=== PATIENT | female | born 1970 | race Hispanic/Latino ===

== ENCOUNTER 2017-09-25 19:10 | Emergency (ER) | payer OTHER ==
[2017-09-25 19:57] LABS: Urine Bacteria 20-50 /HPF (<20); Urine Culture Reflex Order REFLEXED
[2017-09-25 19:58] LABS: Urine Blood TRACE (NEG); Urine Glucose NEGATIVE (NEG); Urine Protein 2+ (NEG); Urine Specific Gravity 1.025 (1.005-1.030); Urine pH 5.5 (5.0-7.0)
[2017-09-25 19:59] LABS: Absolute Lymphocytes (CBC) 1.5 K/uL (0.7-4.9); Absolute Monocytes 0.6 K/uL (0.1-1.3); Absolute Neutrophil 4.8 K/uL (1.8-8.0); Basophils % 2.9 % (0-1.3); Eosinophils % 0.2 % (0-4.4); Hematocrit 32.9 % (36.0-45.0); Lymphocytes % 20.8 % (15.3-44.8); MCH 28.7 pg (27.0-35.0); MCV 85.7 fL (80-100); MPV 10.1 fL (7.6-11.3); Monocytes % 8.4 % (3.3-12.3); RBC Red Blood Cell Count 3.84 M/uL (3.86-4.86); Urine Mucus 4+ /HPF (NONE SEEN)
[2017-09-25 20:09] LABS: Bicarbonate 28 mEq/L (21-31); Glucose Level 168 mg/dL (65-120); Lipase 25 U/L (22-51); Potassium 3.1 mEq/L (3.6-5.0); Sodium Level 136 mEq/L (135-145)
[2017-09-25 20:15] LABS: ALT/SGPT 19 IU/L (10-60); AST/SGOT 21 IU/L (10-42); Albumin 4.5 g/dL (3.2-5.5); Alkaline Phosphatase 83 IU/L (42-121); Amylase Level 46 U/L (28-100); BUN Blood Urea Nitrogen 15 mg/dL (6-20); Bilirubin Direct < 0.1 mg/dL (0-0.2); Bilirubin Total 0.3 mg/dL (0.3-1.2); Protein, Total 8.3 g/dL (6.0-8.3)
[2017-09-25] MEDS ORDERED: ONDANSETRON 4 MG/2 ML VIAL ONE (20:16)
[2017-09-25] MEDS ORDERED: NA CHLORIDE 0.9% 1,000 ML ONE (20:16)
[2017-09-25] MEDS ORDERED: POTASSIUM CL SA 10 MEQ TAB PO ONE (21:42)
--- NOTE | 2017-09-25 22:11 | ER ---
Nurse's Notes [facility] Name: Roya Anne Age: 47 yrs Sex: Female : 1970 Arrival Date: 09/25/2017 Time: 19:13 Bed 17 Private MD: Olga Diallo Diagnosis: Vomiting;Diarrhea, unspecified Presentation: 09/25 19:15 Presenting complaint: Patient states: Patient reports vomiting diarrhea and chills for ao the past 3 days. 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 Patient also reports left side flank pain. Transition of care: patient was not received from another setting of care. Onset of symptoms was September 23, 2017. Risk Assessment: Do you want to hurt yourself or someone else? Patient reports no desire to harm self or others. Initial Sepsis Screen: Does the patient meet any 2 criteria? No. Patient's initial sepsis screen is negative. Does the patient have a suspected source of infection? No. Patient's initial sepsis screen is negative. Care prior to arrival: None. 19:15 Method Of Arrival: Ambulatory ao 19:15 Acuity: AGATA 3 ao Triage Assessment: 19:21 General: Appears in no apparent distress. uncomfortable, Behavior is calm, cooperative, ao appropriate for age. Pain: Complains of pain in left side flank. GI: Reports lower abdominal pain, nausea. 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 - Social history:: Smoking status: Patient/guardian denies using tobacco, Patient/guardian denies using alcohol, street drugs. - Ebola Screening: : Patient negative for fever greater than or equal to 101.5 degrees Fahrenheit, and additional compatible Ebola Virus Disease symptoms Patient denies exposure to infectious person Patient denies travel to an Ebola-affected area in the 21 days before illness onset. Screenin:55 Abuse screen: Denies threats or abuse. Denies injuries from another. Nutritional rv screening: No deficits noted. Tuberculosis screening: No symptoms or risk factors identified. Fall Risk None identified. Assessment: 19:51 General: Appears in no apparent distress. comfortable, Behavior is calm, cooperative, rv patient came in because of nausea and vomiting. having flank pain left side. reports having fever but undocumented. she came in ambulatory.. Pain: Complains of pain in left low back and left mid back. Neuro: Level of Consciousness is awake, alert, obeys commands, Oriented to person, place, time, situation. Cardiovascular: Capillary refill < 3 seconds. Respiratory: Airway is patent. GI: Reports nausea, vomiting. : Reports flank pain. EENT: No signs and/or symptoms were reported regarding the EENT system. Derm: Skin is intact. Musculoskeletal: No signs and/or symptoms reported regarding the musculoskeletal system. 21:54 Reassessment: patient is comfortable and asleep. GI: Abdomen is flat. rv 22:20 Reassessment: patient verbalizes improvement.. discontinued IV and patient is rv discharged. instructions explained and given. Vital Signs: 19:17 BP 120 / 76; Pulse 90; Resp 18; Temp 97.1(TE); Pulse Ox 99% on R/A; Weight 68.04 kg ao (R); Height 5 ft. 2 in. (157.48 cm) (R); Pain 6/10; 19:54 BP 138 / 82; Pulse 80; Resp 16; Pulse Ox 99% on R/A; rv 20:49 BP 122 / 62; Pulse 94; Resp 16; Pulse Ox 97% on R/A; rv 21:51 BP 103 / 62; Pulse 77; Resp 16; Pulse Ox 97% on R/A; rv 19:17 Body Mass Index 27.44 (68.04 kg, 157.48 cm) ao ED Course: 19:13 Patient arrived in ED. es 19:13 Olga Diallo MD is Private Physician. es 19:17 Triage completed. ao 19:20 Ron Petersen MD is Attending Physician. tw4 19:21 Arm band placed on right wrist. Patient placed in an exam room, on a stretcher, on ao oxygen, on pulse oximetry, Patient notified of wait time. 19:25 Clifford Quintanilla, CHARLEY is Primary Nurse. bp 19:55 Patient has correct armband on for positive identification. Placed in gown. Bed in low rv position. Call light in reach. Side rails up X 1. Adult w/ patient. Pulse ox on. NIBP on. 19:55 Inserted saline lock: 20 gauge in right antecubital area, using aseptic technique. rv 22:10 Olga Diallo MD is Referral Physician. tw4 22:21 No provider procedures requiring assistance completed. IV discontinued, intact, rv bleeding controlled, No redness/swelling at site. Pressure dressing applied. Administered Medications: 20:18 Drug: Zofran 4 mg Route: IVP; Site: right antecubital; rv 21:06 Follow up: Response: No adverse reaction; Nausea is decreased rv 20:18 Drug: NS 0.9% 1000 ml Route: IV; Rate: 1 bolus; Site: right antecubital; rv 21:50 Drug: Potassium Chloride 40 mEq Route: PO; rv 22:22 Follow up: Response: No adverse reaction rv Outcome: 22:11 Discharge ordered by . tw4 22:21 Discharged to home ambulatory. rv 22:21 Condition: improved 22:21 Discharge instructions given to patient, Instructed on discharge instructions. 22:23 Patient left the ED. rv Addendum: 09/28/2017 17:16 Addendum: Culture Results: Positive urine culture. No further action required. Other: s s Pt has no complaints of urinary s/s. Signatures: Linda Barclay Shelby, RN RN ss Ortiz, Alex, RN RN ao Peltier, Brian, RN RN bp Wadley, Terrence, MD MD tw4 Mao Dial RN RN rv Corrections: (The following items were deleted from the chart) 09/25 19:19 19:15 Presenting complaint: Patient states: Patient reports vomiting diarrhea and ao chills for the past 3 days. 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
--- NOTE | 2017-09-25 22:11 | EDPHYS ---
Physician Documentation [facility] Name: Roya Anne Age: 47 yrs Sex: Female : 1970 Arrival Date: 09/25/2017 Time: 19:13 Bed 17 Private MD: Olga Diallo ED Physician Ron Petersen HPI: 09/25 21:03 This 47 yrs old Female presents to ER via Ambulatory with complaints of tw4 Vomiting/Diarrhea, Chills. 21:03 The patient presents to the emergency department with nausea, vomiting. Onset: The tw4 symptoms/episode began/occurred today. Possible causes: unknown. The symptoms are aggravated by nothing. The symptoms are alleviated by nothing. Associated signs and symptoms: The patient has no apparent associated signs or symptoms. Severity of symptoms: At their worst the symptoms were moderate in the emergency department the symptoms are unchanged. The patient has not experienced similar symptoms in the past. 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 - Social history:: Smoking status: Patient/guardian denies using tobacco, Patient/guardian denies using alcohol, street drugs. - Ebola Screening: : Patient negative for fever greater than or equal to 101.5 degrees Fahrenheit, and additional compatible Ebola Virus Disease symptoms Patient denies exposure to infectious person Patient denies travel to an Ebola-affected area in the 21 days before illness onset. ROS: 21:03 Constitutional: Negative for fever, chills, and weight loss, Cardiovascular: Negative tw4 for chest pain, palpitations, and edema, Respiratory: Negative for shortness of breath, cough, wheezing, and pleuritic chest pain, Abdomen/GI: Negative for abdominal pain, nausea, vomiting, diarrhea, and constipation, Back: Negative for injury and pain, Skin: Negative for injury, rash, and discoloration, Neuro: Negative for headache, weakness, numbness, tingling, and seizure. Exam: 21:03 Constitutional: This is a well developed, well nourished patient who is awake, alert, tw4 and in no acute distress. Chest/axilla: Normal chest wall appearance and motion. Nontender with no deformity. No lesions are appreciated. Cardiovascular: Regular rate and rhythm with a normal S1 and S2. No gallops, murmurs, or rubs. Normal PMI, no JVD. No pulse deficits. Respiratory: Lungs have equal breath sounds bilaterally, clear to auscultation and percussion. No rales, rhonchi or wheezes noted. No increased work of breathing, no retractions or nasal flaring. Abdomen/GI: Soft, non-tender, with normal bowel sounds. No distension or tympany. No guarding or rebound. No evidence of tenderness throughout. MS/ Extremity: Pulses equal, no cyanosis. Neurovascular intact. Full, normal range of motion. Neuro: Awake and alert, GCS 15, oriented to person, place, time, and situation. Cranial nerves II-XII grossly intact. Motor strength 5/5 in all extremities. Sensory grossly intact. Cerebellar exam normal. Normal gait. Vital Signs: 19:17 BP 120 / 76; Pulse 90; Resp 18; Temp 97.1(TE); Pulse Ox 99% on R/A; Weight 68.04 kg ao (R); Height 5 ft. 2 in. (157.48 cm) (R); Pain 6/10; 19:54 BP 138 / 82; Pulse 80; Resp 16; Pulse Ox 99% on R/A; rv 20:49 BP 122 / 62; Pulse 94; Resp 16; Pulse Ox 97% on R/A; rv 21:51 BP 103 / 62; Pulse 77; Resp 16; Pulse Ox 97% on R/A; rv 19:17 Body Mass Index 27.44 (68.04 kg, 157.48 cm) ao MDM: 19:49 Patient medically screened. tw4 09/26 00:57 Differential diagnosis: Nonspecific abd pain, gastritis. Data reviewed: vital signs, tw4 nurses notes. Counseling: I had a detailed discussion with the patient and/or guardian regarding: the historical points, exam findings, and any diagnostic results supporting the discharge/admit diagnosis, lab results. Special discussion: I discussed with the patient/guardian in detail that at this point there is no indication for admission to the hospital. It is understood, however, that if the symptoms persist or worsen the patient needs to return immediately for re-evaluation. 09/25 19:20 Order name: Amylase, Serum; Complete Time: 20:54 tw4 09/25 19:20 Order name: Basic Metabolic Panel; Complete Time: 20:54 tw4 09/25 21:36 Interpretation: Normal except: K 3.1; GLUC 168; GFR 72. tw4 09/25 19:20 Order name: CBC with Diff; Complete Time: 20:54 tw4 09/25 21:36 Interpretation: Normal except: RBC 3.84; HGB 11.0; HCT 32.9; MCV 85.7; MCH 28.7; RDW tw4 15.5; BASO% 2.9. 09/25 19:20 Order name: Creatinine for Radiology; Complete Time: 20:54 tw4 09/25 19:20 Order name: Hepatic Function; Complete Time: 20:54 tw4 09/25 21:36 Interpretation: Normal except: GLOB 3.8. tw4 09/25 19:20 Order name: Lipase; Complete Time: 20:54 tw4 09/25 19:20 Order name: Urine Microscopic Only; Complete Time: 20:54 tw4 09/25 19:20 Order name: IV Saline Lock; Complete Time: 20:05 tw4 09/25 19:53 Order name: Urine Dipstick--Ancillary (enter results); Complete Time: 20:54 ms 09/25 21:36 Interpretation: Normal except: UKET 1+; UBLD TRACE; UPROT 2+; UESTR TRACE. tw4 09/25 19:53 Order name: Urine --Ancillary (enter results); Complete Time: 20:54 ms 09/25 20:00 Order name: Urine Culture EDGA 09/25 19:20 Order name: Labs collected and sent; Complete Time: 20:11 tw4 09/25 19:20 Order name: Urine Dipstick-Ancillary (obtain specimen); Complete Time: 20:12 tw4 Administered Medications: 09/25 20:18 Drug: Zofran 4 mg Route: IVP; Site: right antecubital; rv 21:06 Follow up: Response: No adverse reaction; Nausea is decreased rv 20:18 Drug: NS 0.9% 1000 ml Route: IV; Rate: 1 bolus; Site: right antecubital; rv 21:50 Drug: Potassium Chloride 40 mEq Route: PO; rv 22:22 Follow up: Response: No adverse reaction rv Disposition: 09/25/17 22:11 Discharged to Home. Impression: Vomiting, Diarrhea, unspecified. - Condition is Stable. - Discharge Instructions: Diarrhea, Nausea and Vomiting, Nausea and Vomiting, [id number]. - Prescriptions for Zofran 4 mg Oral Tablet - take 1 tablet by ORAL route every 12 hours As needed; 20 tablet. Lomotil 2.5- 0.025 mg Oral Tablet - take 2 tablet by ORAL route once daily As needed; 20 tablet. - Medication Reconciliation Form, Thank You Letter, Antibiotic Education, Prescription Opioid Use form. - Follow up: Olga Diallo MD; When: As needed; Reason: If symptoms return, Recheck today's complaints, Continuance of care, Re-evaluation by your physician. - Problem is new. - Symptoms have improved. Signatures: Dispatcher [employer] Sher Escamilla, RN RN Clifford Galloway RN RN Ron Tirado MD MD tw4 Mao Dial RN RN rv Corrections: (The following items were deleted from the chart) 22:23 22:11 09/25/2017 22:11 Discharged to Home. Impression: Vomiting; Diarrhea, unspecified. rv Condition is Stable. Forms are Medication Reconciliation Form, Thank You Letter, Antibiotic Education, Prescription Opioid Use. Follow up: Olga Diallo; When: As needed; Reason: If symptoms return, Recheck today's complaints, Continuance of care, Re-evaluation by your physician. Problem is new. Symptoms have improved. tw4
[2017-09-25 22:26] VITALS: TEMP 97.1
[2017-09-25 22:29] VITALS: O2SAT 97
[2017-09-25 22:30] VITALS: BP 103/62
== END 2017-09-25 22:23 | disposition home or self-care (01) ==
LOC: ER 19:10
DX: R19.7 Diarrhea, unspecified (principal); I10 Essential (primary) hypertension; E11.9 Type 2 diabetes mellitus without complications; F31.9 Bipolar disorder, unspecified; Z79.4 Long term (current) use of insulin
CPT/HCPCS: 36415; 80048; 80076; 81025; 82150; 83690; 85025; 87077; 87086; 87088; 87186; 96374; 99284; J2405; J7030; 81003; 81015

== ENCOUNTER 2017-11-04 06:58 | Emergency (ER) | payer OTHER ==
[2017-11-04] MEDS ORDERED: NA CHLORIDE 0.9% 1,000 ML ONE ×2 (07:29→07:50)
[2017-11-04] MEDS ORDERED: ONDANSETRON 4 MG/2 ML VIAL ONE (07:29)
[2017-11-04 07:39] LABS: Absolute Lymphocytes (CBC) 0.6 K/uL (0.7-4.9); Absolute Monocytes 0.2 K/uL (0.1-1.3); Absolute Neutrophil 8.3 K/uL (1.8-8.0); Basophils % 0.4 % (0-1.3); Eosinophils % 0.1 % (0-4.4); Hematocrit 34.1 % (36.0-45.0); Lymphocytes % 6.9 % (15.3-44.8); MCH 27.6 pg (27.0-35.0); MCV 84.1 fL (80-100); MPV 11.2 fL (7.6-11.3); Monocytes % 2.6 % (3.3-12.3); RBC Red Blood Cell Count 4.05 M/uL (3.86-4.86)
[2017-11-04] MEDS ORDERED: PROMETHAZINE 25 MG/ML VIAL ONE (07:53)
[2017-11-04 07:55] LABS: ALT/SGPT 25 U/L (12-78); AST/SGOT 22 U/L (15-37); Albumin 4.3 g/dL (3.4-5.0); Alkaline Phosphatase 115 U/L (45-117); BUN Blood Urea Nitrogen 19 mg/dL (7-18); Bicarbonate 28 mmol/L (21-32); Bilirubin Direct 0.1 mg/dL (0-0.2); Bilirubin Total 0.4 mg/dL (0.2-1.0); Lipase 165 U/L (73-393); Potassium 3.5 mmol/L (3.5-5.1); Protein, Total 8.9 g/dL (6.4-8.2); Sodium Level 138 mmol/L (136-145)
[2017-11-04 07:58] LABS: Glucose Level 449 mg/dL (74-106)
[2017-11-04] MEDS ORDERED: METOCLOPRAMIDE 10 MG/2mL INJ ONE (08:42)
[2017-11-04 09:11] LABS: Urine Blood 1+ (NEG); Urine Glucose 2+ (NEG); Urine Protein NEGATIVE (NEG)
[2017-11-04] MEDS ORDERED: INSULIN -REGULAR HUMAN 50 UNIT/0.5 ML ML ONE (09:24)
[2017-11-04 10:24] LABS: Urine White Blood Cell Casts OK
[2017-11-04 10:25] LABS: Blood Morphology Comment NOT SEEN (NOT SEEN); Platelet Estimate ADEQ
--- NOTE | 2017-11-04 10:37 | ER ---
Nurse's Notes [facility] Name: Roya Anne Age: 47 yrs Sex: Female : 1970 Arrival Date: 11/04/2017 Time: 07:00 Bed 6 Private MD: Diagnosis: Gastroparesis;Hyperglycemia, unspecified Presentation: 11/04 07:02 Presenting complaint: EMS states: they were toned out for report of pt having elevated bb BGL and vomiting x 2 days. Transition of care: patient was not received from another setting of care. Onset of symptoms was November 02, 2017. Risk Assessment: Do you want to hurt yourself or someone else? Patient reports no desire to harm self or others. Initial Sepsis Screen: Does the patient meet any 2 criteria? No. Patient's initial sepsis screen is negative. Does the patient have a suspected source of infection? No. Patient's initial sepsis screen is negative. Care prior to arrival: Medication(s) given: zofran 4 mg. 07:02 Method Of Arrival: EMS: [facility] 07:02 Acuity: AGATA 3 bb Triage Assessment: 07:15 General: Appears uncomfortable, slender, Behavior is cooperative, anxious, restless. ae1 GI: Reports nausea, vomiting. Historical: - Allergies: 07:04 No Known Allergies; bb - Home Meds: 07:04 Seroquel Oral [Active]; Lyrica Oral [Active]; insulin [Active]; losartan Oral [Active]; bb - PMHx: 07:04 Anemia; Bipolar disorder; Diabetes - IDDM; Hypertension; neuropathy; Pancreatitis; bb Schizophrenia; - PSHx: 07:04 ; bb - Immunization history:: Adult Immunizations unknown. - Ebola Screening: : No symptoms or risks identified at this time. - Social history:: Smoking status: . Screenin:41 Abuse screen: Denies threats or abuse. Nutritional screening: No deficits noted. ae1 Tuberculosis screening: No symptoms or risk factors identified. Fall Risk None identified. Assessment: 07:15 General: Appears uncomfortable, slender, Behavior is cooperative, anxious, restless. ae1 Pain: Complains of pain in abdomen. Neuro: Level of Consciousness is awake, alert, obeys commands, Oriented to person, place, time, situation. Cardiovascular: Patient's skin is warm and dry. Respiratory: Airway is patent Respiratory effort is even, unlabored, Respiratory pattern is regular, symmetrical. Respiratory: Breath sounds are clear bilaterally. GI: GI: Abdomen is round Pt is actively vomiting Bowel sounds present X 4 quads. hyperactive in right lower quadrant and left lower quadrant. :. EENT: Oral mucosa is dry. Poor dentition noted. Derm: Skin is normal. Musculoskeletal: No signs and/or symptoms reported regarding the musculoskeletal system. 09:38 Reassessment: Patient and/or family updated on plan of care and expected duration. Pain ae1 level reassessed. Patient states she is feeling better and getting hungry. Per provider, no food, ice chips ok. Ice chips provided. Patient states feeling better. Patient states symptoms have improved. Vital Signs: 07:04 BP 122 / 101; Pulse 105; Resp 20 S; Temp 98.5(O); Pulse Ox 99% on R/A; Weight 68.04 kg bb (R); Height 5 ft. 2 in. (157.48 cm) (R); Pain 7/10; 08:13 BP 148 / 85; Pulse 102; Resp 20; Pulse Ox 98% on R/A; ae1 09:37 BP 142 / 62; Pulse 100; Resp 18; Pulse Ox 99% on R/A; ae1 07:04 Body Mass Index 27.44 (68.04 kg, 157.48 cm) bb ED Course: 07:00 Patient arrived in ED. am2 07:00 Cale Peter PA is PHCP. jr8 07:00 Javier Anne MD is Attending Physician. jr8 07:03 Triage completed. bb 07:04 Arm band placed on Patient placed in an exam room. bb 07:10 Hiram Turner, CHARLEY is Primary Nurse. ae1 07:32 Inserted saline lock: 22 gauge in right antecubital area, using aseptic technique. ae1 Blood collected. 07:41 Placed in gown. Bed in low position. Call light in reach. Side rails up X 1. Adult w/ ae1 patient. Pulse ox on. NIBP on. Warm blanket given. 10:48 No provider procedures requiring assistance completed. IV discontinued, intact, ae1 bleeding controlled, No redness/swelling at site. Pressure dressing applied. Administered Medications: 07:32 Drug: NS 0.9% 1000 ml Route: IV; Rate: 1000 ml; Site: right antecubital; ae1 10:50 Follow up: IV Status: Completed infusion ae1 07:32 Drug: Zofran 4 mg Route: IVP; Site: right antecubital; ae1 07:54 Follow up: Response: Nausea unchanged ae1 07:47 Drug: Phenergan 12.5 mg Route: IVP; Site: right antecubital; ae1 08:18 Follow up: Response: Nausea is decreased ae1 07:55 Drug: NS 0.9% 1000 ml Route: IV; Rate: 1000 ml; Site: right antecubital; ae1 10:50 Follow up: IV Status: Completed infusion ae1 08:37 Drug: Reglan 10 mg Route: IVP; Site: right antecubital; ae1 09:28 Follow up: Response: Pain is decreased ae1 08:42 CANCELLED (Duplicate Order): Reglan 10 mg IVP once; over 1 to 2 minutes ae1 09:21 Drug: Insulin Regular Human 10 units {Co-Signature: brook (Isaiah Porter RN).} Route: IVP; ae1 Site: right antecubital; 10:49 Follow up: Response: Blood sugar is lowered; 250 ae1 Point of Care Testing: Blood Glucose: 07:40 Blood Glucose: 422 mg/dL; ae1 09:15 Blood Glucose: 362 mg/dL; ae1 09:58 Blood Glucose: 339 mg/dL; ae1 10:45 Blood Glucose: 250 mg/dL; ae1 Ranges: Intake: Outcome: 10:37 Discharge ordered by MD. asher 10:48 Discharged to home ambulatory, with family. ae1 10:48 Condition: stable 10:48 Discharge instructions given to patient, Instructed on discharge instructions, follow up and referral plans. medication usage, Demonstrated understanding of instructions, Prescriptions given X 1. 10:50 Patient left the ED. ae1 Signatures: Erendira Kendrick RN RN bb Roszak, Josh, PA PA jrHiram Casey RN RN ae1 Delia Phillips am2 Isaiah doe
--- NOTE | 2017-11-04 10:37 | EDPHYS ---
Physician Documentation [facility] Name: Roya Anne Age: 47 yrs Sex: Female : 1970 Arrival Date: 11/04/2017 Time: 07:00 Bed 6 Private MD: ED Physician Javier Anne HPI: 11/04 07:27 This 47 yrs old Female presents to ER via EMS with complaints of jr8 Nausea/Vomiting, High Blood Sugar. 07:27 The patient presents to the emergency department with nausea, vomiting. Onset: The jr8 symptoms/episode began/occurred acutely, 2 day(s) ago, and became persistent. Possible causes: unknown. The symptoms are aggravated by nothing. The symptoms are alleviated by nothing. Associated signs and symptoms: The patient has no apparent associated signs or symptoms. Severity of symptoms: At their worst the symptoms were moderate in the emergency department the symptoms are unchanged. The patient has experienced a previous episode. The patient has not recently seen a physician. History of DKA. Stated that last time she had this she was doing the same thing . Historical: - Allergies: 07:04 No Known Allergies; bb - Home Meds: 07:04 Seroquel Oral [Active]; Lyrica Oral [Active]; insulin [Active]; losartan Oral [Active]; bb - PMHx: 07:04 Anemia; Bipolar disorder; Diabetes - IDDM; Hypertension; neuropathy; Pancreatitis; bb Schizophrenia; - PSHx: 07:04 ; bb - Immunization history:: Adult Immunizations unknown. - Ebola Screening: : No symptoms or risks identified at this time. - Social history:: Smoking status: . ROS: 07:27 Eyes: Negative for injury, pain, redness, and discharge, ENT: Negative for injury, jr8 pain, and discharge, Neck: Negative for injury, pain, and swelling, Cardiovascular: Negative for chest pain, palpitations, and edema, Respiratory: Negative for shortness of breath, cough, wheezing, and pleuritic chest pain, Back: Negative for injury and pain, MS/Extremity: Negative for injury and deformity, Skin: Negative for injury, rash, and discoloration, Neuro: Negative for headache, weakness, numbness, tingling, and seizure. 07:27 Abdomen/GI: Positive for nausea and vomiting, Negative for abdominal pain, diarrhea, constipation, abdominal distension, anorexia, dysphagia, hematemesis, black/tarry stool, rectal pain, rectal bleeding, bowel incontinence, flatulence. Exam: 07:27 Eyes: Pupils equal round and reactive to light, extra-ocular motions intact. Lids and jr8 lashes normal. Conjunctiva and sclera are non-icteric and not injected. Cornea within normal limits. Periorbital areas with no swelling, redness, or edema. ENT: Nares patent. No nasal discharge, no septal abnormalities noted. Tympanic membranes are normal and external auditory canals are clear. Oropharynx with no redness, swelling, or masses, exudates, or evidence of obstruction, uvula midline. Mucous membranes moist. Neck: Trachea midline, no thyromegaly or masses palpated, and no cervical lymphadenopathy. Supple, full range of motion without nuchal rigidity, or vertebral point tenderness. No Meningismus. Cardiovascular: Regular rate and rhythm with a normal S1 and S2. No gallops, murmurs, or rubs. Normal PMI, no JVD. No pulse deficits. Respiratory: Lungs have equal breath sounds bilaterally, clear to auscultation and percussion. No rales, rhonchi or wheezes noted. No increased work of breathing, no retractions or nasal flaring. Abdomen/GI: Soft, non-tender, with normal bowel sounds. No distension or tympany. No guarding or rebound. No evidence of tenderness throughout. Back: No spinal tenderness. No costovertebral tenderness. Full range of motion. Skin: Warm, dry with normal turgor. Normal color with no rashes, no lesions, and no evidence of cellulitis. MS/ Extremity: Pulses equal, no cyanosis. Neurovascular intact. Full, normal range of motion. Neuro: Awake and alert, GCS 15, oriented to person, place, time, and situation. Cranial nerves II-XII grossly intact. Motor strength 5/5 in all extremities. Sensory grossly intact. Cerebellar exam normal. Normal gait. Vital Signs: 07:04 BP 122 / 101; Pulse 105; Resp 20 S; Temp 98.5(O); Pulse Ox 99% on R/A; Weight 68.04 kg bb (R); Height 5 ft. 2 in. (157.48 cm) (R); Pain 7/10; 08:13 BP 148 / 85; Pulse 102; Resp 20; Pulse Ox 98% on R/A; ae1 09:37 BP 142 / 62; Pulse 100; Resp 18; Pulse Ox 99% on R/A; ae1 07:04 Body Mass Index 27.44 (68.04 kg, 157.48 cm) bb MDM: 07:00 Patient medically screened. [facility] 10:27 Data reviewed: vital signs, nurses notes, lab test result(s), and as a result, I will jr8 discharge patient. Data interpreted: Pulse oximetry: on room air is 99 %. Interpretation: normal. Counseling: I had a detailed discussion with the patient and/or guardian regarding: the historical points, exam findings, and any diagnostic results supporting the discharge/admit diagnosis, lab results, the need for outpatient follow up, a family practitioner, a aircraft inspector, to return to the emergency department if symptoms worsen or persist or if there are any questions or concerns that arise at home. Response to treatment: the patient's symptoms have markedly improved after treatment, patient is well hydrated. 11/04 07:11 Order name: Basic Metabolic Panel; Complete Time: 08:11 [facility] 11/04 07:11 Order name: CBC with Diff; Complete Time: 10:27 [facility] 11/04 07:11 Order name: Creatinine for Radiology; Complete Time: 08:05 [facility] 11/04 07:11 Order name: Hepatic Function; Complete Time: 08:11 11/04 07:11 Order name: Lipase; Complete Time: 08:11 11/04 07:11 Order name: Ketone, Serum; Complete Time: 08:11 [facility] 11/04 07:41 Order name: Urine Dipstick--Ancillary (enter results); Complete Time: 09: 11/04 07:41 Order name: Urine --Ancillary (enter results); Complete Time: 09: 11/04 07:47 Order name: CBC Smear Scan; Complete Time: 10:27 EDME 11/04 07:11 Order name: Urine Test (obtain specimen); Complete Time: 07:40 [facility] 11/04 07:11 Order name: IV Saline Lock; Complete Time: 07:32 11/04 07:11 Order name: Labs collected and sent; Complete Time: 07:27 [facility] 11/04 07:11 Order name: Urine Dipstick-Ancillary (obtain specimen); Complete Time: 07:40 [facility] 11/04 07:11 Order name: Glucose Level; Complete Time: 07:27 jr8 Administered Medications: 07:32 Drug: NS 0.9% 1000 ml Route: IV; Rate: 1000 ml; Site: right antecubital; ae1 10:50 Follow up: IV Status: Completed infusion ae1 07:32 Drug: Zofran 4 mg Route: IVP; Site: right antecubital; ae1 07:54 Follow up: Response: Nausea unchanged ae1 07:47 Drug: Phenergan 12.5 mg Route: IVP; Site: right antecubital; ae1 08:18 Follow up: Response: Nausea is decreased ae1 07:55 Drug: NS 0.9% 1000 ml Route: IV; Rate: 1000 ml; Site: right antecubital; ae1 10:50 Follow up: IV Status: Completed infusion ae1 08:37 Drug: Reglan 10 mg Route: IVP; Site: right antecubital; ae1 09:28 Follow up: Response: Pain is decreased ae1 08:42 CANCELLED (Duplicate Order): Reglan 10 mg IVP once; over 1 to 2 minutes ae1 09:21 Drug: Insulin Regular Human 10 units {Co-Signature: brook (Isaiah Porter RN).} Route: IVP; ae1 Site: right antecubital; 10:49 Follow up: Response: Blood sugar is lowered; 250 ae1 Point of Care Testing: Blood Glucose: 07:40 Blood Glucose: 422 mg/dL; ae1 09:15 Blood Glucose: 362 mg/dL; ae1 09:58 Blood Glucose: 339 mg/dL; ae1 10:45 Blood Glucose: 250 mg/dL; ae1 Ranges: Critical Glucose Levels:Adult <50 mg/dl or >400 mg/dl <40 mg/dl or >180 mg/dl Disposition: 11/04/17 10:37 Discharged to Home. Impression: Gastroparesis, Hyperglycemia, unspecified. - Condition is Stable. - Discharge Instructions: Hyperglycemia, Blood Glucose Monitoring, Adult. - Prescriptions for Zofran 4 mg Oral Tablet - take 1 tablet by ORAL route every 12 hours As needed; 20 tablet. - Medication Reconciliation Form, Thank You Letter, Antibiotic Education, Prescription Opioid Use form. - Follow up: Private Physician; When: 2 - 3 days; Reason: Recheck today's complaints, Continuance of care, Re-evaluation by your physician. - Problem is new. - Symptoms have improved. Addendum: 11/06/2017 06:37 Co-signature as Attending Physician, Javier Anne MD I agree with the assessment and c dc plan of care. Signatures: Dispatcher [employer] EDME Javier Anne MD MD cha Ballard, Brenda, RN RN bb Cale Peter PA PA jr8 Hiram Turner RN RN ae1 Isaiah Porter RN hj Corrections: (The following items were deleted from the chart) 11/04 08:42 08:41 Reglan 10 mg IVP once; over 1 to 2 minutes ordered. jr8 ae1 10:50 10:37 11/04/2017 10:37 Discharged to Home. Impression: Gastroparesis; Hyperglycemia, ae1 unspecified. Condition is Stable. Forms are Medication Reconciliation Form, Thank You Letter, Antibiotic Education, Prescription Opioid Use. Follow up: Private Physician; When: 2 - 3 days; Reason: Recheck today's complaints, Continuance of care, Re-evaluation by your physician. Problem is new. Symptoms have improved. jr8
[2017-11-04 10:54] VITALS: TEMP 98.5
[2017-11-04 10:56] VITALS: BP 142/62; O2SAT 99
== END 2017-11-04 10:50 | disposition home or self-care (01) ==
LOC: ER 06:58
DX: K31.84 Gastroparesis (principal); E11.43 Type 2 diabetes mellitus with diabetic autonomic (poly)neuropathy; E11.65 Type 2 diabetes mellitus with hyperglycemia; I10 Essential (primary) hypertension; F31.9 Bipolar disorder, unspecified; Z79.4 Long term (current) use of insulin
CPT/HCPCS: 36415; 80048; 80076; 81003; 81025; 82010; 82962 ×4; 83690; 85025; 96361; 96374; 96375; 99284; J2405; J2550; J2765; J7030 ×2

== ENCOUNTER 2018-01-20 13:21 | Inpatient (IN) | payer OTHER ==
[2018-01-20] MEDS ORDERED: NA CHLORIDE 0.9% 1,000 ML ONE (14:24)
[2018-01-20] MEDS ORDERED: INSULIN -REGULAR HUMAN 50 UNIT/0.5 ML ML ONE (14:24)
[2018-01-20 14:34] LABS: Absolute Lymphocytes (CBC) 0.8 K/uL (0.7-4.9); Absolute Monocytes 0.4 K/uL (0.1-1.3); Absolute Neutrophil 5.1 K/uL (1.8-8.0); Basophils % 0.5 % (0-1.3); Eosinophils % 0.8 % (0-4.4); Hematocrit 28.4 % (36.0-45.0); Lymphocytes % 12.9 % (15.3-44.8); MCH 26.7 pg (27.0-35.0); MCV 82.5 fL (80-100); MPV 9.4 fL (7.6-11.3); Monocytes % 6.7 % (3.3-12.3); RBC Red Blood Cell Count 3.44 M/uL (3.86-4.86)
[2018-01-20 15:00] LABS: Potassium 4.1 mmol/L (3.5-5.1)
--- NOTE | 2018-01-20 15:14 | RAD REPORT ---
EXAM DESCRIPTION: US - BREAST/AXILLA, LIMITED - 01/20/2018 3:05 pm CLINICAL HISTORY: Left breast pain COMPARISON: BREAST/AXILLA, LIMITED dated 03/16/2017 FINDINGS: Full left breast sonography was performed including all 4 quadrants and the retroareolar r egion. Irregular lesion measuring 4.7 x 3.8 x 3.5 cm is seen retroareolar left breast. Adjacent skin thicken ing to 3 mm is noted. Blood flow is seen surrounding the lesion. In the correct clinical scenario, th is could represent an abscess. Correlation with clinical signs and symptoms is recommended. After venita ropriate therapy/treatment, the left breast should be reimaged to ensure that a mass is not present.
--- NOTE | 2018-01-20 15:20 | EDPHYS ---
Physician Documentation [facility] Name: Roya Anne Age: 47 yrs Sex: Female : 1970 Arrival Date: 01/20/2018 Time: 13:24 Bed 20 Private MD: Olga Diallo ED Physician Melo Small HPI: 01/20 15:25 This 47 yrs old Female presents to ER via Ambulatory with complaints of snw Abscess. 15:25 The patient presents with an abscess of the right breast, The patient presents with snw cellulitis of the right breast. Description: The affected area is moderate sized, large, well demarcated, erythematous, swollen, tense, warm. Onset: The symptoms/episode began/occurred gradually, 3 day(s) ago, and became worse and became persistent. Associated signs and symptoms: The patient has no apparent associated signs or symptoms. Severity of symptoms: At their worst the symptoms were moderate. The patient has experienced similar episodes in the past. The patient has not recently seen a physician, the patient's primary care provider is Dr. Dr. Diallo. denies fever, blood sugar elevated to near 500 but pt states that is lowish for her. 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 - Social history:: Smoking status: Patient/guardian denies using tobacco. - Ebola Screening: : No symptoms or risks identified at this time. ROS: 15:23 Constitutional: Negative for fever, chills, and weight loss, Eyes: Negative for injury, snw pain, redness, and discharge, ENT: Negative for injury, pain, and discharge, Neck: Negative for injury, pain, and swelling, Cardiovascular: Negative for chest pain, palpitations, and edema, Respiratory: Negative for shortness of breath, cough, wheezing, and pleuritic chest pain, Abdomen/GI: Negative for abdominal pain, nausea, vomiting, diarrhea, and constipation, Back: Negative for injury and pain, MS/Extremity: Negative for injury and deformity, Neuro: Negative for headache, weakness, numbness, tingling, and seizure, Psych: Negative for depression, anxiety, suicide ideation, homicidal ideation, and hallucinations. 15:23 Skin: Positive for abscess, cellulitis, of the right breast. Exam: 15:22 Constitutional: This is a well developed, well nourished patient who is awake, alert, snw and in no acute distress. Head/Face: Normocephalic, atraumatic. Eyes: Pupils equal round and reactive to light, extra-ocular motions intact. Lids and lashes normal. Conjunctiva and sclera are non-icteric and not injected. Cornea within normal limits. Periorbital areas with no swelling, redness, or edema. ENT: Nares patent. No nasal discharge, no septal abnormalities noted. Tympanic membranes are normal and external auditory canals are clear. Oropharynx with no redness, swelling, or masses, exudates, or evidence of obstruction, uvula midline. Mucous membranes moist. Neck: Trachea midline, no thyromegaly or masses palpated, and no cervical lymphadenopathy. Supple, full range of motion without nuchal rigidity, or vertebral point tenderness. No Meningismus. Chest/axilla: Normal chest wall appearance and motion. Nontender with no deformity. No lesions are appreciated. right breast with tender, firm abscess distal and lateral to nipple with overlying cellulitis Cardiovascular: Regular rate and rhythm with a normal S1 and S2. No gallops, murmurs, or rubs. Normal PMI, no JVD. No pulse deficits. Respiratory: Lungs have equal breath sounds bilaterally, clear to auscultation and percussion. No rales, rhonchi or wheezes noted. No increased work of breathing, no retractions or nasal flaring. Abdomen/GI: Soft, non-tender, with normal bowel sounds. No distension or tympany. No guarding or rebound. No evidence of tenderness throughout. Back: No spinal tenderness. No costovertebral tenderness. Full range of motion. Skin: Warm, dry with normal turgor. Normal color with no rashes, no lesions, and no evidence of cellulitis. MS/ Extremity: Pulses equal, no cyanosis. Neurovascular intact. Full, normal range of motion. Neuro: Awake and alert, GCS 15, oriented to person, place, time, and situation. Cranial nerves II-XII grossly intact. Motor strength 5/5 in all extremities. Sensory grossly intact. Cerebellar exam normal. Normal gait. Vital Signs: 13:46 BP 106 / 68; Pulse 96; Resp 18 S; Temp 98.7(TE); Pulse Ox 98% on R/A; Weight 68.04 kg aa5 (R); Height 5 ft. 2 in. (157.48 cm) (R); Pain 10/10; 16:03 BP 129 / 73; Pulse 97; Resp 16; Pulse Ox 99% on R/A; aj 13:46 Body Mass Index 27.44 (68.04 kg, 157.48 cm) aa5 MDM: 14:07 Patient medically screened. snw 15:24 Data reviewed: vital signs, nurses notes. Data interpreted: Pulse oximetry: on room air snw is 98 %. Interpretation: normal. Counseling: I had a detailed discussion with the patient and/or guardian regarding: the historical points, exam findings, and any diagnostic results supporting the discharge/admit diagnosis, lab results, radiology results, the need for further work-up and treatment in the hospital. Physician consultation: Neelam Dhaliwal MD was called at 15:24, was contacted at 15:24, regarding admission, to the telemetry unit. to the medical/surgical unit. would like medications started, Zosyn. 01/20 14:16 Order name: Blood Culture Adult (2) sn 01/20 14:16 Order name: CBC with Diff; Complete Time: 14:38 snw 01/20 14:16 Order name: Chem 7; Complete Time: 15:11 snw 01/20 15:08 Order name: Urine Culture [facility] 01/20 15:09 Order name: Urine Dipstick--Ancillary (enter results) eb 01/20 15:22 Order name: Glucose, Ancillary Testing; Complete Time: 15:26 EDMS 01/20 14:36 Order name: BREAST/AXILLA, LIMITED; Complete Time: 15:16 EDMS 01/20 14:16 Order name: FSBS; Complete Time: 14:32 snw Administered Medications: 14:30 Drug: Insulin Regular Human 5 units {Co-Signature: em (Vimal Meléndez ELECTRIC TAPE SLITTER).} Route: IVP; aj Site: right forearm; 14:31 Drug: Insulin Regular Human 5 units {Co-Signature: dm5 (Blossom Carter RN).} Route: aj Sub-Q; Site: right upper arm; 15:18 CANCELLED (other intervention used): Rocephin 1 grams IV at calculated rate once; Given snw slow IV push per pharmacy instructions 15:52 Drug: Zosyn 3.375 grams Route: IVPB; Infused Over: 60 mins; Site: left hand; 15:52 Drug: fentaNYL (PF) 25 mcg Route: IVP; Site: left hand; 16:21 Follow up: Response: Pain is decreased Disposition: 17:28 Co-signature as Attending Physician, Melo Small MD. rn Disposition: 01/20/18 15:20 Hospitalization ordered by Neelam Dhaliwal for Inpatient Admission. Preliminary diagnosis are Diabetes mellitus due to underlying condition with hyperglycemia, Breast abscess with cellulitis. - Bed requested for Telemetry/MedSurg (Inpatient). - Status is Inpatient Admission. aj - Condition is Stable. - Problem is an acute exacerbation. - Symptoms have worsened. UTI on Admission? Yes Signatures: Dispatcher [employer] EDHI Trinidad Sneed RN RN dw Myers, Amanda, RN RN aj Therrien, Shelly, ELECTRIFICATION ADVISER-C ELECTRIFICATION ADVISER-Csnw Melo Small MD MD rn Calderon, Audri RN RN aa5 Linn Manzanares RN dm5 Vimal Meléndez LVN em Corrections: (The following items were deleted from the chart) 14:36 14:33 Extrmty Nonvasular Limited+US.RAD.BRZ ordered. EDHI EDHI 15:18 15:08 Rocephin 1 grams IV at calculated rate once; Given slow IV push per pharmacy snw instructions ordered. snw 15:30 15:20 Hospitalization Ordered by Neelam Dhaliwal MD for Inpatient Admission. Preliminary eb diagnosis is Diabetes mellitus due to underlying condition with hyperglycemia; Breast abscess with cellulitis. Bed requested for Telemetry/MedSurg (Inpatient). Status is Inpatient Admission. Condition is Stable. Problem is an acute exacerbation. Symptoms have worsened. UTI on Admission? Yes. snw 15:33 15:30 01/20/2018 15:20 Hospitalization Ordered by Neelam Dhaliwal MD for Inpatient dw Admission. Preliminary diagnosis is Diabetes mellitus due to underlying condition with hyperglycemia; Breast abscess with cellulitis. Bed requested for Telemetry/MedSurg (Inpatient). Status is Inpatient Admission. Condition is Stable. Problem is an acute exacerbation. Symptoms have worsened. UTI on Admission? Yes. eb 16:29 15:33 01/20/2018 15:20 Hospitalization Ordered by Neelam Dhaliwal MD for Inpatient aj Admission. Preliminary diagnosis is Diabetes mellitus due to underlying condition with hyperglycemia; Breast abscess with cellulitis. Bed requested for Telemetry/MedSurg (Inpatient). Status is Inpatient Admission. Condition is Stable. Problem is an acute exacerbation. Symptoms have worsened. UTI on Admission? Yes. dw
--- NOTE | 2018-01-20 15:20 | ER ---
Nurse's Notes [facility] Name: Roya Anne Age: 47 yrs Sex: Female : 1970 Arrival Date: 01/20/2018 Time: 13:24 Bed 20 Private MD: Olga Diallo Diagnosis: Diabetes mellitus due to underlying condition with hyperglycemia;Breast abscess with cellulitis Presentation: 01/20 13:45 Presenting complaint: Patient states: R breast abscess. Pt states "I've had it before aa5 and they do surgery on it and last time was about a year ago". Transition of care: patient was not received from another setting of care. Onset of symptoms was January 17, 2018. Risk Assessment: Do you want to hurt yourself or someone else? Patient reports no desire to harm self or others. Initial Sepsis Screen: Does the patient meet any 2 criteria? No. Patient's initial sepsis screen is negative. Does the patient have a suspected source of infection? No. Patient's initial sepsis screen is negative. Care prior to arrival: None. 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 - Social history:: Smoking status: Patient/guardian denies using tobacco. - Ebola Screening: : No symptoms or risks identified at this time. Screenin:32 Abuse screen: Denies threats or abuse. Denies injuries from another. Nutritional aj screening: No deficits noted. Tuberculosis screening: No symptoms or risk factors identified. Fall Risk None identified. Assessment: 14:32 General: Appears in no apparent distress. comfortable, Behavior is calm, cooperative, aj appropriate for age. Pain: Complains of pain in right breast. Neuro: Level of Consciousness is awake, alert, obeys commands, Oriented to person, place, time, situation, Appropriate for age. Respiratory: Airway is patent Respiratory effort is even, unlabored, Respiratory pattern is regular, symmetrical. GI: Abdomen is non-distended, obese. :. Derm: Skin is intact, is healthy with good turgor, Skin is pink, warm \\T\\ dry. normal, Redness and inflammation to right inner breast and nipple area. Vital Signs: 13:46 BP 106 / 68; Pulse 96; Resp 18 S; Temp 98.7(TE); Pulse Ox 98% on R/A; Weight 68.04 kg aa5 (R); Height 5 ft. 2 in. (157.48 cm) (R); Pain 10/10; 16:03 BP 129 / 73; Pulse 97; Resp 16; Pulse Ox 99% on R/A; aj 13:46 Body Mass Index 27.44 (68.04 kg, 157.48 cm) aa5 ED Course: 13:24 Patient arrived in ED. mr 13:24 Olga Diallo MD is Private Physician. mr 13:46 Triage completed. aa5 13:46 Arm band placed on. aa5 13:53 [facility] snw 13:53 Melo Small MD is Attending Physician. snw 13:56 Delia Anguiano, CHARLEY is Primary Nurse. aj 14:32 Patient has correct armband on for positive identification. Placed in gown. Bed in low aj position. Call light in reach. 14:32 Missed attempt(s): 20 gauge in right antecubital area. 22 gauge in left forearm. aj Bleeding controlled, band aid applied, catheter tip intact. 14:41 Radiology exam delayed due to IV insertion attempt and/or patient not having cy appropriate IV at this time. 14:44 Second set of blood cultures drawn by me. Missed attempt(s): 20 gauge in left dh3 antecubital area. Bleeding controlled, band aid applied, catheter tip intact. 14:54 Inserted saline lock: 24 gauge in left hand, using aseptic technique. dh3 14:57 Urine collected: clean catch specimen, cloudy. dh3 15:06 BREAST/AXILLA, LIMITED In Process Unspecified. EDMS 15:18 Neelam Dhaliwal MD is Hospitalizing Provider. snw 16:03 Inserted saline lock: 20 gauge in right EJ, using aseptic technique. aj 16:03 No provider procedures requiring assistance completed. Patient admitted, IV remains in aj place. intact. Administered Medications: 14:30 Drug: Insulin Regular Human 5 units {Co-Signature: em (Vimal Meléndez MEAT INSPECTOR).} Route: IVP; aj Site: right forearm; 14:31 Drug: Insulin Regular Human 5 units {Co-Signature: akil (Blossom Carter RN).} Route: aj Sub-Q; Site: right upper arm; 15:18 CANCELLED (other intervention used): Rocephin 1 grams IV at calculated rate once; Given snw slow IV push per pharmacy instructions 15:52 Drug: Zosyn 3.375 grams Route: IVPB; Infused Over: 60 mins; Site: left hand; aj 15:52 Drug: fentaNYL (PF) 25 mcg Route: IVP; Site: left hand; aj 16:21 Follow up: Response: Pain is decreased titus Outcome: 15:20 Decision to Hospitalize by Provider. snw 16:20 Admitted to Med/surg accompanied by tech, via wheelchair, room 212, Report called to titus [place] 16:20 Condition: good 16:20 Instructed on the need for admit. 16:29 Patient left the ED. titus Signatures: Dispatcher [employer] Delia Loaiza, RN RN Natasha Penaloza, RISK CONTROL REPRESENTATIVE-C RISK CONTROL REPRESENTATIVE-Csnw Siria Ferreira mr Noni Zamora, RN RN [facility] Ailyn Rocha Blossom [facility] em
[2018-01-20] MEDS ORDERED: FENTANYL CITR 100 MCG/2 ML ONE (15:49)
[2018-01-20] MEDS ORDERED: PIPER/TAZO/NS 3.375gm 3.375 GM/100 ML BAG ONE (15:50)
[2018-01-20] MEDS ORDERED: ACETAMINOPHEN 500 MG TAB PO PRN (16:40)
[2018-01-20] MEDS ORDERED: INSULIN -REGULAR HUMAN 50 UNIT/0.5 ML ML SQ SCH (16:40)
[2018-01-20] MEDS ORDERED: D50W 25 GM/50 ML SYRINGE IV PRN (16:47)
[2018-01-20] MEDS ORDERED: GLUCAGON 1 MG/VIAL IM PRN (16:47)
[2018-01-20] MEDS ORDERED: INFLUENZA VACCINE (for 3y+) 0.5 ML DOSE IMVAC ONE (17:00)
[2018-01-20 17:03] VITALS: BMI 27.4
[2018-01-20 17:23] LABS: Urine Blood 2+ (NEG); Urine Glucose 3+ (NEG); Urine Protein NEGATIVE (NEG); Urine Specific Gravity 1.005 (1.005-1.030); Urine pH 5.5 (5.0-7.0)
[2018-01-20] MEDS: NA CHLORIDE 0.9% 1,000 ML IV SCH (17:34)
[2018-01-20] MEDS: VANCOMYCIN 1.25 GM in NA CHLORIDE 0.9% 250 ML IVPB SCH (17:34)
[2018-01-20] MEDS: MORPHINE 4 MG/ML SYR IV PRN ×2 (17:46→22:40)
--- NOTE | 2018-01-20 17:54 | P.HP ---
Certification for Inpatient Patient admitted to: Inpatient With expected LOS: >2 Midnights Patient will require the following post-hospital care: None Practitioner: I am a practitioner with admitting privileges, knowledge of patient current condition, hospital course, and medical plan of care. Services: Services provided to patient in accordance with Admission requirements found in Title 42 Section 412.3 of the Code of Federal Regulations Patient History Date of Service: 01/22/18 Primary Care Provider: None Reason for admission: Breast abscess History of Present Illness: 47-year-old female with significant past medical history who presented to the ED complaining of having cellulitis on the right breast. Patient stated that she has similar episode about a year ago where she had noted that she was having some erythema and purulent discharge coming out of her breast at that time she did come to the hospital and had incision and drainage done with general surgery. Patient at that time and recovered well and had a mammogram done postprocedure as well to rule out any malignant lesions. At this time around patient stated that she was noticing similar symptoms and thus decided to come to the ER. Patient in the ER was found to have breast abscess that was in the rated without any opening. Thus was admitted to the hospital for further workup. Allergies No Known Allergies Allergy (Verified 03/29/17 16:06) Home Medications: Albuterol Sulfate [Proair Hfa] 1 puff IN BID 01/20/18 Atorvastatin Calcium [Lipitor] 40 mg PO BEDTIME 01/20/18 Chromium Picolinate 1,000 mcg PO DAILY 01/20/18 Dexlansoprazole [Dexilant] 60 mg PO DAILY 01/20/18 Insulin 70/30 NPH/Reg Human [Novolin 70/30*] 35 units SQ BIDWM 01/20/18 Linaclotide [Linzess] 290 mcg PO DAILY 01/20/18 Lysine 500 mg PO BEDTIME 01/20/18 Ondansetron HCl [Zofran] 4 mg PO DAILY PRN 01/20/18 Pantoprazole [Protonix Tab*] 40 mg PO DAILY 01/20/18 Pregabalin [Lyrica*] 100 mg PO TID 01/20/18 Quetiapine Fumarate [Seroquel] 300 mg PO BID 01/20/18 Zolpidem Tartrate 10 mg PO BEDTIME 01/20/18 Ciprofloxacin HCl [Cipro 500 MG Tablet] 500 mg PO DAILY #14 tab 01/22/18 Doxycycline Hyclate [Vibramycin] 100 mg PO BID #28 capsule 01/22/18 - Past Medical/Surgical History Has patient received pneumonia vaccine in the past: No Diabetic: Yes -: Bipolar Disorder -: Schizophrenia -: Diabetes mellitus type 2 -: Hyperlipidemia -: Chronic constipation -: Insomnia -: Tobacco abuse -: THC abuse -: pancreatitis -: TB -: Cataract removal -: Cholecystectomy -: x 3 Psychosocial/ Personal History: Patient lives at home. She does not work. She is disabled due to her mental illness. - Family History Mother -: Diabetes - Social History Smoking Status: Current some day smoker Alcohol use: No CD- Drugs: No Caffeine use: Yes Place of Residence: Home Review of Systems 10-point ROS is otherwise unremarkable Physical Examination - Vital Signs Temperature: 98.7 F Blood Pressure: 129/73 Pulse: 97 Respirations: 16 - Physical Exam General: Alert, In no apparent distress HEENT: Atraumatic, PERRLA, Mucous membr. moist/pink, EOMI, Sclerae nonicteric Neck: Supple, 2+ carotid pulse no bruit, No LAD, Without JVD or thyroid abnormality Respiratory: Clear to auscultation bilaterally, Normal air movement Cardiovascular: Regular rate/rhythm, Normal S1 S2 Gastrointestinal: Normal bowel sounds, No tenderness Musculoskeletal: No tenderness Integumentary: No rashes Neurological: Normal gait, Normal speech, Normal strength at 5/5 x4 extr, Normal tone, Normal affect Lymphatics: No axilla or inguinal lymphadenopathy - Studies Laboratory Data (last 24 hrs) 01/20/18 14:12: Sodium 135 L, Potassium 4.1, BUN 14, Creatinine 1.00, Glucose 453 H* 01/20/18 14:12: WBC 6.5, Hgb 9.2 L, Hct 28.4 L, Plt Count 190 Female Exam - Breasts Breasts: Other (right breast with Cellulitis and Induration retroareola noted. Tenderness and Erythema as well) Assessment and Plan - Problems (Diagnosis) (1) Cellulitis Status: Acute Plan: Cellulitis of the breast -IV vanc and zosyn Qualifiers: Site of cellulitis: other site Qualified Code(s): L03.818 - Cellulitis of other sites (2) Breast abscess Status: Acute Plan: Breast Abscess noted on the CT -IV vanc and zosyn -General Surgery consulted. -NPO after MD -OR procedure herlinda -Wound culture (3) Hyperlipidemia Status: Chronic Qualifiers: Hyperlipidemia type: unspecified Qualified Code(s): E78.5 - Hyperlipidemia , unspecified (4) Diabetes mellitus Status: Chronic Qualifiers: Diabetes mellitus type: type 2 Diabetes mellitus group home insulin use: with group home use Diabetes mellitus complication status: with skin complications Diabetes mellitus complication detail: with other skin complication Qualified Code(s): E11.628 - Type 2 diabetes mellitus with other skin complications; Z79.4 - snf (current) use of insulin (5) Hx of tuberculosis Status: Chronic (6) Schizophrenia Onset Date: 03/14/17 Status: Chronic Qualifiers: Discharge Plan: Home Plan to discharge in: 48 Hours - Advance Directives Does patient have a Living Will: No Does patient have a Durable POA for Healthcare: No - Code Status/Comfort Care Code Status Assessed: Yes Critical Care: No
[2018-01-20] MEDS: INSULIN -REGULAR HUMAN 50 UNIT/0.5 ML ML SQ SCH (21:00)
[2018-01-20] MEDS: PIPER/TAZO/NS 3.375gm 3.375 GM/100 ML BAG IVPB SCH (23:17)
[2018-01-21] MEDS: ZOLPIDEM TARTRATE 10 MG TABLET PO SCH ×2 (00:54→22:05)
[2018-01-21] MEDS: ATORVASTATIN 40 MG TAB PO SCH ×2 (00:54→22:06)
[2018-01-21] MEDS: QUETIAPINE 100MG TAB PO SCH ×3 (00:54→22:06)
[2018-01-21] MEDS ORDERED: ONDANSETRON 4 MG (ODT) TAB PO PRN (00:57)
[2018-01-21] MEDS: NA CHLORIDE 0.9% 1,000 ML IV SCH ×3 (02:00→22:13)
[2018-01-21] MEDS: MORPHINE 4 MG/ML SYR IV PRN (04:09)
[2018-01-21 06:38] LABS: Absolute Lymphocytes (CBC) 1.5 K/uL (0.7-4.9); Absolute Monocytes 0.5 K/uL (0.1-1.3); Absolute Neutrophil 4.3 K/uL (1.8-8.0); Basophils % 0.6 % (0-1.3); Eosinophils % 1.4 % (0-4.4); Hematocrit 27.4 % (36.0-45.0); Lymphocytes % 23.5 % (15.3-44.8); MCH 27.4 pg (27.0-35.0); MCV 80.9 fL (80-100); MPV 9.4 fL (7.6-11.3); Monocytes % 7.4 % (3.3-12.3); RBC Red Blood Cell Count 3.39 M/uL (3.86-4.86)
[2018-01-21] MEDS ORDERED: FENTANYL CITR 100 MCG/2 ML ONE (06:40)
[2018-01-21] MEDS ORDERED: MIDAZOLAM HCL 2 MG/2 ML INJ ONE (06:40)
[2018-01-21] MEDS ORDERED: PROPOFOL 200 MG/20 ML VIAL IV ONE (06:40)
[2018-01-21] MEDS ORDERED: ONDANSETRON HCL 40 MG/20 ML VIAL ONE (06:41)
[2018-01-21] MEDS ORDERED: LIDOCAINE 2% MPF 5 ML VIAL ONE (06:41)
[2018-01-21] MEDS ORDERED: INSULIN -REGULAR HUMAN 50 UNIT/0.5 ML ML ONE (06:51)
[2018-01-21 06:52] LABS: Albumin 3.1 g/dL (3.4-5.0); Bilirubin Total 0.3 mg/dL (0.2-1.0); Potassium 3.6 mmol/L (3.5-5.1); Protein, Total 7.2 g/dL (6.4-8.2)
[2018-01-21] MEDS ORDERED: KETOROLAC 30 MG/ML INJ ONE (07:13)
--- NOTE | 2018-01-21 07:16 | P.OP ---
Preoperative diagnosis: Abscess and Cellulitis Right Breast Abscess Postoperative diagnosis: same Primary procedure: I and D and Debridement Right Breast abscess Anesthesia: General Estimated blood loss: min Specimen: pus Findings: as above Complications: None Transferred to: Recovery Room Condition: Good
[2018-01-21] MEDS: INSULIN -REGULAR HUMAN 50 UNIT/0.5 ML ML SQ SCH ×4 (07:30→21:00)
[2018-01-21] MEDS: PIPER/TAZO/NS 3.375gm 3.375 GM/100 ML BAG IVPB SCH ×2 (07:43→16:25)
[2018-01-21 07:52] VITALS: O2SAT 95
[2018-01-21] MEDS ORDERED: NA CHLORIDE 0.9% 1,000 ML ONE (07:54)
[2018-01-21] MEDS ORDERED: CHLORHEXIDINE GLUCO 4% 120 ML TOP SCH (08:00)
[2018-01-21] MEDS: MUPIROCIN 2% OINT 22GM TUBE TOP SCH ×2 (08:52→22:06)
[2018-01-21] MEDS: HOME MED 1 EA UNK (Linaclotide [Linzess] 290 MCG) PO SCH (08:52)
[2018-01-21] MEDS: CHROMIUM PICOLINATE 1000 MCG PO SCH (08:52)
[2018-01-21] MEDS: ALBUTEROL INHALER 60 PUFF/8 GM IH SCH ×2 (08:53→22:07)
[2018-01-21] MEDS: PANTOPRAZOLE 40MG TABLET PO SCH (08:53)
[2018-01-21] MEDS: PREGABALIN 50 MG CAP PO SCH ×3 (08:53→22:06)
[2018-01-21] MEDS: HYDROMORPHONE HCL 1 MG/ML INJ IV PRN ×4 (08:56→22:07)
[2018-01-21] MEDS ORDERED: HOME MED 1 EA UNK (Dexlansoprazole [Dexilant] 60 MG) PO SCH (09:00)
--- NOTE | 2018-01-21 11:22 | PREOPCON ---
Date of Consultation: 01/20/2018 Reason: Right breast abscess. History Of Present Illness: The patient is a 47-year-old female, comes in with a 1-week history of i ncreasing redness, pain, swelling of the right breast. She had previous abscesses incised and draine d in the past by Dr. Bran. She was in her usual state of health and this occurred by itself and w hen she came in, her sugars were very high. She was admitted for IV antibiotics and control of her s ugars, and I was consulted for and I and D. She is awake, alert, complaining of pain in the right br east. No fever or chills, and no discharge. Review of Systems: Otherwise unremarkable. Past Medical History: Significant for bipolar disorder, schizophrenia, history of pancreatitis, type 1 diabetes, hypertension. Past Surgical History: Cholecystectomy and . Allergies: NONE. Social History: The patient does smoke, has been counseled. Family History: Noncontributory. Physical Examination: Vital Signs: Stable. She is afebrile. General: She is awake, alert, and oriented x3. Head and Neck: Cranial nerves 2 through 12 are grossly within normal limits. No neck masses. No JV D. Throat clear. Neck is supple. Chest: Clear. Heart: S1, S2. Abdomen: Soft. Extremities: Neurovascularly intact. Neuro: Nonfocal. Breast Examination: Examination of the both breast reveals the left breast to be normal and there is no axillary lymphadenopathy. On the right breast, there is in the retroareolar region more towards the medial aspect. There is erythema, warmth, swelling, induration and fluctuance. Laboratory Data: Significant for elevated sugar, which she came in greater than 450, currently is 25 2, and her white count was 6.5, with a left shift. Assessment: Right breast abscess and cellulitis. Recommendations: At this point, we will take the patient to the operating room for incision and drmel nage and debridement of the right breast abscess. Should there be abnormal tissue upon exploration o f the wound, we will do biopsy and then keep her on antibiotics. We will institute local wound care. Hopefully, discharge in a day or 2. GENNY/NABIL Voice ID: [id number] Report ID: [id number]
--- NOTE | 2018-01-21 11:24 | P.PN ---
Subjective Date of Service: 01/21/18 Subjective: No C/O voiced, Tolerating diet, Improving, Doing well Review of Systems 10-point ROS is otherwise unremarkable Physical Examination - Vital Signs Temperature: 98.1 F Blood Pressure: 98/60 Pulse: 94 Respirations: 16 Pulse Ox (%): 94 - Physical Exam General: Alert, In no apparent distress HEENT: Atraumatic, PERRLA, EOMI Neck: Supple, JVD not distended Respiratory: Clear to auscultation bilaterally, Normal air movement Cardiovascular: Regular rate/rhythm, Normal S1 S2 Gastrointestinal: Normal bowel sounds, No tenderness Musculoskeletal: No tenderness Integumentary: No rashes Neurological: Normal speech, Normal tone, Normal affect Lymphatics: No axilla or inguinal lymphadenopathy Other Physical/Emotional Findings: right breast with wound packing. Erythema and tender to touch. Serasanginous Discharge noted. - Studies Laboratory Data (last 24 hrs) 01/20/18 14:12: Sodium 135 L, Potassium 4.1, BUN 14, Creatinine 1.00, Glucose 453 H* 01/20/18 14:12: WBC 6.5, Hgb 9.2 L, Hct 28.4 L, Plt Count 190 Microbiology Data (last 24 hrs): 01/20/18 14:44 Blood - Blood Anaerobic Blood Culture - Final Medications List Reviewed: Yes Assessment And Plan - Current Problems (Diagnosis) (1) Breast abscess Current Visit: Yes Status: Acute Plan: Breast Abscess noted on the CT -IV vanc and zosyn -General Surgery consulted. -S/P I&D POD # 1 -Wound culture pending -Wound Care with nursing (2) Cellulitis Current Visit: Yes Status: Acute Plan: Cellulitis of the breast -IV vanc and zosyn -Pending Wound culture at this time Qualifiers: Site of cellulitis: other site Qualified Code(s): L03.818 - Cellulitis of other sites (3) Hyperlipidemia Current Visit: Yes Status: Chronic Qualifiers: Hyperlipidemia type: unspecified Qualified Code(s): E78.5 - Hyperlipidemia , unspecified (4) Diabetes mellitus Current Visit: No Status: Chronic Qualifiers: Diabetes mellitus type: type 2 Diabetes mellitus manager long term care insulin use: with fdc use Diabetes mellitus complication status: with skin complications Diabetes mellitus complication detail: with other skin complication Qualified Code(s): E11.628 - Type 2 diabetes mellitus with other skin complications; Z79.4 - penitentiary (current) use of insulin (5) Hx of tuberculosis Current Visit: No Status: Chronic (6) Schizophrenia Onset Date: 03/14/17 Current Visit: No Status: Chronic Qualifiers: Discharge Plan: Home Plan to discharge in: 48 Hours - Code Status/Comfort Care Code Status Assessed: Yes Critical Care: No
--- NOTE | 2018-01-21 11:38 | OP ---
Date of Procedure: 01/21/2018 Surgeon: Joey Taylor MD Preoperative Diagnosis: Right breast abscess cellulitis. Postoperative Diagnosis: Right breast abscess cellulitis. Procedure: Incision drainage and debridement, right breast, abscess. Estimated Blood Loss: Minimal. Specimen: Pus. Finding: As above. Anesthesia: General. Complications: None. Disposition: The patient tolerated the procedure in stable condition and taken to Recovery in good g eneral condition. Operative Note: The patient brought to the OR and placed in supine position. General anesthesia was begun. The patient was prepped and draped in usual sterile fashion. Marcaine 0.5% was infiltrated locally. A 15-blade was used to make approximately a 4 cm curvilinear incision on the medial aspect of the nipple areolar skin margin. Subcutaneous tissue divided. Pus under pressure evacuated. Ther e was a large abscess cavity present. Entire pus was evacuated. Cultures were done. Necrotic tissu e was debrided. Wound irrigated. There was no mass per se that was palpated, and I reviewed the pre vious pathology that was done in the last I and D, and it was negative for any carcinoma, therefore w e did not do another biopsy and patient had a mammogram since the last I and D and that was negative. So wound was irrigated again. Bleeding controlled with cautery. Wet-to-dry normal saline dressing change applied. The patient tolerated the procedure in stable condition and taken to Recovery in good general condition. GENNY/NABIL Voice ID: [id number] Report ID: [id number]
[2018-01-21] MEDS: VANCOMYCIN 1.25 GM in NA CHLORIDE 0.9% 250 ML IVPB SCH (17:48)
[2018-01-21] MEDS ORDERED: LYSINE 500 MG PO SCH (21:00)
[2018-01-21] MEDS: ONDANSETRON 4 MG/2 ML VIAL IV PRN (23:35)
[2018-01-22] MEDS: PIPER/TAZO/NS 3.375gm 3.375 GM/100 ML BAG IVPB SCH ×2 (00:59→08:40)
[2018-01-22] MEDS: HYDROMORPHONE HCL 1 MG/ML INJ IV PRN ×2 (02:41→07:03)
[2018-01-22 05:55] LABS: Absolute Lymphocytes (CBC) 1.2 K/uL (0.7-4.9); Absolute Monocytes 0.3 K/uL (0.1-1.3); Basophils % 0.8 % (0-1.3); Eosinophils % 2.5 % (0-4.4); Hematocrit 25.7 % (36.0-45.0); Lymphocytes % 25.9 % (15.3-44.8); MCH 27.3 pg (27.0-35.0); MCV 81.7 fL (80-100); MPV 9.8 fL (7.6-11.3); Monocytes % 6.8 % (3.3-12.3); RBC Red Blood Cell Count 3.14 M/uL (3.86-4.86)
[2018-01-22 06:07] LABS: ALT/SGPT 57 U/L (12-78); AST/SGOT 72 U/L (15-37); Albumin 2.9 g/dL (3.4-5.0); Alkaline Phosphatase 130 U/L (45-117); BUN Blood Urea Nitrogen 6 mg/dL (7-18); Bicarbonate 26 mmol/L (21-32); Bilirubin Total 0.3 mg/dL (0.2-1.0); Glucose Level 194 mg/dL (74-106); Potassium 3.6 mmol/L (3.5-5.1); Protein, Total 6.9 g/dL (6.4-8.2); Sodium Level 140 mmol/L (136-145)
[2018-01-22] MEDS ORDERED: KCL 20 MEQ/100 mL IVPB 20 MEQ/100 ML BAG IV SCH (07:00)
[2018-01-22] MEDS: ONDANSETRON 4 MG/2 ML VIAL IV PRN (07:07)
[2018-01-22] MEDS: INSULIN -REGULAR HUMAN 50 UNIT/0.5 ML ML SQ SCH ×2 (07:30→11:30)
[2018-01-22] MEDS: CHROMIUM PICOLINATE 1000 MCG PO SCH (08:40)
[2018-01-22] MEDS: QUETIAPINE 100MG TAB PO SCH (08:40)
[2018-01-22] MEDS: HOME MED 1 EA UNK (Linaclotide [Linzess] 290 MCG) PO SCH (08:40)
[2018-01-22] MEDS: MUPIROCIN 2% OINT 22GM TUBE TOP SCH (08:40)
[2018-01-22] MEDS: PANTOPRAZOLE 40MG TABLET PO SCH (08:40)
[2018-01-22] MEDS: NA CHLORIDE 0.9% 1,000 ML IV SCH (08:41)
[2018-01-22] MEDS: ALBUTEROL INHALER 60 PUFF/8 GM IH SCH (08:43)
[2018-01-22] MEDS: PREGABALIN 50 MG CAP PO SCH (08:44)
[2018-01-22] MEDS: LORazepam 2 MG/ML VIAL IV ONE ×2 (09:00→10:08)
--- NOTE | 2018-01-22 13:30 | PN ---
Date of Progress Note: 01/22/2018 Subjective: The patient is awake, alert. States that the breast pain is better. Vital signs stable , afebrile. Cultures pending. Dressing clean, dry, and intact. Assessment: Incision, drainage, and debridement of the right breast abscess. Recommendation: Continue IV antibiotics and wound care is ordered. Once we get the cultures, will a djust the antibiotics to oral, then she can be discharged home. Follow up with me in 1 to 2 weeks. GENNY/NABIL Voice ID: [id number] Report ID: [id number]
--- NOTE | 2018-01-22 15:07 | P.SSS ---
Patient History Date of Service: 01/22/18 Primary Care Provider: Non Reason for admission: Breast at History of Present Illness: This is a [age]-year-old female with significant past medical history who presented to the ED complaining of having some erythema and tenderness in her right breast. Patient has had previous breast mass and breast abscess removed from the similar breast. Patient stated that she was doing well overall however over past couple a days started noticing that she was having increased erythema and tenderness to the area. Patient thus decided to come to the ER. Positive for fever and chills at home as well. Denies having any nausea vomiting abdominal pain or any other associated symptoms at this time. Patient was seen by general surgery here in the past. Had abscess removed. Had mammogram which was negative for any malignant lesions. At this time in the ER patient was seen patient was found to have breast abscess on the ultrasound and thus was admitted for further workup. Allergies No Known Allergies Allergy (Verified 03/29/17 16:06) Home Medications: Albuterol Sulfate [Proair Hfa] 1 puff IN BID 01/20/18 Atorvastatin Calcium [Lipitor] 40 mg PO BEDTIME 01/20/18 Chromium Picolinate 1,000 mcg PO DAILY 01/20/18 Dexlansoprazole [Dexilant] 60 mg PO DAILY 01/20/18 Insulin 70/30 NPH/Reg Human [Novolin 70/30*] 35 units SQ BIDWM 01/20/18 Linaclotide [Linzess] 290 mcg PO DAILY 01/20/18 Lysine 500 mg PO BEDTIME 01/20/18 Ondansetron HCl [Zofran] 4 mg PO DAILY PRN 01/20/18 Pantoprazole [Protonix Tab*] 40 mg PO DAILY 01/20/18 Pregabalin [Lyrica*] 100 mg PO TID 01/20/18 Quetiapine Fumarate [Seroquel] 300 mg PO BID 01/20/18 Zolpidem Tartrate 10 mg PO BEDTIME 01/20/18 Ciprofloxacin HCl [Cipro 500 MG Tablet] 500 mg PO DAILY #14 tab 01/22/18 Doxycycline Hyclate [Vibramycin] 100 mg PO BID #28 capsule 01/22/18 - Past Medical/Surgical History Has patient received pneumonia vaccine in the past: No Diabetic: Yes -: Bipolar Disorder -: Schizophrenia -: Diabetes mellitus type 2 -: Hyperlipidemia -: Chronic constipation -: Insomnia -: Tobacco abuse -: THC abuse -: pancreatitis -: TB -: Cataract removal -: Cholecystectomy -: x 3 Psychosocial/ Personal History: Patient lives at home. She does not work. She is disabled due to her mental illness. - Family History Mother -: Diabetes - Social History Smoking Status: Current some day smoker Alcohol use: No CD- Drugs: No Caffeine use: Yes Place of Residence: Home Review of Systems 10-point ROS is otherwise unremarkable Physical Examination - Vital Signs Temperature: 97.5 F Blood Pressure: 120/70 Pulse: 93 Respirations: 17 Pulse Ox (%): 93 - Physical Exam General: Alert, In no apparent distress HEENT: Atraumatic, PERRLA, Mucous membr. moist/pink, EOMI, Sclerae nonicteric Neck: Supple, 2+ carotid pulse no bruit, No LAD, Without JVD or thyroid abnormality Respiratory: Clear to auscultation bilaterally, Normal air movement Cardiovascular: Regular rate/rhythm, Normal S1 S2 Gastrointestinal: Normal bowel sounds, No tenderness Musculoskeletal: No tenderness Integumentary: No rashes Neurological: Normal gait, Normal speech, Normal strength at 5/5 x4 extr, Normal tone, Normal affect Lymphatics: No axilla or inguinal lymphadenopathy Other Physical/Emotional Findings: right breast with wound packing. Erythema and tender to touch. Serasanginous Discharge noted. - Studies Microbiology Data (last 24 hrs): 01/20/18 15:00 Clean Catch Urine [place] Count - Final >100,000 CFU/ML. 01/20/18 15:00 Clean Catch Urine - Final Escherichia Coli 01/20/18 14:44 Blood - Blood Anaerobic Blood Culture - Final - Diagnosis (Problem(s)) (1) Breast abscess Status: Acute (2) Cellulitis Status: Acute Qualifiers: Site of cellulitis: other site Qualified Code(s): L03.818 - Cellulitis of other sites (3) Hyperlipidemia Status: Chronic Qualifiers: Hyperlipidemia type: unspecified Qualified Code(s): E78.5 - Hyperlipidemia , unspecified (4) Diabetes mellitus Status: Chronic Qualifiers: Diabetes mellitus type: type 2 Diabetes mellitus residential insulin use: with residential use Diabetes mellitus complication status: with skin complications Diabetes mellitus complication detail: with other skin complication Qualified Code(s): E11.628 - Type 2 diabetes mellitus with other skin complications; Z79.4 - long-term (current) use of insulin (5) Hx of tuberculosis Status: Chronic (6) Schizophrenia Onset Date: 03/14/17 Status: Chronic Qualifiers: Treatment Summary: Overall during the hospital stay patient remained stable The patient was initially admitted to the hospital for breast abscess along with cellulitis. Was started on IV antibiotics here in the hospital. General surgery was consulted. Patient was taken to the OR for initial incision and drainage. Patient had marked improvement in her symptoms and her wounds packed with wet-to-dry dressing. Patient's wound culture is currently pending however patient wanted to leave the hospital AMA day 2 of hospital with it. However patient was convinced not to do that and today patient was discharged home after explaining that she needs to follow up with wound culture with her primary care doctor. patient was discharged home under stable condition on p.o. ciprofloxacin and doxycycline. Patient will have wound culture follow up with her primary care provider. Patient was educated extensively on the disease process and the need to follow up with the primary care provider in about 1-2 days. Patient demonstrated understanding and thus was discharged home under stable condition. - Disposition Disposition: ROUTINE DISCHARGE Condition: GOOD Patient Discharge Instructions: Please f.u with Dr Bran in 1 to 2 week post discharge. . New medication. Ciprofloxacin 500mg daily. Doxycycyline 100mg BID. You were admitted to the hospital for breast abscess and UTI Diet: Regular Activity: Ad keagan
[2018-01-22 15:09] VITALS: BP 129/73; TEMP 98.7
== END 2018-01-22 13:00 | disposition home or self-care (01) | DRG 584 ==
LOC: ER 13:21 → ERHOLD 15:21 → 2ND 16:21
PROVIDERS: ADMIT Family Medicine; ATTEND Family Medicine
PROC: 0H9T0ZX Drainage of Right Breast, Open Approach, Diagnostic (ICD-10-PCS; principal; 2018-01-21 07:00)
DX: N61.1 Abscess of the breast and nipple (principal); N39.0 Urinary tract infection, site not specified; F31.9 Bipolar disorder, unspecified; F20.9 Schizophrenia, unspecified; E11.9 Type 2 diabetes mellitus without complications; E78.5 Hyperlipidemia, unspecified; F17.210 Nicotine dependence, cigarettes, uncomplicated; Z86.11 Personal history of tuberculosis
CPT/HCPCS: 36415; 76642; 80048; 80053; 81003; 82962; 83605; 85025; 87040; 87070; 87075; 87077; 87086; 87088; 87186; 87205; 96372; 99285; J1170; J2250; J2405; J2543; J3010; J7030

== ENCOUNTER 2018-11-23 18:33 | Emergency (ER) | payer OTHER ==
--- OUTSIDE RECORDS SUMMARY | 2018-11-23 18:35 | XMS REPORT ---
:1970 Author Organization [employer] Care Team Providers Name Role Phone Diallo, Na Provider Role Unavailable Allergies No Known Allergies Problems Problem Type Condition Code Onset Dates Condition Status Problem Neuropathy G62.9 Active Problem Hyperlipidemia E78.5 Active Problem Diabetes E11.9 Active Problem Type 2 diabetes mellitus with other E11.59 Active circulatory complications Problem Type 2 diabetes mellitus with E11.65 Active hyperglycemia Problem Mixed hyperlipidemia E78.2 Active Problem Gastroesophageal reflux disease K21.9 Active without esophagitis Problem Irritable bowel syndrome with K58.1 Active constipation Problem Other schizophrenia F20.89 Active Problem Heavy menses N92.0 Active Problem Gastroparesis K31.84 Active Problem Diabetic neuropathy E11.40 Active Problem care home current use of insulin Z79.4 Active Problem Insomnia G47.00 Active Problem Osteoarthritis M19.90 Active Problem Anemia D64.9 Active Medications No Known Medications Results No Known Results Summary Purpose [employer] Submission
[2018-11-23] MEDS ORDERED: FENTANYL CITR 100 MCG/2 ML ONE (20:06)
[2018-11-23] MEDS ORDERED: ONDANSETRON 4 MG/2 ML VIAL ONE (20:07)
[2018-11-23] MEDS ORDERED: NA CHLORIDE 0.9% 1,000 ML ONE (20:07)
[2018-11-23 20:39] LABS: Absolute Lymphocytes (CBC) 1.1 K/uL (0.7-4.9); Basophils % 0.6 % (0-1.3); Hematocrit 24.6 % (36.0-45.0); Lymphocytes % 14.9 % (15.3-44.8); MPV 8.6 fL (7.6-11.3); RBC Red Blood Cell Count 3.19 M/uL (3.86-4.86)
[2018-11-23 20:56] LABS: ALT/SGPT 20 U/L (12-78); AST/SGOT 9 U/L (15-37); Albumin 3.9 g/dL (3.4-5.0); Alkaline Phosphatase 91 U/L (45-117); BUN Blood Urea Nitrogen 10 mg/dL (7-18); Bicarbonate 25 mmol/L (21-32); Bilirubin Direct < 0.1 mg/dL (0-0.2); Bilirubin Total 0.2 mg/dL (0.2-1.0); Glucose Level 356 mg/dL (74-106); Lipase 149 U/L (73-393); Potassium 4.1 mmol/L (3.5-5.1); Protein, Total 8.2 g/dL (6.4-8.2); Sodium Level 139 mmol/L (136-145)
--- NOTE | 2018-11-23 21:03 | RAD REPORT ---
EXAM DESCRIPTION: US - Transvaginal Study Probe - 11/23/2018 8:46 pm CLINICAL HISTORY: Pelvic pain with vaginal bleeding COMPARISON: [id number] FINDINGS: The uterus measures 9 x 5 x 6cm. A 2.2 centimeter isoechoic fibroid is suspected within th e uterine body. It probably is intramural. The endometrial stripe measures 1 centimeter 2.2 centimeter left ovarian cyst. Right ovary was not seen. Right and left adnexal unremarkable No significant free fluid is seen. IMPRESSION: 2.2 centimeter fibroid suspected 2.2 centimeter left ovarian cyst without significant free fluid
[2018-11-23 21:18] LABS: Urine Blood 2+ (NEG); Urine Glucose 2+ (NEG); Urine Protein NEGATIVE (NEG); Urine Specific Gravity 1.015 (1.005-1.030); Urine pH 5.5 (5.0-7.0)
[2018-11-23 21:19] LABS: Anisocytosis 2+; Blood Morphology Comment NOTED (NOT SEEN); Hypochromasia 2+; Platelet Estimate ADEQ; Polychromasia SLIGHT; Urine White Blood Cell Casts OK
[2018-11-23 21:31] LABS: Barbiturates NEGATIVE (NEGATIVE); Benzodiazepines NEGATIVE (NEGATIVE); Cocaine NEGATIVE (NEGATIVE); METHAMPHETAM NEGATIVE (NEGATIVE); Methadone NEGATIVE (NEGATIVE); Opiates NEGATIVE (NEGATIVE); Phencyclidine NEGATIVE (NEGATIVE); THC Cannibis NEGATIVE (NEGATIVE)
[2018-11-23 21:42] LABS: Urine Bacteria >50 /HPF (<20)
[2018-11-23 21:43] LABS: Urine Culture Reflex Order REFLEXED
[2018-11-24] MEDS ORDERED: CEFTRIAXONE/SWI 1gm 1 GM/10 ML SYR ONE (01:09)
--- NOTE | 2018-11-24 01:48 | ER ---
Nurse's Notes [facility] Name: Roya Anne Age: 48 yrs Sex: Female : 1970 Arrival Date: 11/23/2018 Time: 18:34 Bed 19 Private MD: Diagnosis: pelvic pain;abdominal pain;anemia;UTI Presentation: 11/23 18:47 Presenting complaint: Patient states: vaginal bleeding x 3 months ago. Pt also reports aa5 pain to lower abd x 2 days ago. Pt states "I feel short of breath and very weak". Pt appears pale in triage. Transition of care: patient was not received from another setting of care. Onset of symptoms was 2018. Risk Assessment: Do you want to hurt yourself or someone else? Patient reports no desire to harm self or others. Care prior to arrival: None. 18:47 Acuity: AGATA 2 aa5 18:47 Method Of Arrival: Ambulatory aa5 19:00 Initial Sepsis Screen: Does the patient meet any 2 criteria? No. Patient's initial tr5 sepsis screen is negative. Does the patient have a suspected source of infection? No. Patient's initial sepsis screen is negative. Triage Assessment: 19:00 General: Appears uncomfortable. tr5 Historical: - Allergies: 18:48 No Known Allergies; aa5 - PMHx: 18:48 Anemia; Bipolar disorder; Diabetes - IDDM; Hypertension; neuropathy; Pancreatitis; aa5 Schizophrenia; - PSHx: 18:48 ; aa5 - Immunization history:: Adult Immunizations unknown. - Social history:: Smoking status: Patient/guardian denies using tobacco. - Ebola Screening: : No symptoms or risks identified at this time. - Family history:: not pertinent. - Hospitalizations: : No recent hospitalization is reported. Screenin:09 Abuse screen: Denies threats or abuse. Nutritional screening: No deficits noted. tr5 Tuberculosis screening: No symptoms or risk factors identified. Fall Risk None identified. Total Cruz Fall Scale indicates No Risk (0-24 pts). Assessment: 19:20 General: Appears uncomfortable, Behavior is restless. Pain: Complains of pain in tr5 abdomen Pain radiates to back Pain currently is 10 out of 10 on a pain scale. Quality of pain is described as crampy, Is continuous. Neuro: Level of Consciousness is awake, alert, obeys commands. Cardiovascular: Heart tones present Bruits absent Capillary refill < 3 seconds Pulses are all present. Edema is absent. Respiratory: Breath sounds are clear bilaterally. GI: Reports cramping, nausea, vomiting. : Reports cramping, vaginal bleeding that is bright red, heavy flow. EENT: No signs and/or symptoms were reported regarding the EENT system. Derm: Skin is intact, Skin is dry, Skin is pink, warm \\T\\ dry. Skin temperature is warm. Musculoskeletal: Capillary refill < 3 seconds, Range of motion: intact in all extremities. 20:55 Reassessment: No changes from previously documented assessment. Patient and/or family tr5 updated on plan of care and expected duration. Pain level reassessed. Patient states feeling better. 21:48 Reassessment: No changes from previously documented assessment. Patient and/or family tr5 updated on plan of care and expected duration. Pain level reassessed. Patient is alert, oriented x 3, equal unlabored respirations, skin warm/dry/pink. 22:43 Reassessment: No changes from previously documented assessment. Patient and/or family tr5 updated on plan of care and expected duration. Pain level reassessed. Patient is alert, oriented x 3, equal unlabored respirations, skin warm/dry/pink. 23:30 Reassessment: Patient is alert, oriented x 3, equal unlabored respirations, skin tr5 warm/dry/pink. Patient states feeling better. 11/24 00:47 Reassessment: Patient appears in no apparent distress at this time. No changes from tr5 previously documented assessment. Patient is alert, oriented x 3, equal unlabored respirations, skin warm/dry/pink. Vital Signs: 11/23 18:48 BP 128 / 63; Pulse 130; Resp 18 S; Temp 99.0(O); Pulse Ox 100% on R/A; Pain 10/10; aa5 20:56 BP 120 / 99; Pulse 108; Resp 16; Pulse Ox 100% on R/A; tr5 22:00 BP 128 / 78; Pulse 100; Resp 16; Pulse Ox 99% on R/A; tr5 23:12 BP 126 / 70; Pulse 98; Resp 18; Pulse Ox 99% on R/A; tr5 ED Course: 18:34 Patient arrived in ED. as 18:47 Triage completed. aa5 18:47 Arm band placed on. aa5 18:59 Yogi Wyman, CHARLEY is Primary Nurse. tr5 19:26 Jason Terry MD is Attending Physician. mo 20:09 Patient has correct armband on for positive identification. Placed in gown. Bed in low tr5 position. Call light in reach. Pulse ox on. NIBP on. Door closed. Noise minimized. 20:09 Inserted saline lock: 22 gauge in right antecubital area, using aseptic technique. tr5 20:09 Initial lab(s) drawn, by me, sent to lab. tr5 20:14 Radiology exam delayed due to lab results not completed at this time. (BUN/Creatinine). vm2 20:27 Patient taken to ultrasound. tr5 20:45 Transvaginal Study Probe In Process Unspecified. EDMS 20:53 Radiology exam delayed due to lab results not completed at this time. (BUN/Creatinine). nj 20:55 Awaiting lab results, Awaiting radiology results. tr5 21:02 Radiology exam delayed due to test not completed at this time. vm2 21:[address] via wheelchair. tr5 21:36 CT Abd/Pelvis - IV Contrast Only In Process Unspecified. EDMS 21:45 Assisted to bathroom. tr5 11/24 01:19 Assisted to bathroom. tr5 01:45 Lainey Torres MD is Referral Physician. mo Administered Medications: 11/23 20:15 Drug: fentaNYL (PF) 50 mcg Route: IVP; Site: right antecubital; tr5 20:56 Follow up: Response: Pain is decreased tr5 20:16 Drug: Zofran 4 mg Route: IVP; Site: right antecubital; tr5 20:56 Follow up: Response: Nausea is decreased tr5 20:16 Drug: NS 0.9% 1000 ml Route: IV; Rate: 1 bolus; Site: right antecubital; tr5 22:38 Drug: fentaNYL (PF) 50 mcg Route: IVP; Site: right antecubital; tr5 11/24 01:00 Drug: Rocephin - (cefTRIAXone) 1 grams Route: IVPB; Infused Over: 30 mins; Site: right tr5 antecubital; 01:43 Follow up: Response: No adverse reaction; IV Status: Completed infusion tr5 Outcome: 01:47 Discharge ordered by . memo 02:24 Patient left the ED. tr5 Addendum: 11/27/2018 09:05 Addendum: Culture Results: Positive urine culture. No further action required. Bacteria s s sensitive to prescribed antibiotic. Signatures: Dispatcher [employer] EDMS Rocio Bennett Audri, RN RN aa5 Louisa Bridges RN RN Francesco Lau Victoria [facility] Jason Terry MD MD wa Rodriguez, Tommie, RN RN tr5 Corrections: (The following items were deleted from the chart) 11/23 18:49 18:47 Presenting complaint: Patient states: vaginal bleeding x 3 months ago. Pt also aa5 reports pain to lower abd x 2 days ago. Pt states "I feel short of breath and very weak" aa5 22:20 22:20 General: Appears uncomfortable, tr5 tr5 11/24 01:22 01:20 Rocephin - (cefTRIAXone) 1 grams IVPB in right antecubital over 30 mins tr5 tr5
--- NOTE | 2018-11-24 01:49 | EDPHYS ---
Physician Documentation [facility] Name: Roya Anne Age: 48 yrs Sex: Female : 1970 Arrival Date: 11/23/2018 Time: 18:34 Bed 19 Private MD: ED Physician Jason Terry HPI: 11/24 01:53 This 48 yrs old Female presents to ER via Ambulatory with complaints of wa Vaginal Bleeding. 01:53 The patient presents with pelvic pain, that is located in/on the pelvis, the pain does wa not radiate, the pain is described as moderate, sharp, vaginal bleeding that is heavy. Onset: The symptoms/episode began/occurred 3 month(s) ago. Modifying factors: The symptoms are alleviated by nothing, the symptoms are aggravated by nothing. Associated signs and symptoms: Pertinent positives: nausea, vaginal bleeding, vomiting, Pertinent negatives: constipation. Severity of symptoms: At their worst the symptoms were moderate, in the emergency department the symptoms are unchanged. The patient has not experienced similar symptoms in the past. The patient has not recently seen a physician. c/o abd/pelvic pain x 3 months. also vag bleeding. Historical: - Allergies: 11/23 18:48 No Known Allergies; aa5 - PMHx: 18:48 Anemia; Bipolar disorder; Diabetes - IDDM; Hypertension; neuropathy; Pancreatitis; aa5 Schizophrenia; - PSHx: 18:48 ; aa5 - Immunization history:: Adult Immunizations unknown. - Social history:: Smoking status: Patient/guardian denies using tobacco. - Ebola Screening: : No symptoms or risks identified at this time. - Family history:: not pertinent. - Hospitalizations: : No recent hospitalization is reported. ROS: 11/24 01:55 Positive for pelvic pain, vaginal bleeding, Negative for urinary symptoms. wa Eyes: Negative for injury, pain, redness, and discharge, ENT: Negative for injury, pain, and discharge, Neck: Negative for injury, pain, and swelling, Cardiovascular: Negative for chest pain, palpitations, and edema, Respiratory: Negative for shortness of breath, cough, wheezing, and pleuritic chest pain, Back: Negative for injury and pain, MS/Extremity: Negative for injury and deformity, Skin: Negative for injury, rash, and discoloration, Neuro: Negative for headache, weakness, numbness, tingling, and seizure, Psych: Negative for depression, anxiety, suicide ideation, homicidal ideation, and hallucinations. Abdomen/GI: Positive for abdominal pain, nausea and vomiting, Negative for diarrhea. : Positive for pelvic pain, vaginal bleeding. Exam: 01:56 Constitutional: This is a well developed, well nourished patient who is awake, alert, wa and in no acute distress. Head/Face: Normocephalic, atraumatic. Eyes: Pupils equal round and reactive to light, extra-ocular motions intact. Lids and lashes normal. Conjunctiva and sclera are non-icteric and not injected. Cornea within normal limits. Periorbital areas with no swelling, redness, or edema. ENT: Nares patent. No nasal discharge, no septal abnormalities noted. Tympanic membranes are normal and external auditory canals are clear. Oropharynx with no redness, swelling, or masses, exudates, or evidence of obstruction, uvula midline. Mucous membranes moist. Neck: Trachea midline, no thyromegaly or masses palpated, and no cervical lymphadenopathy. Supple, full range of motion without nuchal rigidity, or vertebral point tenderness. No Meningismus. Chest/axilla: Normal chest wall appearance and motion. Nontender with no deformity. No lesions are appreciated. Cardiovascular: Regular rate and rhythm with a normal S1 and S2. No gallops, murmurs, or rubs. Normal PMI, no JVD. No pulse deficits. Respiratory: Lungs have equal breath sounds bilaterally, clear to auscultation and percussion. No rales, rhonchi or wheezes noted. No increased work of breathing, no retractions or nasal flaring. Back: No spinal tenderness. No costovertebral tenderness. Full range of motion. Skin: Warm, dry with normal turgor. Normal color with no rashes, no lesions, and no evidence of cellulitis. MS/ Extremity: Pulses equal, no cyanosis. Neurovascular intact. Full, normal range of motion. Neuro: Awake and alert, GCS 15, oriented to person, place, time, and situation. Cranial nerves II-XII grossly intact. Motor strength 5/5 in all extremities. Sensory grossly intact. Cerebellar exam normal. Normal gait. Psych: Awake, alert, with orientation to person, place and time. Behavior, mood, and affect are within normal limits. 01:56 Abdomen/GI: Inspection: abdomen appears normal, Bowel sounds: normal, in all quadrants, Palpation: moderate abdominal tenderness, in the suprapubic area, right lower quadrant and left lower quadrant. 01:56 : CVA tenderness, is absent, Pelvic Exam: External exam: is normal, Speculum exam: mild bleeding, no cervicitis, os that is closed. Vital Signs: 11/23 18:48 BP 128 / 63; Pulse 130; Resp 18 S; Temp 99.0(O); Pulse Ox 100% on R/A; Pain 10/10; aa5 20:56 BP 120 / 99; Pulse 108; Resp 16; Pulse Ox 100% on R/A; tr5 22:00 BP 128 / 78; Pulse 100; Resp 16; Pulse Ox 99% on R/A; tr5 23:12 BP 126 / 70; Pulse 98; Resp 18; Pulse Ox 99% on R/A; tr5 MDM: 19:26 Patient medically screened. ne 11/24 01:57 Differential diagnosis: dysmenorrhea, ectopic , nonspecific abdominal pain, wa uterine fibroids, urinary tract infection. 01:57 Data reviewed: vital signs, nurses notes. Test interpretation: by ED physician or ne midlevel provider: labs noted for anemia. hyperglycemia. US and CT abd/pelvis: noted for fibroid. . Test interpretation: by ED physician or midlevel provider: UA noted for UTI. Response to treatment: the patient's symptoms have markedly improved after treatment. 11/23 19:51 Order name: Abo/rh Typing; Complete Time: 00:50 ne 11/23 19:51 Order name: Basic Metabolic Panel; Complete Time: 00:50 11/23 19:51 Order name: CBC with Diff; Complete Time: 00:50 11/23 19:51 Order name: Creatinine for Radiology; Complete Time: 00:50 11/23 19:51 Order name: Hepatic Function; Complete Time: 00:50 11/23 19:51 Order name: Lipase; Complete Time: 00:50 11/23 19:52 Order name: UDS; Complete Time: 00:50 11/23 19:52 Order name: Urine Microscopic Only; Complete Time: 00:50 11/23 19:54 Order name: CT Abd/Pelvis - IV Contrast Only ne 11/23 20:51 Order name: CBC Smear Scan; Complete Time: 00:50 EDMS 11/23 21:15 Order name: Urine Dipstick--Ancillary (enter results) 2 11/23 21:15 Order name: Urine --Ancillary (enter results) [facility] 11/23 21:44 Order name: Urine Culture EDCA 11/23 19:51 Order name: Urine Test (obtain specimen); Complete Time: 21:14 ne 11/23 19:51 Order name: IV Saline Lock; Complete Time: 20:09 ne 11/23 19:51 Order name: Labs collected and sent; Complete Time: 20: ne 11/23 19:51 Order name: NPO; Complete Time: 20:04 ne 11/23 19:51 Order name: Urine Dipstick-Ancillary (obtain specimen); Complete Time: 21:14 ne 11/23 20:44 Order name: Transvaginal Study Probe; Complete Time: 00:50 EDMS Administered Medications: 11/23 20:15 Drug: fentaNYL (PF) 50 mcg Route: IVP; Site: right antecubital; tr5 20:56 Follow up: Response: Pain is decreased tr5 20:16 Drug: Zofran 4 mg Route: IVP; Site: right antecubital; tr5 20:56 Follow up: Response: Nausea is decreased tr5 20:16 Drug: NS 0.9% 1000 ml Route: IV; Rate: 1 bolus; Site: right antecubital; tr5 22:38 Drug: fentaNYL (PF) 50 mcg Route: IVP; Site: right antecubital; tr5 11/24 01:00 Drug: Rocephin - (cefTRIAXone) 1 grams Route: IVPB; Infused Over: 30 mins; Site: right tr5 antecubital; 01:43 Follow up: Response: No adverse reaction; IV Status: Completed infusion tr5 Disposition: 11/24/18 01:47 Discharged to Home. Impression: pelvic pain, abdominal pain, anemia, UTI. - Condition is Stable. - Discharge Instructions: Iron Deficiency Anemia, Adult, Pelvic Pain, Female, [id number], Uterine Fibroids, [id number]. - Prescriptions for Augmentin 875- 125 mg Oral Tablet - take 1 tablet by ORAL route every 12 hours for 5 days; 10 tablet. Zofran 4 mg Oral Tablet - take 1 tablet by ORAL route every 12 hours As needed; 20 tablet. Tramadol 50 mg Oral Tablet - take 1 tablet by ORAL route every 8 hours as needed; 12 tablet. - Medication Reconciliation Form, Thank You Letter, Antibiotic Education, Prescription Opioid Use form. - Follow up: Lainey Torres MD; When: 1 - 2 days; Reason: Recheck today's complaints. - Problem is new. - Symptoms have improved. - Notes: follow up with the [employer] doctor for further evaluation Signatures: Dispatcher [employer] [facility] Noni Zamora, RN RN aa5 Jason Terry MD MD wa Rodriguez, Tommie RN RN tr5 Corrections: (The following items were deleted from the chart) 11/23 20:44 19:52 Pelvis Complete+[id number].BRZ ordered. [facility] 11/24 02:24 01:47 11/24/2018 01:47 Discharged to Home. Impression: pelvic pain; abdominal pain; tr5 anemia; UTI. Condition is Stable. Forms are Medication Reconciliation Form, Thank You Letter, Antibiotic Education, Prescription Opioid Use. Follow up: Lainey Torres; When: 1 - 2 days; Reason: Recheck today's complaints. Problem is new. Symptoms have improved. wa
[2018-11-24 02:50] VITALS: TEMP 99
[2018-11-24 02:52] VITALS: O2SAT 99
[2018-11-24 02:53] VITALS: BP 126/70
--- NOTE | 2018-11-27 14:52 | RAD REPORT ---
EXAM DESCRIPTION: CT - Abdomen Pelvis W Contrast - 11/24/2018 3:10 am CLINICAL HISTORY: 48 years Female ABD PAIN COMPARISON: None TECHNIQUE: Images were obtained in axial, sagittal, and coronal planes. Intravenous contrast was adm inistered. Arterial and venous phase axial imaging was performed. This exam was performed according to our departmental dose-optimization program which includes use of Automated Exposure Control, adjustment of the mA and/or kV according to patient size and/or use of i terative reconstruction technique. FINDINGS: Probable fatty change involving the liver. Unremarkable spleen, pancreas, and adrenal glan ds bilaterally. Distal common bile duct measures 8 mm which is within normal limits following cholecy stectomy. No obstructing renal calcifications bilaterally. No hydronephrosis bilaterally. Unremarkable bladder. Appendix within normal limits. No bowel obstruction, perforation, or inflammation. Bowel loops seen a nterior to right lobe of liver. Elevation right hemidiaphragm. Abnormal appearance endocervical region of the uterus. Submucosal fibroid or mass not excluded. Suspe cted fluid within proximal endometrial cavity. Deviation uterus to the left. Calcification abdominal aorta with no dilatation seen. Unremarkable portal vein. No adenopathy or abn ormal fluid collections seen. Small periumbilical hernia which contains only mesenteric fat. No abnormality lower lungs bilaterally. No acute osseous abnormality. IMPRESSION: Abnormal appearance endocervical region uterus. Correlation with pelvic ultrasound would be suggested to further exclude submucosal fibroid or mass. Abnormal endometrial fluid not excluded. Appendix within normal limits. No obstructing renal calcifications bilaterally. Electronically signed by: Kenisha Goel MD 11/23/2018 9:52 PM CDT Due to temporary technical issues with the PACS/Fluency reporting system, reports are being signed by the in house radiologist as a courtesy to ensure prompt reporting. The interpreting radiologist is f ully responsible for the content of the report.
== END 2018-11-24 02:24 | disposition home or self-care (01) ==
LOC: ER 18:33
DX: N39.0 Urinary tract infection, site not specified (principal); D64.9 Anemia, unspecified; N83.202 Unspecified ovarian cyst, left side; F31.9 Bipolar disorder, unspecified; E11.9 Type 2 diabetes mellitus without complications; I10 Essential (primary) hypertension; F20.9 Schizophrenia, unspecified; Z79.4 Long term (current) use of insulin
CPT/HCPCS: 96365; 87088; 85025; 87086; 80048; 36415; 86900; 81025; 86901; 80076; 80307 ×8; 87077; 87186; 83690; 74177; 76830; 96375; 99284; Q9967; J3010; J0696; J7030; J2405; 81003; 81015

== ENCOUNTER 2019-04-10 00:20 | Inpatient (IN) | payer OTHER ==
--- OUTSIDE RECORDS SUMMARY | 2019-04-10 00:23 | XMS REPORT ---
[...] Active Problem Diabetic neuropathy E11.40 Active Problem FPC current use of insulin Z79.4 Active Problem Insomnia G47.00 Active Problem Osteoarthritis M19.90 Active Problem Anemia D64.9 Active Medications No Known Medications Results No Known Results Summary Purpose eClinicalWorks Submission
[2019-04-10] MEDS ORDERED: NA CHLORIDE 0.9% 1,000 ML ONE (00:32)
[2019-04-10] MEDS ORDERED: ONDANSETRON 4 MG/2 ML VIAL ONE ×2 (00:42→01:04)
[2019-04-10 01:00] LABS: Absolute Lymphocytes (CBC) 1.8 K/uL (0.7-4.9); Basophils % 0.5 % (0-1.3); Hematocrit 23.1 % (36.0-45.0); MPV 9.9 fL (7.6-11.3); RBC Red Blood Cell Count 2.79 M/uL (3.86-4.86)
--- NOTE | 2019-04-10 01:10 | EDPHYS ---
Physician Documentation [facility] [place], [place] [facility] Name: Roya Anne Age: 48 yrs Sex: Female : 1970 Arrival Date: 04/10/2019 Time: 00:23 Bed 6 Private MD: ED Physician Ron Petersen HPI: 04/10 01:18 This 48 yrs old Female presents to ER via EMS with complaints of syncope. tw4 01:18 The patient has experienced syncope, became unresponsive, collapsed. Onset: The tw4 symptoms/episode began/occurred just prior to arrival, today. Duration: This was a single episode, that lasted an unknown period of time. Context: occurred at home. Associated injury: The patient did not suffer any apparent associated injury. Associated signs and symptoms: The patient has no apparent associated signs or symptoms. Current symptoms: Currently, the patient is not experiencing any symptoms. The patient has not experienced similar symptoms in the past. DISTRICT TRAFFIC CHIEF: 00:30 LMP 04/10/2019 Historical: - Allergies: 00:27 No Known Allergies; wh - PMHx: 00:27 Anemia; Bipolar disorder; Diabetes - IDDM; Hypertension; neuropathy; Pancreatitis; wh Schizophrenia; - PSHx: 00:27 ; Cholecystectomy; - Immunization history:: Adult Immunizations not up to date. - Social history:: Smoking status: Patient/guardian denies using tobacco. - Ebola Screening: : Patient negative for fever greater than or equal to 101.5 degrees Fahrenheit, and additional compatible Ebola Virus Disease symptoms Patient denies exposure to infectious person. ROS: 01:18 Constitutional: Negative for fever, chills, and weight loss, Eyes: Negative for injury, tw4 pain, redness, and discharge, Cardiovascular: Negative for chest pain, palpitations, and edema, Respiratory: Negative for shortness of breath, cough, wheezing, and pleuritic chest pain, Abdomen/GI: Negative for abdominal pain, nausea, vomiting, diarrhea, and constipation, Back: Negative for injury and pain, MS/Extremity: Negative for injury and deformity, Skin: Negative for injury, rash, and discoloration, Neuro: Negative for headache, weakness, numbness, tingling, and seizure. 01:18 : Positive for vaginal bleeding, Negative for injury or acute deformity, urinary symptoms, urinary frequency, small amounts, hematuria, pelvic pain, flank pain, burning with urination, difficulty urinating, bladder incontinence, foul smelling urine, vaginal discharge, vaginal itching, menstrual abnormality, missed period, testicular pain Exam: 01:18 Abdomen/GI: Inspection: abdomen appears normal, Bowel sounds: normal, Palpation: soft. tw4 01:18 Constitutional: This is a well developed, well nourished patient who is awake, alert, and in no acute distress. Head/Face: Normocephalic, atraumatic. Chest/axilla: Normal chest wall appearance and motion. Nontender with no deformity. No lesions are appreciated. Cardiovascular: Regular rate and rhythm with a normal S1 and S2. No gallops, murmurs, or rubs. Normal PMI, no JVD. No pulse deficits. Respiratory: Lungs have equal breath sounds bilaterally, clear to auscultation and percussion. No rales, rhonchi or wheezes noted. No increased work of breathing, no retractions or nasal flaring. Abdomen/GI: Soft, non-tender, with normal bowel sounds. No distension or tympany. No guarding or rebound. No evidence of tenderness throughout. 01:18 Skin: Warm, dry with normal turgor. Normal color with no rashes, no lesions, and no evidence of cellulitis. MS/ Extremity: Pulses equal, no cyanosis. Neurovascular intact. Full, normal range of motion. Neuro: Awake and alert, GCS 15, oriented to person, place, time, and situation. Cranial nerves II-XII grossly intact. Motor strength 5/5 in all extremities. Sensory grossly intact. Cerebellar exam normal. Normal gait. 01:18 Eyes: Conjunctiva: pale, bilaterally. Vital Signs: 00:30 BP 110 / 75; Pulse 119; Resp 18; Temp 97.5; Pulse Ox 100% ; Weight 68.04 kg; Height 5 wh ft. 2 in. (157.48 cm); 01:10 BP 128 / 90; Pulse 105; Resp 18; Pulse Ox 100% on R/A; ea 02:00 BP 106 / 72; Pulse 91; Resp 18; Pulse Ox 100% ; ea 03:12 BP 96 / 72; Pulse 116; Resp 18; Temp 97.5; Pulse Ox 100% ; ea 00:30 Body Mass Index 27.44 (68.04 kg, 157.48 cm) wh MDM: 00:23 Patient medically screened. tw4 01:31 Data reviewed: vital signs, nurses notes. tw4 04/10 00:28 Order name: Basic Metabolic Panel tw4 04/10 00:28 Order name: CBC with Diff tw4 04/10 00:28 Order name: Type And Screen tw4 04/10 01:08 Order name: CBC with Automated Diff EDMS 04/10 01:40 Order name: Basic Metabolic Panel; Complete Time: 02:04 EDMS 04/10 01:42 Order name: Type and Screen EDMS 04/10 00:28 Order name: IV Saline Lock; Complete Time: 00:46 tw4 04/10 02:04 Order name: CBC Smear Scan EDMS 04/10 03:24 Order name: Glucose, Ancillary Testing EDMS 04/10 00:28 Order name: Labs collected and sent; Complete Time: 00:46 tw4 04/10 00:28 Order name: NPO; Complete Time: 00:46 tw4 Administered Medications: 00:45 Drug: NS 0.9% 1000 ml Route: IV; Rate: 1 bolus; Site: right forearm; ea 02:30 Follow up: IV Status: Completed infusion; IV Intake: 1000ml tl1 00:45 Drug: Zofran 4 mg Route: IVP; Site: right forearm; ea 01:08 Follow up: Response: No adverse reaction ea 01:09 Drug: Zofran 4 mg Route: IVP; Infused Over: 2 mins; Site: right forearm; tl1 02:36 Follow up: Response: No adverse reaction; Nausea is decreased ea 02:29 Drug: Insulin Regular Human 10 units {Co-Signature: cristy (Bernie Rojas RN).} Route: IVP; tl1 Infused Over: 3 mins; Site: right forearm; 03:40 Follow up: Response: No adverse reaction ea 02:30 Drug: Phenergan 12.5 mg Route: IVP; Infused Over: 2 mins; Site: right forearm; tl1 03:30 Follow up: Response: No adverse reaction; Nausea is decreased cristy Point of Care Testing: Blood Glucose: 03:12 Blood Glucose: 491 mg/dL; ea Ranges: Critical Glucose Levels:Adult <50 mg/dl or >400 mg/dl <40 mg/dl or >180 mg/dl Disposition: 04/10/19 01:09 Hospitalization ordered by Ni Chi for Inpatient Admission. Preliminary diagnosis is Acute posthemorrhagic anemia. - Bed requested for Telemetry/MedSurg (Inpatient). - Status is Inpatient Admission. ea - Condition is Stable. - Problem is an ongoing problem. - Symptoms have worsened. UTI on Admission? No Signatures: Dispatcher [employer] EDMS Marcia Nunez RN RN tl1 Lucinda Graves RN CHARLEY Bernie Rojas RN RN ea Habalo, Winsy wh Wadley, Terrence, MD MD tw4 Bernie Rojas RN, ea Corrections: (The following items were deleted from the chart) 03:20 01:09 Hospitalization Ordered by Ni Chi MD for Inpatient Admission. Preliminary cg diagnosis is Acute posthemorrhagic anemia. Bed requested for Telemetry/MedSurg (Inpatient). Status is Inpatient Admission. Condition is Stable. Problem is an ongoing problem. Symptoms have worsened. UTI on Admission? No. tw4 03:56 03:20 04/10/2019 01:09 Hospitalization Ordered by Ni Chi MD for Inpatient ea Admission. Preliminary diagnosis is Acute posthemorrhagic anemia. Bed requested for Telemetry/MedSurg (Inpatient). Status is Inpatient Admission. Condition is Stable. Problem is an ongoing problem. Symptoms have worsened. UTI on Admission? No. cg
--- NOTE | 2019-04-10 01:10 | ER ---
Nurse's Notes [facility] Name: Roya Anne Age: 48 yrs Sex: Female : 1970 Arrival Date: 04/10/2019 Time: 00:23 Bed 6 Private MD: Diagnosis: Acute posthemorrhagic anemia Presentation: 04/10 00:24 Presenting complaint: EMS states: Pt C/O vainal discharge with clots for 3 days now. wh Also C/O Nausea, heart burn and vomiting. Pt with Hx of vaginal bleeding with BT before. Transition of care: patient was not received from another setting of care. Onset of symptoms was April 08, 2019. Risk Assessment: Do you want to hurt yourself or someone else? Patient reports no desire to harm self or others. Initial Sepsis Screen: Does the patient meet any 2 criteria? HR > 90 bpm. Does the patient have a suspected source of infection? No. Patient's initial sepsis screen is negative. Care prior to arrival: BGL check was high per EMS. 00:24 Method Of Arrival: EMS: [facility] 00:24 Acuity: AGATA 3 BLANKET BINDER: 00:30 LMP 04/10/2019 Historical: - Allergies: 00:27 No Known Allergies; - PMHx: 00:27 Anemia; Bipolar disorder; Diabetes - IDDM; Hypertension; neuropathy; Pancreatitis; Schizophrenia; - PSHx: 00:27 ; Cholecystectomy; wh - Immunization history:: Adult Immunizations not up to date. - Social history:: Smoking status: Patient/guardian denies using tobacco. - Ebola Screening: : Patient negative for fever greater than or equal to 101.5 degrees Fahrenheit, and additional compatible Ebola Virus Disease symptoms Patient denies exposure to infectious person. Screenin:27 Abuse screen: Denies threats or abuse. Denies injuries from another. Nutritional screening: No deficits noted. Tuberculosis screening: No symptoms or risk factors identified. Fall Risk None identified. Assessment: 00:47 General: Appears uncomfortable, Behavior is appropriate for age. Pain: Denies pain. ea Neuro: Level of Consciousness is awake, alert, obeys commands, Oriented to person, place, time, situation. Cardiovascular: Patient's skin is warm and dry. Respiratory: Airway is patent Respiratory effort is even, unlabored, Respiratory pattern is regular, symmetrical. : Reports vaginal bleeding that is with clots, heavy flow. Derm: Skin is dry, Skin is pale, Skin temperature is warm. 01:00 Reassessment: Patient and/or family updated on plan of care and expected duration. Pain ea level reassessed. Patient is alert, oriented x 3, equal unlabored respirations, skin warm/dry/pink. 01:14 Reassessment: Critical result of Hgb 7.4, provider notified. ea 01:42 Reassessment: Critical result Glucose 622, provider notified. ea 01:52 Reassessment: Patient and/or family updated on plan of care and expected duration. Pain ea level reassessed. Pt alert and oriented x 3. Respirations even and unlabored. Chest expansions even and symmetrical. No s/s of pain or discomfort noted at this time. Awaiting on lab results. 02:30 Reassessment: Pt alert and oriented x 3, respirations even and unlabored. Chest ea expansions even and symmetrical. No s/s of pain or discomfort noted at this time. Significant other remains at bedside. 03:38 Reassessment: Patient and/or family updated on plan of care and expected duration. Pain ea level reassessed. Report called to Benji WHITEHEAD. 03:54 Reassessment: Patient and/or family updated on plan of care and expected duration. Pain ea level reassessed. Pt admitted to fourth floor. Pt alert and oriented x 3, respirations even and unlabored, chest expansions even and symmetrical. Pt left ED via stretcher per tech, accompanied by family. Pt tolerating well. Vital Signs: 00:30 BP 110 / 75; Pulse 119; Resp 18; Temp 97.5; Pulse Ox 100% ; Weight 68.04 kg; Height 5 wh ft. 2 in. (157.48 cm); 01:10 BP 128 / 90; Pulse 105; Resp 18; Pulse Ox 100% on R/A; ea 02:00 BP 106 / 72; Pulse 91; Resp 18; Pulse Ox 100% ; ea 03:12 BP 96 / 72; Pulse 116; Resp 18; Temp 97.5; Pulse Ox 100% ; ea 00:30 Body Mass Index 27.44 (68.04 kg, 157.48 cm) ED Course: 00:23 Patient arrived in ED. 00:23 Ron Petersen MD is Attending Physician. tw4 00:26 Triage completed. wh 00:27 Patient has correct armband on for positive identification. Placed in gown. Bed in low wh position. Call light in reach. Side rails up X 1. Pulse ox on. NIBP on. 00:46 Inserted saline lock: 20 gauge in left antecubital area, using aseptic technique. Blood ea collected. Per Marcia WHITEHEAD. 00:46 Inserted saline lock: 22 gauge in left forearm, using aseptic technique. oe 00:47 Arm band placed on right wrist. Patient placed in an exam room, on a stretcher, on ea pulse oximetry. 01:07 Ron Petersen MD is Hospitalizing Provider. tw4 01:07 Ni Chi MD is Hospitalizing Provider. tw4 03:48 No provider procedures requiring assistance completed. Patient admitted, IV remains in ea place. Administered Medications: 00:45 Drug: NS 0.9% 1000 ml Route: IV; Rate: 1 bolus; Site: right forearm; ea 02:30 Follow up: IV Status: Completed infusion; IV Intake: 1000ml tl1 00:45 Drug: Zofran 4 mg Route: IVP; Site: right forearm; ea 01:08 Follow up: Response: No adverse reaction ea 01:09 Drug: Zofran 4 mg Route: IVP; Infused Over: 2 mins; Site: right forearm; tl1 02:36 Follow up: Response: No adverse reaction; Nausea is decreased ea 02:29 Drug: Insulin Regular Human 10 units {Co-Signature: cristy (Bernie Rojas RN).} Route: IVP; tl1 Infused Over: 3 mins; Site: right forearm; 03:40 Follow up: Response: No adverse reaction ea 02:30 Drug: Phenergan 12.5 mg Route: IVP; Infused Over: 2 mins; Site: right forearm; tl1 03:30 Follow up: Response: No adverse reaction; Nausea is decreased cristy Point of Care Testing: Blood Glucose: 03:12 Blood Glucose: 491 mg/dL; ea Ranges: Intake: 02:30 IV: 1000ml; Total: 1000ml. tl1 Outcome: 01:09 Decision to Hospitalize by Provider. tw4 02:00 Instructed on the need for admit, Demonstrated understanding of instructions. ea 03:53 Admitted to Med/surg accompanied by tech, via stretcher, room 426, with chart, Report ea called to Benji WHITEHEAD 03:53 Condition: stable 03:56 Patient left the ED. ea Signatures: Marcia Nunez, RN RN tl1 Tavo Colvin Elena RN RN ea Martin Paz Terrence, MD MD tw4 Bernie Rojas RN, ea Corrections: (The following items were deleted from the chart) 02:35 01:15 Response: No adverse reaction; Nausea is decreased ea ea 02:36 01:50 Response: No adverse reaction; Nausea is decreased ea ea
[2019-04-10 01:39] LABS: Potassium 4.2 mmol/L (3.5-5.1)
[2019-04-10 02:02] LABS: Blood Morphology Comment NOTED (NOT SEEN); Platelet Estimate ADEQ; Urine White Blood Cell Casts OK
[2019-04-10 02:03] LABS: Anisocytosis 2+; Ovalocytes 1+
[2019-04-10] MEDS ORDERED: PROMETHAZINE INJ 25 MG/ML AMP ONE (02:24)
[2019-04-10] MEDS ORDERED: INSULIN -REGULAR HUMAN 50 UNIT/0.5 ML ML ONE (02:24)
[2019-04-10] MEDS ORDERED: ONDANSETRON 4 MG/2 ML VIAL IV PRN (03:05)
[2019-04-10] MEDS ORDERED: ACETAMINOPHEN 500 MG TAB PO PRN (03:05)
[2019-04-10] MEDS ORDERED: GLUCAGON 1 MG/VIAL IM PRN ×2 (03:05→08:58)
[2019-04-10] MEDS ORDERED: D50W 25 GM/50 ML SYRINGE/VIAL IV PRN ×2 (03:05→08:58)
[2019-04-10] MEDS ORDERED: INSULIN GLARGINE 100 UNITS/ML SQ ONE (04:00)
[2019-04-10] MEDS ORDERED: HYDROCORTISONE SUC 100 MG INJ IV ONE (04:15)
[2019-04-10] MEDS ORDERED: ACETAMINOPHEN 325 MG TABLET PO ONE (04:15)
[2019-04-10] MEDS ORDERED: DIPHENHYDRAMINE 50 MG/ML VIAL IV ONE (04:15)
[2019-04-10] MEDS: NA CHLORIDE 0.9% 1,000 ML IV SCH ×3 (04:20→22:38)
[2019-04-10 04:38] VITALS: BMI 27.9
[2019-04-10] MEDS ORDERED: NA CHLORIDE 0.9% 250 ML ONE ×2 (05:00→09:25)
[2019-04-10] MEDS ORDERED: INSULIN 70/30 100 UNITS/ML SQ ONE ×2 (05:41→06:55)
--- NOTE | 2019-04-10 07:42 | P.HP ---
Certification for Inpatient Patient admitted to: Observation With expected LOS: <2 Midnights Patient will require the following post-hospital care: None Practitioner: I am a practitioner with admitting privileges, knowledge of patient current condition, hospital course, and medical plan of care. Services: Services provided to patient in accordance with Admission requirements found in Title 42 Section 412.3 of the Code of Federal Regulations Patient History Date of Service: 04/10/19 Reason for admission: Syncope/Menorrhagia/ hyperglycemia History of Present Illness: Patient is a 48-year-old female who has a history of uterine fibroids with menorrhagia and has had long standing history of anemia because of this. She also has a history of bipolar disorder and schizophrenia. She really has not taking care of her abnormal uterine bleeding. She was at home in passed out yesterday. She became unresponsive. She was brought into the ER and she was found have a hemoglobin of 7.4. She was orthostatics in the emergency room. She had been having some heavy bleeding recently. She has been told she has fibroids in this may be the etiology of her heavy periods. Will go ahead and Consult gynecology. Will transfuse her 2 units of packed red blood cells. Check iron indices as well as reticulocyte. She will probably need outpatient workup to resolve her heavy periods. Patient was also found have poorly-controlled blood sugars. She said her insulin pump is not working. She needs to try to make it out to see a it infrastructure engineer. Will have her referred to [facility] endocrinology as an outpatient. Allergies No Known Allergies Allergy (Verified 03/29/17 16:06) Home Medications: Albuterol Sulfate [Proair Hfa] 1 puff IN QID 01/20/18 Dexlansoprazole [Dexilant] 60 mg PO DAILY 01/20/18 Linaclotide [Linzess] 290 mcg PO DAILY 01/20/18 Ondansetron HCl [Zofran] 4 mg PO BID 01/20/18 Pregabalin [Lyrica*] 150 mg PO BID 01/20/18 Quetiapine Fumarate [Seroquel] 300 mg PO BID 01/20/18 Acetaminophen with Codeine [Acetaminophen-Cod #3 Tablet] 1 tab PO BID 04/10/19 Budesonide/Formoterol Fumarate [Symbicort 160-4.5 Mcg Inhaler] 2 puff IH BID Dicyclomine [Bentyl*] 20 mg PO BID 04/10/19 Insulin Glargine,Hum.rec.anlog [Tourosalee Tobin Solostar] 30 units SQ BEDTIME Insulin Lispro [Humalog*] 10 units SQ TID 04/10/19 Methocarbamol 1 tab PO BID 04/10/19 Norgestimate-Ethinyl Estradiol [Femynor 28 Tablet] 1 tab PO DAILY 04/10/19 - Past Medical/Surgical History Has patient received pneumonia vaccine in the past: Yes Diabetic: Yes -: Bipolar Disorder -: Schizophrenia -: IDDM -: Hyperlipidemia -: neuropathy -: TB-treated 4 years ago -: anemia -: chronic neck pain -: pancreatitis -: TB -: Cataract removal -: Cholecystectomy -: x 3 Psychosocial/ Personal History: Patient lives at home. She does not work. She is disabled due to her mental illness. - Family History Mother Medical History: Diabetes - Social History Smoking Status: Former smoker Alcohol use: No CD- Drugs: No Caffeine use: Yes Place of Residence: Home Review of Systems 10-point ROS is otherwise unremarkable Physical Examination - Vital Signs Temperature: 97.4 F Blood Pressure: 99/54 Pulse: 109 Respirations: 16 Pulse Ox (%): 100 - Physical Exam General: Alert, In no apparent distress, Oriented x3 HEENT: Atraumatic, PERRLA, Mucous membr. moist/pink, EOMI, Sclerae nonicteric Neck: Supple, 2+ carotid pulse no bruit, No LAD, Without JVD or thyroid abnormality Respiratory: Clear to auscultation bilaterally, Normal air movement Cardiovascular: Regular rate/rhythm, Normal S1 S2, No murmurs Gastrointestinal: Normal bowel sounds, Soft and benign, Non-distended, No tenderness Musculoskeletal: No clubbing, No swelling, No tenderness Integumentary: No rashes Neurological: Normal gait, Normal speech, Normal strength at 5/5 x4 extr, Normal tone, Sensation intact, Cranial nerves 3-12 intact, Normal affect Lymphatics: No axilla or inguinal lymphadenopathy - Studies Laboratory Data (last 24 hrs) 04/10/19 00:25: WBC 6.1, Hgb 7.4 L*, Hct 23.1 L, Plt Count 137 L 04/10/19 00:25: Sodium 131 L, Potassium 4.2, BUN 20 H, Creatinine 1.23, Glucose 622 H* Assessment & Plan - Problems (Diagnosis) (1) Menorrhagia Current Visit: Yes Status: Acute (2) Uterine fibroid Current Visit: Yes Status: Acute (3) Poorly controlled diabetes mellitus Current Visit: Yes Status: Acute (4) Anemia Onset Date: 11/04/16 Current Visit: No Status: Chronic Qualifiers: (5) Bipolar disorder Onset Date: 03/14/17 Current Visit: No Status: Chronic (6) Diabetes mellitus Onset Date: 01/23/18 Current Visit: No Status: Chronic Qualifiers: (7) Schizophrenia Onset Date: 03/14/17 Current Visit: No Status: Chronic Qualifiers: (8) Tetrahydrocannabinol (THC) use disorder, mild, abuse Current Visit: No Status: Chronic (9) Tobacco abuse Current Visit: No Status: Chronic - Plan Plan: 1. Gynecology consultation 2. Patient may benefit from Depakote shot 3. Finishing Range Feeder regarding refrain from tobacco use 4. She needs to start taking her psychiatric medications more regularly. She is not making really good decisions regarding her health because of this. Referred to [facility] 5. Transfuse 2 units of packed red blood cells. Patient is orthostatics and she had a syncopal episode. Will check iron indices along with B12 level and folic acid level. Will also check a reticulocyte count. She may need to continue with iron supplementation at discharge 6. Strict blood sugar control; outpatient referral to Endocrinology 7. She may need a hysterectomy in the near future to resolve these issues. Will await gynecological consultation 8. GI and DVT prophylaxis Discharge Plan: Home Plan to discharge in: 48 Hours - Advance Directives Does patient have a Living Will: No Does patient have a Durable POA for Healthcare: No - Code Status/Comfort Care Code Status Assessed: Yes Code Status: Full Code Critical Care: No Time Spent Managing PTS Care (In Minutes): 45
[2019-04-10 07:56] LABS: Urine Appearance CLEAR; Urine Bilirubin NEGATIVE (NEG); Urine Blood 3+ (NEG); Urine Color YELLOW; Urine Glucose 3+ (NEG); Urine Protein NEGATIVE (NEG); Urine Specific Gravity >=1.030 (1.005-1.030); Urine Urobilinogen 0.2 mg/dL (0.2-1.0); Urine pH 5.5 (5.0-7.0)
[2019-04-10 08:31] LABS: Urine Microscopic Reflex ORDER UMIC
[2019-04-10 08:37] LABS: Absolute Lymphocytes (CBC) 0.7 K/uL (0.7-4.9); Basophils % 0.1 % (0-1.3); Hematocrit 22.7 % (36.0-45.0); Lymphocytes % 7.2 % (15.3-44.8); MPV 10.4 fL (7.6-11.3); RBC Red Blood Cell Count 2.74 M/uL (3.86-4.86)
[2019-04-10 08:38] LABS: Protime INR 0.95
[2019-04-10 08:41] LABS: Urine Bacteria >50 /HPF (<20); Urine Culture Reflex Order REFLEXED; Urine RBC >50 /HPF (NONE SEEN)
[2019-04-10 08:43] LABS: Albumin 2.9 g/dL (3.4-5.0); Bilirubin Total 0.2 mg/dL (0.2-1.0); Potassium 4.2 mmol/L (3.5-5.1)
[2019-04-10] MEDS ORDERED: INSULIN -REGULAR HUMAN 50 UNIT/0.5 ML ML SQ ONE (09:01)
[2019-04-10] MEDS: INSULIN -REGULAR HUMAN 50 UNIT/0.5 ML ML SQ SCH ×4 (09:25→20:21)
[2019-04-10 11:30] LABS: Basophils % 0.4 % (0-1.3); Hematocrit 22.9 % (36.0-45.0); Lymphocytes % 11.6 % (15.3-44.8); MPV 9.9 fL (7.6-11.3)
[2019-04-10 12:13] LABS: Folic Acid, (Folate) 17.1 ng/mL (3.1-17.5)
[2019-04-10] MEDS ORDERED: FUROSEMIDE 40 MG/4 ML VIAL IV ONE (13:23)
[2019-04-10] MEDS ORDERED: POLYETHYL GLY 3350 17 GM/DOSE PO PRN (14:57)
[2019-04-10 17:43] LABS: Hematocrit 27.8 % (36.0-45.0)
--- NOTE | 2019-04-10 17:48 | RAD REPORT ---
EXAM DESCRIPTION: US - Transvaginal Study Probe - 04/10/2019 4:28 pm CLINICAL HISTORY: Abnormal uterine bleeding, fibroid COMPARISON: CT study November 23, 2018, pelvic ultrasound November 23, 2018 TECHNIQUE: Endovaginal sonography was performed. FINDINGS: Uterus is approximately 11.4 x 5.5 x 4.9 cm. In the cervix endocervical canal region a het erogeneous 3 centimeter mass is present. This dilates the endocervical canal. The small fibroid seen in the anterior body the uterus on the November 23 ultrasound is not clearly identifiable on this study. The endometrial mass effect could be hemorrhagic material secondary to a stricture or mass near the c ervical external os. Cervical canal mass cannot be excluded due to questionable vascularity of the ma ss. Right ovary was obscured by bowel. Left ovary is identified and shows no suspicious finding. No blood or fluid in the cul de sac. IMPRESSION: Approximately 3 centimeter mass at the endocervical canal matching the CT finding. There is questionable vascularity. Given the vascular finding, solid mass of the cervix cannot be excluded. Hemorrhagic material due to a external cervical os stricture or mass (hydrometrocolpos) also a differential consideration. Right ovary is obscured by bowel. No right adnexal abnormality suspected. No left ovary or left adnex al abnormality.
--- NOTE | 2019-04-10 18:16 | PN ---
Date of Progress Note: 04/10/2019 Subjective: Patient is seen and examined. Chart reviewed and case discussed with RN. Patient is still having bleeding. She has pending Bakery Products Checker evaluation. Patient received 2 units of PRBCs today. Medications: List reviewed. Physical Examination: Vital Signs: Temperature 97.9, heart rate 99, blood pressure 109/64, respirations 16, O2 96% on room air. General: Awake, alert, oriented x3, ill-appearing female. CV: S1, S2. Regular rate and rhythm. Peripheral pulses present. Respiratory: Moving air well bilaterally. No wheezing or stridor. Gastrointestinal: Abdomen is soft, nontender, nondistended. Positive bowel sounds. Extremities: No clubbing, cyanosis, or edema. Neuro: Cranial nerves 2 through 12 intact grossly. No focal neurological deficit. Speech is normal. Laboratory Data: Blood glucose levels between 427 and 270 and 155. Iron level is 12, vitamin B12 450, folate 17. WBC 8.6, H and H 7.7/22.9, platelets 120, 2 hour post transfusion hemoglobin at 4 p.m. Assessment And Plan: 1. Menorrhagia secondary to uterine fibroids. Patient is on hormone therapy at this time. Patient will likely benefit from hysterectomy. 2. Uterine fibroids. Bakery Products Checker consultation pending. 3. Syncope. Likely related to acute blood loss. Check carotid U/S, CT head. EKG. 4. Acute blood loss anemia secondary to above. Patient is scheduled for 2 units of PRBCs today. We will give 40 mg of Lasix after repeat H and H 2 hours post transfusion. 5. Diabetes mellitus type 2, very poorly controlled. We will check hemoglobin A1c. We will adjust insulin dose. 6. Bipolar disorder, stable. 7. Schizophrenia. 8. Cannabinoid use disorder. 9. Nicotine dependence with cigarette smoking, continuous. Plan: Patient will likely benefit from MR as an outpatient. Awaiting Bakery Products Checker evaluation. We will continue with iron supplements on discharge and patient also benefit from endocrinology. Patient due to her uncontrolled diabetes, likely discharge once cleared by Bakery Products Checker. ADDENDUM: Spoke with Dr. Torres. Plan is for D&C in am once medically cleared. Will need to adjust pts insulin due to labile BBGs. Follow up on workup for syncope. SA/MODL Voice ID: [id number] Report ID: [id number] MTDD
--- NOTE | 2019-04-10 19:05 | RAD REPORT ---
EXAM DESCRIPTION: CT - Head Brain Wo Cont - 04/10/2019 6:53 pm CLINICAL HISTORY: Fall, syncope COMPARISON: June 2014 TECHNIQUE: Axial 5 mm thick images of the head were obtained without IV contrast. All CT scans are performed using dose optimization technique as appropriate and may include automated exposure control or mA/KV adjustment according to patient size. FINDINGS: No intracranial hemorrhage, mass, edema or shift of mid-line structures. No acute infarcti on changes seen. No abnormal extra-axial fluid collections. Ventricles are normal. Mastoid air cells and visualized portions of the paranasal sinuses are clear. No acute bony findings. No significant change from comparison. IMPRESSION: Negative non-contrast CT head examination.
--- NOTE | 2019-04-10 19:20 | RAD REPORT ---
EXAM DESCRIPTION: - CP - 04/10/2019 7:13 pm CLINICAL HISTORY: Syncope COMPARISON: None. TECHNIQUE: Real-time sonographic evaluation of both carotid systems was performed. Pollard scale and Do ppler interrogation were performed with waveform tracing bilaterally. FINDINGS: Normal high resistance waveforms are noted in both external carotid arteries. The common c arotid arteries and internal carotid arteries show normal low resistance waveforms. No significant plaque formation is seen. Peak systolic and end diastolic velocity values and the ICA/ CCA ratios are in the non-hemodynamically significant range. Antegrade flow seen in both vertebral arteries. Velocity values and ratios were recorded and are retained in the patient's imaging records. IMPRESSION: No significant atherosclerotic changes noted. No evidence of a hemodynamically significant stenosis.
[2019-04-10] MEDS: PREGABALIN 150 MG CAP PO SCH (20:19)
[2019-04-10] MEDS: DICYCLOMINE HCL 10 MG CAP PO SCH (20:19)
[2019-04-10] MEDS: QUETIAPINE 100MG TAB PO SCH (20:20)
[2019-04-10] MEDS: methocarbamoL 500 MG TAB PO SCH (20:20)
[2019-04-10] MEDS: FERROUS SULFATE 325 MG TAB PO SCH (20:21)
[2019-04-10] MEDS: DOCUSATE NA 100 MG CAP PO SCH (20:21)
[2019-04-10] MEDS: INSULIN GLARGINE 100 UNITS/ML SQ SCH (20:21)
--- NOTE | 2019-04-10 20:58 | CON ---
Date of Consultation: 04/10/2019 Reason For Consultation: Chronic blood loss anemia, symptomatic status post transfusion; history of menorrhagia, the patient is on oral contraceptive combination pills, continues to have heavy clots. History Of Present Illness: The patient is a 48-year-old 6, para 5-0-1-5, presented with syn copal episode to the ER last evening. She has had heavy bleeding and her periods are fairly irregula r. When the bleeding is started, it can last for about 3 to 4 months. There are days where there we re large clots with heavy bleeding and the other days where she has quality rep flow, but most days, she has heavy bleeding and clots. She has had abnormal periods since menarche with heavy bleeding and dysmenorrhea. In the past 5 to 6 years, her bleeding has gotten worse. Her dysmenorrhea has significantly improved to the point that does not bother her as much, then bleeding has gotten much worse. This is her third or fourth trans fusion in the past 5 to 6 years. She has been noncompliant with clinic followup. She had seen Dr. Arnaldo mcnamara in the past as of now as she had not followed up with Dr. Yang and she is being followed by Ekta Singh and she was started on a combination of oral contraceptive pill to help mitigate the ble eding. No urinary symptoms, bowel symptoms, constipation. Review of Systems: On 10-point review of systems; no shortness of breath, currently; however, patient feels fatigued. N o chest pain and dizziness. No other neurological symptoms. Past Gynecologic History: Significant for 6 pregnancies, 5 deliveries, 3 vaginal, 2 , tubal ligation, most recent partner 6 years long. No history of any abnormal Pap smears; however, patient does not recollect when her last Pap smear was that she had her last Pap smear was not done since she continued to bleed and did not follow with her armor officer, Dr. Yang. Then mammogram, a few years ago. Patient is unsure about the date and timing, but negative. No breast symptoms at this time. Past Medical History: Schizophrenia, bipolar disorder, uncontrolled diabetes. As reviewed in the H and P, she has hyperlipidemia, neuropathy, 4 years ago treated for TB and chronic neck pain and pancr eatitis. Past Surgical History: Lap-cristina, cataract surgery, 2 sections and a tubal. Family History: Lung cancer in grandmother, but no ovarian, breast, colon, or uterine cancers. Allergies: NO KNOWN DRUG ALLERGIES. Medication List: Please refer to her H and P. Physical Examination: Vital Signs: Temperature 97.9, pulse 99, 109/64 blood pressure, 16 respirations on room air. General: Patient appears to be pale, but anicteric. No acute distress. Head and Neck: Normal. No jugular venous distention or palpable nodes. Lungs: Clear. Heart: Regular rate and rhythm. Abdomen: Soft, nondistended. On palpation of all quadrants, appeared to be doughy. No tenderness o r rebound. Bimanual pelvic exam was performed. Inguinal nodes negative. Pelvic: Vulva, vagina normal. Cervix palpable anteriorly and 3 cm fibroid likely hanging within the cervical external through the cervical external cervical os in the vaginal canal. Uterus appeared t o be enlarged, multiple fibroids, most likely difficult to assess probably because of its retroflexio n towards the right. I am presuming that this is significantly enlarged at least 12 to 14 week size. Extremities: No edema or calf tenderness and rest of the exam is negative. Neurologic: Patient appears to be alert, aware, and oriented x3. Her thought is a bit scattered and emotionally, she appears to be hyper-stimulated. No other abnormalities were noted. Laboratory Data: Her hemoglobin level was 7.7 from 7.4. Plan is that she just use 2 units of blood transfusion. No other abnormalities. Platelet count slightly low at 137, 117, 120. Currently, she is on acetaminophen, Dextrose, Colace, Feosol, glucagon. Home medications; inhalation daily, insulin, methocarbamol, morphine, ondansetron, pantoprazole, polyethylene glycol, pregabalin, quetiapine, sodium chloride. No diagnostic imaging present at this time. Assessment And Plan: 1.Menorrhagia, chronic menorrhagia for this patient. Needs transvaginal ultrasound, endometrial liz pling, most likely leiomyomata, benign pathology, but sampling these were performed before any other procedures performed. Possible consideration of ablation of the entire cavity appears to be undistor philip. Discussed with the patient and consented her. 2.Chronic blood loss anemia. Transfusion of 3 units has been conducted and her post hematocrit test to arrive once this is over the level of 8, then she does not need a transfusion. 3.Syncopal episode. Patient needs medical clearance prior to her going to the OR and diabetes. Marley ds to restart on her medications and starting 6 hours prior to the procedure tomorrow n.p.o. and she is going to get a medical clearance from Dr. Yang, which I communicated this plan with him. JOSE/NABIL Voice ID: [id number] Report ID: [id number]
[2019-04-10] MEDS ORDERED: HOME MED 1 EA UNK (Budesonide/Formoterol Fumarate [Symbicort 160-4.5 Mcg Inhaler] 2 PUFF) IH SCH (21:00)
[2019-04-11 04:19] LABS: Absolute Lymphocytes (CBC) 2.5 K/uL (0.7-4.9); Basophils % 0.5 % (0-1.3); Hematocrit 22.9 % (36.0-45.0); Lymphocytes % 40.4 % (15.3-44.8); MPV 9.7 fL (7.6-11.3); RBC Red Blood Cell Count 2.79 M/uL (3.86-4.86)
[2019-04-11 04:31] LABS: BUN Blood Urea Nitrogen 10 mg/dL (7-18); Bicarbonate 27 mmol/L (21-32); Glucose Level 149 mg/dL (74-106); Potassium 3.4 mmol/L (3.5-5.1); Sodium Level 141 mmol/L (136-145)
[2019-04-11] MEDS: NA CHLORIDE 0.9% 1,000 ML IV SCH ×2 (06:39→17:00)
[2019-04-11] MEDS: INSULIN -REGULAR HUMAN 50 UNIT/0.5 ML ML SQ SCH ×4 (07:30→20:16)
[2019-04-11] MEDS: DICYCLOMINE HCL 10 MG CAP PO SCH ×2 (08:01→21:07)
[2019-04-11] MEDS: methocarbamoL 500 MG TAB PO SCH ×2 (08:01→21:06)
[2019-04-11] MEDS: PANTOPRAZOLE 40MG TABLET PO SCH (08:02)
[2019-04-11] MEDS: PREGABALIN 150 MG CAP PO SCH ×2 (08:02→21:07)
[2019-04-11] MEDS: DOCUSATE NA 100 MG CAP PO SCH ×2 (08:03→21:07)
[2019-04-11] MEDS: FERROUS SULFATE 325 MG TAB PO SCH ×2 (08:03→21:07)
[2019-04-11] MEDS: INSULIN GLARGINE 100 UNITS/ML SQ SCH ×2 (08:03→21:07)
[2019-04-11] MEDS: QUETIAPINE 100MG TAB PO SCH ×2 (08:03→21:06)
[2019-04-11] MEDS ORDERED: NORGESTIMATE ETHINYL ESTRADIOL PO SCH (09:00)
[2019-04-11] MEDS: HOME MED 1 EA UNK (Linaclotide [Linzess] 290 MCG) PO SCH (09:00)
[2019-04-11] MEDS ORDERED: ALBUTEROL 2.5 MG/3 ML NEB SOL NEB PRN ×2 (09:48→14:00)
[2019-04-11] MEDS ORDERED: IPRATROPIUM BROM 0.5MG/2.5ML NEB PRN ×2 (09:48→14:00)
[2019-04-11 11:25] LABS: Hematocrit 23.9 % (36.0-45.0)
[2019-04-11] MEDS ORDERED: FUROSEMIDE 20 MG/ 2ML VIAL IV SCH ×2 (11:53→16:50)
--- NOTE | 2019-04-11 11:56 | P.PN ---
Subjective Date of Service: 04/11/19 Primary Care Provider: Vaginal bleeding Chief Complaint: Syncope/Menorrhagia/ hyperglycemia Subjective: Other (Patient was able to take a shower but noted increased vaginal bleeding. Patient status post 2 units of blood last night.) Physical Examination - Vital Signs Temperature: 97.9 F Blood Pressure: 132/62 Pulse: 100 Respirations: 16 Pulse Ox (%): 100 - Physical Exam General: Alert, In no apparent distress, Oriented x3, Cooperative HEENT: Atraumatic Neck: Supple Respiratory: Clear to auscultation bilaterally, Normal air movement Cardiovascular: Normal pulses, Regular rate/rhythm Gastrointestinal: Normal bowel sounds, No tenderness, No masses, No rebound, No guarding External genitalia: Other (Patient reports vaginal bleeding) - Studies Medications List Reviewed: Yes Assessment & Plan Discharge Plan: Home Plan to discharge in: 48 Hours Physician Review Additional Text: Impression: Menorrhalgia secondary to uterine fibroids complicated with acute blood loss anemia Syncope related to above UTI Diabetes mellitus type 2 insulin-dependent with hyperglycemia Bipolar disorder Schizophrenia COPD Marijuana use Tobacco abuse Plan: Menorrhalgia secondary to uterine fibroids complicated with acute blood loss anemia: Patient has received 2 units of packed red blood cells. Patient still reports vaginal bleeding this morning. Recheck hemoglobin noted. Will transfuse another unit of blood. Will continue monitor hemoglobin closely. Maintain hemoglobin above 8.0. Will discuss with gynecology about the possibility of surgical intervention today or tomorrow. Gynecology plans for hysteroscopic with possible fibroid removal and/or uterine ablation. Will continue monitor closely. Anticipate discharge in the next 48 hr after surgical procedure and stability with clinical improvement Syncope related to above: Continue as above. UTI: Urine culture shows Gram negative rods. Will start Rocephin. 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 Continue to monitor and adjust basal insulin. Monitor Accu-Cheks and provide sliding scale. Bipolar disorder: Continue with medication. Will check tsh and free T4. Patient would benefit with [facility] evaluation as an outpatient. Schizophrenia: Continue medication. COPD: Continue with medication. Will provide incentive spirometer. Marijuana use: Cessation education provided Tobacco abuse: Cessation education provided. Will consider Nicoderm patch. Time Spent Managing Pts Care (In Minutes): 55
[2019-04-11 12:56] LABS: Thyroid Stimulating Hormone < 0.005 uIU/mL (0.360-3.740)
[2019-04-11] MEDS ORDERED: NA CHLORIDE 0.9% 250 ML ONE ×2 (12:56→17:53)
[2019-04-11] MEDS ORDERED: NA CHLORIDE 0.9% 250 ML IV ONE (15:48)
[2019-04-11 16:12] LABS: Hematocrit 22.4 % (36.0-45.0)
[2019-04-11] MEDS ORDERED: CEFTRIAXONE 1 GM/NS 50 ML 1 GM/50 ML BAG IV SCH (21:00)
[2019-04-11] MEDS: GLUCERNA SHAKE 237 ML CAN PO SCH (21:08)
[2019-04-11] MEDS ORDERED: FUROSEMIDE 20 MG/ 2ML VIAL ONE (22:54)
[2019-04-11] MEDS: CEFTRIAXONE/SWI 1gm 1 GM/10 ML SYR IV SCH (22:57)
[2019-04-12 00:34] LABS: Hematocrit 23.9 % (36.0-45.0)
[2019-04-12 06:19] LABS: BUN Blood Urea Nitrogen 9 mg/dL (7-18); Bicarbonate 25 mmol/L (21-32); Glucose Level 148 mg/dL (74-106); Magnesium 2.3 mg/dL (1.8-2.4); Potassium 3.4 mmol/L (3.5-5.1); Sodium Level 142 mmol/L (136-145)
[2019-04-12 07:12] LABS: Absolute Lymphocytes (CBC) 2.1 K/uL (0.7-4.9); Basophils % 0.5 % (0-1.3); Hematocrit 23.1 % (36.0-45.0); Lymphocytes % 35.4 % (15.3-44.8); MPV 9.4 fL (7.6-11.3); RBC Red Blood Cell Count 2.81 M/uL (3.86-4.86)
[2019-04-12] MEDS: INSULIN -REGULAR HUMAN 50 UNIT/0.5 ML ML SQ SCH ×4 (07:30→21:33)
--- NOTE | 2019-04-12 07:47 | ECHO ---
HEIGHT: 5 ft 2 in WEIGHT: 152 lb 0 oz DATE OF STUDY: 04/11/[address]: Aj Garrett DO 2-DIMENSIONAL: YES M.MODE: YES DOPPLER: YES COLOR FLOW: YES TDS: YES PORTABLE: NO DEFINITY: NO BUBBLE STUDY: NO DIAGNOSIS: CARDIAC CLEARANCE CARDIAC HISTORY: CATHERIZATION: NO SURGERY: NO PROSTHETIC VALVE: NO PACEMAKER: NO MEASUREMENTS (cm) DIASTOLIC (NORMALS) SYSTOLIC (NORMALS) IVSd 1.0 (0.6-1.2) LA Diam 2.7 (1.9-4.0) LVEF 76% LVIDd 3.7 (3.5-5.7) LVIDs 2.1 (2.0-3.5) %FS 44% LVPWd 1.1 (0.6-1.2) Ao Diam 2.7 (2.0-3.7) 2 DIMENSIONAL ASSESSMENT: RIGHT ATRIUM: NORMAL LEFT ATRIUM: NORMAL RIGHT VENTRICLE: NORMAL LEFT VENTRICLE: NORMAL TRICUSPID VALVE: NORMAL MITRAL VALVE: NORMAL PULMONIC VALVE: NORMAL AORTIC VALVE: NORMAL PERICARDIAL EFFUSION: NONE AORTIC ROOT: NORMAL LEFT VENTRICULAR WALL MOTION: NORMAL DOPPLER/COLOR FLOW: NORMAL COMMENTS: NORMAL 2D ECHOCARDIOGRAM WITH DOPPLER. TECHNOLOGIST: Wesly VARGAS
[2019-04-12] MEDS: DICYCLOMINE HCL 10 MG CAP PO SCH ×2 (09:00→21:00)
[2019-04-12] MEDS: methocarbamoL 500 MG TAB PO SCH ×2 (09:00→21:35)
[2019-04-12] MEDS: INSULIN GLARGINE 100 UNITS/ML SQ SCH ×2 (09:00→21:33)
[2019-04-12] MEDS: FERROUS SULFATE 325 MG TAB PO SCH ×2 (09:00→21:32)
[2019-04-12] MEDS: PANTOPRAZOLE 40MG TABLET PO SCH (09:00)
[2019-04-12] MEDS: QUETIAPINE 100MG TAB PO SCH ×2 (09:00→21:34)
[2019-04-12] MEDS: PREGABALIN 150 MG CAP PO SCH ×2 (09:00→21:34)
[2019-04-12] MEDS: DOCUSATE NA 100 MG CAP PO SCH ×2 (09:00→21:00)
[2019-04-12] MEDS: HOME MED 1 EA UNK (Linaclotide [Linzess] 290 MCG) PO SCH (09:00)
[2019-04-12] MEDS: GLUCERNA SHAKE 237 ML CAN PO SCH ×2 (09:00→21:36)
[2019-04-12] MEDS: CEFTRIAXONE/SWI 1gm 1 GM/10 ML SYR IV SCH (09:01)
[2019-04-12] MEDS: MORPHINE 2 MG/ML SYR IV PRN ×2 (09:07→13:11)
[2019-04-12] MEDS: NA CHLORIDE 0.9% 1,000 ML IV SCH (13:12)
--- NOTE | 2019-04-12 13:17 | P.PN ---
Subjective Date of Service: 04/12/19 Primary Care Provider: Vaginal bleeding Chief Complaint: Syncope/Menorrhagia/ hyperglycemia Subjective: Doing well Physical Examination - Vital Signs Temperature: 97.5 F Blood Pressure: 115/76 Pulse: 102 Respirations: 18 Pulse Ox (%): 100 - Physical Exam General: Alert, In no apparent distress, Oriented x3 HEENT: Atraumatic Neck: Supple Respiratory: Clear to auscultation bilaterally, Normal air movement Cardiovascular: Normal pulses, Regular rate/rhythm Gastrointestinal: Normal bowel sounds, Soft and benign, Non-distended, No tenderness, No masses, No rebound, No guarding Neurological: Normal speech, Normal strength at 5/5 x4 extr, Normal tone, Normal affect - Studies Medications List Reviewed: Yes Assessment & Plan Discharge Plan: Home Plan to discharge in: 24 Hours Physician Review Additional Text: Impression: Menorrhalgia secondary to uterine fibroids complicated with acute blood loss anemia Syncope related to above UTI, urine culture positive for E. coli Diabetes mellitus type 2 insulin-dependent with hyperglycemia Bipolar disorder Schizophrenia COPD Marijuana use Tobacco abuse Plan: Menorrhalgia secondary to uterine fibroids complicated with acute blood loss anemia: Patient has received multiple transfusions. Hemoglobin stable at this time. Patient to have surgical intervention by gynecology today. Possible fibroid removal with uterine ablation likely. Await further findings and recommendations by gynecology. Possible discharge later today if cleared by gynecology. Tsh is low. Will recommend to recheck tsh, free T4 levels in the future. Patient may require endocrine evaluation for further analysis. Syncope related to above: Continue as above. UTI, urine culture positive for E. coli: Urine culture positive for E coli. Will transition to Bactrim. Patient will need treatment for 7 days. 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 Continue to monitor and adjust basal insulin. Monitor Accu-Cheks and provide sliding scale. Bipolar disorder: Continue with medication. Patient would benefit with [facility] evaluation as an outpatient. Schizophrenia: Continue medication. COPD: Continue with medication. Will provide incentive spirometer. Marijuana use: Cessation education provided Tobacco abuse: Cessation education provided. Will consider Nicoderm patch. Time Spent Managing Pts Care (In Minutes): 55
[2019-04-12] MEDS: MORPHINE 4 MG/ML SYR ONE ×2 (16:07→16:08)
[2019-04-12] MEDS ORDERED: LIDOCAINE 2% MPF 5 ML VIAL ONE (16:29)
[2019-04-12] MEDS ORDERED: FENTANYL CITR 100 MCG/2 ML ONE (16:29)
[2019-04-12] MEDS ORDERED: propofoL 200 MG/20 ML VIAL IV ONE (16:29)
[2019-04-12] MEDS ORDERED: MIDAZOLAM HCL 2 MG/2 ML INJ ONE (16:29)
[2019-04-12] MEDS ORDERED: dexAMETHasone 10 MG/ML VIAL ONE (16:50)
[2019-04-12] MEDS ORDERED: KETOROLAC 30 MG/ML INJ ONE (16:50)
[2019-04-12] MEDS ORDERED: ONDANSETRON 4 MG/2 ML VIAL ONE (16:50)
[2019-04-12 18:56] LABS: Hematocrit 23.1 % (36.0-45.0)
[2019-04-12] MEDS ORDERED: MEDROXYPROGEST ACET 150 MG/ML IM SCH (19:00)
[2019-04-12] MEDS ORDERED: SMZ./TMP. 800/160 MG TABLET PO SCH (21:00)
[2019-04-12] MEDS ORDERED: NA CHLORIDE 0.9% 250 ML ONE (21:34)
[2019-04-12 23:05] VITALS: O2SAT 100
[2019-04-13] MEDS: NA CHLORIDE 0.9% 1,000 ML IV SCH (01:28)
--- NOTE | 2019-04-13 02:48 | OP ---
Date of Procedure: 04/12/2019 Surgeon: Lainey Torres MD Preoperative Diagnoses: Menorrhagia, fibroids, chronic blood-loss anemia, status post transfusion (A UB-L). Postoperative Diagnoses: Menorrhagia, fibroids, chronic blood-loss anemia, status post transfusion ( AUB-L). Type 1 leiomyoma about 6 cm x 3 prolapsed through the cervix into the vaginal canal. Procedure Performed: Hysteroscopy, myomectomy, endometrial sampling with D and C using the MyoSure d evice. Anesthesia: General with LMA. Specimens: Fibroid and endometrial curettings. Complications: No complications. Drains: No drains. Condition: The patient's condition is stable. Findings: Uterus enlarged, difficult assessment due to the presence of rock-hard stool in the rectum as well as possibly the sigmoid. Unsure if this is a cul-de-sac mass, calcified fibroid, or stool. So, we will review her imaging studies if CT is present to differentiate this. On external examinat ion, cervical mass was found, which appeared to be a leiomyoma prolapsing from her uterine cavity and on hysteroscopic exam this finding was confirmed. The myoma was arising from the left posterolatera l wall. There were 2 other polyps at the fundal aspect towards the left coronal end. The entire spe cimen was removed and fluid deficit 80 mL of normal saline. Indictions For Procedure: After informed consent was verified, patient was taken back to OR. She dc d a preop cardiac clearance. She was extremely upset and we had to discuss with her about the proced ure and ask her permission if she wants us to proceed with the procedure and once I came out as the [facility] staff had reported to me that she was speaking in some bad language. When I talked to her, jocelynn hollis appeared to be calmer and desired to have this procedure. She was in pain from her left hip and mo st likely from her hip joint. She wanted some pain medications. Once morphine was given, she was be tter, but she was consented for hysteroscopy, myomectomy, D and C. This is her third transfusion. S o she consented for it. Bleeding, infection, perforation of the uterus were all reviewed with the pa tieervin and if cancer was found, then we would treat her later that was the plan. Description Of Procedure: She was taken back to the OR, placed in a supine fashion on the operating table. After general anesthesia was given, she was placed in a dorsal lithotomy position. Pelvic ex am performed and prep x3 with Betadine was done, vulva, vagina, and perineum. Speculum placed to exp ose the cervix. Anterior lip grasped with 2 Allis clamps. Given the size of the prolapsed fibroid, I determined that if I wanted to evaluate the endometrium with the hysteroscope, that it would be bet ter to leave the mass in place and then go ahead and look with the scope sample endometrium and while visualization is present and then hopefully resect the base of the fibroid so it can easily come out . So, MyoSure device was primed, normal saline for distention was used and a 0-degree lens. Once in the cavity, the polyps were removed, the endometrial was sampled, then myoma was resected at its bas e. Then scope pulled out, myoma was twisted around with the single-tooth tenaculum on the external a spect in the vaginal canal and then it came out extremely easily since it was cut at the base. These were all handed out for permanent pathology. Fluid deficit was 80 mL after the entire fluid co llection system was emptied out. Instruments were removed. Instruments, needle, and sponge counts were done and were correct at the e nd of the case. She had some bleeding, however this was not very heavy compared to what she had when she came in. The cervix appeared to be patulous, but this should go back to its normal size since t he mass is removed. Instrument, needle, and sponge counts were done and were correct at the end of t he case. The patient recovered from anesthesia in the OR and taken to the PACU in stable condition. She will follow up with me in the office postop in a week and then we can go from there. Depot medr oxyprogesterone is recommended for this patient. I recommend that her oral contraceptives must be stopped. EBL 50 mL. JOSE/NABIL Voice ID: [id number] Report ID: [id number]
[2019-04-13 04:32] LABS: Magnesium 2.3 mg/dL (1.8-2.4); Potassium 4.4 mmol/L (3.5-5.1)
[2019-04-13 05:20] LABS: Absolute Lymphocytes (CBC) 0.4 K/uL (0.7-4.9); Basophils % 2.5 % (0-1.3); Lymphocytes % 5.2 % (15.3-44.8); MPV 10.7 fL (7.6-11.3); RBC Red Blood Cell Count 2.89 M/uL (3.86-4.86)
[2019-04-13] MEDS: INSULIN -REGULAR HUMAN 50 UNIT/0.5 ML ML SQ SCH (07:30)
--- NOTE | 2019-04-13 08:19 | P.DS ---
Admission Date: 04/11/19 Discharge Date: 04/13/19 Primary Care Provider: Vaginal bleeding Disposition: ROUTINE DISCHARGE Discharge Condition: GOOD Reason for Admission: Syncope/Menorrhagia/ hyperglycemia Consultations: BUR[facility] PICKER-Dr. Torres Procedures: CT Head: FINDINGS: No intracranial hemorrhage, mass, edema or shift of mid-line structures. No acute infarction changes seen. No abnormal extra-axial fluid collections. Ventricles are normal. Mastoid air cells and visualized portions of the paranasal sinuses are clear. No acute bony findings. No significant change from comparison. IMPRESSION: Negative non-contrast CT head examination. Transvaginal US: FINDINGS: Uterus is approximately 11.4 x 5.5 x 4.9 cm. In the cervix endocervical canal region a heterogeneous 3 centimeter mass is present. This dilates the endocervical canal. The small fibroid seen in the anterior body the uterus on the November 23 ultrasound is not clearly identifiable on this study. The endometrial mass effect could be hemorrhagic material secondary to a stricture or mass near the cervical external os. Cervical canal mass cannot be excluded due to questionable vascularity of the mass. Right ovary was obscured by bowel. Left ovary is identified and shows no suspicious finding. No blood or fluid in the cul de sac. IMPRESSION: Approximately 3 centimeter mass at the endocervical canal matching the CT finding. There is questionable vascularity. Given the vascular finding, solid mass of the cervix cannot be excluded. Hemorrhagic material due to a external cervical os stricture or mass ( hydrometrocolpos) also a differential consideration. Right ovary is obscured by bowel. No right adnexal abnormality suspected. No left ovary or left adnexal abnormality. ECHO: Ejection fraction 76% LEFT VENTRICULAR WALL MOTION: NORMAL DOPPLER/COLOR FLOW: NORMAL COMMENTS: NORMAL 2D ECHOCARDIOGRAM WITH DOPPLER. Carotid doppler: FINDINGS: Normal high resistance waveforms are noted in both external carotid arteries. The common carotid arteries and internal carotid arteries show normal low resistance waveforms. No significant plaque formation is seen. Peak systolic and end diastolic velocity values and the ICA/CCA ratios are in the non-hemodynamically significant range. Antegrade flow seen in both vertebral arteries. Velocity values and ratios were recorded and are retained in the patient's imaging records. IMPRESSION: No significant atherosclerotic changes noted. No evidence of a hemodynamically significant stenosis. Surgery: Date of Procedure: 04/12/2019 Surgeon: Lainey Torres MD Preoperative Diagnoses: Menorrhagia, fibroids, chronic blood-loss anemia, status post transfusion (AUB-L). Postoperative Diagnoses: Menorrhagia, fibroids, chronic blood-loss anemia, status post transfusion (AUB-L). Type 1 leiomyoma about 6 cm x 3 prolapsed through the cervix into the vaginal canal. Procedure Performed: Hysteroscopy, myomectomy, endometrial sampling with D and C using the MyoSure device. Anesthesia: General with LMA. Specimens: Fibroid and endometrial curettings. Complications: No complications. Drains: No drains. Medical Problem list: Menorrhalgia secondary to uterine fibroids complicated with acute on chronic blood loss anemia requiring transfusion status post hysteroscopy, myomectomy, endometrial sampling Syncope related to above UTI, urine culture positive for E. 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 Patient had noted increasing vaginal bleeding. She had become very weak. She apparently passed out at home. Patient was brought in for further evaluation. Orthostatics abnormal. Patient required admission for further evaluation and treatment. Hospital Course: Patient presented with syncope and menorrhalgia secondary to uterine fibroids. This was complicated with acute on chronic blood-loss anemia requiring transfusion. Patient had not followed up with gynecology for this in the past. Gynecology was consulted. Patient required multiple transfusions. CT head unremarkable. Carotid Doppler unremarkable. Echocardiogram unremarkable. Transvaginal ultrasound showed 3 cm mass at the endocervical canal. Hemorrhagic material also noted. Gynecology recommended further evaluation and treatment. Hysteroscopy and myomectomy performed. Endometrial sample obtained. Patient has remained stable with a hemoglobin 8.2. No further vaginal bleeding noted. Patient will be discharged home. At discharge she patient will continue with iron 325 mg 1 pill 3 times a day. Patient will be provided a limited supply of tramadol 50 mg 3 times a day as needed for pain. Patient will follow up with gynecology in 1-2 weeks to follow up this hospitalization. Patient may require future hysterectomy. This to be determined by gynecology. Will recommend patient follow up with her PCP to monitor her CBC. Recommend to recheck CBC, iron level in 2-4 weeks to monitor stability. Patient also found to have UTI. Urine culture positive for E coli and group B strep. At discharge patient will continue with Augmentin 875 mg 1 pill twice daily for 7 days. UTI prevention provided. Patient with diabetes mellitus type 2 insulin dependent with hyperglycemia. A1c 8.1. At discharge patient will continue with her insulin regimen-Toejeo 30 units subcu every bedtime and Humalog sliding scale. Recommend to maintain blood sugars less 140 fasting and less than 200 after meals. Further adjustment can be done by her PCP. Patient with bipolar disorder, schizophrenia. Patient will continue with her medication-Seroquel 300 mg twice daily. Patient would benefit with psychiatric evaluation as an outpatient to continue her care. Information on psychiatry will be provided. Patient with COPD. Patient will continue with her COPD medication-Symbicort 2 puffs twice daily and Pro air 2 puffs 3 times a day as needed for shortness of breath. Recommend follow up with pulmonology to further monitor and manage. Patient with GERD. Patient will continue with Dexilant 60 mg daily and Bentyl 20 mg 1 pill twice daily. Patient with chronic constipation. Patient may continue with Linzess 290 mcg daily and docusate 100 mg 1 pill twice daily. Patient with chronic pain. Patient will continue with Robaxin 500 mg twice daily as needed for muscle spasm and Lyrica 150 mg 1 pill twice daily. Follow up Pain management. Patient with history of tobacco abuse and marijuana use. Cessation education provided. Vital Signs/Physical Exam: Temp Pulse Resp BP Pulse Ox 97.4 F 82 16 100/57 L 100 04/13/19 04:00 04/13/19 04:00 04/13/19 04:00 04/13/19 04:00 04/13/19 04:00 General: Alert, In no apparent distress, Oriented x3, Cooperative HEENT: Atraumatic Neck: Supple Respiratory: Clear to auscultation bilaterally, Normal air movement Cardiovascular: Normal pulses, Regular rate/rhythm Gastrointestinal: Normal bowel sounds, Soft and benign, Non-distended, No tenderness, No masses, No rebound, No guarding Musculoskeletal: No erythema, No tenderness, No warmth External genitalia: Other (No further vaginal bleeding noted) Laboratory Data at Discharge: WBC 7.5 K/uL (4.3-10.9) D 04/13/19 03:19 Hgb 8.2 g/dL (12.0-15.0) L 04/13/19 03:19 Hct 24.0 % (36.0-45.0) L 04/13/19 03:19 Plt Count 100 K/uL (152-406) L 04/13/19 03:19 PT 11.2 SECONDS (9.5-12.5) 04/10/19 08:09 INR 0.95 04/10/19 08:09 APTT 17.8 SECONDS (24.3-36.9) L 04/10/19 08:09 Sodium 138 mmol/L (136-145) 04/13/19 03:19 Potassium 4.4 mmol/L (3.5-5.1) 04/13/19 03:19 BUN 13 mg/dL (7-18) 04/13/19 03:19 Creatinine 0.77 mg/dL (0.55-1.3) 04/13/19 03:19 Glucose 294 mg/dL (74-106) H 04/13/19 03:19 Magnesium 2.3 mg/dL (1.8-2.4) 04/13/19 03:19 Total Bilirubin 0.2 mg/dL (0.2-1.0) 04/10/19 08:09 AST 12 U/L (15-37) L 04/10/19 08:09 ALT 21 U/L (12-78) 04/10/19 08:09 Alkaline Phosphatase 52 U/L (45-117) 04/10/19 08:09 Home Medications: Albuterol Sulfate [Proair Hfa] 1 puff IN QID 01/20/18 Dexlansoprazole [Dexilant] 60 mg PO DAILY 01/20/18 Linaclotide [Linzess] 290 mcg PO DAILY 01/20/18 Ondansetron HCl [Zofran] 4 mg PO BID 01/20/18 Pregabalin [Lyrica*] 150 mg PO BID 01/20/18 Quetiapine Fumarate [Seroquel] 300 mg PO BID 01/20/18 Acetaminophen with Codeine [Acetaminophen-Cod #3 Tablet] 1 tab PO BID 04/10/19 Budesonide/Formoterol Fumarate [Symbicort 160-4.5 Mcg Inhaler] 2 puff IH BID Dicyclomine [Bentyl*] 20 mg PO BID 04/10/19 Insulin Glargine,Hum.rec.anlog [Ray Medina] 30 units SQ BEDTIME Insulin Lispro [Humalog*] 10 units SQ TID 04/10/19 Methocarbamol 1 tab PO BID 04/10/19 Norgestimate-Ethinyl Estradiol [Femynor 28 Tablet] 1 tab PO DAILY 04/10/19 Amox/Clavulanate [Augmentin 875-125 Tab*] 875 mg PO BID #14 tab 04/13/19 Docusate [Colace Cap*] 100 mg PO BID #60 cap 04/13/19 Ferrous Sulfate [Ferrous Sulfate*] 325 mg PO TID #90 tab 04/13/19 Tramadol HCl [Ultram] 50 mg PO TID PRN #15 tablet 04/13/19 New Medications: Amox/Clavulanate [Augmentin 875-125 Tab*] 875 mg PO BID #14 tab Docusate [Colace Cap*] 100 mg PO BID #60 cap Ferrous Sulfate [Ferrous Sulfate*] 325 mg PO TID #90 tab Tramadol HCl [Ultram] 50 mg PO TID PRN #15 tablet PRN Reason: Pain Scale 2-4 (Mild) Patient Discharge Instructions: 1. Recommend follow up with PCP within 1 week to follow up this hospitalization. 2. Patient presented with syncope and menorrhalgia secondary to uterine fibroids. This was complicated with acute on chronic blood-loss anemia requiring transfusion. Patient had not followed up with gynecology for this in the past. Gynecology was consulted. Patient required multiple transfusions. CT head unremarkable. Carotid Doppler unremarkable. Echocardiogram unremarkable. Transvaginal ultrasound showed 3 cm mass at the endocervical canal. Hemorrhagic material also noted. Gynecology recommended further evaluation and treatment. Hysteroscopy and myomectomy performed. Endometrial sample obtained. Patient has remained stable with a hemoglobin 8.2. No further vaginal bleeding noted. Patient will be discharged home. At discharge she patient will continue with iron 325 mg 1 pill 3 times a day. Patient will be provided a limited supply of tramadol 50 mg 3 times a day as needed for pain. Patient will follow up with gynecology in 1-2 weeks to follow up this hospitalization. Patient may require future hysterectomy. This to be determined by gynecology. Will recommend patient follow up with her PCP to monitor her CBC. Recommend to recheck CBC, iron level in 2-4 weeks to monitor stability. 3. Patient also found to have UTI. Urine culture positive for E coli and group B strep. At discharge patient will continue with Augmentin 875 mg 1 pill twice daily for 7 days. UTI prevention provided. 4. Patient with diabetes mellitus type 2 insulin dependent with hyperglycemia. A1c 8.1. At discharge patient will continue with her insulin regimen-Toejeo 30 units subcu every bedtime and Humalog sliding scale. Recommend to maintain blood sugars less 140 fasting and less than 200 after meals. Further adjustment can be done by her PCP. 5. Patient with bipolar disorder, schizophrenia. Patient will continue with her medication-Seroquel 300 mg twice daily. Patient would benefit with psychiatric evaluation as an outpatient to continue her care. Information on psychiatry will be provided. 6. Patient with COPD. Patient will continue with her COPD medication-Symbicort 2 puffs twice daily and Pro air 2 puffs 3 times a day as needed for shortness of breath. Recommend follow up with pulmonology to further monitor and manage. 7. Patient with GERD. Patient will continue with Dexilant 60 mg daily and Bentyl 20 mg 1 pill twice daily. 8. Patient with chronic constipation. Patient may continue with Linzess 290 mcg daily and docusate 100 mg 1 pill twice daily. 9. Patient with chronic pain. Patient will continue with Robaxin 500 mg twice daily as needed for muscle spasm and Lyrica 150 mg 1 pill twice daily. Follow up Pain management. 10. Patient with history of tobacco abuse and marijuana use. Cessation education provided. Diet: ADA Activity: Ad keagan Time spent managing pt's care (in minutes): 55
[2019-04-13] MEDS: HOME MED 1 EA UNK (Linaclotide [Linzess] 290 MCG) PO SCH (09:00)
[2019-04-13] MEDS: GLUCERNA SHAKE 237 ML CAN PO SCH (09:00)
[2019-04-13] MEDS ORDERED: AMOX/K CLAV 875 MG TAB PO SCH (09:00)
[2019-04-13 09:13] VITALS: BP 127/58; TEMP 97.3
[2019-04-13] MEDS: DOCUSATE NA 100 MG CAP PO SCH (09:16)
[2019-04-13] MEDS: QUETIAPINE 100MG TAB PO SCH (09:16)
[2019-04-13] MEDS: FERROUS SULFATE 325 MG TAB PO SCH (09:16)
[2019-04-13] MEDS: DICYCLOMINE HCL 10 MG CAP PO SCH (09:16)
[2019-04-13] MEDS: PREGABALIN 150 MG CAP PO SCH (09:16)
[2019-04-13] MEDS: INSULIN GLARGINE 100 UNITS/ML SQ SCH (09:17)
[2019-04-13] MEDS: PANTOPRAZOLE 40MG TABLET PO SCH (09:17)
[2019-04-13] MEDS: methocarbamoL 500 MG TAB PO SCH (09:17)
== END 2019-04-13 10:00 | disposition home or self-care (01) | DRG 742 ==
LOC: ER 00:20 → ERHOLD 03:05 → 4TH 03:48 → OBSVTOIN 04-11 13:09
PROVIDERS: ADMIT Hospitalist; ATTEND Family Medicine
PROC: 30233N1 Transfusion of Nonautologous Red Blood Cells into Peripheral Vein, Percutaneous Approach (ICD-10-PCS; 2019-04-11)
PROC: 0UB98ZZ Excision of Uterus, Via Natural or Artificial Opening Endoscopic (ICD-10-PCS; principal; 2019-04-12 14:30)
DX: D25.0 Submucous leiomyoma of uterus (principal); D62 Acute posthemorrhagic anemia; N39.0 Urinary tract infection, site not specified; N92.0 Excessive and frequent menstruation with regular cycle; B96.20 Unspecified Escherichia coli [E. coli] as the cause of diseases classified elsewhere; F12.10 Cannabis abuse, uncomplicated; F17.210 Nicotine dependence, cigarettes, uncomplicated; J44.9 Chronic obstructive pulmonary disease, unspecified; E11.65 Type 2 diabetes mellitus with hyperglycemia; E78.5 Hyperlipidemia, unspecified; G62.9 Polyneuropathy, unspecified; F31.9 Bipolar disorder, unspecified; F20.9 Schizophrenia, unspecified
CPT/HCPCS: 36415; 36430; 70450; 76830; 80048; 80053; 81003; 81015; 82607; 82746; 82947; 83036; 83540; 83735; 84439; 84443; 85014; 85018; 85025; 85044; 85610; 85730; 86850; 86900; 86901; 87077; 87086; 87088; 87186; 88305; 93306; 93880; 96361; 96374; 96375; 99285; G0378; J0696; J1050; J1100; J1200; J1720; J1815; J1940; J2250; J2270; J2405; J2550; J2704; J3010; J7030; P9016

== ENCOUNTER 2020-01-31 09:51 | Observation (INO) | payer OTHER ==
[2020-01-31] MEDS ORDERED: NA CHLORIDE 0.9% 1,000 ML ONE (10:15)
[2020-01-31] MEDS ORDERED: PROMETHAZINE INJ 25 MG/ML AMP ONE ×2 (10:15→10:39)
[2020-01-31 10:26] LABS: Absolute Lymphocytes (CBC) 1.9 K/uL (0.7-4.9); Basophils % 0.4 % (0-1.3); Hematocrit 43.4 % (36.0-45.0); Lymphocytes % 16.9 % (15.3-44.8); MPV 10.8 fL (7.6-11.3); RBC Red Blood Cell Count 4.77 M/uL (3.86-4.86)
--- NOTE | 2020-01-31 10:46 | RAD REPORT ---
EXAM DESCRIPTION: CT - Abdomen Pelvis W Contrast - 01/31/2020 10:34 am CLINICAL HISTORY: ABD PAIN COMPARISON: Abdomen Pelvis W Contrast dated 11/23/2018; Transvaginal Study Probe dated 04/10/2019 TECHNIQUE: Biphasic, helical CT imaging of the abdomen and pelvis was performed following 100 ml non -ionic IV contrast. No oral contrast given. All CT scans are performed using dose optimization technique as appropriate and may include automated exposure control or mA/KV adjustment according to patient size. FINDINGS: No suspicious findings in the lung bases. Liver shows fatty infiltration with no focal liver lesion. Colonic interposition is present between t he liver and the diaphragm is normal variant. No portal vein abnormality. No splenic abnormality seen . No solid or cystic mass of the pancreatic parenchyma. Pancreatic duct is prominent but shows no abn ormal dilatation or worrisome change from the comparison. No peripancreatic inflammatory stranding. C holecystectomy clips are present. No biliary tree dilatation. Symmetric renal function is seen with no hydronephrosis or suspicious renal mass. No pyelonephritis o r acute parenchymal process. No bladder abnormalities. No adrenal abnormalities. Normal-sized uterus identified. The hydrometrocolpos and cervical mass finding seen in 2019 are not i dentifiable. Ovaries are not optimally visualized. No suspicion for an ovarian or adnexal mass. No gastric dilatation or wall thickening. Patient has nondilated fluid-filled small bowel loops. No a ppendicitis. Moderate stool volume seen the tortuous sigmoid colon, transverse colon and descending c olon. No appendicitis findings. No free air, free fluid or inflammatory stranding. No mass or bulky lymphadenopathy. A small fat only umbilical hernia is present. No suspicious bony findings. Degenerative changes are present. IMPRESSION: No pancreatitis or other acute finding in the upper abdomen. Patient has a few fluid-filled small bowel loops. A nonspecific enteritis would be possible. No activ e colon or appendix process seen. Mild fatty infiltration of the liver.
[2020-01-31 10:47] LABS: Bilirubin Direct 0.1 mg/dL (0-0.2); Bilirubin Total 0.6 mg/dL (0.2-1.0); Potassium 3.7 mmol/L (3.5-5.1); Protein, Total 9.4 g/dL (6.4-8.2)
[2020-01-31] MEDS ORDERED: HALOPERIDOL LACT 5 MG/ML INJ ONE (11:14)
[2020-01-31] MEDS ORDERED: FAMOTIDINE 20 MG/2 ML VIAL IV ONE (11:14)
--- NOTE | 2020-01-31 11:50 | ER ---
Nurse's Notes [facility] Name: Roya Anne Age: 49 yrs Sex: Female : 1970 Arrival Date: 01/31/2020 Time: 09:52 Bed 17 Private MD: Diagnosis: Enteritis;Intractable vomiting;Dehydration Presentation: 01/30 09:52 Chief complaint: EMS states: NAUSEA/VOMITING AND CHILLS x3 DAYS. Coronavirus screen: bp Client presents with at least one sign or symptom that may indicate coronavirus-19. Provider contacted for isolation considerations. Ebola Screen: No symptoms or risks identified at this time. Initial Sepsis Screen: Does the patient meet any 2 criteria? RR > 20 per min. HR > 90 bpm. Yes Does the patient have a suspected source of infection? Yes: Acute abdominal pain. Risk Assessment: Do you want to hurt yourself or someone else? Patient reports no desire to harm self or others. Onset of symptoms is unknown. 09:52 Acuity: AGATA 3 bp 09:52 Method Of Arrival: EMS: [facility] bp 09:56 Care prior to arrival: Glucose check: 312. bp Triage Assessment: 09:55 General: Appears distressed, uncomfortable, ill, Behavior is cooperative, appropriate bp for age, anxious. Pain: Complains of pain in abdomen. EENT: No deficits noted. Neuro: No deficits noted. Cardiovascular: Rhythm is sinus tachycardia. Respiratory: No deficits noted. GI: Reports lower abdominal pain, upper abdominal pain, nausea, vomiting. : No signs and/or symptoms were reported regarding the genitourinary system. Derm: No deficits noted. Musculoskeletal: No deficits noted. Historical: - Allergies: 09:56 No Known Allergies; bp - Home Meds: 09:56 Seroquel Oral [Active]; Bentyl Oral [Active]; Zofran Oral [Active]; bp - PMHx: 09:56 Anemia; Bipolar disorder; Diabetes - IDDM; Hypertension; neuropathy; Pancreatitis; bp Schizophrenia; - Immunization history:: Adult Immunizations unknown. - Social history:: Smoking status: unknown. - Family history:: not pertinent. - Hospitalizations: : No recent hospitalization is reported. Screenin:55 Abuse screen: Denies threats or abuse. Denies injuries from another. Nutritional bp screening: No deficits noted. Tuberculosis screening: No symptoms or risk factors identified. Fall Risk None identified. Assessment: 09:55 General: SEE TRIAGE NOTE. bp 10:14 Reassessment: PT TO CT. bp 10:40 Reassessment: PT RETURNED FROM CT. PT CONTINUING WITH NAUSEA/VOMITING. bp 11:39 Reassessment: NO FURTHER VOMITING. PT RESTING QUIETLY Patient states feeling better. bp Patient states symptoms have improved. 13:19 Reassessment: ADMIT COMPLETE, BED ASSIGNED 219. bp Vital Signs: 09:52 BP 159 / 86; Pulse 127; Resp 24; Temp 98.5; Pulse Ox 99% ; bp 10:13 BP 138 / 94; Pulse 153; Resp 24; Pulse Ox 100% ; bp 10:40 BP 168 / 92; Pulse 133; Resp 24; Pulse Ox 99% ; bp 11:38 BP 167 / 99; Pulse 118; Resp 20; Pulse Ox 100% ; bp 13:20 BP 182 / 40; Pulse 88; Resp 16; Pulse Ox 100% ; bp ED Course: 09:52 Patient arrived in ED. bp 09:54 Triage completed. bp 09:56 Clifford Quintanilla, CHARLEY is Primary Nurse. bp 09:56 Melo Small MD is Attending Physician. rn 09:57 Arm band placed on. bp 09:58 Patient has correct armband on for positive identification. Placed in gown. Bed in low mh5 position. Call light in reach. Side rails up X 1. Warm blanket given. Pulse ox on. NIBP on. 10:05 Inserted saline lock: 20 gauge in right antecubital area, using aseptic technique. bp Blood collected. 10:13 CT Abd/Pelvis - IV Contrast Only Sent. bp 10:35 CT Abd/Pelvis - IV Contrast Only In Process Unspecified. EDMS 11:48 Prince Ulloa MD is Hospitalizing Provider. rn 13:23 No provider procedures requiring assistance completed. Patient admitted, IV remains in bp place. Administered Medications: 10:13 Drug: Phenergan 12.5 mg Route: IVP; Site: right antecubital; bp 10:52 Follow up: Response: Nausea is decreased bp 10:13 Drug: NS 0.9% 1000 ml Route: IV; Rate: 1000 ml; Site: right antecubital; bp 13:23 Follow up: IV Status: Completed infusion; IV Intake: 1000ml bp 10:31 Drug: Phenergan 12.5 mg Route: IVP; Site: right antecubital; iw 10:52 Follow up: Response: Nausea is decreased bp 11:00 Drug: Pepcid 20 mg Route: IVP; Site: right antecubital; bp 13:23 Follow up: Response: Marked relief of symptoms bp 11:00 Drug: HALdol (as decanoate) 5 mg Route: IM; Site: right deltoid; bp 13:23 Follow up: Response: Marked relief of symptoms bp Intake: 13:23 IV: 1000ml; Total: 1000ml. bp Outcome: 11:48 Decision to Hospitalize by Provider. rn 14:09 Patient left the ED. bp Signatures: Dispatcher [employer] EDShelby Fisher RN RN Melo Small MD MD rn Martinez, Maria Clifford Alonso RN RN bp
--- NOTE | 2020-01-31 11:50 | EDPHYS ---
Physician Documentation [facility] Name: Roya Anne Age: 49 yrs Sex: Female : 1970 Arrival Date: 01/31/2020 Time: 09:52 Bed 17 Private MD: ED Physician Melo Small HPI: 01/30 10:05 This 49 yrs old Female presents to ER via EMS with complaints of rn Nausea/Vomiting. 10:05 The patient presents to the emergency department with nausea, vomiting, abdominal pain. rn Onset: The symptoms/episode began/occurred 3 day(s) ago. Possible causes: unknown. The symptoms are aggravated by nothing. The symptoms are alleviated by nothing. Severity of symptoms: At their worst the symptoms were moderate in the emergency department the symptoms are unchanged. The patient has experienced similar episodes in the past. reports this happens 2-3 times a year, reports told has "acid problems", gets medication and feels better, no known abd surgeries per . Patient retching too much to help with hpi. . Historical: - Allergies: 09:56 No Known Allergies; bp - Home Meds: 09:56 Seroquel Oral [Active]; Bentyl Oral [Active]; Zofran Oral [Active]; bp - PMHx: 09:56 Anemia; Bipolar disorder; Diabetes - IDDM; Hypertension; neuropathy; Pancreatitis; bp Schizophrenia; - Immunization history:: Adult Immunizations unknown. - Social history:: Smoking status: unknown. - Family history:: not pertinent. - Hospitalizations: : No recent hospitalization is reported. ROS: 10:05 Constitutional: Negative for fever, chills, and weight loss, Eyes: Negative for injury, rn pain, redness, and discharge, Cardiovascular: Negative for chest pain, palpitations, and edema, Respiratory: Negative for shortness of breath, cough, wheezing, and pleuritic chest pain, Abdomen/GI: Negative for diarrhea, and constipation MS/Extremity: Negative for injury and deformity, Skin: Negative for injury, rash, and discoloration, Neuro: Negative for headache, weakness, numbness, tingling, and seizure. Exam: 10:05 Constitutional: Pt sitting up, appears disheveled, retching and throwing up Head/Face: rn Normocephalic, atraumatic. Cardiovascular: Tachycardic, regular Respiratory: Mild tachypnea Abdomen/GI: soft, + tender all 4 quadrants Skin: Warm, dry MS/ Extremity: Pulses equal, no cyanosis. Neuro: Awake and alert, GCS 15 11:51 ECG was reviewed by the Attending Physician. rn Vital Signs: 09:52 BP 159 / 86; Pulse 127; Resp 24; Temp 98.5; Pulse Ox 99% ; bp 10:13 BP 138 / 94; Pulse 153; Resp 24; Pulse Ox 100% ; bp 10:40 BP 168 / 92; Pulse 133; Resp 24; Pulse Ox 99% ; bp 11:38 BP 167 / 99; Pulse 118; Resp 20; Pulse Ox 100% ; bp 13:20 BP 182 / 40; Pulse 88; Resp 16; Pulse Ox 100% ; bp MDM: 09:56 Patient medically screened. rn 11:44 Differential diagnosis: gastritis, viral gastroenteritis, gastroenteritis, enteritis. rn Data reviewed: vital signs, nurses notes, lab test result(s), radiologic studies, CT scan, and as a result, I will admit patient. Counseling: I had a detailed discussion with the patient and/or guardian regarding: the historical points, exam findings, and any diagnostic results supporting the discharge/admit diagnosis, lab results, radiology results, the need for further work-up and treatment in the hospital. Admission orders: after a detailed discussion of the patient's condition and case, the admit orders are written by me. ED course: Pt with intractable vomiting, given zofran, phenergan x 2, then haldol. CT no acute findings other than maybe enteritis. . 01/30 10:02 Order name: Basic Metabolic Panel; Complete Time: 10: rn 01/30 10:02 Order name: CBC with Diff; Complete Time: 10: rn 01/30 10:02 Order name: Hepatic Function; Complete Time: 10: rn 01/30 10:02 Order name: Lipase; Complete Time: 10: rn 01/30 10:02 Order name: CT Abd/Pelvis - IV Contrast Only; Complete Time: 10:55 rn 01/30 10:02 Order name: IV Saline Lock; Complete Time: 10: rn 01/30 10:02 Order name: Labs collected and sent; Complete Time: 10: rn 01/30 10:43 Order name: EKG; Complete Time: 10:44 rn 01/30 10:43 Order name: EKG - Nurse/Tech; Complete Time: 10:52 rn EC:51 Rate is 128 beats/min. Rhythm is regular. QRS [place] is Normal. VA interval is normal. rn QRS interval is normal. QT interval is normal. No Q waves. T waves are Normal. No ST changes noted. Clinical impression: Sinus tachycardia. Interpreted by me. Reviewed by me. Administered Medications: 10:13 Drug: Phenergan 12.5 mg Route: IVP; Site: right antecubital; bp 10:52 Follow up: Response: Nausea is decreased bp 10:13 Drug: NS 0.9% 1000 ml Route: IV; Rate: 1000 ml; Site: right antecubital; bp 13:23 Follow up: IV Status: Completed infusion; IV Intake: 1000ml bp 10:31 Drug: Phenergan 12.5 mg Route: IVP; Site: right antecubital; iw 10:52 Follow up: Response: Nausea is decreased bp 11:00 Drug: Pepcid 20 mg Route: IVP; Site: right antecubital; bp 13:23 Follow up: Response: Marked relief of symptoms bp 11:00 Drug: HALdol (as decanoate) 5 mg Route: IM; Site: right deltoid; bp 13:23 Follow up: Response: Marked relief of symptoms bp Disposition: 01/31/20 11:48 Hospitalization ordered by Prince Artemio for Observation. Preliminary diagnosis are Enteritis, Intractable vomiting, Dehydration. - Bed requested for Telemetry/MedSurg (observation). - Status is Observation. bp - Condition is Stable. - Problem is new. - Symptoms are unchanged. Signatures: Dispatcher [employer] EDShelby Fisher, RN RN iw Melo Small MD MD rn Peltier, Brian, RN RN bp Lois Costello to Corrections: (The following items were deleted from the chart) 12:52 11:48 Hospitalization Ordered by Prince Arteimo ROGERS for Observation. Preliminary to diagnosis is Enteritis; Intractable vomiting; Dehydration. Bed requested for Telemetry/MedSurg (observation). Status is Observation. Condition is Stable. Problem is new. Symptoms are unchanged. rn 14:09 12:52 01/31/2020 11:48 Hospitalization Ordered by Prince Artemio ROGERS for Observation. bp Preliminary diagnosis is Enteritis; Intractable vomiting; Dehydration. Bed requested for Telemetry/MedSurg (observation). Status is Observation. Condition is Stable. Problem is new. Symptoms are unchanged. to
[2020-01-31] MEDS ORDERED: TRAMADOL HCL 50 MG TAB PO PRN (12:19)
--- NOTE | 2020-01-31 12:24 | P.HP ---
Certification for Inpatient Patient admitted to: Observation With expected LOS: <2 Midnights Practitioner: I am a practitioner with admitting privileges, knowledge of patient current condition, hospital course, and medical plan of care. Services: Services provided to patient in accordance with Admission requirements found in Title 42 Section 412.3 of the Code of Federal Regulations Patient History Date of Service: 01/31/20 Reason for admission: Abdominal pain History of Present Illness: Patient is a 49-year-old female the past medical history of bipolar disorder, schizophrenia and insulin-dependent diabetes mellitus. She is admitted with an acute onset of abdominal pain and nausea and vomiting. She is reporting an epigastric, nonradiating pain. Denies any diarrhea. Patient states that she gets these episodes at least twice a years. Denies being chronically on pain medications. Denies any history of chronic cannabis use. CT abdomen and pelvis in the ER showed enteritis. She is very restless and required injection of Haldol while in the ER. Allergies No Known Allergies Allergy (Verified 03/29/17 16:06) Home Medications: Albuterol Sulfate [Proair Hfa] 1 puff IN QID 01/20/18 Dexlansoprazole [Dexilant] 60 mg PO DAILY 01/20/18 Linaclotide [Linzess] 290 mcg PO DAILY 01/20/18 Ondansetron HCl [Zofran] 4 mg PO BID 01/20/18 Pregabalin [Lyrica*] 150 mg PO BID 01/20/18 Quetiapine Fumarate [Seroquel] 300 mg PO BID 01/20/18 Acetaminophen with Codeine [Acetaminophen-Cod #3 Tablet] 1 tab PO BID 04/10/19 Budesonide/Formoterol Fumarate [Symbicort 160-4.5 Mcg Inhaler] 2 puff IH BID 04/10/19 Dicyclomine [Bentyl*] 20 mg PO BID 04/10/19 Insulin Glargine,Hum.rec.anlog [Ray Medina] 30 units SQ BEDTIME 04/10/19 Insulin Lispro [Humalog*] 10 units SQ TID 04/10/19 Norgestimate-Ethinyl Estradiol [Femynor 28 Tablet] 1 tab PO DAILY 04/10/19 methocarbamoL [Methocarbamol] 1 tab PO BID 04/10/19 Amox/Clavulanate [Augmentin 875-125 Tab*] 875 mg PO BID #14 tab 04/13/19 Docusate [Colace Cap*] 100 mg PO BID #60 cap 04/13/19 Ferrous Sulfate [Ferrous Sulfate*] 325 mg PO TID #90 tab 04/13/19 Tramadol HCl [Ultram] 50 mg PO TID PRN #15 tablet 04/13/19 - Past Medical/Surgical History Diabetic: Yes -: Bipolar Disorder -: Schizophrenia -: IDDM -: Hyperlipidemia -: neuropathy -: TB-treated 4 years ago -: anemia -: chronic neck pain -: pancreatitis -: TB -: Cataract removal -: Cholecystectomy -: x 3 Psychosocial/ Personal History: Patient lives at home. She does not work. She is disabled due to her mental illness. - Family History Mother -: Diabetes - Social History Alcohol use: No CD- Drugs: No Caffeine use: Yes Physical Examination - Physical Exam General: Other (Restless and slightly agitated) HEENT: Atraumatic, Normocephalic, EOMI Neck: Supple Respiratory: Clear to auscultation bilaterally, Normal air movement Cardiovascular: No edema, Normal pulses, Regular rate/rhythm, Normal S1 S2 Gastrointestinal: Normal bowel sounds, Non-distended, Tenderness (Epigastric tenderness) Musculoskeletal: No clubbing, No swelling, No contractures, No erythema, No tenderness, No warmth Integumentary: No rashes, No breakdown, No significant lesion, No tenderness/swelling, No erythema, No warmth, No cyanosis Neurological: Normal speech, Sensation intact, Normal affect - Studies Laboratory Data (last 24 hrs) 01/31/20 10:05: WBC 11.0 H, Hgb 14.6, Hct 43.4, Plt Count 274 01/31/20 10:05: Sodium 137, Potassium 3.7, BUN 19 H, Creatinine 1.10, Glucose 429 H*, Total Bilirubin 0.6, AST 25, ALT 33, Alkaline Phosphatase 137 H, Lipase 335 Assessment and Plan - Problems (Diagnosis) (1) Gastroenteritis Onset Date: 03/14/17 Current Visit: No Status: Acute (2) Enteritis Current Visit: Yes Status: Acute - Advance Directives Does patient have a Living Will: No Does patient have a Durable POA for Healthcare: No Physician Review Additional Text: Assessment Patient is a 49-year-old female with a past medical history of bipolar disorder, schizophrenia, polysubstance abuse and insulin-dependent diabetes mellitus currently admitted with acute onset of abdominal pain, nausea and vomiting. Very restless in the ER. CT abdomen and pelvis showed enteritis. Enteritis Insulin-dependent diabetes mellitus with hyperglycemia Bipolar disorder Schizophrenia Plan: Admit under observation for volume repletion Start anti emetics and IV PPI Check UA and urine toxicology Resumed home dose of bedtime lantus Start insulin sliding scale
[2020-01-31] MEDS ORDERED: ALBUTEROL INHALER 60 PUFF/8 GM IH SCH (13:00)
[2020-01-31] MEDS ORDERED: GLUCAGON 1 MG/VIAL IM PRN ×2 (14:15→15:18)
[2020-01-31] MEDS ORDERED: SODIUM CHLORIDE 0.9% 10ML INJ IV PRN (14:15)
[2020-01-31] MEDS ORDERED: ONDANSETRON 4 MG/2 ML VIAL IV PRN (14:15)
[2020-01-31] MEDS ORDERED: Ringers Lactate 1,000 ML IV SCH (14:15)
[2020-01-31] MEDS ORDERED: D50W 25 GM/50 ML SYRINGE/VIAL IV PRN ×2 (14:15→15:18)
[2020-01-31] MEDS: PANTOPRAZOLE 40 MG INJ IVP SCH ×2 (14:32→20:22)
[2020-01-31 14:55] VITALS: BMI 26.6
[2020-01-31] MEDS ORDERED: INFLUENZA VACCINE (for 3y+) 0.5 ML DOSE IMVAC ONE (15:00)
[2020-01-31] MEDS ORDERED: INSULIN -REGULAR HUMAN 50 UNIT/0.5 ML ML SQ SCH (16:30)
[2020-01-31] MEDS: INSULIN -REGULAR HUMAN 50 UNIT/0.5 ML ML SQ SCH ×2 (16:59→22:03)
[2020-01-31] MEDS ORDERED: HOME MED [ALBUTEROL INHALER 60 PUFF/8 GM] IH SCH (17:00)
[2020-01-31] MEDS ORDERED: METOPROLOL TARTRATE 5 MG/5 ML INJ IV STA (18:14)
[2020-01-31] MEDS: PROMETHAZINE INJ 25 MG/ML AMP IV PRN (18:21)
[2020-01-31] MEDS ORDERED: ZOLPIDEM TARTRATE 5 MG TABLET PO PRN (19:28)
[2020-01-31] MEDS: DICYCLOMINE HCL 10 MG CAP PO SCH (20:22)
[2020-01-31] MEDS: QUETIAPINE 100MG TAB PO SCH (20:23)
[2020-01-31] MEDS: methocarbamoL 500 MG TAB PO SCH (20:24)
[2020-01-31] MEDS: PREGABALIN 150 MG CAP PO SCH (20:24)
[2020-01-31] MEDS: CODEINE 30MG/APAP 300MG TAB PO SCH (20:24)
[2020-01-31] MEDS: Ringers Lactate 1,000 ML IV SCH (20:26)
[2020-01-31] MEDS: DOCUSATE NA 100 MG CAP PO SCH (20:26)
[2020-01-31] MEDS ORDERED: INSULIN GLARGINE HUM REC ANLOG 30 UNIT SQ SCH (21:00)
[2020-01-31] MEDS ORDERED: HOME MED 1 EA UNK (Budesonide/Formoterol Fumarate [Symbicort 160-4.5 Mcg Inhaler] 2 PUFF) IH SCH (21:00)
[2020-01-31] MEDS ORDERED: QUETIAPINE FUMARATE 300 MG PO SCH (21:00)
[2020-01-31] MEDS ORDERED: INSULIN GLARGINE 100 UNITS/ML SQ SCH (21:00)
[2020-01-31 22:24] LABS: Urine Appearance CLEAR; Urine Bilirubin NEGATIVE (NEG); Urine Blood NEGATIVE (NEG); Urine Color YELLOW; Urine Glucose 3+ (NEG); Urine Protein TRACE (NEG); Urine Specific Gravity >=1.030 (1.005-1.030); Urine Urobilinogen 0.2 mg/dL (0.2-1.0)
[2020-01-31 22:40] LABS: Urine Microscopic Reflex ORDER UMIC
[2020-01-31 23:09] LABS: Urine Bacteria <20 /HPF (<20); Urine Culture Reflex Order REFLEXED; Urine RBC <5 /HPF (NONE SEEN)
[2020-02-01] MEDS: PROMETHAZINE INJ 25 MG/ML AMP IV PRN ×2 (00:22→08:43)
--- OUTSIDE RECORDS SUMMARY | 2020-02-01 02:24 | XMS REPORT | Continuity of Care Document ---
:1970 Author Organization [facility] t Address [address] [place] [address] Care Team Providers Name Role Phone Carol Yepez MD Attending Clinician Problems Condition Condition Condition Status Onset Resolution Last Treating Co mments Source Name Details Category Date Date Treatment Clinician Date Neuropathy Neuropathy Problem [facility] Hyperlipid Hyperlipid Problem Active [facility] Diabetes Diabetes [facility] Type 2 Type [address] [facility] diabetes diabetes [facility] - mellitus mellitus Memori a with other with other 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 Ou tpati y y ent complicati complicati Cl inics ons ons Type 2 Type [address] [facility] diabetes diabetes [facility] - mellitus mellitus Memori a with with l hyperglyce hyperglyce Ou tpati [facility] Mixed Mixed Problem Active [facility] hyperlipid hyperlipid [facility] Gastroesop Gastroesop Problem Active [facility] hageal hageal [facility] reflux reflux Memoria disease disease l without without Outpati esophagiti esophagiti en t s s Clinics Irritable Irritable Problem Active [facility] bowel bowel [facility] - syndrome syndrome Memori a with with l constipati constipati Ou tpati on on ent Clinics Other Other Problem Active [facility] schizophre schizophre [facility] Heavy Heavy Problem Active [facility] menses menses [facility] Gastropare Gastropare Problem Active [facility] sis sis [facility] Diabetic Diabetic Problem Active [facility] neuropathy neuropathy [facility] 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 Medications This patient has no known medications. Procedures This patient has no known procedures. Encounters Start End Encounter Admission Attending Care Care Encounter Source Date/Time Date/Time Type Type Clinicians Facility Department ID 2020-01-02 2020-01-02 Office Yepez, [facility] [id number] 08:09:05 09:00:20 Visit Carol Holderton [id number] Declo [id number] Pankaj [id number] [address] 2018-05-03 2018-05-03 Outpatient Brazedda Diazt [id number] [facility] [address] 10:54:00 10:54:00 [address] [facility] Results This patient has no known results.
--- OUTSIDE RECORDS SUMMARY | 2020-02-01 02:25 | XMS REPORT | Summary of Care ---
:1970 Author Organization [facility] - Health Address [address] [place] [address] Care Team Providers Name Role Phone Scottie Rodriguez MD Primary Care Provider [phone] Encounter Details Date Type Department Care Team Description 11/21/2019 Orders Only [facility] Doctor Unassigned, No [address] [facility] [place] [address] [address] [place] [address] Allergies No Known Allergiesdocumented as of this encounter (statuses as of 11/27/2019) Medications Medication Sig Dispensed Refills Start End Date Status Date HUMALOG KWIKPEN INSULIN INJECT 10 UNITS 0 Active 100 unit/mL injection SUBCUTANEOUSLY 3 9 TIMES A DAY (BEFORE EACH MEAL) PER SLIDING SCALE TOUJEO MAX U-300 0 Act ean SOLOSTAR 300 unit/mL (3 9 mL) InPn Blood-Glucose Sensor Use as directed 3 Each 11 Active (DEXCOM G6 SENSOR) 0 DeviIndications: Type 1 diabetes mellitus with hyperglycemia Blood-Glucose Use as directed 1 Each 3 Active Transmitter (DEXCOM G6 0 TRANSMITTER) DeviIndications: Type 1 diabetes mellitus with hyperglycemia Blood-Glucose Use as directed 1 Each 0 Active Meter,Continuous (DEXCOM 0 G6 FILLING HAULER) MiscIndications: Type 1 diabetes mellitus with hyperglycemia linaCLOtide (LINZESS) Take 290 mg by 0 Active 290 mcg Cap mouth daily. Dexlansoprazole Take by mouth. 0 Active (DEXILANT) 60 mg capsule QUEtiapine (SEROQUEL) Take 300 mg by 0 Active 300 mg tablet mouth 2 (two) times daily. medroxyPROGESTERone 150 mg by 0 Active (DEPO-PROVERA) 150 mg/mL Intramuscular injection route every 3 (three) months. pregabalin (LYRICA) 150 Take 1 capsule by 30 capsule 5 08/27/ 02 Active mg capsuleIndications: mouth daily. 0 Neuropathy pregabalin (LYRICA) 75 Take 1 capsule by 30 capsule 5 08/28/19 2 Active mg capsuleIndications: mouth daily. 0 Neuropathy ondansetron (ZOFRAN) 4 Take 1 tablet by 60 tablet 5 Active mg tabletIndications: mouth every 12 0 Gastroparesis (twelve) hours. dicyclomine 20 mg Take 1 tablet by 60 tablet 5 Active tabletIndications: mouth 2 (two) 0 Gastroparesis times daily. zolpidem 10 mg Take 1 tablet by 14 tablet 0 Active tabletIndications: mouth at bedtime 0 Insomnia due to other as needed for mental disorder Insomnia. lisinopril 5 mg Take 1 tablet by 90 tablet 3 Active tabletIndications: Type mouth daily. 0 1 diabetes mellitus with hyperglycemia, Essential hypertension documented as of this encounter (statuses as of 11/27/2019) Active Problems Problem Noted Date Schizophrenia Neuropathy Hepatitis C DMII (diabetes mellitus, type 2) Bipolar 1 disorder documented as of this encounter (statuses as of 11/27/2019) Resolved Problems Problem Noted Date Resolved Date Hemoptysis 08/31/2014 08/27/2019 Hematemesis 12/13/2005 08/27/2019 documented as of this encounter (statuses as of 11/27/2019) Social History Tobacco Use Types Packs/Day Years Used Date Current Every Day Smoker Cigarettes 1 30 Smokeless Tobacco: Former User Alcohol Use Drinks/Week oz/Week Comments No Sex Assigned at Date Recorded Not on file documented as of this encounter Last Filed Vital Signs Not on filedocumented in this encounter Plan of Treatment Date Type Specialty Care Team Description 01/01/2020 Office Visit Family Medicine Scottie Rodriguez MD [address] [place] [phone] 02/11/2020 Office Visit Endocrinology Diabetes & Kesired Susan rivas MD Metabolism [address] [place] [address] [phone] Health Maintenance Due Date Last Done Comments PNEUMOCOCCAL 0-64 YEARS COMBINED 07/14/1975 SERIES (1 of 1 - PPSV23) EYE EXAM 07/14/1979 Depression Screening 1981 DTaP,Tdap,and Td Vaccines (1 - 1988 Tdap) PAP SMEAR 1990 Breast Cancer Screening 11/30/2017 11/30/2016 (MAMMOGRAM) COLON CANCER SCREENING ANNUAL 07/14/2019 FIT/FOBT COLON CANCER SCREENING FIT DNA 07/14/2019 EVERY 3 YEARS COLON CANCER SCREENING 07/14/2019 SIGMOIDOSCOPY EVERY 5 YEARS COLONOSCOPY 07/14/2019 Colorectal Cancer Screening 07/14/2019 Zoster Recombinant Vaccine 07/14/2019 (SHINGRIX) (1 of 2) INFLUENZA VACCINE (#1) 2019 HgA1C 04/08/2020 10/08/2019, 06/11/2019, 08/31/2014 CREATININE (SERUM) 06/11/2020 06/11/2019, 08/31/2014, 12/16/2005, Additional history exists LDL-C 06/11/2020 06/11/2019 URINE MICROALBUMIN 06/11/2020 06/11/2019 FOOT EXAM 10/07/2020 10/08/2019, 10/08/2019, 06/11/2019, Additional history exists documented as of this encounter Procedures Procedure Name Priority Date/Time Associated Diagnosis Comme nts DME/SUPPLY JUSTIFICATION Routine 11/21/2019 12:01 AM CDT documented in this encounter Results Not on filedocumented in this encounter Additional Health Concerns Infection Onset Date Last Indicated Resolved Time Airborne- TB 11/04/2014 11/04/2014 documented as of this encounter Insurance Payer Benefit Plan / Subscriber ID Effective Phone Address T ype Group Dates [facility] [id number] 2019-Pres [facility] HEALTHCARE - HEALTHCARE ent HMO MANAGED DUAL COMPLETE MEDICARE HMO KYLE WRIGHT [id number] 2014-Pres [address] Medica id HEALTHCARE - HEALTHCARE [place] [id number] MANAGED MEDICAID [place], [place] AG[place] GENER[place] AGENCY GENERIC [id number] 2015-Pres Agency ent documented as of this encounter
--- OUTSIDE RECORDS SUMMARY | 2020-02-01 02:25 | XMS REPORT | Summary of Care ---
:1970 Author Organization [facility] - Health Address [address] [place] [address] Care Team Providers Name Role Phone Scottie Rodriguez MD Primary Care Provider [phone] Reason for Visit Reason Comments Forms Dexcom Encounter Details Date Type Department Care Team Description 11/22/2019 Telephone [facility] Endocrinology- Susan Burciaga MD Forms (Dexcom) [address] [address] [address] [place] [address] [phone] Allergies No Known Allergiesdocumented as of this encounter (statuses as of 11/22/2019) Medications Medication Sig Dispensed Refills Start End [...] Each 0 Active Meter,Continuous (DEXCOM 0 G6 INSIDE METER TESTER) MiscIndications: Type 1 diabetes mellitus with hyperglycemia [...] as of this encounter (statuses as of 11/22/2019) Active Problems Problem Noted Date Schizophrenia Neuropathy Hepatitis C DMII (diabetes mellitus, type 2) Bipolar 1 disorder documented as of this encounter (statuses as of 11/22/2019) Resolved Problems Problem Noted Date Resolved Date Hemoptysis 08/31/2014 08/27/2019 Hematemesis 12/13/2005 08/27/2019 documented as of this encounter (statuses as of 11/22/2019) Social History Tobacco Use Types Packs/Day Years Used Date Current Every Day Smoker Cigarettes 1 30 Smokeless Tobacco: Former User Alcohol Use Drinks/Week oz/Week Comments No Sex Assigned at Date Recorded Not on file Job Start Date Occupation Industry Not on file Not on file Not on file Travel History Travel Start Travel End No recent travel history available. documented as of this encounter Last Filed Vital Signs Not on filedocumented in this encounter Plan of Treatment Date Type Specialty Care Team Description 01/01/2020 Office Visit Family Medicine Scottie Rodriguez MD [address] [place] [phone] 02/11/2020 Office Visit Endocrinology Diabetes & Kesired Susan rivas MD Metabolism [address] [place] [address] [phone] Health Maintenance Due Date Last Done Comments PNEUMOCOCCAL 0-64 YEARS COMBINED 07/14/1975 SERIES (1 of 1 - PPSV23) EYE EXAM 07/14/1979 DTaP,Tdap,and Td Vaccines (1 - 1980 Tdap) Depression Screening 1981 PAP SMEAR 1990 Breast Cancer Screening 11/30/2017 11/30/2016 (MAMMOGRAM) COLONOSCOPY 07/14/2019 Zoster Recombinant Vaccine 07/14/2019 (SHINGRIX) (1 of 2) INFLUENZA VACCINE (#1) 2019 HgA1C 04/08/2020 10/08/2019, 06/11/2019, 08/31/2014 CREATININE (SERUM) 06/11/2020 06/11/2019, 08/31/2014, 12/16/2005, Additional history exists LDL-C 06/11/2020 06/11/2019 URINE MICROALBUMIN 06/11/2020 06/11/2019 FOOT EXAM 10/07/2020 10/08/2019, 10/08/2019, 06/11/2019, Additional history exists documented as of this encounter Results Not on filedocumented in this encounter Additional Health Concerns Infection Onset Date Last Indicated Resolved Time Airborne- TB 11/04/2014 11/04/2014 documented as of this encounter Insurance Payer Benefit Plan / Subscriber ID Effective Phone Address T ype Group Dates [facility] [id number] 2019-Pres Medica re Adv HEALTHCARE - HEALTHCARE ent HMO MANAGED DUAL COMPLETE MEDICARE HMO KYLE WRIGHT xxxxxxxxx 2014-Pres [address] Medica id HEALTHCARE - HEALTHCARE [place] [id number] MANAGED MEDICAID [place] GENER[place] AGENC[place] GENERIC [id number] 2015-Pres Agency ent documented as of this encounter
--- OUTSIDE RECORDS SUMMARY | 2020-02-01 02:25 | XMS REPORT | Summary of Care ---
:1970 Author Organization [facility] - Health Address [address] [place] [id number] Care Team Providers Name Role Phone Scottie Rodriguez MD Primary Care Provider [phone] Reason for Visit Reason Comments Assessment Encounter Details Date Type Department Care Team Description 11/20/2019 Telephone [facility] Health Endocrinology- [place] [address] [address] [place] [address] [phone] Allergies No Known Allergiesdocumented as of this encounter (statuses as of 11/23/2019) Medications Medication Sig Dispensed Refills Start End [...] Each 0 Active Meter,Continuous (DEXCOM 0 G6 PIN BALL MACHINE MECHANIC) MiscIndications: Type 1 diabetes mellitus with hyperglycemia [...] Take 1 capsule by 30 capsule 5 08/27/2 02 Active mg capsuleIndications: mouth daily. 0 [...] as of this encounter (statuses as of 11/23/2019) Active Problems Problem Noted Date Schizophrenia Neuropathy Hepatitis C DMII (diabetes mellitus, type 2) Bipolar 1 disorder documented as of this encounter (statuses as of 11/23/2019) Resolved Problems Problem Noted Date Resolved Date Hemoptysis 08/31/2014 08/27/2019 Hematemesis 12/13/2005 08/27/2019 documented as of this encounter (statuses as of 11/23/2019) Social History Tobacco Use Types Packs/Day Years [...] Office Visit Family Medicine Scottie Rodriguez MD [address] [place] [phone] 02/11/2020 Office Visit Endocrinology Diabetes & Kesired Susan rivas MD [id number] [place] [address] [phone] Health Maintenance Due Date Last Done Comments [...] Effective Phone Address T ype Group Dates [facility] [id number] 2019-Pres Medica re Adv HEALTHCARE - HEALTHCARE ent HMO MANAGED DUAL COMPLETE MEDICARE HMO KYLE WRIGHT xxxxxxxxx 2014-Pres [address] Medica id HEALTHCARE - HEALTHCARE ent [id number] MANAGED MEDICAID [place] AGENCY GENERIC AGENCY GENERIC [id number] 2015-Pres Agency ent documented as of this encounter
--- OUTSIDE RECORDS SUMMARY | 2020-02-01 02:25 | XMS REPORT | Summary of Care ---
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) MiscIndications: Type 1 diabetes mellitus with hyperglycemia [...] as of this encounter (statuses as of 11/26/2019) Active Problems Problem Noted Date Schizophrenia Neuropathy Hepatitis C DMII (diabetes mellitus, type 2) Bipolar 1 disorder documented as of this encounter (statuses as of 11/26/2019) Resolved Problems Problem Noted Date Resolved Date Hemoptysis 08/31/2014 08/27/2019 Hematemesis 12/13/2005 08/27/2019 documented as of this encounter (statuses as of 11/26/2019) Social History Tobacco Use Types Packs/Day Years Used Date Current Every Day Smoker Cigarettes 1 30 Smokeless Tobacco: Former User Alcohol Use Drinks/Week oz/Week Comments No Sex Assigned at Date Recorded Not on file COVID-19 Exposure Response Date Recorded In the last month, have you been in contact with No / Unsure 10/08/2019 10:28 AM CDT someone who was confirmed or suspected to have Coronavirus / COVID-19? documented as of this encounter Last Filed Vital Signs Not on filedocumented in this encounter Plan of Treatment Date Type Specialty Care Team Description 01/01/2020 Office Visit Family Medicine Scottie Rodriguez MD [address] [place] [phone] 02/11/2020 Office Visit Endocrinology Diabetes & Kesired Susan rivas MD Metabolism [address] [place], [place] [phone] Health Maintenance Due Date Last Done Comments [...] Name Priority Date/Time Associated Diagnosis Comme nts INSURANCE CORRESPONDENCE Routine 10/08/2019 12:01 AM CDT documented in this encounter Results Not on filedocumented in this encounter Additional Health Concerns Infection Onset Date Last Indicated Resolved Time 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
--- OUTSIDE RECORDS SUMMARY | 2020-02-01 02:26 | XMS REPORT | Summary of Care ---
:1970 Author Organization [facility] - [facility] Address [address] [place] [address] Care Team Providers Name Role Phone Scottie Rodriguez MD Primary Care Provider [phone] Reason for Visit Reason Comments LAB Encounter Details Date Type Department Care Team Description 01/02/2020 Meal Cooker Visit [facility] Scottie Rodriguez MD [address] [place] [address] [place] [address] Type 1 diabetes mellitus with hyperglyce jenniffer; Professional Office 2, [facility] Lab Epigastric pain; Building Phlebotomy Hyperthy roidis Lab Professional Office Building [address] [place] [address] , [address] [place] [address] Allergies No Known Allergiesdocumented as of this encounter (statuses as of 01/02/2020) Medications Medication Sig Dispensed Refills Start End [...] Each 0 Active Meter,Continuous (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 Dexlansoprazole Take by mouth. 0 Active (DEXILANT) 60 mg capsule medroxyPROGESTERone 150 mg by 0 Active (DEPO-PROVERA) [...] 1 diabetes mellitus with hyperglycemia, Essential hypertension QUEtiapine (SEROQUEL) Take 1 tablet by 60 tablet 5 Active 300 mg mouth 2 (two) 0 tabletIndications: times daily. Disorganized schizophrenia documented as of this encounter (statuses as of 01/02/2020) Active Problems Problem Noted Date Schizophrenia Neuropathy Hepatitis C DMII (diabetes mellitus, type 2) Bipolar 1 disorder documented as of this encounter (statuses as of 01/02/2020) Resolved Problems Problem Noted Date Resolved Date Hemoptysis 08/31/2014 08/27/2019 Hematemesis 12/13/2005 08/27/2019 documented as of this encounter (statuses as of 01/02/2020) Immunizations Name Administration Dates Next Due TDAP 12/11/2019 documented as of this encounter Social History Tobacco Use Types Packs/Day Years Used Date Former Smoker Cigarettes 1 30 Smokeless Tobacco: Former User Alcohol Use Drinks/Week oz/Week Comments No Sex Assigned at Date Recorded Not on file COVID-19 Exposure Response Date Recorded In the last month, have you been in contact with No / Unsure 01/02/2020 8:07 AM CDT someone who was confirmed or suspected to have Coronavirus / COVID-19? documented as of this encounter Last Filed Vital Signs Not on filedocumented in this encounter Nursing Notes Rosaura Cormier - 01/02/2020 10:15 AM CDT Venipuncture collection performed by clean technique on the right anticubitus. Total of 1 attempts were made. Slight pressure and a bandage/dressing were applied to the site(s). The patient experiencedno complications. The following specimens were processed according to instructions and sent to [facility] laboratories per lab order on 01/02/20: LT BLUE SST 5 RED LAV PPT DK GREEN (LiHep) DK GREEN (SodH) PARNELL DK BLUE (K2) DK BLUE (S) ACD Blood Culture NIPT/NTD documented in this encounter Plan of Treatment Date Type Specialty Care Team Description 01/02/2020 Office Visit Family Medicine Scottie Rodriguez MD [address] [place] [phone] [phone] 02/11/2020 Office Visit Endocrinology Diabetes & Susan Dickson MD Metabolism [address] [place] [address] [phone] 05/07/2020 Office Visit Endocrinology Diabetes & Joe Yepez MD Metabolism [address] [place] [phone] Health Maintenance Due Date Last Done Comments EYE EXAM 07/14/1979 PAP SMEAR 1990 Breast Cancer Screening 11/30/2017 11/30/2016 (MAMMOGRAM) COLON CANCER SCREENING 07/14/2019 ANNUAL FIT/FOBT COLON CANCER SCREENING FIT 07/14/2019 DNA EVERY 3 YEARS COLON CANCER SCREENING 07/14/2019 SIGMOIDOSCOPY EVERY 5 YEARS COLONOSCOPY 07/14/2019 Colorectal Cancer Screening 07/14/2019 Zoster Recombinant Vaccine 07/14/2019 (SHINGRIX) (1 of 2) INFLUENZA VACCINE (#1) 2019 HgA1C 04/08/2020 10/08/2019, 06/11/2019, 08/31/2014 CREATININE (SERUM) 06/11/2020 06/11/2019, 08/31/2014, 12/16/2005, Additional history exists LDL-C 06/11/2020 06/11/2019 URINE MICROALBUMIN 06/11/2020 06/11/2019 FOOT EXAM 10/07/2020 10/08/2019, 10/08/2019, 06/11/2019, Additional history exists Depression Screening 01/01/2021 01/02/2020 DTaP,Tdap,and Td Vaccines (2 12/10/2029 12/11/2019 - Td) PNEUMOCOCCAL 0-64 YEARS Aged Out No longe r eligible COMBINED SERIES based on patient 's age to complete this topic documented as of this encounter Results Not on filedocumented in this encounter Visit Diagnoses Diagnosis Type 1 diabetes mellitus with hyperglyce jenniffer Type I (juvenile type) diabetes mellitus without mention of complication, not stated as uncontrolled Epigastric pain Abdominal pain, epigastric Hyperthyroidism Thyrotoxicosis without mention of goiter or other cause, without mention of thyrotoxic crisis or storm documented in this encounter Additional Health Concerns Infection Onset Date Last Indicated Resolved Time 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
--- OUTSIDE RECORDS SUMMARY | 2020-02-01 02:26 | XMS REPORT | Summary of Care ---
:1970 Author Organization [facility] - Health Address [address] [place] [address] Care Team Providers Name Role Phone Scottie Rodriguez MD Primary Care Provider [phone] Reason for Visit Reason Comments Assessment Encounter Details Date Type Department Care Team Description 12/21/2019 Telephone [facility] Family Medicine Scottie Cabrera MD Assessment - [address] [place] [facility] [place] [address] [place] [address] [phone] Allergies No Known Allergiesdocumented as of this encounter (statuses as of 12/24/2019) Medications Medication Sig Dispensed Refills Start End [...] Each 0 Active Meter,Continuous (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 0 G6 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) MiscIndications: Type 1 diabetes mellitus with hyperglycemia [...] as of this encounter (statuses as of 12/24/2019) Active Problems Problem Noted Date Schizophrenia Neuropathy Hepatitis C DMII (diabetes mellitus, type 2) Bipolar 1 disorder documented as of this encounter (statuses as of 12/24/2019) Resolved Problems Problem Noted Date Resolved Date Hemoptysis 08/31/2014 08/27/2019 Hematemesis 12/13/2005 08/27/2019 documented as of this encounter (statuses as of 12/24/2019) Immunizations Name Administration Dates Next Due TDAP 12/11/2019 documented as of this encounter Social History Tobacco Use Types Packs/Day Years Used Date Former Smoker Cigarettes 1 30 Smokeless Tobacco: Former User Alcohol Use Drinks/Week oz/Week Comments No Sex Assigned at Date Recorded Not on file COVID-19 Exposure Response Date Recorded In the last month, have you been in contact with No / Unsure 12/11/2019 9:59 AM CDT someone who was confirmed or suspected to have Coronavirus / COVID-19? documented as of this encounter Last Filed Vital Signs Not on filedocumented in this encounter Miscellaneous Notes Telephone Encounter - Yesika Howe - 12/24/2019 10:03 AM CDTAttempted to reach patient this morning could not leave a V/M because mail box was full elephone Encounter - Brandy Mart LVN - 12/21/2019 3:43 PM CDTReturned patient call there was no answer and the VM is full. Will try again later. elephone Encounter - Jen Sesay - 12/21/2019 2:09 PM CDTPatient is calling and is requesting a refill on her medication and is wanting to know if ould like to see her sooner due to a wound on her leg, please call patient back in regards to this encounter. documented in this encounter Plan of Treatment Date Type Specialty Care Team Description 01/01/2020 Office Visit Family Medicine Scottie Rodriguez MD [address] [place] [phone] 02/11/2020 Office Visit Endocrinology Diabetes & Kesired Susan rivas MD Metabolism [address] [place], [place] [address] Health Maintenance Due Date Last Done Comments EYE EXAM 07/14/1979 Depression Screening 1981 PAP SMEAR 1990 Breast [...] 10/07/2020 10/08/2019, 10/08/2019, 06/11/2019, Additional history exists DTaP,Tdap,and Td Vaccines (2 12/10/2029 12/11/2019 - [...] Effective Phone Address T ype Group Dates [facility] [id number] 2019-Pres Medica re Adv HEALTHCARE - HEALTHCARE ent HMO MANAGED DUAL COMPLETE MEDICARE HMO KYLE WRIGHT [id number] 2014-Pres [address] Medica id HEALTHCARE - HEALTHCARE ent [id number] MANAGED MEDICAID [place] AGENCY GENERIC AGENCY GENERIC [id number] 2015-Pres Agency ent documented as of this encounter
--- OUTSIDE RECORDS SUMMARY | 2020-02-01 02:26 | XMS REPORT | Summary of Care ---
:1970 Author Organization [facility] - Health Address [address] [place] [address] Care Team Providers Name Role Phone Scottie Rodriguez MD Primary Care Provider [phone] Reason for Visit Reason Comments Leg Pain Injury left lower leg 1 wk prior, p er pt source of imjury was shopping cart, apx 14 cm lac to leg, last tdap unk nown Encounter Details Date Type Department Care Team Description 12/11/2019 Urgent Care [facility] Khloe Marcus, MECHANICAL COMMISSIONING ENGINEER [address] [place] [address] [phone] Cellulitis of left lower extremity (Prim brock Dx); Medicine - [place] Provider, [facility] Laceration of left lower leg, initial en counter [address] [place] [address] Allergies No Known Allergiesdocumented as of this encounter (statuses as of 12/11/2019) Medications Medication Sig Dispensed Refills Start End [...] Each 0 Active Meter,Continuous (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 0 [...] 1 diabetes mellitus with hyperglycemia, Essential hypertension cephALEXin (KEFLEX) 500 Take 1 capsule by 20 capsule 0 02 12/21/19 Active mg capsuleIndications: mouth 2 (two) 0 20 Cellulitis of left lower times daily for 10 extremity days. Hospital, Clinic, or Other Ordered Dose Route Frequency Start Date End Date Status Facility Administered Medication cefTRIAXone (ROCEPHIN) 1000 mg IM ONCE 12/11/20192019 Ended 1,000 mg in lidocaine 1% (PF) (XYLOCAINE) 2.857 mL syringe documented as of this encounter (statuses as of 12/11/2019) Active Problems Problem Noted Date Schizophrenia Neuropathy Hepatitis C DMII (diabetes mellitus, type 2) Bipolar 1 disorder documented as of this encounter (statuses as of 12/11/2019) Resolved Problems Problem Noted Date Resolved Date Hemoptysis 08/31/2014 08/27/2019 Hematemesis 12/13/2005 08/27/2019 documented as of this encounter (statuses as of 12/11/2019) Immunizations Name Administration Dates Next Due TDAP [...] of this encounter Last Filed Vital Signs Vital Sign Reading Time Taken Comments Blood Pressure 110/58 12/11/2019 10:03 AM CDT Pulse 88 12/11/2019 10:03 AM CDT Temperature 36.4 C (97.5 F) 12/11/2019 10:03 AM CDT Respiratory Rate 18 12/11/2019 10:03 AM CDT Oxygen Saturation 98% 12/11/2019 10:03 AM CDT Inhaled Oxygen Concentration - - Weight 64.9 kg (143 lb) 12/11/2019 10:03 AM CDT Height 157.5 cm (5' 2") 12/11/2019 10:03 AM CDT Body Mass Index 26.16 12/11/2019 10:03 AM CDT documented in this encounter Progress Notes Calrita Marcus FNP - 12/11/2019 10:20 AM CDT Urgent Care: [facility] Patient Name: Roya Anne Date of : 1970 49 year old Primary Care Physician: Scottie Rodriguez Chief Complaint Chief Complaint Patient presents with Leg Pain Injury left lower leg 1 wk prior, per pt source of imjury was shopping cart, apx 14 cm lac to leg, last tdap unknown HPI Presenting with left lower leg laceration that happened about 1 week ago, patient states the shopping cart cut her left while she was trying to stop it from "getting away", patient states she has been applying bactroban ointment with no improvement. She denies any fevers at home, denies any falls. Sheis otherwise doing well and has no other complaints. Unknown last TDAP Past Medical History / Immunizations Past Medical History: Diagnosis Date Bipolar 1 disorder DMII (diabetes mellitus, type 2) Hepatitis C Neuropathy Schizophrenia Past Surgical History Past Surgical History: Procedure Laterality Date SECTION CHOLECYSTECTOMY TUBAL LIGATION Allergies No Known Allergies Review of Systems Review of Systems Constitutional: Negative for activity change, appetite change, chills, fatigue and fever. Respiratory: Negative for cough and shortness of breath. Cardiovascular: Negative for chest pain and palpitations. Gastrointestinal: Negative for abdominal pain, diarrhea, nausea and vomiting. Musculoskeletal: Negative for back pain and gait problem. Skin: Positive for color change and wound. Negative for rash. Neurological: Negative for weakness and headaches. Psychiatric/Behavioral: Negative for agitation and confusion. The patient is not nervous/anxious. All other systems reviewed and are negative. Physical Exam BP 110/58 | Pulse 88 | Temp 36.4 C (97.5 F) (Oral) | Resp 18 | Ht 5' 2" (1.575 m) | Wt 143 lb (64.9 kg) | SpO2 98% | BMI 26.16 kg/m Physical Exam Vitals signs and nursing note reviewed. Constitutional: General: She is not in acute distress. Appearance: She is well-developed. She is not ill-appearing, toxic-appearing or diaphoretic. HENT: Head: Normocephalic. Right Ear: External ear normal. Left Ear: External ear normal. Nose: Nose normal. Eyes: Pupils: Pupils are equal, round, and reactive to light. Neck: Musculoskeletal: Normal range of motion and neck supple. Cardiovascular: Rate and Rhythm: Normal rate and regular rhythm. Heart sounds: Normal heart sounds. Pulmonary: Effort: Pulmonary effort is normal. No tachypnea, bradypnea, accessory muscle usage or respiratory distress. Breath sounds: Normal breath sounds. No stridor. No wheezing or rales. Chest: Chest wall: No tenderness. Musculoskeletal: Normal range of motion. Skin: General: Skin is warm and dry. Coloration: Skin is not pale. Findings: Laceration present. No erythema or rash. Comments: About 12 inch straight laceration noted to carvalho of left lower leg, with surrounding cellulitis and yellow discharge noted to open wound. Neurological: Mental Status: She is alert and oriented to person, place, and time. Psychiatric: Speech: Speech normal. Behavior: Behavior normal. Thought Content: Thought content normal. Judgment: Judgment normal. Labs No results found for this or any previous visit (from the past 24 hour(s)). Orders and Treatments Orders Placed This Encounter Procedures TDAP VACCINE, >10 YRS, IM Outpatient Encounter Medications as of 12/11/2019 Medication Sig cephALEXin (KEFLEX) 500 mg capsule Take 1 capsule by mouth 2 (two) times daily for 10 days. pregabalin (LYRICA) 150 mg capsule Take 1 capsule by mouth daily. lisinopril 5 mg tablet Take 1 tablet by mouth daily. zolpidem 10 mg tablet Take 1 tablet by mouth at bedtime as needed for Insomnia. Dexlansoprazole (DEXILANT) 60 mg capsule Take by mouth. dicyclomine 20 mg tablet Take 1 tablet by mouth 2 (two) times daily. linaCLOtide (LINZESS) 290 mcg Cap Take 290 mg by mouth daily. medroxyPROGESTERone (DEPO-PROVERA) 150 mg/mL injection 150 mg by Intramuscular route every 3 (three) months. ondansetron (ZOFRAN) 4 mg tablet Take 1 tablet by mouth every 12 (twelve) hours. pregabalin (LYRICA) 75 mg capsule Take 1 capsule by mouth daily. QUEtiapine (SEROQUEL) 300 mg tablet Take 300 mg by mouth 2 (two) times daily. Blood-Glucose Meter,Continuous (DEXCOM G6 PELLET MACHINE OPERATOR) Misc Use as directed Blood-Glucose Sensor (DEXCOM G6 SENSOR) Barb Use as directed Blood-Glucose Transmitter (DEXCOM G6 TRANSMITTER) Barb Use as directed HUMALOG KWIKPEN INSULIN 100 unit/mL injection INJECT 10 UNITS SUBCUTANEOUSLY 3 TIMES A DAY (BEFORE EACH MEAL) PER SLIDING SCALE TOUJEO MAX U-300 SOLOSTAR 300 unit/mL (3 mL) InPn No results found for this visit on 12/11/19. Diagnosis Roya was seen today for leg pain and injury. Diagnoses and all orders for this visit: Cellulitis of left lower extremity - cephALEXin (KEFLEX) 500 mg capsule; Take 1 capsule by mouth 2 (two) times daily for 10 days. Laceration of left lower leg, initial encounter - TDAP VACCINE, >10 YRS, IM Other orders - cefTRIAXone (ROCEPHIN) 1,000 mg in lidocaine 1% (PF) (XYLOCAINE) 2.857 mL syringe Disposition & Follow Up - Discussed diagnosis and treatment plan with pt. All question & concerns were addressed. - Pt advised on frequent effective handwashing - Pt advised to keep wound clean & dry, cleanse with mild, soap, & pat dry daily. Pt advisedto monitor wound for worsening S&S of infection such as redness, drainage, warmth, increased pain/swelling, or fever - Pt advised to apply clean bandage to wound daily - Pt advised may apply warm compresses for comfort - Pt advised to administer Tylenol or Motrin as needed for pain as per label recommendations - AVS and Written/handout materials appropriate to problem and teaching provided. - Pt advised to follow-up with PCP within 48-72 hours. Stressed importance of follow-up - Pt advised to return to Urgent Care or go to the nearest Emergency Department for any new, worsening, persistent, or concerning symptoms. - Pt verbalized understanding of all instructions MELANIE Mazariegos 12/11/2019 10:17 AM Summer Quintero RN - 12/11/2019 10:20 AM CDT49 year old female has been identified by and name. Verbal consent has been obtained by patientto have an injection, as ordered by the provider. The site was cleaned with an alcohol swab and given intramuscularly (IM). A band aid dressing was then applied to the injection site. The patient tolerated the procedure well and was observed for 20 minutes after the injection for possible reaction. Patient provided with preferred teaching of verbal information on Anaphylaxis. Shows readiness to learn. Verbal/Written instruction teaching provided. Individual is able to read and verbalizes understanding of teaching provided. Signs and Symptoms of Anaphylaxis (severe allergic reaction) are: Tingling, itching or metallic taste in mouth; hives; difficulty breathing; swelling and/or itching of mouth and/or throat; diarrhea, vomiting, cramps and stomach pain; paleness; loss of consciousness. IF YOU HAVE ANY OF THE SYMPTOMS ABOVE, ACT FAST!!! CALL 911 IMMEDIATELY IF YOU HAVE A PRESCRIBED EPI-PEN PLEASE USE IT NOW. Marylu Romano RN - 12/11/2019 10:20 AM CDT Roya Anne is a 49 year old female Chief Complaint Patient presents with Leg Pain Injury left lower leg 1 wk prior, per pt source of imjury was shopping cart, apx 14 cm lac to leg, last tdap unknown Vitals: 12/11/19 1003 BP: 110/58 Pulse: 88 Resp: 18 Temp: 36.4 C (97.5 F) TempSrc: Oral SpO2: 98% Weight: 143 lb (64.9 kg) Height: 5' 2" (1.575 m) [facility]/pharmacy #[id number] [place], [place] - [address] [place] [address] AT [facility] Patient AAOx4 and in no acute distress. All Vitals taken, allergies and all medications reviewed, fall risk assessed. documented in this encounter Plan of Treatment Date Type Specialty Care Team Description 01/01/2020 Office Visit Family Medicine Scottie Rodriguez MD [address] [place] [address] 02/11/2020 Office Visit Endocrinology Diabetes & Kesired Susan rivas MD Metabolism [address] [place] [address] Health Maintenance Due Date Last Done Comments [...] Name Priority Date/Time Associated Diagnosis Comme nts TDAP VACCINE, >11 YRS, Routine 12/11/2019 10:15 AM Laceration of left IM CDT lower leg, initial encounter documented in this encounter Results Not on filedocumented in this encounter Visit Diagnoses Diagnosis Cellulitis of left lower extremity - Ellen jonathan Cellulitis and abscess of leg, except fo ot Laceration of left lower leg, initial en counter documented in this encounter Administered Medications Medication Order MAR Action Action Date Dose Rate Site cefTRIAXone (ROCEPHIN) Given 12/11/2019 10:27 AM 1,000 mg Left 1,000 mg in lidocaine 1% CDT Dorsogluteal-IM (PF) (XYLOCAINE) 2.857 mL syringe Intramuscular, ONCE, 1 dose, 12/11/19 at 1115, 2.857 mL, Reason for Anti-Infective: Documented Infection, Documented Infection Site: Skin / Soft Tissue, Duration of Therapy: 7 days documented in this encounter Additional Health Concerns Infection Onset Date Last Indicated Resolved Time 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
--- OUTSIDE RECORDS SUMMARY | 2020-02-01 02:26 | XMS REPORT | Summary of Care ---
:1970 Author Organization [facility] - Health Address [address] [place] [address] Care Team Providers Name Role Phone Scottie Rodriguez MD Primary Care Provider [phone] Reason for Visit Reason Comments Refill Request Encounter Details Date Type Department Care Team Description 12/24/2019 Refill [facility] Family Medicine Scottie Cabrera MD Refill Request - [address] [place] [address] [place] [address] [place] [address] [phone] Allergies No Known Allergiesdocumented as of this encounter (statuses as of 12/24/2019) Medications Medication Sig Dispensed Refills Start End Status Date Date HUMALOG KWIKPEN INJECT 10 UNITS 0 Active INSULIN 100 unit/mL SUBCUTANEOUSLY 3 019 injection TIMES A DAY (BEFORE EACH MEAL) PER SLIDING SCALE TOUJEO MAX U-300 0 Act ean SOLOSTAR 300 unit/mL 019 (3 mL) InPn Blood-Glucose Sensor Use as directed 3 Each 11 Active (DEXCOM G6 SENSOR) 020 DeviIndications: Type 1 diabetes mellitus with hyperglycemia Blood-Glucose Use as directed 1 Each 3 Active Transmitter (DEXCOM G6 020 TRANSMITTER) DeviIndications: Type 1 diabetes mellitus with hyperglycemia Blood-Glucose Use as directed 1 Each 0 Active Meter,Continuous 020 (DEXCOM G6 ECHO VASCULAR TECHNOLOGIST) MiscIndications: Type 1 diabetes mellitus with hyperglycemia linaCLOtide (LINZESS) Take 290 mg by 0 Active 290 mcg Cap mouth daily. Dexlansoprazole Take by mouth. 0 Active (DEXILANT) 60 mg capsule medroxyPROGESTERone 150 mg by 0 Active (DEPO-PROVERA) 150 Intramuscular mg/mL injection route every 3 (three) months. pregabalin (LYRICA) Take 1 capsule by 30 capsule 5 Active 150 mg mouth daily. 020 capsuleIndications: Neuropathy pregabalin (LYRICA) 75 Take 1 capsule by 30 capsule 5 08/27/ Active mg capsuleIndications: mouth daily. 020 Neuropathy ondansetron (ZOFRAN) 4 Take 1 tablet by 60 tablet 5 Active mg tabletIndications: mouth every 12 020 Gastroparesis (twelve) hours. dicyclomine 20 mg Take 1 tablet by 60 tablet 5 Active tabletIndications: mouth 2 (two) 020 Gastroparesis times daily. zolpidem 10 mg Take 1 tablet by 14 tablet 0 Active tabletIndications: mouth at bedtime 020 Insomnia due to other as needed for mental disorder Insomnia. lisinopril 5 mg Take 1 tablet by 90 tablet 3 Active tabletIndications: mouth daily. 020 Type 1 diabetes mellitus with hyperglycemia, Essential hypertension QUEtiapine (SEROQUEL) Take 1 tablet by 60 tablet 5 Active 300 mg mouth 2 (two) 020 tabletIndications: times daily. Disorganized schizophrenia QUEtiapine (SEROQUEL) Take 300 mg by 0 300 mg tablet mouth 2 (two) 2020 (R eorder) times daily. documented as of this encounter (statuses as [...] Telephone Encounter - Yesika Howe - 12/24/2019 2:35 PM CDT Last office visit 08/28/19 Last refill was QUEtiapine (SEROQUEL) 300 mg tablet COLUMBA: No Sig: Take 300 mg by mouth 2 (two) times daily. Class: Historical Med Route: Oral Order: [id number] documented in this encounter Plan of Treatment Date Type Specialty Care Team Description 01/01/2020 Office Visit Family Medicine Scottie Rodriguez MD [address] [place] [phone] 02/11/2020 Office Visit Endocrinology Diabetes & Kesired Susan rivas MD Metabolism [address] [place], [place] [address] Health Maintenance Due Date Last Done Comments [...] filedocumented in this encounter Visit Diagnoses Diagnosis Disorganized schizophrenia - Primary Disorganized schizophrenia, unspecified condition documented in this encounter Additional Health Concerns Infection Onset Date Last Indicated Resolved Time 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
--- OUTSIDE RECORDS SUMMARY | 2020-02-01 02:27 | XMS REPORT | Summary of Care ---
:1970 Author Organization [facility] - Health Address [address] [place] [address] Care Team Providers Name Role Phone Scottie Rodriguez MD Primary Care Provider [phone] Reason for Visit Reason Comments Assessment Encounter Details Date Type Department Care Team Description 01/14/2020 Telephone [facility] Family Medicine Scottie Cabrera MD Assessment - [address] mckoy [facility] [place] [address] [place] [address] [phone] Allergies No Known Allergiesdocumented as of this encounter (statuses as of 01/15/2020) Medications Medication Sig Dispensed Refills Start End [...] Each 0 Active Meter,Continuous (DEXCOM 0 G6 GASSER MACHINE OPERATOR) MiscIndications: Type 1 diabetes mellitus [...] as of this encounter (statuses as of 01/15/2020) Active Problems Problem Noted Date Schizophrenia Neuropathy Hepatitis C DMII (diabetes mellitus, type 2) Bipolar 1 disorder documented as of this encounter (statuses as of 01/15/2020) Resolved Problems Problem Noted Date Resolved Date Hemoptysis 08/31/2014 08/27/2019 Hematemesis 12/13/2005 08/27/2019 documented as of this encounter (statuses as of 01/15/2020) Immunizations Name Administration Dates Next Due TDAP [...] this encounter Miscellaneous Notes Telephone Encounter - Vanessa Felix - 01/14/2020 10:39 AM [facility] request placed in nurse box documented in this encounter Plan of Treatment Date Type Specialty Care Team Description 02/11/2020 Office Visit Endocrinology Diabetes & Susan Dickson MD Metabolism [address] [place] [address] [phone] 05/07/2020 Office Visit Endocrinology Diabetes & Joe Yepez MD Metabolism [address] [place] [address] [phone] Health Maintenance Due Date Last Done Comments [...] (#1) 2019 HgA1C 04/08/2020 10/08/2019, 06/11/2019, 08/31/2014 LDL-C 06/11/2020 06/11/2019 URINE MICROALBUMIN 06/11/2020 06/11/2019 CREATININE (SERUM) 01/01/2021 01/02/2020, 06/11/2019, 08/31/2014, Additional history exists Depression Screening 01/01/2021 01/02/2020 FOOT EXAM 01/01/2021 01/02/2020, 01/02/2020, 10/08/2019, Additional history exists DTaP,Tdap,and Td Vaccines (2 [...] / Subscriber ID Effective Phone Address T e Group Dates [facility] [id number] 2019-Pres Medica re Adv HEALTHCARE - HEALTHCARE ent HMO MANAGED DUAL COMPLETE MEDICARE HMO KYLE WRIGHT [id number] 2014-Pres [address] Medica id HEALTHCARE - HEALTHCARE ent [id number] MANAGED MEDICAID [place] AGENCY GENERIC AGENCY GENERIC [id number] 2015-Pres Agency ent documented as of this encounter
--- OUTSIDE RECORDS SUMMARY | 2020-02-01 02:27 | XMS REPORT | Summary of Care ---
:[address] [facility] - Health Address [address] [place] [address] Care Team Providers Name Role Phone Scottie Rodriguez MD Primary Care Provider [phone] Reason for Visit Reason Comments Assessment Encounter Details Date Type Department Care Team Description 01/10/2020 Telephone [facility] Family Medicine Scottie Cabrera MD Assessment - [address] mckoy [facility] [place] [address] [place] [address] [phone] Allergies No Known Allergiesdocumented as of this encounter (statuses as of 01/10/2020) Medications Medication Sig Dispensed Refills Start End [...] Each 0 Active Meter,Continuous (DEXCOM 0 G6 HULL GRINDER) MiscIndications: Type 1 diabetes mellitus with hyperglycemia [...] as of this encounter (statuses as of 01/10/2020) Active Problems Problem Noted Date Schizophrenia Neuropathy Hepatitis C DMII (diabetes mellitus, type 2) Bipolar 1 disorder documented as of this encounter (statuses as of 01/10/2020) Resolved Problems Problem Noted Date Resolved Date Hemoptysis 08/31/2014 08/27/2019 Hematemesis 12/13/2005 08/27/2019 documented as of this encounter (statuses as of 01/10/2020) Immunizations Name Administration Dates Next Due TDAP [...] Notes Telephone Encounter - Vanessa Felix - 01/10/2020 8:04 AM [facility] refill on Metformin placed in nurse box documented in this encounter Plan of Treatment Date Type Specialty Care Team Description 02/11/2020 Office Visit Endocrinology Diabetes & Susan Dickson MD Metabolism [address] [place] [address] [phone] 05/07/2020 Office Visit Endocrinology Diabetes & Joe Yepez MD Metabolism [address] [place] [address] [phone] Health Maintenance Due Date Last Done Comments [...] Effective Phone Address T e Group Dates [facility] [id number] 2019-Pres Medica re Adv HEALTHCARE - HEALTHCARE ent HMO MANAGED DUAL COMPLETE MEDICARE HMO KYLE WRIGHT [id number] 2014-Pres [address]OX Medica id HEALTHCARE - HEALTHCARE ent [id number] MANAGED MEDICAID [place] AGENCY GENERIC AGENCY GENERIC [id number] 2015-Pres Agency ent documented as of this encounter
--- OUTSIDE RECORDS SUMMARY | 2020-02-01 02:27 | XMS REPORT | Summary of Care ---
:1970 Author Organization [facility] - [facility] Address [address] [place] [address] Care Team Providers Name Role Phone Scottie Rodriguez MD Primary Care Provider [phone] Reason for Visit Reason Comments Abdominal Pain Severe pain upper abdomen X several days Encounter Details Date Type Department Care Team Description 01/02/2020 Office Visit [facility] - Caitlyn Weldon MD pancreatitis, [address] [place] [address] [place], [place] [address] (Primary Dx) [phone] Allergies No Known Allergiesdocumented as of this [...] Each 0 Active Meter,Continuous (DEXCOM 0 G6 SURVEYING CREW STAKE RUNNER) MiscIndications: Type 1 diabetes mellitus with hyperglycemia [...] Sign Reading Time Taken Comments Blood Pressure 124/62 01/02/2020 2:28 PM CDT Pulse 125 01/02/2020 2:28 PM CDT Temperature - - Respiratory Rate - - Oxygen Saturation - - Inhaled Oxygen Concentration - - Weight 63.5 kg (140 lb) 01/02/2020 2:28 PM CDT Height 157.5 cm (5' 2") 01/02/2020 2:28 PM CDT Body Mass Index 25.61 01/02/2020 2:28 PM CDT documented in this encounter Progress Notes Scottie Rodriguez MD - 01/02/2020 1:45 PM CDT CC: epigastric pain Roya is a 49 year old female Abdominal Pain Pain location: Epigastric Pain quality: aching and cramping Pain radiates to: Does not radiate Pain severity: Severe Duration: 4 days Timing: Constant Progression: Worsening Chronicity: Recurrent Context: not alcohol use, not diet changes, not suspicious food intake and not trauma Relieved by: Nothing Associated symptoms: anorexia Associated symptoms: no chills and no fever No Known Allergies Current Outpatient Medications Medication Sig Dispense Refill QUEtiapine (SEROQUEL) 300 mg tablet Take 1 tablet by mouth 2 (two) times daily. 60 tablet 5 lisinopril 5 mg tablet Take 1 tablet by mouth daily. 90 tablet 3 zolpidem 10 mg tablet Take 1 tablet by mouth at bedtime as needed for Insomnia. 14 tablet 0 Dexlansoprazole (DEXILANT) 60 mg capsule Take by mouth. dicyclomine 20 mg tablet Take 1 tablet by mouth 2 (two) times daily. 60 tablet 5 linaCLOtide (LINZESS) 290 mcg Cap Take 290 mg by mouth daily. medroxyPROGESTERone (DEPO-PROVERA) 150 mg/mL injection 150 mg by Intramuscular route every 3 (three) months. ondansetron (ZOFRAN) 4 mg tablet Take 1 tablet by mouth every 12 (twelve) hours. 60 tablet 5 pregabalin (LYRICA) 150 mg capsule Take 1 capsule by mouth daily. 30 capsule 5 pregabalin (LYRICA) 75 mg capsule Take 1 capsule by mouth daily. 30 capsule 5 Blood-Glucose Meter,Continuous (DEXCOM G6 SURVEYING CREW STAKE RUNNER) Misc Use as directed 1 Each 0 Blood-Glucose Sensor (DEXCOM G6 SENSOR) Barb Use as directed 3 Each 11 Blood-Glucose Transmitter (DEXCOM G6 TRANSMITTER) Barb Use as directed 1 Each 3 HUMALOG KWIKPEN INSULIN 100 unit/mL injection INJECT 10 UNITS SUBCUTANEOUSLY 3 TIMES A DAY (BEFORE EACH MEAL) PER SLIDING SCALE TOUN3TWORKO MAX U-300 SOLOSTAR 300 unit/mL (3 mL) InPn No current facility-administered medications for this visit. 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 Social Needs Financial resource strain: Not on file Food insecurity Worry: Not on file Inability: Not on file Transportation needs Medical: Not on file Non-medical: Not on file Tobacco Use Smoking status: Former Smoker Packs/day: 1.00 Years: 30.00 Pack years: 30.00 Types: Cigarettes Smokeless tobacco: Former User Substance and Sexual Activity Alcohol use: No Drug use: Yes Comment: crack, meth, synthetic marijuana Sexual activity: Not on file Lifestyle Physical activity Days per week: Not on file Minutes per session: Not on file Stress: Not on file Relationships Social connections Talks on phone: Not on file Gets together: Not on file Attends jew service: Not on file Active member of club or organization: Not on file Attends meetings of clubs or organizations: Not on file Relationship status: Not on file Intimate partner violence Fear of current or ex partner: Not on file Emotionally abused: Not on file Physically abused: Not on file Forced sexual activity: Not on file Other Topics Concern Not on file Social History Narrative Not on file Family History Problem Relation Age of Onset Cancer Maternal Grandmother Lung Review of Systems Constitutional: Negative for chills and fever. Gastrointestinal: Positive for abdominal pain and anorexia. BP 124/62 (BP Location: Left arm, Patient Position: Sitting, BP CUFF SIZE: Adult Large) | Pulse 125 | Ht 5' 2" (1.575 m) | Wt 140 lb (63.5 kg) | BMI 25.61 kg/m Physical Exam Constitutional: She is oriented to person, place, and time. She appears well- developed and well-nourished. HENT: Head: Normocephalic and atraumatic. Eyes: Pupils are equal, round, and reactive to light. Conjunctivae are normal. Neck: Normal range of motion. Neck supple. No JVD present. No tracheal deviation present. No thyromegaly present. Cardiovascular: Normal rate, regular rhythm, normal heart sounds and intact distal pulses. Exam reveals no gallop and no friction rub. No murmur heard. Pulmonary/Chest: Effort normal and breath sounds normal. No respiratory distress. She has no wheezes. She has no rales. She exhibits no tenderness. Abdominal: Soft. Bowel sounds are normal. She exhibits no distension and no mass. There is abdominaltenderness. There is no rebound and no guarding. Musculoskeletal: Normal range of motion. General: No tenderness or edema. Lymphadenopathy: She has no cervical adenopathy. Neurological: She is alert and oriented to person, place, and time. Skin: Skin is warm and dry. Results for ROYA FITZPATRICK ( ) as of 01/02/2020 14:44 Ref. Range 01/02/2020 09:10 NA Latest Ref Range: 135 - 145 mmol/L 137 K Latest Ref Range: 3.5 - 5.0 mmol/L 4.4 CL Latest Ref Range: 98 - 108 mmol/L 100 CO2 TOTAL Latest Ref Range: 23 - 31 mmol/L 17 (L) AGAP Latest Ref Range: 2 - 16 20 (H) BUN Latest Ref Range: 7 - 23 mg/dL 14 GLUCOSE Latest Ref Range: 70 - 110 mg/dL 316 (H) CREATININE Latest Ref Range: 0.50 - 1.04 mg/dL 0.69 eGFR CALCULATION (non ) Latest Units: mL/min/1.73m2 90.1 eGFR CALCULATION () Latest Units: mL/min/1.73m2 109.1 TOTAL BILI Latest Ref Range: 0.1 - 1.1 mg/dL 0.6 CALCIUM Latest Ref Range: 8.6 - 10.6 mg/dL 10.8 (H) T PROTEIN Latest Ref Range: 6.3 - 8.2 g/dL 7.7 ALBUMIN Latest Ref Range: 3.5 - 5.0 g/dL 4.4 LIPASE Latest Ref Range: 0 - 220 U/L 1,734 (H) ALK PHOS Latest Ref Range: 34 - 122 U/L 142 (H) ALTv Latest Ref Range: 5 - 35 U/L 25 AST(SGOT) Latest Ref Range: 13 - 40 U/L 26 Diagnosis: 1. Idiopathic acute pancreatitis, unspecified complication status doesn't want hospitalization Rest gut and watch sugars closely If symptoms persist or worsen proceed to ER. Follow up: prn Patient Care Team: Scottie Rodriguez MD as PCP - General ([facility]-FAMILY MEDICINE) Plan of care, desired health behaviors, goals,& medication discussed with patient. Education resources & self management tools provided and reviewed with AVS. Patient/guardian/family verbalized understanding & agrees to plan of care. Barriers to care: None Ability to manage care: Good documented in this encounter Plan of Treatment Date Type Specialty Care Team Description 02/11/2020 Office Visit Endocrinology Diabetes & Susan Dickson MD Metabolism [address] [place] [address] [phone] 05/07/2020 Office Visit Endocrinology Diabetes & Joe Yepez MD Metabolism [facility] [place] [address] [phone] Health Maintenance Due Date Last Done Comments [...] filedocumented in this encounter Visit Diagnoses Diagnosis Idiopathic acute pancreatitis, unspecifi ed complication status - Primary documented in this encounter Additional Health Concerns Infection Onset Date Last Indicated Resolved Time 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
--- OUTSIDE RECORDS SUMMARY | 2020-02-01 02:27 | XMS REPORT | Summary of Care ---
:1970 Author Organization [facility] - [facility] Address [address] [place] [address] Care Team Providers Name Role Phone Scottie Rodriguez MD Primary Care Provider [phone] Reason for Visit Reason Comments Abdominal Pain Severe pain upper abdomen X several days Encounter Details Date Type Department Care Team Description 01/02/2020 Office Visit [facility] - Caitlyn Weldon MD pancreatitis, [address] [place] [address] [place], [place] [address] (Primary Dx) [phone] Allergies No Known Allergiesdocumented as of this [...] Each 0 Active Meter,Continuous (DEXCOM 0 G6 GEOPHYSICAL ENGINEER) MiscIndications: Type 1 diabetes mellitus with hyperglycemia [...] 30 capsule 5 Blood-Glucose Meter,Continuous (DEXCOM G6 GEOPHYSICAL ENGINEER) Misc Use as directed 1 Each 0 Blood-Glucose Sensor (DEXCOM G6 SENSOR) Barb Use as directed 3 Each 11 Blood-Glucose Transmitter (DEXCOM G6 TRANSMITTER) Barb Use as directed 1 Each 3 HUMALOG KWIKPEN INSULIN 100 unit/mL injection INJECT 10 UNITS SUBCUTANEOUSLY 3 TIMES A DAY (BEFORE EACH MEAL) PER SLIDING SCALE TOUQuantum DielectrricsO MAX U-300 SOLOSTAR 300 unit/mL (3 mL) [...] file Gets together: Not on file Attends yarsani service: Not on file Active member of [...] Endocrinology Diabetes & Susan Dickson MD Metabolism [address] [place] [address] [phone] 05/07/2020 Office Visit Endocrinology Diabetes & Joe Yepez MD Metabolism [facility] [place] [address] [phone] Health Maintenance Due Date Last Done Comments [...] Effective Phone Address T ype Group Dates [facility] [id number] 2019-Pres Medica re Adv HEALTHCARE - HEALTHCARE ent HMO MANAGED DUAL COMPLETE MEDICARE HMO KYLE WRIGHT [id number] 2014-Pres [address] Medica id HEALTHCARE - HEALTHCARE ent [id number] MANAGED MEDICAID [place], [place] documented as of this encounter
--- OUTSIDE RECORDS SUMMARY | 2020-02-01 02:27 | XMS REPORT | Summary of Care ---
:1970 Author Organization [facility] - [facility] Address [address] [place] [address] Care Team Providers Name Role Phone Scottie Rodriguez MD Primary Care Provider [phone] Reason for Visit Reason Comments Refill Request Encounter Details Date Type Department Care Team Description 01/14/2020 Telephone [facility] Family Scottie Rodriguez, Refill Request Medicine - Caitlyn ROGERS [address] [place] [address] Dr mck[address] [place] [address] [place] [address] [place] [address] [phone] Allergies No Known Allergiesdocumented as of this [...] Each 0 Active Meter,Continuous (DEXCOM 0 G6 SALICYLIC ACID BLENDER) MiscIndications: Type 1 diabetes mellitus with hyperglycemia [...] this encounter Miscellaneous Notes Telephone Encounter - Sofia Rebollar RN - 01/15/2020 8:16 AM CDTPatient called. No answer. Left voicemail. Patient called X3, closing encounter. elephone Encounter - Sofia Rebollar RN - 01/14/2020 3:14 PM CDTPatient called. No answer Left voicemail. Telephone Encounter - Sofia Rebollar RN - 01/14/2020 1:56 PM CDTPatient called. No answer. Left voicemail. Telephone Encounter - Carol Yepez MD - 01/14/2020 1:02 PM CDTPatient reports she has stomach pain and not on metformin for a while during visit Please verify with patient if she has been off metformin for a while elephone Encounter - Yesika Howe - 01/14/2020 11:52 AM CDTSending this request to you since your her endo physcian elephone Encounter - Linn Holman - 01/14/2020 10:31 AM CDTREFILL REQUEST METFORMIN HCL 500MG/ML SOLUTION 90 DAY SUPPLY REFILLS: 3 documented in this encounter Plan of Treatment Date Type Specialty Care Team Description 02/11/2020 Office Visit Endocrinology Diabetes & Kesired dy, Susan, MD Metabolism [address] [place] [address] [phone] 05/07/2020 Office Visit Endocrinology Diabetes & Joe Yepez MD Metabolism [address] [place] [address] [phone] Health Maintenance Due Date Last Done Comments [...] Effective Phone Address T ype Group Dates [facility] [id number] 2019-Pres Medica re Adv HEALTHCARE - HEALTHCARE ent HMO MANAGED DUAL COMPLETE MEDICARE HMO KYLE WRIGHT [id number] 2014-Pres [address]OX Medica id HEALTHCARE - HEALTHCARE ent [id number] MANAGED MEDICAID [place] AGENCY GENERIC AGENCY GENERIC [id number] 2015-Pres Agency ent documented as of this encounter
--- OUTSIDE RECORDS SUMMARY | 2020-02-01 02:28 | XMS REPORT | Summary of Care ---
:1970 Author Organization [facility] - Health Address [address] [place] [address] Care Team Providers Name Role Phone Scottie Rodriguez MD Primary Care Provider [phone] Reason for Visit Reason Comments Refill Request Encounter Details Date Type Department Care Team Description 01/15/2020 Refill [facility] Family Medicine Scottie Cabrera MD Refill Request - [address] [place] [address] [place] [address] [place] [address] [phone] Allergies No Known Allergiesdocumented as of this [...] Each 0 Active Meter,Continuous (DEXCOM 0 G6 PACKAGE LINE OPERATOR) MiscIndications: Type 1 diabetes mellitus with [...] Endocrinology Diabetes & Susan Dickson MD Metabolism [address] [place] [address] [phone] 05/07/2020 Office Visit Endocrinology Diabetes & Joe Yepez MD Metabolism [address] [place] [address] Health Maintenance Due Date Last Done Comments [...] this encounter Visit Diagnoses Diagnosis Disorganized schizophrenia Disorganized schizophrenia, unspecified condition documented in this encounter Additional Health Concerns Infection Onset Date Last Indicated Resolved Time 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
--- OUTSIDE RECORDS SUMMARY | 2020-02-01 02:28 | XMS REPORT | Summary of Care ---
:1970 Author Organization [facility] - Health Address [address] [place] [address] Care Team Providers Name Role Phone Scottie Rodriguez MD Primary Care Provider [phone] Reason for Visit Reason Comments Assessment Encounter Details Date Type Department Care Team Description 01/30/[address] 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) MiscIndications: Type 1 diabetes mellitus with hyperglycemia [...] as of this encounter (statuses as of 01/30/2020) Active Problems Problem Noted Date Schizophrenia Neuropathy Hepatitis C DMII (diabetes mellitus, type 2) Bipolar 1 disorder documented as of this encounter (statuses as of 01/30/2020) Resolved Problems Problem Noted Date Resolved Date Hemoptysis 08/31/2014 08/27/2019 Hematemesis 12/13/2005 08/27/2019 documented as of this encounter (statuses as of 01/30/2020) Immunizations Name Administration Dates Next Due TDAP [...] Notes Telephone Encounter - Vanessa Felix - 01/30/2020 1:41 PM [facility] placed in nurse box documented in this encounter Plan of Treatment Date Type Specialty Care Team Description 01/31/2020 Telemedicine Visit Family Medicine Scottie Rodriguez MD [address] [place] [id number] 02/11/2020 Office Visit Endocrinology Diabetes & Susan Randall , Metabolism MD [address] [place] [address] [phone] 05/07/2020 Office Visit Endocrinology Diabetes & Joe Yepez MD Metabolism [address] [place] [address] [phone] Health Maintenance Due Date Last Done Comments [...] Effective Phone Address T e Group Dates [facility] [id number] 2019-Pres Medica re Adv HEALTHCARE - HEALTHCARE ent HMO MANAGED DUAL COMPLETE MEDICARE HMO KYLE WRIGHT [id number] 2014-Pres [address] BOX Medica id HEALTHCARE - HEALTHCARE ent [id number] MANAGED MEDICAID [place] AGENCY GENERIC AGENCY GENERIC [id number] 2015-Pres Agency ent documented as of this encounter
[2020-02-01] MEDS: Ringers Lactate 1,000 ML IV SCH ×2 (03:49→08:20)
[2020-02-01] MEDS: INSULIN -REGULAR HUMAN 50 UNIT/0.5 ML ML SQ SCH (07:30)
--- NOTE | 2020-02-01 08:15 | P.DS ---
Admission Date: 01/31/20 Discharge Date: 02/01/20 Disposition: ROUTINE DISCHARGE Discharge Condition: GOOD Reason for Admission: Abdominal pain - Problems (1) Gastroenteritis Onset Date: 03/14/17 Current Visit: No Status: Acute (2) Enteritis Current Visit: Yes Status: Acute Brief History of Present Illness: Patient is a 49-year-old female the past medical history of bipolar disorder, schizophrenia and insulin-dependent diabetes mellitus. She is admitted with an acute onset of abdominal pain and nausea and vomiting. She is reporting an epigastric, nonradiating pain. Denies any diarrhea. Patient states that she gets these episodes at least twice a years. Denies being chronically on pain medications. Denies any history of chronic cannabis use. CT abdomen and pelvis in the ER showed enteritis. She is very restless and required injec tion of Haldol while in the ER. Hospital Course: Patient did well overall. She was placed on IVF repletion, anti-emetics and reglan. Her HR was elevated but lateral improved with aggressive volume repletion. She is feeling well this morning. She can go home and follow up with her PCP for her diabetes mellitus Vital Signs/Physical Exam: Temp Pulse Resp BP Pulse Ox 99.4 F 114 H 18 138/66 98 02/01/20 04:00 02/01/20 04:00 02/01/20 04:00 02/01/20 04:00 02/01/20 04:00 General: Alert, In no apparent distress, Cooperative HEENT: Atraumatic, Normocephalic, EOMI Neck: Supple Respiratory: Clear to auscultation bilaterally, Normal air movement Cardiovascular: No edema, Normal pulses, Regular rate/rhythm, Normal S1 S2 Gastrointestinal: Normal bowel sounds, Soft and benign, Non-distended, No tenderness Musculoskeletal: No clubbing, No swelling, No contractures, No erythema, No tenderness, No warmth Integumentary: No rashes, No breakdown, No significant lesion, No tenderness/swelling, No erythema, No warmth, No cyanosis Neurological: Normal speech, Sensation intact, Normal affect Laboratory Data at Discharge: WBC 11.0 K/uL (4.3-10.9) H 01/31/20 10:05 Hgb 14.6 g/dL (12.0-15.0) 01/31/20 10:05 Hct 43.4 % (36.0-45.0) 01/31/20 10:05 Plt Count 274 K/uL (152-406) 01/31/20 10:05 Sodium 137 mmol/L (136-145) 01/31/20 10:05 Potassium 3.7 mmol/L (3.5-5.1) 01/31/20 10:05 BUN 19 mg/dL (7-18) H 01/31/20 10:05 Creatinine 1.10 mg/dL (0.55-1.3) 01/31/20 10:05 Glucose 429 mg/dL (74-106) H* 01/31/20 10:05 Total Bilirubin 0.6 mg/dL (0.2-1.0) 01/31/20 10:05 AST 25 U/L (15-37) 01/31/20 10:05 ALT 33 U/L (12-78) 01/31/20 10:05 Alkaline Phosphatase 137 U/L (45-117) H 01/31/20 10:05 Lipase 335 U/L (73-393) 01/31/20 10:05 Home Medications: Albuterol Sulfate [Proair Hfa] 1 puff IN QID 01/20/18 Dexlansoprazole [Dexilant] 60 mg PO DAILY 01/20/18 Linaclotide [Linzess] 290 mcg PO DAILY 01/20/18 Ondansetron HCl [Zofran] 4 mg PO BID 01/20/18 Pregabalin [Lyrica*] 150 mg PO BID 01/20/18 Budesonide/Formoterol Fumarate [Symbicort 160-4.5 Mcg Inhaler] 2 puff IH BID 04/10/19 Dicyclomine [Bentyl*] 20 mg PO BID 04/10/19 Insulin Glargine,Hum.rec.anlog [Toujeo Max Solostar] 30 units SQ BEDTIME 04/10/19 Ferrous Sulfate [Ferrous Sulfate*] 325 mg PO TID #90 tab 04/13/19 Tramadol HCl [Ultram] 50 mg PO TID PRN #15 tablet 04/13/19 Medroxyprogester [Depo Provera*] 1 unit SQ Q90D 01/31/20 Codeine/APAP [Tylenol #3*] 1 tab PO BID tab 02/01/20 Docusate [Colace Cap*] 100 mg PO BID cap 02/01/20 Insulin -Regular Human [Novolin -R*] See Protocol SQ ACHS ml 02/01/20 Nitrofurantoin Monohyd/M-Cryst [Nitrofurantoin Plumas-Mcr 100 mg] 100 mg PO BID #6 capsule 02/01/20 Quetiapine [Seroquel*] 300 mg PO BID tab 02/01/20 Zolpidem Tartrate [Ambien*] 5 mg PO BEDTIME PRN PRN tablet 02/01/20 methocarbamoL [Robaxin*] 500 mg PO BID tab 02/01/20 New Medications: Nitrofurantoin Monohyd/M-Cryst [Nitrofurantoin Plumas-Mcr 100 mg] 100 mg PO BID #6 capsule Diet: ADA
[2020-02-01] MEDS: methocarbamoL 500 MG TAB PO SCH (08:44)
[2020-02-01] MEDS: QUETIAPINE 100MG TAB PO SCH (08:44)
[2020-02-01] MEDS: DOCUSATE NA 100 MG CAP PO SCH (08:45)
[2020-02-01] MEDS: PREGABALIN 150 MG CAP PO SCH (08:45)
[2020-02-01] MEDS: DICYCLOMINE HCL 10 MG CAP PO SCH (08:45)
[2020-02-01] MEDS: PANTOPRAZOLE 40 MG INJ IVP SCH (08:46)
[2020-02-01] MEDS: CODEINE 30MG/APAP 300MG TAB PO SCH (08:48)
[2020-02-01 08:52] VITALS: O2SAT 99
[2020-02-01 08:54] VITALS: BP 140/67; TEMP 99
[2020-02-01] MEDS ORDERED: HOME MED 1 EA UNK (Linaclotide [Linzess] 290 MCG) PO SCH (09:00)
--- NOTE | 2020-02-03 11:18 | EKG ---
Test Date: 2020-01-31 Test Time: 17:33:50 Rn Diabetes: LLOYD MEASUREMENT RESULTS: Intervals: Rate: 124 OK: 152 QRSD: 92 QT: 314 QTc: 451 [place]: P: 65 OK: 152 QRS: 68 T: 19 INTERPRETIVE STATEMENTS: Sinus tachycardia Otherwise normal ECG Compared to ECG 01/31/2020 10:51:48 Atrial abnormality no longer present Myocardial infarct finding no longer present Electronically Signed On 02-03-20 11:14:43 CDT by Edmund Melendez
== END 2020-02-01 09:53 | disposition home or self-care (01) ==
LOC: ER 09:51 → ERHOLD 11:52 → 2ND 13:35
PROVIDERS: ADMIT Internal Medicine; ATTEND Internal Medicine
DX: K52.9 Noninfective gastroenteritis and colitis, unspecified (principal); E11.65 Type 2 diabetes mellitus with hyperglycemia; F31.9 Bipolar disorder, unspecified; F20.9 Schizophrenia, unspecified; Z20.828 Contact with and (suspected) exposure to other viral communicable diseases; E11.40 Type 2 diabetes mellitus with diabetic neuropathy, unspecified; Z79.4 Long term (current) use of insulin; E78.5 Hyperlipidemia, unspecified; M54.2 Cervicalgia; G89.29 Other chronic pain
CPT/HCPCS: 96361; 93005 ×2; 87088; 85025; 87086; 80048; 36415; 82565; 82947 ×3; 80076; 83605; 83036; 83690; 74177; 96375; 96372; 96374; 99284; U0002; Q9967; J1630; J2550 ×5; C9113 ×3; J7120 ×3; J7030; J2405; G0378 ×3; 81003; 81015; J1815

== ENCOUNTER 2020-10-26 16:46 | Inpatient (IN) | payer OTHER ==
--- OUTSIDE RECORDS SUMMARY | 2020-10-26 16:56 | XMS REPORT | Continuity of Care Document ---
:1970 Author Organization [facility] t Address [address] [place] [address] Care Team Providers Name Role Phone Shiraz Rodriguez MD Attending Clinician Doctor Unassigned, Name Attending Clinician Unavailable Team, Health Maintenance Attending Clinician Unavailable Prakash ROGERS Attending Clinician Problems Condition Condition Condition Status Onset Resolution Last Treating Co mments Source Name Details Category Date Date Treatment Clinician Date Gastropare Gastropare Problem Active [facility] Diabetic Diabetic Problem [facility] 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 [facility] current current [facility] use [facility] use [facility] insulin [facility] Insomnia Insomnia Problem [facility] Osteoarthr Osteoarthr Problem Active [facility]is [facility] Anemia Anemia Problem Active [facility] Neuropathy Neuropathy Problem Active [facility] [...] Memori a with 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 Medications This patient has no known medications. Procedures This patient has no known procedures. Encounters Start End Encounter Admission Attending Care Care Encounter Source Date/Time Date/Time Type Type Clinicians Facility Department ID 2020-10-03 2020-10-03 Refill Veselka, [facility] 1.2.840.114 [id number] 00:00:00 00:00:00 [facility] [id number] [facility] [id number] [facility] [phone] [place] 0[address] One 2020-09-24 2020-09-24 Orders Doctor GAGANDEEP 1.2.840.114 [id number] 00:00:00 00:00:00 Only Unassigned, CLIFF [id number] [place] [facility] [phone] 009 2020-09-17 2020-09-17 Refill Veselka, [facility] 1.2.840.114 [id number] 00:00:00 00:00:00 [facility] [id number] [facility] [id number] Professio [phone] nal 044 Office Building One 2020-09-14 2020-09-14 Refill Vesel[place], [facility] 1.2.840.114 [id number] 00:00:00 00:00:00 Scottie Brady [id number] Edward Luis [id number] Professio [phone] [facility] 044 [facility] 2020-09-04 2020-09-04 Telemedici [facility] 1.2.840.114 [id number] 07:01:14 07:16:14 ne Visit Scottie Heard [id number] Edmalissa [place] [id number] Professio [phone] [place] [address] [address] One 2020-08-14 2020-08-14 Telephone Team, [facility] GAGANDEEP 1.2.840.114 [id number] 00:00:00 00:00:00 Health CLIFF [id number] [facility] [id number] [phone] 082 2020-07-15 2020-07-15 [facility] 1.2.840.114 [id number] 00:00:00 00:00:00 [facility] [id number] Edmalissa [place] [id number] Professio [phone] [place] [address] Office [facility] One 2020-07-15 2020-07-15 [facility] 1.2.840.114 [id number] 00:00:00 00:00:00 Susan Brady [id number] [place] [id number] Professio [phone] [facility] 220 [facility] 2020-06-17 2020-06-17 [facility] 1.2.840.114 [id number] 00:00:00 00:00:00 Scottie Brady [id number] Edward [place] [id number] Professio [phone] [address] 2020-06-03 2020-06-03 Orders Doctor GAGANDEEP 1.2.840.114 [id number] 00:00:00 00:00:00 Only Unassigned, CLIFF [id number] [place] [facility] [id number] 009 2020-05-23 2020-05-23 Refill [facility] 1.2.840.114 [id number] 00:00:00 00:00:00 Scottie Brady [id number] [place]malissa [place] [id number] Professio [phone] [address] 2020-05-23 2020-05-23 Telephone [facility] 1.2.840.114 [id number] 00:00:00 00:00:00 Susan [facility] [id number] [facility] [id number] [place] [phone] [facility] [place] [facility] 2020-05-22 2020-05-22 Telemedici [facility] 1.2.840.114 [id number] 07:35:33 07:50:33 ne Visit [facility] [id number] malissa [place] [id number] Professio [phone] [place] [address] [address] One 2020-05-21 2020-05-21 Telephone [facility] 1.2.840.114 [id number] 00:00:00 00:00:00 [facility] [id number] malissa [place] [id number] Professio [phone] [place] [address] Office [address] One 2020-05-20 2020-05-20 Telephone [facility] 1.2.840.114 [id number] 00:00:00 00:00:00 Susan [place] [id number] [place] [id number] Professio [phone] [facility] 220 [facility] 2020-05-19 2020-05-19 Orders Doctor GAGANDEEP 1.2.840.114 [id number] 00:00:00 00:00:00 Only Unassigned, CLIFF [id number] [place] [facility] [id number] 009 2020-05-15 2020-05-15 Telephone [facility] 1.2.840.114 [id number] 00:00:00 00:00:00 [facility] [id number] Edward [place] [id number] Professio [phone] [place] [address] [address] One 2020-05-13 2020-05-13 [facility]phone [facility] 1.2.840.114 [id number] 00:00:00 00:00:00 [facility] [id number] Edward [place] [id number] Professio [phone] [place] [address] Office Building One 2020-05-09 2020-05-09 [place] [facility] 1.2.840.114 [id number] 00:00:00 00:00:00 [facility] [id number] Edward [place] [id number] Professio [phone] [place] [address] Office [address] One 2020-05-05 2020-05-05 Telephone [facility] 1.2.840.114 [id number] 00:00:00 00:00:00 Susan [place] [id number] [place] [id number] Professio [phone] [address] 2020-04-14 2020-04-14 [place] [facility] 1.2.840.114 [id number] 00:00:00 00:00:00 Susan [place] [id number] [place] [id number] Professio [phone] [address] 2020-04-14 2020-04-14 [facility] 1.2.840.114 [id number] 00:00:00 00:00:00 Susan [place] [id number] [place] [id number] Professio [phone] [address] 2020-04-11 2020-04-11 Orders Doctor GAGANDEEP 1.2.840.114 [id number] 00:00:00 00:00:00 Only Unassigned, CLIFF [id number] [place] [facility] 4.2.7.2.686 [id number] [id number] 2020-04-09 2020-04-09 Telephone Prakash [facility] 1.2.840.114 [id number] 00:00:00 00:00:00 Susan Brady 350.1.13.10 [place] 4.2.7.2.686 Professio [phone] [facility] 220 Building 2020-04-08 2020-04-08 Telephone Jennifer [facility] 1.2.840.114 [id number] 00:00:00 00:00:00 [facility] [id number] malissa Brady [id number] Professio [phone] [facility] 044 Office Building One 2020-04-01 2020-04-01 Refill Prakash [facility] 1.2.840.114 [id number] 00:00:00 00:00:00 Susan Brady 350.1.13.10 [place] [id number] Professio [phone] [facility] 220 Building 2020-03-31 2020-03-31 Office Prakash [facility] 1.2.840.114 [id number] 13:18:18 14:18:48 Visit Susan Brady 350.1.13.10 [place] [id number] Professio [phone] [facility] 220 Building 2020-03-31 2020-03-31 Orders Doctor GAGANDEEP 1.2.840.114 [id number] 00:00:00 00:00:00 Only Unassigned, CLIFF [id number] [place] [facility] 4.2.7.2.686 [id number] [id number] 2018-05-03 2018-05-03 [id number] [facility] 10:54:00 10:54:00 [facility] Medicine Medicine Outpati ent Clinics Results This patient has no known results.
[2020-10-26] MEDS ORDERED: NA CHLORIDE 0.9% 1,000 ML ONE ×2 (17:28→18:36)
[2020-10-26] MEDS ORDERED: ONDANSETRON 4 MG/2 ML VIAL ONE ×2 (17:28→22:48)
[2020-10-26 17:30] LABS: Absolute Lymphocytes (CBC) 0.7 K/uL (0.7-4.9); Basophils % 0.2 % (0-1.3); Hematocrit 38.5 % (36.0-45.0); Lymphocytes % 5.5 % (15.3-44.8); MPV 10.2 fL (7.6-11.3); RBC Red Blood Cell Count 4.06 M/uL (3.86-4.86)
[2020-10-26 17:41] LABS: BUN Blood Urea Nitrogen 27 mg/dL (7-18); Bicarbonate 17 mmol/L (21-32); Potassium 4.8 mmol/L (3.5-5.1); Sodium Level 129 mmol/L (136-145)
[2020-10-26 17:55] LABS: Glucose Level 654 mg/dL (74-106)
[2020-10-26] MEDS ORDERED: PROMETHAZINE INJ 25 MG/ML AMP ONE (18:09)
[2020-10-26] MEDS ORDERED: MORPHINE 4 MG/ML SYR ONE (18:09)
[2020-10-26 18:10] LABS: Urine Blood Trace-intact (Negative); Urine Glucose 2+ (Negative); Urine Protein Negative (Negative); Urine pH 5.5 (5.0-7.0)
--- NOTE | 2020-10-26 18:10 | EDPHYS ---
Physician Documentation [facility] Name: Roya Anne Age: 50 yrs Sex: Female : 1970 Arrival Date: 10/26/2020 Time: 16:47 Bed 14 Private MD: ED Physician Javier Anne HPI: 10/26 17:55 This 50 yrs old Female presents to ER via EMS with complaints of abdominal kb pain, n/v, high sugar. 17:55 The patient has experienced similar episodes in the past, several times. The patient kb has not recently seen a physician. 17:56 The patient presents with abdominal pain in the upper abdomen. Onset: The kb symptoms/episode began/occurred 2 week(s) ago, and became worse. The symptoms radiate to back. Associated signs and symptoms: Pertinent positives: nausea and vomiting. The symptoms are described as constant. Modifying factors: The symptoms are alleviated by nothing, the symptoms are aggravated by nothing. Severity of pain: At its worst the pain was moderate severe in the emergency department the pain is unchanged. Pt reports upper abdominal pain for 2 weeks with nausea and vomiting. Came in today because she hasn't been able to keep anything down for 3 days. . Historical: - Allergies: 16:49 No Known Allergies; ll1 - PMHx: 16:49 Bipolar disorder; Diabetes - IDDM; Hypertension; neuropathy; Pancreatitis; ll1 Schizophrenia; Anemia; Hypothyroidism; "stomach CA cells"; - Immunization history:: Flu vaccine is not up to date. - Social history:: Smoking status: Patient denies any tobacco usage or history of. ROS: 17:55 Constitutional: Negative for fever, chills, and weight loss. kb 17:55 Abdomen/GI: Positive for abdominal pain, nausea and vomiting, Negative for diarrhea, constipation, abdominal cramps, abdominal distension, anorexia. 17:55 Endocrine: Positive for high sugar. 17:55 All other systems are negative. Exam: 17:41 Constitutional: This is a well developed, well nourished patient who is awake, alert, kb and in no acute distress. Head/Face: Normocephalic, atraumatic. ENT: Moist Mucous membranes Cardiovascular: Regular rate and rhythm with a normal S1 and S2. No gallops, murmurs, or rubs. No pulse deficits. Respiratory: Respirations even and unlabored. No increased work of breathing, no retractions or nasal flaring. Back: No spinal tenderness. No costovertebral tenderness. Full range of motion. Skin: Warm, dry with normal turgor. Normal color. MS/ Extremity: Pulses equal, no cyanosis. Neurovascular intact. Full, normal range of motion. Neuro: Awake and alert, GCS 15, oriented to person, place, time, and situation. Moves all extremities. Normal gait. Psych: Awake, alert, with orientation to person, place and time. Behavior, mood, and affect are within normal limits. 17:41 ECG was reviewed by the Attending Physician. 17:41 Abdomen/GI: Inspection: abdomen appears normal, Bowel sounds: normal, in all quadrants, Palpation: soft, in all quadrants, moderate abdominal tenderness, in the epigastric area, right upper quadrant and left upper quadrant. Vital Signs: 16:48 Weight 66.22 kg; Height 5 ft. 2 in. (157.48 cm); ll1 16:49 BP 147 / 90; Pulse 130; Resp 20; Temp 98.2(O); Pulse Ox 96% ; Weight 64.41 kg; Height 5 zb ft. 2 in. (157.48 cm); Pain 8/10; 18:39 BP 143 / 72; Pulse 120; Resp 20; Pulse Ox 98% on R/A; zb 16:49 Body Mass Index 25.97 (64.41 kg, 157.48 cm) zb MDM: 17:06 Patient medically screened. 17:55 Data reviewed: vital signs, nurses notes. Data interpreted: Pulse oximetry: on room air kb is 96 %. Interpretation: normal. 17:59 Counseling: I had a detailed discussion with the patient and/or guardian regarding: the historical points, exam findings, and any diagnostic results supporting the discharge/admit diagnosis, lab results, the need for further work-up and treatment in the hospital. 18:07 Physician consultation: Law LOPEZ was contacted at 18:08, regarding admission, to the ICU, patient's condition, and will see patient in ED, shortly. 10/26 17:07 Order name: CBC with Diff; Complete Time: 18:22 kb 10/26 17:07 Order name: Basic Metabolic Panel; Complete Time: 17:57 kb 10/26 17:07 Order name: Acetone, Serum; Complete Time: 17:57 kb 10/26 17:13 Order name: Glucose, Ancillary Testing; Complete Time: 17:22 EDMS 10/26 17:36 Order name: CBC Smear Scan; Complete Time: 18:22 EDMS 10/26 17:44 Order name: Hepatic Function; Complete Time: 15:33 kb 10/26 17:44 Order name: Lipase; Complete Time: 15:33 kb 10/26 17:59 Order name: COVID-19 : Document "Date of Symptom Onset" if Symptomatic. kb 10/26 18:10 Order name: Urine Dipstick-Ancillary EDMS 10/26 19:52 Order name: Glucose, Ancillary Testing; Complete Time: 19:54 EDMS 10/26 20:18 Order name: SARS-COV-2 RT PCR; Complete Time: 15:33 EDMS 10/26 20:46 Order name: Amylase; Complete Time: 15:33 EDMS 10/26 21:05 Order name: Hemoglobin A1c; Complete Time: 15:33 EDMS 10/26 21:09 Order name: T4 Free; Complete Time: 15:33 EDMS 10/26 21:09 Order name: Thyroid Stimulating Hormone; Complete Time: 15:33 EDMS 10/26 21:28 Order name: Glucose, Ancillary Testing; Complete Time: 15:33 EDMS 10/26 21:57 Order name: Glucose, Ancillary Testing; Complete Time: 15:33 EDMS 10/26 22:12 Order name: Basic Metabolic Panel; Complete Time: 15:33 EDMS 10/26 22:15 Order name: Acetone Level; Complete Time: 15:33 EDMS 05 00:27 Order name: Glucose, Ancillary Testing; Complete Time: 15:33 EDMS 10/27 01:32 Order name: Glucose, Ancillary Testing; Complete Time: 15:33 EDMS 10/27 01:33 Order name: Glucose, Ancillary Testing; Complete Time: 15:33 EDMS 10/27 02:21 Order name: Glucose, Ancillary Testing; Complete Time: 15:33 EDMS 10/27 03:33 Order name: Glucose, Ancillary Testing; Complete Time: 15:33 EDMS 10/27 04:15 Order name: Glucose, Ancillary Testing; Complete Time: 15:33 EDMS 10/27 04:53 Order name: Glucose, Ancillary Testing; Complete Time: 15:33 EDMS 07/05 05:22 Order name: Glucose, Ancillary Testing; Complete Time: 15:33 EDMS 10/27 06:17 Order name: Glucose, Ancillary Testing; Complete Time: 15:33 EDMS 10/27 06:46 Order name: Blood Culture EDMS 10/27 06:50 Order name: CBC with Automated Diff; Complete Time: 15:33 EDMS 10/26 17:07 Order name: EKG; Complete Time: 17:08 kb 10/26 17:07 Order name: EKG - Nurse/Tech; Complete Time: 17:42 kb 10/26 17:07 Order name: Urine Dipstick-Ancillary (obtain specimen); Complete Time: 18:05 kb 10/26 17:07 Order name: IV Start; Complete Time: 17:12 kb 10/26 21:44 Order name: RAD; Complete Time: 15:33 EDMS 10/27 07:12 Order name: Glucose, Ancillary Testing; Complete Time: 15:33 EDMS 10/27 07:30 Order name: Basic Metabolic Panel; Complete Time: 15:33 EDMS 10/27 07:30 Order name: Phosphorus; Complete Time: 15:33 EDMS 10/27 07:30 Order name: Magnesium; Complete Time: 15:33 EDMS 10/27 07:30 Order name: Comprehensive Metabolic Panel; Complete Time: 15:33 EDMS 10/27 07:30 Order name: Lipid Profile; Complete Time: 15:33 EDMS 10/27 07:30 Order name: Amylase; Complete Time: 15:33 EDMS 10/27 07:30 Order name: Lipase; Complete Time: 15:33 EDMS 10/27 08:16 Order name: Glucose, Ancillary Testing; Complete Time: 15:33 EDMS 10/27 09:30 Order name: Glucose, Ancillary Testing; Complete Time: 15:33 EDMS 10/27 10:19 Order name: Glucose, Ancillary Testing; Complete Time: 15:33 EDMS 10/27 11:13 Order name: Glucose, Ancillary Testing; Complete Time: 15:33 EDMS 10/27 11:32 Order name: CT EDMS EC:41 Rate is 130 beats/min. Rhythm is regular. QRS [place] is Normal. [place] interval is normal at kb 144 msec. QRS interval is normal at 102 msec. QT interval is normal at 294 msec. Administered Medications: 17:11 Drug: NS 0.9% 1000 ml Route: IV; Rate: 1000 ml; Site: left wrist; zb 17:12 Drug: Zofran (Ondansetron) 4 mg Route: IVP; Site: left wrist; zb 18:05 Follow up: Response: No adverse reaction; Marked relief of symptoms; Nausea is decreasedzb 18:04 Drug: morphine 4 mg {Note: RASS +2.} Route: IVP; Site: left wrist; zb 20:04 Follow up: Response: No adverse reaction; Marked relief of symptoms; RASS: Alert and zb Calm (0) 18:04 Drug: Phenergan (promethazine) 6.25 mg Route: IVP; Site: left wrist; zb 20:05 Follow up: Response: Nausea is decreased zb 18:18 Drug: NS 0.9% 1000 ml Route: IV; Rate: 1000 ml; Site: left wrist; zb 20:05 Follow up: Response: No adverse reaction; IV Status: Completed infusion; IV Intake: zb 1000ml 18:33 Drug: Insulin Drip - (Insulin Regular Human 100 units, NS 0.9% 100 ml) {Co-Signature: maría quijano (Buffy Greene RN).} Route: IV; Rate: calculated rate; Site: left wrist; 20:05 Follow up: IV Status: Infusion continued upon admission zb Disposition Summary: 10/26/20 18:10 Hospitalization Ordered Hospitalization Status: Inpatient Admission kb Provider: Nahun Esteves Condition: Fair kb Problem: new kb Symptoms: are unchanged kb Bed/Room Type: Standard kb Location: Telemetry/MedSurg (Inpatient)(10/27/20 16:16) Room Assignment: 209(10/27/20 16:16) bd Diagnosis - Diabetes mellitus due to underlying condition with ketoacidosis without coma kb Forms: - Medication Reconciliation Form kb - SBAR form kb Addendum: 10/28/2020 18:46 Co-signature as Attending Physician, Javier Anne MD I agree with the assessment and c dc plan of care. Signatures: Dispatcher [employer] EDMS Sasha Harkins FNP-C FNP-Yesika Ortega Martha, RN RN mw Anderson, Corey, MD MD cha Lewis, Lynsay, RN RN ll1 Alexandra Doyle RN RN zb Buffy Greene RN kg Corrections: (The following items were deleted from the chart) 10/26 19:14 18:10 Intensive Care Unit kb mw 19:14 18:10 kb mw 10/27 16:16 10/26 19:14 [facility] ER [facility] mw bd 10/27 16:16 10/26 19:14 [facility]
--- NOTE | 2020-10-26 18:10 | ER ---
Nurse's Notes [facility] Name: Roya Anne Age: 50 yrs Sex: Female : 1970 Arrival Date: 10/26/2020 Time: 16:47 Bed 14 Private MD: Diagnosis: Diabetes mellitus due to underlying condition with ketoacidosis without coma Presentation: 10/26 16:48 Chief complaint: Patient states: Epigastric pain for 2 weeks, N/V for 2 days. No fever. ll1 Coronavirus screen: Client denies travel out of the [place] in the last 14 days. At this time, the client does not indicate any symptoms associated with coronavirus-19. Ebola Screen: Patient denies travel to an Ebola-affected area in the 21 days before illness onset. Initial Sepsis Screen: Does the patient have a suspected source of infection? Yes: Acute abdominal pain. Risk Assessment: Do you want to hurt yourself or someone else? Patient reports no desire to harm self or others. Onset of symptoms was October 12, 2020. 16:48 Method Of Arrival: EMS: [facility] 1 16:48 Acuity: AGATA 3 ll1 19:59 Initial Sepsis Screen: Does the patient meet any 2 criteria? No. Patient's initial zb sepsis screen is negative. Triage Assessment: 16:50 General: Appears uncomfortable, Behavior is agitated, anxious, Reports fatigue for >3 zb days. Pain: Complains of pain in left upper quadrant and right upper quadrant and epigastric area and abdomen and back Pain currently is 8 out of 10 on a pain scale. Quality of pain is described as burning, aching, shooting, tender, Pain began two weeks Noted to be agitated, grimacing, guarding, moaning. Neuro: Level of Consciousness is awake, alert, obeys commands, Oriented to person, place, time, situation, Moves all extremities. Full function. Cardiovascular: Heart tones S1 S2 present Patient's skin is warm and dry. Pulses are all present. Rhythm is sinus tachycardia Chest pain is denied. Respiratory: Airway is patent Trachea midline Respiratory effort is even, unlabored, Respiratory pattern is regular, symmetrical, Breath sounds are clear bilaterally. GI: Abdomen is flat, Stools are reported to be normal. Bowel sounds present X 4 quads. Reports lower abdominal pain, upper abdominal pain, intolerance of fluids, intolerance of food, nausea, vomiting. : Urine is clear. Derm: Skin Skin is dry, Skin is normal. Musculoskeletal: Circulation, motion, and sensation intact. Range of motion: intact in all extremities. Historical: - Allergies: 16:49 No Known Allergies; ll1 - PMHx: 16:49 Bipolar disorder; Diabetes - IDDM; Hypertension; neuropathy; Pancreatitis; ll1 Schizophrenia; Anemia; Hypothyroidism; "stomach CA cells"; - Immunization history:: Flu vaccine is not up to date. - Social history:: Smoking status: Patient denies any tobacco usage or history of. Screenin:50 Abuse screen: Denies threats or abuse. Denies injuries from another. Nutritional zb screening: No deficits noted. Tuberculosis screening: No symptoms or risk factors identified. Fall Risk None identified. Assessment: 17:02 General: Appears uncomfortable, Behavior is anxious, Reports chills for. Pain: zb Complains of pain in back and abdomen Pain radiates to back Pain currently is 8 out of 10 on a pain scale. Quality of pain is described as burning, squeezing, Pain began "a couple of days ". Neuro: Level of Consciousness is awake, alert, obeys commands, Oriented to person, place, time, situation. Cardiovascular: Heart tones S1 S2 present Patient's skin is warm and dry. Respiratory: Airway is patent Respiratory effort is even, unlabored, Respiratory pattern is regular, symmetrical, Breath sounds are clear bilaterally. GI: Abdomen is round Bowel sounds present X 4 quads. Abdomen is tender to palpation X 4 quads. Reports nausea, vomiting. Derm: Skin is intact, is healthy with good turgor, Skin is dry, Skin is normal, Skin temperature is warm. Musculoskeletal: Range of motion: intact in all extremities. 18:38 Reassessment: Patient appears in no apparent distress at this time. Patient and/or zb family updated on plan of care and expected duration. Pain level reassessed. Patient is alert, oriented x 3, equal unlabored respirations, skin warm/dry/pink. pain decreased. IV fluids and insulin hooked up to patient. no c/o at this time. notified pt that she is NPO. PVU. 19:54 Reassessment:. maría 10/27 17:27 Reassessment: ADMIT COMPLETE, REPORT TO CHRISTIAN WHITEHEAD FOR 209. bp Vital Signs: 10/26 16:48 Weight 66.22 kg; Height 5 ft. 2 in. (157.48 cm); ll1 16:49 BP 147 / 90; Pulse 130; Resp 20; Temp 98.2(O); Pulse Ox 96% ; Weight 64.41 kg; Height 5 zb ft. 2 in. (157.48 cm); Pain 8/10; 18:39 BP 143 / 72; Pulse 120; Resp 20; Pulse Ox 98% on R/A; zb 16:49 Body Mass Index 25.97 (64.41 kg, 157.48 cm) zb ED Course: 16:47 Patient arrived in ED. ds1 16:49 Triage completed. ll1 16:49 Alexandra Doyle RN is Primary Nurse. zb 16:49 Arm band placed on Patient placed in an exam room, on a stretcher. ll1 16:51 Maintain EMS IV. Dressing intact. Good blood return noted. Site clean \\T\\ dry. Gauge \\T\\ zb site: L wrist 22G . 17:04 Patient has correct armband on for positive identification. Pulse ox on. NIBP on. Door zb closed. Noise minimized. 17:06 [facility]C [facility] kb 17:06 Javier Anne MD is Attending Physician. kb 18:09 Nahun Esteves is Hospitalizing Provider. kb 20:06 No provider procedures requiring assistance completed. Patient admitted, IV remains in zb place. 07 07:37 Primary Nurse role handed off by Alexandra Doyle RN bp 07:37 Clifford Quintanilla RN is Primary Nurse. bp Administered Medications: 10/26 17:11 Drug: NS 0.9% 1000 ml Route: IV; Rate: 1000 ml; Site: left wrist; zb 17:12 Drug: Zofran (Ondansetron) 4 mg Route: IVP; Site: left wrist; zb 18:05 Follow up: Response: No adverse reaction; Marked relief of symptoms; Nausea is decreasedzb 18:04 Drug: morphine 4 mg {Note: RASS +2.} Route: IVP; Site: left wrist; zb 20:04 Follow up: Response: No adverse reaction; Marked relief of symptoms; RASS: Alert and zb Calm (0) 18:04 Drug: Phenergan (promethazine) 6.25 mg Route: IVP; Site: left wrist; zb 20:05 Follow up: Response: Nausea is decreased zb 18:18 Drug: NS 0.9% 1000 ml Route: IV; Rate: 1000 ml; Site: left wrist; zb 20:05 Follow up: Response: No adverse reaction; IV Status: Completed infusion; IV Intake: zb 1000ml 18:33 Drug: Insulin Drip - (Insulin Regular Human 100 units, NS 0.9% 100 ml) {Co-Signature: maría kg (Buffy Greene RN).} Route: IV; Rate: calculated rate; Site: left wrist; 20:05 Follow up: IV Status: Infusion continued upon admission zb Intake: 20:05 IV: 1000ml; Total: 1000ml. zb Outcome: 18:10 Decision to Hospitalize by Provider. kb 20:05 Admitted to ER Hold. Please see [facility] for further documentation. zb 20:05 Condition: stable 20:05 Instructed on the need for admit. 07 17:28 Patient left the ED. bp Signatures: Sasha Harkins, DIRECTOR MUSEUM OR ZOO-C DIRECTOR MUSEUM OR ZOO-Ckb Reyna Real ds1 Clifford Quintanilla RN RN bp Stef Vega, CHARLEY RN ll1 Alexandra Doyle RN RN zb Buffy Greene RN kg Corrections: (The following items were deleted from the chart) 10/26 18:38 16:50 Pain: Complains of pain in left upper quadrant and right upper quadrant and zb epigastric area and abdomen and back Pain currently is 9 out of 10 on a pain scale. Quality of pain is described as burning, aching, shooting, tender, Pain began two weeks Noted to be agitated, grimacing, guarding, moaning, zb
[2020-10-26 18:19] LABS: Blood Morphology Comment NOT SEEN (NOT SEEN); Platelet Estimate ADEQ; White Blood Cell Scan OK (OK)
[2020-10-26] MEDS ORDERED: INSULIN -REGULAR HUMAN 50 UNIT/0.5 ML ML ONE (18:35)
[2020-10-26] MEDS ORDERED: NA CHLORIDE 0.9% 100 ML ONE (18:36)
[2020-10-26] MEDS ORDERED: INSULIN -REGULAR HUMAN 100 UNIT in NA CHLORIDE 0.9% 100 ML IV SCH (19:26)
[2020-10-26] MEDS ORDERED: ACETAMINOPHEN 500 MG TAB PO PRN (19:26)
[2020-10-26] MEDS: D5.45NS W/KCL 20MEQ 1,000 ML IV SCH ×2 (19:26→23:30)
[2020-10-26] MEDS: NACHLORIDE 0.45% 1,000 ML with POTASSIUM CL 20 MEQ IV SCH ×4 (19:26→23:29)
--- NOTE | 2020-10-26 19:44 | P.HP ---
Certification for Inpatient Patient admitted to: Inpatient With expected LOS: <2 Midnights Patient will require the following post-hospital care: None Practitioner: I am a practitioner with admitting privileges, knowledge of patient current condition, hospital course, and medical plan of care. Services: Services provided to patient in accordance with Admission requirements found in Title 42 Section 412.3 of the Code of Federal Regulations Patient History Date of Service: 10/26/20 Reason for admission: DKA History of Present Illness: Ms. Anne is a 50 yo F with DM, bipolar disorder, schizophrenia, hypothyroidism, HTN here today for 2 weeks of epigasetric abdominal pain radiating to the back as well as nausea, vomiting, and diarrhea. She says she stopped eating and drinking a few days ago, but her blood sugar has still been high. She report dizziness and diarrhea. Denies melena, constipation. BG found to be 654, and AGMA with a gap of 17. Believes her symptoms are being manifested by her psychiatric diagnosis. WBC 12.5, Neut 92.5%. Na 129, K 4.8, Cl 95, CO3 17. BUN 27, GFR 52. Urinalysis wnl. CXR pending. Allergies No Known Allergies Allergy (Verified 03/29/17 16:06) Home Medications: Albuterol Sulfate [Proair Hfa] 1 puff IN QID 01/20/18 Dexlansoprazole [Dexilant] 60 mg PO DAILY 01/20/18 Linaclotide [Linzess] 290 mcg PO DAILY 01/20/18 Ondansetron HCl [Zofran] 4 mg PO BID 01/20/18 Pregabalin [Lyrica*] 150 mg PO BID 01/20/18 Budesonide/Formoterol Fumarate [Symbicort 160-4.5 Mcg Inhaler] 2 puff IH BID 04/10/19 Dicyclomine [Bentyl*] 20 mg PO BID 04/10/19 Insulin Glargine,Hum.rec.anlog [Ray Taylorostmarko] 30 units SQ BEDTIME 04/10/19 Ferrous Sulfate [Ferrous Sulfate*] 325 mg PO TID #90 tab 04/13/19 Tramadol HCl [Ultram] 50 mg PO TID PRN #15 tablet 04/13/19 Medroxyprogester [Depo Provera*] 1 unit SQ Q90D 01/31/20 Codeine/APAP [Tylenol #3*] 1 tab PO BID tab 02/01/20 Docusate [Colace Cap*] 100 mg PO BID cap 02/01/20 Insulin -Regular Human [Novolin -R*] See Protocol SQ ACHS ml 02/01/20 Nitrofurantoin Monohyd/M-Cryst [Nitrofurantoin [place]-Mcr 100 mg] 100 mg PO BID #6 capsule 02/01/20 Quetiapine [Seroquel*] 300 mg PO BID tab 02/01/20 Zolpidem Tartrate [Ambien*] 5 mg PO BEDTIME PRN PRN tablet 02/01/20 methocarbamoL [Robaxin*] 500 mg PO BID tab 02/01/20 - Past Medical/Surgical History Diabetic: Yes -: Bipolar Disorder -: Schizophrenia -: IDDM - gestational DM after at 11yo -: Hyperlipidemia -: neuropathy -: 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 She does not work. She is disabled due to her mental illness. - Family History Mother -: Diabetes - Social History Smoking Status: Former smoker Alcohol use: No CD- Drugs: No Caffeine use: Yes Place of Residence: Home Review of Systems Gastrointestinal: Nausea, Vomiting, Abdominal Pain, Diarrhea Musculoskeletal: Back Pain Physical Examination - Physical Exam General: Alert, In no apparent distress, Oriented x3, Cooperative HEENT: Atraumatic, PERRLA, Mucous membr. moist/pink, EOMI, Sclerae nonicteric Neck: Supple, 2+ carotid pulse no bruit, No LAD, Without JVD or thyroid abnormality Respiratory: Clear to auscultation bilaterally, Normal air movement Cardiovascular: Regular rate/rhythm, Normal S1 S2 Gastrointestinal: Normal bowel sounds, Soft and benign, Non-distended, No ascites, No masses, No rebound, No guarding, Tenderness Musculoskeletal: No tenderness Integumentary: No rashes Neurological: Normal gait, Normal speech, Normal strength at 5/5 x4 extr, Normal tone, Abnormal affect Lymphatics: No axilla or inguinal lymphadenopathy - Studies Laboratory Data (last 24 hrs) 10/26/20 17:01: Sodium 129 L, Potassium 4.8, BUN 27 H, Creatinine 1.11, Glucose 654 H* 10/26/20 17:01: WBC 12.50 H, Hgb 12.8, Hct 38.5, Plt Count 243 Assessment and Plan - Problems (Diagnosis) (1) Hyperosmolar non-ketotic state in patient with type 2 diabetes mellitus Onset Date: 03/14/17 Current Visit: No Status: Acute (2) Metabolic acidosis Onset Date: 03/14/17 Current Visit: No Status: Acute (3) Bipolar disorder Onset Date: 03/14/17 Current Visit: No Status: Chronic Qualifiers: Active/Remission status: remission status unspecified Qualified Code(s): F31.9 - Bipolar disorder, unspecified (4) Insulin dependent diabetes mellitus Onset Date: 11/04/16 Current Visit: No Status: Chronic (5) Schizophrenia Onset Date: 03/14/17 Current Visit: No Status: Chronic Qualifiers: Schizophrenia type: unspecified - Plan admit to ICU continue aggressive IVF hydration and insulin drip BG checks q1hr, BMP and acetone levels q4hr, monitor AG and K+levels NPO until gap is closed CXR pending, UDS pending blood cultures pending, A1c pending, TSH/T4 pending O2 PRN, pain management as needed dietitian and elementary educator consulted DVT ppx Discharge Plan: Home Plan to discharge in: 48 Hours - Advance Directives Does patient have a Living Will: No Does patient have a Durable POA for Healthcare: No - Code Status/Comfort Care Code Status Assessed: Yes (full code ) Critical Care: Yes Time Spent Managing Pts Care (In Minutes): 70
[2020-10-26] MEDS ORDERED: MORPHINE 2 MG/ML SYR ONE ×2 (19:56→23:24)
[2020-10-26] MEDS: MORPHINE 2 MG/ML SYR IV PRN ×2 (19:58→23:09)
[2020-10-26 21:09] LABS: Thyroid Stimulating Hormone 0.006 uIU/mL (0.360-3.740)
[2020-10-26 21:11] LABS: ALT/SGPT 43 U/L (12-78); AST/SGOT 27 U/L (15-37); Albumin 4.2 g/dL (3.4-5.0); Alkaline Phosphatase 140 U/L (45-117); Bilirubin Direct < 0.1 mg/dL (0-0.2); Bilirubin Total 0.5 mg/dL (0.2-1.0); Lipase 1019 U/L (73-393); Protein, Total 8.5 g/dL (6.4-8.2)
[2020-10-26] MEDS ORDERED: D5.45NS W/KCL 20MEQ 1,000 ML IV ONE (21:44)
--- NOTE | 2020-10-26 21:44 | RAD REPORT ---
EXAM DESCRIPTION: RAD - Chest Single View - 10/26/2020 9:07 pm CLINICAL HISTORY: SOB COMPARISON: Portable May 2019 TECHNIQUE: AP portable chest image was obtained 10/26/2020 9:07 pm . FINDINGS: Lung volumes are low. No peripheral mass or consolidation. Heart and vasculature are katherine l. No measurable pleural effusion and no pneumothorax. No acute bony abnormality seen. No acute aorti c findings suspected. IMPRESSION: No acute cardiopulmonary process.
[2020-10-26] MEDS ORDERED: INSULIN GLARGINE 100 UNITS/ML SQ SCH (22:00)
[2020-10-26 22:09] LABS: BUN Blood Urea Nitrogen 22 mg/dL (7-18); Bicarbonate 24 mmol/L (21-32); Glucose Level 255 mg/dL (74-106); Potassium 4.2 mmol/L (3.5-5.1); Sodium Level 138 mmol/L (136-145)
[2020-10-26] MEDS: ONDANSETRON 4 MG/2 ML VIAL IV PRN (22:31)
[2020-10-26] MEDS ORDERED: METOCLOPRAMIDE 10 MG/2mL INJ IV PRN (22:59)
[2020-10-26] MEDS: NS KCL 20MEQ 1,000 ML IV SCH (23:00)
[2020-10-27] MEDS ORDERED: SODIUM CHLORIDE 0.9% 10ML INJ IV PRN (01:27)
[2020-10-27] MEDS: PANTOPRAZOLE 40 MG INJ IVP SCH ×3 (01:27→20:28)
[2020-10-27] MEDS ORDERED: ONDANSETRON 4 MG/2 ML VIAL ONE ×2 (01:39→08:16)
[2020-10-27] MEDS: D5.45NS W/KCL 20MEQ 1,000 ML IV SCH ×2 (02:06→08:46)
[2020-10-27] MEDS: QUETIAPINE 100MG TAB PO SCH ×3 (02:24→20:28)
[2020-10-27] MEDS ORDERED: PANTOPRAZOLE 40 MG INJ ONE ×2 (02:40→09:33)
[2020-10-27] MEDS: NS KCL 20MEQ 1,000 ML IV SCH ×3 (03:00→11:00)
[2020-10-27] MEDS: ZOLPIDEM TARTRATE 5 MG TABLET PO PRN ×2 (03:26→22:56)
[2020-10-27] MEDS: NACHLORIDE 0.45% 1,000 ML with POTASSIUM CL 20 MEQ IV SCH ×6 (03:32→11:38)
[2020-10-27] MEDS ORDERED: ZOLPIDEM TARTRATE 5 MG TABLET ONE (03:46)
[2020-10-27] MEDS ORDERED: QUETIAPINE 100MG TAB ONE (03:56)
[2020-10-27] MEDS ORDERED: GLUCAGON 1 MG/VIAL IM PRN (04:43)
[2020-10-27] MEDS ORDERED: D50W 25 GM/50 ML SYRINGE IV PRN (04:43)
[2020-10-27] MEDS ORDERED: D5.45NS W/KCL 20MEQ 1,000 ML IV ONE ×2 (05:07→09:33)
[2020-10-27 06:49] LABS: Absolute Lymphocytes (CBC) 1.5 K/uL (0.7-4.9); Basophils % 0.5 % (0-1.3); Hematocrit 33.4 % (36.0-45.0); Lymphocytes % 18.7 % (15.3-44.8); MPV 9.7 fL (7.6-11.3); RBC Red Blood Cell Count 3.58 M/uL (3.86-4.86)
[2020-10-27 07:06] LABS: BUN Blood Urea Nitrogen 14 mg/dL (7-18); Bicarbonate 21 mmol/L (21-32); Glucose Level 284 mg/dL (74-106); Magnesium 1.9 mg/dL (1.8-2.4); Phosphorus 2.2 mg/dL (2.5-4.9); Potassium 4.3 mmol/L (3.5-5.1); Sodium Level 135 mmol/L (136-145)
[2020-10-27 07:12] LABS: ALT/SGPT 31 U/L (12-78); AST/SGOT 20 U/L (15-37); Albumin 3.5 g/dL (3.4-5.0); Alkaline Phosphatase 116 U/L (45-117); Amylase 106 U/L (25-115); BUN Blood Urea Nitrogen 13 mg/dL (7-18); Bicarbonate 20 mmol/L (21-32); Bilirubin Total 0.4 mg/dL (0.2-1.0); Glucose Level 290 mg/dL (74-106); HDL Cholesterol 37 mg/dL (40-60); LDL Cholesterol, Calculated 90 (<130); Lipase 961 U/L (73-393); Potassium 4.3 mmol/L (3.5-5.1); Sodium Level 135 mmol/L (136-145)
[2020-10-27] MEDS: INSULIN -REGULAR HUMAN 50 UNIT/0.5 ML ML SQ SCH ×7 (07:30→20:26)
[2020-10-27] MEDS: ONDANSETRON 4 MG/2 ML VIAL IV PRN (07:45)
[2020-10-27] MEDS: MORPHINE 2 MG/ML SYR IV PRN ×3 (08:00→20:20)
[2020-10-27] MEDS ORDERED: MORPHINE 2 MG/ML SYR ONE ×2 (08:16→16:30)
[2020-10-27] MEDS: ENOXAPARIN 40 MG/0.4 ML SQ SCH (09:00)
[2020-10-27] MEDS ORDERED: PROMETHAZINE INJ 25 MG/ML AMP IV ONE (09:32)
[2020-10-27] MEDS ORDERED: ENOXAPARIN 40 MG/0.4 ML SQ ONE (09:33)
[2020-10-27] MEDS ORDERED: PROMETHAZINE INJ 25 MG/ML AMP ONE ×2 (09:33→16:30)
--- NOTE | 2020-10-27 10:30 | EKG ---
Test Date: 2020-10-26 Test Time: 17:36:11 Valving Machine Operator: AMINA MEASUREMENT RESULTS: Intervals: Rate: 130 OK: 144 QRSD: 102 QT: 294 QTc: 432 [place]: P: 76 OK: 144 QRS: 87 T: 19 INTERPRETIVE STATEMENTS: Sinus tachycardia Nonspecific T wave abnormality Abnormal ECG Compared to ECG 01/31/2020 17:33:50 T-wave abnormality now present Electronically Signed On 10-27-20 10:28:41 CDT by Edmund Melendez
[2020-10-27] MEDS ORDERED: NACHLORIDE 0.45% 1,000 ML IV ONE (11:18)
--- NOTE | 2020-10-27 11:31 | RAD REPORT ---
EXAM DESCRIPTION: CT - Abdomen Pelvis W/Wo Contrast - 10/26/2020 11:23 pm CLINICAL HISTORY: Abdominal pain. COMPARISON: CT of the abdomen/pelvis from January 31, 2020. TECHNIQUE: Serial axial CT images were obtained from above the diaphragm through the pubic symphysis without administration of intravenous or oral contrast. All CT scans are performed using dose optimization techniques as appropriate, including automated exp osure control and/or standardized protocols, where dose is adjusted for indication for exam and body habitus. FINDINGS: Thoracic: No significant abnormality. Hepatobiliary: Diffuse hepatic steatosis. Hepatomegaly, measuring 20.5 cm in length. No obvious jose rning hepatic lesion identified in the absence of intravenous contrast. The gallbladder is unremarkab le. No biliary ductal dilatation. Pancreas: Trace fat stranding about the pancreas. No dilation of the main pancreatic duct. No peripan creatic fluid collections. Spleen: Unremarkable. Gastrointestinal: No evidence of bowel obstruction or perienteric inflammation. The appendix is katherine l. Small to moderate amount of fecal material throughout the colon. Adrenals: No abnormality identified in either adrenal gland. Renal: No obvious parenchymal abnormality in either kidney in the absence of intravenous contrast. No hydronephrosis or urolithiasis. Bladder/Reproductive: Grossly unremarkable appearance of the underdistended urinary bladder by CT dixie hnique. Nonspecific small amount of gas within the endocervical canal in the lower endometrial cavity . Vascular/Lymphatics: No lymphadenopathy identified by CT size criteria. Abdominal aorta is normal in caliber. Mild calcific atherosclerosis. Musculoskeletal: No concerning osseous lesion identified. Fluid / peritoneum: Trace free fluid in the pelvis. No free intraperitoneal air identified. IMPRESSION: 1. Findings suggestive of mild acute interstitial pancreatitis. No peripancreatic flui d collections. 2. Hepatomegaly and hepatic steatosis. 3. Nonspecific small amount of gas within the endocervical canal in the lower endometrial cavity. C orrelate for recent instrumentation or infection. 4. Trace free fluid in the pelvis. Electronically signed by: Randee Lynch MD 10/26/2020 11:00 PM CDT Due to temporary technical issues with the PACS/Fluency reporting system, reports are being signed by the in house radiologist without review as a courtesy to ensure prompt reporting. The interpreting r adiologist is fully responsible for the content of the report.
[2020-10-27] MEDS: INSULIN GLARGINE 100 UNITS/ML SQ SCH ×2 (12:33→20:26)
[2020-10-27] MEDS: NA CHLORIDE 0.9% 1,000 ML IV SCH ×2 (13:00→18:21)
[2020-10-27] MEDS ORDERED: INSULIN GLARGINE 100 UNITS/ML SQ ONE (13:53)
[2020-10-27] MEDS ORDERED: INSULIN -REGULAR HUMAN 50 UNIT/0.5 ML ML ONE (13:54)
[2020-10-27] MEDS: PROMETHAZINE INJ 25 MG/ML AMP IV PRN ×2 (16:00→20:21)
--- NOTE | 2020-10-27 18:09 | P.PN ---
Subjective Date of Service: 10/27/20 Chief Complaint: DKA Anion gap closed. Patient transitions from insulin drip to sliding scale and Lantus. She is complaining of abdominal pain and nausea. No vomiting. She has tolerated liquid diet. Physical Examination - Vital Signs Temperature: 97.8 F Blood Pressure: 113/71 Pulse: 105 Respirations: 15 Pulse Ox (%): 99 - Physical Exam General: Alert, In no apparent distress, Oriented x3 HEENT: Mucous membr. moist/pink Neck: JVD not distended Respiratory: Clear to auscultation bilaterally, Normal air movement Cardiovascular: No edema, Regular rate/rhythm, Normal S1 S2 Gastrointestinal: Normal bowel sounds, Soft and benign, Non-distended, No tenderness Musculoskeletal: No swelling Integumentary: No rashes Neurological: Normal strength at 5/5 x4 extr - Studies Laboratory Data (last 24 hrs) 10/26/20 06:55: Amylase 133 H 10/26/20 06:55: Total Bilirubin 0.5, AST 27, ALT 43, Alkaline Phosphatase 140 H, Lipase 1019 H Assessment And Plan - Current Problems (Diagnosis) (1) DKA (diabetic ketoacidosis) Current Visit: Yes Status: Acute (2) Bipolar disorder Onset Date: 03/14/17 Current Visit: No Status: Chronic Qualifiers: Active/Remission status: remission status unspecified Qualified Code(s): F31.9 - Bipolar disorder, unspecified (3) Gastroparesis Current Visit: No Status: Chronic (4) Schizophrenia Onset Date: 03/14/17 Current Visit: No Status: Chronic Qualifiers: Schizophrenia type: unspecified - Plan Off insulin drip. Manage blood sugar with insulin sliding scale and Lantus insulin. Continue IV hydration Antiemetics p.r.n. Advanced diet as tolerated. Continue psych medications.
[2020-10-27 21:39] VITALS: BMI 26.3
[2020-10-28] MEDS: MORPHINE 2 MG/ML SYR IV PRN ×5 (00:50→22:36)
[2020-10-28] MEDS: ONDANSETRON 4 MG/2 ML VIAL IV PRN ×3 (00:50→18:28)
[2020-10-28] MEDS: NA CHLORIDE 0.9% 1,000 ML IV SCH ×4 (01:57→13:00)
[2020-10-28] MEDS: PROMETHAZINE INJ 25 MG/ML AMP IV PRN ×3 (04:02→21:22)
[2020-10-28 05:47] LABS: Absolute Lymphocytes (CBC) 2.1 K/uL (0.7-4.9); Basophils % 0.7 % (0-1.3); Hematocrit 36.7 % (36.0-45.0); Lymphocytes % 33.1 % (15.3-44.8); MPV 9.4 fL (7.6-11.3); RBC Red Blood Cell Count 3.93 M/uL (3.86-4.86)
[2020-10-28 06:01] LABS: ALT/SGPT 38 U/L (12-78); AST/SGOT 34 U/L (15-37); Albumin 3.6 g/dL (3.4-5.0); Alkaline Phosphatase 114 U/L (45-117); BUN Blood Urea Nitrogen 9 mg/dL (7-18); Bicarbonate 24 mmol/L (21-32); Bilirubin Direct < 0.1 mg/dL (0-0.2); Bilirubin Total 0.4 mg/dL (0.2-1.0); Glucose Level 156 mg/dL (74-106); Lipase 359 U/L (73-393); Phosphorus 2.7 mg/dL (2.5-4.9); Potassium 3.8 mmol/L (3.5-5.1); Protein, Total 7.5 g/dL (6.4-8.2); Sodium Level 139 mmol/L (136-145)
[2020-10-28] MEDS: INSULIN -REGULAR HUMAN 50 UNIT/0.5 ML ML SQ SCH ×7 (07:30→21:00)
[2020-10-28] MEDS: ENOXAPARIN 40 MG/0.4 ML SQ SCH (08:35)
[2020-10-28] MEDS: PANTOPRAZOLE 40 MG INJ IVP SCH ×2 (08:35→21:22)
[2020-10-28] MEDS: QUETIAPINE 100MG TAB PO SCH ×2 (08:37→21:23)
--- NOTE | 2020-10-28 09:38 | P.PN ---
Subjective Date of Service: 10/28/20 Chief Complaint: DKA Subjective: No new changes (continues with mod-severe epigastric pain, associated with nausea, having sips with meds - does not worsen pain, hasn't had much to drink yet. no BM in a few days, +flatus) Review of Systems 10-point ROS is otherwise unremarkable Physical Examination - Vital Signs Temperature: 97.4 F Blood Pressure: 133/91 Pulse: 123 Respirations: 16 Pulse Ox (%): 99 Assessment & Plan Physician Review Additional Text: Physical Exam General: Alert, mild distress / in pain, Oriented x3 HEENT: Mucous membr. moist/pink, normal conjunctiva Respiratory: Clear to auscultation bilaterally, Normal air movement Cardiovascular: No edema, Regular rate/rhythm, Normal S1 S2 Gastrointestinal: soft, non-distended, moderate TTP in epigastrium Integumentary: No rashes Problem List DKA, resolved acute Pancreatitis IDDM2 Bipolar disorder Gastroparesis Schizophrenia h/o pancreatitis -DKA appears to be resolved, likely exacerbated by pancreatitis -glc managed with SSI, lantus -continue IVF, CLD, slowly advance as tolerated -pain control, anti-emetics PRN -continue home psych medications -lipase much improved -continues with significant pain Diet: CLD Code: full VTE: lovenox Dispo: anticipate dc home in 24-48hrs, needs pain improved and tolerating diet Time Spent Managing Pts Care (In Minutes): 45
[2020-10-28] MEDS ORDERED: MORPHINE 4 MG/ML SYR IV PRN (10:07)
[2020-10-28 13:24] LABS: Barbiturates NEGATIVE (NEGATIVE); Benzodiazepines NEGATIVE (NEGATIVE); Cocaine NEGATIVE (NEGATIVE); METHAMPHETAM NEGATIVE (NEGATIVE); Methadone NEGATIVE (NEGATIVE); Opiates NEGATIVE (NEGATIVE); Phencyclidine NEGATIVE (NEGATIVE); THC Cannibis NEGATIVE (NEGATIVE)
[2020-10-28] MEDS: INSULIN GLARGINE 100 UNITS/ML SQ SCH (21:00)
[2020-10-28] MEDS: ZOLPIDEM TARTRATE 5 MG TABLET PO PRN (22:36)
[2020-10-29] MEDS: MORPHINE 2 MG/ML SYR IV PRN ×5 (02:58→22:43)
[2020-10-29] MEDS: ONDANSETRON 4 MG/2 ML VIAL IV PRN ×3 (02:58→20:48)
[2020-10-29 05:37] LABS: Absolute Lymphocytes (CBC) 1.6 K/uL (0.7-4.9); Hematocrit 36.2 % (36.0-45.0); Lymphocytes % 28.4 % (15.3-44.8); MPV 9.5 fL (7.6-11.3); RBC Red Blood Cell Count 3.84 M/uL (3.86-4.86)
[2020-10-29 06:13] LABS: Albumin 3.7 g/dL (3.4-5.0); Bilirubin Total 0.3 mg/dL (0.2-1.0); Phosphorus 3.5 mg/dL (2.5-4.9); Potassium 3.8 mmol/L (3.5-5.1); Protein, Total 7.7 g/dL (6.4-8.2)
[2020-10-29] MEDS: ENOXAPARIN 40 MG/0.4 ML SQ SCH (08:43)
[2020-10-29] MEDS: QUETIAPINE 100MG TAB PO SCH ×2 (08:43→20:47)
[2020-10-29] MEDS: INSULIN -REGULAR HUMAN 50 UNIT/0.5 ML ML SQ SCH ×6 (08:44→20:51)
[2020-10-29] MEDS: PANTOPRAZOLE 40 MG INJ IVP SCH ×2 (08:53→20:48)
[2020-10-29] MEDS ORDERED: POTASSIUM CL SA 10 MEQ TAB PO ONE (09:00)
[2020-10-29] MEDS: PROMETHAZINE INJ 25 MG/ML AMP IV PRN ×2 (09:04→15:41)
[2020-10-29] MEDS ORDERED: INSULIN -REGULAR HUMAN 50 UNIT/0.5 ML ML SQ SCH (10:03)
[2020-10-29] MEDS ORDERED: D50W 25 GM/50 ML VIAL IV PRN (15:00)
--- NOTE | 2020-10-29 19:28 | P.PN ---
Subjective Date of Service: 10/29/20 Chief Complaint: DKA Subjective: Other (improved last night, this morning with worsening nausea and pain again) Review of Systems 10-point ROS is otherwise unremarkable Physical Examination - Vital Signs Temperature: 97.8 F Blood Pressure: 111/56 Pulse: 106 Respirations: 16 Pulse Ox (%): 96 Assessment & Plan Physician Review Additional Text: Physical Exam General: Alert, mild distress / in pain, anxious appearing HEENT: Mucous membr. moist/pink, normal conjunctiva Respiratory: Clear to auscultation bilaterally, Normal air movement Cardiovascular: No edema, Regular rate/rhythm, Normal S1 S2 Gastrointestinal: soft, non-distended, moderate TTP in epigastrium Integumentary: No rashes Problem List DKA, resolved acute Pancreatitis IDDM2 Bipolar disorder Gastroparesis Schizophrenia h/o pancreatitis -DKA appears to be resolved, likely exacerbated by pancreatitis -glc managed with SSI, lantus, patient with very labile glc -not tolerating diet, back down to full liquids -pain control, anti-emetics PRN -continue home psych medications -lipase much improved -continues with moderate pain and nausea Diet: FLD Code: full VTE: lovenox Dispo: anticipate dc home in 24-48hrs, needs pain improved and tolerating diet labile glucose, pt with hypoglycemia this morning Time Spent Managing Pts Care (In Minutes): 40
[2020-10-29] MEDS: INSULIN GLARGINE 100 UNITS/ML SQ SCH (20:50)
[2020-10-29] MEDS: ZOLPIDEM TARTRATE 5 MG TABLET PO PRN (22:42)
[2020-10-30] MEDS: PROMETHAZINE INJ 25 MG/ML AMP IV PRN (02:17)
[2020-10-30] MEDS: MORPHINE 2 MG/ML SYR IV PRN ×5 (02:18→21:12)
[2020-10-30 06:37] LABS: Albumin 3.8 g/dL (3.4-5.0); Bilirubin Total 0.3 mg/dL (0.2-1.0); Potassium 4.1 mmol/L (3.5-5.1); Protein, Total 7.8 g/dL (6.4-8.2)
[2020-10-30] MEDS: ONDANSETRON 4 MG/2 ML VIAL IV PRN (06:42)
[2020-10-30] MEDS: INSULIN -REGULAR HUMAN 50 UNIT/0.5 ML ML SQ SCH ×7 (07:30→21:00)
[2020-10-30] MEDS: PANTOPRAZOLE 40 MG INJ IVP SCH ×2 (09:00→21:08)
[2020-10-30] MEDS: ENOXAPARIN 40 MG/0.4 ML SQ SCH (09:00)
[2020-10-30] MEDS: QUETIAPINE 100MG TAB PO SCH ×2 (09:00→21:08)
[2020-10-30] MEDS ORDERED: BISACODYL 10 MG RECTAL SUPP PR ONE (09:49)
[2020-10-30] MEDS: METOCLOPRAMIDE 10 MG/2mL INJ IV PRN ×2 (11:12→21:08)
[2020-10-30] MEDS ORDERED: MINERAL OIL ENEMA 135 ML BTL PR SCH (14:00)
--- NOTE | 2020-10-30 17:14 | P.PN ---
Subjective Date of Service: 10/30/20 Chief Complaint: DKA Subjective: Other (improvement this morning, feelng much better, but with significant nausea and vomiting after breakfast - full liquids. pain is about the same.) Review of Systems 10-point ROS is otherwise unremarkable Physical Examination - Vital Signs Temperature: 97.8 F Blood Pressure: 113/62 Pulse: 107 Respirations: 18 Pulse Ox (%): 95 Assessment & Plan Physician Review Additional Text: Physical Exam General: Alert, mild distress / in pain HEENT: Mucous membr. moist/pink, normal conjunctiva Respiratory: Clear to auscultation bilaterally, Normal air movement Cardiovascular: No edema, Regular rate/rhythm, Normal S1 S2 Gastrointestinal: soft, non-distended, mild-mod TTP in epigastrium Integumentary: No rashes Problem List DKA, resolved acute Pancreatitis,resolved IDDM2 with hyperglycemia Bipolar disorder Gastroparesis Schizophrenia h/o pancreatitis -DKA appears to be resolved, likely exacerbated by pancreatitis -glc managed with SSI, Lantus, patient with very labile glc, might be eating/drinking some of SO food -not tolerating diet, back down to clears -switch to reglan -no BM in several days, suppository and enema ordered if doesn't work -continue home psych medications -lipase much improved -continues with moderate pain and nausea Diet: CLD Code: full VTE: lovenox Dispo: anticipate dc home in 24-48hrs, needs pain improved and tolerating diet. difficult to control glucose Time Spent Managing Pts Care (In Minutes): 35
[2020-10-30] MEDS: INSULIN GLARGINE 100 UNITS/ML SQ SCH (21:00)
[2020-10-30] MEDS: ZOLPIDEM TARTRATE 5 MG TABLET PO PRN (22:28)
[2020-10-31] MEDS: ONDANSETRON 4 MG/2 ML VIAL IV PRN ×2 (01:16→09:29)
[2020-10-31] MEDS: MORPHINE 2 MG/ML SYR IV PRN ×2 (01:16→05:38)
[2020-10-31 05:23] LABS: Absolute Lymphocytes (CBC) 1.8 K/uL (0.7-4.9); Basophils % 1.4 % (0-1.3); Hematocrit 35.7 % (36.0-45.0); Lymphocytes % 31.7 % (15.3-44.8); MPV 10.1 fL (7.6-11.3); RBC Red Blood Cell Count 3.77 M/uL (3.86-4.86)
[2020-10-31] MEDS: METOCLOPRAMIDE 10 MG/2mL INJ IV PRN (05:38)
[2020-10-31 05:45] LABS: Albumin 3.4 g/dL (3.4-5.0); Bilirubin Total 0.2 mg/dL (0.2-1.0); Magnesium 2.1 mg/dL (1.8-2.4); Potassium 4.2 mmol/L (3.5-5.1); Protein, Total 7.3 g/dL (6.4-8.2)
[2020-10-31 08:21] VITALS: BP 140/64; TEMP 97.1
[2020-10-31] MEDS: ENOXAPARIN 40 MG/0.4 ML SQ SCH (09:00)
[2020-10-31] MEDS: QUETIAPINE 100MG TAB PO SCH (09:00)
[2020-10-31] MEDS: INSULIN -REGULAR HUMAN 50 UNIT/0.5 ML ML SQ SCH ×2 (09:21→09:22)
[2020-10-31] MEDS: PANTOPRAZOLE 40 MG INJ IVP SCH (09:23)
[2020-10-31 13:47] VITALS: O2SAT 100
--- NOTE | 2020-10-31 21:41 | P.DS ---
Admission Date: 10/26/20 Discharge Date: 10/31/20 Disposition: ROUTINE DISCHARGE Discharge Condition: GOOD Reason for Admission: DKA Procedures: CXR (10/26): FINDINGS: Lung volumes are low. No peripheral mass or consolidation. Heart and vasculature are normal. No measurable pleural effusion and no pneumothorax. No acute bony abnormality seen. No acute aortic findings suspected. IMPRESSION: No acute cardiopulmonary process. CT Abd/pelvis (10/26): FINDINGS: Thoracic: No significant abnormality. Hepatobiliary: Diffuse hepatic steatosis. Hepatomegaly, measuring 20.5 cm in length. No obvious concerning hepatic lesion identified in the absence of intravenous contrast. The gallbladder is unremarkable. No biliary ductal dilatation. Pancreas: Trace fat stranding about the pancreas. No dilation of the main pancreatic duct. No peripancreatic fluid collections. Spleen: Unremarkable. Gastrointestinal: No evidence of bowel obstruction or perienteric inflammation. The appendix is normal. Small to moderate amount of fecal material throughout the colon. Adrenals: No abnormality identified in either adrenal gland. Renal: No obvious parenchymal abnormality in either kidney in the absence of intravenous contrast. No hydronephrosis or urolithiasis. Bladder/Reproductive: Grossly unremarkable appearance of the underdistended urinary bladder by CT technique. Nonspecific small amount of gas within the endocervical canal in the lower endometrial cavity. Vascular/Lymphatics: No lymphadenopathy identified by CT size criteria. Abdominal aorta is normal in caliber. Mild calcific atherosclerosis. Musculoskeletal: No concerning osseous lesion identified. Fluid / peritoneum: Trace free fluid in the pelvis. No free intraperitoneal air identified. IMPRESSION: 1. Findings suggestive of mild acute interstitial pancreatitis. No peripancreatic fluid collections. 2. Hepatomegaly and hepatic steatosis. 3. Nonspecific small amount of gas within the endocervical canal in the lower endometrial cavity. Correlate for recent instrumentation or infection. 4. Trace free fluid in the pelvis. Problem List DKA, resolved acute Pancreatitis,resolved IDDM with hyperglycemia Bipolar disorder Gastroparesis Schizophrenia h/o pancreatitis Brief History of Present Illness: Ms. Anne is a 50 yo F with DM, bipolar disorder, schizophrenia, hypothyroidism, HTN here today for 2 weeks of epigasetric abdominal pain radiating to the back as well as nausea, vomiting, and diarrhea. She says she stopped eating and drinking a few days ago, but her blood sugar has still been high. She report dizziness and diarrhea. Denies melena, constipation. BG found to be 654, and AGMA with a gap of 17. Believes her symptoms are being manifested by her psychiatric diagnosis. WBC 12.5, Neut 92.5%. Na 129, K 4.8, Cl 95, CO3 17. BUN 27, GFR 52. Urinalysis wnl. CXR pending. Hospital Course: Treated for DKA and pancreatitis with gradual improvement. Patient had very labile glucose readings and very sensitive to insulin at times. Despite normalization of her lipase and correction of her DKA, she continued with intermittent pain and nausea/vomiting. Her anti-emetic was changed to reglan to assist with nausea and gastroparesis. Patient had continued improvement and discharged home with a small prescription for reglan. Follow up with PCP in 3-5 days. Advised to resume home regimen of insulin and sliding scale. She reported high readings in AM/Lunch time but significantly low readings overnight. Advised to lower night time dose. Reviewed importance of sticking to diabetic diet and learning to count her carbs. Patient expressed understanding and agreement with the plan On day of discharge, she had minimal pain, which she reports is part of her chronic pain, and the no nausea/vomiting. Vital Signs/Physical Exam: Physical Exam General: Alert, mild distress / in pain HEENT: Mucous membr. moist/pink, normal conjunctiva Respiratory: Clear to auscultation bilaterally, Normal air movement Cardiovascular: No edema, Regular rate/rhythm, Normal S1 S2 Gastrointestinal: soft, non-distended, mild TTP in epigastrium Integumentary: No rashes Temp Pulse Resp BP Pulse Ox 97.1 F 98 H 18 140/64 100 10/31/20 08:00 10/31/20 08:00 10/31/20 08:00 10/31/20 08:00 10/31/20 08:00 Laboratory Data at Discharge: WBC 5.70 K/uL (4.3-10.9) 10/31/20 05:09 Hgb 11.9 g/dL (12.0-15.0) L 10/31/20 05:09 Hct 35.7 % (36.0-45.0) L 10/31/20 05:09 Plt Count 194 K/uL (152-406) 10/31/20 05:09 Sodium 136 mmol/L (136-145) 10/31/20 05:09 Potassium 4.2 mmol/L (3.5-5.1) 10/31/20 05:09 BUN 7 mg/dL (7-18) 10/31/20 05:09 Creatinine 0.73 mg/dL (0.55-1.3) 10/31/20 05:09 Glucose 291 mg/dL (74-106) H 10/31/20 05:09 Phosphorus 3.5 mg/dL (2.5-4.9) 10/29/20 05:24 Magnesium 2.1 mg/dL (1.8-2.4) 10/31/20 05:09 Total Bilirubin 0.2 mg/dL (0.2-1.0) 10/31/20 05:09 AST 34 U/L (15-37) 10/31/20 05:09 ALT 46 U/L (12-78) 10/31/20 05:09 Alkaline Phosphatase 110 U/L (45-117) 10/31/20 05:09 Triglycerides 245 mg/dL (<150) H 10/27/20 05:59 Triglycerides Cancelled 10/27/20 05:59 Cholesterol 176 mg/dL (<200) 10/27/20 05:59 Cholesterol Cancelled 10/27/20 05:59 HDL Cholesterol 37 mg/dL (40-60) L 10/27/20 05:59 HDL Cholesterol Cancelled 10/27/20 05:59 Cholesterol/HDL Ratio 4.76 10/27/20 05:59 Cholesterol/HDL Ratio Cancelled 10/27/20 05:59 Amylase 106 U/L (25-115) 10/27/20 05:59 Lipase 195 U/L (73-393) 10/29/20 05:24 Home Medications: Albuterol Sulfate [Proair Hfa] 1 puff IN QIDP PRN 01/20/18 Dexlansoprazole [Dexilant] 60 mg PO DAILY 01/20/18 Ondansetron HCl [Zofran] 4 mg PO BID 01/20/18 Dicyclomine [Bentyl*] 20 mg PO BID 04/10/19 Insulin -Regular Human [Novolin -R*] See Protocol SQ ACHS ml 02/01/20 Quetiapine [Seroquel*] 300 mg PO BID tab 02/01/20 Zolpidem Tartrate [Ambien*] 5 mg PO BEDTIME PRN PRN tablet 02/01/20 methIMAzole [Tapazole*] 10 mg PO DAILY 10/28/20 Metoclopramide HCl [Reglan] 5 mg PO Q8H PRN 10 Days #30 tablet 10/31/20 New Medications: Metoclopramide HCl [Reglan] 5 mg PO Q8H PRN 10 Days #30 tablet PRN Reason: Nausea / Vomiting Physician Discharge Instructions: PROBLEM: DKA GOAL: Clear understanding of disease process INSTRUCTIONS: Diet: liquid Activity: As tolerated If you have any questions regarding your stay call [phone] If your symptoms worsen call [phone] or go to the ED. You were found to have DKA and pancreatitis. Resume home insulin regimen with sliding scale as previously prescribed. Lower your dose at nighttime as discussed. Adjust as needed. Continue with strict diabetic diet. Diet: liquid Activity: Ad keagan Followup: Unknown,U [Primary Care Provider] - Time spent managing pt's care (in minutes): 45
== END 2020-10-31 09:41 | disposition home or self-care (01) | DRG 438 ==
LOC: ER 16:46 → ERHOLD 18:20 → 2ND 10-27 16:59
PROVIDERS: ADMIT Internal Medicine; ATTEND Hospitalist
DX: K85.90 Acute pancreatitis without necrosis or infection, unspecified (principal); E11.10 Type 2 diabetes mellitus with ketoacidosis without coma; E11.65 Type 2 diabetes mellitus with hyperglycemia; F31.9 Bipolar disorder, unspecified; E11.43 Type 2 diabetes mellitus with diabetic autonomic (poly)neuropathy; K31.84 Gastroparesis; F20.9 Schizophrenia, unspecified; E03.9 Hypothyroidism, unspecified; Z20.822 Contact with and (suspected) exposure to COVID-19
CPT/HCPCS: 36415; 71045; 74178; 80048; 80053; 80061; 80076; 80307; 81003; 82010; 82150; 82947; 83036; 83690; 83735; 83930; 84100; 84439; 84443; 85025; 87040; 93005; 96365; 96366; 96375; 99285; C9113; J1650; J1815; J2270; J2405; J2550; J2765; J3480; J7030; Q9967; U0003

== ENCOUNTER 2021-12-04 22:40 | Emergency (ER) | payer OTHER ==
--- OUTSIDE RECORDS SUMMARY | 2021-12-04 22:43 | XMS REPORT | Continuity of Care Document ---
:1970 Author Organization [facility] t Address [address] [place] [address] Care Team Providers Name Role Phone Scottie Rodriguez MD Primary Care Physician [phone] Prakash ROGERS, Susan Attending Clinician Unavailable Doctor Unassigned, [place] Attending Clinician Unavailable Scottie Rodriguez MD Attending Clinician Team, 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 Medical complicati complicati Ce nter ons ons Schizophre Schizophre Disease Active [facility] Neuropathy Neuropathy Disease [facility] Hepatitis Hepatitis Disease Active Uni vers C [facility] DMII DMII Disease Active Univers (diabetes (diabetes [place]y of mellitus, mellitus[place] type 2[place] type 2) Medical Branch Bipolar 1 Bipolar 1 Disease Active [facility] Type 2 Type 2 Problem Active Common diabetes diabetes Spirit mellitus mellitus - CHI with with St hyperglyce hyperglyce Farideh huff [facility] Mixed Mixed Problem Active Common hyperlipid hyperlipid Sp sophia emia emia [facility] Gastroesop Gastroesop Problem Active C ommon hageal hageal Spirit reflux reflux - CHI disease disease [facility]ophag[facility] dical [facility] Irritable Irritable Problem Active 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 - CHI with with St constipati constipati Farideh kes on on [facility] Other Other Problem Active Common schizophre schizophre Sp sophia danilo danilo - [facility] Heavy Heavy Problem Active Common menses menses Spirit [facility] Gastropare Gastropare Problem Active C ommon sis sis [facility] Diabetic Diabetic Problem Active Commo n neuropathy neuropathy Sp sophia [facility] halfway halfway Problem Active Com mon current current Spirit use of use of - CHI insulin insulin [facility] Insomnia Insomnia Problem Active Commo n Spirit [facility] Osteoarthr Osteoarthr Problem Active C ommon itis itis [facility] Anemia Anemia Problem Active Common Spirit [facility] Neuropathy Neuropathy Problem Active C ommon Spirit [facility] Hyperlipid Hyperlipid Problem Active C ommon emia emia [facility] Diabetes Diabetes Problem Active Commo n [facility] Allergies, Adverse Reactions, Alerts This patient has no known allergies or adverse reactions. Social History Social Habit Start Date Stop Date Quantity Comments Source History of tobacco Cigarette Smoker University of use [facility] Alcohol intake 2021-05-23 2021-05-23 Current University 00:00:00 00:00:00 non-drinker of [facility] alcohol Branch (finding) Cigarettes smoked 2019-12-11 2019-12-11 Univers ity of current (pack per 00:00:00 00:00:00 [place] ) - Reported Branch Cigarette 2019-12-11 2019-12-11 University of pack-years 00:00:00 00:00:00 [facility] Tobacco use and 2019-12-11 2019-12-11 Former smokeless Uni versity of exposure 00:00:00 00:00:00 tobacco user [facility] Sex Assigned At [birth year] Universit y of 00:00:00 00:00:00 [facility] Smoking Status Start Date Stop Date Source Ex-smoker 2019-12-11 00:00:00 2019-12-11 00:00:00 [facility] Medications Ordered Filled Start Stop Current Ordering Indication Dosage Frequency Signature Comments Components Source Medication Medication Date Date Medication? Clinician (SIG) Name Name FUROSEMIDE Yes [id number] 20mg TAKE 1 Univers 20 mg 7-25 TABLET BY ity of tablet 00:00: MOUTH [place] EVERY Medical OTHER DAY Branch LISINOPRIL 0 Yes [id number] TAKE 1 U nivers 5 mg tablet 7-25 TABLET BY ity of 00:00: MOUTH [place] EVERY DAY Medical Branch FUROSEMIDE 0 Yes [id number] 20mg TAKE 1 Univers 20 mg 7-25 TABLET BY ity of tablet 00:00: MOUTH [place] EVERY Medical OTHER DAY Branch LISINOPRIL 0 Yes [id number] TAKE 1 U nivers 5 mg tablet 7-25 TABLET BY ity of 00:00: MOUTH [place] EVERY DAY Medical Branch ZOLPIDEM 10 2021-0 Yes [id number] TAKE 1 Univers mg tablet 7-12 TABLET BY ity o f 00:00: MOUTH [place] EVERY DAY Medical AT BEDTIME Branch NEEDED FOR INSOMNIA ZOLPIDEM 10 2021-0 Yes [id number] TAKE 1 Univers mg tablet 7-12 TABLET BY ity o f 00:00: MOUTH [place] EVERY DAY Medical AT BEDTIME Branch NEEDED FOR INSOMNIA ZOLPIDEM 10 2021-0 Yes [id number] TAKE 1 Univers mg tablet 7-12 TABLET BY ity o f 00:00: MOUTH [place] EVERY DAY Medical AT BEDTIME Branch NEEDED FOR INSOMNIA QUETIAPINE 2021-0 Yes [id number] TAKE 1 U nivers 300 mg 7-07 TABLET BY ity of tablet 00:00: MOUTH [place] 00 TWICE A Medical DAY Branch QUETIAPINE 2021-0 Yes [id number] TAKE 1 U nivers 300 mg 7-07 TABLET BY ity of tablet 00:00: MOUTH [place] 00 TWICE A Medical DAY Branch QUETIAPINE 2021-0 Yes [id number] TAKE 1 U nivers 300 mg 7-07 TABLET BY ity of tablet 00:00: MOUTH [place] 00 TWICE A Medical DAY Branch ALBUTEROL 2021-0 Yes INHALE 1 Univ ers 90 7-05 TO 2 PUFFS ity of mcg/actuati 00:00: BY MOUTH [place] on inhaler 00 EVERY 4 TO Med ical 6 HOURS Branch NEEDED ALBUTEROL 0 Yes INHALE 1 Univ ers 90 7-05 TO 2 PUFFS ity of mcg/actuati 00:00: BY MOUTH [place] inhaler 00 EVERY 4 TO Med ical 6 HOURS Branch NEEDED ALBUTEROL 2021-0 Yes INHALE 1 Univ ers 90 7-05 TO 2 PUFFS ity of mcg/actuati 00:00: BY MOUTH [place] on inhaler 00 EVERY 4 TO Med ical 6 HOURS Branch NEEDED linaCLOtide 2021-0 Yes [id number] TAKE 1 Univers (LINZESS) 6-27 CAPSULE BY ity of 290 mcg Cap 00:00: MOUTH ONCE [place] 00 DAILY 30 Medical MINUTES Branch BEFORE THE FIRST MEAL OF THE DAY linaCLOtide 2021-0 Yes [id number] TAKE 1 Univers (LINZESS) 6-27 CAPSULE BY ity of 290 mcg Cap 00:00: MOUTH ONCE [place] 00 DAILY 30 Medical MINUTES Branch BEFORE THE FIRST MEAL OF THE DAY linaCLOtide 2021-0 Yes [id number] TAKE 1 Univers (LINZESS) 6-27 CAPSULE BY ity of 290 mcg Cap 00:00: MOUTH ONCE 00 DAILY 30 Medical MINUTES Branch BEFORE THE FIRST MEAL OF THE DAY Insulin 2021-0 Yes [id number] INJECT 28 Univers NPH-Regular 6-05 9101 UNITS IN ity of Human Rec 00:00: THE IN THE [place] (HUMULIN 00 MORNING Medical 70/30 U-100 AND 25 Branch KWIKPEN) UNITS IN 100 unit/mL IN THE (70-30) EVENING injection Insulin 2021-0 Yes [id number] INJECT 28 Univers NPH-Regular 6-05 9101 UNITS IN ity of Human Rec 00:00: THE IN THE [place] (HUMULIN 00 MORNING Medical 70/30 U-100 AND 25 Branch KWIKPEN) UNITS IN 100 unit/mL IN THE (70-30) EVENING injection Insulin 2021-0 Yes [id number] INJECT 28 Univers NPH-Regular 6-05 9101 UNITS IN ity of Human Rec 00:00: THE IN THE [place] (HUMULIN 00 MORNING Medical 70/30 U-100 AND 25 Branch KWIKPEN) UNITS IN 100 unit/mL IN THE (70-30) EVENING injection LISINOPRIL Yes TAKE 1 Unive rs 10 mg 5-17 TABLET BY ity of tablet 00:00: MOUTH ONCE DAILY Medical Branch Insulin Yes USE TO Univers [place], 5-17 INJECT ity of Disposable, 00:00: INSULIN 2 [place] (BD 00 TIMES Medical ULTRAFINE DAILY. Branch III MINI DX:E11.65 PEN) 31 gauge x 3/16" Ndle LISINOPRIL Yes TAKE 1 Unive rs 10 mg 5-17 TABLET BY ity of tablet 00:00: MOUTH ONCE [place] DAILY Medical Branch Insulin Yes USE TO Univers [place], 5-17 INJECT ity of Disposable, 00:00: INSULIN 2 [place] (BD 00 TIMES Medical ULTRAFINE DAILY. Branch III MINI DX:E11.65 PEN) 31 gauge x 3/16" Ndle LISINOPRIL Yes TAKE 1 Unive rs 10 mg 5-17 TABLET BY ity of tablet 00:00: MOUTH ONCE DAILY Medical Branch Insulin Yes USE TO Univers [place], 5-17 INJECT ity of Disposable, 00:00: INSULIN 2 [place] (BD 00 TIMES Medical ULTRAFINE DAILY. Branch III MINI DX:E11.65 PEN) 31 gauge x 3/16" Ndle Insulin Yes Use as Univers Syringe-Nee 4-26 directed ity of dle U-100 1 00:00: to inject [place] mL 27 gauge 00 insulin 4 Med ical x 5/8" Syrg times Branch daily for E10.65 Insulin Yes Use as Univers Syringe-Nee 4-26 directed ity of dle U-100 1 00:00: to inject [place] mL 27 gauge 00 insulin 4 Med ical x 5/8" Syrg times Branch daily for E10.65 Insulin 0 Yes Use as Univers Syringe-Nee 4-26 directed ity of dle U-100 1 00:00: to inject [place] mL 27 gauge 00 insulin 4 Med ical x 5/8" Syrg times Branch daily for E10.65 Blood-Gluco Yes Use as Univ ers se Sensor 4-06 directed ity of (DEXCOM G6 00:00: to check [place] SENSOR) 00 blood Medical Barb sugars for Branch dx E10.65 Blood-Gluco 2-0 Yes Use as Univ ers se 4-06 directed ity of Transmitter 00:00: to check [place] (DEXCOM G6 00 blood Medical TRANSMITTER sugars for Br anch ) Barb dx E10.65 Blood-Gluco 2021-0 Yes Use as Univ ers se 4-06 directed ity of Meter,Keshawn 00:00: to check [place] nuous 00 blood Medical (DEXCOM G6 sugars 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) E10.65 Misc Blood-Gluco 2021-0 Yes Use as Univ ers se Sensor 4-06 directed ity of (DEXCOM G6 00:00: to check [place] SENSOR) 00 blood Medical Barb sugars for Branch dx E10.65 Blood-Gluco 2021-0 Yes Use as Univ ers se 4-06 directed ity of Transmitter 00:00: to check [place] (DEXCOM G6 00 blood Medical TRANSMITTER sugars for Br anch ) Barb dx E10.65 Blood-Gluco 2021-0 Yes Use as Univ ers se 4-06 directed ity of Meter,Keshawn 00:00: to check [place] nuous 00 blood Medical (DEXCOM G6 sugars 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) E10.65 Misc Blood-Gluco 2021-0 Yes Use as Univ ers se Sensor 4-06 directed ity of (DEXCOM G6 00:00: to check [place] SENSOR) 00 blood Medical Barb sugars for Branch dx E10.65 Blood-Gluco 2021-0 Yes Use as Univ ers se 4-06 directed ity of Transmitter 00:00: to check [place] (DEXCOM G6 00 blood Medical TRANSMITTER sugars for Br anch ) Barb dx E10.65 Blood-Gluco 2021-0 Yes Use as Univ ers se 4-06 directed ity of Meter,Keshawn 00:00: to check [place] nuous 00 blood Medical (DEXCOM G6 sugars 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 Medical DOM 2 E10.65 Branch SENSOR) Kit flash 2022-0 Yes [id number] 1{kit} 1 Kit Un rl glucose 4-04 9101 every 14 ity of sensor 00:00: (fourteen) [place] (FREESTYLE 00 days. Medical DOM 2 E10.65 Branch SENSOR) Kit flash 2-0 Yes [id number] 1{kit} 1 Kit Un rl glucose 4-04 9101 every 14 ity of sensor 00:00: (fourteen) [place] (FREESTYLE 00 days. Medical DOM 2 E10.65 Branch SENSOR) Kit pregabalin 2021-0 Yes [id number] 100mg Take 1 Univers 100 mg 4-02 9101 capsule by ity of capsule 00:00: mouth 2 (two) Medical times Branch daily. pregabalin 2022-0 Yes [id number] 100mg Take 1 Univers 100 mg 4-02 9101 capsule by ity of capsule 00:00: mouth 2 (two) Medical times Branch daily. pregabalin 2021-0 Yes [id number] 100mg Take 1 Univers 100 mg 4-02 9101 capsule by ity of capsule 00:00: mouth 2 (two) Medical times Branch daily. flash 2-0 Yes [id number] 1{each} 1 Each Univers glucose 3-21 9101 daily. ity of scanning 00:00: [place] reader 00 Medical [facility] DOM 2 READER) Misc flash 2022-0 Yes [id number] 1{each} 1 Each Univers glucose 3-21 9101 daily. ity of scanning 00:00: [place] reader 00 Medical ([facility] Branch DOM 2 READER) Misc flash 2022-0 Yes [id number] 1{each} 1 Each Univers glucose 3-21 9101 daily. ity of scanning 00:00: [place] reader 00 Medical ([facility] DOM 2 READER) Misc methIMAzole 2020-04 Yes [id number] 5mg Take 1 Univers 5 mg tablet 1-22 tablet by ity of 00:00: mouth 00 daily. Medical Branch insulin NPH 2020-04 Yes [id number] 25 units Univers and regular 1-22 9101 wtice ity of human 70-30 00:00: daily [place] (HUMULIN 00 before Medical 70/30 U-100 meals. Max Br anch INSULIN) daily dose 100 unit/mL of 70 (70-30) units injection methIMAzole 2020-04 Yes [id number] 5mg Take 1 Univers 5 mg tablet 1-22 tablet by ity of 00:00: mouth [place] 00 daily. Medical Branch insulin NPH 2020-04 Yes [id number] 25 units Univers and regular - 9101 wtice ity of human 70-30 00:00: daily [place] (HUMULIN 00 before Medical 70/30 U-100 meals. Max Br anch INSULIN) daily dose 100 unit/mL of 70 (70-30) units injection methIMAzole 2020-04 Yes [id number] 5mg Take 1 Univers 5 mg tablet -22 tablet by ity of 00:00: mouth [place] 00 daily. Medical Branch insulin NPH 2020-04 Yes [id number] 25 units Univers and regular - 9101 wtice ity of human 70-30 00:00: daily [place] (HUMULIN 00 before Medical 70/30 U-100 meals. Max Br anch INSULIN) daily dose 100 unit/mL of 70 (70-30) units injection atorvastati 2020-04 Yes [id number] 10mg Take 1 Univers n (LIPITOR) 0-07 tablet by ity of 10 mg 00:00: mouth at [place] tablet 00 bedtime. Medical Branch atorvastati 2020-04 Yes [id number] 10mg Take 1 Univers n (LIPITOR) 0-07 tablet by ity of 10 mg 00:00: mouth at [place] tablet 00 bedtime. Medical Branch atorvastati 2020-04 Yes [id number] 10mg Take 1 Univers n (LIPITOR) 0-07 tablet by ity of 10 mg 00:00: mouth at [place] tablet 00 bedtime. Medical Branch silver Yes [id number] Apply to Un rl sulfADIAZIN 9-01 area(s) 2 ity of E 00:00: (two) [place] (SILVADENE) 00 times Medical 1 % cream daily. Branch silver Yes [id number] Apply to Un rl sulfADIAZIN 9-01 area(s) 2 ity of E 00:00: (two) [place] (SILVADENE) 00 times Medical 1 % cream daily. Branch silver Yes [id number] Apply to Un rl sulfADIAZIN 9-01 area(s) 2 ity of E 00:00: (two) [place] (SILVADENE) 00 times Medical 1 % cream daily. Branch metoclopram 2021-0 Yes [id number] 5mg Take 1 Univers daniel HCl 5 8-24 tablet by ity o f mg tablet 00:00: mouth [place] 00 before Medical meals. Branch Dexlansopra 0 Yes [id number] 60mg Take 1 Univers zole 8-24 capsule by ity of (DEXILANT) 00:00: mouth [place] 60 mg 00 daily. Medical capsule Branch dicyclomine 0 Yes [id number] 20mg Take 1 Univers 20 mg 8-24 tablet by ity of tablet 00:00: mouth 2 [place] 00 (two) Medical times Branch daily. metoclopram 2020-0 Yes [id number] 5mg Take 1 Univers daniel HCl 5 8-24 tablet by ity o f mg tablet 00:00: mouth [place] 00 before Medical meals. Branch Dexlansopra 0 Yes [id number] 60mg Take 1 Univers zole 8-24 capsule by ity of (DEXILANT) 00:00: mouth [place] 60 mg 00 daily. Medical capsule Branch dicyclomine 0 Yes [id number] 20mg Take 1 Univers 20 mg 8-24 tablet by ity of tablet 00:00: mouth 2 [place] 00 (two) Medical times Branch daily. metoclopram 2020-0 Yes [id number] 5mg Take 1 Univers daniel HCl 5 8-24 tablet by ity o f mg tablet 00:00: mouth [place] 00 before Medical meals. Branch Dexlansopra Yes [id number] 60mg Take 1 Univers zole 8-24 capsule by ity of (DEXILANT) 00:00: mouth [place] 60 mg 00 daily. Medical capsule Branch dicyclomine 0 Yes [id number] 20mg Take 1 Univers 20 mg 8-24 tablet by ity of tablet 00:00: mouth 2 [place] 00 (two) Medical times Branch daily. naproxen 2019- Yes 220mg Take 220 Univ ers sodium 0-28 mg by ity of (ALEVE) 220 14:52: mouth 2 [place] mg tablet 17 (two) Medical times Branch daily with meals. naproxen 2019- Yes 220mg Take 220 Univ ers sodium 0-28 mg by ity of (ALEVE) 220 14:52: mouth 2 [place] mg tablet 17 (two) Medical times Branch daily with meals. naproxen 2020-1 Yes 220mg Take 220 Univ ers sodium 0-28 mg by ity of (ALEVE) 220 14:52: mouth 2 [place] mg tablet 17 (two) Medical times Branch daily with meals. medroxyPROG 2020-0 Yes 150mg 150 mg by [facility] 609 Intr[address]cu ity o f (DEPO-PROVE 11:49: lar route [place] RA) 150 34 every 3 Medical mg/mL (three) Branch injection months. medroxyPROG 2020-0 Yes 150mg 150 mg by [facility] [place] [facility] 6 Intramuscu ity o f (DEPO-PROVE 11:49: lar route [place] RA) 150 34 every 3 Medical mg/mL (three) Branch injection months. medroxyPROG 2020-0 Yes 150mg 150 mg by [facility] [place] [facility] 6 Intramuscu ity o f (DEPO-PROVE 11:49: lar route [place] RA) 150 34 every 3 Medical mg/mL (three) Branch injection months. Immunizations Ordered Filled Immunization Date Status Comments [facility] e Immunization Name Name SARS-COV-2 COVID-19 2020-08-23 Completed Unive rsity of PFIZER VACCINE 00:00:00 [facility] SARS-COV-2 COVID-19 2020-08-23 Completed Unive rsity of PFIZER VACCINE 00:00:00 [facility] SARS-COV-2 COVID-19 2020-08-23 Completed Unive rsity of PFIZER VACCINE 00:00:00 [facility] SARS-COV-2 COVID-19 2020-07-20 Completed Unive rsity of PFIZER VACCINE 00:00:00 [facility] SARS-COV-2 COVID-19 2020-07-20 Completed Unive rsity of PFIZER VACCINE 00:00:00 [facility] SARS-COV-2 COVID-19 2020-07-20 Completed Unive rsity of PFIZER VACCINE 00:00:00 [facility] TDAP 2019-12-11 Completed University 00:00:00 [facility] TDAP 2019-12-11 Completed [facility] 00:00:00 [facility] TDAP 2019-12-11 Completed [facility] 00:00:00 [facility] Procedures Procedure Date / Time Performing Clinician Source Performed INSURANCE CORRESPONDENCE 2021-11-12 05:01:00 Doctor Unassigned, [facility] [place] Medical Branch Encounters Start End Encounter Admission Attending Care Care Encounter Source Date/Time Date/Time Type Type Clinicians Facility Department ID 2021-11-23 2021-11-23 Telephone [facility] [id number] Univers 00:00:00 00:00:00 Susan HEALTH [id number] it y of [facility] [id number] [place]?BLEA [phone] [address] OFFICE BUILDING 2021-11-16 2021-11-16 [facility] 1.2.840.114 [id number] Univers 00:00:00 00:00:00 Susan HEALTH [id number] it y of [place] [id number] [place]?BLEA [phone] [address] OFFICE [facility] 2021-11-12 2021-11-12 Orders Doctor GAGANDEEP 1.2.840.114 [id number] Univers 00:00:00 00:00:00 Only Unassigned, CLIFF [id number] ity of [place] [facility] [id number] [place] as [phone] [address] 2020-10-03 2020-10-03 [facility] 1.2.840.114 [id number] 00:00:00 00:00:00 [facility] Health [id number] Edward Broadus [id number] Professio [phone] [place] [address] Office [facility] 2020-09-24 2020-09-24 Orders Doctor GAGANDEEP 1.2.840.114 [id number] 00:00:00 00:00:00 Only Unassigned, CLIFF [id number] [place] [facility] [id number] [facility] 2020-09-17 2020-09-17 [facility] 1.2.840.114 [id number] 00:00:00 00:00:00 Scottie Health [id number] Edward Broadus [id number] Professio [phone] [place] [address] Office [facility] 2020-09-14 2020-09-14 Refill [facility] 1.2.840.114 [id number] 00:00:00 00:00:00 Scottie Brady [id number] [facility] [id number] Professio [phone] [address] 2020-09-04 2020-09-04 Telemedici [facility] 1.2.840.114 [id number] 07:01:14 07:16:14 ne Visit [facility] [id number] [facility] [id number] Professio [phone] [place] [address] Office [facility] 2020-08-14 2020-08-[address] [facility] GAGANDEEP 1.2.840.114 [id number] 00:00:00 00:00:00 [facility] [id number] [facility] [phone] [id number] 2020-07-15 2020-07-15 [facility] 1.2.840.114 [id number] 00:00:00 00:00:00 [facility] [id number] [facility] [id number] Professio [phone] [place] [address] Office [facility] 2020-07-15 2020-07-15 Telephone [facility] 1.2.840.114 [id number] 00:00:00 00:00:00 Susan Brady [id number] [place] [id number] Professio [phone] critical access hospital 220 [facility] 2020-06-17 2020-06-17 Refill [facility] 1.2.840.114 [id number] 00:00:00 00:00:00 Scottie Brady [id number] [facility] [id number] Professio [phone] [address] 2020-06-03 2020-06-03 Orders Doctor DONIS 1.2.840.114 [id number] 00:00:00 00:00:00 Only Unassigned, CLIFF [id number] [place] [facility] [id number] [id number] [id number] 2020-05-23 2020-05-23 Refill [facility] 1.2.840.114 [id number] 00:00:00 00:00:00 Scottie Brady [id number] [place] [id number] Professio [phone] [address] 2020-05-23 2020-05-23 Telephone [facility] 1.2.840.114 [id number] 00:00:00 00:00:00 Susan MULTISPEC [id number] [place] 4.2.7.2.686 [place] [phone] [place] [address] [facility] 2020-05-22 2020-05-22 Telemedici [facility] 1.2.840.114 [id number] 07:35:33 07:50:33 ne Visit [facility] [id number] Edmalissa Broadus [id number] Professio [phone] [place] [address] Office Building One 2020-05-21 2020-05-21 Telephone [facility] 1.2.840.114 [id number] 00:00:00 00:00:00 [facility] [id number] [facility] [id number] Professio [phone] [place] [address] Office Building One 2020-05-20 2020-05-20 Telephone [facility] 1.2.840.114 [id number] 00:00:00 00:00:00 Susan Broadus [id number] [place] [id number] Professio [phone] critical access hospital 220 [facility] 2020-05-19 2020-05-19 Orders Doctor DONIS 1.2.840.114 [id number] 00:00:00 00:00:00 Only Unassigned, CLIFF [id number] [place] [facility] 4.2.7.2.686 [id number] [id number] 2020-05-15 2020-05-15 [facility] 1.2.840.114 [id number] 00:00:00 00:00:00 [facility] [id number] Edward Broadus [id number] Professio [phone] [place] [address] Office Building One 2020-05-13 2020-05-13 [place] [facility] 1.2.840.114 [id number] 00:00:00 00:00:00 [facility] [id number] Edward Broadus [id number] Professio [phone] [place] [address] Office Building One 2020-05-09 2020-05-09 [place] [facility] 1.2.840.114 [id number] 00:00:00 00:00:00 [facility] [id number] Edward Broadus [id number] Professio [phone] [place] [address] Office Building One 2020-05-05 2020-05-05 [facility] 1.2.840.114 [id number] 00:00:00 00:00:00 Susan Broadus [id number] [place] [id number] Professio [phone] [address] 2020-04-14 2020-04-[address] [facility] 1.2.840.114 [id number] 00:00:00 00:00:00 Susan Broadus [id number] [place] [id number] Professio [phone] [address] 2020-04-14 2020-04-14 Refill [facility] 1.2.840.114 [id number] 00:00:00 00:00:00 Susan Broadus [id number] [place] [id number] Professio [phone] [address] 2020-04-11 2020-04-11 Orders Doctor GAGANDEEP 1.2.840.114 [id number] 00:00:00 00:00:00 Only Unassigned, CLIFF [id number] [place] [facility] [id number] [id number] [id number] 2020-04-09 2020-04-09 Telephone Prakash [facility] 1.2.840.114 [id number] 00:00:00 00:00:00 Susan Brady [id number] [place] [id number] Professio [phone] critical access hospital 220 Building 2020-04-08 2020-04-08 Telephone Jennifer [facility] 1.2.840.114 [id number] 00:00:00 00:00:00 [facility] [id number] [place] [id number] Professio [phone] n[place] 044 Office Building One 2020-04-01 2020-04-01 [place] [facility] [id number] 00:00:00 00:00:00 Susan Brady [id number] [place] [id number] Professio [phone] critical access hospital 220 Building 2020-03-31 2020-03-31 [facility] [id number] 13:18:18 14:18:48 Visit Susan Brady [id number] [place] [id number] Professio [phone] critical access hospital 220 Building 2020-03-31 2020-03-31 Orders Doctor GAGANDEEP [id number] 00:00:00 00:00:00 Only Unassigned, CLIFF [id number] [place] [facility] [phone] [id number] 2018-05-03 2018-05-03 [facility] 23 [id number] Common 10:54:00 10:54:00 [employer] [facility] 19pay [facility] Results Test Description Test Time Test Comments Results Result Comments Source TSH, THIRD GENERATION 2021-10-05 04:16:21 Test Item Value Reference Range Interpretation Comme nts TSH, THIRD GENERATION (test code = 2821) <0.010 UIU/ML 0.400-4.100 L COMPREHENSIVE METABOLIC [id number] 03:38:28 Test Item Value Reference Range Interpretation Comments GLUCOSE (test code = 164 MG/DL 70-99 H 2216) BUN (test code = 10 MG/DL 6-20 2207) CREATININE (test 0.77 MG/DL 0.60-1.30 code = 2214) eGFR (2020 CKD-EPI) 93 >60 (test code = 59201) ML/MIN/1.73 CALC BUN/CREAT (test 13 RATIO 6-28 code = 2235) SODIUM (test code = 142 MEQ/L 135-246 8871) POTASSIUM (test code 4.3 MEQ/L 3.5-5.4 = 2227) CHLORIDE (test code 101 MEQ/L 95-107 = 2214) CARBON DIOXIDE (test 25 MEQ/L 19-31 code = 2206) CALCIUM (test code = 9.7 MG/DL 8.5-10.5 2208) PROTEIN, TOTAL (test 6.9 G/DL 6.1-8.3 code = 222) ALBUMIN (test code = 4.0 G/DL 3.5-5.2 2200) CALC GLOBULIN (test 2.9 G/DL 1.9-3.7 code = 2240) CALC A/G RATIO (test 1.4 RATIO 1.0-2.6 code = 2234) BILIRUBIN, TOTAL <0.2 MG/DL See_Comment [Automated message] (test code = 2207) The syste m which generated this result transmitted ref erence range: <=1.2. T he reference range was not used to int erpret this result as normal/abnormal . ALKALINE PHOSPHATASE 133 U/L 40-132 H (test code = 2204) AST (test code = 19 U/L 9-40 2217) ALT (test code = 24 U/L 5-40 UNLESS OTH ERWISE 2218) INDICATED, ALL TESTING PERFORM [facility], [address] [place] [address] FORMERLY [facility] DIRECTOR: SHIRA RESENDIZ M.D. CLIA NUMBER [id number] CAP ACCREDITATION N O. [id number] LIPID [id number] 03:38:28 Test Item Value Reference Range Interpretation Comments CHOLESTEROL (test 183 MG/DL <200 code = 2210) TRIGLYCERIDES (test 328 MG/DL <150 H code = 2232) HDL CHOLESTEROL (test 47 MG/DL >39 code = 2220) CALC LDL CHOL (test 92 MG/DL <100 NOTE: C ALCULATED LDL code = 2237) IS BASED ON RICARDO-COLLINS METHOD WHICHINCLUDES ADJUSTABLE TRIGLYCERIDE:VL DL CHOLESTEROL RAT IO.THIS FACTOR VARIES B Y MEASURED TRIGLY CERIDE AND NON-HDLCHOL ESTEROL CONCENTRATIONS WITH INCREASED CALCU LATED LDL SEENIN HIGH ER TRIGLYCERIDE OR LOWER NON-HDL SPECIME NS. FOR MOREINFORMATION , SEE CLIENT ANNOUNCE MENT AT [email or web address] [email or web address] RATIO LDL/HDL 1.96 RATIO <3.22 (test code = 2238) HEMOGLOBIN [id number] 03:17:10 Test Item Value Reference Range Interpretation Comments HEMOGLOBIN A1c (test 10.6 % 4.2-5.6 H AMERIC AN DIABETES code = 67157) ASSOCIATION IDELINES FOR HGB A1C: PREDIABETES/INC REASED RISK . . . . . . . 5 .7-6.4% DIAGNOSIS OF DI ABETES . . . . . . . . . >=6 .5% WITH CONFIRMATION OR APPROPRIATE SYMPTOMS NOTE: ASSAY MAY BE AFFECTED BY HEMOGLOBINOPATH IES (SICKLE CELL ANEMIA, S- C DISEASE, OTHERS) OR DASH FICIALLY LOWERED BY DECR EASED RED CELL SURVIVAL ( HEMOLYTIC ANEMIAS, BLOOD LOSS, ETC.). CONSIDER ALTERN ATE TESTING OR LABORATORY C ONSULTATION.
[2021-12-04 23:40] LABS: Absolute Lymphocytes (CBC) 1.3 K/uL (0.7-4.9); Hematocrit 38.7 % (36.0-45.0); Lymphocytes % 23.7 % (15.3-44.8); MPV 9.1 fL (7.6-11.3); RBC Red Blood Cell Count 4.26 M/uL (3.86-4.86)
[2021-12-04] MEDS ORDERED: NA CHLORIDE 0.9% 1,000 ML ONE (23:52)
[2021-12-04 23:56] LABS: Potassium 4.7 mmol/L (3.5-5.1)
[2021-12-05] MEDS ORDERED: NA CHLORIDE 0.9% 0 ML ONE
[2021-12-05] MEDS ORDERED: ONDANSETRON 4 MG/2 ML VIAL ONE (02:22)
[2021-12-05] MEDS ORDERED: NA CHLORIDE 0.9% 1,000 ML ONE (02:48)
--- NOTE | 2021-12-05 04:30 | EDPHYS ---
Physician Documentation [facility] Name: Roya Anne Age: 51 yrs Sex: Female : 1970 Arrival Date: 12/04/2021 Time: 22:46 Bed 8 Private MD: ED Physician Tejinder Anguiano HPI: 12/05 04:02 This 51 yrs old Female presents to ER via EMS with complaints of took 38 units ms3 of insulin instead of 10 units. 04:02 51-year-old female with past medical history of diabetes and schizophrenia presents via ms3 [facility] for taking too much insulin. Patient denies pain. Patient denies alleviating or inciting factors. Patient denies nausea, vomiting. Onset: The symptoms/episode began/occurred just prior to arrival. Severity of symptoms: Pain is currently a 0 / 10. Historical: - Allergies: 12/04 22:49 No Known Allergies; bm7 - Home Meds: 22:50 insulin [Active]; losartan Oral [Active]; Lyrica Oral [Active]; bm7 - PMHx: 22:50 Diabetes mellitus; Schizophrenia; bm7 - Immunization history:: Adult Immunizations unknown. - Social history:: Smoking status: Patient/guardian denies using tobacco products. ROS: 12/05 04:02 Constitutional: Negative for fever, and chills. Neck: Negative for injury, pain, and ms3 swelling, Cardiovascular: Negative for chest pain, and palpitations. Respiratory: Negative for shortness of breath, cough, wheezing, and pleuritic chest pain, Abdomen/GI: Negative for abdominal pain, nausea, vomiting, diarrhea, and constipation, MS/Extremity: Negative for injury and deformity, Skin: Negative for injury, rash, and discoloration, Neuro: Negative for headache, weakness, numbness, tingling. All other systems are negative. Exam: 12/04 23:22 ECG was reviewed by the Attending Physician. ms3 12/05 04:02 Constitutional: This is a well developed, well nourished patient who is awake, alert, ms3 and in no acute distress. Neck: Trachea midline, no cervical lymphadenopathy. Supple, full range of motion without nuchal rigidity, or vertebral point tenderness. No Meningismus. Chest/axilla: Normal chest wall appearance and motion. Nontender with no deformity. Cardiovascular: Regular rate and rhythm with a normal S1 and S2. No gallops, murmurs, or rubs. Normal PMI, no JVD. No pulse deficits. Respiratory: Lungs have equal breath sounds bilaterally, clear to auscultation and percussion. No rales, rhonchi or wheezes noted. No increased work of breathing, no retractions or nasal flaring. Abdomen/GI: Soft, non-tender, with normal bowel sounds. No distension or tympany. No guarding or rebound. No evidence of tenderness throughout. Skin: Warm, dry with normal turgor. Normal color with no rashes, no lesions, and no evidence of cellulitis. MS/ Extremity: Pulses equal, no cyanosis. Neurovascular intact. Full, normal range of motion. Psych: Awake, alert, with orientation to person, place and time. Behavior, mood, and affect are within normal limits. Vital Signs: 12/04 22:46 BP 145 / 82; Pulse 100; Resp 24; Temp 97.4(TE); Pulse Ox 94% on R/A; Weight 86.64 kg bm7 (R); Height 5 ft. 2 in. (157.48 cm); Pain 0/10; 23:31 BP 109 / 46; Pulse 104; Resp 17; Pulse Ox 96% ; mh5 12/05 00:17 BP 131 / 66; Pulse 103; Resp 18; Pulse Ox 99% on NC; mh5 01:34 BP 145 / 80; tw5 04:34 BP 142 / 78; Pulse 100; Resp 17; Pulse Ox 95% on R/A; mh5 12/04 22:46 Body Mass Index 34.93 (86.64 kg, 157.48 cm) bm7 MDM: 12/04 23:01 Patient medically screened. ms3 12/05 04:02 Differential Diagnosis Insulin overdose vs Hypoglycemia vs Hyperglycemia. Data ms3 reviewed: vital signs, nurses notes, lab test result(s), and as a result, I will discharge patient. Counseling: I had a detailed discussion with the patient and/or guardian regarding: the historical points, exam findings, and any diagnostic results supporting the discharge/admit diagnosis, lab results, the need for outpatient follow up, to return to the emergency department if symptoms worsen or persist or if there are any questions or concerns that arise at home. 04:31 ED course: Patient blood sugar improved after 2 L NS. Discussed glucose control with ms3 patient. Patient and agrees with plan. All questions were answered. Return precautions discussed include worsening symptoms, or any other concerns. On reevaluation patient is alert and oriented x4, no apparent distress, nontoxic appearing. 12/04 23:07 Order name: Glucose, Ancillary Testing; Complete Time: 23:18 EDMS 12/04 23:19 Order name: CBC with Diff; Complete Time: 00:02 ms3 12/04 23:19 Order name: BMP; Complete Time: 00:02 ms3 12/05 01:19 Order name: Glucose, Ancillary Testing; Complete Time: 01:23 EDMS 12/05 04:37 Order name: Glucose, Ancillary Testing; Complete Time: 04:40 EDMS 12/05 00:53 Order name: Glucose Level; Complete Time: 02:27 ms3 12/05 03:57 Order name: Glucose Level; Complete Time: 04:26 ms3 EC/12 23:22 Rate is 106 beats/min. Rhythm is regular. QRS [place] is Normal. QRS interval is normal. ms3 Clinical impression: Sinus tachycardia. Interpreted by me. Reviewed by me. Administered Medications: 23:53 Drug: NS 0.9% 1000 ml Route: IV; Rate: 1000 ml; Site: left antecubital; vc1 12/05 00:53 Follow up: IV Status: Completed infusion; IV Intake: 1000ml vc1 01:33 Drug: Zofran (Ondansetron) 4 mg Route: IVP; Site: right antecubital; tw5 04:59 Follow up: Response: No adverse reaction; Marked relief of symptoms; Nausea is decreasedvc1 02:46 Drug: NS 0.9% 1000 ml Route: IV; Rate: 125 ml/hr; Site: right antecubital; vc1 04:59 Follow up: IV Status: Completed infusion; IV Intake: 275ml vc1 04:59 Drug: Tylenol 1000 mg Route: PO; vc1 04:59 Follow up: Response: No adverse reaction; Medication administered at discharge. vc1 Point of Care Testing: Blood Glucose: 12/04 22:55 Blood Glucose: High (>450 mg/dL); bm7 Ranges: Critical Glucose Levels:Adult <50 mg/dl or >400 mg/dl <40 mg/dl or >180 mg/dl Disposition Summary: 12/05/21 04:29 Discharge Ordered Location: Home ms3 Condition: Stable ms3 Diagnosis - Hyperglycemia, unspecified ms3 - Dehydration ms3 Followup: ms3 - With: Yg Dhaliwal DO - When: 2 - 3 days - Reason: Re-evaluation by your physician Discharge Instructions: - Discharge Summary Sheet ms3 - Dehydration, Adult ms3 - Hyperglycemia ms3 Forms: - Medication Reconciliation Form ms3 - Thank You Letter ms3 - Antibiotic Education ms3 - Prescription Opioid Use ms3 Signatures: Dispatcher [employer] EDMS Celio Ojeda, TOOL DISPATCHER-C TOOL DISPATCHER-Cla1 Tejinder Anguiano, DO ms3 Kathy Ramsay, RN RN bm7 Miri Abreu tw5 Amalia Ansari RN RN vc1 Corrections: (The following items were deleted from the chart) 22:50 22:49 Home Meds: Bentyl Oral; [place] [address] 22:50 22:49 Home Meds: Seroquel Oral; [place] [address] 22:50 22:49 Home Meds: Zofran Oral; [place] [address] 22:50 22:49 PMHx: Anemia; [facility] 22:50 22:49 PMHx: Hypertension; [place] [address] 22:50 22:49 PMHx: Diabetes - IDDM; [place] [address] 22:50 22:49 PMHx: Pancreatitis; [facility] 22:50 22:49 PMHx: neuropathy; [facility] 22:50 22:49 PMHx: Schizophrenia; [place] [address] 22:50 22:49 PMHx: Bipolar disorder; [place] [address] 22:50 22:49 PMHx: Hypothyroidism; [facility] 22:50 22:49 PMHx: "stomach CA cells"; [facility] 22:50 22:49 PMHx: Diabetes mellitus; [place] [address] 22:50 22:49 PMHx: Hypothyroidism; [facility]
--- NOTE | 2021-12-05 04:30 | ER ---
Nurse's Notes [facility] Name: Roya Anne Age: 51 yrs Sex: Female : 1970 Arrival Date: 12/04/2021 Time: 22:46 Bed 8 Private MD: Diagnosis: Hyperglycemia, unspecified;Dehydration Presentation: 12/04 22:46 Chief complaint: EMS states: Patient states she forgot to take her insulin all day bm7 today so about an hour ago she decided to take 38 units of regular insulin. Patient states she feels dizzy and her blood sugar arriving to the hospital was 590. Coronavirus screen: At this time, the client does not indicate any symptoms associated with coronavirus-19. Ebola Screen: No symptoms or risks identified at this time. Initial Sepsis Screen: Does the patient meet any 2 criteria? No. Patient's initial sepsis screen is negative. Does the patient have a suspected source of infection? No. Patient's initial sepsis screen is negative. Risk Assessment: Do you want to hurt yourself or someone else? Patient reports no desire to harm self or others. Onset of symptoms was December 04, 2021 at 21:40. Care prior to arrival: None. 22:46 Method Of Arrival: EMS: [facility] bm7 22:46 Acuity: AGATA 2 bm7 Triage Assessment: 22:50 General: Appears in no apparent distress. comfortable, Behavior is calm, cooperative, bm7 drowsy. Pain: Denies pain. EENT: No deficits noted. No signs and/or symptoms were reported regarding the EENT system. Neuro: Level of Consciousness is awake, lethargic, Oriented to person, place, time, situation. Cardiovascular: Rhythm is sinus tachycardia Chest pain is denied. Respiratory: Denies shortness of breath. GI: No deficits noted. No signs and/or symptoms were reported involving the gastrointestinal system. : No deficits noted. No signs and/or symptoms were reported regarding the genitourinary system. Derm: No deficits noted. No signs and/or symptoms reported regarding the dermatologic system. Musculoskeletal: No deficits noted. No signs and/or symptoms reported regarding the musculoskeletal system. Historical: - Allergies: 22:49 No Known Allergies; bm7 - Home Meds: 22:50 insulin [Active]; losartan Oral [Active]; Lyrica Oral [Active]; bm7 - PMHx: 22:50 Diabetes mellitus; Schizophrenia; bm7 - Immunization history:: Adult Immunizations unknown. - Social history:: Smoking status: Patient/guardian denies using tobacco products. Screenin:00 Abuse screen: Denies threats or abuse. Nutritional screening: No deficits noted. vc1 Tuberculosis screening: No symptoms or risk factors identified. Fall Risk None identified. Assessment: 23:00 General: Appears in no apparent distress. comfortable, Behavior is cooperative, vc1 appropriate for age. General: Reports. Neuro: No deficits noted. GI: Reports nausea. : No deficits noted. EENT: No deficits noted. Derm: No deficits noted. 12/05 00:00 Reassessment: No changes from previously documented assessment. Patient and/or family vc1 updated on plan of care and expected duration. Pain level reassessed. 01:34 General: Reports "I am feeling really nauseous.". Neuro: No deficits noted. tw5 02:48 Reassessment: Patient and/or family updated on plan of care and expected duration. Pain vc1 level reassessed. Pt laying in bed with eyes closed, can be heard snoring. 03:00 Reassessment: No changes from previously documented assessment. Patient and/or family vc1 updated on plan of care and expected duration. Pain level reassessed. 04:00 Reassessment: No changes from previously documented assessment. Patient and/or family vc1 updated on plan of care and expected duration. Pain level reassessed. Patient states symptoms have not improved. 05:00 Reassessment: Patient and/or family updated on plan of care and expected duration. Pain vc1 level reassessed. Patient is alert, oriented x 3, equal unlabored respirations, skin warm/dry/pink. Patient states feeling better. Patient states symptoms have improved. Vital Signs: 12/04 22:46 BP 145 / 82; Pulse 100; Resp 24; Temp 97.4(TE); Pulse Ox 94% on R/A; Weight 86.64 kg bm7 (R); Height 5 ft. 2 in. (157.48 cm); Pain 0/10; 23:31 BP 109 / 46; Pulse 104; Resp 17; Pulse Ox 96% ; mh5 12/05 00:17 BP 131 / 66; Pulse 103; Resp 18; Pulse Ox 99% on NC; mh5 01:34 BP 145 / 80; tw5 04:34 BP 142 / 78; Pulse 100; Resp 17; Pulse Ox 95% on R/A; 5 12/04 22:46 Body Mass Index 34.93 (86.64 kg, 157.48 cm) 7 ED Course: 08 22:46 Patient arrived in ED. bm7 22:46 Tejinder Anguiano DO is Attending Physician. ms3 22:49 Triage completed. bm7 22:50 Arm band placed on right wrist. bm7 22:55 Kathy Ramsay, RN is Primary Nurse. bm7 22:56 Patient has correct armband on for positive identification. Bed in low position. Call [facility] light in reach. Side rails up X2. Warm blanket given. monitoring engineer on. Pulse ox on. NIBP on. 22:56 Initial lab(s) drawn, by me, held in ED. Inserted saline lock: 22 gauge in right [facility] antecubital area, using aseptic technique. Blood collected. 23:22 EKG done, by ED staff, reviewed by Tejinder Anguiano DO. [facility] 23:29 sent to lab. [facility] 12/05 04:28 Yg Dhaliwal DO is Referral Physician. ms3 04:50 No provider procedures requiring assistance completed. IV discontinued, intact, vc1 bleeding controlled, No redness/swelling at site. Pressure dressing applied. 05:04 Primary Nurse role handed off by Kathy Ramsay, CHARLEY vc1 05:04 Amalia Ansari, CHARLEY is Primary Nurse. vc1 Administered Medications: 12/04 23:53 Drug: NS 0.9% 1000 ml Route: IV; Rate: 1000 ml; Site: left antecubital; vc1 12/05 00:53 Follow up: IV Status: Completed infusion; IV Intake: 1000ml vc1 01:33 Drug: Zofran (Ondansetron) 4 mg Route: IVP; Site: right antecubital; tw5 04:59 Follow up: Response: No adverse reaction; Marked relief of symptoms; Nausea is decreasedvc1 02:46 Drug: NS 0.9% 1000 ml Route: IV; Rate: 125 ml/hr; Site: right antecubital; vc1 04:59 Follow up: IV Status: Completed infusion; IV Intake: 275ml vc1 04:59 Drug: Tylenol 1000 mg Route: PO; vc1 04:59 Follow up: Response: No adverse reaction; Medication administered at discharge. vc1 Medication: 05:04 VIS not applicable for this client. vc1 Point of Care Testing: Blood Glucose: 12/04 22:55 Blood Glucose: High (>450 mg/dL); bm7 Ranges: Intake: 12/05 00:53 IV: 1000ml; Total: 1000ml. vc1 04:59 IV: 275ml; Total: 1275ml. vc1 Outcome: 04:29 Discharge ordered by . ms3 05:04 Discharged to home ambulatory. vc1 05:04 Condition: good 05:04 Discharge instructions given to patient, Instructed on discharge instructions, follow up and referral plans. Demonstrated understanding of instructions, follow-up care. 05:05 Patient left the ED. vc1 Signatures: Siria Bennett 5 Tejinder Anguiano DO DO ms3 Kathy Ramsay, CHARLEY RN 7 Miri Abreu 5 Amalia Ansari RN RN vc1 Corrections: (The following items were deleted from the chart) 12/04 22:50 22:49 Home Meds: Bentyl Oral; [facility] 22:50 22:49 Home Meds: Seroquel Oral; [facility] 22:50 22:49 Home Meds: Zofran Oral; [facility] 22:50 22:49 PMHx: Anemia; 7 7 22:50 22:49 PMHx: Hypertension; [facility] 22:50 22:49 PMHx: Diabetes - IDDM; [facility] 22:50 22:49 PMHx: Pancreatitis; [facility] 22:50 22:49 PMHx: neuropathy; [facility] 22:50 22:49 PMHx: Schizophrenia; [facility] 22:50 22:49 PMHx: Bipolar disorder; [facility] 22:50 22:49 PMHx: Hypothyroidism; [facility] 22:50 22:49 PMHx: "stomach CA cells"; [facility] 22:50 22:49 PMHx: Diabetes mellitus; [facility] 22:50 22:49 PMHx: Hypothyroidism; [facility]
[2021-12-05] MEDS ORDERED: ACETAMINOPHEN 500 MG TAB ONE (04:59)
[2021-12-05 05:32] VITALS: TEMP 97.4
[2021-12-05 05:41] VITALS: BP 142/78; O2SAT 95
--- NOTE | 2021-12-08 08:25 | EKG ---
Test Date: 2021-12-04 Test Time: 23:22:18 Boat Outfitting Supervisor: CARINA MEASUREMENT RESULTS: Intervals: Rate: 106 OH: 182 QRSD: 112 QT: 352 QTc: 467 [place]: P: 66 OH: 182 QRS: 69 T: 61 INTERPRETIVE STATEMENTS: Sinus tachycardia Possible Left atrial enlargement Borderline ECG Compared to ECG 10/26/2020 17:36:11 T-wave abnormality no longer present Electronically Signed On 12-08-21 08:12:49 CDT by Edmund Melendez
== END 2021-12-05 05:05 | disposition home or self-care (01) ==
LOC: ER 22:40
DX: E11.65 Type 2 diabetes mellitus with hyperglycemia (principal); Z79.4 Long term (current) use of insulin; E86.0 Dehydration
CPT/HCPCS: 96361; 93005; 85025; 80048; 36415; 82947 ×3; 96374; 99285; J7030; J2405

== ENCOUNTER 2022-01-14 20:56 | Emergency (ER) | payer OTHER ==
--- OUTSIDE RECORDS SUMMARY | 2022-01-14 21:03 | XMS REPORT | Continuity of Care Document ---
:1970 Author Organization [facility] t Address [address] [place] [address] Care Team Providers Name Role Phone FLORECITA ATKINS Primary Care Physician Unavailable FLORECITA ATIKNS Attending Clinician Unavailable YOLIE LIZARRAGA Attending Clinician Unavailable Florecita Atkins MD Attending Clinician Doctor Unassigned, [place] Attending Clinician Unavailable [place] Yee MD Attending Clinician Unavailable MODESTO YEE Attending Clinician Unavailable MITA RICH Attending Clinician Unavailable Team, [facility] Health Maintenance Attending Clinician Unavaildannielle e Payers Payer Name Policy Type Policy Number Effective Date Expiration Date [facility] [id number] 2019 DUAL COMPLETE HMO 00:00:00 [facility] [id number] 2014 MEDICAID 00:00:00 Problems Condition Condition Condition Status Onset Resolution Last Treating Co mments Source Name Details Category Date Date Treatment Clinician Date Diabetes Diabetes Problem Active Commo n Spirit - [facility] Type 2 Type 2 Problem Active Common diabetes diabetes Spirit mellitus mellitus - CHI with other with other 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 Irritable Irritable Problem Active 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 - [facility]I with with St constipati constipati Farideh kes on on [facility] Other Other Problem Active Common schizophre schizophre Sp sophia danilo danilo [facility] Heavy Heavy Problem Active Common menses menses Spirit [facility] Gastropare Gastropare Problem Active C ommon sis sis [facility] Diabetic Diabetic Problem Active Commo n neuropathy neuropathy Sp sophia [facility] long term long term Problem Active Com mon current current Spirit use of use of [facility] insulin insulin [facility] Insomnia Insomnia Problem Active Commo n [facility] Osteoarthr Osteoarthr Problem Active C ommon itis itis [facility] Anemia Anemia Problem Active Common Spirit [facility] Schizophre Schizophre Disease Active U nivers danilo danilo [facility] Neuropathy Neuropathy Disease Active U nivers [facility] Hepatitis Hepatitis Disease Active Uni vers C C [facility] DMII DMII Disease Active Univers (diabetes (diabetes [place], [place] type 2[place] type 2[place] [facility] Bipolar 1 Bipolar 1 Disease Active Uni vers disorder disorder [facility] Neuropathy Neuropathy Problem Active C ommon Spirit [facility] Hyperlipid Hyperlipid Problem Active C ommon emia emia [facility] Allergies, Adverse Reactions, Alerts Allergy Allergy Status Severity Reaction(s) Onset Inactive Treating Comm ents Source Name Type Date Date Clinician NO KNOWN Drug Active Univers ALLERGIE Class [facility] Social History Social Habit Start Date Stop Date Quantity Comments Source History of tobacco Cigarette Smoker University of use [facility] Exposure to 2022-01-02 2022-01-12 Not sure [facility]-CoV-2 (event) 00:00:00 14:45:00 [facility] Alcohol intake 2022-01-12 2022-01-12 Current University of 00:00:00 00:00:00 non-drinker of [facility] alcohol Branch (finding) Cigarettes smoked 2019-12-11 2019-12-11 Univers ity of current (pack per 00:00:00 00:00:00 ) - Reported Branch Cigarette 2019-12-11 2019-12-11 University of pack-years 00:00:00 00:00:00 [facility] Tobacco use and 2019-12-11 2019-12-11 Former smokeless Uni versity of exposure 00:00:00 00:00:00 [facility] Sex Ass[birth year] At [birth year] Universit y of 00:00:00 00:00:00 [facility] Smoking Status Start Date Stop Date Source Ex-smoker 2019-12-11 00:00:00 2019-12-11 00:00:00 Universi ty of [facility] Medications Ordered Filled Start Stop Current Ordering Indication Dosage Frequency Signature Comments Components Source Medication Medication Date Date Medication? Clinician (SIG) Name Name zolpidem 10 Yes [id number] 10mg Take 1 Univers mg tablet 9-20 tablet by ity o f 00:00: mouth at [place] [address] bedtime as Medical needed for Branch Insomnia. gabapentin Yes [id number] 300mg Take 1 Univers 300 mg 9-20 capsule by ity of capsule 00:00: mouth in [place] [address] the Medical morning Branch and 1 capsule in the evening. pantoprazol 2021- Yes [id number] 40mg Take 1 Univers e 40 mg EC 9-20 tablet by ity of tablet 00:00: mouth in [place] [address] the Medical morning. Branch dicyclomine Yes [id number] 20mg Take 1 Univers 20 mg 9-20 tablet by ity of tablet 00:00: mouth in [place] [address] the Medical morning Branch and 1 tablet in the evening. zolpidem 10 Yes [id number] 10mg Take 1 Univers mg tablet 9-20 tablet by ity o f 00:00: mouth at [place] [address] bedtime as Medical needed for Branch Insomnia. gabapentin 2021- Yes [id number] 300mg Take 1 Univers 300 mg 9-20 capsule by ity of capsule 00:00: mouth in [place] [address] the Medical morning Branch and 1 capsule in the evening. pantoprazol 2021-0 Yes [id number] 40mg Take 1 Univers e 40 mg EC 9-20 tablet by ity of tablet 00:00: mouth in [place] 00 the Medical morning. Branch dicyclomine 2021-0 Yes [id number] 20mg Take 1 Univers 20 mg 9-20 tablet by ity of tablet 00:00: mouth in [place] 00 the Medical morning Branch and 1 tablet in the evening. zolpidem 10 2021-0 Yes [id number] 10mg Take 1 Univers mg tablet 9-20 tablet by ity o f 00:00: mouth at [place] 00 bedtime as Medical needed for Branch Insomnia. gabapentin 0 Yes [id number] 300mg Take 1 Univers 300 mg 9-20 capsule by ity of capsule 00:00: mouth in [place] 00 the Medical morning Branch and 1 capsule in the evening. pantoprazol 0 Yes [id number] 40mg Take 1 Univers e 40 mg EC 9-20 tablet by ity of tablet 00:00: mouth in [place] 00 the Medical morning. Branch dicyclomine 0 Yes [id number] 20mg Take 1 Univers 20 mg 9-20 tablet by ity of tablet 00:00: mouth in [place] 00 the Medical morning Branch and 1 tablet in the evening. FUROSEMIDE 0 Yes [id number] 20mg TAKE 1 Univers 20 mg 9-19 TABLET BY ity of tablet 00:00: MOUTH [place] 00 EVERY Medical OTHER DAY Branch ATORVASTATI 2021-0 Yes [id number] TAKE 1 Univers N 10 mg 9-19 TABLET BY ity of tablet 00:00: MOUTH [place] 00 EVERYDAY Medical AT BEDTIME Branch FUROSEMIDE 2021-0 Yes [id number] 20mg TAKE 1 Univers 20 mg 9-19 TABLET BY ity of tablet 00:00: MOUTH [place] 00 EVERY Medical OTHER DAY Branch ATORVASTATI 2021-0 Yes [id number] TAKE 1 Univers N 10 mg 9-19 TABLET BY ity of tablet 00:00: MOUTH [place] 00 EVERYDAY Medical AT BEDTIME Branch FUROSEMIDE 2021-0 Yes [id number] 20mg TAKE 1 Univers 20 mg 9-19 TABLET BY ity of tablet 00:00: MOUTH [place] 00 EVERY Medical OTHER DAY Branch ATORVASTATI 2021-0 Yes [id number] TAKE 1 Univers N 10 mg 9-19 TABLET BY ity of tablet 00:00: MOUTH [place] 00 EVERYDAY Medical AT BEDTIME Branch FUROSEMIDE 2021-0 Yes [id number] 20mg TAKE 1 Univers 20 mg 9-19 TABLET BY ity of tablet 00:00: MOUTH [place] 00 EVERY Medical OTHER DAY Branch ATORVASTATI 2021-0 Yes [id number] TAKE 1 Univers N 10 mg 9-19 TABLET BY ity of tablet 00:00: MOUTH [place] 00 EVERYDAY Medical AT BEDTIME Branch FUROSEMIDE 2021-0 Yes [id number] 20mg TAKE 1 Univers 20 mg 9-19 TABLET BY ity of tablet 00:00: MOUTH [place] 00 EVERY Medical OTHER DAY Branch ATORVASTATI 2021-0 Yes [id number] TAKE 1 Univers N 10 mg 9-19 TABLET BY ity of tablet 00:00: MOUTH [place] 00 EVERYDAY Medical AT BEDTIME Branch DEXLANSOPRA 2021-0 Yes [id number] TAKE 1 Univers ZOLE 60 mg 9-07 CAPSULE BY ity of capsule 00:00: MOUTH [place] 00 EVERY DAY Medical Branch DEXLANSOPRA 2021-0 Yes [id number] TAKE 1 Univers ZOLE 60 mg 9-07 CAPSULE BY ity of capsule 00:00: MOUTH [place] 00 EVERY DAY Medical Branch DEXLANSOPRA 2021-0 Yes [id number] TAKE 1 Univers ZOLE 60 mg 9-07 CAPSULE BY ity of capsule 00:00: MOUTH [place] 00 EVERY DAY Medical Branch DEXLANSOPRA 2021-0 Yes [id number] TAKE 1 Univers ZOLE 60 mg 9-07 CAPSULE BY ity of capsule 00:00: MOUTH [place] 00 EVERY DAY Medical Branch DEXLANSOPRA 2021-0 2021- No [id number] TAKE 1 Univers ZOLE 60 mg 9-07 09-20 CAPSULE BY it y of capsule 00:00: 00:00 MOUTH [place] 00 :00 EVERY DAY Medical Branch DEXLANSOPRA 2021-0 2021- No [id number] TAKE 1 Univers ZOLE 60 mg 9-07 09-20 CAPSULE BY it y of capsule 00:00: 00:00 MOUTH [place] 00 :00 EVERY DAY Medical Branch gabapentin 2021-0 2021- No 300mg Take 300 U nivers 300 mg 8-25 09-20 mg by ity of capsule 00:00: 00:00 mouth in [place] 00 :00 the Medical morning Branch and 300 mg in the evening. gabapentin 2021-0 2021- No 300mg Take 300 U nivers 300 mg 8-25 09-20 mg by ity of capsule 00:00: 00:00 mouth in [place] 00 :00 the Medical morning Branch and 300 mg in the evening. FUROSEMIDE 2022-0 Yes [id number] 20mg TAKE 1 Univers 20 mg 8-22 TABLET BY ity of tablet 00:00: MOUTH [place] 00 EVERY Medical OTHER DAY Branch FUROSEMIDE 2022-0 Yes [id number] 20mg TAKE 1 Univers 20 mg 8-22 TABLET BY ity of tablet 00:00: MOUTH [place] 00 EVERY Medical OTHER DAY Branch FUROSEMIDE 2022-0 Yes [id number] 20mg TAKE 1 Univers 20 mg 8-22 TABLET BY ity of tablet 00:00: MOUTH [place] 00 EVERY Medical OTHER DAY Branch FUROSEMIDE 2022-0 Yes [id number] 20mg TAKE 1 Univers 20 mg 8-22 TABLET BY ity of tablet 00:00: MOUTH [place] 00 EVERY Medical OTHER DAY Branch FUROSEMIDE 2022-0 2022- No [id number] 20mg TAKE 1 Univers 20 mg 8-22 09-19 TABLET BY ity of tablet 00:00: 00:00 MOUTH [place] 00 :00 EVERY Medical OTHER DAY Branch FUROSEMIDE 2022-0 Yes [id number] 20mg TAKE 1 Univers 20 mg 7-25 TABLET BY ity of tablet 00:00: MOUTH [place] 00 EVERY Medical OTHER DAY Branch LISINOPRIL 2022-0 Yes [id number] TAKE 1 U nivers 5 mg tablet 7-25 TABLET BY ity of 00:00: MOUTH [place] 00 EVERY DAY Medical Branch FUROSEMIDE 2022-0 Yes [id number] 20mg TAKE 1 Univers 20 mg 7-25 TABLET BY ity of tablet 00:00: [facility] 00 EVERY Medical OTHER DAY Branch LISINOPRIL 2022-0 Yes [id number] TAKE 1 U nivers 5 mg tablet 7-25 TABLET BY ity of 00:00: MOUTH [place] 00 EVERY DAY Medical Branch LISINOPRIL 2022-0 Yes [id number] TAKE 1 U nivers 5 mg tablet 7-25 TABLET BY ity of 00:00: MOUTH [place] 00 EVERY DAY Medical Branch LISINOPRIL 2022-0 Yes [id number] TAKE 1 U nivers 5 mg tablet 7-25 TABLET BY ity of 00:00: MOUTH [place] 00 EVERY DAY Medical Branch LISINOPRIL 2022-0 Yes [id number] TAKE 1 U nivers 5 mg tablet 7-25 TABLET BY ity of 00:00: MOUTH [place] 00 EVERY DAY Medical Branch LISINOPRIL 2021-0 Yes [id number] TAKE 1 U nivers 5 mg tablet 7-25 TABLET BY ity of 00:00: MOUTH [place] EVERY DAY Medical Branch LISINOPRIL 2021-0 Yes [id number] TAKE 1 U nivers 5 mg tablet 7-25 TABLET BY ity of 00:00: MOUTH [place] EVERY DAY Medical Branch LISINOPRIL 2021-0 Yes [id number] TAKE 1 U nivers 5 mg tablet 7-25 TABLET BY ity of 00:00: MOUTH [place] EVERY DAY Medical Branch LISINOPRIL 2021-0 Yes [id number] TAKE 1 U nivers 5 mg tablet 7-25 TABLET BY ity of 00:00: MOUTH [place] EVERY DAY Medical Branch LISINOPRIL 2021-0 Yes [id number] TAKE 1 U nivers 5 mg tablet 7-25 TABLET BY ity of 00:00: MOUTH [place] EVERY DAY Medical Branch LISINOPRIL 2021-0 Yes [id number] TAKE 1 U nivers 5 mg tablet 7-25 TABLET BY ity of 00:00: MOUTH [place] EVERY DAY Medical Branch FUROSEMIDE 2021-0 2022- No [id number] 20mg TAKE 1 Univers 20 mg 7-25 08-22 TABLET BY ity of tablet 00:00: 00:00 MOUTH [place] 00 :00 EVERY Medical OTHER DAY Branch ZOLPIDEM 10 2021-0 Yes [id number] TAKE 1 Univers mg tablet 7-12 TABLET BY ity o f 00:00: MOUTH [place] EVERY DAY Medical AT BEDTIME Branch NEEDED FOR INSOMNIA ZOLPIDEM 10 2021-0 Yes [id number] TAKE 1 Univers mg tablet 7-12 TABLET BY ity o f 00:00: MOUTH [place] EVERY DAY Medical AT BEDTIME Branch NEEDED FOR INSOMNIA ZOLPIDEM 10 2021-0 Yes [id number] TAKE 1 Univers mg tablet 7-12 TABLET BY ity o f 00:00: MOUTH [place] EVERY DAY Medical AT BEDTIME Branch NEEDED FOR INSOMNIA ZOLPIDEM 10 2021-0 Yes [id number] TAKE 1 Univers mg tablet 7-12 TABLET BY ity o f 00:00: MOUTH [place] 00 EVERY DAY Medical AT BEDTIME Branch NEEDED FOR INSOMNIA ZOLPIDEM 10 2021-0 Yes [id number] TAKE 1 Univers mg tablet 7-12 TABLET BY ity o f 00:00: MOUTH [place] 00 EVERY DAY Medical AT BEDTIME Branch NEEDED FOR INSOMNIA ZOLPIDEM 10 2021-0 Yes [id number] TAKE 1 Univers mg tablet 7-12 TABLET BY ity o f 00:00: MOUTH [place] 00 EVERY DAY Medical AT BEDTIME Branch NEEDED FOR INSOMNIA ZOLPIDEM 10 2021-0 Yes [id number] TAKE 1 Univers mg tablet 7-12 TABLET BY ity o f 00:00: MOUTH [place] 00 EVERY DAY Medical AT BEDTIME Branch NEEDED FOR INSOMNIA ZOLPIDEM 10 2021-0 Yes [id number] TAKE 1 Univers mg tablet 7-12 TABLET BY ity o f 00:00: MOUTH [place] 00 EVERY DAY Medical AT BEDTIME Branch NEEDED FOR INSOMNIA ZOLPIDEM 10 2021-0 Yes [id number] TAKE 1 Univers mg tablet 7-12 TABLET BY ity o f 00:00: MOUTH [place] 00 EVERY DAY Medical AT BEDTIME Branch NEEDED FOR INSOMNIA ZOLPIDEM 10 2021-0 2022- No [id number] TAKE 1 Univers mg tablet 7-12 -20 TABLET BY ity of 00:00: 00:00 MOUTH [place] 00 :00 EVERY DAY Medical AT BEDTIME Branch NEEDED FOR INSOMNIA ZOLPIDEM 10 2021-0 2022- No [id number] TAKE 1 Univers mg tablet 7-12 09-20 TABLET BY ity of 00:00: 00:00 MOUTH [place] 00 :00 EVERY DAY Medical AT BEDTIME Branch NEEDED FOR INSOMNIA QUETIAPINE 2021-0 Yes [id number] TAKE 1 U nivers 300 mg 7-07 TABLET BY ity of tablet 00:00: MOUTH 00 TWICE A Medical DAY Branch QUETIAPINE 2-0 Yes [id number] TAKE 1 U nivers 300 mg 7-07 TABLET BY ity of tablet 00:00: MOUTH 00 TWICE A Medical DAY Branch QUETIAPINE 2-0 Yes [id number] TAKE 1 U nivers 300 mg 7-07 TABLET BY ity of tablet 00:00: MOUTH 00 TWICE A Medical DAY Branch QUETIAPINE 2-0 Yes [id number] TAKE 1 U nivers 300 mg 7-07 TABLET BY ity of tablet 00:00: MOUTH 00 TWICE A Medical DAY Branch QUETIAPINE 2-0 Yes [id number] TAKE 1 U nivers 300 mg 7-07 TABLET BY ity of tablet 00:00: MOUTH 00 TWICE A Medical DAY Branch QUETIAPINE 2021-0 Yes [id number] TAKE 1 U nivers 300 mg 7-07 TABLET BY ity of tablet 00:00: MOUTH TWICE A Medical DAY Branch QUETIAPINE 2021-0 Yes [id number] TAKE 1 U nivers 300 mg 7-07 TABLET BY ity of tablet 00:00: MOUTH TWICE A Medical DAY Branch QUETIAPINE 2021-0 Yes [id number] TAKE 1 U nivers 300 mg 7-07 TABLET BY ity of tablet 00:00: MOUTH TWICE A Medical DAY Branch QUETIAPINE 2021-0 Yes [id number] TAKE 1 U nivers 300 mg 7-07 TABLET BY ity of tablet 00:00: MOUTH TWICE A Medical DAY Branch QUETIAPINE 2021-0 Yes [id number] TAKE 1 U nivers 300 mg 7-07 TABLET BY ity of tablet 00:00: MOUTH TWICE A Medical DAY Branch QUETIAPINE 2021-0 Yes [id number] TAKE 1 U nivers 300 mg 7-07 TABLET BY ity of tablet 00:00: MOUTH TWICE A Medical DAY Branch QUETIAPINE 2021-0 Yes [id number] TAKE 1 U nivers 300 mg 7-07 TABLET BY ity of tablet 00:00: MOUTH TWICE A Medical DAY Branch ALBUTEROL 0 Yes INHALE 1 Univ ers [...] Med ical 6 HOURS Branch NEEDED ALBUTEROL 2022-0 Yes INHALE 1 Univ ers 90 7-05 TO 2 PUFFS ity of mcg/actuati 00:00: BY MOUTH [place] on inhaler 00 EVERY 4 TO Med ical 6 HOURS Branch NEEDED ALBUTEROL 202-0 Yes INHALE 1 Univ ers 90 7-05 [...] Med ical 6 HOURS Branch NEEDED linaCLOtide 2022-0 Yes [id number] TAKE 1 Univers (LINZESS) 6-27 CAPSULE BY ity of 290 mcg Cap 00:00: MOUTH ONCE DAILY 30 Medical MINUTES Branch BEFORE THE FIRST MEAL OF THE DAY linaCLOtide 2021-0 Yes [id number] TAKE 1 Univers (LINZESS) 6-27 CAPSULE BY ity of 290 mcg Cap 00:00: MOUTH ONCE DAILY 30 Medical MINUTES Branch BEFORE THE FIRST MEAL OF THE DAY linaCLOtide 2022-0 Yes [id number] TAKE 1 Univers (LINZESS) 6-27 CAPSULE BY ity of 290 mcg Cap 00:00: MOUTH ONCE [place] 00 DAILY 30 Medical MINUTES Branch BEFORE THE FIRST MEAL OF THE DAY linaCLOtide Yes [id number] TAKE 1 Univers (LINZESS) 6-27 CAPSULE BY ity of 290 mcg Cap 00:00: MOUTH ONCE [place] 00 DAILY 30 Medical MINUTES Branch BEFORE THE FIRST MEAL OF THE DAY linaCLOtide Yes [id number] TAKE 1 Univers (LINZESS) 6-27 CAPSULE BY ity of 290 mcg Cap 00:00: MOUTH ONCE [place] 00 DAILY 30 Medical MINUTES Branch BEFORE THE FIRST MEAL OF THE DAY linaCLOtide Yes [id number] TAKE 1 Univers (LINZESS) 6-27 CAPSULE BY ity of 290 mcg Cap 00:00: MOUTH ONCE [place] 00 DAILY 30 Medical MINUTES Branch BEFORE THE FIRST MEAL OF THE DAY linaCLOtide Yes [id number] TAKE 1 Univers (LINZESS) 6-27 CAPSULE BY ity of 290 mcg Cap 00:00: MOUTH ONCE [place] 00 DAILY 30 Medical MINUTES Branch BEFORE THE FIRST MEAL OF THE DAY linaCLOtide Yes [id number] TAKE 1 Univers (LINZESS) 6-27 CAPSULE BY ity of 290 mcg Cap 00:00: MOUTH ONCE [place] 00 DAILY 30 Medical MINUTES Branch BEFORE THE FIRST MEAL OF THE DAY linaCLOtide Yes [id number] TAKE 1 Univers (LINZESS) 6-27 CAPSULE BY ity of 290 mcg Cap 00:00: MOUTH ONCE [place] 00 DAILY 30 Medical MINUTES Branch BEFORE THE FIRST MEAL OF THE DAY linaCLOtide Yes [id number] TAKE 1 Univers (LINZESS) 6-27 CAPSULE BY ity of 290 mcg Cap 00:00: MOUTH ONCE [place] 00 DAILY 30 Medical MINUTES Branch BEFORE THE FIRST MEAL OF THE DAY linaCLOtide 0 Yes [id number] TAKE 1 Univers (LINZESS) 6-27 CAPSULE BY ity of 290 mcg Cap 00:00: MOUTH ONCE [place] 00 DAILY 30 Medical MINUTES Branch BEFORE THE FIRST MEAL OF THE DAY linaCLOtide 0 Yes [id number] TAKE 1 Univers (LINZESS) 6-27 CAPSULE BY ity of 290 mcg Cap 00:00: MOUTH ONCE [place] 00 DAILY 30 Medical MINUTES Branch BEFORE THE FIRST MEAL OF THE DAY Insulin 2021-0 Yes [id number] INJECT 28 Univers NPH-Regular 6-05 9101 UNITS IN ity of Human Rec 00:00: THE IN THE [place] (HUMULIN 00 MORNING Medical 70/30 U-100 AND 25 Branch KWIKPEN) UNITS IN 100 unit/mL IN THE (70-30) EVENING injection Insulin 2021-0 Yes [id number] INJECT 28 Univers NPH-Regular 6-05 9101 UNITS IN ity of Human Rec 00:00: THE IN THE [place] (HUMULIN 00 MORNING Medical 70/30 U-100 AND 25 Branch KWIKPEN) UNITS IN 100 unit/mL IN THE (70-30) EVENING injection Insulin 2021-0 Yes [id number] INJECT 28 Univers NPH-Regular 6-05 9101 UNITS IN ity of Human Rec 00:00: THE IN THE [place] (HUMULIN 00 MORNING Medical 70/30 U-100 AND 25 Branch KWIKPEN) UNITS IN 100 unit/mL IN THE (70-30) EVENING injection Insulin 2021-0 Yes [id number] INJECT 28 Univers NPH-Regular 6-05 9101 UNITS IN ity of Human Rec 00:00: THE IN THE [place] (HUMULIN 00 MORNING Medical 70/30 U-100 AND 25 Branch KWIKPEN) UNITS IN 100 unit/mL IN THE (70-30) EVENING injection Insulin 2021-0 Yes [id number] INJECT 28 Univers NPH-Regular 6-05 9101 UNITS IN ity of Human Rec 00:00: THE IN THE [place] (HUMULIN 00 MORNING Medical 70/30 U-100 AND 25 Branch KWIKPEN) UNITS IN 100 unit/mL IN THE (70-30) EVENING injection Insulin 2021-0 Yes [id number] INJECT 28 Univers NPH-Regular 6-05 9101 UNITS IN ity of Human Rec 00:00: THE IN THE [place] (HUMULIN 00 MORNING Medical 70/30 U-100 AND 25 Branch KWIKPEN) UNITS IN 100 unit/mL IN THE (70-30) EVENING injection Insulin 2021-0 Yes [id number] INJECT 28 Univers NPH-Regular 6-05 9101 UNITS IN ity of Human Rec 00:00: THE IN THE [place] (HUMULIN 00 MORNING Medical 70/30 U-100 AND 25 Branch KWIKPEN) UNITS IN 100 unit/mL IN THE (70-30) EVENING injection Insulin 2021-0 Yes [id number] INJECT 28 Univers NPH-Regular 6-05 9101 UNITS IN ity of Human Rec 00:00: THE IN THE [place] (HUMULIN 00 MORNING Medical 70/30 U-100 AND 25 Branch KWIKPEN) UNITS IN 100 unit/mL IN THE (70-30) EVENING injection Insulin 2021-0 Yes [id number] INJECT 28 Univers NPH-Regular 6-05 9101 UNITS IN ity of Human Rec 00:00: THE IN THE [place] (HUMULIN 00 MORNING Medical 70/30 U-100 AND 25 Branch KWIKPEN) UNITS IN 100 unit/mL IN THE (70-30) EVENING injection Insulin 2021-0 Yes [id number] INJECT 28 Univers NPH-Regular 6-05 9101 UNITS IN ity of Human Rec 00:00: THE IN THE [place] (HUMULIN 00 MORNING Medical 70/30 U-100 AND 25 Branch KWIKPEN) UNITS IN 100 unit/mL IN THE (70-30) EVENING injection Insulin 2021-0 Yes [id number] INJECT 28 Univers NPH-Regular 6-05 9101 UNITS IN ity of Human Rec 00:00: THE IN THE [place] (HUMULIN 00 MORNING Medical 70/30 U-100 AND 25 Branch KWIKPEN) UNITS IN 100 unit/mL IN THE (70-30) EVENING injection Insulin 2021-0 Yes [id number] INJECT 28 Univers NPH-Regular 6-05 9101 UNITS IN ity of Human Rec 00:00: THE IN THE [place] (HUMULIN 00 MORNING Medical 70/30 U-100 AND 25 Branch KWIKPEN) UNITS IN 100 unit/mL IN THE (70-30) EVENING injection LISINOPRIL Yes TAKE 1 Unive rs 10 mg 5-17 TABLET BY ity of tablet 00:00: MOUTH ONCE [place] 00 DAILY Medical Branch Insulin Yes USE TO Univers [place], 5-17 INJECT ity of Disposable, 00:00: INSULIN 2 [place] (BD 00 TIMES Medical ULTRAFINE DAILY. Branch III MINI DX:E11.65 PEN) 31 gauge x 3/16" Ndle LISINOPRIL Yes TAKE 1 Unive rs 10 mg 5-17 TABLET BY ity of tablet 00:00: MOUTH ONCE [place] 00 DAILY Medical Branch Insulin Yes USE TO Univers [place], 5-17 INJECT ity of Disposable, 00:00: INSULIN 2 [place] ([place] 00 TIMES Medical ULTRAFINE DAILY. Branch III MINI DX:E11.65 PEN) 31 gauge x 3/16" Ndle LISINOPRIL 0 Yes TAKE 1 Unive rs 10 mg 5-17 TABLET BY ity of tablet 00:00: MOUTH ONCE DAILY Medical Branch Insulin Yes USE TO Univers [place], 5-17 INJECT ity of Disposable, 00:00: INSULIN 2 [place] (BD 00 TIMES Medical ULTRAFINE DAILY. Branch III MINI DX:E11.65 PEN) 31 gauge x 3/16" Ndle LISINOPRIL 0 Yes TAKE 1 Unive rs 10 mg 5-17 TABLET BY ity of tablet 00:00: MOUTH ONCE DAILY Medical Branch Insulin Yes USE TO Univers [place], 5-17 INJECT ity of Disposable, 00:00: INSULIN 2 [place] (BD 00 TIMES Medical ULTRAFINE DAILY. Branch III MINI DX:E11.65 PEN) 31 gauge x 3/16" Ndle LISINOPRIL 0 Yes TAKE 1 Unive rs 10 mg 5-17 TABLET BY ity of tablet 00:00: MOUTH ONCE DAILY Medical Branch Insulin Yes USE TO Univers [place], 5-17 INJECT ity of Disposable, 00:00: INSULIN 2 [place] (BD 00 TIMES Medical ULTRAFINE DAILY. Branch III MINI DX:E11.65 PEN) 31 gauge x 3/16" Ndle LISINOPRIL 0 Yes TAKE 1 Unive rs 10 mg 5-17 TABLET BY ity of tablet 00:00: MOUTH ONCE DAILY Medical Branch Insulin 0 Yes USE TO Univers [place], 5-17 INJECT ity of Disposable, 00:00: INSULIN 2 [place] (BD 00 TIMES Medical ULTRAFINE DAILY. Branch III MINI DX:E11.65 PEN) 31 gauge x 3/16" Ndle LISINOPRIL 0 Yes TAKE 1 Unive rs 10 mg 5-17 TABLET BY ity of tablet 00:00: MOUTH ONCE DAILY Medical Branch Insulin 0 Yes USE TO Univers [place], 5-17 INJECT ity of Disposable, 00:00: INSULIN 2 [place] (BD 00 TIMES Medical ULTRAFINE DAILY. Branch III MINI DX:E11.65 PEN) 31 gauge x 3/16" Ndle LISINOPRIL 0 Yes TAKE 1 Unive rs 10 mg 5-17 TABLET BY ity of tablet 00:00: MOUTH ONCE [place] DAILY Medical Branch Insulin 0 Yes USE TO [facility] [place], 5-17 INJECT ity of Disposable, 00:00: INSULIN 2 [place] ([place] 00 TIMES Medical ULTRAFINE DAILY. Branch III MINI DX:E11.65 PEN) 31 gauge x 3/16" Ndle LISINOPRIL 0 Yes TAKE 1 Unive rs 10 mg 5-17 TABLET BY ity of tablet 00:00: MOUTH ONCE [place] 00 DAILY Medical Branch Insulin Yes USE TO [facility] [place], 5-17 INJECT ity of Disposable, 00:00: INSULIN 2 [place] (BD 00 TIMES Medical ULTRAFINE DAILY. Branch III MINI DX:E11.65 PEN) 31 gauge x 3/16" Ndle LISINOPRIL Yes TAKE 1 Unive rs 10 mg 5-17 TABLET BY ity of tablet 00:00: MOUTH ONCE [place] DAILY Medical Branch Insulin Yes USE TO [facility] [place], 5-17 INJECT ity of Disposable, 00:00: INSULIN 2 [place] (BD 00 TIMES Medical ULTRAFINE DAILY. Branch III MINI DX:E11.65 PEN) 31 gauge x 3/16" Ndle LISINOPRIL 0 Yes TAKE 1 Unive rs 10 mg 5-17 TABLET BY ity of tablet 00:00: MOUTH ONCE DAILY Medical Branch Insulin Yes USE TO Univers [place], 5-17 INJECT ity of Disposable, 00:00: INSULIN 2 [place] (BD 00 TIMES Medical ULTRAFINE DAILY. Branch III MINI DX:E11.65 PEN) 31 gauge x 3/16" Ndle LISINOPRIL Yes TAKE 1 Un[facility] rs 10 mg 5-17 TABLET BY ity of tablet 00:00: MOUTH ONCE [place] DAILY Medical Branch Insulin 0 Yes USE TO [facility] [place], 5-17 INJECT ity of Disposable, 00:00: INSULIN 2 [place] (BD 00 TIMES Medical ULTRAFINE DAILY. Branch III MINI DX:E11.65 PEN) 31 gauge x 3/16" Ndle Insulin 0 Yes Use as [facility] Syringe-Nee 4-26 directed ity of dle U-100 1 00:00: to inject [place] mL 27 gauge 00 insulin 4 Med ical x 5/8" Syrg times Branch daily for E10.65 Insulin 2021-0 Yes Use as [facility] Syringe-Nee 4-26 directed ity of dle U-100 1 00:00: to inject [place] mL 27 gauge 00 insulin 4 Med ical x 5/8" Syrg times Branch daily for E10.65 Insulin 2021-0 Yes Use as [facility] Syringe-Nee 4-26 directed ity of dle U-100 1 00:00: to inject [place] mL 27 gauge 00 insulin 4 Med ical x 5/8" Syrg times Branch daily for E10.65 Insulin 2021-0 Yes Use as [facility] Syringe-Nee 4-26 directed [...] Syrg times Branch daily for E10.65 Insulin 2021-0 Yes Use as [facility] Syringe-Nee 4-26 directed ity of dle U-100 1 00:00: to inject [place] mL 27 gauge 00 insulin 4 Med ical x 5/8" Syrg times Branch daily for E10.65 Insulin 2021-0 Yes Use as [facility] Syringe-Nee 4-26 directed ity of dle U-100 1 00:00: to inject [place] mL 27 gauge 00 insulin 4 Med ical x 5/8" Syrg times Branch daily for E10.65 Insulin 2021-0 Yes Use as [facility] Syringe-Nee 4-26 directed ity of dle U-100 1 00:00: to inject [place] mL 27 gauge 00 insulin 4 Med ical x 5/8" Syrg times Branch daily for E10.65 Insulin 2021-0 Yes Use as [facility] Syringe-Nee 4-26 directed ity of dle U-100 1 00:00: to inject [place] mL 27 gauge 00 insulin 4 Med ical x 5/8" Syrg times Branch daily for E10.65 Insulin 2021-0 Yes Use as [facility] Syringe-Nee 4-26 directed ity of dle U-100 1 00:00: to inject [place] mL 27 gauge 00 insulin 4 Med ical x 5/8" Syrg times Branch daily for E10.65 Blood-Gluco 0 Yes Use as Univ ers se Sensor [...] 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) E10.65 Misc Blood-Gluco 2021-0 Yes Use as [...] 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) E10.65 Misc Blood-Gluco 2021-0 Yes Use as Univ ers se Sensor 4-06 directed ity of (DEXCOM G6 00:00: to check [place] as SENSOR) 00 blood Medical Barb sugars for Branch dx E10.65 Blood-Gluco 2022-0 Yes Use as [facility] ers se 4-06 directed ity of Transmitter 00:00: [place] check [place] (DEXCOM G6 00 blood Medical TRANSMITTER sugars for Br anch ) Barb dx E10.65 Blood-Gluco 2022-0 Yes Use as Univ ers se 4-06 directed ity of Meter,[place]esha[place] 00:00: [place] check [place] nuous 00 blood 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) E10.65 Misc Blood-Gluco 2022-0 Yes Use as Univ ers se Sensor 4-06 directed ity of (DEXCOM G6 00:00: to check [place] as SENSOR) 00 blood Medical Barb sugars for Branch dx E10.65 Blood-Gluco 2022-0 Yes Use as [facility] ers se 4-06 directed ity of Transmitter 00:00: to check [place] (DEXCOM G6 00 blood Medical TRANSMITTER sugars for Br anch ) Barb dx E10.65 Blood-Gluco 2022-0 Yes Use as Univ ers se 4-06 directed ity of Meter,Keshawn 00:00: to check [place] nuous 00 blood 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) E10.65 Misc Blood-Gluco 2022-0 Yes Use as Univ ers se Sensor 4-06 directed ity of (DEXCOM G6 00:00: to check [place] as SENSOR) 00 blood Medical Barb sugars for Branch dx E10.65 Blood-Gluco 2022-0 Yes Use as [facility] ers se 4-06 directed ity of Transmitter 00:00: to check [place] (DEXCOM G6 00 blood Medical TRANSMITTER sugars for Br anch ) Barb dx E10.65 Blood-Gluco 2022-0 Yes Use as Univ ers se 4-06 directed ity of Meter,Keshawn 00:00: to check [place] nuous 00 blood 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) E10.65 Misc Blood-Gluco 2022-0 Yes Use as Univ ers se Sensor 4-06 directed ity of (DEXCOM G6 00:00: to check [place] as SENSOR) 00 blood Medical Barb sugars for Branch dx E10.65 Blood-Gluco 2022-0 Yes Use as Univ ers se 4-06 directed ity of Transmitter 00:00: to check [place] (DEXCOM G6 00 blood Medical TRANSMITTER sugars for Br anch ) Barb dx E10.65 Blood-Gluco 2022-0 Yes Use as Univ ers se 4-06 directed ity of Meter,Keshawn 00:00: to check [place] nuous 00 blood 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) E10.65 Misc Blood-Gluco 2022-0 Yes Use as Univ ers se Sensor 4-06 directed ity of (DEXCOM G6 00:00: to check [place] as SENSOR) 00 blood Medical Barb sugars for Branch dx E10.65 Blood-Gluco 2022-0 Yes Use as [facility] ers se 4-06 directed ity of Transmitter 00:00: to check [place] (DEXCOM G6 00 blood Medical TRANSMITTER sugars for Br anch ) Barb dx E10.65 Blood-Gluco 2022-0 Yes Use as Univ ers se 4-06 directed ity of Meter,Keshawn 00:00: to check [place] nuous 00 blood 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) E10.65 Misc Blood-Gluco 2022-0 Yes Use as Univ ers se Sensor 4-06 directed ity of (DEXCOM G6 00:00: to check [place] as SENSOR) 00 blood Medical Barb sugars for Branch dx E10.65 Blood-Gluco 2022-0 Yes Use as [facility] ers se 4-06 directed ity of Transmitter 00:00: to check [place] (DEXCOM G6 00 blood Medical TRANSMITTER sugars for Br anch ) Barb dx E10.65 Blood-Gluco 2022-0 Yes Use as [facility] ers se 4-06 directed ity of Meter,Keshawn 00:00: to check [place] nuous 00 blood 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) E10.65 Misc Blood-Gluco 2022-0 Yes Use as Univ ers se Sensor 4-06 directed ity of (DEXCOM G6 00:00: to check [place] as SENSOR) 00 blood Medical Barb sugars for Branch dx E10.65 Blood-Gluco 2022-0 Yes Use as [facility] ers se 4-06 directed ity of Transmitter 00:00: to check [place] (DEXCOM G6 00 blood Medical TRANSMITTER sugars for Br anch ) Barb dx E10.65 Blood-Gluco 2022-0 Yes Use as [facility] ers se 4-06 directed ity of Meter,Keshawn 00:00: to check [place] nuous 00 blood 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 Medical DOM 2 E10.65 Branch SENSOR) Kit flash 2022-0 Yes [id number] 1{kit} 1 Kit Un rl glucose 4-04 9101 every 14 ity of sensor 00:00: (fourteen) [place] (FREESTYLE 00 days. Medical DOM 2 E10.65 Branch SENSOR) Kit flash 2022-0 Yes [id number] 1{kit} 1 Kit Un rl glucose 4-04 9101 every 14 ity of sensor 00:00: (fourteen) [place] (FREESTYLE 00 days. Medical DOM 2 E10.65 Branch SENSOR) Kit flash 2022-0 Yes [id number] 1{kit} 1 Kit Un rl glucose 4-04 9101 every 14 ity of sensor 00:00: (fourteen) [place] (FREESTYLE 00 days. Medical DOM 2 E10.65 Branch SENSOR) Kit flash 2022-0 Yes [id number] 1{kit} 1 Kit Un rl glucose 4-04 9101 every 14 ity of sensor 00:00: (fourteen) [place] (FREESTYLE 00 days. Medical DOM 2 E10.65 Branch SENSOR) Kit flash 2022-0 Yes [id number] 1{kit} 1 Kit Un rl glucose 4-04 9101 every 14 ity of sensor 00:00: (fourteen) [place] (FREESTYLE 00 days. Medical DOM 2 E10.65 Branch SENSOR) Kit flash 2022-0 Yes [id number] 1{kit} 1 Kit Un rl glucose 4-04 9101 every 14 ity of sensor 00:00: (fourteen) [place] (FREESTYLE 00 days. Medical DOM 2 E10.65 Branch SENSOR) Kit flash 2022-0 Yes [id number] 1{kit} 1 Kit Un rl glucose 4-04 9101 every 14 ity of sensor 00:00: (fourteen) [place] (FREESTYLE 00 days. Medical DOM 2 E10.65 Branch SENSOR) Kit flash 2022-0 Yes [id number] 1{kit} 1 Kit Un rl glucose 4-04 9101 every 14 ity of sensor 00:00: (fourteen) [place] (FREESTYLE 00 days. Medical DOM 2 E10.65 Branch SENSOR) Kit flash 2022-0 Yes [id number] 1{kit} 1 Kit Un rl glucose 4-04 9101 every 14 ity of sensor 00:00: (fourteen) [place] (FREESTYLE 00 days. Medical DOM 2 E10.65 Branch SENSOR) Kit flash 2022-0 Yes [id number] 1{kit} 1 Kit Un rl glucose 4-04 9101 every 14 ity of sensor 00:00: (fourteen) [place] (FREESTYLE 00 days. Medical DOM 2 E10.65 Branch SENSOR) Kit flash 2022-0 Yes [id number] 1{kit} 1 Kit Un rl glucose 4-04 9101 every 14 ity of sensor 00:00: (fourteen) [place] (FREESTYLE 00 days. Medical DOM 2 E10.65 Branch SENSOR) Kit pregabalin 2022-0 Yes [id number] 100mg Take 1 [facility] 100 mg 4-02 9101 capsule by ity of capsule 00:00: mouth 2 (two) Medical times Branch daily. pregabalin 2022-0 Yes [id number] 100mg Take 1 [facility] 100 mg 4-02 9101 capsule by ity of capsule 00:00: mouth 2 (two) Medical times Branch daily. pregabalin 2022-0 Yes [id number] 100mg Take 1 [facility] 100 mg 4-02 9101 capsule by ity of capsule 00:00: mouth 2 [place] (two) Medical times Branch daily. pregabalin 2022-0 Yes [id number] 100mg Take 1 [facility] 100 mg 4-02 9101 capsule by ity of capsule 00:00: mouth 2 [place] (two) Medical times Branch daily. pregabalin 2022-0 Yes [id number] 100mg Take 1 [facility] 100 mg 4-02 9101 capsule by ity of capsule 00:00: mouth 2 (two) Medical times Branch daily. pregabalin 2022-0 Yes [id number] 100mg Take 1 [facility] 100 mg 4-02 9101 capsule by ity of capsule 00:00: mouth 2 [place] (two) Medical times Branch daily. pregabalin 2022-0 Yes [id number] 100mg Take 1 [facility] 100 mg 4-02 9101 capsule by ity of capsule 00:00: mouth 2 [place] (two) Medical times Branch daily. pregabalin 2022-0 Yes [id number] 100mg Take 1 [facility] 100 mg 4- 9101 capsule by ity of capsule 00:00: mouth 2 00 (two) Medical times Branch daily. pregabalin 2022-0 Yes [id number] 100mg Take 1 [facility] 100 mg 4- 9101 capsule by ity of capsule 00:00: mouth 2 00 (two) Medical times Branch daily. pregabalin 2022-0 2022- No [id number] 100mg Take 1 [facility] 100 mg 4-06 03- 9101 capsule by ity of capsule 00:00: 00:00 mouth 2 [place] 00 :00 (two) Medical times Branch daily. pregabalin 2022-0 2022- No [id number] 100mg Take 1 [facility] 100 mg 4-06 03- 9101 capsule by ity of capsule 00:00: 00:00 mouth 2 [place] 00 :00 (two) Medical times Branch daily. flash 2022-0 Yes [id number] 1{each} 1 Each Univers glucose 3-21 9101 daily. ity of scanning 00:00: [place] reader 00 Medical (FREESTYLE Branch DOM 2 READER) Misc flash 2022-0 Yes [id number] 1{each} 1 Each [facility] glucose 3-21 9101 daily. ity of scanning 00:00: [place] reader 00 Medical (FREESTYLE Branch ODM 2 READER) Misc flash 2022-0 Yes [id number] 1{each} 1 Each [facility] glucose 3-21 9101 daily. ity of scanning 00:00: [place] reader 00 Medical (FREESTYLE Branch DOM 2 READER) Misc flash 2022-0 Yes [id number] 1{each} 1 Each [facility] glucose 3-21 9101 daily. ity of scanning 00:00: [place] reader 00 Medical (FREESTYLE Branch DOM 2 READER) Misc flash 2022-0 Yes [id number] 1{each} 1 Each [facility] glucose 3-21 9101 daily. ity of scanning 00:00: [place] reader 00 Medical (FREESTYLE Branch DOM 2 READER) Misc flash 2022-0 Yes [id number] 1{each} 1 Each [facility] glucose 3-21 9101 daily. ity of scanning 00:00: [place] reader 00 Medical (FREESTYLE Branch DOM 2 READER) Misc flash 2022-0 Yes [id number] 1{each} 1 Each [facility] glucose 3-21 9101 daily. ity of scanning 00:00: [place] reader 00 Medical (FREESTYLE Branch DOM 2 READER) Misc flash 2-0 Yes [id number] 1{each} 1 Each [facility] glucose 3-21 9101 daily. ity of scanning 00:00: [place] reader 00 Medical (FREESTYLE Branch DOM 2 READER) Misc flash 2-0 Yes [id number] 1{each} 1 Each [facility] glucose 3-21 9101 daily. ity of scanning 00:00: [place] reader 00 Medical (FREESTYLE Branch DOM 2 READER) Misc flash 2-0 Yes [id number] 1{each} 1 Each [facility] glucose 3-21 9101 daily. ity of scanning 00:00: [place] reader 00 Medical (FREESTYLE Branch DOM 2 READER) Misc flash 2-0 Yes [id number] 1{each} 1 Each [facility] glucose 3-21 9101 daily. ity of scanning 00:00: [place] reader 00 Medical (FREESTYLE Branch DOM 2 READER) Misc flash 2-0 Yes [id number] 1{each} 1 Each [facility] glucose 3-21 9101 daily. ity of scanning 00:00: [place] reader 00 Medical (FREESTYLE Branch DOM 2 READER) Misc methIMAzole 2020-04 Yes [id number] 5mg Take 1 [facility] 5 mg tablet 1-22 tablet by ity of 00:00: mouth [place] 00 daily. Medical Branch insulin NPH 2020-04 Yes [id number] 25 units Univers and regular 1-22 9101 wtice ity of human 70-30 00:00: daily [place] (HUMULIN 00 before Medical 70/30 U-100 meals. Max Br anch INSULIN) daily dose 100 unit/mL of 70 (70-30) units injection methIMAzole 2020-04 Yes [id number] 5mg Take 1 [facility] 5 mg tablet 1-22 tablet by ity of 00:00: mouth [place] 00 daily. Medical Branch insulin NPH 2020-04 Yes [id number] 25 units Univers and regular 1-22 9101 wtice ity of human 70-30 00:00: daily [place] (HUMULIN 00 before Medical 70/30 U-100 meals. Max Br anch INSULIN) daily dose 100 unit/mL of 70 (70-30) units injection methIMAzole 2020-04 Yes [id number] 5mg Take 1 [facility] 5 mg tablet 1-22 tablet by ity of 00:00: mouth [place] 00 daily. Medical Branch insulin NPH 2020-04 Yes [id number] 25 units Univers and regular 1-22 9101 wtice ity of human 70-30 00:00: daily [place] (HUMULIN 00 before Medical 70/30 U-100 meals. Max Br anch INSULIN) daily dose 100 unit/mL of 70 (70-30) units injection methIMAzole 2020-04 Yes [id number] 5mg Take 1 [facility] 5 mg tablet 1-22 tablet by ity of 00:00: mouth [place] 00 daily. Medical Branch insulin NPH 2020-04 Yes [id number] 25 units Univers and regular 1-22 9101 wtice ity of human 70-30 00:00: daily [place] (HUMULIN 00 before Medical 70/30 U-100 meals. Max Br anch INSULIN) daily dose 100 unit/mL of 70 (70-30) units injection methIMAzole 2020-04 Yes [id number] 5mg Take 1 [facility] 5 mg tablet 1-22 tablet by ity of 00:00: mouth [place] 00 daily. Medical Branch insulin NPH 2020-04 Yes [id number] 25 units Univers and regular -22 9101 wtice ity of human 70-30 00:00: daily [place] (HUMULIN 00 before Medical 70/30 U-100 meals. Max Br anch INSULIN) daily dose 100 unit/mL of 70 (70-30) units injection methIMAzole 2020-04 Yes [id number] 5mg Take 1 [facility] 5 mg tablet 1-22 tablet by ity of 00:00: mouth [place] 00 daily. Medical Branch insulin NPH 2020-04 Yes [id number] 25 units Univers and regular 1-22 9101 wtice ity of human 70-30 00:00: daily [place] (HUMULIN 00 before Medical 70/30 U-100 meals. Max Br anch INSULIN) daily dose 100 unit/mL of 70 (70-30) units injection methIMAzole 2020-04 Yes [id number] 5mg Take 1 [facility] 5 mg tablet 1-22 tablet by ity of 00:00: mouth [place] 00 daily. Medical Branch insulin NPH 2020-04 Yes [id number] 25 units Univers and regular 1-22 9101 wtice ity of human 70-30 00:00: daily [place] (HUMULIN 00 before Medical 70/30 U-100 meals. Max Br anch INSULIN) daily dose 100 unit/mL of 70 (70-30) units injection methIMAzole 2020-04 Yes [id number] 5mg Take 1 [facility] 5 mg tablet 1-22 tablet by ity of 00:00: mouth [place] 00 daily. Medical Branch insulin NPH 2020-04 Yes [id number] 25 units Univers and regular 05-16 9101 wtice ity of human 70-30 00:00: daily [place] (HUMULIN 00 before Medical 70/30 U-100 meals. Max Br anch INSULIN) daily dose 100 unit/mL of 70 (70-30) units injection methIMAzole 2020-04 Yes [id number] 5mg Take 1 [facility] 5 mg tablet -22 tablet by ity of 00:00: mouth [place] 00 daily. Medical Branch insulin NPH 2020-04 Yes [id number] 25 units Univers and regular 05-16 9101 wtice ity of human 70-30 00:00: daily [place] (HUMULIN 00 before Medical 70/30 U-100 meals. Max Br anch INSULIN) daily dose 100 unit/mL of 70 (70-30) units injection methIMAzole 2020-04 Yes [id number] 5mg Take 1 [facility] 5 mg tablet -22 tablet by ity of 00:00: mouth [place] 00 daily. Medical Branch insulin NPH 2020-04 Yes [id number] 25 units Univers and regular 05-16 9101 wtice ity of human 70-30 00:00: daily [place] (HUMULIN 00 before Medical 70/30 U-100 meals. Max Br anch INSULIN) daily dose 100 unit/mL of 70 (70-30) units injection methIMAzole 2020-04 Yes [id number] 5mg Take 1 [facility] 5 mg tablet 1-22 tablet by ity of 00:00: mouth [place] 00 daily. Medical Branch insulin NPH 2020-04 Yes [id number] 25 units Univers and regular - 9101 wtice ity of human 70-30 00:00: daily [place] (HUMULIN 00 before Medical 70/30 U-100 meals. Max Br anch INSULIN) daily dose 100 unit/mL of 70 (70-30) units injection methIMAzole 2020-04 Yes [id number] 5mg Take 1 [facility] 5 mg tablet 05-16 tablet by ity of 00:00: mouth [place] 00 daily. Medical Branch insulin NPH 2020-04 Yes [id number] 25 units Univers and regular 05-16 9101 wtice ity of human 70-30 00:00: daily [place] (HUMULIN 00 before Medical 70/30 U-100 meals. Max Br anch INSULIN) daily dose 100 unit/mL of 70 (70-30) units injection atorvastati 2020-04 Yes [id number] 10mg Take 1 Univers n (LIPITOR) 0-07 tablet by ity of 10 mg 00:00: mouth at [place] tablet 00 bedtime. Medical Branch atorvastati 2020-04 Yes [id number] 10mg Take 1 [facility] n (LIPITOR) 0-07 tablet by ity of 10 mg 00:00: mouth at [place] tablet 00 bedtime. Medical Branch atorvastati 2020-04 Yes [id number] 10mg Take 1 [facility] n (LIPITOR) 0-07 tablet by ity of 10 mg 00:00: mouth at [place] tablet 00 bedtime. Medical Branch atorvastati 2020-04 Yes [id number] 10mg Take 1 [facility] n (LIPITOR) 0-07 tablet by ity of 10 mg 00:00: mouth at [place] tablet 00 bedtime. Medical Branch atorvastati 2020-04 Yes [id number] 10mg Take 1 [facility] n (LIPITOR) 0-07 tablet by ity of 10 mg 00:00: mouth at [place] tablet 00 bedtime. Medical Branch atorvastati 2020-04 Yes [id number] 10mg Take 1 [facility] n (LIPITOR) 0-07 tablet by ity of 10 mg 00:00: mouth at [place] tablet 00 bedtime. Medical Branch atorvastati 2020-04 Yes [id number] 10mg Take 1 [facility] n (LIPITOR) 0-07 tablet by ity of 10 mg 00:00: mouth at [place] tablet 00 bedtime. Medical Branch atorvastati 2020-04 [id number] 10mg Take 1 [facility] n (LIPITOR) 0-07 -19 tablet by it y of 10 mg 00:00: 00:00 mouth at [place] tablet 00 :00 bedtime. Medical Branch silver Yes [id number] Apply to rl sulfADIAZIN 9-01 area(s) 2 ity of E 00:00: (two) [place] (SILVADENE) 00 times Medical 1 % cream daily. Branch silver 2021-0 Yes [id number] Apply to Un rl sulfADIAZIN 9-01 area(s) 2 ity of E 00:00: (two) [place] (SILVADENE) 00 times Medical 1 % cream daily. Branch silver 2021-0 Yes [id number] Apply to Un rl sulfADIAZIN 9-01 area(s) 2 ity of E 00:00: (two) [place] (SILVADENE) 00 times Medical 1 % cream daily. Branch silver 2021-0 Yes [id number] Apply to Un rl sulfADIAZIN 9-01 area(s) 2 ity of E 00:00: (two) [place] (SILVADENE) 00 times Medical 1 % cream daily. Branch silver 2021-0 Yes [id number] Apply to Un rl sulfADIAZIN 9-01 area(s) 2 ity of E 00:00: (two) [place] (SILVADENE) 00 times Medical 1 % cream daily. Branch silver 2021-0 Yes [id number] Apply to Un rl sulfADIAZIN 9-01 area(s) 2 ity of E 00:00: (two) [place] (SILVADENE) 00 times Medical 1 % cream daily. Branch silver 2021-0 Yes [id number] Apply to Un rl sulfADIAZIN 9-01 area(s) 2 ity of E 00:00: (two) [place] (SILVADENE) 00 times Medical 1 % cream daily. Branch silver 2021-0 Yes [id number] Apply to Un rl sulfADIAZIN 9-01 area(s) 2 ity of E 00:00: (two) [place] (SILVADENE) 00 times Medical 1 % cream daily. Branch silver 2021-0 Yes [id number] Apply to Un rl sulfADIAZIN 9-01 area(s) 2 ity of E 00:00: (two) [place] (SILVADENE) 00 times Medical 1 % cream daily. Branch silver 2021-0 Yes [id number] Apply to Un rl sulfADIAZIN 9-01 area(s) 2 ity of E 00:00: (two) [place] (SILVADENE) 00 times Medical 1 % cream daily. Branch silver 2021-0 Yes [id number] Apply to Un rl sulfADIAZIN 9- area(s) 2 ity of E 00:00: (two) [place] (SILVADENE) 00 times Medical 1 % cream daily. Branch silver 2020-0 Yes [id number] Apply to Un rl sulfADIAZIN 9- area(s) 2 ity of E 00:00: (two) [place] (SILVADENE) 00 times Medical 1 % cream daily. Branch metoclopram 2020-0 Yes [id number] 5mg Take 1 [facility] daniel HCl 5 8-24 tablet by ity o f mg tablet 00:00: mouth [place] 00 before Medical meals. Branch Dexlansopra 2020-0 Yes [id number] 60mg Take 1 [facility] zole 8-24 capsule by ity of (DEXILANT) 00:00: mouth [place] 60 mg 00 daily. Medical capsule Branch dicyclomine 2020-0 Yes [id number] 20mg Take 1 [facility] 20 mg 8-24 tablet by ity of tablet 00:00: mouth 2 [place] 00 (two) Medical times Branch daily. metoclopram 2020-0 Yes [id number] 5mg Take 1 [facility] daniel HCl 5 8-24 tablet by ity o f mg tablet 00:00: mouth [place] 00 before Medical meals. Branch Dexlansopra 2020-0 Yes [id number] 60mg Take 1 [facility] zole 8-24 capsule by ity of (DEXILANT) 00:00: mouth [place] 60 mg 00 daily. Medical capsule Branch dicyclomine 2020-0 Yes [id number] 20mg Take 1 [facility] 20 mg 8-24 tablet by ity of tablet 00:00: mouth 2 [place] 00 (two) Medical times Branch daily. metoclopram 2020-0 Yes [id number] 5mg Take 1 [facility] daniel HCl 5 8-24 tablet by ity o f mg tablet 00:00: mouth [place] 00 before Medical meals. Branch Dexlansopra 2020-0 Yes [id number] 60mg Take 1 [facility] zole 8-24 capsule by ity of (DEXILANT) 00:00: mouth [place] 60 mg 00 daily. Medical capsule Branch dicyclomine 2020-0 Yes [id number] 20mg Take 1 [facility] 20 mg 8-24 tablet by ity of tablet 00:00: mouth 2 [place] 00 (two) Medical times Branch daily. metoclopram 1-0 Yes [id number] 5mg Take 1 [facility] daniel HCl 5 8-24 tablet by ity o f mg tablet 00:00: mouth [place] 00 before Medical meals. Branch Dexlansopra 2020-0 Yes [id number] 60mg Take 1 [facility] zole 8-24 capsule by ity of (DEXILANT) 00:00: mouth [place] 60 mg 00 daily. Medical capsule Branch dicyclomine 2020-0 Yes [id number] 20mg Take 1 [facility] 20 mg 8-24 tablet by ity of tablet 00:00: mouth (two) Medical times Branch daily. metoclopram 2020-0 Yes [id number] 5mg Take 1 [facility] daniel HCl 5 8-24 tablet by ity o f mg tablet 00:00: mouth [place] 00 before Medical meals. Branch Dexlansopra 2020-0 Yes [id number] 60mg Take 1 [facility] zole 8-24 capsule by ity of (DEXILANT) 00:00: mouth [place] 60 mg 00 daily. Medical capsule Branch dicyclomine 2020-0 Yes [id number] 20mg Take 1 [facility] 20 mg 8-24 tablet by ity of tablet 00:00: mouth (two) Medical times Branch daily. metoclopram 2020-0 Yes [id number] 5mg Take 1 [facility] daniel HCl 5 8-24 tablet by ity o f mg tablet 00:00: mouth 00 before Medical meals. Branch dicyclomine 2020-0 Yes [id number] 20mg Take 1 [facility] 20 mg 8-24 tablet by ity of tablet 00:00: mouth (two) Medical times Branch daily. metoclopram 1-0 Yes [id number] 5mg Take 1 [facility] daniel HCl 5 8-24 tablet by ity o f mg tablet 00:00: mouth 00 before Medical meals. Branch dicyclomine 1-0 Yes [id number] 20mg Take 1 [facility] 20 mg 8-24 tablet by ity of tablet 00:00: mouth 2 (two) Medical times Branch daily. metoclopram 1-0 Yes [id number] 5mg Take 1 [facility] daniel HCl 5 8-24 tablet by ity o f mg tablet 00:00: mouth [place] 00 before Medical meals. Branch dicyclomine 2021-0 Yes [id number] 20mg Take 1 [facility] 20 mg 8-24 tablet by ity of tablet 00:00: mouth 2 [place] 00 (two) Medical times Branch daily. metoclopram 2020-0 Yes [id number] 5mg Take 1 [facility] daniel HCl 5 8-24 tablet by ity o f mg tablet 00:00: mouth [place] 00 before Medical meals. Branch dicyclomine 2020-0 Yes [id number] 20mg Take 1 [facility] 20 mg 8-24 tablet by ity of tablet 00:00: mouth 2 [place] 00 (two) Medical times Branch daily. metoclopram 2020-0 Yes [id number] 5mg Take 1 [facility] daniel HCl 5 8-24 tablet by ity o f mg tablet 00:00: mouth [place] 00 before Medical meals. Branch metoclopram 2020-0 Yes [id number] 5mg Take 1 [facility] daniel HCl 5 8-24 tablet by ity o f mg tablet 00:00: mouth [place] 00 before Medical meals. Branch metoclopram 2020-0 Yes [id number] 5mg Take 1 [facility] daniel HCl 5 8-24 tablet by ity o f mg tablet 00:00: mouth [place] 00 before Medical meals. Branch dicyclomine 2020-0 2021- No [id number] 20mg Take 1 [facility] 20 mg 8-24 09-20 tablet by ity of tablet 00:00: 00:00 mouth 2 [place] 00 :00 (two) Medical times Branch daily. dicyclomine 2020-0 2- No [id number] 20mg Take 1 [facility] 20 mg 8-24 09-20 tablet by ity of tablet 00:00: 00:00 mouth 2 [place] 00 :00 (two) Medical times Branch daily. Dexlansopra 2020-2021- No [id number] 60mg Take 1 [facility] zole 8-24 09-07 capsule by ity of (DEXILANT) 00:00: 00:00 mouth [place] 60 mg 00 :00 daily. Medical capsule Branch naproxen 2019-04 Yes 220mg Take 220 Univ ers sodium 0-28 mg by ity of (ALEVE) 220 14:52: mouth 2 [place] as mg tablet 17 (two) Medical times Branch daily with meals. naproxen 2019-04 Yes 220mg Take 220 Univ ers sodium 0-28 mg by ity of (ALEVE) 220 14:52: mouth 2 [place] as mg tablet 17 (two) Medical times Branch daily with meals. naproxen 2019- Yes 220mg Take 220 Univ ers sodium 0-28 mg by ity of (ALEVE) 220 14:52: mouth 2 Yordy as mg tablet 17 (two) Medical times Branch daily with meals. naproxen 2019-04 Yes 220mg Take 220 Univ ers sodium 0-28 mg by ity of (ALEVE) 220 14:52: mouth 2 Yordy as mg tablet 17 (two) Medical times Branch daily with meals. naproxen 2019-04 Yes 220mg Take 220 Univ ers sodium 0-28 mg by ity of (ALEVE) 220 14:52: mouth 2 [place]ordy as mg tablet 17 (two) Medical times Branch daily with meals. naproxen 2019-04 Yes 220mg Take 220 Univ ers sodium 0-28 mg by ity of (ALEVE) 220 14:52: mouth 2 [place]ordy as mg tablet 17 (two) Medical times Branch daily with meals. naproxen 2019-04 Yes 220mg Take 220 Univ ers sodium 0-28 mg by ity of (ALEVE) 220 14:52: mouth 2 Yordy as mg tablet 17 (two) Medical times Branch daily with meals. naproxen 2019-04 Yes 220mg Take 220 Univ ers sodium 0-28 mg by ity of (ALEVE) 220 14:52: mouth 2 Yordy as mg tablet 17 (two) Medical times Branch daily with meals. naproxen 2019-04 Yes 220mg Take 220 Univ ers sodium [...] medroxyPROG 2020-0 Yes 150mg 150 mg by Univers ESTERone 6-09 Intramuscu ity o f (DEPO-PROVE 11:49: lar route [place] RA) 150 34 every 3 Medical mg/mL (three) Branch injection months. medroxyPROG 2020-0 Yes 150mg 150 mg by Univers ESTERone 6-09 Intramuscu ity o f (DEPO-PROVE 11:49: lar route [place] RA) 150 34 every 3 Medical mg/mL (three) Branch injection months. medroxyPROG 2020-0 Yes 150mg 150 mg by Univers ESTERone 6-09 Intramuscu ity o f (DEPO-PROVE 11:49: lar route [place] RA) 150 34 every 3 Medical mg/mL (three) Branch injection months. medroxyPROG 2020-0 Yes 150mg 150 mg by Univers ESTERone 6-09 Intramuscu ity o f (DEPO-PROVE 11:49: lar route [place] RA) 150 34 every 3 Medical mg/mL (three) Branch injection months. medroxyPROG 2020-0 Yes 150mg 150 mg by Univers ESTERone 6-09 Intramuscu ity o f (DEPO-PROVE 11:49: lar route [place] RA) 150 34 every 3 Medical mg/mL (three) Branch injection months. medroxyPROG 2020-0 Yes 150mg 150 mg by Univers ESTERone 6-09 Intramuscu ity o f (DEPO-PROVE 11:49: lar route [place] RA) 150 34 every 3 Medical mg/mL (three) Branch injection months. medroxyPROG 2020-0 Yes 150mg 150 mg by Univers ESTERone 6-09 Intramuscu ity o f (DEPO-PROVE 11:49: lar route [place] RA) 150 34 every 3 Medical mg/mL (three) Branch injection months. medroxyPROG 2020-0 Yes 150mg 150 mg by Univers ESTERone 6-09 Intramuscu ity o f (DEPO-PROVE 11:49: lar route [place] RA) 150 34 every 3 Medical mg/mL (three) Branch injection months. medroxyPROG 2020-0 Yes 150mg 150 mg by Univers ESTERone 6-09 Intramuscu ity o f (DEPO-PROVE 11:49: lar route [place] RA) 150 34 every 3 Medical mg/mL (three) Branch injection months. medroxyPROG 2020-0 Yes 150mg 150 mg by Univers ESTERone 6 Intramuscu ity o f (DEPO-PROVE 11:49: lar route [place] RA) 150 34 every 3 Medical mg/mL (three) Branch injection months. medroxyPROG 2020-0 Yes 150mg 150 mg by Univers ESTERone 6- Intramuscu ity o f (DEPO-PROVE 11:49: lar route [place] RA) 150 34 every 3 Medical mg/mL (three) Branch injection months. medroxyPROG 2020-0 Yes 150mg 150 mg by Univers ESTERone 6 Intramuscu ity o f (DEPO-PROVE 11:49: lar route [place] RA) 150 34 every 3 Medical mg/mL (three) Branch injection months. Immunizations Ordered Filled Immunization Date Status Comments [facility] e Immunization Name Name Influenza Virus 2022-01-12 Completed Universit y of Vaccine Quad IM, 00:00:00 [facility] dical Preserv and ABX Branch Free 6 MO-64 YRS SARS-COV-2 COVID-19 2020-08-23 Completed Unive rsity of PFIZER VACCINE 00:00:00 [facility] SARS-COV-2 COVID-19 2020-08-23 Completed Unive rsity of PFIZER VACCINE 00:00:00 [facility] SARS-COV-2 COVID-19 2020-08-23 Completed Unive rsity of PFIZER VACCINE 00:00:00 [facility] SARS-COV-2 COVID-19 2020-08-23 Completed Unive rsity of PFIZER VACCINE 00:00:00 [facility] SARS-COV-2 COVID-19 2020-08-23 Completed Unive rsity of PFIZER VACCINE 00:00:00 [facility] SARS-COV-2 COVID-19 2020-08-23 Completed Unive rsity of PFIZER VACCINE 00:00:00 [facility] SARS-COV-2 COVID-19 2020-08-23 Completed Unive rsity of PFIZER VACCINE 00:00:00 [facility] SARS-COV-2 COVID-19 2020-08-23 Completed Unive rsity of PFIZER VACCINE 00:00:00 [place] [facility] SARS-COV-2 COVID-19 2020-08-23 Completed Unive rsity of PFIZER VACCINE 00:00:00 [facility] Branch SARS-COV-2 COVID-19 2020-08-23 Completed Unive rsity of PFIZER VACCINE 00:00:00 [facility] Branch SARS-COV-2 COVID-19 2020-08-23 Completed Unive rsity of PFIZER VACCINE 00:00:00 [facility] Branch SARS-COV-2 COVID-19 2020-08-23 Completed Unive rsity of PFIZER VACCINE 00:00:00 [facility] Branch SARS-COV-2 COVID-19 2020-07-20 Completed Unive rsity of PFIZER VACCINE 00:00:00 [facility] Branch SARS-COV-2 COVID-19 2020-07-20 Completed Unive rsity of PFIZER VACCINE 00:00:00 [facility] Branch SARS-COV-2 COVID-19 2020-07-20 Completed Unive rsity of PFIZER VACCINE 00:00:00 [facility] Branch SARS-COV-2 COVID-19 2020-07-20 Completed Unive rsity of PFIZER VACCINE 00:00:00 [facility] Branch SARS-COV-2 COVID-19 2020-07-20 Completed Unive rsity of PFIZER VACCINE 00:00:00 [facility] Branch SARS-COV-2 COVID-19 2020-07-20 Completed Unive rsity of PFIZER VACCINE 00:00:00 [facility] Branch SARS-COV-2 COVID-19 2020-07-20 Completed Unive rsity of PFIZER VACCINE 00:00:00 [facility] Branch SARS-COV-2 COVID-19 2020-07-20 Completed Unive rsity of PFIZER VACCINE 00:00:00 [facility] Branch SARS-COV-2 COVID-19 2020-07-20 Completed Unive rsity of PFIZER VACCINE 00:00:00 [facility] Branch SARS-COV-2 COVID-19 2020-07-20 Completed Unive rsity of PFIZER VACCINE 00:00:00 [facility] Branch SARS-COV-2 COVID-19 2020-07-20 Completed Unive rsity of PFIZER VACCINE 00:00:00 [facility] SARS-COV-2 COVID-19 2020-07-20 Completed Unive rsity of PFIZER VACCINE 00:00:00 [facility] TDAP 2019-12-11 Completed University of 00:00:00 [facility] TDAP 2019-12-11 Completed University of 00:00:00 [facility] TDAP 2019-12-11 Completed University of 00:00:00 [facility] TDAP 2019-12-11 Completed University of 00:00:00 [facility] TDAP 2019-12-11 Completed University of 00:00:00 [facility] TDAP 2019-12-11 Completed University of 00:00:00 [facility] TDAP 2019-12-11 Completed University of 00:00:00 [facility] TDAP 2019-12-11 Completed University of 00:00:00 [facility] TDAP 2019-12-11 Completed University of 00:00:00 [facility] TDAP 2019-12-11 Completed University of 00:00:00 [facility] TDAP 2019-12-11 Completed University of 00:00:00 [facility] TDAP 2019-12-11 Completed University of 00:00:00 [facility] Vital Signs Vital Name Observation Time Observation Value Comments Source Systolic blood 2022-01-12 20:02:00 143 mm[Hg] Univer sity of pressure [facility] Diastolic blood 2022-01-12 20:02:00 82 mm[Hg] Unive rsity of pressure [facility] Heart rate 2022-01-12 20:01:00 120 /min [facility] Body temperature 2022-01-12 20:01:00 [facility].22 [facility] 2022-01-12 20:01:00 157.5 cm [facility] Body weight 2022-01-12 20:01:00 86.637 kg [facility] BMI 2022-01-12 20:01:00 34.93 kg/m2 [facility] Procedures Procedure Date / Time Performing Clinician Source Performed ASSIGNMENT OF BENEFITS 2022-01-12 19:46:51 Doctor Unassigned, [facility] [place] [facility] POCT HEMOGLOBIN A1C TEST 2022-01-12 00:00:00 Fl[facility]cita [facility] INSURANCE CORRESPONDENCE 2021-11-12 05:01:00 Doctor Unassigned, [facility] [place] [facility] Encounters Start End Encounter Admission Attending Care Care Encounter Source Date/Time Date/Time Type Type Clinicians Facility Department ID 2022-07-12 2022-07-12 Outpatient Vee ATKINS [facility] [id number] [id number] Univers 13:45:00 13:45:00 FLORECITA [id number] [facility] 2022-07-12 2022-07-12 [facility] [id number] Univers 13:45:00 13:45:00 FLORECITA terese [facility] 2022-01-15 2022-01-15 [facility] [id number] Univers 14:30:00 14:30:00 YOLIE [id number] [facility] 2022-01-15 2022-01-15 [facility] [id number] Univers 14:30:00 14:30:00 YOLIE [facility] 2022-01-13 2022-01-13 [facility] 1.2.840.114 [id number] Univers 00:00:00 00:00:00 [facility] [id number] it y of Edmalissa [facility] 4.2.7.2.686 Yordy as [place]?BLEA [phone] [address] MEDICAL OFFICE [facility] 2022-01-12 2022-01-12 Outpatient [facility] [id number] Univers 15:15:00 15:17:01 [facility] 2022-01-12 2022-01-12 [facility] 1.2.840.114 [id number] Univers 15:15:00 15:17:01 Visit [facility] [id number] it y of Edward [facility] 4.2.7.2.686 [place] as [place]?BLE[place] [phone] [address] MEDICAL OFFICE [facility] 2022-01-12 2022-01-12 Outpatient [facility] [id number] P-20 Univers 15:15:00 15:15:00 FLORECITA [id number] [facility] 2022-01-12 2022-01-12 Orders Doctor DONIS 1..840.114 [id number] Univers 00:00:00 00:00:00 Only Unassigned, CLIFF [id number] ity of [place] [facility] 4.2.7.2.686 Yordy as [phone] [address] 2022-01-09 2022-01-[address] [facility] 1.2.840.114 [id number] Univers 00:00:00 00:00:00 Florecita HEALTH [id number] it y of Edward [place] 4.2.7.2.686 [place]y as [place] [id number] [address] OFFICE [facility] 2022-01-06 2022-01-06 Telephone [facility] 1.2.840.114 [id number] Univers 00:00:00 00:00:00 [place] HEALTH [id number] it y of [place] 4.2.7.2.686 Yordy as [place]?BLEA [phone] [facility] 220 [facility] OFFICE [facility] 2021-12-30 2021-12-[address] [facility] 1.2.840.114 [id number] Univers 00:00:00 00:00:00 [facility] [id number] it y of Edward [place] 4.2.7.2.686 [place] [phone] [address] 2021-12-29 2021-12-29 Outpatient [facility] [id number] P-20 Univers 13:30:00 13:30:00 FLORECITA [id number] [facility] 2021-12-29 2021-12-29 Outpatient Vee [facility] [id number] Univers 13:30:00 13:30:00 FLORECITA [facility] 2021-12-25 2021-12-25 Telephone [facility] 1.2.840.114 [id number] Univers 00:00:00 00:00:00 [facility] [id number] it y of Edward [place] 4.2.7.2.686 Yordy as [place]?BLEA [phone] [facility] [address] MEDICAL OFFICE [facility] 2021-12-12 2021-12-12 Refill [facility] 1.2.840.114 [id number] Univers 00:00:00 00:00:00 Florecita HEALTH [id number] it y of Shiraz [facility] 4.2.7.2.686 Yordy as [place]?BLEA [id number] [facility] 044 [facility] OFFICE [facility] 2021-11-23 2021-11-23 Telephone [facility] 1.2.840.114 [id number] Univers 00:00:00 00:00:00 [place] HEALTH [id number] it y of [facility] 4.2.7.2.686 Yordy as [place]?BLEA [phone] [facility] 220 [facility] OFFICE [facility] 2021-11-16 2021-11-16 Telephone [facility] 1.2.840.114 [id number] Univers 00:00:00 00:00:00 [place] HEALTH [id number] it y of [facility] 4.2.7.2.686 Yordy as [place]?BLEA [phone] [facility] 220 [facility] OFFICE [facility] 2021-11-12 2021-11-12 Orders Doctor GAGANDEEP 1.2.840.114 [id number] Univers 00:00:00 00:00:00 Only Unassigned, CLIFF [id number] ity of [place] [facility] 4.2.7.2.686 Yordy as [phone] [address] 2021-10-05 2021-10-05 Outpatient R JOSELITO [facility] [id number] Univers 14:30:00 14:30:00 [facility] 2021-01-26 2021-01-26 Outpatient R JOSELITO [facility] [id number] Univers 09:30:00 09:30:00 [facility] 2021-01-09 2021-01-09 Outpatient R MITA RICH [facility] [id number] Univers 13:15:00 13:15:00 [id number] [facility] 2020-10-03 2020-10-03 [facility] 1.2.840.114 [id number] 00:00:00 00:00:00 Florecita Health [id number] Edward Caitlyn 4.2.7.2.686 Professio [phone] [place] [address] [address] 2020-09-24 2020-09-24 Orders Doctor GAGANDEEP 1.2.840.114 [id number] 00:00:00 00:00:00 Only Unassigned, CLIFF [id number] [place] [facility] 4.2.7.2.686 [phone] 009 2020-09-17 2020-09-17 [facility] 1.2.840.114 [id number] 00:00:00 00:00:00 [facility] 350.1.13.10 [facility] 4.2.7.2.686 Professio [phone] [place] [address] Office [facility] One 2020-09-14 2020-09-14 [facility] 1.2.840.114 [id number] 00:00:00 00:00:00 Florecita Emerson 350.1.13.10 Edmalissa [place] 4.2.7.2.686 Professio [phone] [address] 2020-09-04 2020-09-04 Telemedici [facility] 1.2.840.114 [id number] 07:01:14 07:16:14 ne Visit [facility] 350.1.13.10 malissa Emerson 4.2.7.2.686 Professio [phone] [place] [address] Office [facility] One 2020-08-14 2020-08-14 Telephone Team, [facility] GAGANDEEP 1.2.840.114 [id number] 00:00:00 00:00:00 Health CLIFF 350.1.13.10 [facility] 4.2.7.2.686 [id number] [id number] 2020-07-15 2020-07-15 Refill [facility] 1.2.840.114 [id number] 00:00:00 00:00:00 [facility] 350.1.13.10 malissa Emerson 4.2.7.2.686 Professio [phone] [facility] 044 Office Building One 2020-07-15 2020-07-15 Telephone [facility] 1.2.840.114 [id number] 00:00:00 00:00:00 [place] 350.1.13.10 [place] 4.2.7.2.686 Professio [phone] [facility] 220 [facility] 2020-06-17 2020-06-[address] [facility] 1.2.840.114 [id number] 00:00:00 00:00:00 Florecita Emerson 350.1.13.10 [facility] 4.2.7.2.686 Professio [phone] [address] 2020-06-03 2020-06-03 Orders Doctor GAGANDEEP 1.2.840.114 [id number] 00:00:00 00:00:00 Only Unassigned, CLIFF 350.1.13.10 [place] [facility] 4.2.7.2.686 [id number] [id number] 2020-05-23 2020-05-[address] [facility] 1.2.840.114 [id number] 00:00:00 00:00:00 Floreicta Emerson 350.1.13.10 [facility] 4.2.7.2.686 Professio [phone] [address] 2020-05-23 2020-05-23 Telephone [facility] 1.2.840.114 [id number] 00:00:00 00:00:00 [place] MULTISPEC 350.1.13.10 IALTY 4.2.7.2.686 [place] [phone] [facility] 2020-05-22 2020-05-22 Telemedici [facility] 1.2.840.114 [id number] 07:35:33 07:50:33 ne Visit [facility] 350.1.13.10 malissa Emerson 4.2.7.2.686 Professio [phone] [place] [address] Office [address] [facility] 2020-05-21 2020-05-21 Telephone [facility] 1.2.840.114 [id number] 00:00:00 00:00:00 [facility] 350.1.13.10 Edward Emerson 4.2.7.2.686 Professio [phone] [place] [address] Office [address] One 2020-05-20 2020-05-20 Telephone [facility] 1.2.840.114 [id number] 00:00:00 00:00:00 [place] Emerson 350.1.13.10 [place] 4.2.7.2.686 Professio [phone] [address] 2020-05-19 2020-05-19 Orders Doctor GAGANDEEP 1.2.840.114 [id number] 00:00:00 00:00:00 Only Unassigned, CLIFF 350.1.13.10 [place] [facility] 4.2.7.2.686 [phone] [id number] 2020-05-15 2020-05-15 [facility] 1.2.840.114 [id number] 00:00:00 00:00:00 [facility] 350.1.13.10 Edward Emerson 4.2.7.2.686 Professio [phone] [place] [address] Office [facility] One 2020-05-13 2020-05-13 [facility] 1.2.840.114 [id number] 00:00:00 00:00:00 [facility] 350.1.13.10 Edward Emerson 4.2.7.2.686 Professio [phone] [place] [address] Office [address] One 2020-05-09 2020-05-09 [facility] 1.2.840.114 [id number] 00:00:00 00:00:00 [facility] 350.1.13.10 Edward Emerson 4.2.7.2.686 Professio [phone] [place] [address] Office [address] One 2020-05-05 2020-05-05 Telephone [facility] 1.2.840.114 [id number] 00:00:00 00:00:00 [place] Emerson 350.1.13.10 [place] 4.2.7.2.686 Professio [phone] [facility] 220 Building 2020-04-14 2020-04-14 Telephone [facility] 1.2.840.114 [id number] 00:00:00 00:00:00 [place] Brady 350.1.13.10 [place] 4.2.7.2.686 Professio [phone] [facility] 220 Building 2020-04-14 2020-04-14 Refill [facility] 1.2.840.114 [id number] 00:00:00 00:00:00 [place] Brady 350.1.13.10 [place] 4.2.7.2.686 Professio [phone] [facility] 220 Building 2020-04-11 2020-04-11 Orders Doctor GAGANDEEP 1.2.840.114 [id number] 00:00:00 00:00:00 Only Unassigned, CLIFF 350.1.13.10 [place] [facility] 4.2.7.2.686 [phone] [facility] 2020-04-09 2020-04-09 Telephone [facility] 1.2.840.114 [id number] 00:00:00 00:00:00 [place] Brady 350.1.13.10 [place] 4.2.7.2.686 Professio [phone] [facility] 220 Building 2020-04-08 2020-04-08 Telephone [facility] 1.2.840.114 [id number] 00:00:00 00:00:00 [facility] 350.1.13.10 Shiraz Emerson 4.2.7.2.686 Professio [phone] [facility] 044 Office Building One 2020-04-01 2020-04-01 Refill Joselito [facility] 1.2.840.114 [id number] 00:00:00 00:00:00 [place] 350.1.13.10 [place] 4.2.7.2.686 Professio [phone] [facility] 220 Building 2020-03-31 2020-03-31 Office [facility] 1.2.840.114 [id number] 13:18:18 14:18:48 Visit [place] Brady 350.1.13.10 [place] 4.2.7.2.686 Pankaj [phone] [facility] 220 [facility] 2020-03-31 2020-03-31 Orders Doctor GAGANDEEP 1.2.840.114 [id number] 00:00:00 00:00:00 Only Unassigned, CLIFF 350.1.13.10 [place] [facility] 4.2.7.2.686 [phone] [id number] 2018-05-03 2018-05-03 [id number] Common 10:54:00 10:54:00 [employer] [facility] Results Test Description Test Time Test Comments Results Result Comments Source POCT HEMOGLOBIN A1C TEST 2022-01-12 20:18:00 Test Item Value Reference Range Interpretation Comme nts POCT HBA1C (test code = 4548-4) 9.1 % 4-6 A Lab Interpretation (test code = 37272-5) Abnormal [facility] HEMOGLOBIN A1C [id number] 20:18:00 Test Item Value Reference Range Interpretation Comments POCT HBA1C (test code = 4548-4) 9.1 % 4-6 A Lab Interpretation (test code = Abnormal 02301-7) [facility], THIRD [id number] 04:16:21 Test Item Value Reference Range Interpretation Comments TSH, THIRD GENERATION (test <0.010 UIU/ML 0.400-4.100 L code = 2821) LIPID [id number] 03:38:28 Test Item Value Reference Range Interpretation [...] MOREINFORMATION , SEE CLIENT ANNOUNCE MENT AT [email or web address] [email or web address] RATIO LDL/HDL 1.96 RATIO <3.22 (test code = 2238) COMPREHENSIVE METABOLIC [id number] 03:38:28 Test Item Value Reference Range Interpretation Comments GLUCOSE (test code = 164 MG/DL 70-99 H 2216) BUN (test code = 10 MG/DL 6-20 2207) CREATININE (test 0.77 MG/DL 0.60-1.30 code = 2214) eGFR (2020 CKD-EPI) 93 >60 (test code = 22142) ML/MIN/1.73 CALC BUN/CREAT (test 13 RATIO 6-28 code = 2235) SODIUM (test code = 142 MEQ/L 374-281 8590) POTASSIUM (test code 4.3 MEQ/L 3.5-5.4 = 2227) CHLORIDE (test code 101 MEQ/L 95-107 = 2214) CARBON DIOXIDE (test 25 MEQ/L 19-31 code = 220) CALCIUM (test code = 9.7 MG/DL 8.5-10.5 2208) PROTEIN, TOTAL (test 6.9 G/DL 6.1-8.3 code = 222) ALBUMIN (test code = 4.0 G/DL 3.5-5.2 2200) CALC GLOBULIN (test 2.9 G/DL 1.9-3.7 code = 2240) CALC A/G RATIO (test 1.4 RATIO 1.0-2.6 code = 2234) BILIRUBIN, TOTAL <0.2 MG/DL See_Comment [Automated message] (test code = 2207) The [employer] which generated this result transmitted ref erence range: <=1.2. T he reference range was not used to int erpret this result as normal/abnormal . ALKALINE PHOSPHATASE 133 U/L 40-132 H (test code = 220) AST (test code = 19 U/L 9-40 2217) ALT (test code = 24 U/L 5-40 UNLESS OTH ERWISE 2218) INDICATED, ALL TESTING PERFORM ED ATCLINICAL PATH [facility]LOGY LABORATORIES, [place] [address] [facility] [place], [place] [id number] [place] [address] DIRECTOR: SHIRA RESENDIZ M.D. CLIA NUMBER [id number] CAP ACCREDITATION N O. [id number] HEMOGLOBIN [id number] 03:17:10 Test Item Value Reference Range Interpretation Comments HEMOGLOBIN A1c (test 10.6 % 4.2-5.6 H AMERIC AN DIABETES code = 65426) ASSOCIATION IDELINES FOR HGB A1C: PREDIABETES/INC REASED [...]
[2022-01-14 22:54] LABS: Absolute Lymphocytes (CBC) 2.1 K/uL (0.7-4.9); Hematocrit 40.2 % (36.0-45.0); Lymphocytes % 13.2 % (15.3-44.8); MCV 88.7 fL (80-100); MPV 9.3 fL (7.6-11.3); RBC Red Blood Cell Count 4.53 M/uL (3.86-4.86)
[2022-01-14 22:58] LABS: Protime INR 0.94
[2022-01-14] MEDS ORDERED: NA CHLORIDE 0.9% 1,000 ML ONE (23:59)
[2022-01-15 00:06] LABS: Urine Bacteria <20 /HPF (<20); Urine Mucus Slight /HPF (None Seen); Urine RBC <5 /HPF (None Seen)
[2022-01-15 00:15] LABS: Barbiturates NEGATIVE (NEGATIVE); Benzodiazepines NEGATIVE (NEGATIVE); Cocaine NEGATIVE (NEGATIVE); METHAMPHETAM POSITIVE (NEGATIVE); Methadone NEGATIVE (NEGATIVE); Opiates NEGATIVE (NEGATIVE); Phencyclidine NEGATIVE (NEGATIVE); THC Cannibis NEGATIVE (NEGATIVE)
[2022-01-15 00:54] LABS: Bilirubin Total 0.4 mg/dL (0.2-1.0); Magnesium 2.6 mg/dL (1.8-2.4); Potassium 3.9 mmol/L (3.5-5.1); Protein, Total 8.9 g/dL (6.4-8.2)
[2022-01-15 01:16] LABS: Specific Gravity 1.018 (1.005-1.030)
[2022-01-15] MEDS ORDERED: KETOROLAC 30 MG/ML INJ ONE (01:21)
[2022-01-15] MEDS ORDERED: LORazepam 2 MG/ML VIAL ONE (01:48)
--- NOTE | 2022-01-15 02:37 | ER ---
Nurse's Notes [facility] Name: Roya Anne Age: 51 yrs Sex: Female : 1970 Arrival Date: 01/14/2022 Time: 21:00 Bed 12 Private MD: Diagnosis: Adverse effect of amphetamines;Diabetes mellitus due to underlying condition with diabetic neuropathy, unspecified;Abdominal pain, unspecified;Diarrhea, unspecified Presentation: 01/14 21:00 Chief complaint: EMS states: "For the past three or four days, she has had abnormal tw5 foot and hand pain. She has also been having diarrhea, so she took a 'Swazi diarrhea pill' afterwards she reports 4-5 hours of rectal bleeding. ". 21:00 Method Of Arrival: EMS: [facility] tw5 22:00 Coronavirus screen: At this time, the client does not indicate any symptoms associated bm7 with coronavirus-19. Ebola Screen: No symptoms or risks identified at this time. Initial Sepsis Screen: Does the patient meet any 2 criteria? No. Patient's initial sepsis screen is negative. Does the patient have a suspected source of infection? No. Patient's initial sepsis screen is negative. Risk Assessment: Do you want to hurt yourself or someone else? Patient reports no desire to harm self or others. Onset of symptoms is unknown. 22:00 Acuity: AGATA 3 bm7 Triage Assessment: 22:00 General: Appears distressed, uncomfortable, Behavior is anxious, inappropriate for age, bm7 restless. Pain: Complains of pain in epigastric area. EENT: No deficits noted. No signs and/or symptoms were reported regarding the EENT system. Neuro: No deficits noted. Cardiovascular: No deficits noted. Respiratory: No deficits noted. GI: Abdomen is round non-distended, Bowel sounds present X 4 quads. Abd is soft and non tender X 4 quads. : No deficits noted. No signs and/or symptoms were reported regarding the genitourinary system. Derm: No deficits noted. No signs and/or symptoms reported regarding the dermatologic system. Musculoskeletal: No deficits noted. No signs and/or symptoms reported regarding the musculoskeletal system. 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 - Social history:: Smoking status: Patient reports the use of cigarette tobacco products, denies chronic smoking, but will smoke occasionally. Screenin/23 01:16 Abuse screen: Denies threats or abuse. Denies injuries from another. Nutritional lg3 screening: No deficits noted. Tuberculosis screening: No symptoms or risk factors identified. Fall Risk None identified. Assessment: 00:09 General: Appears uncomfortable, Behavior is anxious, grinding teeth. Neuro: Level of bm7 Consciousness is awake, alert, obeys commands. 01:16 General: Appears uncomfortable, Behavior is anxious, crying, fussy, restless. Pain: lg3 Complains of pain in back, right hand and left hand Noted to be crying, moaning, restless. Neuro: Level of Consciousness is awake, alert, obeys commands, Oriented to person, place, time, situation. Cardiovascular: No deficits noted. Denies chest pain, shortness of breath, Capillary refill < 3 seconds Clubbing of nail beds is absent JVD is absent Patient's skin is warm and dry. Respiratory: No deficits noted. Airway is patent Trachea midline Respiratory effort is even, unlabored, Respiratory pattern is regular, symmetrical, Breath sounds are clear bilaterally. GI: No deficits noted. Abdomen is round non-distended, Bowel sounds present X 4 quads. GI: Reports diarrhea, rectal bleeding. : No deficits noted. No signs and/or symptoms were reported regarding the genitourinary system. EENT: No deficits noted. No signs and/or symptoms were reported regarding the EENT system. Derm: No deficits noted. No signs and/or symptoms reported regarding the dermatologic system. Skin is intact, is healthy with good turgor, Skin is dry, Skin is normal, Skin temperature is warm. Musculoskeletal: No deficits noted. No signs and/or symptoms reported regarding the musculoskeletal system. Circulation, motion, and sensation intact. Range of motion: intact in all extremities. 02:57 Reassessment: Patient appears in no apparent distress at this time. No changes from lg3 previously documented assessment. Patient and/or family updated on plan of care and expected duration. Pain level reassessed. Patient is alert, oriented x 3, equal unlabored respirations, skin warm/dry/pink. Vital Signs: 09/22 22:00 BP 119 / 68; Pulse 78; Resp 16; Temp 97.9(TE); Pulse Ox 98% on R/A; Weight 86.64 kg bm7 (R); Height 5 ft. 2 in. (157.48 cm); Pain 10/10; 01/15 01:18 BP 121 / 72; Pulse 77; Resp 17 S; Pulse Ox 98% on R/A; lg3 01/14 22:00 Body Mass Index 34.93 (86.64 kg, 157.48 cm) bm7 ED Course: 01/14 21:00 Patient arrived in ED. tw5 21:22 Javier Abdul PA is PHCP. cp 21:22 Tejinder Anguiano DO is Attending Physician. cp 21:43 Javier Abdul PA is PHCP. cp 21:44 Tejinder Anguiano DO is Attending Physician. cp 22:00 Arm band placed on right wrist. bm7 22:02 Triage completed. bm7 23:45 Miri Abreu is Primary Nurse. tw5 23:49 CMP Sent. tw5 23:49 Lipase Sent. tw5 23:49 Urine Microscopic Only Sent. tw5 01/15 00:26 Initial lab(s) drawn, by ky, sent to lab. Inserted saline lock: 22 gauge in right vc1 wrist, using aseptic technique. Blood collected. 01:16 Patient has correct armband on for positive identification. Placed in gown. Bed in low lg3 position. Call light in reach. Side rails up X 1. Client placed on continuous cardiac and pulse oximetry monitoring. NIBP monitoring applied. Door closed. Noise minimized. Warm blanket given. Family accompanied patient. 01:32 Abdomen In Process Unspecified. EDMS 01:50 Urine Culture Sent. lg3 02:57 No provider procedures requiring assistance completed. IV discontinued, intact, lg3 bleeding controlled, No redness/swelling at site. Pressure dressing applied. Administered Medications: 00:09 Drug: NS 0.9% 1000 ml Route: IV; Rate: 1 bolus; Site: left wrist; bm7 01:50 Follow up: Response: No adverse reaction; IV Status: Completed infusion; IV Intake: lg3 1000ml 01:14 Drug: Ketorolac 15 mg Route: IVP; Site: right wrist; lg3 01:50 Follow up: Response: No adverse reaction; No change in condition lg3 01:50 Drug: Ativan (LORazepam) 1 mg Route: IVP; Site: right wrist; lg3 02:37 Follow up: Response: No adverse reaction; Marked relief of symptoms lg3 02:57 Drug: Neurontin (gabapentin) 300 mg Route: PO; lg3 02:57 Follow up: Response: No adverse reaction lg3 Medication: 00:09 VIS not applicable for this client. bm7 Intake: 01:50 IV: 1000ml; Total: 1000ml. lg3 Outcome: 02:36 Discharge ordered by MD. cp 02:58 Discharged to home ambulatory, with significant other. lg3 02:58 Condition: stable 02:58 Discharge instructions given to patient, Instructed on discharge instructions, follow up and referral plans. medication usage, Demonstrated understanding of instructions, follow-up care, medications, Prescriptions given X 1. 02:58 Patient left the ED. lg3 Signatures: Dispatcher [employer] EDMS Javier Abdul PA PA cp Gibson, Lacie RN RN lg3 Kathy Ramsay, CHARLEY WHITEHEAD bm7 Miri Abreu tw5 Amalia Ansari RN RN vc1
--- NOTE | 2022-01-15 02:37 | EDPHYS ---
Physician Documentation [facility] Name: Roya Anne Age: 51 yrs Sex: Female : 1970 Arrival Date: 01/14/2022 Time: 21:00 Bed 12 Private MD: ED Physician Tejinder Anguiano HPI: 01/14 22:20 This 51 yrs old Female presents to ER via EMS with complaints of Diarrhea. cp 22:20 The patient presents to the emergency department with diarrhea, that is continuous, cp abdominal pain. 22:20 Onset: The symptoms/episode began/occurred 3 day(s) ago. cp 22:20 Possible causes: unknown. Associated signs and symptoms: Pertinent positives: blood in cp stool, Pertinent negatives: constipation, dysuria, fever, vaginal discharge, vomiting. Severity of symptoms: in the emergency department the symptoms are unchanged despite home interventions. Patient also c/o increased pain to hands and feet. Patient with PMHX of DM and neuropathy. Patient denies injury. 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 - Social history:: Smoking status: Patient reports the use of cigarette tobacco products, denies chronic smoking, but will smoke occasionally. ROS: 22:25 Constitutional: Negative for chills, fever, poor PO intake. cp 22:25 Abdomen/GI: Positive for abdominal pain, diarrhea, rectal bleeding, Negative for cp constipation, black/tarry stool. 22:25 Eyes: Negative for injury, pain, redness, and discharge. cp 22:25 ENT: Negative for drainage from ear(s), ear pain, sore throat, difficulty swallowing, difficulty handling secretions. 22:25 Cardiovascular: Negative for chest pain, edema, palpitations. 22:25 Respiratory: Negative for cough, shortness of breath, wheezing. 22:25 : Negative for urinary symptoms, vaginal bleeding, vaginal discharge. 22:25 Neuro: Negative for altered mental status, dizziness, headache, syncope, weakness. 22:25 All other systems are negative. Exam: 22:30 Constitutional: The patient appears in no acute distress, alert, awake, cp non-diaphoretic, non-toxic, well developed, well nourished, obese. 22:30 Head/Face: Normocephalic, atraumatic. cp 22:30 Eyes: Periorbital structures: appear normal, Conjunctiva: normal, no exudate, no cp injection, Sclera: no appreciated abnormality, Lids and lashes: appear normal, bilaterally. 22:30 ENT: External ear(s): are unremarkable, Nose: is normal, Mouth: Lips: moist, Oral cp mucosa: moist, Posterior pharynx: Airway: no evidence of obstruction, patent. 22:30 Neck: ROM/movement: is normal, is supple, without pain, no range of motions limitations, no meningismus, no nuchal rigidity. 22:30 Chest/axilla: Inspection: normal. 22:30 Cardiovascular: Rate: normal, Rhythm: regular, Edema: is not appreciated. 22:30 Respiratory: the patient does not display signs of respiratory distress, Respirations: normal, no use of accessory muscles, no retractions, labored breathing, is not present, Breath sounds: are clear throughout, no decreased breath sounds, no stridor, no wheezing. 22:30 Abdomen/GI: Inspection: obese Bowel sounds: active, all quadrants, Palpation: soft, in all quadrants, mild abdominal tenderness, in all quadrants, rebound tenderness, is not appreciated, voluntary guarding, is not appreciated, involuntary guarding, is not appreciated. 22:30 Back: pain, is absent, ROM is normal. 22:30 Skin: cellulitis, is not appreciated, no rash present. 22:30 Neuro: Orientation: to person, place \T\ time. Mentation: is normal, Motor: moves all fours, strength is normal, Sensation: no obvious gross deficits. 22:30 Psych: Behavior/mood is cooperative, Affect is animated, Delusions/hallucinations are not present. 01/15 01:40 Abdomen/GI: Rectal exam: Stool: brown, guaiac negative. cp Vital Signs: 01/14 22:00 BP 119 / 68; Pulse 78; Resp 16; Temp 97.9(TE); Pulse Ox 98% on R/A; Weight 86.64 kg bm7 (R); Height 5 ft. 2 in. (157.48 cm); Pain 10/10; 01/15 01:18 BP 121 / 72; Pulse 77; Resp 17 S; Pulse Ox 98% on R/A; lg3 01/14 22:00 Body Mass Index 34.93 (86.64 kg, 157.48 cm) bm7 MDM: 01/14 22:10 Patient medically screened. 01/15 02:36 Data reviewed: vital signs, nurses notes, lab test result(s), radiologic studies, CT cp scan. 02:36 Differential diagnosis: gastritis, diverticulitis, viral gastroenteritis, cp gastroenteritis, colitis, hemorrhoids. Counseling: I had a detailed discussion with the patient and/or guardian regarding: the historical points, exam findings, and any diagnostic results supporting the discharge/admit diagnosis, lab results, radiology results, to return to the emergency department if symptoms worsen or persist or if there are any questions or concerns that arise at home. Response to treatment: the patient's symptoms have markedly improved after treatment, and as a result, I will discharge patient. Special discussion: Based on the patient's Hx, exam, and Dx evaluation, there is no indication for emergent surgery or inpatient Tx. It is understood by the patient/guardian that if the Sx's persist or worsen they need to return immediately for re-evaluation. 01/14 22:12 Order name: CBC with Diff; Complete Time: 23:09 cp 01/14 23:09 Interpretation: Normal except: WBC 15.70; ROMAN% 80.9; LYM% 13.2; NEUT A 12.7. cp 01/14 22:12 Order name: CMP; Complete Time: 01:03 cp 01/15 01:03 Interpretation: Normal except: BUN 21; CRE 1.63; GFR 38; AST 57; ALK 143; TP 8.9; GLOB cp 4.9; A/G 0.8. 01/14 22:12 Order name: Lipase; Complete Time: 01:03 cp 01/14 22:12 Order name: Urine Microscopic Only; Complete Time: 00:19 cp 01/15 00:19 Interpretation: Normal except: HYAL >20. cp 01/14 22:12 Order name: Magnesium; Complete Time: 01:03 cp 01/15 01:10 Interpretation: Abnormal: MG 2.6. cp 01/14 22:12 Order name: PT-INR; Complete Time: 23:09 cp 01/15 01:42 Interpretation: Reviewed. 01/14 22:12 Order name: Ptt, Activated; Complete Time: 23:09 01/14 23:45 Order name: Urine Culture tw5 01/14 22:12 Order name: IV Saline Lock; Complete Time: 00:40 01/14 22:12 Order name: Labs collected and sent; Complete Time: 22:43 01/14 22:12 Order name: Urine Test (obtain specimen); Complete Time: 01:21 01/14 23:13 Order name: Labs - recollect needed: green top needed; Complete Time: 00:09 mw2 01/15 00:15 Order name: Urine Drug Screen; Complete Time: 00:19 EDMS 01/15 00:19 Interpretation: METHAMPHETAMINE POSITIVE. 01/15 01:13 Order name: Test, Urine; Complete Time: 01:42 EDMN 01/15 01:42 Interpretation: Reviewed. 01/15 01:16 Order name: Urine Culture EDMS 01/15 01:22 Order name: Abdomen EDMS Administered Medications: 00:09 Drug: NS 0.9% 1000 ml Route: IV; Rate: 1 bolus; Site: left wrist; bm7 01:50 Follow up: Response: No adverse reaction; IV Status: Completed infusion; IV Intake: lg3 1000ml 01:14 Drug: Ketorolac 15 mg Route: IVP; Site: right wrist; lg3 01:50 Follow up: Response: No adverse reaction; No change in condition lg3 01:50 Drug: Ativan (LORazepam) 1 mg Route: IVP; Site: right wrist; lg3 02:37 Follow up: Response: No adverse reaction; Marked relief of symptoms lg3 02:57 Drug: Neurontin (gabapentin) 300 mg Route: PO; lg3 02:57 Follow up: Response: No adverse reaction lg3 Disposition: 01:43 Co-signature as Attending Physician, Tejinder AMEZCUA was immediately available onsite ms3 in the emergency department for consultation in the care of the patient. Disposition Summary: 01/15/22 02:36 Discharge Ordered Location: Home cp Problem: new cp Symptoms: have improved cp Condition: Stable cp Diagnosis - Adverse effect of amphetamines cp - Diabetes mellitus due to underlying condition with diabetic neuropathy, unspecified cp - Abdominal pain, unspecified cp - Diarrhea, unspecified cp Followup: cp - With: Private Physician - When: 1 - 2 days - Reason: Recheck today's complaints Discharge Instructions: - Discharge Summary Sheet cp - Abdominal Pain, Adult cp - Food Choices to Help Relieve Diarrhea, Adult cp - Diarrhea, Adult cp - Neuropathic Pain cp - Diabetic Neuropathy cp - Methamphetamines Use Disorder cp Forms: - Medication Reconciliation Form cp - Thank You Letter cp - Antibiotic Education cp - Prescription Opioid Use cp Prescriptions: - dicyclomine 20 mg Oral Tablet - take 1 tablet by ORAL route 4 times per day; 30 tablet; Refills: 0, Product cp Selection Permitted Signatures: Dispatcher [employer] EDMS Javier Abdul PA PA cp Rupesh Daniels mw2 Marj Juárez, RN RN lg3 Tejinder Anguiano DO DO ms3 Kathy Ramsay RN RN bm7 Miri Abreu tw5 Amalia Ansari RN RN vc1 Corrections: (The following items were deleted from the chart) 01/14 23:45 22:12 Urine Dipstick-Ancillary ordered. cp tw5
[2022-01-15] MEDS ORDERED: GABAPENTIN 300 MG CAP ONE (02:51)
--- NOTE | 2022-01-15 12:04 | RAD REPORT ---
EXAM DESCRIPTION: CT - Abdomen Pelvis Wo Contrast - 01/15/2022 1:30 am CLINICAL HISTORY: The patient is 51 years old and is Female; diarrhea, blood in stool TECHNIQUE: Axial computed tomography images of the abdomen and pelvis without intravenous contrast. Sagittal and coronal reformatted images were created and reviewed. This CT exam was performed usi ng one or more of the following dose reduction techniques: automated exposure control, adjustment o f the mA and/or kV according to patient size, and/or use of iterative reconstruction technique. COMPARISON: 11/23/2018 CT abdomen pelvis with contrast FINDINGS: LUNG BASES: 3 mm subpleural solid nodule noted in the medial right lung base. Per Fleisc hner guidelines, no dedicated imaging follow-up is recommended. ABDOMEN: LIVER: Borderline hepatomegaly. GALLBLADDER AND BILE DUCTS: Cholecystectomy. No ductal dilation. PANCREAS: Unremarkable. No ductal dilation. SPLEEN: Unremarkable. No splenomegaly. ADRENALS: No suspicious mass. KIDNEYS AND URETERS: Unremarkable. No obstructing stones. No hydronephrosis. STOMACH AND BOWEL: Chilaiditi's sign, with interdigitation of the hepatic flexure between the liver and the abdominal wall. No obstruction. No mucosal thickening. PELVIS: APPENDIX: Gas-filled appendix is within normal caliber with no periappendiceal inflammation to sugg est appendicitis. BLADDER: Unremarkable. No stones. REPRODUCTIVE: Unremarkable as visualized. ABDOMEN and PELVIS: INTRAPERITONEAL SPACE: Unremarkable. No free air. No significant fluid collection. BONES/JOINTS: No acute fracture. No dislocation. SOFT TISSUES: Small fat-containing umbilical hernia. VASCULATURE: Unremarkable. No abdominal aortic aneurysm. LYMPH NODES: Unremarkable. No enlarged lymph nodes. IMPRESSION: No acute abnormality within the abdomen or pelvis. Electronically signed by: Edilberto Levi MD 01/15/2022 2:17 AM CDT Due to temporary technical issues with the PACS/Fluency reporting system, reports are being signed by the in house radiologists without review as a courtesy to insure prompt reporting. The interpreting radiologist is fully responsible for the content of the report.
[2022-01-16 14:36] VITALS: TEMP 97.9; O2SAT 98
[2022-01-16 14:38] VITALS: BP 121/72
== END 2022-01-15 02:58 | disposition home or self-care (01) ==
LOC: ER 20:56
DX: R19.7 Diarrhea, unspecified (principal); T43.625A Adverse effect of amphetamines, initial encounter; R10.9 Unspecified abdominal pain; E08.9 Diabetes mellitus due to underlying condition without complications; F17.210 Nicotine dependence, cigarettes, uncomplicated
CPT/HCPCS: 96361; 87088; 85025; 87086; 36415; 83735; 81025; 85610; 85730; 81015; 83690; 80053; 80307; 74176; 96375; 96374; 99284; J7030

== ENCOUNTER 2022-12-17 16:17 | Emergency (ER) | payer OTHER ==
[2022-12-17] MEDS ORDERED: DIPHENHYDRAMINE 50 MG/ML VIAL ONE (16:39)
[2022-12-17] MEDS ORDERED: METOCLOPRAMIDE 10 MG/2mL INJ ONE (16:39)
[2022-12-17] MEDS ORDERED: dexAMETHasone 10 MG/ML VIAL ONE (16:39)
[2022-12-17] MEDS ORDERED: NA CHLORIDE 0.9% 1,000 ML ONE (16:40)
[2022-12-17] MEDS ORDERED: NA CHLORIDE 0.9% 50 ML ONE (16:40)
--- OUTSIDE RECORDS SUMMARY | 2022-12-17 16:50 | XMS REPORT | Continuity of Care Document ---
:1970 Author Organization [facility] t Address [address] [place] [address] Care Team Providers Name Role Phone Mary Ann Garduno Primary Care Physician [phone] KAEL MCCALL Attending Clinician Unavailable TONY FELDMAN Attending Clinician Unavailable TONY FELDMAN Attending Clinician Unavailable Florecita Atkins MD Attending Clinician Princess Fuller Attending Clinician Unavailable Eduardo Newton MD Attending Clinician Doctor Unassigned, [place] Attending Clinician Unavailable Vincenzo Sanches MD Attending Clinician FLORECITA ATKINS Attending Clinician Unavailable Bernadine Callahan MA Attending Clinician Unavailable PRINCESS DOYLE Attending Clinician Unavailable Modesto Yee MD Attending Clinician Unavailable MODESTO YEE Attending Clinician Unavailable Javier Dillon RN Attending Clinician Unavailable AMIRA BALBUENA Attending Clinician Unavailable Amira Lr Attending Clinician Lab, Ang - Db Attending Clinician Unavailable Tika Martinez RN Attending Clinician Unavailable Team, [facility] Attending Clinician UnavailSOFÍA Sanchez Attending Clinician Unavailable TEA DOCKERY Attending Clinician Unavailable ROSALINDA GHOSH Attending Clinician Unavailable Payers Payer Name Policy Type Policy Number Effective Date Expiration Date Lula WILSON O [id number] 2022 00:00:00 MEDICAID OF [place] [id number] 2021 00:00:00 RUSTY [id number] 2014 PLUS/SELECTCARE 00:00:00 Problems Condition Condition Condition Status Onset Resolution Last Treating Co mments Source Name Details Category Date Date Treatment Clinician Date Mixed Mixed Problem Active Common hyperlipid hyperlipid Sp sophia emia emia [facility] Gastroesop Gastroesop Problem Active C ommon hageal hageal Spirit reflux reflux - [facility] disease disease [facility] Irritable Irritable Problem Active 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 - [facility]I with with St constipati constipati Farideh kes on on [facility] Other Other Problem Active Common schizophre schizophre Sp sophia danilo danilo [facility] Heavy Heavy Problem Active Common menses menses [facility] Gastropare Gastropare Problem Active C ommon sis sis [facility] Diabetic Diabetic Problem Active Commo n neuropathy neuropathy Sp sophia [facility] 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 use of use of - CHI insulin insulin [facility] Insomnia Insomnia Problem Active Commo n [facility] Osteoarthr Osteoarthr Problem Active C ommon itis itis [facility] Anemia Anemia Problem Active Common [facility] Schizophre Schizophre Disease Active U nivers danilo danilo [facility] Neuropathy Neuropathy Disease Active U nivers [facility] Hepatitis Hepatitis Disease Active Uni vers C C [facility] DMII DMII Disease Active Univers (diabetes (diabetes [place] mellitus[place] type 2[place] type 2) Medical Branch Bipolar 1 Bipolar 1 Disease Active Uni vers disorder disorder [facility] Neuropathy Neuropathy Problem Active C ommon [facility] Hyperlipid Hyperlipid Problem Active C ommon emia emia [facility] Diabetes Diabetes Problem Active Commo n Spirit - [facility] Type 2 Type 2 Problem Active Common diabetes diabetes Spirit mellitus mellitus - CHI with 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 Medical complicati complicati Ce nter ons ons Type 2 Type 2 Problem Active Common diabetes diabetes Spirit mellitus mellitus - CHI with with St hyperglyce hyperglyce Farideh kes [facility] Allergies, Adverse Reactions, Alerts Allergy Allergy Status Severity Reaction(s) Onset Inactive Treating Comm ents Source Name Type Date Date Clinician NO KNOWN Drug Active Univers ALLERGIE Class ity [facility] Social History Social Habit Start Date Stop Date Quantity Comments Source Gender identity [facility] Sexual orientation Univer sity [facility] History of tobacco Cigarette Smoker University of use [facility] Exposure to 2022-07-23 2022-08-02 Not sure [facility] SARS-CoV-2 (event) 00:00:00 10:00:00 [facility] History of Social 2022-08-02 2022-08-02 Univers ity of function 00:00:00 00:00:00 [facility] Cigarettes smoked 2022-08-02 2022-08-02 Univers ity of current (pack per 00:00:00 00:00:00 ) - Reported Branch Cigarette 2022-08-02 2022-08-02 University of pack-years 00:00:00 00:00:00 [facility] Tobacco use and 2022-08-02 2022-08-02 Former smokeless Uni versity of exposure 00:00:00 00:00:00 tobacco user [facility] Branch Alcohol intake 2022-08-02 2022-08-02 Current University of 00:00:00 00:00:00 non-drinker of [facility] alcohol Branch (finding) Sex Ass[birth year] At [birth year] Universit y of 00:00:00 00:00:00 [facility] Smoking Status Start Date Stop Date Source Ex-smoker 2022-08-02 00:00:00 2022-08-02 00:00:00 Universi ty [facility] Medications Ordered Filled Start Stop Current Ordering Indication Dosage Frequency Signature Comments Components Source Medication Medication Date Date Medication? Clinician (SIG) Name Name [facility] Yes 1{each} 1 Each Univers glucose 7-28 CONTINUOUS ity of scanning 00:00: . 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) E10.65 Misc Blood-Gluco 2022-0 Yes Use as Univ ers se Sensor 7-27 directed ity of (DEXCOM G6 00:00: to check [place] SENSOR) 00 blood Medical Barb sugars for Branch dx E10.65 Blood-Gluco 2022-0 Yes Use as Univ ers se 7-27 directed ity of Transmitter 00:00: [place] (DEXCOM G6 00 blood Medical TRANSMITTER sugars for Br anch ) Barb dx E10.65 Blood-Gluco 2022-0 Yes Use as Univ ers se 7-27 directed ity of [place] 00:[place]: [place] blood Medical (DEXCOM G6 sugars dx 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) E10.65 Misc Blood-Gluco 2022-0 Yes Use as Univ ers se Sensor 7-27 directed ity of (DEXCOM G6 00:00: to check [place] SENSOR) 00 blood Medical Barb sugars for Branch dx E10.65 Blood-Gluco 2022-0 Yes Use as Univ ers se 7-27 directed ity of Transmitter 00:00: [place] (DEXCOM G6 00 blood Medical TRANSMITTER sugars for Br anch ) Barb dx E10.65 methIMAzole 2022-0 Yes [id number] TAKE 1 Univers 5 mg tablet 6-22 TABLET BY ity of 00:00: MOUTH [place] 00 EVERY DAY Medical Branch methIMAzole 2022-0 Yes [id number] TAKE 1 Univers 5 mg tablet 6-22 TABLET BY ity of 00:00: MOUTH [place] 00 EVERY DAY Medical Branch methIMAzole 2022-0 Yes [id number] TAKE 1 Univers 5 mg tablet 6-22 TABLET BY ity of 00:00: MOUTH [place] 00 EVERY DAY Medical Branch methIMAzole 2022-0 Yes [id number] TAKE 1 Univers 5 mg tablet 6-22 TABLET BY ity of 00:00: MOUTH [place] 00 EVERY DAY Medical Branch methIMAzole 3-0 Yes [id number] TAKE 1 Univers 5 mg tablet 6-22 TABLET BY ity of 00:00: MOUTH EVERY DAY Medical Branch METOCLOPRAM 3-0 Yes [id number] TAKE 1 Univers DANIEL HCL 10 6-21 TABLET BY ity of mg tablet 00:00: MOUTH 00 THREE Medical TIMES A Branch DAY METOCLOPRAM 3-0 Yes [id number] TAKE 1 Univers DANIEL HCL 10 6-21 TABLET BY ity of mg tablet 00:00: MOUTH THREE Medical TIMES A Branch DAY METOCLOPRAM 3-0 Yes [id number] TAKE 1 Univers DANIEL HCL 10 6-21 TABLET BY ity of mg tablet 00:00: MOUTH THREE Medical TIMES A Branch DAY METOCLOPRAM 2022-0 Yes [id number] TAKE 1 Univers DANIEL HCL 10 6-21 TABLET BY ity of mg tablet 00:00: MOUTH THREE Medical TIMES A Branch DAY METOCLOPRAM 2022-0 Yes [id number] TAKE 1 Univers DANIEL HCL 10 6-21 TABLET BY ity of mg tablet 00:00: MOUTH THREE Medical TIMES A Branch DAY atorvastati 2022-0 Yes [id number] TAKE 1 Univers n 10 mg 6-09 TABLET BY ity of tablet 00:00: MOUTH 00 EVERYDAY Medical AT BEDTIME Branch atorvastati 3-0 Yes [id number] TAKE 1 Univers n 10 mg 6-09 TABLET BY ity of tablet 00:00: MOUTH 00 EVERYDAY Medical AT BEDTIME Branch atorvastati 3-0 Yes [id number] TAKE 1 Univers n 10 mg 6-09 TABLET BY ity of tablet 00:00: MOUTH 00 EVERYDAY Medical AT BEDTIME Branch atorvastati 3-0 Yes [id number] TAKE 1 Univers n 10 mg 6-09 TABLET BY ity of tablet 00:00: MOUTH 00 EVERYDAY Medical AT BEDTIME Branch atorvastati 3-0 Yes [id number] TAKE 1 Univers n 10 mg 6-09 TABLET BY ity of tablet 00:00: MOUTH 00 EVERYDAY Medical AT BEDTIME Branch atorvastati 3-0 Yes [id number] TAKE 1 Univers n 10 mg 6-09 TABLET BY ity of tablet 00:00: MOUTH 00 EVERYDAY Medical AT BEDTIME Branch atorvastati 3-0 Yes [id number] TAKE 1 Univers n 10 mg 6-09 TABLET BY ity of tablet 00:00: MOUTH [place] 00 EVERYDAY Medical AT BEDTIME Branch FUROSEMIDE 3-0 Yes [id number] 20mg TAKE 1 Univers 20 mg 6-01 TABLET BY ity of tablet 00:00: MOUTH [place] 00 EVERY Medical OTHER DAY Branch FUROSEMIDE 3-0 Yes [id number] 20mg TAKE 1 Univers 20 mg 6-01 TABLET BY ity of tablet 00:00: MOUTH [place] 00 EVERY Medical OTHER DAY Branch FUROSEMIDE 2023-0 Yes [id number] 20mg TAKE 1 Univers 20 mg 6-01 TABLET BY ity of tablet 00:00: MOUTH [place] 00 EVERY Medical OTHER DAY Branch FUROSEMIDE 3-0 Yes [id number] 20mg TAKE 1 Univers 20 mg 6-01 TABLET BY ity of tablet 00:00: MOUTH [place] 00 EVERY Medical OTHER DAY Branch FUROSEMIDE 3-0 Yes [id number] 20mg TAKE 1 Univers 20 mg 6-01 TABLET BY ity of tablet 00:00: MOUTH [place] 00 EVERY Medical OTHER DAY Branch FUROSEMIDE 3-0 Yes [id number] 20mg TAKE 1 Univers 20 mg 6-01 TABLET BY ity of tablet 00:00: MOUTH [place] 00 EVERY Medical OTHER DAY Branch FUROSEMIDE 3-0 Yes [id number] 20mg TAKE 1 Univers 20 mg 6-01 TABLET BY ity of tablet 00:00: MOUTH [place] 00 EVERY Medical OTHER DAY Branch FUROSEMIDE 3-0 Yes [id number] 20mg TAKE 1 Univers 20 mg 6-01 TABLET BY ity of tablet 00:00: MOUTH [place] 00 EVERY Medical OTHER DAY Branch famotidine 2022-0 Yes [id number] 40mg TAKE 1 Univers 40 mg 5-14 TABLET BY ity of tablet 00:00: MOUTH IN [place] 00 THE Medical MORNING Branch AND 1 TABLET IN THE EVENING. famotidine 2022-0 Yes [id number] 40mg TAKE 1 Univers 40 mg 5-14 TABLET BY ity of tablet 00:00: MOUTH IN [place] 00 THE Medical MORNING Branch AND 1 TABLET IN THE EVENING. famotidine 3-0 Yes [id number] 40mg TAKE 1 Univers 40 mg 5-14 TABLET BY ity of tablet 00:00: MOUTH IN [place] 00 THE Medical MORNING Branch AND 1 TABLET IN THE EVENING. famotidine 2022-0 Yes [id number] 40mg TAKE 1 Univers 40 mg 5-14 TABLET BY ity of tablet 00:00: MOUTH IN [place] [address] THE Medical MORNING Branch AND 1 TABLET IN THE EVENING. famotidine 2023-0 Yes [id number] 40mg TAKE 1 Univers 40 mg 5-14 TABLET BY ity of tablet 00:00: MOUTH IN [place] [address] THE Medical MORNING Branch AND 1 TABLET IN THE EVENING. famotidine 2023-0 Yes [id number] 40mg TAKE 1 Univers 40 mg 5-14 TABLET BY ity of tablet 00:00: MOUTH IN [place] [address] THE Medical MORNING Branch AND 1 TABLET IN THE EVENING. famotidine 2023-0 Yes [id number] 40mg TAKE 1 Univers 40 mg 5-14 TABLET BY ity of tablet 00:00: MOUTH IN [place] [address] THE Medical MORNING Branch AND 1 TABLET IN THE EVENING. famotidine 2023-0 Yes [id number] 40mg TAKE 1 Univers 40 mg 5-14 TABLET BY ity of tablet 00:00: MOUTH IN [place] [address] THE Medical MORNING Branch AND 1 TABLET IN THE EVENING. famotidine 2023-0 Yes [id number] 40mg TAKE 1 Univers 40 mg 5-14 TABLET BY ity of tablet 00:00: MOUTH IN [place] [address] THE Medical MORNING Branch AND 1 TABLET IN THE EVENING. famotidine 2023-0 Yes [id number] 40mg TAKE 1 Univers 40 mg 5-14 TABLET BY ity of tablet 00:00: MOUTH IN [place] [address] THE Medical MORNING Branch AND 1 TABLET IN THE EVENING. Blood-Gluco 2023-0 Yes Use as Univ ers se Sensor 5-12 directed ity of (DEXCOM G6 00:00: to check [place] SENSOR) 00 blood Medical Barb sugars for Branch dx E10.65 Blood-Gluco 2023-0 Yes Use as Univ ers se Sensor 5-12 directed ity of (DEXCOM G6 00:00: to check [place] SENSOR) 00 blood Medical Barb sugars for Branch dx E10.65 Blood-Gluco 2023-0 Yes Use as Univ ers se Sensor 5-12 directed ity of (DEXCOM G6 00:00: to check [place] as SENSOR) 00 blood Medical Barb sugars for Branch dx E10.65 Blood-Gluco 2023-0 Yes Use as Univ ers se Sensor 5-12 directed ity of (DEXCOM G6 00:00: to check [place] as SENSOR) 00 blood Medical Barb sugars for Branch dx E10.65 Blood-Gluco 2023-0 Yes Use as Univ ers se Sensor 5-12 directed ity of (DEXCOM G6 00:00: to check [place] as SENSOR) 00 blood Medical Barb sugars for Branch dx E10.65 Blood-Gluco 2023-0 Yes Use as Univ ers se Sensor 5-12 directed ity of (DEXCOM G6 00:00: to check [place] SENSOR) 00 blood Medical Barb sugars for Branch dx E10.65 Blood-Gluco 2023-0 Yes Use as Univ ers se Sensor 5-12 directed ity of (DEXCOM G6 00:00: to check [place] as SENSOR) 00 blood Medical Barb sugars for Branch dx E10.65 Blood-Gluco 2023-0 Yes Use as Univ ers se Sensor 5-12 directed ity of (DEXCOM G6 00:00: to check [place] SENSOR) 00 blood Medical Barb sugars for Branch dx E10.65 Blood-Gluco 2023-0 Yes Use as Univ ers se Sensor 5-12 directed ity of (DEXCOM G6 00:00: to check [place] as SENSOR) 00 blood Medical Barb sugars for Branch dx E10.65 Blood-Gluco 2023-0 2023- No Use as Uni vers se Sensor 5-12 27 directed ity o f (DEXCOM G6 00:00: [place] SENS[place] 00 :00 blood Medical Barb sugars for Branch dx E10.65 gabapentin 3-0 Yes [id number] 300mg Take 1 Univers 300 mg 5-10 capsule by ity of capsule 00:00: mouth in [address] morning [place] and 1 capsule in the evening. dicyclomine 2023-0 Yes [id number] 20mg Take 1 Univers 20 mg 5-10 tablet by ity of tablet 00:00: mouth in [address] morning [place] and 1 tablet in the evening. gabapentin 2023-0 Yes [id number] 300mg Take 1 Univers 300 mg 5-10 capsule by ity of capsule 00:00: mouth in [address] morning [place] and 1 capsule in the evening. dicyclomine 2023-0 Yes [id number] 20mg Take 1 Univers 20 mg 5-10 tablet by ity of tablet 00:00: mouth in [address] [place] and 1 tablet in the evening. gabapentin 2023-0 Yes [id number] 300mg Take 1 Univers 300 mg 5-10 capsule by ity of capsule 00:00: mouth in [place] [address] the Medical morning Branch and 1 capsule in the evening. dicyclomine 2023-0 Yes [id number] 20mg Take 1 Univers 20 mg 5-10 tablet by ity of tablet 00:00: mouth in [place] [address] the Medical morning Branch and 1 tablet in the evening. gabapentin 3-0 Yes [id number] 300mg Take 1 Univers 300 mg 5-10 capsule by ity of capsule 00:00: mouth in [place] [address] the Medical morning Branch and 1 capsule in the evening. dicyclomine 2023-0 Yes [id number] 20mg Take 1 Univers 20 mg 5-10 tablet by ity of tablet 00:00: mouth in [place] [address] the Medical morning Branch and 1 tablet in the evening. zolpidem 10 3-0 Yes [id number] 10mg Take 1 Univers mg tablet 5-10 tablet by ity o f 00:00: mouth at [place] [address] bedtime as Medical needed for Branch Insomnia. gabapentin 3-0 Yes [id number] 300mg Take 1 Univers 300 mg 5-10 capsule by ity of capsule 00:00: mouth in [place] [address] the Medical morning Branch and 1 capsule in the evening. dicyclomine 2023-0 Yes [id number] 20mg Take 1 Univers 20 mg 5-10 tablet by ity of tablet 00:00: mouth in [place] [address] the Medical morning Branch and 1 tablet in the evening. zolpidem 10 3-0 Yes [id number] 10mg Take 1 Univers mg tablet 5-10 tablet by ity o f 00:00: mouth at [place] [address] bedtime as Medical needed for Branch Insomnia. gabapentin 2023-0 Yes [id number] 300mg Take 1 Univers 300 mg 5-10 capsule by ity of capsule 00:00: mouth in [place] [address] the Medical morning Branch and 1 capsule in the evening. dicyclomine 2023-0 Yes [id number] 20mg Take 1 Univers 20 mg 5-10 tablet by ity of tablet 00:00: mouth in [place] [address] the Medical morning Branch and 1 tablet in the evening. gabapentin 2023-0 Yes [id number] 300mg Take 1 Univers 300 mg 5-10 capsule by ity of capsule 00:00: mouth in [place] [address] the Medical morning Branch and 1 capsule in the evening. dicyclomine 2023-0 Yes [id number] 20mg Take 1 Univers 20 mg 5-10 tablet by ity of tablet 00:00: mouth in [place] 00 the Medical morning Branch and 1 tablet in the evening. zolpidem 10 2022-0 Yes [id number] 10mg Take 1 Univers mg tablet 5-10 tablet by ity o f 00:00: mouth at [place] [address] bedtime as Medical needed for Branch Insomnia. gabapentin 2022-0 Yes [id number] 300mg Take 1 Univers 300 mg 5-10 capsule by ity of capsule 00:00: mouth in [place] 00 the Medical morning Branch and 1 capsule in the evening. dicyclomine 2022-0 Yes [id number] 20mg Take 1 Univers 20 mg 5-10 tablet by ity of tablet 00:00: mouth in [place] 00 the Medical morning Branch and 1 tablet in the evening. zolpidem 10 2022-0 Yes [id number] 10mg Take 1 Univers mg tablet 5-10 tablet by ity o f 00:00: mouth at [place] [address] bedtime as Medical needed for Branch Insomnia. gabapentin 2022-0 Yes [id number] 300mg Take 1 Univers 300 mg 5-10 capsule by ity of capsule 00:00: mouth in [place] 00 the Medical morning Branch and 1 capsule in the evening. dicyclomine 2022-0 Yes [id number] 20mg Take 1 Univers 20 mg 5-10 tablet by ity of tablet 00:00: mouth in [place] 00 the Medical morning Branch and 1 tablet in the evening. zolpidem 10 2022-0 Yes [id number] 10mg Take 1 Univers mg tablet 5-10 tablet by ity o f 00:00: mouth at [place] [address] bedtime as Medical needed for Branch Insomnia. gabapentin 2022-0 Yes [id number] 300mg Take 1 Univers 300 mg 5-10 capsule by ity of capsule 00:00: mouth in [place] 00 the Medical morning Branch and 1 capsule in the evening. dicyclomine 2023-0 Yes [id number] 20mg Take 1 Univers 20 mg 5-10 tablet by ity of tablet 00:00: mouth in [place] 00 the Medical morning Branch and 1 tablet in the evening. zolpidem 10 2022-0 Yes [id number] 10mg Take 1 Univers mg tablet 5-10 tablet by ity o f 00:00: mouth at [place] [address] bedtime as Medical needed for Branch Insomnia. gabapentin 2023-0 Yes [id number] 300mg Take 1 Univers 300 mg 5-10 capsule by ity of capsule 00:00: mouth in [place] 00 the Medical morning Branch and 1 capsule in the evening. dicyclomine 2023-0 Yes [id number] 20mg Take 1 Univers 20 mg 5-10 tablet by ity of tablet 00:00: mouth in [place] 00 the Medical morning Branch and 1 tablet in the evening. zolpidem 10 2022-0 Yes [id number] 10mg Take 1 Univers mg tablet 5-10 tablet by ity o f 00:00: mouth at [place] [address] bedtime as Medical needed for Branch Insomnia. gabapentin 2022-0 Yes [id number] 300mg Take 1 Univers 300 mg 5-10 capsule by ity of capsule 00:00: mouth in [place] 00 the Medical morning Branch and 1 capsule in the evening. dicyclomine 2022-0 Yes [id number] 20mg Take 1 Univers 20 mg 5-10 tablet by ity of tablet 00:00: mouth in [place] 00 the Medical morning Branch and 1 tablet in the evening. zolpidem 10 2022-0 Yes [id number] 10mg Take 1 Univers mg tablet 5-10 tablet by ity o f 00:00: mouth at [place] [address] bedtime as Medical needed for Branch Insomnia. gabapentin 2022-0 Yes [id number] 300mg Take 1 Univers 300 mg 5-10 capsule by ity of capsule 00:00: mouth in [place] [address] the Medical morning Branch and 1 capsule in the evening. dicyclomine 2023-0 Yes [id number] 20mg Take 1 Univers 20 mg 5-10 tablet by ity of tablet 00:00: mouth in [place] 00 the Medical morning Branch and 1 tablet in the evening. zolpidem 10 3-0 Yes [id number] 10mg Take 1 Univers mg tablet 5-10 tablet by ity o f 00:00: mouth at [place] [address] bedtime as Medical needed for Branch Insomnia. gabapentin 3-0 Yes [id number] 300mg Take 1 Univers 300 mg 5-10 capsule by ity of capsule 00:00: mouth in [place] [address] the Medical morning Branch and 1 capsule in the evening. dicyclomine 2023-0 Yes [id number] 20mg Take 1 Univers 20 mg 5-10 tablet by ity of tablet 00:00: mouth in [place] 00 the Medical morning Branch and 1 tablet in the evening. zolpidem 10 2022-0 Yes [id number] 10mg Take 1 Univers mg tablet 5-10 tablet by ity o f 00:00: mouth at [place] [address] bedtime as Medical needed for Branch Insomnia. gabapentin 3-0 Yes [id number] 300mg Take 1 Univers 300 mg 5-10 capsule by ity of capsule 00:00: mouth in [place] 00 the Medical morning Branch and 1 capsule in the evening. dicyclomine 3-0 Yes [id number] 20mg Take 1 Univers 20 mg 5-10 tablet by ity of tablet 00:00: mouth in [place] 00 the Medical morning Branch and 1 tablet in the evening. zolpidem 10 2022-0 Yes [id number] 10mg Take 1 Univers mg tablet 5-10 tablet by ity o f 00:00: mouth at [place] [address] bedtime as Medical needed for Branch Insomnia. gabapentin 2022-0 Yes [id number] 300mg Take 1 Univers 300 mg 5-10 capsule by ity of capsule 00:00: mouth in [place] 00 the Medical morning Branch and 1 capsule in the evening. dicyclomine 3-0 Yes [id number] 20mg Take 1 Univers 20 mg 5-10 tablet by ity of tablet 00:00: mouth in [place] 00 the Medical morning Branch and 1 tablet in the evening. zolpidem 10 2022-0 Yes [id number] 10mg Take 1 Univers mg tablet 5-10 tablet by ity o f 00:00: mouth at [place] [address] bedtime as Medical needed for Branch Insomnia. LISINOPRIL 2023-0 Yes [id number] TAKE 1 U nivers 5 mg tablet 5-07 TABLET BY ity of 00:00: MOUTH [place] [address] EVERY DAY Medical Branch LISINOPRIL 2023-0 Yes [id number] TAKE 1 U nivers 5 mg tablet 5-07 TABLET BY ity of 00:00: MOUTH [place] EVERY DAY Medical Branch LISINOPRIL 2023-0 Yes [id number] TAKE 1 U nivers 5 mg tablet 5-07 TABLET BY ity of 00:00: MOUTH [place] EVERY DAY Medical Branch LISINOPRIL 2023-0 Yes [id number] TAKE 1 U nivers 5 mg tablet 5-07 TABLET BY ity of 00:00: MOUTH [place] [address] EVERY DAY Medical Branch LISINOPRIL 2023-0 Yes [id number] TAKE 1 U nivers 5 mg tablet 5-07 TABLET BY ity of 00:00: MOUTH [place] 00 EVERY DAY Medical Branch LISINOPRIL 2023-0 Yes [id number] TAKE 1 U nivers 5 mg tablet 5-07 TABLET BY ity of 00:00: MOUTH [place] 00 EVERY DAY Medical Branch LISINOPRIL 2023-0 Yes [id number] TAKE 1 U nivers 5 mg tablet 5-07 TABLET BY ity of 00:00: MOUTH [place] EVERY DAY Medical Branch LISINOPRIL 2023-0 Yes [id number] TAKE 1 U nivers 5 mg tablet 5-07 TABLET BY ity of 00:00: MOUTH [place] 00 EVERY DAY Medical Branch LISINOPRIL 2023-0 Yes [id number] TAKE 1 U nivers 5 mg tablet 5-07 TABLET BY ity of 00:00: MOUTH [place] EVERY DAY Medical Branch LISINOPRIL 2023-0 Yes [id number] TAKE 1 U nivers 5 mg tablet 5-07 TABLET BY ity of 00:00: MOUTH [place] EVERY DAY Medical Branch LISINOPRIL 2023-0 Yes [id number] TAKE 1 U nivers 5 mg tablet 5-07 TABLET BY ity of 00:00: MOUTH [place] 00 EVERY DAY Medical Branch LISINOPRIL 2023-0 Yes [id number] TAKE 1 U nivers 5 mg tablet 5-07 TABLET BY ity of 00:00: MOUTH [place] 00 EVERY DAY Medical Branch LISINOPRIL 2023-0 Yes [id number] TAKE 1 U nivers 5 mg tablet 5-07 TABLET BY ity of 00:00: MOUTH [place] 00 EVERY DAY Medical Branch LISINOPRIL 2023-0 Yes [id number] TAKE 1 U nivers 5 mg tablet 5-07 TABLET BY ity of 00:00: MOUTH [place] 00 EVERY DAY Medical Branch LISINOPRIL 2023-0 Yes [id number] TAKE 1 U nivers 5 mg tablet 5-07 TABLET BY ity of 00:00: MOUTH [place] 00 EVERY DAY Medical Branch LISINOPRIL 2023-0 Yes [id number] TAKE 1 U nivers 5 mg tablet 5-07 TABLET BY ity of 00:00: MOUTH [place] 00 EVERY DAY Medical Branch LISINOPRIL 2023-0 Yes [id number] TAKE 1 U nivers 5 mg tablet 5-07 TABLET BY ity of 00:00: MOUTH [place] 00 EVERY DAY Medical Branch LISINOPRIL 2023-0 Yes [id number] TAKE 1 U nivers 5 mg tablet 07 TABLET BY ity of 00:00: MOUTH [place] 00 EVERY DAY Medical Branch Blood-Gluco 2022-0 Yes Use as Univ ers se 5- directed ity of [place] 00:[place] 00 blood Medical (DEXCOM G6 sugars dx 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) E10.65 [facility] Blood-Gluco 2022-0 Yes Use as Univ ers se 5- directed ity of Transmitter 00:00: [place] check [place] (DEXCOM G6 00 blood Medical TRANSMITTER sugars for Br anch ) Barb dx E10.65 Blood-Gluco 2022-0 Yes Use as Univ ers se 5- directed ity of [place],Keshawn 00:00: [place] nuous 00 blood Medical (DEXCOM G6 sugars dx 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) E10.65 [facility] [place] Blood-Gluco 2022-0 Yes Use as Univ ers se 5- directed ity of Transmitter 00:00: [place] (DEXCOM G6 00 blood Medical TRANSMITTER sugars for Br anch ) Barb dx E10.65 Blood-Gluco 2022-0 Yes Use as Univ ers se 5- directed ity of [place],Keshawn 00:00: [place] nuous 00 blood Medical (DEXCOM G6 sugars dx 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) E10.65 [facility] [place] Blood-Gluco 3-0 Yes Use as Univ ers se 5- directed ity of Transmitter 00:00: [place] (DEXCOM G6 00 blood Medical TRANSMITTER sugars for Br anch ) Barb dx E10.65 Blood-Gluco 3-0 Yes Use as Univ ers se 5- directed ity of [place],Keshawn 00:00: [place] nuous 00 blood Medical (DEXCOM G6 sugars dx 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) E10.65 [facility] [place] Blood-Gluco 3-0 Yes Use as Univ ers se 5- directed ity of Transmitter 00:00: [place] (DEXCOM G6 00 blood Medical TRANSMITTER sugars for Br anch ) Barb dx E10.65 Blood-Gluco 3-0 Yes Use as Univ ers se 5- directed ity of [place],Keshawn 00:00: [place] nuous 00 blood Medical (DEXCOM G6 sugars dx 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) E10.65 [facility] [place] Blood-Gluco 2023-0 Yes Use as Univ ers se 5- directed ity of Transmitter 00:00: to [place] (DEXCOM G6 00 blood Medical TRANSMITTER sugars for Br anch ) Barb dx E10.65 Blood-Gluco 3-0 Yes Use as Univ ers se 5- directed ity of [place],Keshawn 00:00: [place] nuous 00 blood Medical (DEXCOM G6 sugars dx 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) E10.65 [facility] [place] Blood-Gluco 2023-0 Yes Use as Univ ers se 5- directed ity of Transmitter 00:00: to [place] (DEXCOM G6 00 blood Medical TRANSMITTER sugars for Br anch ) Abrb dx E10.65 Blood-Gluco 3-0 Yes Use as Univ ers se 5- directed ity of [place],Keshawn 00:00: [place] nuous 00 blood Medical (DEXCOM G6 sugars dx 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) E10.65 [facility] [place] Blood-Gluco 2023-0 Yes Use as Univ ers se 5- directed ity of Transmitter 00:00: [place] (DEXCOM G6 00 blood Medical TRANSMITTER sugars for Br anch ) Barb dx E10.65 Blood-Gluco 3-0 Yes Use as Univ ers se 5- directed ity of [place],Keshawn 00:00: [place] nuous 00 blood Medical (DEXCOM G6 sugars dx 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) E10.65 [facility] [place] Blood-Gluco 2023-0 Yes Use as Univ ers se 5- directed ity of Transmitter 00:00: [place] (DEXCOM G6 00 blood Medical TRANSMITTER sugars for Br anch ) Barb dx E10.65 Blood-Gluco 2023-0 Yes Use as Univ ers se 5- directed ity of [place]eshawn 00:00: [place] nuous 00 blood Medical (DEXCOM G6 sugars dx 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) E10.65 [facility] [place] Blood-Gluco 2023-0 Yes Use as Univ ers se 5- directed ity of Transmitter 00:00: [place] (DEXCOM G6 00 blood Medical TRANSMITTER sugars for Br anch ) Barb dx E10.65 Blood-Gluco 2023-0 Yes Use as Univ ers se 5- directed ity of [place]eshawn 00:00: [place] nuous 00 blood Medical (DEXCOM G6 sugars dx 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) E10.65 Misc Blood-Gluco 2023-0 Yes Use as Univ ers se 5- directed ity of Transmitter 00:00: to [place] (DEXCOM G6 00 blood Medical TRANSMITTER sugars for Br anch ) Brab dx E10.65 Blood-Gluco 2023-0 Yes Use as Univ ers se 5- directed ity of [place],Keshawn 00:00: to [place] nuous 00 blood Medical (DEXCOM G6 sugars dx 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) E10.65 Misc Blood-Gluco 2023-0 Yes Use as Univ ers se 5- directed ity of Transmitter 00:00: to [place] (DEXCOM G6 00 blood Medical TRANSMITTER sugars for Br anch ) Barb dx E10.65 Blood-Gluco 2023-0 Yes Use as Univ ers se 5- directed ity of [place],Keshawn 00:00: to [place] nuous 00 blood Medical (DEXCOM G6 sugars dx 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) E10.65 Misc Blood-Gluco 2023-0 Yes Use as Univ ers se 5- directed ity of Transmitter 00:00: to check [place] (DEXCOM G6 00 blood Medical TRANSMITTER sugars for Br anch ) Barb dx E10.65 Blood-Gluco 3-0 Yes Use as Univ ers se 5- directed ity of [place]eshawn 00:00: to [place] nuous 00 blood Medical (DEXCOM G6 sugars dx 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) E10.65 Misc Blood-Gluco 2023-0 Yes Use as Univ ers se 5- directed ity of Transmitter 00:00: to check [place] (DEXCOM G6 00 blood Medical TRANSMITTER sugars for Br anch ) Barb dx E10.65 Blood-Gluco 2023-0 Yes Use as Univ ers se 5- directed ity of [place]eshawn 00:00: to [place] nuous 00 blood Medical (DEXCOM G6 sugars dx 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) E10.65 Misc Blood-Gluco 2023-0 Yes Use as Univ ers se 5- directed ity of Transmitter 00:00: to check [place] (DEXCOM G6 00 blood Medical TRANSMITTER sugars for Br anch ) Barb dx E10.65 Blood-Gluco 2023-0 Yes Use as Univ ers se 5- directed ity of [place]hawn 00:00: to [place] nuous 00 blood Medical (DEXCOM G6 sugars dx 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) E10.65 [facility] [place] Blood-Gluco 2022-0 Yes Use as Univ ers se 5 directed ity of Transmitter 00:00: to check [place] (DEXCOM G6 00 blood Medical TRANSMITTER sugars for Br anch ) Barb dx E10.65 Blood-Gluco 2022-0 Yes Use as Univ ers se 08-23 directed ity of [place]eshawn 00:00: to check [place] nuous 00 blood Medical (DEXCOM G6 sugars dx 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) E10.65 [facility] [place] Blood-Gluco 2022-0 Yes Use as Univ ers se 08-23 directed ity of Transmitter 00:00: to check [place] (DEXCOM G6 00 blood Medical TRANSMITTER sugars for Br anch ) Barb dx E10.65 Blood-Gluco 0 Yes Use as Univ ers se 08-23 directed ity of [place]eshawn 00:00: to check [place] nuous 00 blood Medical (DEXCOM G6 sugars dx 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) E10.65 [facility] [place] Blood-Gluco 2022-0 Yes Use as Univ ers se 08-23 directed ity of Transmitter 00:00: to check [place] (DEXCOM G6 00 blood Medical TRANSMITTER sugars for Br anch ) Barb dx E10.65 Blood-Gluco 2022-0 2022- No Use as Uni vers se 08-23 directed ity of [place],Keshawn 00:00: 00:00 [place] check [place] nuous 00 :00 blood Medical (DEXCOM G6 sugars dx 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) E10.65 [facility] [place] Blood-Gluco 2022-0 2022- No Use as Uni vers se 08-23 directed ity of Transmitter 00:00: 00:00 to check [place] (DEXCOM G6 00 :00 blood Medical TRANSMITTER sugars for Br anch ) Barb dx E10.65 FUROSEMIDE 2022-0 Yes [id number] 20mg TAKE 1 Univers 20 mg 4-27 TABLET BY ity of tablet 00:00: MOUTH [place] 00 EVERY Medical OTHER DAY Branch FUROSEMIDE 2022-0 Yes [id number] 20mg TAKE 1 Univers 20 mg 4-27 TABLET BY ity of tablet 00:00: MOUTH [place] EVERY Medical OTHER DAY Branch FUROSEMIDE 2022-0 Yes [id number] 20mg TAKE 1 Univers 20 mg 4-27 TABLET BY ity of tablet 00:00: MOUTH [place] 00 EVERY Medical OTHER DAY Branch FUROSEMIDE 2023-0 Yes [id number] 20mg TAKE 1 Univers 20 mg 4-27 TABLET BY ity of tablet 00:00: MOUTH [place] 00 EVERY Medical OTHER DAY Branch FUROSEMIDE 2023-0 Yes [id number] 20mg TAKE 1 Univers 20 mg 4-27 TABLET BY ity of tablet 00:00: MOUTH [place] 00 EVERY Medical OTHER DAY Branch FUROSEMIDE 2023-0 Yes [id number] 20mg TAKE 1 Univers 20 mg 4-27 TABLET BY ity of tablet 00:00: MOUTH [place] 00 EVERY Medical OTHER DAY Branch FUROSEMIDE 2023-0 Yes [id number] 20mg TAKE 1 Univers 20 mg 4-27 TABLET BY ity of tablet 00:00: MOUTH [place] 00 EVERY Medical OTHER DAY Branch FUROSEMIDE 2023-0 Yes [id number] 20mg TAKE 1 Univers 20 mg 4-27 TABLET BY ity of tablet 00:00: MOUTH [place] 00 EVERY Medical OTHER DAY Branch FUROSEMIDE 2023-0 Yes [id number] 20mg TAKE 1 Univers 20 mg 4-27 TABLET BY ity of tablet 00:00: MOUTH [place] 00 EVERY Medical OTHER DAY Branch FUROSEMIDE 2023-0 Yes [id number] 20mg TAKE 1 Univers 20 mg 4-27 TABLET BY ity of tablet 00:00: MOUTH [place] 00 EVERY Medical OTHER DAY Branch FUROSEMIDE 2023-0 Yes [id number] 20mg TAKE 1 Univers 20 mg 4-27 TABLET BY ity of tablet 00:00: MOUTH [place] 00 EVERY Medical OTHER DAY Branch FUROSEMIDE 2023-0 Yes [id number] 20mg TAKE 1 Univers 20 mg 4-27 TABLET BY ity of tablet 00:00: MOUTH [place] 00 EVERY Medical OTHER DAY Branch FUROSEMIDE 2023-0 Yes [id number] 20mg TAKE 1 Univers 20 mg 4-27 TABLET BY ity of tablet 00:00: MOUTH [place] 00 EVERY Medical OTHER DAY Branch FUROSEMIDE 2023-0 3- No [id number] 20mg TAKE 1 Univers 20 mg 4-27 09-23 TABLET BY ity of tablet 00:00: 00:00 MOUTH [place] 00 :00 EVERY Medical OTHER DAY Branch Blood-Gluco 2022-0 Yes Use as Univ ers se 4-25 directed ity of [place]eshawn 00:00: to check [place] nuous 00 blood Medical (DEXCOM G6 sugars dx 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) E10.65 Mis Blood-Gluco 2022-0 Yes Use as Univ ers se 4-25 directed ity of Transmitter 00:00: to check [place] (DEXCOM G6 00 blood Medical TRANSMITTER sugars for Br anch ) Barb dx E10.65 Blood-Gluco 2022-0 Yes Use as Univ ers se 4-25 directed ity of [place]eshawn 00:00: to check [place] nuous 00 blood Medical (DEXCOM G6 sugars dx 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) E10.65 [facility] [place] Blood-Gluco 2022-0 Yes Use as Univ ers se 4-25 directed ity of Transmitter 00:00: to check [place] (DEXCOM G6 00 blood Medical TRANSMITTER sugars for Br anch ) Barb dx E10.65 Blood-Gluco 2022-0 Yes Use as Univ ers se 425 directed ity of [place],Keshawn 00:00: to check [place] nuous 00 blood Medical (DEXCOM G6 sugars dx 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) E10.65 [facility] [place] Blood-Gluco 2022-0 Yes Use as Univ ers se 4-25 directed ity of Transmitter 00:00: to check [place] (DEXCOM G6 00 blood Medical TRANSMITTER sugars for Br anch ) Barb dx E10.65 Blood-Gluco 2022-0 Yes Use as Univ ers se 4-25 directed ity of [place]eshawn 00:00: to check [place] nuous 00 blood Medical (DEXCOM G6 sugars dx 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) E10.65 [facility] [place] Blood-Gluco 2022-0 Yes Use as Univ ers se 4-25 directed ity of Transmitter 00:00: to check [place] (DEXCOM G6 00 blood Medical TRANSMITTER sugars for Br anch ) Barb dx E10.65 Blood-Gluco 2022-0 2022- No Use as Uni vers se 425 08-23 directed ity of [place],Keshawn 00:00: 00:00 [place] check [place] nuous 00 :00 blood Medical (DEXCOM G6 sugars dx 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) E10.65 [facility] [place] Blood-Gluco 202-0 2022- No Use as Uni vers se 425 08-23 directed ity of Transmitter 00:00: 00:00 to check [place] (DEXCOM G6 00 :00 blood Medical TRANSMITTER sugars for Br anch ) Barb dx E10.65 Alcohol 2022-0 Yes Use Univers Swabs PadM 4-22 alcohol ity of 00:00: pad to [place] clean area Medical of skin Branch before testing UP TO SIX TIMES DAILY AND USE TWICE DAILY before insulin injection (total EIGHT TIMES A ONE TIME A DAY) Alcohol 2022- Yes Use Univers Swabs PadM 4-22 alcohol ity of 00:00: pad to [place] clean area Medical of skin Branch before testing UP TO SIX TIMES DAILY AND USE TWICE DAILY before insulin injection (total EIGHT TIMES A ONE TIME A DAY) Alcohol 2022- Yes Use Univers Swabs PadM 4-22 alcohol ity of 00:00: pad to clean area Medical of skin Branch before testing UP TO SIX TIMES DAILY AND USE TWICE DAILY before insulin injection (total EIGHT TIMES A ONE TIME A DAY) Alcohol 2022- Yes Use Univers Swabs PadM 4-22 alcohol ity of 00:00: pad to clean area Medical of skin Branch before testing UP TO SIX TIMES DAILY AND USE TWICE DAILY before insulin injection (total EIGHT TIMES A ONE TIME A DAY) Alcohol 2022-0 Yes Use Univers Swabs PadM 4-22 alcohol ity of 00:00: pad to clean area Medical of skin Branch before testing UP TO SIX TIMES DAILY AND USE TWICE DAILY before insulin injection (total EIGHT TIMES A ONE TIME A DAY) Alcohol 2022- Yes Use Univers Swabs PadM 4-22 alcohol ity of 00:00: pad to clean area Medical of skin Branch before testing UP TO SIX TIMES DAILY AND USE TWICE DAILY before insulin injection (total EIGHT TIMES A ONE TIME A DAY) Alcohol 2022- Yes Use Univers Swabs PadM 4-22 alcohol ity of 00:00: pad to clean area Medical of skin Branch before testing UP TO SIX TIMES DAILY AND USE TWICE DAILY before insulin injection (total EIGHT TIMES A ONE TIME A DAY) Alcohol 2022-0 Yes Use Univers Swabs PadM 4-22 alcohol ity of 00:00: pad to clean area Medical of skin Branch before testing UP TO SIX TIMES DAILY AND USE TWICE DAILY before insulin injection (total EIGHT TIMES A ONE TIME A DAY) Alcohol 2022-0 Yes Use Univers Swabs PadM 4-22 alcohol ity of 00:00: pad to [place] clean area Medical of skin Branch before testing UP TO SIX TIMES DAILY AND USE TWICE DAILY before insulin injection (total EIGHT TIMES A ONE TIME A DAY) Alcohol 2022-0 Yes Use Univers Swabs PadM 4-22 alcohol ity of 00:00: pad to clean area Medical of skin Branch before testing UP TO SIX TIMES DAILY AND USE TWICE DAILY before insulin injection (total EIGHT TIMES A ONE TIME A DAY) Alcohol 2022- Yes Use Univers Swabs PadM 4-22 alcohol ity of 00:00: pad to clean area Medical of skin Branch before testing UP TO SIX TIMES DAILY AND USE TWICE DAILY before insulin injection (total EIGHT TIMES A ONE TIME A DAY) Alcohol Yes Use Univers Swabs PadM 4-22 alcohol ity of 00:00: pad to clean area Medical of skin Branch before testing UP TO SIX TIMES DAILY AND USE TWICE DAILY before insulin injection (total EIGHT TIMES A ONE TIME A DAY) Alcohol Yes Use Univers Swabs PadM 4-22 alcohol ity of 00:00: pad to clean area Medical of skin Branch before testing UP TO SIX TIMES DAILY AND USE TWICE DAILY before insulin injection (total EIGHT TIMES A ONE TIME A DAY) Alcohol Yes Use Univers Swabs PadM 4-22 alcohol ity of 00:00: pad to clean area Medical of skin Branch before testing UP TO SIX TIMES DAILY AND USE TWICE DAILY before insulin injection (total EIGHT TIMES A ONE TIME A DAY) Alcohol 2022- Yes Use Univers Swabs PadM 4-22 alcohol ity of 00:00: pad to clean area Medical of skin Branch before testing UP TO SIX TIMES DAILY AND USE TWICE DAILY before insulin injection (total EIGHT TIMES A ONE TIME A DAY) Alcohol 2022- Yes Use Univers Swabs PadM 4-22 alcohol ity of 00:00: pad to clean area Medical of skin Branch before testing UP TO SIX TIMES DAILY AND USE TWICE DAILY before insulin injection (total EIGHT TIMES A ONE TIME A DAY) Alcohol 2022- Yes Use Univers Swabs PadM 4-22 alcohol ity of 00:00: pad to clean area Medical of skin Branch before testing UP TO SIX TIMES DAILY AND USE TWICE DAILY before insulin injection (total EIGHT TIMES A ONE TIME A DAY) Alcohol 2022- Yes Use Univers Swabs PadM 4-22 alcohol ity of 00:00: pad to clean area Medical of skin Branch before testing UP TO SIX TIMES DAILY AND USE TWICE DAILY before insulin injection (total EIGHT TIMES A ONE TIME A DAY) Alcohol Yes Use Univers Swabs PadM 4-22 alcohol ity of 00:00: pad to clean area Medical of skin Branch before testing UP TO SIX TIMES DAILY AND USE TWICE DAILY before insulin injection (total EIGHT TIMES A ONE TIME A DAY) Alcohol Yes Use Univers Swabs PadM 4-22 alcohol ity of 00:00: pad to clean area Medical of skin Branch before testing UP TO SIX TIMES DAILY AND USE TWICE DAILY before insulin injection (total EIGHT TIMES A ONE TIME A DAY) Alcohol Yes Use Univers Swabs PadM 4-22 alcohol ity of 00:00: pad to clean area Medical of skin Branch before testing UP TO SIX TIMES DAILY AND USE TWICE DAILY before insulin injection (total EIGHT TIMES A ONE TIME A DAY) Alcohol Yes Use Univers Swabs PadM 4-22 alcohol ity of 00:00: pad to clean area Medical of skin Branch before testing UP TO SIX TIMES DAILY AND USE TWICE DAILY before insulin injection (total EIGHT TIMES A ONE TIME A DAY) Alcohol Yes Use Univers Swabs PadM 4-22 alcohol ity of 00:00: pad to clean area Medical of skin Branch before testing UP TO SIX TIMES DAILY AND USE TWICE DAILY before insulin injection (total EIGHT TIMES A ONE TIME A DAY) Alcohol Yes Use Univers Swabs PadM 4-22 alcohol ity of 00:00: pad to clean area Medical of skin Branch before testing UP TO SIX TIMES DAILY AND USE TWICE DAILY before insulin injection (total EIGHT TIMES A ONE TIME A DAY) Alcohol Yes Use Univers Swabs PadM 4-22 alcohol ity of 00:00: pad to clean area Medical of skin Branch before testing UP TO SIX TIMES DAILY AND USE TWICE DAILY before insulin injection (total EIGHT TIMES A ONE TIME A DAY) LINZESS 290 Yes [id number] TAKE 1 Univers mcg Cap 4-12 CAPSULE BY ity of 00:00: MOUTH ONCE DAILY 30 Medical MINUTES Branch BEFORE THE FIRST MEAL OF THE DAY Blood-Gluco Yes Use as Univ ers se Sensor 4-12 directed ity of (DEXCOM G6 00:00: to check [place] as SENSOR) 00 blood Medical Barb sugars for Branch dx E10.65 Blood-Gluco Yes Use as Univ ers se 4-12 directed ity of [place] 00:00: [place] nuous 00 blood Medical (DEXCOM G6 sugars dx 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) E10.65 Misc Blood-Gluco 2023-0 Yes Use as Univ ers se 4-12 directed ity of Transmitter 00:00: to check [place] (DEXCOM G6 00 blood Medical TRANSMITTER sugars for Br anch ) Barb dx E10.65 Blood-Gluco 2023-0 Yes Use as Univ ers se Sensor 4-12 directed ity of (DEXCOM G6 00:00: to check [place] as SENSOR) 00 blood Medical Barb sugars for Branch dx E10.65 Blood-Gluco 2023-0 Yes Use as Univ ers se 4-12 directed ity of [place] 00:00: to check [place] nuous 00 blood Medical (DEXCOM G6 sugars dx 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) E10.65 Misc Blood-Gluco 2023-0 Yes Use as Univ ers se 4-12 directed ity of Transmitter 00:00: to check [place] (DEXCOM G6 00 blood Medical TRANSMITTER sugars for Br anch ) Barb dx E10.65 LINZESS 290 2022-0 Yes [id number] TAKE 1 Univers mcg Cap 4-12 CAPSULE BY ity of 00:00: MOUTH ONCE [place] 00 DAILY 30 Medical MINUTES Branch BEFORE THE FIRST MEAL OF THE DAY Blood-Gluco 2023-0 Yes Use as Univ ers se Sensor 4-12 directed ity of (DEXCOM G6 00:00: to check [place] as SENSOR) 00 blood Medical Barb sugars for Branch dx E10.65 Blood-Gluco 2023-0 Yes Use as Univ ers se 4-12 directed ity of [place] 00:00: to check [place] nuous 00 blood Medical (DEXCOM G6 sugars dx 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) E10.65 Misc Blood-Gluco 2023-0 Yes Use as Univ ers se 4-12 directed ity of Transmitter 00:00: to check [place] (DEXCOM G6 00 blood Medical TRANSMITTER sugars for Br anch ) Barb dx E10.65 LINZESS 290 3-0 Yes [id number] TAKE 1 Univers mcg Cap 4-12 CAPSULE BY ity of 00:00: MOUTH ONCE [place] 00 DAILY 30 Medical MINUTES Branch BEFORE THE FIRST MEAL OF THE DAY Blood-Gluco 2023-0 Yes Use as Univ ers se Sensor 4-12 directed ity of (DEXCOM G6 00:00: to check [place] as SENSOR) 00 blood Medical Brab sugars for Branch dx E10.65 Blood-Gluco 2023-0 Yes Use as Univ ers se 4-12 directed ity of [place] 00:00: to check [place] nuous 00 blood Medical (DEXCOM G6 sugars dx 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) E10.65 Misc Blood-Gluco 2023-0 Yes Use as Univ ers se 4-12 directed ity of Transmitter 00:00: to check [place] (DEXCOM G6 00 blood Medical TRANSMITTER sugars for Br anch ) Barb dx E10.65 LINZESS 290 2022-0 Yes [id number] TAKE 1 Univers mcg Cap 4-12 CAPSULE BY ity of 00:00: MOUTH ONCE [place] 00 DAILY 30 Medical MINUTES Branch BEFORE THE FIRST MEAL OF THE DAY Blood-Gluco 2023-0 Yes Use as Univ ers se Sensor 4-12 directed ity of (DEXCOM G6 00:00: to check [place] as SENSOR) 00 blood Medical Barb sugars for Branch dx E10.65 LINZESS 290 3-0 Yes [id number] TAKE 1 Univers mcg Cap 4-12 CAPSULE BY ity of 00:00: MOUTH ONCE [place] 00 DAILY 30 Medical MINUTES Branch BEFORE THE FIRST MEAL OF THE DAY Blood-Gluco 2023-0 Yes Use as Univ ers se Sensor 4-12 directed ity of (DEXCOM G6 00:00: to check [place] as SENSOR) 00 blood Medical Barb sugars for Branch dx E10.65 LINZESS 290 3-0 Yes [id number] TAKE 1 Univers mcg Cap 4-12 CAPSULE BY ity of 00:00: MOUTH ONCE [place] 00 DAILY 30 Medical MINUTES Branch BEFORE THE FIRST MEAL OF THE DAY Blood-Gluco 2023-0 Yes Use as Univ ers se Sensor 4-12 directed ity of (DEXCOM G6 00:00: to check [place] as SENSOR) 00 blood Medical Barb sugars for Branch dx E10.65 LINZESS 290 2023-0 Yes [id number] TAKE 1 Univers mcg Cap 4-12 CAPSULE BY ity of 00:00: MOUTH ONCE [place] 00 DAILY 30 Medical MINUTES Branch BEFORE THE FIRST MEAL OF THE DAY Blood-Gluco 2023-0 Yes Use as Univ ers se Sensor 4-12 directed ity of (DEXCOM G6 00:00: to check [place] as SENSOR) 00 blood Medical Barb sugars for Branch dx E10.65 LINZESS 290 2023-0 Yes [id number] TAKE 1 Univers mcg Cap 4-12 CAPSULE BY ity of 00:00: MOUTH ONCE [place] 00 DAILY 30 Medical MINUTES Branch BEFORE THE FIRST MEAL OF THE DAY Blood-Gluco 2023-0 Yes Use as Univ ers se Sensor 4-12 directed ity of (DEXCOM G6 00:00: to check [place] as SENSOR) 00 blood Medical Barb sugars for Branch dx E10.65 LINZESS 290 2022-0 Yes [id number] TAKE 1 Univers mcg Cap 4-12 CAPSULE BY ity of 00:00: MOUTH ONCE [place] 00 DAILY 30 Medical MINUTES Branch BEFORE THE FIRST MEAL OF THE DAY Blood-Gluco 2023-0 Yes Use as Univ ers se Sensor 4-12 directed ity of (DEXCOM G6 00:00: to check [place] as SENSOR) 00 blood Medical Barb sugars for Branch dx E10.65 LINZESS 290 2022-0 Yes [id number] TAKE 1 Univers mcg Cap 4-12 CAPSULE BY ity of 00:00: MOUTH ONCE [place] 00 DAILY 30 Medical MINUTES Branch BEFORE THE FIRST MEAL OF THE DAY Blood-Gluco 2023-0 Yes Use as Univ ers se Sensor 4-12 directed ity of (DEXCOM G6 00:00: to check [place] as SENSOR) 00 blood Medical Barb sugars for Branch dx E10.65 LINZESS 290 3-0 Yes [id number] TAKE 1 Univers mcg Cap 4-12 CAPSULE BY ity of 00:00: MOUTH ONCE [place] 00 DAILY 30 Medical MINUTES Branch BEFORE THE FIRST MEAL OF THE DAY Blood-Gluco 2023-0 Yes Use as Univ ers se Sensor 4-12 directed ity of (DEXCOM G6 00:00: to check [place] as SENSOR) 00 blood Medical Barb sugars for Branch dx E10.65 LINZESS 290 3-0 Yes [id number] TAKE 1 Univers mcg Cap 4-12 CAPSULE BY ity of 00:00: MOUTH ONCE [place] 00 DAILY 30 Medical MINUTES Branch BEFORE THE FIRST MEAL OF THE DAY Blood-Gluco 2023-0 Yes Use as Univ ers se Sensor 4-12 directed ity of (DEXCOM G6 00:00: to check [place] as SENSOR) 00 blood Medical Barb sugars for Branch dx E10.65 LINZESS 290 3-0 Yes [id number] TAKE 1 Univers mcg Cap 4-12 CAPSULE BY ity of 00:00: MOUTH ONCE [place] 00 DAILY 30 Medical MINUTES Branch BEFORE THE FIRST MEAL OF THE DAY Blood-Gluco 2023-0 Yes Use as Univ ers se Sensor 4-12 directed ity of (DEXCOM G6 00:00: to check [place] as SENSOR) 00 blood Medical Barb sugars for Branch dx E10.65 LINZESS 290 2023-0 Yes [id number] TAKE 1 Univers mcg Cap 4-12 CAPSULE BY ity of 00:00: MOUTH ONCE [place] 00 DAILY 30 Medical MINUTES Branch BEFORE THE FIRST MEAL OF THE DAY Blood-Gluco 2023-0 Yes Use as Univ ers se Sensor 4-12 directed ity of (DEXCOM G6 00:00: to check [place] as SENSOR) 00 blood Medical Barb sugars for Branch dx E10.65 LINZESS 290 2023-0 Yes [id number] TAKE 1 Univers mcg Cap 4-12 CAPSULE BY ity of 00:00: MOUTH ONCE [place] 00 DAILY 30 Medical MINUTES Branch BEFORE THE FIRST MEAL OF THE DAY Blood-Gluco 2023-0 Yes Use as Univ ers se Sensor 4-12 directed ity of (DEXCOM G6 00:00: to check [place] as SENSOR) 00 blood Medical Barb sugars for Branch dx E10.65 LINZESS 290 2023-0 Yes [id number] TAKE 1 Univers mcg Cap 4-12 CAPSULE BY ity of 00:00: MOUTH ONCE [place] 00 DAILY 30 Medical MINUTES Branch BEFORE THE FIRST MEAL OF THE DAY LINZESS 290 2023-0 Yes [id number] TAKE 1 Univers mcg Cap 4-12 CAPSULE BY ity of 00:00: MOUTH ONCE [place] 00 DAILY 30 Medical MINUTES Branch BEFORE THE FIRST MEAL OF THE DAY LINZESS 290 2023-0 Yes [id number] TAKE 1 Univers mcg Cap 4-12 CAPSULE BY ity of 00:00: MOUTH ONCE [place] 00 DAILY 30 Medical MINUTES Branch BEFORE THE FIRST MEAL OF THE DAY LINZESS 290 2023-0 Yes [id number] TAKE 1 Univers mcg Cap 4-12 CAPSULE BY ity of 00:00: MOUTH ONCE [place] 00 DAILY 30 Medical MINUTES Branch BEFORE THE FIRST MEAL OF THE DAY LINZESS 290 2023-0 Yes [id number] TAKE 1 Univers mcg Cap 4-12 CAPSULE BY ity of 00:00: MOUTH ONCE [place] 00 DAILY 30 Medical MINUTES Branch BEFORE THE FIRST MEAL OF THE DAY LINZESS 290 2023-0 Yes [id number] TAKE 1 Univers mcg Cap 4-12 CAPSULE BY ity of 00:00: MOUTH ONCE [place] 00 DAILY 30 Medical MINUTES Branch BEFORE THE FIRST MEAL OF THE DAY LINZESS 290 3-0 Yes [id number] TAKE 1 Univers mcg Cap 4-12 CAPSULE BY ity of 00:00: MOUTH ONCE [place] 00 DAILY 30 Medical MINUTES Branch BEFORE THE FIRST MEAL OF THE DAY LINZESS 290 3-0 Yes [id number] TAKE 1 Univers mcg Cap 4-12 CAPSULE BY ity of 00:00: MOUTH ONCE [place] 00 DAILY 30 Medical MINUTES Branch BEFORE THE FIRST MEAL OF THE DAY LINZESS 290 2022-0 Yes [id number] TAKE 1 Univers mcg Cap 4-12 CAPSULE BY ity of 00:00: MOUTH ONCE 00 DAILY 30 Medical MINUTES Branch BEFORE THE FIRST MEAL OF THE DAY LINZESS 290 2022-0 Yes [id number] TAKE 1 [facility] mcg Cap 4-12 CAPSULE BY ity of 00:00: MOUTH ONCE DAILY 30 Medical MINUTES Branch BEFORE THE FIRST MEAL OF THE DAY LINZESS 290 3-0 Yes [id number] TAKE 1 [facility] mcg Cap 4-12 CAPSULE BY ity of 00:00: MOUTH ONCE 00 DAILY 30 Medical MINUTES Branch BEFORE THE FIRST MEAL OF THE DAY LINZESS 290 3-0 Yes [id number] TAKE 1 [facility] mcg Cap 4-12 CAPSULE BY ity of 00:00: MOUTH ONCE [place] DAILY 30 Medical MINUTES Branch BEFORE THE FIRST MEAL OF THE DAY Blood-Gluco 2022-2022- No Use as Uni vers se Sensor 08-04 directed ity o f (DEXCOM G6 00:00: 00:[place] SENSOR[place] 00 :00 blood Medical Barb sugars for Branch dx E10.65 Blood-Gluco 2022- No Use as Uni vers se 08-04 directed ity of Meter,Keshawn 00:00: 00:00 [place] nuous 00 :00 blood Medical (DEXCOM G6 sugars dx 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) E10.65 Misc Blood-Gluco 2022- No Use as Uni vers se 08-04 directed ity of Transmitter 00:00: 00:00 [place] (DEXCOM G6 00 :00 blood Medical TRANSMITTER sugars for Br anch ) Barb dx E10.65 zolpidem 10 2022-0 Yes [id number] 10mg Take 1 [facility] mg tablet 4-11 tablet by ity o f 00:00: mouth at [place] 00 bedtime as Medical needed for Branch Insomnia. zolpidem Yes [id number] 10mg Take 1 [facility] mg tablet 4-11 tablet by ity o f 00:00: mouth at [place] 00 bedtime as Medical needed for Branch Insomnia. zolpidem Yes [id number] 10mg Take 1 [facility] mg tablet 4-11 tablet by ity o f 00:00: mouth at [place] 00 bedtime as Medical needed for Branch Insomnia. zolpidem Yes [id number] 10mg Take 1 [facility] mg tablet 4-11 tablet by ity o f 00:00: mouth at [place] 00 bedtime as Medical needed for Branch Insomnia. zolpidem Yes [id number] 10mg Take 1 [facility] mg tablet 4-11 tablet by ity o f 00:00: mouth at [place] 00 bedtime as Medical needed for Branch Insomnia. zolpidem Yes [id number] 10mg Take 1 [facility] mg tablet 4-11 tablet by ity o f 00:00: mouth at [place] 00 bedtime as Medical needed for Branch Insomnia. zolpidem Yes [id number] 10mg Take 1 [facility] mg tablet 4-11 tablet by ity o f 00:00: mouth at [place] 00 bedtime as Medical needed for Branch Insomnia. zolpidem Yes [id number] 10mg Take 1 [facility] mg tablet 4-11 tablet by ity o f 00:00: mouth at [place] 00 bedtime as Medical needed for Branch Insomnia. zolpidem Yes [id number] 10mg Take 1 [facility] mg tablet 4-11 tablet by ity o f 00:00: mouth at [place] 00 bedtime as Medical needed for Branch Insomnia. zolpidem Yes [id number] 10mg Take 1 [facility] mg tablet 4-11 tablet by ity o f 00:00: mouth at [place] 00 bedtime as Medical needed for Branch Insomnia. zolpidem 10 Yes [id number] 10mg Take 1 [facility] mg tablet 4-11 tablet by ity o f 00:00: mouth at [place] 00 bedtime as Medical needed for Branch Insomnia. zolpidem Yes [id number] 10mg Take 1 [facility] mg tablet 4-11 tablet by ity o f 00:00: mouth at [place] 00 bedtime as Medical needed for Branch Insomnia. zolpidem 10 2022-0 Yes [id number] 10mg Take 1 [facility] mg tablet 4-11 tablet by ity o f 00:00: mouth at [place] 00 bedtime as Medical needed for Branch Insomnia. zolpidem 10 2022-0 Yes [id number] 10mg Take 1 [facility] mg tablet 4-11 tablet by ity o f 00:00: mouth at [place] 00 bedtime as Medical needed for Branch Insomnia. zolpidem 10 2022-0 Yes [id number] 10mg Take 1 [facility] mg tablet 4-11 tablet by ity o f 00:00: mouth at [place] 00 bedtime as Medical needed for Branch Insomnia. zolpidem 10 2022-0 Yes [id number] 10mg Take 1 [facility] mg tablet 4-11 tablet by ity o f 00:00: mouth at [place] 00 bedtime as Medical needed for Branch Insomnia. zolpidem 10 2022-0 3- No [id number] 10mg Take 1 [facility] mg tablet 4-11 05-10 tablet by ity of 00:00: 00:00 mouth at [place] 00 :00 bedtime as Medical needed for Branch Insomnia. FUROSEMIDE 2022-0 Yes [id number] 20mg TAKE 1 [facility] 20 mg 4-03 TABLET BY ity of tablet 00:00: MOUTH [place] 00 EVERY Medical OTHER DAY Branch FUROSEMIDE 3-0 Yes [id number] 20mg TAKE 1 [facility] 20 mg 4-03 TABLET BY ity of tablet 00:00: MOUTH [place] 00 EVERY Medical OTHER DAY Branch FUROSEMIDE 2023-0 Yes [id number] 20mg TAKE 1 [facility] 20 mg 4-03 TABLET BY ity of tablet 00:00: MOUTH [place] 00 EVERY Medical OTHER DAY Branch FUROSEMIDE 2023-0 Yes [id number] 20mg TAKE 1 [facility] 20 mg 4-03 TABLET BY ity of tablet 00:00: MOUTH [place] 00 EVERY Medical OTHER DAY Branch FUROSEMIDE 2023-0 Yes [id number] 20mg TAKE 1 [facility] 20 mg 4-03 TABLET BY ity of tablet 00:00: MOUTH [place] 00 EVERY Medical OTHER DAY Branch FUROSEMIDE 3-0 Yes [id number] 20mg TAKE 1 [facility] 20 mg 4-03 TABLET BY ity of tablet 00:00: MOUTH [place] 00 EVERY Medical OTHER DAY Branch FUROSEMIDE 2023-0 Yes [id number] 20mg TAKE 1 [facility] 20 mg 4-03 TABLET BY ity of tablet 00:00: MOUTH [place] 00 EVERY Medical OTHER DAY Branch FUROSEMIDE 2023-0 Yes [id number] 20mg TAKE 1 [facility] 20 mg 4-03 TABLET BY ity of tablet 00:00: MOUTH [place] 00 EVERY Medical OTHER DAY Branch FUROSEMIDE 2023-0 Yes [id number] 20mg TAKE 1 [facility] 20 mg 4-03 TABLET BY ity of tablet 00:00: MOUTH [place] 00 EVERY Medical OTHER DAY Branch FUROSEMIDE 2023-0 Yes [id number] 20mg TAKE 1 [facility] 20 mg 4-03 TABLET BY ity of tablet 00:00: MOUTH [place] 00 EVERY Medical OTHER DAY Branch FUROSEMIDE 2023-0 Yes [id number] 20mg TAKE 1 [facility] 20 mg 4-03 TABLET BY ity of tablet 00:00: MOUTH [place] 00 EVERY Medical OTHER DAY Branch FUROSEMIDE 2023-0 Yes [id number] 20mg TAKE 1 [facility] 20 mg 4-03 TABLET BY ity of tablet 00:00: MOUTH [place] 00 EVERY Medical OTHER DAY Branch FUROSEMIDE 2023-0 2023- No [id number] 20mg TAKE 1 [facility] 20 mg 4-03 04-27 TABLET BY ity of tablet 00:00: 00:00 MOUTH [place] 00 :00 EVERY Medical OTHER DAY Branch FUROSEMIDE 2023-0 Yes [id number] 20mg TAKE 1 [facility] 20 mg 3-06 TABLET BY ity of tablet 00:00: MOUTH [place] 00 EVERY Medical OTHER DAY Branch FUROSEMIDE 2023-0 2023- No [id number] 20mg TAKE 1 [facility] 20 mg 3-06 04-03 TABLET BY ity of tablet 00:00: 00:00 MOUTH [place] 00 :00 EVERY Medical OTHER DAY Branch FUROSEMIDE 2023-0 Yes [id number] 20mg TAKE 1 [facility] 20 mg 2-10 TABLET BY ity of tablet 00:00: MOUTH [place] 00 EVERY Medical OTHER DAY Branch DICYCLOMINE 2023-0 Yes [id number] 20mg TAKE 1 [facility] 20 mg 2-10 TABLET BY ity of tablet 00:00: MOUTH IN [place] 00 THE Medical MORNING Branch AND 1 TABLET IN THE EVENING. FUROSEMIDE 2023-0 Yes [id number] 20mg TAKE 1 [facility] 20 mg 2-10 TABLET BY ity of tablet 00:00: MOUTH [place] 00 EVERY Medical OTHER DAY Branch DICYCLOMINE 2023-0 Yes [id number] 20mg TAKE 1 [facility] 20 mg 2-10 TABLET BY ity of tablet 00:00: MOUTH IN [place] [address] THE Medical MORNING Branch AND 1 TABLET IN THE EVENING. DICYCLOMINE 2023-0 Yes [id number] 20mg TAKE 1 [facility] 20 mg 2-10 TABLET BY ity of tablet 00:00: MOUTH IN [place] [address] THE Medical MORNING Branch AND 1 TABLET IN THE EVENING. DICYCLOMINE 2023-0 Yes [id number] 20mg TAKE 1 [facility] 20 mg 2-10 TABLET BY ity of tablet 00:00: MOUTH IN [place] [address] THE Medical MORNING Branch AND 1 TABLET IN THE EVENING. DICYCLOMINE 2023-0 Yes [id number] 20mg TAKE 1 [facility] 20 mg 2-10 TABLET BY ity of tablet 00:00: MOUTH IN [place] [address] THE Medical MORNING Branch AND 1 TABLET IN THE EVENING. DICYCLOMINE 2023-0 Yes [id number] 20mg TAKE 1 [facility] 20 mg 2-10 TABLET BY ity of tablet 00:00: MOUTH IN [place] [address] THE Medical MORNING Branch AND 1 TABLET IN THE EVENING. DICYCLOMINE 2023-0 Yes [id number] 20mg TAKE 1 [facility] 20 mg 2-10 TABLET BY ity of tablet 00:00: MOUTH IN [place] [address] THE Medical MORNING Branch AND 1 TABLET IN THE EVENING. DICYCLOMINE 2023-0 Yes [id number] 20mg TAKE 1 [facility] 20 mg 2-10 TABLET BY ity of tablet 00:00: MOUTH IN [place] [address] THE Medical MORNING Branch AND 1 TABLET IN THE EVENING. DICYCLOMINE 2023-0 Yes [id number] 20mg TAKE 1 [facility] 20 mg 2-10 TABLET BY ity of tablet 00:00: MOUTH IN [place] [address] THE Medical MORNING Branch AND 1 TABLET IN THE EVENING. DICYCLOMINE 2023-0 Yes [id number] 20mg TAKE 1 [facility] 20 mg 2-10 TABLET BY ity of tablet 00:00: MOUTH IN [place] [address] THE Medical MORNING Branch AND 1 TABLET IN THE EVENING. DICYCLOMINE 2023-0 Yes [id number] 20mg TAKE 1 [facility] 20 mg 2-10 TABLET BY ity of tablet 00:00: MOUTH IN [place] [address] THE Medical MORNING Branch AND 1 TABLET IN THE EVENING. DICYCLOMINE 2023-0 Yes [id number] 20mg TAKE 1 [facility] 20 mg 2-10 TABLET BY ity of tablet 00:00: MOUTH IN [place] 00 THE Medical MORNING Branch AND 1 TABLET IN THE EVENING. DICYCLOMINE 2023-0 Yes [id number] 20mg TAKE 1 [facility] 20 mg 2-10 TABLET BY ity of tablet 00:00: MOUTH IN [place] 00 THE Medical MORNING Branch AND 1 TABLET IN THE EVENING. DICYCLOMINE 2023-0 Yes [id number] 20mg TAKE 1 [facility] 20 mg 2-10 TABLET BY ity of tablet 00:00: MOUTH IN [place] 00 THE Medical MORNING Branch AND 1 TABLET IN THE EVENING. DICYCLOMINE 2023-0 Yes [id number] 20mg TAKE 1 [facility] 20 mg 2-10 TABLET BY ity of tablet 00:00: MOUTH IN [place] 00 THE Medical MORNING Branch AND 1 TABLET IN THE EVENING. DICYCLOMINE 2023-0 Yes [id number] 20mg TAKE 1 [facility] 20 mg 2-10 TABLET BY ity of tablet 00:00: MOUTH IN [place] [address] THE Medical MORNING Branch AND 1 TABLET IN THE EVENING. DICYCLOMINE 2023-0 Yes [id number] 20mg TAKE 1 [facility] 20 mg 2-10 TABLET BY ity of tablet 00:00: MOUTH IN [place] [address] THE Medical MORNING Branch AND 1 TABLET IN THE EVENING. DICYCLOMINE 2023-0 Yes [id number] 20mg TAKE 1 [facility] 20 mg 2-10 TABLET BY ity of tablet 00:00: MOUTH IN [place] [address] THE Medical MORNING Branch AND 1 TABLET IN THE EVENING. DICYCLOMINE 2023-0 Yes [id number] 20mg TAKE 1 [facility] 20 mg 2-10 TABLET BY ity of tablet 00:00: MOUTH IN [place] 00 THE Medical MORNING Branch AND 1 TABLET IN THE EVENING. DICYCLOMINE 2023-0 Yes [id number] 20mg TAKE 1 [facility] 20 mg 2-10 TABLET BY ity of tablet 00:00: MOUTH IN [place] 00 THE Medical MORNING Branch AND 1 TABLET IN THE EVENING. DICYCLOMINE 2023-0 2023- No [id number] 20mg TAKE 1 [facility] 20 mg 2-10 05-10 TABLET BY ity of tablet 00:00: 00:00 MOUTH IN [place] 00 :00 THE Medical MORNING Branch AND 1 TABLET IN THE EVENING. FUROSEMIDE 2023-0 2023- No [id number] 20mg TAKE 1 [facility] 20 mg 2-10 03-06 TABLET BY ity of tablet 00:00: 00:00 MOUTH [place] 00 :00 EVERY Medical OTHER DAY Branch Insulin 2023-0 Yes [id number] USE TO [facility] [place], 1-23 9101 INJECT ity of Disposable, 00:00: INSULIN 5 [place] (BD 00 TIMES Medical ULTRAFINE DAILY. Branch III MINI DX:E11.65 PEN) 31 gauge x 3/16" Ndle METOCLOPRAM 3-0 Yes TAKE 1 [facility] ers DANIEL HCL 10 1-23 TABLET BY ity of mg tablet 00:00: MOUTH [place] 00 THREE Medical TIMES A Branch DAY Insulin 2023-0 Yes [id number] USE TO [facility] [place], 1-23 9101 INJECT ity of Disposable, 00:00: INSULIN 5 [place] (BD 00 TIMES Medical ULTRAFINE DAILY. Branch III MINI DX:E11.65 PEN) 31 gauge x 3/16" Ndle METOCLOPRAM 3-0 Yes TAKE 1 [facility] ers DANIEL HCL 10 1-23 TABLET BY ity of mg tablet 00:00: MOUTH [place] 00 THREE Medical TIMES A Branch DAY Insulin 2023-0 Yes [id number] USE TO [facility] [place], 1- 9101 INJECT ity of Disposable, 00:00: INSULIN 5 [place] (BD 00 TIMES Medical ULTRAFINE DAILY. Branch III MINI DX:E11.65 PEN) 31 gauge x 3/16" Ndle METOCLOPRAM 3-0 Yes TAKE 1 [facility] ers DANIEL HCL 10 1-23 TABLET BY ity of mg tablet 00:00: MOUTH [place] 00 THREE Medical TIMES A Branch DAY Insulin 2023-0 Yes [id number] USE TO [facility] [place], 1- 9101 INJECT ity of Disposable, 00:00: INSULIN 5 [place] (BD 00 TIMES Medical ULTRAFINE DAILY. Branch III MINI DX:E11.65 PEN) 31 gauge x 3/16" Ndle METOCLOPRAM 3-0 Yes TAKE 1 [facility] ers DANIEL HCL 10 1-23 TABLET BY ity of mg tablet 00:00: MOUTH [place] 00 THREE Medical TIMES A Branch DAY Insulin 2023-0 Yes [id number] USE TO [facility] [place], 1-23 9101 INJECT ity of Disposable, 00:00: INSULIN 5 [place] (BD 00 TIMES Medical ULTRAFINE DAILY. Branch III MINI DX:E11.65 PEN) 31 gauge x 3/16" Ndle METOCLOPRAM 3-0 Yes TAKE 1 [facility] ers DANIEL HCL 10 1-23 TABLET BY ity of mg tablet 00:00: MOUTH [place] 00 THREE Medical TIMES A Branch DAY Insulin 2023-0 Yes [id number] USE TO [facility] [place], 1-23 9101 INJECT ity of Disposable, 00:00: INSULIN 5 [place] (BD 00 TIMES Medical ULTRAFINE DAILY. Branch III MINI DX:E11.65 PEN) 31 gauge x 3/16" Ndle METOCLOPRAM 3-0 Yes TAKE 1 [facility] ers DANIEL HCL 10 1-23 TABLET BY ity of mg tablet 00:00: MOUTH [place] 00 THREE Medical TIMES A Branch DAY Insulin 2022-0 Yes [id number] USE TO [facility] [place], 1- 9101 INJECT ity of Disposable, 00:00: INSULIN 5 [place] (BD 00 TIMES Medical ULTRAFINE DAILY. Branch III MINI DX:E11.65 PEN) 31 gauge x 3/16" Ndle METOCLOPRAM 2022-0 Yes TAKE 1 [facility] ers DANIEL HCL 10 1-23 TABLET BY ity of mg tablet 00:00: MOUTH [place] 00 THREE Medical TIMES A Branch DAY Insulin 2022-0 Yes [id number] USE TO [facility] [place], 1- 9101 INJECT ity of Disposable, 00:00: INSULIN 5 [place] (BD 00 TIMES Medical ULTRAFINE DAILY. Branch III MINI DX:E11.65 PEN) 31 gauge x 3/16" Ndle METOCLOPRAM 2022-0 Yes TAKE 1 [facility] ers DANIEL HCL 10 1-23 TABLET BY ity of mg tablet 00:00: MOUTH [place] 00 THREE Medical TIMES A Branch DAY Insulin 3-0 Yes [id number] USE TO [facility] [place], 1- 9101 INJECT ity of Disposable, 00:00: INSULIN 5 [place] (BD 00 TIMES Medical ULTRAFINE DAILY. Branch III MINI DX:E11.65 PEN) 31 gauge x 3/16" Ndle METOCLOPRAM 3-0 Yes TAKE 1 [facility] ers DANIEL HCL 10 1-23 TABLET BY ity of mg tablet 00:00: MOUTH [place] 00 THREE Medical TIMES A Branch DAY Insulin 3-0 Yes [id number] USE TO [facility] [place], 1-23 9101 INJECT ity of Disposable, 00:00: INSULIN 5 [place] (BD 00 TIMES Medical ULTRAFINE DAILY. Branch III MINI DX:E11.65 PEN) 31 gauge x 3/16" Ndle METOCLOPRAM 2022-0 Yes TAKE 1 [facility] ers DANIEL HCL 10 1-23 TABLET BY ity of mg tablet 00:00: MOUTH [place] 00 THREE Medical TIMES A Branch DAY Insulin 2023-0 Yes [id number] USE TO [facility] [place], 1-23 9101 INJECT ity of Disposable, 00:00: INSULIN 5 [place] (BD 00 TIMES Medical ULTRAFINE DAILY. Branch III MINI DX:E11.65 PEN) 31 gauge x 3/16" Ndle METOCLOPRAM 2022-0 Yes TAKE 1 [facility] ers DANIEL HCL 10 1-23 TABLET BY ity of mg tablet 00:00: MOUTH [place] 00 THREE Medical TIMES A Branch DAY Insulin 3-0 Yes [id number] USE TO [facility] [place], 1- 9101 INJECT ity of Disposable, 00:00: INSULIN 5 [place] (BD 00 TIMES Medical ULTRAFINE DAILY. Branch III MINI DX:E11.65 PEN) 31 gauge x 3/16" Ndle METOCLOPRAM 2022-0 Yes TAKE 1 [facility] ers DANIEL HCL 10 1-23 TABLET BY ity of mg tablet 00:00: MOUTH [place] 00 THREE Medical TIMES A Branch DAY Insulin 3-0 Yes [id number] USE TO [facility] [place], 1- 9101 INJECT ity of Disposable, 00:00: INSULIN 5 [place] (BD 00 TIMES Medical ULTRAFINE DAILY. Branch III MINI DX:E11.65 PEN) 31 gauge x 3/16" Ndle METOCLOPRAM 2022-0 Yes TAKE 1 [facility] ers DANIEL HCL 10 1-23 TABLET BY ity of mg tablet 00:00: MOUTH [place] 00 THREE Medical TIMES A Branch DAY Insulin 2023-0 Yes [id number] USE TO [facility] [place], 1-23 9101 INJECT ity of Disposable, 00:00: INSULIN 5 [place] (BD 00 TIMES Medical ULTRAFINE DAILY. Branch III MINI DX:E11.65 PEN) 31 gauge x 3/16" Ndle METOCLOPRAM 2022-0 Yes TAKE 1 [facility] ers DANIEL HCL 10 1-23 TABLET BY ity of mg tablet 00:00: MOUTH [place] 00 THREE Medical TIMES A Branch DAY Insulin 2023-0 Yes [id number] USE TO [facility] [place], 1-23 9101 INJECT ity of Disposable, 00:00: INSULIN 5 [place] (BD 00 TIMES Medical ULTRAFINE DAILY. Branch III MINI DX:E11.65 PEN) 31 gauge x 3/16" Ndle METOCLOPRAM 3-0 Yes TAKE 1 [facility] ers DANIEL HCL 10 1-23 TABLET BY ity of mg tablet 00:00: MOUTH [place] 00 THREE Medical TIMES A Branch DAY Insulin 2023-0 Yes [id number] USE TO [facility] [place], 1- 9101 INJECT ity of Disposable, 00:00: INSULIN 5 [place] (BD 00 TIMES Medical ULTRAFINE DAILY. Branch III MINI DX:E11.65 PEN) 31 gauge x 3/16" Ndle METOCLOPRAM 3-0 Yes TAKE 1 [facility] ers DANIEL HCL 10 1-23 TABLET BY ity of mg tablet 00:00: MOUTH [place] 00 THREE Medical TIMES A Branch DAY Insulin 2023-0 Yes [id number] USE TO [facility] [place], 05-17 9101 INJECT ity of Disposable, 00:00: INSULIN 5 [place] (BD 00 TIMES Medical ULTRAFINE DAILY. Branch III MINI DX:E11.65 PEN) 31 gauge x 3/16" Ndle METOCLOPRAM 3-0 Yes TAKE 1 [facility] ers DANIEL HCL 10 1-23 TABLET BY ity of mg tablet 00:00: MOUTH [place] 00 THREE Medical TIMES A Branch DAY Insulin 2023-0 Yes [id number] USE TO [facility] [place], 1 9101 INJECT ity of Disposable, 00:00: INSULIN 5 [place] (BD 00 TIMES Medical ULTRAFINE DAILY. Branch III MINI DX:E11.65 PEN) 31 gauge x 3/16" Ndle METOCLOPRAM 3-0 Yes TAKE 1 [facility] ers DANIEL HCL 10 1-23 TABLET BY ity of mg tablet 00:00: MOUTH [place] 00 THREE Medical TIMES A Branch DAY Insulin 2023-0 Yes [id number] USE TO [facility] [place], 1- 9101 INJECT ity of Disposable, 00:00: INSULIN 5 [place] (BD 00 TIMES Medical ULTRAFINE DAILY. Branch III MINI DX:E11.65 PEN) 31 gauge x 3/16" Ndle METOCLOPRAM 3-0 Yes TAKE 1 [facility] ers DANIEL HCL 10 1-23 TABLET BY ity of mg tablet 00:00: MOUTH [place] 00 THREE Medical TIMES A Branch DAY Insulin 2023-0 Yes [id number] USE TO [facility] [place], 1- 9101 INJECT ity of Disposable, 00:00: INSULIN 5 [place] (BD 00 TIMES Medical ULTRAFINE DAILY. Branch III MINI DX:E11.65 PEN) 31 gauge x 3/16" Ndle METOCLOPRAM 3-0 Yes TAKE 1 [facility] ers DANIEL HCL 10 1-23 TABLET BY ity of mg tablet 00:00: MOUTH [place] 00 THREE Medical TIMES A Branch DAY Insulin 2023-0 Yes [id number] USE TO [facility] [place], 1-23 9101 INJECT ity of Disposable, 00:00: INSULIN 5 [place] (BD 00 TIMES Medical ULTRAFINE DAILY. Branch III MINI DX:E11.65 PEN) 31 gauge x 3/16" Ndle METOCLOPRAM 3-0 Yes TAKE 1 [facility] ers DANIEL HCL 10 1-23 TABLET BY ity of mg tablet 00:00: MOUTH [place] 00 THREE Medical TIMES A Branch DAY Insulin 2023-0 Yes [id number] USE TO [facility] [place], 1- 9101 INJECT ity of Disposable, 00:00: INSULIN 5 [place] (BD 00 TIMES Medical ULTRAFINE DAILY. Branch III MINI DX:E11.65 PEN) 31 gauge x 3/16" Ndle METOCLOPRAM 3-0 Yes TAKE 1 [facility] ers DANIEL HCL 10 1-23 TABLET BY ity of mg tablet 00:00: MOUTH [place] 00 THREE Medical TIMES A Branch DAY Insulin 2023-0 Yes [id number] USE TO [facility] [place], 1- 9101 INJECT ity of Disposable, 00:00: INSULIN 5 [place] (BD 00 TIMES Medical ULTRAFINE DAILY. Branch III MINI DX:E11.65 PEN) 31 gauge x 3/16" Ndle METOCLOPRAM 3-0 Yes TAKE 1 [facility] ers DANIEL HCL 10 1-23 TABLET BY ity of mg tablet 00:00: MOUTH [place] 00 THREE Medical TIMES A Branch DAY Insulin 2023-0 Yes [id number] USE TO [facility] [place], 1-23 9101 INJECT ity of Disposable, 00:00: INSULIN 5 [place] (BD 00 TIMES Medical ULTRAFINE DAILY. Branch III MINI DX:E11.65 PEN) 31 gauge x 3/16" Ndle METOCLOPRAM 3-0 Yes TAKE 1 [facility] ers DANIEL HCL 10 1-23 TABLET BY ity of mg tablet 00:00: MOUTH [place] 00 THREE Medical TIMES A Branch DAY Insulin 2023-0 Yes [id number] USE TO [facility] [place], 1-23 9101 INJECT ity of Disposable, 00:00: INSULIN 5 [place] (BD 00 TIMES Medical ULTRAFINE DAILY. Branch III MINI DX:E11.65 PEN) 31 gauge x 3/16" Ndle METOCLOPRAM 2023-0 Yes TAKE 1 [facility] ers DANIEL HCL 10 1-23 TABLET BY ity of mg tablet 00:00: MOUTH [place] 00 THREE Medical TIMES A Branch DAY Insulin 2023-0 Yes [id number] USE TO [facility] [place], 1- 9101 INJECT ity of Disposable, 00:00: INSULIN 5 [place] (BD 00 TIMES Medical ULTRAFINE DAILY. Branch III MINI DX:E11.65 PEN) 31 gauge x 3/16" Ndle METOCLOPRAM 2023-0 Yes TAKE 1 [facility] ers DANIEL HCL 10 1-23 TABLET BY ity of mg tablet 00:00: MOUTH [place] 00 THREE Medical TIMES A Branch DAY Insulin 2023-0 Yes [id number] USE TO [facility] [place], 1- 9101 INJECT ity of Disposable, 00:00: INSULIN 5 [place] (BD 00 TIMES Medical ULTRAFINE DAILY. Branch III MINI DX:E11.65 PEN) 31 gauge x 3/16" Ndle METOCLOPRAM 3-0 Yes TAKE 1 [facility] ers DANIEL HCL 10 1-23 TABLET BY ity of mg tablet 00:00: MOUTH [place] 00 THREE Medical TIMES A Branch DAY Insulin 2023-0 Yes [id number] USE TO [facility] [place], 1- 9101 INJECT ity of Disposable, 00:00: INSULIN 5 [place] (BD 00 TIMES Medical ULTRAFINE DAILY. Branch III MINI DX:E11.65 PEN) 31 gauge x 3/16" Ndle METOCLOPRAM 2023-0 Yes TAKE 1 [facility] ers DANIEL HCL 10 1-23 TABLET BY ity of mg tablet 00:00: MOUTH [place] 00 THREE Medical TIMES A Branch DAY Insulin 2023-0 Yes [id number] USE TO [facility] [place], 1-23 9101 INJECT ity of Disposable, 00:00: INSULIN 5 [place] (BD 00 TIMES Medical ULTRAFINE DAILY. Branch III MINI DX:E11.65 PEN) 31 gauge x 3/16" Ndle METOCLOPRAM 2023-0 Yes TAKE 1 [facility] ers DANIEL HCL 10 1-23 TABLET BY ity of mg tablet 00:00: MOUTH [place] 00 THREE Medical TIMES A Branch DAY Insulin 2023-0 Yes [id number] USE TO [facility] [place], 1- 9101 INJECT ity of Disposable, 00:00: INSULIN 5 [place] (BD 00 TIMES Medical ULTRAFINE DAILY. Branch III MINI DX:E11.65 PEN) 31 gauge x 3/16" Ndle METOCLOPRAM Yes TAKE 1 [facility] ers DANIEL HCL 10 05-17 TABLET BY ity of mg tablet 00:00: MOUTH [place] 00 THREE Medical TIMES A Branch Insulin Yes [id number] USE TO [facility] [place], 1- 9101 INJECT ity of Disposable, 00:00: INSULIN 5 [place] (BD 00 TIMES Medical ULTRAFINE DAILY. Branch III MINI DX:E11.65 PEN) 31 gauge x 3/16" Ndle Insulin Yes [id number] USE TO [facility] [place], 1- 9101 INJECT ity of Disposable, 00:00: INSULIN 5 [place] (BD 00 TIMES Medical ULTRAFINE DAILY. Branch III MINI DX:E11.65 PEN) 31 gauge x 3/16" Ndle Insulin Yes [id number] USE TO [facility] [place], 1- 9101 INJECT ity of Disposable, 00:00: INSULIN 5 [place] (BD 00 TIMES Medical ULTRAFINE DAILY. Branch III MINI DX:E11.65 PEN) 31 gauge x 3/16" Ndle Insulin Yes [id number] USE TO [facility] [place], 1- 9101 INJECT ity of Disposable, 00:00: INSULIN 5 [place] (BD 00 TIMES Medical ULTRAFINE DAILY. Branch III MINI DX:E11.65 PEN) 31 gauge x 3/16" Ndle Insulin 0 Yes [id number] USE TO [facility] [place], 1-23 9101 INJECT ity of Disposable, 00:00: INSULIN 5 [place] (BD 00 TIMES Medical ULTRAFINE DAILY. Branch III MINI DX:E11.65 PEN) 31 gauge x 3/16" Ndle Insulin 2022-0 Yes [id number] USE TO [facility] [place], 1-23 9101 INJECT ity of Disposable, 00:00: INSULIN 5 [place] (BD 00 TIMES Medical ULTRAFINE DAILY. Branch III MINI DX:E11.65 PEN) 31 gauge x 3/16" Ndle Insulin 2022-0 Yes [id number] USE TO [facility] [place], 1- 9101 INJECT ity of Disposable, 00:00: INSULIN 5 [place] (BD 00 TIMES Medical ULTRAFINE DAILY. Branch III MINI DX:E11.65 PEN) 31 gauge x 3/16" Ndle METOCLOPRAM 2022-0 Yes TAKE 1 [facility] ers DANIEL HCL 10 1-23 TABLET BY ity of mg tablet 00:00: MOUTH [place] 00 THREE Medical TIMES A Branch DAY Insulin 2022-0 Yes [id number] USE TO [facility] [place], 1- 9101 INJECT ity of Disposable, 00:00: INSULIN 5 [place] (BD 00 TIMES Medical ULTRAFINE DAILY. Branch III MINI DX:E11.65 PEN) 31 gauge x 3/16" Ndle METOCLOPRAM 2022-0 Yes TAKE 1 [facility] ers DANIEL HCL 10 1-23 TABLET BY ity of mg tablet 00:00: MOUTH [place] 00 THREE Medical TIMES A Branch DAY Insulin 2022-0 Yes [id number] USE TO [facility] [place], 1- 9101 INJECT ity of Disposable, 00:00: INSULIN 5 [place] (BD 00 TIMES Medical ULTRAFINE DAILY. Branch III MINI DX:E11.65 PEN) 31 gauge x 3/16" Ndle METOCLOPRAM 2022-0 Yes TAKE 1 [facility] ers DANIEL HCL 10 -23 TABLET BY ity of mg tablet 00:00: MOUTH [place] 00 THREE Medical TIMES A Branch DAY Insulin 2022-0 Yes [id number] USE TO [facility] [place], 1- 9101 INJECT ity of Disposable, 00:00: INSULIN 5 [place] (BD 00 TIMES Medical ULTRAFINE DAILY. Branch III MINI DX:E11.65 PEN) 31 gauge x 3/16" Ndle METOCLOPRAM 2022-0 Yes TAKE 1 [facility] ers DANIEL HCL 10 1-23 TABLET BY ity of mg tablet 00:00: MOUTH [place] 00 THREE Medical TIMES A Branch DAY METOCLOPRAM 3-0 2022- No TAKE 1 Uni vers DANIEL HCL 10 1-23 06-21 TABLET BY [facility] of mg tablet 00:00: 00:00 MOUTH [place] 00 :00 THREE Medical TIMES A Branch DAY LISINOPRIL 2022-0 Yes TAKE 1 [facility] rs 10 mg 1-17 TABLET BY ity of tablet 00:00: MOUTH ONCE [place] 00 DAILY Medical Branch LISINOPRIL 2022-0 Yes TAKE 1 [facility] 10 mg 1-17 TABLET BY ity of tablet 00:00: MOUTH ONCE DAILY Medical Branch LISINOPRIL 2023-0 Yes TAKE 1 [facility] 10 mg 1-17 TABLET BY [facility] of tablet 00:00: MOUTH ONCE DAILY [facility] LISINOPRIL 2022-0 Yes TAKE 1 [facility] 10 mg 1-17 TABLET BY [facility] of tablet 00:00: MOUTH ONCE DAILY [facility] LISINOPRIL 2022-0 Yes TAKE 1 [facility] 10 mg 1-17 TABLET BY [facility] of tablet 00:00: MOUTH ONCE DAILY [facility] LISINOPRIL 2022-0 Yes TAKE 1 [facility] 10 mg 1-17 TABLET BY [facility] tablet 00:00: MOUTH ONCE DAILY [facility] LISINOPRIL 2022-0 Yes TAKE 1 [facility] 10 mg 1-17 TABLET BY [facility] tablet 00:00: MOUTH ONCE DAILY [facility] LISINOPRIL 2022-0 Yes TAKE 1 [facility] 10 mg 1-17 TABLET BY [facility] of tablet 00:00: MOUTH ONCE DAILY [facility] LISINOPRIL 2022-0 Yes TAKE 1 [facility] 10 mg 1-17 TABLET BY ity of tablet 00:00: MOUTH ONCE DAILY Medical Branch LISINOPRIL 2022-0 Yes TAKE 1 Un[facility] rs 10 mg 1-17 TABLET BY ity of tablet 00:00: MOUTH ONCE DAILY Medical Branch LISINOPRIL 2022-0 Yes TAKE 1 [facility] 10 mg 1-17 TABLET BY ity of tablet 00:00: MOUTH ONCE DAILY Medical Branch LISINOPRIL 3-0 Yes TAKE 1 [facility] 10 mg 1-17 TABLET BY ity of tablet 00:00: MOUTH ONCE DAILY Medical Branch LISINOPRIL 3-0 Yes TAKE 1 [facility] 10 mg 1-17 TABLET BY ity of tablet 00:00: MOUTH ONCE DAILY Medical Branch LISINOPRIL 3-0 Yes TAKE 1 [facility] 10 mg 1-17 TABLET BY ity of tablet 00:00: MOUTH ONCE DAILY Medical Branch LISINOPRIL 3-0 Yes TAKE 1 [facility] 10 mg 1-17 TABLET BY ity of tablet 00:00: MOUTH ONCE DAILY Medical Branch LISINOPRIL 3-0 Yes TAKE 1 [facility] 10 mg 1-17 TABLET BY ity of tablet 00:00: MOUTH ONCE DAILY Medical Branch LISINOPRIL 2022-0 Yes TAKE 1 [facility] 10 mg 1-17 TABLET BY ity of tablet 00:00: MOUTH ONCE DAILY Medical Branch LISINOPRIL 2022-0 Yes TAKE 1 [facility] 10 mg 1-17 TABLET BY ity of tablet 00:00: MOUTH ONCE DAILY Medical [facility] LISINOPRIL 2022-0 Yes TAKE 1 [facility] 10 mg 1-17 TABLET BY ity of tablet 00:00: MOUTH ONCE DAILY Medical Branch LISINOPRIL 2022-0 Yes TAKE 1 [facility] 10 mg 1-17 TABLET BY ity of tablet 00:00: MOUTH ONCE DAILY Medical Branch LISINOPRIL 2022-0 Yes TAKE 1 [facility] 10 mg 1-17 TABLET BY ity of tablet 00:00: MOUTH ONCE DAILY [facility] LISINOPRIL 2022-0 Yes TAKE 1 [facility] 10 mg 1-17 TABLET BY ity of tablet 00:00: MOUTH ONCE DAILY Medical [facility] LISINOPRIL 2022-0 Yes TAKE 1 [facility] 10 mg 1-17 TABLET BY ity of tablet 00:00: MOUTH ONCE DAILY [facility] LISINOPRIL 2022-0 Yes TAKE 1 [facility] 10 mg 1-17 TABLET BY ity of tablet 00:00: MOUTH ONCE DAILY [facility] LISINOPRIL 3-0 Yes TAKE 1 [facility] 10 mg 1-17 TABLET BY ity of tablet 00:00: MOUTH ONCE DAILY [facility] LISINOPRIL 3-0 Yes TAKE 1 [facility] 10 mg 1-17 TABLET BY [facility] of tablet 00:00: MOUTH ONCE DAILY [facility] LISINOPRIL 3-0 Yes TAKE 1 [facility] 10 mg 1-17 TABLET BY ity of tablet 00:00: MOUTH ONCE DAILY [facility] LISINOPRIL 3-0 Yes TAKE 1 [facility] 10 mg 1-17 TABLET BY ity of tablet 00:00: MOUTH ONCE DAILY [facility] LISINOPRIL 3-0 Yes TAKE 1 [facility] 10 mg 1-17 TABLET BY ity of tablet 00:00: MOUTH ONCE DAILY [facility] LISINOPRIL 2023-0 Yes TAKE 1 [facility] 10 mg 1-17 TABLET BY it[facility] of tablet 00:00: MOUTH ONCE DAILY [facility] LISINOPRIL 2022-0 Yes TAKE 1 [facility] 10 mg 1-17 TABLET BY ity of tablet 00:00: MOUTH ONCE DAILY [facility] LISINOPRIL 2022-0 Yes TAKE 1 [facility] 10 mg 1-17 TABLET BY [facility] of tablet 00:00: MOUTH ONCE DAILY [facility] LISINOPRIL 2022-0 Yes TAKE 1 [facility] 10 mg 1-17 TABLET BY [facility] of tablet 00:00: MOUTH ONCE DAILY [facility] LISINOPRIL 2022-0 Yes TAKE 1 [facility] 10 mg 1-17 TABLET BY [facility]y of tablet 00:00: MOUTH ONCE DAILY [facility] LISINOPRIL 2022-0 Yes TAKE 1 [facility] 10 mg 1-17 TABLET BY [facility]y of tablet 00:00: MOUTH ONCE DAILY [facility] LISINOPRIL 2022-0 Yes TAKE 1 [facility] 10 mg 1-17 TABLET BY [facility] of tablet 00:00: MOUTH ONCE DAILY [facility] LISINOPRIL 2022-0 Yes TAKE 1 [facility] 10 mg 1-17 TABLET BY [facility] of tablet 00:00: MOUTH ONCE DAILY [facility] LISINOPRIL 2022-0 Yes TAKE 1 [facility] 10 mg 1-17 TABLET BY [facility] of tablet 00:00: MOUTH ONCE DAILY [facility] LISINOPRIL 2022-0 Yes TAKE 1 [facility] 10 mg 1-17 TABLET BY ity of tablet 00:00: MOUTH ONCE DAILY [facility] LISINOPRIL 2022-0 Yes TAKE 1 [facility] 10 mg 1-17 TABLET BY [facility] of tablet 00:00: MOUTH ONCE DAILY [facility] LISINOPRIL 2022-0 Yes TAKE 1 [facility] 10 mg 1-17 TABLET BY [facility] of tablet 00:00: MOUTH ONCE DAILY [facility] LISINOPRIL 2022-0 Yes TAKE 1 [facility] 10 mg 1-17 TABLET BY ity of tablet 00:00: MOUTH ONCE DAILY Medical Branch famotidine 2021-1 Yes [id number] 40mg Take 1 [facility] 40 mg 1-17 tablet by [facility] of tablet 00:00: mouth in [place] 00 the Medical morning Branch and 1 tablet in the evening. famotidine 2021-04 Yes [id number] 40mg Take 1 [facility] 40 mg 1-17 tablet by ity of tablet 00:00: mouth in [place] [address] the Medical morning Branch and 1 tablet in the evening. famotidine 2021-04 Yes [id number] 40mg Take 1 [facility] 40 mg 1-17 tablet by it[facility] of tablet 00:00: mouth in [place] [address] the Medical morning Branch and 1 tablet in the evening. famotidine 2021-04 Yes [id number] 40mg Take 1 [facility] 40 mg 1-17 tablet by ity of tablet 00:00: mouth in [place] [address] the Medical morning Branch and 1 tablet in the evening. famotidine 2021-04 Yes [id number] 40mg Take 1 [facility] 40 mg 1-17 tablet by [facility] of tablet 00:00: mouth in [place] [address] the Medical morning Branch and 1 tablet in the evening. famotidine 2021-04 Yes [id number] 40mg Take 1 [facility] 40 mg 1-17 tablet by [facility] of tablet 00:00: mouth in [place] [address] the Medical morning Branch and 1 tablet in the evening. famotidine 2021-04 Yes [id number] 40mg Take 1 [facility] 40 mg 1-17 tablet by [facility] of tablet 00:00: mouth in [place] [address] the Medical morning Branch and 1 tablet in the evening. famotidine 2021-04 Yes [id number] 40mg Take 1 [facility] 40 mg 1-17 tablet by [facility] of tablet 00:00: mouth in [place] [address] the Medical morning Branch and 1 tablet in the evening. famotidine 2021-04 Yes [id number] 40mg Take 1 [facility] 40 mg 1-17 tablet by [facility] of tablet 00:00: mouth in [place] [address] the Medical morning Branch and 1 tablet in the evening. famotidine 2021-04 Yes [id number] 40mg Take 1 [facility] 40 mg 1-17 tablet by [facility] of tablet 00:00: mouth in [place] [address] the Medical morning Branch and 1 tablet in the evening. famotidine 2021-04 Yes [id number] 40mg Take 1 [facility] 40 mg 1-17 tablet by ity of tablet 00:00: mouth in [place] [address] the Medical morning [place] and 1 tablet in the evening. famotidine 2021-04 Yes [id number] 40mg Take 1 [facility] 40 mg 1-17 tablet by it[facility] of tablet 00:00: mouth in [place] 00 the Medical morning Branch and 1 tablet in the evening. famotidine 2021-04 Yes [id number] 40mg Take 1 [facility] 40 mg 1-17 tablet by [facility] of tablet 00:00: mouth in [place] 00 the Medical morning Branch and 1 tablet in the evening. famotidine 2021-04 Yes [id number] 40mg Take 1 [facility] 40 mg 1-17 tablet by it[facility] of tablet 00:00: mouth in [place] 00 the Medical morning Branch and 1 tablet in the evening. famotidine 2021-04 Yes [id number] 40mg Take 1 [facility] 40 mg 1-17 tablet by ity of tablet 00:00: mouth in [place] [address] the Medical morning Branch and 1 tablet in the evening. famotidine 2021-04 Yes [id number] 40mg Take 1 [facility] 40 mg 1-17 tablet by [facility] of tablet 00:00: mouth in [place] [address] the Medical morning Branch and 1 tablet in the evening. famotidine 2021-04 Yes [id number] 40mg Take 1 [facility] 40 mg 1-17 tablet by [facility] of tablet 00:00: mouth in [place] [address] the Medical morning Branch and 1 tablet in the evening. famotidine 2021-04 Yes [id number] 40mg Take 1 [facility] 40 mg 1-17 tablet by [facility] of tablet 00:00: mouth in [place] [address] the Medical morning Branch and 1 tablet in the evening. famotidine 2021-04 Yes [id number] 40mg Take 1 [facility] 40 mg 1-17 tablet by [facility] of tablet 00:00: mouth in [place] [address] the Medical morning Branch and 1 tablet in the evening. famotidine 2021-04 Yes [id number] 40mg Take 1 [facility] 40 mg 1-17 tablet by [facility] of tablet 00:00: mouth in [place] [address] the Medical morning Branch and 1 tablet in the evening. famotidine 2021-04 Yes [id number] 40mg Take 1 [facility] 40 mg 1-17 tablet by [facility] of tablet 00:00: mouth in [place] [address] the Medical morning Branch and 1 tablet in the evening. famotidine 2021-04 Yes [id number] 40mg Take 1 [facility] 40 mg 1-17 tablet by [facility] of tablet 00:00: mouth in [place] [address] the Medical morning Branch and 1 tablet in the evening. famotidine 2021-04 Yes [id number] 40mg Take 1 [facility] 40 mg 1-17 tablet by [facility] of tablet 00:00: mouth in [place] 00 the Medical morning Branch and 1 tablet in the evening. famotidine 2021-04 Yes [id number] 40mg Take 1 [facility] 40 mg 1-17 tablet by [facility] of tablet 00:00: mouth in [place] 00 the Medical morning Branch and 1 tablet in the evening. famotidine 2021-04 Yes [id number] 40mg Take 1 [facility] 40 mg 1-17 tablet by [facility] of tablet 00:00: mouth in [place] 00 the Medical morning Branch and 1 tablet in the evening. famotidine 2021-04 Yes [id number] 40mg Take 1 [facility] 40 mg 1-17 tablet by [facility] of tablet 00:00: mouth in [place] 00 the Medical morning Branch and 1 tablet in the evening. famotidine 2021-04 Yes [id number] 40mg Take 1 [facility] 40 mg 1-17 tablet by [facility] of tablet 00:00: mouth in [place] 00 the Medical morning Branch and 1 tablet in the evening. famotidine 2021-04 Yes [id number] 40mg Take 1 [facility] 40 mg 1-17 tablet by [facility] of tablet 00:00: mouth in [place] 00 the Medical morning Branch and 1 tablet in the evening. famotidine 2021-04 Yes [id number] 40mg Take 1 [facility] 40 mg 1-17 tablet by it[facility] of tablet 00:00: mouth in [place] 00 the Medical morning Branch and 1 tablet in the evening. famotidine 2021-04 Yes [id number] 40mg Take 1 [facility] 40 mg 1-17 tablet by [facility] of tablet 00:00: mouth in [place] 00 the Medical morning Branch and 1 tablet in the evening. famotidine 2021-04 Yes [id number] 40mg Take 1 [facility] 40 mg 1-17 tablet by [facility] of tablet 00:00: mouth in [place] 00 the Medical morning Branch and 1 tablet in the evening. famotidine 2021-04 Yes [id number] 40mg Take 1 [facility] 40 mg 1-17 tablet by [facility] of tablet 00:00: mouth in [place] 00 the Medical morning Branch and 1 tablet in the evening. famotidine 2021-04 Yes [id number] 40mg Take 1 [facility] 40 mg 1-17 tablet by ity of tablet 00:00: mouth in [place] 00 the Medical morning Branch and 1 tablet in the evening. famotidine 2021-04 Yes [id number] 40mg Take 1 [facility] 40 mg 1-17 tablet by it[facility] of tablet 00:00: mouth in [place] 00 the Medical morning Branch and 1 tablet in the evening. famotidine 2021-04 Yes [id number] 40mg Take 1 [facility] 40 mg 1-17 tablet by [facility] of tablet 00:00: mouth in [place] 00 the Medical morning Branch and 1 tablet in the evening. famotidine 2021-04 Yes [id number] 40mg Take 1 [facility] 40 mg 1-17 tablet by it[facility] of tablet 00:00: mouth in [place] 00 the Medical morning Branch and 1 tablet in the evening. famotidine 2021-04 Yes [id number] 40mg Take 1 [facility] 40 mg 1-17 tablet by it[facility] of tablet 00:00: mouth in [place] [address] the Medical morning Branch and 1 tablet in the evening. famotidine 2021-04 Yes [id number] 40mg Take 1 [facility] 40 mg 1-17 tablet by ity of tablet 00:00: mouth in [place] [address] the Medical morning Branch and 1 tablet in the evening. famotidine 2021-04 Yes [id number] 40mg Take 1 [facility] 40 mg 1-17 tablet by ity of tablet 00:00: mouth in [place] [address] the Medical morning Branch and 1 tablet in the evening. famotidine 2021-04 Yes [id number] 40mg Take 1 [facility] 40 mg 1-17 tablet by ity of tablet 00:00: mouth in [place] [address] the Medical morning Branch and 1 tablet in the evening. famotidine 2021-04 Yes [id number] 40mg Take 1 [facility] 40 mg 1-17 tablet by ity of tablet 00:00: mouth in [place] [address] the Medical morning Branch and 1 tablet in the evening. famotidine 2021-04 Yes [id number] 40mg Take 1 [facility] 40 mg 1-17 tablet by ity of tablet 00:00: mouth in [place] [address] the Medical morning Branch and 1 tablet in the evening. famotidine 2021-04 Yes [id number] 40mg Take 1 [facility] 40 mg 1-17 tablet by ity of tablet 00:00: mouth in [place] [address] the Medical morning Branch and 1 tablet in the evening. famotidine 2021-04 Yes [id number] 40mg Take 1 [facility] 40 mg 1-17 tablet by ity of tablet 00:00: mouth in [place] [address] the Medical morning [place] and 1 tablet in the evening. famotidine 2021-04 Yes [id number] 40mg Take 1 [facility] 40 mg 1-17 tablet by ity of tablet 00:00: mouth in [place] [address] the [facility] morning [place] and 1 tablet in the evening. famotidine 2021-04 Yes [id number] 40mg Take 1 [facility] 40 mg 1-17 tablet by ity of tablet 00:00: mouth in [place] [address] the [facility] morning [place] and 1 tablet in the evening. famotidine 2021-04 Yes [id number] 40mg Take 1 [facility] 40 mg 1-17 tablet by ity of tablet 00:00: mouth in [place] 00 the [facility] morning [place] and 1 tablet in the evening. famotidine 2021-04 Yes [id number] 40mg Take 1 [facility] 40 mg 1-17 tablet by ity of tablet 00:00: mouth in [place] [address] the [facility] and 1 tablet in the evening. famotidine 2021-04 Yes [id number] 40mg Take 1 [facility] 40 mg 1-17 tablet by ity of tablet 00:00: mouth in [place] [address] the [facility] and 1 tablet in the evening. famotidine 2021-04 Yes [id number] 40mg Take 1 [facility] 40 mg 1-17 tablet by ity of tablet 00:00: mouth in [place] [address] the [facility] and 1 tablet in the evening. famotidine 2021-04- No [id number] 40mg Take 1 [facility] 40 mg 1-17 05-14 tablet by ity of tablet 00:00: 00:00 mouth in [place] 00 :00 the [facility] and 1 tablet in the evening. Insulin 2021-04 Yes [id number] INJECT 40 [facility] NPH-Regular 04-28 UNITS IN ity of Human Rec 00:00: THE IN THE [place] (HUMULIN 00 MORNING Medical 70/30 U-100 AND 40 Branch KWIKPEN) UNITS IN 100 unit/mL IN THE (70-30) EVENING injection Insulin 2021-04 Yes [id number] USE TO [facility] [place], 04-28 INJECT ity of Disposable, 00:00: INSULIN 5 [place] (BD 00 TIMES Medical ULTRAFINE DAILY. Branch III MINI DX:E11.65 PEN) 31 gauge x 3/16" Ndle insulin 2021-04 Yes [id number] 10U inject 10 [facility] lispro 1-04 9101 Units ity of (HUMALOG 00:00: [place] skin in Medical INSULIN) the Branch 100 unit/mL morning pen and 10 injector Units at noon and 10 Units in the evening. inject before meals. ondansetron 2021-04 Yes [id number] 4mg Take 1 [facility] 4 mg tablet 1-04 tablet by ity of 00:00: mouth [place] 00 every 12 Medical (twelve) Branch hours. atorvastati 2021-04 Yes [id number] 10mg Take 1 [facility] n 10 mg 1-04 tablet by ity of tablet 00:00: mouth at [place] 00 bedtime. Medical Branch Insulin 2021-04 Yes [id number] INJECT 40 [facility] NPH-Regular 1-04 9101 UNITS IN ity of Human Rec 00:00: THE IN THE [place] (HUMULIN 00 MORNING Medical 70/30 U-100 AND 40 Branch KWIKPEN) UNITS IN 100 unit/mL IN THE (70-30) EVENING injection Insulin 2021-04 Yes [id number] USE TO [facility] [place], - 9101 INJECT ity of Disposable, 00:00: INSULIN 5 [place] (BD 00 TIMES Medical ULTRAFINE DAILY. Branch III MINI DX:E11.65 PEN) 31 gauge x 3/16" Ndle insulin 2021-04 Yes [id number] 10U inject 10 [facility] lispro 1-04 9101 Units ity of (HUMALOG 00:00: [place] skin in Medical INSULIN) the Branch 100 unit/mL morning pen and 10 injector Units at noon and 10 Units in the evening. inject before meals. ondansetron 2021-04 Yes [id number] 4mg Take 1 [facility] 4 mg tablet 1-04 tablet by ity of 00:00: mouth [place] 00 every 12 Medical (twelve) Branch hours. atorvastati 2021-04 Yes [id number] 10mg Take 1 [facility] n 10 mg 1-04 tablet by ity of tablet 00:00: mouth at [place] 00 bedtime. Medical Branch Insulin 2021-04 Yes [id number] INJECT 40 [facility] NPH-Regular 1-04 9101 UNITS IN ity of Human Rec 00:00: THE IN THE [place] (HUMULIN 00 MORNING Medical 70/30 U-100 AND 40 Branch KWIKPEN) UNITS IN 100 unit/mL IN THE (70-30) EVENING injection Insulin 2021-04 Yes [id number] USE TO [facility] [place], - 9101 INJECT ity of Disposable, 00:00: INSULIN 5 [place] (BD 00 TIMES Medical ULTRAFINE DAILY. Branch III MINI DX:E11.65 PEN) 31 gauge x 3/16" Ndle insulin 2021-04 Yes [id number] 10U inject 10 [facility] lispro 1-04 9101 Units ity of (HUMALOG 00:00: [place] skin in Medical INSULIN) the Branch 100 unit/mL morning pen and 10 injector Units at noon and 10 Units in the evening. inject before meals. ondansetron 2021-04 Yes [id number] 4mg Take 1 [facility] 4 mg tablet 1-04 tablet by ity of 00:00: mouth [place] 00 every 12 Medical (twelve) Branch hours. atorvastati 2021-04 Yes [id number] 10mg Take 1 [facility] n 10 mg 1-04 tablet by ity of tablet 00:00: mouth at [place] 00 bedtime. Medical Branch Insulin 2021-04 Yes [id number] INJECT 40 [facility] NPH-Regular - 9101 UNITS IN ity of Human Rec 00:00: THE IN THE [place] (HUMULIN 00 MORNING Medical 70/30 U-100 AND 40 Branch KWIKPEN) UNITS IN 100 unit/mL IN THE (70-30) EVENING injection Insulin 2021-04 Yes [id number] USE TO [facility] [place], 04-28 9101 INJECT ity of Disposable, 00:00: INSULIN 5 [place] (BD 00 TIMES Medical ULTRAFINE DAILY. Branch III MINI DX:E11.65 PEN) 31 gauge x 3/16" Ndle insulin 2021-04 Yes [id number] 10U inject 10 [facility] lispro 1-04 9101 Units ity of (HUMALOG 00:00: [place] skin in Medical INSULIN) the Branch 100 unit/mL morning pen and 10 injector Units at noon and 10 Units in the evening. inject before meals. ondansetron 2021-04 Yes [id number] 4mg Take 1 [facility] 4 mg tablet 1-04 tablet by ity of 00:00: mouth [place] 00 every 12 Medical (twelve) Branch hours. atorvastati 2021-04 Yes [id number] 10mg Take 1 [facility] n 10 mg 1-04 tablet by ity of tablet 00:00: mouth at [place] 00 bedtime. Medical Branch Insulin 2021-04 Yes [id number] INJECT 40 [facility] NPH-Regular 1-04 9101 UNITS IN ity of Human Rec 00:00: THE IN THE [place] (HUMULIN 00 MORNING Medical 70/30 U-100 AND 40 Branch KWIKPEN) UNITS IN 100 unit/mL IN THE (70-30) EVENING injection Insulin 2021-04 Yes [id number] USE TO [facility] [place], 04-28 9101 INJECT ity of Disposable, 00:00: INSULIN 5 [place] (BD 00 TIMES Medical ULTRAFINE DAILY. Branch III MINI DX:E11.65 PEN) 31 gauge x 3/16" Ndle insulin 2021-04 Yes [id number] 10U inject 10 [facility] lispro 1-04 9101 Units ity of (HUMALOG 00:00: [place] skin in Medical INSULIN) the Branch 100 unit/mL morning pen and 10 injector Units at noon and 10 Units in the evening. inject before meals. ondansetron 2021-04 Yes [id number] 4mg Take 1 [facility] 4 mg tablet 1-04 tablet by ity of 00:00: mouth [place] 00 every 12 Medical (twelve) Branch hours. atorvastati 2021-04 Yes [id number] 10mg Take 1 [facility] n 10 mg 1-04 tablet by ity of tablet 00:00: mouth at [place] 00 bedtime. Medical Branch Insulin 2021-04 Yes [id number] INJECT 40 [facility] NPH-Regular 1-04 9101 UNITS IN ity of Human Rec 00:00: THE IN THE [place] (HUMULIN 00 MORNING Medical 70/30 U-100 AND 40 Branch KWIKPEN) UNITS IN 100 unit/mL IN THE (70-30) EVENING injection Insulin 2021-04 Yes [id number] USE TO [facility] [place], - 9101 INJECT ity of Disposable, 00:00: INSULIN 5 [place] (BD 00 TIMES Medical ULTRAFINE DAILY. Branch III MINI DX:E11.65 PEN) 31 gauge x 3/16" Ndle insulin 2021-04 Yes [id number] 10U inject 10 [facility] lispro 1-04 9101 Units ity of (HUMALOG 00:00: [place] skin in Medical INSULIN) the Branch 100 unit/mL morning pen and 10 injector Units at noon and 10 Units in the evening. inject before meals. ondansetron 2021-04 Yes [id number] 4mg Take 1 [facility] 4 mg tablet 1-04 tablet by ity of 00:00: mouth [place] 00 every 12 Medical (twelve) Branch hours. atorvastati 2021-04 Yes [id number] 10mg Take 1 [facility] n 10 mg 1-04 tablet by ity of tablet 00:00: mouth at [place] 00 bedtime. Medical Branch Insulin 2021-04 Yes [id number] INJECT 40 [facility] NPH-Regular 1-04 9101 UNITS IN ity of Human Rec 00:00: THE IN THE [place] (HUMULIN 00 MORNING Medical 70/30 U-100 AND 40 Branch KWIKPEN) UNITS IN 100 unit/mL IN THE (70-30) EVENING injection Insulin 2021-04 Yes [id number] USE TO [facility] [place], - 9101 INJECT ity of Disposable, 00:00: INSULIN 5 [place] (BD 00 TIMES Medical ULTRAFINE DAILY. Branch III MINI DX:E11.65 PEN) 31 gauge x 3/16" Ndle insulin 2021-04 Yes [id number] 10U inject 10 [facility] lispro 1-04 9101 Units ity of (HUMALOG 00:00: [place] 00 skin in Medical INSULIN) the Branch 100 unit/mL morning pen and 10 injector Units at noon and 10 Units in the evening. inject before meals. ondansetron 2021-04 Yes [id number] 4mg Take 1 [facility] 4 mg tablet 1-04 tablet by ity of 00:00: mouth [place] 00 every 12 Medical (twelve) Branch hours. atorvastati 2021-04 Yes [id number] 10mg Take 1 [facility] n 10 mg 1-04 tablet by ity of tablet 00:00: mouth at [place] 00 bedtime. Medical Branch Insulin 2021-04 Yes [id number] INJECT 40 [facility] NPH-Regular 1-04 9101 UNITS IN ity of Human Rec 00:00: THE IN THE [place] (HUMULIN 00 MORNING Medical 70/30 U-100 AND 40 Branch KWIKPEN) UNITS IN 100 unit/mL IN THE (70-30) EVENING injection Insulin 2021-04 Yes [id number] USE TO [facility] [place], - 9101 INJECT ity of Disposable, 00:00: INSULIN 5 [place] (BD 00 TIMES Medical ULTRAFINE DAILY. Branch III MINI DX:E11.65 PEN) 31 gauge x 3/16" Ndle insulin 2021-04 Yes [id number] 10U inject 10 [facility] lispro 1-04 9101 Units ity of (HUMALOG 00:00: [place] skin in Medical INSULIN) the Branch 100 unit/mL morning pen and 10 injector Units at noon and 10 Units in the evening. inject before meals. ondansetron 2021-04 Yes [id number] 4mg Take 1 [facility] 4 mg tablet 1-04 tablet by ity of 00:00: mouth [place] 00 every 12 Medical (twelve) Branch hours. atorvastati 2021-04 Yes [id number] 10mg Take 1 [facility] n 10 mg 1-04 tablet by ity of tablet 00:00: mouth at [place] 00 bedtime. Medical Branch Insulin 2021-04 Yes [id number] INJECT 40 [facility] NPH-Regular - 9101 UNITS IN ity of Human Rec 00:00: THE IN THE [place] (HUMULIN 00 MORNING Medical 70/30 U-100 AND 40 Branch KWIKPEN) UNITS IN 100 unit/mL IN THE (70-30) EVENING injection Insulin 2021-04 Yes [id number] USE TO [facility] [place], 04-28 9101 INJECT ity of Disposable, 00:00: INSULIN 5 [place] (BD 00 TIMES Medical ULTRAFINE DAILY. Branch III MINI DX:E11.65 PEN) 31 gauge x 3/16" Ndle insulin 2021-04 Yes [id number] 10U inject 10 [facility] lispro 1-04 9101 Units ity of (HUMALOG 00:00: [place] 00 skin in Medical INSULIN) the Branch 100 unit/mL morning pen and 10 injector Units at noon and 10 Units in the evening. inject before meals. ondansetron 2021-04 Yes [id number] 4mg Take 1 [facility] 4 mg tablet 1-04 tablet by ity of 00:00: mouth [place] 00 every 12 Medical (twelve) Branch hours. atorvastati 2021-04 Yes [id number] 10mg Take 1 [facility] n 10 mg 1-04 tablet by ity of tablet 00:00: mouth at [place] 00 bedtime. Medical Branch Insulin 2021-04 Yes [id number] INJECT 40 [facility] NPH-Regular 1-04 9101 UNITS IN ity of Human Rec 00:00: THE IN THE [place] (HUMULIN 00 MORNING Medical 70/30 U-100 AND 40 Branch KWIKPEN) UNITS IN 100 unit/mL IN THE (70-30) EVENING injection Insulin 2021-04 Yes [id number] USE TO [facility] [place], 1- 9101 INJECT ity of Disposable, 00:00: INSULIN 5 [place] (BD 00 TIMES Medical ULTRAFINE DAILY. Branch III MINI DX:E11.65 PEN) 31 gauge x 3/16" Ndle insulin 2021-04 Yes [id number] 10U inject 10 [facility] lispro 1-04 9101 Units ity of (HUMALOG 00:00: [place] skin in Medical INSULIN) the Branch 100 unit/mL morning pen and 10 injector Units at noon and 10 Units in the evening. inject before meals. ondansetron 2021-04 Yes [id number] 4mg Take 1 [facility] 4 mg tablet 1-04 tablet by ity of 00:00: mouth [place] 00 every 12 Medical (twelve) Branch hours. atorvastati 2021-04 Yes [id number] 10mg Take 1 [facility] n 10 mg 1-04 tablet by ity of tablet 00:00: mouth at [place] 00 bedtime. Medical Branch Insulin 2021-04 Yes [id number] INJECT 40 [facility] NPH-Regular 1-04 9101 UNITS IN ity of Human Rec 00:00: THE IN THE [place] (HUMULIN 00 MORNING Medical 70/30 U-100 AND 40 Branch KWIKPEN) UNITS IN 100 unit/mL IN THE (70-30) EVENING injection Insulin 2021-04 Yes [id number] USE TO [facility] [place], 1- 9101 INJECT ity of Disposable, 00:00: INSULIN 5 [place] (BD 00 TIMES Medical ULTRAFINE DAILY. Branch III MINI DX:E11.65 PEN) 31 gauge x 3/16" Ndle insulin 2021-04 Yes [id number] 10U inject 10 [facility] lispro 1-04 9101 Units ity of (HUMALOG 00:00: [place] 00 skin in Medical INSULIN) the Branch 100 unit/mL morning pen and 10 injector Units at noon and 10 Units in the evening. inject before meals. ondansetron 2021-04 Yes [id number] 4mg Take 1 [facility] 4 mg tablet 1-04 tablet by ity of 00:00: mouth [place] 00 every 12 Medical (twelve) Branch hours. atorvastati 2021-04 Yes [id number] 10mg Take 1 [facility] n 10 mg 1-04 tablet by ity of tablet 00:00: mouth at [place] 00 bedtime. Medical Branch Insulin 2021-04 Yes [id number] INJECT 40 [facility] NPH-Regular 1-04 9101 UNITS IN ity of Human Rec 00:00: THE IN THE [place] (HUMULIN 00 MORNING Medical 70/30 U-100 AND 40 Branch KWIKPEN) UNITS IN 100 unit/mL IN THE (70-30) EVENING injection Insulin 2021-04 Yes [id number] USE TO [facility] [place], - 9101 INJECT ity of Disposable, 00:00: INSULIN 5 [place] (BD 00 TIMES Medical ULTRAFINE DAILY. Branch III MINI DX:E11.65 PEN) 31 gauge x 3/16" Ndle insulin 2021-04 Yes [id number] 10U inject 10 [facility] lispro 1-04 9101 Units ity of (HUMALOG 00:00: [place] skin in Medical INSULIN) the Branch 100 unit/mL morning pen and 10 injector Units at noon and 10 Units in the evening. inject before meals. ondansetron 2021-04 Yes [id number] 4mg Take 1 [facility] 4 mg tablet 1-04 tablet by ity of 00:00: mouth [place] 00 every 12 Medical (twelve) Branch hours. atorvastati 2021-04 Yes [id number] 10mg Take 1 [facility] n 10 mg 1-04 tablet by ity of tablet 00:00: mouth at [place] 00 bedtime. Medical Branch Insulin 2021-04 Yes [id number] INJECT 40 [facility] NPH-Regular 1-04 9101 UNITS IN ity of Human Rec 00:00: THE IN THE [place] (HUMULIN 00 MORNING Medical 70/30 U-100 AND 40 Branch KWIKPEN) UNITS IN 100 unit/mL IN THE (70-30) EVENING injection Insulin 2021-04 Yes [id number] USE TO [facility] [place], - 9101 INJECT ity of Disposable, 00:00: INSULIN 5 [place] (BD 00 TIMES Medical ULTRAFINE DAILY. Branch III MINI DX:E11.65 PEN) 31 gauge x 3/16" Ndle insulin 2021-04 Yes [id number] 10U inject 10 [facility] lispro 1-04 9101 Units ity of (HUMALOG 00:00: [place] 00 skin in Medical INSULIN) the Branch 100 unit/mL morning pen and 10 injector Units at noon and 10 Units in the evening. inject before meals. ondansetron 2021-04 Yes [id number] 4mg Take 1 [facility] 4 mg tablet 1-04 tablet by ity of 00:00: mouth [place] 00 every 12 Medical (twelve) Branch hours. atorvastati 2021-04 Yes [id number] 10mg Take 1 [facility] n 10 mg 1-04 tablet by ity of tablet 00:00: mouth at [place] 00 bedtime. Medical Branch Insulin 2021-04 Yes [id number] INJECT 40 [facility] NPH-Regular - 9101 UNITS IN [facility] of Human Rec 00:00: THE IN THE [place] (HUMULIN 00 MORNING Medical 70/30 U-100 AND 40 Branch KWIKPEN) UNITS IN 100 unit/mL IN THE (70-30) EVENING injection Insulin 2021-04 Yes [id number] USE TO [facility] [place], 04-28 91 INJECT ity of Disposable, 00:00: INSULIN 5 [place] (BD 00 TIMES Medical ULTRAFINE DAILY. Branch III MINI DX:E11.65 PEN) 31 gauge x 3/16" Ndle insulin 2021-04 Yes [id number] 10U inject 10 [facility] lispro 1-04 9101 Units [facility] of (HUMALOG 00:00: [place] skin in Medical INSULIN) the Branch 100 unit/mL morning pen and 10 injector Units at noon and 10 Units in the evening. inject before meals. ondansetron 2021-04 Yes [id number] 4mg Take 1 [facility] 4 mg tablet 1-04 tablet by ity of 00:00: mouth [place] 00 every 12 Medical (twelve) Branch hours. atorvastati 2021-04 Yes [id number] 10mg Take 1 [facility] n 10 mg 1-04 tablet by ity of tablet 00:00: mouth at [place] 00 bedtime. Medical Branch Insulin 2021-04 Yes [id number] INJECT 40 [facility] NPH-Regular 1-04 9101 UNITS IN [facility] of Human Rec 00:00: THE IN THE [place] (HUMULIN 00 MORNING Medical 70/30 U-100 AND 40 Branch KWIKPEN) UNITS IN 100 unit/mL IN THE (70-30) EVENING injection Insulin 2021-04 Yes [id number] USE TO [facility] [place], - 9101 INJECT it[facility] of Disposable, 00:00: INSULIN 5 [place] (BD 00 TIMES Medical ULTRAFINE DAILY. Branch III MINI DX:E11.65 PEN) 31 gauge x 3/16" Ndle insulin 2021-04 Yes [id number] 10U inject 10 [facility] lispro 1-04 9101 Units [facility] of (HUMALOG 00:00: [place] 00 skin in Medical INSULIN) the Branch 100 unit/mL morning pen and 10 injector Units at noon and 10 Units in the evening. inject before meals. ondansetron 2021-04 Yes [id number] 4mg Take 1 [facility] 4 mg tablet 1-04 tablet by ity of 00:00: mouth [place] 00 every 12 Medical (twelve) Branch hours. atorvastati 2021-04 Yes [id number] 10mg Take 1 [facility] n 10 mg 1-04 tablet by ity of tablet 00:00: mouth at [place] 00 bedtime. Medical Branch Insulin 2021-04 Yes [id number] INJECT 40 [facility] NPH-Regular 1-04 9101 UNITS IN [facility] Human Rec 00:00: THE IN THE [place] (HUMULIN 00 MORNING Medical 70/30 U-100 AND 40 Branch KWIKPEN) UNITS IN 100 unit/mL IN THE (70-30) EVENING injection Insulin 2021-04 Yes [id number] USE TO [facility] [place], - 9101 INJECT ity of Disposable, 00:00: INSULIN 5 [place] (BD 00 TIMES Medical ULTRAFINE DAILY. Branch III MINI DX:E11.65 PEN) 31 gauge x 3/16" Ndle insulin 2021-04 Yes [id number] 10U inject 10 [facility] lispro 1-04 9101 Units it[facility] of (HUMALOG 00:00: [place] 00 skin in Medical INSULIN) the Branch 100 unit/mL morning pen and 10 injector Units at noon and 10 Units in the evening. inject before meals. ondansetron 2021-04 Yes [id number] 4mg Take 1 [facility] 4 mg tablet 1-04 tablet by ity of 00:00: mouth [place] 00 every 12 Medical (twelve) Branch hours. atorvastati 2021-04 Yes [id number] 10mg Take 1 [facility] n 10 mg 1-04 tablet by ity of tablet 00:00: mouth at [place] 00 bedtime. Medical Branch Insulin 2021-04 Yes [id number] INJECT 40 [facility] NPH-Regular 1-04 9101 UNITS IN [facility] of Human Rec 00:00: THE IN THE [place] (HUMULIN 00 MORNING Medical 70/30 U-100 AND 40 Branch KWIKPEN) UNITS IN 100 unit/mL IN THE (70-30) EVENING injection Insulin 2021-04 Yes [id number] USE TO [facility] [place], - 9101 INJECT ity of Disposable, 00:00: INSULIN 5 [place] (BD 00 TIMES Medical ULTRAFINE DAILY. Branch III MINI DX:E11.65 PEN) 31 gauge x 3/16" Ndle insulin 2021-04 Yes [id number] 10U inject 10 [facility] lispro 1-04 9101 Units ity of (HUMALOG 00:00: [place] 00 skin in Medical INSULIN) the Branch 100 unit/mL morning pen and 10 injector Units at noon and 10 Units in the evening. inject before meals. ondansetron 2021-04 Yes [id number] 4mg Take 1 [facility] 4 mg tablet 1-04 tablet by ity of 00:00: mouth [place] 00 every 12 Medical (twelve) Branch hours. atorvastati 2021-04 Yes [id number] 10mg Take 1 [facility] n 10 mg 1-04 tablet by ity of tablet 00:00: mouth at [place] 00 bedtime. Medical Branch Insulin 2021-04 Yes [id number] INJECT 40 [facility] NPH-Regular 1-04 9101 UNITS IN [facility] of Human Rec 00:00: THE IN THE [place] (HUMULIN 00 MORNING Medical 70/30 U-100 AND 40 Branch KWIKPEN) UNITS IN 100 unit/mL IN THE (70-30) EVENING injection Insulin 2021-04 Yes [id number] USE TO [facility] [place], 1- 9101 INJECT ity of Disposable, 00:00: INSULIN 5 [place] (BD 00 TIMES Medical ULTRAFINE DAILY. Branch III MINI DX:E11.65 PEN) 31 gauge x 3/16" Ndle insulin 2021-04 Yes [id number] 10U inject 10 [facility] lispro 1-04 9101 Units it[facility] of (HUMALOG 00:00: [place] 00 skin in Medical INSULIN) the Branch 100 unit/mL morning pen and 10 injector Units at noon and 10 Units in the evening. inject before meals. ondansetron 2021-04 Yes [id number] 4mg Take 1 [facility] 4 mg tablet 1-04 tablet by ity of 00:00: mouth [place] 00 every 12 Medical (twelve) Branch hours. atorvastati 2021-04 Yes [id number] 10mg Take 1 [facility] n 10 mg 1-04 tablet by ity of tablet 00:00: mouth at [place] 00 bedtime. Medical Branch Insulin 2021-04 Yes [id number] INJECT 40 [facility] NPH-Regular - 9101 UNITS IN [facility] of Human Rec 00:00: THE IN THE [place] (HUMULIN 00 MORNING Medical 70/30 U-100 AND 40 Branch KWIKPEN) UNITS IN 100 unit/mL IN THE (70-30) EVENING injection Insulin 2021-04 Yes [id number] USE TO [facility] [place], 04-28 9101 INJECT ity of Disposable, 00:00: INSULIN 5 [place] (BD 00 TIMES Medical ULTRAFINE DAILY. Branch III MINI DX:E11.65 PEN) 31 gauge x 3/16" Ndle insulin 2021-04 Yes [id number] 10U inject 10 [facility] lispro 1-04 9101 Units ity of (HUMALOG 00:00: [place] 00 skin in Medical INSULIN) the Branch 100 unit/mL morning pen and 10 injector Units at noon and 10 Units in the evening. inject before meals. ondansetron 2021-04 Yes [id number] 4mg Take 1 [facility] 4 mg tablet 1-04 tablet by ity of 00:00: mouth [place] 00 every 12 Medical (twelve) Branch hours. atorvastati 2021-04 Yes [id number] 10mg Take 1 [facility] n 10 mg 1-04 tablet by ity of tablet 00:00: mouth at [place] 00 bedtime. Medical Branch Insulin 2021-04 Yes [id number] INJECT 40 [facility] NPH-Regular 1-04 9101 UNITS IN [facility] of Human Rec 00:00: THE IN THE [place] (HUMULIN 00 MORNING Medical 70/30 U-100 AND 40 Branch KWIKPEN) UNITS IN 100 unit/mL IN THE (70-30) EVENING injection Insulin 2021-04 Yes [id number] USE TO [facility] [place], 04-28 91 INJECT ity of Disposable, 00:00: INSULIN 5 [place] (BD 00 TIMES Medical ULTRAFINE DAILY. Branch III MINI DX:E11.65 PEN) 31 gauge x 3/16" Ndle insulin 2021-04 Yes [id number] 10U inject 10 [facility] lispro 1-04 9101 Units it[facility] of (HUMALOG 00:00: [place] 00 skin in Medical INSULIN) the Branch 100 unit/mL morning pen and 10 injector Units at noon and 10 Units in the evening. inject before meals. ondansetron 2021-04 Yes [id number] 4mg Take 1 [facility] 4 mg tablet 1-04 tablet by ity of 00:00: mouth [place] 00 every 12 Medical (twelve) Branch hours. atorvastati 2021-04 Yes [id number] 10mg Take 1 [facility] n 10 mg 1-04 tablet by ity of tablet 00:00: mouth at [place] 00 bedtime. Medical Branch Insulin 2021-04 Yes [id number] INJECT 40 [facility] NPH-Regular 1-04 9101 UNITS IN [facility] of Human Rec 00:00: THE IN THE [place] (HUMULIN 00 MORNING Medical 70/30 U-100 AND 40 Branch KWIKPEN) UNITS IN 100 unit/mL IN THE (70-30) EVENING injection Insulin 2021-04 Yes [id number] USE TO [facility] [place], - 9101 INJECT ity of Disposable, 00:00: INSULIN 5 [place] (BD 00 TIMES Medical ULTRAFINE DAILY. Branch III MINI DX:E11.65 PEN) 31 gauge x 3/16" Ndle insulin 2021-04 Yes [id number] 10U inject 10 [facility] lispro 1-04 9101 Units ity of (HUMALOG 00:00: [place] 00 skin in Medical INSULIN) the Branch 100 unit/mL morning pen and 10 injector Units at noon and 10 Units in the evening. inject before meals. ondansetron 2021-04 Yes [id number] 4mg Take 1 [facility] 4 mg tablet 1-04 tablet by ity of 00:00: mouth [place] 00 every 12 Medical (twelve) Branch hours. atorvastati 2021-04 Yes [id number] 10mg Take 1 [facility] n 10 mg 1-04 tablet by ity of tablet 00:00: mouth at [place] 00 bedtime. Medical Branch Insulin 2021-04 Yes [id number] INJECT 40 [facility] NPH-Regular 1-04 9101 UNITS IN [facility] of Human Rec 00:00: THE IN THE [place] (HUMULIN 00 MORNING Medical 70/30 U-100 AND 40 Branch KWIKPEN) UNITS IN 100 unit/mL IN THE (70-30) EVENING injection Insulin 2021-04 Yes [id number] USE TO [facility] [place], - 9101 INJECT ity of Disposable, 00:00: INSULIN 5 [place] (BD 00 TIMES Medical ULTRAFINE DAILY. Branch III MINI DX:E11.65 PEN) 31 gauge x 3/16" Ndle insulin 2021-04 Yes [id number] 10U inject 10 [facility] lispro 1-04 9101 Units ity of (HUMALOG 00:00: [place] 00 skin in Medical INSULIN) the Branch 100 unit/mL morning pen and 10 injector Units at noon and 10 Units in the evening. inject before meals. ondansetron 2021-04 Yes [id number] 4mg Take 1 [facility] 4 mg tablet 1-04 tablet by ity of 00:00: mouth [place] 00 every 12 Medical (twelve) Branch hours. atorvastati 2021-04 Yes [id number] 10mg Take 1 [facility] n 10 mg 1-04 tablet by ity of tablet 00:00: mouth at [place] 00 bedtime. Medical Branch Insulin 2021-04 Yes [id number] INJECT 40 [facility] NPH-Regular 1-04 9101 UNITS IN [facility] of Human Rec 00:00: THE IN THE [place] (HUMULIN 00 MORNING Medical 70/30 U-100 AND 40 Branch KWIKPEN) UNITS IN 100 unit/mL IN THE (70-30) EVENING injection Insulin 2021-04 Yes [id number] USE TO [facility] [place], - 9101 INJECT ity of Disposable, 00:00: INSULIN 5 [place] (BD 00 TIMES Medical ULTRAFINE DAILY. Branch III MINI DX:E11.65 PEN) 31 gauge x 3/16" Ndle insulin 2021-04 Yes [id number] 10U inject 10 [facility] lispro 1-04 9101 Units ity of (HUMALOG 00:00: [place] 00 skin in Medical INSULIN) the Branch 100 unit/mL morning pen and 10 injector Units at noon and 10 Units in the evening. inject before meals. ondansetron 2021-04 Yes [id number] 4mg Take 1 [facility] 4 mg tablet 1-04 tablet by ity of 00:00: mouth [place] 00 every 12 Medical (twelve) Branch hours. atorvastati 2021-04 Yes [id number] 10mg Take 1 [facility] n 10 mg 1-04 tablet by ity of tablet 00:00: mouth at [place] 00 bedtime. Medical Branch Insulin 2021-04 Yes [id number] INJECT 40 [facility] NPH-Regular 1-04 9101 UNITS IN [facility] of Human Rec 00:00: THE IN THE [place] (HUMULIN 00 MORNING Medical 70/30 U-100 AND 40 Branch KWIKPEN) UNITS IN 100 unit/mL IN THE (70-30) EVENING injection insulin 2021-04 Yes [id number] 10U inject 10 [facility] lispro 1-04 9101 Units ity of (HUMALOG 00:00: [place] 00 skin in Medical INSULIN) the Branch 100 unit/mL morning pen and 10 injector Units at noon and 10 Units in the evening. inject before meals. ondansetron 2021-04 Yes [id number] 4mg Take 1 [facility] 4 mg tablet 1-04 tablet by ity of 00:00: mouth [place] 00 every 12 Medical (twelve) Branch hours. atorvastati 2021-04 Yes [id number] 10mg Take 1 [facility] n 10 mg 1-04 tablet by ity of tablet 00:00: mouth at [place] 00 bedtime. Medical Branch Insulin 2021-04 Yes [id number] INJECT 40 [facility] NPH-Regular 1-04 9101 UNITS IN [facility] of Human Rec 00:00: THE IN THE [place] (HUMULIN 00 MORNING Medical 70/30 U-100 AND 40 Branch KWIKPEN) UNITS IN 100 unit/mL IN THE (70-30) EVENING injection insulin 2021-04 Yes [id number] 10U inject 10 [facility] lispro 1-04 9101 Units ity of (HUMALOG 00:00: [place] 00 skin in Medical INSULIN) the Branch 100 unit/mL morning pen and 10 injector Units at noon and 10 Units in the evening. inject before meals. ondansetron 2021-04 Yes [id number] 4mg Take 1 [facility] 4 mg tablet 1-04 tablet by ity of 00:00: mouth [place] 00 every 12 Medical (twelve) Branch hours. atorvastati 2021-04 Yes [id number] 10mg Take 1 [facility] n 10 mg 1-04 tablet by ity of tablet 00:00: mouth at [place] 00 bedtime. Medical Branch Insulin 2021-04 Yes [id number] INJECT 40 [facility] NPH-Regular 1-04 9101 UNITS IN [facility] of Human Rec 00:00: THE IN THE [place] (HUMULIN 00 MORNING Medical 70/30 U-100 AND 40 Branch KWIKPEN) UNITS IN 100 unit/mL IN THE (70-30) EVENING injection insulin 2021-04 Yes [id number] 10U inject 10 [facility] lispro 1-04 9101 Units ity of (HUMALOG 00:00: [place] 00 skin in Medical INSULIN) the Branch 100 unit/mL morning pen and 10 injector Units at noon and 10 Units in the evening. inject before meals. ondansetron 2021-04 Yes [id number] 4mg Take 1 [facility] 4 mg tablet 1-04 tablet by ity of 00:00: mouth [place] 00 every 12 Medical (twelve) Branch hours. atorvastati 2021-04 Yes [id number] 10mg Take 1 [facility] n 10 mg 1-04 tablet by ity of tablet 00:00: mouth at [place] 00 bedtime. Medical Branch Insulin 2021-04 Yes [id number] INJECT 40 [facility] NPH-Regular 1-04 9101 UNITS IN [facility] of Human Rec 00:00: THE IN THE [place] (HUMULIN 00 MORNING Medical 70/30 U-100 AND 40 Branch KWIKPEN) UNITS IN 100 unit/mL IN THE (70-30) EVENING injection insulin 2021-04 Yes [id number] 10U inject 10 [facility] lispro 1-04 9101 Units ity of (HUMALOG 00:00: [place] 00 skin in Medical INSULIN) the Branch 100 unit/mL morning pen and 10 injector Units at noon and 10 Units in the evening. inject before meals. ondansetron 2021-04 Yes [id number] 4mg Take 1 [facility] 4 mg tablet 1-04 tablet by ity of 00:00: mouth [place] 00 every 12 Medical (twelve) Branch hours. atorvastati 2021-04 Yes [id number] 10mg Take 1 [facility] n 10 mg 1-04 tablet by ity of tablet 00:00: mouth at [place] 00 bedtime. Medical Branch Insulin 2021-04 Yes [id number] INJECT 40 [facility] NPH-Regular 1-04 9101 UNITS IN [facility] of Human Rec 00:00: THE IN THE [place] (HUMULIN 00 MORNING Medical 70/30 U-100 AND 40 Branch KWIKPEN) UNITS IN 100 unit/mL IN THE (70-30) EVENING injection insulin 2021-04 Yes [id number] 10U inject 10 [facility] lispro 1-04 9101 Units ity of (HUMALOG 00:00: [place] 00 skin in Medical INSULIN) the Branch 100 unit/mL morning pen and 10 injector Units at noon and 10 Units in the evening. inject before meals. ondansetron 2021-04 Yes [id number] 4mg Take 1 [facility] 4 mg tablet 1-04 tablet by ity of 00:00: mouth [place] 00 every 12 Medical (twelve) Branch hours. atorvastati 2021-04 Yes [id number] 10mg Take 1 [facility] n 10 mg 1-04 tablet by ity of tablet 00:00: mouth at [place] 00 bedtime. Medical Branch Insulin 2021-04 Yes [id number] INJECT 40 [facility] NPH-Regular 1-04 9101 UNITS IN [facility] of Human Rec 00:00: THE IN THE [place] (HUMULIN 00 MORNING Medical 70/30 U-100 AND 40 Branch KWIKPEN) UNITS IN 100 unit/mL IN THE (70-30) EVENING injection insulin 2021-04 Yes [id number] 10U inject 10 [facility] lispro 1-04 9101 Units ity of (HUMALOG 00:00: [place] 00 skin in Medical INSULIN) the Branch 100 unit/mL morning pen and 10 injector Units at noon and 10 Units in the evening. inject before meals. ondansetron 2021-04 Yes [id number] 4mg Take 1 [facility] 4 mg tablet 1-04 tablet by ity of 00:00: mouth [place] 00 every 12 Medical (twelve) Branch hours. atorvastati 2021-04 Yes [id number] 10mg Take 1 [facility] n 10 mg 1-04 tablet by ity of tablet 00:00: mouth at [place] 00 bedtime. Medical Branch Insulin 2021-04 Yes [id number] INJECT 40 [facility] NPH-Regular 1-04 9101 UNITS IN [facility] of Human Rec 00:00: THE IN THE [place] (HUMULIN 00 MORNING Medical 70/30 U-100 AND 40 Branch KWIKPEN) UNITS IN 100 unit/mL IN THE (70-30) EVENING injection insulin 2021-04 Yes [id number] 10U inject 10 [facility] lispro 1-04 9101 Units ity of (HUMALOG 00:00: [place] 00 skin in Medical INSULIN) the Branch 100 unit/mL morning pen and 10 injector Units at noon and 10 Units in the evening. inject before meals. ondansetron 2021-04 Yes [id number] 4mg Take 1 [facility] 4 mg tablet 1-04 tablet by ity of 00:00: mouth [place] 00 every 12 Medical (twelve) Branch hours. atorvastati 2021-04 Yes [id number] 10mg Take 1 [facility] n 10 mg 1-04 tablet by ity of tablet 00:00: mouth at [place] 00 bedtime. Medical Branch Insulin 2021-04 Yes [id number] INJECT 40 [facility] NPH-Regular 1-04 9101 UNITS IN [facility] of Human Rec 00:00: THE IN THE [place] (HUMULIN 00 MORNING Medical 70/30 U-100 AND 40 Branch KWIKPEN) UNITS IN 100 unit/mL IN THE (70-30) EVENING injection insulin 2021-04 Yes [id number] 10U inject 10 [facility] lispro 1-04 9101 Units ity of (HUMALOG 00:00: [place] 00 skin in Medical INSULIN) the Branch 100 unit/mL morning pen and 10 injector Units at noon and 10 Units in the evening. inject before meals. ondansetron 2021-04 Yes [id number] 4mg Take 1 [facility] 4 mg tablet 1-04 tablet by ity of 00:00: mouth [place] 00 every 12 Medical (twelve) Branch hours. atorvastati 2021-04 Yes [id number] 10mg Take 1 [facility] n 10 mg 1-04 tablet by ity of tablet 00:00: mouth at [place] 00 bedtime. Medical Branch Insulin 2021-04 Yes [id number] INJECT 40 [facility] NPH-Regular 1-04 9101 UNITS IN [facility] of Human Rec 00:00: THE IN THE [place] (HUMULIN 00 MORNING Medical 70/30 U-100 AND 40 Branch KWIKPEN) UNITS IN 100 unit/mL IN THE (70-30) EVENING injection insulin 2021-04 Yes [id number] 10U inject 10 [facility] lispro 1-04 9101 Units ity of (HUMALOG 00:00: [place] 00 skin in Medical INSULIN) the Branch 100 unit/mL morning pen and 10 injector Units at noon and 10 Units in the evening. inject before meals. ondansetron 2021-04 Yes [id number] 4mg Take 1 [facility] 4 mg tablet 1-04 tablet by ity of 00:00: mouth [place] 00 every 12 Medical (twelve) Branch hours. atorvastati 2021-04 Yes [id number] 10mg Take 1 [facility] n 10 mg 1-04 tablet by ity of tablet 00:00: mouth at [place] 00 bedtime. Medical Branch Insulin 2021-04 Yes [id number] INJECT 40 [facility] NPH-Regular 1-04 9101 UNITS IN [facility] of Human Rec 00:00: THE IN THE [place] (HUMULIN 00 MORNING Medical 70/30 U-100 AND 40 Branch KWIKPEN) UNITS IN 100 unit/mL IN THE (70-30) EVENING injection insulin 2021-04 Yes [id number] 10U inject 10 [facility] lispro 1-04 9101 Units ity of (HUMALOG 00:00: [place] 00 skin in Medical INSULIN) the Branch 100 unit/mL morning pen and 10 injector Units at noon and 10 Units in the evening. inject before meals. ondansetron 2021-04 Yes [id number] 4mg Take 1 [facility] 4 mg tablet 1-04 tablet by ity of 00:00: mouth [place] 00 every 12 Medical (twelve) Branch hours. atorvastati 2021-04 Yes [id number] 10mg Take 1 [facility] n 10 mg 1-04 tablet by ity of tablet 00:00: mouth at [place] 00 bedtime. Medical Branch Insulin 2021-04 Yes [id number] INJECT 40 [facility] NPH-Regular 1-04 9101 UNITS IN [facility] of Human Rec 00:00: THE IN THE [place] (HUMULIN 00 MORNING Medical 70/30 U-100 AND 40 Branch KWIKPEN) UNITS IN 100 unit/mL IN THE (70-30) EVENING injection insulin 2021-04 Yes [id number] 10U inject 10 [facility] lispro 1-04 9101 Units ity of (HUMALOG 00:00: [place] 00 skin in Medical INSULIN) the Branch 100 unit/mL morning pen and 10 injector Units at noon and 10 Units in the evening. inject before meals. ondansetron 2021-04 Yes [id number] 4mg Take 1 [facility] 4 mg tablet 1-04 tablet by ity of 00:00: mouth [place] 00 every 12 Medical (twelve) Branch hours. atorvastati 2021-04 Yes [id number] 10mg Take 1 [facility] n 10 mg 1-04 tablet by ity of tablet 00:00: mouth at [place] 00 bedtime. Medical Branch Insulin 2021-04 Yes [id number] INJECT 40 [facility] NPH-Regular 1-04 9101 UNITS IN [facility]y of Human Rec 00:00: THE IN THE [place] (HUMULIN 00 MORNING Medical 70/30 U-100 AND 40 Branch KWIKPEN) UNITS IN 100 unit/mL IN THE (70-30) EVENING injection insulin 2021-04 Yes [id number] 10U inject 10 [facility] lispro 1-04 9101 Units ity of (HUMALOG 00:00: [place] 00 skin in Medical INSULIN) the Branch 100 unit/mL morning pen and 10 injector Units at noon and 10 Units in the evening. inject before meals. ondansetron 2021-04 Yes [id number] 4mg Take 1 [facility] 4 mg tablet 1-04 tablet by ity of 00:00: mouth [place] 00 every 12 Medical (twelve) Branch hours. atorvastati 2021-04 Yes [id number] 10mg Take 1 [facility] n 10 mg 1-04 tablet by ity of tablet 00:00: mouth at [place] 00 bedtime. Medical Branch Insulin 2021-04 Yes [id number] INJECT 40 [facility] NPH-Regular 1-04 9101 UNITS IN [facility] of Human Rec 00:00: THE IN THE [place] (HUMULIN 00 MORNING Medical 70/30 U-100 AND 40 Branch KWIKPEN) UNITS IN 100 unit/mL IN THE (70-30) EVENING injection insulin 2021-04 Yes [id number] 10U inject 10 [facility] lispro 1-04 9101 Units ity of (HUMALOG 00:00: [place] 00 skin in Medical INSULIN) the Branch 100 unit/mL morning pen and 10 injector Units at noon and 10 Units in the evening. inject before meals. ondansetron 2021-04 Yes [id number] 4mg Take 1 [facility] 4 mg tablet 1-04 tablet by ity of 00:00: mouth [place] 00 every 12 Medical (twelve) Branch hours. atorvastati 2021-04 Yes [id number] 10mg Take 1 [facility] n 10 mg 1-04 tablet by [facility]y of tablet 00:00: mouth at [place] 00 bedtime. Medical Branch Insulin 2021-04 Yes [id number] INJECT 40 [facility] NPH-Regular 1-04 9101 UNITS IN [facility]y of Human Rec 00:00: THE IN THE [place] (HUMULIN 00 MORNING Medical 70/30 U-100 AND 40 Branch KWIKPEN) UNITS IN 100 unit/mL IN THE (70-30) EVENING injection insulin 2021-04 Yes [id number] 10U inject 10 [facility] lispro 1-04 9101 Units ity of (HUMALOG 00:00: [place] 00 skin in Medical INSULIN) the Branch 100 unit/mL morning pen and 10 injector Units at noon and 10 Units in the evening. inject before meals. ondansetron 2021-04 Yes [id number] 4mg Take 1 [facility] 4 mg tablet 1-04 tablet by ity of 00:00: mouth [place] 00 every 12 Medical (twelve) Branch hours. atorvastati 2021-04 Yes [id number] 10mg Take 1 [facility] n 10 mg 1-04 tablet by ity of tablet 00:00: mouth at [place] 00 bedtime. Medical Branch Insulin 2021-04 Yes [id number] INJECT 40 [facility] NPH-Regular 1-04 9101 UNITS IN [facility]y of Human Rec 00:00: THE IN THE [place] (HUMULIN 00 MORNING Medical 70/30 U-100 AND 40 Branch KWIKPEN) UNITS IN 100 unit/mL IN THE (70-30) EVENING injection insulin 2021-04 Yes [id number] 10U inject 10 [facility] lispro 1-04 9101 Units ity of (HUMALOG 00:00: [place] 00 skin in Medical INSULIN) the Branch 100 unit/mL morning pen and 10 injector Units at noon and 10 Units in the evening. inject before meals. ondansetron 2021-04 Yes [id number] 4mg Take 1 [facility] 4 mg tablet 1-04 tablet by ity of 00:00: mouth [place] 00 every 12 Medical (twelve) Branch hours. atorvastati 2021-04 Yes [id number] 10mg Take 1 [facility] n 10 mg 1-04 tablet by ity of tablet 00:00: mouth at [place] 00 bedtime. Medical Branch Insulin 2021-04 Yes [id number] INJECT 40 [facility] NPH-Regular 1-04 9101 UNITS IN ity of Human Rec 00:00: THE IN THE [place] (HUMULIN 00 MORNING Medical 70/30 U-100 AND 40 Branch KWIKPEN) UNITS IN 100 unit/mL IN THE (70-30) EVENING injection insulin 2021-04 Yes [id number] 10U inject 10 [facility] lispro 1-04 9101 Units [facility] (HUMALOG 00:[place] skin in Medical INSULIN) the Branch 100 unit/mL morning pen and 10 injector Units at noon and 10 Units in the evening. inject before meals. ondansetron 2021-04 Yes [id number] 4mg Take 1 [facility] 4 mg tablet 1-04 tablet by ity of 00:00: mouth [place] 00 every 12 Medical (twelve) Branch hours. atorvastati 2021-04 Yes [id number] 10mg Take 1 [facility] n 10 mg 1-04 tablet by [facility]y of tablet 00:00: mouth at [place] 00 bedtime. Medical Branch Insulin 2021-04 Yes [id number] INJECT 40 [facility] NPH-Regular 1-04 9101 UNITS IN [facility] of Human Rec 00:00: THE IN THE [place] (HUMULIN 00 MORNING Medical 70/30 U-100 AND 40 Branch KWIKPEN) UNITS IN 100 unit/mL IN THE (70-30) EVENING injection insulin 2021-04 Yes [id number] 10U inject 10 [facility] lispro 1-04 9101 Units [facility] (HUMALOG 00:00: [place] skin in Medical INSULIN) the Branch 100 unit/mL morning pen and 10 injector Units at noon and 10 Units in the evening. inject before meals. ondansetron 2021-04 Yes [id number] 4mg Take 1 [facility] 4 mg tablet 1-04 tablet by [facility]y of 00:00: mouth [place] 00 every 12 Medical (twelve) Branch hours. atorvastati 2021-04 Yes [id number] 10mg Take 1 [facility] n 10 mg 1-04 tablet by [facility] of tablet 00:00: mouth at [place] 00 bedtime. Medical Branch Insulin 2021-04 Yes [id number] INJECT 40 [facility] NPH-Regular 1-04 9101 UNITS IN [facility] Human Rec 00:00: THE IN THE [place] (HUMULIN 00 MORNING Medical 70/30 U-100 AND 40 Branch KWIKPEN) UNITS IN 100 unit/mL IN THE (70-30) EVENING injection insulin 2021-04 Yes [id number] 10U inject 10 [facility] lispro 1-04 9101 Units [facility] (HUMALOG 00:00: [place] skin in Medical INSULIN) the Branch 100 unit/mL morning pen and 10 injector Units at noon and 10 Units in the evening. inject before meals. ondansetron 2021-04 Yes [id number] 4mg Take 1 [facility] 4 mg tablet 1-04 tablet by [facility]y of 00:00: mouth [place] 00 every 12 Medical (twelve) Branch hours. atorvastati 2021-04 Yes [id number] 10mg Take 1 [facility] n 10 mg 1-04 tablet by [facility] of tablet 00:00: mouth at [place] 00 bedtime. Medical Branch Insulin 2021-04 Yes [id number] INJECT 40 [facility] NPH-Regular 1-04 9101 UNITS IN [facility] Human Rec 00:00: THE IN THE [place] (HUMULIN 00 MORNING Medical 70/30 U-100 AND 40 Branch KWIKPEN) UNITS IN 100 unit/mL IN THE (70-30) EVENING injection insulin 2021-04 Yes [id number] 10U inject 10 [facility] lispro 1-04 9101 Units [facility] (HUMALOG 00:00: [place] 00 skin in Medical INSULIN) the Branch 100 unit/mL morning pen and 10 injector Units at noon and 10 Units in the evening. inject before meals. ondansetron 2021-04 Yes [id number] 4mg Take 1 [facility] 4 mg tablet 1-04 tablet by [facility] of 00:00: mouth [place] 00 every 12 Medical (twelve) Branch hours. atorvastati 2021-04 Yes [id number] 10mg Take 1 [facility] n 10 mg 1-04 tablet by [facility] of tablet 00:00: mouth at [place] 00 bedtime. Medical Branch Insulin 2021-04 Yes [id number] INJECT 40 [facility] NPH-Regular 1-04 9101 UNITS IN [facility] Human Rec 00:00: THE IN THE [place] (HUMULIN 00 MORNING Medical 70/30 U-100 AND 40 Branch KWIKPEN) UNITS IN 100 unit/mL IN THE (70-30) EVENING injection insulin 2021-04 Yes [id number] 10U inject 10 [facility] lispro 1-04 9101 Units [facility] (HUMALOG 00:00: [place] 00 skin in Medical INSULIN) the Branch 100 unit/mL morning pen and 10 injector Units at noon and 10 Units in the evening. inject before meals. ondansetron 2021-04 Yes [id number] 4mg Take 1 [facility] 4 mg tablet 1-04 tablet by [facility]y of 00:00: mouth [place] 00 every 12 Medical (twelve) Branch hours. atorvastati 2021-04 Yes [id number] 10mg Take 1 [facility] n 10 mg 1-04 tablet by [facility] of tablet 00:00: mouth at [place] 00 bedtime. Medical Branch Insulin 2021-04 Yes [id number] INJECT 40 [facility] NPH-Regular 1-04 9101 UNITS IN [facility] Human Rec 00:00: THE IN THE [place] (HUMULIN 00 MORNING Medical 70/30 U-100 AND 40 Branch KWIKPEN) UNITS IN 100 unit/mL IN THE (70-30) EVENING injection insulin 2021-04 Yes [id number] 10U inject 10 [facility] lispro 1-04 9101 Units [facility] (HUMALOG 00:00: [place] 00 skin in Medical INSULIN) the Branch 100 unit/mL morning pen and 10 injector Units at noon and 10 Units in the evening. inject before meals. ondansetron 2021-04 Yes [id number] 4mg Take 1 [facility] 4 mg tablet 1-04 tablet by [facility] of 00:00: mouth [place] 00 every 12 Medical (twelve) Branch hours. atorvastati 2021-04 Yes [id number] 10mg Take 1 [facility] n 10 mg 1-04 tablet by [facility] of tablet 00:00: mouth at [place] 00 bedtime. Medical Branch Insulin 2021-04 Yes [id number] INJECT 40 [facility] NPH-Regular 1-04 9101 UNITS IN [facility] Human Rec 00:00: THE IN THE [place] (HUMULIN 00 MORNING Medical 70/30 U-100 AND 40 Branch KWIKPEN) UNITS IN 100 unit/mL IN THE (70-30) EVENING injection insulin 2021-04 Yes [id number] 10U inject 10 [facility] lispro 1-04 9101 Units [facility] (HUMALOG 00:00: [place] 00 skin in Medical INSULIN) the Branch 100 unit/mL morning pen and 10 injector Units at noon and 10 Units in the evening. inject before meals. ondansetron 2021-04 Yes [id number] 4mg Take 1 [facility] 4 mg tablet 1-04 tablet by [facility] of 00:00: mouth [place] 00 every 12 Medical (twelve) Branch hours. atorvastati 2021-04 Yes [id number] 10mg Take 1 [facility] n 10 mg 1-04 tablet by [facility] of tablet 00:00: mouth at [place] 00 bedtime. Medical Branch Insulin 2021-04 Yes [id number] INJECT 40 [facility] NPH-Regular 1-04 9101 UNITS IN [facility] Human Rec 00:00: THE IN THE [place] (HUMULIN 00 MORNING Medical 70/30 U-100 AND 40 Branch KWIKPEN) UNITS IN 100 unit/mL IN THE (70-30) EVENING injection insulin 2021-04 Yes [id number] 10U inject 10 [facility] lispro 1-04 9101 Units [facility] (HUMALOG 00:00: [place] 00 skin in Medical INSULIN) the Branch 100 unit/mL morning pen and 10 injector Units at noon and 10 Units in the evening. inject before meals. ondansetron 2021-04 Yes [id number] 4mg Take 1 [facility] 4 mg tablet 1-04 tablet by [facility] of 00:00: mouth [place] 00 every 12 Medical (twelve) Branch hours. atorvastati 2021-04 Yes [id number] 10mg Take 1 [facility] n 10 mg 1-04 tablet by [facility] of tablet 00:00: mouth at [place] 00 bedtime. Medical Branch Insulin 2021-04 Yes [id number] INJECT 40 [facility] NPH-Regular 1-04 9101 UNITS IN [facility] Human Rec 00:00: THE IN THE [place] (HUMULIN 00 MORNING Medical 70/30 U-100 AND 40 Branch KWIKPEN) UNITS IN 100 unit/mL IN THE (70-30) EVENING injection insulin 2021-04 Yes [id number] 10U inject 10 [facility] lispro 1-04 9101 Units [facility] (HUMALOG 00:00: [place] 00 skin in Medical INSULIN) the Branch 100 unit/mL morning pen and 10 injector Units at noon and 10 Units in the evening. inject before meals. ondansetron 2021-04 Yes [id number] 4mg Take 1 [facility] 4 mg tablet 1-04 tablet by [facility]y of 00:00: mouth [place] 00 every 12 Medical (twelve) Branch hours. atorvastati 2021-04 Yes [id number] 10mg Take 1 [facility] n 10 mg 1-04 tablet by [facility] of tablet 00:00: mouth at [place] 00 bedtime. Medical Branch Insulin 2021-04 Yes [id number] INJECT 40 [facility] NPH-Regular 1-04 9101 UNITS IN [facility] Human Rec 00:00: THE IN THE [place] (HUMULIN 00 MORNING Medical 70/30 U-100 AND 40 Branch KWIKPEN) UNITS IN 100 unit/mL IN THE (70-30) EVENING injection insulin 2021-04 Yes [id number] 10U inject 10 [facility] lispro 1-04 9101 Units [facility] (HUMALOG 00:00: [place] 00 skin in Medical INSULIN) the Branch 100 unit/mL morning pen and 10 injector Units at noon and 10 Units in the evening. inject before meals. ondansetron 2021-04 Yes [id number] 4mg Take 1 [facility] 4 mg tablet 1-04 tablet by [facility] of 00:00: mouth [place] 00 every 12 Medical (twelve) Branch hours. atorvastati 2021-04 Yes [id number] 10mg Take 1 [facility] n 10 mg 1-04 tablet by [facility] of tablet 00:00: mouth at [place] 00 bedtime. Medical Branch Insulin 2021-04 Yes [id number] INJECT 40 [facility] NPH-Regular 1-04 9101 UNITS IN [facility] Human Rec 00:00: THE IN THE [place] (HUMULIN 00 MORNING Medical 70/30 U-100 AND 40 Branch KWIKPEN) UNITS IN 100 unit/mL IN THE (70-30) EVENING injection insulin 2021-04 Yes [id number] 10U inject 10 [facility] lispro 1-04 9101 Units [facility] (HUMALOG 00:00: [place] 00 skin in Medical INSULIN) the Branch 100 unit/mL morning pen and 10 injector Units at noon and 10 Units in the evening. inject before meals. ondansetron 2021-04 Yes [id number] 4mg Take 1 [facility] 4 mg tablet 1-04 tablet by [facility] of 00:00: mouth [place] 00 every 12 Medical (twelve) Branch hours. atorvastati 2021-04 Yes [id number] 10mg Take 1 [facility] n 10 mg 1-04 tablet by [facility] of tablet 00:00: mouth at [place] 00 bedtime. Medical Branch Insulin 2021-04 Yes [id number] INJECT 40 [facility] NPH-Regular 1-04 9101 UNITS IN [facility] Human Rec 00:00: THE IN THE [place] (HUMULIN 00 MORNING Medical 70/30 U-100 AND 40 Branch KWIKPEN) UNITS IN 100 unit/mL IN THE (70-30) EVENING injection insulin 2021-04 Yes [id number] 10U inject 10 [facility] lispro 1-04 9101 Units [facility] of (HUMALOG 00:00: [place] 00 skin in Medical INSULIN) the Branch 100 unit/mL morning pen and 10 injector Units at noon and 10 Units in the evening. inject before meals. ondansetron 2021-04 Yes [id number] 4mg Take 1 [facility] 4 mg tablet 1-04 tablet by [facility] of 00:00: mouth [place] 00 every 12 Medical (twelve) Branch hours. atorvastati 2021-04 Yes [id number] 10mg Take 1 [facility] n 10 mg 1-04 tablet by [facility] of tablet 00:00: mouth at [place] 00 bedtime. Medical Branch Insulin 2021-04 Yes [id number] INJECT 40 [facility] NPH-Regular 1-04 9101 UNITS IN [facility] Human Rec 00:00: THE IN THE [place] (HUMULIN 00 MORNING Medical 70/30 U-100 AND 40 Branch KWIKPEN) UNITS IN 100 unit/mL IN THE (70-30) EVENING injection insulin 2021-04 Yes [id number] 10U inject 10 [facility] lispro 1-04 9101 Units [facility] of (HUMALOG 00:00: [place] 00 skin in Medical INSULIN) the Branch 100 unit/mL morning pen and 10 injector Units at noon and 10 Units in the evening. inject before meals. ondansetron 2021-04 Yes [id number] 4mg Take 1 [facility] 4 mg tablet 1-04 tablet by [facility] of 00:00: mouth [place] 00 every 12 Medical (twelve) Branch hours. atorvastati 2021-04 Yes [id number] 10mg Take 1 [facility] n 10 mg 1-04 tablet by [facility] of tablet 00:00: mouth at [place] 00 bedtime. Medical Branch Insulin 2021-04 Yes [id number] INJECT 40 [facility] NPH-Regular 1-04 9101 UNITS IN [facility] Human Rec 00:00: THE IN THE [place] (HUMULIN 00 MORNING Medical 70/30 U-100 AND 40 Branch KWIKPEN) UNITS IN 100 unit/mL IN THE (70-30) EVENING injection insulin 2021-04 Yes [id number] 10U inject 10 [facility] lispro 1-04 9101 Units [facility] of (HUMALOG 00:00: [place] 00 skin in Medical INSULIN) the Branch 100 unit/mL morning pen and 10 injector Units at noon and 10 Units in the evening. inject before meals. ondansetron 2021-04 Yes [id number] 4mg Take 1 [facility] 4 mg tablet 1-04 tablet by [facility] of 00:00: mouth [place] 00 every 12 Medical (twelve) Branch hours. atorvastati 2021-04 Yes [id number] 10mg Take 1 [facility] n 10 mg 1-04 tablet by [facility] of tablet 00:00: mouth at [place] 00 bedtime. Medical Branch Insulin 2021-04 Yes [id number] INJECT 40 [facility] NPH-Regular 1-04 9101 UNITS IN [facility] Human Rec 00:00: THE IN THE [place] (HUMULIN 00 MORNING Medical 70/30 U-100 AND 40 Branch KWIKPEN) UNITS IN 100 unit/mL IN THE (70-30) EVENING injection insulin 2021-04 Yes [id number] 10U inject 10 [facility] lispro 1-04 9101 Units [facility] of (HUMALOG 00:00: [place] 00 skin in Medical INSULIN) the Branch 100 unit/mL morning pen and 10 injector Units at noon and 10 Units in the evening. inject before meals. ondansetron 2021-04 Yes [id number] 4mg Take 1 [facility] 4 mg tablet 1-04 tablet by [facility]y of 00:00: mouth [place] 00 every 12 Medical (twelve) Branch hours. atorvastati 2021-04 Yes [id number] 10mg Take 1 [facility] n 10 mg 1-04 tablet by [facility] of tablet 00:00: mouth at [place] 00 bedtime. Medical Branch Insulin 2021-04 Yes [id number] INJECT 40 [facility] NPH-Regular 1-04 9101 UNITS IN [facility] of Human Rec 00:00: THE IN THE [place] (HUMULIN 00 MORNING Medical 70/30 U-100 AND 40 Branch KWIKPEN) UNITS IN 100 unit/mL IN THE (70-30) EVENING injection insulin 2021-04 Yes [id number] 10U inject 10 [facility] lispro 1-04 9101 Units [facility] of (HUMALOG 00:00: [place] 00 skin in Medical INSULIN) the Branch 100 unit/mL morning pen and 10 injector Units at noon and 10 Units in the evening. inject before meals. ondansetron 2021-04 Yes [id number] 4mg Take 1 [facility] 4 mg tablet 1-04 tablet by [facility]y of 00:00: mouth [place] 00 every 12 Medical (twelve) Branch hours. atorvastati 2021-04 Yes [id number] 10mg Take 1 [facility] n 10 mg 1-04 tablet by [facility] of tablet 00:00: mouth at [place] 00 bedtime. Medical Branch Insulin 2021-04 Yes [id number] INJECT 40 [facility] NPH-Regular 1-04 9101 UNITS IN [facility] of Human Rec 00:00: THE IN THE [place] (HUMULIN 00 MORNING Medical 70/30 U-100 AND 40 Branch KWIKPEN) UNITS IN 100 unit/mL IN THE (70-30) EVENING injection insulin 2021-04 Yes [id number] 10U inject 10 [facility] lispro 1-04 9101 Units [facility] of (HUMALOG 00:00: [place] 00 skin in Medical INSULIN) the Branch 100 unit/mL morning pen and 10 injector Units at noon and 10 Units in the evening. inject before meals. ondansetron 2021-04 Yes [id number] 4mg Take 1 [facility] 4 mg tablet 1-04 tablet by [facility]y of 00:00: mouth [place] 00 every 12 Medical (twelve) Branch hours. atorvastati 2021-04 Yes [id number] 10mg Take 1 [facility] n 10 mg 1-04 tablet by [facility] of tablet 00:00: mouth at [place] 00 bedtime. Medical Branch Insulin 2021-04 Yes [id number] INJECT 40 [facility] NPH-Regular 1-04 9101 UNITS IN [facility] Human Rec 00:00: THE IN THE [place] (HUMULIN 00 MORNING Medical 70/30 U-100 AND 40 Branch KWIKPEN) UNITS IN 100 unit/mL IN THE (70-30) EVENING injection insulin 2021-04 Yes [id number] 10U inject 10 [facility] lispro 1-04 9101 Units [facility] of (HUMALOG 00:00: [place] 00 skin in Medical INSULIN) the Branch 100 unit/mL morning pen and 10 injector Units at noon and 10 Units in the evening. inject before meals. ondansetron 2021-04 Yes [id number] 4mg Take 1 [facility] 4 mg tablet 1-04 tablet by [facility]y of 00:00: mouth [place] 00 every 12 Medical (twelve) Branch hours. atorvastati 2021-04 Yes [id number] 10mg Take 1 [facility] n 10 mg 1-04 tablet by [facility]y of tablet 00:00: mouth at [place] 00 bedtime. Medical Branch Insulin 2021-04 Yes [id number] INJECT 40 [facility] NPH-Regular 1-04 9101 UNITS IN [facility] Human Rec 00:00: THE IN THE [place] (HUMULIN 00 MORNING Medical 70/30 U-100 AND 40 Branch KWIKPEN) UNITS IN 100 unit/mL IN THE (70-30) EVENING injection insulin 2021-04 Yes [id number] 10U inject 10 [facility] lispro 1-04 9101 Units [facility] of (HUMALOG 00:00: under [place] 00 skin in Medical INSULIN) the Branch 100 unit/mL morning pen and 10 injector Units at noon and 10 Units in the evening. inject before meals. ondansetron 2021-04 Yes [id number] 4mg Take 1 [facility] 4 mg tablet 1-04 tablet by [facility]y of 00:00: mouth [place] 00 every 12 Medical (twelve) Branch hours. atorvastati 2021-04 Yes [id number] 10mg Take 1 [facility] n 10 mg 1-04 tablet by [facility] of tablet 00:00: mouth at [place] 00 bedtime. Medical Branch Insulin 2021-04 Yes [id number] INJECT 40 [facility] NPH-Regular 1-04 9101 UNITS IN [facility] of Human Rec 00:00: THE IN THE [place] (HUMULIN 00 MORNING Medical 70/30 U-100 AND 40 Branch KWIKPEN) UNITS IN 100 unit/mL IN THE (70-30) EVENING injection insulin 2021-04 Yes [id number] 10U inject 10 [facility] lispro 1-04 9101 Units [facility] of (HUMALOG 00:00: [place] 00 skin in Medical INSULIN) the Branch 100 unit/mL morning pen and 10 injector Units at noon and 10 Units in the evening. inject before meals. ondansetron 2021-04 Yes [id number] 4mg Take 1 [facility] 4 mg tablet 1-04 tablet by [facility]y of 00:00: mouth [place] 00 every 12 Medical (twelve) Branch hours. atorvastati 2021-04 Yes [id number] 10mg Take 1 [facility] n 10 mg 1-04 tablet by [facility] of tablet 00:00: mouth at [place] 00 bedtime. Medical Branch Insulin 2021-04 Yes [id number] INJECT 40 [facility] NPH-Regular 1-04 9101 UNITS IN [facility] of Human Rec 00:00: THE IN THE [place] (HUMULIN 00 MORNING Medical 70/30 U-100 AND 40 Branch KWIKPEN) UNITS IN 100 unit/mL IN THE (70-30) EVENING injection insulin 2021-04 Yes [id number] 10U inject 10 [facility] lispro 1-04 9101 Units [facility] of (HUMALOG 00:00: under [place] 00 skin in Medical INSULIN) the Branch 100 unit/mL morning pen and 10 injector Units at noon and 10 Units in the evening. inject before meals. ondansetron 2021-04 Yes [id number] 4mg Take 1 [facility] 4 mg tablet 1-04 tablet by [facility] of 00:00: mouth [place] 00 every 12 Medical (twelve) Branch hours. Insulin 2021-04 Yes [id number] INJECT 40 [facility] NPH-Regular 1-04 9101 UNITS IN [facility] of Human Rec 00:00: THE IN THE [place] (HUMULIN 00 MORNING Medical 70/30 U-100 AND 40 Branch KWIKPEN) UNITS IN 100 unit/mL IN THE (70-30) EVENING injection insulin 2021-04 Yes [id number] 10U inject 10 [facility] lispro 1-04 9101 Units [facility] of (HUMALOG 00:00: under the [place] 00 skin in Medical INSULIN) the Branch 100 unit/mL morning pen and 10 injector Units at noon and 10 Units in the evening. inject before meals. ondansetron 2021-04 Yes [id number] 4mg Take 1 [facility] 4 mg tablet 1-04 tablet by [facility] of 00:00: mouth [place] 00 every 12 Medical (twelve) Branch hours. Insulin 2021-04 Yes [id number] INJECT 40 [facility] NPH-Regular 1-04 9101 UNITS IN [facility] of Human Rec 00:00: THE IN THE [place] (HUMULIN 00 MORNING Medical 70/30 U-100 AND 40 Branch KWIKPEN) UNITS IN 100 unit/mL IN THE (70-30) EVENING injection insulin 2021-04 Yes [id number] 10U inject 10 [facility] lispro 1-04 9101 Units [facility] of (HUMALOG 00:00: under the [place] 00 skin in Medical INSULIN) the Branch 100 unit/mL morning pen and 10 injector Units at noon and 10 Units in the evening. inject before meals. ondansetron 2021-04 Yes [id number] 4mg Take 1 [facility] 4 mg tablet 1-04 tablet by [facility]y of 00:00: mouth [place] 00 every 12 Medical (twelve) Branch hours. Insulin 2021-04 Yes [id number] INJECT 40 [facility] NPH-Regular 1-04 9101 UNITS IN [facility] of Human Rec 00:00: THE IN THE [place] (HUMULIN 00 MORNING Medical 70/30 U-100 AND 40 Branch KWIKPEN) UNITS IN 100 unit/mL IN THE (70-30) EVENING injection insulin 2021-04 Yes [id number] 10U inject 10 [facility] lispro 1-04 9101 Units [facility] of (HUMALOG 00:00: under the [place] 00 skin in Medical INSULIN) the Branch 100 unit/mL morning pen and 10 injector Units at noon and 10 Units in the evening. inject before meals. ondansetron 2021-04 Yes [id number] 4mg Take 1 [facility] 4 mg tablet 1-04 tablet by [facility] of 00:00: mouth [place] 00 every 12 Medical (twelve) Branch hours. Insulin 2021-04 Yes [id number] INJECT 40 [facility] NPH-Regular 1-04 9101 UNITS IN [facility] Human Rec 00:00: THE IN THE [place] (HUMULIN 00 MORNING Medical 70/30 U-100 AND 40 Branch KWIKPEN) UNITS IN 100 unit/mL IN THE (70-30) EVENING injection insulin 2021-04 Yes [id number] 10U inject 10 [facility] lispro 1-04 9101 Units [facility] of (HUMALOG 00:00: under the [place] 00 skin in Medical INSULIN) the Branch 100 unit/mL morning pen and 10 injector Units at noon and 10 Units in the evening. inject before meals. ondansetron 2021-04 Yes [id number] 4mg Take 1 [facility] 4 mg tablet 1-04 tablet by [facility]y of 00:00: mouth [place] 00 every 12 Medical (twelve) Branch hours. Insulin 2021-04 Yes [id number] INJECT 40 [facility] NPH-Regular 1-04 9101 UNITS IN [facility] Human Rec 00:00: THE IN THE [place] (HUMULIN 00 MORNING Medical 70/30 U-100 AND 40 Branch KWIKPEN) UNITS IN 100 unit/mL IN THE (70-30) EVENING injection insulin 2021-04 Yes [id number] 10U inject 10 [facility] lispro 1-04 9101 Units [facility] of (HUMALOG 00:00: under the [place] 00 skin in Medical INSULIN) the Branch 100 unit/mL morning pen and 10 injector Units at noon and 10 Units in the evening. inject before meals. ondansetron 2021-04 Yes [id number] 4mg Take 1 [facility] 4 mg tablet 1-04 tablet by [facility]y of 00:00: mouth [place] 00 every 12 Medical (twelve) Branch hours. Insulin 2021-04 Yes [id number] INJECT 40 [facility] NPH-Regular 04-28 9101 UNITS IN [facility] of Human Rec 00:00: THE IN THE [place] (HUMULIN 00 MORNING Medical 70/30 U-100 AND 40 Branch KWIKPEN) UNITS IN 100 unit/mL IN THE (70-30) EVENING injection insulin 2021-04 Yes [id number] 10U inject 10 [facility] lispro 04-28 9101 Units ity of (HUMALOG 00:00: under the [place] 00 skin in Medical INSULIN) the Branch 100 unit/mL morning pen and 10 injector Units at noon and 10 Units in the evening. inject before meals. ondansetron 2021-04 Yes [id number] 4mg Take 1 [facility] 4 mg tablet 1-04 tablet by [facility]y of 00:00: mouth [place] 00 every 12 Medical (twelve) Branch hours. atorvastati 2021-04- No [id number] 10mg Take 1 [facility] n 10 mg 04-28 06-09 tablet by ity of tablet 00:00: 00:00 mouth at [place] 00 :00 bedtime. Medical Branch Insulin 2021-04- No [id number] USE TO [facility] [place], 04-28 9101 INJECT ity of Disposable, 00:00: 00:00 INSULIN 5 [place] (BD 00 :00 TIMES Medical ULTRAFINE DAILY. Branch III MINI DX:E11.65 PEN) 31 gauge x 3/16" Ndle FUROSEMIDE 2021-04 Yes [id number] 20mg TAKE 1 [facility] 20 mg 0-12 TABLET BY ity of tablet 00:00: MOUTH [place] 00 EVERY Medical OTHER DAY Branch FUROSEMIDE 2021-04 Yes [id number] 20mg TAKE 1 [facility] 20 mg 0-12 TABLET BY ity of tablet 00:00: MOUTH [place] 00 EVERY Medical OTHER DAY Branch FUROSEMIDE 2021-04 Yes [id number] 20mg TAKE 1 [facility] 20 mg 0-12 TABLET BY ity of tablet 00:00: MOUTH [place] 00 EVERY Medical OTHER DAY Branch FUROSEMIDE 2022-1 Yes [id number] 20mg TAKE 1 [facility] 20 mg 0-12 TABLET BY ity of tablet 00:00: MOUTH [place] 00 EVERY Medical OTHER DAY Branch FUROSEMIDE 2022-1 Yes [id number] 20mg TAKE 1 [facility] 20 mg 0-12 TABLET BY ity of tablet 00:00: MOUTH [place] 00 EVERY Medical OTHER DAY Branch FUROSEMIDE 2022-1 Yes [id number] 20mg TAKE 1 [facility] 20 mg 0-12 TABLET BY ity of tablet 00:00: MOUTH [place] 00 EVERY Medical OTHER DAY Branch FUROSEMIDE 2-1 Yes [id number] 20mg TAKE 1 [facility] 20 mg 0-12 TABLET BY ity of tablet 00:00: MOUTH [place] 00 EVERY Medical OTHER DAY Branch FUROSEMIDE 2-1 Yes [id number] 20mg TAKE 1 [facility] 20 mg 0-12 TABLET BY ity of tablet 00:00: MOUTH [place] 00 EVERY Medical OTHER DAY Branch FUROSEMIDE 2022-1 Yes [id number] 20mg TAKE 1 [facility] 20 mg 0-12 TABLET BY ity of tablet 00:00: MOUTH [place] 00 EVERY Medical OTHER DAY Branch FUROSEMIDE 2-1 Yes [id number] 20mg TAKE 1 [facility] 20 mg 0-12 TABLET BY [facility]y of tablet 00:00: MOUTH [place] 00 EVERY Medical OTHER DAY Branch FUROSEMIDE 2022-1 Yes [id number] 20mg TAKE 1 [facility] 20 mg 0-12 TABLET BY ity of tablet 00:00: MOUTH [place] 00 EVERY Medical OTHER DAY Branch FUROSEMIDE 2022-1 Yes [id number] 20mg TAKE 1 [facility] 20 mg 0-12 TABLET BY ity of tablet 00:00: MOUTH [place] 00 EVERY Medical OTHER DAY Branch FUROSEMIDE 2022-1 Yes [id number] 20mg TAKE 1 [facility] 20 mg 0-12 TABLET BY ity of tablet 00:00: MOUTH [place] 00 EVERY Medical OTHER DAY Branch FUROSEMIDE 2022-1 Yes [id number] 20mg TAKE 1 [facility] 20 mg 0-12 TABLET BY ity of tablet 00:00: MOUTH [place] 00 EVERY Medical OTHER DAY Branch FUROSEMIDE 2022-1 Yes [id number] 20mg TAKE 1 [facility] 20 mg 0-12 TABLET BY ity of tablet 00:00: MOUTH [place] 00 EVERY Medical OTHER DAY Branch FUROSEMIDE 2022-1 Yes [id number] 20mg TAKE 1 [facility] 20 mg 0-12 TABLET BY ity of tablet 00:00: MOUTH [place] 00 EVERY Medical OTHER DAY Branch FUROSEMIDE 2022-1 Yes [id number] 20mg TAKE 1 [facility] 20 mg 0-12 TABLET BY ity of tablet 00:00: MOUTH [place] 00 EVERY Medical OTHER DAY Branch FUROSEMIDE 2022-1 Yes [id number] 20mg TAKE 1 [facility] 20 mg 0-12 TABLET BY [facility]y of tablet 00:00: MOUTH [place] 00 EVERY Medical OTHER DAY Branch FUROSEMIDE 2022-1 Yes [id number] 20mg TAKE 1 [facility] 20 mg 0-12 TABLET BY ity of tablet 00:00: MOUTH [place] 00 EVERY Medical OTHER DAY Branch FUROSEMIDE 2022-1 Yes [id number] 20mg TAKE 1 [facility] 20 mg 0-12 TABLET BY ity of tablet 00:00: MOUTH [place] 00 EVERY Medical OTHER DAY Branch FUROSEMIDE 2-1 Yes [id number] 20mg TAKE 1 [facility] 20 mg 0-12 TABLET BY ity of tablet 00:00: MOUTH [place] 00 EVERY Medical OTHER DAY Branch FUROSEMIDE 2022-1 Yes [id number] 20mg TAKE 1 [facility] 20 mg 0-12 TABLET BY ity of tablet 00:00: MOUTH [place] 00 EVERY Medical OTHER DAY Branch FUROSEMIDE 2-1 Yes [id number] 20mg TAKE 1 [facility] 20 mg 0-12 TABLET BY ity of tablet 00:00: MOUTH [place] 00 EVERY Medical OTHER DAY Branch FUROSEMIDE 2-1 Yes [id number] 20mg TAKE 1 [facility] 20 [facility] 0-12 TABLET BY [facility] tablet 00:00: MOUTH [place] 00 EVERY Medical OTHER DAY Branch FUROSEMIDE 2022-1 Yes [id number] 20mg TAKE 1 [facility] 20 mg 0-12 TABLET BY [facility] tablet 00:00: MOUTH [place] 00 EVERY Medical OTHER DAY Branch FUROSEMIDE 2022-1 Yes [id number] 20mg TAKE 1 [facility] 20 mg 0-12 TABLET BY [facility] tablet 00:00: MOUTH [place] 00 EVERY Medical OTHER DAY Branch FUROSEMIDE 2022-1 Yes [id number] 20mg TAKE 1 [facility] 20 mg 0-12 TABLET BY [facility] tablet 00:00: MOUTH [place] 00 EVERY Medical OTHER DAY Branch FUROSEMIDE 2022-1 Yes [id number] 20mg TAKE 1 [facility] 20 mg 0-12 TABLET BY [facility] tablet 00:00: MOUTH [place] 00 EVERY Medical OTHER DAY Branch FUROSEMIDE 2022-1 2023- No [id number] 20mg TAKE 1 [facility] 20 mg 0-12 02-10 TABLET BY [facility] tablet 00:00: 00:00 MOUTH [place] 00 :00 EVERY Medical OTHER DAY Branch TAKE 1 2021-04 No TABLET BY 0-10 MOUTH TWICE 00:00: A QUETIAPINE 2021-04 Yes [id number] TAKE 1 [facility] 300 mg 0-03 TABLET BY [facility] tablet 00:00: MOUTH TWICE A Medical DAY Branch QUETIAPINE 2021- Yes [id number] TAKE 1 [facility] 300 mg 0-03 TABLET BY [facility] tablet 00:00: MOUTH TWICE A Medical DAY Branch QUETIAPINE 2021- Yes [id number] TAKE 1 [facility] 300 mg 0-03 TABLET BY [facility] tablet 00:00: MOUTH TWICE A Medical DAY Branch QUETIAPINE 2021-04 Yes [id number] TAKE 1 [facility] 300 mg 0-03 TABLET BY [facility] tablet 00:00: MOUTH TWICE A Medical DAY Branch QUETIAPINE 2021- Yes [id number] TAKE 1 [facility] 300 mg 0-03 TABLET BY [facility] tablet 00:00: MOUTH TWICE A Medical DAY Branch QUETIAPINE 2021- Yes [id number] TAKE 1 [facility] 300 mg 0-03 TABLET BY [facility] tablet 00:00: MOUTH TWICE A Medical DAY Branch QUETIAPINE 2021- Yes [id number] TAKE 1 [facility] 300 mg 0-03 TABLET BY [facility] tablet 00:00: MOUTH TWICE A Medical DAY Branch QUETIAPINE 2021- Yes [id number] TAKE 1 [facility] 300 mg 0-03 TABLET BY [facility] tablet 00:00: MOUTH TWICE A Medical DAY Branch QUETIAPINE 2021-1 Yes [id number] TAKE 1 [facility] 300 mg 0-03 TABLET BY [facility] tablet 00:00: MOUTH TWICE A Medical DAY Branch QUETIAPINE 2-1 Yes [id number] TAKE 1 [facility] 300 mg 0-03 TABLET BY [facility] tablet 00:00: MOUTH TWICE A Medical DAY Branch QUETIAPINE 2021-1 Yes [id number] TAKE 1 [facility] 300 mg 0-03 TABLET BY [facility] tablet 00:00: MOUTH TWICE A Medical DAY Branch QUETIAPINE 2021-1 Yes [id number] TAKE 1 [facility] 300 mg 0-03 TABLET BY [facility] tablet 00:00: MOUTH TWICE A Medical DAY Branch QUETIAPINE 2022- Yes [id number] TAKE 1 [facility] 300 mg 0-03 TABLET BY [facility] tablet 00:00: MOUTH TWICE A Medical DAY Branch QUETIAPINE 2-1 Yes [id number] TAKE 1 [facility] 300 mg 0-03 TABLET BY [facility] tablet 00:00: MOUTH TWICE A Medical DAY Branch QUETIAPINE 2-1 Yes [id number] TAKE 1 [facility] 300 mg 0-03 TABLET BY [facility] tablet 00:00: MOUTH TWICE A Medical DAY Branch QUETIAPINE 2-1 Yes [id number] TAKE 1 [facility] 300 mg 0-03 TABLET BY [facility] tablet 00:00: MOUTH TWICE A Medical DAY Branch QUETIAPINE 2021- Yes [id number] TAKE 1 [facility] 300 mg 0-03 TABLET BY [facility] tablet 00:00: MOUTH TWICE A Medical DAY Branch QUETIAPINE 2-1 Yes [id number] TAKE 1 [facility] 300 mg 0-03 TABLET BY [facility] tablet 00:00: MOUTH TWICE A Medical DAY Branch QUETIAPINE 2-1 Yes [id number] TAKE 1 [facility] 300 mg 0-03 TABLET BY [facility] tablet 00:00: MOUTH TWICE A Medical DAY Branch QUETIAPINE 2-1 Yes [id number] TAKE 1 [facility] 300 mg 0-03 TABLET BY [facility] tablet 00:00: MOUTH TWICE A Medical DAY Branch QUETIAPINE 2-1 Yes [id number] TAKE 1 [facility] 300 mg 0-03 TABLET BY [facility] tablet 00:00: MOUTH TWICE A Medical DAY Branch QUETIAPINE 2022-1 Yes [id number] TAKE 1 [facility] 300 mg 0-03 TABLET BY [facility] tablet 00:00: MOUTH TWICE A Medical DAY Branch QUETIAPINE 2022-1 Yes [id number] TAKE 1 [facility] 300 mg 0-03 TABLET BY [facility] tablet 00:00: MOUTH TWICE A Medical DAY Branch QUETIAPINE 2-1 Yes [id number] TAKE 1 [facility] 300 mg 0-03 TABLET BY [facility] tablet 00:00: MOUTH TWICE A Medical DAY Branch QUETIAPINE 2-1 Yes [id number] TAKE 1 [facility] 300 mg 0-03 TABLET BY [facility] tablet 00:00: MOUTH TWICE A Medical DAY Branch QUETIAPINE 2- Yes [id number] TAKE 1 [facility] 300 mg 0-03 TABLET BY [facility] tablet 00:00: MOUTH TWICE A Medical DAY Branch QUETIAPINE 2-1 Yes [id number] TAKE 1 [facility] 300 mg 0-03 TABLET BY [facility] tablet 00:00: MOUTH TWICE A Medical DAY Branch QUETIAPINE 2021- Yes [id number] TAKE 1 [facility] 300 mg 0-03 TABLET BY [facility] tablet 00:00: MOUTH TWICE A Medical DAY Branch QUETIAPINE 2021-1 Yes [id number] TAKE 1 [facility] 300 mg 0-03 TABLET BY [facility] tablet 00:00: MOUTH TWICE A Medical DAY Branch QUETIAPINE 2021- Yes [id number] TAKE 1 [facility] 300 mg 0-03 TABLET BY [facility] tablet 00:00: MOUTH TWICE A Medical DAY Branch QUETIAPINE 2021- Yes [id number] TAKE 1 [facility] 300 mg 0-03 TABLET BY [facility] tablet 00:00: MOUTH TWICE A Medical DAY Branch QUETIAPINE 2-1 Yes [id number] TAKE 1 [facility] 300 mg 0-03 TABLET BY [facility] tablet 00:00: MOUTH TWICE A Medical DAY Branch QUETIAPINE 2-1 Yes [id number] TAKE 1 [facility] 300 mg 0-03 TABLET BY [facility] tablet 00:00: MOUTH TWICE A Medical DAY Branch QUETIAPINE 2-1 Yes [id number] TAKE 1 [facility] 300 mg 0-03 TABLET BY [facility] tablet 00:00: MOUTH TWICE A Medical DAY Branch QUETIAPINE 2-1 Yes [id number] TAKE 1 [facility] 300 mg 0-03 TABLET BY [facility] tablet 00:00: MOUTH TWICE A Medical DAY Branch QUETIAPINE 2-1 Yes [id number] TAKE 1 [facility] 300 mg 0-03 TABLET BY [facility] tablet 00:00: MOUTH TWICE A Medical DAY Branch QUETIAPINE 2-1 Yes [id number] TAKE 1 [facility] 300 mg 0-03 TABLET BY [facility] tablet 00:00: MOUTH TWICE A Medical DAY Branch QUETIAPINE 2-1 Yes [id number] TAKE 1 [facility] 300 mg 0-03 TABLET BY [facility] tablet 00:00: MOUTH TWICE A Medical DAY Branch QUETIAPINE 2- Yes [id number] TAKE 1 [facility] 300 mg 0-03 TABLET BY [facility] tablet 00:00: MOUTH TWICE A Medical DAY Branch QUETIAPINE 2-1 Yes [id number] TAKE 1 [facility] 300 mg 0-03 TABLET BY [facility] tablet 00:00: MOUTH TWICE A Medical DAY Branch QUETIAPINE 2021- Yes [id number] TAKE 1 [facility] 300 mg 0-03 TABLET BY [facility] tablet 00:00: MOUTH TWICE A Medical DAY Branch QUETIAPINE 2021-1 Yes [id number] TAKE 1 [facility] 300 mg 0-03 TABLET BY [facility] tablet 00:00: MOUTH TWICE A Medical DAY Branch QUETIAPINE 2021- Yes [id number] TAKE 1 [facility] 300 mg 0-03 TABLET BY [facility] tablet 00:00: MOUTH TWICE A Medical DAY Branch QUETIAPINE 2021- Yes [id number] TAKE 1 [facility] 300 mg 0-03 TABLET BY [facility] tablet 00:00: MOUTH TWICE A Medical DAY Branch QUETIAPINE 2-1 Yes [id number] TAKE 1 [facility] 300 mg 0-03 TABLET BY [facility] tablet 00:00: MOUTH TWICE A Medical DAY Branch QUETIAPINE 2-1 Yes [id number] TAKE 1 [facility] 300 mg 0-03 TABLET BY [facility] tablet 00:00: MOUTH TWICE A Medical DAY Branch QUETIAPINE 2-1 Yes [id number] TAKE 1 [facility] 300 mg 0-03 TABLET BY [facility] tablet 00:00: MOUTH TWICE A Medical DAY Branch QUETIAPINE 2022-1 Yes [id number] TAKE 1 [facility] 300 mg 0-03 TABLET BY [facility] tablet 00:00: MOUTH TWICE A Medical DAY Branch QUETIAPINE 2-1 Yes [id number] TAKE 1 [facility] 300 mg 0-03 TABLET BY [facility] tablet 00:00: MOUTH TWICE A Medical DAY Branch QUETIAPINE 2-1 Yes [id number] TAKE 1 [facility] 300 mg 0-03 TABLET BY [facility] tablet 00:00: MOUTH TWICE A Medical DAY Branch QUETIAPINE 2-1 Yes [id number] TAKE 1 [facility] 300 mg 0-03 TABLET BY [facility] tablet 00:00: MOUTH TWICE A Medical DAY Branch QUETIAPINE 2022- Yes [id number] TAKE 1 [facility] 300 mg 0-03 TABLET BY [facility] tablet 00:00: MOUTH TWICE A Medical DAY Branch QUETIAPINE 2-1 Yes [id number] TAKE 1 [facility] 300 mg 0-03 TABLET BY [facility] tablet 00:00: MOUTH TWICE A Medical DAY Branch QUETIAPINE 2-1 Yes [id number] TAKE 1 [facility] 300 mg 0-03 TABLET BY [facility] tablet 00:00: MOUTH TWICE A Medical DAY Branch QUETIAPINE 2-1 Yes [id number] TAKE 1 [facility] 300 mg 0-03 TABLET BY [facility] tablet 00:00: MOUTH TWICE A Medical DAY Branch QUETIAPINE 2-1 Yes [id number] TAKE 1 [facility] 300 mg 0-03 TABLET BY [facility] tablet 00:00: MOUTH TWICE A Medical DAY Branch QUETIAPINE 2021-1 Yes [id number] TAKE 1 [facility] 300 mg 0-03 TABLET BY [facility] tablet 00:00: MOUTH TWICE A Medical DAY Branch QUETIAPINE 2-1 Yes [id number] TAKE 1 [facility] 300 mg 0-03 TABLET BY [facility] tablet 00:00: MOUTH TWICE A Medical DAY Branch QUETIAPINE 2-1 Yes [id number] TAKE 1 [facility] 300 mg 0-03 TABLET BY [facility] tablet 00:00: MOUTH TWICE A Medical DAY Branch QUETIAPINE 2-1 Yes [id number] TAKE 1 [facility] 300 mg 0-03 TABLET BY [facility] tablet 00:00: MOUTH TWICE A Medical DAY Branch QUETIAPINE 2-1 Yes [id number] TAKE 1 [facility] 300 mg 0-03 TABLET BY [facility] tablet 00:00: MOUTH TWICE A Medical DAY Branch QUETIAPINE 2-1 Yes [id number] TAKE 1 [facility] 300 mg 0-03 TABLET BY [facility] tablet 00:00: MOUTH TWICE A Medical DAY Branch QUETIAPINE 2-1 Yes [id number] TAKE 1 [facility] 300 mg 0-03 TABLET BY [facility] tablet 00:00: MOUTH TWICE A Medical DAY Branch QUETIAPINE 2022-1 Yes [id number] TAKE 1 [facility] 300 mg 0-03 TABLET BY [facility] tablet 00:00: MOUTH TWICE A Medical DAY Branch QUETIAPINE 2021-04 Yes [id number] TAKE 1 [facility] 300 mg 0-03 TABLET BY [facility] tablet 00:00: MOUTH TWICE A Medical DAY Branch QUETIAPINE 2021-04 Yes [id number] TAKE 1 [facility] 300 mg 0-03 TABLET BY [facility] tablet 00:00: MOUTH TWICE A Medical DAY Branch QUETIAPINE 2021-04 Yes [id number] TAKE 1 [facility] 300 mg 0-03 TABLET BY [facility] tablet 00:00: MOUTH TWICE A Medical DAY Branch QUETIAPINE 2021-04 Yes [id number] TAKE 1 [facility] 300 mg 0-03 TABLET BY [facility] tablet 00:00: MOUTH TWICE A Medical DAY Branch TAKE 1 No TABLET BY 9 MOUTH EVERY 00:00: DAY AT 00 BEDTIME NEEDED FOR INSOMNIA ALBUTEROL Yes INHALE 1 [facility] 90 9-26 TO 2 PUFFS [facility] mcg/actuati 00:00: BY MOUTH [place] on [facility] 00 EVERY 4 TO Med ical 6 HOURS Branch NEEDED ALBUTEROL Yes INHALE 1 [facility] 90 9-26 TO 2 PUFFS [facility] of mcg/actuati 00:00: BY MOUTH [place] [facility] 00 EVERY 4 TO Med ical 6 HOURS Branch NEEDED ALBUTEROL Yes INHALE 1 [facility] 90 9-26 TO 2 PUFFS [facility] of mcg/actuati 00:00: BY MOUTH [place] [facility] 00 EVERY 4 TO Med ical 6 HOURS Branch NEEDED ALBUTEROL Yes INHALE 1 [facility] 90 9-26 TO 2 PUFFS [facility] of mcg/actuati 00:00: BY MOUTH [place] [facility] 00 EVERY 4 TO Med ical 6 HOURS Branch NEEDED ALBUTEROL Yes INHALE 1 [facility] 90 9-26 TO 2 PUFFS [facility] of mcg/actuati 00:00: BY MOUTH [place] [facility] 00 EVERY 4 TO Med ical 6 HOURS Branch NEEDED ALBUTEROL 2021-0 Yes INHALE 1 [facility] 90 9-26 TO 2 PUFFS [facility] of mcg/actuati 00:00: BY MOUTH [place] [facility] inhal[facility] 00 EVERY 4 TO Med ical 6 HOURS Branch NEEDED ALBUTEROL 2021-0 Yes INHALE 1 [facility] 90 9-26 TO 2 PUFFS [facility] of mcg/actuati 00:00: BY MOUTH [place] [facility] inhal[facility] 00 EVERY 4 TO Med ical 6 HOURS Branch NEEDED ALBUTEROL 2021-0 Yes INHALE 1 [facility] 90 9-26 TO 2 PUFFS [facility] of mcg/actuati 00:00: BY MOUTH [place] [facility] inhaler 00 EVERY 4 TO Med ical 6 HOURS Branch NEEDED ALBUTEROL 2021-0 Yes INHALE 1 [facility] 90 9-26 TO 2 PUFFS [facility] of mcg/actuati 00:00: BY MOUTH [place] [facility] inhaler 00 EVERY 4 TO Med ical 6 HOURS Branch NEEDED ALBUTEROL 2021-0 Yes INHALE 1 [facility] 90 9-26 TO 2 PUFFS [facility] of mcg/actuati 00:00: BY MOUTH [place] [facility] inhal[facility] 00 EVERY 4 TO Med ical 6 HOURS Branch NEEDED ALBUTEROL 2021-0 Yes INHALE 1 [facility] 90 9-26 TO 2 PUFFS [facility] of mcg/actuati 00:00: BY MOUTH [place] [facility] inhaler 00 EVERY 4 TO Med ical 6 HOURS Branch NEEDED ALBUTEROL 2021-0 Yes INHALE 1 [facility] 90 9-26 TO 2 PUFFS [facility] of mcg/actuati 00:00: BY MOUTH [place] [facility] inhaler 00 EVERY 4 TO Med ical 6 HOURS Branch NEEDED ALBUTEROL 2021-0 Yes INHALE 1 [facility] 90 9-26 TO 2 PUFFS [facility] of mcg/actuati 00:00: BY MOUTH [place] [facility] inhaler 00 EVERY 4 TO Med ical 6 HOURS Branch NEEDED ALBUTEROL 2021-0 Yes INHALE 1 [facility] 90 9-26 TO 2 PUFFS [facility] of mcg/actuati 00:00: BY MOUTH [place] [facility] inhaler 00 EVERY 4 TO Med ical 6 HOURS Branch NEEDED ALBUTEROL 2021-0 Yes INHALE 1 [facility] 90 9-26 TO 2 PUFFS [facility] of mcg/actuati 00:00: BY MOUTH [place] [facility] inhaler 00 EVERY 4 TO Med ical 6 HOURS Branch NEEDED ALBUTEROL 2021-0 Yes INHALE 1 [facility] 90 9-26 TO 2 PUFFS [facility] of mcg/actuati 00:00: BY MOUTH [place] [facility] inhaler 00 EVERY 4 TO Med ical 6 HOURS Branch NEEDED ALBUTEROL 2021-0 Yes INHALE 1 [facility] 90 9-26 TO 2 PUFFS [facility] of mcg/actuati 00:00: BY MOUTH [place] [facility] inhaler 00 EVERY 4 TO Med ical 6 HOURS Branch NEEDED ALBUTEROL 2021-0 Yes INHALE 1 [facility] 90 9-26 TO 2 PUFFS [facility] of mcg/actuati 00:00: BY MOUTH [place] [facility] inhaler 00 EVERY 4 TO Med ical 6 HOURS Branch NEEDED ALBUTEROL 2021-0 Yes INHALE 1 [facility] 90 9-26 TO 2 PUFFS [facility] of mcg/actuati 00:00: BY MOUTH [place] [facility] inhaler 00 EVERY 4 TO Med ical 6 HOURS Branch NEEDED ALBUTEROL 2021-0 Yes INHALE 1 [facility] 90 9-26 TO 2 PUFFS [facility] of mcg/actuati 00:00: BY MOUTH [place] [facility] inhaler 00 EVERY 4 TO Med ical 6 HOURS Branch NEEDED ALBUTEROL 2021-0 Yes INHALE 1 [facility] 90 9-26 TO 2 PUFFS [facility]y of mcg/actuati 00:00: BY MOUTH [place] [facility] inhaler 00 EVERY 4 TO Med ical 6 HOURS Branch NEEDED ALBUTEROL 2021-0 Yes INHALE 1 [facility] 90 9-26 TO 2 PUFFS [facility]y of mcg/actuati 00:00: BY MOUTH [place] [facility] inhaler 00 EVERY 4 TO Med ical 6 HOURS Branch NEEDED ALBUTEROL 2021-0 Yes INHALE 1 [facility] 90 9-26 TO 2 PUFFS [facility]y of mcg/actuati 00:00: BY MOUTH [place] [facility] inhaler 00 EVERY 4 TO Med ical 6 HOURS Branch NEEDED ALBUTEROL 2021-0 Yes INHALE 1 [facility] 90 9-26 TO 2 PUFFS [facility]y of mcg/actuati 00:00: BY MOUTH [place] [facility] inhaler 00 EVERY 4 TO Med ical 6 HOURS Branch NEEDED ALBUTEROL 2021-0 Yes INHALE 1 [facility] 90 9-26 TO 2 PUFFS [facility] of mcg/actuati 00:00: BY MOUTH [place] [facility] inhaler 00 EVERY 4 TO Med ical 6 HOURS Branch NEEDED ALBUTEROL 2021-0 Yes INHALE 1 [facility] 90 9-26 TO 2 PUFFS [facility] of mcg/actuati 00:00: BY MOUTH [place] [facility] inhaler 00 EVERY 4 TO Med ical 6 HOURS Branch NEEDED ALBUTEROL 2021-0 Yes INHALE 1 [facility] 90 9-26 TO 2 PUFFS [facility]y of mcg/actuati 00:00: BY MOUTH [place] [facility] inhaler 00 EVERY 4 TO Med ical 6 HOURS Branch NEEDED ALBUTEROL 2021-0 Yes INHALE 1 [facility] 90 9-26 TO 2 PUFFS [facility]y of mcg/actuati 00:00: BY MOUTH [place] [facility] inhaler 00 EVERY 4 TO Med ical 6 HOURS Branch NEEDED ALBUTEROL 2021-0 Yes INHALE 1 [facility] 90 9-26 TO 2 PUFFS [facility]y of mcg/actuati 00:00: BY MOUTH [place] [facility] inhaler 00 EVERY 4 TO Med ical 6 HOURS Branch NEEDED ALBUTEROL 2021-0 Yes INHALE 1 [facility] 90 9-26 TO 2 PUFFS [facility] of mcg/actuati 00:00: BY MOUTH [place] [facility] inhaler 00 EVERY 4 TO Med ical 6 HOURS Branch NEEDED ALBUTEROL 2021-0 Yes INHALE 1 [facility] 90 9-26 TO 2 PUFFS [facility] of mcg/actuati 00:00: BY MOUTH [place] [facility] inhal[facility] 00 EVERY 4 TO Med ical 6 HOURS Branch NEEDED ALBUTEROL 2021-0 Yes INHALE 1 [facility] 90 9-26 TO 2 PUFFS [facility] of mcg/actuati 00:00: BY MOUTH [place] [facility] inhaler 00 EVERY 4 TO Med ical 6 HOURS Branch NEEDED ALBUTEROL 2021-0 Yes INHALE 1 [facility] 90 9-26 TO 2 PUFFS [facility]y of mcg/actuati 00:00: BY MOUTH [place] [facility] inhaler 00 EVERY 4 TO Med ical 6 HOURS Branch NEEDED ALBUTEROL 2021-0 Yes INHALE 1 [facility] 90 9-26 TO 2 PUFFS [facility]y of mcg/actuati 00:00: BY MOUTH [place] [facility] inhaler 00 EVERY 4 TO Med ical 6 HOURS Branch NEEDED ALBUTEROL 2021-0 Yes INHALE 1 [facility] 90 9-26 TO 2 PUFFS [facility]y of mcg/actuati 00:00: BY MOUTH [place] [facility] inhaler 00 EVERY 4 TO Med ical 6 HOURS Branch NEEDED ALBUTEROL 2021-0 Yes INHALE 1 [facility] 90 9-26 TO 2 PUFFS [facility] of mcg/actuati 00:00: BY MOUTH [place] [facility] inhal[facility] 00 EVERY 4 TO Med ical 6 HOURS Branch NEEDED ALBUTEROL 2021-0 Yes INHALE 1 [facility] 90 9-26 TO 2 PUFFS [facility]y of mcg/actuati 00:00: BY MOUTH [place] [facility] inhaler 00 EVERY 4 TO Med ical 6 HOURS Branch NEEDED ALBUTEROL 2021-0 Yes INHALE 1 [facility] 90 9-26 TO 2 PUFFS [facility] of mcg/actuati 00:00: BY MOUTH [place] [facility] inhaler 00 EVERY 4 TO Med ical 6 HOURS Branch NEEDED ALBUTEROL 2021-0 Yes INHALE 1 [facility] 90 9-26 TO 2 PUFFS [facility]y of mcg/actuati 00:00: BY MOUTH [place] [facility] inhaler 00 EVERY 4 TO Med ical 6 HOURS Branch NEEDED ALBUTEROL 2021-0 Yes INHALE 1 [facility] 90 9-26 TO 2 PUFFS [facility]y of mcg/actuati 00:00: BY MOUTH [place] [facility] inhaler 00 EVERY 4 TO Med ical 6 HOURS Branch NEEDED ALBUTEROL 2021-0 Yes INHALE 1 [facility] 90 9-26 TO 2 PUFFS [facility]y of mcg/actuati 00:00: BY MOUTH [place] [facility] inhaler 00 EVERY 4 TO Med ical 6 HOURS Branch NEEDED ALBUTEROL 2021-0 Yes INHALE 1 [facility] 90 9-26 TO 2 PUFFS [facility]y of mcg/actuati 00:00: BY MOUTH [place] [facility] inhaler 00 EVERY 4 TO Med ical 6 HOURS Branch NEEDED ALBUTEROL 2021-0 Yes INHALE 1 [facility] 90 9-26 TO 2 PUFFS [facility]y of mcg/actuati 00:00: BY MOUTH [place] [facility] inhaler 00 EVERY 4 TO Med ical 6 HOURS Branch NEEDED ALBUTEROL 2-0 Yes INHALE 1 [facility] 90 9-26 TO 2 PUFFS [facility]y of mcg/actuati 00:00: BY MOUTH [place] [facility] inhaler 00 EVERY 4 TO Med ical 6 HOURS Branch NEEDED ALBUTEROL 2021-0 Yes INHALE 1 [facility] 90 9-26 TO 2 PUFFS [facility]y of mcg/actuati 00:00: BY MOUTH [place] [facility] inhaler 00 EVERY 4 TO Med ical 6 HOURS Branch NEEDED ALBUTEROL 2021-0 Yes INHALE 1 [facility] 90 9-26 TO 2 PUFFS [facility]y of mcg/actuati 00:00: BY MOUTH [place] [facility] inhaler 00 EVERY 4 TO Med ical 6 HOURS Branch NEEDED ALBUTEROL 2021-0 Yes INHALE 1 [facility] 90 9-26 TO 2 PUFFS [facility]y of mcg/actuati 00:00: BY MOUTH [place] [facility] inhaler 00 EVERY 4 TO Med ical 6 HOURS Branch NEEDED ALBUTEROL 2021-0 Yes INHALE 1 [facility] 90 9-26 TO 2 PUFFS [facility]y of mcg/actuati 00:00: BY MOUTH [place] [facility] inhaler 00 EVERY 4 TO Med ical 6 HOURS Branch NEEDED ALBUTEROL 2021-0 Yes INHALE 1 [facility] 90 9-26 TO 2 PUFFS [facility]y of mcg/actuati 00:00: BY MOUTH [place] [facility] inhaler 00 EVERY 4 TO Med ical 6 HOURS Branch NEEDED ALBUTEROL 2021-0 Yes INHALE 1 [facility] 90 9-26 TO 2 PUFFS [facility]y of mcg/actuati 00:00: BY MOUTH [place] [facility] inhaler 00 EVERY 4 TO Med ical 6 HOURS Branch NEEDED ALBUTEROL 2021-0 Yes INHALE 1 [facility] 90 9-26 TO 2 PUFFS [facility]y of mcg/actuati 00:00: BY MOUTH [place] [facility] inhaler 00 EVERY 4 TO Med ical 6 HOURS Branch NEEDED ALBUTEROL 2021-0 Yes INHALE 1 [facility] 90 9-26 TO 2 PUFFS [facility]y of mcg/actuati 00:00: BY MOUTH [place] [facility] inhaler 00 EVERY 4 TO Med ical 6 HOURS Branch NEEDED ALBUTEROL 2021-0 Yes INHALE 1 [facility] 90 9-26 TO 2 PUFFS [facility]y of mcg/actuati 00:00: BY MOUTH [place] [facility] inhaler 00 EVERY 4 TO Med ical 6 HOURS Branch NEEDED ALBUTEROL 2021-0 Yes INHALE 1 [facility] 90 9-26 TO 2 PUFFS [facility]y of mcg/actuati 00:00: BY MOUTH [place] [facility] inhaler 00 EVERY 4 TO Med ical 6 HOURS Branch NEEDED ALBUTEROL 2021-0 Yes INHALE 1 [facility] 90 9-26 TO 2 PUFFS [facility]y of mcg/actuati 00:00: BY MOUTH [place] [facility] inhaler 00 EVERY 4 TO Med ical 6 HOURS Branch NEEDED ALBUTEROL 2021-0 Yes INHALE 1 [facility] 90 9-26 TO 2 PUFFS [facility]y of mcg/actuati 00:00: BY MOUTH [place] [facility] inhaler 00 EVERY 4 TO Med ical 6 HOURS Branch NEEDED ALBUTEROL 2021-0 Yes INHALE 1 [facility] 90 9-26 TO 2 PUFFS [facility]y of mcg/actuati 00:00: BY MOUTH [place] [facility] inhaler 00 EVERY 4 TO Med ical 6 HOURS Branch NEEDED ALBUTEROL 2021-0 Yes INHALE 1 [facility] 90 9-26 TO 2 PUFFS [facility]y of mcg/actuati 00:00: BY MOUTH [place] [facility] inhaler 00 EVERY 4 TO Med ical 6 HOURS Branch NEEDED ALBUTEROL 2021-0 Yes INHALE 1 [facility] 90 9-26 TO 2 PUFFS [facility]y of mcg/actuati 00:00: BY MOUTH [place] [facility] inhaler 00 EVERY 4 TO Med ical 6 HOURS Branch NEEDED ALBUTEROL 2021-0 Yes INHALE 1 [facility] 90 9-26 TO 2 PUFFS [facility]y of mcg/actuati 00:00: BY MOUTH [place] [facility] inhaler 00 EVERY 4 TO Med ical 6 HOURS Branch NEEDED ALBUTEROL 2021-0 Yes INHALE 1 [facility] 90 9-26 TO 2 PUFFS [facility]y of mcg/actuati 00:00: BY MOUTH [place] [facility] inhaler 00 EVERY 4 TO Med ical 6 HOURS Branch NEEDED ALBUTEROL 2021-0 Yes INHALE 1 [facility] 90 9-26 TO 2 PUFFS [facility]y of mcg/actuati 00:00: BY MOUTH [place] [facility] inhaler 00 EVERY 4 TO Med ical 6 HOURS Branch NEEDED ALBUTEROL 2021-0 Yes INHALE 1 [facility] 90 9-26 TO 2 PUFFS [facility]y of mcg/actuati 00:00: BY MOUTH [place] [facility] inhaler 00 EVERY 4 TO Med ical 6 HOURS Branch NEEDED ALBUTEROL 2021-0 Yes INHALE 1 [facility] 90 9-26 TO 2 PUFFS [facility]y of mcg/actuati 00:00: BY MOUTH [place] [facility] inhaler 00 EVERY 4 TO Med ical 6 HOURS Branch NEEDED ALBUTEROL 0 Yes INHALE 1 [facility] 90 9-26 TO 2 PUFFS [facility]y of mcg/actuati 00:00: BY MOUTH [place] [facility] inhaler 00 EVERY 4 TO Med ical 6 HOURS Branch NEEDED ALBUTEROL 2021-0 Yes INHALE 1 [facility] 90 9-26 TO 2 PUFFS [facility]y of mcg/actuati 00:00: BY MOUTH [place] [facility] inhaler 00 EVERY 4 TO Med ical 6 HOURS Branch NEEDED ALBUTEROL 2021-0 Yes INHALE 1 [facility] 90 9-26 TO 2 PUFFS [facility]y of mcg/actuati 00:00: BY MOUTH [place] [facility] inhaler 00 EVERY 4 TO Med ical 6 HOURS Branch NEEDED ALBUTEROL 2021-0 Yes INHALE 1 [facility] 90 9-26 TO 2 PUFFS ity of mcg/actuati 00:00: BY MOUTH [place] [facility] inhaler 00 EVERY 4 TO Med ical 6 HOURS Branch NEEDED ALBUTEROL 2021-0 Yes INHALE 1 [facility] 90 9-26 TO 2 PUFFS [facility]y of mcg/actuati 00:00: BY MOUTH [place] [facility] inhaler 00 EVERY 4 TO Med ical 6 HOURS Branch NEEDED ALBUTEROL 2021-0 Yes INHALE 1 [facility] 90 9-26 TO 2 PUFFS ity of mcg/actuati 00:00: BY MOUTH [place] [facility] inhaler 00 EVERY 4 TO Med ical 6 HOURS Branch NEEDED zolpidem 10 2021-0 Yes [id number] 10mg Take 1 [facility] mg tablet 9-20 tablet by ity o f 00:00: mouth at [place] 00 bedtime as Medical needed for Branch Insomnia. gabapentin 0 Yes [id number] 300mg Take 1 [facility] 300 mg 9-20 capsule by [facility]y of capsule 00:00: mouth in [place] 00 the Medical morning Branch and 1 capsule in the evening. pantoprazol Yes [id number] 40mg Take 1 [facility] e 40 mg EC 9-20 tablet by ity of tablet 00:00: mouth in [place] 00 the Medical morning. Branch dicyclomine 0 Yes [id number] 20mg Take 1 [facility] 20 mg 9-20 tablet by ity of tablet 00:00: mouth in [place] 00 the Medical morning Branch and 1 tablet in the evening. zolpidem 10 2021-0 Yes [id number] 10mg Take 1 [facility] mg tablet 9-20 tablet by ity o f 00:00: mouth at [place] [address] bedtime as Medical needed for Branch Insomnia. gabapentin 2021-0 Yes [id number] 300mg Take 1 [facility] 300 mg 9-20 capsule by ity of capsule 00:00: mouth in [place] 00 the Medical morning Branch and 1 capsule in the evening. pantoprazol 2021-0 Yes [id number] 40mg Take 1 [facility] e 40 mg EC 9-20 tablet by ity of tablet 00:00: mouth in [place] 00 the Medical morning. Branch dicyclomine 2021-0 Yes [id number] 20mg Take 1 [facility] 20 mg 9-20 tablet by [facility]y of tablet 00:00: mouth in [place] the Medical morning Branch and 1 tablet in the evening. zolpidem 10 2021-0 Yes [id number] 10mg Take 1 [facility] mg tablet 9-20 tablet by ity o f 00:00: mouth at [place] [address] bedtime as Medical needed for Branch Insomnia. gabapentin 2021-0 Yes [id number] 300mg Take 1 [facility] 300 mg 9-20 capsule by ity of capsule 00:00: mouth in [place] the Medical morning Branch and 1 capsule in the evening. pantoprazol 2021-0 Yes [id number] 40mg Take 1 [facility] e 40 mg EC 9-20 tablet by ity of tablet 00:00: mouth in [place] 00 the Medical morning. Branch dicyclomine 2021-0 Yes [id number] 20mg Take 1 [facility] 20 mg 9-20 tablet by ity of tablet 00:00: mouth in [place] 00 the Medical morning Branch and 1 tablet in the evening. zolpidem 10 2021-0 Yes [id number] 10mg Take 1 [facility] mg tablet 9-20 tablet by ity o f 00:00: mouth at [place] [address] bedtime as Medical needed for Branch Insomnia. gabapentin 2021-0 Yes [id number] 300mg Take 1 [facility] 300 mg 9-20 capsule by [facility] capsule 00:00: mouth in [place] 00 the Medical morning Branch and 1 capsule in the evening. pantoprazol 2022-0 Yes [id number] 40mg Take 1 [facility] e 40 mg EC 9-20 tablet by [facility] tablet 00:00: mouth in [place] the Medical morning. Branch dicyclomine 2021-0 Yes [id number] 20mg Take 1 [facility] 20 mg 9-20 tablet by [facility] tablet 00:00: mouth in [place] 00 the Medical morning Branch and 1 tablet in the evening. zolpidem 10 2021-0 Yes [id number] 10mg Take 1 [facility] mg tablet 9-20 tablet by [facility] o f 00:00: mouth at [place] 00 bedtime as Medical needed for Branch Insomnia. gabapentin 2021-0 Yes [id number] 300mg Take 1 [facility] 300 mg 9-20 capsule by [facility] capsule 00:00: mouth in [place] 00 the Medical morning Branch and 1 capsule in the evening. pantoprazol 2021-0 Yes [id number] 40mg Take 1 [facility] e 40 mg EC 9-20 tablet by [facility] tablet 00:00: mouth in [place] the Medical morning. Branch dicyclomine 2021-0 Yes [id number] 20mg Take 1 [facility] 20 mg 9-20 tablet by [facility] tablet 00:00: mouth in [place] the Medical morning Branch and 1 tablet in the evening. zolpidem 10 2021-0 Yes [id number] 10mg Take 1 [facility] mg tablet 9-20 tablet by [facility] o f 00:00: mouth at [place] [address] bedtime as Medical needed for Branch Insomnia. gabapentin 2021-0 Yes [id number] 300mg Take 1 [facility] 300 mg 9-20 capsule by [facility] capsule 00:00: mouth in [place] the Medical morning Branch and 1 capsule in the evening. pantoprazol 2021-0 Yes [id number] 40mg Take 1 [facility] e 40 mg EC 9-20 tablet by [facility] tablet 00:00: mouth in [place] 00 the Medical morning. Branch dicyclomine 2021-0 Yes [id number] 20mg Take 1 [facility] 20 mg 9-20 tablet by [facility] tablet 00:00: mouth in [place] 00 the Medical morning Branch and 1 tablet in the evening. zolpidem 10 2021-0 Yes [id number] 10mg Take 1 [facility] tablet 9-20 tablet by [facility] f 00:00: mouth at [place] [address] bedtime as Medical needed for Branch Insomnia. gabapentin 2021-0 Yes [id number] 300mg Take 1 [facility] 300 mg 9-20 capsule by [facility] capsule 00:00: mouth in [place] 00 the Medical morning Branch and 1 capsule in the evening. pantoprazol 2021-0 Yes [id number] 40mg Take 1 [facility] e 40 mg EC 9-20 tablet by [facility] tablet 00:00: mouth in [place] 00 the Medical morning. Branch dicyclomine 2021-0 Yes [id number] 20mg Take 1 [facility] 20 mg 9-20 tablet by [facility] tablet 00:00: mouth in [place] 00 the Medical morning Branch and 1 tablet in the evening. zolpidem 10 2021-0 Yes [id number] 10mg Take 1 [facility] mg tablet 9-20 tablet by [facility] f 00:00: mouth at [place] [address] bedtime as Medical needed for Branch Insomnia. gabapentin 2021-0 Yes [id number] 300mg Take 1 [facility] 300 mg 9-20 capsule by [facility] capsule 00:00: mouth in [place] 00 the Medical morning Branch and 1 capsule in the evening. pantoprazol 2021-0 Yes [id number] 40mg Take 1 [facility] 40 mg EC 9-20 tablet by [facility] tablet 00:00: mouth in [place] 00 the Medical morning. Branch dicyclomine 2021-0 Yes [id number] 20mg Take 1 [facility] 20 mg 9-20 tablet by [facility] tablet 00:00: mouth in [place] 00 the Medical morning Branch and 1 tablet in the evening. zolpidem 10 2021-0 Yes [id number] 10mg Take 1 [facility] mg tablet 9-20 tablet by [facility] f 00:00: mouth at [place] [address] bedtime as Medical needed for Branch Insomnia. gabapentin 2021-0 Yes [id number] 300mg Take 1 [facility] 300 mg 9-20 capsule by [facility] capsule 00:00: mouth in [place] 00 the Medical morning Branch and 1 capsule in the evening. pantoprazol 2021-0 Yes [id number] 40mg Take 1 [facility] 40 mg EC 9-20 tablet by [facility] tablet 00:00: mouth in [place] 00 the Medical morning. Branch dicyclomine 2021-0 Yes [id number] 20mg Take 1 [facility] 20 mg 9-20 tablet by [facility] tablet 00:00: mouth in [place] 00 the Medical morning Branch and 1 tablet in the evening. zolpidem 10 2021-0 Yes [id number] 10mg Take 1 [facility] mg tablet 9-20 tablet by [facility] f 00:00: mouth at [place] 00 bedtime as Medical needed for Branch Insomnia. gabapentin 2021-0 Yes [id number] 300mg Take 1 [facility] 300 mg 9-20 capsule by [facility] capsule 00:00: mouth in [place] 00 the Medical morning Branch and 1 capsule in the evening. pantoprazol 2021-0 Yes [id number] 40mg Take 1 [facility] 40 mg EC 9-20 tablet by [facility] tablet 00:00: mouth in [place] 00 the Medical morning. Branch dicyclomine 2021-0 Yes [id number] 20mg Take 1 [facility] 20 mg 9-20 tablet by [facility] tablet 00:00: mouth in [place] 00 the Medical morning Branch and 1 tablet in the evening. zolpidem 10 2021-0 Yes [id number] 10mg Take 1 [facility] mg tablet 9-20 tablet by [facility] f 00:00: mouth at [place] [address] bedtime as Medical needed for Branch Insomnia. gabapentin 2021-0 Yes [id number] 300mg Take 1 [facility] 300 mg 9-20 capsule by [facility] capsule 00:00: mouth in [place] the Medical morning Branch and 1 capsule in the evening. pantoprazol 2021-0 Yes [id number] 40mg Take 1 [facility] 40 mg EC 9-20 tablet by [facility] tablet 00:00: mouth in [place] 00 the Medical morning. Branch dicyclomine 2021-0 Yes [id number] 20mg Take 1 [facility] 20 mg 9-20 tablet by [facility] tablet 00:00: mouth in [place] the Medical morning Branch and 1 tablet in the evening. zolpidem 10 2021-0 Yes [id number] 10mg Take 1 [facility] mg tablet 9-20 tablet by [facility] f 00:00: mouth at [place] [address] bedtime as Medical needed for Branch Insomnia. gabapentin 2021-0 Yes [id number] 300mg Take 1 [facility] 300 mg 9-20 capsule by [facility] capsule 00:00: mouth in [place] 00 the Medical morning Branch and 1 capsule in the evening. pantoprazol 2021-0 Yes [id number] 40mg Take 1 [facility] 40 mg EC 9-20 tablet by [facility] tablet 00:00: mouth in [place] 00 the Medical morning. Branch dicyclomine 2022-0 Yes [id number] 20mg Take 1 [facility] 20 mg 9-20 tablet by [facility] tablet 00:00: mouth in [place] 00 the Medical morning Branch and 1 tablet in the evening. zolpidem 10 2021-0 Yes [id number] 10mg Take 1 [facility] mg tablet 9-20 tablet by [facility] f 00:00: mouth at [place] [address] bedtime as Medical needed for Branch Insomnia. gabapentin 2021-0 Yes [id number] 300mg Take 1 [facility] 300 mg 9-20 capsule by [facility] capsule 00:00: mouth in [place] 00 the Medical morning Branch and 1 capsule in the evening. pantoprazol 2021-0 Yes [id number] 40mg Take 1 [facility] 40 mg EC 9-20 tablet by [facility] tablet 00:00: mouth in [place] 00 the Medical morning. Branch dicyclomine 2021-0 Yes [id number] 20mg Take 1 [facility] 20 mg 9-20 tablet by [facility] tablet 00:00: mouth in [place] 00 the Medical morning Branch and 1 tablet in the evening. zolpidem 10 0 Yes [id number] 10mg Take 1 [facility] mg tablet 9-20 tablet by [facility] f 00:00: mouth at [place] [address] bedtime as Medical needed for Branch Insomnia. gabapentin 2021-0 Yes [id number] 300mg Take 1 [facility] 300 mg 9-20 capsule by [facility] capsule 00:00: mouth in [place] 00 the Medical morning Branch and 1 capsule in the evening. pantoprazol 2021-0 Yes [id number] 40mg Take 1 [facility] e 40 mg EC 9-20 tablet by [facility] tablet 00:00: mouth in [place] 00 the Medical morning. Branch dicyclomine 2021-0 Yes [id number] 20mg Take 1 [facility] 20 mg 9-20 tablet by [facility] tablet 00:00: mouth in [place] 00 the Medical morning Branch and 1 tablet in the evening. zolpidem 10 2021-0 Yes [id number] 10mg Take 1 [facility] mg tablet 9-20 tablet by [facility] f 00:00: mouth at [place] [address] bedtime as Medical needed for Branch Insomnia. gabapentin 2021-0 Yes [id number] 300mg Take 1 [facility] 300 mg 9-20 capsule by [facility] capsule 00:00: mouth in [place] 00 the Medical morning Branch and 1 capsule in the evening. dicyclomine 2022-0 Yes [id number] 20mg Take 1 [facility] 20 mg 9-20 tablet by [facility] tablet 00:00: mouth in [place] 00 the Medical morning Branch and 1 tablet in the evening. zolpidem 10 2021-0 Yes [id number] 10mg Take 1 [facility] mg tablet 9-20 tablet by [facility] f 00:00: mouth at [place] [address] bedtime as Medical needed for Branch Insomnia. gabapentin 2021-0 Yes [id number] 300mg Take 1 [facility] 300 mg 9-20 capsule by [facility] capsule 00:00: mouth in [place] 00 the Medical morning Branch and 1 capsule in the evening. dicyclomine 2021-0 Yes [id number] 20mg Take 1 [facility] 20 mg 9-20 tablet by [facility] tablet 00:00: mouth in [place] 00 the Medical morning Branch and 1 tablet in the evening. zolpidem 10 2021-0 Yes [id number] 10mg Take 1 [facility] mg tablet 9-20 tablet by [facility] f 00:00: mouth at [place] [address] bedtime as Medical needed for Branch Insomnia. gabapentin 2021-0 Yes [id number] 300mg Take 1 [facility] 300 mg 9-20 capsule by [facility] capsule 00:00: mouth in [place] 00 the Medical morning Branch and 1 capsule in the evening. dicyclomine 2021-0 Yes [id number] 20mg Take 1 [facility] 20 mg 9-20 tablet by [facility] tablet 00:00: mouth in [place] 00 the Medical morning Branch and 1 tablet in the evening. zolpidem 10 2021-0 Yes [id number] 10mg Take 1 [facility] mg tablet 9-20 tablet by [facility] o f 00:00: mouth at [place] [address] bedtime as Medical needed for Branch Insomnia. gabapentin 2021-0 Yes [id number] 300mg Take 1 [facility] 300 mg 9-20 capsule by [facility] capsule 00:00: mouth in [place] 00 the Medical morning Branch and 1 capsule in the evening. dicyclomine 2-0 Yes [id number] 20mg Take 1 [facility] 20 mg 9-20 tablet by [facility] tablet 00:00: mouth in [place] 00 the Medical morning Branch and 1 tablet in the evening. zolpidem 10 2021-0 Yes [id number] 10mg Take 1 [facility] mg tablet 9-20 tablet by [facility] o f 00:00: mouth at [place] [address] bedtime as Medical needed for Branch Insomnia. gabapentin 2-0 Yes [id number] 300mg Take 1 [facility] 300 mg 9-20 capsule by [facility] capsule 00:00: mouth in [place] 00 the Medical morning Branch and 1 capsule in the evening. dicyclomine 2022-0 Yes [id number] 20mg Take 1 [facility] 20 mg 9-20 tablet by [facility] tablet 00:00: mouth in [place] 00 the Medical morning Branch and 1 tablet in the evening. zolpidem 10 2021-0 Yes [id number] 10mg Take 1 [facility] mg tablet 9-20 tablet by [facility] o f 00:00: mouth at [place] [address] bedtime as Medical needed for Branch Insomnia. gabapentin 2021-0 Yes [id number] 300mg Take 1 [facility] 300 mg 9-20 capsule by [facility] capsule 00:00: mouth in [place] 00 the Medical morning Branch and 1 capsule in the evening. dicyclomine 2021-0 Yes [id number] 20mg Take 1 [facility] 20 mg 9-20 tablet by [facility] tablet 00:00: mouth in [place] 00 the Medical morning Branch and 1 tablet in the evening. zolpidem 10 2021-0 Yes [id number] 10mg Take 1 [facility] mg tablet 9-20 tablet by [facility] f 00:00: mouth at [place] [address] bedtime as Medical needed for Branch Insomnia. gabapentin 2021-0 Yes [id number] 300mg Take 1 [facility] 300 mg 9-20 capsule by [facility] capsule 00:00: mouth in [place] 00 the Medical morning Branch and 1 capsule in the evening. dicyclomine 2-0 Yes [id number] 20mg Take 1 [facility] 20 mg 9-20 tablet by [facility] tablet 00:00: mouth in [place] 00 the Medical morning Branch and 1 tablet in the evening. zolpidem 10 2021-0 Yes [id number] 10mg Take 1 [facility] mg tablet 9-20 tablet by [facility] o f 00:00: mouth at [place] [address] bedtime as Medical needed for Branch Insomnia. gabapentin 2021-0 Yes [id number] 300mg Take 1 [facility] 300 mg 9-20 capsule by [facility] capsule 00:00: mouth in [place] [address] the Medical morning Branch and 1 capsule in the evening. dicyclomine 2022-0 Yes [id number] 20mg Take 1 [facility] 20 mg 9-20 tablet by [facility] tablet 00:00: mouth in [place] 00 the Medical morning Branch and 1 tablet in the evening. zolpidem 10 2021-0 Yes [id number] 10mg Take 1 [facility] mg tablet 9-20 tablet by [facility] o f 00:00: mouth at [place] [address] bedtime as Medical needed for Branch Insomnia. gabapentin 2021-0 Yes [id number] 300mg Take 1 [facility] 300 mg 9-20 capsule by [facility] capsule 00:00: mouth in [place] 00 the Medical morning Branch and 1 capsule in the evening. dicyclomine 2021-0 Yes [id number] 20mg Take 1 [facility] 20 mg 9-20 tablet by [facility] tablet 00:00: mouth in [place] 00 the Medical morning Branch and 1 tablet in the evening. zolpidem 10 2021-0 Yes [id number] 10mg Take 1 [facility] mg tablet 9-20 tablet by [facility] o f 00:00: mouth at [place] [address] bedtime as Medical needed for Branch Insomnia. gabapentin 2021-0 Yes [id number] 300mg Take 1 [facility] 300 mg 9-20 capsule by [facility] capsule 00:00: mouth in [place] [address] the Medical morning Branch and 1 capsule in the evening. dicyclomine 2021-0 Yes [id number] 20mg Take 1 [facility] 20 mg 9-20 tablet by [facility] tablet 00:00: mouth in [place] 00 the Medical morning Branch and 1 tablet in the evening. zolpidem 10 2021-0 Yes [id number] 10mg Take 1 [facility] mg tablet 9-20 tablet by [facility] o f 00:00: mouth at [place] [address] bedtime as Medical needed for Branch Insomnia. gabapentin 2021-0 Yes [id number] 300mg Take 1 [facility] 300 mg 9-20 capsule by [facility] capsule 00:00: mouth in [place] 00 the Medical morning Branch and 1 capsule in the evening. dicyclomine 2-0 Yes [id number] 20mg Take 1 [facility] 20 mg 9-20 tablet by [facility] tablet 00:00: mouth in [place] [address] the Medical morning Branch and 1 tablet in the evening. zolpidem 10 2021-0 Yes [id number] 10mg Take 1 [facility] mg tablet 9-20 tablet by [facility] o f 00:00: mouth at [place] [address] bedtime as Medical needed for Branch Insomnia. gabapentin 2021-0 Yes [id number] 300mg Take 1 [facility] 300 mg 9-20 capsule by [facility] capsule 00:00: mouth in [place] 00 the Medical morning Branch and 1 capsule in the evening. dicyclomine 2-0 Yes [id number] 20mg Take 1 [facility] 20 mg 9-20 tablet by [facility] tablet 00:00: mouth in [place] 00 the Medical morning Branch and 1 tablet in the evening. zolpidem 10 2021-0 Yes [id number] 10mg Take 1 [facility] mg tablet 9-20 tablet by [facility] o f 00:00: mouth at [place] [address] bedtime as Medical needed for Branch Insomnia. gabapentin 2021-0 Yes [id number] 300mg Take 1 [facility] 300 mg 9-20 capsule by [facility] capsule 00:00: mouth in [place] 00 the Medical morning Branch and 1 capsule in the evening. dicyclomine 2021-0 Yes [id number] 20mg Take 1 [facility] 20 mg 9-20 tablet by [facility] tablet 00:00: mouth in [place] 00 the Medical morning Branch and 1 tablet in the evening. zolpidem 10 2021-0 Yes [id number] 10mg Take 1 [facility] mg tablet 9-20 tablet by [facility] o f 00:00: mouth at [place] [address] bedtime as Medical needed for Branch Insomnia. gabapentin 2021-0 Yes [id number] 300mg Take 1 [facility] 300 mg 9-20 capsule by [facility] capsule 00:00: mouth in [place] 00 the Medical morning Branch and 1 capsule in the evening. dicyclomine 2021-0 Yes [id number] 20mg Take 1 [facility] 20 mg 9-20 tablet by [facility] tablet 00:00: mouth in [place] 00 the Medical morning Branch and 1 tablet in the evening. zolpidem 10 2021-0 Yes [id number] 10mg Take 1 [facility] mg tablet 9-20 tablet by [facility] o f 00:00: mouth at [place] [address] bedtime as Medical needed for Branch Insomnia. gabapentin 2021-0 Yes [id number] 300mg Take 1 [facility] 300 mg 9-20 capsule by [facility] capsule 00:00: mouth in [place] 00 the Medical morning Branch and 1 capsule in the evening. dicyclomine 2-0 Yes [id number] 20mg Take 1 [facility] 20 mg 9-20 tablet by [facility] tablet 00:00: mouth in [place] 00 the Medical morning Branch and 1 tablet in the evening. zolpidem 10 2021-0 Yes [id number] 10mg Take 1 [facility] mg tablet 9-20 tablet by [facility] o f 00:00: mouth at [place] [address] bedtime as Medical needed for Branch Insomnia. gabapentin 2021-0 Yes [id number] 300mg Take 1 [facility] 300 mg 9-20 capsule by [facility] capsule 00:00: mouth in [place] 00 the Medical morning Branch and 1 capsule in the evening. dicyclomine 2021-0 Yes [id number] 20mg Take 1 [facility] 20 mg 9-20 tablet by [facility] tablet 00:00: mouth in [place] 00 the Medical morning Branch and 1 tablet in the evening. zolpidem 10 2021-0 Yes [id number] 10mg Take 1 [facility] mg tablet 9-20 tablet by [facility] o f 00:00: mouth at [place] [address] bedtime as Medical needed for Branch Insomnia. gabapentin 2021-0 Yes [id number] 300mg Take 1 [facility] 300 mg 9-20 capsule by [facility] capsule 00:00: mouth in [place] 00 the Medical morning Branch and 1 capsule in the evening. dicyclomine 2021-0 Yes [id number] 20mg Take 1 [facility] 20 mg 9-20 tablet by [facility] tablet 00:00: mouth in [place] [address] the Medical morning Branch and 1 tablet in the evening. zolpidem 10 2021-0 Yes [id number] 10mg Take 1 [facility] mg tablet 9-20 tablet by [facility] o f 00:00: mouth at [place] [address] bedtime as Medical needed for Branch Insomnia. gabapentin 2021-0 Yes [id number] 300mg Take 1 [facility] 300 mg 9-20 capsule by [facility] capsule 00:00: mouth in [place] 00 the Medical morning Branch and 1 capsule in the evening. dicyclomine 2-0 Yes [id number] 20mg Take 1 [facility] 20 mg 9-20 tablet by [facility] tablet 00:00: mouth in [place] 00 the Medical morning Branch and 1 tablet in the evening. zolpidem 10 2021-0 Yes [id number] 10mg Take 1 [facility] mg tablet 9-20 tablet by [facility] o f 00:00: mouth at [place] [address] bedtime as Medical needed for Branch Insomnia. gabapentin 2021-0 Yes [id number] 300mg Take 1 [facility] 300 mg 9-20 capsule by [facility] capsule 00:00: mouth in [place] [address] the Medical morning Branch and 1 capsule in the evening. dicyclomine 2022-0 Yes [id number] 20mg Take 1 [facility] 20 mg 9-20 tablet by [facility] tablet 00:00: mouth in [place] 00 the Medical morning Branch and 1 tablet in the evening. zolpidem 10 2021-0 Yes [id number] 10mg Take 1 [facility] mg tablet 9-20 tablet by [facility] o f 00:00: mouth at [place] [address] bedtime as Medical needed for Branch Insomnia. gabapentin 2021-0 Yes [id number] 300mg Take 1 [facility] 300 mg 9-20 capsule by [facility] capsule 00:00: mouth in [place] 00 the Medical morning Branch and 1 capsule in the evening. dicyclomine 2021-0 Yes [id number] 20mg Take 1 [facility] 20 mg 9-20 tablet by [facility] tablet 00:00: mouth in [place] 00 the Medical morning Branch and 1 tablet in the evening. zolpidem 10 2021-0 Yes [id number] 10mg Take 1 [facility] mg tablet 9-20 tablet by [facility] o f 00:00: mouth at [place] [address] bedtime as Medical needed for Branch Insomnia. gabapentin 2021-0 Yes [id number] 300mg Take 1 [facility] 300 mg 9-20 capsule by [facility] capsule 00:00: mouth in [place] 00 the Medical morning Branch and 1 capsule in the evening. dicyclomine 2021-0 Yes [id number] 20mg Take 1 [facility] 20 mg 9-20 tablet by [facility] tablet 00:00: mouth in [place] 00 the Medical morning Branch and 1 tablet in the evening. zolpidem 10 2021-0 Yes [id number] 10mg Take 1 [facility] mg tablet 9-20 tablet by [facility] o f 00:00: mouth at [place] [address] bedtime as Medical needed for Branch Insomnia. gabapentin 2021-0 Yes [id number] 300mg Take 1 [facility] 300 mg 9-20 capsule by [facility] capsule 00:00: mouth in [place] 00 the Medical morning Branch and 1 capsule in the evening. dicyclomine 2-0 Yes [id number] 20mg Take 1 [facility] 20 mg 9-20 tablet by [facility] tablet 00:00: mouth in [place] 00 the Medical morning Branch and 1 tablet in the evening. zolpidem 10 2021-0 Yes [id number] 10mg Take 1 [facility] mg tablet 9-20 tablet by [facility] o f 00:00: mouth at [place] 00 bedtime as Medical needed for Branch Insomnia. gabapentin 2021-0 Yes [id number] 300mg Take 1 [facility] 300 mg 9-20 capsule by [facility] capsule 00:00: mouth in [place] 00 the Medical morning Branch and 1 capsule in the evening. zolpidem 10 2021-0 Yes [id number] 10mg Take 1 [facility] mg tablet 9-20 tablet by [facility] o f 00:00: mouth at [place] [address] bedtime as Medical needed for Branch Insomnia. gabapentin 2021-0 Yes [id number] 300mg Take 1 [facility] 300 mg 9-20 capsule by [facility] capsule 00:00: mouth in [place] 00 the Medical morning Branch and 1 capsule in the evening. zolpidem 10 2021-0 Yes [id number] 10mg Take 1 [facility] mg tablet 9-20 tablet by [facility] o f 00:00: mouth at [place] [address] bedtime as Medical needed for Branch Insomnia. gabapentin 2021-0 Yes [id number] 300mg Take 1 [facility] 300 mg 9-20 capsule by [facility] capsule 00:00: mouth in [place] 00 the Medical morning Branch and 1 capsule in the evening. zolpidem 10 2021-0 Yes [id number] 10mg Take 1 [facility] mg tablet 9-20 tablet by [facility] o f 00:00: mouth at [place] [address] bedtime as Medical needed for Branch Insomnia. gabapentin 2021-0 Yes [id number] 300mg Take 1 [facility] 300 mg 9-20 capsule by [facility] capsule 00:00: mouth in [place] the Medical morning Branch and 1 capsule in the evening. zolpidem 10 2021-0 Yes [id number] 10mg Take 1 [facility] mg tablet 9-20 tablet by [facility] o f 00:00: mouth at [place] [address] bedtime as Medical needed for Branch Insomnia. gabapentin 2021-0 Yes [id number] 300mg Take 1 [facility] 300 mg 9-20 capsule by [facility] capsule 00:00: mouth in [place] 00 the Medical morning Branch and 1 capsule in the evening. zolpidem 10 2021-0 Yes [id number] 10mg Take 1 [facility] mg tablet 9-20 tablet by [facility] o f 00:00: mouth at [place] [address] bedtime as Medical needed for Branch Insomnia. gabapentin 2021-0 Yes [id number] 300mg Take 1 [facility] 300 mg 9-20 capsule by [facility] capsule 00:00: mouth in [place] 00 the Medical morning Branch and 1 capsule in the evening. zolpidem 10 2-0 Yes [id number] 10mg Take 1 [facility] mg tablet 9-20 tablet by [facility] o f 00:00: mouth at [place] [address] bedtime as Medical needed for Branch Insomnia. gabapentin 2022-0 Yes [id number] 300mg Take 1 [facility] 300 mg 9-20 capsule by [facility] capsule 00:00: mouth in [place] 00 the Medical morning Branch and 1 capsule in the evening. zolpidem 10 2-0 Yes [id number] 10mg Take 1 [facility] mg tablet 9-20 tablet by [facility] o f 00:00: mouth at [place] [address] bedtime as Medical needed for Branch Insomnia. gabapentin 2-0 Yes [id number] 300mg Take 1 [facility] 300 mg 9-20 capsule by [facility] capsule 00:00: mouth in [place] [address] the Medical morning Branch and 1 capsule in the evening. zolpidem 10 2-0 Yes [id number] 10mg Take 1 [facility] mg tablet 9-20 tablet by [facility] o f 00:00: mouth at [place] [address] bedtime as Medical needed for Branch Insomnia. gabapentin 2022-0 Yes [id number] 300mg Take 1 [facility] 300 mg 9-20 capsule by [facility] capsule 00:00: mouth in [place] the Medical morning Branch and 1 capsule in the evening. gabapentin 2022-0 Yes [id number] 300mg Take 1 [facility] 300 mg 9-20 capsule by [facility] of capsule 00:00: mouth in [place] [address] the Medical morning Branch and 1 capsule in the evening. gabapentin 2022-0 Yes [id number] 300mg Take 1 [facility] 300 mg 9-20 capsule by [facility] capsule 00:00: mouth in [place] 00 the Medical morning Branch and 1 capsule in the evening. gabapentin 2022-0 Yes [id number] 300mg Take 1 [facility] 300 mg 9-20 capsule by [facility] capsule 00:00: mouth in [place] 00 the Medical morning Branch and 1 capsule in the evening. gabapentin 2022-0 Yes [id number] 300mg Take 1 [facility] 300 mg 9-20 capsule by [facility] capsule 00:00: mouth in [place] [address] the Medical morning Branch and 1 capsule in the evening. gabapentin 2022-0 Yes [id number] 300mg Take 1 [facility] 300 mg 9-20 capsule by [facility] of capsule 00:00: mouth in [place] [address] the Medical morning Branch and 1 capsule in the evening. gabapentin 2022-0 Yes [id number] 300mg Take 1 [facility] 300 mg 9-20 capsule by [facility] of capsule 00:00: mouth in [place] [address] the [facility] morning [place] and 1 capsule in the evening. gabapentin 2022-0 Yes [id number] 300mg Take 1 [facility] 300 mg 9-20 capsule by [facility] of capsule 00:00: mouth in [place] [address] the [facility] morning [place] and 1 capsule in the evening. gabapentin 2022-0 Yes [id number] 300mg Take 1 [facility] 300 mg 9-20 capsule by [facility] of capsule 00:00: mouth in [place] [address] the [facility] morning [place] and 1 capsule in the evening. gabapentin 2022-0 Yes [id number] 300mg Take 1 [facility] 300 mg 9-20 capsule by [facility] of capsule 00:00: mouth in [place] [address] the [facility] morning [place] and 1 capsule in the evening. gabapentin 2022-0 Yes [id number] 300mg Take 1 [facility] 300 mg 9-20 capsule by [facility] of capsule 00:00: mouth in [place] [address] the [facility] morning [place] and 1 capsule in the evening. gabapentin 2022-0 Yes [id number] 300mg Take 1 [facility] 300 mg 9-20 capsule by [facility] of capsule 00:00: mouth in [place] [address] the [facility] morning [place] and 1 capsule in the evening. gabapentin 2022-0 Yes [id number] 300mg Take 1 [facility] 300 mg 9-20 capsule by [facility] of capsule 00:00: mouth in [place] [address] the [facility] and 1 capsule in the evening. gabapentin 2-0 Yes [id number] 300mg Take 1 [facility] 300 mg 9-20 capsule by [facility] of capsule 00:00: mouth in [place] [address] the [facility] and 1 capsule in the evening. gabapentin 2021-0 2022- No [id number] 300mg Take 1 [facility] 300 mg 9-20 05-10 capsule by [facility] capsule 00:00: 00:00 mouth in [place] 00 :00 the [facility] and 1 capsule in the evening. zolpidem 10 2021-2022- No [id number] 10mg Take 1 [facility] mg tablet 9-20 04-11 tablet by [facility] of 00:00: 00:00 mouth at [place] 00 :00 bedtime as Medical needed for Branch Insomnia. dicyclomine 2021-2022- No [id number] 20mg Take 1 [facility] 20 mg 9-20 02-10 tablet by [facility] tablet 00:00: 00:00 mouth in [place] 00 :00 the Medical morning Branch and 1 tablet in the evening. pantoprazol 2021-0 2021- No [id number] 40mg Take 1 [facility] e 40 mg EC 9-20 11-17 tablet by [facility] tablet 00:00: 00:00 mouth in [place] 00 :00 the Medical morning. Branch FUROSEMIDE 2021-0 Yes [id number] 20mg TAKE 1 [facility] 20 mg 9-19 TABLET BY [facility] tablet 00:00: MOUTH [place] 00 EVERY Medical OTHER DAY Branch ATORVASTATI 2021-0 Yes [id number] TAKE 1 [facility] N 10 mg 9-19 TABLET BY [facility] of tablet 00:00: MOUTH [place] 00 EVERYDAY Medical AT BEDTIME Branch FUROSEMIDE 2021-0 Yes [id number] 20mg TAKE 1 [facility] 20 mg 9-19 TABLET BY [facility] of tablet 00:00: MOUTH [place] 00 EVERY Medical OTHER DAY Branch ATORVASTATI 2021-0 Yes [id number] TAKE 1 [facility] N 10 mg 9-19 TABLET BY [facility] of tablet 00:00: MOUTH [place] 00 EVERYDAY Medical AT BEDTIME Branch FUROSEMIDE 2021-0 Yes [id number] 20mg TAKE 1 [facility] 20 mg 9-19 TABLET BY [facility] of tablet 00:00: MOUTH [place] 00 EVERY Medical OTHER DAY Branch ATORVASTATI 2021-0 Yes [id number] TAKE 1 [facility] N 10 mg 9-19 TABLET BY [facility] of tablet 00:00: MOUTH [place] 00 EVERYDAY Medical AT BEDTIME Branch FUROSEMIDE 2021-0 Yes [id number] 20mg TAKE 1 [facility] 20 mg 9-19 TABLET BY [facility] of tablet 00:00: MOUTH [place] 00 EVERY Medical OTHER DAY Branch ATORVASTATI 2021-0 Yes [id number] TAKE 1 [facility] N 10 mg 9-19 TABLET BY [facility] of tablet 00:00: MOUTH [place] 00 EVERYDAY Medical AT BEDTIME Branch FUROSEMIDE 2021-0 Yes [id number] 20mg TAKE 1 [facility] 20 mg 9-19 TABLET BY [facility] tablet 00:00: MOUTH [place] 00 EVERY Medical OTHER DAY Branch ATORVASTATI 2021-0 Yes [id number] TAKE 1 [facility] N 10 mg 9-19 TABLET BY [facility] tablet 00:00: MOUTH [place] 00 EVERYDAY Medical AT BEDTIME Branch FUROSEMIDE 2021-0 Yes [id number] 20mg TAKE 1 [facility] 20 mg 9-19 TABLET BY [facility] tablet 00:00: MOUTH [place] 00 EVERY Medical OTHER DAY Branch ATORVASTATI 2021-0 Yes [id number] TAKE 1 [facility] N 10 mg 9-19 TABLET BY [facility] tablet 00:00: MOUTH [place] 00 EVERYDAY Medical AT BEDTIME Branch FUROSEMIDE 2-0 Yes [id number] 20mg TAKE 1 [facility] 20 mg 9-19 TABLET BY [facility] tablet 00:00: MOUTH [place] 00 EVERY Medical OTHER DAY Branch ATORVASTATI 2021-0 Yes [id number] TAKE 1 [facility] N 10 mg 9-19 TABLET BY [facility] tablet 00:00: MOUTH [place] 00 EVERYDAY Medical AT BEDTIME Branch FUROSEMIDE 2021-0 Yes [id number] 20mg TAKE 1 [facility] 20 mg 9-19 TABLET BY [facility] tablet 00:00: MOUTH [place] 00 EVERY Medical OTHER DAY Branch ATORVASTATI 2021-0 Yes [id number] TAKE 1 [facility] N 10 mg 9-19 TABLET BY [facility] tablet 00:00: MOUTH [place] 00 EVERYDAY Medical AT BEDTIME Branch FUROSEMIDE 2021-0 Yes [id number] 20mg TAKE 1 [facility] 20 mg 9-19 TABLET BY [facility] tablet 00:00: MOUTH [place] 00 EVERY Medical OTHER DAY Branch ATORVASTATI 2021-0 Yes [id number] TAKE 1 [facility] N 10 mg 9-19 TABLET BY [facility] tablet 00:00: MOUTH [place] 00 EVERYDAY Medical AT BEDTIME Branch FUROSEMIDE 2021-0 Yes [id number] 20mg TAKE 1 [facility] 20 mg 9-19 TABLET BY [facility] tablet 00:00: MOUTH [place] 00 EVERY Medical OTHER DAY Branch ATORVASTATI 2021-0 Yes [id number] TAKE 1 [facility] N 10 mg 9-19 TABLET BY [facility] tablet 00:00: MOUTH [place] 00 EVERYDAY Medical AT BEDTIME Branch ATORVASTATI 2021-0 Yes [id number] TAKE 1 [facility] N 10 mg 9-19 TABLET BY [facility] tablet 00:00: MOUTH [place] 00 EVERYDAY Medical AT BEDTIME Branch ATORVASTATI 2021-0 2021- No [id number] TAKE 1 [facility] N 10 mg 9-19 11-04 TABLET BY [facility] tablet 00:00: 00:00 MOUTH [place] 00 :00 EVERYDAY Medical AT BEDTIME Branch ATORVASTATI 2021-0 2021- No [id number] TAKE 1 [facility] N 10 mg 9-19 11-04 TABLET BY [facility] tablet 00:00: 00:00 MOUTH [place] 00 :00 EVERYDAY Medical AT BEDTIME Branch FUROSEMIDE 2021-0 2021- No [id number] 20mg TAKE 1 [facility] 20 mg 9-19 10-12 TABLET BY [facility] tablet 00:00: 00:00 MOUTH [place] 00 :00 EVERY Medical OTHER DAY Branch DEXLANSOPRA 2021-0 Yes [id number] TAKE 1 [facility] ZOLE 60 mg 9-07 CAPSULE BY [facility] capsule 00:00: MOUTH [place] 00 EVERY DAY Medical Branch DEXLANSOPRA 2021-0 Yes [id number] TAKE 1 [facility] ZOLE 60 mg 9-07 CAPSULE BY [facility] capsule 00:00: MOUTH [place] 00 EVERY DAY Medical Branch DEXLANSOPRA 2021-0 Yes [id number] TAKE 1 [facility] ZOLE 60 mg 9-07 CAPSULE BY [facility] of capsule 00:00: MOUTH [place] 00 EVERY DAY Medical Branch DEXLANSOPRA 2021-0 Yes [id number] TAKE 1 [facility] ZOLE 60 mg 9-07 CAPSULE BY [facility] of capsule 00:00: MOUTH [place] 00 EVERY DAY Medical Branch DEXLANSOPRA 2021-0 2021- No [id number] TAKE 1 [facility] ZOLE 60 mg 9-07 09-20 CAPSULE BY it y of capsule 00:00: 00:00 MOUTH [place] 00 :00 EVERY DAY Medical Branch DEXLANSOPRA 2021-0 2021- No [id number] TAKE 1 [facility] ZOLE 60 mg 9-07 09-20 CAPSULE BY it y of capsule 00:00: 00:00 MOUTH [place] 00 :00 EVERY DAY Medical Branch TAKE 1 2021-0 No 10 TABLET BY 8-25 MOUTH EVERY 00:00: DAY AT 00 BEDTIME NEEDED FOR INSOMNIA gabapentin 2021-0 2021- No 300mg Take 300 [facility] 300 mg 8-25 09-20 mg by [facility] capsule 00:00: 00:00 mouth in [place] 00 :00 the Medical morning Branch and 300 mg in the evening. gabapentin 2021-0 2021- No 300mg Take 300 [facility] 300 mg 8-25 09-20 mg by it[facility] of capsule 00:00: 00:00 mouth in [place] 00 :00 the Medical morning Branch and 300 mg in the evening. FUROSEMIDE 2021-0 Yes [id number] 20mg TAKE 1 [facility] 20 mg 8-22 TABLET BY [facility] tablet 00:00: MOUTH [place] 00 EVERY Medical OTHER DAY Branch FUROSEMIDE 2021-0 Yes [id number] 20mg TAKE 1 [facility] 20 mg 8-22 TABLET BY [facility] tablet 00:00: MOUTH [place] 00 EVERY Medical OTHER DAY Branch FUROSEMIDE 2021-0 Yes [id number] 20mg TAKE 1 [facility] 20 mg 8-22 TABLET BY [facility] tablet 00:00: MOUTH [place] EVERY Medical OTHER DAY Branch FUROSEMIDE 2021-0 Yes [id number] 20mg TAKE 1 [facility] 20 mg 8-22 TABLET BY [facility] tablet 00:00: MOUTH [place] EVERY Medical OTHER DAY Branch FUROSEMIDE 2021-0 2022- No [id number] 20mg TAKE 1 [facility] 20 mg 8-22 09-19 TABLET BY [facility] tablet 00:00: 00:00 MOUTH [place] 00 :00 EVERY Medical OTHER DAY Branch TAKE 1 2021-0 No 250 TABLET BY 8 MOUTH TWICE 00:00: A DAY 00 &lt 2021-0 No 10 8-10 00:00: 00 &lt 2021-0 No 8-10 00:00: 00 &lt 2021-0 No 60 8-04 00:00: 00 TAKE 1 2021-0 No 300 CAPSULE BY 11-24 MOUTH TWICE 00:00: A DAY 00 &lt 2021-0 No 300 7 00:00: 00 TAKE 1 2021-0 No 150 CAPSULE BY 7 MOUTH EVERY 00:00: DAY 00 TAKE 1 2021-0 No 4 TABLET BY 11-17 MOUTH 00:00: DIRECTED 00 Dose 2021-0 No 4 Unknown 11-17 00:00: 00 Novolog 2021-0 No 10(3 Flexpen - mL) U-100 00:00: Insulin 00 aspart 100 unit/mL (3 mL) subcutaneou s lisinopril 2021-0 No 1mg 5 mg tablet 11-17 00:00: 00 gabapentin 2021-0 No 1mg 300 mg 11-17 capsule 00:00: 00 TAKE 1 2021-0 No 10 TABLET BY 11-17 MOUTH EVERY 00:00: DAY AT 00 BEDTIME NEEDED FOR INSOMNIA INJECT 28 2021-0 No UNITS IN 11-17 THE IN THE 00:00: MORNING AND 00 25 UNITS IN IN THE EVENING TAKE 1 2021-0 No 300 TABLET BY 7 MOUTH TWICE 00:00: A DAY 00 TAKE 1 2022-0 No 150 CAPSULE BY 11-17 MOUTH EVERY 00:00: DAY 00 Dose 2-0 No 4 Unknown 11-17 00:00: 00 TAKE 1 2021-0 No 20 TABLET BY 11-17 MOUTH EVERY 00:00: OTHER DAY 00 INHALE 1 TO 2021-0 No 2 PUFFS BY 26 MOUTH EVERY 00:00: 4 TO 6 00 HOURS NEEDED FUROSEMIDE 2-0 Yes [id number] 20mg TAKE 1 [facility] 20 mg 7-25 TABLET BY [facility] tablet 00:00: MOUTH [place] EVERY Medical OTHER DAY Branch LISINOPRIL 2021-0 Yes [id number] TAKE 1 [facility] n[facility] 5 mg tablet 7-25 TABLET BY it[facility] of 00:00: MOUTH [place] EVERY DAY Medical Branch FUROSEMIDE 2-0 Yes [id number] 20mg TAKE 1 [facility] 20 mg 7-25 TABLET BY [facility] of tablet 00:00: MOUTH [place] EVERY Medical OTHER DAY Branch LISINOPRIL 2021-0 Yes [id number] TAKE 1 [facility] 5 mg tablet 7-25 TABLET BY ity of 00:00: MOUTH [place] EVERY DAY Medical Branch LISINOPRIL 2-0 Yes [id number] TAKE 1 [facility] n[facility] 5 mg tablet 7-25 TABLET BY ity of 00:00: MOUTH [place] 00 EVERY DAY Medical Branch LISINOPRIL 2-0 Yes [id number] TAKE 1 [facility] 5 mg tablet 7-25 TABLET BY ity of 00:00: MOUTH [place] 00 EVERY DAY Medical Branch LISINOPRIL 2-0 Yes [id number] TAKE 1 [facility] 5 mg tablet 7-25 TABLET BY ity of 00:00: MOUTH [place] EVERY DAY Medical Branch LISINOPRIL 2-0 Yes [id number] TAKE 1 [facility] 5 mg tablet 7-25 TABLET BY it[facility] of 00:00: MOUTH [place] 00 EVERY DAY Medical Branch LISINOPRIL 2-0 Yes [id number] TAKE 1 [facility] 5 mg tablet 7-25 TABLET BY ity of 00:00: MOUTH [place] EVERY DAY Medical Branch LISINOPRIL 2-0 Yes [id number] TAKE 1 [facility] 5 mg tablet 7-25 TABLET BY it[facility] of 00:00: MOUTH [place] EVERY DAY Medical Branch LISINOPRIL 2-0 Yes [id number] TAKE 1 [facility] 5 mg tablet 7-25 TABLET BY ity of 00:00: MOUTH EVERY DAY Medical Branch LISINOPRIL 2022-0 Yes [id number] TAKE 1 [facility] 5 mg tablet 7-25 TABLET BY ity of 00:00: MOUTH EVERY DAY Medical Branch LISINOPRIL 2022-0 Yes [id number] TAKE 1 [facility] 5 mg tablet 7-25 TABLET BY ity of 00:00: MOUTH EVERY DAY Medical Branch LISINOPRIL 2022-0 Yes [id number] TAKE 1 [facility] 5 mg tablet 7-25 TABLET BY ity of 00:00: MOUTH EVERY DAY Medical Branch LISINOPRIL 2022-0 Yes [id number] TAKE 1 [facility] 5 mg tablet 7-25 TABLET BY ity of 00:00: MOUTH [place] EVERY DAY Medical Branch LISINOPRIL 2022-0 Yes [id number] TAKE 1 [facility] n[facility] 5 mg tablet 7-25 TABLET BY ity of 00:00: MOUTH EVERY DAY Medical Branch LISINOPRIL 2022-0 Yes [id number] TAKE 1 [facility] 5 mg tablet 7-25 TABLET BY ity of 00:00: MOUTH [place] EVERY DAY Medical Branch LISINOPRIL 2022-0 Yes [id number] TAKE 1 [facility] n[facility] 5 mg tablet 7-25 TABLET BY ity of 00:00: MOUTH [place] EVERY DAY Medical Branch LISINOPRIL 2022-0 Yes [id number] TAKE 1 [facility] nivers 5 mg tablet 7-25 TABLET BY ity of 00:00: [facility] EVERY DAY Medical Branch LISINOPRIL 2022-0 Yes [id number] TAKE 1 U nivers 5 mg tablet 7-25 TABLET BY ity of 00:00: MOUTH [place] EVERY DAY Medical Branch LISINOPRIL 2022-0 Yes [id number] TAKE 1 [facility] nivers 5 mg tablet 7-25 TABLET BY ity of 00:00: MOUTH [place] EVERY DAY Medical Branch LISINOPRIL 2022-0 Yes [id number] TAKE 1 [facility] nivers 5 mg tablet 7-25 TABLET BY ity of 00:00: MOUTH [place] EVERY DAY Medical Branch LISINOPRIL 2022-0 Yes [id number] TAKE 1 [facility] n[facility] 5 mg tablet 7-25 TABLET BY ity of 00:00: MOUTH [place] EVERY DAY Medical Branch LISINOPRIL 2022-0 Yes [id number] TAKE 1 [facility] n[facility] 5 mg tablet 7-25 TABLET BY ity of 00:00: MOUTH [place] EVERY DAY Medical Branch LISINOPRIL 2022-0 Yes [id number] TAKE 1 [facility] n[facility] 5 mg tablet 7-25 TABLET BY ity of 00:00: MOUTH [place] EVERY DAY Medical Branch LISINOPRIL 2022-0 Yes [id number] TAKE 1 [facility] n[facility] 5 mg tablet 7-25 TABLET BY ity of 00:00: [facility] EVERY DAY Medical Branch LISINOPRIL 2022-0 Yes [id number] TAKE 1 U nivers 5 mg tablet 7-25 TABLET BY ity of 00:00: MOUTH [place] EVERY DAY Medical Branch LISINOPRIL 2022-0 Yes [id number] TAKE 1 [facility] nivers 5 mg tablet 7-25 TABLET BY ity of 00:00: [facility] EVERY DAY Medical Branch LISINOPRIL 2022-0 Yes [id number] TAKE 1 [facility] nivers 5 mg tablet 7-25 TABLET BY ity of 00:00: [facility] EVERY DAY Medical Branch LISINOPRIL 2022-0 Yes [id number] TAKE 1 [facility] nivers 5 mg tablet 7-25 TABLET BY ity of 00:00: [facility] EVERY DAY Medical Branch LISINOPRIL 2022-0 Yes [id number] TAKE 1 [facility] nivers 5 mg tablet 7-25 TABLET BY ity of 00:00: [facility] EVERY DAY Medical Branch LISINOPRIL 2022-0 Yes [id number] TAKE 1 [facility] nivers 5 mg tablet 7-25 TABLET BY ity of 00:00: [facility] EVERY DAY Medical Branch LISINOPRIL 2022-0 Yes [id number] TAKE 1 [facility] nivers 5 mg tablet 7-25 TABLET BY ity of 00:00: [facility] EVERY DAY Medical Branch LISINOPRIL 2022-0 Yes [id number] TAKE 1 [facility] nivers 5 mg tablet 7-25 TABLET BY ity of 00:00: [facility] EVERY DAY Medical Branch LISINOPRIL 2022-0 Yes [id number] TAKE 1 [facility] nivers 5 mg tablet 7-25 TABLET BY ity of 00:00: [facility] EVERY DAY Medical Branch LISINOPRIL 2022-0 Yes [id number] TAKE 1 [facility] nivers 5 mg tablet 7-25 TABLET BY ity of 00:00: [facility] EVERY DAY Medical Branch LISINOPRIL 2022-0 Yes [id number] TAKE 1 [facility] nivers 5 mg tablet 7-25 TABLET BY ity of 00:00: MOUTH [place] EVERY DAY Medical Branch LISINOPRIL 2022-0 Yes [id number] TAKE 1 [facility] nivers 5 mg tablet 7-25 TABLET BY ity of 00:00: MOUTH [place] EVERY DAY Medical Branch LISINOPRIL 2022-0 Yes [id number] TAKE 1 [facility] nivers 5 mg tablet 7-25 TABLET BY ity of 00:00: MOUTH [place] EVERY DAY Medical Branch LISINOPRIL 2022-0 Yes [id number] TAKE 1 [facility] nivers 5 mg tablet 7-25 TABLET BY ity of 00:00: MOUTH [place] EVERY DAY Medical Branch LISINOPRIL 2022-0 Yes [id number] TAKE 1 [facility] nivers 5 mg tablet 7-25 TABLET BY ity of 00:00: [facility] EVERY DAY Medical Branch LISINOPRIL 2022-0 Yes [id number] TAKE 1 [facility] nivers 5 mg tablet 7-25 TABLET BY ity of 00:00: [facility] EVERY DAY Medical Branch LISINOPRIL 2022-0 Yes [id number] TAKE 1 [facility] nivers 5 mg tablet 7-25 TABLET BY ity of 00:00: MOUTH [place] EVERY DAY Medical Branch LISINOPRIL 2022-0 Yes [id number] TAKE 1 [facility] nivers 5 mg tablet 7-25 TABLET BY ity of 00:00: [facility] EVERY DAY Medical Branch LISINOPRIL 2022-0 Yes [id number] TAKE 1 [facility] nivers 5 mg tablet 7-25 TABLET BY ity of 00:00: [facility] EVERY DAY Medical Branch LISINOPRIL 2022-0 Yes [id number] TAKE 1 [facility] nivers 5 mg tablet 7-25 TABLET BY ity of 00:00: MOUTH [place] EVERY DAY Medical Branch LISINOPRIL 2022-0 Yes [id number] TAKE 1 [facility] nivers 5 mg tablet 7-25 TABLET BY ity of 00:00: MOUTH [place] EVERY DAY Medical Branch LISINOPRIL 2022-0 Yes [id number] TAKE 1 [facility] nivers 5 mg tablet 7-25 TABLET BY ity of 00:00: [facility] EVERY DAY Medical Branch LISINOPRIL 2022-0 Yes [id number] TAKE 1 [facility] nivers 5 mg tablet 7-25 TABLET BY ity of 00:00: MOUTH [place] EVERY DAY Medical Branch LISINOPRIL 2022-0 Yes [id number] TAKE 1 [facility] nivers 5 mg tablet 7-25 TABLET BY ity of 00:00: MOUTH [place] EVERY DAY Medical Branch LISINOPRIL 2022-0 Yes [id number] TAKE 1 [facility] nivers 5 mg tablet 7-25 TABLET BY ity of 00:00: MOUTH [place] EVERY DAY Medical Branch LISINOPRIL 2022-0 Yes [id number] TAKE 1 [facility] nivers 5 mg tablet 7-25 TABLET BY ity of 00:00: MOUTH [place] EVERY DAY Medical Branch LISINOPRIL 2022-0 Yes [id number] TAKE 1 [facility] nivers 5 mg tablet 7-25 TABLET BY ity of 00:00: MOUTH [place] EVERY DAY Medical Branch LISINOPRIL 2022-0 Yes [id number] TAKE 1 [facility]ivers 5 mg tablet 7-25 TABLET BY ity of 00:00: [facility] EVERY DAY Medical Branch LISINOPRIL 2022-0 Yes [id number] TAKE 1 [facility] nivers 5 mg tablet 7-25 TABLET BY ity of 00:00: [facility] EVERY DAY Medical Branch LISINOPRIL 2022-0 Yes [id number] TAKE 1 [facility] nivers 5 mg tablet 7-25 TABLET BY ity of 00:00: [facility] EVERY DAY Medical Branch LISINOPRIL 2022-0 Yes [id number] TAKE 1 [facility] nivers 5 mg tablet 7-25 TABLET BY ity of 00:00: [facility] EVERY DAY Medical Branch LISINOPRIL 2022-0 Yes [id number] TAKE 1 [facility] nivers 5 mg tablet 7-25 TABLET BY ity of 00:00: [facility] EVERY DAY Medical Branch LISINOPRIL 2022-0 Yes [id number] TAKE 1 [facility] nivers 5 mg tablet 7-25 TABLET BY ity of 00:00: [facility] EVERY DAY Medical Branch LISINOPRIL 2022-0 Yes [id number] TAKE 1 [facility] nivers 5 mg tablet 7-25 TABLET BY ity of 00:00: [facility] EVERY DAY Medical Branch LISINOPRIL 2022-0 Yes [id number] TAKE 1 [facility] nivers 5 mg tablet 7-25 TABLET BY ity of 00:00: [facility] EVERY DAY Medical Branch LISINOPRIL 2022-0 Yes [id number] TAKE 1 [facility] nivers 5 mg tablet 7-25 TABLET BY ity of 00:00: [facility] 00 EVERY DAY Medical Branch LISINOPRIL 2022-0 Yes [id number] TAKE 1 [facility] nivers 5 mg tablet 7-25 TABLET BY ity of 00:00: MOUTH [place] 00 EVERY DAY Medical Branch LISINOPRIL 2021-0 Yes [id number] TAKE 1 [facility] nivers 5 mg tablet 7-25 TABLET BY ity of 00:00: MOUTH [place] 00 EVERY DAY Medical Branch LISINOPRIL 2021-0 Yes [id number] TAKE 1 [facility] n[facility] 5 mg tablet 7-25 TABLET BY ity of 00:00: MOUTH [place] 00 EVERY DAY Medical Branch LISINOPRIL 2021-0 Yes [id number] TAKE 1 [facility] 5 mg tablet 7-25 TABLET BY ity of 00:00: MOUTH [place] 00 EVERY DAY Medical Branch LISINOPRIL 2021-0 2023- No [id number] TAKE 1 [facility] 5 mg tablet 7-25 05-07 TABLET BY it y of 00:00: 22:39 MOUTH [place] 00 :17 EVERY DAY Medical Branch FUROSEMIDE 2021-0 2- No [id number] 20mg TAKE 1 [facility] 20 mg 7-25 -22 TABLET BY ity of tablet 00:00: 00:00 MOUTH [place] 00 :00 EVERY Medical OTHER DAY Branch TAKE 1 2021-0 No 20 TABLET BY 7-12 MOUTH TWICE 00:00: A DAY 00 TAKE 1 2021-0 No 20 TABLET BY 7-12 MOUTH TWICE 00:00: A DAY 00 Dose 2021-0 No Unknown 7-12 00:00: 00 ZOLPIDEM 10 2021-0 Yes [id number] TAKE 1 [facility] mg tablet 7-12 TABLET BY ity o f 00:00: MOUTH [place] 00 EVERY DAY Medical AT BEDTIME Branch NEEDED FOR INSOMNIA ZOLPIDEM 10 2021-0 Yes [id number] TAKE 1 [facility] mg tablet 7-12 TABLET BY ity o f 00:00: MOUTH [place] 00 EVERY DAY Medical AT BEDTIME Branch NEEDED FOR INSOMNIA ZOLPIDEM 10 2021-0 Yes [id number] TAKE 1 [facility] mg tablet 7-12 TABLET BY ity o f 00:00: MOUTH [place] 00 EVERY DAY Medical AT BEDTIME Branch NEEDED FOR INSOMNIA ZOLPIDEM 10 2021-0 Yes [id number] TAKE 1 [facility] mg tablet 7-12 TABLET BY ity o f 00:00: MOUTH [place] 00 EVERY DAY Medical AT BEDTIME Branch NEEDED FOR INSOMNIA ZOLPIDEM 10 2021-0 Yes [id number] TAKE 1 [facility] mg tablet 7-12 TABLET BY ity o f 00:00: MOUTH [place] 00 EVERY DAY Medical AT BEDTIME Branch NEEDED FOR INSOMNIA ZOLPIDEM 10 2021-0 Yes [id number] TAKE 1 [facility] mg tablet 7-12 TABLET BY ity o f 00:00: MOUTH [place] 00 EVERY DAY Medical AT BEDTIME Branch NEEDED FOR INSOMNIA ZOLPIDEM 10 2021-0 Yes [id number] TAKE 1 [facility] mg tablet 7-12 TABLET BY ity o f 00:00: MOUTH [place] 00 EVERY DAY Medical AT BEDTIME Branch NEEDED FOR INSOMNIA ZOLPIDEM 10 2021-0 Yes [id number] TAKE 1 [facility] mg tablet 7-12 TABLET BY ity o f 00:00: MOUTH [place] 00 EVERY DAY Medical AT BEDTIME Branch NEEDED FOR INSOMNIA ZOLPIDEM 10 2021-0 Yes [id number] TAKE 1 [facility] mg tablet 7-12 TABLET BY ity o f 00:00: MOUTH [place] 00 EVERY DAY Medical AT BEDTIME Branch NEEDED FOR INSOMNIA ZOLPIDEM 10 2021-0 2022- No [id number] TAKE 1 [facility] mg tablet 7-12 -20 TABLET BY ity of 00:00: 00:00 MOUTH [place] 00 :00 EVERY DAY Medical AT BEDTIME Branch NEEDED FOR INSOMNIA ZOLPIDEM 10 2021-0 2021- No [id number] TAKE 1 [facility] mg tablet 7-12 09-20 TABLET BY ity of 00:00: 00:00 MOUTH [place] 00 :00 EVERY DAY Medical AT BEDTIME Branch NEEDED FOR INSOMNIA metoclopram 2021-0 No 1mg daniel 10 mg 7-11 tablet 00:00: 00 trazodone 2021-0 No 1mg 100 mg 7-11 tablet 00:00: 00 TAKE 1 2021-0 No 20 TABLET BY 7-11 MOUTH TWICE 00:00: A DAY 00 TAKE 1 2021-0 No 5 TABLET BY 7-11 MOUTH 00:00: BEFORE 00 MEALS INJECT 28 2021-0 No UNITS IN 7-11 THE IN THE 00:00: MORNING AND 00 25 UNITS IN IN THE EVENING Dose 2021-0 No 4 Unknown - 00:00: 00 TAKE 1 2021-0 No 5 TABLET BY 7-11 MOUTH EVERY 00:00: DAY 00 INJECT 28 2021-0 No UNITS IN 7-11 THE IN THE 00:00: MORNING AND 00 25 UNITS IN IN THE EVENING &lt 2-0 No 10 7- 00:00: 00 Dose 2-0 No 4 Unknown 11-02 00:00: 00 Dose 2022-0 No Unknown 11-02 00:00: 00 Dose 2-0 No 20 Unknown 11-02 00:00: 00 Dose 2-0 No 5 Unknown 11-02 00:00: 00 ATKE 1 2-0 No TABLET 11-02 EVERY 8 00:00: HOURS 00 NEEDED FOR PAIN INHALE 1 TO 2021-0 No 2 PUFFS BY - MOUTH EVERY 00:00: 4 TO 6 00 HOURS NEEDED TAKE 1 2021-0 No 5 TABLET BY 11-02 MOUTH EVERY 00:00: DAY 00 QUETIAPINE 2-0 Yes [id number] TAKE 1 [facility] 300 mg 7-07 TABLET BY [facility]y of tablet 00:00: MOUTH TWICE A Medical DAY Branch QUETIAPINE 2022-0 Yes [id number] TAKE 1 [facility] 300 mg 7-07 TABLET BY ity of tablet 00:00: MOUTH TWICE A Medical DAY Branch QUETIAPINE 2022-0 Yes [id number] TAKE 1 [facility] 300 mg 7-07 TABLET BY [facility]y of tablet 00:00: MOUTH 00 TWICE A Medical DAY Branch QUETIAPINE 2022-0 Yes [id number] TAKE 1 [facility] 300 mg 7-07 TABLET BY ity of tablet 00:00: MOUTH 00 TWICE A Medical DAY Branch QUETIAPINE 2022-0 Yes [id number] TAKE 1 [facility] 300 mg 7-07 TABLET BY ity of tablet 00:00: MOUTH TWICE A Medical DAY Branch QUETIAPINE 2022-0 Yes [id number] TAKE 1 [facility] 300 mg 7-07 TABLET BY [facility]y of tablet 00:00: MOUTH 00 TWICE A Medical DAY Branch QUETIAPINE 2022-0 Yes [id number] TAKE 1 [facility] 300 mg 7-07 TABLET BY ity of tablet 00:00: MOUTH 00 TWICE A Medical DAY Branch QUETIAPINE 2022-0 Yes [id number] TAKE 1 [facility] 300 mg 7-07 TABLET BY ity of tablet 00:00: MOUTH TWICE A Medical DAY Branch QUETIAPINE 2022-0 Yes [id number] TAKE 1 [facility] 300 mg 7-07 TABLET BY [facility]y of tablet 00:00: MOUTH [place] 00 TWICE A Medical DAY Branch QUETIAPINE 2-0 Yes [id number] TAKE 1 [facility] nivers 300 mg 7-07 TABLET BY ity of tablet 00:00: MOUTH 00 TWICE A Medical DAY Branch QUETIAPINE 2-0 Yes [id number] TAKE 1 [facility] 300 mg 7-07 TABLET BY ity of tablet 00:00: MOUTH 00 TWICE A Medical DAY Branch QUETIAPINE 2-0 Yes [id number] TAKE 1 [facility] 300 mg 7-07 TABLET BY ity of tablet 00:00: MOUTH [place] 00 TWICE A Medical DAY Branch QUETIAPINE 2-0 Yes [id number] TAKE 1 [facility] nivers 300 mg 7-07 TABLET BY ity of tablet 00:00: MOUTH 00 TWICE A Medical DAY Branch QUETIAPINE 2021-0 Yes [id number] TAKE 1 [facility] 300 mg 7-07 TABLET BY ity of tablet 00:00: MOUTH 00 TWICE A Medical DAY Branch QUETIAPINE 2021-0 Yes [id number] TAKE 1 [facility] 300 mg 7-07 TABLET BY ity of tablet 00:00: MOUTH 00 TWICE A Medical DAY Branch QUETIAPINE 2021-0 2022- No [id number] TAKE 1 [facility] 300 mg 7-07 10-03 TABLET BY ity of tablet 00:00: 00:00 MOUTH [place] 00 :00 TWICE A Medical DAY Branch Humulin 2021-0 No unit/mL 70/30 U-100 7-05 (70-30) Insulin 00:00: KwikPen 100 00 unit/mL subcutaneou s ciprofloxac 2021-0 No 1mg in 250 mg 7-05 tablet 00:00: 00 INJECT 28 2021-0 No UNITS IN 7-05 THE IN THE 00:00: MORNING AND 00 25 UNITS IN IN THE EVENING TAKE 1 2021-0 No 4 TABLET BY 7-05 MOUTH 00:00: DIRECTED 00 TAKE 1 2021-0 No 150 CAPSULE BY 7-05 MOUTH EVERY 00:00: DAY 00 ATKE 1 2021-0 No TABLET 7-05 EVERY 8 00:00: HOURS 00 NEEDED FOR PAIN TAKE 1 2021-0 No 10 TABLET BY 7-05 MOUTH EVERY 00:00: DAY AT 00 BEDTIME NEEDED FOR INSOMNIA TAKE 1 2021-0 No 800 TABLET BY 7-05 MOUTH THREE 00:00: TIMES A DAY 00 TAKE 1 2021-0 No 5 TABLET BY 7-05 MOUTH EVERY 00:00: DAY 00 &lt 2-0 No 7-05 00:00: 00 &lt 2022-0 No 10 7-05 00:00: 00 &lt 2022-0 No 7-05 00:00: 00 TAKE 1 2021-0 No 10 TABLET BY 7-05 MOUTH AT 00:00: BEDTIME 00 NEEDED FOR INSOMNIA Dose 2-0 No 5 Unknown 7-05 00:00: 00 TAKE 1 2021-0 No 4 TABLET BY 7-05 MOUTH 00:00: DIRECTED 00 TAKE 1 2021-0 No 5 TABLET BY 7-05 MOUTH EVERY 00:00: DAY 00 TAKE 1 2021-0 No 20 TABLET BY 7-05 MOUTH TWICE 00:00: A DAY 00 ALBUTEROL 2021-0 Yes INHALE 1 [facility] ers [...] Med ical 6 HOURS Branch NEEDED ALBUTEROL 2-0 Yes INHALE 1 [facility] ers 90 7-05 TO 2 PUFFS ity of mcg/actuati 00:00: BY MOUTH [place] inhaler 00 EVERY 4 TO Med ical 6 HOURS Branch NEEDED ALBUTEROL 2-0 Yes INHALE 1 Univ ers 90 7-05 [...] ical 6 HOURS Branch NEEDED ALBUTEROL 2021-0 2- No INHALE 1 [facility] vers 90 7-05 09-26 TO 2 PUFFS ity of mcg/actuati 00:00: 00:00 BY MOUTH [place] inhaler 00 :00 EVERY 4 TO Med ical 6 HOURS Branch NEEDED linaCLOtide 2022-0 Yes [id number] TAKE 1 [facility] (LINZESS) 6-27 CAPSULE BY ity of 290 mcg Cap 00:00: MOUTH ONCE [place] 00 DAILY 30 Medical MINUTES Branch BEFORE THE FIRST MEAL OF THE DAY linaCLOtide 2022-0 Yes [id number] TAKE 1 [facility] (LINZESS) 6-27 CAPSULE BY ity of 290 mcg Cap 00:00: MOUTH ONCE [place] 00 DAILY 30 Medical MINUTES Branch BEFORE THE FIRST MEAL OF THE DAY linaCLOtide 0 Yes [id number] TAKE 1 [facility] (LINZESS) 6-27 CAPSULE BY ity of 290 mcg Cap 00:00: MOUTH ONCE [place] 00 DAILY 30 Medical MINUTES Branch BEFORE THE FIRST MEAL OF THE DAY linaCLOtide 0 Yes [id number] TAKE 1 [facility] (LINZESS) 6-27 CAPSULE BY ity of 290 mcg Cap 00:00: MOUTH ONCE [place] 00 DAILY 30 Medical MINUTES Branch BEFORE THE FIRST MEAL OF THE DAY linaCLOtide 0 Yes [id number] TAKE 1 [facility] (LINZESS) 6-27 CAPSULE BY ity of 290 mcg Cap 00:00: MOUTH ONCE [place] 00 DAILY 30 Medical MINUTES Branch BEFORE THE FIRST MEAL OF THE DAY linaCLOtide Yes [id number] TAKE 1 [facility] (LINZESS) 6-27 CAPSULE BY ity of 290 mcg Cap 00:00: MOUTH ONCE [place] 00 DAILY 30 Medical MINUTES Branch BEFORE THE FIRST MEAL OF THE DAY linaCLOtide Yes [id number] TAKE 1 [facility] (LINZESS) 6-27 CAPSULE BY ity of 290 mcg Cap 00:00: MOUTH ONCE [place] 00 DAILY 30 Medical MINUTES Branch BEFORE THE FIRST MEAL OF THE DAY linaCLOtide Yes [id number] TAKE 1 [facility] (LINZESS) 6-27 CAPSULE BY ity of 290 mcg Cap 00:00: MOUTH ONCE [place] 00 DAILY 30 Medical MINUTES Branch BEFORE THE FIRST MEAL OF THE DAY linaCLOtide Yes [id number] TAKE 1 [facility] (LINZESS) 6-27 CAPSULE BY ity of 290 mcg Cap 00:00: MOUTH ONCE [place] 00 DAILY 30 Medical MINUTES Branch BEFORE THE FIRST MEAL OF THE DAY linaCLOtide 0 Yes [id number] TAKE 1 [facility] (LINZESS) 6-27 CAPSULE BY ity of 290 mcg Cap 00:00: MOUTH ONCE [place] 00 DAILY 30 Medical MINUTES Branch BEFORE THE FIRST MEAL OF THE DAY linaCLOtide 0 Yes [id number] TAKE 1 [facility] (LINZESS) 6-27 CAPSULE BY ity of 290 mcg Cap 00:00: MOUTH ONCE [place] 00 DAILY 30 Medical MINUTES Branch BEFORE THE FIRST MEAL OF THE DAY linaCLOtide 0 Yes [id number] TAKE 1 [facility] (LINZESS) 6-27 CAPSULE BY ity of 290 mcg Cap 00:00: MOUTH ONCE [place] 00 DAILY 30 Medical MINUTES Branch BEFORE THE FIRST MEAL OF THE DAY linaCLOtide 2021-0 Yes [id number] TAKE 1 [facility] (LINZESS) 6-27 CAPSULE BY ity of 290 mcg Cap 00:00: MOUTH ONCE [place] 00 DAILY 30 Medical MINUTES Branch BEFORE THE FIRST MEAL OF THE DAY linaCLOtide 0 Yes [id number] TAKE 1 [facility] (LINZESS) 6-27 CAPSULE BY ity of 290 mcg Cap 00:00: MOUTH ONCE [place] 00 DAILY 30 Medical MINUTES Branch BEFORE THE FIRST MEAL OF THE DAY linaCLOtide 0 Yes [id number] TAKE 1 [facility] (LINZESS) 6-27 CAPSULE BY [facility]y of 290 mcg Cap 00:00: MOUTH ONCE [place] 00 DAILY 30 Medical MINUTES Branch BEFORE THE FIRST MEAL OF THE DAY linaCLOtide 0 Yes [id number] TAKE 1 [facility] (LINZESS) 6-27 CAPSULE BY [facility]y of 290 mcg Cap 00:00: MOUTH ONCE [place] 00 DAILY 30 Medical MINUTES Branch BEFORE THE FIRST MEAL OF THE DAY linaCLOtide Yes [id number] TAKE 1 [facility] (LINZESS) 6-27 CAPSULE BY ity of 290 mcg Cap 00:00: MOUTH ONCE [place] 00 DAILY 30 Medical MINUTES Branch BEFORE THE FIRST MEAL OF THE DAY linaCLOtide 0 Yes [id number] TAKE 1 [facility] (LINZESS) 6-27 CAPSULE BY ity of 290 mcg Cap 00:00: MOUTH ONCE [place] 00 DAILY 30 Medical MINUTES Branch BEFORE THE FIRST MEAL OF THE DAY linaCLOtide 0 Yes [id number] TAKE 1 [facility] (LINZESS) 6-27 CAPSULE BY [facility]y of 290 mcg Cap 00:00: MOUTH ONCE [place] 00 DAILY 30 Medical MINUTES Branch BEFORE THE FIRST MEAL OF THE DAY linaCLOtide 0 Yes [id number] TAKE 1 [facility] (LINZESS) 6-27 CAPSULE BY ity of 290 mcg Cap 00:00: MOUTH ONCE [place] 00 DAILY 30 Medical MINUTES Branch BEFORE THE FIRST MEAL OF THE DAY linaCLOtide 0 Yes [id number] TAKE 1 [facility] (LINZESS) 6-27 CAPSULE BY ity of 290 mcg Cap 00:00: MOUTH ONCE [place] 00 DAILY 30 Medical MINUTES Branch BEFORE THE FIRST MEAL OF THE DAY linaCLOtide 0 Yes [id number] TAKE 1 [facility] (LINZESS) 6-27 CAPSULE BY ity of 290 mcg Cap 00:00: MOUTH ONCE [place] 00 DAILY 30 Medical MINUTES Branch BEFORE THE FIRST MEAL OF THE DAY linaCLOtide 0 Yes [id number] TAKE 1 [facility] (LINZESS) 6-27 CAPSULE BY ity of 290 mcg Cap 00:00: MOUTH ONCE [place] 00 DAILY 30 Medical MINUTES Branch BEFORE THE FIRST MEAL OF THE DAY linaCLOtide 0 Yes [id number] TAKE 1 [facility] (LINZESS) 6-27 CAPSULE BY ity of 290 mcg Cap 00:00: MOUTH ONCE [place] 00 DAILY 30 Medical MINUTES Branch BEFORE THE FIRST MEAL OF THE DAY linaCLOtide Yes [id number] TAKE 1 [facility] (LINZESS) 6-27 CAPSULE BY ity of 290 mcg Cap 00:00: MOUTH ONCE [place] 00 DAILY 30 Medical MINUTES Branch BEFORE THE FIRST MEAL OF THE DAY linaCLOtide Yes [id number] TAKE 1 [facility] (LINZESS) 6-27 CAPSULE BY ity of 290 mcg Cap 00:00: MOUTH ONCE [place] 00 DAILY 30 Medical MINUTES Branch BEFORE THE FIRST MEAL OF THE DAY linaCLOtide Yes [id number] TAKE 1 [facility] (LINZESS) 6-27 CAPSULE BY ity of 290 mcg Cap 00:00: MOUTH ONCE [place] 00 DAILY 30 Medical MINUTES Branch BEFORE THE FIRST MEAL OF THE DAY linaCLOtide Yes [id number] TAKE 1 [facility] (LINZESS) 6-27 CAPSULE BY ity of 290 mcg Cap 00:00: MOUTH ONCE [place] 00 DAILY 30 Medical MINUTES Branch BEFORE THE FIRST MEAL OF THE DAY linaCLOtide 0 Yes [id number] TAKE 1 [facility] (LINZESS) 6-27 CAPSULE BY ity of 290 mcg Cap 00:00: MOUTH ONCE [place] 00 DAILY 30 Medical MINUTES Branch BEFORE THE FIRST MEAL OF THE DAY linaCLOtide 0 Yes [id number] TAKE 1 [facility] (LINZESS) 6-27 CAPSULE BY ity of 290 mcg Cap 00:00: MOUTH ONCE [place] 00 DAILY 30 Medical MINUTES Branch BEFORE THE FIRST MEAL OF THE DAY linaCLOtide 0 Yes [id number] TAKE 1 [facility] (LINZESS) 6-27 CAPSULE BY ity of 290 mcg Cap 00:00: MOUTH ONCE [place] 00 DAILY 30 Medical MINUTES Branch BEFORE THE FIRST MEAL OF THE DAY linaCLOtide Yes [id number] TAKE 1 [facility] (LINZESS) 6-27 CAPSULE BY ity of 290 mcg Cap 00:00: MOUTH ONCE [place] 00 DAILY 30 Medical MINUTES Branch BEFORE THE FIRST MEAL OF THE DAY linaCLOtide Yes [id number] TAKE 1 [facility] (LINZESS) 6-27 CAPSULE BY ity of 290 mcg Cap 00:00: MOUTH ONCE [place] 00 DAILY 30 Medical MINUTES Branch BEFORE THE FIRST MEAL OF THE DAY linaCLOtide Yes [id number] TAKE 1 [facility] (LINZESS) 6-27 CAPSULE BY ity of 290 mcg Cap 00:00: MOUTH ONCE [place] 00 DAILY 30 Medical MINUTES Branch BEFORE THE FIRST MEAL OF THE DAY linaCLOtide Yes [id number] TAKE 1 [facility] (LINZESS) 6-27 CAPSULE BY ity of 290 mcg Cap 00:00: MOUTH ONCE [place] 00 DAILY 30 Medical MINUTES Branch BEFORE THE FIRST MEAL OF THE DAY linaCLOtide Yes [id number] TAKE 1 [facility] (LINZESS) 6-27 CAPSULE BY ity of 290 mcg Cap 00:00: MOUTH ONCE [place] 00 DAILY 30 Medical MINUTES Branch BEFORE THE FIRST MEAL OF THE DAY linaCLOtide Yes [id number] TAKE 1 [facility] (LINZESS) 6-27 CAPSULE BY ity of 290 mcg Cap 00:00: MOUTH ONCE [place] 00 DAILY 30 Medical MINUTES Branch BEFORE THE FIRST MEAL OF THE DAY linaCLOtide Yes [id number] TAKE 1 [facility] (LINZESS) 6-27 CAPSULE BY ity of 290 mcg Cap 00:00: MOUTH ONCE [place] 00 DAILY 30 Medical MINUTES Branch BEFORE THE FIRST MEAL OF THE DAY linaCLOtide Yes [id number] TAKE 1 [facility] (LINZESS) 6-27 CAPSULE BY ity of 290 mcg Cap 00:00: MOUTH ONCE [place] 00 DAILY 30 Medical MINUTES Branch BEFORE THE FIRST MEAL OF THE DAY linaCLOtide 0 Yes [id number] TAKE 1 [facility] (LINZESS) 6-27 CAPSULE BY ity of 290 mcg Cap 00:00: MOUTH ONCE [place] 00 DAILY 30 Medical MINUTES Branch BEFORE THE FIRST MEAL OF THE DAY linaCLOtide 0 Yes [id number] TAKE 1 [facility] (LINZESS) 6-27 CAPSULE BY ity of 290 mcg Cap 00:00: MOUTH ONCE [place] 00 DAILY 30 Medical MINUTES Branch BEFORE THE FIRST MEAL OF THE DAY linaCLOtide 0 Yes [id number] TAKE 1 [facility] (LINZESS) 6-27 CAPSULE BY ity of 290 mcg Cap 00:00: MOUTH ONCE [place] 00 DAILY 30 Medical MINUTES Branch BEFORE THE FIRST MEAL OF THE DAY linaCLOtide 0 Yes [id number] TAKE 1 [facility] (LINZESS) 6-27 CAPSULE BY ity of 290 mcg Cap 00:00: MOUTH ONCE [place] 00 DAILY 30 Medical MINUTES Branch BEFORE THE FIRST MEAL OF THE DAY linaCLOtide 0 Yes [id number] TAKE 1 [facility] (LINZESS) 6-27 CAPSULE BY ity of 290 mcg Cap 00:00: MOUTH ONCE [place] 00 DAILY 30 Medical MINUTES Branch BEFORE THE FIRST MEAL OF THE DAY linaCLOtide 0 Yes [id number] TAKE 1 [facility] (LINZESS) 6-27 CAPSULE BY ity of 290 mcg Cap 00:00: MOUTH ONCE [place] 00 DAILY 30 Medical MINUTES Branch BEFORE THE FIRST MEAL OF THE DAY linaCLOtide 0 Yes [id number] TAKE 1 [facility] (LINZESS) 6-27 CAPSULE BY ity of 290 mcg Cap 00:00: MOUTH ONCE [place] 00 DAILY 30 Medical MINUTES Branch BEFORE THE FIRST MEAL OF THE DAY linaCLOtide 0 Yes [id number] TAKE 1 [facility] (LINZESS) 6-27 CAPSULE BY ity of 290 mcg Cap 00:00: MOUTH ONCE [place] 00 DAILY 30 Medical MINUTES Branch BEFORE THE FIRST MEAL OF THE DAY linaCLOtide 0 Yes [id number] TAKE 1 [facility] (LINZESS) 6-27 CAPSULE BY ity of 290 mcg Cap 00:00: MOUTH ONCE [place] 00 DAILY 30 Medical MINUTES Branch BEFORE THE FIRST MEAL OF THE DAY linaCLOtide 0 Yes [id number] TAKE 1 [facility] (LINZESS) 6-27 CAPSULE BY ity of 290 mcg Cap 00:00: MOUTH ONCE [place] 00 DAILY 30 Medical MINUTES Branch BEFORE THE FIRST MEAL OF THE DAY linaCLOtide 0 Yes [id number] TAKE 1 [facility] (LINZESS) 6-27 CAPSULE BY ity of 290 mcg Cap 00:00: MOUTH ONCE [place] 00 DAILY 30 Medical MINUTES Branch BEFORE THE FIRST MEAL OF THE DAY linaCLOtide 0 Yes [id number] TAKE 1 [facility] (LINZESS) 6-27 CAPSULE BY ity of 290 mcg Cap 00:00: MOUTH ONCE [place] 00 DAILY 30 Medical MINUTES Branch BEFORE THE FIRST MEAL OF THE DAY linaCLOtide 2021-0 Yes [id number] TAKE 1 [facility] (LINZESS) 6-27 CAPSULE BY ity of 290 mcg Cap 00:00: MOUTH ONCE [place] 00 DAILY 30 Medical MINUTES Branch BEFORE THE FIRST MEAL OF THE DAY linaCLOtide 2021-0 Yes [id number] TAKE 1 [facility] (LINZESS) 6-27 CAPSULE BY ity of 290 mcg Cap 00:00: MOUTH ONCE [place] 00 DAILY 30 Medical MINUTES Branch BEFORE THE FIRST MEAL OF THE DAY linaCLOtide 2021-0 Yes [id number] TAKE 1 [facility] (LINZESS) 6-27 CAPSULE BY ity of 290 mcg Cap 00:00: MOUTH ONCE [place] 00 DAILY 30 Medical MINUTES Branch BEFORE THE FIRST MEAL OF THE DAY linaCLOtide 0 Yes [id number] TAKE 1 [facility] (LINZESS) 6-27 CAPSULE BY ity of 290 mcg Cap 00:00: MOUTH ONCE [place] 00 DAILY 30 Medical MINUTES Branch BEFORE THE FIRST MEAL OF THE DAY linaCLOtide 0 2023- No [id number] TAKE 1 [facility] (LINZESS) 6-27 04-12 CAPSULE BY ity of 290 mcg Cap 00:00: 00:00 MOUTH ONCE [place] 00 :00 DAILY 30 Medical MINUTES Branch BEFORE THE FIRST MEAL OF THE DAY simethicone 2-0 No 1mg 125 mg 6-10 chewable 00:00: tablet 00 gabapentin 2021-0 No 1mg 300 mg 6-10 capsule 00:00: 00 Dose 2022-0 No Unknown 6-10 00:00: 00 Dose 2-0 No Unknown 6-10 00:00: 00 TAKE 1 2021-0 No TABLET BY 6-10 MOUTH TWICE 00:00: A DAY 00 INHALE 1 TO 2021-0 No 2 PUFFS BY 6-10 MOUTH EVERY 00:00: 4 TO 6 00 HOURS NEEDED &lt 2-0 No 6-10 00:00: 00 INHALE 1 TO 2021-0 No 2 PUFFS BY 6-10 MOUTH EVERY 00:00: 4 TO 6 00 HOURS NEEDED TAKE 1 2021-0 No TABLET BY 6-10 MOUTH EVERY 00:00: DAY AT 00 BEDTIME NEEDED FOR INSOMNIA TAKE 1 2021-0 No CAPSULE BY 6-10 MOUTH EVERY 00:00: DAY 00 &lt 2021-0 No 6-10 00:00: 00 TAKE 1 0 No CAPSULE BY 6-10 MOUTH THREE 00:00: TIMES A DAY 00 Insulin 2021-0 Yes [id number] INJECT 28 [facility] NPH-Regular 6-05 9101 UNITS IN ity of Human Rec 00:00: THE IN THE [place] (HUMULIN 00 MORNING Medical 70/30 U-100 AND 25 Branch KWIKPEN) UNITS IN 100 unit/mL IN THE (70-30) EVENING injection Insulin 2021-0 Yes [id number] INJECT 28 [facility] NPH-Regular 6-05 9101 UNITS IN [facility]y of Human Rec 00:00: THE IN THE [place] (HUMULIN 00 MORNING Medical 70/30 U-100 AND 25 Branch KWIKPEN) UNITS IN 100 unit/mL IN THE (70-30) EVENING injection Insulin 2021-0 Yes [id number] INJECT 28 [facility] NPH-Regular 6-05 9101 UNITS IN ity of Human Rec 00:00: THE IN THE [place] (HUMULIN 00 MORNING Medical 70/30 U-100 AND 25 Branch KWIKPEN) UNITS IN 100 unit/mL IN THE (70-30) EVENING injection Insulin 2021-0 Yes [id number] INJECT 28 [facility] NPH-Regular 6-05 9101 UNITS IN [facility]y of Human Rec 00:00: THE IN THE [place] (HUMULIN 00 MORNING Medical 70/30 U-100 AND 25 Branch KWIKPEN) UNITS IN 100 unit/mL IN THE (70-30) EVENING injection Insulin 2021-0 Yes [id number] INJECT 28 [facility] NPH-Regular 6-05 9101 UNITS IN [facility] of Human Rec 00:00: THE IN THE [place] (HUMULIN 00 MORNING Medical 70/30 U-100 AND 25 Branch KWIKPEN) UNITS IN 100 unit/mL IN THE (70-30) EVENING injection Insulin 2021-0 Yes [id number] INJECT 28 [facility] NPH-Regular 6-05 9101 UNITS IN [facility] of Human Rec 00:00: THE IN THE [place] (HUMULIN 00 MORNING Medical 70/30 U-100 AND 25 Branch KWIKPEN) UNITS IN 100 unit/mL IN THE (70-30) EVENING injection Insulin 2021-0 Yes [id number] INJECT 28 [facility] NPH-Regular 6-05 9101 UNITS IN [facility] of Human Rec 00:00: THE IN THE [place] (HUMULIN 00 MORNING Medical 70/30 U-100 AND 25 Branch KWIKPEN) UNITS IN 100 unit/mL IN THE (70-30) EVENING injection Insulin 2021-0 Yes [id number] INJECT 28 [facility] NPH-Regular 6-05 9101 UNITS IN [facility] of Human Rec 00:00: THE IN THE [place] (HUMULIN 00 MORNING Medical 70/30 U-100 AND 25 Branch KWIKPEN) UNITS IN 100 unit/mL IN THE (70-30) EVENING injection Insulin 2021-0 Yes [id number] INJECT 28 [facility] NPH-Regular 6-05 9101 UNITS IN [facility] of Human Rec 00:00: THE IN THE [place] (HUMULIN 00 MORNING Medical 70/30 U-100 AND 25 Branch KWIKPEN) UNITS IN 100 unit/mL IN THE (70-30) EVENING injection Insulin 2021-0 Yes [id number] INJECT 28 [facility] NPH-Regular 6-05 9101 UNITS IN [facility] of Human Rec 00:00: THE IN THE [place] (HUMULIN 00 MORNING Medical 70/30 U-100 AND 25 Branch KWIKPEN) UNITS IN 100 unit/mL IN THE (70-30) EVENING injection Insulin 2021-0 Yes [id number] INJECT 28 [facility] NPH-Regular 6-05 9101 UNITS IN [facility] of Human Rec 00:00: THE IN THE [place] (HUMULIN 00 MORNING Medical 70/30 U-100 AND 25 Branch KWIKPEN) UNITS IN 100 unit/mL IN THE (70-30) EVENING injection Insulin 2021-0 Yes [id number] INJECT 28 [facility] NPH-Regular 6-05 9101 UNITS IN [facility] of Human Rec 00:00: THE IN THE [place] (HUMULIN 00 MORNING Medical 70/30 U-100 AND 25 Branch KWIKPEN) UNITS IN 100 unit/mL IN THE (70-30) EVENING injection Insulin 2021-0 Yes [id number] INJECT 28 [facility] NPH-Regular 6-05 9101 UNITS IN [facility] of Human Rec 00:00: THE IN THE [place] (HUMULIN 00 MORNING Medical 70/30 U-100 AND 25 Branch KWIKPEN) UNITS IN 100 unit/mL IN THE (70-30) EVENING injection Insulin 2021-0 Yes [id number] INJECT 28 [facility] NPH-Regular 6-05 9101 UNITS IN [facility] of Human Rec 00:00: THE IN THE [place] (HUMULIN 00 MORNING Medical 70/30 U-100 AND 25 Branch KWIKPEN) UNITS IN 100 unit/mL IN THE (70-30) EVENING injection Insulin 0 Yes [id number] INJECT 28 [facility] NPH-Regular 6-05 9101 UNITS IN [facility] of Human Rec 00:00: THE IN THE [place] (HUMULIN 00 MORNING Medical 70/30 U-100 AND 25 Branch KWIKPEN) UNITS IN 100 unit/mL IN THE (70-30) EVENING injection Insulin 0 Yes [id number] INJECT 28 [facility] NPH-Regular 6-05 9101 UNITS IN [facility] of Human Rec 00:00: THE IN THE [place] (HUMULIN 00 MORNING Medical 70/30 U-100 AND 25 Branch KWIKPEN) UNITS IN 100 unit/mL IN THE (70-30) EVENING injection Insulin Yes [id number] INJECT 28 [facility] NPH-Regular 6-05 9101 UNITS IN [facility] of Human Rec 00:00: THE IN THE [place] (HUMULIN 00 MORNING Medical 70/30 U-100 AND 25 Branch KWIKPEN) UNITS IN 100 unit/mL IN THE (70-30) EVENING injection Insulin 0 Yes [id number] INJECT 28 [facility] NPH-Regular 6-05 9101 UNITS IN [facility] of Human Rec 00:00: THE IN THE [place] (HUMULIN 00 MORNING Medical 70/30 U-100 AND 25 Branch KWIKPEN) UNITS IN 100 unit/mL IN THE (70-30) EVENING injection Insulin 2021- No [id number] INJECT 28 [facility] NPH-Regular 6-05 - 9101 UNITS IN ity of Human Rec 00:00: 00:00 THE IN THE [place] (HUMULIN 00 :00 MORNING Medical 70/30 U-100 AND 25 Branch KWIKPEN) UNITS IN 100 unit/mL IN THE (70-30) EVENING injection Insulin 2021-0 2021- No [id number] INJECT 28 [facility] NPH-Regular 6-05 11-04 9101 UNITS IN ity of Human Rec 00:00: 00:00 THE IN THE [place] (HUMULIN 00 :00 MORNING Medical 70/30 U-100 AND 25 Branch KWIKPEN) UNITS IN 100 unit/mL IN THE (70-30) EVENING injection LISINOPRIL Yes TAKE 1 [facility] rs 10 mg 5-17 TABLET BY ity of tablet 00:00: MOUTH ONCE DAILY Medical Branch Insulin Yes USE TO [facility] [place], 5-17 INJECT ity of Disposable, 00:00: INSULIN 2 [place] (BD 00 TIMES Medical ULTRAFINE DAILY. Branch III MINI DX:E11.65 PEN) 31 gauge x 3/16" Ndle LISINOPRIL Yes TAKE 1 [facility] rs 10 mg 5-17 TABLET BY ity of tablet 00:00: MOUTH ONCE DAILY Medical Branch Insulin 0 Yes USE TO [facility] [place], 5-17 INJECT ity of Disposable, 00:00: INSULIN 2 [place] (BD 00 TIMES Medical ULTRAFINE DAILY. Branch III MINI DX:E11.65 PEN) 31 gauge x 3/16" Ndle LISINOPRIL 0 Yes TAKE 1 [facility] rs 10 mg 5-17 TABLET BY ity of tablet 00:00: MOUTH ONCE DAILY Medical Branch Insulin Yes USE TO [facility] [place], 5-17 INJECT ity of Disposable, 00:00: INSULIN 2 [place] (BD 00 TIMES Medical ULTRAFINE DAILY. Branch III MINI DX:E11.65 PEN) 31 gauge x 3/16" Ndle LISINOPRIL 0 Yes TAKE 1 [facility] rs 10 mg 5-17 TABLET BY ity of tablet 00:00: MOUTH ONCE DAILY Medical Branch Insulin Yes USE TO [facility] [place], 5-17 INJECT ity of Disposable, 00:00: INSULIN 2 [place] (BD 00 TIMES Medical ULTRAFINE DAILY. Branch III MINI DX:E11.65 PEN) 31 gauge x 3/16" Ndle LISINOPRIL 0 Yes TAKE 1 [facility] rs 10 mg 5-17 TABLET BY ity of tablet 00:00: MOUTH ONCE DAILY Medical Branch Insulin 0 Yes USE TO [facility] [place], 5-17 INJECT ity of Disposable, 00:00: INSULIN 2 [place] (BD 00 TIMES Medical ULTRAFINE DAILY. Branch III MINI DX:E11.65 PEN) 31 gauge x 3/16" Ndle LISINOPRIL 0 Yes TAKE 1 [facility] rs 10 mg 5-17 TABLET BY ity of tablet 00:00: MOUTH ONCE DAILY Medical Branch Insulin 2022-0 Yes USE TO [facility], 5-17 INJECT ity of Disposable, 00:00: INSULIN 2 [place] (BD 00 TIMES Medical ULTRAFINE DAILY. Branch III MINI DX:E11.65 PEN) 31 gauge x 3/16" Ndle LISINOPRIL Yes TAKE 1 [facility] rs 10 mg 5-17 TABLET BY ity of tablet 00:00: MOUTH ONCE DAILY Medical Branch Insulin Yes USE TO [facility] [place], 5-17 INJECT ity of Disposable, 00:00: INSULIN 2 [place] (BD 00 TIMES Medical ULTRAFINE DAILY. Branch III MINI DX:E11.65 PEN) 31 gauge x 3/16" Ndle LISINOPRIL 0 Yes TAKE 1 [facility] rs 10 mg 5-17 TABLET BY ity of tablet 00:00: MOUTH ONCE DAILY Medical Branch Insulin Yes USE TO [facility] [place], 5-17 INJECT ity of Disposable, 00:00: INSULIN 2 [place] (BD 00 TIMES Medical ULTRAFINE DAILY. Branch III MINI DX:E11.65 PEN) 31 gauge x 3/16" Ndle LISINOPRIL 0 Yes TAKE 1 [facility] rs 10 mg 5-17 TABLET BY ity of tablet 00:00: MOUTH ONCE DAILY Medical Branch Insulin Yes USE TO [facility] [place], 5-17 INJECT ity of Disposable, 00:00: INSULIN 2 [place] (BD 00 TIMES Medical ULTRAFINE DAILY. Branch III MINI DX:E11.65 PEN) 31 gauge x 3/16" Ndle LISINOPRIL 0 Yes TAKE 1 [facility] rs 10 mg 5-17 TABLET BY ity of tablet 00:00: MOUTH ONCE DAILY Medical Branch Insulin 0 Yes USE TO [facility] [place], 5-17 INJECT ity of Disposable, 00:00: INSULIN 2 [place] (BD 00 TIMES Medical ULTRAFINE DAILY. Branch III MINI DX:E11.65 PEN) 31 gauge x 3/16" Ndle LISINOPRIL 0 Yes TAKE 1 [facility] rs 10 mg 5-17 TABLET BY ity of tablet 00:00: MOUTH ONCE 00 DAILY Medical Branch Insulin 0 Yes USE TO [facility] [place], 5-17 INJECT ity of Disposable, 00:00: INSULIN 2 [place] (BD 00 TIMES Medical ULTRAFINE DAILY. Branch III MINI DX:E11.65 PEN) 31 gauge x 3/16" Ndle LISINOPRIL 0 Yes TAKE 1 [facility] rs 10 mg 5-17 TABLET BY ity of tablet 00:00: MOUTH ONCE [place] 00 DAILY Medical Branch Insulin 0 Yes USE TO [facility] [place], 5-17 INJECT ity of Disposable, 00:00: INSULIN 2 [place] (BD 00 TIMES Medical ULTRAFINE DAILY. Branch III MINI DX:E11.65 PEN) 31 gauge x 3/16" Ndle LISINOPRIL 0 Yes TAKE 1 [facility] rs 10 mg 5-17 TABLET BY ity of tablet 00:00: MOUTH ONCE [place] 00 DAILY Medical Branch Insulin Yes USE TO [facility] [place], 5-17 INJECT ity of Disposable, 00:00: INSULIN 2 [place] (BD 00 TIMES Medical ULTRAFINE DAILY. Branch III MINI DX:E11.65 PEN) 31 gauge x 3/16" Ndle LISINOPRIL 0 Yes TAKE 1 [facility] rs 10 mg 5-17 TABLET BY ity of tablet 00:00: MOUTH ONCE [place] DAILY Medical Branch Insulin 0 Yes USE TO [facility] [place], 5-17 INJECT ity of Disposable, 00:00: INSULIN 2 [place] (BD 00 TIMES Medical ULTRAFINE DAILY. Branch III MINI DX:E11.65 PEN) 31 gauge x 3/16" Ndle LISINOPRIL 2021-0 Yes TAKE 1 [facility] rs 10 mg 5-17 TABLET BY ity of tablet 00:00: MOUTH ONCE DAILY Medical Branch Insulin 0 Yes USE TO [facility] [place], 5-17 INJECT ity of Disposable, 00:00: INSULIN 2 [place] (BD 00 TIMES Medical ULTRAFINE DAILY. Branch III MINI DX:E11.65 PEN) 31 gauge x 3/16" Ndle LISINOPRIL 2021-0 Yes TAKE 1 [facility] rs 10 mg 5-17 TABLET BY ity of tablet 00:00: MOUTH ONCE [place] 00 DAILY Medical Branch Insulin 0 Yes USE TO [facility] [place], 5-17 INJECT ity of Disposable, 00:00: INSULIN 2 [place] (BD 00 TIMES Medical ULTRAFINE DAILY. Branch III MINI DX:E11.65 PEN) 31 gauge x 3/16" Ndle LISINOPRIL 2021-0 Yes TAKE 1 [facility] rs 10 mg 5-17 TABLET BY ity of tablet 00:00: MOUTH ONCE DAILY Medical Branch Insulin 2021-0 Yes USE TO [facility] [place], 5-17 INJECT ity of Disposable, 00:00: INSULIN 2 [place] (BD 00 TIMES Medical ULTRAFINE DAILY. Branch III MINI DX:E11.65 PEN) 31 gauge x 3/16" Ndle LISINOPRIL 2021-0 Yes TAKE 1 [facility] rs 10 mg 5-17 TABLET BY ity of tablet 00:00: MOUTH ONCE DAILY Medical Branch Insulin 2021-0 Yes USE TO [facility] [place], 5-17 INJECT ity of Disposable, 00:00: INSULIN 2 [place] (BD 00 TIMES Medical ULTRAFINE DAILY. Branch III MINI DX:E11.65 PEN) 31 gauge x 3/16" Ndle LISINOPRIL 2021-0 Yes TAKE 1 [facility] 10 mg 5-17 TABLET BY ity of tablet 00:00: MOUTH ONCE DAILY Medical Branch LISINOPRIL 2021-0 Yes TAKE 1 [facility] 10 mg 5-17 TABLET BY ity of tablet 00:00: MOUTH ONCE DAILY Medical Branch LISINOPRIL 2021-0 Yes TAKE 1 [facility] 10 mg 5-17 TABLET BY ity of tablet 00:00: MOUTH ONCE DAILY Medical Branch LISINOPRIL 2021-0 Yes TAKE 1 [facility] 10 mg 5-17 TABLET BY ity of tablet 00:00: MOUTH ONCE DAILY Medical Branch LISINOPRIL 2021-0 Yes TAKE 1 [facility] 10 mg 5-17 TABLET BY ity of tablet 00:00: MOUTH ONCE DAILY Medical Branch LISINOPRIL 2021-0 Yes TAKE 1 [facility] 10 mg 5-17 TABLET BY ity of tablet 00:00: MOUTH ONCE DAILY Medical Branch LISINOPRIL 2021-0 Yes TAKE 1 [facility] 10 mg 5-17 TABLET BY ity of tablet 00:00: MOUTH ONCE DAILY Medical Branch LISINOPRIL 202-0 Yes TAKE 1 [facility] 10 mg 5-17 TABLET BY ity of tablet 00:00: MOUTH ONCE DAILY Medical Branch LISINOPRIL 2021-0 Yes TAKE 1 [facility] 10 mg 5-17 TABLET BY ity of tablet 00:00: MOUTH ONCE DAILY Medical Branch LISINOPRIL 2022-0 Yes TAKE 1 [facility] 10 mg 5-17 TABLET BY ity of tablet 00:00: MOUTH ONCE DAILY Medical Branch LISINOPRIL 0 Yes TAKE 1 [facility] 10 mg 5-17 TABLET BY ity of tablet 00:00: MOUTH ONCE DAILY Medical Branch LISINOPRIL 0 Yes TAKE 1 [facility] 10 mg 5-17 TABLET BY ity of tablet 00:00: MOUTH ONCE DAILY Medical Branch LISINOPRIL 0 Yes TAKE 1 [facility] 10 mg 5-17 TABLET BY ity of tablet 00:00: MOUTH ONCE DAILY Medical Branch LISINOPRIL 0 Yes TAKE 1 [facility] 10 mg 5-17 TABLET BY ity of tablet 00:00: MOUTH ONCE DAILY Medical Branch LISINOPRIL 0 Yes TAKE 1 [facility] 10 mg 5-17 TABLET BY ity of tablet 00:00: MOUTH ONCE DAILY Medical Branch LISINOPRIL 0 Yes TAKE 1 [facility] 10 mg 5-17 TABLET BY ity of tablet 00:00: MOUTH ONCE DAILY Medical Branch LISINOPRIL 0 Yes TAKE 1 [facility] 10 mg 5-17 TABLET BY ity of tablet 00:00: MOUTH ONCE DAILY Medical Branch LISINOPRIL 0 Yes TAKE 1 [facility] 10 mg 5-17 TABLET BY ity of tablet 00:00: MOUTH ONCE DAILY Medical Branch LISINOPRIL 0 Yes TAKE 1 [facility] 10 mg 5-17 TABLET BY ity of tablet 00:00: MOUTH ONCE DAILY Medical Branch LISINOPRIL 0 Yes TAKE 1 [facility] 10 mg 5-17 TABLET BY ity of tablet 00:00: MOUTH ONCE DAILY Medical Branch LISINOPRIL 0 Yes TAKE 1 [facility] 10 mg 5-17 TABLET BY ity of tablet 00:00: MOUTH ONCE DAILY Medical Branch LISINOPRIL 0 2022- No TAKE 1 [facility] ers 10 mg 5-17 -17 TABLET BY ity of tablet 00:00: 00:00 M[place]TH ONCE [place] 00 :00 DAILY [facility] Branch Insulin 0 2021- No USE TO [facility], -02-26 INJECT ity of Disposable, 00:00: 00:00 INSULIN 2 [place] (BD 00 :00 TIMES Medical ULTRAFINE DAILY. Branch III MINI DX:E11.65 PEN) 31 gauge x 3/16" Ndle Insulin 2021- No USE TO [facility] [place], 5-17 02-26 INJECT ity of Disposable, 00:00: 00:00 INSULIN 2 [place] (BD 00 :00 TIMES Medical ULTRAFINE DAILY. 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) E10.65 Misc Blood-Gluco 2022-0 Yes Use as [...] Br anch ) Barb dx E10.65 Blood-Gluco 202-0 Yes Use as Univ ers se 4-06 directed ity of Meter,Keshawn 00:00: to check [place] nuous 00 blood Medical (DEXCOM G6 sugars dx 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) E10.65 Mis Blood-Gluco 2022-0 Yes Use as Univ ers [...] Medical (DEXCOM G6 sugars dx 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) E10.65 Mis Blood-Gluco 2022-0 Yes Use as Univ ers [...] Medical (DEXCOM G6 sugars dx 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) E10.65 Misc Blood-Gluco 2022-0 Yes Use as [...] Medical (DEXCOM G6 sugars dx 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) E10.65 Misc Blood-Gluco 202-0 Yes Use as Univ ers se Sensor [...] Medical (DEXCOM G6 sugars dx 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) E10.65 Misc Blood-Gluco 2022-0 Yes Use as [...] Medical (DEXCOM G6 sugars dx 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) E10.65 Misc Blood-Gluco 2022-0 Yes Use as [...] Medical (DEXCOM G6 sugars dx 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) E10.65 Misc Blood-Gluco 2022-0 Yes Use as [...] Medical (DEXCOM G6 sugars dx 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) E10.65 Misc Blood-Gluco 2022-0 Yes Use as [...] Medical (DEXCOM G6 sugars dx 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) E10.65 Misc Blood-Gluco 2022-0 Yes Use as [...] Medical (DEXCOM G6 sugars dx 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) E10.65 Misc Blood-Gluco 2022-0 Yes Use as [...] Br anch ) Barb dx E10.65 Blood-Gluco 202-0 Yes Use as Univ ers se 4-06 directed ity of Meter,Keshawn 00:00: to check [place] nuous 00 blood Medical (DEXCOM G6 sugars dx 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) E10.65 Mis Blood-Gluco 2022-0 Yes Use as Univ ers [...] Medical (DEXCOM G6 sugars dx 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) E10.65 Mis Blood-Gluco 2022-0 Yes Use as Univ ers [...] Medical (DEXCOM G6 sugars dx 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) E10.65 Misc Blood-Gluco 2022-0 Yes Use as [...] Medical (DEXCOM G6 sugars dx 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) E10.65 Misc Blood-Gluco 202-0 Yes Use as Univ ers se Sensor [...] Medical (DEXCOM G6 sugars dx 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) E10.65 Misc Blood-Gluco 2022-0 Yes Use as [...] Medical (DEXCOM G6 sugars dx 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) E10.65 Misc Blood-Gluco 2022-0 Yes Use as [...] Medical (DEXCOM G6 sugars dx 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) E10.65 Misc Blood-Gluco 2022-0 Yes Use as [...] Medical (DEXCOM G6 sugars dx 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) E10.65 Misc Blood-Gluco 2022-0 Yes Use as [...] Medical (DEXCOM G6 sugars dx 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) E10.65 Misc Blood-Gluco 2022-0 Yes Use as [...] Medical (DEXCOM G6 sugars dx 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) E10.65 Misc Blood-Gluco 2022-0 Yes Use as [...] Br anch ) Barb dx E10.65 Blood-Gluco 202-0 Yes Use as Univ ers se 4-06 directed ity of Meter,[place] 00:00: [place] blood Medical (DEXCOM G6 sugars dx 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) E10.65 Mis Blood-Gluco 2022-0 Yes Use as Univ ers [...] Medical (DEXCOM G6 sugars dx 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) E10.65 Mis Blood-Gluco 2022-0 Yes Use as Univ ers [...] Medical (DEXCOM G6 sugars dx 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) E10.65 Misc Blood-Gluco 2022-0 Yes Use as [...] Medical (DEXCOM G6 sugars dx 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) E10.65 Misc Blood-Gluco 202-0 Yes Use as Univ ers se Sensor [...] Medical (DEXCOM G6 sugars dx 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) E10.65 Misc Blood-Gluco 2022-0 Yes Use as [...] Medical (DEXCOM G6 sugars dx 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) E10.65 Misc Blood-Gluco 2022-0 Yes Use as [...] Medical (DEXCOM G6 sugars dx 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) E10.65 Misc Blood-Gluco 2022-0 Yes Use as [...] Medical (DEXCOM G6 sugars dx 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) E10.65 Misc Blood-Gluco 2022-0 Yes Use as [...] Medical (DEXCOM G6 sugars dx 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) E10.65 Misc Blood-Gluco 2022-0 Yes Use as [...] Medical (DEXCOM G6 sugars dx 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) E10.65 Misc Blood-Gluco 2022-0 Yes Use as [...] Br anch ) Barb dx E10.65 Blood-Gluco 202-0 Yes Use as Univ ers se 4-06 directed ity of [place] 00:[place]: [place] n[place] 00 blood Medical (DEXCOM G6 sugars dx 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) E10.65 Mis Blood-Gluco 2022-0 Yes Use as Univ ers [...] Medical (DEXCOM G6 sugars dx 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) E10.65 Mis Blood-Gluco 2022-0 Yes Use as Univ ers se Sensor 4-06 directed ity of (DEXCOM G6 00:00: to check [place] SENSOR) 00 blood Medical Barb sugars [...] Medical (DEXCOM G6 sugars dx 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) E10.65 Misc Blood-Gluco 2022-0 Yes Use as [...] Medical (DEXCOM G6 sugars dx 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) E10.65 Misc Blood-Gluco 202-0 Yes Use as Univ ers se Sensor [...] Medical (DEXCOM G6 sugars dx 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) E10.65 Misc Blood-Gluco 2022-0 Yes Use as [...] Univ ers se 4-06 directed ity of [place] 00:[place] 00 blood Medical (DEXCOM G6 sugars dx 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) E10.65 Misc Blood-Gluco 2022-0 Yes Use as Univ ers se Sensor 4-06 directed ity of (DEXCOM G6 00:00: to check [place] SENSOR) 00 blood Medical Barb sugars [...] Medical (DEXCOM G6 sugars dx 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) E10.65 Misc Blood-Gluco 2022-0 Yes Use as [...] Medical (DEXCOM G6 sugars dx 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) E10.65 Misc Blood-Gluco 2022-0 Yes Use as [...] Medical (DEXCOM G6 sugars dx 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) E10.65 Misc Blood-Gluco 2022-0 Yes Use as [...] Medical (DEXCOM G6 sugars dx 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) E10.65 Misc Blood-Gluco 2022-0 Yes Use as [...] Br anch ) Barb dx E10.65 Blood-Gluco 202-0 Yes Use as Univ ers se 4-06 directed ity of [place] 00:[place]: [place] 00 blood Medical (DEXCOM G6 sugars dx 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) E10.65 Mis Blood-Gluco 2022-0 Yes Use as Univ ers [...] Medical (DEXCOM G6 sugars dx 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) E10.65 Mis Blood-Gluco 2022-0 Yes Use as Univ ers [...] Medical (DEXCOM G6 sugars dx 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) E10.65 Misc Blood-Gluco 2022-0 Yes Use as [...] Medical (DEXCOM G6 sugars dx 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) E10.65 Misc Blood-Gluco 202-0 Yes Use as Univ ers se Sensor [...] Medical (DEXCOM G6 sugars dx 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) E10.65 Misc Blood-Gluco 2022-0 Yes Use as [...] Medical (DEXCOM G6 sugars dx 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) E10.65 Misc Blood-Gluco 2022-0 Yes Use as [...] Medical (DEXCOM G6 sugars dx 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) E10.65 Misc Blood-Gluco 2022-0 Yes Use as [...] Medical (DEXCOM G6 sugars dx 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) E10.65 Misc Blood-Gluco 2022-0 Yes Use as [...] Medical (DEXCOM G6 sugars dx 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) E10.65 Misc Blood-Gluco 2022-0 Yes Use as [...] Medical (DEXCOM G6 sugars dx 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) E10.65 Misc Blood-Gluco 2022-0 Yes Use as [...] Br anch ) Barb dx E10.65 Blood-Gluco 202-0 Yes Use as Univ ers se 4-06 directed ity of [place] 00:[place]: [place] 00 blood Medical (DEXCOM G6 sugars dx 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) E10.65 Mis Blood-Gluco 2022-0 Yes Use as Univ ers [...] Medical (DEXCOM G6 sugars dx 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) E10.65 Mis Blood-Gluco 2022-0 Yes Use as Univ ers [...] Medical (DEXCOM G6 sugars dx 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) E10.65 Mis Blood-Gluco 2022-0 Yes Use as Univ ers [...] Medical (DEXCOM G6 sugars dx 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) E10.65 [facility] [place] Blood-Gluco 202-0 Yes Use as Univ ers se Sensor 4-06 directed ity of (DEXCOM G6 00:00: to check [place] as SENSOR) 00 blood Medical Barb sugars for Branch dx E10.65 Blood-Gluco 202-0 Yes Use as Univ ers se 4-06 directed ity of [place] 00:[place]: [place] (DEXCOM G6 00 blood Medical TRANSMITTER sugars for Br anch ) Barb dx E10.65 Blood-Gluco 2021-0 Yes Use as Univ ers se 4-06 directed ity of [place] 00:[place]: [place] 00 blood Medical (DEXCOM G6 sugars dx 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) E10.65 [facility] [place] Blood-Gluco 2022-0 2022- No Use as Uni vers se Sensor 07-29-12 directed ity o f (DEXCOM G6 00:00: [place] S[place] 00 :00 blood Medical Barb sugars for Branch dx E10.65 Blood-Gluco 2022-0 3- No Use as Uni vers se 4-09 26-12 directed ity of Transmitter 00:00: 00:00 [place] (DEXCOM G6 00 :00 blood Medical TRANSMITTER sugars for Br anch ) Barb dx E10.65 Blood-Gluco 2022-0 3- No Use as Uni vers se 4-12 directed ity of [place],Keshawn 00:00: 00:00 [place] n[place] 00 :00 blood Medical (DEXCOM G6 sugars dx 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) E10.65 Misc flash 2022-0 Yes [id number] 1{kit} 1 Kit Un rl glucose 4-04 9101 every 14 ity of sensor 00:00: (fourteen) [place] (FREESTYLE 00 days. Medical DOM 2 E10.65 Branch SENSOR) Kit flash 2022-0 Yes [id number] 1{kit} 1 Kit Un rl glucose 4-04 9101 every 14 ity of sensor 00:00: (fourteen) [place] (FREESTYLE 00 days. Medical DOM 2 E10.65 Branch SENSOR) Kit flash 2022-0 Yes [id number] 1{kit} 1 Kit Un rl glucose 4-04 9101 every 14 ity of sensor 00:00: (fourteen) [place] (FREESTYLE 00 days. Medical DOM 2 E10.65 Branch SENSOR) Kit flash 2022-0 Yes [id number] 1{kit} 1 Kit Un rl glucose 4-04 9101 every 14 ity of sensor 00:00: (fourteen) [place] (FREESTYLE 00 days. Medical DOM 2 E10.65 Branch SENSOR) Kit flash 2022-0 Yes [id number] 1{kit} 1 Kit Un rl glucose 4-04 9101 every 14 ity of sensor 00:00: (fourteen) [place] (FREESTYLE 00 days. Medical DOM 2 E10.65 Branch SENSOR) Kit flash 2022-0 Yes [id number] 1{kit} 1 Kit Un rl glucose 4-04 9101 every 14 ity of sensor 00:00: (fourteen) [place] (FREESTYLE 00 days. Medical DOM 2 E10.65 Branch SENSOR) Kit flash 2022-0 Yes [id number] 1{kit} 1 Kit Un rl glucose 4-04 9101 every 14 ity of sensor 00:00: (fourteen) [place] (FREESTYLE 00 days. Medical DOM 2 E10.65 Branch SENSOR) Kit flash 2022-0 Yes [id number] 1{kit} 1 Kit Un rl glucose 4-04 9101 every 14 ity of sensor 00:00: (fourteen) [place] (FREESTYLE 00 days. Medical DOM 2 E10.65 Branch SENSOR) Kit flash 2022-0 Yes [id number] 1{kit} 1 Kit Un rl glucose 4-04 9101 every 14 ity of sensor 00:00: (fourteen) [place] (FREESTYLE 00 days. Medical DOM 2 E10.65 Branch SENSOR) Kit flash 2022-0 Yes [id number] 1{kit} 1 Kit Un rl glucose 4-04 9101 every 14 ity of sensor 00:00: (fourteen) [place] (FREESTYLE 00 days. Medical DOM 2 E10.65 Branch SENSOR) Kit flash 2022-0 Yes [id number] 1{kit} 1 Kit Un rl glucose 4-04 9101 every 14 ity of sensor 00:00: (fourteen) [place] (FREESTYLE 00 days. Medical DOM 2 E10.65 Branch SENSOR) Kit flash 2022-0 Yes [id number] 1{kit} 1 Kit Un rl glucose 4-04 9101 every 14 ity of sensor 00:00: (fourteen) [place] (FREESTYLE 00 days. Medical DOM 2 E10.65 Branch SENSOR) Kit flash 2022-0 Yes [id number] 1{kit} 1 Kit Un rl glucose 4-04 9101 every 14 ity of sensor 00:00: (fourteen) [place] (FREESTYLE 00 days. Medical DOM 2 E10.65 Branch SENSOR) Kit flash 2022-0 Yes [id number] 1{kit} 1 Kit Un rl glucose 4-04 9101 every 14 ity of sensor 00:00: (fourteen) [place] (FREESTYLE 00 days. Medical DOM 2 E10.65 Branch SENSOR) Kit flash 2022-0 Yes [id number] 1{kit} 1 Kit Un rl glucose 4-04 9101 every 14 ity of sensor 00:00: (fourteen) [place] (FREESTYLE 00 days. Medical DOM 2 E10.65 Branch SENSOR) Kit flash 2022-0 Yes [id number] 1{kit} 1 Kit Un rl glucose 4-04 9101 every 14 ity of sensor 00:00: (fourteen) [place] (FREESTYLE 00 days. Medical DOM 2 E10.65 Branch SENSOR) Kit flash 2022-0 Yes [id number] 1{kit} 1 Kit Un rl glucose 4-04 9101 every 14 ity of sensor 00:00: (fourteen) [place] (FREESTYLE 00 days. Medical DOM 2 E10.65 Branch SENSOR) Kit flash 2022-0 Yes [id number] 1{kit} 1 Kit Un rl glucose 4-04 9101 every 14 ity of sensor 00:00: (fourteen) [place] (FREESTYLE 00 days. Medical DOM 2 E10.65 Branch SENSOR) Kit flash 2022-0 Yes [id number] 1{kit} 1 Kit Un rl glucose 4-04 9101 every 14 ity of sensor 00:00: (fourteen) [place] (FREESTYLE 00 days. Medical DOM 2 E10.65 Branch SENSOR) Kit flash 2022-0 Yes [id number] 1{kit} 1 Kit Un rl glucose 4-04 9101 every 14 ity of sensor 00:00: (fourteen) [place] (FREESTYLE 00 days. Medical DOM 2 E10.65 Branch SENSOR) Kit flash 2022-0 Yes [id number] 1{kit} 1 Kit Un rl glucose 4-04 9101 every 14 ity of sensor 00:00: (fourteen) [place] (FREESTYLE 00 days. Medical DOM 2 E10.65 Branch SENSOR) Kit flash 2022-0 Yes [id number] 1{kit} 1 Kit Un rl glucose 4-04 9101 every 14 ity of sensor 00:00: (fourteen) [place] (FREESTYLE 00 days. Medical DOM 2 E10.65 Branch SENSOR) Kit flash 2022-0 Yes [id number] 1{kit} 1 Kit Un rl glucose 4-04 9101 every 14 ity of sensor 00:00: (fourteen) [place] (FREESTYLE 00 days. Medical DOM 2 E10.65 Branch SENSOR) Kit flash 2022-0 Yes [id number] 1{kit} 1 Kit Un rl glucose 4-04 9101 every 14 ity of sensor 00:00: (fourteen) [place] (FREESTYLE 00 days. Medical DOM 2 E10.65 Branch SENSOR) Kit flash 2022-0 Yes [id number] 1{kit} 1 Kit Un rl glucose 4-04 9101 every 14 ity of sensor 00:00: (fourteen) [place] (FREESTYLE 00 days. Medical DOM 2 E10.65 Branch SENSOR) Kit flash 2022-0 Yes [id number] 1{kit} 1 Kit Un rl glucose 4-04 9101 every 14 ity of sensor 00:00: (fourteen) [place] (FREESTYLE 00 days. Medical DOM 2 E10.65 Branch SENSOR) Kit flash 2022-0 Yes [id number] 1{kit} 1 Kit Un rl glucose 4-04 9101 every 14 ity of sensor 00:00: (fourteen) [place] (FREESTYLE 00 days. Medical DOM 2 E10.65 Branch SENSOR) Kit flash 2022-0 Yes [id number] 1{kit} 1 Kit Un rl glucose 4-04 9101 every 14 ity of sensor 00:00: (fourteen) [place] (FREESTYLE 00 days. Medical DOM 2 E10.65 Branch SENSOR) Kit flash 2022-0 Yes [id number] 1{kit} 1 Kit Un rl glucose 4-04 9101 every 14 ity of sensor 00:00: (fourteen) [place] (FREESTYLE 00 days. Medical DOM 2 E10.65 Branch SENSOR) Kit flash 2022-0 Yes [id number] 1{kit} 1 Kit Un rl glucose 4-04 9101 every 14 ity of sensor 00:00: (fourteen) [place] (FREESTYLE 00 days. Medical DOM 2 E10.65 Branch SENSOR) Kit flash 2022-0 Yes [id number] 1{kit} 1 Kit Un rl glucose 4-04 9101 every 14 ity of sensor 00:00: (fourteen) [place] (FREESTYLE 00 days. Medical DOM 2 E10.65 Branch SENSOR) Kit flash 2022-0 Yes [id number] 1{kit} 1 Kit Un rl glucose 4-04 9101 every 14 ity of sensor 00:00: (fourteen) [place] (FREESTYLE 00 days. Medical DOM 2 E10.65 Branch SENSOR) Kit flash 2022-0 Yes [id number] 1{kit} 1 Kit Un rl glucose 4-04 9101 every 14 ity of sensor 00:00: (fourteen) [place] (FREESTYLE 00 days. Medical DOM 2 E10.65 Branch SENSOR) Kit flash 2022-0 Yes [id number] 1{kit} 1 Kit Un rl glucose 4-04 9101 every 14 ity of sensor 00:00: (fourteen) [place] (FREESTYLE 00 days. Medical DOM 2 E10.65 Branch SENSOR) Kit flash 2022-0 Yes [id number] 1{kit} 1 Kit Un rl glucose 4-04 9101 every 14 ity of sensor 00:00: (fourteen) [place] (FREESTYLE 00 days. Medical DOM 2 E10.65 Branch SENSOR) Kit flash 2022-0 Yes [id number] 1{kit} 1 Kit Un rl glucose 4-04 9101 every 14 ity of sensor 00:00: (fourteen) [place] (FREESTYLE 00 days. Medical DOM 2 E10.65 Branch SENSOR) Kit flash 2022-0 Yes [id number] 1{kit} 1 Kit Un rl glucose 4-04 9101 every 14 ity of sensor 00:00: (fourteen) [place] (FREESTYLE 00 days. Medical DOM 2 E10.65 Branch SENSOR) Kit flash 2022-0 Yes [id number] 1{kit} 1 Kit Un rl glucose 4-04 9101 every 14 ity of sensor 00:00: (fourteen) [place] (FREESTYLE 00 days. Medical DOM 2 E10.65 Branch SENSOR) Kit flash 2022-0 Yes [id number] 1{kit} 1 Kit Un rl glucose 4-04 9101 every 14 ity of sensor 00:00: (fourteen) [place] (FREESTYLE 00 days. Medical DOM 2 E10.65 Branch SENSOR) Kit flash 2022-0 Yes [id number] 1{kit} 1 Kit Un rl glucose 4-04 9101 every 14 ity of sensor 00:00: (fourteen) [place] (FREESTYLE 00 days. Medical DOM 2 E10.65 Branch SENSOR) Kit flash 2022-0 Yes [id number] 1{kit} 1 Kit Un rl glucose 4-04 9101 every 14 ity of sensor 00:00: (fourteen) [place] (FREESTYLE 00 days. Medical DOM 2 E10.65 Branch SENSOR) Kit flash 2022-0 Yes [id number] 1{kit} 1 Kit Un rl glucose 4-04 9101 every 14 ity of sensor 00:00: (fourteen) [place] (FREESTYLE 00 days. Medical DOM 2 E10.65 Branch SENSOR) Kit flash 2022-0 Yes [id number] 1{kit} 1 Kit Un rl glucose 4-04 9101 every 14 ity of sensor 00:00: (fourteen) [place] (FREESTYLE 00 days. Medical DOM 2 E10.65 Branch SENSOR) Kit flash 2022-0 Yes [id number] 1{kit} 1 Kit Un rl glucose 4-04 9101 every 14 ity of sensor 00:00: (fourteen) [place] (FREESTYLE 00 days. Medical DOM 2 E10.65 Branch SENSOR) Kit flash 2022-0 Yes [id number] 1{kit} 1 Kit Un rl glucose 4-04 9101 every 14 ity of sensor 00:00: (fourteen) [place] (FREESTYLE 00 days. Medical DOM 2 E10.65 Branch SENSOR) Kit flash 2022-0 Yes [id number] 1{kit} 1 Kit Un rl glucose 4-04 9101 every 14 ity of sensor 00:00: (fourteen) [place] (FREESTYLE 00 days. Medical DOM 2 E10.65 Branch SENSOR) Kit flash 2022-0 Yes [id number] 1{kit} 1 Kit Un rl glucose 4-04 9101 every 14 ity of sensor 00:00: (fourteen) [place] (FREESTYLE 00 days. Medical DOM 2 E10.65 Branch SENSOR) Kit flash 2022-0 Yes [id number] 1{kit} 1 Kit Un rl glucose 4-04 9101 every 14 ity of sensor 00:00: (fourteen) [place] (FREESTYLE 00 days. Medical DOM 2 E10.65 Branch SENSOR) Kit flash 2022-0 Yes [id number] 1{kit} 1 Kit Un rl glucose 4-04 9101 every 14 ity of sensor 00:00: (fourteen) [place] (FREESTYLE 00 days. Medical DOM 2 E10.65 Branch SENSOR) Kit flash 2022-0 Yes [id number] 1{kit} 1 Kit Un rl glucose 4-04 9101 every 14 ity of sensor 00:00: (fourteen) [place] (FREESTYLE 00 days. Medical DOM 2 E10.65 Branch SENSOR) Kit flash 2022-0 Yes [id number] 1{kit} 1 Kit Un rl glucose 4-04 9101 every 14 ity of sensor 00:00: (fourteen) [place] (FREESTYLE 00 days. Medical DOM 2 E10.65 Branch SENSOR) Kit flash 2022-0 Yes [id number] 1{kit} 1 Kit Un lr glucose 4-04 9101 every 14 ity of sensor 00:00: (fourteen) [place] (FREESTYLE 00 days. Medical DOM 2 E10.65 Branch SENSOR) Kit flash 2022-0 2023- No [id number] 1{kit} 1 Kit U nivers glucose 4-04 04-10 9101 every 14 ity of sensor 00:00: 00:[place] (fourteen[place] (FREESTYLE 00 :00 days. Medical DOM 2 E10.65 Branch SENSOR) Kit flash 2022-0 2023- No [id number] 1{kit} 1 Kit U nivers glucose 4-04 -10 9101 every 14 ity of sensor 00:00: 00:[place] (fourteen[place] (FREESTYLE 00 :00 days. Medical DOM 2 E10.65 Branch SENSOR) Kit pregabalin 2022-0 Yes [id number] 100mg Take 1 Univers 100 mg 4-02 9101 capsule by ity of capsule 00:00: mouth 2 (two) Medical times Branch daily. pregabalin 2022-0 Yes [id number] 100mg Take 1 Univers 100 mg 4-02 9101 capsule by ity of capsule 00:00: mouth 2 (two) Medical times Branch daily. pregabalin 2022-0 Yes [id number] 100mg Take 1 Univers 100 mg 4-02 9101 capsule by ity of capsule 00:00: mouth (two) Medical times Branch daily. pregabalin 2022-0 Yes [id number] 100mg Take 1 Univers 100 mg 4-02 9101 capsule by ity of capsule 00:00: mouth (two) Medical times Branch daily. pregabalin 2022-0 Yes [id number] 100mg Take 1 Univers 100 mg 4-02 9101 capsule by ity of capsule 00:00: mouth (two) Medical times Branch daily. pregabalin 2022-0 Yes [id number] 100mg Take 1 Univers 100 mg 4-02 9101 capsule by ity of capsule 00:00: mouth (two) Medical times Branch daily. pregabalin 2022-0 Yes [id number] 100mg Take 1 Univers 100 mg 4-02 9101 capsule by ity of capsule 00:00: mouth 2 (two) Medical times Branch daily. pregabalin 2022-0 Yes [id number] 100mg Take 1 Univers 100 mg 4-02 9101 capsule by ity of capsule 00:00: mouth 2 (two) Medical times Branch daily. pregabalin 2022-0 Yes [id number] 100mg Take 1 Univers 100 mg 4-02 9101 capsule by ity of capsule 00:00: mouth 2 00 (two) Medical times Branch daily. pregabalin 2022-0 2022- No [id number] 100mg Take 1 Univers 100 mg 07-25 9101 capsule by ity of capsule 00:00: 00:00 mouth 2 00 :00 (two) Medical times Branch daily. pregabalin 2022-0 2022- No [id number] 100mg Take 1 Univers 100 mg 07-25 9101 capsule by ity of capsule 00:00: 00:00 mouth 2 00 :00 (two) Medical times Branch daily. flash 2022-0 Yes [id number] 1{each} 1 Each Univers glucose 3-21 9101 daily. ity of scanning 00:00: [place] reader 00 Medical (FREESTYLE Branch DOM 2 READER) Misc flash 2022-0 Yes [id number] 1{each} 1 Each Univers glucose 3-21 9101 daily. ity of scanning 00:00: [place] reader 00 Medical (FREESTYLE Branch DOM 2 READER) Misc flash 2022-0 Yes [id number] 1{each} 1 Each Univers glucose 3-21 9101 daily. ity of scanning 00:00: [place] reader 00 Medical (FREESTYLE Branch DOM 2 READER) Misc flash 2022-0 Yes [id number] 1{each} 1 Each Univers glucose 3-21 9101 daily. ity of scanning 00:00: [place] reader 00 Medical (FREESTYLE Branch DOM 2 READER) Misc flash 2022-0 Yes [id number] 1{each} 1 Each Univers glucose 3-21 9101 daily. ity of scanning 00:00: [place] reader 00 Medical (FREESTYLE Branch DOM 2 READER) Misc flash 2022-0 Yes [id number] 1{each} 1 Each Univers glucose 3-21 9101 daily. ity of scanning 00:00: [place] reader 00 Medical (FREESTYLE Branch DOM 2 READER) Misc flash 2022-0 Yes [id number] 1{each} 1 Each Univers glucose 3-21 9101 daily. ity of scanning 00:00: [place] reader 00 Medical (FREESTYLE Branch DOM 2 READER) Misc flash 2022-0 Yes [id number] 1{each} 1 Each Univers glucose 3-21 9101 daily. ity of scanning 00:00: [place] reader 00 Medical (FREESTYLE Branch DOM 2 READER) Misc flash 2022-0 Yes [id number] 1{each} 1 Each Univers glucose 3-21 9101 daily. ity of scanning 00:00: [place] reader 00 Medical (FREESTYLE Branch DOM 2 READER) Misc flash 2022-0 Yes [id number] 1{each} 1 Each Univers glucose 3-21 9101 daily. ity of scanning 00:00: [place] reader 00 Medical (FREESTYLE Branch DOM 2 READER) Misc flash 2022-0 Yes [id number] 1{each} 1 Each Univers glucose 3-21 9101 daily. ity of scanning 00:00: [place] reader 00 Medical (FREESTYLE Branch DOM 2 READER) Misc flash 2022-0 Yes [id number] 1{each} 1 Each Univers glucose 3-21 9101 daily. ity of scanning 00:00: [place] reader 00 Medical (FREESTYLE Branch DOM 2 READER) Misc flash 2022-0 Yes [id number] 1{each} 1 Each Univers glucose 3-21 9101 daily. ity of scanning 00:00: [place] reader 00 Medical (FREESTYLE Branch DOM 2 READER) Misc flash 2022-0 Yes [id number] 1{each} 1 Each Univers glucose 3-21 9101 daily. ity of scanning 00:00: [place] reader 00 Medical (FREESTYLE Branch DOM 2 READER) Misc flash 2022-0 Yes [id number] 1{each} 1 Each Univers glucose 3-21 9101 daily. ity of scanning 00:00: [place] reader 00 Medical (FREESTYLE Branch DOM 2 READER) Misc flash 2022-0 Yes [id number] 1{each} 1 Each Univers glucose 3-21 9101 daily. 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 ity of scanning 00:00: [place] reader 00 Medical (FREESTYLE Branch DOM 2 READER) Misc flash 2022-0 Yes [id number] 1{each} 1 Each Univers glucose 3-21 9101 daily. ity of scanning 00:00: [place] reader 00 Medical (FREESTYLE Branch DOM 2 READER) Misc flash 2022-0 Yes [id number] 1{each} 1 Each Univers glucose 3-21 9101 daily. ity of scanning 00:00: [place] reader 00 Medical (FREESTYLE Branch DOM 2 READER) Misc flash 2022-0 Yes [id number] 1{each} 1 Each Univers glucose 3-21 9101 daily. ity of scanning 00:00: [place] reader 00 Medical (FREESTYLE Branch DOM 2 READER) Misc flash 2022-0 Yes [id number] 1{each} 1 Each Univers glucose 3-21 9101 daily. ity of scanning 00:00: [place] reader 00 Medical (FREESTYLE Branch DOM 2 READER) Misc flash 2022-0 Yes [id number] 1{each} 1 Each Univers glucose 3-21 9101 daily. ity of scanning 00:00: [place] reader 00 Medical (FREESTYLE Branch DOM 2 READER) Misc flash 2022-0 Yes [id number] 1{each} 1 Each Univers glucose 3-21 9101 daily. ity of scanning 00:00: [place] reader 00 Medical (FREESTYLE Branch DOM 2 READER) Misc flash 2022-0 Yes [id number] 1{each} 1 Each Univers glucose 3-21 9101 daily. ity of scanning 00:00: [place] reader 00 Medical (FREESTYLE Branch DOM 2 READER) Misc flash 2022-0 Yes [id number] 1{each} 1 Each Univers glucose 3-21 9101 daily. ity of scanning 00:00: [place] reader 00 Medical (FREESTYLE Branch DOM 2 READER) Misc flash 2022-0 Yes [id number] 1{each} 1 Each Univers glucose 3-21 9101 daily. ity of scanning 00:00: [place] reader 00 Medical (FREESTYLE Branch DOM 2 READER) Misc flash 2022-0 Yes [id number] 1{each} 1 Each Univers glucose 3-21 9101 daily. ity of scanning 00:00: [place] reader 00 Medical (FREESTYLE Branch DOM 2 READER) Misc flash 2022-0 Yes [id number] 1{each} 1 Each Univers glucose 3-21 9101 daily. ity of scanning 00:00: [place] reader 00 Medical (FREESTYLE Branch DOM 2 READER) Misc flash 2022-0 Yes [id number] 1{each} 1 Each [facility] glucose 3-21 9101 daily. ity of scanning 00:00: [place] reader 00 Medical (FREESTYLE Branch DOM 2 READER) Misc flash 2022-0 Yes [id number] 1{each} 1 Each Univers glucose 3-21 9101 daily. ity of scanning 00:00: [place] reader 00 Medical (FREESTYLE Branch DOM 2 READER) Misc flash 2022-0 Yes [id number] 1{each} 1 Each Univers glucose 3-21 9101 daily. ity of scanning 00:00: [place] reader 00 Medical (FREESTYLE Branch DOM 2 READER) Misc flash 2022-0 Yes [id number] 1{each} 1 Each Univers glucose 3-21 9101 daily. ity of scanning 00:00: [place] reader 00 Medical (FREESTYLE Branch DOM 2 READER) Misc flash 2022-0 Yes [id number] 1{each} 1 Each [facility] glucose 3-21 9101 daily. ity of scanning 00:00: [place] reader 00 Medical (FREESTYLE Branch DOM 2 READER) Misc flash 2022-0 Yes [id number] 1{each} 1 Each [facility] glucose 3-21 9101 daily. ity of scanning 00:00: [place] reader 00 Medical (FREESTYLE Branch DOM 2 READER) Misc flash 2022-0 Yes [id number] 1{each} 1 Each [facility] glucose 3-21 9101 daily. ity of scanning 00:00: [place] reader 00 Medical (FREESTYLE Branch DOM 2 READER) Misc flash 2022-0 Yes [id number] 1{each} 1 Each [facility] glucose 3-21 9101 daily. ity of scanning 00:00: [place] reader 00 Medical (FREESTYLE Branch DOM 2 READER) Misc flash 2022-0 Yes [id number] 1{each} 1 Each [facility] glucose 3-21 9101 daily. ity of scanning 00:00: [place] reader 00 Medical (FREESTYLE Branch DOM 2 READER) Misc flash 2022-0 Yes [id number] 1{each} 1 Each [facility] glucose 3-21 9101 daily. ity of scanning 00:00: [place] reader 00 Medical (FREESTYLE Branch DOM 2 READER) Misc flash 2022-0 Yes [id number] 1{each} 1 Each [facility] glucose 3-21 9101 daily. ity of scanning 00:00: [place] reader 00 Medical (FREESTYLE Branch DOM 2 READER) Misc flash 2022-0 Yes [id number] 1{each} 1 Each [facility] glucose 3-21 9101 daily. ity of scanning 00:00: [place] reader 00 Medical (FREESTYLE Branch DOM 2 READER) Misc flash 2022-0 Yes [id number] 1{each} 1 Each [facility] glucose 3-21 9101 daily. ity of scanning 00:00: [place] reader 00 Medical (FREESTYLE Branch DOM 2 READER) Misc flash 2022-0 Yes [id number] 1{each} 1 Each [facility] glucose 3-21 9101 daily. ity of scanning 00:00: [place] reader 00 Medical (FREESTYLE Branch DOM 2 READER) Misc flash 2022-0 Yes [id number] 1{each} 1 Each [facility] glucose 3-21 9101 daily. ity of scanning 00:00: [place] reader 00 Medical (FREESTYLE Branch DOM 2 READER) Misc flash 2022-0 Yes [id number] 1{each} 1 Each [facility] glucose 3-21 9101 daily. ity of scanning 00:00: [place] reader 00 Medical (FREESTYLE Branch ODM 2 READER) Misc flash 2022-0 Yes [id number] 1{each} 1 Each [facility] glucose 3-21 9101 daily. ity of scanning 00:00: [place] reader 00 Medical (FREESTYLE Branch DOM 2 READER) Misc flash 2022-0 Yes [id number] 1{each} 1 Each [facility] glucose 3-21 9101 daily. ity of scanning 00:00: [place] reader 00 Medical (FREESTYLE Branch DOM 2 READER) Misc flash 2022-0 Yes [id number] 1{each} 1 Each [facility] glucose 3-21 9101 daily. ity of scanning 00:00: [place] reader 00 Medical (FREESTYLE Branch DOM 2 READER) Misc flash 2-0 Yes [id number] 1{each} 1 Each [facility] glucose 3-21 9101 daily. ity of scanning 00:00: [place] reader 00 Medical (FREESTYLE Branch DOM 2 READER) Misc flash 2-0 Yes [id number] 1{each} 1 Each [facility] glucose 3-21 9101 daily. ity of scanning 00:00: [place] reader 00 Medical (FREESTYLE Branch DOM 2 READER) Misc flash 2-0 Yes [id number] 1{each} 1 Each [facility] glucose 3-21 9101 daily. ity of scanning 00:00: [place] reader 00 Medical (FREESTYLE Branch DOM 2 READER) Misc flash 2-0 2023- No [id number] 1{each} 1 Each [facility] glucose 3-21 04-10 9101 daily. ity of scanning 00:00: 00:00 [place] reader 00 :00 Medical (FREESTYLE Branch DOM 2 READER) Misc flash 2-0 2023- No [id number] 1{each} 1 Each [facility] glucose 3-21 04-10 9101 daily. ity of scanning 00:00: 00:00 [place] reader 00 :00 Medical (FREESTYLE Branch DOM 2 READER) Mis methIMAzole 2020-04 Yes [id number] 5mg Take 1 [facility] 5 mg tablet 1-22 tablet by ity of 00:00: mouth [place] 00 daily. Medical Branch insulin NPH 2020-04 Yes [id number] 25 units [facility] and regular 1-22 9101 wtice ity of human 70-30 00:00: daily [place] (HUMULIN 00 before Medical 70/30 U-100 meals. [facility] INSULIN) daily dose 100 unit/mL of 70 (70-30) units injection methIMAzole 2020-04 Yes [id number] 5mg Take 1 [facility] 5 mg tablet 1-22 tablet by ity of 00:00: mouth [place] 00 daily. Medical Branch insulin NPH 2020-04 Yes [id number] 25 units [facility] and regular 1-22 9101 wtice ity of human 70-30 00:00: daily [place] (HUMULIN 00 before Medical 70/30 U-100 meals. [facility] INSULIN) daily dose 100 unit/mL of 70 (70-30) units injection methIMAzole 2020-04 Yes [id number] 5mg Take 1 [facility] 5 mg tablet 1-22 tablet by ity of 00:00: mouth [place] 00 daily. Medical Branch insulin NPH 2020-04 Yes [id number] 25 units [facility] and regular 1-22 9101 wtice ity of human 70-30 00:00: daily [place] (HUMULIN 00 before Medical 70/30 U-100 meals. [facility] INSULIN) daily dose 100 unit/mL of 70 (70-30) units injection methIMAzole 2020-04 Yes [id number] 5mg Take 1 [facility] 5 mg tablet 1-22 tablet by ity of 00:00: mouth [place] 00 daily. [facility] Branch insulin NPH 2020-04 Yes [id number] 25 units [facility] and regular 1-22 9101 wtice ity of human 70-30 00:00: daily [place] (HUMULIN 00 before Medical 70/30 U-100 meals. [facility] INSULIN) daily dose 100 unit/mL of 70 (70-30) units injection methIMAzole 2020-04 Yes [id number] 5mg Take 1 [facility] 5 mg tablet 1-22 tablet by ity of 00:00: mouth [place] 00 daily. Medical Branch insulin NPH 2020-04 Yes [id number] 25 units [facility] and regular 1- 9101 wtice ity of human 70-30 00:00: daily [place] (HUMULIN 00 before Medical 70/30 U-100 meals. [facility] INSULIN) daily dose 100 unit/mL of 70 (70-30) units injection methIMAzole 2020-04 Yes [id number] 5mg Take 1 [facility] 5 mg tablet 1-22 tablet by ity of 00:00: mouth [place] 00 daily. [facility] insulin NPH 2020-04 Yes [id number] 25 units [facility] and regular 1-22 9101 wtice ity of human 70-30 00:00: daily [place] (HUMULIN 00 before Medical 70/30 U-100 meals. [facility] INSULIN) daily dose 100 unit/mL of 70 (70-30) units injection methIMAzole 2020-04 Yes [id number] 5mg Take 1 [facility] 5 mg tablet 1-22 tablet by ity of 00:00: mouth [place] 00 daily. Medical Branch insulin NPH 2020-04 Yes [id number] 25 units [facility] and regular -22 9101 wtice ity of human 70-30 00:00: daily [place] (HUMULIN 00 before Medical 70/30 U-100 meals. [facility] INSULIN) daily dose 100 unit/mL of 70 (70-30) units injection methIMAzole 2020-04 Yes [id number] 5mg Take 1 [facility] 5 mg tablet 1-22 tablet by ity of 00:00: mouth [place] 00 daily. Medical Branch insulin NPH 2020-04 Yes [id number] 25 units [facility] and regular - 9101 wtice ity of human 70-30 00:00: daily [place] (HUMULIN 00 before Medical 70/30 U-100 meals. [facility] INSULIN) daily dose 100 unit/mL of 70 (70-30) units injection methIMAzole 2020-04 Yes [id number] 5mg Take 1 [facility] 5 mg tablet 1-22 tablet by ity of 00:00: mouth [place] 00 daily. Medical Branch insulin NPH 2020-04 Yes [id number] 25 units [facility] and regular - 9101 wtice ity of human 70-30 00:00: daily [place] (HUMULIN 00 before Medical 70/30 U-100 meals. [facility] INSULIN) daily dose 100 unit/mL of 70 (70-30) units injection methIMAzole 2020-04 Yes [id number] 5mg Take 1 [facility] 5 mg tablet 1-22 tablet by ity of 00:00: mouth [place] 00 daily. Medical Branch insulin NPH 2020-04 Yes [id number] 25 units [facility] and regular - 9101 wtice ity of human 70-30 00:00: daily [place] (HUMULIN 00 before Medical 70/30 U-100 meals. [facility] INSULIN) daily dose 100 unit/mL of 70 (70-30) units injection methIMAzole 2020-04 Yes [id number] 5mg Take 1 [facility] 5 mg tablet 1-22 tablet by ity of 00:00: mouth [place] 00 daily. Medical Branch insulin NPH 2020-04 Yes [id number] 25 units [facility] and regular 1-22 9101 wtice ity of human 70-30 00:00: daily [place] (HUMULIN 00 before Medical 70/30 U-100 meals. [facility] INSULIN) daily dose 100 unit/mL of 70 (70-30) units injection methIMAzole 2020-04 Yes [id number] 5mg Take 1 [facility] 5 mg tablet 1-22 tablet by ity of 00:00: mouth [place] 00 daily. Medical Branch insulin NPH 2020-04 Yes [id number] 25 units [facility] and regular 1-22 9101 wtice ity of human 70-30 00:00: daily [place] (HUMULIN 00 before Medical 70/30 U-100 meals. [facility] INSULIN) daily dose 100 unit/mL of 70 (70-30) units injection methIMAzole 2020-04 Yes [id number] 5mg Take 1 [facility] 5 mg tablet 1-22 tablet by ity of 00:00: mouth [place] 00 daily. Medical Branch insulin NPH 2020-04 Yes [id number] 25 units [facility] and regular 1-22 9101 wtice ity of human 70-30 00:00: daily [place] (HUMULIN 00 before Medical 70/30 U-100 meals. [facility] INSULIN) daily dose 100 unit/mL of 70 (70-30) units injection methIMAzole 2020-04 Yes [id number] 5mg Take 1 [facility] 5 mg tablet 1-22 tablet by ity of 00:00: mouth [place] 00 daily. Medical Branch insulin NPH 2020-04 Yes [id number] 25 units [facility] and regular -22 9101 wtice ity of human 70-30 00:00: daily [place] (HUMULIN 00 before Medical 70/30 U-100 meals. [facility] INSULIN) daily dose 100 unit/mL of 70 (70-30) units injection methIMAzole 2020-04 Yes [id number] 5mg Take 1 [facility] 5 mg tablet 1-22 tablet by ity of 00:00: mouth [place] 00 daily. Medical Branch insulin NPH 2020-04 Yes [id number] 25 units [facility] and regular 1-22 9101 wtice ity of human 70-30 00:00: daily [place] (HUMULIN 00 before Medical 70/30 U-100 meals. [facility] INSULIN) daily dose 100 unit/mL of 70 (70-30) units injection methIMAzole 2020-04 Yes [id number] 5mg Take 1 [facility] 5 mg tablet 1-22 tablet by ity of 00:00: mouth [place] 00 daily. Medical Branch insulin NPH 2020-04 Yes [id number] 25 units [facility] and regular 1-22 9101 wtice ity of human 70-30 00:00: daily [place] (HUMULIN 00 before Medical 70/30 U-100 meals. [facility] INSULIN) daily dose 100 unit/mL of 70 (70-30) units injection methIMAzole 2020-04 Yes [id number] 5mg Take 1 [facility] 5 mg tablet 1-22 tablet by ity of 00:00: mouth [place] 00 daily. Medical Branch insulin NPH 2020-04 Yes [id number] 25 units [facility] and regular 05-16 9101 wtice ity of human 70-30 00:00: daily [place] (HUMULIN 00 before Medical 70/30 U-100 meals. [facility] INSULIN) daily dose 100 unit/mL of 70 (70-30) units injection methIMAzole 2020-04 Yes [id number] 5mg Take 1 [facility] 5 mg tablet 1-22 tablet by ity of 00:00: mouth [place] 00 daily. Medical Branch insulin NPH 2020-04 Yes [id number] 25 units [facility] and regular 05-16 9101 wtice ity of human 70-30 00:00: daily [place] (HUMULIN 00 before Medical 70/30 U-100 meals. [facility] INSULIN) daily dose 100 unit/mL of 70 (70-30) units injection methIMAzole 2020-04 Yes [id number] 5mg Take 1 [facility] 5 mg tablet 1-22 tablet by ity of 00:00: mouth [place] 00 daily. [facility] methIMAzole 2020-04 Yes [id number] 5mg Take 1 [facility] 5 mg tablet 1-22 tablet by ity of 00:00: mouth [place] 00 daily. [facility] methIMAzole 2020-04 Yes [id number] 5mg Take 1 [facility] 5 mg tablet 1-22 tablet by ity of 00:00: mouth [place] 00 daily. [facility] methIMAzole 2020-04 Yes [id number] 5mg Take 1 [facility] 5 mg tablet 1-22 tablet by ity of 00:00: mouth [place] 00 daily. [facility] methIMAzole 2020-04 Yes [id number] 5mg Take 1 [facility] 5 mg tablet 1-22 tablet by ity of 00:00: mouth [place] 00 daily. [facility] methIMAzole 2020-04 Yes [id number] 5mg Take 1 [facility] 5 mg tablet 1-22 tablet by ity of 00:00: mouth [place] 00 daily. Medical Branch methIMAzole 2020-04 Yes [id number] 5mg Take 1 [facility] 5 mg tablet 1-22 tablet by ity of 00:00: mouth [place] 00 daily. [facility] methIMAzole 2020-04 Yes [id number] 5mg Take 1 [facility] 5 mg tablet 1-22 tablet by ity of 00:00: mouth [place] 00 daily. [facility] methIMAzole 2020-04 Yes [id number] 5mg Take 1 [facility] 5 mg tablet 1-22 tablet by ity of 00:00: mouth [place] 00 daily. [facility] methIMAzole 2020-04 Yes [id number] 5mg Take 1 [facility] 5 mg tablet 1-22 tablet by ity of 00:00: mouth [place] 00 daily. [facility] methIMAzole 2020-04 Yes [id number] 5mg Take 1 [facility] 5 mg tablet 1-22 tablet by ity of 00:00: mouth [place] 00 daily. [facility] methIMAzole 2020-04 Yes [id number] 5mg Take 1 [facility] 5 mg tablet 1-22 tablet by ity of 00:00: mouth [place] 00 daily. [facility] methIMAzole 2020-04 Yes [id number] 5mg Take 1 [facility] 5 mg tablet 1-22 tablet by ity of 00:00: mouth [place] 00 daily. [facility] methIMAzole 2020-04 Yes [id number] 5mg Take 1 [facility] 5 mg tablet 1-22 tablet by ity of 00:00: mouth [place] 00 daily. [facility] methIMAzole 2020-04 Yes [id number] 5mg Take 1 [facility] 5 mg tablet 1-22 tablet by ity of 00:00: mouth [place] 00 daily. [facility] methIMAzole 2020-04 Yes [id number] 5mg Take 1 [facility] 5 mg tablet 1-22 tablet by ity of 00:00: mouth [place] 00 daily. [facility] methIMAzole 2020-04 Yes [id number] 5mg Take 1 [facility] 5 mg tablet 1-22 tablet by ity of 00:00: mouth [place] 00 daily. [facility] methIMAzole 2020-04 Yes [id number] 5mg Take 1 [facility] 5 mg tablet 1-22 tablet by ity of 00:00: mouth [place] 00 daily. [facility] methIMAzole 2020-04 Yes [id number] 5mg Take 1 [facility] 5 mg tablet 1-22 tablet by ity of 00:00: mouth [place] 00 daily. [facility] methIMAzole 2020-04 Yes [id number] 5mg Take 1 [facility] 5 mg tablet 1-22 tablet by ity of 00:00: mouth [place] 00 daily. [facility] methIMAzole 2020-04 Yes [id number] 5mg Take 1 [facility] 5 mg tablet 1-22 tablet by ity of 00:00: mouth [place] 00 daily. [facility] methIMAzole 2020-04 Yes [id number] 5mg Take 1 [facility] 5 mg tablet 1-22 tablet by ity of 00:00: mouth [place] 00 daily. [facility] methIMAzole 2020-04 Yes [id number] 5mg Take 1 [facility] 5 mg tablet 1-22 tablet by ity of 00:00: mouth [place] 00 daily. [facility] methIMAzole 2020-04 Yes [id number] 5mg Take 1 [facility] 5 mg tablet 1-22 tablet by ity of 00:00: mouth [place] 00 daily. [facility] methIMAzole 2020-04 Yes [id number] 5mg Take 1 [facility] 5 mg tablet 1-22 tablet by ity of 00:00: mouth [place] 00 daily. [facility] methIMAzole 2020-04 Yes [id number] 5mg Take 1 [facility] 5 mg tablet 1-22 tablet by ity of 00:00: mouth [place] 00 daily. [facility] methIMAzole 2020-04 Yes [id number] 5mg Take 1 [facility] 5 mg tablet 1-22 tablet by ity of 00:00: mouth [place] 00 daily. [facility] methIMAzole 2020-04 Yes [id number] 5mg Take 1 [facility] 5 mg tablet 1-22 tablet by ity of 00:00: mouth [place] 00 daily. [facility] methIMAzole 2020-04 Yes [id number] 5mg Take 1 [facility] 5 mg tablet 1-22 tablet by ity of 00:00: mouth [place] 00 daily. [facility] methIMAzole 2020-04 Yes [id number] 5mg Take 1 [facility] 5 mg tablet 1-22 tablet by ity of 00:00: mouth [place] 00 daily. [facility] methIMAzole 2020-04 Yes [id number] 5mg Take 1 [facility] 5 mg tablet 1-22 tablet by ity of 00:00: mouth [place] 00 daily. [facility] methIMAzole 2020-04 Yes [id number] 5mg Take 1 [facility] 5 mg tablet 1-22 tablet by ity of 00:00: mouth [place] 00 daily. [facility] methIMAzole 2020-04 Yes [id number] 5mg Take 1 [facility] 5 mg tablet 1-22 tablet by ity of 00:00: mouth [place] 00 daily. [facility] methIMAzole 2020-04 Yes [id number] 5mg Take 1 [facility] 5 mg tablet 1-22 tablet by ity of 00:00: mouth [place] 00 daily. [facility] methIMAzole 2020-04 Yes [id number] 5mg Take 1 [facility] 5 mg tablet 1-22 tablet by ity of 00:00: mouth [place] 00 daily. [facility] methIMAzole 2020-04 Yes [id number] 5mg Take 1 [facility] 5 mg tablet 1-22 tablet by ity of 00:00: mouth [place] 00 daily. [facility] methIMAzole 2020-04 Yes [id number] 5mg Take 1 [facility] 5 mg tablet 1-22 tablet by ity of 00:00: mouth [place] 00 daily. [facility] methIMAzole 2020-04 Yes [id number] 5mg Take 1 [facility] 5 mg tablet 1-22 tablet by ity of 00:00: mouth [place] 00 daily. [facility] methIMAzole 2020-04 Yes [id number] 5mg Take 1 [facility] 5 mg tablet 1-22 tablet by ity of 00:00: mouth [place] 00 daily. [facility] methIMAzole 2020-04 Yes [id number] 5mg Take 1 [facility] 5 mg tablet 1-22 tablet by ity of 00:00: mouth [place] 00 daily. [facility] methIMAzole 2020-04 Yes [id number] 5mg Take 1 [facility] 5 mg tablet 1-22 tablet by ity of 00:00: mouth [place] 00 daily. [facility] methIMAzole 2020-04 Yes [id number] 5mg Take 1 [facility] 5 mg tablet 1-22 tablet by ity of 00:00: mouth [place] 00 daily. [facility] methIMAzole 2020-04 Yes [id number] 5mg Take 1 [facility] 5 mg tablet 1-22 tablet by ity of 00:00: mouth [place] 00 daily. [facility] methIMAzole 2020-04 Yes [id number] 5mg Take 1 [facility] 5 mg tablet 1-22 tablet by ity of 00:00: mouth [place] 00 daily. [facility] methIMAzole 2020-04 Yes [id number] 5mg Take 1 [facility] 5 mg tablet 1-22 tablet by ity of 00:00: mouth [place] 00 daily. [facility] methIMAzole 2020-04 Yes [id number] 5mg Take 1 [facility] 5 mg tablet 1-22 tablet by ity of 00:00: mouth [place] 00 daily. [facility] methIMAzole 2020-04 Yes [id number] 5mg Take 1 [facility] 5 mg tablet 1-22 tablet by ity of 00:00: mouth [place] 00 daily. [facility] methIMAzole 2020-04 Yes [id number] 5mg Take 1 [facility] 5 mg tablet 1-22 tablet by ity of 00:00: mouth [place] 00 daily. [facility] methIMAzole 2020-04 Yes [id number] 5mg Take 1 [facility] 5 mg tablet 1-22 tablet by ity of 00:00: mouth [place] 00 daily. [facility] methIMAzole 2020-04 Yes [id number] 5mg Take 1 [facility] 5 mg tablet 1-22 tablet by ity of 00:00: mouth [place] 00 daily. [facility] methIMAzole 2020-04 Yes [id number] 5mg Take 1 [facility] 5 mg tablet 1-22 tablet by ity of 00:00: mouth [place] 00 daily. [facility] methIMAzole 2020-04 Yes [id number] 5mg Take 1 [facility] 5 mg tablet 1-22 tablet by ity of 00:00: mouth [place] 00 daily. [facility] methIMAzole 2020-04 Yes [id number] 5mg Take 1 [facility] 5 mg tablet 1-22 tablet by ity of 00:00: mouth [place] 00 daily. [facility] methIMAzole 2020-04 Yes [id number] 5mg Take 1 [facility] 5 mg tablet 1-22 tablet by ity of 00:00: mouth [place] 00 daily. [facility] methIMAzole 2020-04 Yes [id number] 5mg Take 1 [facility] 5 mg tablet 1-22 tablet by ity of 00:00: mouth [place] 00 daily. [facility] methIMAzole 2020-04 Yes [id number] 5mg Take 1 [facility] 5 mg tablet 1-22 tablet by ity of 00:00: mouth [place] 00 daily. [facility] methIMAzole 2020-04 Yes [id number] 5mg Take 1 [facility] 5 mg tablet 1-22 tablet by ity of 00:00: mouth [place] 00 daily. [facility] methIMAzole 2020-04 Yes [id number] 5mg Take 1 [facility] 5 mg tablet 1-22 tablet by ity of 00:00: mouth [place] 00 daily. [facility] Branch methIMAzole 2020-04 Yes [id number] 5mg Take 1 [facility] 5 mg tablet 1-22 tablet by ity of 00:00: mouth [place] 00 daily. [facility] methIMAzole 2020-04 Yes [id number] 5mg Take 1 [facility] 5 mg tablet 1-22 tablet by ity of 00:00: mouth [place] 00 daily. [facility] methIMAzole 2020-04- No [id number] 5mg Take 1 [facility] 5 mg tablet 1-22 06-22 tablet by it y of 00:00: 00:00 mouth [place] 00 :00 daily. [facility] insulin NPH 2020-04- No [id number] 25 units [facility] and regular 05-16 9101 wtice ity of human 70-30 00:00: 00:00 [place] (HUMULIN 00 :00 before Medical 70/30 U-100 meals. [facility] INSULIN) daily dose 100 unit/mL of 70 (70-30) units injection insulin NPH 2020-04- No [id number] 25 units [facility] and regular 05-16 9101 wtice ity of human 70-30 00:00: 00:00 daily [place] (HUMULIN 00 :00 before Medical 70/30 U-100 meals. [facility] anch INSULIN) daily dose 100 unit/mL of 70 (70-30) units injection atorvastati 2020-04 Yes [id number] 10mg Take 1 [facility] n (LIPITOR) 0-07 tablet by ity of 10 mg 00:00: mouth at [place] tablet 00 bedtime. Medical Branch atorvastati 2020-04 Yes [id number] 10mg Take 1 [facility] n (LIPITOR) 0-07 tablet by ity of 10 mg 00:00: mouth at [place] tablet 00 bedtime. [facility] atorvastati 2020-04 Yes [id number] 10mg Take 1 [facility] n (LIPITOR) 0-07 tablet by ity of 10 mg 00:00: mouth at [place] tablet 00 bedtime. [facility] atorvastati 2020-04 Yes [id number] 10mg Take 1 [facility] n (LIPITOR) 0-07 tablet by ity of 10 mg 00:00: mouth at [place] tablet 00 bedtime. Medical Branch atorvastati 2020- Yes [id number] 10mg Take 1 [facility] n (LIPITOR) 0-07 tablet by ity of 10 mg 00:00: mouth at [place] tablet 00 bedtime. Medical Branch atorvastati 2020-04 Yes [id number] 10mg Take 1 [facility] n (LIPITOR) 0-07 tablet by ity of 10 mg 00:00: mouth at [place] tablet 00 bedtime. Medical Branch atorvastati 2020-04 Yes [id number] 10mg Take 1 [facility] n (LIPITOR) 0-07 tablet by ity of 10 mg 00:00: mouth at [place] tablet 00 bedtime. Medical Branch atorvastati 2020-04 2022- No [id number] 10mg Take 1 [facility] n (LIPITOR) 0-07 09-19 tablet by it y of 10 mg 00:00: 00:00 mouth at [place] tablet 00 :00 bedtime. Medical Branch silver 2020-0 Yes [id number] Apply to Un rl sulfADIAZIN 9-01 area(s) 2 ity of E 00:00: (two) [place] (SILVADENE) 00 times Medical 1 % cream daily. Branch silver 2020-0 Yes [id number] Apply to Un rl sulfADIAZIN 9-01 area(s) 2 ity of E 00:00: (two) [place] (SILVADENE) 00 times Medical 1 % cream daily. Branch silver 2020-0 Yes [id number] Apply to Un rl sulfADIAZIN 9-01 area(s) 2 ity of E 00:00: (two) [place] (SILVADENE) 00 times Medical 1 % cream daily. Branch silver 2020-0 Yes [id number] Apply to Un rl sulfADIAZIN 9-01 area(s) 2 ity of E 00:00: (two) [place] (SILVADENE) 00 times Medical 1 % cream daily. Branch silver 2020-0 Yes [id number] Apply to Un rl sulfADIAZIN 9-01 area(s) 2 ity of E 00:00: (two) [place] (SILVADENE) 00 times Medical 1 % cream daily. Branch silver 2020-0 Yes [id number] Apply to Un rl sulfADIAZIN 9-01 area(s) 2 ity of E 00:00: (two) [place] (SILVADENE) 00 times Medical 1 % cream daily. Branch silver 2021-0 Yes [id number] Apply to Un rl sulfADIAZIN 9-01 area(s) 2 ity of E 00:00: (two) [place] (SILVADENE) 00 times Medical 1 % cream daily. Branch silver 2021-0 Yes [id number] Apply to Un rl sulfADIAZIN 9-01 area(s) 2 ity of E 00:00: (two) [place] (SILVADENE) 00 times Medical 1 % cream daily. Branch silver 2021-0 Yes [id number] Apply to Un rl sulfADIAZIN 9-01 area(s) 2 ity of E 00:00: (two) [place] (SILVADENE) 00 times Medical 1 % cream daily. Branch silver 2021-0 Yes [id number] Apply to Un rl sulfADIAZIN 9-01 area(s) 2 ity of E 00:00: (two) [place] (SILVADENE) 00 times Medical 1 % cream daily. Branch silver 2021-0 Yes [id number] Apply to Un rl sulfADIAZIN 9-01 area(s) 2 ity of E 00:00: (two) [place] (SILVADENE) 00 times Medical 1 % cream daily. Branch silver 2021-0 Yes [id number] Apply to Un rl sulfADIAZIN 9-01 area(s) 2 ity of E 00:00: (two) [place] (SILVADENE) 00 times Medical 1 % cream daily. Branch silver 2021-0 Yes [id number] Apply to Un rl sulfADIAZIN 9-01 area(s) 2 ity of E 00:00: (two) [place] (SILVADENE) 00 times Medical 1 % cream daily. Branch silver 2021-0 Yes [id number] Apply to Un rl sulfADIAZIN 9-01 area(s) 2 ity of E 00:00: (two) [place] (SILVADENE) 00 times Medical 1 % cream daily. Branch silver 2021-0 Yes [id number] Apply to Un rl sulfADIAZIN 9-01 area(s) 2 ity of E 00:00: (two) [place] (SILVADENE) 00 times Medical 1 % cream daily. Branch silver 2021-0 Yes [id number] Apply to Un rl sulfADIAZIN 9-01 area(s) 2 ity of E 00:00: (two) [place] (SILVADENE) 00 times Medical 1 % cream daily. Branch silver 2021-0 Yes [id number] Apply to Un rl sulfADIAZIN 9-01 area(s) 2 ity of E 00:00: (two) [place] (SILVADENE) 00 times Medical 1 % cream daily. Branch silver 2021-0 Yes [id number] Apply to Un rl sulfADIAZIN 9-01 area(s) 2 ity of E 00:00: (two) [place] (SILVADENE) 00 times Medical 1 % cream daily. Branch silver 2021-0 Yes [id number] Apply to Un rl sulfADIAZIN 9-01 area(s) 2 ity of E 00:00: (two) [place] (SILVADENE) 00 times Medical 1 % cream daily. Branch silver 2021-0 Yes [id number] Apply to Un rl sulfADIAZIN 9-01 area(s) 2 ity of E 00:00: (two) [place] (SILVADENE) 00 times Medical 1 % cream daily. Branch silver 2021-0 Yes [id number] Apply to Un rl sulfADIAZIN 9-01 area(s) 2 ity of E 00:00: (two) [place] (SILVADENE) 00 times Medical 1 % cream daily. Branch silver 2021-0 Yes [id number] Apply to Un rl sulfADIAZIN 9-01 area(s) 2 ity of E 00:00: (two) [place] (SILVADENE) 00 times Medical 1 % cream daily. Branch silver 2021-0 Yes [id number] Apply to Un rl sulfADIAZIN 9-01 area(s) 2 ity of E 00:00: (two) [place] (SILVADENE) 00 times Medical 1 % cream daily. Branch silver 2021-0 Yes [id number] Apply to Un rl sulfADIAZIN 9-01 area(s) 2 ity of E 00:00: (two) [place] (SILVADENE) 00 times Medical 1 % cream daily. Branch silver 2021-0 Yes [id number] Apply to Un rl sulfADIAZIN 9-01 area(s) 2 ity of E 00:00: (two) [place] (SILVADENE) 00 times Medical 1 % cream daily. Branch silver 2021-0 Yes [id number] Apply to Un rl sulfADIAZIN 9-01 area(s) 2 ity of E 00:00: (two) [place] (SILVADENE) 00 times Medical 1 % cream daily. Branch silver 2021-0 Yes [id number] Apply to Un rl sulfADIAZIN 9-01 area(s) 2 ity of E 00:00: (two) [place] (SILVADENE) 00 times Medical 1 % cream daily. Branch silver 2021-0 Yes [id number] Apply to Un rl sulfADIAZIN 9-01 area(s) 2 ity of E 00:00: (two) [place] (SILVADENE) 00 times Medical 1 % cream daily. Branch silver 2021-0 Yes [id number] Apply to Un rl sulfADIAZIN 9-01 area(s) 2 ity of E 00:00: (two) [place] (SILVADENE) 00 times Medical 1 % cream daily. Branch silver 2021-0 Yes [id number] Apply to Un rl sulfADIAZIN 9-01 area(s) 2 ity of E 00:00: (two) [place] (SILVADENE) 00 times Medical 1 % cream daily. Branch silver 2021-0 Yes [id number] Apply to Un rl sulfADIAZIN 9-01 area(s) 2 ity of E 00:00: (two) [place] (SILVADENE) 00 times Medical 1 % cream daily. Branch silver 2021-0 Yes [id number] Apply to Un rl sulfADIAZIN 9-01 area(s) 2 ity of E 00:00: (two) [place] (SILVADENE) 00 times Medical 1 % cream daily. Branch silver 2021-0 Yes [id number] Apply to Un rl sulfADIAZIN 9-01 area(s) 2 ity of E 00:00: (two) [place] (SILVADENE) 00 times Medical 1 % cream daily. Branch silver 2021-0 Yes [id number] Apply to Un rl sulfADIAZIN 9-01 area(s) 2 ity of E 00:00: (two) [place] (SILVADENE) 00 times Medical 1 % cream daily. Branch silver 2021-0 Yes [id number] Apply to Un rl sulfADIAZIN 9-01 area(s) 2 ity of E 00:00: (two) [place] (SILVADENE) 00 times Medical 1 % cream daily. Branch silver 2021-0 Yes [id number] Apply to Un rl sulfADIAZIN 9-01 area(s) 2 ity of E 00:00: (two) [place] (SILVADENE) 00 times Medical 1 % cream daily. Branch silver 2021-0 Yes [id number] Apply to Un rl sulfADIAZIN 9-01 area(s) 2 ity of E 00:00: (two) [place] (SILVADENE) 00 times Medical 1 % cream daily. Branch silver 2021-0 Yes [id number] Apply to Un rl sulfADIAZIN 9-01 area(s) 2 ity of E 00:00: (two) [place] (SILVADENE) 00 times Medical 1 % cream daily. Branch silver 2021-0 Yes [id number] Apply to Un rl sulfADIAZIN 9-01 area(s) 2 ity of E 00:00: (two) [place] (SILVADENE) 00 times Medical 1 % cream daily. Branch silver 2021-0 Yes [id number] Apply to Un rl sulfADIAZIN 9-01 area(s) 2 ity of E 00:00: (two) [place] (SILVADENE) 00 times Medical 1 % cream daily. Branch silver 2021-0 Yes [id number] Apply to Un rl sulfADIAZIN 9-01 area(s) 2 ity of E 00:00: (two) [place] (SILVADENE) 00 times Medical 1 % cream daily. Branch silver 2021-0 Yes [id number] Apply to Un rl sulfADIAZIN 9-01 area(s) 2 ity of E 00:00: (two) [place] (SILVADENE) 00 times Medical 1 % cream daily. Branch silver 2021-0 Yes [id number] Apply to Un rl sulfADIAZIN 9-01 area(s) 2 ity of E 00:00: (two) [place] (SILVADENE) 00 times Medical 1 % cream daily. Branch silver 2021-0 Yes [id number] Apply to Un rl sulfADIAZIN 9-01 area(s) 2 ity of E 00:00: (two) [place] (SILVADENE) 00 times Medical 1 % cream daily. Branch silver 2021-0 Yes [id number] Apply to Un rl sulfADIAZIN 9-01 area(s) 2 ity of E 00:00: (two) [place] (SILVADENE) 00 times Medical 1 % cream daily. Branch silver 2021-0 Yes [id number] Apply to Un rl sulfADIAZIN 9-01 area(s) 2 ity of E 00:00: (two) [place] (SILVADENE) 00 times Medical 1 % cream daily. Branch silver 2021-0 Yes [id number] Apply to Un rl sulfADIAZIN 9-01 area(s) 2 ity of E 00:00: (two) [place] (SILVADENE) 00 times Medical 1 % cream daily. Branch silver 2021-0 Yes [id number] Apply to Un rl sulfADIAZIN 9-01 area(s) 2 ity of E 00:00: (two) [place] (SILVADENE) 00 times Medical 1 % cream daily. Branch silver 2021-0 Yes [id number] Apply to Un rl sulfADIAZIN 9-01 area(s) 2 ity of E 00:00: (two) [place] (SILVADENE) 00 times Medical 1 % cream daily. Branch silver 2021-0 Yes [id number] Apply to Un rl sulfADIAZIN 9-01 area(s) 2 ity of E 00:00: (two) [place] (SILVADENE) 00 times Medical 1 % cream daily. Branch silver 2021-0 Yes [id number] Apply to Un rl sulfADIAZIN 9-01 area(s) 2 ity of E 00:00: (two) [place] (SILVADENE) 00 times Medical 1 % cream daily. Branch silver 2021-0 Yes [id number] Apply to Un rl sulfADIAZIN 9-01 area(s) 2 ity of E 00:00: (two) [place] (SILVADENE) 00 times Medical 1 % cream daily. Branch silver 2021-0 Yes [id number] Apply to Un rl sulfADIAZIN 9-01 area(s) 2 ity of E 00:00: (two) [place] (SILVADENE) 00 times Medical 1 % cream daily. Branch silver 2021-0 Yes [id number] Apply to Un rl sulfADIAZIN 9-01 area(s) 2 ity of E 00:00: (two) [place] (SILVADENE) 00 times Medical 1 % cream daily. Branch silver 2021-0 Yes [id number] Apply to Un rl sulfADIAZIN 9-01 area(s) 2 ity of E 00:00: (two) [place] (SILVADENE) 00 times Medical 1 % cream daily. Branch silver 2021-0 Yes [id number] Apply to Un rl sulfADIAZIN 9-01 area(s) 2 ity of E 00:00: (two) [place] (SILVADENE) 00 times Medical 1 % cream daily. Branch silver 2021-0 Yes [id number] Apply to Un rl sulfADIAZIN 9-01 area(s) 2 ity of E 00:00: (two) [place] (SILVADENE) 00 times Medical 1 % cream daily. Branch silver 2021-0 Yes [id number] Apply to Un rl sulfADIAZIN 9-01 area(s) 2 ity of E 00:00: (two) [place] (SILVADENE) 00 times Medical 1 % cream daily. Branch silver 2021-0 Yes [id number] Apply to Un rl sulfADIAZIN 9-01 area(s) 2 ity of E 00:00: (two) [place] (SILVADENE) 00 times Medical 1 % cream daily. Branch silver 2021-0 Yes [id number] Apply to Un rl sulfADIAZIN 9-01 area(s) 2 ity of E 00:00: (two) [place] (SILVADENE) 00 times Medical 1 % cream daily. Branch silver 2021-0 Yes [id number] Apply to Un rl sulfADIAZIN 9-01 area(s) 2 ity of E 00:00: (two) [place] (SILVADENE) 00 times Medical 1 % cream daily. Branch silver 2021-0 Yes [id number] Apply to Un rl sulfADIAZIN 9-01 area(s) 2 ity of E 00:00: (two) [place] (SILVADENE) 00 times Medical 1 % cream daily. Branch silver 2021-0 Yes [id number] Apply to Un rl sulfADIAZIN 9-01 area(s) 2 ity of E 00:00: (two) [place] (SILVADENE) 00 times Medical 1 % cream daily. Branch silver 2021-0 Yes [id number] Apply to Un rl sulfADIAZIN 9-01 area(s) 2 ity of E 00:00: (two) [place] (SILVADENE) 00 times Medical 1 % cream daily. Branch silver 2021-0 Yes [id number] Apply to Un rl sulfADIAZIN 9-01 area(s) 2 ity of E 00:00: (two) [place] (SILVADENE) 00 times Medical 1 % cream daily. Branch silver 2021-0 Yes [id number] Apply to Un rl sulfADIAZIN 9-01 area(s) 2 ity of E 00:00: (two) [place] (SILVADENE) 00 times Medical 1 % cream daily. Branch silver 2021-0 Yes [id number] Apply to Un rl sulfADIAZIN 9-01 area(s) 2 ity of E 00:00: (two) [place] (SILVADENE) 00 times Medical 1 % cream daily. Branch silver 2021-0 Yes [id number] Apply to Un rl sulfADIAZIN 9-01 area(s) 2 ity of E 00:00: (two) [place] (SILVADENE) 00 times Medical 1 % cream daily. Branch silver 2021-0 Yes [id number] Apply to Un rl sulfADIAZIN 9-01 area(s) 2 ity of E 00:00: (two) [place] (SILVADENE) 00 times Medical 1 % cream daily. Branch silver 2021-0 Yes [id number] Apply to Un rl sulfADIAZIN 9-01 area(s) 2 ity of E 00:00: (two) [place] (SILVADENE) 00 times Medical 1 % cream daily. Branch silver 2021-0 Yes [id number] Apply to Un rl sulfADIAZIN 9-01 area(s) 2 ity of E 00:00: (two) [place] (SILVADENE) 00 times Medical 1 % cream daily. Branch silver 2021-0 Yes [id number] Apply to Un rl sulfADIAZIN 9-01 area(s) 2 ity of E 00:00: (two) [place] (SILVADENE) 00 times Medical 1 % cream daily. Branch silver 2021-0 Yes [id number] Apply to Un rl sulfADIAZIN 9-01 area(s) 2 ity of E 00:00: (two) [place] (SILVADENE) 00 times Medical 1 % cream daily. Branch silver 2021-0 Yes [id number] Apply to Un rl sulfADIAZIN 9-01 area(s) 2 ity of E 00:00: (two) [place] (SILVADENE) 00 times Medical 1 % cream daily. Branch silver 2021-0 Yes [id number] Apply to Un rl sulfADIAZIN 9-01 area(s) 2 ity of E 00:00: (two) [place] (SILVADENE) 00 times Medical 1 % cream daily. Branch silver 2021-0 Yes [id number] Apply to Un rl sulfADIAZIN 9-01 area(s) 2 ity of E 00:00: (two) [place] (SILVADENE) 00 times Medical 1 % cream daily. Branch silver 2021-0 Yes [id number] Apply to Un rl sulfADIAZIN 9-01 area(s) 2 ity of E 00:00: (two) [place] (SILVADENE) 00 times Medical 1 % cream daily. Branch silver 2021-0 Yes [id number] Apply to Un rl sulfADIAZIN 9-01 area(s) 2 ity of E 00:00: (two) [place] (SILVADENE) 00 times Medical 1 % cream daily. Branch silver 2021-0 Yes [id number] Apply to Un rl sulfADIAZIN 9-01 area(s) 2 ity of E 00:00: (two) [place] (SILVADENE) 00 times Medical 1 % cream daily. Branch silver 2021-0 Yes [id number] Apply to Un rl sulfADIAZIN 9-01 area(s) 2 ity of E 00:00: (two) [place] (SILVADENE) 00 times Medical 1 % cream daily. Branch silver 2021-0 Yes [id number] Apply to Un rl sulfADIAZIN 9-01 area(s) 2 ity of E 00:00: (two) [place] (SILVADENE) 00 times Medical 1 % cream daily. Branch silver 2021-0 Yes [id number] Apply to Un rl sulfADIAZIN 9-01 area(s) 2 ity of E 00:00: (two) [place] (SILVADENE) 00 times Medical 1 % cream daily. Branch silver 2021-0 Yes [id number] Apply to Un rl sulfADIAZIN 9-01 area(s) 2 ity of E 00:00: (two) [place] (SILVADENE) 00 times Medical 1 % cream daily. Branch metoclopram 2020-0 Yes [id number] 5mg Take 1 [facility] dan[facility] HCl 5 8-24 tablet by ity o f mg tablet 00:00: mouth [place] 00 before Medical meals. Branch Dexlansopra 2020-0 Yes [id number] 60mg Take 1 [facility] zole 8-24 capsule by ity of (DEXILANT) 00:00: mouth [place] 60 mg 00 daily. Medical capsule Branch dicyclomine 2020-0 Yes [id number] 20mg Take 1 [facility] 20 mg 8-24 tablet by ity of tablet 00:00: mouth 2 00 (two) Medical times Branch daily. metoclopram 2020-0 Yes [id number] 5mg Take 1 [facility] daniel HCl 5 8-24 tablet by ity o f mg tablet 00:00: mouth [place] 00 before Medical meals. Branch Dexlansopra 2020-0 Yes [id number] 60mg Take 1 [facility] zole 8-24 capsule by ity of (DEXILANT) 00:00: mouth [place] 60 mg 00 daily. Medical capsule Branch dicyclomine 2020-0 Yes [id number] 20mg Take 1 [facility] 20 mg 8-24 tablet by ity of tablet 00:00: mouth 2 00 (two) Medical times Branch daily. metoclopram 2020-0 Yes [id number] 5mg Take 1 [facility] daniel HCl 5 8-24 tablet by ity o f mg tablet 00:00: mouth [place] 00 before Medical meals. Branch Dexlansopra 2020-0 Yes [id number] 60mg Take 1 [facility] zole 8-24 capsule by ity of (DEXILANT) 00:00: mouth [place] 60 mg 00 daily. Medical capsule Branch dicyclomine 2020-0 Yes [id number] 20mg Take 1 [facility] 20 mg 8-24 tablet by ity of tablet 00:00: mouth 2 [place] 00 (two) Medical times Branch daily. metoclopram 2020-0 Yes [id number] 5mg Take 1 [facility] daniel HCl 5 8-24 tablet by ity o f mg tablet 00:00: mouth [place] 00 before Medical meals. Branch Dexlansopra 2020-0 Yes [id number] 60mg Take 1 [facility] zole 8-24 capsule by ity of (DEXILANT) 00:00: mouth [place] 60 mg 00 daily. Medical capsule Branch dicyclomine 1-0 Yes [id number] 20mg Take 1 [facility] 20 mg 8-24 tablet by ity of tablet 00:00: mouth (two) Medical times Branch daily. metoclopram 1-0 Yes [id number] 5mg Take 1 [facility] daniel HCl 5 8-24 tablet by ity o f mg tablet 00:00: mouth [place] 00 before Medical meals. Branch Dexlansopra 2020-0 Yes [id number] 60mg Take 1 [facility] zole 8-24 capsule by ity of (DEXILANT) 00:00: mouth [place] 60 mg 00 daily. Medical capsule Branch dicyclomine 2020-0 Yes [id number] 20mg Take 1 [facility] 20 mg 8-24 tablet by ity of tablet 00:00: mouth (two) Medical times Branch daily. metoclopram 2020-0 Yes [id number] 5mg Take 1 [facility] daniel HCl 5 8-24 tablet by ity o f mg tablet 00:00: mouth 00 before Medical meals. Branch dicyclomine 2020-0 Yes [id number] 20mg Take 1 [facility] 20 mg 8-24 tablet by ity of tablet 00:00: mouth (two) Medical times Branch daily. metoclopram 1-0 Yes [id number] 5mg Take 1 [facility] daniel HCl 5 8-24 tablet by ity o f mg tablet 00:00: mouth 00 before Medical meals. Branch dicyclomine 2020-0 Yes [id number] 20mg Take 1 [facility] 20 mg 8-24 tablet by ity of tablet 00:00: mouth (two) Medical times Branch daily. metoclopram 1-0 Yes [id number] 5mg Take 1 [facility] HCl 5 8-24 tablet by ity o f mg tablet 00:00: mouth 00 before Medical meals. Branch dicyclomine 2021-0 Yes [id number] 20mg Take 1 [facility] 20 mg 8-24 tablet by ity of tablet 00:00: mouth 2 (two) Medical times Branch daily. metoclopram 2021-0 Yes [id number] 5mg Take 1 [facility] daniel HCl 5 8-24 tablet by ity o f mg tablet 00:00: mouth [place] 00 before Medical meals. Branch dicyclomine 2020-0 Yes [id number] 20mg Take 1 [facility] 20 mg 8-24 tablet by ity of tablet 00:00: mouth 00 (two) Medical times Branch daily. metoclopram 1-0 Yes [id number] 5mg Take 1 [facility] daniel HCl 5 8-24 tablet by ity o f mg tablet 00:00: mouth 00 before Medical meals. Branch metoclopram 2020-0 Yes [id number] 5mg Take 1 [facility] HCl 5 8-24 tablet by ity o f mg tablet 00:00: mouth 00 before Medical meals. Branch metoclopram 2020-0 Yes [id number] 5mg Take 1 [facility] HCl 5 8-24 tablet by ity o f mg tablet 00:00: mouth 00 before Medical meals. Branch metoclopram 2020-0 Yes [id number] 5mg Take 1 [facility] HCl 5 8-24 tablet by ity o f mg tablet 00:00: mouth 00 before Medical meals. Branch metoclopram 2020-0 Yes [id number] 5mg Take 1 [facility] HCl 5 8-24 tablet by ity o f mg tablet 00:00: mouth 00 before Medical meals. Branch metoclopram 2020-0 Yes [id number] 5mg Take 1 [facility] HCl 5 8-24 tablet by ity o f mg tablet 00:00: mouth 00 before Medical meals. Branch metoclopram 2020-0 Yes [id number] 5mg Take 1 [facility] HCl 5 8-24 tablet by ity o f mg tablet 00:00: mouth 00 before Medical meals. Branch metoclopram 1-0 Yes [id number] 5mg Take 1 [facility] daniel HCl 5 8-24 tablet by ity o f mg tablet 00:00: mouth 00 before Medical meals. Branch metoclopram 1-0 Yes [id number] 5mg Take 1 [facility] daniel HCl 5 8-24 tablet by ity o f mg tablet 00:00: mouth 00 before Medical meals. Branch metoclopram 1-0 Yes [id number] 5mg Take 1 [facility] dan[facility] HCl 5 8-24 tablet by ity o f mg tablet 00:00: mouth 00 before Medical meals. Branch metoclopram 1-0 Yes [id number] 5mg Take 1 [facility] daniel HCl 5 8-24 tablet by ity o f mg tablet 00:00: mouth [place] 00 before Medical meals. Branch metoclopram 1-0 Yes [id number] 5mg Take 1 [facility] daniel HCl 5 8-24 tablet by ity o f mg tablet 00:00: mouth [place] 00 before Medical meals. Branch metoclopram 1-0 Yes [id number] 5mg Take 1 [facility] daniel HCl 5 8-24 tablet by ity o f mg tablet 00:00: mouth [place] 00 before Medical meals. Branch metoclopram 1-0 Yes [id number] 5mg Take 1 [facility] dan[facility] HCl 5 8-24 tablet by ity o f mg tablet 00:00: mouth [place] 00 before Medical meals. Branch metoclopram 2020-0 Yes [id number] 5mg Take 1 [facility] HCl 5 8-24 tablet by ity o f mg tablet 00:00: mouth [place] 00 before Medical meals. Branch metoclopram 1-0 Yes [id number] 5mg Take 1 [facility] daniel HCl 5 8-24 tablet by ity o f mg tablet 00:00: mouth [place] 00 before Medical meals. Branch metoclopram 1-0 Yes [id number] 5mg Take 1 [facility] HCl 5 8-24 tablet by ity o f mg tablet 00:00: mouth [place] 00 before Medical meals. Branch metoclopram 2020-0 Yes [id number] 5mg Take 1 [facility] HCl 5 8-24 tablet by ity o f mg tablet 00:00: mouth [place] 00 before Medical meals. Branch metoclopram 1-0 Yes [id number] 5mg Take 1 [facility] HCl 5 8-24 tablet by ity o f mg tablet 00:00: mouth [place] 00 before Medical meals. Branch metoclopram 1-0 Yes [id number] 5mg Take 1 [facility] HCl 5 8-24 tablet by ity o f mg tablet 00:00: mouth [place] 00 before Medical meals. Branch metoclopram 1-0 Yes [id number] 5mg Take 1 [facility] HCl 5 8-24 tablet by ity o f mg tablet 00:00: mouth [place] 00 before Medical meals. Branch metoclopram 1-0 Yes [id number] 5mg Take 1 [facility] daniel HCl 5 8-24 tablet by ity o f mg tablet 00:00: mouth [place] 00 before Medical meals. Branch metoclopram 1-0 Yes [id number] 5mg Take 1 [facility] daniel HCl 5 8-24 tablet by ity o f mg tablet 00:00: mouth [place] 00 before Medical meals. Branch metoclopram 1-0 Yes [id number] 5mg Take 1 [facility] daniel HCl 5 8-24 tablet by ity o f mg tablet 00:00: mouth [place] 00 before Medical meals. Branch metoclopram 1-0 Yes [id number] 5mg Take 1 [facility] HCl 5 8-24 tablet by ity o f mg tablet 00:00: mouth [place] 00 before Medical meals. Branch metoclopram 1-0 Yes [id number] 5mg Take 1 [facility] daniel HCl 5 8-24 tablet by ity o f mg tablet 00:00: mouth [place] 00 before Medical meals. Branch metoclopram 1-0 Yes [id number] 5mg Take 1 [facility] daniel HCl 5 8-24 tablet by ity o f mg tablet 00:00: mouth [place] 00 before Medical meals. Branch metoclopram 1-0 Yes [id number] 5mg Take 1 [facility] daniel HCl 5 8-24 tablet by ity o f mg tablet 00:00: mouth [place] 00 before Medical meals. Branch metoclopram 2020-0 Yes [id number] 5mg Take 1 [facility] daniel HCl 5 8-24 tablet by ity o f mg tablet 00:00: mouth [place] 00 before Medical meals. Branch metoclopram 1-0 Yes [id number] 5mg Take 1 [facility] daniel HCl 5 8-24 tablet by ity o f mg tablet 00:00: mouth [place] 00 before Medical meals. Branch metoclopram 1-0 Yes [id number] 5mg Take 1 [facility] HCl 5 8-24 tablet by ity o f mg tablet 00:00: mouth [place] 00 before Medical meals. Branch metoclopram 1-0 Yes [id number] 5mg Take 1 [facility] dan[facility] HCl 5 8-24 tablet by ity o f mg tablet 00:00: mouth [place] 00 before Medical meals. Branch metoclopram 1-0 Yes [id number] 5mg Take 1 [facility] dan[facility] HCl 5 8-24 tablet by ity o f mg tablet 00:00: mouth [place] 00 before Medical meals. Branch metoclopram 1-0 Yes [id number] 5mg Take 1 [facility] daniel HCl 5 8-24 tablet by ity o f mg tablet 00:00: mouth [place] 00 before Medical meals. Branch metoclopram 1-0 Yes [id number] 5mg Take 1 [facility] daniel HCl 5 8-24 tablet by ity o f mg tablet 00:00: mouth [place] 00 before Medical meals. Branch metoclopram 1-0 Yes [id number] 5mg Take 1 [facility] daniel HCl 5 8-24 tablet by ity o f mg tablet 00:00: mouth [place] 00 before Medical meals. Branch metoclopram 1-0 Yes [id number] 5mg Take 1 [facility] daniel HCl 5 8-24 tablet by ity o f mg tablet 00:00: mouth [place] 00 before Medical meals. Branch metoclopram 1-0 Yes [id number] 5mg Take 1 [facility] daniel HCl 5 8-24 tablet by ity o f mg tablet 00:00: mouth [place] 00 before Medical meals. Branch metoclopram 1-0 Yes [id number] 5mg Take 1 [facility] daniel HCl 5 8-24 tablet by ity o f mg tablet 00:00: mouth [place] 00 before Medical meals. Branch metoclopram 1-0 Yes [id number] 5mg Take 1 [facility] daniel HCl 5 8-24 tablet by ity o f mg tablet 00:00: mouth [place] 00 before Medical meals. Branch metoclopram 1-0 Yes [id number] 5mg Take 1 [facility] daniel HCl 5 8-24 tablet by ity o f mg tablet 00:00: mouth [place] 00 before Medical meals. Branch metoclopram 1-0 Yes [id number] 5mg Take 1 [facility] daniel HCl 5 8-24 tablet by ity o f mg tablet 00:00: mouth [place] 00 before Medical meals. Branch metoclopram 1-0 Yes [id number] 5mg Take 1 [facility] daniel HCl 5 8-24 tablet by ity o f mg tablet 00:00: mouth [place] 00 before Medical meals. Branch metoclopram 2021-0 3- No [id number] 5mg Take 1 [facility] daniel HCl 5 8-24 04-10 tablet by ity of mg tablet 00:00: 00:00 mouth [place] 00 :00 before Medical meals. Branch metoclopram 2021-0 3- No [id number] 5mg Take 1 [facility] daniel HCl 5 8-24 04-10 tablet by ity of mg tablet 00:00: 00:00 mouth [place] 00 :00 before Medical meals. Branch dicyclomine 2021- No [id number] 20mg Take 1 [facility] 20 mg 8-24 09-20 tablet by ity of tablet 00:00: 00:00 mouth 2 [place] 00 :00 (two) Medical times Branch daily. dicyclomine 2021- No [id number] 20mg Take 1 [facility] 20 mg 8-24 09-20 tablet by ity of tablet 00:00: 00:00 mouth 2 [place] 00 :00 (two) Medical times Branch daily. Dexlansopra 2021- No [id number] 60mg Take 1 [facility] zole 8-24 09-07 [...] Medical times Branch daily with meals. naproxen 2019-1 Yes 220mg Take 220 Univ ers sodium 0-28 mg by ity of (ALEVE) 220 14:52: mouth 2 [place] as mg tablet 17 (two) Medical times Branch daily with meals. naproxen 2019-1 Yes 220mg Take 220 Univ ers sodium [...] Medical times Branch daily with meals. naproxen 2019-1 Yes 220mg Take 220 Univ ers sodium [...] Medical times Branch daily with meals. naproxen 2019-1 Yes 220mg Take 220 [facility] ers sodium 0-28 mg by ity of (ALEVE) 220 14:52: mouth 2 [place] as mg tablet 17 (two) Medical times Branch daily with meals. naproxen 2019-1 Yes 220mg Take 220 Univ ers sodium [...] Medical times Branch daily with meals. naproxen 2019-1 Yes 220mg Take 220 Univ ers sodium [...] Medical times Branch daily with meals. naproxen 2019-1 Yes 220mg Take 220 [facility] ers sodium [...] Yes 150mg 150 mg by [facility] ESTERone 10-01 [facility] ity o f (DEPO-PROVE 11:49: lar route [place] RA) 150 34 every 3 Medical mg/mL (three) Branch injection months. medroxyPROG 2020-0 Yes 150mg 150 mg by [facility] ESTERone - [facility] ity o f (DEPO-PROVE 11:49: lar route [place] RA) 150 34 every 3 Medical mg/mL (three) Branch injection months. medroxyPROG 2020-0 Yes 150mg 150 mg by [facility] ESTERone 10-01 [facility] ity o f (DEPO-PROVE 11:49: lar [...] [facility] [place] [facility] f (DEPO-PROVE 11:49: lar route [place] RA) 150 34 every 3 Medical mg/mL (three) Branch injection months. medroxyPROG 2020-0 Yes 150mg 150 mg by [facility] 10-01 Intr[facility]cu ity o f (DEPO-PROVE 11:49: lar route [place] RA) 150 34 every 3 Medical mg/mL (three) Branch injection months. medroxyPROG 2020-0 Yes 150mg 150 mg by [facility] [place] [facility] o f (DEPO-PROVE 11:49: lar route [place] RA) 150 34 every 3 Medical mg/mL (three) Branch injection months. medroxyPROG 2020-0 Yes 150mg 150 mg by [facility] [place] [facility] o f (DEPO-PROVE 11:49: lar route [place] RA) 150 34 every 3 Medical mg/mL (three) Branch injection months. medroxyPROG 2020-0 Yes 150mg 150 mg by [facility] 10-01 Intr[facility] ity o f (DEPO-PROVE 11:49: lar route [place] RA) 150 34 every 3 Medical mg/mL (three) Branch injection months. medroxyPROG 2020-0 Yes 150mg 150 mg by [facility] [place] [facility] o f (DEPO-PROVE 11:49: lar route [place] RA) 150 34 every 3 Medical mg/mL (three) Branch injection months. medroxyPROG 2020-0 Yes 150mg 150 mg by [facility] 10-01 [facility] ity o f (DEPO-PROVE 11:49: lar route [place] RA) 150 34 every 3 Medical mg/mL (three) Branch injection months. Dexilant 60 2019-0 No 1mg mg capsule, 2- delayed 00:00: release 00 Dexilant 60 2019-0 No 1mg mg capsule, 2 delayed 00:00: release 00 Lyrica 150 2019-0 No 1mg mg capsule 06-01 00:00: 00 Linzess 290 2019-0 No 1mcg mcg capsule 06-01 00:00: 00 ProAir HFA 2019-0 No 1mcg/ac 90 2-07 tuation mcg/actuati 00:00: on aerosol 00 inhaler ondansetron 2019-0 No 1mg 4 mg 2-07 disintegrat 00:00: ing tablet 00 Ambien 10 2018-0 No 1mg mg tablet 2 00:00: 00 atorvastati 2019-0 No 1mg n 40 mg 2-07 tablet 00:00: 00 dicyclomine 2019-0 No 1mg 20 mg 2-07 tablet 00:00: 00 Seroquel 2019-0 No 1mg 300 mg 2-07 tablet 00:00: 00 dicyclomine 2019-0 No 1mg 20 mg 2-07 tablet 00:00: 00 Immunizations Ordered Filled Immunization Date Status Comments [facility] e Immunization Name Name Influenza Virus 2022-01-12 Completed [facility] Vaccine [facility] IM, 00:00:00 [place] [facility] Preserv and ABX Branch Free 6 MO-64 YRS Influenza Virus 2022-01-12 Completed [facility] of Vaccine [facility] IM, 00:00:00 [place] Me dical Preserv and ABX Branch Free 6 MO-64 YRS Influenza Virus 2022-01-12 Completed [facility] y of Vaccine [facility] IM, 00:00:00 [place] Me dical Preserv and ABX Branch Free 6 MO-64 YRS Influenza Virus 2022-01-12 Completed [facility] y of Vaccine [facility] IM, 00:00:00 [place] Me dical Preserv and ABX Branch Free 6 MO-64 YRS Influenza Virus 2022-01-12 Completed [facility] of Vaccine Quad IM, 00:00:00 [place] Me dical Preserv and ABX Branch Free 6 MO-64 YRS Influenza Virus 2022-01-12 Completed [facility]it y of Vaccine Quad IM, 00:00:00 [place] Me dical Preserv and ABX Branch Free 6 MO-64 YRS Influenza Virus 2022-01-12 Completed [facility]it [facility] of Vaccine Quad IM, 00:00:00 [place] Me dical Preserv and ABX Branch Free 6 MO-64 YRS Influenza Virus 2022-01-12 Completed [facility]it y of Vaccine Quad IM, 00:00:00 [place] Me dical Preserv and ABX Branch Free 6 MO-64 YRS Influenza Virus 2022-01-12 Completed [facility]it y of Vaccine Quad IM, 00:00:00 [place] Me dical Preserv and ABX Branch Free 6 MO-64 YRS Influenza Virus 2022-01-12 Completed [facility]it y of Vaccine Quad IM, 00:00:00 [place] Me dical Preserv and ABX Branch Free 6 MO-64 YRS Influenza Virus 2022-01-12 Completed [facility]it y of Vaccine Quad IM, 00:00:00 [place] Me dical Preserv and ABX Branch Free 6 MO-64 YRS Influenza Virus 2022-01-12 Completed Universit y of Vaccine Quad IM, 00:00:00 [place] Me dical Preserv and ABX Branch Free 6 MO-64 YRS Influenza Virus 2022-01-12 Completed Universit y of Vaccine Quad IM, 00:00:00 [place] Me dical Preserv and ABX Branch Free 6 MO-64 YRS Influenza Virus 2022-01-12 Completed Universit y of Vaccine Quad IM, 00:00:00 [place] Me dical Preserv and ABX Branch Free 6 MO-64 YRS Influenza Virus 2022-01-12 Completed Universit y of Vaccine Quad IM, 00:00:00 [place] Me dical Preserv and ABX Branch Free 6 MO-64 YRS Influenza Virus 2022-01-12 Completed Universit y of Vaccine Quad IM, 00:00:00 [place] Me dical Preserv and ABX Branch Free 6 MO-64 YRS Influenza Virus 2022-01-12 Completed [facility]it y of Vaccine Quad IM, 00:00:00 [place] Me dical Preserv and ABX Branch Free 6 MO-64 YRS Influenza Virus 2022-01-12 Completed Universit y of Vaccine Quad IM, 00:00:00 [place] Me dical Preserv and ABX Branch Free 6 MO-64 YRS Influenza Virus 2022-01-12 Completed Universit y of Vaccine Quad IM, 00:00:00 [place] Me dical Preserv and ABX Branch Free 6 MO-64 YRS Influenza Virus 2022-01-12 Completed Universit y of Vaccine Quad IM, 00:00:00 [place] Me dical Preserv and ABX Branch Free 6 MO-64 YRS Influenza Virus 2022-01-12 Completed Universit y of Vaccine Quad IM, 00:00:00 [place] Me dical Preserv and ABX Branch Free 6 MO-64 YRS Influenza Virus 2022-01-12 Completed Universit y of Vaccine Quad IM, 00:00:00 [place] Me dical Preserv and ABX Branch Free 6 MO-64 YRS Influenza Virus 2022-01-12 Completed [facility]it y of Vaccine Quad IM, 00:00:00 [place] Me dical Preserv and ABX Branch Free 6 MO-64 YRS Influenza Virus 2022-01-12 Completed Universit y of Vaccine Quad IM, 00:00:00 [place] Me dical Preserv and ABX Branch Free 6 MO-64 YRS Influenza Virus 2022-01-12 Completed Universit y of Vaccine Quad IM, 00:00:00 [place] Me dical Preserv and ABX Branch Free 6 MO-64 YRS Influenza Virus 2022-01-12 Completed Universit y of Vaccine Quad IM, 00:00:00 [place] Me dical Preserv and ABX Branch Free 6 MO-64 YRS Influenza Virus 2022-01-12 Completed Universit y of Vaccine Quad IM, 00:00:00 [place] Me dical Preserv and ABX Branch Free 6 MO-64 YRS Influenza Virus 2022-01-12 Completed Universit y of Vaccine Quad IM, 00:00:00 [place] Me dical Preserv and ABX Branch Free 6 MO-64 YRS Influenza Virus 2022-01-12 Completed Universit y of Vaccine Quad IM, 00:00:00 [place] Me dical Preserv and ABX Branch Free 6 MO-64 YRS Influenza Virus 2022-01-12 Completed Universit y of Vaccine Quad IM, 00:00:00 [place] Me dical Preserv and ABX Branch Free 6 MO-64 YRS Influenza Virus 2022-01-12 Completed Universit y of Vaccine Quad IM, 00:00:00 [place] Me dical Preserv and ABX Branch Free 6 MO-64 YRS Influenza Virus 2022-01-12 Completed Universit y of Vaccine Quad IM, 00:00:00 [place] Me dical Preserv and ABX Branch Free 6 MO-64 YRS Influenza Virus 2022-01-12 Completed Universit y of Vaccine Quad IM, 00:00:00 [place] Me dical Preserv and ABX Branch Free 6 MO-64 YRS Influenza Virus 2022-01-12 Completed Universit y of Vaccine [facility], 00:00:00 [place] [facility] Free 6 MO-64 YRS Influenza Virus 2022-01-12 Completed [facility], 00:00:00 [place] [facility] 6 MO-64 YRS Influenza Virus 2022-01-12 Completed [facility], 00:00:00 [place] [facility] 6 MO-64 YRS Influenza Virus 2022-01-12 Completed [facility], 00:00:00 [place] [facility] Free 6 MO-64 YRS Influenza Virus 2022-01-12 Completed [facility], 00:00:00 [place] [facility] Free 6 MO-64 YRS Influenza Virus 2022-01-12 Completed [facility], 00:00:00 [place] [facility] Free 6 MO-64 YRS Influenza Virus 2022-01-12 Completed [facility], 00:00:00 [place] [facility] Free 6 MO-64 YRS Influenza Virus 2022-01-12 Completed [facility], 00:00:00 [place] [facility] Free 6 MO-64 YRS Influenza Virus 2022-01-12 Completed [facility], 00:00:00 [place] [facility] Free 6 MO-64 YRS Influenza Virus 2022-01-12 Completed [facility], 00:00:00 [place] [facility] Free 6 MO-64 YRS Influenza Virus 2022-01-12 Completed [facility], 00:00:00 [place] [facility] Free 6 MO-64 YRS Influenza Virus 2022-01-12 Completed [facility], 00:00:00 [place] [facility] Free 6 MO-64 YRS Influenza Virus 2022-01-12 Completed [facility], 00:00:00 [place] [facility] Free 6 MO-64 YRS Influenza Virus 2022-01-12 Completed [facility], 00:00:00 [place] [facility] Free 6 MO-64 YRS Influenza Virus 2022-01-12 Completed [facility], 00:00:00 [place] [facility] Free 6 MO-64 YRS Influenza Virus 2022-01-12 Completed [facility], 00:00:00 [place] [facility] Free 6 MO-64 YRS Influenza Virus 2022-01-12 Completed [facility], 00:00:00 [place] [facility] Free 6 MO-64 YRS Influenza Virus 2022-01-12 Completed [facility], 00:00:00 [place] [facility] Free 6 MO-64 YRS Influenza Virus 2022-01-12 Completed [facility], 00:00:00 [place] [facility] Free 6 MO-64 YRS Influenza Virus 2022-01-12 Completed [facility], 00:00:00 [place] [facility] Free 6 MO-64 YRS Influenza Virus 2022-01-12 Completed [facility], 00:00:00 [place] [facility] Free 6 MO-64 YRS Influenza Virus 2022-01-12 Completed [facility], 00:00:00 [place] [facility] Free 6 MO-64 YRS Influenza Virus 2022-01-12 Completed [facility], 00:00:00 [place] [facility] Free 6 MO-64 YRS Influenza Virus 2022-01-12 Completed [facility], 00:00:00 [place] [facility] Free 6 MO-64 YRS Influenza Virus 2022-01-12 Completed [facility], 00:00:00 [place] [facility] Free 6 MO-64 YRS Influenza Virus 2022-01-12 Completed [facility], 00:00:00 [place] [facility] Free 6 MO-64 YRS Influenza Virus 2022-01-12 Completed [facility], 00:00:00 [place] [facility] Free 6 MO-64 YRS Influenza Virus 2022-01-12 Completed [facility], 00:00:00 [place] [facility] Free 6 MO-64 YRS Influenza Virus 2022-01-12 Completed [facility], 00:00:00 [place] [facility] Free 6 MO-64 YRS Influenza Virus 2022-01-12 Completed [facility], 00:00:00 [place] [facility] Free 6 MO-64 YRS Influenza Virus 2022-01-12 Completed [facility], 00:00:00 [place] [facility] ABX [facility] Free 6 MO-64 YRS Influenza Virus 2022-01-12 Completed [facility], 00:00:00 [place] [facility] Free 6 MO-64 YRS Influenza Virus 2022-01-12 Completed [facility], 00:00:00 [place] [facility] Free 6 MO-64 YRS Influenza Virus 2022-01-12 Completed [facility], 00:00:00 [place] [facility] Free 6 MO-64 YRS Influenza Virus 2022-01-12 Completed [facility], 00:00:00 [place] [facility] Free 6 MO-64 YRS Influenza Virus 2022-01-12 Completed [facility], 00:00:00 [place] [facility] Free 6 MO-64 YRS Influenza Virus 2022-01-12 Completed [facility], 00:00:00 [place] [facility] Free 6 MO-64 YRS Influenza Virus 2022-01-12 Completed [facility], 00:00:00 [place] [facility] Free 6 MO-64 YRS Influenza Virus 2022-01-12 Completed [facility], 00:00:00 [place] [facility] ABX [facility] Free 6 MO-64 YRS Moderna COVID-19 2021-03-23 Completed Vaccine 00:00:00 SARS-COV-2 COVID-19 2020-08-23 Completed [facility]ACCINE 00:00:00 [facility] SARS-COV-2 COVID-19 2020-08-23 Completed [facility] PFIZER VACCINE 00:00:00 [facility] SARS-COV-2 COVID-19 2020-08-23 Completed [facility] PFIZER VACCINE 00:00:00 [place] [facility] SARS-COV-2 COVID-19 2020-08-23 Completed [facility] PFIZER VACCINE 00:00:00 [facility] SARS-COV-2 COVID-19 2020-08-23 Completed [facility] PFIZER VACCINE 00:00:00 [facility] SARS-COV-2 COVID-19 2020-08-23 Completed [facility] PFIZER VACCINE 00:00:00 [facility] SARS-COV-2 COVID-19 2020-08-23 Completed [facility] PFIZER VACCINE 00:00:00 [facility] SARS-COV-2 COVID-19 2020-08-23 Completed [facility] PFIZER VACCINE 00:00:00 [facility] SARS-COV-2 COVID-19 2020-08-23 Completed [facility] PFIZER VACCINE 00:00:00 [facility] SARS-COV-2 COVID-19 2020-08-23 Completed [facility] PFIZER VACCINE 00:00:00 [facility] SARS-COV-2 COVID-19 2020-08-23 Completed [facility] PFIZER VACCINE 00:00:00 [facility] SARS-COV-2 COVID-19 2020-08-23 Completed [facility] PFIZER VACCINE 00:00:00 [facility] SARS-COV-2 COVID-19 2020-08-23 Completed [facility] PFIZER VACCINE 00:00:00 [facility] SARS-COV-2 COVID-19 2020-08-23 Completed [facility] PFIZER VACCINE 00:00:00 [facility] SARS-COV-2 COVID-19 2020-08-23 Completed [facility] PFIZER VACCINE 00:00:00 [facility] SARS-COV-2 COVID-19 2020-08-23 Completed [facility] PFIZER VACCINE 00:00:00 [facility] SARS-COV-2 COVID-19 2020-08-23 Completed [facility] PFIZER VACCINE 00:00:00 [facility] SARS-COV-2 COVID-19 2020-08-23 Completed [facility] PFIZER VACCINE 00:00:00 [facility] SARS-COV-2 COVID-19 2020-08-23 Completed [facility] PFIZER VACCINE 00:00:00 [facility] SARS-COV-2 COVID-19 2020-08-23 Completed [facility] PFIZER VACCINE 00:00:00 [facility] SARS-COV-2 COVID-19 2020-08-23 Completed [facility] PFIZER VACCINE 00:00:00 [facility] SARS-COV-2 COVID-19 2020-08-23 Completed [facility] PFIZER VACCINE 00:00:00 [facility] SARS-COV-2 COVID-19 2020-08-23 Completed [facility] PFIZER VACCINE 00:00:00 [facility] SARS-COV-2 COVID-19 2020-08-23 Completed [facility] PFIZER VACCINE 00:00:00 [facility] SARS-COV-2 COVID-19 2020-08-23 Completed [facility] PFIZER VACCINE 00:00:00 [facility] SARS-COV-2 COVID-19 2020-08-23 Completed [facility] PFIZER VACCINE 00:00:00 [facility] SARS-COV-2 COVID-19 2020-08-23 Completed [facility] PFIZER VACCINE 00:00:00 [facility] SARS-COV-2 COVID-19 2020-08-23 Completed [facility] PFIZER VACCINE 00:00:00 [facility] SARS-COV-2 COVID-19 2020-08-23 Completed [facility] PFIZER VACCINE 00:00:00 [facility] SARS-COV-2 COVID-19 2020-08-23 Completed [facility] PFIZER VACCINE 00:00:00 [facility] SARS-COV-2 COVID-19 2020-08-23 Completed [facility] PFIZER VACCINE 00:00:00 [facility] SARS-COV-2 COVID-19 2020-08-23 Completed [facility] PFIZER VACCINE 00:00:00 [facility] SARS-COV-2 COVID-19 2020-08-23 Completed [facility] PFIZER VACCINE 00:00:00 [facility] SARS-COV-2 COVID-19 2020-08-23 Completed [facility] PFIZER VACCINE 00:00:00 [facility] SARS-COV-2 COVID-19 2020-08-23 Completed [facility] PFIZER VACCINE 00:00:00 [facility] SARS-COV-2 COVID-19 2020-08-23 Completed [facility] PFIZER VACCINE 00:00:00 [facility] SARS-COV-2 COVID-19 2020-08-23 Completed [facility] PFIZER VACCINE 00:00:00 [facility] SARS-COV-2 COVID-19 2020-08-23 Completed [facility] PFIZER VACCINE 00:00:00 [facility] SARS-COV-2 COVID-19 2020-08-23 Completed [facility] PFIZER VACCINE 00:00:00 [facility] SARS-COV-2 COVID-19 2020-08-23 Completed [facility] PFIZER VACCINE 00:00:00 [facility] SARS-COV-2 COVID-19 2020-08-23 Completed [facility] PFIZER VACCINE 00:00:00 [facility] SARS-COV-2 COVID-19 2020-08-23 Completed [facility] PFIZER VACCINE 00:00:00 [facility] SARS-COV-2 COVID-19 2020-08-23 Completed [facility] PFIZER VACCINE 00:00:00 [facility] SARS-COV-2 COVID-19 2020-08-23 Completed [facility] PFIZER VACCINE 00:00:00 [facility] SARS-COV-2 COVID-19 2020-08-23 Completed [facility] PFIZER VACCINE 00:00:00 [facility] SARS-COV-2 COVID-19 2020-08-23 Completed [facility] PFIZER VACCINE 00:00:00 [facility] SARS-COV-2 COVID-19 2020-08-23 Completed [facility] PFIZER VACCINE 00:00:00 [facility] SARS-COV-2 COVID-19 2020-08-23 Completed [facility] PFIZER VACCINE 00:00:00 [facility] SARS-COV-2 COVID-19 2020-08-23 Completed [facility] PFIZER VACCINE 00:00:00 [facility] SARS-COV-2 COVID-19 2020-08-23 Completed [facility] PFIZER VACCINE 00:00:00 [facility] SARS-COV-2 COVID-19 2020-08-23 Completed [facility] PFIZER VACCINE 00:00:00 [facility] SARS-COV-2 COVID-19 2020-08-23 Completed [facility] PFIZER VACCINE 00:00:00 [facility] SARS-COV-2 COVID-19 2020-08-23 Completed [facility] PFIZER VACCINE 00:00:00 [facility] SARS-COV-2 COVID-19 2020-08-23 Completed [facility] PFIZER VACCINE 00:00:00 [facility] SARS-COV-2 COVID-19 2020-08-23 Completed [facility] PFIZER VACCINE 00:00:00 [facility] SARS-COV-2 COVID-19 2020-08-23 Completed [facility] PFIZER VACCINE 00:00:00 [facility] SARS-COV-2 COVID-19 2020-08-23 Completed [facility] PFIZER VACCINE 00:00:00 [facility] SARS-COV-2 COVID-19 2020-08-23 Completed [facility] PFIZER VACCINE 00:00:00 [facility] SARS-COV-2 COVID-19 2020-08-23 Completed [facility] PFIZER VACCINE 00:00:00 [facility] SARS-COV-2 COVID-19 2020-08-23 Completed [facility] PFIZER VACCINE 00:00:00 [facility] SARS-COV-2 COVID-19 2020-08-23 Completed [facility] PFIZER VACCINE 00:00:00 [facility] SARS-COV-2 COVID-19 2020-08-23 Completed [facility] PFIZER VACCINE 00:00:00 [facility] SARS-COV-2 COVID-19 2020-08-23 Completed [facility] PFIZER VACCINE 00:00:00 [facility] SARS-COV-2 COVID-19 2020-08-23 Completed [facility] PFIZER VACCINE 00:00:00 [facility] SARS-COV-2 COVID-19 2020-08-23 Completed [facility] PFIZER VACCINE 00:00:00 [facility] SARS-COV-2 COVID-19 2020-08-23 Completed [facility] PFIZER VACCINE 00:00:00 [facility] SARS-COV-2 COVID-19 2020-08-23 Completed [facility] PFIZER VACCINE 00:00:00 [facility] SARS-COV-2 COVID-19 2020-08-23 Completed [facility] PFIZER VACCINE 00:00:00 [facility] SARS-COV-2 COVID-19 2020-08-23 Completed [facility] PFIZER VACCINE 00:00:00 [facility] SARS-COV-2 COVID-19 2020-08-23 Completed [facility] PFIZER VACCINE 00:00:00 [facility] SARS-COV-2 COVID-19 2020-08-23 Completed [facility] PFIZER VACCINE 00:00:00 [facility] SARS-COV-2 COVID-19 2020-08-23 Completed [facility] PFIZER VACCINE 00:00:00 [facility] SARS-COV-2 COVID-19 2020-08-23 Completed [facility] PFIZER VACCINE 00:00:00 [facility] SARS-COV-2 COVID-19 2020-08-23 Completed [facility] PFIZER VACCINE 00:00:00 [facility] SARS-COV-2 COVID-19 2020-08-23 Completed [facility] PFIZER VACCINE 00:00:00 [facility] SARS-COV-2 COVID-19 2020-08-23 Completed [facility] PFIZER VACCINE 00:00:00 [facility] SARS-COV-2 COVID-19 2020-08-23 Completed [facility] PFIZER VACCINE 00:00:00 [facility] SARS-COV-2 COVID-19 2020-08-23 Completed [facility] PFIZER VACCINE 00:00:00 [facility] SARS-COV-2 COVID-19 2020-08-23 Completed [facility] PFIZER VACCINE 00:00:00 [facility] SARS-COV-2 COVID-19 2020-08-23 Completed [facility] PFIZER VACCINE 00:00:00 [facility] SARS-COV-2 COVID-19 2020-08-23 Completed [facility] PFIZER VACCINE 00:00:00 [facility] SARS-COV-2 COVID-19 2020-08-23 Completed [facility] PFIZER VACCINE 00:00:00 [facility] SARS-COV-2 COVID-19 2020-08-23 Completed [facility] PFIZER VACCINE 00:00:00 [facility] SARS-COV-2 COVID-19 2020-07-20 Completed [facility] PFIZER VACCINE 00:00:00 [facility] SARS-COV-2 COVID-19 2020-07-20 Completed [facility] PFIZER VACCINE 00:00:00 [facility] SARS-COV-2 COVID-19 2020-07-20 Completed [facility] PFIZER VACCINE 00:00:00 [facility] SARS-COV-2 COVID-19 2020-07-20 Completed [facility] PFIZER VACCINE 00:00:00 [facility] SARS-COV-2 COVID-19 2020-07-20 Completed [facility] PFIZER VACCINE 00:00:00 [facility] SARS-COV-2 COVID-19 2020-07-20 Completed [facility] PFIZER VACCINE 00:00:00 [facility] SARS-COV-2 COVID-19 2020-07-20 Completed [facility] PFIZER VACCINE 00:00:00 [facility] SARS-COV-2 COVID-19 2020-07-20 Completed [facility] PFIZER VACCINE 00:00:00 [facility] SARS-COV-2 COVID-19 2020-07-20 Completed [facility] PFIZER VACCINE 00:00:00 [facility] SARS-COV-2 COVID-19 2020-07-20 Completed [facility] PFIZER VACCINE 00:00:00 [facility] SARS-COV-2 COVID-19 2020-07-20 Completed [facility] PFIZER VACCINE 00:00:00 [facility] SARS-COV-2 COVID-19 2020-07-20 Completed [facility] PFIZER VACCINE 00:00:00 [facility] SARS-COV-2 COVID-19 2020-07-20 Completed [facility] PFIZER VACCINE 00:00:00 [facility] SARS-COV-2 COVID-19 2020-07-20 Completed [facility] PFIZER VACCINE 00:00:00 [facility] SARS-COV-2 COVID-19 2020-07-20 Completed [facility] PFIZER VACCINE 00:00:00 [facility] SARS-COV-2 COVID-19 2020-07-20 Completed [facility] PFIZER VACCINE 00:00:00 [facility] SARS-COV-2 COVID-19 2020-07-20 Completed [facility] PFIZER VACCINE 00:00:00 [facility] SARS-COV-2 COVID-19 2020-07-20 Completed [facility] PFIZER VACCINE 00:00:00 [facility] SARS-COV-2 COVID-19 2020-07-20 Completed [facility] PFIZER VACCINE 00:00:00 [facility] SARS-COV-2 COVID-19 2020-07-20 Completed [facility] PFIZER VACCINE 00:00:00 [facility] SARS-COV-2 COVID-19 2020-07-20 Completed [facility] PFIZER VACCINE 00:00:00 [facility] SARS-COV-2 COVID-19 2020-07-20 Completed [facility] PFIZER VACCINE 00:00:00 [facility] SARS-COV-2 COVID-19 2020-07-20 Completed [facility] PFIZER VACCINE 00:00:00 [facility] SARS-COV-2 COVID-19 2020-07-20 Completed [facility] PFIZER VACCINE 00:00:00 [facility] SARS-COV-2 COVID-19 2020-07-20 Completed [facility] PFIZER VACCINE 00:00:00 [facility] SARS-COV-2 COVID-19 2020-07-20 Completed [facility] PFIZER VACCINE 00:00:00 [facility] SARS-COV-2 COVID-19 2020-07-20 Completed [facility] PFIZER VACCINE 00:00:00 [facility] SARS-COV-2 COVID-19 2020-07-20 Completed [facility] PFIZER VACCINE 00:00:00 [facility] SARS-COV-2 COVID-19 2020-07-20 Completed [facility] PFIZER VACCINE 00:00:00 [facility] SARS-COV-2 COVID-19 2020-07-20 Completed [facility] PFIZER VACCINE 00:00:00 [facility] SARS-COV-2 COVID-19 2020-07-20 Completed [facility] PFIZER VACCINE 00:00:00 [facility] SARS-COV-2 COVID-19 2020-07-20 Completed [facility] PFIZER VACCINE 00:00:00 [facility] SARS-COV-2 COVID-19 2020-07-20 Completed [facility] PFIZER VACCINE 00:00:00 [facility] SARS-COV-2 COVID-19 2020-07-20 Completed [facility] PFIZER VACCINE 00:00:00 [facility] SARS-COV-2 COVID-19 2020-07-20 Completed [facility] PFIZER VACCINE 00:00:00 [facility] SARS-COV-2 COVID-19 2020-07-20 Completed [facility] PFIZER VACCINE 00:00:00 [facility] SARS-COV-2 COVID-19 2020-07-20 Completed [facility] PFIZER VACCINE 00:00:00 [facility] SARS-COV-2 COVID-19 2020-07-20 Completed [facility] PFIZER VACCINE 00:00:00 [facility] SARS-COV-2 COVID-19 2020-07-20 Completed [facility] PFIZER VACCINE 00:00:00 [facility] SARS-COV-2 COVID-19 2020-07-20 Completed [facility] PFIZER VACCINE 00:00:00 [facility] SARS-COV-2 COVID-19 2020-07-20 Completed [facility] PFIZER VACCINE 00:00:00 [facility] SARS-COV-2 COVID-19 2020-07-20 Completed [facility] PFIZER VACCINE 00:00:00 [facility] SARS-COV-2 COVID-19 2020-07-20 Completed [facility] PFIZER VACCINE 00:00:00 [facility] SARS-COV-2 COVID-19 2020-07-20 Completed [facility] PFIZER VACCINE 00:00:00 [facility] SARS-COV-2 COVID-19 2020-07-20 Completed [facility] PFIZER VACCINE 00:00:00 [facility] SARS-COV-2 COVID-19 2020-07-20 Completed [facility] PFIZER VACCINE 00:00:00 [facility] SARS-COV-2 COVID-19 2020-07-20 Completed [facility] PFIZER VACCINE 00:00:00 [facility] SARS-COV-2 COVID-19 2020-07-20 Completed [facility] PFIZER VACCINE 00:00:00 [facility] SARS-COV-2 COVID-19 2020-07-20 Completed [facility] PFIZER VACCINE 00:00:00 [facility] SARS-COV-2 COVID-19 2020-07-20 Completed [facility] PFIZER VACCINE 00:00:00 [facility] SARS-COV-2 COVID-19 2020-07-20 Completed [facility] PFIZER VACCINE 00:00:00 [facility] SARS-COV-2 COVID-19 2020-07-20 Completed [facility] PFIZER VACCINE 00:00:00 [facility] SARS-COV-2 COVID-19 2020-07-20 Completed [facility] PFIZER VACCINE 00:00:00 [facility] SARS-COV-2 COVID-19 2020-07-20 Completed [facility] PFIZER VACCINE 00:00:00 [facility] SARS-COV-2 COVID-19 2020-07-20 Completed [facility] PFIZER VACCINE 00:00:00 [facility] SARS-COV-2 COVID-19 2020-07-20 Completed [facility] PFIZER VACCINE 00:00:00 [facility] SARS-COV-2 COVID-19 2020-07-20 Completed [facility] PFIZER VACCINE 00:00:00 [facility] SARS-COV-2 COVID-19 2020-07-20 Completed [facility] PFIZER VACCINE 00:00:00 [facility] SARS-COV-2 COVID-19 2020-07-20 Completed [facility] PFIZER VACCINE 00:00:00 [facility] SARS-COV-2 COVID-19 2020-07-20 Completed [facility] PFIZER VACCINE 00:00:00 [facility] SARS-COV-2 COVID-19 2020-07-20 Completed [facility] PFIZER VACCINE 00:00:00 [facility] SARS-COV-2 COVID-19 2020-07-20 Completed Unive rsity of PFIZER VACCINE 00:00:00 [facility] SARS-COV-2 COVID-19 2020-07-20 Completed Unive rsity of PFIZER VACCINE 00:00:00 [facility] SARS-COV-2 COVID-19 2020-07-20 Completed Unive rsity of PFIZER VACCINE 00:00:00 [facility] SARS-COV-2 COVID-19 2020-07-20 Completed Unive rsity of PFIZER VACCINE 00:00:00 [facility] SARS-COV-2 COVID-19 2020-07-20 Completed Unive rsity of PFIZER VACCINE 00:00:00 [facility] SARS-COV-2 COVID-19 2020-07-20 Completed Unive rsity of PFIZER VACCINE 00:00:00 [facility] SARS-COV-2 COVID-19 2020-07-20 Completed Unive rsity of PFIZER VACCINE 00:00:00 [facility] SARS-COV-2 COVID-19 2020-07-20 Completed Unive rsity of PFIZER VACCINE 00:00:00 [facility] SARS-COV-2 COVID-19 2020-07-20 Completed Unive rsity of PFIZER VACCINE 00:00:00 [facility] SARS-COV-2 COVID-19 2020-07-20 Completed Unive rsity of PFIZER VACCINE 00:00:00 [facility] SARS-COV-2 COVID-19 2020-07-20 Completed Unive rsity of PFIZER VACCINE 00:00:00 [facility] SARS-COV-2 COVID-19 2020-07-20 Completed Unive rsity of PFIZER VACCINE 00:00:00 [facility] SARS-COV-2 COVID-19 2020-07-20 Completed Unive rsity of PFIZER VACCINE 00:00:00 [facility] SARS-COV-2 COVID-19 2020-07-20 Completed Unive rsity of PFIZER VACCINE 00:00:00 [facility] SARS-COV-2 COVID-19 2020-07-20 Completed Unive rsity of PFIZER VACCINE 00:00:00 [facility] SARS-COV-2 COVID-19 2020-07-20 Completed Unive rsity of PFIZER VACCINE 00:00:00 [facility] SARS-COV-2 COVID-19 2020-07-20 Completed Unive rsity of PFIZER VACCINE 00:00:00 [facility] SARS-COV-2 COVID-19 2020-07-20 Completed Unive rsity of PFIZER VACCINE 00:00:00 [facility] SARS-COV-2 COVID-19 2020-07-20 Completed Unive rsity of PFIZER VACCINE 00:00:00 [facility] SARS-COV-2 COVID-19 2020-07-20 Completed Unive rsity of PFIZER VACCINE 00:00:00 [facility] SARS-COV-2 COVID-19 2020-07-20 Completed Unive rsity of PFIZER VACCINE 00:00:00 [facility] SARS-COV-2 COVID-19 2020-07-20 Completed Unive rsity of PFIZER VACCINE 00:00:00 [facility] TDAP 2019-12-11 Completed [facility] 2019-12-11 Completed [facility] 00:[facility]:00 [facility] TDAP 2019-12-11 Completed University [facility] 00:00:00 [facility] TDAP 2019-12-11 Completed University [facility] 00[facility]00:00 [facility] TDAP 2019-12-11 Completed University [facility] 00:00:00 [facility] TDAP 2019-12-11 Completed University [facility] 00:00:00 [facility] TDAP 2019-12-11 Completed University [facility] 00:00:00 [facility] TDAP 2019-12-11 Completed University [facility] 00:00:00 [facility] TDAP 2019-12-11 Completed University [facility] 00:00:00 [facility] TDAP 2019-12-11 Completed University [facility] 00:00:00 [facility] TDAP 2019-12-11 Completed University [facility] 00:00:00 [facility] TDAP 2019-12-11 Completed University [facility] 00:00:00 [facility] TDAP 2019-12-11 Completed University [facility] 00:00:00 [facility] TDAP 2019-12-11 Completed University [facility] 00:00:00 [facility] TDAP 2019-12-11 Completed University [facility] 00:00:00 [facility] TDAP 2019-12-11 Completed University of 00:00:00 [facility] TDAP 2019-12-11 Completed University of 00:00:00 [facility] TDAP 2019-12-11 Completed University of 00:00:00 [facility] TDAP 2019-12-11 Completed University of 00:00:00 [facility] TDAP 2019-12-11 Completed University of 00:00:00 [facility] TDAP 2019-12-11 Completed University of 00:00:00 [facility] TDAP 2019-12-11 Completed University of 00:00:00 [facility] TDAP 2019-12-11 Completed University of 00:00:00 [facility] TDAP 2019-12-11 Completed University of 00:00:00 [facility] TDAP 2019-12-11 Completed University of 00:00:00 [facility] TDAP 2019-12-11 Completed University of 00:00:00 [facility] TDAP 2019-12-11 Completed University of 00:00:00 [facility] TDAP 2019-12-11 Completed University of 00:00:00 [facility] TDAP 2019-12-11 Completed University of 00:00:00 [facility] TDAP 2019-12-11 Completed University of 00:00:00 [facility] TDAP 2019-12-11 Completed University of 00:00:00 [facility] TDAP 2019-12-11 Completed University of 00:00:00 [facility] TDAP 2019-12-11 Completed University of 00:00:00 [facility] TDAP 2019-12-11 Completed University of 00:00:00 [facility] TDAP 2019-12-11 Completed University of 00:00:00 [facility] TDAP 2019-12-11 Completed University of 00:00:00 [facility] TDAP 2019-12-11 Completed University of 00:00:00 [facility] TDAP 2019-12-11 Completed University of 00:00:00 [facility] TDAP 2019-12-11 Completed University of 00:00:00 [facility] TDAP 2019-12-11 Completed University of 00:00:00 [facility] TDAP 2019-12-11 Completed University of 00:00:00 [facility] TDAP 2019-12-11 Completed University of 00:00:00 [facility] TDAP 2019-12-11 Completed University of 00:00:00 [facility] TDAP 2019-12-11 Completed University of 00:00:00 [facility] TDAP 2019-12-11 Completed University of 00:00:00 [facility] TDAP 2019-12-11 Completed University of 00:00:00 [facility] TDAP 2019-12-11 Completed University of 00:00:00 [facility] TDAP 2019-12-11 Completed University of 00:00:00 [facility] TDAP 2019-12-11 Completed University of 00:00:00 [facility] TDAP 2019-12-11 Completed University of 00:00:00 [facility] TDAP 2019-12-11 Completed University of 00:00:00 [facility] TDAP 2019-12-11 Completed University of 00:00:00 [facility] TDAP 2019-12-11 Completed University of 00:00:00 [facility] TDAP 2019-12-11 Completed University of 00:00:00 [facility] TDAP 2019-12-11 Completed University of 00:00:00 [facility] TDAP 2019-12-11 Completed University of 00:00:00 [facility] TDAP 2019-12-11 Completed University of 00:00:00 [facility] TDAP 2019-12-11 Completed University of 00:00:00 [facility] TDAP 2019-12-11 Completed University of 00:00:00 [facility] TDAP 2019-12-11 Completed University of 00:00:00 [facility] TDAP 2019-12-11 Completed University of 00:00:00 [facility] TDAP 2019-12-11 Completed University of 00:00:00 [facility] TDAP 2019-12-11 Completed University of 00:00:00 [facility] TDAP 2019-12-11 Completed University of 00:00:00 [facility] TDAP 2019-12-11 Completed University of 00:00:00 [facility] TDAP 2019-12-11 Completed University of 00:00:00 [facility] TDAP 2019-12-11 Completed University of 00:00:00 [facility] TDAP 2019-12-11 Completed University of 00:00:00 [facility] TDAP 2019-12-11 Completed University of 00:00:00 [facility] TDAP 2019-12-11 Completed University of 00:00:00 [facility] TDAP 2019-12-11 Completed University of 00:00:00 [facility] TDAP 2019-12-11 Completed University of 00:00:00 [facility] TDAP 2019-12-11 Completed University of 00:00:00 [facility] TDAP 2019-12-11 Completed University of 00:00:00 [facility] TDAP 2019-12-11 Completed University of 00:00:00 [facility] TDAP 2019-12-11 Completed University of 00:00:00 [facility] TDAP 2019-12-11 Completed University of 00:00:00 [facility] TDAP 2019-12-11 Completed University of 00:00:00 [facility] TDAP 2019-12-11 Completed University of 00:00:00 [facility] TDAP 2019-12-11 Completed University of 00:00:00 [facility] TDAP 2019-12-11 Completed University of 00:00:00 [facility] TDAP 2019-12-11 Completed University of 00:00:00 [facility] TDAP 2019-12-11 Completed [facility] 00:[facility]:00 [facility] Vital Signs Vital Name Observation Time Observation Value Comments Source Systolic blood 2022-08-02 15:09:00 126 mm[Hg] Univer [facility]ity [facility] Diastolic blood 2022-08-02 15:09:00 82 mm[Hg] Unive [facility]ity of pressure [facility] Heart rate 2022-08-02 15:09:00 114 /min [facility] ty [facility] Body height 2022-08-02 15:09:00 157.5 cm [facility] Body weight 2022-08-02 15:09:00 74.844 kg [facility] BMI 2022-08-02 15:09:00 30.18 kg/m2 [facility] Systolic blood 2022-03-31 19:09:00 96 mm[Hg] [facility]iver [facility]ity [facility] pressure [facility] Diastolic blood 2022-03-31 19:09:00 63 mm[Hg] Unive [facility]ity of pressure [facility] Heart rate 2022-03-31 19:09:00 128 /min [facility] Body temperature 2022-03-31 19:09:00 37.39 [facility] 2022-03-31 19:09:00 157.5 cm [facility] Body weight 2022-03-31 19:09:00 79.833 kg Universi ty [facility] BMI 2022-03-31 19:09:00 32.19 kg/m2 Universi ty of [facility] Systolic blood 2022-02-26 18:01:00 118 mm[Hg] Univer [facility] of pressure [facility] [place] Diastolic blood 2022-02-26 18:01:00 78 mm[Hg] [facility] Heart rate 2022-02-26 18:01:00 114 /min [facility] [place] Body height 2022-02-26 18:01:00 157.5 cm [facility] [place] Body weight 2022-02-26 18:01:00 85.367 kg [facility] [place] BMI 2022-02-26 18:01:00 34.42 kg/m2 [facility] Oxygen saturation in 2022-02-26 18:01:00 95 /min University Arterial blood by [facility] Pulse oximetry Branch Systolic blood 2022-01-12 20:02:00 143 mm[Hg] Univer sity of pressure [facility] Diastolic blood 2022-01-12 20:02:00 82 mm[Hg] Unive rsity of pressure [facility] [place] Heart rate 2022-01-12 20:01:00 120 /min [facility] [place] Body temperature 2022-01-12 20:01:00 37.22 Kimberly Univ ersity of [facility] Body height 2022-01-12 20:01:00 157.5 cm [facility] Body weight 2022-01-12 20:01:00 86.637 kg [facility] BMI 2022-01-12 20:01:00 34.93 kg/m2 [facility] BP Systolic 2022-02-11 11:33:00 BP Diastolic 2022-02-11 11:33:00 Weight Measured 2022-02-11 11:33:00 Height Measured 2022-02-11 11:33:00 Body Temperature 2022-02-11 11:33:00 Heart Rate 2022-02-11 11:33:00 Respiratory Rate 2022-02-11 11:33:00 BP Systolic 2021-11-17 14:44:00 136 mm[Hg] BP Diastolic 2021-11-17 14:44:00 82 mm[Hg] Weight Measured 2021-11-17 14:44:00 188.80 pounds Height Measured 2021-11-17 14:44:00 62.00 inches Body Temperature 2021-11-17 14:44:00 98.00 degrees Heart Rate 2021-11-17 14:44:00 115.00 /min Respiratory Rate 2021-11-17 14:44:00 18.00 /min BP Systolic 2021-11-02 17:45:00 BP Diastolic 2021-11-02 17:45:00 Weight Measured 2021-11-02 17:45:00 183.00 pounds Height Measured 2021-11-02 17:45:00 62.00 inches Body Temperature 2021-11-02 17:45:00 Heart Rate 2021-11-02 17:45:00 Respiratory Rate 2021-11-02 17:45:00 BP Systolic 2021-10-27 13:42:00 95 mm[Hg] BP Diastolic 2021-10-27 13:42:00 61 mm[Hg] Weight Measured 2021-10-27 13:42:00 183.20 pounds Height Measured 2021-10-27 13:42:00 62.00 inches Body Temperature 2021-10-27 13:42:00 98.40 degrees Heart Rate 2021-10-27 13:42:00 110.00 /min Respiratory Rate 2021-10-27 13:42:00 98.00 /min BP Systolic 2021-10-02 14:45:00 116 mm[Hg] BP Diastolic 2021-10-02 14:45:00 69 mm[Hg] Weight Measured 2021-10-02 14:45:00 187.00 pounds Height Measured 2021-10-02 14:45:00 62.00 inches Body Temperature 2021-10-02 14:45:00 98.30 degrees Heart Rate 2021-10-02 14:45:00 107.00 /min Respiratory Rate 2021-10-02 14:45:00 18.00 /min BP Systolic 2018-06-01 11:50:00 107 mm[Hg] BP Diastolic 2018-06-01 11:50:00 70 mm[Hg] Weight Measured 2018-06-01 11:50:00 158.20 pounds Height Measured 2018-06-01 11:50:00 62.00 inches Body Temperature 2018-06-01 11:50:00 97.70 degrees Heart Rate 2018-06-01 11:50:00 102.00 /min Respiratory Rate 2018-06-01 11:50:00 16.00 /min Procedures Procedure Date / Time Performing Clinician Source Performed MEDICAL RELEASE/CLEARANCE 2022-09-06 05:01:00 Doctor Uzair, [facility] FORMS [facility] PATIENT FINANCIAL 2022-08-02 15:01:15 Doctor Uzair, [facility] POLICY [facility] DME/SUPPLY JUSTIFICATION 2022-05-17 06:01:00 Doctor Uzair, [facility] DME/SUPPLY JUSTIFICATION 2022-05-03 06:01:[address] [facility] Name Medical [place] MEDICATION CORRESPONDENCE 2022-04-06 06:01:00 Doctor Uzair, [facility] INSURANCE CORRESPONDENCE 2022-03-17 06:01:00 Doctor Uzair, [facility] DME/SUPPLY JUSTIFICATION 2022-03-11 06:01:00 Doctor Uzair, [facility] EXTERNAL PROVIDER RECORDS 2022-01-28 05:01:00 Doctor Uzair [facility] ASSIGNMENT OF BENEFITS 2022-01-12 19:46:51 Doctor Uzair, [facility] POCT HEMOGLOBIN A1C TEST 2022-01-12 00:00:00 Florecita Atkins [facility] INSURANCE CORRESPONDENCE 2021-11-12 05:01:00 Doctor Uzair, [facility] Plan of Care Planned Activity Planned Date Details Comments Source Goal Plan of Care Note [code = 52596-3] Goal Plan of Care Note [code = 64287-3] Goal Plan of Care Note [code = 32410-6] Goal Plan of Care Note [code = 99823-1] Goal Plan of Care Note [code = 02177-0] Goal Plan of Care Note [code = 04297-8] Goal Plan of Care Note [code = 19425-4] Goal Plan of Care Note [code = 81156-8] Goal Plan of Care Note [code = 75570-6] Goal Plan of Care Note [code = 25756-5] Goal Plan of Care Note [code = 07258-6] Goal Plan of Care Note [code = 74352-9] Goal Plan of Care Note [code = 82256-9] Goal Plan of Care Note [code = 04821-5] Goal Plan of Care Note [code = 91529-9] Goal Plan of Care Note [code = 53813-3] Goal Plan of Care Note [code = 69673-4] Goal Plan of Care Note [code = 52094-9] Goal Plan of Care Note [code = 87340-8] Goal Plan of Care Note [code = 33646-6] Encounters Start End Encounter Admission Attending Care Care Encounter Source Date/Time Date/Time Type Type Clinicians Facility Department ID 2022-09-30 [facility] [id number] Common 08:53:00 [facility] [id number] [facility] 2022-11-22 2022-11-22 Outpatient R TONY FELDMAN [facility] [id number] Univers 13:30:00 13:30:00 TONY FELDMAN [facility] 2022-11-18 2022-11-18 Telephone [facility] 1.2.840.114 [id number] Univers 00:00:00 00:00:00 Florecita HEALTH 350.1.13.10 it y of [place] 4.2.7.2.686 Yordy as JAYY?BLEA [id number] Il alcon MORALES [address] [place] [place] MEDICAL OFFICE [facility] 2022-11-17 2022-11-17 Refill Tony Feldman [facility] 1.2.840.114 [id number] Univers 00:00:00 00:00:00 HEALTH 350.1.13.10 it y of [place] 4.2.7.2.686 [place]ordy as JAYY?BLEA [id number] Il alcon MORALES [address] [place] MEDICAL OFFICE BUILDING 2022-11-05 2022-11-05 Telephone [facility] 1.2.840.114 [id number] Univers 00:00:00 00:00:00 Florecita HEALTH 350.1.13.10 it y of [place] 4.2.7.2.686 [place]ordy as JAYY?BLEA [id number] [address] OFFICE [facility] 2022-10-30 2022-10-30 [facility] 1.2.840.114 [id number] Univers 00:00:00 00:00:00 Florecita HEALTH 350.1.13.10 it y of [place] 4.2.7.2.686 Yordy as JAYY?BLEA [id number] [address] MEDICAL OFFICE [facility] 2022-10-13 2022-10-13 [facility] 1.2.840.114 [id number] [facility] 00:00:00 00:00:00 [facility] 350.1.13.10 it y of [place] 4.2.7.2.686 [place]ordy as JAYY?BLEA [phone] [address] OFFICE [facility] 2022-10-13 2022-10-13 [facility] 1.2.840.114 [id number] [facility] 00:00:00 00:00:00 [facility] 350.1.13.10 it y of [place] 4.2.7.2.686 Yordy as JAYY?BLEA [phone] [address] OFFICE [facility] 2022-09-29 2022-09-29 [facility] 1.2.840.114 [id number] Univers 00:00:00 00:00:00 Princess HEALTH 350.1.13.10 it y of [place] 4.2.7.2.686 Yordy as JAYY?BLEA [id number] [address] MEDICAL OFFICE [facility] 2022-09-23 2022-09-23 [facility] 1.2.840.114 [id number] Univers 00:00:00 00:00:00 Eduardo HEALTH 350.1.13.10 it y of [place] 4.2.7.2.686 Yordy as JAYY?BLEA [id number] [address] OFFICE [facility] 2022-09-06 2022-09-06 Orders Doctor GAGANDEEP 1.2.840.114 [id number] [facility] 00:00:00 00:00:00 Only Unassigned, CLIFF 350.1.13.10 ity of [place] [facility] 4.2.7.2.686 Yordy as [phone] [address] 2022-09-04 2022-09-04 [facility] 1.2.840.114 [id number] Univers 00:00:00 00:00:00 [facility] 350.1.13.10 it y of [place] 4.2.7.2.686 Yordy as JAYY?BLEA [id number] [address] OFFICE [facility] 2022-09-03 2022-09-03 [facility] 1.2.840.114 [id number] [facility] 00:00:00 00:00:00 [facility] 350.1.13.10 it y of [place] 4.2.7.2.686 Yordy as JAYY?BLEA [id number] [address] OFFICE [facility] 2022-09-01 2022-09-01 [facility] 1.2.840.114 [id number] Univers 00:00:00 00:00:00 [facility] 350.1.13.10 it y of [place] 4.2.7.2.686 Yordy as JAYY?BLEA [phone] [address] OFFICE [facility] 2022-09-01 2022-09-01 [facility] 1.2.840.114 [id number] Univers 00:00:00 00:00:00 [facility] 350.1.13.10 it y of [place] 4.2.7.2.686 Yordy as JAYY?BLEA [id number] [address] OFFICE [facility] 2022-09-01 2022-09-01 [facility] 1.2.840.114 [id number] Univers 00:00:00 00:00:00 [facility] 350.1.13.10 it y of [place] 4.2.7.2.686 Yordy as JAYY?BLEA [id number] Il dicbrooklynn PEREZ [address] [place] MEDICAL OFFICE [facility] 2022-09-01 2022-09-01 Telephone [facility] 1.2.840.114 [id number] Univers 00:00:00 00:00:00 [facility] 350.1.13.10 it y of [place] 4.2.7.2.686 Yordy as JAYY?BLEA [id number] Il alcon PEREZ 044 [facility] OFFICE [facility] 2022-08-31 2022-08-31 [facility] 1.2.840.114 [id number] Univers 00:00:00 00:00:00 [facility] 350.1.13.10 it y of [place] 4.2.7.2.686 Yordy as JAYY?BLEA [id number] Il alcon PEREZ [address] [place] [address] OFFICE [facility] 2022-08-30 2022-08-30 [facility] 1.2.840.114 [id number] Univers 00:00:00 00:00:00 [facility] 350.1.13.10 it y of [place] 4.2.7.2.686 Yordy as JAYY?BLEA [phone] Il dicbrooklynn PEREZ [address] [place] [address] 2022-08-29 2022-08-29 [facility] 1.2.840.114 [id number] Univers 00:00:00 00:00:00 [facility] HEALTH 350.1.13.10 it y of [place] 4.2.7.2.686 Yordy as JAYY?BLEA [phone] Il dicbrooklynn PEREZ 044 [facility] OFFICE [facility] 2022-08-23 2022-08-23 Refill Ashely, [facility] 1.2.840.114 [id number] Univers 00:00:00 00:00:00 HEALTH 350.1.13.10 it y of [place] 4.2.7.2.686 Yordy as JAYY?BLEA [phone] Il alcon PEREZ 220 [facility] OFFICE [facility] 2022-08-20 2022-08-20 Telephone [facility] [id number] Univers 00:00:00 00:00:00 HEALTH 350.1.13.10 it y of [place] 4.2.7.2.686 Yordy as JAYY?BLEA [id number] [facility] 220 [facility] OFFICE [facility] 2022-08-19 2022-08-19 [facility] 1.2.840.114 [id number] Univers 00:00:00 00:00:00 Florecita HEALTH 350.1.13.10 it y of [place] 4.2.7.2.686 Yordy as JAYY?BLEA [id number] [address] OFFICE [facility] 2022-08-18 2022-08-18 [facility] 1.2.840.114 [id number] Univers 00:00:00 00:00:00 Florecita HEALTH 350.1.13.10 it y of [place] 4.2.7.2.686 Yordy as JAYY?BLEA [phone] [address] OFFICE [facility] 2022-08-16 2022-08-16 Telephone Tony Feldman [facility] [id number] Univers 00:00:00 00:00:00 HEALTH 350.1.13.10 it y of [place] 4.2.7.2.686 Yordy as JAYY?BLEA [id number] [address] OFFICE [facility] 2022-08-13 2022-08-13 [facility] [id number] Univers 00:00:00 00:00:00 Vincenzo H HEALTH 350.1.13.10 it y of [place] 4.2.7.2.686 Yordy as JAYY?BLEA [phone] [address] OFFICE [facility] 2022-08-12 2022-08-12 [facility] [id number] Univers 00:00:00 00:00:00 Vincenzo H PRIMARY 350.1.13.10 it y of [place]2.[place] [facility] [id number] [address] 2022-08-122022-08-12 Telephone Tony Feldman [facility] [id number] Univers 00:00:00 00:00:00 HEALTH 350.1.13.10 it y of [place] 4.2.7.2.686 Yordy as JAYY?BLEA [phone] Il alcon [facility] [address] MEDICAL OFFICE [facility] 2022-08-03 2022-08-03 Refill [facility] 1.2.840.114 [id number] Univers 00:00:00 00:00:00 Florecita [facility] 350.1.13.10 it y of [place] 4.2.7.2.686 Yordy as JAYY?BLEA [phone] [place] talisha[address] OFFICE [facility] 2022-08-03 2022-08-03 Refill [facility] 1.2.840.114 [id number] Univers 00:00:00 00:00:00 HEALTH 350.1.13.10 it y of [place] 4.2.7.2.686 Yordy as JAYY?BLEA [phone] [address] OFFICE [facility] 2022-08-02 2022-08-02 Outpatient R [facility] [id number] Univers 10:21:39 23:59:00 FLORECITA [facility]y of [facility] 2022-08-02 2022-08-02 Office [facility] 1.2.840.114 [id number] Univers 10:15:00 10:30:00 Visit [facility] 350.1.13.10 it y of [place] 4.2.7.2.686 Yordy as JAYY?BLEA [phone] [address] OFFICE [facility] 2022-08-02 2022-08-02 Orders Doctor GAGANDEEP 1.2.840.114 [id number] Univers 00:00:00 00:00:00 Only Unassigned, CLIFF 350.1.13.10 ity of [place] [facility] 4.2.7.2.686 Yordy as [phone] [address] 2022-08-02 2022-08-02 Telephone [facility] 1.2.840.114 [id number] Univers 00:00:00 00:00:00 [facility] HEALTH 350.1.13.10 it y of [place] 4.2.7.2.686 Yordy as JAYY?BLEA [phone] Il alcon PEREZ [address] [place] [address] OFFICE [facility] 2022-07-25 2022-07-25 [facility] 1.2.840.114 [id number] Univers 00:00:00 00:00:00 [facility] 350.1.13.10 it y of [place] 4.2.7.2.686 Yordy as JAYY?BLEA [id number] [facility] ANA [address] [place] [address] 2022 2022 [facility]patient [facility] [id number] Univers 15:00:00 15:00:00 [facility] 2022-07-12 2022-07-12 [facility]patient [facility] [id number] Univers 13:45:00 13:45:00 [facility] 2022-06-27 2022-06-27 [facility] 1.2.840.114 [id number] [facility] 00:00:00 00:00:00 [facility] 350.1.13.10 it y of [place] 4.2.7.2.686 Yordy as JAYY?BLEA [phone] [facility] ANA [address] [place] [address] 2022-06-03 2022-06-03 [facility] 1.2.840.114 [id number] Univers 00:00:00 00:00:00 [facility] HEALTH 350.1.13.10 it y of [place] 4.2.7.2.686 [place]y as JAYY?BLEA [phone] Il alcon PEREZ [address] [place] [address] 2022-06-03 2022-06-03 Telephone Tony Feldman [facility] 1.2.432.379 [id number] Univers 00:00:00 00:00:00 HEALTH 350.1.13.10 it y of [place] 4.2.7.2.686 [place]y as JAYY?BLEA [phone] [facility] MEDICAL OFFICE [facility] 2022-06-03 2022-06-03 [facility] 1.2.840.114 [id number] Univers 00:00:00 00:00:00 Princess HEALTH 350.1.13.10 it y of [place] 4.2.7.2.686 Yordy as JAYY?BLEA [phone] [address] OFFICE [facility] 2022-05-19 2022-05-19 [facility] 1.2.840.114 [id number] Univers 00:00:00 00:00:00 [facility] 350.1.13.10 it y of [place] 4.2.7.2.686 [place] as JAYY?BLEA [id number] [address] 2022-05-17 2022-05-17 [facility] 1.2.840.114 [id number] Univers 00:00:00 00:00:00 [facility] 350.1.13.10 it y of [place] 4.2.7.2.686 [place] as JAYY?BLEA [id number] [address] OFFICE [facility] 2022-05-17 2022-05-17 Orders Doctor GAGANDEEP 1.2.840.114 [id number] Univers 00:00:00 00:00:00 Only Unassigned, CLIFF 350.1.13.10 ity of [place] [facility] 4.2.7.2.686 Yordy as [phone] [address] 2022-05-15 2022-05-15 [facility] 1.2.840.114 [id number] Univers 00:00:00 00:00:00 [facility] 350.1.13.10 it y of [place] 4.2.7.2.686 Y[place]y as JAYY?BLEA [phone] [address] OFFICE [facility] 2022-05-07 2022-05-07 [facility] 1.2.840.114 [id number] Univers 00:00:00 00:00:00 [facility] 350.1.13.10 it y of [place] 4.2.7.2.686 [place]ordy as JAYY?BLEA [phone] [facility] [address] MEDICAL OFFICE [facility] 2022-05-03 2022-05-03 [facility]kin [facility] 1.2.840.114 [id number] Univers 00:00:00 00:00:00 Princess HEALTH 350.1.13.10 it y of [place] 4.2.7.2.686 Yordy as JAYY?BLEA [phone] [facility] [address] MEDICAL OFFICE [facility] 2022-05-03 2022-05-03 Orders Doctor GAGANDEEP 1.2.840.114 [id number] Univers 00:00:00 00:00:00 Only Unassigned, CLIFF 350.1.13.10 ity of [place] [facility] 4.2.7.2.686 Yordy as [phone] [facility] [address] 2022-04-22 2022-04-22 Telephone [facility] 1.2.840.114 [id number] Univers 00:00:00 00:00:00 [place] HEALTH 350.1.13.10 it y of [place] [facility] 4.2.7.2.686 [place] as JAYY?BLEA [id number] [address] OFFICE [facility] 2022-04-16 2022-04-16 Telephone Tony Feldman [facility] 1.2.233.377 [id number] Univers 00:00:00 00:00:00 HEALTH 350.1.13.10 it y of [place] 4.2.7.2.686 Yordy as JAYY?BLEA [phone] [facility] [address] MEDICAL OFFICE [facility] 2022-04-12 2022-04-12 Telephone ESTELA Callahan 1.2.252.036 [id number] Univers 00:00:00 00:00:00 Bernadine Erika MAHER 350.1.13.10 i ty of [place] [phone] [facility] [address] 2022-04-06 2022-04-06 Orders Doctor GAGANDEEP 1.2.840.114 [id number] Univers 00:00:00 00:00:00 Only Unassigned, CLIFF 350.1.13.10 [facility] 4.2.7.2.686 Y[place]y as [phone] [address] 2022-04-05 2022-04-05 Telephone [facility] 1.2.143.429 [id number] Univers 00:00:00 00:00:00 [facility] HEALTH 350.1.13.10 it y of [place] 4.2.7.2.686 Yordy as JAYY?BLEA [phone] [facility] LISBETH [address] MEDICAL OFFICE [facility] 2022-03-31 2022-03-31 Office [facility] 1.2.840.114 [id number] [facility] 13:15:00 13:30:00 Visit [facility] 350.1.13.10 it y of [place] 4.2.7.2.686 Yordy as JAYY?BLEA [phone] [address] OFFICE [facility] 2022-03-31 2022-03-31 Outpatient R [facility] [id number] [facility] 13:15:00 13:15:00 FLORECITA ity [facility] 2022-03-25 2022-03-25 Telephone [facility] 1.2.840.114 [id number] [facility] 00:00:00 00:00:00 [facility] 350.1.13.10 it y of [place] 4.2.7.2.686 Yordy as JAYY?BLEA [phone] [address] OFFICE [facility] 2022-03-24 2022-03-24 Telephone [facility] 1.2.840.114 [id number] Univers 00:00:00 00:00:00 [place] HEALTH 350.1.13.10 it y of [place] 4.2.7.2.686 Yordy as JAYY?BLEA [phone] [address] MEDICAL OFFICE [facility] 2022-03-23 2022-03-23 Telephone [facility] 1.2.149.459 [id number] Univers 00:00:00 00:00:00 [facility] HEALTH 350.1.13.10 it y of [place] 4.2.7.2.686 Yordy as JAYY?BLEA [phone] Il alcon PEREZ [address] MEDICAL OFFICE [facility] 2022-03-19 2022-03-19 Telephone [facility] 1.2.840.114 [id number] Univers 00:00:00 00:00:00 [place] HEALTH 350.1.13.10 it y of [place] 4.2.7.2.686 Yordy as JAYY?BLEA [phone] Il alcon PEREZ 044 [facility] OFFICE [facility] 2022-03-17 2022-03-17 Telephone [facility] 1.2.840.114 [id number] Univers 00:00:00 00:00:00 [place] HEALTH 350.1.13.10 it y of [place] 4.2.7.2.686 Yordy as JAYY?BLEA [phone] Il alcon PEREZ [address] [place] [address] OFFICE [facility] 2022-03-17 2022-03-17 Orders Doctor GAGANDEEP 1.2.840.114 [id number] Univers 00:00:00 00:00:00 Only Unassigned, CLIFF 350.1.13.10 ity of [place] [facility] 4.2.7.2.686 Yordy as [phone] [address] 2022-03-15 2022-03-15 [facility] 1.2.840.114 [id number] Univers 00:00:00 00:00:00 [place] HEALTH 350.1.13.10 it y of [place] 4.2.7.2.686 Yordy as JAYY?BLEA [phone] [facility] LISBETH[address] OFFICE [facility] 2022-03-11 2022-03-11 Orders Doctor GAGANDEEP 1.2.840.114 [id number] Univers 00:00:00 00:00:00 Only Unassigned, CLIFF 350.1.13.10 ity of [place] [facility] 4.2.7.2.686 Yordy as [phone] [address] 2022-03-10 2022-03-10 Telephone [facility] 1.2.840.114 [id number] Univers 00:00:00 00:00:00 [place] HEALTH 350.1.13.10 it y of [place] 4.2.7.2.686 Y[place]y as JAYY?BLEA [phone] Il alcon MORALES[address] OFFICE [facility] 2022-03-08 2022-03-08 Telephone [facility] 1.2.840.114 [id number] Univers 00:00:00 00:00:00 [place] HEALTH 350.1.13.10 it y of [place] 4.2.7.2.686 [place]y as JAYY?BLEA [phone] Il alcon [address] OFFICE [facility] 2022-03-05 2022-03-05 Refill [facility] 1.2.840.114 [id number] Univers 00:00:00 00:00:00 [place] HEALTH 350.1.13.10 it y of [place] 4.2.7.2.686 [place] as JAYY?BLEA [phone] [address] OFFICE [facility] 2022-03-03 2022-03-03 Refill [facility] 1.2.840.114 [id number] Univers 00:00:00 00:00:00 [facility] HEALTH 350.1.13.10 it y of [place] 4.2.7.2.686 [place] as JAYY?BLEA [phone] [address] OFFICE [facility] 2022-02-26 2022-02-26 Outpatient R [facility] [id number] Univers 13:30:00 14:03:53 PRINCESS ity [facility] 2022-02-26 2022-02-26 Office [facility] 1.2.840.114 [id number] Univers 13:30:00 14:03:53 Visit [facility] HEALTH 350.1.13.10 it y of [place] 4.2.7.2.686 [place]y as JAYY?BLEA [phone] [address] OFFICE [facility] 2022-02-11 2022-02-11 Outpatient [id number] 00:00:00 00:00:00 Visit [id number] 2022-02-03 2022-02-03 [facility] 1.2.840.114 [id number] Univers 00:00:00 00:00:00 [facility] 350.1.13.10 it y of [place] 4.2.7.2.686 [place] as JAYY?BLEA [phone] [address] MEDICAL OFFICE BUILDING 2022-01-28 2022-01-28 Orders Doctor GAGANDEEP 1.2.840.114 [id number] Univers 00:00:00 00:00:00 Only Unassigned, CLIFF 350.1.13.10 ity of [place] [facility] 4.2.7.2.686 [place]ordy as [phone] [place] [address] [address] 2022-01-24 2022-01-24 [facility] 1.2.840.114 [id number] Univers 00:00:00 00:00:00 [facility] 350.1.13.10 it y of [place] 4.2.7.2.686 [place] as JAYY?BLEA [phone] [address] OFFICE [facility] 2022-01-18 2022-01-18 Telephone [facility] 1.2.840.114 [id number] Univers 00:00:00 00:00:00 [place] MULTISPEC 350.1.13.10 ity of [place] 4.2.7.2.[place] [phone] [facility] AND MIMBRES [address] [facility] 2022-01-17 2022-01-17 [facility] 1.2.840.114 [id number] Univers 00:00:00 00:00:00 [facility] 350.1.13.10 it y of [place] 4.2.7.2.686 [place] as JAYY?BLEA [phone] [address] MEDICAL OFFICE BUILDING 2022-01-15 2022-01-15 Outpatient R [facility] [id number] Univers 14:30:00 14:30:00 PRINCESS [facility] 2022-01-14 2022-01-14 [facility] 1.2.840.114 [id number] Univers 00:00:00 00:00:00 [facility] 350.1.13.10 it y of [place] 4.2.7.2.686 [place] as JAYY?BLEA [phone] [address] OFFICE [facility] 2022-01-13 2022-01-13 Refill [facility] 1.2.840.114 [id number] Univers 00:00:00 00:00:00 [facility] 350.1.13.10 it y of [place] 4.2.7.2.686 [place] as JAYY?BLEA [id number] [address] OFFICE [facility] 2022-01-12 2022-01-12 Outpatient R [facility] [id number] Univers 15:15:00 15:17:01 [facility] 2022-01-12 2022-01-12 Office [facility] 1.2.840.114 [id number] Univers 15:15:00 15:17:01 Visit [facility] 350.1.13.10 it y of [place] 4.2.7.2.686 [place]y as JAYY?BLEA [phone] [address] OFFICE [facility] 2022-01-12 2022-01-12 Orders Doctor GAGANDEEP 1.2.840.114 [id number] Univers 00:00:00 00:00:00 Only Unassigned, CLIFF 350.1.13.10 ity of [place] [facility] 4.2.7.2.686 Yordy as [phone] [address] 2022-01-09 2022-01-09 [facility] 1.2.840.114 [id number] Univers 00:00:00 00:00:00 [facility] 350.1.13.10 it y of [place] 4.2.7.2.686 Yordy as JAYY?BLEA [phone] [address] MEDICAL OFFICE [facility] 2022-01-06 2022-01-06 Telephone [facility] 1.2.840.114 [id number] Univers 00:00:00 00:00:00 [place] HEALTH 350.1.13.10 it y of [place] 4.2.7.2.686 Yordy as JAYY?BLEA [phone] [facility] [address] MEDICAL OFFICE [facility] 2021-12-30 2021-12-30 [facility] 1.2.840.114 [id number] Univers 00:00:00 00:00:00 [place] HEALTH 350.1.13.10 it y of [place] 4.2.7.2.686 Yordy as JAYY?BLEA [id number] [address] OFFICE [facility] 2021-12-29 2021-12-29 [facility] [id number] Univers 13:30:00 13:30:00 FLORECITA le [facility] 2021-12-25 2021-12-25 Telephone [facility] 1.2.840.114 [id number] Univers 00:00:00 00:00:00 [facility] 350.1.13.10 it y of [place] 4.2.7.2.686 Y[place]y as JAYY?BLEA [id number] [address] OFFICE [facility] 2021-12-12 2021-12-12 [facility] 1.2.840.114 [id number] Univers 00:00:00 00:00:00 [facility] 350.1.13.10 it y of [place] 4.2.7.2.686 Yordy as JAYY?BLEA [id number] [address] OFFICE [facility] 2021-11-23 2021-11-23 Telephone [facility] 1.2.840.114 [id number] Univers 00:00:00 00:00:00 [facility] HEALTH 350.1.13.10 it y of [place] 4.2.7.2.686 [place]y as JAYY?BLEA [phone] [address] OFFICE [facility] 2021-11-17 2021-11-17 Telephone [facility] 1.2.840.114 [id number] Univers 00:00:00 00:00:00 [place] HEALTH 350.1.13.10 it y of [place] 4.2.7.2.686 Y[place]y as JAYY?BLEA [phone] [facility] [address] MEDICAL OFFICE [facility] 2021-11-16 2021-11-16 Stefani Leonard[facility]ilian[facility] 1.2.840.114 [id number] Univers 00:00:00 00:00:00 [place] HEALTH 350.1.13.10 it y of [place] 4.2.7.2.686 Y[place]y as JAYY?BLEA [phone] [facility] 220 [facility] OFFICE [facility] 2021-11-14 2021-11-14 Bob Atkins AZNADIR 1.2.840.114 [id number] Univers 00:00:00 00:00:00 [facility] 350.1.13.10 it y of [facility] 4.2.7.2.686 [place]y as JAYY?BLEA [phone] [address] OFFICE [facility] 2021-11-12 2021-11-12 Orders Doctor GAGANDEEP 1.2.840.114 [id number] Univers 00:00:00 00:00:00 Only Unassigned, CLIFF 350.1.13.10 ity of [facility] 4.2.7.2.686 Yordy as [phone] [facility] [address] 2021-11-01 2021-11-01 GAGANDEEP Montoya 1.2.840.114 [id number] Univers 00:00:00 00:00:00 [place]orecita [place] 350.1.13.10 it y of [facility] 4.2.7.2.686 Yordy as [phone] [facility] [address] 2021-10-31 2021-10-31 KIMBERLY Montoya 1.2.840.114 [id number] 006 Univers 00:00:00 00:00:00 Florecita HOLM 350.1.13.10 i ty of [facility] [place] [phone] [facility] 044 [facility] 2021-10-29 2021-10-29 [facility] 1.2.840.114 [id number] Univers 00:00:00 00:00:00 [place] HEALTH 350.1.13.10 it y of [place] 4.2.7.2.686 [place] as JAYY?BLEA [phone] [facility] PEREZ [address] [place] [address] OFFICE [facility] 2021-10-27 2021-10-27 [facility] 1.2.840.114 [id number] Univers 00:00:00 00:00:00 [place] HEALTH 350.1.13.10 it y of [place] 4.2.7.2.686 Yordy as JAYY?BLEA [phone] [facility] PEREZ [address] [place] [address] 2021-10-22 2021-10-22 [facility] 1.2.840.114 [id number] Univers 00:00:00 00:00:00 [place] HEALTH 350.1.13.10 it y of [place] 4.2.7.2.686 [place]y as JAYY?BLEA [phone] [facility] PEREZ [address] [place] [address] OFFICE [facility] 2021-10-21 2021-10-21 Bob [facility] 1.2.840.114 [id number] Univers 00:00:00 00:00:00 [place] HEALTH 350.1.13.10 it y of [place] 4.2.7.2.686 Yordy as JAYY?BLEA [phone] [facility] PEREZ 220 [facility] 2021-10-19 2021-10-19 [facility] 1.2.840.114 [id number] Univers 00:00:00 00:00:00 [place] HEALTH 350.1.13.10 it y of [place] 4.2.7.2.686 [place]y as JAYY?BLEA [phone] [facility] PEREZ [address] [place] [address] OFFICE [facility] 2021-10-05 2021-10-05 Outpatient Vee YEE [facility] [id number] Univers 14:30:00 14:30:00 [place] ity [facility] 2021-10-05 2021-10-05 Outpatient Vee YEE [facility] [id number] Univers 14:30:00 14:30:00 [place] it[facility] 2021-09-28 2021-09-28 Orders Doctor GAGANDEEP 1.2.840.114 [id number] Univers 00:00:00 00:00:00 Only Unassigned, CLIFF 350.1.13.10 ity of [place] [facility] 4.2.7.2.686 Yordy as [id number] [address] 2021-09-27 2021-09-27 [facility] 1.2.840.114 [id number] Univers 00:00:00 00:00:00 [place] HEALTH 350.1.13.10 it y of [place] 4.2.7.2.686 [place] as JAYY?BLEA [phone] [facility] [address] MEDICAL OFFICE [facility] 2021-09-21 2021-09-21 [facility] 1.2.840.114 [id number] Univers 00:00:00 00:00:00 [place] HEALTH 350.1.13.10 it y of [place] 4.2.7.2.686 Yordy as JAYY?BLEA [phone] [address] OFFICE [facility] 2021-09-10 2021-09-10 Orders Doctor GAGANDEEP 1.2.840.114 [id number] Univers 00:00:00 00:00:00 Only Unassigned, CLIFF 350.1.13.10 ity of [place] [facility] 4.2.7.2.686 Y[place]y as [phone] [address] 2021-09-08 2021-09-08 [facility] 1.2.840.114 [id number] Univers 00:00:00 00:00:00 [place] HEALTH 350.1.13.10 it y of [place] 4.2.7.2.686 [place]y as JAYY?BLEA [id number] [address] MEDICAL OFFICE [facility] 2021-09-08 2021-09-08 Refelkin [facility]ee[facility]UP [facility] 1.2.840.114 [id number] Univers 00:00:00 00:00:00 [place] HEALTH 350.1.13.10 it y of [place] 4.2.7.2.686 [place] as JAYY?BLEA [phone] [address] MEDICAL OFFICE [facility] 2021-09-08 2021-09-08 Telephone [facility] 1.2.840.114 [id number] Univers 00:00:00 00:00:00 [place] HEALTH 350.1.13.10 it y of [place] 4.2.7.2.686 [place] as JAYY?BLEA [phone] [address] MEDICAL OFFICE [facility] 2021-08-31 2021-08-31 Telephone [facility] 1.2.840.114 [id number] Univers 00:00:00 00:00:00 [place] HEALTH 350.1.13.10 it y of [place] 4.2.7.2.686 [place] as JAYY?BLEA [phone] [address] OFFICE [facility] 2021-08-25 2021-08-25 [facility] 1.2.840.114 [id number] Univers 00:00:00 00:00:00 [place] HEALTH 350.1.13.10 it y of [place] 4.2.7.2.686 Yordy as JAYY?BLEA [phone] [address] OFFICE [facility] 2021-08-24 2021-08-24 [facility] 1.2.840.114 [id number] Univers 00:00:00 00:00:00 [place] HEALTH 350.1.13.10 it y of [place] 4.2.7.2.686 [place]y as JAYY?BLEA [id number] [address] OFFICE [facility] 2021-08-23 2021-08-23 [facility] 1.2.840.114 [id number] Univers 00:00:00 00:00:00 [place] HEALTH 350.1.13.10 it y of [place] 4.2.7.2.686 Y[place]y as JAYY?BLEA [phone] [address] OFFICE BUILDING 2021-08-18 2021-08-18 Telephone [facility] 1.2.840.114 [id number] Univers 00:00:00 00:00:00 [place] HEALTH 350.1.13.10 it y of [place] 4.2.7.2.686 [place]y as JAYY?BLEA [phone] [facility] 220 [facility] OFFICE BUILDING 2021-08-18 2021-08-18 Telephone [facility] 1.2.840.114 [id number] Univers 00:00:00 00:00:00 [place]ENE[place] 350.1.13.10 i ty [facility] 4.2.7.2.[place] [phone] [facility] 220 [facility] 2021-08-18 2021-08-18 Orders Doctor GAGANDEEP 1.2.840.114 [id number] Univers 00:00:00 00:00:00 Only Unassigned, CLIFF 350.1.13.10 ity of [place] [facility] 4.2.7.2.686 Yordy as [id number] [address] 2021-08-02 2021-08-02 [facility] 1.2.840.114 [id number] Univers 00:00:00 00:00:00 [place] 350.1.13.10 i ty of [place].2.7.2.[place] [phone] [facility] 044 [facility] 2021-07-30 2021-07-30 [facility] 1.2.840.114 [id number] Univers 00:00:00 00:00:00 [place] HEALTH 350.1.13.10 it y of [place] 4.2.7.2.686 Yordy as PROFESSIO [phone] [facility] [address] OFFICE BUILDING ONE 2021-07-29 2021-07-29 [facility] 1.2.840.114 [id number] Univers 00:00:00 00:00:00 [place] HEALTH 350.1.13.10 it y of [place] 4.2.7.2.686 Yordy as JAYY?BLEA [phone] Il alcon PEREZ [address] MEDICAL OFFICE BUILDING 2021-07-29 2021-07-29 Telephone [facility] 1.2.840.114 [id number] Univers 00:00:00 00:00:00 [place] [facility] 350.1.13.10 it y of [place] 4.2.7.2.686 Yordy as JAYY?BLEA [phone] Il alcon PEREZ 220 [facility] OFFICE [facility] 2021-07-27 2021-07-27 Telephone [facility] 1.2.840.114 [id number] Univers 00:00:00 00:00:00 [place] [facility] 350.1.13.10 it y of [place] 4.2.7.2.686 Yordy as JAYY?BLEA [phone] Il alcon PEREZ 220 [facility] OFFICE [facility] 2021-07-23 2021-07-23 Refill [facility] 1.2.840.114 [id number] Univers 00:00:00 00:00:00 [place] [facility] 350.1.13.10 it y of [place] 4.2.7.2.686 Yordy as JAYY?BLEA [phone] Il alcon PEREZ 220 [facility] OFFICE [facility] 2021-07-22 2021-07-22 Refill [facility] 1.2.840.114 [id number] Univers 00:00:00 00:00:00 [place] [facility] 350.1.13.10 it y of [place] 4.2.7.2.686 Yordy as JAYY?BLEA [phone] Il alcon PEREZ 220 [facility] OFFICE [facility] 2021-07-22 2021-07-22 [facility] 1.2.840.114 [id number] Univers 00:00:00 00:00:00 [place] [facility] 350.1.13.10 it y of [place] 4.2.7.2.686 Yordy as JAYY?BLEA [phone] Il alcon PEREZ 220 [facility] OFFICE [facility] 2021 2021 Telephone [facility] 1.2.840.114 [id number] Univers 00:00:00 00:00:00 [place] 350.1.13.10 it y of [place] 4.2.7.2.686 Yordy as JAYY?BLEA [phone] [facility] LISBETH [address] MEDICAL OFFICE BUILDING 2021-07-06 2021-07-06 Outpatient Vee [facility] [id number] Univers 14:00:00 14:00:00 FLORECITA le [facility] 2021-07-06 2021-07-06 Letter Doctor GAGANDEEP 1.2.840.114 [id number] Univers 00:00:00 00:00:00 (Out) Unassigned, CLIFF 350.1.13.10 ity of [place] [facility] 4.2.7.2.686 Yordy as [phone] [facility] [address] 2021-07-02 2021-07-02 [facility] 1.2.840.114 [id number] Univers 00:00:00 00:00:00 Florecita HOLM 350.1.13.10 i ty of [place] [facility] [place] [phone] [facility] 044 [facility] 2021-06-19 2021-06-19 Outpatient Vee ATKINS [facility] [id number] Univers 11:30:00 11:30:00 FLORECITA terese [facility] 2021-05-24 2021-05-24 Telephone GAGANDEEP Dillon 1.2.840.114 [id number] Univers 00:00:00 00:00:00 Javierterese CORONADO 350.1.13.10 it y of [facility] 4.2.7.2.686 [place]ordy as [phone] [facility] [address] 2021-05-23 2021-05-23 [facility] [id number] Univers 13:00:00 13:32:55 AMIRA le o f [facility] 2021-05-23 2021-05-23 Urgent [facility] 1.2.840.114 [id number] Univers 13:00:00 13:20:00 Care Amira Zhang HEALTH 350.1.13.10 ity of [place] 4.2.7.2.686 [place] as JAYY?BLEA [phone] [place] alcon PEREZ [address] MEDICAL OFFICE BUILDING 2021-05-22 2021-05-22 Outpatient R [facility] [id number] Univers 17:00:00 17:00:00 ity [facility] 2021-05-06 2021-05-06 Bob Barongonzalodilma [facility] 1.2.840.114 [id number] Univers 00:00:00 00:00:00 Florecita HEALTH 350.1.13.10 it y of Edward [facility] 4.2.7.2.686 [place] as PROFESSIO [phone] Il alcon [place] [address] OFFICE BUILDING ONE 2021-05-05 2021-05-05 Outpatient [facility] [id number] Univers 11:30:00 11:30:00 [facility] 2021-05-04 2021-05-04 Telephone [facility] 1.2.551.822 [id number] Univers 00:00:00 00:00:00 [facility] 350.1.13.10 i ty [facility] [place] [phone] Il alcon [place] 220 [facility] 2021-04-03 2021-04-03 Telephone [facility] 1.2.840.114 [id number] Univers 00:00:00 00:00:00 [facility] MedyMatch 350.1.13.10 it y of [place] 4.2.7.2.686 [place] JAYY?BLEA [phone] Il alcon PEREZ [address] MEDICAL OFFICE BUILDING 2021-03-16 2021-03-16 Outpatient R JOSELITO [facility] [id number] Univers 13:00:00 14:14:20 [facility] 2021-03-16 2021-03-16 Office [facility] 1.2.840.114 [id number] Univers 12:59:42 13:29:42 Visit [facility] MedyMatch 350.1.13.10 it y of [place] 4.2.7.2.686 [place] as JAYY?BLEA [phone] [facility] 220 [facility] OFFICE [facility] 2021-03-16 2021-03-16 Outpatient R JOSELITO [facility] [id number] Univers 13:00:00 13:00:00 MO[place]O ity of [facility] 2021-03-16 2021-03-16 Orders Doctor GAGANDEEP 1.2.840.114 [id number] Univers 00:00:00 00:00:00 Only Unassigned, CLIFF 350.1.13.10 ity of [place] [facility] 4.2.7.2.686 Yordy as [phone] [address] 2021-03-10 2021-03-10 Telephone [facility] 1.2.840.114 [id number] Univers 00:00:00 00:00:00 [place] HOLM 350.1.13.10 i ty of [place] [phone] [address] 2021-03-05 2021-03-05 Telephone [facility] 1.2.840.114 [id number] Univers 00:00:00 00:00:00 [place] HEALTH 350.1.13.10 it y of [place] 4.2.7.2.686 [place] as JAYY?BLEA [phone] [address] OFFICE [facility] 2021-03-04 2021-03-04 Telephone [facility] 1.2.840.114 [id number] Univers 00:00:00 00:00:00 [place] HOLM 350.1.13.10 i ty of [place] [phone] [address] 2021-02-16 2021-02-16 Thermal Intelligence Analyst Lab, Ang - Db [facility] 1.2.840.1 14 [id number] Univers 15:21:19 15:36:19 Visit Joselito [place] [facility] 350.1.13.10 ity of [place] 4.2.7.2.686 [place]y as Jayy?Blea [phone] Me dical kn[address] Medical Office Building 2021-02-16 2021-02-16 Office [facility] 1.2.840.114 [id number] Univers 14:17:09 15:18:07 Visit [facility] 350.1.13.10 it y of [place] 4.2.7.2.686 [place] as Jayy?Blea [phone] [place] alcon [address] Medical Office Building 2021-02-16 2021-02-16 Outpatient R JOSELITO [facility] 1035 [id number] Univers 14:00:00 15:18:07 [facility] ity of [facility] Center [facility] 2021-02-16 2021-02-16 Orders Doctor GAGANDEEP 1.2.840.114 [id number] Univers 00:00:00 00:00:00 Only Unassigned, CLIFF 350.1.13.10 ity of [place] [facility] 4.2.7.2.686 [place] as [phone] [address] 2021-02-12 2021-02-12 Telephone [facility] 1.2.840.114 [id number] Univers 00:00:00 00:00:00 [facility] 350.1.13.10 ity of [place] CENTER [phone] [address] [facility] 2021-02-09 2021-02-09 Refill [facility] 1.2.840.114 [id number] Univers 00:00:00 00:00:00 [facility] 350.1.13.10 ity of [place] C[place] [phone] [address] [facility] 2021-02-06 2021-02-06 Telephone Joselito [facility] 1.2.840.114 [id number] Univers 00:00:00 00:00:00 [facility] 350.1.13.10 ity of [place]2.[place] C[place] [phone] [address] [facility]ETES CLINIC 2021-01-30 2021-01-30 Telephone Milly [facility] 1.2.840.114 [id number] Univers 00:00:00 00:00:00 Florecita [facility] 350.1.13.10 it y of [place] Holm 4.2.7.2.686 [place]y as Jayy?Blea [phone] [address] Medical Office [facility] 2021-01-30 2021-01-30 Orders Doctor DONIS 1.2.840.114 [id number] Univers 00:00:00 00:00:00 Only Unassigned, CLIFF 350.1.13.10 ity of [place] [facility] 4.2.7.2.686 Yordy as [id number] [facility] [address] 2021-01-28 2021-01-28 Telephone GAGANDEEP Martinez 1.2.971.339 [id number] Univers 00:00:00 00:00:00 [place]whitney A CLIFF 350.1.13.10 i ty of [facility] 4.2.7.2.686 [place] as [phone] [facility] [address] 2021-01-26 2021-01-26 Outpatient R JOSELITO [facility] [id number] Univers 09:30:00 09:30:00 [place] ity [facility] 2021-01-26 2021-01-26 Outpatient R JOSELITO [facility] [id number] Univers 09:30:00 09:30:00 [facility] ity [facility] 2021-01-26 2021-01-26 Outpatient R JOSELITO [facility] [id number] Univers 09:30:00 09:30:00 [facility] 2021-01-23 2021-01-23 Telephone [facility] 1.2.840.114 [id number] Univers 00:00:00 00:00:00 [facility] 350.1.13.10 it y of Shiraz Holm 4.2.7.2.686 [place]y as Jayy?Blea [phone] [address] Medical Office [facility] 2021-01-19 2021-01-19 Telephone [facility] 1.2.840.114 [id number] Univers 00:00:00 00:00:00 [place] MULTISPEC 350.1.13.10 ity of [place].2.[place].2.[place] CENTER [phone] [address] [facility]ETES CLINIC 2021-01-15 2021-01-15 Telephone [facility] 1.2.840.114 [id number] Univers 00:00:00 00:00:00 [place] MULTISPEC 350.1.13.10 ity of [place]2.[place].2.[place] C[place] [phone] [address] [facility]ETES CLINIC 2020-12-24 2020-12-24 Office [facility] 1.2.840.114 [id number] Univers 08:04:37 10:25:17 Visit [facility] 350.1.13.10 it y of [place] 4.2.7.2.686 [place] as Jayy?Blea [phone] [address] Medical Office [facility] 2020-12-24 2020-12-24 Outpatient Vee ATKINS [facility] [id number] Univers 08:00:00 08:00:00 [facility] 2020-12-17 2020-12-17 [facility] 1.2.840.114 [id number] Univers 00:00:00 00:00:00 [facility] 350.1.13.10 it y of [place] 4.2.7.2.686 [place] Jayy?Blea [phone] [address] Office [facility] 2020-12-17 2020-12-17 Telephone [facility] 1.2.840.114 [id number] Univers 00:00:00 00:00:00 [facility] Health 350.1.13.10 it y of [place] 4.2.7.2.686 [place] as Jayy?Blea [phone] [facility] 220 [facility] Office [facility] 2020-12-16 2020-12-16 Outpatient Vee ATKINS [facility] [id number] Univers 13:00:00 14:14:34 FLORECITA [facility] 2020-12-16 2020-12-16 Telemedici [facility] 1.2.840.114 [id number] Univers 11:36:26 11:51:26 ne Visit Florecita Heard 350.1.13.10 i ty of Shiraz Holm 4.2.7.2.686 [place]y as Jayy?Blea [phone] [facility] lisbeth [address] Medical Office [facility] 2020-12-16 2020-12-16 Refelkin [facility] 1.2.840.114 [id number] Univers 00:00:00 00:00:00 Florecita Holm 350.1.13.10 i ty of [place].2.7.2.[place] essio [phone] [facility] 044 [facility] 2020-12-12 2020-12-12 Refelkin [facility] 1.2.840.114 [id number] Univers 00:00:00 00:00:00 [facility] 350.1.13.10 it y of [place] 4.2.7.2.686 [place] as Jayy?Blea [phone] [facility] lisbeth [address] Medical Office [facility] 2020-12-12 2020-12-12 Orders Doctor GAGANDEEP 1.2.840.114 [id number] Univers 00:00:00 00:00:00 Only Unassigned, CLIFF 350.1.13.10 ity of [place] [facility] 4.2.7.2.686 Yordy as [id number] [address] 2020-12-08 2020-12-08 Outpatient Vee ATKINS [facility] [id number] Univers 13:15:00 13:15:00 FLORECITA le [facility] 2020-12-08 2020-12-08 Outpatient Vee ATKINS [facility] [id number] Univers 13:15:00 13:15:00 FLORECITA le [facility] 2020-11-24 2020-11-24 Outpatient Vee YEE [facility] [id number] Univers 13:00:00 13:00:00 MODESTO le [facility] 2020-11-24 2020-11-24 Outpatient Vee YEE [facility] [id number] [id number] Univers 13:00:00 13:00:00 MODESTO [facility] 2020-10-03 2020-10-03 [facility] 1.2.840.114 [id number] 00:00:00 00:00:00 [facility] 350.1.13.10 [place] 4.2.7.2.686 Professio [phone] [place] [address] Office Building One 2020-09-24 2020-09-24 Orders Doctor GAGANDEEP 1.2.840.114 [id number] 00:00:00 00:00:00 Only Unassigned, CLIFF 350.1.13.10 [place] [facility] 4.2.7.2.686 [id number] 009 2020-09-17 2020-09-17 [facility] 1.2.840.114 [id number] 00:00:00 00:00:00 [facility] 350.1.13.10 [place] 4.2.7.2.686 Professio [phone] [address] One 2020-09-14 2020-09-14 [facility] 1.2.840.114 [id number] 00:00:00 00:00:00 Florecita [place] 350.1.13.10 Edmal[place] 4.2.7.2.686 Professio [phone] [address] 2020-09-04 2020-09-04 Outpatient Vee ATKINS [facility] [id number] [facility] [place] [facility] 09:00:00 09:00:00 [facility] 2020-09-04 2020-09-04 Telemedici [facility] 1.2.840.114 [id number] 07:01:14 07:16:14 ne Visit [facility] 350.1.13.10 [place] 4.2.7.2.686 Professio [phone] [address] One 2020-08-26 2020-08-26 Outpatient Vee ATKINS [facility] [id number] Univers 11:15:00 11:15:00 FLORECITA [facility] 2020-08-26 2020-08-26 Outpatient Vee ATKINS [facility] [id number] Univers 11:15:00 11:15:00 FLORECITA [facility] 2020-08-14 2020-08-14 Telephone Team, [facility] GAGANDEEP 1.2.840.114 [id number] 00:00:00 00:00:00 Health [place] 350.1.13.[address] [facility] [place] [place] 4.2.7.2.686 [id number] 082 2020-07-28 2020-07-28 [facility] [id number] Univers 12:00:00 12:00:00 [facility] 2020-07-15 2020-07-15 Bob [facility] 1.2.840.114 [id number] 00:00:00 00:00:00 [facility] 350.1.13.10 [place] 4.2.7.2.686 Professio [phone] [facility] 044 Office Building One 2020-07-15 2020-07-15 Telephone [facility] 1.2.840.114 [id number] 00:00:00 00:00:00 [place] 350.1.13.10 Luis 4.2.7.2.686 Professio [phone] [facility] 220 Building 2020-07-08 2020-07-08 Outpatient Vee SEYMOURJORGE [facility] [id number] Univers 14:00:00 14:00:00 SOFÍA [facility] 2020-06-30 2020-06-30 Outpatient Vee YEE [facility] [id number] Univers 15:00:00 15:00:00 [facility] 2020-06-17 2020-06-17 Bob [facility] 1.2.840.114 [id number] 00:00:00 00:00:00 Florecita Holm 350.1.13.10 [place] 4.2.7.2.686 Professio [phone] nal 044 Building 2020-06-03 2020-06-03 Orders Doctor GAGANDEEP 1.2.840.114 [id number] 00:00:00 00:00:00 Only Unassigned, CLIFF 350.1.13.10 [place] [facility] 4.2.7.2.686 [id number] 009 2020-05-23 2020-05-23 [facility] 1.2.840.114 [id number] 00:00:00 00:00:00 Florecita [place] 350.1.13.10 Edmalissa [place] 4.2.7.2.686 Professio [phone] [place] [address] Building 2020-05-23 2020-05-23 Telephone [facility] 1.2.840.114 [id number] 00:00:00 00:00:00 [place] MULTISPEC 350.1.13.10 [facility] 4.2.7.2.686 [place] [phone] [place] 220 [facility]ES [facility]INIC 2020-05-22 2020-05-22 Outpatient Vee ATKINS [facility] [id number] Univers 09:00:00 09:00:00 [facility] 2020-05-22 2020-05-22 Telemedici [facility] 1.2.840.114 [id number] 07:35:33 07:50:33 ne Visit [facility] 350.1.13.10 malissa [place] 4.2.7.2.686 Professio [phone] [place] [address] Office Building One 2020-05-21 2020-05-21 Telephone [facility] 1.2.840.114 [id number] 00:00:00 00:00:00 [facility] 350.1.13.10 Edmalissa [place] 4.2.7.2.686 Professio [phone] [place] [address] Office Building One 2020-05-20 2020-05-20 [facility]patient [facility] [id number] Univers 09:15:00 09:15:00 [facility] 2020-05-20 2020-05-20 Telephone [facility] 1.2.840.114 [id number] 00:00:00 00:00:00 [place] 350.1.13.10 [place] 4.2.7.2.686 Professio [phone] [facility] 220 [facility] 2020-05-19 2020-05-19 Orders Doctor GAGANDEEP 1.2.840.114 [id number] 00:00:00 00:00:00 Only Unassigned, CLIFF 350.1.13.10 [place] [facility] 4.2.7.2.686 [id number] 009 2020-05-15 2020-05-15 Telephone [facility] 1.2.840.114 [id number] 00:00:00 00:00:00 [facility] 350.1.13.10 [place] 4.2.7.2.686 Professio [phone] [place] [address] Office Building One 2020-05-13 2020-05-13 [facility] 1.2.840.114 [id number] 00:00:00 00:00:00 [facility] 350.1.13.10 [facility] 4.2.7.2.686 Professio [phone] [place] [address] Office Building One 2020-05-09 2020-05-09 [facility] 1.2.840.114 [id number] 00:00:00 00:00:00 [facility] 350.1.13.10 [facility] 4.2.7.2.686 Professio [phone] [place] [address] Office Building One 2020-05-07 2020-05-07 Outpatient R SARKIS [facility] [id number] Univers 08:30:00 08:30:00 TEA terese [facility] 2020-05-05 2020-05-05 Telephone [facility] 1.2.840.114 [id number] 00:00:00 00:00:00 [place] 350.1.13.10 [place] 4.2.7.2.686 Professio [phone] [facility] 220 [facility] 2020-04-14 2020-04-14 Telephone [facility] 1.2.840.114 [id number] 00:00:00 00:00:00 [place]m 350.1.13.10 [place] 4.2.7.2.686 Professio [phone] [facility] 220 Building 2020-04-14 2020-04-14 Refill [facility] 1.2.840.114 [id number] 00:00:00 00:00:00 [place] Caitlyn 350.1.13.10 [place] 4.2.7.2.686 Professio [phone] [facility] 220 Building 2020-04-11 2020-04-11 Orders Doctor GAGANDEEP 1.2.840.114 [id number] 00:00:00 00:00:00 Only Unassigned, CLIFF 350.1.13.10 [place] [facility] 4.2.7.2.686 [id number] [facility] 2020-04-09 2020-04-09 Telephone [facility] 1.2.840.114 [id number] 00:00:00 00:00:00 [place] 350.1.13.10 [place] 4.2.7.2.686 Professio [phone] [facility] 220 [facility] 2020-04-08 2020-04-08 Telephone Milly [facility] 1.2.840.114 [id number] 00:00:00 00:00:00 [facility] 350.1.13.10 Shiraz [place] 4.2.7.2.686 Professio [phone] [facility] 044 Office Building One 2020-04-01 2020-04-01 Refill [facility] 1.2.840.114 [id number] 00:00:00 00:00:00 [place] 350.1.13.10 [place] 4.2.7.2.686 Professio [phone] [facility] 220 Building 2020-03-31 2020-03-31 Outpatient R JOSELITO [facility] [id number] Univers 14:30:00 14:30:00 MO[place] le [facility] 2020-03-31 2020-03-31 Office Joselito [facility] 1.2.840.114 [id number] 13:18:18 14:18:48 Visit [place] 350.1.13.10 [place] 4.2.7.2.686 Professio [phone] [facility] 220 [facility] 2020-03-31 2020-03-31 Orders Doctor GAGANDEEP 1.2.840.114 [id number] 00:00:00 00:00:00 Only Unassigned, CLIFF 350.1.13.10 [place] [facility] 4.2.7.2.686 [id number] 009 2020-02-20 2020-02-20 Outpatient Vee ATKINS [facility] [id number] Univers 14:15:00 14:15:00 FLORECITA [facility] 2020-02-14 2020-02-14 Outpatient Vee ATKINS [facility] [id number] Univers 08:00:00 08:00:00 FLORECITA [facility] 2020-02-11 2020-02-11 Outpatient R JOSELITO [facility] [id number] Univers 13:00:00 13:00:00 [facility] 2020-01-31 2020-01-31 Outpatient Vee ATKINS [facility] [id number] Univers 09:45:00 09:45:00 FLORECITA [facility] 2020-01-02 2020-01-02 Outpatient Vee ATKINS [facility] [id number] Univers 13:45:00 13:45:00 FLORECITA [facility] 2020-01-01 2020-01-01 Outpatient Vee LORAINEGONZALODILMA [facility] [id number] Univers 11:00:00 11:00:00 FLORECITA [facility] 2019-12-11 2019-12-11 Outpatient R [facility] [id number] Univers 10:20:00 10:20:00 [facility] 2019-10-08 2019-10-08 Outpatient R JOSELITO [facility] [id number] Univers 11:00:00 11:00:00 [facility] 2019-10-02 2019-10-02 Outpatient R MILLY [facility] [id number] Univers 11:15:00 11:15:00 FLORECITA [facility] 2019-09-10 2019-09-10 Outpatient Vee YEE [facility] [id number] Univers 15:30:00 15:30:00 MODESTO [facility] 2019-09-10 2019-09-10 Outpatient R LEONARDOOZZYROB, [facility] [id number] Univers 12:30:00 12:30:00 [place]STO [facility] 2019-08-28 2019-08-28 Outpatient Vee BARONGONZALODILMA, [facility] [id number] Univers 16:00:00 16:00:00 FLORECITA [facility] 2019-08-27 2019-08-27 Outpatient R AUGIE, [facility] [id number] Univers 09:05:00 09:05:00 WONDIFUL itterese [facility] 2019-06-11 2019-06-11 Outpatient R LEONARDONABEELJUAN, [facility] [id number] Univers 14:45:00 14:45:00 [facility] 2018-05-03 2018-05-03 Outpatient Joe Diazt 23 [id number] Common 10:54:00 10:54:00 [place] [facility] [employer] [facility] Results Test Description Test Time Test Comments Results Result Comments Source POCT HEMOGLOBIN A1C TEST 2022-01-12 20:18:00 Test Item Value Reference Range Interpretation Comme nts POCT HBA1C (test code = 4548-4) 9.1 % 4-6 A Lab Interpretation (test code = 19929-1) [facility]normal [facility] [id number] 20:18:00 Test Item Value Reference Range Interpretation Comments POCT HBA1C (test code = 4548-4) 9.1 % 4-6 A Lab Interpretation (test code = Abnormal 68177-5) [facility] [id number] 04:16:21 Test Item Value Reference Range Interpretation Comments TSH, THIRD GENERATION (test <0.010 UIU/ML 0.400-4.100 L code = 2821) LIPID [id number] 03:38:28 Test Item Value Reference Range Interpretation Comments CHOLESTEROL (test 183 MG/DL <200 code = 2210) TRIGLYCERIDES (test 328 MG/DL <150 H code = 2232) HDL CHOLESTEROL (test 47 MG/DL >39 code = 2220) CALC LDL CHOL (test 92 MG/DL <100 NOTE: C ALCULATED LDL code = 2237) IS BASED ON RICADRO-COLLINS METHOD WHICHINCLUDES ADJUSTABLE TRIGLYCERIDE:VL DL CHOLESTEROL RAT IO.THIS FACTOR VARIES B Y MEASURED TRIGLY CERIDE AND NON-HDLCHOL ESTEROL CONCENTRATIONS WITH INCREASED CALCU LATED LDL SEENIN HIGH ER TRIGLYCERIDE OR LOWER NON-HDL SPECIME NS. FOR MOREINFORMATION , SEE CLIENT ANNOUNCE MENT AT [email or web address] RATIO LDL/HDL 1.96 RATIO <3.22 (test code = 223) COMPREHENSIVE METABOLIC [id number] 03:38:28 Test Item Value Reference Range Interpretation Comments GLUCOSE (test code = 164 MG/DL 70-99 H 2216) BUN (test code = 10 MG/DL 6-20 2207) CREATININE (test 0.77 MG/DL 0.60-1.30 code = 221) eGFR (2020 CKD-EPI) 93 >60 (test code = 70198) ML/MIN/1.73 CALC BUN/CREAT (test 13 RATIO 6-28 code = 2235) SODIUM (test code = 142 MEQ/L 523-269 4228) POTASSIUM (test code 4.3 MEQ/L 3.5-5.4 = 2227) CHLORIDE (test code 101 MEQ/L 95-107 = 2214) CARBON DIOXIDE (test 25 MEQ/L 19-31 code = 220) CALCIUM (test code = 9.7 MG/DL 8.5-10.5 2208) PROTEIN, TOTAL (test 6.9 G/DL 6.1-8.3 code = 2229) ALBUMIN (test code = 4.0 G/DL 3.5-5.2 [...] 133 U/L 40-132 H (test code = 2203) AST (test code = 19 U/L 9-40 2218) ALT (test code = 24 U/L 5-40 UNLESS OTH ERWISE 2219) INDICATED, ALL TESTING PERFORM [facility], [address] [place] [address] [facility] DIRECTOR: Derrick HUNTIA NUMBER [id number] CAP ACCREDITATION N O. [id number] COMPREHENSIVE METABOLIC [id number] 00:00:00 Test Item Value Reference Range Interpretation Comments GLUCOSE (test code = 2217) 164 MG/DL BUN (test code = 2208) 10 MG/DL CREATININE (test code = 2214) 0.77 MG/DL eGFR (2020 CKD-EPI) (test code 93 ML/MIN/1.73 = 83342) CALC BUN/CREAT (test code = 13 RATIO 2235) SODIUM (test code = 2231) 142 MEQ/L POTASSIUM (test code = 2228) 4.3 MEQ/L CHLORIDE (test code = 2215) 101 MEQ/L CARBON DIOXIDE (test code = 25 MEQ/L 2205) CALCIUM (test code = 2209) 9.7 MG/DL PROTEIN, TOTAL (test code = 6.9 G/DL 2228) ALBUMIN (test code = 2201) 4.0 G/DL CALC GLOBULIN (test code = 2.9 G/DL 2240) CALC A/G RATIO (test code = 1.4 RATIO 2234) BILIRUBIN, TOTAL (test code = <0.2 MG/DL 2206) ALKALINE PHOSPHATASE (test 133 U/L code = 2204) AST (test code = 2218) 19 U/L ALT (test code = 2219) 24 U/L COMPREHENSIVE METABOLIC [id number] 00:00:00 Test Item Value Reference Range Interpretation Comments GLUCOSE (test code = 2217) 164 MG/DL BUN (test code = 2208) 10 MG/DL CREATININE (test code = 2214) 0.77 MG/DL eGFR (2020 CKD-EPI) (test code 93 ML/MIN/1.73 = 63428) CALC BUN/CREAT (test code = 13 RATIO 2235) SODIUM (test code = 2231) 142 MEQ/L POTASSIUM (test code = 2228) 4.3 MEQ/L CHLORIDE (test code = 2215) 101 MEQ/L CARBON DIOXIDE (test code = 25 MEQ/L 220) CALCIUM (test code = 2209) 9.7 MG/DL PROTEIN, TOTAL (test code = 6.9 G/DL 2228) ALBUMIN (test code = 2201) 4.0 G/DL CALC GLOBULIN (test code = 2.9 G/DL 0) CALC A/G RATIO (test code = 1.4 RATIO 2234) BILIRUBIN, TOTAL (test code = <0.2 MG/DL 2206) ALKALINE PHOSPHATASE (test 133 U/L code = 2204) AST (test code = 2218) 19 U/L ALT (test code = 2219) 24 U/L [id number] 00:00:00 Test Item Value Reference Range Interpretation Comments TSH, THIRD GENERATION (test <0.010 UIU/ML code = 2821) [id number] 00:00:00 Test Item Value Reference Range Interpretation Comments TSH, THIRD GENERATION (test <0.010 UIU/ML code = 2821) [id number] 00:00:00 Test Item Value Reference Range Interpretation Comments TSH, THIRD GENERATION (test <0.010 UIU/ML code = 2821) LIPID [id number] 00:00:00 Test Item Value Reference Range Interpretation Comments CHOLESTEROL (test code = 2210) 183 MG/DL TRIGLYCERIDES (test code = 2232) 328 MG/DL HDL CHOLESTEROL (test code = 2220) 47 MG/DL CALC LDL CHOL (test code = 2237) 92 MG/DL RISK RATIO LDL/HDL (test code = 1.96 RATIO 2238) LIPID [id number] 00:00:00 Test Item Value Reference Range Interpretation Comments CHOLESTEROL (test code = 2210) 183 MG/DL TRIGLYCERIDES (test code = 2232) 328 MG/DL HDL CHOLESTEROL (test code = 2220) 47 MG/DL CALC LDL CHOL (test code = 2237) 92 MG/DL RISK RATIO LDL/HDL (test code = 1.96 RATIO 2238) HEMOGLOBIN [id number] 03:17:10 Test Item Value Reference Range Interpretation Comments HEMOGLOBIN A1c (test 10.6 % 4.2-5.6 H AMERIC AN DIABETES code = 51409) ASSOCIATION [employer] FOR HGB A1C: PREDIABETES/INC REASED [...] ALTERN ATE TESTING OR LABORATORY C ONSULTATION. HEMOGLOBIN [id number] 00:00:00 Test Item Value Reference Range Interpretation Comments HEMOGLOBIN A1c (test code = 96713) 10.6 % HEMOGLOBIN [id number] 00:00:00 Test Item Value Reference Range Interpretation Comments HEMOGLOBIN A1c (test code = 32573) 10.6 % HEMOGLOBIN [id number] 00:00:00 Test Item Value Reference Range Interpretation Comments HEMOGLOBIN A1c (test code = 34420) 10.6 % HCV RNA, PCR QUANT [REFLEX]2018-06-05 00:00:00 Test Item Value Reference Range Interpretation Comments HCV RNA, PCR QUANT (test NOT DETEC IU/ML code = 4571) HCV VIRAL LOG (test code = NOT DETEC LOGIU/ML 34543) HCV RNA, PCR QUANT [REFLEX]2018-06-05 00:00:00 Test Item Value Reference Range Interpretation Comments HCV RNA, PCR QUANT (test NOT DETEC IU/ML code = 4571) HCV VIRAL LOG (test code = NOT DETEC LOGIU/ML 36086) HCV RNA, PCR QUANT [REFLEX]2018-06-05 00:00:00 Test Item Value Reference Range Interpretation Comments HCV RNA, PCR QUANT (test NOT DETEC IU/ML code = 4571) HCV VIRAL LOG (test code = NOT DETEC LOGIU/ML 97655) [id number] 00:00:00 Test Item Value Reference Range Interpretation Comments TSH, THIRD GENERATION (test <0.010 UIU/ML code = 2821) [id number] 00:00:00 Test Item Value Reference Range Interpretation Comments TSH, THIRD GENERATION (test <0.010 UIU/ML code = 2821) [id number] 00:00:00 Test Item Value Reference Range Interpretation Comments TSH, THIRD GENERATION (test <0.010 UIU/ML code = 2821) URINALYSIS W/REFLEX [id number] 00:00:00 Test Item Value Reference Range Interpretation Comments COLOR (test code = 1501) YELLOW APPEARANCE (test code = 1502) CLOUDY SPECIFIC GRAVITY (test code = 1.028 1503) LEUKOCYTE ESTERASE (test code = NEGATIVE 1504) NITRITE (test code = 1505) NEGATIVE pH (test code = 1506) 6.0 PROTEIN (test code = 1507) NEGATIVE GLUCOSE (test code = 1508) 3+ KETONES (test code = 1509) NEGATIVE UROBILINOGEN (test code = 1510) <2.0 MG/DL BILIRUBIN (test code = 1511) NEGATIVE OCCULT BLOOD (test code = 1512) NEGATIVE URINALYSIS W/REFLEX [id number] 00:00:00 Test Item Value Reference Range Interpretation Comments COLOR (test code = 1501) YELLOW APPEARANCE (test code = 1502) CLOUDY SPECIFIC GRAVITY (test code = 1.028 1503) LEUKOCYTE ESTERASE (test code = NEGATIVE 1504) NITRITE (test code = 1505) NEGATIVE pH (test code = 1506) 6.0 PROTEIN (test code = 1507) NEGATIVE GLUCOSE (test code = 1508) 3+ KETONES (test code = 1509) NEGATIVE UROBILINOGEN (test code = 1510) <2.0 MG/DL BILIRUBIN (test code = 1511) NEGATIVE OCCULT BLOOD (test code = 1512) NEGATIVE MICROALBUMIN/CREATININE, RANDOM AND [id number] 00:00:00 Test Item Value Reference Range Interpretation Comments CREATININE, URINE, CONC. (test 24.6 MG/DL code = 2072) ALBUMIN, URINE, RANDOM (test code 0.4 MG/DL = 36430) CALC ALBUMIN/CREAT, RND (test code 16 MG/G = 91853) MICROALBUMIN/CREATININE, RANDOM AND [id number] 00:00:00 Test Item Value Reference Range Interpretation Comments CREATININE, URINE, CONC. (test 24.6 MG/DL code = 2072) ALBUMIN, URINE, RANDOM (test code 0.4 MG/DL = 70914) CALC ALBUMIN/CREAT, RND (test code 16 MG/G = 25299) HEPATITIS PROFILE (A,B,C)2018-06-02 00:00:00 Test Item Value Reference Range Interpretation Comments HEPATITIS A TOTAL AB (test code REACTIVE = 9653) HEPATITIS B SURF AG (test code = NON-REACTIVE 2739) HEP B CORE TOTAL AB (test code = NON-REACTIVE 2729) HEPATITIS B SURFACE AB (test NON-REACTIVE code = 2737) HEPATITIS C ANTIBODY (test code REACTIVE = 4675) HCV INDEX (test code = 56476) 10.17 INTERPRETATION HEPATITIS A: (NOTE) (test code = 2552) INTERPRETATION HEPATITIS B: (NOTE) (test code = 16667) INTERPRETATION HEPATITIS C: (NOTE) (test code = 18007) HEPATITIS PROFILE (A,B,C)2018-06-02 00:00:00 Test Item Value Reference Range Interpretation Comments HEPATITIS A TOTAL AB (test code REACTIVE = 2725) HEPATITIS B SURF AG (test code = NON-REACTIVE 2739) HEP B CORE TOTAL AB (test code = NON-REACTIVE 2729) HEPATITIS B SURFACE AB (test NON-REACTIVE code = 2737) HEPATITIS C ANTIBODY (test code REACTIVE = 4675) HCV INDEX (test code = 00368) 10.17 INTERPRETATION HEPATITIS A: (NOTE) (test code = 2552) INTERPRETATION HEPATITIS B: (NOTE) (test code = 70019) INTERPRETATION HEPATITIS C: (NOTE) (test code = 54093) HIV AB/AG COMBO RFLX [id number] 00:00:00 Test Item Value Reference Range Interpretation Comments HIV 1/2 4TH GEN, RFLX CONF (test NON-REACTIVE code = 3514) HIV AB/AG COMBO RFLX [id number] 00:00:00 Test Item Value Reference Range Interpretation Comments HIV 1/2 4TH GEN, RFLX CONF (test NON-REACTIVE code = 3514) HEPATITIS C REFLEX [id number] 00:00:00 Test Item Value Reference Range Interpretation Comments HEPATITIS C ANTIBODY (test code = REACTIVE 4675) HCV INDEX (test code = 94966) 10.17 HEPATITIS C REFLEX [id number] 00:00:00 Test Item Value Reference Range Interpretation Comments HEPATITIS C ANTIBODY (test code = REACTIVE 4675) HCV INDEX (test code = 90430) 10.17 HEPATITIS A IgM [REFLEX]2018-06-02 00:00:00 Test Item Value Reference Range Interpretation Comments HEPATITIS A IgM (test code = NON-REACTIVE 8) CBC W/AUTO [id number] 00:00:00 Test Item Value Reference Range Interpretation Comments WBC (test code = 1001) 5.1 K/UL RBC (test code = 1002) 3.67 M/UL HEMOGLOBIN (test code = 1003) 8.0 G/DL HEMATOCRIT (test code = 1004) 27.3 % MCV (test code = 1005) 74.4 fL MCH (test code = 1006) 21.8 PG MCHC (test code = 1007) 29.3 G/DL RDW (test code = 1038) 21.1 % NEUTROPHILS (test code = 1008) 69.4 % LYMPHOCYTES (test code = 1010) 21.1 % MONOCYTES (test code = 1011) 6.9 % EOSINOPHILS (test code = 1012) 1.8 % BASOPHILS (test code = 1013) 0.8 % PLATELET COUNT (test code = 1015) 208 K/UL COMMENTS (test code = 1016) (NOTE) CBC W/AUTO [id number] 00:00:00 Test Item Value Reference Range Interpretation Comments WBC (test code = 1001) 5.1 K/UL RBC (test code = 1002) 3.67 M/UL HEMOGLOBIN (test code = 1003) 8.0 G/DL HEMATOCRIT (test code = 1004) 27.3 % MCV (test code = 1005) 74.4 fL MCH (test code = 1006) 21.8 PG MCHC (test code = 1007) 29.3 G/DL RDW (test code = 1038) 21.1 % NEUTROPHILS (test code = 1008) 69.4 % LYMPHOCYTES (test code = 1010) 21.1 % MONOCYTES (test code = 1011) 6.9 % EOSINOPHILS (test code = 1012) 1.8 % BASOPHILS (test code = 1013) 0.8 % PLATELET COUNT (test code = 1015) 208 K/UL COMMENTS (test code = 1016) (NOTE) CBC W/AUTO [id number] 00:00:00 Test Item Value Reference Range Interpretation Comments WBC (test code = 1001) 5.1 K/UL RBC (test code = 1002) 3.67 M/UL HEMOGLOBIN (test code = 1003) 8.0 G/DL HEMATOCRIT (test code = 1004) 27.3 % MCV (test code = 1005) 74.4 fL MCH (test code = 1006) 21.8 PG MCHC (test code = 1007) 29.3 G/DL RDW (test code = 1038) 21.1 % NEUTROPHILS (test code = 1008) 69.4 % LYMPHOCYTES (test code = 1010) 21.1 % MONOCYTES (test code = 1011) 6.9 % EOSINOPHILS (test code = 1012) 1.8 % BASOPHILS (test code = 1013) 0.8 % PLATELET COUNT (test code = 1015) 208 K/UL COMMENTS (test code = 1016) (NOTE) HEMOGLOBIN [id number] 00:00:00 Test Item Value Reference Range Interpretation Comments HEMOGLOBIN A1c (test code = 72304) 10.0 % HEMOGLOBIN [id number] 00:00:00 Test Item Value Reference Range Interpretation Comments HEMOGLOBIN A1c (test code = 47664) 10.0 % HEMOGLOBIN [id number] 00:00:00 Test Item Value Reference Range Interpretation Comments HEMOGLOBIN A1c (test code = 01192) 10.0 % COMPREHENSIVE METABOLIC [id number] 00:00:00 Test Item Value Reference Range Interpretation Comments GLUCOSE (test code = 2217) 580 MG/DL BUN (test code = 2208) 16 MG/DL CREATININE (test code = 2214) 0.91 MG/DL eGFR AMER. (test code 86 ML/MIN/1.73 = 30905) eGFR NON- AMER. (test 75 ML/MIN/1.73 code = 70260) CALC BUN/CREAT (test code = 18 RATIO 2235) SODIUM (test code = 2231) 130 MEQ/L POTASSIUM (test code = 2228) 4.9 MEQ/L CHLORIDE (test code = 2215) 95 MEQ/L CARBON DIOXIDE (test code = 21 MEQ/L 2205) CALCIUM (test code = 2209) 9.6 MG/DL PROTEIN, TOTAL (test code = 7.5 G/DL 2228) ALBUMIN (test code = 2201) 4.4 G/DL CALC GLOBULIN (test code = 3.1 G/DL 2240) CALC A/G RATIO (test code = 1.4 RATIO 2234) BILIRUBIN, TOTAL (test code = <0.2 MG/DL 2206) ALKALINE PHOSPHATASE (test 110 U/L code = 2204) AST (test code = 2218) 16 U/L ALT (test code = 2219) 15 U/L COMPREHENSIVE METABOLIC [id number] 00:00:00 Test Item Value Reference Range Interpretation Comments GLUCOSE (test code = 2217) 580 MG/DL BUN (test code = 2208) 16 MG/DL CREATININE (test code = 2214) 0.91 MG/DL eGFR AMER. (test code 86 ML/MIN/1.73 = 29054) eGFR NON- AMER. (test 75 ML/MIN/1.73 code = 34297) CALC BUN/CREAT (test code = 18 RATIO 2235) SODIUM (test code = 2231) 130 MEQ/L POTASSIUM (test code = 2228) 4.9 MEQ/L CHLORIDE (test code = 2215) 95 MEQ/L CARBON DIOXIDE (test code = 21 MEQ/L 220) CALCIUM (test code = 2209) 9.6 MG/DL PROTEIN, TOTAL (test code = 7.5 G/DL 2228) ALBUMIN (test code = 2201) 4.4 G/DL CALC GLOBULIN (test code = 3.1 G/DL 2240) CALC A/G RATIO (test code = 1.4 RATIO 2233) BILIRUBIN, TOTAL (test code = <0.2 MG/DL 2206) ALKALINE PHOSPHATASE (test 110 U/L code = 2204) AST (test code = 2218) 16 U/L ALT (test code = 2219) 15 U/L Notes Date/Time Note Provider Source 2022-11-19 Formatting of this note might be differe nt from the original. Juanis Huitron LVN [facility] 14:31:16-00:[address] of Dexcom due to form ulary reasons 2022-11-19 Formatting of this note might be differe nt from the original. Amalia Kim [facility] 10:44:27-00:00 Alex from [facility] called and [facility] that DEXCOM is needing a prior authorization, or provider can call in preferred rx, Freestyle Dom. Please advise. Call back number: [phone], option 5 2022-11-18 Formatting of this note might be differe nt from the original. Kaitlynn Carter [facility] 17:35:41-00:00 Roya Anne is a 52 year old female Patient is concerned because she did not receive her glucose meter that was ordered for her. Please call patient to advise. Electronically signed by Kaitlynn Carter at 10/24 5:36 PM CDT 2022-11-17 Formatting of this note might be differe nt from the original. Andreea Quiros [facility] 13:47:55-00:00 Patient appt has been r/s 3x and she is out of m edication. Electronically signed by Andreea Quiros at 1:49 PM CDT
[2022-12-17 16:55] LABS: Hematocrit 39.3 % (36.0-45.0); MCV 89.6 fL (80-100); RBC Red Blood Cell Count 4.38 M/uL (3.86-4.86)
[2022-12-17 16:56] LABS: Absolute Lymphocytes (CBC) 1.3 K/uL (0.7-4.9); MPV 8.6 fL (7.6-11.3); Platelets 224 thou/uL (152-406)
--- NOTE | 2022-12-17 17:13 | RAD REPORT ---
EXAM DESCRIPTION: CT - Head Brain Wo Cont - 12/17/2022 5:01 pm CLINICAL HISTORY: Headache COMPARISON: 2019 TECHNIQUE: Computed axial tomography of the head was obtained. IV contrast was not requested. All CT scans are performed using dose optimization technique as appropriate and may include automated exposure control or mA/KV adjustment according to patient size. FINDINGS: An intracranial bleed is not seen The ventricles are normal in caliber No significant hypodense areas within the brain visualized No extra-axial fluid collection is noted. Fluid within the sinuses/ mastoids is not seen IMPRESSION: No acute intracranial abnormality is seen If patient's symptoms persist MRI of the brain would be recommended
[2022-12-17 17:23] LABS: Potassium 4.1 mEq/L (3.5-5.1); Troponin High Sensitivity 3.5 pg/mL (<58.9)
[2022-12-17] MEDS ORDERED: KETOROLAC 30 MG/ML INJ ONE (18:24)
[2022-12-17] MEDS ORDERED: ONDANSETRON 4 MG/2 ML VIAL ONE (19:14)
[2022-12-17] MEDS ORDERED: MORPHINE 4 MG/ML SYR ONE (19:14)
--- NOTE | 2022-12-17 19:40 | EDPHYS ---
Physician Documentation [facility] Name: Roya Anne Age: 52 yrs Sex: Female : 1970 Arrival Date: 12/17/2022 Time: 16:17 Bed 19 Private MD: ED Physician Melo Small HPI: 12/17 17:19 This 52 yrs old Female presents to ER via EMS with complaints of Headache, kb Nausea/Vomiting. 17:19 The patient complains of pain to the top of head. The patient describes the headache as kb constant. Onset: The symptoms/episode began/occurred yesterday. Associated signs and symptoms: Pertinent positives: nausea, vomiting, weakness. Severity of symptoms: At its worst the pain was moderate, in the emergency department the pain is unchanged. Headache History: Denies prior headaches. The symptoms are alleviated by nothing. the symptoms are aggravated by nothing. The patient has not experienced similar symptoms in the past. The patient has not recently seen a physician. Pt reports headache, weakness, chills, runny nose, nausea, vomiting and left arm pain that started yesterday. 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 - Social history:: Smoking status: unknown. ROS: 17:18 Cardiovascular: Negative for chest pain, palpitations, and edema. kb 17:18 Constitutional: Positive for chills. 17:18 Abdomen/GI: Positive for nausea and vomiting, Negative for abdominal pain. 17:18 Neuro: Positive for headache, weakness. 17:18 All other systems are negative. 17:20 ENT: Positive for rhinorrhea. kb Exam: 17:15 Constitutional: This is a well developed, well nourished patient who is awake, alert, kb and in no acute distress. Head/Face: Normocephalic, atraumatic. Eyes: Pupils equal round and reactive to light, extra-ocular motions intact. Lids and lashes normal. Conjunctiva and sclera are non-icteric and not injected. Cornea within normal limits. Periorbital areas with no swelling, redness, or edema. ENT: Moist Mucous membranes Cardiovascular: Regular rate and rhythm with a normal S1 and S2. No gallops, murmurs, or rubs. No pulse deficits. Respiratory: Respirations even and unlabored. No increased work of breathing. Talking in full sentences Abdomen/GI: Soft, non-tender. No distention Skin: Warm, dry with normal turgor. Normal color. MS/ Extremity: Pulses equal, no cyanosis. Neurovascular intact. Full, normal range of motion. Neuro: Awake and alert, GCS 15, oriented to person, place, time, and situation. Moves all extremities. Normal gait. 17:15 ECG was reviewed by the Attending Physician. Vital Signs: 16:20 BP 139 / 82; Pulse 107; Resp 18; Pulse Ox 99% on R/A; Weight 68.04 kg; Height 5 ft. 2 eh3 in. ; 16:20 Body Mass Index 27.44 (68.04 kg, 157.48 cm) eh3 Outlook Coma Score: 17:20 Eye Response: spontaneous(4). Motor Response: obeys commands(6). Verbal Response: kb oriented(5). Total: 15. MDM: 16:20 Patient medically screened. kb 17:20 Differential diagnosis: tension headache, flu, covid, migraine. Data reviewed: vital kb signs, nurses notes. 19:38 Counseling: I had a detailed discussion with the patient and/or guardian regarding the kb historical points, exam findings, and any diagnostic results supporting the discharge/admit diagnosis, lab results, radiology results, the need for outpatient follow up, a family practitioner, to return to the emergency department if symptoms worsen or persist or if there are any questions or concerns that arise at home. 12/17 16:22 Order name: Basic Metabolic Panel; Complete Time: 17:25 kb 12/17 16:22 Order name: CBC with Diff; Complete Time: 17:01 kb 12/17 16:22 Order name: Troponin HS; Complete Time: 17:25 kb 12/17 16:22 Order name: Flu; Complete Time: 17:41 kb 12/17 16:22 Order name: COVID-19 SARS RT PCR; Complete Time: 17:43 kb 12/17 16:22 Order name: CT Head Brain wo Cont; Complete Time: 17:15 kb 12/17 16:22 Order name: EKG; Complete Time: 16:22 kb 12/17 16:22 Order name: EKG - Nurse/Tech; Complete Time: 17:14 kb 12/17 16:22 Order name: IV Saline Lock; Complete Time: 16:24 kb 12/17 16:22 Order name: Labs collected and sent; Complete Time: 16:43 kb 12/17 16:22 Order name: O2 Per Protocol; Complete Time: 16:24 kb 12/17 16:22 Order name: O2 Sat Monitoring; Complete Time: 16:24 kb EC:15 Rate is 106 beats/min. Rhythm is regular. QRS Morley is Normal. LA interval is normal at kb 164 msec. QRS interval is normal at 104 msec. QT interval is normal at 470 msec. Administered Medications: 16:55 Drug: NS 0.9% IV 1000 ml Route: IV; Rate: 1000 ml; Site: right antecubital; eh3 20:02 Follow up: IV Status: Completed infusion; IV Intake: 1000ml eh3 16:55 Drug: metoCLOPramide IVP 10 mg Route: IVP; Site: right antecubital; eh3 20:02 Follow up: Response: No adverse reaction eh3 16:55 Drug: Decadron - Dexamethasone IVP 10 mg Route: IVP; Site: right antecubital; eh3 20:02 Follow up: Response: No adverse reaction eh3 16:55 Drug: diphenhydrAMINE IVP 12.5 mg Route: IVP; Site: right antecubital; eh3 20:02 Follow up: Response: No adverse reaction eh3 18:00 Drug: Ketorolac IVP 15 mg Route: IVP; Site: right antecubital; eh3 20:02 Follow up: Response: No adverse reaction eh3 19:17 Drug: Ondansetron IVP 4 mg Route: IVP; Site: right antecubital; eh3 20:02 Follow up: Response: No adverse reaction eh3 19:17 Drug: morphine IVP or IV 4 mg Route: IVP; Infused Over: 4 mins; Site: right antecubital;eh3 20:01 Follow up: Response: No adverse reaction eh3 Disposition: 20:23 Co-signature as Attending Physician, Melo Small MD I reviewed the patient's care rn provided by the Advanced Practice Provider and agree with the diagnosis and treatment plan. Disposition Summary: 12/17/22 19:39 Discharge Ordered Location: Home kb Condition: Stable kb Diagnosis - Headache kb Followup: kb - With: Emergency Department - When: As needed - Reason: Worsening of condition Followup: kb - With: Private Physician - When: 2 - 3 days - Reason: Recheck today's complaints, Continuance of care, Re-evaluation by your physician Discharge Instructions: - Discharge Summary Sheet kb - General Headache Without Cause, [id number] kb Forms: - Medication Reconciliation Form kb - Thank You Letter kb - Antibiotic Education kb - Prescription Opioid Use kb - Patient Portal Instructions kb - Leadership Thank You Letter kb Signatures: Dispatcher [employer] Sasha Montero, ELISE NAVARRO-Melo Spears MD MD rn [employer] RN RN 3
--- NOTE | 2022-12-17 19:40 | ER ---
Nurse's Notes [facility] Name: Roya Anne Age: 52 yrs Sex: Female : 1970 Arrival Date: 12/17/2022 Time: 16:17 Bed 19 Private MD: Diagnosis: Headache Presentation: 12/17 16:19 Chief complaint: EMS states: toned out to home for h/a, left arm and neck pain, and n/v eh3 started 2 days ago. Ebola Screen: No symptoms or risks identified at this time. Risk Assessment: Do you want to hurt yourself or someone else? Patient reports no desire to harm self or others. Onset of symptoms was December 15, 2022. 16:19 Method Of Arrival: EMS: [facility] eh3 16:19 Acuity: AGATA 3 eh3 16:19 Coronavirus screen: Vaccine status: Patient reports receiving the 2nd dose of the covid eh3 vaccine. Initial Sepsis Screen: Does the patient meet any 2 criteria? No. Patient's initial sepsis screen is negative. Does the patient have a suspected source of infection? No. Patient's initial sepsis screen is negative. Triage Assessment: 16:20 General: Appears in no apparent distress. uncomfortable, Behavior is cooperative, eh3 appropriate for age. Pain: Complains of pain in head, neck and left arm. Neuro: Level of Consciousness is awake, alert, obeys commands, Oriented to person, place, time, situation. Cardiovascular: Capillary refill < 3 seconds Patient's skin is warm and dry. Respiratory: Airway is patent Respiratory effort is even, unlabored, Respiratory pattern is regular, symmetrical. GI: Abdomen is round non-distended. Derm: Skin is pink, warm \T\ dry. Musculoskeletal: Circulation, motion, and sensation intact. 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 - Social history:: Smoking status: unknown. Screenin:23 [facility] ED Fall Risk Assessment (Adult) Score/Fall Risk Level 0 - 2 = Low Risk. Abuse eh3 screen: Denies threats or abuse. Denies injuries from another. Nutritional screening: No deficits noted. Tuberculosis screening: No symptoms or risk factors identified. Assessment: 16:23 Reassessment: No changes from previously documented assessment. See triage assessment. eh3 Vital Signs: 16:20 BP 139 / 82; Pulse 107; Resp 18; Pulse Ox 99% on R/A; Weight 68.04 kg; Height 5 ft. 2 eh3 in. ; 16:20 Body Mass Index 27.44 (68.04 kg, 157.48 cm) eh3 [place] Coma Score: 17:20 Eye Response: spontaneous(4). Motor Response: obeys commands(6). Verbal Response: kb oriented(5). Total: 15. ED Course: 16:19 Patient arrived in ED. db 16:19 Sandy Ortez, RN is Primary Nurse. eh3 16:20 Triage completed. eh3 16:20 Sahsa Harkins FNP-C [facility]. kb 16:20 Melo Small MD is Attending Physician. kb 16:20 Arm band placed on. eh3 16:23 Patient has correct armband on for positive identification. Placed in gown. Bed in low eh3 position. Call light in reach. Side rails up X2. Provided Education on: Use of call ortega. Client placed on continuous cardiac and pulse oximetry monitoring. NIBP monitoring applied. 16:23 Maintain EMS IV. Dressing intact. Good blood return noted. Site clean \T\ dry. eh3 17:03 CT Head Brain wo Cont In Process Unspecified. EDMS 17:07 COVID-19 SARS RT PCR Sent. eh3 17:07 Flu Sent. eh3 20:01 No provider procedures requiring assistance completed. IV discontinued, intact, eh3 bleeding controlled, No redness/swelling at site. Pressure dressing applied. Administered Medications: 16:55 Drug: NS 0.9% IV 1000 ml Route: IV; Rate: 1000 ml; Site: right antecubital; eh3 20:02 Follow up: IV Status: Completed infusion; IV Intake: 1000ml 3 16:55 Drug: metoCLOPramide IVP 10 mg Route: IVP; Site: right antecubital; eh3 20:02 Follow up: Response: No adverse reaction eh3 16:55 Drug: Decadron - Dexamethasone IVP 10 mg Route: IVP; Site: right antecubital; eh3 20:02 Follow up: Response: No adverse reaction eh3 16:55 Drug: diphenhydrAMINE IVP 12.5 mg Route: IVP; Site: right antecubital; eh3 20:02 Follow up: Response: No adverse reaction eh3 18:00 Drug: Ketorolac IVP 15 mg Route: IVP; Site: right antecubital; eh3 20:02 Follow up: Response: No adverse reaction eh3 19:17 Drug: Ondansetron IVP 4 mg Route: IVP; Site: right antecubital; eh3 20:02 Follow up: Response: No adverse reaction eh3 19:17 Drug: morphine IVP or IV 4 mg Route: IVP; Infused Over: 4 mins; Site: right antecubital;eh3 20:01 Follow up: Response: No adverse reaction eh3 Medication: 20:01 VIS not applicable for this client. eh3 Intake: 20:02 IV: 1000ml; Total: 1000ml. eh3 Outcome: 19:39 Discharge ordered by . kb 20:01 Discharged to home ambulatory, with family. eh3 20:01 Condition: stable 20:01 Discharge instructions given to patient, Instructed on discharge instructions, follow up and referral plans. Demonstrated understanding of instructions, follow-up care. 20:06 Patient left the ED. 3 Signatures: Dispatcher [employer] EDSasha Evans, ELISE NAVARRO-Sandy Marinelli RN RN 3 Aster Sandhu RN RN db
[2022-12-17 20:33] VITALS: BP 139/82; O2SAT 99
--- NOTE | 2022-12-19 15:08 | EKG ---
Test Date: 2022-12-17 Test Time: 17:12:09 Pipe Finisher: ARLET MEASUREMENT RESULTS: Intervals: Rate: 106 SD: 164 QRSD: 104 QT: 354 QTc: 470 Gilbert: P: 71 SD: 164 QRS: 86 T: 65 INTERPRETIVE STATEMENTS: Sinus tachycardia Otherwise normal ECG Compared to ECG 12/04/2021 23:22:18 No significant changes Electronically Signed On 12-19-22 15:06:11 CDT by Nioxn Souza
== END 2022-12-17 20:06 | disposition home or self-care (01) ==
LOC: ER 16:17
DX: R51.9 Headache, unspecified (principal); R11.2 Nausea with vomiting, unspecified; Z20.822 Contact with and (suspected) exposure to COVID-19; E11.9 Type 2 diabetes mellitus without complications
CPT/HCPCS: 96361; 93005; 85025; 80048; 36415; 84484; 87635; 87804 ×2; 70450; 96375; 96374; 99284; J2765; J1200; J1100; J2405; J7030

== ENCOUNTER 2023-08-12 07:48 | Inpatient (IN) | payer OTHER ==
[2023-08-12] MEDS ORDERED: ONDANSETRON 4 MG/2 ML VIAL ONE ×2 (07:55→13:01)
[2023-08-12] MEDS ORDERED: NA CHLORIDE 0.9% 1,000 ML ONE ×3 (07:56→11:19)
--- OUTSIDE RECORDS SUMMARY | 2023-08-12 07:56 | XMS REPORT | Continuity of Care Document ---
Author Name Unknown Address [address] [facility] [address] [place] [address] [facility] Address [address] [facility] [address] [place] [address] Care Team Providers Care Director Of Development Name Role Phone Mary Ann Garduno Primary Care Physician [phone] [facility] M Attending Clinician Unavailable VINCENZO SANCHES Attending Clinician UnavailRAUL Oro Attending Clinician Unavailable Florecita Atkins MD Attending Clinician + [phone] FLORECITA ATKINS Attending Clinician Nissa schultz Doctor Unassigned, [facility] Attending Clinician U Vincenzo Jack MD Attending Clinician [phone] Eduardo Newton MD Attending Clinician [phone] Tony Feldman MD Attending Clinician [phone] TONY FELDMAN Attending Clinician Unavailable [email or web address]_S Attending Clinician Princess Lund Attending Clinician UnavailBernadine Okeefe MA Attending Clinician UnavailPRINCESS Tatum Attending Clinician Unavailable Modesto Yee MD Attending Clinician UnavailMODESTO Morris Attending Clinician Unavailable Santana WHITEHEAD, Javier Attending Clinician UnavailAMIRA Lo Attending Clinician UnavailAmira Armenta Attending Clinician Lab, Ang - Db Attending Clinician Unavailable Tika Martinez RN Attending Clinician Unavailab Arce, [facility] Attending Renay siddiqui Unavailable SOFÍA PURCELL Attending Clinician UnavailTEA Herrera Attending Clinician Unavailable ROSALINDA GHOSH Attending Clinician Unavaila ble [email or web address]_S Admitting Clinician Unavaila ble Payers Payer Name Policy Type Policy Number Effective Date Expirati on Date Source [facility] DUAL COMP HMO D SNP [id number] 2023 00:00:00 2023 00:00:00 [place] [id number] 2021 00:00:00 2023 00:00:[place] [employer] H[place] SNP [id number] 2023 00:00:00 [facility] STAR PLUS [id number] 2023 00:00:00 [employer] Preferred Medicare (HMO) 111 [id number] [facility] [place]/SELECT[employer]ARE [id number] 2014 00:00:00 Problems Condition Name Condition Details Condition Category Status Onset Date Resolution Date Last Treatment Date Treating Clinician Comments Source Hepatitis C Hepatitis C Disease Active [facility] Bipolar 1 disorder Bipolar 1 disorder Disease Active [facility] Osteoarthr itis Osteoarthr itis Problem [facility] Insomnia Insomnia Problem [facility] Diabetic neuropathy Diabetic neuropathy Problem [facility] Diabetes mellitus without complicati on Diabetes DMII without complicati ons Problem [facility] Hyperlipid emia Hyperlipid emia Problem [facility] [id number] Irritable bowel syndrome with constipati on Problem [facility] [id number] Type 2 diabetes mellitus with other wire setter y complicati ons Problem [facility] [id number] Neuropathy Problem Com [facility] Mixed hyperlipid emia Mixed hyperlipid emia Problem [facility] Anemia Anemia Problem [facility] [id number] Gastroesop hageal reflux disease without esophagiti s Problem [facility] Excessive and frequent menstruati on Heavy menses Problem [facility] Schizophre danilo Other schizophre danilo Problem [facility] [id number] Type 2 diabetes mellitus with hyperglyce jenniffer Problem [facility] 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 Social History Social Habit Start Date Stop Date Quantity Comments Source [facility] History of Tobacco Use [facility] Sex Assigned At [facility] History of Social function 2023-07-20 00:00:00 2023-07-20 00:00:00 [facility] Alcohol intake 2023-07-20 00:00:00 2023-07-20 00:00:00 Current non-drinker of alcohol (finding) [facility] Exposure to SARS-CoV-2 (event) 2022-07-23 00:00:00 2022-08-02 10:00:00 Not sure [facility] Cigarettes smoked current (pack per day) - Reported 2022-08-02 00:00:00 2022-08-02 00:00:00 [facility] Cigarette pack-years 2022-08-02 00:00:00 2022-08-02 00:00:00 [facility] Tobacco use and exposure 2022-08-02 00:00:00 2022-08-02 00:00:00 Former smokeless tobacco user [facility] Smoking Status Start Date Stop Date Source Ex-smoker 2022-08-02 00:00:00 2022-08-02 00:00:00 [facility] Medications Ordered Medication Name Filled Medication Name Start Date Stop Date Current Medication? Ordering Clinician Indication Dosage Frequency Signature (SIG) Comments Components Source METOCLOPRAM DANIEL HCL 10 mg tablet 07-28 00:00: 00 Yes [id number] TAKE 1 TABLET BY MOUTH THREE TIMES A DAY [facility] ALCOHOL PADS PadM 06-07 00:00: 00 Yes Use alcohol pad to clean area of skin before testing UP TO SIX TIMES DAILY AND USE TWICE DAILY before insulin injection (total 8 TIMES A DAY) [facility] COMFORT EZ PEN NEEDLES 31 gauge x 1/4" Ndle 06-06 00:00: 00 Yes Use with insulin pen to inject insulin subcutaneo usly TWICE DAILY [facility] ALBUTEROL 90 mcg/actuati on inhaler 06-03 00:00: 00 Yes INHALE 1 TO 2 PUFFS EVERY 4 TO 6 HOURS NEEDED [facility] FUROSEMIDE 20 mg tablet 05-27 00:00: 00 Yes [id number] 20mg TAKE 1 TABLET BY MOUTH EVERY OTHER DAY [facility] zolpidem 10 mg tablet 05-04 00:00: 00 Yes [id number] 10mg Take 1 tablet by mouth at bedtime as needed for Insomnia. [facility] methIMAzole 5 mg tablet 05-04 00:00: 00 Yes [id number] 5mg Take 1 tablet by mouth in the morning. [facility] DICYCLOMINE 20 mg tablet 2022-04 00:00: 00 Yes [id number] 20mg TAKE 1 TABLET BY MOUTH IN THE MORNING AND IN THE EVENING [facility] QUETIAPINE 300 mg tablet 2022-04 00:00: 00 Yes [id number] TAKE 1 TABLET BY MOUTH TWICE A DAY [facility] ALCOHOL PADS PadM 2022-04 00:00: 00 06-07 00:00 :00 No Use alcohol pad to clean area of skin before testing UP TO SIX TIMES DAILY AND USE TWICE DAILY before insulin injection (total 8 TIMES A DAY) [facility] COMFORT EZ PEN NEEDLES 31 gauge x 1/4" Ndle 2022-04-13 00:00: 00 06-06 00:00 :00 No Use with insulin pen to inject insulin subcutaneo usly TWICE DAILY [facility] METOCLOPRAM DANIEL HCL 10 mg tablet 2022-04 0-31 00:00: 00 07-28 00:00 :00 No [id number] TAKE 1 TABLET BY MOUTH THREE TIMES A DAY [facility] FAMOTIDINE 40 mg tablet 2022-0417 00:00: 00 Yes [id number] 40mg TAKE 1 TABLET BY MOUTH IN THE MORNING AND IN THE EVENING [facility] FUROSEMIDE 20 mg tablet 2022-04 00:00: 00 05-27 00:00 :00 No [id number] 20mg TAKE 1 TABLET BY MOUTH EVERY OTHER DAY [facility] atorvastati n 10 mg tablet 01-13 00:00: 00 Yes [id number] Take 1 tablet by mouth everyday at bedtime. Must be seen on 02/21/23 for additional refills [facility] METHIMAZOLE 5 mg tablet 01-13 00:00: 00 05-04 00:00 :00 No [id number] TAKE 1 TABLET BY MOUTH EVERY DAY [facility] FAMOTIDINE 40 mg tablet 12-30 00:00: 00 02-08 00:00 :00 No [id number] 40mg TAKE 1 TABLET BY MOUTH IN THE MORNING AND IN THE EVENING [facility] flash glucose scanning reader (FREESTYLE DOM 2 READER) [facility] 11-19 00:00: 00 Yes 1{each} 1 Each CONTINUOUS . Use as directed for DX E10.65 [facility] flash glucose sensor (FREESTYLE DOM 2 SENSOR) Kit 11-19 00:00: 00 Yes Use as directed for DX E10.65 [facility] Blood-Gluco se Meter,Keshawn hurst (DEXCOM G6 PREPRESS OPERATOR) [facility] 11-18 00:00: 00 Yes Use as directed to check blood sugars dx E10.65 [facility] Blood-Gluco se Sensor (DEXCOM G6 SENSOR) Barb 11-18 00:00: 00 Yes Use as directed to check blood sugars for dx E10.65 [facility] Blood-Gluco se Transmitter (DEXCOM G6 TRANSMITTER ) Barb 11-18 00:00: 00 Yes Use as directed to check blood sugars for dx E10.65 [facility] methIMAzole 5 mg tablet 10-14 00:00: 00 01-13 00:00 :00 No [id number] TAKE 1 TABLET BY MOUTH EVERY DAY [facility] METOCLOPRAM DANIEL HCL 10 mg tablet 10-13 00:00: 00 02-22 00:00 :00 No [id number] TAKE 1 TABLET BY MOUTH THREE TIMES A DAY [facility] atorvastati n 10 mg tablet 10-01 00:00: 00 01-13 00:00 :00 No [id number] TAKE 1 TABLET BY MOUTH EVERYDAY AT BEDTIME [facility] FUROSEMIDE 20 mg tablet 09-23 00:00: 00 01-24 00:00 :00 No [id number] 20mg TAKE 1 TABLET BY MOUTH EVERY OTHER DAY [facility] famotidine 40 mg tablet 5-14 00:00: 00 12-30 00:00 :00 No [id number] 40mg TAKE 1 TABLET BY MOUTH IN THE MORNING AND 1 TABLET IN THE EVENING. [facility] Blood-Gluco se Sensor (DEXCOM G6 SENSOR) Barb 12 00:00: 00 11-18 00:00 :00 No Use as directed to check blood sugars for dx E10.65 [facility] gabapentin 300 mg capsule 09-01 00:00: 00 Yes [id number] 300mg Take 1 capsule by mouth in the morning and 1 capsule in the evening. [facility] zolpidem 10 mg tablet 09-01 00:00: 00 05-04 00:00 :00 No [id number] 10mg Take 1 tablet by mouth at bedtime as needed for Insomnia. [facility] dicyclomine 20 mg tablet 510 00:00: 00 03-26 00:34 :21 No [id number] 20mg Take 1 tablet by mouth in the morning and 1 tablet in the evening. [facility] LISINOPRIL 5 mg tablet 08-29 00:00: 00 Yes [id number] TAKE 1 TABLET BY MOUTH EVERY DAY [facility] Blood-Gluco se Meter,Keshawn nuous (DEXCOM G6 PREPRESS OPERATOR) [facility] 08-23 00:00: 00 11-18 00:00 :00 No Use as directed to check blood sugars dx E10.65 [facility] Blood-Gluco se Transmitter (DEXCOM G6 TRANSMITTER ) Barb 08-23 00:00: 00 11-18 00:00 :00 No Use as directed to check blood sugars for dx E10.65 [facility] FUROSEMIDE 20 mg tablet 08-19 00:00: 00 09-23 00:00 :00 No [id number] 20mg TAKE 1 TABLET BY MOUTH EVERY OTHER DAY [facility] Blood-Gluco se Meter,Keshawn nuous (DEXCOM G6 PREPRESS OPERATOR) [facility] 08-17 00:00: 00 08-23 00:00 :00 No Use as directed to check blood sugars dx E10.65 [facility] Blood-Gluco se Transmitter (DEXCOM G6 TRANSMITTER ) Barb 08-17 00:00: 00 08-23 00:00 :00 No Use as directed to check blood sugars for dx E10.65 [facility] Alcohol Swabs PadM 08-14 00:00: 00 03-07 00:00 :00 No Use alcohol pad to clean area of skin before testing UP TO SIX TIMES DAILY AND USE TWICE DAILY before insulin injection (total EIGHT TIMES A ONE TIME A DAY) [facility] LINZESS 290 mcg Cap 08-04 00:00: 00 Yes [id number] TAKE 1 CAPSULE BY MOUTH ONCE DAILY 30 MINUTES BEFORE THE FIRST MEAL OF THE DAY [facility] Blood-Gluco se Sensor (DEXCOM G6 SENSOR) Barb -12 00:00: 00 09-03 00:00 :00 No Use as directed to check blood sugars for dx E10.65 [facility] Blood-Gluco se Meter,Keshawn hurst (DEXCOM G6 PREPRESS OPERATOR) Misc 12 00:00: 00 08-17 00:00 :00 No Use as directed to check blood sugars dx E10.65 [facility] Blood-Gluco se Transmitter (DEXCOM G6 TRANSMITTER ) Barb 12 00:00: 00 08-17 00:00 :00 No Use as directed to check blood sugars for dx E10.65 [facility] zolpidem 10 mg tablet 4-11 00:00: 00 09-01 00:00 :00 No [id number] 10mg Take 1 tablet by mouth at bedtime as needed for Insomnia. [facility] FUROSEMIDE 20 mg tablet 4-03 00:00: 00 08-19 00:00 :00 No [id number] 20mg TAKE 1 TABLET BY MOUTH EVERY OTHER DAY [facility] FUROSEMIDE 20 mg tablet 3-06 00:00: 00 07-26 00:00 :00 No [id number] 20mg TAKE 1 TABLET BY MOUTH EVERY OTHER DAY [facility] DICYCLOMINE 20 mg tablet 2-10 00:00: 00 09-01 00:00 :00 No [id number] 20mg TAKE 1 TABLET BY MOUTH IN THE MORNING AND 1 TABLET IN THE EVENING. [facility] FUROSEMIDE 20 mg tablet 2-10 00:00: 00 06-28 00:00 :00 No [id number] 20mg TAKE 1 TABLET BY MOUTH EVERY OTHER DAY [facility] Insulin Clare, Disposable, (BD ULTRAFINE III MINI PEN) 31 gauge x 3/16" Ndle 1-23 00:00: 00 Yes [id number] 9101 USE TO INJECT INSULIN 5 TIMES DAILY. DX:E11.65 [facility] Insulin Clare, Disposable, (BD ULTRAFINE III MINI PEN) 31 gauge x 3/16" Ndle 05-17 00:00: 00 Yes [id number] 9101 USE TO INJECT INSULIN 5 TIMES DAILY. DX:E11.65 [facility] METOCLOPRAM DANIEL HCL 10 mg tablet 05-17 00:00: 00 10-13 00:00 :00 No TAKE 1 TABLET BY MOUTH THREE TIMES A DAY [facility] LISINOPRIL 10 mg tablet 05-11 00:00: 00 Yes TAKE 1 TABLET BY MOUTH ONCE DAILY [facility] famotidine 40 mg tablet 2021-04 00:00: 00 09-05 00:00 :00 No [id number] 40mg Take 1 tablet by mouth in the morning and 1 tablet in the evening. [facility] insulin lispro (HUMALOG KWIKPEN INSULIN) 100 unit/mL pen injector 2021-04 00:00: 00 Yes [id number] 9101 10U inject 10 Units under the skin in the morning and 10 Units at noon and 10 Units in the evening. inject before meals. [facility] ondansetron 4 mg tablet 2021-04 00:00: 00 Yes [id number] 4mg Take 1 tablet by mouth every 12 (twelve) hours. [facility] insulin lispro (HUMALOG KWIKPEN INSULIN) 100 unit/mL pen injector 2021-04 00:00: 00 Yes [id number] 9101 10U inject 10 Units under the skin in the morning and 10 Units at noon and 10 Units in the evening. inject before meals. [facility] atorvastati n 10 mg tablet 2021-04 00:00: 00 10-01 00:00 :00 No [id number] 10mg Take 1 tablet by mouth at bedtime. [facility] Insulin Clare, Disposable, (BD ULTRAFINE III MINI PEN) 31 gauge x 3/16" Ndle 2021-04 00:00: 00 05-17 00:00 :00 No [id number] 9101 USE TO INJECT INSULIN 5 TIMES DAILY. DX:E11.65 [facility] FUROSEMIDE 20 mg tablet 2021-04 00:00: 00 06-04 00:00 :00 No [id number] 20mg TAKE 1 TABLET BY MOUTH EVERY OTHER DAY [facility] TAKE 1 TABLET BY MOUTH TWICE A DAY 2021-04 00:00: 00 No QUETIAPINE 300 mg tablet 2021-04 0- 00:00: 00 03-26 00:34 :21 No [id number] TAKE 1 TABLET BY MOUTH TWICE A DAY [facility] TAKE 1 TABLET BY MOUTH EVERY DAY AT BEDTIME NEEDED FOR INSOMNIA 01-21 00:00: 00 No ALBUTEROL 90 mcg/actuati on inhaler 01-18 00:00: 00 06-03 00:00 :00 No INHALE 1 TO 2 PUFFS BY MOUTH EVERY 4 TO 6 HOURS NEEDED [facility] gabapentin 300 mg capsule 01-12 00:00: 00 09-01 00:00 :00 No [id number] 300mg Take 1 capsule by mouth in the morning and 1 capsule in the evening. [facility] zolpidem 10 mg tablet 01-12 00:00: 00 08-03 00:00 :00 No [id number] 10mg Take 1 tablet by mouth at bedtime as needed for Insomnia. [facility] dicyclomine 20 mg tablet 01-12 00:00: 00 06-04 00:00 :00 No [id number] 20mg Take 1 tablet by mouth in the morning and 1 tablet in the evening. [facility] pantoprazol e 40 mg EC tablet 01-12 00:00: 00 03-11 00:00 :00 No [id number] 40mg Take 1 tablet by mouth in the morning. [facility] ATORVASTATI N 10 mg tablet 01-11 00:00: 00 02-26 00:00 :00 No [id number] TAKE 1 TABLET BY MOUTH EVERYDAY AT BEDTIME [facility] FUROSEMIDE 20 mg tablet 0 9-19 00:00: 00 10-12 00:00 :00 No [id number] 20mg TAKE 1 TABLET BY MOUTH EVERY OTHER DAY [facility] DEXLANSOPRA ZOLE 60 mg capsule 9-07 00:00: 00 01-12 00:00 :00 No [id number] TAKE 1 CAPSULE BY MOUTH EVERY DAY [facility] TAKE 1 TABLET BY MOUTH EVERY DAY AT BEDTIME NEEDED FOR INSOMNIA 0 - 00:00: 00 No 10 gabapentin 300 mg capsule 12-17 00:00: 00 01-12 00:00 :00 No 300mg Take 300 mg by mouth in the morning and 300 mg in the evening. [facility] FUROSEMIDE 20 mg tablet 12-14 00:00: 00 01-11 00:00 :00 No [id number] 20mg TAKE 1 TABLET BY MOUTH EVERY OTHER DAY [facility] TAKE 1 TABLET BY MOUTH TWICE A DAY 0 -17 00:00: 00 No 250 &lt 2-0 8-10 00:00: 00 No 10 &lt 2-0 8-10 00:00: 00 No &lt 2-0 8-04 00:00: 00 No 60 TAKE 1 CAPSULE BY MOUTH TWICE A DAY 0 - 00:00: 00 No 300 Novolog Flexpen U-100 Insulin aspart 100 unit/mL (3 mL) subcutaneou s 0 11-17 00:00: 00 No 10(3 mL) lisinopril 5 mg tablet 0 11-17 00:00: 00 No 1mg gabapentin 300 mg capsule 0 11-17 00:00: 00 No 1mg TAKE 1 TABLET BY MOUTH EVERY DAY AT BEDTIME NEEDED FOR INSOMNIA 11-17 00:00: 00 No 10 INJECT 28 UNITS IN THE IN THE MORNING AND 25 UNITS IN IN THE EVENING 0 11-17 00:00: 00 No TAKE 1 TABLET BY MOUTH TWICE A DAY 0 11-17 00:00: 00 No 300 TAKE 1 CAPSULE BY MOUTH EVERY DAY 0 11-17 00:00: 00 No 150 Dose Unknown 11-17 00:00: 00 No 4 TAKE 1 TABLET BY MOUTH EVERY OTHER DAY 11-17 00:00: 00 No 20 INHALE 1 TO 2 PUFFS BY MOUTH EVERY 4 TO 6 HOURS NEEDED 11-17 00:00: 00 No &lt 11-17 00:00: 00 No 300 LISINOPRIL 5 mg tablet 11-16 00:00: 00 08-29 22:39 :17 No [id number] TAKE 1 TABLET BY MOUTH EVERY DAY [facility] FUROSEMIDE 20 mg tablet 11-16 00:00: 00 12-14 00:00 :00 No [id number] 20mg TAKE 1 TABLET BY MOUTH EVERY OTHER DAY [facility] TAKE 1 TABLET BY MOUTH TWICE A DAY 11-03 00:00: 00 No 20 Dose Unknown 11-03 00:00: 00 No ZOLPIDEM 10 mg tablet 11-03 00:00: 00 01-12 00:00 :00 No [id number] TAKE 1 TABLET BY MOUTH EVERY DAY AT BEDTIME NEEDED FOR INSOMNIA [facility] metoclopram daniel 10 mg tablet 11-02 00:00: 00 No 1mg trazodone 100 mg tablet 11-02 00:00: 00 No 1mg TAKE 1 TABLET BY MOUTH TWICE A DAY 11-02 00:00: 00 No 20 TAKE 1 TABLET BY MOUTH BEFORE MEALS 11-02 00:00: 00 No 5 INJECT 28 UNITS IN THE IN THE MORNING AND 25 UNITS IN IN THE EVENING 11-02 00:00: 00 No Dose Unknown 11-02 00:00: 00 No 4 TAKE 1 TABLET BY MOUTH EVERY DAY 11-02 00:00: 00 No 5 &lt 11-02 00:00: 00 No 10 Dose Unknown 11-02 00:00: 00 No Dose Unknown 11-02 00:00: 00 No 5 ATKE 1 TABLET EVERY 8 HOURS NEEDED FOR PAIN 11-02 00:00: 00 No QUETIAPINE 300 mg tablet 10-29 00:00: 00 01-25 00:00 :00 No [id number] TAKE 1 TABLET BY MOUTH TWICE A DAY [facility] Humulin 70/30 U-100 Insulin KwikPen 100 unit/mL subcutaneou s 10-27 00:00: 00 No unit/mL (70-30) ciprofloxac in 250 mg tablet 10-27 00:00: 00 No 1mg TAKE 1 TABLET BY MOUTH DIRECTED 10-27 00:00: 00 No 4 TAKE 1 CAPSULE BY MOUTH EVERY DAY 10-27 00:00: 00 No 150 ATKE 1 TABLET EVERY 8 HOURS NEEDED FOR PAIN 10-27 00:00: 00 No TAKE 1 TABLET BY MOUTH EVERY DAY AT BEDTIME NEEDED FOR INSOMNIA 10-27 00:00: 00 No 10 TAKE 1 TABLET BY MOUTH THREE TIMES A DAY 10-27 00:00: 00 No 800 TAKE 1 TABLET BY MOUTH EVERY DAY 10-27 00:00: 00 No 5 &lt 10-27 00:00: 00 No &lt 10-27 00:00: 00 No 10 TAKE 1 TABLET BY MOUTH TWICE A DAY 10-27 00:00: 00 No 20 ALBUTEROL 90 mcg/actuati on inhaler 10-27 00:00: 00 01-18 00:00 :00 No INHALE 1 TO 2 PUFFS BY MOUTH EVERY 4 TO 6 HOURS NEEDED [facility] linaCLOtide (LINZESS) 290 mcg Cap 10-19 00:00: 00 08-04 00:00 :00 No [id number] TAKE 1 CAPSULE BY MOUTH ONCE DAILY 30 MINUTES BEFORE THE FIRST MEAL OF THE DAY [facility] simethicone 125 mg chewable tablet 10-02 00:00: 00 No 1mg gabapentin 300 mg capsule 10-02 00:00: 00 No 1mg Dose Unknown 10-02 00:00: 00 No Dose Unknown 10-02 00:00: 00 No TAKE 1 TABLET BY MOUTH TWICE A DAY 2021-0 6-10 00:00: 00 No INHALE 1 TO 2 PUFFS BY MOUTH EVERY 4 TO 6 HOURS NEEDED 2021-0 6- 00:00: 00 No &lt 2021-0 6-10 00:00: 00 No TAKE 1 TABLET BY MOUTH EVERY DAY AT BEDTIME NEEDED FOR INSOMNIA 2021-0 6- 00:00: 00 No &lt 2021-0 6-10 00:00: 00 No TAKE 1 CAPSULE BY MOUTH THREE TIMES A DAY 2021-0 6- 00:00: 00 No LISINOPRIL 10 mg tablet 0 09-08 00:00: 00 05-11 00:00 :00 No TAKE 1 TABLET BY MOUTH ONCE DAILY [facility] Insulin Clare, Disposable, (BD ULTRAFINE III MINI PEN) 31 gauge x 3/16" Ndle 09-08 00:00: 00 02-26 00:00 :00 No USE TO INJECT INSULIN 2 TIMES DAILY. DX:E11.65 [facility] Insulin Syringe-Nee dle U-100 1 mL 27 gauge x 5/8" Syrg 08-18 00:00: 00 Yes Use as directed to inject insulin 4 times daily for E10.65 [facility] Insulin Syringe-Nee dle U-100 1 mL 27 gauge x 5/8" Syrg 08-18 00:00: 00 Yes Use as directed to inject insulin 4 times daily for E10.65 [facility] Blood-Gluco se Sensor (DEXCOM G6 SENSOR) Barb 07-29 00:00: 00 08-04 00:00 :00 No Use as directed to check blood sugars for dx E10.65 [facility] Blood-Gluco se Transmitter (DEXCOM G6 TRANSMITTER ) Barb 07-29 00:00: 00 08-04 00:00 :00 No Use as directed to check blood sugars for dx E10.65 [facility] Blood-Gluco se Meter,Keshawn hurst (DEXCOM G6 PREPRESS OPERATOR) Misc 07-29 00:00: 00 08-04 00:00 :00 No Use as directed to check blood sugars dx E10.65 [facility] flash glucose sensor (FREESTYLE DOM 2 SENSOR) Kit 07-27 00:00: 00 08-02 00:00 :00 No [id number] 9101 1{kit} 1 Kit every 14 (fourteen) days. E10.65 [facility] pregabalin 100 mg capsule 07-25 00:00: 00 01-12 00:00 :00 No [id number] 9101 100mg Take 1 capsule by mouth 2 (two) times daily. [facility] flash glucose scanning reader (FREESTYLE DOM 2 READER) Misc 3- 00:00: 00 08-02 00:00 :00 No [id number] 9101 1{each} 1 Each daily. [facility] methIMAzole 5 mg tablet 2020-04 00:00: 00 10-14 00:00 :00 No [id number] 5mg Take 1 tablet by mouth daily. [facility] insulin NPH and regular human 70-30 (HUMULIN 70/30 U-100 INSULIN) 100 unit/mL (70-30) injection 2020-04 00:00: 00 02-26 00:00 :00 No [id number] 9101 25 units wtice daily before meals. Max daily dose of 70 units [facility] atorvastati n (LIPITOR) 10 mg tablet 2020-04 007 00:00: 00 01-11 00:00 :00 No [id number] 10mg Take 1 tablet by mouth at bedtime. [facility] silver sulfADIAZIN E (SILVADENE) 1 % cream 12-24 00:00: 00 Yes [id number] Apply to area(s) 2 (two) times daily. [facility] metoclopram daniel HCl 5 mg tablet 824 00:00: 00 08-02 00:00 :00 No [id number] 5mg Take 1 tablet by mouth before meals. [facility] dicyclomine 20 mg tablet 12-16 00:00: 00 01-12 00:00 :00 No [id number] 20mg Take 1 tablet by mouth 2 (two) times daily. [facility] Dexlansopra zole (DEXILANT) 60 mg capsule 12-16 00:00: 00 12-30 00:00 :00 No [id number] 60mg Take 1 capsule by mouth daily. [facility] naproxen sodium (ALEVE) 220 mg tablet 2019-04 0 14:52: 17 Yes 220mg Take 220 mg by mouth 2 (two) times daily with meals. [facility] medroxyPROG ESTERone (DEPO-PROVE RA) 150 mg/mL injection 10-01 11:49: 34 Yes 150mg 150 mg by Intramuscu lar route every 3 (three) months. [facility] Dexilant 60 mg capsule, delayed release 06-01 00:00: 00 No 1mg Lyrica 150 mg capsule 06-01 00:00: 00 No 1mg Linzess 290 mcg capsule 06-01 00:00: 00 No 1mcg ProAir HFA 90 mcg/actuati on aerosol inhaler 06-01 00:00: 00 No 1mcg/ac tuation ondansetron 4 mg disintegrat ing tablet 06-01 00:00: 00 No 1mg Ambien 10 mg tablet 06-01 00:00: 00 No 1mg atorvastati n 40 mg tablet 06-01 00:00: 00 No 1mg dicyclomine 20 mg tablet 06-01 00:00: 00 No 1mg Seroquel 300 mg tablet 06-01 00:00: 00 No 1mg Amoxicillin 500 MG Amoxicillin 500 MG 9 00:00: 00 No 1{table t} TID Amoxicilli n 500 MG Dexilant 60 MG Dexilant 60 MG 11-16 00:00: 00 No 1{capsu le} QD Dexilant 60 MG atorvastati n 20mg atorvastati n 20mg 216 00:00: 00 No atorvastat in 20mg Lyrica 100 MG Lyrica 100 MG No 1{capsu le} TID Lyrica 100 MG Atorvastati n Calcium 40 MG Atorvastati n Calcium 40 MG No 1{table t} QD Atorvastat in Calcium 40 MG Pantoprazol e Sodium 40 MG Pantoprazol e Sodium 40 MG No 1{table t} QD Pantoprazo le Sodium 40 MG Ambien 10 MG Ambien 10 MG No 1{table t_at_be dtime_a s_neede d} QD Ambien 10 MG Cetirizine HCl 10 MG Cetirizine HCl 10 MG No 1{table t} QD Cetirizine HCl 10 MG HumuLIN 70/30 KwikPen (70-30) 100 UNIT/ML HumuLIN 70/30 KwikPen (70-30) 100 UNIT/ML No BID HumuLIN 70/30 KwikPen (70-30) 100 UNIT/ML Lipitor 40 MG Lipitor 40 MG No 1{table t} QD Lipitor 40 MG QUEtiapine Fumarate 400 MG QUEtiapine Fumarate 400 MG No 1{table t} BID QUEtiapine Fumarate 400 MG Terbinafine HCl 250 MG Terbinafine HCl 250 MG No 1{table t} QD Terbinafin e HCl 250 MG Contour Next Test - Contour Next Test - No Contour Next Test - Dicyclomine HCl 20 MG Dicyclomine HCl 20 MG No 1{table t} BID Dicyclomin e HCl 20 MG SEROquel 300 MG SEROquel 300 MG No 1.5{tab let} BID SEROquel 300 MG Flonase 50 MCG/ACT Flonase 50 MCG/ACT No 2{spray _in_eac h_nostr il} QD Flonase 50 MCG/ACT Claritin 10 MG Claritin 10 MG No 1{table t} QD Claritin 10 MG Immunizations Ordered Immunization Name Filled Immunization Name Date Status Comments Source Influenza Virus Vaccine Quad IM, Preserv and ABX Free 6 MO-64 YRS 2022-01-12 00:00:00 Completed [facility] Influenza Virus Vaccine Quad IM, Preserv and ABX Free 6 MO-64 YRS 2022-01-12 00:00:00 Completed [facility] Influenza Virus Vaccine Quad IM, Preserv and ABX Free 6 MO-64 YRS 2022-01-12 00:00:00 Completed [facility] Influenza Virus Vaccine Quad IM, Preserv and ABX Free 6 MO-64 YRS 2022-01-12 00:00:00 Completed [facility] Influenza Virus Vaccine Quad IM, Preserv and ABX Free 6 MO-64 YRS 2022-01-12 00:00:00 Completed [facility] Influenza Virus Vaccine Quad IM, Preserv and ABX Free 6 MO-64 YRS 2022-01-12 00:00:00 Completed [facility] Influenza Virus Vaccine Quad IM, Preserv and ABX Free 6 MO-64 YRS 2022-01-12 00:00:00 Completed [facility] Influenza Virus Vaccine Quad IM, Preserv and ABX Free 6 MO-64 YRS 2022-01-12 00:00:00 Completed [facility] Influenza Virus Vaccine Quad IM, Preserv and ABX Free 6 MO-64 YRS 2022-01-12 00:00:00 Completed [facility] Influenza Virus Vaccine Quad IM, Preserv and ABX Free 6 MO-64 YRS 2022-01-12 00:00:00 Completed [facility] Influenza Virus Vaccine Quad IM, Preserv and ABX Free 6 MO-64 YRS 2022-01-12 00:00:00 Completed [facility] Influenza Virus Vaccine Quad IM, Preserv and ABX Free 6 MO-64 YRS 2022-01-12 00:00:00 Completed [facility] Influenza Virus Vaccine Quad IM, Preserv and ABX Free 6 MO-64 YRS 2022-01-12 00:00:00 Completed [facility] Influenza Virus Vaccine Quad IM, Preserv and ABX Free 6 MO-64 YRS 2022-01-12 00:00:00 Completed [facility] Influenza Virus Vaccine Quad IM, Preserv and ABX Free 6 MO-64 YRS 2022-01-12 00:00:00 Completed [facility] Influenza Virus Vaccine Quad IM, Preserv and ABX Free 6 MO-64 YRS 2022-01-12 00:00:00 Completed [facility] Influenza Virus Vaccine Quad IM, Preserv and ABX Free 6 MO-64 YRS 2022-01-12 00:00:00 Completed [facility] Influenza Virus Vaccine Quad IM, Preserv and ABX Free 6 MO-64 YRS 2022-01-12 00:00:00 Completed [facility] Influenza Virus Vaccine Quad IM, Preserv and ABX Free 6 MO-64 YRS 2022-01-12 00:00:00 Completed [facility] Influenza Virus Vaccine Quad IM, Preserv and ABX Free 6 MO-64 YRS 2022-01-12 00:00:00 Completed [facility] Influenza Virus Vaccine Quad IM, Preserv and ABX Free 6 MO-64 YRS 2022-01-12 00:00:00 Completed [facility] Influenza Virus Vaccine Quad IM, Preserv and ABX Free 6 MO-64 YRS 2022-01-12 00:00:00 Completed [facility] Influenza Virus Vaccine Quad IM, Preserv and ABX Free 6 MO-64 YRS 2022-01-12 00:00:00 Completed [facility] Influenza Virus Vaccine Quad IM, Preserv and ABX Free 6 MO-64 YRS 2022-01-12 00:00:00 Completed [facility] Influenza Virus Vaccine Quad IM, Preserv and ABX Free 6 MO-64 YRS 2022-01-12 00:00:00 Completed [facility] Influenza Virus Vaccine Quad IM, Preserv and ABX Free 6 MO-64 YRS 2022-01-12 00:00:00 Completed [facility] Influenza Virus Vaccine Quad IM, Preserv and ABX Free 6 MO-64 YRS 2022-01-12 00:00:00 Completed [facility] Influenza Virus Vaccine Quad IM, Preserv and ABX Free 6 MO-64 YRS 2022-01-12 00:00:00 Completed [facility] Influenza Virus Vaccine Quad IM, Preserv and ABX Free 6 MO-64 YRS 2022-01-12 00:00:00 Completed [facility] Influenza Virus Vaccine Quad IM, Preserv and ABX Free 6 MO-64 YRS 2022-01-12 00:00:00 Completed [facility] Influenza Virus Vaccine Quad IM, Preserv and ABX Free 6 MO-64 YRS 2022-01-12 00:00:00 Completed [facility] Influenza Virus Vaccine Quad IM, Preserv and ABX Free 6 MO-64 YRS 2022-01-12 00:00:00 Completed [facility] Influenza Virus Vaccine Quad IM, Preserv and ABX Free 6 MO-64 YRS 2022-01-12 00:00:00 Completed [facility] Influenza Virus Vaccine Quad IM, Preserv and ABX Free 6 MO-64 YRS 2022-01-12 00:00:00 Completed [facility] Influenza Virus Vaccine Quad IM, Preserv and ABX Free 6 MO-64 YRS 2022-01-12 00:00:00 Completed [facility] Influenza Virus Vaccine Quad IM, Preserv and ABX Free 6 MO-64 YRS 2022-01-12 00:00:00 Completed [facility] Influenza Virus Vaccine Quad IM, Preserv and ABX Free 6 MO-64 YRS 2022-01-12 00:00:00 Completed [facility] Influenza Virus Vaccine Quad IM, Preserv and ABX Free 6 MO-64 YRS 2022-01-12 00:00:00 Completed [facility] Influenza Virus Vaccine Quad IM, Preserv and ABX Free 6 MO-64 YRS 2022-01-12 00:00:00 Completed [facility] Influenza Virus Vaccine Quad IM, Preserv and ABX Free 6 MO-64 YRS 2022-01-12 00:00:00 Completed [facility] Influenza Virus Vaccine Quad IM, Preserv and ABX Free 6 MO-64 YRS 2022-01-12 00:00:00 Completed [facility] Influenza Virus Vaccine Quad IM, Preserv and ABX Free 6 MO-64 YRS 2022-01-12 00:00:00 Completed [facility] Influenza Virus Vaccine Quad IM, Preserv and ABX Free 6 MO-64 YRS 2022-01-12 00:00:00 Completed [facility] Influenza Virus Vaccine Quad IM, Preserv and ABX Free 6 MO-64 YRS 2022-01-12 00:00:00 Completed [facility] Influenza Virus Vaccine Quad IM, Preserv and ABX Free 6 MO-64 YRS 2022-01-12 00:00:00 Completed [facility] Influenza Virus Vaccine Quad IM, Preserv and ABX Free 6 MO-64 YRS 2022-01-12 00:00:00 Completed [facility] Influenza Virus Vaccine Quad IM, Preserv and ABX Free 6 MO-64 YRS 2022-01-12 00:00:00 Completed [facility] Influenza Virus Vaccine Quad IM, Preserv and ABX Free 6 MO-64 YRS 2022-01-12 00:00:00 Completed [facility] Influenza Virus Vaccine Quad IM, Preserv and ABX Free 6 MO-64 YRS 2022-01-12 00:00:00 Completed [facility] Influenza Virus Vaccine Quad IM, Preserv and ABX Free 6 MO-64 YRS 2022-01-12 00:00:00 Completed [facility] Influenza Virus Vaccine Quad IM, Preserv and ABX Free 6 MO-64 YRS 2022-01-12 00:00:00 Completed [facility] Influenza Virus Vaccine Quad IM, Preserv and ABX Free 6 MO-64 YRS 2022-01-12 00:00:00 Completed [facility] Influenza Virus Vaccine Quad IM, Preserv and ABX Free 6 MO-64 YRS 2022-01-12 00:00:00 Completed [facility] Influenza Virus Vaccine Quad IM, Preserv and ABX Free 6 MO-64 YRS 2022-01-12 00:00:00 Completed [facility] Influenza Virus Vaccine Quad IM, Preserv and ABX Free 6 MO-64 YRS 2022-01-12 00:00:00 Completed [facility] Influenza Virus Vaccine Quad IM, Preserv and ABX Free 6 MO-64 YRS 2022-01-12 00:00:00 Completed [facility] Influenza Virus Vaccine Quad IM, Preserv and ABX Free 6 MO-64 YRS 2022-01-12 00:00:00 Completed [facility] Influenza Virus Vaccine Quad IM, Preserv and ABX Free 6 MO-64 YRS 2022-01-12 00:00:00 Completed [facility] Influenza Virus Vaccine Quad IM, Preserv and ABX Free 6 MO-64 YRS 2022-01-12 00:00:00 Completed [facility] Influenza Virus Vaccine Quad IM, Preserv and ABX Free 6 MO-64 YRS 2022-01-12 00:00:00 Completed [facility] Influenza Virus Vaccine Quad IM, Preserv and ABX Free 6 MO-64 YRS 2022-01-12 00:00:00 Completed [facility] Influenza Virus Vaccine Quad IM, Preserv and ABX Free 6 MO-64 YRS 2022-01-12 00:00:00 Completed [facility] Influenza Virus Vaccine Quad IM, Preserv and ABX Free 6 MO-64 YRS 2022-01-12 00:00:00 Completed [facility] Influenza Virus Vaccine Quad IM, Preserv and ABX Free 6 MO-64 YRS 2022-01-12 00:00:00 Completed [facility] Influenza Virus Vaccine Quad IM, Preserv and ABX Free 6 MO-64 YRS 2022-01-12 00:00:00 Completed [facility] Influenza Virus Vaccine Quad IM, Preserv and ABX Free 6 MO-64 YRS 2022-01-12 00:00:00 Completed [facility] Influenza Virus Vaccine Quad IM, Preserv and ABX Free 6 MO-64 YRS 2022-01-12 00:00:00 Completed [facility] Influenza Virus Vaccine Quad IM, Preserv and ABX Free 6 MO-64 YRS 2022-01-12 00:00:00 Completed [facility] Influenza Virus Vaccine Quad IM, Preserv and ABX Free 6 MO-64 YRS 2022-01-12 00:00:00 Completed [facility] Influenza Virus Vaccine Quad IM, Preserv and ABX Free 6 MO-64 YRS 2022-01-12 00:00:00 Completed [facility] Influenza Virus Vaccine Quad IM, Preserv and ABX Free 6 MO-64 YRS 2022-01-12 00:00:00 Completed [facility] Influenza Virus Vaccine Quad IM, Preserv and ABX Free 6 MO-64 YRS 2022-01-12 00:00:00 Completed [facility] Influenza Virus Vaccine Quad IM, Preserv and ABX Free 6 MO-64 YRS (FLUCELVAX) 2022-01-12 00:00:00 Completed [facility] Influenza Virus Vaccine Quad IM, Preserv and ABX Free 6 MO-64 YRS (FLUCELVAX) 2022-01-12 00:00:00 Completed [facility] Influenza Virus Vaccine Quad IM, Preserv and ABX Free 6 MO-64 YRS (FLUCELVAX) 2022-01-12 00:00:00 Completed [facility] Moderna COVID-19 Vaccine 2021-03-23 00:00:00 Completed SARS-COV-2 COVID-19 PFIZER VACCINE 2020-08-23 00:00:00 Completed [facility] SARS-COV-2 COVID-19 PFIZER VACCINE 2020-08-23 00:00:00 Completed [facility] SARS-COV-2 COVID-19 PFIZER VACCINE 2020-08-23 00:00:00 Completed [facility] SARS-COV-2 COVID-19 PFIZER VACCINE 2020-08-23 00:00:00 Completed [facility] SARS-COV-2 COVID-19 PFIZER VACCINE 2020-08-23 00:00:00 Completed [facility] SARS-COV-2 COVID-19 PFIZER VACCINE 2020-08-23 00:00:00 Completed [facility] SARS-COV-2 COVID-19 PFIZER VACCINE 2020-08-23 00:00:00 Completed [facility] SARS-COV-2 COVID-19 PFIZER VACCINE 2020-08-23 00:00:00 Completed [facility] SARS-COV-2 COVID-19 PFIZER VACCINE 2020-08-23 00:00:00 Completed [facility] SARS-COV-2 COVID-19 PFIZER VACCINE 2020-08-23 00:00:00 Completed [facility] SARS-COV-2 COVID-19 PFIZER VACCINE 2020-08-23 00:00:00 Completed [facility] SARS-COV-2 COVID-19 PFIZER VACCINE 2020-08-23 00:00:00 Completed [facility] SARS-COV-2 COVID-19 PFIZER VACCINE 2020-08-23 00:00:00 Completed [facility] SARS-COV-2 COVID-19 PFIZER VACCINE 2020-08-23 00:00:00 Completed [facility] SARS-COV-2 COVID-19 PFIZER VACCINE 2020-08-23 00:00:00 Completed [facility] SARS-COV-2 COVID-19 PFIZER VACCINE 2020-08-23 00:00:00 Completed [facility] SARS-COV-2 COVID-19 PFIZER VACCINE 2020-08-23 00:00:00 Completed [facility] SARS-COV-2 COVID-19 PFIZER VACCINE 2020-08-23 00:00:00 Completed [facility] SARS-COV-2 COVID-19 PFIZER VACCINE 2020-08-23 00:00:00 Completed [facility] SARS-COV-2 COVID-19 PFIZER VACCINE 2020-08-23 00:00:00 Completed [facility] SARS-COV-2 COVID-19 PFIZER VACCINE 2020-08-23 00:00:00 Completed [facility] SARS-COV-2 COVID-19 PFIZER VACCINE 2020-08-23 00:00:00 Completed [facility] SARS-COV-2 COVID-19 PFIZER VACCINE 2020-08-23 00:00:00 Completed [facility] SARS-COV-2 COVID-19 PFIZER VACCINE 2020-08-23 00:00:00 Completed [facility] SARS-COV-2 COVID-19 PFIZER VACCINE 2020-08-23 00:00:00 Completed [facility] SARS-COV-2 COVID-19 PFIZER VACCINE 2020-08-23 00:00:00 Completed [facility] SARS-COV-2 COVID-19 PFIZER VACCINE 2020-08-23 00:00:00 Completed [facility] SARS-COV-2 COVID-19 PFIZER VACCINE 2020-08-23 00:00:00 Completed [facility] SARS-COV-2 COVID-19 PFIZER VACCINE 2020-08-23 00:00:00 Completed [facility] SARS-COV-2 COVID-19 PFIZER VACCINE 2020-08-23 00:00:00 Completed [facility] SARS-COV-2 COVID-19 PFIZER VACCINE 2020-08-23 00:00:00 Completed [facility] SARS-COV-2 COVID-19 PFIZER VACCINE 2020-08-23 00:00:00 Completed [facility] SARS-COV-2 COVID-19 PFIZER VACCINE 2020-08-23 00:00:00 Completed [facility] SARS-COV-2 COVID-19 PFIZER VACCINE 2020-08-23 00:00:00 Completed [facility] SARS-COV-2 COVID-19 PFIZER VACCINE 2020-08-23 00:00:00 Completed [facility] SARS-COV-2 COVID-19 PFIZER VACCINE 2020-08-23 00:00:00 Completed [facility] SARS-COV-2 COVID-19 PFIZER VACCINE 2020-08-23 00:00:00 Completed [facility] SARS-COV-2 COVID-19 PFIZER VACCINE 2020-08-23 00:00:00 Completed [facility] SARS-COV-2 COVID-19 PFIZER VACCINE 2020-08-23 00:00:00 Completed [facility] SARS-COV-2 COVID-19 PFIZER VACCINE 2020-08-23 00:00:00 Completed [facility] SARS-COV-2 COVID-19 PFIZER VACCINE 2020-08-23 00:00:00 Completed [facility] SARS-COV-2 COVID-19 PFIZER VACCINE 2020-08-23 00:00:00 Completed [facility] SARS-COV-2 COVID-19 PFIZER VACCINE 2020-08-23 00:00:00 Completed [facility] SARS-COV-2 COVID-19 PFIZER VACCINE 2020-08-23 00:00:00 Completed [facility] SARS-COV-2 COVID-19 PFIZER VACCINE 2020-08-23 00:00:00 Completed [facility] SARS-COV-2 COVID-19 PFIZER VACCINE 2020-08-23 00:00:00 Completed [facility] SARS-COV-2 COVID-19 PFIZER VACCINE 2020-08-23 00:00:00 Completed [facility] SARS-COV-2 COVID-19 PFIZER VACCINE 2020-08-23 00:00:00 Completed [facility] SARS-COV-2 COVID-19 PFIZER VACCINE 2020-08-23 00:00:00 Completed [facility] SARS-COV-2 COVID-19 PFIZER VACCINE 2020-08-23 00:00:00 Completed [facility] SARS-COV-2 COVID-19 PFIZER VACCINE 2020-08-23 00:00:00 Completed [facility] SARS-COV-2 COVID-19 PFIZER VACCINE 2020-08-23 00:00:00 Completed [facility] SARS-COV-2 COVID-19 PFIZER VACCINE 2020-08-23 00:00:00 Completed [facility] SARS-COV-2 COVID-19 PFIZER VACCINE 2020-08-23 00:00:00 Completed [facility] SARS-COV-2 COVID-19 PFIZER VACCINE 2020-08-23 00:00:00 Completed [facility] SARS-COV-2 COVID-19 PFIZER VACCINE 2020-08-23 00:00:00 Completed [facility] SARS-COV-2 COVID-19 PFIZER VACCINE 2020-08-23 00:00:00 Completed [facility] SARS-COV-2 COVID-19 PFIZER VACCINE 2020-08-23 00:00:00 Completed [facility] SARS-COV-2 COVID-19 PFIZER VACCINE 2020-08-23 00:00:00 Completed [facility] SARS-COV-2 COVID-19 PFIZER VACCINE 2020-08-23 00:00:00 Completed [facility] SARS-COV-2 COVID-19 PFIZER VACCINE 2020-08-23 00:00:00 Completed [facility] SARS-COV-2 COVID-19 PFIZER VACCINE 2020-08-23 00:00:00 Completed [facility] SARS-COV-2 COVID-19 PFIZER VACCINE 2020-08-23 00:00:00 Completed [facility] SARS-COV-2 COVID-19 PFIZER VACCINE 2020-08-23 00:00:00 Completed [facility] SARS-COV-2 COVID-19 PFIZER VACCINE 2020-08-23 00:00:00 Completed [facility] SARS-COV-2 COVID-19 PFIZER VACCINE 2020-08-23 00:00:00 Completed [facility] SARS-COV-2 COVID-19 PFIZER VACCINE 2020-08-23 00:00:00 Completed [facility] SARS-COV-2 COVID-19 PFIZER VACCINE 2020-08-23 00:00:00 Completed [facility] SARS-COV-2 COVID-19 PFIZER VACCINE 2020-08-23 00:00:00 Completed [facility] SARS-COV-2 COVID-19 PFIZER VACCINE 2020-08-23 00:00:00 Completed [facility] SARS-COV-2 COVID-19 PFIZER VACCINE 2020-08-23 00:00:00 Completed [facility] SARS-COV-2 COVID-19 PFIZER VACCINE 2020-08-23 00:00:00 Completed [facility] SARS-COV-2 COVID-19 PFIZER VACCINE 2020-08-23 00:00:00 Completed [facility] SARS-COV-2 COVID-19 PFIZER VACCINE 2020-08-23 00:00:00 Completed [facility] SARS-COV-2 COVID-19 PFIZER VACCINE 2020-08-23 00:00:00 Completed [facility] SARS-COV-2 COVID-19 PFIZER VACCINE 2020-08-23 00:00:00 Completed [facility] SARS-COV-2 COVID-19 PFIZER VACCINE 2020-08-23 00:00:00 Completed [facility] SARS-COV-2 COVID-19 PFIZER VACCINE 2020-08-23 00:00:00 Completed [facility] SARS-COV-2 COVID-19 PFIZER VACCINE 2020-08-23 00:00:00 Completed [facility] SARS-COV-2 COVID-19 PFIZER VACCINE 2020-08-23 00:00:00 Completed [facility] SARS-COV-2 COVID-19 PFIZER VACCINE 2020-08-23 00:00:00 Completed [facility] SARS-COV-2 COVID-19 PFIZER VACCINE 2020-08-23 00:00:00 Completed [facility] SARS-COV-2 COVID-19 PFIZER VACCINE 2020-08-23 00:00:00 Completed [facility] SARS-COV-2 COVID-19 PFIZER VACCINE 2020-08-23 00:00:00 Completed [facility] SARS-COV-2 COVID-19 PFIZER VACCINE 2020-08-23 00:00:00 Completed [facility] SARS-COV-2 COVID-19 PFIZER VACCINE 2020-08-23 00:00:00 Completed [facility] SARS-COV-2 COVID-19 PFIZER VACCINE 2020-07-20 00:00:00 Completed [facility] SARS-COV-2 COVID-19 PFIZER VACCINE 2020-07-20 00:00:00 Completed [facility] SARS-COV-2 COVID-19 PFIZER VACCINE 2020-07-20 00:00:00 Completed [facility] SARS-COV-2 COVID-19 PFIZER VACCINE 2020-07-20 00:00:00 Completed [facility] SARS-COV-2 COVID-19 PFIZER VACCINE 2020-07-20 00:00:00 Completed [facility] SARS-COV-2 COVID-19 PFIZER VACCINE 2020-07-20 00:00:00 Completed [facility] SARS-COV-2 COVID-19 PFIZER VACCINE 2020-07-20 00:00:00 Completed [facility] SARS-COV-2 COVID-19 PFIZER VACCINE 2020-07-20 00:00:00 Completed [facility] SARS-COV-2 COVID-19 PFIZER VACCINE 2020-07-20 00:00:00 Completed [facility] SARS-COV-2 COVID-19 PFIZER VACCINE 2020-07-20 00:00:00 Completed [facility] SARS-COV-2 COVID-19 PFIZER VACCINE 2020-07-20 00:00:00 Completed [facility] SARS-COV-2 COVID-19 PFIZER VACCINE 2020-07-20 00:00:00 Completed [facility] SARS-COV-2 COVID-19 PFIZER VACCINE 2020-07-20 00:00:00 Completed [facility] SARS-COV-2 COVID-19 PFIZER VACCINE 2020-07-20 00:00:00 Completed [facility] SARS-COV-2 COVID-19 PFIZER VACCINE 2020-07-20 00:00:00 Completed [facility] SARS-COV-2 COVID-19 PFIZER VACCINE 2020-07-20 00:00:00 Completed [facility] SARS-COV-2 COVID-19 PFIZER VACCINE 2020-07-20 00:00:00 Completed [facility] SARS-COV-2 COVID-19 PFIZER VACCINE 2020-07-20 00:00:00 Completed [facility] SARS-COV-2 COVID-19 PFIZER VACCINE 2020-07-20 00:00:00 Completed [facility] SARS-COV-2 COVID-19 PFIZER VACCINE 2020-07-20 00:00:00 Completed [facility] SARS-COV-2 COVID-19 PFIZER VACCINE 2020-07-20 00:00:00 Completed [facility] SARS-COV-2 COVID-19 PFIZER VACCINE 2020-07-20 00:00:00 Completed [facility] SARS-COV-2 COVID-19 PFIZER VACCINE 2020-07-20 00:00:00 Completed [facility] SARS-COV-2 COVID-19 PFIZER VACCINE 2020-07-20 00:00:00 Completed [facility] SARS-COV-2 COVID-19 PFIZER VACCINE 2020-07-20 00:00:00 Completed [facility] SARS-COV-2 COVID-19 PFIZER VACCINE 2020-07-20 00:00:00 Completed [facility] SARS-COV-2 COVID-19 PFIZER VACCINE 2020-07-20 00:00:00 Completed [facility] SARS-COV-2 COVID-19 PFIZER VACCINE 2020-07-20 00:00:00 Completed [facility] SARS-COV-2 COVID-19 PFIZER VACCINE 2020-07-20 00:00:00 Completed [facility] SARS-COV-2 COVID-19 PFIZER VACCINE 2020-07-20 00:00:00 Completed [facility] SARS-COV-2 COVID-19 PFIZER VACCINE 2020-07-20 00:00:00 Completed [facility] SARS-COV-2 COVID-19 PFIZER VACCINE 2020-07-20 00:00:00 Completed [facility] SARS-COV-2 COVID-19 PFIZER VACCINE 2020-07-20 00:00:00 Completed [facility] SARS-COV-2 COVID-19 PFIZER VACCINE 2020-07-20 00:00:00 Completed [facility] SARS-COV-2 COVID-19 PFIZER VACCINE 2020-07-20 00:00:00 Completed [facility] SARS-COV-2 COVID-19 PFIZER VACCINE 2020-07-20 00:00:00 Completed [facility] SARS-COV-2 COVID-19 PFIZER VACCINE 2020-07-20 00:00:00 Completed [facility] SARS-COV-2 COVID-19 PFIZER VACCINE 2020-07-20 00:00:00 Completed [facility] SARS-COV-2 COVID-19 PFIZER VACCINE 2020-07-20 00:00:00 Completed [facility] SARS-COV-2 COVID-19 PFIZER VACCINE 2020-07-20 00:00:00 Completed [facility] SARS-COV-2 COVID-19 PFIZER VACCINE 2020-07-20 00:00:00 Completed [facility] SARS-COV-2 COVID-19 PFIZER VACCINE 2020-07-20 00:00:00 Completed [facility] SARS-COV-2 COVID-19 PFIZER VACCINE 2020-07-20 00:00:00 Completed [facility] SARS-COV-2 COVID-19 PFIZER VACCINE 2020-07-20 00:00:00 Completed [facility] SARS-COV-2 COVID-19 PFIZER VACCINE 2020-07-20 00:00:00 Completed [facility] SARS-COV-2 COVID-19 PFIZER VACCINE 2020-07-20 00:00:00 Completed [facility] SARS-COV-2 COVID-19 PFIZER VACCINE 2020-07-20 00:00:00 Completed [facility] SARS-COV-2 COVID-19 PFIZER VACCINE 2020-07-20 00:00:00 Completed [facility] SARS-COV-2 COVID-19 PFIZER VACCINE 2020-07-20 00:00:00 Completed [facility] SARS-COV-2 COVID-19 PFIZER VACCINE 2020-07-20 00:00:00 Completed [facility] SARS-COV-2 COVID-19 PFIZER VACCINE 2020-07-20 00:00:00 Completed [facility] SARS-COV-2 COVID-19 PFIZER VACCINE 2020-07-20 00:00:00 Completed [facility] SARS-COV-2 COVID-19 PFIZER VACCINE 2020-07-20 00:00:00 Completed [facility] SARS-COV-2 COVID-19 PFIZER VACCINE 2020-07-20 00:00:00 Completed [facility] SARS-COV-2 COVID-19 PFIZER VACCINE 2020-07-20 00:00:00 Completed [facility] SARS-COV-2 COVID-19 PFIZER VACCINE 2020-07-20 00:00:00 Completed [facility] SARS-COV-2 COVID-19 PFIZER VACCINE 2020-07-20 00:00:00 Completed [facility] SARS-COV-2 COVID-19 PFIZER VACCINE 2020-07-20 00:00:00 Completed [facility] SARS-COV-2 COVID-19 PFIZER VACCINE 2020-07-20 00:00:00 Completed [facility] SARS-COV-2 COVID-19 PFIZER VACCINE 2020-07-20 00:00:00 Completed [facility] SARS-COV-2 COVID-19 PFIZER VACCINE 2020-07-20 00:00:00 Completed [facility] SARS-COV-2 COVID-19 PFIZER VACCINE 2020-07-20 00:00:00 Completed [facility] SARS-COV-2 COVID-19 PFIZER VACCINE 2020-07-20 00:00:00 Completed [facility] SARS-COV-2 COVID-19 PFIZER VACCINE 2020-07-20 00:00:00 Completed [facility] SARS-COV-2 COVID-19 PFIZER VACCINE 2020-07-20 00:00:00 Completed [facility] SARS-COV-2 COVID-19 PFIZER VACCINE 2020-07-20 00:00:00 Completed [facility] SARS-COV-2 COVID-19 PFIZER VACCINE 2020-07-20 00:00:00 Completed [facility] SARS-COV-2 COVID-19 PFIZER VACCINE 2020-07-20 00:00:00 Completed [facility] SARS-COV-2 COVID-19 PFIZER VACCINE 2020-07-20 00:00:00 Completed [facility] SARS-COV-2 COVID-19 PFIZER VACCINE 2020-07-20 00:00:00 Completed [facility] SARS-COV-2 COVID-19 PFIZER VACCINE 2020-07-20 00:00:00 Completed [facility] SARS-COV-2 COVID-19 PFIZER VACCINE 2020-07-20 00:00:00 Completed [facility] SARS-COV-2 COVID-19 PFIZER VACCINE 2020-07-20 00:00:00 Completed [facility] SARS-COV-2 COVID-19 PFIZER VACCINE 2020-07-20 00:00:00 Completed [facility] SARS-COV-2 COVID-19 PFIZER VACCINE 2020-07-20 00:00:00 Completed [facility] SARS-COV-2 COVID-19 PFIZER VACCINE 2020-07-20 00:00:00 Completed [facility] SARS-COV-2 COVID-19 PFIZER VACCINE 2020-07-20 00:00:00 Completed [facility] SARS-COV-2 COVID-19 PFIZER VACCINE 2020-07-20 00:00:00 Completed [facility] SARS-COV-2 COVID-19 PFIZER VACCINE 2020-07-20 00:00:00 Completed [facility] SARS-COV-2 COVID-19 PFIZER VACCINE 2020-07-20 00:00:00 Completed [facility] SARS-COV-2 COVID-19 PFIZER VACCINE 2020-07-20 00:00:00 Completed [facility] SARS-COV-2 COVID-19 PFIZER VACCINE 2020-07-20 00:00:00 Completed [facility] SARS-COV-2 COVID-19 PFIZER VACCINE 2020-07-20 00:00:00 Completed [facility] SARS-COV-2 COVID-19 PFIZER VACCINE 2020-07-20 00:00:00 Completed [facility] SARS-COV-2 COVID-19 PFIZER VACCINE 2020-07-20 00:00:00 Completed [facility] SARS-COV-2 COVID-19 PFIZER VACCINE 2020-07-20 00:00:00 Completed [facility] TDAP 2019-12-11 00:00:00 Completed [facility] TDAP 2019-12-11 00:00:00 Completed [facility] TDAP 2019-12-11 00:00:00 Completed [facility] TDAP 2019-12-11 00:00:00 Completed [facility] TDAP 2019-12-11 00:00:00 Completed [facility] TDAP 2019-12-11 00:00:00 Completed [facility] TDAP 2019-12-11 00:00:00 Completed [facility] TDAP 2019-12-11 00:00:00 Completed [facility] TDAP 2019-12-11 00:00:00 Completed [facility] TDAP 2019-12-11 00:00:00 Completed [facility] TDAP 2019-12-11 00:00:00 Completed [facility] TDAP 2019-12-11 00:00:00 Completed [facility] TDAP 2019-12-11 00:00:00 Completed [facility] TDAP 2019-12-11 00:00:00 Completed [facility] TDAP 2019-12-11 00:00:00 Completed [facility] TDAP 2019-12-11 00:00:00 Completed [facility] TDAP 2019-12-11 00:00:00 Completed [facility] TDAP 2019-12-11 00:00:00 Completed [facility] TDAP 2019-12-11 00:00:00 Completed [facility] TDAP 2019-12-11 00:00:00 Completed [facility] TDAP 2019-12-11 00:00:00 Completed [facility] TDAP 2019-12-11 00:00:00 Completed [facility] TDAP 2019-12-11 00:00:00 Completed [facility] TDAP 2019-12-11 00:00:00 Completed [facility] TDAP 2019-12-11 00:00:00 Completed [facility] TDAP 2019-12-11 00:00:00 Completed [facility] TDAP 2019-12-11 00:00:00 Completed [facility] TDAP 2019-12-11 00:00:00 Completed [facility] TDAP 2019-12-11 00:00:00 Completed [facility] TDAP 2019-12-11 00:00:00 Completed [facility] TDAP 2019-12-11 00:00:00 Completed [facility] TDAP 2019-12-11 00:00:00 Completed [facility] TDAP 2019-12-11 00:00:00 Completed [facility] TDAP 2019-12-11 00:00:00 Completed [facility] TDAP 2019-12-11 00:00:00 Completed [facility] TDAP 2019-12-11 00:00:00 Completed [facility] TDAP 2019-12-11 00:00:00 Completed [facility] TDAP 2019-12-11 00:00:00 Completed [facility] TDAP 2019-12-11 00:00:00 Completed [facility] TDAP 2019-12-11 00:00:00 Completed [facility] TDAP 2019-12-11 00:00:00 Completed [facility] TDAP 2019-12-11 00:00:00 Completed [facility] TDAP 2019-12-11 00:00:00 Completed [facility] TDAP 2019-12-11 00:00:00 Completed [facility] TDAP 2019-12-11 00:00:00 Completed [facility] TDAP 2019-12-11 00:00:00 Completed [facility] TDAP 2019-12-11 00:00:00 Completed [facility] TDAP 2019-12-11 00:00:00 Completed [facility] TDAP 2019-12-11 00:00:00 Completed [facility] TDAP 2019-12-11 00:00:00 Completed [facility] TDAP 2019-12-11 00:00:00 Completed [facility] TDAP 2019-12-11 00:00:00 Completed [facility] TDAP 2019-12-11 00:00:00 Completed [facility] TDAP 2019-12-11 00:00:00 Completed [facility] TDAP 2019-12-11 00:00:00 Completed [facility] TDAP 2019-12-11 00:00:00 Completed [facility] TDAP 2019-12-11 00:00:00 Completed [facility] TDAP 2019-12-11 00:00:00 Completed [facility] TDAP 2019-12-11 00:00:00 Completed [facility] TDAP 2019-12-11 00:00:00 Completed [facility] TDAP 2019-12-11 00:00:00 Completed [facility] TDAP 2019-12-11 00:00:00 Completed [facility] TDAP 2019-12-11 00:00:00 Completed [facility] TDAP 2019-12-11 00:00:00 Completed [facility] TDAP 2019-12-11 00:00:00 Completed [facility] TDAP 2019-12-11 00:00:00 Completed [facility] TDAP 2019-12-11 00:00:00 Completed [facility] TDAP 2019-12-11 00:00:00 Completed [facility] TDAP 2019-12-11 00:00:00 Completed [facility] TDAP 2019-12-11 00:00:00 Completed [facility] TDAP 2019-12-11 00:00:00 Completed [facility] TDAP 2019-12-11 00:00:00 Completed [facility] TDAP 2019-12-11 00:00:00 Completed [facility] TDAP 2019-12-11 00:00:00 Completed [facility] TDAP 2019-12-11 00:00:00 Completed [facility] TDAP 2019-12-11 00:00:00 Completed [facility] TDAP 2019-12-11 00:00:00 Completed [facility] TDAP 2019-12-11 00:00:00 Completed [facility] TDAP 2019-12-11 00:00:00 Completed [facility] TDAP 2019-12-11 00:00:00 Completed [facility] TDAP 2019-12-11 00:00:00 Completed [facility] TDAP 2019-12-11 00:00:00 Completed [facility] TDAP 2019-12-11 00:00:00 Completed [facility] TDAP 2019-12-11 00:00:00 Completed [facility] TDAP 2019-12-11 00:00:00 Completed [facility] TDAP 2019-12-11 00:00:00 Completed [facility] TDAP Unknown Completed [facility] SARS-COV-2 COVID-19 PFIZER VACCINE Unknown Completed [facility] SARS-COV-2 COVID-19 PFIZER VACCINE Unknown Completed [facility] Influenza Virus Vaccine Quad IM, Preserv and ABX Free 6 MO-64 YRS (FLUCELVAX) Unknown Completed [facility] TDAP Unknown Completed [facility] SARS-COV-2 COVID-19 PFIZER VACCINE Unknown Completed [facility] SARS-COV-2 COVID-19 PFIZER VACCINE Unknown Completed [facility] Influenza Virus Vaccine Quad IM, Preserv and ABX Free 6 MO-64 YRS (FLUCELVAX) Unknown Completed [facility] TDAP Unknown Completed [facility] SARS-COV-2 COVID-19 PFIZER VACCINE Unknown Completed [facility] SARS-COV-2 COVID-19 PFIZER VACCINE Unknown Completed [facility] Influenza Virus Vaccine Quad IM, Preserv and ABX Free 6 MO-64 YRS (FLUCELVAX) Unknown Completed [facility] TDAP Unknown Completed [facility] SARS-COV-2 COVID-19 PFIZER VACCINE Unknown Completed [facility] SARS-COV-2 COVID-19 PFIZER VACCINE Unknown Completed [facility] Influenza Virus Vaccine Quad IM, Preserv and ABX Free 6 MO-64 YRS (FLUCELVAX) Unknown Completed [facility] TDAP Unknown Completed [facility] SARS-COV-2 COVID-19 PFIZER VACCINE Unknown Completed [facility] SARS-COV-2 COVID-19 PFIZER VACCINE Unknown Completed [facility] Influenza Virus Vaccine Quad IM, Preserv and ABX Free 6 MO-64 YRS (FLUCELVAX) Unknown Completed [facility] TDAP Unknown Completed [facility] SARS-COV-2 COVID-19 PFIZER VACCINE Unknown Completed [facility] SARS-COV-2 COVID-19 PFIZER VACCINE Unknown Completed [facility] Influenza Virus Vaccine Quad IM, Preserv and ABX Free 6 MO-64 YRS (FLUCELVAX) Unknown Completed [facility] TDAP Unknown Completed [facility] SARS-COV-2 COVID-19 PFIZER VACCINE Unknown Completed [facility] SARS-COV-2 COVID-19 PFIZER VACCINE Unknown Completed [facility] Influenza Virus Vaccine Quad IM, Preserv and ABX Free 6 MO-64 YRS (FLUCELVAX) Unknown Completed [facility] TDAP Unknown Completed [facility] SARS-COV-2 COVID-19 PFIZER VACCINE Unknown [facility] [facility] SARS-COV-2 COVID-19 PFIZER VACCINE Unknown Completed [facility] Influenza Virus Vaccine Quad IM, Preserv and ABX Free 6 MO-64 YRS (FLUCELVAX) Unknown Completed [facility] TDAP Unknown Completed [facility] SARS-COV-2 COVID-19 PFIZER VACCINE Unknown Completed [facility] SARS-COV-2 COVID-19 PFIZER VACCINE Unknown Completed [facility] Influenza Virus Vaccine Quad IM, Preserv and ABX Free 6 MO-64 YRS (FLUCELVAX) Unknown Completed [facility] TDAP Unknown Completed [facility] SARS-COV-2 COVID-19 PFIZER VACCINE Unknown Completed [facility] SARS-COV-2 COVID-19 PFIZER VACCINE Unknown Completed [facility] Influenza Virus Vaccine Quad IM, Preserv and ABX Free 6 MO-64 YRS (FLUCELVAX) Unknown Completed [facility] TDAP Unknown Completed [facility] SARS-COV-2 COVID-19 PFIZER VACCINE Unknown Completed [facility] SARS-COV-2 COVID-19 PFIZER VACCINE Unknown Completed [facility] Influenza Virus Vaccine Quad IM, Preserv and ABX Free 6 MO-64 YRS (FLUCELVAX) Unknown Completed [facility] TDAP Unknown Completed [facility] SARS-COV-2 COVID-19 PFIZER VACCINE Unknown Completed [facility] SARS-COV-2 COVID-19 PFIZER VACCINE Unknown Completed [facility] Influenza Virus Vaccine Quad IM, Preserv and ABX Free 6 MO-64 YRS (FLUCELVAX) Unknown Completed [facility] TDAP Unknown Completed [facility] SARS-COV-2 COVID-19 PFIZER VACCINE Unknown Completed [facility] SARS-COV-2 COVID-19 PFIZER VACCINE Unknown Completed [facility] Influenza Virus Vaccine Quad IM, Preserv and ABX Free 6 MO-64 YRS (FLUCELVAX) Unknown Completed [facility] TDAP Unknown Completed [facility] SARS-COV-2 COVID-19 PFIZER VACCINE Unknown Completed [facility] SARS-COV-2 COVID-19 PFIZER VACCINE Unknown Completed [facility] Influenza Virus Vaccine Quad IM, Preserv and ABX Free 6 MO-64 YRS (FLUCELVAX) Unknown Completed [facility] TDAP Unknown Completed [facility] SARS-COV-2 COVID-19 PFIZER VACCINE Unknown Completed [facility] SARS-COV-2 COVID-19 PFIZER VACCINE Unknown Completed [facility] Influenza Virus Vaccine Quad IM, Preserv and ABX Free 6 MO-64 YRS (FLUCELVAX) Unknown Completed [facility] TDAP Unknown Completed [facility] SARS-COV-2 COVID-19 PFIZER VACCINE Unknown Completed [facility] SARS-COV-2 COVID-19 PFIZER VACCINE Unknown Completed [facility] Influenza Virus Vaccine Quad IM, Preserv and ABX Free 6 MO-64 YRS (FLUCELVAX) Unknown Completed [facility] TDAP Unknown Completed [facility] SARS-COV-2 COVID-19 PFIZER VACCINE Unknown Completed [facility] SARS-COV-2 COVID-19 PFIZER VACCINE Unknown Completed [facility] Influenza Virus Vaccine Quad IM, Preserv and ABX Free 6 MO-64 YRS (FLUCELVAX) Unknown Completed [facility] TDAP Unknown Completed [facility] SARS-COV-2 COVID-19 PFIZER VACCINE Unknown Completed [facility] SARS-COV-2 COVID-19 PFIZER VACCINE Unknown Completed [facility] Influenza Virus Vaccine Quad IM, Preserv and ABX Free 6 MO-64 YRS (FLUCELVAX) Unknown Completed [facility] TDAP Unknown Completed [facility] SARS-COV-2 COVID-19 PFIZER VACCINE Unknown Completed [facility] SARS-COV-2 COVID-19 PFIZER VACCINE Unknown Completed [facility] Influenza Virus Vaccine Quad IM, Preserv and ABX Free 6 MO-64 YRS (FLUCELVAX) Unknown Completed [facility] TDAP Unknown Completed [facility] SARS-COV-2 COVID-19 PFIZER VACCINE Unknown Completed [facility] SARS-COV-2 COVID-19 PFIZER VACCINE Unknown Completed [facility] Influenza Virus Vaccine Quad IM, Preserv and ABX Free 6 MO-64 YRS (FLUCELVAX) Unknown Completed [facility] TDAP Unknown Completed [facility] SARS-COV-2 COVID-19 PFIZER VACCINE Unknown Completed [facility] SARS-COV-2 COVID-19 PFIZER VACCINE Unknown Completed [facility] Influenza Virus Vaccine Quad IM, Preserv and ABX Free 6 MO-64 YRS (FLUCELVAX) Unknown Completed [facility] TDAP Unknown Completed [facility] SARS-COV-2 COVID-19 PFIZER VACCINE Unknown Completed [facility] SARS-COV-2 COVID-19 PFIZER VACCINE Unknown Completed [facility] Influenza Virus Vaccine Quad IM, Preserv and ABX Free 6 MO-64 YRS (FLUCELVAX) Unknown Completed [facility] TDAP Unknown Completed [facility] SARS-COV-2 COVID-19 PFIZER VACCINE Unknown Completed [facility] SARS-COV-2 COVID-19 PFIZER VACCINE Unknown Completed [facility] Influenza Virus Vaccine Quad IM, Preserv and ABX Free 6 MO-64 YRS (FLUCELVAX) Unknown Completed [facility] TDAP Unknown Completed [facility] SARS-COV-2 COVID-19 PFIZER VACCINE Unknown Completed [facility] SARS-COV-2 COVID-19 PFIZER VACCINE Unknown Completed [facility] Influenza Virus Vaccine Quad IM, Preserv and ABX Free 6 MO-64 YRS (FLUCELVAX) Unknown Completed [facility] TDAP Unknown Completed [facility] SARS-COV-2 COVID-19 PFIZER VACCINE Unknown Completed [facility] SARS-COV-2 COVID-19 PFIZER VACCINE Unknown Completed [facility] Influenza Virus Vaccine Quad IM, Preserv and ABX Free 6 MO-64 YRS (FLUCELVAX) Unknown Completed [facility] Vital Signs Vital Name Observation Time Observation Value Comments S ource Systolic blood pressure 2023-07-20 14:56:00 101 mm[Hg] [facility] Diastolic blood pressure 2023-07-20 14:56:00 66 mm[Hg] [facility] Heart rate 2023-07-20 14:56:00 93 /min [facility] Body temperature 2023-07-20 14:56:00 36.72 Kimberly [facility] Body height 2023-07-20 14:56:00 157.5 cm [facility] Body weight 2023-07-20 14:56:00 74.844 kg [facility] BMI 2023-07-20 14:56:00 30.18 kg/m2 [facility] Systolic blood pressure 2023-05-04 19:34:00 144 mm[Hg] [facility] Diastolic blood pressure 2023-05-04 19:34:00 83 mm[Hg] [facility] Heart rate 2023-05-04 19:33:00 106 /min [facility] Body height 2023-05-04 19:33:00 157.5 cm [facility] Body weight 2023-05-04 19:33:00 73.029 kg [facility] BMI 2023-05-04 19:33:00 29.45 kg/m2 [facility] Systolic blood pressure 2022-08-02 15:09:00 126 mm[Hg] [facility] Diastolic blood pressure 2022-08-02 15:09:00 82 mm[Hg] [facility] Heart rate 2022-08-02 15:09:00 114 /min [facility] Body height 2022-08-02 15:09:00 157.5 cm [facility] Body weight 2022-08-02 15:09:00 74.844 kg [facility] BMI 2022-08-02 15:09:00 30.18 kg/m2 [facility] Systolic blood pressure 2022-03-31 19:09:00 96 mm[Hg] [facility] Diastolic blood pressure 2022-03-31 19:09:00 63 mm[Hg] [facility] Heart rate 2022-03-31 19:09:00 128 /min [facility] Body temperature 2022-03-31 19:09:00 37.39 Kimberly [facility] Body height 2022-03-31 19:09:00 157.5 cm [facility] Body weight 2022-03-31 19:09:00 79.833 kg [facility] BMI 2022-03-31 19:09:00 32.19 kg/m2 [facility] Systolic blood pressure 2022-02-26 18:01:00 118 mm[Hg] [facility] Diastolic blood pressure 2022-02-26 18:01:00 78 mm[Hg] [facility] Heart rate 2022-02-26 18:01:00 114 /min [facility] Body height 2022-02-26 18:01:00 157.5 cm [facility] Body weight 2022-02-26 18:01:00 85.367 kg [facility] BMI 2022-02-26 18:01:00 34.42 kg/m2 [facility] Oxygen saturation in Arterial blood by Pulse oximetry 2022-02-26 18:01:00 95 /min [facility] Systolic blood pressure 2022-01-12 20:02:00 143 mm[Hg] [facility] Diastolic blood pressure 2022-01-12 20:02:00 82 mm[Hg] [facility] Heart rate 2022-01-12 20:01:00 120 /min [facility] Body temperature 2022-01-12 20:01:00 37.22 Kimberly [facility] Body height 2022-01-12 20:01:00 157.5 cm [facility] Body weight 2022-01-12 20:01:00 86.637 kg [facility] BMI 2022-01-12 20:01:00 34.93 kg/m2 [facility] BP Systolic 2022-02-11 11:33:00 BP Diastolic 2022-02-11 [...] 16.00 /min Procedures Procedure Date / Time Performed Performing Clinician Source DME/SUPPLY JUSTIFICATION 2023-06-20 06:01:00 Doc tor [facility]igned[facility] CONSENT/REFUSAL FOR DIAGNOSIS AND TREATMENT 2023-05-04 19:00:34 Doctor Unassigned, [facility] MEDICATION CORRESPONDENCE 2023-04-01 06:01:00 Do ctor Unassigned, [facility] MEDICAL RELEASE/CLEARANCE FORMS 2022-09-06 05:01:00 Doctor Unassigned[facility] PATIENT FINANCIAL POLICY 2022-08-02 15:01:15 Doctor Unassigned, [facility] DME/SUPPLY JUSTIFICATION 2022-05-17 06:01:00 Doc tor Unassigned, [facility] DME/SUPPLY JUSTIFICATION 2022-05-03 06:01:00 Doc tor Unassigned, [facility] MEDICATION CORRESPONDENCE 2022-04-06 06:01:00 Do ctor Unassigned, [facility] INSURANCE CORRESPONDENCE 2022-03-17 06:01:00 Doc tor Unassigned, [facility] DME/SUPPLY JUSTIFICATION 2022-03-11 06:01:00 Doc tor Unassigned, [facility] EXTERNAL PROVIDER RECORDS 2022-01-28 05:01:00 Do ctor Unassigned, [facility] ASSIGNMENT OF BENEFITS 2022-01-12 19:46:51 Docto r Unassigned, [facility] POCT HEMOGLOBIN A1C TEST 2022-01-12 00:00:00 Florecita Valentin [facility] INSURANCE CORRESPONDENCE 2021-11-12 05:01:00 Doc tor Unassigned, [facility] Plan of Care Planned Activity Planned Date Details Comments Source Goal Plan of Care Note [code = 97190-6] Goal Plan of Care Note [code = 19407-0] Goal Plan of Care Note [code = 75970-3] Goal Plan of Care Note [code = 43093-3] Goal Plan of Care Note [code = 83112-2] Goal Plan of Care Note [code = 39107-1] Goal Plan of Care Note [code = 60763-7] Goal Plan of Care Note [code = 05430-2] Goal Plan of Care Note [code = 11847-8] Goal Plan of Care Note [code = 09787-7] Goal Plan of Care Note [code = 88596-8] Goal Plan of Care Note [code = 52055-3] Goal Plan of Care Note [code = 34437-5] Goal Plan of Care Note [code = 05736-0] Goal Plan of Care Note [code = 62594-6] Goal Plan of Care Note [code = 32632-4] Goal Plan of Care Note [code = 58336-1] Goal Plan of Care Note [code = 84563-7] Goal Plan of Care Note [code = 78654-7] Goal Plan of Care Note [code = 01000-6] Encounters Start Date/Time End Date/Time Encounter Type Admission Type Attending Clinicians Care Facility Care Department Encounter ID Source 2022-12-20 10:01:00 Outpatient [facility] [id number] [facility] 2022-12-17 16:40:00 Outpatient [facility] [id number] [facility] 2022-09-30 08:53:00 Outpatient GABRIEL [facility]CCALLH [facility] [id number] [facility] 2023-08-12 11:00:00 2023-08-12 11:00:00 Outpatient VINCENZO CARMICHAEL [facility] [id number] [facility] 2023-08-09 14:00:00 2023-08-09 14:00:00 Outpatient RAUL CLAUDIO [facility] [id number] [facility] 2023-07-28 00:00:00 2023-07-28 00:00:00 Refill [facility] 1.2.840.114 350.1.13.10 4.2.7.2.686 [id number] [facility] 2023-07-20 10:30:00 2023-07-20 11:00:00 Office Visit [facility] 1.2.840.114 350.1.13.10 4.2.7.2.686 [id number] [facility] 2023-07-20 10:30:00 2023-07-20 10:08:25 Outpatient FLORECITA LINCOLN [facility] [id number] [facility] 2023 10:08:57 2023 10:08:57 Outpatient [facility] [id number] [facility] 2023-07-07 10:30:00 2023-07-07 10:30:00 Outpatient FLORECITA LINCOLN [facility] [id number] [facility] 2023-06-21 09:00:00 2023-06-21 09:00:00 Outpatient Vee MCNEILL RAUL [facility] [id number] [facility] 2023-06-20 00:00:00 2023-06-20 00:00:00 Orders Only Doctor Unassigned[facility] 1..840.114 350.1.13.10 4.2.7.2.686 [id number] [facility] 2023-06-16 14:58:06 2023-06-16 14:58:06 Outpatient [facility] [id number] Scott Dunn 2023-06-06 00:00:00 2023-06-06 00:00:00 RefVincenzo Reynolds [facility] 1..840.114 350.1.13.10 4.2.7.2.686 [id number] 220 [id number] [facility] 2023-06-05 00:00:00 2023-06-05 00:00:00 Refill Vincenzo Sanches [facility] 1..840.114 350.1.13.10 4.2.7.2.686 [id number] [facility] 2023-06-03 00:00:00 2023-06-03 00:00:00 [facility] 1.2.840.114 350.1.13.10 4.2.7.2.686 [id number] [facility] 2023-05-27 00:00:00 2023-05-27 00:00:00 Refill NewtonEduardo [facility] 1.84.114 350.1.13.10 4.2.7.2.686 [id number] [facility] 2023-05-25 10:30:00 2023-05-25 10:30:00 Outpatient FLORECITA LINCOLN [facility] [id number] [facility] 2023-05-12 00:00:00 2023-05-12 00:00:00 Refill Florecita Atkins [facility] 1.840.114 350.1.13.10 4.2.7.2.686 [id number] [facility] 2023-05-04 13:45:00 2023-05-04 14:00:00 Office Visit Florecita Atkins [facility] 1.84.114 350.1.13.10 4.2.7.2.686 [id number] [facility] 2023-05-04 13:45:00 2023-05-04 13:44:32 Outpatient FLORECITA LINCOLN [facility] [id number] [facility] 2023-05-04 00:00:00 2023-05-04 00:00:00 Orders Only Doctor Unassigned[facility] 1.84.114 350.1.13.10 4.2.7.2.686 [id number] [facility] 2023-04-26 10:00:00 2023-04-26 10:00:00 Outpatient FLORECITA LINCOLN [facility] [id number] [facility] 2023-04-26 00:00:00 2023-04-26 00:00:00 Telephone Jennifer Florecita [facility] 1.2840.114 350.1.13.10 4.2.7.2.686 [id number] [facility] 2023-04-25 00:00:00 2023-04-25 00:00:00 [facility] 1.840.114 350.1.13.10 4.2.7.2.686 [id number] [facility] 2023-04-17 00:00:00 2023-04-17 00:00:00 Refill Tony Feldman [facility] 1.840.114 350.1.13.10 4.2.7.2.686 [id number] [facility] 2023-04-01 00:00:00 2023-04-01 00:00:00 Orders Only Doctor Unassigned, [facility] 1.2840.114 350.1.13.10 4.2.7.2.686 [id number] [facility] 2023-03-31 00:00:00 2023-03-31 00:00:00 Telephone Florecita Atkins [facility] 1.840.114 350.1.13.10 4.2.7.2.686 [id number] [facility] 2023-03-25 00:00:00 2023-03-25 00:00:00 Refill Florecita Atkins [facility] 1.2840.114 350.1.13.10 4.2.7.2.686 [id number] [facility] 2023-03-04 00:00:00 2023-03-04 00:00:00 Bob SanchesVincenzo [facility] 1..840.114 350.1.13.10 4.2.7.2.686 [id number] [facility] 2023-02-28 00:00:00 2023-02-28 00:00:00 Refill Florecita Atkins [facility] 1..840.114 350.1.13.10 4.2.7.2.686 [id number] [facility] 2023-02-22 00:00:00 2023-02-22 00:00:00 Refill Florecita Atkins [facility] 1..840.114 350.1.13.10 4.2.7.2.686 [id number] [facility] 2023-02-21 12:00:00 2023-02-21 12:00:00 Outpatient TONY POTTS YU [facility] [id number] [facility] 2023-02-21 00:00:00 2023-02-21 00:00:00 Outpatient GC_GCBZW_Ka diyala_S PRIV PRIV [id number] [facility] 2023-02-20 00:00:00 2023-02-20 00:00:00 Outpatient GC_GCBZW_Ka diyala_S PRIV PRIV [id number] [facility] 2023-02-08 00:00:00 2023-02-08 00:00:00 Florecita Montoya [facility] 1.2.840.114 350.1.13.10 4.2.7.2.686 [id number] [facility] 2023-01-24 00:00:00 2023-01-24 00:00:00 Refill Newton Eduardo [facility] 1.2840.114 350.1.13.10 4.2.7.2.686 [id number] [facility] 2023-01-12 00:00:00 2023-01-12 00:00:00 Refill Tony Feldman [facility] 1.2840.114 350.1.13.10 4.2.7.2.686 [id number] [facility] 2023-01-12 00:00:00 2023-01-12 00:00:00 Refill Vincenzo Sanches [facility] 1.840.114 350.1.13.10 4.2.7.2.686 [id number] [facility] 2022-12-30 00:00:00 2022-12-30 00:00:00 Refill Florecita Atkins [facility] 1.0.114 350.1.13.10 4.2.7.2.686 [id number] [facility] 2022-12-28 00:00:00 2022-12-28 00:00:00 Telephone Florecita Atkins [facility] 1.0.114 350.1.13.10 4.2.7.2.686 [id number] [facility] 2022-12-22 00:00:00 2022-12-22 00:00:00 Telephone Florecita Atkins [facility] 1.2.114 350.1.13.10 4.2.7.2.686 [id number] [facility] 2022-12-22 00:00:00 2022-12-22 00:00:00 (TEL) STLMLC STLMLC [id number] [facility] 2022-11-22 13:30:00 2022-11-22 13:30:00 Outpatient R TONY FELDMAN YU [facility] [id number] [facility] 2022-11-18 00:00:00 2022-11-18 00:00:00 Telephone Jennifer [facility]Y?[facility] 1.2.840.114 350.1.13.10 4.2.7.2.686 [id number] [facility] 2022-11-17 00:00:00 2022-11-17 00:00:00 RefTony Sutherland [facility] [facility] 1.2.840.114 350.1.13.10 4.2.7.2.686 [id number] 220 [id number] [facility] 2022-11-05 00:00:00 2022-11-05 00:00:00 Telephone Lorainegonzalodilma Florecita [facility] J[facility]Y?[facility] 1.2.840.114 350.1.13.10 4.2.7.2.686 [id number] 044 [id number] [facility] 2022-10-30 00:00:00 2022-10-30 00:00:00 Refill Loraineclaudia Florecita [facility] J[facility]Y?[facility] 1.2.840.114 350.1.13.10 4.2.7.2.686 [id number] 044 [id number] [facility] 2022-10-13 00:00:00 2022-10-13 00:00:00 Refill Loraineclaudia [facility]Y?[facility] 1.2840.114 350.1.13.10 4.2.7.2.686 [id number] 044 [id number] [facility] 2022-10-13 00:00:00 2022-10-13 00:00:00 Refill Florecita tAkins [facility] JAYY?[facility] 1.2840.114 350.1.13.10 4.2.7.2.686 [id number] 220 [id number] [facility] 2022-09-29 00:00:00 2022-09-29 00:00:00 Refill Princess Lizarraga [facility] 1.2840.114 350.1.13.10 4.2.7.2.686 [id number] 220 [id number] [facility] 2022-09-23 00:00:00 2022-09-23 00:00:00 Refill Eduardo Newton [facility] 1.2840.114 350.1.13.10 4.2.7.2.686 [id number] 044 [id number] [facility] 2022-09-06 00:00:00 2022-09-06 00:00:00 Orders Only Doctor Unassigned, [facility] 1.2840.114 350.1.13.10 4.2.7.2.686 [id number] [id number] [facility] 2022-09-04 00:00:00 2022-09-04 00:00:00 Refill Florecita Atkins [facility] JAYY?[facility] 1.2840.114 350.1.13.10 4.2.7.2.686 [id number] 044 [id number] [facility] 2022-09-03 00:00:00 2022-09-03 00:00:00 Telephone Florecita Atkins [facility] 1.2840.114 350.1.13.10 4.2.7.2.686 [id number] 044 [id number] [facility] 2022-09-01 00:00:00 2022-09-01 00:00:00 Refill Florecita Atkins [facility] 1.2840.114 350.1.13.10 4.2.7.2.686 [id number] 044 [id number] [facility] 2022-09-01 00:00:00 2022-09-01 00:00:00 Refill Florecita Atkins [facility] 1.2840.114 350.1.13.10 4.2.7.2.686 [id number] 044 [id number] [facility] 2022-09-01 00:00:00 2022-09-01 00:00:00 Refill Florecita Atkins [facility]Y?[facility] 1.2840.114 350.1.13.10 4.2.7.2.686 [id number] 044 [id number] [facility] 2022-09-01 00:00:00 2022-09-01 00:00:00 Telephone Florecita Atkins [facility]Y?[facility] 1.2840.114 350.1.13.10 4.2.7.2.686 [id number] 044 [id number] [facility] 2022-08-31 00:00:00 2022-08-31 00:00:00 Refill Florecita Atkins [facility] 1.2840.114 350.1.13.10 4.2.7.2.686 [id number] 044 [id number] [facility] 2022-08-30 00:00:00 2022-08-30 00:00:00 [facility] 1.2.840.114 350.1.13.10 4.2.7.2.686 [id number] 044 [id number] [facility] 2022-08-29 00:00:00 2022-08-29 00:00:00 [facility] 1.2840.114 350.1.13.10 4.2.7.2.686 [id number] 044 [id number] [facility] 2022-08-23 00:00:00 2022-08-23 00:00:00 Refill Tony Feldman [facility] 1.2840.114 350.1.13.10 4.2.7.2.686 [id number] 220 [id number] [facility] 2022-08-20 00:00:00 2022-08-20 00:00:00 Telephone Tony Feldman [facility] 1.2840.114 350.1.13.10 4.2.7.2.686 [id number] 220 [id number] [facility] 2022-08-19 00:00:00 2022-08-19 00:00:00 [facility] 1.2840.114 350.1.13.10 4.2.7.2.686 [id number] 044 [id number] [facility] 2022-08-18 00:00:00 2022-08-18 00:00:00 Ref[facility] 1.2840.114 350.1.13.10 4.2.7.2.686 [id number] 044 [id number] [facility] 2022-08-16 00:00:00 2022-08-16 00:00:00 Telephone Tony Feldman [facility] 1.2840.114 350.1.13.10 4.2.7.2.686 [id number] 220 [id number] [facility] 2022-08-13 00:00:00 2022-08-13 00:00:00 Refill Vincenzo Sanches [facility] 1.2840.114 350.1.13.10 4.2.7.2.686 [id number] 220 [id number] [facility] 2022-08-12 00:00:00 2022-08-12 00:00:00 Refill Vincenzo Sanches [facility] 1.840.114 350.1.13.10 4.2.7.2.686 [id number] 220 [id number] [facility] 2022-08-12 00:00:00 2022-08-12 00:00:00 Telephone Tony Feldman [facility] 1.2840.114 350.1.13.10 4.2.7.2.686 [id number] 220 [id number] [facility] 2022-08-03 00:00:00 2022-08-03 00:00:00 Refill Florecita Atkins [facility] 1.2840.114 350.1.13.10 4.2.7.2.686 [id number] 044 [id number] [facility] 2022-08-03 00:00:00 2022-08-03 00:00:00 Refill Tony Feldman [facility] 1.2840.114 350.1.13.10 4.2.7.2.686 [id number] 220 [id number] [facility] 2022-08-02 10:21:39 2022-08-02 23:59:00 Outpatient R FLORECITA ATKINS [facility] [id number] [facility] 2022-08-02 10:15:00 2022-08-02 10:30:00 Office Visit Florecita Atkins [facility] 1.2.840.114 350.1.13.10 4.2.7.2.686 [id number] 044 [id number] [facility] 2022-08-02 00:00:00 2022-08-02 00:00:00 Orders Only Doctor Unassigned, [facility] 1.2.840.114 350.1.13.10 4.2.7.2.686 [id number] [id number] [facility] 2022-08-02 00:00:00 2022-08-02 00:00:00 Telephone Florecita Atkins [facility] 1.2.840.114 350.1.13.10 4.2.7.2.686 [id number] 044 [id number] [facility] 2022-07-25 00:00:00 2022-07-25 00:00:00 Refill Florecita Atkins [facility] 1.2.840.114 350.1.13.10 4.2.7.2.686 [id number] 044 [id number] [facility] 2022 15:00:00 2022 15:00:00 Outpatient FLORECITA LINCOLN [facility] [id number] [facility] 2022-07-12 13:45:00 2022-07-12 13:45:00 Outpatient FLORECITA LINCOLN [facility] [id number] [facility] 2022-06-27 00:00:00 2022-06-27 00:00:00 Refill Florecita Atkins [facility] J[facility]Y?[facility] 1.2.840.114 350.1.13.10 4.2.7.2.686 [id number] 044 [id number] [facility] 2022-06-03 00:00:00 2022-06-03 00:00:00 RefFlorecita Peace [facility] JAYY?[facility] 1.2.840.114 350.1.13.10 4.2.7.2.686 [id number] 044 [id number] [facility] 2022-06-03 00:00:00 2022-06-03 00:00:00 Telephone Tony Feldman [facility] 1.2.840.114 350.1.13.10 4.2.7.2.686 [id number] 220 [id number] [facility] 2022-06-03 00:00:00 2022-06-03 00:00:00 RefPrincess Rosenthal [facility] 1.2840.114 350.1.13.10 4.2.7.2.686 [id number] 220 [id number] [facility] 2022-05-19 00:00:00 2022-05-19 00:00:00 Telephone Florecita Atkins [facility] 1.2840.114 350.1.13.10 4.2.7.2.686 [id number] 044 [id number] [facility] 2022-05-17 00:00:00 2022-05-17 00:00:00 Refill Florecita Atkins [facility] J[facility]Y?[facility] 1.2.840.114 350.1.13.10 4.2.7.2.686 [id number] 044 [id number] [facility] 2022-05-17 00:00:00 2022-05-17 00:00:00 Orders Only Doctor Unassigned, [facility] 1.2.840.114 350.1.13.10 4.2.7.2.686 [id number] 009 [id number] [facility] 2022-05-15 00:00:00 2022-05-15 00:00:00 Refill Keenandilma [facility] 1.2840.114 350.1.13.10 4.2.7.2.686 [id number] 044 [id number] [facility] 2022-05-07 00:00:00 2022-05-07 00:00:00 Refill Lorainegonzalodilma [facility] 1.2840.114 350.1.13.10 4.2.7.2.686 [id number] 044 [id number] [facility] 2022-05-03 00:00:00 2022-05-03 00:00:00 [facility] 1.2840.114 350.1.13.10 4.2.7.2.686 [id number] 220 [id number] [facility] 2022-05-03 00:00:00 2022-05-03 00:00:00 Orders Only Doctor Unassigned, [facility] 1.2840.114 350.1.13.10 4.2.7.2.686 [id number] 009 [id number] [facility] 2022-04-22 00:00:00 2022-04-22 00:00:00 Telephone Loraineclaudia [facility] 1.2840.114 350.1.13.10 4.2.7.2.686 [id number] 044 [id number] [facility] 2022-04-16 00:00:00 2022-04-16 00:00:00 Telephone Tony Feldman [facility] 1.20.114 350.1.13.10 4.2.7.2.686 [id number] 220 [id number] [facility] 2022-04-12 00:00:00 2022-04-12 00:00:00 Telephone Bernadine Callahan 1.2840.114 350.1.13.10 4.2.7.2.686 [id number] 086 [id number] [facility] 2022-04-06 00:00:00 2022-04-06 00:00:00 Orders Only Doctor Unassigned, [facility] 1.2840.114 350.1.13.10 4.2.7.2.686 [id number] 009 [id number] [facility] 2022-04-05 00:00:00 2022-04-05 00:00:00 Telephone Princess Lizarraga [facility] 1.2.114 350.1.13.10 4.2.7.2.686 [id number] 220 [id number] [facility] 2022-03-31 13:15:00 2022-03-31 13:30:00 Office Visit Florecita Atkins malissa [facility] 1.2.114 350.1.13.10 4.2.7.2.686 [id number] 044 [id number] [facility] 2022-03-31 13:15:00 2022-03-31 13:15:00 Outpatient R FLORECITA ATKINS [facility] [id number] [facility] 2022-03-25 00:00:00 2022-03-25 00:00:00 Telephone Florecita Atkins [facility] J[facility]Y?[facility] 1.284.114 350.1.13.10 4.2.7.2.686 [id number] 044 [id number] [facility] 2022-03-24 00:00:00 2022-03-24 00:00:00 Telephone Florecita Atkins [facility] J[facility]Y?[facility] 1.2.840.114 350.1.13.10 4.2.7.2.686 [id number] 044 [id number] [facility] 2022-03-23 00:00:00 2022-03-23 00:00:00 Telephone Princess Lizarraga [facility] 1.2840.114 350.1.13.10 4.2.7.2.686 [id number] 220 [id number] [facility] 2022-03-19 00:00:00 2022-03-19 00:00:00 Telephone Florecita Atkins [facility] 1.2840.114 350.1.13.10 4.2.7.2.686 [id number] 044 [id number] [facility] 2022-03-17 00:00:00 2022-03-17 00:00:00 Telephone Florecita Atkins [facility] J[facility]Y?[facility] 1.2840.114 350.1.13.10 4.2.7.2.686 [id number] 044 [id number] [facility] 2022-03-17 00:00:00 2022-03-17 00:00:00 Orders Only Doctor Unassigned, [facility] 1.2840.114 350.1.13.10 4.2.7.2.686 [id number] 009 [id number] [facility] 2022-03-15 00:00:00 2022-03-15 00:00:00 Refill Florecita Atkins [facility] JAYY?[facility] 1.2840.114 350.1.13.10 4.2.7.2.686 [id number] 044 [id number] [facility] 2022-03-11 00:00:00 2022-03-11 00:00:00 Orders Only Doctor Unassigned, [facility] 1.2.840.114 350.1.13.10 4.2.7.2.686 [id number] 009 [id number] [facility] 2022-03-10 00:00:00 2022-03-10 00:00:00 Telephone Jennifer [facility] 1.2.840.114 350.1.13.10 4.2.7.2.686 [id number] 044 [id number] [facility] 2022-03-08 00:00:00 2022-03-08 00:00:00 [facility] 1.2.840.114 350.1.13.10 4.2.7.2.686 [id number] 044 [id number] [facility] 2022-03-05 00:00:00 2022-03-05 00:00:00 Refill Jennifer [facility] 1.2.840.114 350.1.13.10 4.2.7.2.686 [id number] 044 [id number] [facility] 2022-03-03 00:00:00 2022-03-03 00:00:00 [facility] 1.2.840.114 350.1.13.10 4.2.7.2.686 [id number] 220 [id number] [facility] 2022-02-26 13:30:00 2022-02-26 14:03:53 Out[facility] [id number] [facility] 2022-02-26 13:30:00 2022-02-26 14:03:53 Office Visit Princess Lizarraga [facility] 1.84114 350.1.13.10 4.2.7.2.686 [id number] 220 [id number] [facility] 2022-02-11 00:00:00 2022-02-11 00:00:00 Outpatient Visit [id number] 2022-02-03 00:00:00 2022-02-03 00:00:00 Refelkin Atkins [facility] 1.84.114 350.1.13.10 4.2.7.2.686 [id number] 044 [id number] [facility] 2022-01-28 00:00:00 2022-01-28 00:00:00 Orders Only Doctor Unassigned, [facility] 1.114 350.1.13.10 4.2.7.2.686 [id number] 009 [id number] [facility] 2022-01-24 00:00:00 2022-01-24 00:00:00 Refelkin Atkins [facility] 1.84114 350.1.13.10 4.2.7.2.686 [id number] 044 [id number] [facility] 2022-01-18 00:00:00 2022-01-18 00:00:[address] [facility] 1.114 350.1.13.10 4.2.7.2.686 [id number] 220 [id number] [facility] 2022-01-17 00:00:00 2022-01-17 00:00:00 Refill Florecita Atkins [facility] J[facility]Y?[facility] 1..840.114 350.1.13.10 4.2.7.2.686 [id number] 044 [id number] [facility] 2022-01-15 14:30:00 2022-01-15 14:30:00 Outpatient PRINCESS MONTIEL [facility] [id number] [facility] 2022-01-14 00:00:00 2022-01-14 00:00:00 Telephone Florecita Atkins [facility] J[facility]Y?[facility] 1.840.114 350.1.13.10 4.2.7.2.686 [id number] 044 [id number] [facility] 2022-01-13 00:00:00 2022-01-13 00:00:00 [facility] 1.840.114 350.1.13.10 4.2.7.2.686 [id number] 044 [id number] [facility] 2022-01-12 15:15:00 2022-01-12 15:17:01 Outpatient R FLORECITA ATKINS [facility] [id number] [facility] 2022-01-12 15:15:00 2022-01-12 15:17:01 Office Visit Florecita Atkins [facility] J[facility]Y?[facility] 1.840.114 350.1.13.10 4.2.7.2.686 [id number] 044 [id number] [facility] 2022-01-12 00:00:00 2022-01-12 00:00:00 Orders Only Doctor Unassigned, [facility] 1.84.114 350.1.13.10 4.2.7.2.686 [id number] 009 [id number] [facility] 2022-01-09 00:00:00 2022-01-09 00:00:00 RefFlorecita Peace [facility] JAYY?[facility] 1.2.840.114 350.1.13.10 4.2.7.2.686 [id number] 044 [id number] [facility] 2022-01-06 00:00:00 2022-01-06 00:00:00 Telephone Joselito [facility] JAYY?[facility] 1..840.114 350.1.13.10 4.2.7.2.686 [id number] 220 [id number] [facility] 2021-12-30 00:00:00 2021-12-30 00:00:00 RefFlorecita Peace [facility] 1..840.114 350.1.13.10 4.2.7.2.686 [id number] 044 [id number] [facility] 2021-12-29 13:30:00 2021-12-29 13:30:00 Outpatient FLORECITA LINCOLN [facility] [id number] [facility] 2021-12-25 00:00:00 2021-12-25 00:00:00 Telephone LorainegonzalodilmaFlorecita [facility] J[facility]Y?[facility] 1..840.114 350.1.13.10 4.2.7.2.686 [id number] 044 [id number] [facility] 2021-12-12 00:00:00 2021-12-12 00:00:00 Bob Florecita Atkins [facility] J[facility]Y?[facility] 1.2.840.114 350.1.13.10 4.2.7.2.686 [id number] 044 [id number] [facility] 2021-11-23 00:00:00 2021-11-23 00:00:00 Telephone Kesireddy, [facility] J[facility]Y?[facility] 1.2.840.114 350.1.13.10 4.2.7.2.686 [id number] 220 [id number] [facility] 2021-11-17 00:00:00 2021-11-17 00:00:00 Telephone Joselito [facility] J[facility]Y?[facility] 1.2.840.114 350.1.13.10 4.2.7.2.686 [id number] 220 [id number] [facility] 2021-11-16 00:00:00 2021-11-16 00:00:00 Telephone Joselito [facility] J[facility]Y?[facility] 1.2.840.114 350.1.13.10 4.2.7.2.686 [id number] 220 [id number] [facility] 2021-11-14 00:00:00 2021-11-14 00:00:00 Refelkin Atkins [facility] 1.2840.114 350.1.13.10 4.2.7.2.686 [id number] 044 [id number] [facility] 2021-11-12 00:00:00 2021-11-12 00:00:00 Orders Only Doctor Unassigned, [facility] 1.2.840.114 350.1.13.10 4.2.7.2.686 [id number] 009 [id number] [facility] 2021-11-01 00:00:00 2021-11-01 00:00:00 Bob Atkins [facility] 1.2840.114 350.1.13.10 4.2.7.2.686 [id number] 082 [id number] [facility] 2021-10-31 00:00:00 2021-10-31 00:00:00 Florecita Montoya [facility] 1.2840.114 350.1.13.10 4.2.7.2.686 [id number] 044 [id number] [facility] 2021-10-29 00:00:00 2021-10-29 00:00:00 Refill Florecita Atkins [facility] 1.2840.114 350.1.13.10 4.2.7.2.686 [id number] 044 [id number] [facility] 2021-10-27 00:00:00 2021-10-27 00:00:00 Refill Florecita Atkins [facility] J[facility]Y?[facility] 1.84.114 350.1.13.10 4.2.7.2.686 [id number] 044 [id number] [facility] 2021-10-22 00:00:00 2021-10-22 00:00:00 Refill Florecita Atkins [facility] J[facility] 1.84.114 350.1.13.10 4.2.7.2.686 [id number] [id number] [facility] 2021-10-21 00:00:00 2021-10-21 00:00:00 Refill Librajanetrob Mod[facility] JAYY?[facility] 1.284.114 350.1.13.10 4.2.7.2.686 [id number] 220 [id number] [facility] 2021-10-19 00:00:00 2021-10-19 00:00:00 Refill Florecita Atkins [facility] JAYY?[facility] 1.284.114 350.1.13.10 4.2.7.2.686 [id number] [id number] [facility] 2021-10-05 14:30:00 2021-10-05 14:30:00 Outpatient Vee YEE [facility] [id number] [facility] 2021-10-05 14:30:00 2021-10-05 14:30:00 Outpatient R JOSELITO [facility] [id number] [facility] 2021-09-28 00:00:00 2021-09-28 00:00:00 Orders Only Doctor Unassigned, [facility] 1.2840.114 350.1.13.10 4.2.7.2.686 [id number] [facility] 2021-09-27 00:00:00 2021-09-27 00:00:00 Refill Joselito [facility] 1.2840.114 350.1.13.10 4.2.7.2.686 [id number] 220 [id number] [facility] 2021-09-21 00:00:00 2021-09-21 00:00:00 Refill Jennifer [facility] 1.2840.114 350.1.13.10 4.2.7.2.686 [id number] [id number] [facility] 2021-09-10 00:00:00 2021-09-10 00:00:00 Orders Only Doctor Unassigned, [facility] 1.2840.114 350.1.13.10 4.2.7.2.686 [id number] [facility] 2021-09-08 00:00:00 2021-09-08 00:00:00 Refill Jennifer [facility] 1.2840.114 350.1.13.10 4.2.7.2.686 [id number] [id number] [facility] 2021-09-08 00:00:00 2021-09-08 00:00:00 [facility] 1.2.840.114 350.1.13.10 4.2.7.2.686 [id number] 220 [id number] [facility] 2021-09-08 00:00:00 2021-09-08 00:00:00 [facility] 1.2840.114 350.1.13.10 4.2.7.2.686 [id number] 220 [id number] [facility] 2021-08-31 00:00:00 2021-08-31 00:00:00 [facility] 1.2840.114 350.1.13.10 4.2.7.2.686 [id number] 220 [id number] [facility] 2021-08-25 00:00:00 2021-08-25 00:00:00 [facility] 1.2840.114 350.1.13.10 4.2.7.2.686 [id number] [id number] [facility] 2021-08-24 00:00:00 2021-08-24 00:00:00 [facility] 1.2840.114 350.1.13.10 4.2.7.2.686 [id number] 044 [id number] [facility] 2021-08-23 00:00:00 2021-08-23 00:00:00 Refill Florecita Atkins [facility] JAYY?[facility] 1.2840.114 350.1.13.10 4.2.7.2.686 [id number] [id number] [facility] 2021-08-18 00:00:00 2021-08-18 00:00:00 Telephone Joselito [facility] JAYY?[facility] 1.114 350.1.13.10 4.2.7.2.686 [id number] 220 [id number] [facility] 2021-08-18 00:00:00 2021-08-18 00:00:00 [facility] 1.114 350.1.13.10 4.2.7.2.686 [id number] 220 [id number] [facility] 2021-08-18 00:00:00 2021-08-18 00:00:00 Orders Only Doctor Unassigned, [facility] 1.114 350.1.13.10 4.2.7.2.686 [id number] [id number] [facility] 2021-08-02 00:00:00 2021-08-02 00:00:00 Florecita Montoya [facility] BUILDING 1.114 350.1.13.10 4.2.7.2.686 [id number] 044 [id number] [facility] 2021-07-30 00:00:00 2021-07-30 00:00:00 RefFlorecita Peace [facility] OFFICE BUILDING ONE .114 350.1.13.10 4.2.7.2.686 [id number] 044 [id number] [facility] 2021-07-29 00:00:00 2021-07-29 00:00:00 [facility] 1.114 350.1.13.10 4.2.7.2.686 [id number] 044 [id number] [facility] 2021-07-29 00:00:00 2021-07-29 00:00:00 [facility]phone [facility] 1.284.114 350.1.13.10 4.2.7.2.686 [id number] 220 [id number] [facility] 2021-07-27 00:00:00 2021-07-27 00:00:00 [facility] BU[facility] 1.284.114 350.1.13.10 4.2.7.2.686 [id number] 220 [id number] [facility] 2021-07-23 00:00:00 2021-07-23 00:00:00 Refill [facility] 1.84.114 350.1.13.10 4.2.7.2.686 [id number] 220 [id number] [facility] 2021-07-22 00:00:00 2021-07-22 00:00:00 Refill [facility] BU[facility] 1.84.114 350.1.13.10 4.2.7.2.686 [id number] 220 [id number] [facility] 2021-07-22 00:00:00 2021-07-22 00:00:00 Refill [facility] BU[facility] 1.84.114 350.1.13.10 4.2.7.2.686 [id number] 220 [id number] [facility] 2021 00:00:00 2021 00:00:00 Telephone [facility] OFF[facility] BUILDING 1.284.114 350.1.13.10 4.2.7.2.686 [id number] 220 [id number] [facility] 2021-07-06 14:00:00 2021-07-06 14:00:00 Outpatient FLORECITA LINCOLN [facility] [id number] [facility] 2021-07-06 00:00:00 2021-07-06 00:00:00 Letter (Out) Doctor Unassigned, [facility] 1.840.114 350.1.13.10 4.2.7.2.686 [id number] 044 [id number] [facility] 2021-07-02 00:00:00 2021-07-02 00:00:00 Florecita Montoya [facility] NAL BUILDING 1..840.114 350.1.13.10 4.2.7.2.686 [id number] 044 [id number] [facility] 2021-06-19 11:30:00 2021-06-19 11:30:00 Outpatient FLORECITA LINCOLN [facility] [id number] [facility] 2021-05-24 00:00:00 2021-05-24 00:00:00 Telephone Javier Dillon [facility] 1.840.114 350.1.13.10 4.2.7.2.686 [id number] [facility] 2021-05-23 13:00:00 2021-05-23 13:32:55 Outpatient R AMIRA BALBUENA [facility] [id number] [facility] 2021-05-23 13:00:00 2021-05-23 13:20:00 Urgent Care Amira Balbuena [facility] BUILD[facility] 1..840.114 350.1.13.10 4.2.7.2.686 [id number] [facility] 2021-05-22 17:00:00 2021-05-22 17:00:00 Outpatient R [facility] [id number] [facility] 2021-05-06 00:00:00 2021-05-06 00:00:00 Florecita Montoya [facility] OFFICE BUILDING ONE 1.2.840.114 350.1.13.10 4.2.7.2.686 [id number] [facility] 2021-05-05 11:30:00 2021-05-05 11:30:00 Outpatient R [facility]INNA [facility] [id number] [facility] 2021-05-04 00:00:00 2021-05-04 00:00:00 Telephone Princess Lizarraga [facility] BUILDING 1.2.840.114 350.1.13.10 4.2.7.2.686 [id number] 220 [id number] [facility] 2021-04-03 00:00:00 2021-04-03 00:00:00 Telephone Joselito [facility] BU[facility] 1.2.840.114 350.1.13.10 4.2.7.2.686 [id number] 220 [id number] [facility] 2021-03-16 13:00:00 2021-03-16 14:14:20 [facility] [id number] [facility] 2021-03-16 12:59:42 2021-03-16 13:29:42 Office Visit Joselito [facility] 1.2.840.114 350.1.13.10 4.2.7.2.686 [id number] 220 [id number] [facility] 2021-03-16 13:00:00 2021-03-16 13:00:00 Out[facility] [id number] [facility] 2021-03-16 00:00:00 2021-03-16 00:00:00 Orders Only Doctor Unassigned, [facility] 1.2.840.114 350.1.13.10 4.2.7.2.686 [id number] [id number] [facility] 2021-03-10 00:00:00 2021-03-10 00:00:[address] [facility] BUILDING 1.2840.114 350.1.13.10 4.2.7.2.686 [id number] 220 [id number] [facility] 2021-03-05 00:00:00 2021-03-05 00:00:00 Telephone Leonardowilian [facility] JAYY?[facility] BUILDING 1.2840.114 350.1.13.10 4.2.7.2.686 [id number] 220 [id number] [facility] 2021-03-04 00:00:00 2021-03-04 00:00:[address] [facility] BUILDING 1.2840.114 350.1.13.10 4.2.7.2.686 [id number] 220 [id number] [facility] 2021-02-16 15:21:19 2021-02-16 15:36:19 Advertising Photographer Visit Lab, Renzo Smythjanetrob [facility] Jayy?[facility] Office Building 1.2840.114 350.1.13.10 4.2.7.2.686 [id number] [facility] 2021-02-16 14:17:09 2021-02-16 15:18:07 Office Visit Leonardowilian [facility] Jayy?[facility] Office Building 1.2840.114 350.1.13.10 4.2.7.2.686 [id number] 220 [id number] [facility] 2021-02-16 14:00:00 2021-02-16 15:18:07 Outpatient R MODESTO YEE [facility] [id number] [facility] 2021-02-16 00:00:00 2021-02-16 00:00:00 Orders Only Doctor Unassigned, [facility] 1.0.114 350.1.13.10 4.2.7.2.686 [id number] [id number] [facility] 2021-02-12 00:00:00 2021-02-12 00:00:00 Telephone Joselito [facility] 1..114 350.1.13.10 4.2.7.2.686 [id number] 220 [id number] [facility] 2021-02-09 00:00:00 2021-02-09 00:00:00 Refill Joselito [facility] 1..114 350.1.13.10 4.2.7.2.686 [id number] 220 [id number] [facility] 2021-02-06 00:00:00 2021-02-06 00:00:00 Telephone Joselito [facility] 1..114 350.1.13.10 4.2.7.2.686 [id number] 220 [id number] [facility] 2021-01-30 00:00:00 2021-01-30 00:00:00 Telephone Florecita Atkins [facility] Jayy?[facility] Office Building 1.114 350.1.13.10 4.2.7.2.686 [id number] 044 [id number] [facility] 2021-01-30 00:00:00 2021-01-30 00:00:00 Orders Only Doctor Unassigned, [facility] 1..114 350.1.13.10 4.2.7.2.686 [id number] [id number] [facility] 2021-01-28 00:00:00 2021-01-28 00:00:00 Telephone MartinezRosendoarthur Sudha [facility] 1..114 350.1.13.10 4.2.7.2.686 [id number] [id number] [facility] 2021-01-26 09:30:00 2021-01-26 09:30:00 Outpatient R [facility]SEL[facility]O [facility] [id number] [facility] 2021-01-26 09:30:00 2021-01-26 09:30:00 Outpatient R JOSELITO [facility] [id number] [facility] 2021-01-26 09:30:00 2021-01-26 09:30:00 Outpatient R JOSELITO [facility] [id number] [facility] 2021-01-23 00:00:00 2021-01-23 00:00:00 Telephone Florecita Atkins [facility] Caitlyn Hope?[facility] Building 1..114 350.1.13.10 4.2.7.2.686 [id number] 044 [id number] [facility] 2021-01-19 00:00:00 2021-01-19 00:00:00 Telephone Joselito [facility] M[facility]ISPEC [facility] 1..114 350.1.13.10 4.2.7.2.686 [id number] 220 [id number] [facility] 2021-01-15 00:00:00 2021-01-15 00:00:00 [facility] 1..114 350.1.13.10 4.2.7.2.686 [id number] 220 [id number] [facility] 2020-12-24 08:04:37 2020-12-24 10:25:17 Office Visit KeenanFlorecita bermeo [facility] Medical Office Building 1.2.840.114 350.1.13.10 4.2.7.2.686 [id number] 044 [id number] [facility] 2020-12-24 08:00:00 2020-12-24 08:00:00 Outpatient R FLORECITA ATKINS [facility] [id number] [facility] 2020-12-17 00:00:00 2020-12-17 00:00:00 Refill Jennifer [facility] Office Building 1.2.840.114 350.1.13.10 4.2.7.2.686 [id number] [id number] [facility] 2020-12-17 00:00:00 2020-12-17 00:00:00 Telephone [place] Yee [facility] Office Building 1.2.840.114 350.1.13.10 4.2.7.2.686 [id number] 220 [id number] [facility] 2020-12-16 13:00:00 2020-12-16 14:14:34 Outpatient R FLORECITA ATKINS [facility] [id number] [facility] 2020-12-16 11:36:26 2020-12-16 11:51:26 Telemedici ne Visit Jennifer [facility] Office Building 1.2.840.114 350.1.13.10 4.2.7.2.686 [id number] 044 [id number] [facility] 2020-12-16 00:00:00 2020-12-16 00:00:00 Refill Florecita [facility] 1.840.114 350.1.13.10 4.2.7.2.686 [id number] 044 [id number] [facility] 2020-12-12 00:00:00 2020-12-12 00:00:00 [facility] Office Building 1.840.114 350.1.13.10 4.2.7.2.686 [id number] 220 [id number] [facility] 2020-12-12 00:00:00 2020-12-12 00:00:00 Orders Only Doctor Unassigned, [facility] 1.84.114 350.1.13.10 4.2.7.2.686 [id number] [id number] [facility] 2020-12-08 13:15:00 2020-12-08 13:15:00 Outpatient FLORECITA LINCOLN [facility] [id number] [facility] 2020-12-08 13:15:00 2020-12-08 13:15:00 Outpatient FLORECITA LINCOLN [facility] [id number] [facility] 2020-11-24 13:00:00 2020-11-24 13:00:00 Outpatient Vee YEE [facility] [id number] [facility] 2020-11-24 13:00:00 2020-11-24 13:00:00 [facility] [id number] [facility] 2020-10-03 00:00:00 2020-10-03 00:00:00 Florecita Montoya [facility] Office Building One 1.840.114 350.1.13.10 4.2.7.2.686 [id number] [id number] 2020-09-24 00:00:00 2020-09-24 00:00:00 Orders Only Doctor Unassigned, [facility] 1.2840.114 350.1.13.10 4.2.7.2.686 [id number] [id number] 2020-09-17 00:00:00 2020-09-17 00:00:00 Refill Jennifer [facility] Office Building One 1.840.114 350.1.13.10 4.2.7.2.686 [id number] 044 [id number] 2020-09-14 00:00:00 2020-09-14 00:00:00 Refill Jennifer [facility] Building 1.84.114 350.1.13.10 4.2.7.2.686 [id number] 044 [id number] 2020-09-04 09:00:00 2020-09-04 09:00:00 Outpatient FLORECITA LINCOLN [facility] [id number] [facility] 2020-09-04 07:01:14 2020-09-04 07:16:14 Telemedici ne Visit Jennifer [facility] Office Building One 1.84.114 350.1.13.10 4.2.7.2.686 [id number] 2020-08-26 11:15:00 2020-08-26 11:15:00 Outpatient FLORECITA LINCOLN [facility] [id number] [facility] 2020-08-26 11:15:00 2020-08-26 11:15:00 Outpatient FLORECITA LINCOLN [facility] [id number] [facility] 2020-08-14 00:00:00 2020-08-14 00:00:00 Telephone Team, [facility] Health Maintenance [facility] 1.284.114 350.1.13.10 4.2.7.2.686 [id number] 2020-07-28 12:00:00 2020-07-28 12:00:00 Outpatient R MODESTO YEE [facility] [id number] [facility] 2020-07-15 00:00:00 2020-07-15 00:00:00 Florecita Montoya [facility] Office Building One 1.2.840.114 350.1.13.10 4.2.7.2.686 [id number] [id number] 2020-07-15 00:00:00 2020-07-15 00:00:00 Telephone Joselito [facility] Building 1.840.114 350.1.13.10 4.2.7.2.686 [id number] 220 [id number] 2020-07-08 14:00:00 2020-07-08 14:00:00 Outpatient SOFÍA WYLIE [facility] [id number] [facility] 2020-06-30 15:00:00 2020-06-30 15:00:00 Outpatient R JOSELITO [facility] [id number] [facility] 2020-06-17 00:00:00 2020-06-17 00:00:00 Refill Florecita Atkins [facility] Building 1.2.840.114 350.1.13.10 4.2.7.2.686 [id number] [id number] 2020-06-03 00:00:00 2020-06-03 00:00:00 Orders Only Doctor Unassigned, [facility] 1.2840.114 350.1.13.10 4.2.7.2.686 [id number] [id number] 2020-05-23 00:00:00 2020-05-23 00:00:00 Bob Atkins [facility] Building 1.2.840.114 350.1.13.10 4.2.7.2.686 [id number] 044 [id number] 2020-05-23 00:00:00 2020-05-23 00:00:[address] [facility] 1.840.114 350.1.13.10 4.2.7.2.686 [id number] 220 [id number] 2020-05-22 09:00:00 2020-05-22 09:00:00 Outpatient FLORECITA LINCOLN [facility] [id number] [facility] 2020-05-22 07:35:33 2020-05-22 07:50:33 Telemedici ne Visit Jennifer [facility] Office [facility] One 1..840.114 350.1.13.10 4.2.7.2.686 [id number] 044 [id number] 2020-05-21 00:00:00 2020-05-21 00:00:00 Telephone Florecita Atkins [facility] Office [facility] One 1..840.114 350.1.13.10 4.2.7.2.686 [id number] 044 [id number] 2020-05-20 09:15:00 2020-05-20 09:15:00 Outpatient FLORECITA LINCOLN [facility] [id number] [facility] 2020-05-20 00:00:00 2020-05-20 00:00:00 [facility]..840.114 350.1.13.10 4.2.7.2.686 [id number] 220 [id number] 2020-05-19 00:00:00 2020-05-19 00:00:00 Orders Only Doctor Unassigned, [facility] 1..840.114 350.1.13.10 4.2.7.2.686 [id number] [id number] 2020-05-15 00:00:00 2020-05-15 00:00:00 Telephone Jennifer [facility] Office Building One 1..840.114 350.1.13.10 4.2.7.2.686 [id number] 044 [id number] 2020-05-13 00:00:00 2020-05-13 00:00:00 Telephone Florecita Atkins [facility] Office Building One 1..840.114 350.1.13.10 4.2.7.2.686 [id number] 044 [id number] 2020-05-09 00:00:00 2020-05-09 00:00:00 Telephone Jennifer [facility] Office Building One 1.840.114 350.1.13.10 4.2.7.2.686 [id number] 044 [id number] 2020-05-07 08:30:00 2020-05-07 08:30:00 Outpatient TEA MACKEY [facility] [id number] [facility] 2020-05-05 00:00:00 2020-05-05 00:00:00 Telephone Joselito [facility] 1..840.114 350.1.13.10 4.2.7.2.686 [id number] 220 [id number] 2020-04-14 00:00:00 2020-04-14 00:00:00 Telephone Joselito [facility] 1..840.114 350.1.13.10 4.2.7.2.686 [id number] 220 [id number] 2020-04-14 00:00:00 2020-04-14 00:00:00 Refill Joselito [facility] 1.2.840.114 350.1.13.10 4.2.7.2.686 [id number] 220 [id number] 2020-04-11 00:00:00 2020-04-11 00:00:00 Orders Only Doctor Unassigned, [facility] 1.2.840.114 350.1.13.10 4.2.7.2.686 [id number] [id number] 2020-04-09 00:00:00 2020-04-09 00:00:00 [facility] 1.2.840.114 350.1.13.10 4.2.7.2.686 [id number] 220 [id number] 2020-04-08 00:00:00 2020-04-08 00:00:00 Telephone Jennifer Florecita Jagmalissa [facility] Office Building One 1.2.840.114 350.1.13.10 4.2.7.2.686 [id number] 044 [id number] 2020-04-01 00:00:00 2020-04-01 00:00:00 Refill Joselito [facility] Building 1.2.840.114 350.1.13.10 4.2.7.2.686 [id number] 220 [id number] 2020-03-31 14:30:00 2020-03-31 14:30:00 Outpatient R JOSELITO [facility] [id number] [facility] 2020-03-31 13:18:18 2020-03-31 14:18:48 Office Visit Joselito [facility] Building 1.2.840.114 350.1.13.10 4.2.7.2.686 [id number] 2020-03-31 00:00:00 2020-03-31 00:00:00 Orders Only Doctor Unassigned, [facility] 1.2.840.114 350.1.13.10 4.2.7.2.686 [id number] [id number] 2020-02-20 14:15:00 2020-02-20 14:15:00 [facility] [id number] 2020-02-14 08:00:2020-02-14 08:00:00 Outpatient FLORECITA LINCOLN [facility] [id number] [facility] 2020-02-11 13:00:00 2020-02-11 13:00:00 Outpatient CLARISA DAVIESENA [facility] [id number] [facility] 2020-01-31 09:45:00 2020-01-31 09:45:00 Outpatient FLORECITA LINCOLN [facility] [id number] [facility] 2020-01-02 13:45:00 2020-01-02 13:45:00 Outpatient FLORECITA LINCOLN [facility] [id number] [facility] 2020-01-01 11:00:00 2020-01-01 11:00:00 Outpatient FLORECITA LINCOLN [facility] [id number] [facility] 2019-12-11 10:20:00 2019-12-11 10:20:00 Outpatient Vee [facility] [id number] [facility] 2019-10-08 11:00:00 2019-10-08 11:00:00 Outpatient Vee YEE MODESTO [facility] [id number] [facility] 2019-10-02 11:15:00 2019-10-02 11:15:00 Outpatient FLORECITA LINCOLN [facility] [id number] [facility] 2019-09-10 15:30:00 2019-09-10 15:30:00 [facility] [id number] [facility] 2019-09-10 12:30:00 2019-09-10 12:30:00 [facility] [id number] [facility] 2019-08-28 16:00:00 2019-08-28 16:00:00 Outpatient FLORECITA LINCOLN [facility] [id number] [facility] 2019-08-27 09:05:00 2019-08-27 09:05:00 Outpatient ROSALINDA COOPER [facility] [id number] [facility] 2019-06-11 14:45:00 2019-06-11 14:45:00 Outpatient MODESTO DAVIES [facility] [id number] [facility] 2018-05-03 10:54:00 2018-05-03 10:54:00 Outpatient [facility] [id number] [facility] Results Test Description Test Time Test Comments Results Result Co mments Source [facility] H[facility] A1C [id number] 20:18:00* Test Item Value Reference Range Interpretation Comme nts POCT HBA1C (test code = 4548-4) 9.1 % 4-6 A Lab Interpretation (test cod e = 24891-1) Abnormal [facility], THIRD [id number] 04:16:21* Test Item Value Reference Range Interpretation Comme nts TSH, THIRD GENERATION (test code = 2821) <0.010 UIU/ML 0.400-4.100 L LIPID [id number] 03:38:28* Test Item Value Reference Range Interpretation Comme nts CHOLESTEROL (test code = 2210) 183 MG/DL <200 TRIGLYCERIDES (test code = 2232) 328 MG/DL <150 H HDL CHOLESTEROL (test code = 2220) 47 MG/DL >39 CALC LDL CHOL (test code = 2237) 92 MG/DL <100 NOTE: CALCULATED LDL IS BASED ON RICARDO-COLLINS METHOD WHICHINCLUDES ADJUSTABLE TRIGLYCERIDE:VLDL CHOLESTEROL RATIO.THIS FACTOR VARIES BY MEASURED TRIGLYCERIDE AND NON-HDLCHOLESTEROL CONCENTRATIONS WITH INCREASED CALCULATED LDL SEENIN HIGHER TRIGLYCERIDE OR LOWER NON-HDL SPECIMENS. FOR MOREINFORMATION, SEE CLIENT ANNOUNCEMENT AT [email or web address] RISK RATIO LDL/HDL (test code = 2238) 1.96 RATIO <3.22 COMPREHENSIVE METABOLIC [id number] 03:38:28* Test Item Value Reference Range Interpretation Comme nts GLUCOSE (test code = 2217) 164 MG/DL 70-99 H BUN (test code = 2208) 10 MG/DL 6-20 CREATININE (test code = 2214) 0.77 MG/DL 0.60-1.30 eGFR (2020 CKD-EPI) (test code = 67198) 93 ML/MIN/1.73 >60 CALC BUN/CREAT (test code = 2235) 13 RATIO 6-28 SODIUM (test code = 2231) 142 MEQ/L 133-146 POTASSIUM (test code = 2228) 4.3 MEQ/L 3.5-5.4 CHLORIDE (test code = 2215) 101 MEQ/L 95-107 CARBON DIOXIDE (test code = 2206) 25 MEQ/L 19-31 CALCIUM (test code = 2209) 9.7 MG/DL 8.5-10.5 PROTEIN, TOTAL (test code = 222) 6.9 G/DL 6.1-8.3 ALBUMIN (test code = 220) 4.0 G/DL 3.5-5.2 CALC GLOBULIN (test code = 2240) 2.9 G/DL 1.9-3.7 CALC A/G RATIO (test code = 2234) 1.4 RATIO 1.0-2.6 BILIRUBIN, TOTAL (test code = 2207) <0.2 MG/DL See_Comment [Automated me ssage] The system which generated this result transmitted reference range: <=1.2. The reference range was not used to interpret this result as normal/abnormal. ALKALINE PHOSPHATASE (test code = 2204) 133 U/L 40-132 H AST (test code = 2218) 19 U/L 9-40 ALT (test code = 2219) 24 U/L 5-40 UNLESS OTHERWISE INDICATED, ALL TESTING PERFORMED [facility] [address] [place] [address] COMPENSATION COORDINATOR: SHIRA RESENDIZ M.D. CLIA NUMBER [id number] [facility]. [id number] LIPID [id number] 00:00:00* Test Item Value Reference Range Interpretation Comme nts CHOLESTEROL (test code = 2210) 183 MG/DL TRIGLYCERIDES (test code = 2232) 328 MG/DL HDL CHOLESTEROL (test code = 2220) 47 MG/DL CALC LDL CHOL (test code = 2237) 92 MG/DL RISK RATIO LDL/HDL (test cod e = 2238) 1.96 RATIO LIPID [id number] 00:00:00* Test Item Value Reference Range Interpretation Comme nts CHOLESTEROL (test code = 2210) 183 MG/DL TRIGLYCERIDES (test code = 2232) 328 MG/DL HDL CHOLESTEROL (test code = 2220) 47 MG/DL CALC LDL CHOL (test code = 2237) 92 MG/DL RISK RATIO LDL/HDL (test cod e = 2238) 1.96 RATIO COMPREHENSIVE METABOLIC [id number] 00:00:00* Test Item Value Reference Range Interpretation Comme nts GLUCOSE (test code = 2217) 164 MG/DL BUN (test code = 2208) 10 MG/DL CREATININE (test code = 2214) 0.77 MG/DL eGFR (2020 CKD-EPI) (test co de = 30053) 93 ML/MIN/1.73 CALC BUN/CREAT (test code = 2235) 13 RATIO SODIUM (test code = 2231) 142 MEQ/L POTASSIUM (test code = 2228) 4.3 MEQ/L CHLORIDE (test code = 2215) 101 MEQ/L CARBON DIOXIDE (test code = 2206) 25 MEQ/L CALCIUM (test code = 2209) 9.7 MG/DL PROTEIN, TOTAL (test code = 2229) 6.9 G/DL ALBUMIN (test code = 2201) 4.0 G/DL CALC GLOBULIN (test code = 2240) 2.9 G/DL CALC A/G RATIO (test code = 2234) 1.4 RATIO BILIRUBIN, TOTAL (test code = 2207) <0.2 MG/DL ALKALINE PHOSPHATASE (test code = 2204) 133 U/L AST (test code = 2218) 19 U/L ALT (test code = 2219) 24 U/L COMPREHENSIVE METABOLIC [id number] 00:00:00* Test Item Value Reference Range Interpretation Comme nts GLUCOSE (test code = 2217) 164 MG/DL BUN (test code = 2208) 10 MG/DL CREATININE (test code = 2214) 0.77 MG/DL eGFR (2020 CKD-EPI) (test co de = 29366) 93 ML/MIN/1.73 CALC BUN/CREAT (test code = 2235) 13 RATIO SODIUM (test code = 2231) 142 MEQ/L POTASSIUM (test code = 2228) 4.3 MEQ/L CHLORIDE (test code = 2215) 101 MEQ/L CARBON DIOXIDE (test code = 2206) 25 MEQ/L CALCIUM (test code = 2209) 9.7 MG/DL PROTEIN, TOTAL (test code = 2229) 6.9 G/DL ALBUMIN (test code = 2201) 4.0 G/DL CALC GLOBULIN (test code = 2240) 2.9 G/DL CALC A/G RATIO (test code = 2234) 1.4 RATIO BILIRUBIN, TOTAL (test code = 2207) <0.2 MG/DL ALKALINE PHOSPHATASE (test code = 2204) 133 U/L AST (test code = 2218) 19 U/L ALT (test code = 2219) 24 U/L [id number] 00:00:00* Test Item Value Reference Range Interpretation Comme nts TSH, THIRD GENERATION (test code = 2821) <0.010 UIU/ML [id number] 00:00:00* Test Item Value Reference Range Interpretation Comme nts TSH, THIRD GENERATION (test code = 2821) <0.010 UIU/ML [id number] 00:00:00* Test Item Value Reference Range Interpretation Comme nts TSH, THIRD GENERATION (test code = 2821) <0.010 UIU/ML HEMOGLOBIN [id number] 03:17:10* Test Item Value Reference Range Interpretation Comme nts HEMOGLOBIN A1c (test code = 80672) 10.6 % 4.2-5.6 H [employer] GUIDELINES FOR HGB A1C: PREDIABETES/INCREASED RISK . . . . . . . 5.7-6.4% DIAGNOSIS OF DIABETES . . . . . . . . . >=6.5% WITH CONFIRMATION OR APPROPRIATE SYMPTOMS NOTE: ASSAY MAY BE AFFECTED BY HEMOGLOBINOPATHIES (SICKLE CELL ANEMIA, S-C DISEASE, OTHERS) OR ARTIFICIALLY LOWERED BY DECREASED RED CELL SURVIVAL (HEMOLYTIC ANEMIAS, BLOOD LOSS, ETC.). CONSIDER ALTERNATE TESTING OR LABORATORY CONSULTATION. HEMOGLOBIN [id number] 00:00:00* Test Item Value Reference Range Interpretation Comme nts HEMOGLOBIN A1c (test code = 24592) 10.6 % HEMOGLOBIN [id number] 00:00:00* Test Item Value Reference Range Interpretation Comme nts HEMOGLOBIN A1c (test code = 84384) 10.6 % HEMOGLOBIN [id number] 00:00:00* Test Item Value Reference Range Interpretation Comme nts HEMOGLOBIN A1c (test code = 66335) 10.6 % HCV RNA, PCR QUANT [REFLEX]2018-06-05 00:00:00* Test Item Value Reference Range Interpretation Comme nts HCV RNA, PCR QUANT (test code = 4571) NOT DETEC IU/ML HCV VIRAL LOG (test code = 30567) NOT DETEC LOGIU/ML HCV RNA, PCR QUANT [REFLEX]2018-06-05 00:00:00* Test Item Value Reference Range Interpretation Comme nts HCV RNA, PCR QUANT (test code = 4571) NOT DETEC IU/ML HCV VIRAL LOG (test code = 11502) NOT DETEC LOGIU/ML HCV RNA, PCR QUANT [REFLEX]2018-06-05 00:00:00* Test Item Value Reference Range Interpretation Comme nts HCV RNA, PCR QUANT (test code = 4571) NOT DETEC IU/ML HCV VIRAL LOG (test code = 20914) NOT DETEC LOGIU/ML CBC W/AUTO [id number] 00:00:00* Test Item Value Reference Range Interpretation Comme nts WBC (test code = 1001) 5.1 K/UL [...] COMMENTS (test code = 1016) (NOTE) HEMOGLOBIN [id number] 00:00:00* Test Item Value Reference Range Interpretation Comme nts HEMOGLOBIN A1c (test code = 95305) 10.0 % HEMOGLOBIN [id number] 00:00:00* Test Item Value Reference Range Interpretation Comme nts HEMOGLOBIN A1c (test code = 31299) 10.0 % HEMOGLOBIN [id number] 00:00:00* Test Item Value Reference Range Interpretation Comme nts HEMOGLOBIN A1c (test code = 76376) 10.0 % COMPREHENSIVE METABOLIC [id number] 00:00:00* Test Item Value Reference Range Interpretation Comme nts GLUCOSE (test code = 2217) 580 MG/DL BUN (test code = 2208) 16 MG/DL CREATININE (test code = 2214) 0.91 MG/DL eGFR AMER. (test cod e = 79344) 86 ML/MIN/1.73 eGFR NON- AMER. (test code = 24451) 75 ML/MIN/1.73 CALC BUN/CREAT (test code = 2235) 18 RATIO SODIUM (test code = 2231) 130 MEQ/L POTASSIUM (test code = 2228) 4.9 MEQ/L CHLORIDE (test code = 2215) 95 MEQ/L CARBON DIOXIDE (test code = 2206) 21 MEQ/L CALCIUM (test code = 2209) 9.6 MG/DL PROTEIN, TOTAL (test code = 2229) 7.5 G/DL ALBUMIN (test code = 2201) 4.4 G/DL CALC GLOBULIN (test code = 2240) 3.1 G/DL CALC A/G RATIO (test code = 2234) 1.4 RATIO BILIRUBIN, TOTAL (test code = 2207) <0.2 MG/DL ALKALINE PHOSPHATASE (test code = 2204) 110 U/L AST (test code = 2218) 16 U/L ALT (test code = 2219) 15 U/L COMPREHENSIVE METABOLIC [id number] 00:00:00* Test Item Value Reference Range Interpretation Comme nts GLUCOSE (test code = 2217) 580 MG/DL BUN (test code = 2208) 16 MG/DL CREATININE (test code = 2214) 0.91 MG/DL eGFR AMER. (test cod e = 14243) 86 ML/MIN/1.73 eGFR NON- AMER. (test code = 37581) 75 ML/MIN/1.73 CALC BUN/CREAT (test code = 2235) 18 RATIO SODIUM (test code = 2231) 130 MEQ/L POTASSIUM (test code = 2228) 4.9 MEQ/L CHLORIDE (test code = 2215) 95 MEQ/L CARBON DIOXIDE (test code = 2206) 21 MEQ/L CALCIUM (test code = 2209) 9.6 MG/DL PROTEIN, TOTAL (test code = 2229) 7.5 G/DL ALBUMIN (test code = 2201) 4.4 G/DL CALC GLOBULIN (test code = 2240) 3.1 G/DL CALC A/G RATIO (test code = 2234) 1.4 RATIO BILIRUBIN, TOTAL (test code = 2207) <0.2 MG/DL ALKALINE PHOSPHATASE (test code = 2204) 110 U/L AST (test code = 2218) 16 U/L ALT (test code = 2219) 15 U/L [id number] 00:00:00* Test Item Value Reference Range Interpretation Comme nts TSH, THIRD GENERATION (test code = 2821) <0.010 UIU/ML [id number] 00:00:00* Test Item Value Reference Range Interpretation Comme nts TSH, THIRD GENERATION (test code = 2821) <0.010 UIU/ML [id number] 00:00:00* Test Item Value Reference Range Interpretation Comme nts TSH, THIRD GENERATION (test code = 2821) <0.010 UIU/ML URINALYSIS W/REFLEX [id number] 00:00:00* Test Item Value Reference Range Interpretation Comme nts COLOR (test code = 1501) YELLOW APPEARANCE (test code = 1502) CLOUDY SPECIFIC GRAVITY (test code = 1503) 1.028 LEUKOCYTE ESTERASE (test cod e = 1504) NEGATIVE NITRITE (test code = 1505) NEGATIVE pH (test code = 1506) 6.0 PROTEIN (test code = 1507) NEGATIVE GLUCOSE (test code = 1508) 3+ KETONES (test code = 1509) NEGATIVE UROBILINOGEN (test code = 1510) <2.0 MG/DL BILIRUBIN (test code = 1511) NEGATIVE OCCULT BLOOD (test code = 1512) NEGATIVE URINALYSIS W/REFLEX [id number] 00:00:00* Test Item Value Reference Range Interpretation Comme nts COLOR (test code = 1501) YELLOW APPEARANCE (test code = 1502) CLOUDY SPECIFIC GRAVITY (test code = 1503) 1.028 LEUKOCYTE ESTERASE (test cod e = 1504) NEGATIVE NITRITE (test code = 1505) NEGATIVE pH (test code = 1506) 6.0 PROTEIN (test code = 1507) NEGATIVE GLUCOSE (test code = 1508) 3+ KETONES (test code = 1509) NEGATIVE UROBILINOGEN (test code = 1510) <2.0 MG/DL BILIRUBIN (test code = 1511) NEGATIVE OCCULT BLOOD (test code = 1512) NEGATIVE MICROALBUMIN/CREATININE, RANDOM AND [id number] 00:00:00* Test Item Value Reference Range Interpretation Comme nts CREATININE, URINE, CONC. (te st code = 207) 24.6 MG/DL ALBUMIN, URINE, RANDOM (test code = 56567) 0.4 MG/DL CALC ALBUMIN/CREAT, RND (mónica t code = 84520) 16 MG/G MICROALBUMIN/CREATININE, RANDOM AND [id number] 00:00:00* Test Item Value Reference Range Interpretation Comme nts CREATININE, URINE, CONC. (te st code = 207) 24.6 MG/DL ALBUMIN, URINE, RANDOM (test code = 06325) 0.4 MG/DL CALC ALBUMIN/CREAT, RND (mónica t code = 74808) 16 MG/G HEPATITIS PROFILE (A,B,C)2018-06-02 00:00:00* Test Item Value Reference Range Interpretation Comme nts HEPATITIS A TOTAL AB (test c ode = 2725) REACTIVE HEPATITIS B SURF AG (test co de = 2739) NON-REACTIVE HEP B CORE TOTAL AB (test co de = 2729) NON-REACTIVE HEPATITIS B SURFACE AB (test code = 2737) NON-REACTIVE HEPATITIS C ANTIBODY (test c ode = 4675) REACTIVE HCV INDEX (test code = 80206) 10.17 INTERPRETATION HEPATITIS A: (test code = 2552) (NOTE) INTERPRETATION HEPATITIS B: (test code = 52317) (NOTE) INTERPRETATION HEPATITIS C: (test code = 50799) (NOTE) HEPATITIS PROFILE (A,B,C)2018-06-02 00:00:00* Test Item Value Reference Range Interpretation Comme nts HEPATITIS A TOTAL AB (test c ode = 2725) REACTIVE HEPATITIS B SURF AG (test co de = 2739) NON-REACTIVE HEP B CORE TOTAL AB (test co de = 2729) NON-REACTIVE HEPATITIS B SURFACE AB (test code = 2737) NON-REACTIVE HEPATITIS C ANTIBODY (test c ode = 4675) REACTIVE HCV INDEX (test code = 37239) 10.17 INTERPRETATION HEPATITIS A: (test code = 2552) (NOTE) INTERPRETATION HEPATITIS B: (test code = 97172) (NOTE) INTERPRETATION HEPATITIS C: (test code = 63700) (NOTE) HIV AB/AG COMBO RFLX [id number] 00:00:00* Test Item Value Reference Range Interpretation Comme nts HIV 1/2 4TH GEN, RFLX CONF ( test code = 3514) NON-REACTIVE HIV AB/AG COMBO RFLX [id number] 00:00:00* Test Item Value Reference Range Interpretation Comme nts HIV 1/2 4TH GEN, RFLX CONF ( test code = 3514) NON-REACTIVE HEPATITIS C REFLEX [id number] 00:00:00* Test Item Value Reference Range Interpretation Comme nts HEPATITIS C ANTIBODY (test c ode = 4675) REACTIVE HCV INDEX (test code = 38654) 10.17 HEPATITIS C REFLEX [id number] 00:00:00* Test Item Value Reference Range Interpretation Comme nts HEPATITIS C ANTIBODY (test c ode = 4675) REACTIVE HCV INDEX (test code = 56595) 10.17 HEPATITIS A IgM [REFLEX]2018-06-02 00:00:00* Test Item Value Reference Range Interpretation Comme nts HEPATITIS A IgM (test code = 2728) NON-REACTIVE CBC W/AUTO [id number] 00:00:00* Test Item Value Reference Range Interpretation Comme nts WBC (test code = 1001) 5.1 K/UL [...] (test code = 1016) (NOTE) CBC W/AUTO [id number] 00:00:00* Test Item Value Reference Range Interpretation Comme nts WBC (test code = 1001) 5.1 K/UL [...] K/UL COMMENTS (test code = 1016) (NOTE) Notes Date/Time Note Provider Source 2023-07-29 07:20:13 86Ovv2qUEqhVWzn31+KcB175gWzSKnkfrqb hgzjj7NbpdpEV7ZJsSbgd4h6Eedpj0803-2 07:20:13 Last Refilled: METOCLOPRAMIDE HCL 10 mg azuclq04 rlakyo615/31/2023--NoSig: TAKE 1 TABLET BY MOUTH THREE TIMES A DAYSent to pharmacy as: metoclopramide 10 mg tablet (REGLAN)Class: eRXOrder: [id number]/Time Signed: 02/22/2023 10:59E-Prescribing Status: Receipt confirmed by pharmacy (02/22/2023 10:59 AM CDT)Recent VisitsDate Type Provider Dept07/20/23 Office Visit Florecita Atkins MD [facility]05/04/23 Office Visit Florecita Atkins MD [facility] Med08/02/22 Office Visit Florecita Atkins MD [facility] Med03/31/22 Office Visit Florecita Atkins MD [facility] MedShowing recent visits within past 540 days with a meds authorizing provider and meeting all other requirementsFuture AppointmentsNo visits were found meeting these conditions.Showing future appointments within next 150 days with a meds authorizing provider and meeting all other requirements 81467-0Vwuuwlcsb encounter MdwvLL1038-73-68U76:21:13Telephone encounter NoteTXT1.2.840.381554.1.13.104.2.7. 2.925631|[id number] for patient phwz72470-1LwpbQGZSOHTDLWBQuutnxpmw C-CDA narrative [id number] Myers[address] Os[id number] 6KAUSUWYOBYIYEXAFPOWZDU6041-39-79I0 7:21:131.2.840.225953.1.72.3.15|1.2 .840.742971.1.13.104.2.7.2.727879_2 [id number] Aracelis Anguiano [facility] 2023-06-06 09:35:02 ZCylHkp6L6dKWk4o00tvCOU14c4jyMpJMS1 Uf3oguYDn/ZpOomkjtfn6pzmJ9Lgq1647-8 09:35:02 JUAN 02/26/22NOV 06/21/23Refill sent 53574-4Onttkryio encounter TshcBK3317-70-39F79:35:54Telephone encounter NoteTXT1.2.840.731194.1.13.104.2.7. 2.806525|[id number] for patient jjnv81293-9ErqdMBPBKVJEQOJZdulnucaz C-CDA narrative [id number] Paulino RN[address] RgocI[id number] 8WJOEUTBSRAVGCBAYJCMRJZ6205-91-80Y1 9:35:541.2.840.439592.1.72.3.15|1.2 .840.291756.1.13.104.2.7.2.727879_2 [id number] Reese Paulino RN [facility] 2023-04-27 10:41:33 YrVuWN1X0nx3531J8+AjIfaRSch3p/lK7BO XqiwOv0L5fllc2nO0gMRMD17qkdSc6446-7 04-27T10:41:33 JUAN 02/26/22NOV NoneRefill denied 04760-1Fcqfuhfps encounter OpliJD9001-48-51T16:42:21Telephone encounter NoteTXT1.2.840.254976.1.13.104.2.7. 2.779378|[id number] for patient jksn51610-3UdbbETXZGTZWHTZZkhkqerpi C-CDA narrative [id number] N [place] RN[address] Tc[id number] 0PGJIJTCFJKNILRBCKLWQTF4824-28-47Y3 0:42:211.2.840.313056.1.72.3.15|1.2 .840.179518.1.13.104.2.7.2.727879_1 [id number] Reese Paulino RN [facility] 2023-04-27 08:43:14 Dz1dy57rWRHsO4NfXLgqCTd4jx9lRmFXE33 qUJPyIao+20ehd6dIRw3O+YfJsIya2082-1 04-27T08:43:14 This can be discussed at appointmentNext Appt: With Family Medicine (Florecita Atkins MD)05/04/2023 at 1:45 PM 16428-3Vjvjrxujh encounter YpwjOS0353-86-80H47:43:34Telephone encounter NoteTXT1.2.840.642451.1.13.104.2.7. 2.632992|[id number] for patient srqb68287-1OhzmWZDHOYYWQUKYuualevxp C-CDA narrative text[id number] 0SCBVKBVQDLQUPMHEEMDDKJ6231-57-01G0 8:43:341.2.840.079722.1.72.3.15|1.2 .840.940546.1.13.104.2.7.2.727879_1 [id number] [facility] 2023-04-26 15:14:42 4gLldEWqlGLDov7jzVJ6gWVqGkKRiEtbQtc l5HTmSyRef0N8eJ84rjZGXAQsgDR70188-2 5:14:42 Roya Fitzpatrick is a 52 year old femalePt is calling stating that she is needing a order for Dexcom for insulin pump. Please contact [phone] (home) 34502-6Zoujxngik encounter ZyctRG5777-10-73X12:17:50Telephone encounter NoteTXT1.2.840.292854.1.13.104.2.7. 2.652902|[id number] for patient yuhz05897-1SujgFDFOXJQTQIXBbcdjhkmk C-CDA narrative bvmu899830427Tnwomf R Marsh[id number] 8HSZYLSLGVJGMEADRLPOQGY1166-95-59A6 5:17:501.2.840.967660.1.72.3.15|1.2 .840.106346.1.13.104.2.7.2.727879_1 [id number] [place] [facility] 2023-04-19 22:47:30 SHt0VHB9gfKEn2N0nYk7Rr6kFffWoDtJR/N tsL7KiDxykR4FTecA8jD5WdzMR+Ag3023-9 06-20T22:47:30 JUAN:02/26/2022NOV:NonePatie nt needs an appointment for refills .Mattie Tolbert MA 04/19/2023 10:48 PM 83704-0Olvewsyec encounter TfmcJM5252-61-85P84:48:33Telephone encounter NoteTXT1.2.840.323693.1.13.104.2.7. 2.310512|2966841937ZTZdnswxqug for patient kdeu02243-2DkepGIPKWYJGWWLYpkwakvuw C-CDA narrative ruzu087293845Uvvcrpf Sanchez [address] BrgyTxsbgnrzfPlfopuindYFQB751239995 2NCUVEQMFRFAKRYWVGYUJUM9109-64-73P6 2:48:331.2.840.540943.1.72.3.15|1.2 .840.135390.1.13.104.2.7.2.727879_1 [id number] Mattie Tolbert MA [facility] 2022-12-22 13:49:22 Lc+CpwcwFDwWadj0wgNTF97J0c2v3E/PBcG zZ4ZO9odYVYdeQXwuoaC4HIavGY+O5483-6 12-22T13:49:22 Attempted to reach patient No answer left V/M return call . 20003-4Hlkocyldq encounter RcxpOV7803-94-98G39:50:43Telephone encounter NoteTXT1.2.840.921267.1.13.104.2.7. 2.701429|1035219433XSWpdkvpcxh for patient koyp75033-9JwbrYAOUNQQUAS[address] ZeqlCcmmcliotGyrebdkriZUCV111329524 3VGEISFFLTKJMDWORBJUIZL2539-34-65H8 3:50:431.2.840.104519.1.72.3.15|1.2 .840.719492.1.13.104.2.7.2.727879_1 [id number] [facility] 2022-12-22 10:29:06 k3gg631Aipph029ex9/jq2SDGMmdEnPD6cc hSVAVBygd3Qb8KmhCqG4k/g5tK80a3486-5 12-22T10:29:06 Roya Fitzpatrick is a 52 year old female that has changed insurance to [employer] and would like to be reassigned to Dr. Atkins.The pt states that a code is needed to get Dr. Atkins reassigned to her.Please contact to assist. 49849-9Esiwmgyyg encounter TzbnSX7145-90-51R09:31:15Telephone encounter NoteTXT1.2.840.417962.1.13.104.2.7. 2.734781|9870232099KBRwtepiujo for patient jbns65141-3VrzmAU202581371Bmnz [address] OdryQrahkyskdUrjpadynhTEHV327289931 2NVYVKCQFHGCGTFCBNFURFC5795-76-77C6 0:31:151.2.840.764611.1.72.3.15|1.2 .840.928145.1.13.104.2.7.2.727879_1 [id number] Gilda Corona [facility] 2022-11-19 14:31:16 U8RVB8n9IDrihJ40Dz6PZG6s5N5HaMvvraU +Efbadkwkl2Rkaq95qcCvMa+BPfol2969-2 4:31:[address] of Dexcom due to formulary reasons 66723-1Gxiogafst encounter IyouRA4273-68-17H55:32:09Telephone encounter NoteTXT1.2.840.558982.1.13.104.2.7. 2.121397|9496358549ROTpvpsezrl for patient pljt651603228Xvtt D [place] [address] KfwoVtotrjrusFowzobwvpVRBA178111527 5NQMGCSXJPQRMAPCBYHAVWS5141-26-62N8 4:32:091.2.840.751743.1.72.3.15|1.2 .840.173444.1.13.104.2.7.2.727879_1 [id number] Juanis Huitron [facility] 2022-11-19 10:44:27 UhQemkqtMMPHjK0DJJIkeTlMfFIFAGzynHr 3oz68zTaUM2mlkwdiUm24zT1js6Ia6755-4 0:44:27 Michele leavitt [facility] called and states that DEXCOM is needing a prior authorization, or provider can call in preferred rx, Freestyle Dom. Please advise. Call back number: [phone], option 5Fax: Svnjjvkkpbgnwi signed by Amalia Kim at 11/19/2022 10:46 AM QGC11224-5Nootgxjkp encounter LxkxFC8398-55-70H35:46:50Telephone encounter NoteTXT1.2.840.443963.1.13.104.2.7. 2.587052|6942927715YYKstixbzts for patient [id number] R Marro[address]XgfiKpihfbgbxTjrgcvomcKLBN328282585 0MEMDXMOCIFLOHZPTNAFEQD5966-84-21C0 0:46:501.2.840.677289.1.72.3.15|1.2 .840.649792.1.13.104.2.7.2.727879_1 [id number] Amalia Kim [facility] 2022-11-18 17:35:41 deaCPrbXg7qZ2TQKdhnpyB7wB+QXe8MpTlT 5SC6YizTIigp4VBtLn9LAe1AE/1g01475-7 7:35:41 Roya Fitzpatrick is a 52 year old femalePatient is concerned because she did not receive her glucose meter that was ordered for her.Please call patient to advise. 22354-5Phfrlymfc encounter HadsHB7765-58-78E41:36:59Telephone encounter NoteTXT1.2.840.390027.1.13.104.2.7. 2.802099|[id number] for patient yajc59790166Cmsmd E Taylor[address] StreetKlrzJatgqxuxnYbyqoiaviKBYR749928975 8NTECTTNXLDMBYCJGKANQZP4761-31-03R3 7:36:591.2.840.184440.1.72.3.15|1.2 .840.027854.1.13.104.2.7.2.727879_1 [id number] Kaitlynn Carter [facility] 2022-11-17 13:47:55 9xdAioSE8b/aaPXmnYHvmYnaTJH+96Zj7Qy bEwgmM4xDvYAl7yVF6wBXvcAjKCkn3726-3 3:47:55 Patient appt has been r/s 3x and she is out of medication. 27287-0Ckigagjwf encounter DaixAX9654-33-03N01:49:48Telephone encounter NoteTXT1.2.840.735678.1.13.104.2.7. 2.890536|[id number] for patient avyl33003-3TvkqAX32299066Mwvddlua Ch[address] FyatMggd[id number] 2HFVOUVALGPMPJAZKXAPKZC4159-27-31I3 3:49:481.2.840.389132.1.72.3.15|1.2 .840.632539.1.13.104.2.7.2.727879_1 [id number] Andreea Quiros [facility]
[2023-08-12] MEDS ORDERED: HYDROMORPHONE HCL 1 MG/ML INJ ONE ×3 (08:02→13:01)
[2023-08-12 08:19] LABS: Absolute Basophils 0.1 K/uL (0-0.5); Absolute Lymphocytes (CBC) 1.1 K/uL (0.7-4.9); Absolute Monocytes 0.3 K/uL (0.1-1.3); Absolute Neutrophil 15.1 K/uL (1.8-8.0); Basophils % 0.6 % (0-1.3); Eosinophils % 0.1 % (0-4.4); Hematocrit 40.3 % (36.0-45.0); Hemoglobin 13.7 g/dL (12.0-15.0); Lymphocytes % 6.3 % (15.3-44.8); MCH 30.4 pg (27.0-35.0); MCV 89.6 fL (80-100); MPV 9.7 fL (7.6-11.3); Monocytes % 1.8 % (3.3-12.3); Neutrophils % 91.2 % (41.7-73.7); Nucleated Red Blood Cells % 0.2 % (0-0); Platelets 314 thou/uL (152-406); Red Cell Distribution Width 13.2 % (12.1-15.2)
[2023-08-12 08:35] LABS: Albumin 3.8 g/dL (3.4-5.0); Albumin/Globulin Ratio 0.7 (1.1-1.8); Anion Gap 16.9 mEq/L (5.0-15.0); Bilirubin Total 0.6 mg/dL (0.2-1.0); Globulin 5.1 g/dL (2.3-3.5); Potassium 3.9 mEq/L (3.5-5.1); Protein, Total 8.9 g/dL (6.4-8.2)
[2023-08-12 09:04] LABS: Blood Morphology Comment NOT SEEN (NOT SEEN); Platelet Estimate ADEQ; Toxic Granulation 1+; White Blood Cell Scan OK (OK)
--- NOTE | 2023-08-12 09:05 | RAD REPORT ---
EXAM DESCRIPTION: CT - Abdomen Pelvis W Contrast - 08/12/2023 8:16 am CLINICAL HISTORY: ABD PAIN COMPARISON: Abdomen Pelvis W Contrast dated 01/31/2020; Abdomen Pelvis W Contrast dated 11/23/2018; Abdomen Pelvis W Contrast dated 03/11/2017; Abdomen Pelvis W Contrast dated 04/09/2016; Abdomen Pelvis Wo Contrast dated 01/15/2022 TECHNIQUE: Thin cut axial CT imaging of the abdomen and pelvis was performed following intravenous a dministration of 100 mL Isovue 300. Multiplanar reformats were generated and reviewed. All CT scans are performed using dose optimization technique as appropriate and may include automated exposure control or mA/KV adjustment according to patient size. FINDINGS: No suspicious findings in the lung bases. The liver, spleen, and adrenal glands show no suspicious findings. Nodular appearance of the right ad renal gland is stable without a dominant mass. Gallbladder and biliary tree are also without suspicio us finding. Mild swelling and fat stranding along the pancreatic body and to lesser extent the pancreatic head. N o appreciable fluid collections or areas of non enhancement. Symmetric renal function is seen with no hydronephrosis or suspicious renal mass. No dilated bowel loops or bowel wall thickening. Appendix is unremarkable. No free air, free fluid or inflammatory stranding. No hernia, mass or bulky lymphadenopathy. The urinary bladder is without sig nificant finding. No suspicious bony findings. IMPRESSION: Findings of acute edematous interstitial pancreatitis involving the body and head of the pancreas without complications.
--- NOTE | 2023-08-12 09:12 | ER ---
Nurse's Notes [facility] [place] Name: Roya Anne Age: 53 yrs Sex: Female : 1970 Arrival Date: 08/12/2023 Time: 07:48 Bed 7 Private MD: Diagnosis: Pancreatitis, dehydration, hyperglycemia Presentation: 08/11 07:50 Chief complaint: EMS states: pt c/o "pancreatic attack" X 1 hour, pt reports BS was 560 iw at home, took 4 units of her 70/30, EMS got 392 BS , pt c/o upper abd pain , n/v. Coronavirus screen: At this time, the client does not indicate any symptoms associated with coronavirus-19. Ebola Screen: Patient negative for fever greater than or equal to 101.5 degrees Fahrenheit, and additional compatible Ebola Virus Disease symptoms Patient denies exposure to infectious person. Patient denies travel to an Ebola-affected area in the 21 days before illness onset. No symptoms or risks identified at this time. Initial Sepsis Screen: Does the patient meet any 2 criteria? HR > 90 bpm. Does the patient have a suspected source of infection?. Risk Assessment: Do you want to hurt yourself or someone else? Patient reports no desire to harm self or others. Onset of symptoms was August 12, 2023. 07:50 Method Of Arrival: EMS: [facility] iw 07:50 Acuity: AGATA 3 iw Historical: - Allergies: 07:52 No Known Allergies; iw - PMHx: 07:52 diabetes mellitus; neuropathy; Schizophrenia; iw - Immunization history:: Adult Immunizations up to date. - Infectious Disease History:: Denies. - Social history:: Smoking status: Patient denies any tobacco usage or history of. Patient/guardian denies using alcohol. Screenin:53 [facility] ED Fall Risk Assessment (Adult) History of falling in the last 3 months, iw including since admission No falls in past 3 months (0 pts) Confusion or Disorientation No (0 pts) Intoxicated or Sedated No (0 pts) Impaired Gait No (0 pts) Mobility Assist Device Used No (0 pt) Altered Elimination No (0 pt) Score/Fall Risk Level 0 - 2 = Low Risk. Abuse screen: Denies threats or abuse. Denies injuries from another. Nutritional screening: No deficits noted. Tuberculosis screening: No symptoms or risk factors identified. Assessment: 07:53 General: Appears uncomfortable, Behavior is agitated, anxious. Pain: Complains of pain iw in epigastric area, right upper quadrant and left upper quadrant Pain radiates to right lower quadrant and left lower quadrant Pain currently is 10 out of 10 on a pain scale. Neuro: Level of Consciousness is awake, alert, obeys commands, Oriented to person, place, time, situation, Moves all extremities. Cardiovascular: Patient's skin is warm and dry. Respiratory: Respiratory effort is even, unlabored, Respiratory pattern is regular. GI: Abd is soft X 4 quads Reports upper abdominal pain, nausea, vomiting. Derm: Skin is intact, is healthy with good turgor. Musculoskeletal: Range of motion: intact in all extremities. 08:33 Reassessment: Patient appears in no apparent distress at this time. Patient and/or iw family updated on plan of care and expected duration. Pain level reassessed. pain has improved but still there, awaiting CT results. Vital Signs: 07:50 BP 157 / 89; Pulse 112; Resp 18; Temp 96.7(TE); Pulse Ox 100% ; Weight 79.83 kg; Height iw 5 ft. 2 in. ; Pain 10/10; 08:33 BP 148 / 88; Pulse 102; Resp 18; Pulse Ox 96% on R/A; iw 09:21 BP 166 / 85; Pulse 93; Resp 16; Pulse Ox 97% on R/A; iw 07:50 Body Mass Index 32.19 (79.83 kg, 157.48 cm) iw 07:50 Pain Scale: Adult iw ED Course: 07:50 Patient arrived in ED. iw 07:52 Triage completed. iw 07:52 Arm band placed on. iw 07:53 Shelby Velasquez, RN is Primary Nurse. iw 07:53 Unique Dhaliwal MD is Attending Physician. sp3 07:54 Patient has correct armband on for positive identification. Provided Education on: lab iw draw. Pulse ox on. NIBP on. 08:03 Initial lab(s) drawn, by me, sent to lab. Inserted saline lock: 22 gauge in right jg11 antecubital area, using aseptic technique. Blood collected. 08:03 CBC with Diff Sent. jg11 08:03 CMP Sent. jg11 08:03 Lipase Sent. jg11 08:18 CT Abd/Pelvis - IV Contrast Only In Process Unspecified. EDMS 08:39 Notified ED physician of a critical lab result(s). glucose 606. ap3 09:10 Nahun Esteves is Hospitalizing Provider. sp3 Administered Medications: 08:05 Drug: NS 0.9% IV 1000 ml IV at 1 bolus Per protocol; 1000 mL bolus Route: IV; Rate: 1 iw bolus; Site: right antecubital; 10:00 Follow up: IV Status: Completed infusion iw 08:05 Drug: Ondansetron IVP 4 mg IVP once; over 2 minutes Route: IVP; Site: right antecubital;iw 08:05 Drug: HYDROmorphone IVP 1 mg IVP once Route: IVP; Site: right antecubital; iw 09:43 Follow up: Response: No adverse reaction; Pain is decreased iw 09:38 Drug: Insulin Regular Human IVP 10 units IVP once {Co-Signature: rs5 (Celso Page RN).} Route: IVP; Site: right antecubital; 11:22 Follow up: Response: No adverse reaction; Blood sugar is lowered iw 09:38 Drug: NS 0.9% IV 1000 ml IV at 1 bolus Per protocol; 1000 mL bolus Route: IV; Rate: 1 iw bolus; Site: right antecubital; 11:22 Follow up: IV Status: Completed infusion iw 09:38 Drug: HYDROmorphone IVP 1 mg IVP once Route: IVP; Site: right antecubital; iw Medication: 07:54 VIS not applicable for this client. iw Outcome: 09:11 Decision to Hospitalize by Provider. sp3 15:46 Patient left the ED. iw Signatures: Dispatcher [employer] EDMS Shelby Velasquez RN RN iw Delia Madden RN RN ap3 Unique Dhaliwal MD MD sp3 Sid Lowe jg11 Celso Page RN rs5 Corrections: (The following items were deleted from the chart) 09:43 08:45 Response: No adverse reaction; Pain is decreased iw iw
--- NOTE | 2023-08-12 09:12 | EDPHYS ---
Physician Documentation [facility] Name: Roya Anne Age: 53 yrs Sex: Female : 1970 Arrival Date: 08/12/2023 Time: 07:48 Bed 7 Private MD: ED Physician Unique Dhaliwal HPI: 08/11 07:56 This 53 yrs old Female presents to ER via EMS with complaints of Abdominal sp3 Pain, Vomiting. 07:56 53-year-old female with a history of diabetes, schizophrenia, prior pancreatitis due to sp3 unknown etiology, status post cholecystectomy presents ED with chief complaint epigastric pain for 24 hours coupled with emesis. No blood or mucus noted. Patient denies headache, fever, URI symptoms, chest pain, shortness of breath, back pain, flank pain, lower abdominal pain, diarrhea, [employer] symptoms, symptoms, or any other signs or symptoms on ROS at this time.. Historical: - Allergies: 07:52 No Known Allergies; iw - PMHx: 07:52 diabetes mellitus; neuropathy; Schizophrenia; iw - Immunization history:: Adult Immunizations up to date. - Infectious Disease History:: Denies. - Social history:: Smoking status: Patient denies any tobacco usage or history of. Patient/guardian denies using alcohol. ROS: 07:57 Constitutional: Negative for fever, chills, and weight loss, Eyes: Negative for injury, sp3 pain, redness, and discharge, ENT: Negative for injury, pain, and discharge, Neck: Negative for injury, pain, and swelling, Cardiovascular: Negative for chest pain, palpitations, and edema, Respiratory: Negative for shortness of breath, cough, wheezing, and pleuritic chest pain, Back: Negative for injury and pain, MS/Extremity: Negative for injury and deformity, Skin: Negative for injury, rash, and discoloration, Neuro: Negative for headache, weakness, numbness, tingling, and seizure, Psych: Negative for depression, anxiety, suicide ideation, homicidal ideation, and hallucinations, Allergy/Immunology: Negative for hives, rash, and allergies, Endocrine: Negative for neck swelling, polydipsia, polyuria, polyphagia, and marked weight changes, Hematologic/Lymphatic: Negative for swollen nodes, abnormal bleeding, and unusual bruising, 07:57 All other systems are negative, Exam: 07:57 Constitutional: This is a well developed, well nourished patient who is awake, alert, sp3 and in no acute distress. Head/Face: Normocephalic, atraumatic. Eyes: Pupils equal round and reactive to light, extra-ocular motions intact. Lids and lashes normal. Conjunctiva and sclera are non-icteric and not injected. Cornea within normal limits. Periorbital areas with no swelling, redness, or edema. ENT: Nares patent. No nasal discharge, no septal abnormalities noted. External auditory canals are clear. Oropharynx with no redness, swelling, or masses, exudates, or evidence of obstruction, uvula midline. Mucous membranes moist. Neck: Trachea midline, no thyromegaly or masses palpated, and no cervical lymphadenopathy. Supple, full range of motion without nuchal rigidity, or vertebral point tenderness. No Meningismus. Chest/axilla: Normal chest wall appearance and motion. Nontender with no deformity. No lesions are appreciated. Cardiovascular: Regular rate and rhythm with a normal S1 and S2. No gallops, murmurs, or rubs. Normal PMI, no JVD. No pulse deficits. Respiratory: Lungs have equal breath sounds bilaterally, clear to auscultation and percussion. No rales, rhonchi or wheezes noted. No increased work of breathing, no retractions or nasal flaring. Back: No spinal tenderness. No costovertebral tenderness. Full range of motion. Skin: Warm, dry with normal turgor. Normal color with no rashes, no lesions, and no evidence of cellulitis. MS/ Extremity: Pulses equal, no cyanosis. Neurovascular intact. Full, normal range of motion. Neuro: Awake and alert, GCS 15, oriented to person, place, time, and situation. Cranial nerves II-XII grossly intact. Motor strength 5/5 in all extremities. Sensory grossly intact. Cerebellar exam normal. Normal gait. Psych: Awake, alert, with orientation to person, place and time. Behavior, mood, and affect are within normal limits. 07:57 Abdomen/GI: Pain to palpation epigastrically without peritoneal signs, rebound or guarding., Vital Signs: 07:50 BP 157 / 89; Pulse 112; Resp 18; Temp 96.7(TE); Pulse Ox 100% ; Weight 79.83 kg; Height iw 5 ft. 2 in. ; Pain 10/10; 08:33 BP 148 / 88; Pulse 102; Resp 18; Pulse Ox 96% on R/A; iw 09:21 BP 166 / 85; Pulse 93; Resp 16; Pulse Ox 97% on R/A; iw 07:50 Body Mass Index 32.19 (79.83 kg, 157.48 cm) iw 07:50 Pain Scale: Adult iw MDM: 07:55 Patient medically screened. sp3 07:58 Data reviewed: vital signs, nurses notes, EMS record, old medical records, lab test sp3 result(s), radiologic studies. ED course: 53-year-old female with epigastric pain. Differential diagnosis includes pancreatitis, gastritis, GERD, colitis, among others. I am not highly suspicious for acute coronary syndrome, nausea pathology, sepsis, shock or any other critical process. Workup will include CT scan of the abdomen pelvis, laboratory values, UA and we will administer IV fluids, pain and nausea control. Later on other meds as indicated. Disposition pending workup and patient course.. 08/11 07:54 Order name: CBC with Diff; Complete Time: 09:07 sp3 08/11 07:54 Order name: CMP; Complete Time: 09:07 sp3 08/11 07:54 Order name: Lipase; Complete Time: 09: sp3 08/11 08:22 Order name: CBC Smear Scan; Complete Time: 09:07 EDMS 08/11 10:22 Order name: Lipase EDMS 08/11 10:22 Order name: Urinalysis w/ reflexes EDMS 08/11 10:22 Order name: Basic Metabolic Panel EDMS 08/11 10:22 Order name: Basic Metabolic Panel EDMS 08/11 10:22 Order name: CBC with Automated Diff EDMS 08/11 10:22 Order name: CBC with Automated Diff EDMS 08/11 10:22 Order name: Lipid Profile EDMS 08/11 10:22 Order name: Lipid Profile EDMS 08/11 10:22 Order name: Magnesium EDMS 08/11 10:22 Order name: Magnesium EDMS 08/11 10:22 Order name: Phosphorus EDMS 08/11 10:22 Order name: Phosphorus EDMS 08/11 11:21 Order name: Glucose, Ancillary Testing EDMS 08/11 15:14 Order name: Glucose, Ancillary Testing EDMS 08/11 15:16 Order name: CBC with Automated Diff EDMS 08/11 07:56 Order name: CT Abd/Pelvis - IV Contrast Only; Complete Time: 09:08 sp3 08/11 07:54 Order name: IV Saline Lock; Complete Time: 08:03 sp3 08/11 07:54 Order name: Labs collected and sent; Complete Time: 08:03 sp3 Administered Medications: 08:05 Drug: NS 0.9% IV 1000 ml IV at 1 bolus Per protocol; 1000 mL bolus Route: IV; Rate: 1 iw bolus; Site: right antecubital; 10:00 Follow up: IV Status: Completed infusion iw 08:05 Drug: Ondansetron IVP 4 mg IVP once; over 2 minutes Route: IVP; Site: right antecubital;iw 08:05 Drug: HYDROmorphone IVP 1 mg IVP once Route: IVP; Site: right antecubital; iw 09:43 Follow up: Response: No adverse reaction; Pain is decreased iw 09:38 Drug: Insulin Regular Human IVP 10 units IVP once {Co-Signature: rs5 (Celso Page iw RN).} Route: IVP; Site: right antecubital; 11:22 Follow up: Response: No adverse reaction; Blood sugar is lowered iw 09:38 Drug: NS 0.9% IV 1000 ml IV at 1 bolus Per protocol; 1000 mL bolus Route: IV; Rate: 1 iw bolus; Site: right antecubital; 11:22 Follow up: IV Status: Completed infusion iw 09:38 Drug: HYDROmorphone IVP 1 mg IVP once Route: IVP; Site: right antecubital; iw Disposition Summary: 08/12/23 09:11 Hospitalization Ordered Notes: Hospitalization Status: Observation sp3 Provider: Nahun Esteves sp3 Condition: Stable sp3 Problem: an acute exacerbation sp3 Symptoms: have worsened sp3 Bed/Room Type: Standard sp3 Location: Telemetry/MedSurg (Inpatient)(08/12/23 14:54) eb Room Assignment: 415(08/12/23 14:54) eb Diagnosis - Pancreatitis, dehydration, hyperglycemia sp3 Forms: - Medication Reconciliation Form sp3 - SBAR form sp3 - Leadership Thank You Letter sp3 Signatures: Dispatcher [employer] Shelby Lopez, RN RN Linn Baker Setul, MD MD sp3 Celso Page RN rs5 Corrections: (The following items were deleted from the chart) : Telemetry/MedSurg (observation) sp3 eb : sp3 eb 14:54 10: [facility] ER HOLD eb eb 14:54 10: ERHOLD- eb eb
[2023-08-12] MEDS ORDERED: INSULIN REGULAR (HUMAN) 100 UNIT/ML ONE ×2 (09:29→11:19)
--- NOTE | 2023-08-12 10:49 | P.HP ---
Patient History Date of Service: 08/13/23 Reason for admission: Acute Pancreatitis History of Present Illness: Roya Anne is a 53 year old female with Pmhx diabetes mellitus, neuropathy, TB (2016), hyperlipidemia, bipolar, anemia, chronic neck pain, and Schizophrenia who presents to the ED with chief complaint of abdominal pain associated with vomiting. She reports pancreatitis several years ago. She reports not drinking alcohol, reports stopping several years ago. She states she has had a cough this week. She reports being compliant with her medications as well as uses marijuana regularly to increase her appetite. She last used marijuana last week before cough started. She presents with hyperglycemia without DKA and reports her home regimen is 70/30 and humalog. She will be starting the dexcom with the omnipod soon. On examination she presents very uncomfortable, epigastric and RUQ pain, low blood pressure, clear breath sounds, and c/o being very thirsty. Intial vitals:BP 157 / 89; Pulse 112; Resp 18; Temp 96.7(TE); Pulse Ox 100% Laboratory evaluation WBC 16.6, Na 129, serum glucose 606, lipase 1076 CT abd/pelvis reports "Findings of acute edematous interstitial pancreatitis involving the body and head of the pancreas without complications." Roya will be admitted to hospitalist service for further treatment of acute pancreatitis. Allergies No Known Allergies Allergy (Verified 03/29/17 16:06) Home Medications: Albuterol Sulfate [Proair Hfa] 1 puff IN QIDP PRN 01/20/18 Dexlansoprazole [Dexilant] 60 mg PO DAILY 01/20/18 ondansetron HCL [Zofran] 4 mg PO BID 01/20/18 Dicyclomine [Bentyl*] 20 mg PO BID 04/10/19 Insulin -Regular Human [Novolin -R*] See Protocol SQ ACHS ml 02/01/20 Quetiapine [Seroquel*] 300 mg PO BID tab 02/01/20 Zolpidem Tartrate [Ambien*] 5 mg PO BEDTIME PRN PRN tablet 02/01/20 methIMAzole [Tapazole*] 10 mg PO DAILY 10/28/20 Metoclopramide HCl [Reglan] 5 mg PO Q8H PRN 10 Days #30 tablet 10/31/20 - Past Medical/Surgical History Diabetic: Yes -: Bipolar Disorder -: Schizophrenia -: IDDM - gestational DM after at 11yo -: Hyperlipidemia -: neuropathy -: 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 She does not work. She is disabled due to her mental illness. - Family History Mother -: Diabetes - Social History Alcohol use: No CD- Drugs: No Caffeine use: Yes Review of Systems General: Fever, Chills, Weakness Respiratory: Cough Gastrointestinal: Nausea, Vomiting, Abdominal Pain Physical Examination - Physical Exam General: Alert, In no apparent distress, Oriented x3 HEENT: Atraumatic, Normocephalic, PERRLA Neck: Supple, JVD not distended Respiratory: Clear to auscultation bilaterally, Normal air movement Cardiovascular: Normal pulses, Regular rate/rhythm, Normal S1 S2 Capillary refill: <2 Seconds Gastrointestinal: Hypoactive, Non-distended, Tenderness (epigastric and RUQ) Musculoskeletal: No swelling Integumentary: No breakdown Neurological: Normal speech, Normal tone - Studies Laboratory Data (last 24 hrs) 08/12/23 08/12/23 08:01 08:01 WBC 16.60 H Hgb 13.7 Hct 40.3 Plt Count 314 Sodium 129 L Potassium 3.9 BUN 23 H Creatinine 1.04 H Glucose 606 H* Total Bilirubin 0.6 AST 18 ALT 28 Alkaline Phosphatase 103 Lipase 1076 H Assessment and Plan - Plan Assessment and Plan Acute pancreatitis Dehydration Hyponatremia -CT Abd/pelvis reports " Findings of acute edematous interstitial pancreatitis involving the body and head of the pancreas without complications." -Lipase 1076, WBC 16.6, Serum glucose 606, Na 129, Lipid panel pending -IVF 110 ml/hr -Monitor I and O and vitals for hydration status -Recheck BMP/CBC/ lipase in 6 hours -pain control -antiemetic Diabete mellitus- IDDM with hyperglycemia without DKA -Serum glucose 606 -home regimen 70/30 and humalog -plans to start dexcom with omnipod -Accucheck with Sliding scale insulin -IVF History Hypothyroidism History of bipolar/schizophrenia History of chronic neck pain/neuropathy -continue home medications DVT ppx SCD full code 2-3 days Discharge Plan: Home Plan to discharge in: 72 Hours - Advance Directives Does patient have a Living Will: No Does patient have a Durable POA for Healthcare: No
[2023-08-12] MEDS ORDERED: NA CHLORIDE 0.9% 1,000 ML IV SCH ×2 (11:00)
[2023-08-12] MEDS: NA CHLORIDE 0.9% 1,000 ML IV SCH (11:00)
[2023-08-12] MEDS: INSULIN REGULAR (HUMAN) 100 UNIT/ML SQ SCH (11:30)
[2023-08-12 11:43] VITALS: BMI 27.4
[2023-08-12] MEDS: HYDROMORPHONE HCL 1 MG/ML INJ IV PRN (13:15)
[2023-08-12] MEDS: ONDANSETRON 4 MG/2 ML VIAL IV PRN (13:15)
[2023-08-12 14:25] LABS: Urine Bacteria <20 /HPF (<20); Urine Bilirubin NEGATIVE (Negative); Urine Blood 1+ (Negative); Urine Clarity Clear (Clear); Urine Color Light-Yellow (Yellow); Urine Culture Reflex Order NOT NEEDED; Urine Glucose 4+ (Over) (Negative); Urine Ketones 2+ (Negative); Urine Microscopic Reflex YN ORDER UMIC; Urine Mucus 2+ /HPF (None Seen); Urine Nitrite NEGATIVE (Negative); Urine Protein 1+ (Negative); Urine RBC 21-50 /HPF (None Seen); Urine Urobilinogen Normal (Normal); Urine WBC <5 /HPF (<5)
[2023-08-12 14:26] LABS: Specific Gravity > 1.030 (1.005-1.030)
[2023-08-12 15:12] LABS: Absolute Basophils 0.1 K/uL (0-0.5); Absolute Monocytes 0.9 K/uL (0.1-1.3); Absolute Neutrophil 9.8 K/uL (1.8-8.0); Basophils % 0.8 % (0-1.3); Eosinophils % 0.1 % (0-4.4); Hematocrit 35.3 % (36.0-45.0); Hemoglobin 11.5 g/dL (12.0-15.0); Lymphocytes % 15.9 % (15.3-44.8); MCH 29.3 pg (27.0-35.0); MCHC 32.7 g/dL (32.0-36.0); MCV 89.6 fL (80-100); MPV 9.6 fL (7.6-11.3); Monocytes % 7.2 % (3.3-12.3); Platelets 254 thou/uL (152-406); RBC Red Blood Cell Count 3.94 M/uL (3.86-4.86)
[2023-08-12 15:59] LABS: Anion Gap 3.8 mEq/L (5.0-15.0); Potassium 3.8 mEq/L (3.5-5.1)
[2023-08-12] MEDS: ZOLPIDEM TARTRATE 10 MG TABLET PO ONE (23:51)
[2023-08-12] MEDS: ATORVASTATIN 10 MG TAB PO ONE (23:51)
[2023-08-13 03:44] LABS: Absolute Basophils 0.1 K/uL (0-0.5); Absolute Eosinophils 0.1 K/uL (0-0.5); Absolute Lymphocytes (CBC) 1.9 K/uL (0.7-4.9); Absolute Monocytes 0.6 K/uL (0.1-1.3); Absolute Neutrophil 4.5 K/uL (1.8-8.0); Basophils % 0.8 % (0-1.3); Hematocrit 33.8 % (36.0-45.0); Hemoglobin 11.4 g/dL (12.0-15.0); Lymphocytes % 26.8 % (15.3-44.8); MCH 30.2 pg (27.0-35.0); MCHC 33.7 g/dL (32.0-36.0); MCV 89.5 fL (80-100); MPV 9.4 fL (7.6-11.3); Monocytes % 8.5 % (3.3-12.3); Neutrophils % 62.9 % (41.7-73.7); Nucleated Red Blood Cells % 0.2 % (0-0); Platelets 218 thou/uL (152-406); RBC Red Blood Cell Count 3.78 M/uL (3.86-4.86); Red Cell Distribution Width 13.1 % (12.1-15.2)
[2023-08-13 04:14] LABS: Anion Gap 8.4 mEq/L (5.0-15.0); BUN Blood Urea Nitrogen 17 mg/dL (7-18); Bicarbonate 25 mEq/L (21-32); Glomerular Filtration Rate 107 ml/min (=/>90); Glucose Level 131 mg/dL (74-106); HDL Cholesterol 36 mg/dL (40-60); Lipase 849 U/L (13-75); Magnesium 2.1 mg/dL (1.6-2.4); Phosphorus 2.7 mg/dL (2.5-4.9); Potassium 3.4 mEq/L (3.5-5.1); Sodium Level 137 mEq/L (136-145)
[2023-08-13 04:26] LABS: LDL, Direct 76 mg/dL (100-129)
--- NOTE | 2023-08-13 08:09 | RAD REPORT ---
EXAM DESCRIPTION: Shyannt Single View08/13/2023 7:39 am CLINICAL HISTORY: cough, history of TB (2016) COMPARISON: Chest Single View dated 10/26/2020; Chest Single View dated 05/28/2019; Chest Single View da philip 11/03/2016; CHEST SINGLE VIEW dated 09/11/2010 TECHNIQUE: Portable AP view of the chest. FINDINGS: The lungs are clear. Stable ovoid 1.6 cm nodule in the right upper lung periphery, may rep resent a calcified granuloma. No pneumothorax or effusion. The cardiomediastinal contours are unrema rkable. IMPRESSION: No acute cardiopulmonary process. Stable findings as above.
[2023-08-13] MEDS: KCL 20 MEQ/100 mL IVPB 20 MEQ/100 ML BAG IV SCH (08:26)
[2023-08-13] MEDS ORDERED: METOCLOPRAMIDE 5 MG TAB PO PRN (08:31)
[2023-08-13] MEDS: HOME MED 1 EA UNK (Famotidine [Famotidine] 40 MG Tablet) PO SCH (09:00)
[2023-08-13] MEDS: HOME MED 1 EA UNK (Insulin Nph Hum/Reg Insulin Hm [Humulin 70/30 Kwikpen] 100 UNIT/ML Insu SQ SCH (09:00)
[2023-08-13] MEDS: GABAPENTIN 300 MG CAP PO SCH (09:55)
[2023-08-13] MEDS: QUETIAPINE 100MG TAB PO SCH ×4 (09:56→22:00)
--- NOTE | 2023-08-13 15:48 | P.PN ---
Date of Service: 08/13/23 Subjective Awake and feeling somewhat better Will continue on IV fluids another day, recheck lipase in the morning ROS 10 point ROS as noted above, otherwise negative Physical Exam General: Alert, In no apparent distress, Oriented x3 HEENT: Atraumatic, Normocephalic, PERRLA Neck: Supple, JVD not distended Respiratory: Clear to auscultation bilaterally, Normal air movement Cardiovascular: Normal pulses, RRR, Normal S1 S2 Capillary refill: <2 Seconds Gastrointestinal: Hypoactive, Non-distended, Tenderness (epigastric and RUQ) Musculoskeletal: No swelling Integumentary: No breakdown Neurological: Normal speech, Normal tone Vitals Reviewed Problem list Acute pancreatitis Dehydration Hyponatremia Diabete mellitus- IDDM with hyperglycemia without DKA History Hypothyroidism History of bipolar/schizophrenia History of chronic neck pain/neuropathy Assessment and Plan Acute pancreatitis Dehydration Hyponatremia -CT Abd/pelvis reports " Findings of acute edematous interstitial pancreatitis involving the body and head of the pancreas without complications." -Lipase 1076, WBC 16.6, Serum glucose 606, Na 129 -Na 137 today -Lipid panel triglucerides 419, cholesterol 170, LDL 76, HDL 36, lipase 849 -IVF 100 ml/hr -Monitor I and O and vitals for hydration status -Recheck BMP/CBC/ lipase in 6 hours- improved -lipase in the AM -pain control -antiemetic Diabete mellitus- IDDM with hyperglycemia without DKA -intitial Serum glucose 606- improved -home regimen 70/30 and humalog -plans to start dexcom with omnipod -Accucheck with Sliding scale insulin -IVF History Hypothyroidism History of bipolar/schizophrenia History of chronic neck pain/neuropathy -continue home medications DVT ppx lovenox full code 2-3 days
[2023-08-13] MEDS: NA CHLORIDE 0.9% 1,000 ML IV SCH (17:18)
[2023-08-13] MEDS: HYDROCODONE/APAP 5/325 MG TAB PO PRN (17:20)
[2023-08-13] MEDS: MORPHINE 2 MG/ML SYR IV PRN (21:54)
[2023-08-13] MEDS: ENOXAPARIN 40 MG/0.4 ML SQ SCH (22:00)
[2023-08-13] MEDS: ATORVASTATIN 10 MG TAB PO SCH (22:00)
[2023-08-14] MEDS: ZOLPIDEM TARTRATE 10 MG TABLET PO ONE (00:31)
[2023-08-14 07:31] LABS: Absolute Eosinophils 0.2 K/uL (0-0.5); Absolute Lymphocytes (CBC) 1.5 K/uL (0.7-4.9); Absolute Monocytes 0.3 K/uL (0.1-1.3); Absolute Neutrophil 2.8 K/uL (1.8-8.0); Basophils % 0.6 % (0-1.3); Hematocrit 32.3 % (36.0-45.0); Hemoglobin 10.8 g/dL (12.0-15.0); Lymphocytes % 31.2 % (15.3-44.8); MCH 30.2 pg (27.0-35.0); MCHC 33.4 g/dL (32.0-36.0); MCV 90.3 fL (80-100); MPV 9.9 fL (7.6-11.3); Monocytes % 6.1 % (3.3-12.3); Neutrophils % 57.1 % (41.7-73.7); Platelets 154 thou/uL (152-406); RBC Red Blood Cell Count 3.58 M/uL (3.86-4.86); Red Cell Distribution Width 12.8 % (12.1-15.2)
[2023-08-14 07:37] LABS: Anion Gap 10.7 mEq/L (5.0-15.0); Phosphorus 2.2 mg/dL (2.5-4.9); Potassium 3.7 mEq/L (3.5-5.1)
[2023-08-14 12:35] VITALS: BP 132/62; TEMP 99.3
[2023-08-14] MEDS: POTASS/SODIUM PHOSPHATE 1 PKT POWD.PACK PO SCH (13:01)
--- NOTE | 2023-08-14 13:51 | P.DS ---
Admission Date: 08/12/23 Discharge Date: 08/14/23 Disposition: ROUTINE DISCHARGE Discharge Condition: GOOD Reason for Admission: Acute Pancreatitis Brief History of Present Illness: Diagnosis Acute pancreatitis Dehydration Hyponatremia Diabete mellitus- IDDM with hyperglycemia without DKA History Hypothyroidism History of bipolar/schizophrenia History of chronic neck pain/neuropathy HPI 08/12/23 Roya Anne is a 53 year old female with Pmhx diabetes mellitus, neuropathy, TB (2016), hyperlipidemia, bipolar, anemia, chronic neck pain, and Schizophrenia who presents to the ED with chief complaint of abdominal pain associated with vomiting. She reports pancreatitis several years ago. She reports not drinking alcohol, reports stopping several years ago. She states she has had a cough this week. She reports being compliant with her medications as well as uses marijuana regularly to increase her appetite. She last used marijuana last week before cough started. She presents with hyperglycemia without DKA and reports her home regimen is 70/30 and humalog. She will be starting the dexcom with the omnipod soon. On examination she presents very uncomfortable, epigastric and RUQ pain, low blood pressure, clear breath sounds, and c/o being very thirsty. Intial vitals:BP 157 / 89; Pulse 112; Resp 18; Temp 96.7(TE); Pulse Ox 100% Laboratory evaluation WBC 16.6, Na 129, serum glucose 606, lipase 1076 CT abd/pelvis reports "Findings of acute edematous interstitial pancreatitis involving the body and head of the pancreas without complications." Roya will be admitted to hospitalist service for further treatment of acute pancreatitis. Hospital Course: Roya Anne is a pleasant 53 year old female with a past medical history significant for diabetes mellitus, neuropathy, TB (2016), hyperlipidemia, bipolar, anemia, chronic neck pain, and Schizophrenia who was admitted to the [facility] on 08/12/23 for acute pancreatitis. Roya Anne presented to the ED with chief complaint severe abdominal pain associated with vomitting. She has tolerated diet advancement without nausea. Pain is better controlled, lipase has decreased considerably. Please follow up with gastroenterology for further management. She is on room air, electrolytes are stable, ambulating independently, urinating without difficulty, and hemodynamically stable for discharge. On 08/14/23, Milagro was seen on morning rounds and deemed medically stable for discharge. Roya was discharged with instructions to schedule follow-up appointments with PCP and Dr. Kemp. The patient and family members were given the opportunity to ask questions and reported no further questions. Furthermore, all questions were answered to the best of my ability. A copy of this discharge summary will be sent to the above providers to facilitate continuity of care. Physical Exam General: AAOx3, NAD, conversing well HEENT: Atraumatic, Normocephalic, PERRLA Neck: Supple, JVD not distended Respiratory: Clear to auscultation bilaterally, Normal air movement Cardiovascular: RRR, Normal S1 S2 Capillary refill: <2 Seconds Gastrointestinal: normal active bowel sounds, Non-distended Musculoskeletal: No swelling, 2+ peripheral pulses Integumentary: No breakdown Neurological: Normal speech, Normal tone Vital Signs/Physical Exam: Temp Pulse Resp BP Pulse Ox 99.3 F 99 H 14 132/62 94 08/14/23 12:00 08/14/23 12:00 08/14/23 12:00 08/14/23 12:00 08/14/23 12:00 Laboratory Data at Discharge: WBC 4.90 thou/uL (4.3-10.9) 08/14/23 07:04 Hgb 10.8 g/dL (12.0-15.0) L 08/14/23 07:04 Hct 32.3 % (36.0-45.0) L 08/14/23 07:04 Plt Count 154 thou/uL (152-406) D 08/14/23 07:04 Sodium 137 mEq/L (136-145) 08/14/23 07:04 Potassium 3.7 mEq/L (3.5-5.1) 08/14/23 07:04 BUN 5 mg/dL (7-18) L 08/14/23 07:04 Creatinine 0.50 mg/dL (0.55-1.02) L 08/14/23 07:04 Glucose 188 mg/dL (74-106) H 08/14/23 07:04 Phosphorus 2.2 mg/dL (2.5-4.9) L 08/14/23 07:04 Magnesium 2.0 mg/dL (1.6-2.4) 08/14/23 07:04 Total Bilirubin 0.6 mg/dL (0.2-1.0) 08/12/23 08:01 AST 18 U/L (15-37) 08/12/23 08:01 ALT 28 U/L (13-56) 08/12/23 08:01 Alkaline Phosphatase 103 U/L (45-117) 08/12/23 08:01 Triglycerides 419 mg/dL (<150) H 08/13/23 03:34 Cholesterol 170 mg/dL (<200) 08/13/23 03:34 LDL Cholesterol Direct 76 mg/dL (100-129) L 08/13/23 03:34 HDL Cholesterol 36 mg/dL (40-60) L 08/13/23 03:34 Cholesterol/HDL Ratio 4.72 08/13/23 03:34 Lipase 330 U/L (13-75) H 08/14/23 07:04 Home Medications: Atorvastatin Calcium [Lipitor*] 10 mg PO BEDTIME 08/13/23 Dicyclomine [Bentyl*] 20 mg PO BID 08/13/23 Famotidine 40 mg PO BID 08/13/23 Furosemide 20 mg PO Q48H 08/13/23 Gabapentin 300 mg PO BID 08/13/23 Insulin Lispro [Humalog] 10 units SQ BID 08/13/23 Insulin NPH Hum/Reg Insulin Hm [Humulin 70/30 Kwikpen] 40 units SQ BID 08/13/23 Lisinopril [Zestril] 5 mg PO DAILY 08/13/23 Metoclopramide [Reglan*] 10 mg PO QID PRN 08/13/23 Quetiapine [Seroquel*] 50 mg PO 1300 08/13/23 Quetiapine [Seroquel*] 50 mg PO 2100 08/13/23 Quetiapine [Seroquel*] 100 mg PO 0900 08/13/23 Quetiapine [Seroquel*] 100 mg PO 1700 08/13/23 Zolpidem Tartrate [Ambien*] 10 mg PO BEDTIME 08/13/23 methIMAzole [Tapazole*] 5 mg PO DAILY 08/13/23 Physician Discharge Instructions: Roya Anne presented to the ED with chief complaint severe abdominal pain associated with vomitting. She has tolerated CLD to decrease the nausea. Pain is better controlled, lipase has decreased considerably. Please follow up with gastroenterology for further management. 1. Please call and schedule a follow-up appointment with your PCP in 3-5 days - Please follow-up with your PCP for medication refills/adjustments 2. Please call and schedule a follow-up appointment with Dr. Kemp (gastroenterology) in 3-5 days 3. Continue diabetic diet 4. No activity restrictions 5. Return to the ED if symptoms worsen New medications Diet: ADA Followup: Jason Kemp MD [ASSOCIATE-ACTIVE - CAN ADMIT] - Scottie Rodriguez MD [Primary Care Provider] -
[2023-08-14 14:50] VITALS: O2SAT 98
== END 2023-08-14 17:20 | disposition home or self-care (01) | DRG 439 ==
LOC: ER 07:48 → ERHOLD 10:16 → 4TH 15:14
PROVIDERS: ADMIT Internal Medicine; ATTEND Internal Medicine
DX: K85.90 Acute pancreatitis without necrosis or infection, unspecified (principal); E87.1 Hypo-osmolality and hyponatremia; E86.0 Dehydration; F20.9 Schizophrenia, unspecified; E11.65 Type 2 diabetes mellitus with hyperglycemia; E11.40 Type 2 diabetes mellitus with diabetic neuropathy, unspecified; E78.5 Hyperlipidemia, unspecified; F31.9 Bipolar disorder, unspecified; E03.9 Hypothyroidism, unspecified; G89.29 Other chronic pain; M54.2 Cervicalgia; Z79.4 Long term (current) use of insulin; Z90.49 Acquired absence of other specified parts of digestive tract; Z79.899 Other long term (current) drug therapy
CPT/HCPCS: 36415; 71045; 74177; 80048; 80053; 80061; 81001; 82947; 83690; 83735; 84100; 85025; 96361; 96374; 96375; 99284; J1170; J1650; J1815; J2270; J2405; J3480; J7030; Q9967

== ENCOUNTER 2024-03-22 13:02 | Observation (INO) | payer OTHER ==
--- OUTSIDE RECORDS SUMMARY | 2024-03-22 13:10 | XMS REPORT | Continuity of Care Document ---
Author Name Unknown Address [address] [facility] [address] [place] [address] [facility] thconnect Address [address] [facility] [address] [place] [address] Care Team Providers Care Compressed Yeast Supervisor Name Role Phone Mary Ann Garduno Primary Care Physician [phone] Kael Mccall Attending Clinician Unavailable TIM CLARKE Attending Clinician FLORECITA Pettit Attending Clinician Val Ruiz MD Attending Clinician [phone] Florecita Atkins MD Attending Clinician + [phone] JERAD ORTEGA Attending Clinician Unavailable VAL PRESTON Attending Clinician Unavailable Blanquita WHITEHEAD, Bindu Haley Attending Clinician UnavailAmarilys Gutierres Attending Clinician [phone] Vincenzo Sanches MD Attending Clinician [phone] Val Preston MD Attending Clinician [phone] Florecita Atkins MD Attending Clinician [phone] Amarilys Berrios Attending Clinician [phone] AMARILYS JEREZ Attending Clinician Unavailable Vincenzo Sanches MD Attending Clinician [phone] Lab, Ang - Db Attending Clinician Unavailable Doctor Unassigned, [place] Attending Clinician U navailable NINI MENDENHALL Attending Clinician Unavailable Nini Granados Attending Clinician [phone] VINCENZO SANCHES Attending Clinician UnavailRAUL Oro Attending Clinician Unavailable Aman ROGERS, Eduardo Attending Clinician [phone] Gaston ROGERS, Tony Attending Clinician [phone] TONY FELDMAN Attending Clinician Unavailable [email or web address]_S Attending Clinician Unavailsudha NAVARRO, Princess Attending Clinician Unavaildannielle Callahan MA, Bernadine James Attending Clinician Unavaila rowena LIZARRAGA, PRINCESS Attending Clinician Unavailable Joselito ROGERS, [place] Attending Clinician UnavailMODESTO Morris Attending Clinician Unavailable Santana WHITEHEAD, Javier Attending Clinician Unavailab AMIRA Hollingsworth Attending Clinician Unavailab mynor NAVARRO, Amira Zhang Attending Clinician + [phone] Juan WHITEHEAD, Tika Haley Attending Clinician Unavailab Arce, [facility] Attending Clinicia n Unavailable SOFÍA PURCELL Attending Clinician Unavailab TEA Hardy Attending Clinician Unavailable ROSALINDA GHOSH Attending Clinician Unavaila rowena [email or web address]_S Admitting Clinician Unavaila rowena Payers Payer Name Policy Type Policy Number Effective Date Expirati on Date Source AET[employer] [place] DUAL COMPLETE CAP(HMO D-SNP OA) 7 [id number] 2023 00:00:00 [facility] STAR PLUS [id number] 2023 00:00:00 [place] DUAL CORDINATION MCARE O SNP [id number] 2023 00:00:00 MEDICAID OF [place] [id number] 2021 00:00:00 2023 00:00:00 [employer] STAR [id number] [employer] Preferred Medicare (HMO) 111 [id number] [facility] [place] PLUS/SELECT[employer]ARE [id number] 2014 00:00:00 Problems Condition Name Condition Details Condition Category Status Onset Date Resolution Date Last Treatment Date Treating Clinician Comments Source Type 1 diabetes mellitus with hyperglyce tami (multi HCC) Type 1 diabetes mellitus with hyperglyce tami (multi HCC) Disease Active 2023-04 0 00:00: 00 Alejandra Seybold - Externa l Lumbar pain Lumbar pain Disease Active 10-25 00:00: 00 [facility] Hepatitis C Hepatitis C Disease Active [facility] Bipolar 1 disorder Bipolar 1 disorder Disease Active [facility] Osteoarthr itis Osteoarthr itis Problem [facility] Insomnia Insomnia Problem [facility] Diabetic neuropathy Diabetic neuropathy Problem [facility] Diabetes mellitus without complicati on Diabetes DMII without complicati ons Problem [facility] Hyperlipid emia Hyperlipid emia Problem [facility] [id number] Irritable bowel syndrome with constipati on Problem [facility] [id number] Type 2 diabetes mellitus with other manager new product y complicati ons Problem [facility] [id number] Neuropathy Problem [facility] Mixed hyperlipid emia Mixed hyperlipid emia Problem [facility] Anemia Anemia Problem [facility] [id number] Gastroesop hageal reflux disease without esophagiti s Problem [facility] Excessive and frequent menstruati on Heavy menses Problem [facility] Schizophre danilo Other schizophre danilo Problem [facility] [id number] Type 2 diabetes mellitus with hyperglyce tami Problem [facility] [id number] [facility] current use of insulin Problem [facility] [id number] Gastropare sis Problem [facility] Hemoptysis Hemoptysis Disease Resolve d 08-31 00:00: 00 2019-08-27 00:00:00 2019-08-27 09:28:38 [facility] Hematemesi s Hematemesi s Disease Resolve d 2006-0 8 00:00: 00 2019-08-27 00:00:00 2019-08-27 09:28:40 [facility] Allergies, Adverse Reactions, Alerts Allergy Name Allergy Type Status Severity Reaction(s) Onset Date Inactive Date Treating Clinician Comments Source NO KNOWN ALLERGIE S Drug Class Active [facility] Family History Family Member Diagnosis Comments Start Date Stop Date Sourc e Maternal grandmother Cancer [facility] Social History Social Habit Start Date Stop Date Quantity Comments Source Gender identity [facility] History of tobacco use Cigarette Smoker [facility] ASSERTION Possible Alejandra Valverde - External Sexual orientation Hemant Valverde - External Sex 2024-01-09 20:44:26 2024-01-09 20:44:26 Female (finding) Alejandra Valverde - External Alcoholic beverage intake 2023-10-26 00:00:00 2023-10-26 00:00:00 Current non-drinker of alcohol (finding) [facility] Cigarettes smoked current (pack per day) - Reported 2023-10-03 00:00:00 2023-10-03 00:00:00 [facility] Cigarette pack-years 2023-10-03 00:00:00 2023-10-03 00:00:00 [facility] Tobacco use and exposure 2023-10-03 00:00:00 2023-10-03 00:00:00 Former smokeless tobacco user [facility] Alcohol intake 2023-08-20 00:00:00 2023-08-20 00:00:00 Current non-drinker of alcohol (finding) [facility] History of Social function 2023-07-20 00:00:00 2023-07-20 00:00:00 [facility] Exposure to SARS-CoV-2 (event) 2022-07-23 00:00:00 2022-08-02 10:00:00 Not sure [facility] Sex assigned at 1970 00:00:00 1970 00:00:00 Alejandra Valverde - External Smoking Status Start Date Stop Date Source Tobacco smoking consumption unknown Alejandra Valverde - External Ex-smoker 2023-10-03 00:00:00 2023-10-03 00:00:00 [facility] Medications Ordered Medication Name Filled Medication Name Start Date Stop Date Current Medication? Ordering Clinician Indication Dosage Frequency Signature (SIG) Comments Components Source linaCLOtide (LINZESS) 290 mcg Cap 2023-04 00:00: 00 Yes [id number] TAKE 1 CAPSULE BY MOUTH ONCE DAILY 30 MINUTES BEFORE THE FIRST MEAL OF THE DAY [facility] ZOLPIDEM 10 mg tablet 2023-04 00:00: 00 Yes [id number] 10mg TAKE 1 TABLET BY MOUTH EVERY DAY AT BEDTIME NEEDED FOR INSOMNIA [facility] METOCLOPRAM DANIEL HCL 10 mg tablet 2023-04 00:00: 00 Yes [id number] TAKE 1 TABLET BY MOUTH IN THE MORNING AT NOON AND IN THE EVENING [facility] ZOLPIDEM 10 mg tablet 2023-04 00:00: 00 03-05 00:00 :00 No [id number] 10mg TAKE 1 TABLET BY MOUTH AT BEDTIME NEEDED FOR INSOMNIA [facility] DEXCOM G6 TRANSMITTER Barb 2023-04 0 00:00: 00 Yes [id number] 9101 CHANGE every three MONTHS as directed with G6 Sensor [facility] OMNIPOD 5 G6 PODS, GEN 5, Crtg 01-22 00:00: 00 Yes CHANGE pod every THREE DAYS as directed. [facility] ZOLPIDEM 10 mg tablet 01-03 00:00: 00 02-05 00:00 :00 No [id number] 10mg TAKE 1 TABLET BY MOUTH EVERY DAY AT BEDTIME NEEDED FOR INSOMNIA. [facility] DICYCLOMINE 20 mg tablet 12-25 00:00: 00 Yes [id number] 20mg TAKE 1 TABLET BY MOUTH IN THE MORNING AND IN THE EVENING [facility] metoclopram daniel HCl 10 mg tablet 12-22 00:00: 00 02-20 00:00 :00 No [id number] 10mg Take 1 tablet by mouth in the morning and 1 tablet at noon and 1 tablet in the evening. [facility] albuterol 90 mcg/actuati on inhaler 12-18 00:00: 00 Yes INHALE 1 TO 2 PUFFS BY MOUTH EVERY 4 TO 6 HOURS NEEDED [facility] linaCLOtide (LINZESS) 290 mcg Cap 12-13 00:00: 00 03-07 00:00 :00 No [id number] TAKE 1 CAPSULE BY MOUTH ONCE DAILY 30 MINUTES BEFORE THE FIRST MEAL OF THE DAY [facility] GABAPENTIN 300 mg capsule 12-06 00:00: 00 Yes [id number] TAKE 1 CAPSULE BY MOUTH IN THE MORNING AND IN THE EVENING [facility] Alcohol Swabs PadM 12-05 00:00: 00 12-05 00:00 :00 No Use 1 new pad to clean site before injecting UP TO SIX TIMES DAILY & TWICE DAILY before insulin injection (TOTAL 8 TIMES A DAY) [facility] COMFORT EZ PEN NEEDLES 31 gauge x 1/4" Ndle 12-04 00:00: 00 Yes Use 1 new pen needle with insulin pen injector to inject insulin subcutaneo usly TWICE DAILY [facility] zolpidem 10 mg tablet 11-27 00:00: 00 01-03 00:00 :00 No [id number] 10mg Take 1 tablet by mouth at bedtime as needed for Insomnia. [facility] insulin degludec (TRESIBA FLEXTOUCH U-200) 200 unit/mL (3 mL) InPn 11-08 00:00: 00 Yes [id number] 9101 60U inject 60 Units under the skin in the morning. [facility] insulin lispro (HUMALOG KWIKPEN INSULIN) 100 unit/mL pen injector 11-08 00:00: 00 Yes [id number] 9101 12U inject 12 Units under the skin in the morning and 12 Units at noon and 12 Units in the evening. inject before meals. [facility] Blood-Gluco se MeterKeshawn (DEXCOM G7 ANIMAL DAMAGE CONTROL AGENT) [facility] [place] [place] 11-08 00:00: 00 Yes [id number] 9101 Use as directed once daily [facility] zolpidem 10 mg tablet 11-02 00:00: 00 11-27 00:00 :00 No [id number] 10mg Take 1 tablet by mouth at bedtime as needed for Insomnia. [facility] albuterol 90 mcg/actuati on inhaler 11-01 00:00: 00 12-18 00:00 :00 No INHALE 1 TO 2 PUFFS EVERY 4 TO 6 HOURS NEEDED [facility] zolpidem 10 mg tablet 10-31 00:00: 00 11-02 00:00 :00 No [id number] 10mg TAKE 1 TABLET BY MOUTH EVERY DAY AT BEDTIME NEEDED FOR INSOMNIA [facility] ALCOHOL SWABS PadM 10-09 00:00: 00 12-05 00:00 :00 No Use to clean area of skin before testing UP TO SIX TIMES DAILY & TWICE DAILY before insulin injection (TOTAL 8 TIMES A DAY) [facility] lisinopriL 2.5 mg tablet 10-03 00:00: 00 Yes [id number] 2.5mg Take 1 tablet by mouth in the morning. [facility] medroxyPROG ESTERone (DEPO-PROVE RA) 150 mg/mL injection 10-02 14:46: 31 10-02 00:00 :00 No 150mg 150 mg by Intramuscu lar route every 3 (three) months. [facility] Blood-Gluco se Sensor (DEXCOM G7 SENSOR) Barb 10-02 00:00: 00 Yes [id number] 9101 Use as directed every 10 days [facility] linaCLOtide (LINZESS) 290 mcg Cap 10-02 00:00: 00 12-06 00:00 :00 No [id number] TAKE 1 CAPSULE BY MOUTH ONCE DAILY 30 MINUTES BEFORE THE FIRST MEAL OF THE DAY [facility] Blood-Gluco se Meter,Keshawn hurst (DEXCOM G7 ANIMAL DAMAGE CONTROL AGENT) [facility] [place] [place] 10-02 00:00: 00 11-06 00:00 :00 No [id number] 9101 Use as directed once daily [facility] insulin degludec (TRESIBA FLEXTOUCH U-200) 200 unit/mL (3 mL) InPn 10-02 00:00: 00 11-06 00:00 :00 No [id number] 9101 60U inject 60 Units under the skin in the morning. [facility] insulin lispro (HUMALOG KWIKPEN INSULIN) 100 unit/mL pen injector 10-02 00:00: 00 11-06 00:00 :00 No [id number] 9101 12U inject 12 Units under the skin in the morning and 12 Units at noon and 12 Units in the evening. inject before meals. [facility] dicyclomine 20 mg tablet 5-31 00:00: 00 12-25 00:00 :00 No [id number] 20mg TAKE 1 TABLET BY MOUTH IN THE MORNING AND IN THE EVENING [facility] gabapentin 300 mg capsule 5-24 00:00: 00 12-06 00:00 :00 No [id number] TAKE 1 CAPSULE BY MOUTH IN THE MORNING AND IN THE EVENING [facility] LISINOPRIL 5 mg tablet 5-06 00:00: 00 10-03 00:00 :00 No [id number] TAKE 1 TABLET BY MOUTH EVERY DAY [facility] FAMOTIDINE 40 mg tablet 30 00:00: 00 Yes [id number] TAKE 1 TABLET BY MOUTH TWICE A DAY IN THE MORNING AND IN THE EVENING [facility] FUROSEMIDE 20 mg tablet 430 00:00: 00 Yes [id number] 20mg TAKE 1 TABLET BY MOUTH EVERY OTHER DAY [facility] METOCLOPRAM DANIEL HCL 10 mg tablet 4-05 00:00: 00 12-22 00:00 :00 No [id number] TAKE 1 TABLET BY MOUTH THREE TIMES A DAY [facility] ALCOHOL PADS PadM 06-07 00:00: 00 10-09 00:00 :00 No Use alcohol pad to clean area of skin before testing UP TO SIX TIMES DAILY AND USE TWICE DAILY before insulin injection (total 8 TIMES A DAY) [facility] COMFORT EZ PEN NEEDLES 31 gauge x 1/4" Ndle 06-06 00:00: 00 10-02 00:00 :00 No Use with insulin pen to inject insulin subcutaneo usly TWICE DAILY [facility] ALBUTEROL 90 mcg/actuati on inhaler 06-03 00:00: 00 11-01 00:00 :00 No INHALE 1 TO 2 PUFFS EVERY 4 TO 6 HOURS NEEDED [facility] FUROSEMIDE 20 mg tablet 05-27 00:00: 00 08-22 00:00 :00 No [id number] 20mg TAKE 1 TABLET BY MOUTH EVERY OTHER DAY [facility] methIMAzole 5 mg tablet 05-04 00:00: 00 Yes [id number] 5mg Take 1 tablet by mouth in the morning. [facility] zolpidem 10 mg tablet 05-04 00:00: 00 10-31 00:00 :00 No [id number] 10mg Take 1 tablet by mouth at bedtime as needed for Insomnia. [facility] QUETIAPINE 300 mg tablet 2022-04 00:00: 00 Yes [id number] TAKE 1 TABLET BY MOUTH TWICE A DAY [facility] DICYCLOMINE 20 mg tablet 2022-04 00:00: 00 09-22 00:00 :00 No [id number] 20mg TAKE 1 TABLET BY MOUTH IN THE MORNING AND IN THE EVENING [facility] ALCOHOL PADS PadM 2022-04 00:00: 00 06-07 00:00 :00 No Use alcohol pad to clean area of skin before testing UP TO SIX TIMES DAILY AND USE TWICE DAILY before insulin injection (total 8 TIMES A DAY) [facility] COMFORT EZ PEN NEEDLES 31 gauge x 1/4" Ndle 2022-04 00:00: 06-06 00:00 :00 No Use with insulin pen to inject insulin subcutaneo usly TWICE DAILY [facility] METOCLOPRAM DANIEL HCL 10 mg tablet 2022-04 0-31 00:00: 00 07-28 00:00 :00 No [id number] TAKE 1 TABLET BY MOUTH THREE TIMES A DAY [facility] FAMOTIDINE 40 mg tablet 2022-04 0 00:00: 00 08-22 00:00 :00 No [id number] 40mg TAKE 1 TABLET BY MOUTH IN THE MORNING AND IN THE EVENING [facility] FUROSEMIDE 20 mg tablet 2022-04 0- 00:00: 00 05-27 00:00 :00 No [id number] 20mg TAKE 1 TABLET BY MOUTH EVERY OTHER DAY [facility] atorvastati n 10 mg tablet 01-13 00:00: 00 Yes [id number] Take 1 tablet by mouth everyday at bedtime. Must be seen on 02/21/23 for additional refills [facility] METHIMAZOLE 5 mg tablet 01-13 00:00: 00 05-04 00:00 :00 No [id number] TAKE 1 TABLET BY MOUTH EVERY DAY [facility] FAMOTIDINE 40 mg tablet 12-30 00:00: 00 02-08 00:00 :00 No [id number] 40mg TAKE 1 TABLET BY MOUTH IN THE MORNING AND IN THE EVENING [facility] flash glucose scanning reader (FREESTYLE DOM 2 READER) [facility] [place] [place] 11-19 00:00: 00 10-02 00:00 :00 No 1{each} 1 Each CONTINUOUS . Use as directed for DX E10.65 [facility] flash glucose sensor (FREESTYLE DOM 2 SENSOR) Kit 11-19 00:00: 00 10-02 00:00 :00 No Use as directed for DX E10.65 [facility] Blood-Gluco se Meter,Keshawn hurst (DEXCOM G6 ANIMAL DAMAGE CONTROL AGENT) [facility] [place] [place] 11-18 00:00: 00 10-02 00:00 :00 No Use as directed to check blood sugars dx E10.65 [facility] Blood-Gluco se Sensor (DEXCOM G6 SENSOR) Barb 11-18 00:00: 00 10-02 00:00 :00 No Use as directed to check blood sugars for dx E10.65 [facility] Blood-Gluco se Transmitter (DEXCOM G6 TRANSMITTER ) Barb 11-18 00:00: 00 10-02 00:00 :00 No Use as directed to check blood sugars for dx E10.65 [facility] methIMAzole 5 mg tablet 10-14 00:00: 00 01-13 00:00 :00 No [id number] TAKE 1 TABLET BY MOUTH EVERY DAY [facility] METOCLOPRAM DANIEL HCL 10 mg tablet 10-13 00:00: 00 02-22 00:00 :00 No [id number] TAKE 1 TABLET BY MOUTH THREE TIMES A DAY [facility] atorvastati n 10 mg tablet 10-01 00:00: 00 01-13 00:00 :00 No [id number] TAKE 1 TABLET BY MOUTH EVERYDAY AT BEDTIME [facility] FUROSEMIDE 20 mg tablet 09-23 00:00: 00 01-24 00:00 :00 No [id number] 20mg TAKE 1 TABLET BY MOUTH EVERY OTHER DAY [facility] famotidine 40 mg tablet -14 00:00: 00 12-30 00:00 :00 No [id number] 40mg TAKE 1 TABLET BY MOUTH IN THE MORNING AND 1 TABLET IN THE EVENING. [facility] Blood-Gluco se Sensor (DEXCOM G6 SENSOR) Barb 09-03 00:00: 00 11-18 00:00 :00 No Use as directed to check blood sugars for dx E10.65 [facility] gabapentin 300 mg capsule 09-01 00:00: 00 Yes [id number] 300mg Take 1 capsule by mouth in the morning and 1 capsule in the evening. [facility] zolpidem 10 mg tablet 09-01 00:00: 00 05-04 00:00 :00 No [id number] 10mg Take 1 tablet by mouth at bedtime as needed for Insomnia. [facility] dicyclomine 20 mg tablet 09-01 00:00: 00 03-26 00:34 :21 No [id number] 20mg Take 1 tablet by mouth in the morning and 1 tablet in the evening. [facility] LISINOPRIL 5 mg tablet 08-29 00:00: 00 08-28 00:00 :00 No [id number] TAKE 1 TABLET BY MOUTH EVERY DAY [facility] Blood-Gluco se Meter,Keshawn nuous (DEXCOM G6 ANIMAL DAMAGE CONTROL AGENT) [facility] [place] [place] 08-23 00:00: 00 11-18 00:00 :00 No Use as directed to check blood sugars dx E10.65 [facility] Blood-Gluco se Transmitter (DEXCOM G6 TRANSMITTER ) Barb 08-23 00:00: 00 11-18 00:00 :00 No Use as directed to check blood sugars for dx E10.65 [facility] FUROSEMIDE 20 mg tablet 08-19 00:00: 00 09-23 00:00 :00 No [id number] 20mg TAKE 1 TABLET BY MOUTH EVERY OTHER DAY [facility] Blood-Gluco se Meter,Keshawn nuous (DEXCOM G6 ANIMAL DAMAGE CONTROL AGENT) [facility] [place] [place] 08-17 00:00: 00 08-23 00:00 :00 No Use as directed to check blood sugars dx E10.65 [facility] Blood-Gluco se Transmitter (DEXCOM G6 TRANSMITTER ) Barb 08-17 00:00: 00 08-23 00:00 :00 No Use as directed to check blood sugars for dx E10.65 [facility] Alcohol Swabs PadM 08-14 00:00: 00 03-07 00:00 :00 No Use alcohol pad to clean area of skin before testing UP TO SIX TIMES DAILY AND USE TWICE DAILY before insulin injection (total EIGHT TIMES A ONE TIME A DAY) [facility] LINZESS 290 mcg Cap 12 00:00: 00 10-02 00:00 :00 No [id number] TAKE 1 CAPSULE BY MOUTH ONCE DAILY 30 MINUTES BEFORE THE FIRST MEAL OF THE DAY [facility] Blood-Gluco se Sensor (DEXCOM G6 SENSOR) Barb 08-04 00:00: 00 09-03 00:00 :00 No Use as directed to check blood sugars for dx E10.65 [facility] Blood-Gluco se Meter,Keshawn nuous (DEXCOM G6 ANIMAL DAMAGE CONTROL AGENT) Misc 08-04 00:00: 00 08-17 00:00 :00 No Use as directed to check blood sugars dx E10.65 [facility] Blood-Gluco se Transmitter (DEXCOM G6 TRANSMITTER ) Barb 08-04 00:00: 00 08-17 00:00 :00 No Use as directed to check blood sugars for dx E10.65 [facility] zolpidem 10 mg tablet -11 00:00: 00 09-01 00:00 :00 No [id number] 10mg Take 1 tablet by mouth at bedtime as needed for Insomnia. [facility] FUROSEMIDE 20 mg tablet 4-03 00:00: 00 08-19 00:00 :00 No [id number] 20mg TAKE 1 TABLET BY MOUTH EVERY OTHER DAY [facility] FUROSEMIDE 20 mg tablet 3-06 00:00: 00 Yes [id number] 20mg TAKE 1 TABLET BY MOUTH EVERY OTHER DAY [facility] DICYCLOMINE 20 mg tablet 2-10 00:00: 00 09-01 00:00 :00 No [id number] 20mg TAKE 1 TABLET BY MOUTH IN THE MORNING AND 1 TABLET IN THE EVENING. [facility] FUROSEMIDE 20 mg tablet 2-10 00:00: 00 06-28 00:00 :00 No [id number] 20mg TAKE 1 TABLET BY MOUTH EVERY OTHER DAY [facility] Insulin [place], Disposable, (BD ULTRAFINE III MINI PEN) 31 gauge x 3/16" Ndle 05-17 00:00: 00 Yes [id number] 9101 USE TO INJECT INSULIN 5 TIMES DAILY. DX:E11.65 [facility] Insulin [place], Disposable, (BD ULTRAFINE III MINI PEN) 31 gauge x 3/16" Ndle 05-17 00:00: 00 10-02 00:00 :00 No [id number] 9101 USE TO INJECT INSULIN 5 TIMES DAILY. DX:E11.65 [facility] METOCLOPRAM DANIEL HCL 10 mg tablet 05-17 00:00: 00 10-13 00:00 :00 No TAKE 1 TABLET BY MOUTH THREE TIMES A DAY [facility] LISINOPRIL 10 mg tablet 05-11 00:00: 00 10-02 00:00 :00 No TAKE 1 TABLET BY MOUTH ONCE DAILY [facility] famotidine 40 mg tablet 2021-04 00:00: 00 09-05 00:00 :00 No [id number] 40mg Take 1 tablet by mouth in the morning and 1 tablet in the evening. [facility] ondansetron 4 mg tablet 2021-04 00:00: 00 Yes [id number] 4mg Take 1 tablet by mouth every 12 (twelve) hours. [facility] insulin lispro (HUMALOG KWIKPEN INSULIN) 100 unit/mL pen injector 2021-04 00:00: 00 Yes [id number] 9101 10U inject 10 Units under the skin in the morning and 10 Units at noon and 10 Units in the evening. inject before meals. [facility] Insulin NPH-Regular Human Rec (HUMULIN 70/30 U-100 KWIKPEN) 100 unit/mL (70-30) injection 2021-04 00:00: 00 10-02 00:00 :00 No [id number] 9101 INJECT 40 UNITS IN THE IN THE MORNING AND 40 UNITS IN IN THE EVENING [facility] insulin lispro (HUMALOG KWIKPEN INSULIN) 100 unit/mL pen injector 2021-04 00:00: 00 10-02 00:00 :00 No [id number] 9101 10U inject 10 Units under the skin in the morning and 10 Units at noon and 10 Units in the evening. inject before meals. [facility] atorvastati n 10 mg tablet 2021-04 00:00: 00 10-01 00:00 :00 No [id number] 10mg Take 1 tablet by mouth at bedtime. [facility] Insulin [place], Disposable, (BD ULTRAFINE III MINI PEN) 31 gauge x 3/16" Ndle 2021-04 00:00: 00 05-17 00:00 :00 No [id number] 9101 USE TO INJECT INSULIN 5 TIMES DAILY. DX:E11.65 [facility] FUROSEMIDE 20 mg tablet 2021-0412 00:00: 00 06-04 00:00 :00 No [id number] 20mg TAKE 1 TABLET BY MOUTH EVERY OTHER DAY [facility] TAKE 1 TABLET BY MOUTH TWICE A DAY 2021-04 00:00: 00 No QUETIAPINE 300 mg tablet 2021-04 0-03 00:00: 00 03-26 00:34 :21 No [id number] TAKE 1 TABLET BY MOUTH TWICE A DAY [facility] TAKE 1 TABLET BY MOUTH EVERY DAY AT BEDTIME NEEDED FOR INSOMNIA -29 00:00: 00 No ALBUTEROL 90 mcg/actuati on inhaler 01-18 00:00: 00 06-03 00:00 :00 No INHALE 1 TO 2 PUFFS BY MOUTH EVERY 4 TO 6 HOURS NEEDED [facility] gabapentin 300 mg capsule 9-20 00:00: 00 09-01 00:00 :00 No [id number] 300mg Take 1 capsule by mouth in the morning and 1 capsule in the evening. [facility] zolpidem 10 mg tablet 9-20 00:00: 00 08-03 00:00 :00 No [id number] 10mg Take 1 tablet by mouth at bedtime as needed for Insomnia. [facility] dicyclomine 20 mg tablet 01-12 00:00: 00 06-04 00:00 :00 No [id number] 20mg Take 1 tablet by mouth in the morning and 1 tablet in the evening. [facility] pantoprazol e 40 mg EC tablet 01-12 00:00: 00 03-11 00:00 :00 No [id number] 40mg Take 1 tablet by mouth in the morning. [facility] ATORVASTATI N 10 mg tablet 01-11 00:00: 00 02-26 00:00 :00 No [id number] TAKE 1 TABLET BY MOUTH EVERYDAY AT BEDTIME [facility] FUROSEMIDE 20 mg tablet 01-11 00:00: 00 02-03 00:00 :00 No [id number] 20mg TAKE 1 TABLET BY MOUTH EVERY OTHER DAY [facility] DEXLANSOPRA ZOLE 60 mg capsule 12-30 00:00: 00 01-12 00:00 :00 No [id number] TAKE 1 CAPSULE BY MOUTH EVERY DAY [facility] TAKE 1 TABLET BY MOUTH EVERY DAY AT BEDTIME NEEDED FOR INSOMNIA 12-17 00:00: 00 No 10 gabapentin 300 mg capsule 12-17 00:00: 00 01-12 00:00 :00 No 300mg Take 300 mg by mouth in the morning and 300 mg in the evening. [facility] FUROSEMIDE 20 mg tablet 12-14 00:00: 00 01-11 00:00 :00 No [id number] 20mg TAKE 1 TABLET BY MOUTH EVERY OTHER DAY [facility] TAKE 1 TABLET BY MOUTH TWICE A DAY 12-09 00:00: 00 No 250 &lt 0 8- 00:00: 00 No 10 &lt 0 8-10 00:00: 00 No &lt 0 8-04 00:00: 00 No 60 TAKE 1 CAPSULE BY MOUTH TWICE A DAY 0 11-24 00:00: 00 No 300 Novolog Flexpen U-100 Insulin aspart 100 unit/mL (3 mL) subcutaneou s 11-17 00:00: 00 No 10(3 mL) lisinopril 5 mg tablet 11-17 00:00: 00 No 1mg gabapentin 300 mg capsule 11-17 00:00: 00 No 1mg TAKE 1 TABLET BY MOUTH EVERY DAY AT BEDTIME NEEDED FOR INSOMNIA 11-17 00:00: 00 No 10 INJECT 28 UNITS IN THE IN THE MORNING AND 25 UNITS IN IN THE EVENING 11-17 00:00: 00 No TAKE 1 TABLET BY MOUTH TWICE A DAY 11-17 00:00: 00 No 300 TAKE 1 CAPSULE BY MOUTH EVERY DAY 11-17 00:00: 00 No 150 Dose Unknown 11-17 00:00: 00 No 4 TAKE 1 TABLET BY MOUTH EVERY OTHER DAY 11-17 00:00: 00 No 20 INHALE 1 TO 2 PUFFS BY MOUTH EVERY 4 TO 6 HOURS NEEDED 11-17 00:00: 00 No &lt 11-17 00:00: 00 No 300 LISINOPRIL 5 mg tablet 11-16 00:00: 00 08-29 22:39 :17 No [id number] TAKE 1 TABLET BY MOUTH EVERY DAY [facility] FUROSEMIDE 20 mg tablet 11-16 00:00: 00 12-14 00:00 :00 No [id number] 20mg TAKE 1 TABLET BY MOUTH EVERY OTHER DAY [facility] TAKE 1 TABLET BY MOUTH TWICE A DAY 11-03 00:00: 00 No 20 Dose Unknown 11-03 00:00: 00 No ZOLPIDEM 10 mg tablet 11-03 00:00: 00 01-12 00:00 :00 No [id number] TAKE 1 TABLET BY MOUTH EVERY DAY AT BEDTIME NEEDED FOR INSOMNIA [facility] metoclopram daniel 10 mg tablet 11-02 [...] 10-29 00:00: 00 01-25 00:00 :00 No [id number] TAKE 1 TABLET BY MOUTH TWICE A DAY [facility] Humulin 70/30 U-100 Insulin KwikPen 100 [...] MOUTH EVERY 4 TO 6 HOURS NEEDED [facility] linaCLOtide (LINZESS) 290 mcg Cap 10-19 00:00: 00 08-04 00:00 :00 No [id number] TAKE 1 CAPSULE BY MOUTH ONCE DAILY 30 MINUTES BEFORE THE FIRST MEAL OF THE DAY [facility] simethicone 125 mg chewable tablet 10-02 00:00: 00 No 1mg gabapentin 300 mg capsule 10-02 00:00: 00 No 1mg Dose Unknown 10-02 00:00: 00 No Dose Unknown 10-02 00:00: 00 No TAKE 1 TABLET BY MOUTH TWICE A DAY 10-02 00:00: 00 No INHALE 1 TO 2 PUFFS BY MOUTH EVERY 4 TO 6 HOURS NEEDED 10-02 00:00: 00 No &lt 10-02 00:00: 00 No TAKE 1 TABLET BY MOUTH EVERY DAY AT BEDTIME NEEDED FOR INSOMNIA 10-02 00:00: 00 No &lt 10-02 00:00: 00 No TAKE 1 CAPSULE BY MOUTH THREE TIMES A DAY 10-02 00:00: 00 No Insulin NPH-Regular Human Rec (HUMULIN 70/30 U-100 KWIKPEN) 100 unit/mL (70-30) injection 09-27 00:00: 00 02-26 00:00 :00 No [id number] 9101 INJECT 28 UNITS IN THE IN THE MORNING AND 25 UNITS IN IN THE EVENING [facility] LISINOPRIL 10 mg tablet 09-08 00:00: 00 05-11 00:00 :00 No TAKE 1 TABLET BY MOUTH ONCE DAILY [facility] Insulin [place], Disposable, (BD ULTRAFINE III MINI PEN) 31 gauge x 3/16" Ndle 09-08 00:00: 00 02-26 00:00 :00 No USE TO INJECT INSULIN 2 TIMES DAILY. DX:E11.65 [facility] Insulin Syringe-Nee dle U-100 1 mL 27 gauge x 5/8" Syrg 08-18 00:00: 00 Yes Use as directed to inject insulin 4 times daily for E10.65 [facility] Insulin Syringe-Nee dle U-100 1 mL 27 gauge x 5/8" Syrg 08-18 00:00: 00 10-02 00:00 :00 No Use as directed to inject insulin 4 times daily for E10.65 [facility] Blood-Gluco se Sensor (DEXCOM G6 SENSOR) Barb 07-29 00:00: 00 08-04 00:00 :00 No Use as directed to check blood sugars for dx E10.65 [facility] Blood-Gluco se Transmitter (DEXCOM G6 TRANSMITTER ) Barb 07-29 00:00: 00 08-04 00:00 :00 No Use as directed to check blood sugars for dx E10.65 [facility] Blood-Gluco se Meter,Keshawn berylous (DEXCOM G6 ANIMAL DAMAGE CONTROL AGENT) [facility] [place] 07-29 00:00: 00 08-04 00:00 :00 No Use as directed to check blood sugars dx E10.65 [facility] flash glucose sensor (FREESTYLE DOM 2 SENSOR) Kit 07-27 00:00: 00 08-02 00:00 :00 No [id number] 9101 1{kit} 1 Kit every 14 (fourteen) days. E10.65 [facility] pregabalin 100 mg capsule 07-25 00:00: 00 01-12 00:00 :00 No [id number] 9101 100mg Take 1 capsule by mouth 2 (two) times daily. [facility] flash glucose scanning reader (FREESTYLE DOM 2 READER) [facility] [place] [place] 3- 00:00: 00 08-02 00:00 :00 No [id number] 9101 1{each} 1 Each daily. [facility] methIMAzole 5 mg tablet 2020-04- 00:00: 00 10-14 00:00 :00 No [id number] 5mg Take 1 tablet by mouth daily. [facility] insulin NPH and regular human 70-30 (HUMULIN 70/30 U-100 INSULIN) 100 unit/mL (70-30) injection 2020-04 00:00: 00 02-26 00:00 :00 No [id number] 9101 25 units wtice daily before meals. Max daily dose of 70 units [facility] atorvastati n (LIPITOR) 10 mg tablet 2020-04 00:00: 00 01-11 00:00 :00 No [id number] 10mg Take 1 tablet by mouth at bedtime. [facility] silver sulfADIAZIN E (SILVADENE) 1 % cream 12-24 00:00: 00 Yes [id number] Apply to area(s) 2 (two) times daily. [facility] metoclopram daniel HCl 5 mg tablet 12-16 00:00: 00 08-02 00:00 :00 No [id number] 5mg Take 1 tablet by mouth before meals. [facility] dicyclomine 20 mg tablet 12-16 00:00: 00 01-12 00:00 :00 No [id number] 20mg Take 1 tablet by mouth 2 (two) times daily. [facility] Dexlansopra zole (DEXILANT) 60 mg capsule 12-16 00:00: 00 12-30 00:00 :00 No [id number] 60mg Take 1 capsule by mouth daily. [facility] naproxen sodium (ALEVE) 220 mg tablet 2019-04 14:52: 17 Yes 220mg Take 220 mg by mouth 2 (two) times daily with meals. [facility] medroxyPROG ESTERone (DEPO-PROVE RA) 150 mg/mL injection 10-01 11:49: 34 Yes 150mg 150 mg by Intramuscu lar route every 3 (three) months. [facility] Dexilant 60 mg capsule, delayed release [...] 1mg Amoxicillin 500 MG Amoxicillin 500 MG 12-27 00:00: 00 No 1{table t} TID Amoxicilli n 500 MG Dexilant 60 MG Dexilant 60 MG 11-16 00:00: 00 No 1{capsu le} QD Dexilant 60 MG Lyrica 100 MG Lyrica 100 MG No [...] 1{table t} QD Cetirizine HCl 10 MG ProAir HFA 108 (90 Base) MCG/ACT ProAir HFA 108 (90 Base) MCG/ACT No 2{puffs _as_nee ded} QID ProAir HFA 108 (90 Base) MCG/ACT Lipitor 40 MG Lipitor 40 MG No [...] Free 6 MO-64 YRS 2022-01-12 00:00:00 Completed [facility] Influenza Virus Vaccine Quad IM, Preserv and ABX Free 6 MO-64 YRS 2022-01-12 00:00:00 Completed [facility] Influenza Virus Vaccine Quad IM, Preserv and ABX Free 6 MO-64 YRS 2022-01-12 00:00:00 Completed [facility] Influenza Virus Vaccine Quad IM, Preserv and ABX Free 6 MO-64 YRS 2022-01-12 00:00:00 Completed [facility] Influenza Virus Vaccine Quad IM, Preserv and ABX Free 6 MO-64 YRS 2022-01-12 00:00:00 Completed [facility] Influenza Virus Vaccine Quad IM, Preserv and ABX Free 6 MO-64 YRS 2022-01-12 00:00:00 Completed [facility] Influenza Virus Vaccine Quad IM, Preserv and ABX Free 6 MO-64 YRS 2022-01-12 00:00:00 Completed [facility] Influenza Virus Vaccine Quad IM, Preserv and ABX Free 6 MO-64 YRS 2022-01-12 00:00:00 Completed [facility] Influenza Virus Vaccine Quad IM, Preserv and ABX Free 6 MO-64 YRS 2022-01-12 00:00:00 Completed [facility] Influenza Virus Vaccine Quad IM, Preserv and ABX Free 6 MO-64 YRS 2022-01-12 00:00:00 Completed [facility] Influenza Virus Vaccine Quad IM, Preserv and ABX Free 6 MO-64 YRS 2022-01-12 00:00:00 Completed [facility] Influenza Virus Vaccine Quad IM, Preserv and ABX Free 6 MO-64 YRS 2022-01-12 00:00:00 Completed [facility] Influenza Virus Vaccine Quad IM, Preserv and ABX Free 6 MO-64 YRS 2022-01-12 00:00:00 Completed [facility] Influenza Virus Vaccine Quad IM, Preserv and ABX Free 6 MO-64 YRS 2022-01-12 00:00:00 Completed [facility] Influenza Virus Vaccine Quad IM, Preserv and ABX Free 6 MO-64 YRS 2022-01-12 00:00:00 Completed [facility] Influenza Virus Vaccine Quad IM, Preserv and ABX Free 6 MO-64 YRS 2022-01-12 00:00:00 Completed [facility] Influenza Virus Vaccine Quad IM, Preserv and ABX Free 6 MO-64 YRS 2022-01-12 00:00:00 Completed [facility] Influenza Virus Vaccine Quad IM, Preserv and ABX Free 6 MO-64 YRS 2022-01-12 00:00:00 Completed [facility] Influenza Virus Vaccine Quad IM, Preserv and ABX Free 6 MO-64 YRS 2022-01-12 00:00:00 Completed [facility] Influenza Virus Vaccine Quad IM, Preserv and ABX Free 6 MO-64 YRS 2022-01-12 00:00:00 Completed [facility] Influenza Virus Vaccine Quad IM, Preserv and ABX Free 6 MO-64 YRS 2022-01-12 00:00:00 Completed [facility] Influenza Virus Vaccine Quad IM, Preserv and ABX Free 6 MO-64 YRS 2022-01-12 00:00:00 Completed [facility] Influenza Virus Vaccine Quad IM, Preserv and ABX Free 6 MO-64 YRS 2022-01-12 00:00:00 Completed [facility] Influenza Virus Vaccine Quad IM, Preserv and ABX Free 6 MO-64 YRS 2022-01-12 00:00:00 Completed [facility] Influenza Virus Vaccine Quad IM, Preserv and ABX Free 6 MO-64 YRS 2022-01-12 00:00:00 Completed [facility] Influenza Virus Vaccine Quad IM, Preserv and ABX Free 6 MO-64 YRS 2022-01-12 00:00:00 Completed [facility] Influenza Virus Vaccine Quad IM, Preserv and ABX Free 6 MO-64 YRS 2022-01-12 00:00:00 Completed [facility] Influenza Virus Vaccine Quad IM, Preserv and ABX Free 6 MO-64 YRS 2022-01-12 00:00:00 Completed [facility] Influenza Virus Vaccine Quad IM, Preserv and ABX Free 6 MO-64 YRS 2022-01-12 00:00:00 Completed [facility] Influenza Virus Vaccine Quad IM, Preserv and ABX Free 6 MO-64 YRS 2022-01-12 00:00:00 Completed [facility] Influenza Virus Vaccine Quad IM, Preserv and ABX Free 6 MO-64 YRS 2022-01-12 00:00:00 Completed [facility] Influenza Virus Vaccine Quad IM, Preserv and ABX Free 6 MO-64 YRS 2022-01-12 00:00:00 Completed [facility] Influenza Virus Vaccine Quad IM, Preserv and ABX Free 6 MO-64 YRS 2022-01-12 00:00:00 Completed [facility] Influenza Virus Vaccine Quad IM, Preserv and ABX Free 6 MO-64 YRS 2022-01-12 00:00:00 Completed [facility] Influenza Virus Vaccine Quad IM, Preserv and ABX Free 6 MO-64 YRS 2022-01-12 00:00:00 Completed [facility] Influenza Virus Vaccine Quad IM, Preserv and ABX Free 6 MO-64 YRS 2022-01-12 00:00:00 Completed [facility] Influenza Virus Vaccine Quad IM, Preserv and ABX Free 6 MO-64 YRS 2022-01-12 00:00:00 Completed [facility] Influenza Virus Vaccine Quad IM, Preserv and ABX Free 6 MO-64 YRS 2022-01-12 00:00:00 Completed [facility] Influenza Virus Vaccine Quad IM, Preserv and ABX Free 6 MO-64 YRS 2022-01-12 00:00:00 Completed [facility] Influenza Virus Vaccine Quad IM, Preserv and ABX Free 6 MO-64 YRS 2022-01-12 00:00:00 Completed [facility] Influenza Virus Vaccine Quad IM, Preserv and ABX Free 6 MO-64 YRS 2022-01-12 00:00:00 Completed [facility] Influenza Virus Vaccine Quad IM, Preserv and ABX Free 6 MO-64 YRS 2022-01-12 00:00:00 Completed [facility] Influenza Virus Vaccine Quad IM, Preserv and ABX Free 6 MO-64 YRS 2022-01-12 00:00:00 Completed [facility] Influenza Virus Vaccine Quad IM, Preserv and ABX Free 6 MO-64 YRS 2022-01-12 00:00:00 Completed [facility] Influenza Virus Vaccine Quad IM, Preserv and ABX Free 6 MO-64 YRS 2022-01-12 00:00:00 Completed [facility] Influenza Virus Vaccine Quad IM, Preserv and ABX Free 6 MO-64 YRS 2022-01-12 00:00:00 Completed [facility] Influenza Virus Vaccine Quad IM, Preserv and ABX Free 6 MO-64 YRS 2022-01-12 00:00:00 Completed [facility] Influenza Virus Vaccine Quad IM, Preserv and ABX Free 6 MO-64 YRS 2022-01-12 00:00:00 Completed [facility] Influenza Virus Vaccine Quad IM, Preserv and ABX Free 6 MO-64 YRS 2022-01-12 00:00:00 Completed [facility] Influenza Virus Vaccine Quad IM, Preserv and ABX Free 6 MO-64 YRS 2022-01-12 00:00:00 Completed [facility] Influenza Virus Vaccine Quad IM, Preserv and ABX Free 6 MO-64 YRS 2022-01-12 00:00:00 Completed [facility] Influenza Virus Vaccine Quad IM, Preserv and ABX Free 6 MO-64 YRS 2022-01-12 00:00:00 Completed [facility] Influenza Virus Vaccine Quad IM, Preserv and ABX Free 6 MO-64 YRS 2022-01-12 00:00:00 Completed [facility] Influenza Virus Vaccine Quad IM, Preserv and ABX Free 6 MO-64 YRS 2022-01-12 00:00:00 Completed [facility] Influenza Virus Vaccine Quad IM, Preserv and ABX Free 6 MO-64 YRS 2022-01-12 00:00:00 Completed [facility] Influenza Virus Vaccine Quad IM, Preserv and ABX Free 6 MO-64 YRS 2022-01-12 00:00:00 Completed [facility] Influenza Virus Vaccine Quad IM, Preserv and ABX Free 6 MO-64 YRS 2022-01-12 00:00:00 Completed [facility] Influenza Virus Vaccine Quad IM, Preserv and ABX Free 6 MO-64 YRS 2022-01-12 00:00:00 Completed [facility] Influenza Virus Vaccine Quad IM, Preserv and ABX Free 6 MO-64 YRS 2022-01-12 00:00:00 Completed [facility] Influenza Virus Vaccine Quad IM, Preserv and ABX Free 6 MO-64 YRS 2022-01-12 00:00:00 Completed [facility] Influenza Virus Vaccine Quad IM, Preserv and ABX Free 6 MO-64 YRS 2022-01-12 00:00:00 Completed [facility] Influenza Virus Vaccine Quad IM, Preserv and ABX Free 6 MO-64 YRS 2022-01-12 00:00:00 Completed [facility] Influenza Virus Vaccine Quad IM, Preserv and ABX Free 6 MO-64 YRS 2022-01-12 00:00:00 Completed [facility] Influenza Virus Vaccine Quad IM, Preserv and ABX Free 6 MO-64 YRS 2022-01-12 00:00:00 Completed [facility] Influenza Virus Vaccine Quad IM, Preserv and ABX Free 6 MO-64 YRS 2022-01-12 00:00:00 Completed [facility] Influenza Virus Vaccine Quad IM, Preserv and ABX Free 6 MO-64 YRS 2022-01-12 00:00:00 Completed [facility] Influenza Virus Vaccine Quad IM, Preserv and ABX Free 6 MO-64 YRS 2022-01-12 00:00:00 Completed [facility] Influenza Virus Vaccine Quad IM, Preserv and ABX Free 6 MO-64 YRS 2022-01-12 00:00:00 Completed [facility] Influenza Virus Vaccine Quad IM, Preserv and ABX Free 6 MO-64 YRS 2022-01-12 00:00:00 Completed [facility] Influenza Virus Vaccine Quad IM, Preserv and ABX Free 6 MO-64 YRS (FLUCELVAX) 2022-01-12 00:00:00 Completed [facility] Influenza Virus Vaccine Quad IM, Preserv and ABX Free 6 MO-64 YRS (FLUCELVAX) 2022-01-12 00:00:00 Completed [facility] Influenza Virus Vaccine Quad IM, Preserv and ABX Free 6 MO-64 YRS (FLUCELVAX) 2022-01-12 00:00:00 Completed [facility] Influenza Virus Vaccine Quad IM, Preserv and ABX Free 6 MO-64 YRS (FLUCELVAX) 2022-01-12 00:00:00 Completed [facility] Influenza Virus Vaccine Quad IM, Preserv and ABX Free 6 MO-64 YRS (FLUCELVAX) 2022-01-12 00:00:00 Completed [facility] SARS-COV-2 COVID-19 VACCINE - (MODERNA) 2021-03-23 00:00:00 Completed [facility] SARS-COV-2 COVID-19 VACCINE - (MODERNA) 2021-03-23 00:00:00 Completed Moderna COVID-19 Vaccine 2021-03-23 00:00:00 Completed SARS-COV-2 COVID-19 PFIZER VACCINE 2020-08-23 00:00:00 Completed [facility] SARS-COV-2 COVID-19 PFIZER VACCINE 2020-08-23 00:00:00 Completed [facility] SARS-COV-2 COVID-19 PFIZER VACCINE 2020-08-23 00:00:00 Completed [facility] SARS-COV-2 COVID-19 PFIZER VACCINE 2020-08-23 00:00:00 Completed [facility] SARS-COV-2 COVID-19 PFIZER VACCINE 2020-08-23 00:00:00 Completed [facility] SARS-COV-2 COVID-19 PFIZER VACCINE 2020-08-23 00:00:00 Completed [facility] SARS-COV-2 COVID-19 PFIZER VACCINE 2020-08-23 00:00:00 Completed [facility] SARS-COV-2 COVID-19 PFIZER VACCINE 2020-08-23 00:00:00 Completed [facility] SARS-COV-2 COVID-19 PFIZER VACCINE 2020-08-23 00:00:00 Completed [facility] SARS-COV-2 COVID-19 PFIZER VACCINE 2020-08-23 00:00:00 Completed [facility] SARS-COV-2 COVID-19 PFIZER VACCINE 2020-08-23 00:00:00 Completed [facility] SARS-COV-2 COVID-19 PFIZER VACCINE 2020-08-23 00:00:00 Completed [facility] SARS-COV-2 COVID-19 PFIZER VACCINE 2020-08-23 00:00:00 Completed [facility] SARS-COV-2 COVID-19 PFIZER VACCINE 2020-08-23 00:00:00 Completed [facility] SARS-COV-2 COVID-19 PFIZER VACCINE 2020-08-23 00:00:00 Completed [facility] SARS-COV-2 COVID-19 PFIZER VACCINE 2020-08-23 00:00:00 Completed [facility] SARS-COV-2 COVID-19 PFIZER VACCINE 2020-08-23 00:00:00 Completed [facility] SARS-COV-2 COVID-19 PFIZER VACCINE 2020-08-23 00:00:00 Completed [facility] SARS-COV-2 COVID-19 PFIZER VACCINE 2020-08-23 00:00:00 Completed [facility] SARS-COV-2 COVID-19 PFIZER VACCINE 2020-08-23 00:00:00 Completed [facility] SARS-COV-2 COVID-19 PFIZER VACCINE 2020-08-23 00:00:00 Completed [facility] SARS-COV-2 COVID-19 PFIZER VACCINE 2020-08-23 00:00:00 Completed [facility] SARS-COV-2 COVID-19 PFIZER VACCINE 2020-08-23 00:00:00 Completed [facility] SARS-COV-2 COVID-19 PFIZER VACCINE 2020-08-23 00:00:00 Completed [facility] SARS-COV-2 COVID-19 PFIZER VACCINE 2020-08-23 00:00:00 Completed [facility] SARS-COV-2 COVID-19 PFIZER VACCINE 2020-08-23 00:00:00 Completed [facility] SARS-COV-2 COVID-19 PFIZER VACCINE 2020-08-23 00:00:00 Completed [facility] SARS-COV-2 COVID-19 PFIZER VACCINE 2020-08-23 00:00:00 Completed [facility] SARS-COV-2 COVID-19 PFIZER VACCINE 2020-08-23 00:00:00 Completed [facility] SARS-COV-2 COVID-19 PFIZER VACCINE 2020-08-23 00:00:00 Completed [facility] SARS-COV-2 COVID-19 PFIZER VACCINE 2020-08-23 00:00:00 Completed [facility] SARS-COV-2 COVID-19 PFIZER VACCINE 2020-08-23 00:00:00 Completed [facility] SARS-COV-2 COVID-19 PFIZER VACCINE 2020-08-23 00:00:00 Completed [facility] SARS-COV-2 COVID-19 PFIZER VACCINE 2020-08-23 00:00:00 Completed [facility] SARS-COV-2 COVID-19 PFIZER VACCINE 2020-08-23 00:00:00 Completed [facility] SARS-COV-2 COVID-19 PFIZER VACCINE 2020-08-23 00:00:00 Completed [facility] SARS-COV-2 COVID-19 PFIZER VACCINE 2020-08-23 00:00:00 Completed [facility] SARS-COV-2 COVID-19 PFIZER VACCINE 2020-08-23 00:00:00 Completed [facility] SARS-COV-2 COVID-19 PFIZER VACCINE 2020-08-23 00:00:00 Completed [facility] SARS-COV-2 COVID-19 PFIZER VACCINE 2020-08-23 00:00:00 Completed [facility] SARS-COV-2 COVID-19 PFIZER VACCINE 2020-08-23 00:00:00 Completed [facility] SARS-COV-2 COVID-19 PFIZER VACCINE 2020-08-23 00:00:00 Completed [facility] SARS-COV-2 COVID-19 PFIZER VACCINE 2020-08-23 00:00:00 Completed [facility] SARS-COV-2 COVID-19 PFIZER VACCINE 2020-08-23 00:00:00 Completed [facility] SARS-COV-2 COVID-19 PFIZER VACCINE 2020-08-23 00:00:00 Completed [facility] SARS-COV-2 COVID-19 PFIZER VACCINE 2020-08-23 00:00:00 Completed [facility] SARS-COV-2 COVID-19 PFIZER VACCINE 2020-08-23 00:00:00 Completed [facility] SARS-COV-2 COVID-19 PFIZER VACCINE 2020-08-23 00:00:00 Completed [facility] SARS-COV-2 COVID-19 PFIZER VACCINE 2020-08-23 00:00:00 Completed [facility] SARS-COV-2 COVID-19 PFIZER VACCINE 2020-08-23 00:00:00 Completed [facility] SARS-COV-2 COVID-19 PFIZER VACCINE 2020-08-23 00:00:00 Completed [facility] SARS-COV-2 COVID-19 PFIZER VACCINE 2020-08-23 00:00:00 Completed [facility] SARS-COV-2 COVID-19 PFIZER VACCINE 2020-08-23 00:00:00 Completed [facility] SARS-COV-2 COVID-19 PFIZER VACCINE 2020-08-23 00:00:00 Completed [facility] SARS-COV-2 COVID-19 PFIZER VACCINE 2020-08-23 00:00:00 Completed [facility] SARS-COV-2 COVID-19 PFIZER VACCINE 2020-08-23 00:00:00 Completed [facility] SARS-COV-2 COVID-19 PFIZER VACCINE 2020-08-23 00:00:00 Completed [facility] SARS-COV-2 COVID-19 PFIZER VACCINE 2020-08-23 00:00:00 Completed [facility] SARS-COV-2 COVID-19 PFIZER VACCINE 2020-08-23 00:00:00 Completed [facility] SARS-COV-2 COVID-19 PFIZER VACCINE 2020-08-23 00:00:00 Completed [facility] SARS-COV-2 COVID-19 PFIZER VACCINE 2020-08-23 00:00:00 Completed [facility] SARS-COV-2 COVID-19 PFIZER VACCINE 2020-08-23 00:00:00 Completed [facility] SARS-COV-2 COVID-19 PFIZER VACCINE 2020-08-23 00:00:00 Completed [facility] SARS-COV-2 COVID-19 PFIZER VACCINE 2020-08-23 00:00:00 Completed [facility] SARS-COV-2 COVID-19 PFIZER VACCINE 2020-08-23 00:00:00 Completed [facility] SARS-COV-2 COVID-19 PFIZER VACCINE 2020-08-23 00:00:00 Completed [facility] SARS-COV-2 COVID-19 PFIZER VACCINE 2020-08-23 00:00:00 Completed [facility] SARS-COV-2 COVID-19 PFIZER VACCINE 2020-08-23 00:00:00 Completed [facility] SARS-COV-2 COVID-19 PFIZER VACCINE 2020-08-23 00:00:00 Completed [facility] SARS-COV-2 COVID-19 PFIZER VACCINE 2020-08-23 00:00:00 Completed [facility] SARS-COV-2 COVID-19 PFIZER VACCINE 2020-08-23 00:00:00 Completed [facility] SARS-COV-2 COVID-19 PFIZER VACCINE 2020-08-23 00:00:00 Completed [facility] SARS-COV-2 COVID-19 PFIZER VACCINE 2020-08-23 00:00:00 Completed [facility] SARS-COV-2 COVID-19 PFIZER VACCINE 2020-08-23 00:00:00 Completed [facility] SARS-COV-2 COVID-19 PFIZER VACCINE 2020-08-23 00:00:00 Completed [facility] SARS-COV-2 COVID-19 PFIZER VACCINE 2020-08-23 00:00:00 Completed [facility] SARS-COV-2 COVID-19 PFIZER VACCINE 2020-08-23 00:00:00 Completed [facility] SARS-COV-2 COVID-19 PFIZER VACCINE 2020-08-23 00:00:00 Completed [facility] SARS-COV-2 COVID-19 PFIZER VACCINE 2020-08-23 00:00:00 Completed [facility] SARS-COV-2 COVID-19 PFIZER VACCINE 2020-08-23 00:00:00 Completed [facility] SARS-COV-2 COVID-19 PFIZER VACCINE 2020-08-23 00:00:00 Completed [facility] SARS-COV-2 COVID-19 PFIZER VACCINE 2020-08-23 00:00:00 Completed [facility] SARS-COV-2 COVID-19 PFIZER VACCINE 2020-08-23 00:00:00 Completed [facility] SARS-COV-2 COVID-19 PFIZER VACCINE 2020-08-23 00:00:00 Completed [facility] SARS-COV-2 COVID-19 PFIZER VACCINE 2020-07-20 00:00:00 Completed [facility] SARS-COV-2 COVID-19 PFIZER VACCINE 2020-07-20 00:00:00 Completed [facility] SARS-COV-2 COVID-19 PFIZER VACCINE 2020-07-20 00:00:00 Completed [facility] SARS-COV-2 COVID-19 PFIZER VACCINE 2020-07-20 00:00:00 Completed [facility] SARS-COV-2 COVID-19 PFIZER VACCINE 2020-07-20 00:00:00 Completed [facility] SARS-COV-2 COVID-19 PFIZER VACCINE 2020-07-20 00:00:00 Completed [facility] SARS-COV-2 COVID-19 PFIZER VACCINE 2020-07-20 00:00:00 Completed [facility] SARS-COV-2 COVID-19 PFIZER VACCINE 2020-07-20 00:00:00 Completed [facility] SARS-COV-2 COVID-19 PFIZER VACCINE 2020-07-20 00:00:00 Completed [facility] SARS-COV-2 COVID-19 PFIZER VACCINE 2020-07-20 00:00:00 Completed [facility] SARS-COV-2 COVID-19 PFIZER VACCINE 2020-07-20 00:00:00 Completed [facility] SARS-COV-2 COVID-19 PFIZER VACCINE 2020-07-20 00:00:00 Completed [facility] SARS-COV-2 COVID-19 PFIZER VACCINE 2020-07-20 00:00:00 Completed [facility] SARS-COV-2 COVID-19 PFIZER VACCINE 2020-07-20 00:00:00 Completed [facility] SARS-COV-2 COVID-19 PFIZER VACCINE 2020-07-20 00:00:00 Completed [facility] SARS-COV-2 COVID-19 PFIZER VACCINE 2020-07-20 00:00:00 Completed [facility] SARS-COV-2 COVID-19 PFIZER VACCINE 2020-07-20 00:00:00 Completed [facility] SARS-COV-2 COVID-19 PFIZER VACCINE 2020-07-20 00:00:00 Completed [facility] SARS-COV-2 COVID-19 PFIZER VACCINE 2020-07-20 00:00:00 Completed [facility] SARS-COV-2 COVID-19 PFIZER VACCINE 2020-07-20 00:00:00 Completed [facility] SARS-COV-2 COVID-19 PFIZER VACCINE 2020-07-20 00:00:00 Completed [facility] SARS-COV-2 COVID-19 PFIZER VACCINE 2020-07-20 00:00:00 Completed [facility] SARS-COV-2 COVID-19 PFIZER VACCINE 2020-07-20 00:00:00 Completed [facility] SARS-COV-2 COVID-19 PFIZER VACCINE 2020-07-20 00:00:00 Completed [facility] SARS-COV-2 COVID-19 PFIZER VACCINE 2020-07-20 00:00:00 Completed [facility] SARS-COV-2 COVID-19 PFIZER VACCINE 2020-07-20 00:00:00 Completed [facility] SARS-COV-2 COVID-19 PFIZER VACCINE 2020-07-20 00:00:00 Completed [facility] SARS-COV-2 COVID-19 PFIZER VACCINE 2020-07-20 00:00:00 Completed [facility] SARS-COV-2 COVID-19 PFIZER VACCINE 2020-07-20 00:00:00 Completed [facility] SARS-COV-2 COVID-19 PFIZER VACCINE 2020-07-20 00:00:00 Completed [facility] SARS-COV-2 COVID-19 PFIZER VACCINE 2020-07-20 00:00:00 Completed [facility] SARS-COV-2 COVID-19 PFIZER VACCINE 2020-07-20 00:00:00 Completed [facility] SARS-COV-2 COVID-19 PFIZER VACCINE 2020-07-20 00:00:00 Completed [facility] SARS-COV-2 COVID-19 PFIZER VACCINE 2020-07-20 00:00:00 Completed [facility] SARS-COV-2 COVID-19 PFIZER VACCINE 2020-07-20 00:00:00 Completed [facility] SARS-COV-2 COVID-19 PFIZER VACCINE 2020-07-20 00:00:00 Completed [facility] SARS-COV-2 COVID-19 PFIZER VACCINE 2020-07-20 00:00:00 Completed [facility] SARS-COV-2 COVID-19 PFIZER VACCINE 2020-07-20 00:00:00 Completed [facility] SARS-COV-2 COVID-19 PFIZER VACCINE 2020-07-20 00:00:00 Completed [facility] SARS-COV-2 COVID-19 PFIZER VACCINE 2020-07-20 00:00:00 Completed [facility] SARS-COV-2 COVID-19 PFIZER VACCINE 2020-07-20 00:00:00 Completed [facility] SARS-COV-2 COVID-19 PFIZER VACCINE 2020-07-20 00:00:00 Completed [facility] SARS-COV-2 COVID-19 PFIZER VACCINE 2020-07-20 00:00:00 Completed [facility] SARS-COV-2 COVID-19 PFIZER VACCINE 2020-07-20 00:00:00 Completed [facility] SARS-COV-2 COVID-19 PFIZER VACCINE 2020-07-20 00:00:00 Completed [facility] SARS-COV-2 COVID-19 PFIZER VACCINE 2020-07-20 00:00:00 Completed [facility] SARS-COV-2 COVID-19 PFIZER VACCINE 2020-07-20 00:00:00 Completed [facility] SARS-COV-2 COVID-19 PFIZER VACCINE 2020-07-20 00:00:00 Completed [facility] SARS-COV-2 COVID-19 PFIZER VACCINE 2020-07-20 00:00:00 Completed [facility] SARS-COV-2 COVID-19 PFIZER VACCINE 2020-07-20 00:00:00 Completed [facility] SARS-COV-2 COVID-19 PFIZER VACCINE 2020-07-20 00:00:00 Completed [facility] SARS-COV-2 COVID-19 PFIZER VACCINE 2020-07-20 00:00:00 Completed [facility] SARS-COV-2 COVID-19 PFIZER VACCINE 2020-07-20 00:00:00 Completed [facility] SARS-COV-2 COVID-19 PFIZER VACCINE 2020-07-20 00:00:00 Completed [facility] SARS-COV-2 COVID-19 PFIZER VACCINE 2020-07-20 00:00:00 Completed [facility] SARS-COV-2 COVID-19 PFIZER VACCINE 2020-07-20 00:00:00 Completed [facility] SARS-COV-2 COVID-19 PFIZER VACCINE 2020-07-20 00:00:00 Completed [facility] SARS-COV-2 COVID-19 PFIZER VACCINE 2020-07-20 00:00:00 Completed [facility] SARS-COV-2 COVID-19 PFIZER VACCINE 2020-07-20 00:00:00 Completed [facility] SARS-COV-2 COVID-19 PFIZER VACCINE 2020-07-20 00:00:00 Completed [facility] SARS-COV-2 COVID-19 PFIZER VACCINE 2020-07-20 00:00:00 Completed [facility] SARS-COV-2 COVID-19 PFIZER VACCINE 2020-07-20 00:00:00 Completed [facility] SARS-COV-2 COVID-19 PFIZER VACCINE 2020-07-20 00:00:00 Completed [facility] SARS-COV-2 COVID-19 PFIZER VACCINE 2020-07-20 00:00:00 Completed [facility] SARS-COV-2 COVID-19 PFIZER VACCINE 2020-07-20 00:00:00 Completed [facility] SARS-COV-2 COVID-19 PFIZER VACCINE 2020-07-20 00:00:00 Completed [facility] SARS-COV-2 COVID-19 PFIZER VACCINE 2020-07-20 00:00:00 Completed [facility] SARS-COV-2 COVID-19 PFIZER VACCINE 2020-07-20 00:00:00 Completed [facility] SARS-COV-2 COVID-19 PFIZER VACCINE 2020-07-20 00:00:00 Completed [facility] SARS-COV-2 COVID-19 PFIZER VACCINE 2020-07-20 00:00:00 Completed [facility] SARS-COV-2 COVID-19 PFIZER VACCINE 2020-07-20 00:00:00 Completed [facility] SARS-COV-2 COVID-19 PFIZER VACCINE 2020-07-20 00:00:00 Completed [facility] SARS-COV-2 COVID-19 PFIZER VACCINE 2020-07-20 00:00:00 Completed [facility] SARS-COV-2 COVID-19 PFIZER VACCINE 2020-07-20 00:00:00 Completed [facility] SARS-COV-2 COVID-19 PFIZER VACCINE 2020-07-20 00:00:00 Completed [facility] SARS-COV-2 COVID-19 PFIZER VACCINE 2020-07-20 00:00:00 Completed [facility] SARS-COV-2 COVID-19 PFIZER VACCINE 2020-07-20 00:00:00 Completed [facility] SARS-COV-2 COVID-19 PFIZER VACCINE 2020-07-20 00:00:00 Completed [facility] SARS-COV-2 COVID-19 PFIZER VACCINE 2020-07-20 00:00:00 Completed [facility] SARS-COV-2 COVID-19 PFIZER VACCINE 2020-07-20 00:00:00 Completed [facility] SARS-COV-2 COVID-19 PFIZER VACCINE 2020-07-20 00:00:00 Completed [facility] SARS-COV-2 COVID-19 PFIZER VACCINE 2020-07-20 00:00:00 Completed [facility] SARS-COV-2 COVID-19 PFIZER VACCINE 2020-07-20 00:00:00 Completed [facility] SARS-COV-2 COVID-19 PFIZER VACCINE 2020-07-20 00:00:00 Completed [facility] TDAP 2019-12-11 00:00:00 Completed [facility] TDAP 2019-12-11 00:00:00 Completed [facility] TDAP 2019-12-11 00:00:00 Completed [facility] TDAP 2019-12-11 00:00:00 Completed [facility] TDAP 2019-12-11 00:00:00 Completed [facility] TDAP 2019-12-11 00:00:00 Completed [facility] TDAP 2019-12-11 00:00:00 Completed [facility] TDAP 2019-12-11 00:00:00 Completed [facility] TDAP 2019-12-11 00:00:00 Completed [facility] TDAP 2019-12-11 00:00:00 Completed [facility] TDAP 2019-12-11 00:00:00 Completed [facility] TDAP 2019-12-11 00:00:00 Completed [facility] TDAP 2019-12-11 00:00:00 Completed [facility] TDAP 2019-12-11 00:00:00 Completed [facility] TDAP 2019-12-11 00:00:00 Completed [facility] TDAP 2019-12-11 00:00:00 Completed [facility] TDAP 2019-12-11 00:00:00 Completed [facility] TDAP 2019-12-11 00:00:00 Completed [facility] TDAP 2019-12-11 00:00:00 Completed [facility] TDAP 2019-12-11 00:00:00 Completed [facility] TDAP 2019-12-11 00:00:00 Completed [facility] TDAP 2019-12-11 00:00:00 Completed [facility] TDAP 2019-12-11 00:00:00 Completed [facility] TDAP 2019-12-11 00:00:00 Completed [facility] TDAP 2019-12-11 00:00:00 Completed [facility] TDAP 2019-12-11 00:00:00 Completed [facility] TDAP 2019-12-11 00:00:00 Completed [facility] TDAP 2019-12-11 00:00:00 Completed [facility] TDAP 2019-12-11 00:00:00 Completed [facility] TDAP 2019-12-11 00:00:00 Completed [facility] TDAP 2019-12-11 00:00:00 Completed [facility] TDAP 2019-12-11 00:00:00 Completed [facility] TDAP 2019-12-11 00:00:00 Completed [facility] TDAP 2019-12-11 00:00:00 Completed [facility] TDAP 2019-12-11 00:00:00 Completed [facility] TDAP 2019-12-11 00:00:00 Completed [facility] TDAP 2019-12-11 00:00:00 Completed [facility] TDAP 2019-12-11 00:00:00 Completed [facility] TDAP 2019-12-11 00:00:00 Completed [facility] TDAP 2019-12-11 00:00:00 Completed [facility] TDAP 2019-12-11 00:00:00 Completed [facility] TDAP 2019-12-11 00:00:00 Completed [facility] TDAP 2019-12-11 00:00:00 Completed [facility] TDAP 2019-12-11 00:00:00 Completed [facility] TDAP 2019-12-11 00:00:00 Completed [facility] TDAP 2019-12-11 00:00:00 Completed [facility] TDAP 2019-12-11 00:00:00 Completed [facility] TDAP 2019-12-11 00:00:00 Completed [facility] TDAP 2019-12-11 00:00:00 Completed [facility] TDAP 2019-12-11 00:00:00 Completed [facility] TDAP 2019-12-11 00:00:00 Completed [facility] TDAP 2019-12-11 00:00:00 Completed [facility] TDAP 2019-12-11 00:00:00 Completed [facility] TDAP 2019-12-11 00:00:00 Completed [facility] TDAP 2019-12-11 00:00:00 Completed [facility] TDAP 2019-12-11 00:00:00 Completed [facility] TDAP 2019-12-11 00:00:00 Completed [facility] TDAP 2019-12-11 00:00:00 Completed [facility] TDAP 2019-12-11 00:00:00 Completed [facility] TDAP 2019-12-11 00:00:00 Completed [facility] TDAP 2019-12-11 00:00:00 Completed [facility] TDAP 2019-12-11 00:00:00 Completed [facility] TDAP 2019-12-11 00:00:00 Completed [facility] TDAP 2019-12-11 00:00:00 Completed [facility] TDAP 2019-12-11 00:00:00 Completed [facility] TDAP 2019-12-11 00:00:00 Completed [facility] TDAP 2019-12-11 00:00:00 Completed [facility] TDAP 2019-12-11 00:00:00 Completed [facility] TDAP 2019-12-11 00:00:00 Completed [facility] TDAP 2019-12-11 00:00:00 Completed [facility] TDAP 2019-12-11 00:00:00 Completed [facility] TDAP 2019-12-11 00:00:00 Completed [facility] TDAP 2019-12-11 00:00:00 Completed [facility] TDAP 2019-12-11 00:00:00 Completed [facility] TDAP 2019-12-11 00:00:00 Completed [facility] TDAP 2019-12-11 00:00:00 Completed [facility] TDAP 2019-12-11 00:00:00 Completed [facility] TDAP 2019-12-11 00:00:00 Completed [facility] TDAP 2019-12-11 00:00:00 Completed [facility] TDAP 2019-12-11 00:00:00 Completed [facility] TDAP 2019-12-11 00:00:00 Completed [facility] TDAP 2019-12-11 00:00:00 Completed [facility] TDAP 2019-12-11 00:00:00 Completed [facility] TDAP 2019-12-11 00:00:00 Completed [facility] Pneumococcal Polysaccharide, PPSV23 (PNEUMOVAX) 2013-01-08 00:00:00 Completed [facility] Pneumococcal Polysaccharide, PPSV23 (PNEUMOVAX) 2013-01-08 00:00:00 Completed TDAP Unknown Completed [facility] SARS-COV-2 COVID-19 PFIZER VACCINE Unknown Completed [facility] Influenza Virus Vaccine Quad IM, Preserv and ABX Free 6 MO-64 YRS (FLUCELVAX) Unknown Completed [facility] TDAP Unknown Completed [facility] SARS-COV-2 COVID-19 PFIZER VACCINE Unknown Completed [facility] Influenza Virus Vaccine Quad IM, Preserv and ABX Free 6 MO-64 YRS (FLUCELVAX) Unknown Completed [facility] TDAP Unknown Completed [facility] SARS-COV-2 COVID-19 PFIZER VACCINE Unknown Completed [facility] Influenza Virus Vaccine Quad IM, Preserv and ABX Free 6 MO-64 YRS (FLUCELVAX) Unknown Completed [facility] TDAP Unknown Completed [facility] SARS-COV-2 COVID-19 PFIZER VACCINE Unknown Completed [facility] Influenza Virus Vaccine Quad IM, Preserv and ABX Free 6 MO-64 YRS (FLUCELVAX) Unknown Completed [facility] TDAP Unknown Completed [facility] SARS-COV-2 COVID-19 PFIZER VACCINE Unknown Completed [facility] Influenza Virus Vaccine Quad IM, Preserv and ABX Free 6 MO-64 YRS (FLUCELVAX) Unknown Completed [facility] TDAP Unknown Completed [facility] SARS-COV-2 COVID-19 PFIZER VACCINE Unknown Completed [facility] Influenza Virus Vaccine Quad IM, Preserv and ABX Free 6 MO-64 YRS (FLUCELVAX) Unknown Completed [facility] TDAP Unknown Completed [facility] SARS-COV-2 COVID-19 PFIZER VACCINE Unknown Completed [facility] Influenza Virus Vaccine Quad IM, Preserv and ABX Free 6 MO-64 YRS (FLUCELVAX) Unknown Completed [facility] TDAP Unknown Completed [facility] SARS-COV-2 COVID-19 PFIZER VACCINE Unknown Completed [facility] Influenza Virus Vaccine Quad IM, Preserv and ABX Free 6 MO-64 YRS (FLUCELVAX) Unknown Completed [facility] TDAP Unknown Completed [facility] SARS-COV-2 COVID-19 PFIZER VACCINE Unknown Completed [facility] Influenza Virus Vaccine Quad IM, Preserv and ABX Free 6 MO-64 YRS (FLUCELVAX) Unknown Completed [facility] TDAP Unknown Completed [facility] SARS-COV-2 COVID-19 PFIZER VACCINE Unknown Completed [facility] Influenza Virus Vaccine Quad IM, Preserv and ABX Free 6 MO-64 YRS (FLUCELVAX) Unknown Completed [facility] TDAP Unknown Completed [facility] SARS-COV-2 COVID-19 PFIZER VACCINE Unknown Completed [facility] Influenza Virus Vaccine Quad IM, Preserv and ABX Free 6 MO-64 YRS (FLUCELVAX) Unknown Completed [facility] TDAP Unknown Completed [facility] SARS-COV-2 COVID-19 PFIZER VACCINE Unknown Completed [facility] Influenza Virus Vaccine Quad IM, Preserv and ABX Free 6 MO-64 YRS (FLUCELVAX) Unknown Completed [facility] TDAP Unknown Completed [facility] SARS-COV-2 COVID-19 PFIZER VACCINE Unknown Completed [facility] Influenza Virus Vaccine Quad IM, Preserv and ABX Free 6 MO-64 YRS (FLUCELVAX) Unknown Completed [facility] TDAP Unknown Completed [facility] SARS-COV-2 COVID-19 PFIZER VACCINE Unknown Completed [facility] Influenza Virus Vaccine Quad IM, Preserv and ABX Free 6 MO-64 YRS (FLUCELVAX) Unknown Completed [facility] TDAP Unknown Completed [facility] Influenza Virus Vaccine Quad IM, Preserv and ABX Free 6 MO-64 YRS (FLUCELVAX) Unknown Completed [facility] SARS-COV-2 COVID-19 PFIZER VACCINE Unknown Completed [facility] TDAP Unknown Completed [facility] SARS-COV-2 COVID-19 PFIZER VACCINE Unknown Completed [facility] Influenza Virus Vaccine Quad IM, Preserv and ABX Free 6 MO-64 YRS (FLUCELVAX) Unknown Completed [facility] TDAP Unknown Completed [facility] SARS-COV-2 COVID-19 PFIZER VACCINE Unknown Completed [facility] Influenza Virus Vaccine Quad IM, Preserv and ABX Free 6 MO-64 YRS (FLUCELVAX) Unknown Completed [facility] TDAP Unknown Completed [facility] SARS-COV-2 COVID-19 PFIZER VACCINE Unknown Completed [facility] Influenza Virus Vaccine Quad IM, Preserv and ABX Free 6 MO-64 YRS (FLUCELVAX) Unknown Completed [facility] TDAP Unknown Completed [facility] SARS-COV-2 COVID-19 PFIZER VACCINE Unknown Completed [facility] Influenza Virus Vaccine Quad IM, Preserv and ABX Free 6 MO-64 YRS (FLUCELVAX) Unknown Completed [facility] TDAP Unknown Completed [facility] SARS-COV-2 COVID-19 PFIZER VACCINE Unknown Completed [facility] Influenza Virus Vaccine Quad IM, Preserv and ABX Free 6 MO-64 YRS (FLUCELVAX) Unknown Completed [facility] TDAP Unknown Completed [facility] SARS-COV-2 COVID-19 PFIZER VACCINE Unknown Completed [facility] Influenza Virus Vaccine Quad IM, Preserv and ABX Free 6 MO-64 YRS (FLUCELVAX) Unknown Completed [facility] TDAP Unknown Completed [facility] Influenza Virus Vaccine Quad IM, Preserv and ABX Free 6 MO-64 YRS (FLUCELVAX) Unknown Completed [facility] SARS-COV-2 COVID-19 PFIZER VACCINE Unknown Completed [facility] TDAP Unknown Completed [facility] SARS-COV-2 COVID-19 PFIZER VACCINE Unknown Completed [facility] Influenza Virus Vaccine Quad IM, Preserv and ABX Free 6 MO-64 YRS (FLUCELVAX) Unknown Completed [facility] TDAP Unknown Completed [facility] Influenza Virus Vaccine Quad IM, Preserv and ABX Free 6 MO-64 YRS (FLUCELVAX) Unknown Completed [facility] SARS-COV-2 COVID-19 PFIZER VACCINE Unknown Completed [facility] TDAP Unknown Completed [facility] SARS-COV-2 COVID-19 PFIZER VACCINE Unknown Completed [facility] Influenza Virus Vaccine Quad IM, Preserv and ABX Free 6 MO-64 YRS (FLUCELVAX) Unknown Completed [facility] TDAP Unknown Completed [facility] Influenza Virus Vaccine Quad IM, Preserv and ABX Free 6 MO-64 YRS (FLUCELVAX) Unknown Completed [facility] SARS-COV-2 COVID-19 PFIZER VACCINE Unknown Completed [facility] TDAP Unknown Completed [facility] SARS-COV-2 COVID-19 PFIZER VACCINE Unknown Completed [facility] Influenza Virus Vaccine Quad IM, Preserv and ABX Free 6 MO-64 YRS (FLUCELVAX) Unknown Completed [facility] TDAP Unknown Completed [facility] SARS-COV-2 COVID-19 PFIZER VACCINE Unknown Completed [facility] Influenza Virus Vaccine Quad IM, Preserv and ABX Free 6 MO-64 YRS (FLUCELVAX) Unknown Completed [facility] TDAP Unknown Completed [facility] SARS-COV-2 COVID-19 PFIZER VACCINE Unknown Completed [facility] Influenza Virus Vaccine Quad IM, Preserv and ABX Free 6 MO-64 YRS (FLUCELVAX) Unknown Completed [facility] TDAP Unknown Completed [facility] SARS-COV-2 COVID-19 PFIZER VACCINE Unknown Completed [facility] Influenza Virus Vaccine Quad IM, Preserv and ABX Free 6 MO-64 YRS (FLUCELVAX) Unknown Completed [facility] TDAP Unknown Completed [facility] SARS-COV-2 COVID-19 PFIZER VACCINE Unknown Completed [facility] Influenza Virus Vaccine Quad IM, Preserv and ABX Free 6 MO-64 YRS (FLUCELVAX) Unknown Completed [facility] SARS-COV-2 COVID-19 VACCINE - (MODERNA) Unknown Completed [facility] Pneumococcal Polysaccharide, PPSV23 (PNEUMOVAX) Unknown Completed [facility] TDAP Unknown Completed [facility] Influenza Virus Vaccine Quad IM, Preserv and ABX Free 6 MO-64 YRS (FLUCELVAX) Unknown Completed [facility] SARS-COV-2 COVID-19 VACCINE - (MODERNA) Unknown Completed [facility] Pneumococcal Polysaccharide, PPSV23 (PNEUMOVAX) Unknown Completed [facility] SARS-COV-2 COVID-19 PFIZER VACCINE Unknown Completed [facility] TDAP Unknown Completed [facility] SARS-COV-2 COVID-19 PFIZER VACCINE Unknown Completed [facility] Influenza Virus Vaccine Quad IM, Preserv and ABX Free 6 MO-64 YRS (FLUCELVAX) Unknown Completed [facility] SARS-COV-2 COVID-19 VACCINE - (MODERNA) Unknown Completed [facility] Pneumococcal Polysaccharide, PPSV23 (PNEUMOVAX) Unknown Completed [facility] TDAP Unknown Completed [facility] Influenza Virus Vaccine Quad IM, Preserv and ABX Free 6 MO-64 YRS (FLUCELVAX) Unknown Completed [facility] SARS-COV-2 COVID-19 VACCINE - (MODERNA) Unknown Completed [facility] Pneumococcal Polysaccharide, PPSV23 (PNEUMOVAX) Unknown Completed [facility] TDAP Unknown Completed [facility] SARS-COV-2 COVID-19 PFIZER VACCINE Unknown Completed [facility] Influenza Virus Vaccine Quad IM, Preserv and ABX Free 6 MO-64 YRS (FLUCELVAX) Unknown Completed [facility] SARS-COV-2 COVID-19 VACCINE - (MODERNA) Unknown Completed [facility] Pneumococcal Polysaccharide, PPSV23 (PNEUMOVAX) Unknown Completed [facility] SARS-COV-2 COVID-19 PFIZER VACCINE Unknown Completed [facility] TDAP Unknown Completed [facility] SARS-COV-2 COVID-19 PFIZER VACCINE Unknown Completed [facility] Influenza Virus Vaccine Quad IM, Preserv and ABX Free 6 MO-64 YRS (FLUCELVAX) Unknown Completed [facility] SARS-COV-2 COVID-19 VACCINE - (MODERNA) Unknown Completed [facility] Pneumococcal Polysaccharide, PPSV23 (PNEUMOVAX) Unknown Completed [facility] TDAP Unknown Completed [facility] SARS-COV-2 COVID-19 PFIZER VACCINE Unknown Completed [facility] Influenza Virus Vaccine Quad IM, Preserv and ABX Free 6 MO-64 YRS (FLUCELVAX) Unknown Completed [facility] SARS-COV-2 COVID-19 VACCINE - (MODERNA) Unknown Completed [facility] Pneumococcal Polysaccharide, PPSV23 (PNEUMOVAX) Unknown Completed [facility] TDAP Unknown Completed [facility] SARS-COV-2 COVID-19 PFIZER VACCINE Unknown Completed [facility] Influenza Virus Vaccine Quad IM, Preserv and ABX Free 6 MO-64 YRS (FLUCELVAX) Unknown Completed [facility] SARS-COV-2 COVID-19 VACCINE - (MODERNA) Unknown Completed [facility] Pneumococcal Polysaccharide, PPSV23 (PNEUMOVAX) [facility] SARS-COV-2 COVID-19 PFIZER VACCINE Unknown Completed [facility] Influenza Virus Vaccine Quad IM, Preserv and ABX Free 6 MO-64 YRS (FLUCELVAX) Unknown Completed [facility] SARS-COV-2 COVID-19 VACCINE - (MODERNA) Unknown [facility] Pneumococcal Polysaccharide, PPSV23 (PNEUMOVAX) Unknown Completed [facility] TDAP Unknown Completed [facility] SARS-COV-2 COVID-19 PFIZER VACCINE Unknown Completed [facility] Influenza Virus Vaccine Quad IM, Preserv and ABX Free 6 MO-64 YRS (FLUCELVAX) Unknown Completed [facility] SARS-COV-2 COVID-19 VACCINE - (MODERNA) Unknown Completed [facility] Pneumococcal Polysaccharide, PPSV23 (PNEUMOVAX) Unknown Completed [facility] TDAP Unknown Completed [facility] SARS-COV-2 COVID-19 PFIZER VACCINE Unknown Completed [facility] Influenza Virus Vaccine Quad IM, Preserv and ABX Free 6 MO-64 YRS (FLUCELVAX) Unknown Completed [facility] SARS-COV-2 COVID-19 VACCINE - (MODERNA) Unknown Completed [facility] Pneumococcal Polysaccharide, PPSV23 (PNEUMOVAX) Unknown Completed [facility] TDAP Unknown Completed [facility] SARS-COV-2 COVID-19 PFIZER VACCINE Unknown Completed [facility] Influenza Virus Vaccine Quad IM, Preserv and ABX Free 6 MO-64 YRS (FLUCELVAX) Unknown Completed [facility] SARS-COV-2 COVID-19 VACCINE - (MODERNA) Unknown Completed [facility] Pneumococcal Polysaccharide, PPSV23 (PNEUMOVAX) Unknown Completed [facility] TDAP Unknown Completed [facility] SARS-COV-2 COVID-19 PFIZER VACCINE Unknown Completed [facility] Influenza Virus Vaccine Quad IM, Preserv and ABX Free 6 MO-64 YRS (FLUCELVAX) Unknown Completed [facility] SARS-COV-2 COVID-19 VACCINE - (MODERNA) Unknown [facility] Pneumococcal Polysaccharide, PPSV23 (PNEUMOVAX) Unknown Completed [facility] TDAP Unknown Completed [facility] SARS-COV-2 COVID-19 PFIZER VACCINE Unknown Completed [facility] Influenza Virus Vaccine Quad IM, Preserv and ABX Free 6 MO-64 YRS (FLUCELVAX) Unknown Completed [facility] SARS-COV-2 COVID-19 VACCINE - (MODERNA) Unknown [facility] Pneumococcal Polysaccharide, PPSV23 (PNEUMOVAX) Unknown Completed [facility] TDAP Unknown Completed [facility] SARS-COV-2 COVID-19 PFIZER VACCINE Unknown Completed [facility] Influenza Virus Vaccine Quad IM, Preserv and ABX Free 6 MO-64 YRS (FLUCELVAX) Unknown Completed [facility] SARS-COV-2 COVID-19 VACCINE - (MODERNA) Unknown Completed [facility] Pneumococcal Polysaccharide, PPSV23 (PNEUMOVAX) Unknown Completed [facility] TDAP Unknown Completed [facility] SARS-COV-2 COVID-19 PFIZER VACCINE Unknown Completed [facility] Influenza Virus Vaccine Quad IM, Preserv and ABX Free 6 MO-64 YRS (FLUCELVAX) Unknown Completed [facility] SARS-COV-2 COVID-19 VACCINE - (MODERNA) Unknown Completed [facility] Pneumococcal Polysaccharide, PPSV23 (PNEUMOVAX) Unknown Completed [facility] TDAP Unknown Completed [facility] SARS-COV-2 COVID-19 PFIZER VACCINE Unknown Completed [facility] Influenza Virus Vaccine Quad IM, Preserv and ABX Free 6 MO-64 YRS (FLUCELVAX) Unknown Completed [facility] SARS-COV-2 COVID-19 VACCINE - (MODERNA) Unknown Completed [facility] Pneumococcal Polysaccharide, PPSV23 (PNEUMOVAX) Unknown Completed [facility] TDAP Unknown Completed [facility] SARS-COV-2 COVID-19 PFIZER VACCINE Unknown Completed [facility] Influenza Virus Vaccine Quad IM, Preserv and ABX Free 6 MO-64 YRS (FLUCELVAX) Unknown Completed [facility] SARS-COV-2 COVID-19 VACCINE - (MODERNA) Unknown Completed [facility] Pneumococcal Polysaccharide, PPSV23 (PNEUMOVAX) Unknown Completed [facility] TDAP Unknown Completed [facility] SARS-COV-2 COVID-19 PFIZER VACCINE Unknown Completed [facility] Influenza Virus Vaccine Quad IM, Preserv and ABX Free 6 MO-64 YRS (FLUCELVAX) Unknown Completed [facility] SARS-COV-2 COVID-19 VACCINE - (MODERNA) Unknown Completed [facility] Pneumococcal Polysaccharide, PPSV23 (PNEUMOVAX) Unknown Completed [facility] TDAP Unknown Completed [facility] SARS-COV-2 COVID-19 PFIZER VACCINE Unknown Completed [facility] Influenza Virus Vaccine Quad IM, Preserv and ABX Free 6 MO-64 YRS (FLUCELVAX) Unknown Completed [facility] SARS-COV-2 COVID-19 VACCINE - (MODERNA) Unknown Completed [facility] Pneumococcal Polysaccharide, PPSV23 (PNEUMOVAX) Unknown Completed [facility] TDAP Unknown Completed [facility] SARS-COV-2 COVID-19 PFIZER VACCINE Unknown Completed [facility] Influenza Virus Vaccine Quad IM, Preserv and ABX Free 6 MO-64 YRS (FLUCELVAX) Unknown Completed [facility] SARS-COV-2 COVID-19 VACCINE - (MODERNA) Unknown Completed [facility] Pneumococcal Polysaccharide, PPSV23 (PNEUMOVAX) Unknown Completed [facility] TDAP Unknown Completed [facility] SARS-COV-2 COVID-19 PFIZER VACCINE Unknown Completed [facility] Influenza Virus Vaccine Quad IM, Preserv and ABX Free 6 MO-64 YRS (FLUCELVAX) Unknown Completed [facility] SARS-COV-2 COVID-19 VACCINE - (MODERNA) Unknown Completed [facility] Pneumococcal Polysaccharide, PPSV23 (PNEUMOVAX) Unknown Completed [facility] TDAP Unknown Completed [facility] SARS-COV-2 COVID-19 PFIZER VACCINE Unknown Completed [facility] Influenza Virus Vaccine Quad IM, Preserv and ABX Free 6 MO-64 YRS (FLUCELVAX) Unknown Completed [facility] SARS-COV-2 COVID-19 VACCINE - (MODERNA) Unknown Completed [facility] Pneumococcal Polysaccharide, PPSV23 (PNEUMOVAX) Unknown Completed [facility] COVID-19 Vaccine(Pfizer)(12y rs+) Unknown Completed Alejandra Gilold - External Influenza, Injectable, Mdck, Preservative Free, Quadrivalent Unknown Completed Alejandra ybold - External FLUCELVAX TRIVALENT PF Unknown Completed Alejandra ybold - External Tdap- (Boostrix, Adacel) Unknown Completed Alejandra ybold - External Shingles IM (Shingrix) Unknown Completed Alejandra ybold - External Vital Signs Vital Name Observation Time Observation Value Comments S ource Systolic blood pressure 2024-01-31 19:38:00 121 mm[Hg] Alejandra Avendanoybo ld - External Diastolic blood pressure 2024-01-31 19:38:00 86 mm[Hg] Alejandra Avendanoybo ld - External Heart rate 2024-01-31 19:38:00 103 /min Sarabjit y Seybold - External Body temperature 2024-01-31 19:38:00 36.44 Kimberly Alejandra Avendanoybold - External Respiratory rate 2024-01-31 19:38:00 18 /min Alejandra Avendanoybold - External Body height 2024-01-31 19:38:00 157.5 cm Carly florence Seybold - External Body weight 2024-01-31 19:38:00 77.111 kg Carly ey Seybold - External BMI 2024-01-31 19:38:00 31.09 kg/m2 Carly naman Seybold - External Oxygen saturation in Arterial blood by Pulse oximetry 2024-01-31 19:38:00 100 /min Alejandra Gilo ld - External Systolic blood pressure 2023-10-26 19:14:00 145 mm[Hg] [facility] Diastolic blood pressure 2023-10-26 19:14:00 90 mm[Hg] [facility] Heart rate 2023-10-26 19:13:00 109 /min [facility] Body temperature 2023-10-26 19:13:00 36.78 Kimberly [facility] Respiratory rate 2023-10-26 19:13:00 18 /min [facility] Body height 2023-10-26 19:13:00 157.5 cm [facility] Body weight 2023-10-26 19:13:00 77.111 kg [facility] BMI 2023-10-26 19:13:00 31.09 kg/m2 [facility] Oxygen saturation in Arterial blood by Pulse oximetry 2023-10-26 19:13:00 99 /min [facility] Systolic blood pressure 2023-10-03 19:20:00 115 mm[Hg] [facility] Diastolic blood pressure 2023-10-03 19:20:00 81 mm[Hg] [facility] Heart rate 2023-10-03 19:20:00 113 /min Un[facility] Body height 2023-10-03 19:20:00 157.5 cm [facility] Body weight 2023-10-03 19:20:00 71.442 kg [facility] BMI 2023-10-03 19:20:00 28.81 kg/m2 [facility] Oxygen saturation in Arterial blood by Pulse oximetry 2023-10-03 19:20:00 98 /min [facility] Systolic blood pressure 2023-08-19 16:14:00 78 mm[Hg] [facility] Diastolic blood pressure 2023-08-19 16:14:00 52 mm[Hg] [facility] Heart rate 2023-08-19 16:02:00 99 [facility] Body temperature 2023-08-19 16:02:00 36.89 Kimberly [facility] Body height 2023-08-19 16:02:00 157.5 cm [facility] 2023-08-19 16:02:00 72.303 kg [facility] BMI 2023-08-19 16:02:00 29.15 kg/m2 [facility] Oxygen saturation in Arterial blood by Pulse oximetry 2023-08-19 16:02:00 97 /min [facility] Systolic blood pressure 2023-07-20 14:56:00 101 mm[Hg] [facility] Diastolic blood pressure 2023-07-20 14:56:00 66 mm[Hg] [facility] Heart rate 2023-07-20 14:56:00 93 /min [facility] temperature 2023-07-20 14:56:00 36.72 Kimberly [facility] Body height 2023-07-20 14:56:00 157.5 cm [facility] weight 2023-07-20 14:56:00 74.844 kg [facility] BMI 2023-07-20 14:56:00 30.18 kg/m2 [facility] Systolic blood pressure 2023-05-04 19:34:00 144 mm[Hg] [facility] Diastolic blood pressure 2023-05-04 19:34:00 83 mm[Hg] [facility] Heart rate 2023-05-04 19:33:00 106 /min [facility] height 2023-05-04 19:33:00 157.5 cm [facility] Body weight 2023-05-04 19:33:00 73.029 kg [facility] BMI 2023-05-04 19:33:00 29.45 kg/m2 [facility] Systolic blood pressure 2022-08-02 15:09:00 126 mm[Hg] [facility] Diastolic blood pressure 2022-08-02 15:09:00 82 mm[Hg] [facility] Heart rate 2022-08-02 15:09:00 114 /min [facility] Body height 2022-08-02 15:09:00 157.5 cm [facility] Body weight 2022-08-02 15:09:00 74.844 kg [facility] BMI 2022-08-02 15:09:00 30.18 kg/m2 [facility] Systolic blood pressure 2022-03-31 19:09:00 96 mm[Hg] [facility] Diastolic blood pressure 2022-03-31 19:09:00 63 mm[Hg] [facility] Heart rate 2022-03-31 19:09:00 128 /min [facility] Body temperature 2022-03-31 19:09:00 37.39 Kimberly [facility] Body height 2022-03-31 19:09:00 157.5 cm [facility] Body weight 2022-03-31 19:09:00 79.833 kg [facility] BMI 2022-03-31 19:09:00 32.19 kg/m2 [facility] Systolic blood pressure 2022-02-26 18:01:00 118 mm[Hg] [facility] Diastolic blood pressure 2022-02-26 18:01:00 78 mm[Hg] [facility] Heart rate 2022-02-26 18:01:00 114 /min Un[facility] Body height 2022-02-26 18:01:00 157.5 cm [facility] Body weight 2022-02-26 18:01:00 85.367 kg [facility] BMI 2022-02-26 18:01:00 34.42 kg/m2 [facility] Oxygen saturation in Arterial blood by Pulse oximetry 2022-02-26 18:01:00 95 /min [facility] Systolic blood pressure 2022-01-12 20:02:00 143 mm[Hg] [facility] Diastolic blood pressure 2022-01-12 20:02:00 82 mm[Hg] [facility] Heart rate 2022-01-12 20:01:00 120 /min Un[facility] Body temperature 2022-01-12 20:01:00 37.22 Kimberly [facility] Body height 2022-01-12 20:01:00 157.5 cm [facility] Body weight 2022-01-12 20:01:00 86.637 kg [facility] BMI 2022-01-12 20:01:00 34.93 kg/m2 [facility] Systolic blood pressure 2023-10-26 19:14:00 145 mm[Hg] [facility] Diastolic blood pressure 2023-10-26 19:14:00 90 mm[Hg] [facility] Heart rate 2023-10-26 19:13:00 109 /min [facility] Body temperature 2023-10-26 19:13:00 36.78 Kimberly [facility] Respiratory rate 2023-10-26 19:13:00 18 /min [facility] Body height 2023-10-26 19:13:00 157.5 cm [facility] Body weight 2023-10-26 19:13:00 77.111 kg [facility] BMI 2023-10-26 19:13:00 31.09 kg/m2 [facility] Oxygen saturation in Arterial blood by Pulse oximetry 2023-10-26 19:13:00 99 /min [facility] BP Systolic 2022-02-11 11:33:00 BP Diastolic 2022-02-11 [...] Date / Time Performed Performing Clinician Source MICROALBUMIN URINE 2023-10-03 20:19:00 Val Preston [facility] LIPID PANEL (10033)(TOTAL CHOLESTEROL, TRIGLYCERIDES, HDL) 2023-10-03 20:19:00 Val Preston [facility] COMP. METABOLIC PANEL (65681) 2023-10-03 20:19:00 Val Preston [facility] CBC WITH DIFF 2023-10-03 20:19:00 Val Preston [facility] THYROID STIMULATING HORMONE 2023-10-03 20:19:00 Val Preston [facility] FREE T4 2023-10-03 20:19:00 Val Preston [facility] TRIIODOTHYRONINE 2023-10-03 20:19:00 Val Preston [facility] POCT HEMOGLOBIN A1C TEST 2023-10-03 19:22:00 Christiano Preston [facility] POCT HEMOGLOBIN A1C TEST 2023-10-03 19:22:00 Christiano Preston [facility] RADIOLOGY DOCUMENTATION 2023-08-24 18:33:28 Doct or Unassigned, [place] [facility] DME/SUPPLY JUSTIFICATION 2023-06-20 06:01:00 Doc tor Unassigned, [place] [facility] CONSENT/REFUSAL FOR DIAGNOSIS AND TREATMENT 2023-05-04 19:00:34 Doctor Unassigned, [place] [facility] MEDICATION CORRESPONDENCE 2023-04-01 06:01:00 Do ctor Unassigned, [place] [facility] MEDICAL RELEASE/CLEARANCE FORMS 2022-09-06 05:01:00 Doctor Unassigned, [place] [facility] PATIENT FINANCIAL POLICY 2022-08-02 15:01:15 Doctor Unassigned, [place] [facility] DME/SUPPLY JUSTIFICATION 2022-05-17 06:01:00 Doc tor Unassigned, [place] [facility] DME/SUPPLY JUSTIFICATION 2022-05-03 06:01:00 Doc tor Unassigned, [place] [facility] MEDICATION CORRESPONDENCE 2022-04-06 06:01:00 Do ctor Unassigned, [place] [facility] INSURANCE CORRESPONDENCE 2022-03-17 06:01:00 Doc tor Unassigned, [place] [facility] DME/SUPPLY JUSTIFICATION 2022-03-11 06:01:00 Doc tor Unassigned, [place] [facility] EXTERNAL PROVIDER RECORDS 2022-01-28 05:01:00 Do ctor Unassigned, [place] [facility] ASSIGNMENT OF BENEFITS 2022-01-12 19:46:51 Docto r Unassigned, [place] [facility] POCT HEMOGLOBIN A1C TEST 2022-01-12 00:00:00 Loraine claudia Florecita Weldon [facility] INSURANCE CORRESPONDENCE 2021-11-12 05:01:00 Doc eileen Unassigned, [place] [facility] EXTERNAL MAMMOGRAM 2016-11-30 13:00:00 Doctor Un assigned, [place] [facility] GALV ONLY - HIV TYPE 1 AND 2 ANTIBODY TESTING 2014-09-01 04:30:00 Britton Bains [facility] HCV ANTIBODY 2005-12-13 08:00:00 Kartik Velez [facility] Plan of Care Planned Activity Planned Date Details Comments Source Goal Plan of Care Note [code = 19664-6] Goal Plan of Care Note [code = 14392-4] Goal Plan of Care Note [code = 16836-7] Goal Plan of Care Note [code = 09574-2] Goal Plan of Care Note [code = 96485-7] Goal Plan of Care Note [code = 75869-3] Goal Plan of Care Note [code = 74215-0] Goal Plan of Care Note [code = 56696-7] Goal Plan of Care Note [code = 22857-4] Goal Plan of Care Note [code = 75987-8] Goal Plan of Care Note [code = 47757-3] Goal Plan of Care Note [code = 66001-9] Goal Plan of Care Note [code = 04044-6] Goal Plan of Care Note [code = 36423-4] Goal Plan of Care Note [code = 87421-0] Goal Plan of Care Note [code = 31013-0] Goal Plan of Care Note [code = 42738-4] Goal Plan of Care Note [code = 55071-3] Goal Plan of Care Note [code = 79884-1] Goal Plan of Care Note [code = 10691-8] Encounters Start Date/Time End Date/Time Encounter Type Admission Type Attending Clinicians Care Facility Care Department Encounter ID Source 2022-12-20 10:01:00 Outpatient [facility] [id number] [facility] 2022-12-17 16:40:00 Outpatient [facility] [id number] [facility] 2022-09-30 08:53:00 [facility] [id number] [facility] 2024-03-13 00:00:00 2024-03-13 00:00:00 Outpatient VINCE TIM MORALES ALEJANDRA [id number] Alejandra Valverde 2024-03-08 16:00:00 2024-03-08 16:00:[address] [facility] [id number] [facility] 2024-03-05 00:00:00 2024-03-07 07:41:18 Telephone Val Preston [facility] [id number] [id number] [facility] 2024-03-05 00:00:00 2024-03-05 11:53:16 Florecita Montoya [facility] [id number] [id number] [id number] [id number] [facility] 2024-02-27 00:00:00 2024-02-27 16:51:47 [facility] [id number] [id number] [id number] [id number] [facility] 2024-02-24 00:00:00 2024-02-24 12:33:18 Telephone [facility] [id number] [id number] [id number] [id number] [facility] 2024-02-17 00:00:00 2024-02-21 09:15:19 Florecita Montoya [facility] JAYY?[facility] [id number] 350.1.13.10 4.2.7.2.686 [id number] [facility] 2024-02-08 00:00:00 2024-02-08 00:00:00 Outpatient SHANNON JERAD ALEJANDRA MORALES [id number] [facility] 2024-02-07 00:00:00 2024-02-07 00:00:00 Outpatient VINCE TIM MORALES [id number] [facility] 2024-02-05 00:00:00 2024-02-06 08:12:49 Bob Loraineclaudia [facility] JAYY?[facility] [id number] 350.1.13.10 4.2.7.2.686 [id number] [facility] 2024-01-31 15:00:00 2024-01-31 15:00:00 Outpatient HAIM CLARKEÁNGEL MORALES [id number] [facility] 2024-01-31 14:00:00 2024-01-31 14:00:00 Outpatient HAIM CLARKEÁNGEL MORALES [id number] [facility] 2024-01-25 00:00:00 2024-01-25 08:43:51 Bob [facility]aineclaudia [facility] [id number] 350.1.13.10 4.2.7.2.686 [id number] [facility] 2024-01-09 13:30:00 2024-01-09 13:30:[address] [facility] [id number] [facility] 2023-11-02 00:00:00 2024-01-06 11:07:54 Bob Lorainegonzalodilma [facility] [id number] 350.1.13.10 4.2.7.2.686 [id number] [facility] 2024-01-02 00:00:00 2024-01-04 08:14:53 Florecita Montoya [facility] JAYY?[facility] [id number] [id number] 4.2.7.2.686 [id number] [facility] 2023-12-22 00:00:00 2023-12-23 09:04:38 Telephone LoraineFlorecita taylor [facility] 1.2840.114 350.1.13.10 4.2.7.2.686 [id number] 044 [id number] [facility] 2023-12-22 00:00:00 2023-12-22 17:18:51 Nurse Triage Bindu Juares Sharon [facility] 1.84.114 350.1.13.10 4.2.7.2.686 [id number] 019 [id number] [facility] 2023-12-22 09:04:53 2023-12-22 09:04:[address] [facility] [id number] Scott Dunn 2023-12-20 00:00:00 2023-12-20 10:46:18 Bob Florecita Atkins [facility] 1.284.114 350.1.13.10 4.2.7.2.686 [id number] 044 [id number] [facility] 2023-12-07 00:00:00 2023-12-07 13:14:22 Telephone Amarilys Jerez [facility] 1.2840.114 350.1.13.10 4.2.7.2.686 [id number] 044 [id number] [facility] 2023-12-06 00:00:00 2023-12-06 15:36:58 Telephone Val Preston [facility] 1.2.840.114 350.1.13.10 4.2.7.2.686 [id number] 220 [id number] [facility] 2023-12-05 00:00:00 2023-12-06 08:51:14 Refill Vincenzo Sanches [facility] 1.2.840.114 350.1.13.10 4.2.7.2.686 [id number] 220 [id number] [facility] 2023-11-24 00:00:00 2023-12-05 15:56:31 Refill Vincenzo Sanches [facility] 1.2.840.114 350.1.13.10 4.2.7.2.686 [id number] 220 [id number] [facility] 2023-11-28 00:00:00 2023-12-05 14:14:01 Refill Val Preston [facility] 1.2.840.114 350.1.13.10 4.2.7.2.686 [id number] 220 [id number] [facility] 2023-11-28 00:00:00 2023-11-28 14:38:59 Refill Florecita Atkins [facility] 1.2.840.114 350.1.13.10 4.2.7.2.686 [id number] 044 [id number] [facility] 2023-11-07 00:00:00 2023-11-09 08:54:21 Refill Val Preston [facility] 1.2.840.114 350.1.13.10 4.2.7.2.686 [id number] 220 [id number] [facility] 2023-11-04 00:00:00 2023-11-04 10:01:16 RefVal Zee [facility] 1.2.840.114 350.1.13.10 4.2.7.2.686 [id number] 220 [id number] [facility] 2023-11-02 00:00:00 2023-11-03 07:45:22 Telephone KeenandilmaFlorecita [facility] 1.2.840.114 350.1.13.10 4.2.7.2.686 [id number] 044 [id number] [facility] 2023-11-02 00:00:00 2023-11-02 14:18:03 Refill Kary Val Acuña [facility] 1.2.840.114 350.1.13.10 4.2.7.2.686 [id number] 220 [id number] [facility] 2023-11-02 00:00:00 2023-11-02 11:12:16 Refill Solitario Amarilys [facility] 1.2.840.114 350.1.13.10 4.2.7.2.686 [id number] 044 [id number] [facility] 2023-10-28 00:00:00 2023-11-01 08:20:17 Refill Solitario Amarilys [facility] 1.2.840.114 350.1.13.10 4.2.7.2.686 [id number] 044 [id number] [facility] 2023-10-26 14:35:36 2023-10-26 23:59:00 Outpatient R AMARILYS J[facility]Z [facility] [id number] [facility] 2023-10-26 14:30:00 2023-10-26 14:31:48 Office Visit Jesssudha Amarilys 1.2.840.1 75314.1.1 3.104.2.7 .3.121006 .8 [id number] [facility] 2023-10-26 00:00:00 2023-10-26 00:00:00 Travel 1.2.840.1 39172.1.1 3.104.2.7 .3.046809 .8 1.2.840.114 350.1.13.10 4.2.7.3.698 084.8 [id number] [facility] 2023-10-10 00:00:00 2023-10-10 16:41:21 Vincenzo Dean 1.2.840.1 92499.1.1 3.104.2.7 .3.051147 .8 [id number] [facility] 2023-10-07 00:00:00 2023-10-10 09:02:22 Telephone Florecita Atkins 1.2.840.1 89843.1.1 3.104.2.7 .3.072614 .8 [id number] [facility] 2023-10-04 00:00:00 2023-10-04 15:37:19 Telephone Val Preston 1.2.840.1 42026.1.1 3.104.2.7 .3.505326 .8 [id number] [facility] 2023-10-03 15:15:00 2023-10-03 15:47:51 Brick Maker Visit Val Preston Lab, Ang - Db 1.2.840.1 40892.1.1 3.104.2.7 .3.036458 .8 [id number] [facility] 2023-10-03 14:30:00 2023-10-03 15:10:41 Outpatient R VAL [facility] [id number] [facility] 2023-10-03 14:30:00 2023-10-03 15:10:41 Office Visit Val Preston 1.2.840.1 67781.1.1 3.104.2.7 .3.297920 .8 [id number] [facility] 2023-10-03 00:00:00 2023-10-03 00:00:00 Travel 1.2.840.1 27590.1.1 3.104.2.7 .3.433881 .8 1.2.840.114 350.1.13.10 4.2.7.3.698 084.8 [id number] [facility] 2023-09-28 00:00:00 2023-09-29 12:59:39 Telephone Amarilys Jerez 1.2.840.1 87050.1.1 3.104.2.7 .3.454281 .8 [id number] [facility] 2023-09-23 00:00:00 2023-09-23 08:41:46 Florecita Montoya 1.2.840.1 52149.1.1 3.104.2.7 .3.596306 .8 [id number] [facility] 2023-09-16 00:00:00 2023-09-16 00:00:00 Florecita Montoya 1.2.840.1 10334.1.1 3.104.2.7 .3.046085 .8 [id number] [facility] 2023-08-29 00:00:00 2023-08-29 07:59:59 Florecita Montoya 1.2.840.1 29476.1.1 3.104.2.7 .3.145825 .8 [id number] [facility] 2023-08-24 00:00:00 2023-08-24 00:00:00 Orders Only Doctor Unassigned, [place] 1.2.840.1 68203.1.1 3.104.2.7 .3.057749 .8 [id number] [facility] 2023-08-23 00:00:00 2023-08-23 07:21:13 Refill Florecita Atkins 1.2.840.1 84489.1.1 3.104.2.7 .3.267826 .8 [id number] [facility] 2023-08-19 11:00:00 2023-08-19 11:19:59 Outpatient R NINI [facility] [id number] [facility] 2023-08-19 11:00:00 2023-08-19 11:19:59 Office Visit Nini Mendenhall 1.2.840.1 33895.1.1 3.104.2.7 .3.319332 .8 [id number] [facility] 2023-08-19 00:00:00 2023-08-19 00:00:00 Travel 1.2.840.1 72757.1.1 3.104.2.7 .3.032091 .8 1.2.840.114 350.1.13.10 4.2.7.3.698 084.8 [id number] [facility] 2023-08-18 10:39:15 2023-08-18 10:39:15 Outpatient [facility] [id number] 0425 Scott James Shaun 2023-08-15 00:00:00 2023-08-15 11:47:18 Telephone Florecita Atkins 1.2.840.1 38144.1.1 3.104.2.7 .3.441957 .8 [id number] [facility] 2023-08-15 00:00:00 2023-08-15 08:55:57 Telephone Val Preston 1.2.840.1 07747.1.1 3.104.2.7 .3.187956 .8 [id number] [facility] 2023-08-12 11:00:00 2023-08-12 11:00:00 Outpatient Vee VINCENZO SANCHES [facility] [id number] [facility] 2023-08-09 14:00:00 2023-08-09 14:00:[address] [facility] [id number] [facility] 2023-07-28 00:00:00 2023-07-29 07:21:13 Refill Florecita Atkins 1..840.1 51268.1.1 3.104.2.7 .3.921764 .8 [id number] [facility] 2023-07-20 10:30:00 2023-07-20 11:00:00 Office Visit Florecita Atkins [facility] 1.840.114 350.1.13.10 4.2.7.2.686 [id number] 044 [id number] [facility] 2023-07-20 10:30:00 2023-07-20 10:08:[address] [facility] [id number] [facility] 2023 10:08:57 2023 10:08:57 Outpatient [facility] [id number] Scott Dunn 2023-07-07 10:30:00 2023-07-07 10:30:[address] [facility] [id number] [facility] 2023-06-21 09:00:00 2023-06-21 09:00:[address] [facility] [id number] [facility] 2023-06-20 00:00:00 2023-06-20 00:00:00 Orders Only Doctor Unassigned, [place] [facility] 1.840.114 350.1.13.10 4.2.7.2.686 [id number] [facility] 2023-06-16 14:58:06 2023-06-16 14:58:06 Outpatient [facility] [id number] Scott Dunn 2023-06-06 00:00:00 2023-06-06 00:00:00 Refill Vincenzo Sanches [facility] 1.2.840.114 350.1.13.10 4.2.7.2.686 [id number] 220 [id number] [facility] 2023-06-05 00:00:00 2023-06-05 00:00:00 Refill Vincenzo Sanches [facility] 1.2840.114 350.1.13.10 4.2.7.2.686 [id number] 220 [id number] [facility] 2023-06-03 00:00:00 2023-06-03 00:00:00 Refill Florecita Atkins [facility] 1.840.114 350.1.13.10 4.2.7.2.686 [id number] 044 [id number] [facility] 2023-05-27 00:00:00 2023-05-27 00:00:00 Refill Eduardo Newton [facility] 1.840.114 350.1.13.10 4.2.7.2.686 [id number] 044 [id number] [facility] 2023-05-25 10:30:00 2023-05-25 10:30:[address] [facility] [id number] [facility] 2023-05-12 00:00:00 2023-05-12 00:00:00 RefFlorecita Peace [facility] 1.2840.114 350.1.13.10 4.2.7.2.686 [id number] 044 [id number] [facility] 2023-05-04 13:45:00 2023-05-04 14:00:00 Office Visit KeenandilmaFlorecita [facility] 1.114 350.1.13.10 4.2.7.2.686 [id number] 044 [id number] [facility] 2023-05-04 13:45:00 2023-05-04 13:44:32 Outpatient R FLORECITA [address] [facility] [id number] [facility] 2023-05-04 00:00:00 2023-05-04 00:00:00 Orders Only Doctor Unassigned, [place] [facility] 1.114 350.1.13.10 4.2.7.2.686 [id number] 009 [id number] [facility] 2023-04-26 10:00:00 2023-04-26 10:00:00 Outpatient R FLORECITA AT[address] [facility] [id number] [facility] 2023-04-26 00:00:00 2023-04-26 00:00:00 Telephone Florecita Atkins [facility] 1.114 350.1.13.10 4.2.7.2.686 [id number] 044 [id number] [facility] 2023-04-25 00:00:00 2023-04-25 00:00:00 [facility]ill [facility] 1.114 350.1.13.10 4.2.7.2.686 [id number] 220 [id number] [facility] 2023-04-17 00:00:00 2023-04-17 00:00:00 Refill [facility] 1.114 350.1.13.10 4.2.7.2.686 [id number] 220 [id number] [facility] 2023-04-01 00:00:00 2023-04-01 00:00:00 Orders Only Doctor Unassigned, [place] [facility] 1.2840.114 350.1.13.10 4.2.7.2.686 [id number] 009 [id number] [facility] 2023-03-31 00:00:00 2023-03-31 00:00:00 Telephone Florecita Atkins [facility] 1.0.114 350.1.13.10 4.2.7.2.686 [id number] 044 [id number] [facility] 2023-03-25 00:00:00 2023-03-25 00:00:00 Refill Florecita Atkins [facility] 1.20.114 350.1.13.10 4.2.7.2.686 [id number] 044 [id number] [facility] 2023-03-04 00:00:00 2023-03-04 00:00:00 Refill Vincenzo Sanches [facility] 1..114 350.1.13.10 4.2.7.2.686 [id number] 220 [id number] [facility] 2023-02-28 00:00:00 2023-02-28 00:00:00 Refill Florecita Atkins [facility] 1..114 350.1.13.10 4.2.7.2.686 [id number] 044 [id number] [facility] 2023-02-22 00:00:00 2023-02-22 00:00:00 Refill Florecita Atkins [facility] 1.2.114 350.1.13.10 4.2.7.2.686 [id number] 044 [id number] [facility] 2023-02-21 12:00:00 2023-02-21 12:00:[address] [facility] [id number] [facility] 2023-02-21 00:00:00 2023-02-21 00:00:00 Outpatient GC_GCBZW_Ka diyala_S PRIV PRIV [id number] [facility] 2023-02-20 00:00:00 2023-02-20 00:00:00 Outpatient GC_GCBZW_Ka diyala_S PRIV PRIV [id number] [facility] 2023-02-08 00:00:00 2023-02-08 00:00:00 Refill Florecita Atkins [facility] 1.840.114 350.1.13.10 4.2.7.2.686 [id number] 044 [id number] [facility] 2023-01-24 00:00:00 2023-01-24 00:00:00 Refill Eduardo Newton [facility] 1.840.114 350.1.13.10 4.2.7.2.686 [id number] 044 [id number] [facility] 2023-01-12 00:00:00 2023-01-12 00:00:00 Refill [facility] 1..840.114 350.1.13.10 4.2.7.2.686 [id number] 220 [id number] [facility] 2023-01-12 00:00:00 2023-01-12 00:00:00 Refill Vincenzo Sanches [facility] 1.840.114 350.1.13.10 4.2.7.2.686 [id number] 220 [id number] [facility] 2022-12-30 00:00:00 2022-12-30 00:00:00 Refill Florecita Atkins [facility] 1.840.114 350.1.13.10 4.2.7.2.686 [id number] 044 [id number] [facility] 2022-12-28 00:00:00 2022-12-28 00:00:00 Telephone Florecita Atkins [facility] 1.840.114 350.1.13.10 4.2.7.2.686 [id number] 044 [id number] [facility] 2022-12-22 00:00:00 2022-12-22 00:00:00 Telephone Florecita Atkins [facility] 1.840.114 350.1.13.10 4.2.7.2.686 [id number] 044 [id number] [facility] 2022-12-22 00:00:00 2022-12-22 00:00:00 (TEL) STLMLC STLMLC [id number] [facility] 2022-11-22 13:30:00 2022-11-22 13:30:00 Outpatient R TONY FELDMAN [facility] [id number] [facility] 2022-11-18 00:00:00 2022-11-18 00:00:00 Telephone Florecita Atkins [facility] 1.840.114 350.1.13.10 4.2.7.2.686 [id number] 044 [id number] [facility] 2022-11-17 00:00:00 2022-11-17 00:00:00 Tony Lara [facility] 1.840.114 350.1.13.10 4.2.7.2.686 [id number] 220 [id number] [facility] 2022-11-05 00:00:00 2022-11-05 00:00:00 [facility] 1.2840.114 350.1.13.10 4.2.7.2.686 [id number] 044 [id number] [facility] 2022-10-30 00:00:00 2022-10-30 00:00:00 Refill Florecita Atkins [facility] 1.2840.114 350.1.13.10 4.2.7.2.686 [id number] 044 [id number] [facility] 2022-10-13 00:00:00 2022-10-13 00:00:00 [facility] 1.2840.114 350.1.13.10 4.2.7.2.686 [id number] 044 [id number] [facility] 2022-10-13 00:00:00 2022-10-13 00:00:00 Refill Florecita Atkins [facility] 1.2840.114 350.1.13.10 4.2.7.2.686 [id number] 220 [id number] [facility] 2022-09-29 00:00:00 2022-09-29 00:00:00 Refill Princess [facility] 1.2840.114 350.1.13.10 4.2.7.2.686 [id number] 220 [id number] [facility] 2022-09-23 00:00:00 2022-09-23 00:00:00 Refill Eduardo Newton [facility] 1.2840.114 350.1.13.10 4.2.7.2.686 [id number] 044 [id number] [facility] 2022-09-06 00:00:00 2022-09-06 00:00:00 Orders Only Doctor Unassigned, [place] [facility] 1.2840.114 350.1.13.10 4.2.7.2.686 [id number] 009 [id number] [facility] 2022-09-04 00:00:00 2022-09-04 00:00:00 Refill LorainegonzaloFlorecita perera [facility] 1.2840.114 350.1.13.10 4.2.7.2.686 [id number] 044 [id number] [facility] 2022-09-03 00:00:00 2022-09-03 00:00:00 Telephone KeenanFlorecita perera [facility] 1.2840.114 350.1.13.10 4.2.7.2.686 [id number] 044 [id number] [facility] 2022-09-01 00:00:00 2022-09-01 00:00:00 Refill Florecita Atkins [facility] 1.2840.114 350.1.13.10 4.2.7.2.686 [id number] 044 [id number] [facility] 2022-09-01 00:00:00 2022-09-01 00:00:00 Refill Florecita Atkins [facility] 1.2840.114 350.1.13.10 4.2.7.2.686 [id number] 044 [id number] [facility] 2022-09-01 00:00:00 2022-09-01 00:00:00 Refill Florecita Atkins [facility] 1.2840.114 350.1.13.10 4.2.7.2.686 [id number] 044 [id number] [facility] 2022-09-01 00:00:00 2022-09-01 00:00:00 Telephone Florecita Atkins [facility] 1.2.840.114 350.1.13.10 4.2.7.2.686 [id number] 044 [id number] [facility] 2022-08-31 00:00:00 2022-08-31 00:00:00 Refill Florecita Atkins [facility] 1.2840.114 350.1.13.10 4.2.7.2.686 [id number] 044 [id number] [facility] 2022-08-30 00:00:00 2022-08-30 00:00:00 Refill Florecita Atkins [facility] 1.2840.114 350.1.13.10 4.2.7.2.686 [id number] 044 [id number] [facility] 2022-08-29 00:00:00 2022-08-29 00:00:00 Refill Florecita Atkins [facility] 1.2840.114 350.1.13.10 4.2.7.2.686 [id number] 044 [id number] [facility] 2022-08-23 00:00:00 2022-08-23 00:00:00 Refill Tony Feldman [facility] 1.2840.114 350.1.13.10 4.2.7.2.686 [id number] 220 [id number] [facility] 2022-08-20 00:00:00 2022-08-20 00:00:00 Telephone Tony Feldman [facility] 1.2.840.114 350.1.13.10 4.2.7.2.686 [id number] 220 [id number] [facility] 2022-08-19 00:00:00 2022-08-19 00:00:00 Refill Florecita Atkins [facility] JAYY?SCARLETT [facility] 1.2.840.114 350.1.13.10 4.2.7.2.686 [id number] 044 [id number] [facility] 2022-08-18 00:00:00 2022-08-18 00:00:00 Refill Florecita Atkins [facility] JAYY?SC[facility]TT [facility] 1.2840.114 350.1.13.10 4.2.7.2.686 [id number] [id number] [facility] 2022-08-16 00:00:00 2022-08-16 00:00:00 Telephone Tony Feldman [facility] 1.2840.114 350.1.13.10 4.2.7.2.686 [id number] 220 [id number] [facility] 2022-08-13 00:00:00 2022-08-13 00:00:00 Refill Vincenzo Sanches [facility] JAYY[facility] 1.2840.114 350.1.13.10 4.2.7.2.686 [id number] 220 [id number] [facility] 2022-08-12 00:00:00 2022-08-12 00:00:00 Refill Vincenzo Sanches [facility] 1.2.840.114 350.1.13.10 4.2.7.2.686 [id number] 220 [id number] [facility] 2022-08-12 00:00:00 2022-08-12 00:00:00 Telephone Tony Feldman [facility] JAYY?[facility] 1.84.114 350.1.13.10 4.2.7.2.686 [id number] 220 [id number] [facility] 2022-08-03 00:00:00 2022-08-03 00:00:00 Refill LorainegonzalodilmaFlorecita [facility] JAYY[facility] 1.84.114 350.1.13.10 4.2.7.2.686 [id number] [id number] [facility] 2022-08-03 00:00:00 2022-08-03 00:00:00 [facility] 1.840.114 350.1.13.10 4.2.7.2.686 [id number] 220 [id number] [facility] 2022-08-02 10:21:39 2022-08-02 23:59:00 Outpatient R FLORECITA [facility] [id number] [facility] 2022-08-02 10:15:00 2022-08-02 10:30:00 [facility] 1.840.114 350.1.13.10 4.2.7.2.686 [id number] [id number] [facility] 2022-08-02 00:00:00 2022-08-02 00:00:00 Orders Only Doctor Unassigned, [place] [facility] 1.84.114 350.1.13.10 4.2.7.2.686 [id number] [facility] 2022-08-02 00:00:00 2022-08-02 00:00:00 Telephone Florecita Atkins [facility] JAYY?[facility] 1.2840.114 350.1.13.10 4.2.7.2.686 [id number] [id number] [facility] 2022-07-25 00:00:00 2022-07-25 00:00:00 Refill Milly Florecita [facility] JAYY?SC[facility]TT [facility] 1.2840.114 350.1.13.10 4.2.7.2.686 [id number] [id number] [facility] 2022 15:00:00 2022 15:00:[address] [facility] [id number] [facility] 2022-07-12 13:45:00 2022-07-12 13:45:[address] [facility] [id number] [facility] 2022-06-27 00:00:00 2022-06-27 00:00:00 Refelkin Atkins [facility] 1.840.114 350.1.13.10 4.2.7.2.686 [id number] [id number] [facility] 2022-06-03 00:00:00 2022-06-03 00:00:00 RefFlorecita [facility] 1.840.114 350.1.13.10 4.2.7.2.686 [id number] [id number] [facility] 2022-06-03 00:00:00 2022-06-03 00:00:00 Telephone [facility] 1.284.114 350.1.13.10 4.2.7.2.686 [id number] 220 [id number] [facility] 2022-06-03 00:00:00 2022-06-03 00:00:00 Refill Princess Lizarraga [facility] JAYY?[facility] 1.2.840.114 350.1.13.10 4.2.7.2.686 [id number] 220 [id number] [facility] 2022-05-19 00:00:00 2022-05-19 00:00:00 Florecita Landers [facility] JAYY?[facility] 1.2.840.114 350.1.13.10 4.2.7.2.686 [id number] 044 [id number] [facility] 2022-05-17 00:00:00 2022-05-17 00:00:00 Refill [facility] 1.2840.114 350.1.13.10 4.2.7.2.686 [id number] 044 [id number] [facility] 2022-05-17 00:00:00 2022-05-17 00:00:00 Orders Only Doctor Unassigned, [place] [facility] 1.2840.114 350.1.13.10 4.2.7.2.686 [id number] [id number] [facility] 2022-05-15 00:00:00 2022-05-15 00:00:00 Refill Florecita Atkins [facility] JAYY?[facility] 1.2840.114 350.1.13.10 4.2.7.2.686 [id number] 044 [id number] [facility] 2022-05-07 00:00:00 2022-05-07 00:00:00 Refill Florecita Atkins [facility] JAYY?[facility] 1.2840.114 350.1.13.10 4.2.7.2.686 [id number] 044 [id number] [facility] 2022-05-03 00:00:00 2022-05-03 00:00:00 [facility]ill [facility] 1.2.840.114 350.1.13.10 4.2.7.2.686 [id number] 220 [id number] [facility] 2022-05-03 00:00:00 2022-05-03 00:00:00 Orders Only Doctor Unassigned, [place] [facility] 1.2.840.114 350.1.13.10 4.2.7.2.686 [id number] 009 [id number] [facility] 2022-04-22 00:00:00 2022-04-22 00:00:00 Telephone Florecita Atkins [facility] 1.2.840.114 350.1.13.10 4.2.7.2.686 [id number] 044 [id number] [facility] 2022-04-16 00:00:00 2022-04-16 00:00:00 Telephone GastonTony [facility] 1.2840.114 350.1.13.10 4.2.7.2.686 [id number] 220 [id number] [facility] 2022-04-12 00:00:00 2022-04-12 00:00:00 Telephone Bernadine Callahan 1.2840.114 350.1.13.10 4.2.7.2.686 [id number] [id number] [facility] 2022-04-06 00:00:00 2022-04-06 00:00:00 Orders Only Doctor Unassigned, [place] [facility] 1.2.840.114 350.1.13.10 4.2.7.2.686 [id number] 009 [id number] [facility] 2022-04-05 00:00:00 2022-04-05 00:00:00 [facility] 1.2840.114 350.1.13.10 4.2.7.2.686 [id number] 220 [id number] [facility] 2022-03-31 13:15:00 2022-03-31 13:30:00 [facility] 1.2840.114 350.1.13.10 4.2.7.2.686 [id number] 044 [id number] [facility] 2022-03-31 13:15:00 2022-03-31 13:15:00 Outpatient R FLORECITA AT[facility]INS [facility] [id number] [facility] 2022-03-25 00:00:00 2022-03-25 00:00:00 Telephone Keenandilma Florecita [facility] JAYY?[facility] 1.2840.114 350.1.13.10 4.2.7.2.686 [id number] 044 [id number] [facility] 2022-03-24 00:00:00 2022-03-24 00:00:00 Telephone Florecita Atkins [facility] JAYY?[facility] 1.2840.114 350.1.13.10 4.2.7.2.686 [id number] 044 [id number] [facility] 2022-03-23 00:00:00 2022-03-23 00:00:00 [facility] 1.2840.114 350.1.13.10 4.2.7.2.686 [id number] 220 [id number] [facility] 2022-03-19 00:00:00 2022-03-19 00:00:00 Telephone Florecita Atkins [facility] JAYY?[facility] 1.2840.114 350.1.13.10 4.2.7.2.686 [id number] 044 [id number] [facility] 2022-03-17 00:00:00 2022-03-17 00:00:00 Telephone Florecita Atkins [facility] JAYY?[facility] 1.2840.114 350.1.13.10 4.2.7.2.686 [id number] 044 [id number] [facility] 2022-03-17 00:00:00 2022-03-17 00:00:00 Orders Only Doctor Unassigned, [place] [facility] 1.20.114 350.1.13.10 4.2.7.2.686 [id number] 009 [id number] [facility] 2022-03-15 00:00:00 2022-03-15 00:00:[address] [facility] 1.840.114 350.1.13.10 4.2.7.2.686 [id number] 044 [id number] [facility] 2022-03-11 00:00:00 2022-03-11 00:00:00 Orders Only Doctor Unassigned, [place] [facility] 1.2840.114 350.1.13.10 4.2.7.2.686 [id number] 009 [id number] [facility] 2022-03-10 00:00:00 2022-03-10 00:00:00 Telephone Florecita Atkins [facility] JAYY?[facility] 1..114 350.1.13.10 4.2.7.2.686 [id number] 044 [id number] [facility] 2022-03-08 00:00:00 2022-03-08 00:00:00 Telephone Florecita Atkins [facility] JAYY?[facility] 1.20.114 350.1.13.10 4.2.7.2.686 [id number] 044 [id number] [facility] 2022-03-05 00:00:00 2022-03-05 00:00:00 Refill Florecita Atkins [facility] 1..840.114 350.1.13.10 4.2.7.2.686 [id number] 044 [id number] [facility] 2022-03-03 00:00:00 2022-03-03 00:00:00 Refill Elham [facility] 1.840.114 350.1.13.10 4.2.7.2.686 [id number] 220 [id number] [facility] 2022-02-26 13:30:00 2022-02-26 14:03:53 Outpatient R ELHAM [facility] [id number] [facility] 2022-02-26 13:30:00 2022-02-26 14:03:53 Office Visit Elham [facility]ILD[facility] 1.840.114 350.1.13.10 4.2.7.2.686 [id number] 220 [id number] [facility] 2022-02-11 00:00:00 2022-02-11 00:00:00 Outpatient Visit [id number] 2022-02-03 00:00:00 2022-02-03 00:00:00 Refill Florecita Atkins [facility]ILD[facility] 1..840.114 350.1.13.10 4.2.7.2.686 [id number] 044 [id number] [facility] 2022-01-28 00:00:00 2022-01-28 00:00:00 Orders Only Doctor Unassigned, [place] [facility] 1.114 350.1.13.10 4.2.7.2.686 [id number] 009 [id number] [facility] 2022-01-24 00:00:00 2022-01-24 00:00:00 Refill Florecita Atkins [facility] JYAY?[facility] 1..114 350.1.13.10 4.2.7.2.686 [id number] 044 [id number] [facility] 2022-01-18 00:00:00 2022-01-18 00:00:00 Telephone [place] Yee [facility] 1..114 350.1.13.10 4.2.7.2.686 [id number] 220 [id number] [facility] 2022-01-17 00:00:00 2022-01-17 00:00:00 Refill Milly [facility] JAYY?[facility] 1.84.114 350.1.13.10 4.2.7.2.686 [id number] 044 [id number] [facility] 2022-01-15 14:30:00 2022-01-15 14:30:[address] [facility] [id number] [facility] 2022-01-14 00:00:00 2022-01-14 00:00:00 Telephone Florecita Atkins [facility] JAYY?[facility] 1.84.114 350.1.13.10 4.2.7.2.686 [id number] 044 [id number] [facility] 2022-01-13 00:00:00 2022-01-13 00:00:00 Refill Florecita Atkins [facility] JAYY?[facility] 1.84114 350.1.13.10 4.2.7.2.686 [id number] 044 [id number] [facility] 2022-01-12 15:15:00 2022-01-12 15:17:01 Outpatient R MILLY [facility] [facility] [id number] [facility] 2022-01-12 15:15:00 2022-01-12 15:17:01 Office Visit LorainegonzaloFloreciat perera [facility] 1.84114 350.1.13.10 4.2.7.2.686 [id number] 044 [id number] [facility] 2022-01-12 00:00:00 2022-01-12 00:00:00 Orders Only Doctor Unassigned, [place] [facility] 1.0114 350.1.13.10 4.2.7.2.686 [id number] [id number] [facility] 2022-01-09 00:00:00 2022-01-09 00:00:[address] [facility]ILD[facility] 1.84114 350.1.13.10 4.2.7.2.686 [id number] 044 [id number] [facility] 2022-01-06 00:00:00 2022-01-06 00:00:00 Telephone [place] Yee [facility] 1.84.114 350.1.13.10 4.2.7.2.686 [id number] 220 [id number] [facility] 2021-12-30 00:00:00 2021-12-30 00:00:00 Refill [facility] 1.84.114 350.1.13.10 4.2.7.2.686 [id number] 044 [id number] [facility] 2021-12-29 13:30:00 2021-12-29 13:30:00 Outpatient R FLORECITA AT[facility] [id number] [facility] 2021-12-25 00:00:00 2021-12-25 00:00:00 Telephone Florecita Atknis [facility] JAYY?SC[facility]LETT [facility]ILD[facility] 1.2.840.114 350.1.13.10 4.2.7.2.686 [id number] 044 [id number] [facility] 2021-12-12 00:00:00 2021-12-12 00:00:00 Refill LoraineclaudiaFlorecita [facility] JAYY?[facility] 1.2.840.114 350.1.13.10 4.2.7.2.686 [id number] 044 [id number] [facility] 2021-11-23 00:00:00 2021-11-23 00:00:00 Telephone Joselito [facility] JAYY?SC[facility]LETT [facility]ILD[facility] 1..840.114 350.1.13.10 4.2.7.2.686 [id number] 220 [id number] [facility] 2021-11-17 00:00:00 2021-11-17 00:00:00 Telephone Joselito [facility] J[facility] 1.2.840.114 350.1.13.10 4.2.7.2.686 [id number] 220 [id number] [facility] 2021-11-16 00:00:00 2021-11-16 00:00:00 Telephone Joselito [facility] JAYY?[facility] 1.2.840.114 350.1.13.10 4.2.7.2.686 [id number] 220 [id number] [facility] 2021-11-14 00:00:00 2021-11-14 00:00:00 Refill Milly [facility] JAYY?[facility] 1.2840.114 350.1.13.10 4.2.7.2.686 [id number] 044 [id number] [facility] 2021-11-12 00:00:00 2021-11-12 00:00:00 Orders Only Doctor Unassigned, [place] [facility] 1.20.114 350.1.13.10 4.2.7.2.686 [id number] 009 [id number] [facility] 2021-11-01 00:00:00 2021-11-01 00:00:00 Bob Atkins [facility] 1.284.114 350.1.13.10 4.2.7.2.686 [id number] 082 [id number] [facility] 2021-10-31 00:00:00 2021-10-31 00:00:00 [facility] 1.84.114 350.1.13.10 4.2.7.2.686 [id number] 044 [id number] [facility] 2021-10-29 00:00:00 2021-10-29 00:00:00 Refelkin Atkins [facility] 1.84.114 350.1.13.10 4.2.7.2.686 [id number] 044 [id number] [facility] 2021-10-27 00:00:00 2021-10-27 00:00:00 Refelkin Atkins [facility] 1.284114 350.1.13.10 4.2.7.2.686 [id number] 044 [id number] [facility] 2021-10-22 00:00:00 2021-10-22 00:00:00 Refill [place], Florecita [facility] JAYY?[facility] 1.84114 350.1.13.10 4.2.7.2.686 [id number] 044 [id number] [facility] 2021-10-21 00:00:00 2021-10-21 00:00:00 [facility] 1.114 350.1.13.10 4.2.7.2.686 [id number] 220 [id number] [facility] 2021-10-19 00:00:00 2021-10-19 00:00:00 Refill Florecita Atkins [facility] JAYY?SCARLETT [facility]ILD[facility] 1.84114 350.1.13.10 4.2.7.2.686 [id number] 044 [id number] [facility] 2021-10-05 14:30:00 2021-10-05 14:30:00 Outpatient R JOSELITO [facility] [id number] [facility] 2021-10-05 14:30:00 2021-10-05 14:30:00 Outpatient R JOSELITO [facility] [id number] [facility] 2021-09-28 00:00:00 2021-09-28 00:00:00 Orders Only Doctor Unassigned, [place] [facility] 1.114 350.1.13.10 4.2.7.2.686 [id number] [id number] [facility] 2021-09-27 00:00:00 2021-09-27 00:00:00 Refill Joselito [facility] JAYY?[facility] 1.84114 350.1.13.10 4.2.7.2.686 [id number] 220 [id number] [facility] 2021-09-21 00:00:00 2021-09-21 00:00:00 Refill Florecita Atkins [facility] JAYY?SCARLETT [facility]ILD[facility] 1.2.840.114 350.1.13.10 4.2.7.2.686 [id number] 044 [id number] [facility] 2021-09-10 00:00:00 2021-09-10 00:00:00 Orders Only Doctor Unassigned, [place] [facility] 1.2.840.114 350.1.13.10 4.2.7.2.686 [id number] 009 [id number] [facility] 2021-09-08 00:00:00 2021-09-08 00:00:00 Refill Florecita Atkins [facility] JAYY?[facility] 1.2840.114 350.1.13.10 4.2.7.2.686 [id number] 044 [id number] [facility] 2021-09-08 00:00:00 2021-09-08 00:00:00 Refill Joselito [facility] JAYY?[facility] 1.2840.114 350.1.13.10 4.2.7.2.686 [id number] 220 [id number] [facility] 2021-09-08 00:00:00 2021-09-08 00:00:00 [facility] 1.2840.114 350.1.13.10 4.2.7.2.686 [id number] 220 [id number] [facility] 2021-08-31 00:00:00 2021-08-31 00:00:00 Telephone Joselito [facility] JAYY?[facility] 1.2840.114 350.1.13.10 4.2.7.2.686 [id number] 220 [id number] [facility] 2021-08-25 00:00:00 2021-08-25 00:00:00 Telephone Florecita Atkins [facility] JAYY?SCARLETT [facility]ILD[facility] 1.2840.114 350.1.13.10 4.2.7.2.686 [id number] 044 [id number] [facility] 2021-08-24 00:00:00 2021-08-24 00:00:00 Refill Florecita Atkins [facility] JAYY?[facility] 1.840.114 350.1.13.10 4.2.7.2.686 [id number] 044 [id number] [facility] 2021-08-23 00:00:00 2021-08-23 00:00:00 Refill Milly [facility] JAYY?[facility]ILD[facility] 1.840.114 350.1.13.10 4.2.7.2.686 [id number] 044 [id number] [facility] 2021-08-18 00:00:00 2021-08-18 00:00:00 Telephone Joselito [facility] JAYY?[facility] 1.2840.114 350.1.13.10 4.2.7.2.686 [id number] 220 [id number] [facility] 2021-08-18 00:00:00 2021-08-18 00:00:00 Telephone Joselito [place] [facility] 1.840.114 350.1.13.10 4.2.7.2.686 [id number] 220 [id number] [facility] 2021-08-18 00:00:00 2021-08-18 00:00:00 Orders Only Doctor Unassigned, [place] [facility] 1.840.114 350.1.13.10 4.2.7.2.686 [id number] 009 [id number] [facility] 2021-08-02 00:00:00 2021-08-02 00:00:00 Florecita Montoya [facility] NAL BUILDING 1.20.114 350.1.13.10 4.2.7.2.686 [id number] 044 [id number] [facility] 2021-07-30 00:00:00 2021-07-30 00:00:00 Refelkin Atkins [facility] OFFICE BUILDING ONE 1..114 350.1.13.10 4.2.7.2.686 [id number] 044 [id number] [facility] 2021-07-29 00:00:00 2021-07-29 00:00:00 Refelkin Atkins [facility] JAYY?[facility] 1..114 350.1.13.10 4.2.7.2.686 [id number] 044 [id number] [facility] 2021-07-29 00:00:00 2021-07-29 00:00:00 Telephone Joselito [facility] JAYY?[facility] 1..114 350.1.13.10 4.2.7.2.686 [id number] 220 [id number] [facility] 2021-07-27 00:00:00 2021-07-27 00:00:00 Telephone [facility] BUILD[facility] 1..114 350.1.13.10 4.2.7.2.686 [id number] 220 [id number] [facility] 2021-07-23 00:00:00 2021-07-23 00:00:00 Refill Joselito [facility] JAYY?[facility]ILD[facility] 1.2.114 350.1.13.10 4.2.7.2.686 [id number] 220 [id number] [facility] 2021-07-22 00:00:00 2021-07-22 00:00:00 Refill Joselito [facility] JAYY?SCARLETT [facility] BUILDING 1.2840.114 350.1.13.10 4.2.7.2.686 [id number] 220 [id number] [facility] 2021-07-22 00:00:00 2021-07-22 00:00:00 Refill Joselito [facility] J[facility]Y?[facility] 1.84.114 350.1.13.10 4.2.7.2.686 [id number] 220 [id number] [facility] 2021 00:00:00 2021 00:00:00 Telephone [facility]ILD[facility] 1.84.114 350.1.13.10 4.2.7.2.686 [id number] 220 [id number] [facility] 2021-07-06 14:00:00 2021-07-06 14:00:[address] [facility] [id number] [facility] 2021-07-06 00:00:00 2021-07-06 00:00:00 Letter (Out) Doctor Unassigned, [place] [facility] 1..114 350.1.13.10 4.2.7.2.686 [id number] 044 [id number] [facility] 2021-07-02 00:00:00 2021-07-02 00:00:00 RefFlorecita Peace mal[facility] 1.84.114 350.1.13.10 4.2.7.2.686 [id number] 044 [id number] [facility] 2021-06-19 11:30:00 2021-06-19 11:30:00 Outpatient R FLORECITA ATK[facility] [id number] [facility] 2021-05-24 00:00:00 2021-05-24 00:00:00 Telephone Javier Dillon [facility] 1..840.114 350.1.13.10 4.2.7.2.686 [id number] [facility] 2021-05-23 13:00:00 2021-05-23 13:32:55 Outpatient R AMIRA [facility] [facility] [id number] [facility] 2021-05-23 13:00:00 2021-05-23 13:20:00 Urgent Care Amira Balbuena [facility] 1..840.114 350.1.13.10 4.2.7.2.686 [id number] [facility] 2021-05-22 17:00:00 2021-05-22 17:00:[address] [facility] [id number] [facility] 2021-05-06 00:00:00 2021-05-06 00:00:00 Refelkin Florecita Atkins [facility] OFFICE BUILDING ONE 1..840.114 350.1.13.10 4.2.7.2.686 [id number] 044 [id number] [facility] 2021-05-05 11:30:00 2021-05-05 11:30:00 Outpatient R PRINCESS LIZARR[address] [facility] [id number] [facility] 2021-05-04 00:00:00 2021-05-04 00:00:00 Telephone Princess Lizarraga [facility] BUILDING 1..840.114 350.1.13.10 4.2.7.2.686 [id number] 220 [id number] [facility] 2021-04-03 00:00:00 2021-04-03 00:00:00 Telephone Joselito [facility] JAYY?[facility] 1.2840.114 350.1.13.10 4.2.7.2.686 [id number] 220 [id number] [facility] 2021-03-16 13:00:00 2021-03-16 14:14:20 Outpatient R JOSELITO [facility] [id number] [facility] 2021-03-16 12:59:42 2021-03-16 13:29:42 Office Visit Joselito [facility] 1.84.114 350.1.13.10 4.2.7.2.686 [id number] 220 [id number] [facility] 2021-03-16 13:00:00 2021-03-16 13:00:00 Outpatient R JOSELITO [facility] [id number] [facility] 2021-03-16 00:00:00 2021-03-16 00:00:00 Orders Only Doctor Unassigned, [place] [facility] 1.84.114 350.1.13.10 4.2.7.2.686 [id number] [facility] 2021-03-10 00:00:00 2021-03-10 00:00:00 Telephone Joselito [facility] NAL BUILDING 1..840.114 350.1.13.10 4.2.7.2.686 [id number] 220 [id number] [facility] 2021-03-05 00:00:00 2021-03-05 00:00:00 Telephone Joselito [facility] JAYY?[facility] 1.84.114 350.1.13.10 4.2.7.2.686 [id number] 220 [id number] [facility] 2021-03-04 00:00:00 2021-03-04 00:00:00 Telephone Joselito [place] [facility] NAL BUILDING 1.284.114 350.1.13.10 4.2.7.2.686 [id number] 220 [id number] [facility] 2021-02-16 15:21:19 2021-02-16 15:36:19 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 [id number] [facility] 2021-02-16 00:00:00 2021-02-16 00:00:00 Orders Only Doctor Unassigned, [place] [facility] 1.114 350.1.13.10 4.2.7.2.686 [id number] [facility] 2021-02-12 00:00:00 2021-02-12 00:00:00 Telephone Joselito [facility] 1.114 350.1.13.10 4.2.7.2.686 [id number] 220 [id number] [facility] 2021-02-09 00:00:00 2021-02-09 00:00:00 Refill Clarisa Yeeena [facility] 1.0.114 350.1.13.10 4.2.7.2.686 [id number] 220 [id number] [facility] 2021-02-06 00:00:00 2021-02-06 00:00:00 [facility] 1.2840.114 350.1.13.10 4.2.7.2.686 [id number] 220 [id number] [facility] 2021-01-30 00:00:00 2021-01-30 00:00:00 Telephone [facility] 1.2840.114 350.1.13.10 4.2.7.2.686 [id number] [facility] 2021-01-30 00:00:00 2021-01-30 00:00:00 Orders Only Doctor Unassigned, [place] [facility] 1.20.114 350.1.13.10 4.2.7.2.686 [id number] 009 [id number] [facility] 2021-01-28 00:00:00 2021-01-28 00:00:00 Telephone Tika Martinez [facility] 1.0.114 350.1.13.10 4.2.7.2.686 [id number] [facility] 2021-01-26 09:30:00 2021-01-26 09:30:00 Outpatient Vee YEE [facility] [id number] [facility] 2021-01-26 09:30:00 2021-01-26 09:30:00 [facility] [id number] [facility] 2021-01-26 09:30:00 2021-01-26 09:30:00 Outpatient [facility]AR[facility] [id number] [facility] 2021-01-23 00:00:00 2021-01-23 00:00:00 Telephone Florecita Atkins [facility] 1..840.114 350.1.13.10 4.2.7.2.686 [id number] 044 [id number] [facility] 2021-01-19 00:00:00 2021-01-19 00:00:00 Telephone Joselito [facility] 1.840.114 350.1.13.10 4.2.7.2.686 [id number] 220 [id number] [facility] 2021-01-15 00:00:00 2021-01-15 00:00:00 [facility] 1.84.114 350.1.13.10 4.2.7.2.686 [id number] 220 [id number] [facility] 2020-12-24 08:04:37 2020-12-24 10:25:17 Office Visit Florecita Atkins [facility] 1..840.114 350.1.13.10 4.2.7.2.686 [id number] 044 [id number] [facility] 2020-12-24 08:00:00 2020-12-24 08:00:00 Outpatient R FLORECITA [facility] [id number] [facility] 2020-12-17 00:00:00 2020-12-17 00:00:00 Refill Milly [facility] 1..840.114 350.1.13.10 4.2.7.2.686 [id number] 044 [id number] [facility] 2020-12-17 00:00:00 2020-12-17 00:00:00 Telephone Joselito [facility] 1.2.840.114 350.1.13.10 4.2.7.2.686 [id number] 220 [id number] [facility] 2020-12-16 13:00:00 2020-12-16 14:14:[address] [facility] [id number] [facility] 2020-12-16 11:36:26 2020-12-16 11:51:26 Telemedici ne Visit Florecita Atkins [facility] 1.2.840.114 350.1.13.10 4.2.7.2.686 [id number] 044 [id number] [facility] 2020-12-16 00:00:00 2020-12-16 00:00:00 Refill Florecita [facility] Building 1..840.114 350.1.13.10 4.2.7.2.686 [id number] 044 [id number] [facility] 2020-12-12 00:00:00 2020-12-12 00:00:00 Refill Joselito [facility] 1..840.114 350.1.13.10 4.2.7.2.686 [id number] 220 [id number] [facility] 2020-12-12 00:00:00 2020-12-12 00:00:00 Orders Only Doctor Unassigned, [place] [facility] 1.2.840.114 350.1.13.10 4.2.7.2.686 [id number] [id number] [facility] 2020-12-08 13:15:00 2020-12-08 13:15:[address] [facility] [id number] [facility] 2020-12-08 13:15:00 2020-12-08 13:15:00 [address] [facility] [id number] [facility] 2020-11-24 13:00:00 2020-11-24 13:00:00 [facility] [id number] [facility] 2020-11-24 13:00:00 2020-11-24 13:00:00 Outpatient Vee YEE [facility] [id number] [facility] 2020-10-03 00:00:00 2020-10-03 00:00:00 Bob Atkins [facility] Office Building One 1..840.114 350.1.13.10 4.2.7.2.686 [id number] 044 [id number] 2020-09-24 00:00:00 2020-09-24 00:00:00 Orders Only Doctor Unassigned, [place] [facility] 1.840.114 350.1.13.10 4.2.7.2.686 [id number] [id number] 2020-09-17 00:00:00 2020-09-17 00:00:00 Bob Atkins [facility] Office Building One 1.840.114 350.1.13.10 4.2.7.2.686 [id number] 044 [id number] 2020-09-14 00:00:00 2020-09-14 00:00:00 Bob Atkins [facility] Building 1.840.114 350.1.13.10 4.2.7.2.686 [id number] 044 [id number] 2020-09-04 09:00:00 2020-09-04 09:00:[address] [facility] [id number] [facility] 2020-09-04 07:01:14 2020-09-04 07:16:14 Telemedici ne Visit Florecita Atkins [facility] Office Building One 1..840.114 350.1.13.10 4.2.7.2.686 [id number] [id number] 2020-08-26 11:15:00 2020-08-26 11:15:00 Outpatient Vee LORAINEGONZALOFLORECITA [facility]A [facility] [id number] [facility] 2020-08-26 11:15:00 2020-08-26 11:15:00 Outpatient Vee NETTLESFLORECITA [facility]A [facility] [id number] [facility] 2020-08-14 00:00:00 2020-08-14 00:00:00 Telephone Team, [facility] 1.2.840.114 350.1.13.10 4.2.7.2.686 [id number] 2020-07-28 12:00:00 2020-07-28 12:00:[address] [facility] [id number] [facility] 2020-07-15 00:00:00 2020-07-15 00:00:00 Bob Florecita Atkins [facility] Office Building One 1..840.114 350.1.13.10 4.2.7.2.686 [id number] [id number] 2020-07-15 00:00:00 2020-07-15 00:00:00 Telephone [place] Yee [facility] Building 1..840.114 350.1.13.10 4.2.7.2.686 [id number] 220 [id number] 2020-07-08 14:00:00 2020-07-08 14:00:00 Outpatient SOFÍA WYLIE [facility] [id number] [facility] 2020-06-30 15:00:00 2020-06-30 15:00:[address] [facility] [id number] [facility] 2020-06-17 00:00:00 2020-06-17 00:00:00 Refill [facility] 1.0.114 350.1.13.10 4.2.7.2.686 [id number] 044 [id number] 2020-06-03 00:00:00 2020-06-03 00:00:00 Orders Only Doctor Unassigned, [place] [facility] 1.20.114 350.1.13.10 4.2.7.2.686 [id number] [id number] 2020-05-23 00:00:00 2020-05-23 00:00:00 Refill Milly [facility] Building 1..114 350.1.13.10 4.2.7.2.686 [id number] 044 [id number] 2020-05-23 00:00:00 2020-05-23 00:00:00 Telephone Joselito [facility] 1..114 350.1.13.10 4.2.7.2.686 [id number] 220 [id number] 2020-05-22 09:00:00 2020-05-22 09:00:[address] [facility] [id number] [facility] 2020-05-22 07:35:33 2020-05-22 07:50:33 Telemedici ne Visit Milly [facility] Office Building One 1..114 350.1.13.10 4.2.7.2.686 [id number] 044 [id number] 2020-05-21 00:00:00 2020-05-21 00:00:00 Telephone Florecita Atkins [facility] Office Building One 1.2.840.114 350.1.13.10 4.2.7.2.686 [id number] [id number] 2020-05-20 09:15:00 2020-05-20 09:15:[address] [facility] [id number] [facility] 2020-05-20 00:00:00 2020-05-20 00:00:00 Telephone [place] Yee [facility] Building 1.2.840.114 350.1.13.10 4.2.7.2.686 [id number] 220 [id number] 2020-05-19 00:00:00 2020-05-19 00:00:00 Orders Only Doctor Unassigned, [place] [facility] 1.2.840.114 350.1.13.10 4.2.7.2.686 [id number] [id number] 2020-05-15 00:00:00 2020-05-15 00:00:00 Telephone Milly [facility] Office Building One 1.2.840.114 350.1.13.10 4.2.7.2.686 [id number] 044 [id number] 2020-05-13 00:00:00 2020-05-13 00:00:00 Telephone Milly [facility] Office Building One 1.2.840.114 350.1.13.10 4.2.7.2.686 [id number] 044 [id number] 2020-05-09 00:00:00 2020-05-09 00:00:00 Telephone Milly [facility] Office Building One 1.2.840.114 350.1.13.10 4.2.7.2.686 [id number] 044 [id number] 2020-05-07 08:30:00 2020-05-07 08:30:[address] [facility] [id number] [facility] 2020-05-05 00:00:00 2020-05-05 00:00:00 Telephone [place] Yee [facility] Building 1.2.840.114 350.1.13.10 4.2.7.2.686 [id number] 220 [id number] 2020-04-14 00:00:00 2020-04-14 00:00:00 [facility] 1.2.840.114 350.1.13.10 4.2.7.2.686 [id number] 220 [id number] 2020-04-14 00:00:00 2020-04-14 00:00:00 Refill Joselito [facility] Building 1.2.840.114 350.1.13.10 4.2.7.2.686 [id number] 220 [id number] 2020-04-11 00:00:00 2020-04-11 00:00:00 Orders Only Doctor Unassigned, [place] [facility] 1.2.840.114 350.1.13.10 4.2.7.2.686 [id number] 009 [id number] 2020-04-09 00:00:00 2020-04-09 00:00:00 [facility] 1.2.840.114 350.1.13.10 4.2.7.2.686 [id number] 220 [id number] 2020-04-08 00:00:00 2020-04-08 00:00:00 Telephone Milly Florecita Weldon [facility] Office Building One 1.2.840.114 350.1.13.10 4.2.7.2.686 [id number] 044 [id number] 2020-04-01 00:00:00 2020-04-01 00:00:00 [facility] 1.2.840.114 350.1.13.10 4.2.7.2.686 [id number] 2020-03-31 14:30:00 2020-03-31 14:30:00 Outpatient R MODESTO YEE [facility] [id number] [facility] 2020-03-31 13:18:18 2020-03-31 14:18:48 Office Visit [place] Yee [facility] 1..840.114 350.1.13.10 4.2.7.2.686 [id number] 2020-03-31 00:00:00 2020-03-31 00:00:00 Orders Only Doctor Unassigned, [place] [facility] 1..840.114 350.1.13.10 4.2.7.2.686 [id number] [id number] 2020-02-20 14:15:00 2020-02-20 14:15:[address] [facility] [id number] [facility] 2020-02-14 08:00:00 2020-02-14 08:00:[address] [facility] [id number] [facility] 2020-02-11 13:00:00 2020-02-11 13:00:00 [facility] [id number] [facility] 2020-01-31 09:45:00 2020-01-31 09:45:[address] [facility] [id number] [facility] 2020-01-02 13:45:00 2020-01-02 13:45:[address] [facility] [id number] [facility] 2020-01-01 11:00:00 2020-01-01 11:00:[address] [facility] [id number] [facility] 2019-12-11 10:20:00 2019-12-11 10:20:[address] [facility] [id number] [facility] 2019-10-08 11:00:00 2019-10-08 11:00:00 Outpatient Vee LEONARDOMODESTO WATERS [facility] [id number] [facility] 2019-10-02 11:15:00 2019-10-02 11:15:00 Outpatient Vee NETTLESDILMA FLORECITA [facility] [id number] [facility] 2019-09-10 15:30:00 2019-09-10 15:30:00 [facility] [id number] [facility] 2019-09-10 12:30:00 2019-09-10 12:30:00 Outpatient [facility] [id number] [facility] 2019-08-28 16:00:00 2019-08-28 16:00:00 Outpatient Vee [address]ESDILMAFL[address]ITA [facility] [id number] [facility] 2019-08-27 09:05:00 2019-08-27 09:05:[address] [facility] [id number] [facility] 2019-06-11 14:45:00 2019-06-11 14:45:00 Outpatient [facility] [id number] [facility] 2018-05-03 10:54:00 2018-05-03 10:54:00 Outpatient [facility] Medicine [id number] [facility] Results Test Description Test Time Test Comments Results Result Co mments Source [facility] [id number] 03:41:26 * Test Item Value Reference Range Interpretation Comme nts TSH (test code = 7752012509) 0.45-4.70 L Lab Interpretation (test cod e = 09071-0) Abnormal [facility] CenterCb with [id number] 03:27:58* Test Item Value Reference Range Interpretation Comme nts WBC (test code = 6690-2) 5.48 4.30-11.10 RBC (test code = 789-8) 3.99 3.93-5.25 HGB (test code = 718-7) 12.1 g/dL 11.6-15.0 HCT (test code = 4544-3) 37.3 % 35.7-45.2 MCV (test code = 787-2) 93.5 fL 80.6-95.5 MCH (test code = 785-6) 30.3 pg 25.9-32.8 MCHC (test code = 786-4) 32.4 g/dL 31.6-35.1 RDW-SD (test code = 69374-1) 43.8 fL 39.0-49.9 RDW-CV (test code = 788-0) 12.7 % 12.0-15.5 PLT (test code = 777-3) 208 166-358 MPV (test code = 75716-0) 11.5 fL 9.5-12.9 NRBC/100 WBC (test code = 6474678151) 0.0 0.0-10.0 NRBC x10^3 (test code = 2894963959) See_Comment [Automated messa ge] The system which generated this result transmitted reference range: 10*3/?L. The reference range was not used to interpret this result as normal/abnormal. GRAN MAT (NEUT) % (test code = 770-8) 50.1 % IMM GRAN % (test code = 7184156586) 0.20 % LYMPH % (test code = 736-9) 40.5 % MONO % (test code = 5905-5) 5.7 % EOS % (test code = 713-8) 2.6 % BASO % (test code = 706-2) 0.9 % GRAN MAT x10^3(ANC) (test code = 2357026805) 2.75 10*3/uL 1.88-7.09 IMM GRAN x10^3 (test code = 2774905136) 0.00-0.06 LYMPH x10^3 (test code = 731-0) 2.22 10*3/uL 1.32-3.29 MONO x10^3 (test code = 742-7) 0.31 10*3/uL 0.33-0.92 L EOS x10^3 (test code = 711-2) 0.14 10*3/uL 0.03-0.39 BASO x10^3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 MD [facility] Showing recent visits within past 540 days with a meds authorizing provider and meeting all other requirements Future Appointments No visits were found meeting these conditions. Showing future appointments within next 150 days with a meds authorizing provider and meeting all other requirements Aracelis Anguiano [facility] 2023-08-23 07:19:31 Last Refilled: Disp Refills Start End COLUMBA FAMOTIDINE 40 mg tablet 180 tablet 1 02/08/2023 -- No Sig: TAKE 1 TABLET BY MOUTH IN THE MORNING AND IN THE EVENING Sent to pharmacy as: famotidine 40 mg tablet (PEPCID) Class: eRX Route: Oral Order: [id number] Date/Time Signed: 02/08/2023 14:55 E-Prescribing Status: Receipt confirmed by pharmacy (02/08/2023 2:56 PM CDT) FUROSEMIDE 20 mg tablet 15 tablet 3 05/27/2023 -- No Sig: TAKE 1 TABLET BY MOUTH EVERY OTHER DAY Sent to pharmacy as: furosemide 20 mg tablet (LASIX) Class: eRX Route: Oral Order: [id number] Date/Time Signed: 05/27/2023 16:14 E-Prescribing Status: Receipt confirmed by pharmacy (05/27/2023 4:14 PM COMPOUND WORKER) Recent Visits Date Type Provider Dept 08/19/23 Office Visit Nini Mendenhall PA [facility] 07/20/23 Office Visit Florecita Atkins MD [facility] 05/04/23 Office Visit Florecita Atkins MD [facility] 08/02/22 Office Visit Florecita Atkins MD [facility] 03/31/22 Office Visit Florecita Atkins MD [facility] Showing recent visits within past 540 days with a meds authorizing provider and meeting all other requirements Future Appointments No visits were found meeting these conditions. Showing future appointments within next 150 days with a meds authorizing provider and meeting all other requirements Aracelis Anguiano [facility] 2023-08-15 11:46:15 JULIO CESAR FITZPATRICK (Ybarra: [id number]) Rx #: [id number] Need Help? Call us at Outcome Available without authorization. The member is able to fill the requested drug at the pharmacy. If coverage is still needed or requesting prior to the expiration of a current authorization, a request can be made by sending a fax or calling the number on the back of the member's ID card. Drug Omnipod 5 G6 Pods (Gen 5) [facility] cloud logo Form [employer] Medicare Electronic PA Form (2017 [facility]) Original Claim Info 70,569,MR NON-FORMULARY DRUG, CONTACT PRESCRIBER [facility] 2023-08-15 08:54:57 LVM to let pt know that we do not offer telehealth appointments. If pt calls back, please schedule in office visit Linn Holman [facility] 2023-08-15 08:26:59 Roya Fitzpatrick is a 53 year old female Pt is calling to requesting a telehealth appt, Please advise Sofia Cates [facility] 2023-07-29 07:20:13 Last Refilled: METOCLOPRAMIDE HCL 10 mg aordzh57 /31/2023--NoSig: TAKE 1 TABLET BY MOUTH THREE TIMES A DAYSent to pharmacy as: metoclopramide 10 mg tablet (REGLAN)Class: eRXOrder: [id number]/Time Signed: 02/22/2023 10:59E-Prescribing Status: Receipt confirmed by pharmacy (02/22/2023 10:59 AM CDT) Recent Visits Date Type Provider Dept 07/20/23 Office Visit Florecita Atkins MD [facility] 05/04/23 Office Visit Florecita Atkins MD [facility] 08/02/22 Office Visit Florecita Atkins MD [facility] 03/31/22 Office Visit Florecita Atkins MD [facility] Showing recent visits within past 540 days with a meds authorizing provider and meeting all other requirements Future Appointments No visits were found meeting these conditions. Showing future appointments within next 150 days with a meds authorizing provider and meeting all other requirements Aracelis Anguiano [facility] 2023-06-06 09:35:02 JUAN 02/26/22 NOV 06/21/23 Refill sent OUND WORKER Reese Paulino RN [facility] 2023-04-27 10:41:33 JUAN 02/26/22 NOV None Refill denied OUND WORKER Reese Paulino RN [facility] 2023-04-27 08:43:14 This can be discussed at appointment Next Appt: With Family Medicine (Florecita Atkins MD) 05/04/2023 at 1:45 PM OUND WORKER [facility] 2023-04-26 15:14:42 Roya Fitzpatrick is a 52 year old female Pt is calling stating that she is needing a order for Dexcom for insulin pump. Please contact [phone] (home) Blanc [facility] 2023-04-19 22:47:30 JUAN:02/26/2022 NOV:None Patient needs an appointment for refills .Mattie Tolbert MA 04/19/2023 10:48 PM OUND WORKER Mattie Tolbert MA [facility] 2022-12-22 13:49:22 Formatting of this n ote might be different from the original. Attempted to reach patient No answer left V/M return call . [facility] 2022-12-22 10:29:06 Formatting of this n ote might be different from the original. Roya Fitzpatrick is a 52 year old female that has changed insurance to [employer] and would like to be reassigned to Dr. Atkins. The pt states that a code is needed to get Dr. Atkins reassigned to her. Please contact to assist. Gilda Corona [facility] 2022-11-19 14:31:16 Formatting of this n ote might be different from the original. Sending freestyle in place of Dexcom due to formulary reasons Juanis Huitron LVN [facility] 2022-11-19 10:44:27 Formatting of this n ote might be different from the original. Michele from [facility] called and states that DEXCOM is needing a prior authorization, or provider can call in preferred rx, Freestyle Dom. Please advise. Call back number: [phone], option 5 Amalia Kim [facility] 2022-11-18 17:35:41 Formatting of this n ote might be different from the original. Roya Fitzpatrick is a 52 year old female Patient is concerned because she did not receive her glucose meter that was ordered for her. Please call patient to advise. Tim Carter [facility] 2022-11-17 13:47:55 Formatting of this n ote might be different from the original. Patient appt has been r/s 3x and she is out of medication. Andreea Quiros [facility]
[2024-03-22] MEDS ORDERED: FAMOTIDINE 20 MG/2 ML VIAL IV ONE (13:18)
[2024-03-22] MEDS ORDERED: ONDANSETRON 4 MG/2 ML VIAL ONE (13:18)
[2024-03-22] MEDS ORDERED: NA CHLORIDE 0.9% 1,000 ML ONE ×2 (13:19→13:46)
[2024-03-22 13:24] LABS: Absolute Lymphocytes (CBC) 0.8 K/uL (0.7-4.9); Absolute Monocytes 0.3 K/uL (0.1-1.3); Absolute Neutrophil 7.6 K/uL (1.8-8.0); Basophils % 0.2 % (0-1.3); Eosinophils % 0.4 % (0-4.4); Hematocrit 39.8 % (36.0-45.0); Hemoglobin 13.2 g/dL (12.0-15.0); Lymphocytes % 9.4 % (15.3-44.8); MCH 30.1 pg (27.0-35.0); MCHC 33.1 g/dL (32.0-36.0); MPV 9.1 fL (7.6-11.3); Monocytes % 3.5 % (3.3-12.3); Neutrophils % 86.5 % (41.7-73.7); Nucleated Red Blood Cells % 0.1 % (0-0); Platelets 278 thou/uL (152-406); RBC Red Blood Cell Count 4.37 M/uL (3.86-4.86); Red Cell Distribution Width 13.1 % (12.1-15.2)
[2024-03-22 13:38] LABS: Albumin 3.9 g/dL (3.4-5.0); Albumin/Globulin Ratio 0.8 (1.1-1.8); Anion Gap 12.6 mEq/L (5.0-15.0); Bilirubin Total 0.5 mg/dL (0.2-1.0); Potassium 3.6 mEq/L (3.5-5.1); Protein, Total 8.9 g/dL (6.4-8.2)
[2024-03-22] MEDS ORDERED: INSULIN REGULAR (HUMAN) 100 UNIT/ML ONE (13:46)
--- NOTE | 2024-03-22 14:25 | RAD REPORT ---
EXAMINATION: CT ABDOMEN AND PELVIS WITHOUT CONTRAST CLINICAL INDICATION: Female, 53 years old.n/v/d;Abd pain TECHNIQUE: CT abdomen and pelvis was performed, without IV contrast, as per department protocol. Axia l, sagittal and coronal reconstructions were obtained. One or more of the following dose reduction techniques were used: Automated exposure control, adjustment of the mA and/or kV according to the pat ient size, and/or iterative reconstruction. Unless otherwise specified, incidental findings do not require dedicated imaging follow-up. [id number]. IV CONTRAST: Not administered. COMPARISON: 08/12/2023 FINDINGS: The lack of intravenous contrast limits the sensitivity of this exam for evaluation of solid visceral organs, vascular structures, and retroperitoneum. LOWER CHEST: The visualized lung bases are clear. Circumferentially thickened distal esophagus could reflect esophagitis. LIVER: Normal in size and contour. No focal lesion. GALLBLADDER/BILE DUCTS: Closed technique. Similar extrahepatic biliary duct dilatation.? PANCREAS: Peripancreatic edema has essentially resolved. SPLEEN: Normal size. No focal lesion. ADRENALS: Unchanged right adrenal nodule measuring 15 mm. This has been present since 2019 and is dawit ign. No follow-up is required. KIDNEYS AND URETERS: Normal size and contour. No hydronephrosis. URINARY BLADDER: Normal contour. GASTROINTESTINAL TRACT: Stomach is non-dilated. Small bowel has normal course and caliber. Mass effec t small bowel fluid.. Prominent appendix contains some inspissated material but similar to prior. Wall thickening at the colon extending from the splenic flexure to the rectum. PERITONEUM: No free fluid. Small fat-containing umbilical hernia. ABDOMINAL AORTA AND OTHER VESSELS: Normal caliber aorta and IVC. REPRODUCTIVE ORGANS: No pathologic process. MUSCULOSKELETAL: No acute or suspicious osseous abnormality. ADDITIONAL FINDINGS: None. IMPRESSION: Colonic wall thickening extending from the splenic flexure through the rectum in addition to some non specific small bowel fluid concerning for an enterocolitis. Dilated appendix with inspissated material is similar to prior. No findings or change to suggest acute appendicitis.
[2024-03-22] MEDS ORDERED: PROMETHAZINE INJ 25 MG/ML AMP ONE (14:37)
--- NOTE | 2024-03-22 15:20 | EDPHYS ---
Physician Documentation [facility] Name: Roya Anne Age: 53 yrs Sex: Female : 1970 Arrival Date: 03/22/2024 Time: 13:02 Bed 19 Private MD: ED Physician Melo Small HPI: 03/22 13:08 This 53 yrs old Female presents to ER via EMS with complaints of nausea, sb4 vomiting, diarrhea. 13:09 The patient presents to the emergency department with nausea, vomiting, diarrhea. sb4 Onset: The symptoms/episode began/occurred last night. Possible causes: unknown. The symptoms are aggravated by nothing. The symptoms are alleviated by nothing. Associated signs and symptoms: The patient has no apparent associated signs or symptoms. The patient has experienced similar episodes in the past, a few times, today's symptoms are similar. patient reports history of "stomach problems" denies any recent changes in medications. Historical: - Allergies: 13:06 No Known Allergies; rs5 - PMHx: 13:06 diabetes mellitus; neuropathy; Schizophrenia; rs5 - PSHx: 13:06 None; rs5 - Immunization history:: Adult Immunizations up to date. - Infectious Disease History:: Denies. - Social history:: Smoking status: Patient denies any tobacco usage or history of. ROS: 13:09 Constitutional: Negative for fever, chills, and weight loss, sb4 13:09 Abdomen/GI: Positive for nausea, vomiting, and diarrhea, 13:09 All other systems are negative, Exam: 13:09 Head/Face: Normocephalic, atraumatic. Eyes: Extra-ocular motions intact. Periorbital sb4 areas with no swelling, redness, or edema. ENT: Mucous membranes moist. Cardiovascular: Regular rate and rhythm with a normal S1 and S2. Respiratory: No increased work of breathing, no retractions or nasal flaring. Abdomen/GI: Soft, non-tender, no distension. Skin: Warm, dry with normal turgor. Normal color with no rashes, no lesions, and no evidence of cellulitis. 13:09 Constitutional: The patient appears alert, awake, restless, unkempt, Vital Signs: 13:05 BP 163 / 85; Pulse 89; Resp 17; Temp 98(O); Pulse Ox 98% on R/A; rs5 14:05 BP 137 / 84; Pulse 94; Resp 17; Pulse Ox 99% on R/A; rs5 16:46 BP 130 / 63; Pulse 80; Resp 17; Pulse Ox 94% on R/A; rs5 MDM: 13:07 Medical Screening Exam initiated sb4 15:18 Data reviewed: vital signs, nurses notes, lab test result(s), radiologic studies, and sb4 as a result, I will admit patient. Counseling: I had a detailed discussion with the patient and/or guardian regarding the historical points, exam findings, and any diagnostic results supporting the discharge/admit diagnosis, lab results, radiology results, the need for further work-up and treatment in the hospital. 03/22 13:07 Order name: CBC with Diff; Complete Time: 15:41 sb4 03/22 13:07 Order name: CMP; Complete Time: 13:40 sb4 03/22 13:07 Order name: Lipase; Complete Time: 13:40 sb4 03/22 13:07 Order name: Urinalysis w/ reflexes sb4 03/22 13:08 Order name: UDS sb4 03/22 14:46 Order name: Glucose, Ancillary Testing; Complete Time: 14:46 EDMS 03/22 15:25 Order name: Glucose, Ancillary Testing; Complete Time: 15:32 EDMS 03/22 15:41 Order name: CBC Smear Scan; Complete Time: 15:41 EDMS 03/22 13:42 Order name: CT Abd/Pelvis - Without Contrast; Complete Time: 14:27 sb4 03/22 13:07 Order name: IV Saline Lock; Complete Time: 13:17 sb4 03/22 13:07 Order name: Labs collected and sent; Complete Time: 13:17 sb4 03/22 14:27 Order name: Accucheck; Complete Time: 14:36 sb4 03/22 14:27 Order name: PO challenge; Complete Time: 15:49 sb4 Administered Medications: 13:24 Drug: Famotidine IVP 20 mg IVP once; dilute with 10 mL 0.9% NaCl; give over 2 minutes rs5 Route: IVP; Site: right antecubital; 14:00 Follow up: Response: No adverse reaction rs5 13:24 Drug: Ondansetron IVP 4 mg IVP once; over 2 minutes Route: IVP; Site: right antecubital;rs5 14:01 Follow up: Response: No adverse reaction; Nausea is decreased rs5 13:25 Drug: NS 0.9% IV 1000 ml IV at 1 bolus Per protocol; to be given as a bolus over 60 rs5 minutes Route: IV; Rate: 1 bolus; Site: right antecubital; 14:00 Follow up: Response: No adverse reaction rs5 14:25 Follow up: Response: No adverse reaction; IV Status: Completed infusion; IV Intake: rs5 1000ml 13:47 Drug: Insulin Regular Human IVP 10 units IVP once {Co-Signature: cm10 (katarina Bennett5 Mariia WHITEHEAD).} Route: IVP; Site: right antecubital; 14:07 Follow up: Response: No adverse reaction rs5 13:47 Drug: NS 0.9% IV 1000 ml IV at 1 bolus Per protocol; to be given as a bolus over 60 rs5 minutes Route: IV; Rate: 1 bolus; Site: right antecubital; 14:07 Follow up: Response: No adverse reaction rs5 15:01 Follow up: Response: No adverse reaction; IV Status: Completed infusion; IV Intake: rs5 1000ml 14:40 Drug: Promethazine IVP 12.5 mg IVP once Route: IVP; Site: right antecubital; rs5 15:01 Follow up: Response: No adverse reaction; Nausea is decreased rs5 Disposition: 17:08 Co-signature as Attending Physician, Melo Small MD I reviewed the patient's care rn provided by the Advanced Practice Provider and agree with the diagnosis and treatment plan. Disposition Summary: 03/22/24 15:19 Hospitalization Ordered Notes: Hospitalization Status: Inpatient Admission sb4 Provider: Nahun Esteves sb4 Location: Telemetry/MedSur (Inpatient) sb4 Condition: Fair sb4 Problem: new sb4 Symptoms: have worsened sb4 Bed/Room Type: Standard sb4 Room Assignment: 402(03/22/24 15:45) bc6 Diagnosis - Enterocolitis sb4 - Acute kidney failure, unspecified sb4 - Type 2 diabetes mellitus with hyperglycemia sb4 Forms: - Medication Reconciliation Form sb4 - SBAR form sb4 - Leadership Thank You Letter sb4 Signatures: Dispatcher [employer] EDMelo Callaway MD MD rn Brown, Sophia, PA-C PA-C sb4 Celso Page RN RN rs5 Moriah Pino bc6 Mariia Bennett RN cm10 Corrections: (The following items were deleted from the chart) 13: 13:08 CBC+H.LAB.BRZ ordered. EDMS EDMS 13: 13:08 COMPREHENSIVE METABOLIC PANEL+C.LAB.BRZ ordered. EDMS EDMS 13: 13:08 LIPASE+C.LAB.BRZ ordered. EDMS EDMS 13: 13:08 Urinalysis+U.LAB.BRZ ordered. EDMS EDMS 15:45 15:19 sb4 bc6
--- NOTE | 2024-03-22 15:20 | ER ---
Nurse's Notes [facility] Name: Roya Anne Age: 53 yrs Sex: Female : 1970 Arrival Date: 03/22/2024 Time: 13:02 Bed 19 Private MD: Diagnosis: Enterocolitis;Acute kidney failure, unspecified;Type 2 diabetes mellitus with hyperglycemia Presentation: 03/22 13:05 Chief complaint: EMS states: N/V diarrhea x2. Coronavirus screen: At this time, the rs5 client does not indicate any symptoms associated with coronavirus-19. Ebola Screen: No symptoms or risks identified at this time. Initial Sepsis Screen: Does the patient meet any 2 criteria? No. Patient's initial sepsis screen is negative. Does the patient have a suspected source of infection? No. Patient's initial sepsis screen is negative. Risk Assessment: Do you want to hurt yourself or someone else? Patient reports no desire to harm self or others. Onset of symptoms was March 20, 2024. 13:05 Method Of Arrival: EMS: [facility] 13:05 Acuity: AGATA 3 rs5 Historical: - Allergies: 13:06 No Known Allergies; rs5 - PMHx: 13:06 diabetes mellitus; neuropathy; Schizophrenia; rs5 - PSHx: 13:06 None; rs5 - Immunization history:: Adult Immunizations up to date. - Infectious Disease History:: Denies. - Social history:: Smoking status: Patient denies any tobacco usage or history of. Screenin:06 [facility] ED Fall Risk Assessment (Adult) History of falling in the last 3 months, rs5 including since admission No falls in past 3 months (0 pts) Confusion or Disorientation No (0 pts) Intoxicated or Sedated No (0 pts) Impaired Gait No (0 pts) Mobility Assist Device Used No (0 pt) Altered Elimination No (0 pt) Score/Fall Risk Level 0 - 2 = Low Risk Oriented to surroundings, Maintained a safe environment. Abuse screen: Denies threats or abuse. Nutritional screening: No deficits noted. Tuberculosis screening: No symptoms or risk factors identified. Assessment: 13:05 General: Appears uncomfortable, Behavior is calm, cooperative. Pain: Denies pain. rs5 Neuro: Level of Consciousness is awake, alert, obeys commands, Oriented to person, place, time, situation. Cardiovascular: Patient's skin is warm and dry. Respiratory: Airway is patent Respiratory effort is even, unlabored, Respiratory pattern is regular, symmetrical. GI: Abdomen is round non-distended, Reports diarrhea, nausea, vomiting. 13:05 : No signs and/or symptoms were reported regarding the genitourinary system. EENT: No rs5 signs and/or symptoms were reported regarding the EENT system. Derm: Skin is intact, Skin is pink, warm \T\ dry. Musculoskeletal: Range of motion: intact in all extremities. 13:41 Reassessment: lab called to report elevated BS readings, 538, provider notified. rs5 14:58 Reassessment: Patient and/or family updated on plan of care and expected duration. Pain rs5 level reassessed. Patient is alert, oriented x 3, equal unlabored respirations, skin warm/dry/pink. 16:09 Reassessment: Patient and/or family updated on plan of care and expected duration. Pain rs5 level reassessed. Patient is alert, oriented x 3, equal unlabored respirations, skin warm/dry/pink. 17:00 Reassessment: Patient and/or family updated on plan of care and expected duration. Pain rs5 level reassessed. Patient is alert, oriented x 3, equal unlabored respirations, skin warm/dry/pink. Vital Signs: 13:05 BP 163 / 85; Pulse 89; Resp 17; Temp 98(O); Pulse Ox 98% on R/A; rs5 14:05 BP 137 / 84; Pulse 94; Resp 17; Pulse Ox 99% on R/A; rs5 16:46 BP 130 / 63; Pulse 80; Resp 17; Pulse Ox 94% on R/A; rs5 ED Course: 13:04 Patient arrived in ED. rs5 13:04 Joleen Doyle PA-C is PHCP. rs5 13:05 Celso Page, CHARLEY is Primary Nurse. rs5 13:06 Triage completed. rs5 13:06 Patient has correct armband on for positive identification. Placed in gown. Bed in low rs5 position. Call light in reach. Side rails up X2. 13:07 Melo Small MD is Attending Physician. sb4 13:12 No provider procedures requiring assistance completed. Inserted saline lock: 20 gauge rs5 in right antecubital area, using aseptic technique. Blood collected. Flushed with 10 mL NS. 14:14 CT Abd/Pelvis - Without Contrast In Process Unspecified. EDMS 15:18 Nahun Esteves is Hospitalizing Provider. sb4 17:05 Patient admitted, IV remains in place. rs5 Administered Medications: 13:24 Drug: Famotidine IVP 20 mg IVP once; dilute with 10 mL 0.9% NaCl; give over 2 minutes rs5 Route: IVP; Site: right antecubital; 14:00 Follow up: Response: No adverse reaction rs5 13:24 Drug: Ondansetron IVP 4 mg IVP once; over 2 minutes Route: IVP; Site: right antecubital;rs5 14:01 Follow up: Response: No adverse reaction; Nausea is decreased rs5 13:25 Drug: NS 0.9% IV 1000 ml IV at 1 bolus Per protocol; to be given as a bolus over 60 rs5 minutes Route: IV; Rate: 1 bolus; Site: right antecubital; 14:00 Follow up: Response: No adverse reaction rs5 14:25 Follow up: Response: No adverse reaction; IV Status: Completed infusion; IV Intake: rs5 1000ml 13:47 Drug: Insulin Regular Human IVP 10 units IVP once {Co-Signature: cm10 (melanie Bennett RN).} Route: IVP; Site: right antecubital; 14:07 Follow up: Response: No adverse reaction rs5 13:47 Drug: NS 0.9% IV 1000 ml IV at 1 bolus Per protocol; to be given as a bolus over 60 rs5 minutes Route: IV; Rate: 1 bolus; Site: right antecubital; 14:07 Follow up: Response: No adverse reaction rs5 15:01 Follow up: Response: No adverse reaction; IV Status: Completed infusion; IV Intake: rs5 1000ml 14:40 Drug: Promethazine IVP 12.5 mg IVP once Route: IVP; Site: right antecubital; rs5 15:01 Follow up: Response: No adverse reaction; Nausea is decreased rs5 Medication: 14:05 VIS not applicable for this client. rs5 Intake: 14:25 IV: 1000ml; Total: 1000ml. rs5 15:01 IV: 1000ml; Total: 2000ml. rs5 Outcome: 15:19 Decision to Hospitalize by Provider. sb4 17:05 Admitted to Med/surg accompanied by tech, with chart, rs5 17:05 Condition: stable 17:05 Instructed on the need for admit, Demonstrated understanding of instructions, 17:07 Patient left the ED. rs5 Signatures: Dispatcher [employer] Joleen Holbrook, YOEL DIALLO sb4 Celso Page RN RN rs5 Mariia Bennett RN cm10
[2024-03-22 15:40] LABS: Blood Morphology Comment NOT SEEN (NOT SEEN); Platelet Estimate ADEQ; White Blood Cell Scan OK (OK)
--- NOTE | 2024-03-22 15:59 | P.HP ---
Certification for Inpatient Patient admitted to: Observation With expected LOS: <2 Midnights Patient will require the following post-hospital care: None Practitioner: I am a practitioner with admitting privileges, knowledge of patient current condition, hospital course, and medical plan of care. Services: Services provided to patient in accordance with Admission requirements found in Title 42 Section 412.3 of the Code of Federal Regulations Patient History Date of Service: 03/22/24 Reason for admission: Enterocolitis History of Present Illness: 53-year-old female with history of insulin-dependent diabetes, GERD, gastroparesis, IBS, hypertension, hyperlipidemia presents to the emergency department with chief complaint of abdominal pain, nausea, vomiting, diarrhea for the last 24 hours. She was evaluated in the emergency department her labs are significant for mild CORNEL with a creatinine CT abdomen pelvis without IV contrast showed suspected enterocolitis. Patient still with abdominal pain, nausea and vomiting. She will be admitted for enterocolitis, mild CORNEL Allergies No Known Allergies Allergy (Verified 03/29/17 16:06) Home Medications: Atorvastatin Calcium [Lipitor*] 10 mg PO BEDTIME 08/13/23 Dicyclomine [Bentyl*] 20 mg PO BID 08/13/23 Famotidine 40 mg PO BID 08/13/23 Furosemide 20 mg PO Q48H 08/13/23 Gabapentin 300 mg PO BID 08/13/23 Insulin Lispro [Humalog] 10 units SQ BID 08/13/23 Insulin NPH Hum/Reg Insulin Hm [Humulin 70/30 Kwikpen] 40 units SQ BID 08/13/23 Lisinopril [Zestril] 5 mg PO DAILY 08/13/23 Metoclopramide [Reglan*] 10 mg PO QID PRN 08/13/23 Quetiapine [Seroquel*] 50 mg PO 1300 08/13/23 Quetiapine [Seroquel*] 50 mg PO 2100 08/13/23 Quetiapine [Seroquel*] 100 mg PO 0900 08/13/23 Quetiapine [Seroquel*] 100 mg PO 1700 08/13/23 Zolpidem Tartrate [Ambien*] 10 mg PO BEDTIME 08/13/23 methIMAzole [Tapazole*] 5 mg PO DAILY 08/13/23 - Past Medical/Surgical History Diabetic: Yes -: Bipolar Disorder -: Schizophrenia -: IDDM - gestational DM after at 11yo -: Hyperlipidemia -: neuropathy -: 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 She does not work. She is disabled due to her mental illness. - Family History Mother -: Diabetes - Social History Alcohol use: No CD- Drugs: No Caffeine use: Yes Review of Systems 10-point ROS is otherwise unremarkable Gastrointestinal: Nausea, Vomiting, Abdominal Pain Physical Examination - Physical Exam General: Alert, In no apparent distress, Oriented x3 HEENT: Atraumatic, PERRLA, EOMI Neck: Supple, 2+ carotid pulse no bruit, No LAD Respiratory: Clear to auscultation bilaterally, Normal air movement Cardiovascular: Regular rate/rhythm, Normal S1 S2 Gastrointestinal: Normal bowel sounds, No tenderness Musculoskeletal: No tenderness Integumentary: No rashes Neurological: Normal speech, Normal strength at 5/5 x4 extr Lymphatics: No axilla or inguinal lymphadenopathy - Studies Laboratory Data (last 24 hrs) 03/22/24 03/22/24 13:16 13:16 WBC 8.70 Hgb 13.2 Hct 39.8 Plt Count 278 Sodium 133 L Potassium 3.6 BUN 25 H Creatinine 1.54 H Glucose 538 H* Total Bilirubin 0.5 AST 16 ALT 33 Alkaline Phosphatase 128 H Lipase 49 Assessment and Plan - Plan Assessment: Enterocolitis Intractable vomiting/diarrhea History of GERD/IBS/gastroparesis Diabetes mellitus type 2insulin-dependent with hyperglycemia CORNEL Hyperlipidemia Plan: Enterocolitis Intractable vomiting/diarrhea History of GERD/IBS/gastroparesis Continue Cipro/Flagyl N.p.o. aside from sips of water and ice chips for tonight Continue Pepcid, Reglan, dicyclomine Takes Linzess at home but is nonformulary Last EGD/colonoscopy "a few years ago" Diabetes mellitus type 2insulin-dependent with hyperglycemia Reports that she takes Tresiba 60 units daily Last taken yesterday Takes 12 units of short acting 3 times daily Also reportedly has an insulin pump and a Dexcom that she has yet to start using CORNEL Continue IV fluids Repeat chemistry in the morning Hyperlipidemia Continue home meds when verified DVT PPX:Lovenox Code status: Full Discharge Plan: Home Plan to discharge in: 24 Hours - Advance Directives Does patient have a Living Will: No Does patient have a Durable POA for Healthcare: No - Code Status/Comfort Care Code Status Assessed: Yes (Full code) Critical Care: No Time Spent Managing Pts Care (In Minutes): 56
[2024-03-22 17:32] VITALS: BMI 4237.8
[2024-03-22] MEDS ORDERED: ACETAMINOPHEN 325 MG TABLET PO PRN (17:49)
[2024-03-22] MEDS ORDERED: METOCLOPRAMIDE 10 MG/2mL INJ IV PRN (17:49)
[2024-03-22] MEDS: INSULIN REGULAR (HUMAN) 100 UNIT/ML SQ SCH (18:05)
[2024-03-22] MEDS: METRONIDAZOLE 500mg IVPB 500 MG/100 ML BAG IV SCH (18:07)
[2024-03-22] MEDS: NA CHLORIDE 0.9% 1,000 ML IV SCH (18:12)
[2024-03-22] MEDS: ONDANSETRON 4 MG/2 ML VIAL IV PRN (18:51)
[2024-03-22] MEDS: DICYCLOMINE HCL 10 MG CAP PO SCH (20:50)
[2024-03-22] MEDS: GABAPENTIN 300 MG CAP PO SCH (20:51)
[2024-03-22] MEDS: ZOLPIDEM TARTRATE 10 MG TABLET PO SCH (20:51)
[2024-03-22] MEDS: FAMOTIDINE 20 MG TAB PO SCH (20:51)
[2024-03-22 21:25] VITALS: O2SAT 97
[2024-03-22] MEDS: CIPROFLOXACIN 400mg IV 400 MG/200 ML BAG IV SCH (22:46)
[2024-03-23 06:15] LABS: Absolute Eosinophils 0.2 K/uL (0-0.5); Absolute Lymphocytes (CBC) 1.9 K/uL (0.7-4.9); Absolute Monocytes 0.4 K/uL (0.1-1.3); Basophils % 0.4 % (0-1.3); Eosinophils % 2.4 % (0-4.4); Hematocrit 33.6 % (36.0-45.0); Hemoglobin 11.1 g/dL (12.0-15.0); Lymphocytes % 29.3 % (15.3-44.8); MCHC 32.9 g/dL (32.0-36.0); MCV 91.2 fL (80-100); MPV 9.2 fL (7.6-11.3); Monocytes % 6.1 % (3.3-12.3); Neutrophils % 61.8 % (41.7-73.7); Platelets 203 thou/uL (152-406); RBC Red Blood Cell Count 3.69 M/uL (3.86-4.86); Red Cell Distribution Width 13.2 % (12.1-15.2)
[2024-03-23 06:40] LABS: Albumin 3.1 g/dL (3.4-5.0); Albumin/Globulin Ratio 0.7 (1.1-1.8); Anion Gap 7.6 mEq/L (5.0-15.0); Bilirubin Total 0.4 mg/dL (0.2-1.0); Globulin 4.4 g/dL (2.3-3.5); Potassium 3.6 mEq/L (3.5-5.1); Protein, Total 7.5 g/dL (6.4-8.2)
[2024-03-23] MEDS: lisinopriL 5 MG TAB PO SCH (08:05)
[2024-03-23] MEDS: ENOXAPARIN 40 MG/0.4 ML SQ SCH (08:06)
[2024-03-23] MEDS: POTASSIUM CL SA 10 MEQ TAB PO ONE (08:06)
[2024-03-23] MEDS: MORPHINE 2 MG/ML SYR IV PRN (08:15)
[2024-03-23] MEDS: Banana Flakes/T-Galactooligos 1 Dose Packet PO SCH (09:00)
--- NOTE | 2024-03-23 13:17 | P.PN ---
Date of Service: 03/23/24 Subjective Awake complaining of diarrhea once this morning after drinking water Overstimulated reaction to IV machine beeping urine toxicology screening pending ROS 10 point ROS as noted above, otherwise negative Physical Exam General: Alert and Oriented x3, NAD HEENT: Atraumatic, PERRLA, EOMI Neck: Supple, 2+ carotid pulse no bruit, No LAD Respiratory: Clear to auscultation bilaterally, Nonlabored breathing, on RA Cardiovascular: RRR, Normal S1 S2, no murmur noted Gastrointestinal: Normal bowel sounds, No tenderness Musculoskeletal: No tenderness, 2 + peripheral pulses Integumentary: No rashes Neurological: Normal speech, Normal strength at 5/5 x4 extr Lymphatics: No axilla or inguinal lymphadenopathy Vitals Reviewed Problem list Enterocolitis Intractable vomiting/diarrhea History of GERD/IBS/gastroparesis Diabetes mellitus type 2insulin-dependent with hyperglycemia CORNEL Hyperlipidemia Schizophrenia Assessment and Plan Enterocolitis Intractable vomiting/diarrhea History of GERD/IBS/gastroparesis Continue Cipro/Flagyl N.p.o. with sips of water and ice chips, advance to CLD Continue Pepcid, Reglan, dicyclomine, banana flakes Takes Linzess at home but is nonformulary Last EGD/colonoscopy "a few years ago" Diabetes mellitus type 2insulin-dependent with hyperglycemia Reports that she takes Tresiba 60 units daily Last taken yesterday Takes 12 units of short acting 3 times daily Also reportedly has an insulin pump and a Dexcom that she has yet to start using Serum glucose 182, A1c 10 CORENL Continue IV fluids BUN/creatinine 15/0.9, GFR 76 Hyperlipidemia Schizophrenia Continue home meds when verified DVT PPX:Lovenox Code status: Full Discharge Plan: Home Plan to discharge in: 24 Hours
[2024-03-23 13:55] LABS: Magnesium 1.8 mg/dL (1.6-2.4); Phosphorus 1.8 mg/dL (2.5-4.9)
[2024-03-23] MEDS: LACTOBACILLUS/ACIDOPHILUS TAB PO SCH (14:32)
--- NOTE | 2024-03-23 16:03 | P.DS ---
Admission Date: 03/22/24 Discharge Date: 03/23/24 Disposition: ROUTINE DISCHARGE Discharge Condition: GOOD Reason for Admission: Enterocolitis Brief History of Present Illness: Diagnosis Enterocolitis Intractable vomiting/diarrhea History of GERD/IBS/gastroparesis Diabetes mellitus type 2insulin-dependent with hyperglycemia CORNEL Hyperlipidemia Schizophrenia HPI 03/22/2024 Roya Anne is a 53-year-old female with history of insulin-dependent diabetes, GERD, gastroparesis, IBS, hypertension, hyperlipidemia presents to the emergency department with chief complaint of abdominal pain, nausea, vomiting, diarrhea for the last 24 hours. She was evaluated in the emergency department her labs are significant for mild CORNEL with a creatinine CT abdomen pelvis without IV contrast showed suspected enterocolitis. Patient still with abdominal pain, nausea and vomiting. She will be admitted for enterocolitis, mild CORNEL Hospital Course: Roya Anne is a pleasant 53-year-old female with a past medical history significant for insulin-dependent diabetes, GERD, gastroparesis, IBS, hypertension, hyperlipidemia, and schizophrenia who was admitted to the [facility] on 03/22/2024 for enterocolitis. Helen presented to the ED with abdominal pain, nausea, vomiting and diarrhea. CT abd/pelvis reports eneterocolitis. She has a distory of gastroparesis and IBS. She tolerated NPO with sips of water then advanced to CLD. One soft BM during this admission. She remained hemodynamically stable and able to discharge home with PO antibiotics and continued slow diet advancement. She remained afebrile, urinating without difficulty, and ambulating independently. On 03/23/2024, Roya was seen on morning rounds and deemed medically stable for discharge with family support. Roya was discharged with instructions to schedule follow-up appointments with PCP. Roya was provided prescriptions for Augmentin and Flagyl. Physical Exam General: Alert and Oriented x3, NAD HEENT: Atraumatic, PERRLA, EOMI Neck: Supple, 2+ carotid pulse no bruit, No LAD Respiratory: Clear to auscultation bilaterally, Nonlabored breathing, on RA Cardiovascular: mild tachycardia, Normal S1 S2, no murmur noted Gastrointestinal: Normal bowel sounds, No tenderness Musculoskeletal: No tenderness, 2 + peripheral pulses Integumentary: No rashes Neurological: Normal speech, Normal strength at 5/5 x4 extr Lymphatics: No axilla or inguinal lymphadenopathy Vital Signs/Physical Exam: Temp Pulse Resp BP Pulse Ox 98.2 F 101 H 20 107/56 L 97 03/23/24 12:00 03/23/24 12:00 03/23/24 12:00 03/23/24 12:00 03/23/24 12:00 Laboratory Data at Discharge: WBC 6.50 thou/uL (4.3-10.9) 03/23/24 05:51 Hgb 11.1 g/dL (12.0-15.0) L D 03/23/24 05:51 Hct 33.6 % (36.0-45.0) L 03/23/24 05:51 Plt Count 203 thou/uL (152-406) D 03/23/24 05:51 Sodium 141 mEq/L (136-145) D 03/23/24 05:51 Potassium 3.6 mEq/L (3.5-5.1) 03/23/24 05:51 BUN 15 mg/dL (7-18) 03/23/24 05:51 Creatinine 0.90 mg/dL (0.55-1.02) 03/23/24 05:51 Glucose 182 mg/dL (74-106) H 03/23/24 05:51 Phosphorus 1.8 mg/dL (2.5-4.9) L 03/23/24 05:51 Magnesium 1.8 mg/dL (1.6-2.4) 03/23/24 05:51 Total Bilirubin 0.4 mg/dL (0.2-1.0) 03/23/24 05:51 AST 23 U/L (15-37) 03/23/24 05:51 ALT 28 U/L (13-56) 03/23/24 05:51 Alkaline Phosphatase 99 U/L (45-117) D 03/23/24 05:51 Lipase 18 U/L (13-75) 03/23/24 05:51 Home Medications: Dicyclomine [Bentyl*] 20 mg PO BID 08/13/23 Famotidine 40 mg PO BID PRN MDD 5 08/13/23 Furosemide 20 mg PO Q48H 08/13/23 Gabapentin 300 mg PO BID 08/13/23 Insulin Lispro [Humalog] 12 units SQ TIDWM 08/13/23 Lisinopril [Zestril] 5 mg PO DAILY 08/13/23 Metoclopramide [Reglan*] 10 mg PO TIDWM 08/13/23 Zolpidem Tartrate [Ambien*] 10 mg PO BEDTIME 08/13/23 Linaclotide [Linzess] 290 mcg PO DAILY 03/22/24 Quetiapine [Seroquel*] 300 mg PO BID 03/22/24 Amoxicillin/Potassium Clav [Augmentin 500-125 Tablet] 1 each PO BID 7 Days #14 tab 03/23/24 metroNIDAZOLE [Flagyl] 375 mg PO BID 7 Days #14 cap 03/23/24 New Medications: Amoxicillin/Potassium Clav [Augmentin 500-125 Tablet] 1 each PO BID 7 Days #14 tab metroNIDAZOLE [Flagyl] 375 mg PO BID 7 Days #14 cap Physician Discharge Instructions: 1. Please call and schedule a follow-up appointment with your PCP in 3-5 days - Please follow-up with your PCP for medication refills/adjustments 2. Continue diabetic diet, slow diet advancement from clear liquid to soft GI as the digestive system heals 3. No activity restrictions 4. Return to the ED if symptoms worsen New medications Augmentin 500 mg twice daily x 7 days- take with food Flagyl 375 mg twice daily x 7 days Diet: ADA Activity: Ad keagan Followup: Scottie Rodriguez MD [Primary Care Provider] - 2-3 Days
[2024-03-23] MEDS ORDERED: QUETIAPINE 100MG TAB PO SCH (16:10)
[2024-03-23 16:24] LABS: Specific Gravity 1.017 (1.005-1.030); Urine Bacteria <20 /HPF (<20); Urine Bilirubin NEGATIVE (Negative); Urine Blood Negative (Negative); Urine Clarity Turbid (Clear); Urine Color Light-Yellow (Yellow); Urine Culture Reflex Order NOT NEEDED; Urine Glucose 3+ (Negative); Urine Ketones 1+ (Negative); Urine Microscopic Reflex YN ORDER UMIC; Urine Mucus Slight /HPF (None Seen); Urine Nitrite NEGATIVE (Negative); Urine Protein NEGATIVE (Negative); Urine RBC <5 /HPF (None Seen); Urine Urobilinogen Normal (Normal); Urine WBC <5 /HPF (<5); Urine Yeast (Budding) Trace /HPF (None Seen); Urine pH 6.5 (5.0-7.0)
[2024-03-23 16:42] VITALS: BP 113/67; TEMP 97.8
[2024-03-24] MEDS ORDERED: CEFTRIAXONE 1,000 MG in NA CHLORIDE 0.9% 50 ML IVPB SCH (09:00)
== END 2024-03-23 16:45 | disposition home or self-care (01) ==
LOC: ER 13:02 → ERHOLD 15:34 → 4TH 16:48
PROVIDERS: ADMIT Internal Medicine; ATTEND Internal Medicine
DX: K52.9 Noninfective gastroenteritis and colitis, unspecified (principal); K21.9 Gastro-esophageal reflux disease without esophagitis; N17.9 Acute kidney failure, unspecified; E78.5 Hyperlipidemia, unspecified; E11.65 Type 2 diabetes mellitus with hyperglycemia; E11.43 Type 2 diabetes mellitus with diabetic autonomic (poly)neuropathy; K31.84 Gastroparesis; F20.9 Schizophrenia, unspecified
CPT/HCPCS: 96361; 85025 ×2; 81001; 36415; 83735; 84100; 82947 ×9; 83036; 83690 ×2; 80053 ×2; 74176; 96375; 96374; 99285; J2550; J1650; J2270 ×2; J2405 ×3; J0744 ×2; J7030 ×4; G0378

== ENCOUNTER 2024-08-26 15:21 | Emergency (ER) | payer OTHER ==
--- OUTSIDE RECORDS SUMMARY | 2024-08-26 15:32 | XMS REPORT | Continuity of Care Document ---
Author Name Unknown Address [address] [facility] [address] [place] [address] [facility] [place] Address [address] [facility] [address] [place] [address] Care Team Providers Care Knowledge Engineer Name Role Phone Mary Ann Garduno Primary Care Physician [phone] Gabriel Mccallh M Attending Clinician Unavailable VAL PRESTON Attending Clinician Unavailable Florecita Atkins MD Attending Clinician + [phone] Renzo Murrell Attending Clinician Unavailable Val Preston MD Attending Clinician [phone] Vincenzo Sanches MD Attending Clinician [phone] FLORECITA ATKINS Attending Clinician Nissa schultz Doctor Unassigned, [place] Attending Clinician U Nini Patten Attending Clinician [phone] NINI MENDENHALL Attending Clinician Unavailable TIM CLARKE Attending Clinician JERAD Bhatt Attending Clinician Unavailable Blanquita WHITEHEAD, Bindu Haley Attending Clinician Unavailab mynor Jerez PL SQL PROGRAMMER, Amarilys Attending Clinician [phone] Kary ROGERS, Val Acuña Attending Clinician [phone] Milly ROGERS, Florecita Weldon Attending Clinician [phone] SQL PROGRAMMER, Amarilys Attending Clinician [phone] AMARILYS JEREZ Attending Clinician Unavailable Myron ROGERS, Vincenzo Alan Attending Clinician +[phone] Lab, Ang - Db Attending Clinician Unavailable Nini Granados Attending Clinician + [phone] VINCENZO SANCHES Attending Clinician UnavailRAUL Oro Attending Clinician Unavailable Doctor Unassigned, [place] Attending Clinician U bette Newton MD, Eduardo Attending Clinician [phone] Ashely ROGERS, Tony Attending Clinician [phone] TONY FELDMAN Attending Clinician Unavailable [email or web address]_S Attending Clinician Unavailsudha DUTTONP, Princess Attending Clinician UnavailBernadine Okeefe MA Attending Clinician Unavaila rowena LIZARRAGA, PRINCESS Attending Clinician Unavailable Joselito ROGERS, [place] Attending Clinician UnavailMODESTO Morris Attending Clinician Unavailable Snatana WHITEHEAD, Javier Attending Clinician Unavailab AMIRA Hollingsworth Attending Clinician Unavailab Sandy, Amira Zhang Attending Clinician + [phone] Juan WHITEHEAD, Tika Haley Attending Clinician Unavailab Arce, [facility] Attending Clinicia chen Unavailable SOFÍA PURCELL Attending Clinician Unavailab TEA Hardy Attending Clinician Unavailable ROSALINDA GHOSH Attending Clinician Unavaila ble [email or web address] Admitting Clinician Unavaila rowena Payers Payer Name Policy Type Policy Number Effective Date Expirati on Date Source WELLPOINT DUAL CORDINATION [facility] SNP [id number] 2024 00:00:00 [facility] STAR PLUS [id number] 2023 00:00:00 EHSAN GAVIN DUAL COMPLETE CAP([facility] D-SNP OA) 7 [id number] 2023 00:00:00 MEDICAID [place] [id number] 2021 00:00:00 2023 00:00:00 JANAK ORTEZ [id number] Janusz Preferred Medicare (HMO) 111 [id number] [facility] [place] PLUS/[employer] [id number] 2014 00:00:00 Problems Condition Name Condition Details Condition Category Status Onset Date Resolution Date Last Treatment Date Treating Clinician Comments Source Type 1 diabetes mellitus with hyperglyce tami (multi HCC) Type 1 diabetes mellitus with hyperglyce tami (multi HCC) Disease Active 2023-04 0 00:00: 00 Alejandra Seybold - Externa l Lumbar pain Lumbar pain Disease Active 10-25 00:00: 00 [facility] Hepatitis C Hepatitis C Disease Active [facility] Bipolar 1 disorder Bipolar 1 disorder Disease Active [facility] Osteoarthr itis Osteoarthr itis Problem [facility] Insomnia Insomnia Problem [facility] Diabetic neuropathy Diabetic neuropathy Problem [facility] Diabetes mellitus without complicati on Diabetes DMII without complicati ons Problem [facility] Hyperlipid emia Hyperlipid emia Problem [facility] [id number] Irritable bowel syndrome with constipati on Problem [facility] [id number] Type 2 diabetes mellitus with other scrip clerk y complicati ons Problem [facility] [id number] Neuropathy Problem Com [facility] Mixed hyperlipid emia Mixed hyperlipid emia Problem [facility] Anemia Anemia Problem [facility] [id number] Gastroesop hageal reflux disease without esophagiti s Problem [facility] Excessive and frequent menstruati on Heavy menses Problem [facility] Schizophre danilo Other schizophre danilo Problem [facility] [id number] Type 2 diabetes mellitus with hyperglyce tami Problem [facility] [id number] [facility] current use of insulin Problem [facility] [id number] Gastropare sis Problem [facility] Hemoptysis Hemoptysis Disease Resolve d 5-09 00:00: 00 2019-08-27 00:00:00 2019-08-27 09:28:38 [facility] Hematemesi s Hematemesi s Disease Resolve d 0 8-21 00:00: 00 2019-08-27 00:00:00 2019-08-27 09:28:40 [facility] Allergies, Adverse Reactions, Alerts Allergy Name Allergy Type Status Severity Reaction(s) Onset Date Inactive Date Treating Clinician Comments Source NO KNOWN ALLERGIE S Drug Class Active [facility] Family History Family Member Diagnosis Comments Start Date Stop Date Sourc e Maternal grandmother Cancer [facility] Social History Social Habit Start Date Stop Date Quantity Comments Source Gender identity [facility] History of tobacco use Cigarette Smoker [facility] ASSERTION Not [facility] History of Occupation [facility] Sexual orientation Hemant Valverde - External Alcoholic beverage intake 2024-08-13 00:00:00 2024-08-13 00:00:00 Current non-drinker of alcohol (finding) [facility] Sex 2024-01-09 20:44:26 2024-01-09 20:44:26 Female (finding) Alejandra Valverde - External Cigarettes smoked current (pack per day) - Reported 2023-10-03 00:00:00 2023-10-03 00:00:00 [facility] Cigarette pack-years 2023-10-03 00:00:00 2023-10-03 00:00:00 [facility] Tobacco use and exposure 2023-10-03 00:00:00 2023-10-03 00:00:00 Former smokeless tobacco user [facility] Alcohol intake 2023-08-20 00:00:00 2023-08-20 00:00:00 Current non-drinker of alcohol (finding) [facility] History of Social function 2023-07-20 00:00:00 2023-07-20 00:00:00 [facility] Exposure to SARS-CoV-2 (event) 2022-07-23 00:00:00 2022-08-02 10:00:00 Not sure [facility] Sex assigned at 1970 00:00:00 1970 00:00:00 Alejandra Mehta Smoking Status Start Date Stop Date Source Tobacco smoking consumption unknown Alejandra Mehta Ex-smoker 2023-10-03 00:00:00 2023-10-03 00:00:00 [facility] Medications Ordered Medication Name Filled Medication Name Start Date Stop Date Current Medication? Ordering Clinician Indication Dosage Frequency Signature (SIG) Comments Components Source insulin lispro (HUMALOG KWIKPEN INSULIN) 100 unit/mL pen injector 08-13 00:00: 00 Yes [id number] 9101 16U inject 16 Units under the skin in the morning and 16 Units at noon and 16 Units in the evening. inject before meals. [facility] DICYCLOMINE 20 mg tablet 08-09 00:00: 00 Yes [id number] 20mg TAKE 1 TABLET BY MOUTH IN THE MORNING AND IN THE EVENING [facility] FUROSEMIDE 20 mg tablet 16 00:00: 00 Yes [id number] 20mg TAKE 1 TABLET BY MOUTH EVERY OTHER DAY [facility] FAMOTIDINE 40 mg tablet 08-08 00:00: 00 Yes [id number] TAKE 1 TABLET BY MOUTH TWICE A DAY IN THE MORNING AND IN THE EVENING [facility] GABAPENTIN 300 mg capsule 07-24 00:00: 00 Yes [id number] TAKE 1 CAPSULE BY MOUTH IN THE MORNING AND IN THE EVENING [facility] METOCLOPRAM DANIEL HCL 10 mg tablet 07-24 00:00: 00 Yes [id number] TAKE 1 TABLET BY MOUTH IN THE MORNING AT NOON AND IN THE EVENING [facility] albuterol sulfate HFA 90 mcg/actuati on aerosol inhaler 24 00:00: 00 Yes INHALE 1 TO 2 PUFFS BY MOUTH EVERY 4 TO 6 HOURS NEEDED [facility] METOCLOPRAM DANIEL HCL 10 mg tablet 06-19 00:00: 00 07-24 00:00 :00 No [id number] TAKE 1 TABLET BY MOUTH IN THE MORNING AT NOON AND IN THE EVENING [facility] gabapentin 300 mg capsule 05-22 00:00: 00 Yes [id number] TAKE 1 CAPSULE BY MOUTH IN THE MORNING AND IN THE EVENING [facility] insulin degludec (TRESIBA FLEXTOUCH U-200) 200 unit/mL (3 mL) InPn 05-18 00:00: 00 Yes [id number] 9101 60U inject 60 Units under the skin in the morning. [facility] DICYCLOMINE 20 mg tablet 05-04 00:00: 00 08-09 00:00 :00 No [id number] 20mg TAKE 1 TABLET BY MOUTH IN THE MORNING AND IN THE EVENING [facility] methIMAzole 5 mg tablet 05-02 00:00: 00 Yes [id number] 5mg Take 1 tablet by mouth in the morning. [facility] zolpidem 10 mg tablet 05-02 00:00: 00 Yes [id number] 10mg Take 1 tablet by mouth at bedtime as needed for Insomnia. [facility] atorvastati n 10 mg tablet 04-30 00:00: 00 Yes [id number] Take 1 tablet by mouth everyday at bedtime. Must be seen on 02/21/23 for additional refills [facility] Insulin Jackson, Disposable, (COMFORT EZ PEN NEEDLES) 31 gauge x 1/4" Ndle 04-30 00:00: 00 Yes Use as directed [facility] Blood-Gluco se Transmitter (DEXCOM G6 TRANSMITTER ) Barb 04-30 00:00: 00 Yes [id number] 9101 Use as directed [facility] Blood-Gluco se Sensor (DEXCOM G7 SENSOR) Barb 04-30 00:00: 00 Yes [id number] 9101 Use as directed every 10 days [facility] Blood-Gluco se Sensor (DEXCOM G7 SENSOR) Barb 04-30 00:00: 00 Yes [id number] 9101 Use as directed every 10 days [facility] Blood-Gluco se Transmitter (DEXCOM G6 TRANSMITTER ) Barb 1-06 00:00: 00 08-13 00:00 :00 No [id number] 9101 Use as directed [facility] insulin degludec (TRESIBA FLEXTOUCH U-200) 200 unit/mL (3 mL) InPn 1- 00:00: 00 05-17 00:00 :00 No [id number] 9101 60U inject 60 Units under the skin in the morning. [facility] Blood-Gluco se Transmitter (DEXCOM G6 TRANSMITTER ) Barb 1-03 00:00: 00 04-30 00:00 :00 No [id number] 9101 Use as directed [facility] ALBUTEROL 90 mcg/actuati on inhaler 2023-04 2-16 00:00: 00 Yes INHALE 1 TO 2 PUFFS BY MOUTH EVERY 4 TO 6 HOURS NEEDED [facility] METOCLOPRAM DANIEL HCL 10 mg tablet 2023-04 2- 00:00: 00 Yes [id number] TAKE 1 TABLET BY MOUTH IN THE MORNING AT NOON AND IN THE EVENING [facility] gabapentin 300 mg capsule 2023-04 2-09 00:00: 00 05-22 00:00 :00 No [id number] TAKE 1 CAPSULE BY MOUTH IN THE MORNING AND IN THE EVENING [facility] linaCLOtide (LINZESS) 290 mcg Cap 2023-04 1- 00:00: 00 Yes [id number] TAKE 1 CAPSULE BY MOUTH ONCE DAILY 30 MINUTES BEFORE THE FIRST MEAL OF THE DAY [facility] ZOLPIDEM 10 mg tablet 2023-04 1-11 00:00: 00 05-02 00:00 :00 No [id number] 10mg TAKE 1 TABLET BY MOUTH EVERY DAY AT BEDTIME NEEDED FOR INSOMNIA [facility] METOCLOPRAM DANIEL HCL 10 mg tablet 2023-04 0-29 00:00: 00 04-05 00:00 :00 No [id number] TAKE 1 TABLET BY MOUTH IN THE MORNING AT NOON AND IN THE EVENING [facility] ZOLPIDEM 10 mg tablet 2023-04 00:00: 00 03-05 00:00 :00 No [id number] 10mg TAKE 1 TABLET BY MOUTH AT BEDTIME NEEDED FOR INSOMNIA [facility] DEXCOM G6 TRANSMITTER Barb 2023-04 0 00:00: 00 04-27 00:00 :00 No [id number] 9101 CHANGE every three MONTHS as directed with G6 Sensor [facility] OMNIPOD 5 G6 PODS, GEN 5, Crtg 01-22 00:00: 00 Yes CHANGE pod every THREE DAYS as directed. [facility] ZOLPIDEM 10 mg tablet 01-03 00:00: 00 02-05 00:00 :00 No [id number] 10mg TAKE 1 TABLET BY MOUTH EVERY DAY AT BEDTIME NEEDED FOR INSOMNIA. [facility] DICYCLOMINE 20 mg tablet 12-25 00:00: 00 Yes [id number] 20mg TAKE 1 TABLET BY MOUTH IN THE MORNING AND IN THE EVENING [facility] metoclopram daniel HCl 10 mg tablet 12-22 00:00: 00 02-20 00:00 :00 No [id number] 10mg Take 1 tablet by mouth in the morning and 1 tablet at noon and 1 tablet in the evening. [facility] albuterol 90 mcg/actuati on inhaler 12-18 00:00: 00 04-09 00:00 :00 No INHALE 1 TO 2 PUFFS BY MOUTH EVERY 4 TO 6 HOURS NEEDED [facility] linaCLOtide (LINZESS) 290 mcg Cap 12-13 00:00: 00 03-07 00:00 :00 No [id number] TAKE 1 CAPSULE BY MOUTH ONCE DAILY 30 MINUTES BEFORE THE FIRST MEAL OF THE DAY [facility] GABAPENTIN 300 mg capsule 12-06 00:00: 00 04-02 00:00 :00 No [id number] TAKE 1 CAPSULE BY MOUTH IN THE MORNING AND IN THE EVENING [facility] Alcohol Swabs PadM 12-05 00:00: 00 12-05 00:00 :00 No Use 1 new pad to clean site before injecting UP TO SIX TIMES DAILY & TWICE DAILY before insulin injection (TOTAL 8 TIMES A DAY) [facility] COMFORT EZ PEN NEEDLES 31 gauge x 1/4" Ndle 12-04 00:00: 00 04-30 00:00 :00 No Use 1 new pen needle with insulin pen injector to inject insulin subcutaneo usly TWICE DAILY [facility] zolpidem 10 mg tablet 11-27 00:00: 00 01-03 00:00 :00 No [id number] 10mg Take 1 tablet by mouth at bedtime as needed for Insomnia. [facility] Blood-Gluco se Meter,Keshawn nuous (DEXCOM G7 SUPERINTENDENT PIER) [facility] 11-08 00:00: 00 Yes [id number] 9101 Use as directed once daily [facility] Blood-Gluco se Meter,Keshawn nuous (DEXCOM G7 SUPERINTENDENT PIER) [facility] 11-08 00:00: 00 Yes [id number] 9101 Use as directed once daily [facility] insulin lispro (HUMALOG KWIKPEN INSULIN) 100 unit/mL pen injector 11-08 00:00: 00 08-13 00:00 :00 No [id number] 9101 12U inject 12 Units under the skin in the morning and 12 Units at noon and 12 Units in the evening. inject before meals. [facility] insulin degludec (TRESIBA FLEXTOUCH U-200) 200 unit/mL (3 mL) InPn 11-08 00:00: 00 04-30 00:00 :00 No [id number] 9101 60U inject 60 Units under the skin in the morning. [facility] zolpidem 10 mg tablet 11-02 00:00: 00 11-27 00:00 :00 No [id number] 10mg Take 1 tablet by mouth at bedtime as needed for Insomnia. [facility] albuterol 90 mcg/actuati on inhaler 11-01 00:00: 12-18 00:00 :00 No INHALE 1 TO 2 PUFFS EVERY 4 TO 6 HOURS NEEDED [facility] zolpidem 10 mg tablet 10-31 00:00: 00 11-02 00:00 :00 No [id number] 10mg TAKE 1 TABLET BY MOUTH EVERY DAY AT BEDTIME NEEDED FOR INSOMNIA [facility] ALCOHOL SWABS PadM 10-09 00:00: 12-05 00:00 :00 No Use to clean area of skin before testing UP TO SIX TIMES DAILY & TWICE DAILY before insulin injection (TOTAL 8 TIMES A DAY) [facility] lisinopriL 2.5 mg tablet 10-03 00:00: 00 Yes [id number] 2.5mg Take 1 tablet by mouth in the morning. [facility] medroxyPROG ESTERone (DEPO-PROVE RA) 150 mg/mL injection 10-02 14:46: 31 10-02 00:00 :00 No 150mg 150 mg by Intramuscu lar route every 3 (three) months. [facility] Blood-Gluco se Sensor (DEXCOM G7 SENSOR) Barb 10-02 00:00: 00 04-30 00:00 :00 No [id number] 9101 Use as directed every 10 days [facility] linaCLOtide (LINZESS) 290 mcg Cap 10-02 00:00: 00 12-06 00:00 :00 No [id number] TAKE 1 CAPSULE BY MOUTH ONCE DAILY 30 MINUTES BEFORE THE FIRST MEAL OF THE DAY [facility] Blood-Gluco se Meter,Keshawn nuous (DEXCOM G7 SUPERINTENDENT PIER) Misc 10-02 00:00: 00 11-06 00:00 :00 No [id number] 9101 Use as directed once daily [facility] insulin degludec (TRESIBA FLEXTOUCH U-200) 200 unit/mL (3 mL) InPn 10-02 00:00: 00 11-06 00:00 :00 No [id number] 9101 60U inject 60 Units under the skin in the morning. [facility] insulin lispro (HUMALOG KWIKPEN INSULIN) 100 unit/mL pen injector 6-10 00:00: 00 11-06 00:00 :00 No [id number] 9101 12U inject 12 Units under the skin in the morning and 12 Units at noon and 12 Units in the evening. inject before meals. [facility] dicyclomine 20 mg tablet 5-31 00:00: 00 12-25 00:00 :00 No [id number] 20mg TAKE 1 TABLET BY MOUTH IN THE MORNING AND IN THE EVENING [facility] gabapentin 300 mg capsule 5-24 00:00: 00 12-06 00:00 :00 No [id number] TAKE 1 CAPSULE BY MOUTH IN THE MORNING AND IN THE EVENING [facility] LISINOPRIL 5 mg tablet 5-06 00:00: 00 10-03 00:00 :00 No [id number] TAKE 1 TABLET BY MOUTH EVERY DAY [facility] FAMOTIDINE 40 mg tablet 4-30 00:00: 00 08-08 00:00 :00 No [id number] TAKE 1 TABLET BY MOUTH TWICE A DAY IN THE MORNING AND IN THE EVENING [facility] FUROSEMIDE 20 mg tablet 4-30 00:00: 00 08-08 00:00 :00 No [id number] 20mg TAKE 1 TABLET BY MOUTH EVERY OTHER DAY [facility] METOCLOPRAM DANIEL HCL 10 mg tablet 4-05 00:00: 00 12-22 00:00 :00 No [id number] TAKE 1 TABLET BY MOUTH THREE TIMES A DAY [facility] ALCOHOL PADS PadM 2-13 00:00: 00 10-09 00:00 :00 No Use alcohol pad to clean area of skin before testing UP TO SIX TIMES DAILY AND USE TWICE DAILY before insulin injection (total 8 TIMES A DAY) [facility] COMFORT EZ PEN NEEDLES 31 gauge x 1/4" Ndle 2-12 00:00: 00 10-02 00:00 :00 No Use with insulin pen to inject insulin subcutaneo usly TWICE DAILY [facility] ALBUTEROL 90 mcg/actuati on inhaler 06-03 00:00: 00 11-01 00:00 :00 No INHALE 1 TO 2 PUFFS EVERY 4 TO 6 HOURS NEEDED [facility] FUROSEMIDE 20 mg tablet 05-27 00:00: 08-22 00:00 :00 No [id number] 20mg TAKE 1 TABLET BY MOUTH EVERY OTHER DAY [facility] methIMAzole 5 mg tablet 05-04 00:00: 00 05-02 00:00 :00 No [id number] 5mg Take 1 tablet by mouth in the morning. [facility] zolpidem 10 mg tablet 05-04 00:00: 00 10-31 00:00 :00 No [id number] 10mg Take 1 tablet by mouth at bedtime as needed for Insomnia. [facility] QUETIAPINE 300 mg tablet 2022-04 00:00: 00 Yes [id number] TAKE 1 TABLET BY MOUTH TWICE A DAY [facility] DICYCLOMINE 20 mg tablet 2022-04 00:00: 00 09-22 00:00 :00 No [id number] 20mg TAKE 1 TABLET BY MOUTH IN THE MORNING AND IN THE EVENING [facility] ALCOHOL PADS PadM 2022-04 00:00: 00 06-07 00:00 :00 No Use alcohol pad to clean area of skin before testing UP TO SIX TIMES DAILY AND USE TWICE DAILY before insulin injection (total 8 TIMES A DAY) [facility] COMFORT EZ PEN NEEDLES 31 gauge x 1/4" Ndle 2022-04 00:00: 00 06-06 00:00 :00 No Use with insulin pen to inject insulin subcutaneo usly TWICE DAILY [facility] METOCLOPRAM DANIEL HCL 10 mg tablet 2022-04 00:00: 00 07-28 00:00 :00 No [id number] TAKE 1 TABLET BY MOUTH THREE TIMES A DAY [facility] FAMOTIDINE 40 mg tablet 2022-04 0-17 00:00: 00 08-22 00:00 :00 No [id number] 40mg TAKE 1 TABLET BY MOUTH IN THE MORNING AND IN THE EVENING [facility] FUROSEMIDE 20 mg tablet 2022-04 0- 00:00: 00 05-27 00:00 :00 No [id number] 20mg TAKE 1 TABLET BY MOUTH EVERY OTHER DAY [facility] atorvastati n 10 mg tablet 01-13 00:00: 00 04-30 00:00 :00 No [id number] Take 1 tablet by mouth everyday at bedtime. Must be seen on 02/21/23 for additional refills [facility] METHIMAZOLE 5 mg tablet 01-13 00:00: 00 05-04 00:00 :00 No [id number] TAKE 1 TABLET BY MOUTH EVERY DAY [facility] FAMOTIDINE 40 mg tablet 12-30 00:00: 00 02-08 00:00 :00 No [id number] 40mg TAKE 1 TABLET BY MOUTH IN THE MORNING AND IN THE EVENING [facility] flash glucose scanning reader (FREESTYLE DOM 2 READER) [facility] 11-19 00:00: 00 10-02 00:00 :00 No 1{each} 1 Each CONTINUOUS . Use as directed for DX E10.65 [facility] flash glucose sensor (FREESTYLE DOM 2 SENSOR) Kit 11-19 00:00: 00 10-02 00:00 :00 No Use as directed for DX E10.65 [facility] Blood-Gluco se Meter,Keshawn hurst (DEXCOM G6 SUPERINTENDENT PIER) [facility] 11-18 00:00: 00 10-02 00:00 :00 No Use as directed to check blood sugars dx E10.65 [facility] Blood-Gluco se Sensor (DEXCOM G6 SENSOR) Barb 11-18 00:00: 00 10-02 00:00 :00 No Use as directed to check blood sugars for dx E10.65 [facility] Blood-Gluco se Transmitter (DEXCOM G6 TRANSMITTER ) Barb 11-18 00:00: 00 10-02 00:00 :00 No Use as directed to check blood sugars for dx E10.65 [facility] methIMAzole 5 mg tablet 10-14 00:00: 00 01-13 00:00 :00 No [id number] TAKE 1 TABLET BY MOUTH EVERY DAY [facility] METOCLOPRAM DANIEL HCL 10 mg tablet 10-13 00:00: 00 02-22 00:00 :00 No [id number] TAKE 1 TABLET BY MOUTH THREE TIMES A DAY [facility] atorvastati n 10 mg tablet 10-01 00:00: 00 01-13 00:00 :00 No [id number] TAKE 1 TABLET BY MOUTH EVERYDAY AT BEDTIME [facility] FUROSEMIDE 20 mg tablet 09-23 00:00: 00 01-24 00:00 :00 No [id number] 20mg TAKE 1 TABLET BY MOUTH EVERY OTHER DAY [facility] famotidine 40 mg tablet 14 00:00: 00 12-30 00:00 :00 No [id number] 40mg TAKE 1 TABLET BY MOUTH IN THE MORNING AND 1 TABLET IN THE EVENING. [facility] Blood-Gluco se Sensor (DEXCOM G6 SENSOR) Barb 09-03 00:00: 00 11-18 00:00 :00 No Use as directed to check blood sugars for dx E10.65 [facility] gabapentin 300 mg capsule 09-01 00:00: 00 Yes [id number] 300mg Take 1 capsule by mouth in the morning and 1 capsule in the evening. [facility] zolpidem 10 mg tablet 09-01 00:00: 00 05-04 00:00 :00 No [id number] 10mg Take 1 tablet by mouth at bedtime as needed for Insomnia. [facility] dicyclomine 20 mg tablet 09-01 00:00: 00 03-26 00:34 :21 No [id number] 20mg Take 1 tablet by mouth in the morning and 1 tablet in the evening. [facility] LISINOPRIL 5 mg tablet 08-29 00:00: 00 08-28 00:00 :00 No [id number] TAKE 1 TABLET BY MOUTH EVERY DAY [facility] Blood-Gluco se Meter,Keshawn nuous (DEXCOM G6 SUPERINTENDENT PIER) [facility] 08-23 00:00: 00 11-18 00:00 :00 No Use as directed to check blood sugars dx E10.65 [facility] Blood-Gluco se Transmitter (DEXCOM G6 TRANSMITTER ) Barb 08-23 00:00: 00 11-18 00:00 :00 No Use as directed to check blood sugars for dx E10.65 [facility] FUROSEMIDE 20 mg tablet 08-19 00:00: 00 09-23 00:00 :00 No [id number] 20mg TAKE 1 TABLET BY MOUTH EVERY OTHER DAY [facility] Blood-Gluco se Meter,Keshawn nuous (DEXCOM G6 SUPERINTENDENT PIER) [facility] 08-17 00:00: 00 08-23 00:00 :00 No Use as directed to check blood sugars dx E10.65 [facility] Blood-Gluco se Transmitter (DEXCOM G6 TRANSMITTER ) Barb 08-17 00:00: 00 08-23 00:00 :00 No Use as directed to check blood sugars for dx E10.65 [facility] Alcohol Swabs PadM 08-14 00:00: 00 03-07 00:00 :00 No Use alcohol pad to clean area of skin before testing UP TO SIX TIMES DAILY AND USE TWICE DAILY before insulin injection (total EIGHT TIMES A ONE TIME A DAY) [facility] LINZESS 290 mcg Cap 08-04 00:00: 00 10-02 00:00 :00 No [id number] TAKE 1 CAPSULE BY MOUTH ONCE DAILY 30 MINUTES BEFORE THE FIRST MEAL OF THE DAY [facility] Blood-Gluco se Sensor (DEXCOM G6 SENSOR) Barb 4-12 00:00: 00 09-03 00:00 :00 No Use as directed to check blood sugars for dx E10.65 [facility] Blood-Gluco se Meter,Keshawn hurst (DEXCOM G6 SUPERINTENDENT PIER) Misc -12 00:00: 00 08-17 00:00 :00 No Use as directed to check blood sugars dx E10.65 [facility] Blood-Gluco se Transmitter (DEXCOM G6 TRANSMITTER ) Barb -12 00:00: 00 08-17 00:00 :00 No Use as directed to check blood sugars for dx E10.65 [facility] zolpidem 10 mg tablet 4-11 00:00: 00 09-01 00:00 :00 No [id number] 10mg Take 1 tablet by mouth at bedtime as needed for Insomnia. [facility] FUROSEMIDE 20 mg tablet 4-03 00:00: 00 08-19 00:00 :00 No [id number] 20mg TAKE 1 TABLET BY MOUTH EVERY OTHER DAY [facility] FUROSEMIDE 20 mg tablet 3-06 00:00: 00 Yes [id number] 20mg TAKE 1 TABLET BY MOUTH EVERY OTHER DAY [facility] DICYCLOMINE 20 mg tablet 2-10 00:00: 00 09-01 00:00 :00 No [id number] 20mg TAKE 1 TABLET BY MOUTH IN THE MORNING AND 1 TABLET IN THE EVENING. [facility] FUROSEMIDE 20 mg tablet 0 2-10 00:00: 00 06-28 00:00 :00 No [id number] 20mg TAKE 1 TABLET BY MOUTH EVERY OTHER DAY [facility] Insulin Jackson, Disposable, (BD ULTRAFINE III MINI PEN) 31 gauge x 3/16" Ndle 1-23 00:00: 00 Yes [id number] 9101 USE TO INJECT INSULIN 5 TIMES DAILY. DX:E11.65 [facility] Insulin Jackson, Disposable, (BD ULTRAFINE III MINI PEN) 31 gauge x 3/16" Ndle 05-17 00:00: 00 10-02 00:00 :00 No [id number] 9101 USE TO INJECT INSULIN 5 TIMES DAILY. DX:E11.65 [facility] METOCLOPRAM DANIEL HCL 10 mg tablet 05-17 00:00: 00 10-13 00:00 :00 No TAKE 1 TABLET BY MOUTH THREE TIMES A DAY [facility] LISINOPRIL 10 mg tablet 05-11 00:00: 00 10-02 00:00 :00 No TAKE 1 TABLET BY MOUTH ONCE DAILY [facility] famotidine 40 mg tablet 2021-04 00:00: 00 09-05 00:00 :00 No [id number] 40mg Take 1 tablet by mouth in the morning and 1 tablet in the evening. [facility] ondansetron 4 mg tablet 2021-04 00:00: 00 Yes [id number] 4mg Take 1 tablet by mouth every 12 (twelve) hours. [facility] insulin lispro (HUMALOG KWIKPEN INSULIN) 100 unit/mL pen injector 2021-04 00:00: 00 Yes [id number] 9101 10U inject 10 Units under the skin in the morning and 10 Units at noon and 10 Units in the evening. inject before meals. [facility] Insulin NPH-Regular Human Rec (HUMULIN 70/30 U-100 KWIKPEN) 100 unit/mL (70-30) injection 2021-04 00:00: 00 10-02 00:00 :00 No [id number] 9101 INJECT 40 UNITS IN THE IN THE MORNING AND 40 UNITS IN IN THE EVENING [facility] insulin lispro (HUMALOG KWIKPEN INSULIN) 100 unit/mL pen injector 2021-04 00:00: 00 10-02 00:00 :00 No [id number] 9101 10U inject 10 Units under the skin in the morning and 10 Units at noon and 10 Units in the evening. inject before meals. [facility] atorvastati n 10 mg tablet 2021-04 00:00: 00 10-01 00:00 :00 No [id number] 10mg Take 1 tablet by mouth at bedtime. [facility] Insulin Jackson, Disposable, (BD ULTRAFINE III MINI PEN) 31 gauge x 3/16" Ndle 2021-04 00:00: 00 05-17 00:00 :00 No [id number] 9101 USE TO INJECT INSULIN 5 TIMES DAILY. DX:E11.65 [facility] FUROSEMIDE 20 mg tablet 2021-04- 00:00: 00 06-04 00:00 :00 No [id number] 20mg TAKE 1 TABLET BY MOUTH EVERY OTHER DAY [facility] TAKE 1 TABLET BY MOUTH TWICE A DAY 2021-04 00:00: 00 No QUETIAPINE 300 mg tablet 2021-04 0- 00:00: 00 03-26 00:34 :21 No [id number] TAKE 1 TABLET BY MOUTH TWICE A DAY [facility] TAKE 1 TABLET BY MOUTH EVERY DAY AT BEDTIME NEEDED FOR INSOMNIA 9-29 00:00: 00 No ALBUTEROL 90 mcg/actuati on inhaler - 00:00: 00 06-03 00:00 :00 No INHALE 1 TO 2 PUFFS BY MOUTH EVERY 4 TO 6 HOURS NEEDED [facility] gabapentin 300 mg capsule 9-20 00:00: 00 09-01 00:00 :00 No [id number] 300mg Take 1 capsule by mouth in the morning and 1 capsule in the evening. [facility] zolpidem 10 mg tablet -20 00:00: 00 08-03 00:00 :00 No [id number] 10mg Take 1 tablet by mouth at bedtime as needed for Insomnia. [facility] dicyclomine 20 mg tablet 9-20 00:00: 00 06-04 00:00 :00 No [id number] 20mg Take 1 tablet by mouth in the morning and 1 tablet in the evening. [facility] pantoprazol e 40 mg EC tablet 01-12 00:00: 00 03-11 00:00 :00 No [id number] 40mg Take 1 tablet by mouth in the morning. [facility] ATORVASTATI N 10 mg tablet 01-11 00:00: 00 02-26 00:00 :00 No [id number] TAKE 1 TABLET BY MOUTH EVERYDAY AT BEDTIME [facility] FUROSEMIDE 20 mg tablet 01-11 00:00: 00 02-03 00:00 :00 No [id number] 20mg TAKE 1 TABLET BY MOUTH EVERY OTHER DAY [facility] DEXLANSOPRA ZOLE 60 mg capsule 12-30 00:00: 00 01-12 00:00 :00 No [id number] TAKE 1 CAPSULE BY MOUTH EVERY DAY [facility] TAKE 1 TABLET BY MOUTH EVERY DAY AT BEDTIME NEEDED FOR INSOMNIA 12-17 00:00: 00 No 10 gabapentin 300 mg capsule 12-17 00:00: 00 01-12 00:00 :00 No 300mg Take 300 mg by mouth in the morning and 300 mg in the evening. [facility] FUROSEMIDE 20 mg tablet 12-14 00:00: 00 01-11 00:00 :00 No [id number] 20mg TAKE 1 TABLET BY MOUTH EVERY OTHER DAY [facility] TAKE 1 TABLET BY MOUTH TWICE A DAY 12-09 00:00: 00 No 250 &lt 0 8-10 00:00: 00 No 10 &lt 2-0 8-10 00:00: 00 No &lt 2-0 8-04 00:00: 00 No 60 TAKE 1 CAPSULE BY MOUTH TWICE A DAY 11-24 00:00: 00 No 300 Novolog Flexpen [...] 11-16 00:00: 00 08-29 22:39 :17 No [id number] TAKE 1 TABLET BY MOUTH EVERY DAY [facility] FUROSEMIDE 20 mg tablet 11-16 00:00: 00 12-14 00:00 :00 No [id number] 20mg TAKE 1 TABLET BY MOUTH EVERY OTHER DAY [facility] TAKE 1 TABLET BY MOUTH TWICE A DAY 11-03 00:00: 00 No 20 Dose Unknown 11-03 00:00: 00 No ZOLPIDEM 10 mg tablet 11-03 00:00: 00 01-12 00:00 :00 No [id number] TAKE 1 TABLET BY MOUTH EVERY DAY AT BEDTIME NEEDED FOR INSOMNIA [facility] metoclopram daniel 10 mg tablet 11-02 [...] 10-29 00:00: 00 01-25 00:00 :00 No [id number] TAKE 1 TABLET BY MOUTH TWICE A DAY [facility] Humulin 70/30 U-100 Insulin KwikPen 100 [...] DAY 10-27 00:00: 00 No 5 &lt 0 10-27 00:00: 00 No &lt 10-27 00:00: 00 No 10 TAKE 1 TABLET BY MOUTH TWICE A DAY 10-27 00:00: 00 No 20 ALBUTEROL 90 mcg/actuati on inhaler 10-27 00:00: 00 01-18 00:00 :00 No INHALE 1 TO 2 PUFFS BY MOUTH EVERY 4 TO 6 HOURS NEEDED [facility] linaCLOtide (LINZESS) 290 mcg Cap 10-19 00:00: 00 08-04 00:00 :00 No [id number] TAKE 1 CAPSULE BY MOUTH ONCE DAILY 30 MINUTES BEFORE THE FIRST MEAL OF THE DAY [facility] simethicone 125 mg chewable tablet 10-02 [...] 09-27 00:00: 00 02-26 00:00 :00 No [id number] 9101 INJECT 28 UNITS IN THE IN THE MORNING AND 25 UNITS IN IN THE EVENING [facility] LISINOPRIL 10 mg tablet 09-08 00:00: 00 05-11 00:00 :00 No TAKE 1 TABLET BY MOUTH ONCE DAILY [facility] Insulin Jackson, Disposable, (BD ULTRAFINE III MINI PEN) 31 gauge x 3/16" Ndle 09-08 00:00: 00 02-26 00:00 :00 No USE TO INJECT INSULIN 2 TIMES DAILY. DX:E11.65 [facility] Insulin Syringe-Nee dle U-100 1 mL 27 gauge x 5/8" Syrg 08-18 00:00: 00 Yes Use as directed to inject insulin 4 times daily for E10.65 [facility] Insulin Syringe-Nee dle U-100 1 mL 27 gauge x 5/8" Syrg 08-18 00:00: 00 10-02 00:00 :00 No Use as directed to inject insulin 4 times daily for E10.65 [facility] Blood-Gluco se Sensor (DEXCOM G6 SENSOR) Barb 07-29 00:00: 00 08-04 00:00 :00 No Use as directed to check blood sugars for dx E10.65 [facility] Blood-Gluco se Transmitter (DEXCOM G6 TRANSMITTER ) Barb 07-29 00:00: 00 08-04 00:00 :00 No Use as directed to check blood sugars for dx E10.65 [facility] Blood-Gluco se Meter,Keshawn natali (DEXCOM G6 SUPERINTENDENT PIER) [facility] [place] 07-29 00:00: 00 08-04 00:00 :00 No Use as directed to check blood sugars dx E10.65 [facility] flash glucose sensor (FREESTYLE DOM 2 SENSOR) Kit 07-27 00:00: 00 08-02 00:00 :00 No [id number] 9101 1{kit} 1 Kit every 14 (fourteen) days. E10.65 [facility] pregabalin 100 mg capsule 07-25 00:00: 00 01-12 00:00 :00 No [id number] 9101 100mg Take 1 capsule by mouth 2 (two) times daily. [facility] flash glucose scanning reader (FREESTYLE DOM 2 READER) [facility] [place] 07-13 00:00: 00 08-02 00:00 :00 No [id number] 9101 1{each} 1 Each daily. [facility] methIMAzole 5 mg tablet 2020-04 00:00: 00 10-14 00:00 :00 No [id number] 5mg Take 1 tablet by mouth daily. [facility] insulin NPH and regular human 70-30 (HUMULIN 70/30 U-100 INSULIN) 100 unit/mL (70-30) injection 2020-04 00:00: 00 02-26 00:00 :00 No [id number] 9101 25 units wtice daily before meals. Max daily dose of 70 units [facility] atorvastati n (LIPITOR) 10 mg tablet 2020-04 00:00: 00 01-11 00:00 :00 No [id number] 10mg Take 1 tablet by mouth at bedtime. [facility] silver sulfADIAZIN E (SILVADENE) 1 % cream 12-24 00:00: 00 Yes [id number] Apply to area(s) 2 (two) times daily. [facility] metoclopram daniel HCl 5 mg tablet 12-16 00:00: 00 08-02 00:00 :00 No [id number] 5mg Take 1 tablet by mouth before meals. [facility] dicyclomine 20 mg tablet 12-16 00:00: 00 01-12 00:00 :00 No [id number] 20mg Take 1 tablet by mouth 2 (two) times daily. [facility] Dexlansopra zole (DEXILANT) 60 mg capsule 12-16 00:00: 00 12-30 00:00 :00 No [id number] 60mg Take 1 capsule by mouth daily. [facility] naproxen sodium (ALEVE) 220 mg tablet 2019-04 14:52: 17 Yes 220mg Take 220 mg by mouth 2 (two) times daily with meals. [facility] medroxyPROG ESTERone (DEPO-PROVE RA) 150 mg/mL injection 10-01 11:49: 34 Yes 150mg 150 mg by Intramuscu lar route every 3 (three) months. [facility] Dexilant 60 mg capsule, delayed release [...] Filled Immunization Name Date Status Comments Source Zoster Vaccine Recombinant 2023-12-22 00:00:00 Completed Flu Injectable MDCK Pres-Free (FLUCELVAX) 2023-12-22 00:00:00 Completed Influenza Virus Vaccine Quad IM, Preserv and ABX Free 6 MO-64 YRS 2022-01-12 00:00:00 Completed [facility] Influenza Virus Vaccine Quad IM, Preserv and ABX Free 6 MO-64 YRS 2022-01-12 00:00:00 Completed [facility] Influenza Virus Vaccine Quad IM, Preserv and ABX Free 6 MO-64 YRS 2022-01-12 00:00:00 Completed [facility] Influenza Virus Vaccine Quad IM, Preserv and ABX Free 6 MO-64 YRS 2022-01-12 00:00:00 Completed [facility] Influenza Virus Vaccine Quad IM, Preserv and ABX Free 6 MO-64 YRS 2022-01-12 00:00:00 Completed [facility] Influenza Virus Vaccine Quad IM, Preserv and ABX Free 6 MO-64 YRS 2022-01-12 00:00:00 Completed [facility] Influenza Virus Vaccine Quad IM, Preserv and ABX Free 6 MO-64 YRS 2022-01-12 00:00:00 Completed [facility] Influenza Virus Vaccine Quad IM, Preserv and ABX Free 6 MO-64 YRS 2022-01-12 00:00:00 Completed [facility] Influenza Virus Vaccine Quad IM, Preserv and ABX Free 6 MO-64 YRS 2022-01-12 00:00:00 Completed [facility] Influenza Virus Vaccine Quad IM, Preserv and ABX Free 6 MO-64 YRS 2022-01-12 00:00:00 Completed [facility] Influenza Virus Vaccine Quad IM, Preserv and ABX Free 6 MO-64 YRS 2022-01-12 00:00:00 Completed [facility] Influenza Virus Vaccine Quad IM, Preserv and ABX Free 6 MO-64 YRS 2022-01-12 00:00:00 Completed [facility] Influenza Virus Vaccine Quad IM, Preserv and ABX Free 6 MO-64 YRS 2022-01-12 00:00:00 Completed [facility] Influenza Virus Vaccine Quad IM, Preserv and ABX Free 6 MO-64 YRS 2022-01-12 00:00:00 Completed [facility] Influenza Virus Vaccine Quad IM, Preserv and ABX Free 6 MO-64 YRS 2022-01-12 00:00:00 Completed [facility] Influenza Virus Vaccine Quad IM, Preserv and ABX Free 6 MO-64 YRS 2022-01-12 00:00:00 Completed [facility] Influenza Virus Vaccine Quad IM, Preserv and ABX Free 6 MO-64 YRS 2022-01-12 00:00:00 Completed [facility] Influenza Virus Vaccine Quad IM, Preserv and ABX Free 6 MO-64 YRS 2022-01-12 00:00:00 Completed [facility] Influenza Virus Vaccine Quad IM, Preserv and ABX Free 6 MO-64 YRS 2022-01-12 00:00:00 Completed [facility] Influenza Virus Vaccine Quad IM, Preserv and ABX Free 6 MO-64 YRS 2022-01-12 00:00:00 Completed [facility] Influenza Virus Vaccine Quad IM, Preserv and ABX Free 6 MO-64 YRS 2022-01-12 00:00:00 Completed [facility] Influenza Virus Vaccine Quad IM, Preserv and ABX Free 6 MO-64 YRS 2022-01-12 00:00:00 Completed [facility] Influenza Virus Vaccine Quad IM, Preserv and ABX Free 6 MO-64 YRS 2022-01-12 00:00:00 Completed [facility] Influenza Virus Vaccine Quad IM, Preserv and ABX Free 6 MO-64 YRS 2022-01-12 00:00:00 Completed [facility] Influenza Virus Vaccine Quad IM, Preserv and ABX Free 6 MO-64 YRS 2022-01-12 00:00:00 Completed [facility] Influenza Virus Vaccine Quad IM, Preserv and ABX Free 6 MO-64 YRS 2022-01-12 00:00:00 Completed [facility] Influenza Virus Vaccine Quad IM, Preserv and ABX Free 6 MO-64 YRS 2022-01-12 00:00:00 Completed [facility] Influenza Virus Vaccine Quad IM, Preserv and ABX Free 6 MO-64 YRS 2022-01-12 00:00:00 Completed [facility] Influenza Virus Vaccine Quad IM, Preserv and ABX Free 6 MO-64 YRS 2022-01-12 00:00:00 Completed [facility] Influenza Virus Vaccine Quad IM, Preserv and ABX Free 6 MO-64 YRS 2022-01-12 00:00:00 Completed [facility] Influenza Virus Vaccine Quad IM, Preserv and ABX Free 6 MO-64 YRS 2022-01-12 00:00:00 Completed [facility] Influenza Virus Vaccine Quad IM, Preserv and ABX Free 6 MO-64 YRS 2022-01-12 00:00:00 Completed [facility] Influenza Virus Vaccine Quad IM, Preserv and ABX Free 6 MO-64 YRS 2022-01-12 00:00:00 Completed [facility] Influenza Virus Vaccine Quad IM, Preserv and ABX Free 6 MO-64 YRS 2022-01-12 00:00:00 Completed [facility] Influenza Virus Vaccine Quad IM, Preserv and ABX Free 6 MO-64 YRS 2022-01-12 00:00:00 Completed [facility] Influenza Virus Vaccine Quad IM, Preserv and ABX Free 6 MO-64 YRS 2022-01-12 00:00:00 Completed [facility] Influenza Virus Vaccine Quad IM, Preserv and ABX Free 6 MO-64 YRS 2022-01-12 00:00:00 Completed [facility] Influenza Virus Vaccine Quad IM, Preserv and ABX Free 6 MO-64 YRS 2022-01-12 00:00:00 Completed [facility] Influenza Virus Vaccine Quad IM, Preserv and ABX Free 6 MO-64 YRS 2022-01-12 00:00:00 Completed [facility] Influenza Virus Vaccine Quad IM, Preserv and ABX Free 6 MO-64 YRS 2022-01-12 00:00:00 Completed [facility] Influenza Virus Vaccine Quad IM, Preserv and ABX Free 6 MO-64 YRS 2022-01-12 00:00:00 Completed [facility] Influenza Virus Vaccine Quad IM, Preserv and ABX Free 6 MO-64 YRS 2022-01-12 00:00:00 Completed [facility] Influenza Virus Vaccine Quad IM, Preserv and ABX Free 6 MO-64 YRS 2022-01-12 00:00:00 Completed [facility] Influenza Virus Vaccine Quad IM, Preserv and ABX Free 6 MO-64 YRS 2022-01-12 00:00:00 Completed [facility] Influenza Virus Vaccine Quad IM, Preserv and ABX Free 6 MO-64 YRS 2022-01-12 00:00:00 Completed [facility] Influenza Virus Vaccine Quad IM, Preserv and ABX Free 6 MO-64 YRS 2022-01-12 00:00:00 Completed [facility] Influenza Virus Vaccine Quad IM, Preserv and ABX Free 6 MO-64 YRS 2022-01-12 00:00:00 Completed [facility] Influenza Virus Vaccine Quad IM, Preserv and ABX Free 6 MO-64 YRS 2022-01-12 00:00:00 Completed [facility] Influenza Virus Vaccine Quad IM, Preserv and ABX Free 6 MO-64 YRS 2022-01-12 00:00:00 Completed [facility] Influenza Virus Vaccine Quad IM, Preserv and ABX Free 6 MO-64 YRS 2022-01-12 00:00:00 Completed [facility] Influenza Virus Vaccine Quad IM, Preserv and ABX Free 6 MO-64 YRS 2022-01-12 00:00:00 Completed [facility] Influenza Virus Vaccine Quad IM, Preserv and ABX Free 6 MO-64 YRS 2022-01-12 00:00:00 Completed [facility] Influenza Virus Vaccine Quad IM, Preserv and ABX Free 6 MO-64 YRS 2022-01-12 00:00:00 Completed [facility] Influenza Virus Vaccine Quad IM, Preserv and ABX Free 6 MO-64 YRS 2022-01-12 00:00:00 Completed [facility] Influenza Virus Vaccine Quad IM, Preserv and ABX Free 6 MO-64 YRS 2022-01-12 00:00:00 Completed [facility] Influenza Virus Vaccine Quad IM, Preserv and ABX Free 6 MO-64 YRS 2022-01-12 00:00:00 Completed [facility] Influenza Virus Vaccine Quad IM, Preserv and ABX Free 6 MO-64 YRS 2022-01-12 00:00:00 Completed [facility] Influenza Virus Vaccine Quad IM, Preserv and ABX Free 6 MO-64 YRS 2022-01-12 00:00:00 Completed [facility] Influenza Virus Vaccine Quad IM, Preserv and ABX Free 6 MO-64 YRS 2022-01-12 00:00:00 Completed [facility] Influenza Virus Vaccine Quad IM, Preserv and ABX Free 6 MO-64 YRS 2022-01-12 00:00:00 Completed [facility] Influenza Virus Vaccine Quad IM, Preserv and ABX Free 6 MO-64 YRS 2022-01-12 00:00:00 Completed [facility] Influenza Virus Vaccine Quad IM, Preserv and ABX Free 6 MO-64 YRS 2022-01-12 00:00:00 Completed [facility] Influenza Virus Vaccine Quad IM, Preserv and ABX Free 6 MO-64 YRS 2022-01-12 00:00:00 Completed [facility] Influenza Virus Vaccine Quad IM, Preserv and ABX Free 6 MO-64 YRS 2022-01-12 00:00:00 Completed [facility] Influenza Virus Vaccine Quad IM, Preserv and ABX Free 6 MO-64 YRS 2022-01-12 00:00:00 Completed [facility] Influenza Virus Vaccine Quad IM, Preserv and ABX Free 6 MO-64 YRS 2022-01-12 00:00:00 Completed [facility] Influenza Virus Vaccine Quad IM, Preserv and ABX Free 6 MO-64 YRS 2022-01-12 00:00:00 Completed [facility] Influenza Virus Vaccine Quad IM, Preserv and ABX Free 6 MO-64 YRS 2022-01-12 00:00:00 Completed [facility] Influenza Virus Vaccine Quad IM, Preserv and ABX Free 6 MO-64 YRS 2022-01-12 00:00:00 Completed [facility] Influenza Virus Vaccine Quad IM, Preserv and ABX Free 6 MO-64 YRS (FLUCELVAX) 2022-01-12 00:00:00 Completed [facility] Influenza Virus Vaccine Quad IM, Preserv and ABX Free 6 MO-64 YRS (FLUCELVAX) 2022-01-12 00:00:00 Completed [facility] Influenza Virus Vaccine Quad IM, Preserv and ABX Free 6 MO-64 YRS (FLUCELVAX) 2022-01-12 00:00:00 Completed [facility] Influenza Virus Vaccine Quad IM, Preserv and ABX Free 6 MO-64 YRS (FLUCELVAX) 2022-01-12 00:00:00 Completed [facility] Influenza Virus Vaccine Quad IM, Preserv and ABX Free 6 MO-64 YRS (FLUCELVAX) 2022-01-12 00:00:00 Completed [facility] SARS-COV-2 COVID-19 VACCINE - (MODERNA) 2021-03-23 00:00:00 Completed [facility] SARS-COV-2 COVID-19 VACCINE - (MODERNA) 2021-03-23 00:00:00 Completed Moderna COVID-19 Vaccine 2021-03-23 00:00:00 Completed SARS-COV-2 COVID-19 PFIZER VACCINE 2020-08-23 00:00:00 Completed [facility] SARS-COV-2 COVID-19 PFIZER VACCINE 2020-08-23 00:00:00 Completed [facility] SARS-COV-2 COVID-19 PFIZER VACCINE 2020-08-23 00:00:00 Completed [facility] SARS-COV-2 COVID-19 PFIZER VACCINE 2020-08-23 00:00:00 Completed [facility] SARS-COV-2 COVID-19 PFIZER VACCINE 2020-08-23 00:00:00 Completed [facility] SARS-COV-2 COVID-19 PFIZER VACCINE 2020-08-23 00:00:00 Completed [facility] SARS-COV-2 COVID-19 PFIZER VACCINE 2020-08-23 00:00:00 Completed [facility] SARS-COV-2 COVID-19 PFIZER VACCINE 2020-08-23 00:00:00 Completed [facility] SARS-COV-2 COVID-19 PFIZER VACCINE 2020-08-23 00:00:00 Completed [facility] SARS-COV-2 COVID-19 PFIZER VACCINE 2020-08-23 00:00:00 Completed [facility] SARS-COV-2 COVID-19 PFIZER VACCINE 2020-08-23 00:00:00 Completed [facility] SARS-COV-2 COVID-19 PFIZER VACCINE 2020-08-23 00:00:00 Completed [facility] SARS-COV-2 COVID-19 PFIZER VACCINE 2020-08-23 00:00:00 Completed [facility] SARS-COV-2 COVID-19 PFIZER VACCINE 2020-08-23 00:00:00 Completed [facility] SARS-COV-2 COVID-19 PFIZER VACCINE 2020-08-23 00:00:00 Completed [facility] SARS-COV-2 COVID-19 PFIZER VACCINE 2020-08-23 00:00:00 Completed [facility] SARS-COV-2 COVID-19 PFIZER VACCINE 2020-08-23 00:00:00 Completed [facility] SARS-COV-2 COVID-19 PFIZER VACCINE 2020-08-23 00:00:00 Completed [facility] SARS-COV-2 COVID-19 PFIZER VACCINE 2020-08-23 00:00:00 Completed [facility] SARS-COV-2 COVID-19 PFIZER VACCINE 2020-08-23 00:00:00 Completed [facility] SARS-COV-2 COVID-19 PFIZER VACCINE 2020-08-23 00:00:00 Completed [facility] SARS-COV-2 COVID-19 PFIZER VACCINE 2020-08-23 00:00:00 Completed [facility] SARS-COV-2 COVID-19 PFIZER VACCINE 2020-08-23 00:00:00 Completed [facility] SARS-COV-2 COVID-19 PFIZER VACCINE 2020-08-23 00:00:00 Completed [facility] SARS-COV-2 COVID-19 PFIZER VACCINE 2020-08-23 00:00:00 Completed [facility] SARS-COV-2 COVID-19 PFIZER VACCINE 2020-08-23 00:00:00 Completed [facility] SARS-COV-2 COVID-19 PFIZER VACCINE 2020-08-23 00:00:00 Completed [facility] SARS-COV-2 COVID-19 PFIZER VACCINE 2020-08-23 00:00:00 Completed [facility] SARS-COV-2 COVID-19 PFIZER VACCINE 2020-08-23 00:00:00 Completed [facility] SARS-COV-2 COVID-19 PFIZER VACCINE 2020-08-23 00:00:00 Completed [facility] SARS-COV-2 COVID-19 PFIZER VACCINE 2020-08-23 00:00:00 Completed [facility] SARS-COV-2 COVID-19 PFIZER VACCINE 2020-08-23 00:00:00 Completed [facility] SARS-COV-2 COVID-19 PFIZER VACCINE 2020-08-23 00:00:00 Completed [facility] SARS-COV-2 COVID-19 PFIZER VACCINE 2020-08-23 00:00:00 Completed [facility] SARS-COV-2 COVID-19 PFIZER VACCINE 2020-08-23 00:00:00 Completed [facility] SARS-COV-2 COVID-19 PFIZER VACCINE 2020-08-23 00:00:00 Completed [facility] SARS-COV-2 COVID-19 PFIZER VACCINE 2020-08-23 00:00:00 Completed [facility] SARS-COV-2 COVID-19 PFIZER VACCINE 2020-08-23 00:00:00 Completed [facility] SARS-COV-2 COVID-19 PFIZER VACCINE 2020-08-23 00:00:00 Completed [facility] SARS-COV-2 COVID-19 PFIZER VACCINE 2020-08-23 00:00:00 Completed [facility] SARS-COV-2 COVID-19 PFIZER VACCINE 2020-08-23 00:00:00 Completed [facility] SARS-COV-2 COVID-19 PFIZER VACCINE 2020-08-23 00:00:00 Completed [facility] SARS-COV-2 COVID-19 PFIZER VACCINE 2020-08-23 00:00:00 Completed [facility] SARS-COV-2 COVID-19 PFIZER VACCINE 2020-08-23 00:00:00 Completed [facility] SARS-COV-2 COVID-19 PFIZER VACCINE 2020-08-23 00:00:00 Completed [facility] [facility]-19 PFIZER VACCINE 2020-08-23 00:00:00 Completed [facility] SARS-COV-2 COVID-19 PFIZER VACCINE 2020-08-23 00:00:00 Completed [facility] SARS-COV-2 COVID-19 PFIZER VACCINE 2020-08-23 00:00:00 Completed [facility] SARS-COV-2 COVID-19 PFIZER VACCINE 2020-08-23 00:00:00 Completed [facility] SARS-COV-2 COVID-19 PFIZER VACCINE 2020-08-23 00:00:00 Completed [facility] SARS-COV-2 COVID-19 PFIZER VACCINE 2020-08-23 00:00:00 Completed [facility] SARS-COV-2 COVID-19 PFIZER VACCINE 2020-08-23 00:00:00 Completed [facility] SARS-COV-2 COVID-19 PFIZER VACCINE 2020-08-23 00:00:00 Completed [facility] SARS-COV-2 COVID-19 PFIZER VACCINE 2020-08-23 00:00:00 Completed [facility] SARS-COV-2 COVID-19 PFIZER VACCINE 2020-08-23 00:00:00 Completed [facility] SARS-COV-2 COVID-19 PFIZER VACCINE 2020-08-23 00:00:00 Completed [facility] SARS-COV-2 COVID-19 PFIZER VACCINE 2020-08-23 00:00:00 Completed [facility] SARS-COV-2 COVID-19 PFIZER VACCINE 2020-08-23 00:00:00 Completed [facility] SARS-COV-2 COVID-19 PFIZER VACCINE 2020-08-23 00:00:00 Completed [facility] SARS-COV-2 COVID-19 PFIZER VACCINE 2020-08-23 00:00:00 Completed [facility] SARS-COV-2 COVID-19 PFIZER VACCINE 2020-08-23 00:00:00 Completed [facility] SARS-COV-2 COVID-19 PFIZER VACCINE 2020-08-23 00:00:00 Completed [facility] SARS-COV-2 COVID-19 PFIZER VACCINE 2020-08-23 00:00:00 Completed [facility] SARS-COV-2 COVID-19 PFIZER VACCINE 2020-08-23 00:00:00 Completed [facility] SARS-COV-2 COVID-19 PFIZER VACCINE 2020-08-23 00:00:00 Completed [facility] SARS-COV-2 COVID-19 PFIZER VACCINE 2020-08-23 00:00:00 Completed [facility] SARS-COV-2 COVID-19 PFIZER VACCINE 2020-08-23 00:00:00 Completed [facility] SARS-COV-2 COVID-19 PFIZER VACCINE 2020-08-23 00:00:00 Completed [facility] SARS-COV-2 COVID-19 PFIZER VACCINE 2020-08-23 00:00:00 Completed [facility] SARS-COV-2 COVID-19 PFIZER VACCINE 2020-08-23 00:00:00 Completed [facility] SARS-COV-2 COVID-19 PFIZER VACCINE 2020-08-23 00:00:00 Completed [facility] SARS-COV-2 COVID-19 PFIZER VACCINE 2020-08-23 00:00:00 Completed [facility] SARS-COV-2 COVID-19 PFIZER VACCINE 2020-08-23 00:00:00 Completed [facility] SARS-COV-2 COVID-19 PFIZER VACCINE 2020-08-23 00:00:00 Completed [facility] SARS-COV-2 COVID-19 PFIZER VACCINE 2020-08-23 00:00:00 Completed [facility] SARS-COV-2 COVID-19 PFIZER VACCINE 2020-08-23 00:00:00 Completed [facility] SARS-COV-2 COVID-19 PFIZER VACCINE 2020-08-23 00:00:00 Completed [facility] SARS-COV-2 COVID-19 PFIZER VACCINE 2020-08-23 00:00:00 Completed [facility] SARS-COV-2 COVID-19 PFIZER VACCINE 2020-08-23 00:00:00 Completed [facility] SARS-COV-2 COVID-19 PFIZER VACCINE 2020-08-23 00:00:00 Completed [facility] SARS-COV-2 COVID-19 PFIZER VACCINE 2020-08-23 00:00:00 Completed [facility] SARS-COV-2 COVID-19 PFIZER VACCINE 2020-08-23 00:00:00 Completed [facility] SARS-COV-2 COVID-19 PFIZER VACCINE 2020-08-23 00:00:00 Completed [facility] SARS-COV-2 COVID-19 PFIZER VACCINE 2020-08-23 00:00:00 Completed [facility] SARS-COV-2 COVID-19 PFIZER VACCINE 2020-07-20 00:00:00 Completed [facility] SARS-COV-2 COVID-19 PFIZER VACCINE 2020-07-20 00:00:00 Completed [facility] SARS-COV-2 COVID-19 PFIZER VACCINE 2020-07-20 00:00:00 Completed [facility] SARS-COV-2 COVID-19 PFIZER VACCINE 2020-07-20 00:00:00 Completed [facility] SARS-COV-2 COVID-19 PFIZER VACCINE 2020-07-20 00:00:00 Completed [facility] SARS-COV-2 COVID-19 PFIZER VACCINE 2020-07-20 00:00:00 Completed [facility] SARS-COV-2 COVID-19 PFIZER VACCINE 2020-07-20 00:00:00 Completed [facility] SARS-COV-2 COVID-19 PFIZER VACCINE 2020-07-20 00:00:00 Completed [facility] SARS-COV-2 COVID-19 PFIZER VACCINE 2020-07-20 00:00:00 Completed [facility] SARS-COV-2 COVID-19 PFIZER VACCINE 2020-07-20 00:00:00 Completed [facility] SARS-COV-2 COVID-19 PFIZER VACCINE 2020-07-20 00:00:00 Completed [facility] SARS-COV-2 COVID-19 PFIZER VACCINE 2020-07-20 00:00:00 Completed [facility] SARS-COV-2 COVID-19 PFIZER VACCINE 2020-07-20 00:00:00 Completed [facility] SARS-COV-2 COVID-19 PFIZER VACCINE 2020-07-20 00:00:00 Completed [facility] SARS-COV-2 COVID-19 PFIZER VACCINE 2020-07-20 00:00:00 Completed [facility] SARS-COV-2 COVID-19 PFIZER VACCINE 2020-07-20 00:00:00 Completed [facility] SARS-COV-2 COVID-19 PFIZER VACCINE 2020-07-20 00:00:00 Completed [facility] SARS-COV-2 COVID-19 PFIZER VACCINE 2020-07-20 00:00:00 Completed [facility] SARS-COV-2 COVID-19 PFIZER VACCINE 2020-07-20 00:00:00 Completed [facility] SARS-COV-2 COVID-19 PFIZER VACCINE 2020-07-20 00:00:00 Completed [facility] SARS-COV-2 COVID-19 PFIZER VACCINE 2020-07-20 00:00:00 Completed [facility] SARS-COV-2 COVID-19 PFIZER VACCINE 2020-07-20 00:00:00 Completed [facility] SARS-COV-2 COVID-19 PFIZER VACCINE 2020-07-20 00:00:00 Completed [facility] SARS-COV-2 COVID-19 PFIZER VACCINE 2020-07-20 00:00:00 Completed [facility] SARS-COV-2 COVID-19 PFIZER VACCINE 2020-07-20 00:00:00 Completed [facility] SARS-COV-2 COVID-19 PFIZER VACCINE 2020-07-20 00:00:00 Completed [facility] SARS-COV-2 COVID-19 PFIZER VACCINE 2020-07-20 00:00:00 Completed [facility] SARS-COV-2 COVID-19 PFIZER VACCINE 2020-07-20 00:00:00 Completed [facility] SARS-COV-2 COVID-19 PFIZER VACCINE 2020-07-20 00:00:00 Completed [facility] SARS-COV-2 COVID-19 PFIZER VACCINE 2020-07-20 00:00:00 Completed [facility] SARS-COV-2 COVID-19 PFIZER VACCINE 2020-07-20 00:00:00 Completed [facility] SARS-COV-2 COVID-19 PFIZER VACCINE 2020-07-20 00:00:00 Completed [facility] SARS-COV-2 COVID-19 PFIZER VACCINE 2020-07-20 00:00:00 Completed [facility] SARS-COV-2 COVID-19 PFIZER VACCINE 2020-07-20 00:00:00 Completed [facility] SARS-COV-2 COVID-19 PFIZER VACCINE 2020-07-20 00:00:00 Completed [facility] SARS-COV-2 COVID-19 PFIZER VACCINE 2020-07-20 00:00:00 Completed [facility] SARS-COV-2 COVID-19 PFIZER VACCINE 2020-07-20 00:00:00 Completed [facility] SARS-COV-2 COVID-19 PFIZER VACCINE 2020-07-20 00:00:00 Completed [facility] SARS-COV-2 COVID-19 PFIZER VACCINE 2020-07-20 00:00:00 Completed [facility] SARS-COV-2 COVID-19 PFIZER VACCINE 2020-07-20 00:00:00 Completed [facility] SARS-COV-2 COVID-19 PFIZER VACCINE 2020-07-20 00:00:00 Completed [facility] SARS-COV-2 COVID-19 PFIZER VACCINE 2020-07-20 00:00:00 Completed [facility] SARS-COV-2 COVID-19 PFIZER VACCINE 2020-07-20 00:00:00 Completed [facility] SARS-COV-2 COVID-19 PFIZER VACCINE 2020-07-20 00:00:00 Completed [facility] SARS-COV-2 COVID-19 PFIZER VACCINE 2020-07-20 00:00:00 Completed [facility] SARS-COV-2 COVID-19 PFIZER VACCINE 2020-07-20 00:00:00 Completed [facility] SARS-COV-2 COVID-19 PFIZER VACCINE 2020-07-20 00:00:00 Completed [facility] SARS-COV-2 COVID-19 PFIZER VACCINE 2020-07-20 00:00:00 Completed [facility] SARS-COV-2 COVID-19 PFIZER VACCINE 2020-07-20 00:00:00 Completed [facility] SARS-COV-2 COVID-19 PFIZER VACCINE 2020-07-20 00:00:00 Completed [facility] SARS-COV-2 COVID-19 PFIZER VACCINE 2020-07-20 00:00:00 Completed [facility] SARS-COV-2 COVID-19 PFIZER VACCINE 2020-07-20 00:00:00 Completed [facility] SARS-COV-2 COVID-19 PFIZER VACCINE 2020-07-20 00:00:00 Completed [facility] SARS-COV-2 COVID-19 PFIZER VACCINE 2020-07-20 00:00:00 Completed [facility] SARS-COV-2 COVID-19 PFIZER VACCINE 2020-07-20 00:00:00 Completed [facility] SARS-COV-2 COVID-19 PFIZER VACCINE 2020-07-20 00:00:00 Completed [facility] SARS-COV-2 COVID-19 PFIZER VACCINE 2020-07-20 00:00:00 Completed [facility] SARS-COV-2 COVID-19 PFIZER VACCINE 2020-07-20 00:00:00 Completed [facility] SARS-COV-2 COVID-19 PFIZER VACCINE 2020-07-20 00:00:00 Completed [facility] SARS-COV-2 COVID-19 PFIZER VACCINE 2020-07-20 00:00:00 Completed [facility] SARS-COV-2 COVID-19 PFIZER VACCINE 2020-07-20 00:00:00 Completed [facility] SARS-COV-2 COVID-19 PFIZER VACCINE 2020-07-20 00:00:00 Completed [facility] SARS-COV-2 COVID-19 PFIZER VACCINE 2020-07-20 00:00:00 Completed [facility] SARS-COV-2 COVID-19 PFIZER VACCINE 2020-07-20 00:00:00 Completed [facility] SARS-COV-2 COVID-19 PFIZER VACCINE 2020-07-20 00:00:00 Completed [facility] SARS-COV-2 COVID-19 PFIZER VACCINE 2020-07-20 00:00:00 Completed [facility] SARS-COV-2 COVID-19 PFIZER VACCINE 2020-07-20 00:00:00 Completed [facility] SARS-COV-2 COVID-19 PFIZER VACCINE 2020-07-20 00:00:00 Completed [facility] SARS-COV-2 COVID-19 PFIZER VACCINE 2020-07-20 00:00:00 Completed [facility] SARS-COV-2 COVID-19 PFIZER VACCINE 2020-07-20 00:00:00 Completed [facility] SARS-COV-2 COVID-19 PFIZER VACCINE 2020-07-20 00:00:00 Completed [facility] SARS-COV-2 COVID-19 PFIZER VACCINE 2020-07-20 00:00:00 Completed [facility] SARS-COV-2 COVID-19 PFIZER VACCINE 2020-07-20 00:00:00 Completed [facility] SARS-COV-2 COVID-19 PFIZER VACCINE 2020-07-20 00:00:00 Completed [facility] SARS-COV-2 COVID-19 PFIZER VACCINE 2020-07-20 00:00:00 Completed [facility] SARS-COV-2 COVID-19 PFIZER VACCINE 2020-07-20 00:00:00 Completed [facility] SARS-COV-2 COVID-19 PFIZER VACCINE 2020-07-20 00:00:00 Completed [facility] SARS-COV-2 COVID-19 PFIZER VACCINE 2020-07-20 00:00:00 Completed [facility] SARS-COV-2 COVID-19 PFIZER VACCINE 2020-07-20 00:00:00 Completed [facility] SARS-COV-2 COVID-19 PFIZER VACCINE 2020-07-20 00:00:00 Completed [facility] SARS-COV-2 COVID-19 PFIZER VACCINE 2020-07-20 00:00:00 Completed [facility] SARS-COV-2 COVID-19 PFIZER VACCINE 2020-07-20 00:00:00 Completed [facility] SARS-COV-2 COVID-19 PFIZER VACCINE 2020-07-20 00:00:00 Completed [facility] SARS-COV-2 COVID-19 PFIZER VACCINE 2020-07-20 00:00:00 Completed [facility] TDAP 2019-12-11 00:00:00 Completed [facility] TDAP 2019-12-11 00:00:00 Completed [facility] TDAP 2019-12-11 00:00:00 Completed [facility] TDAP 2019-12-11 00:00:00 Completed [facility] TDAP 2019-12-11 00:00:00 Completed [facility] TDAP 2019-12-11 00:00:00 Completed [facility] TDAP 2019-12-11 00:00:00 Completed [facility] TDAP 2019-12-11 00:00:00 Completed [facility] TDAP 2019-12-11 00:00:00 Completed [facility] TDAP 2019-12-11 00:00:00 Completed [facility] TDAP 2019-12-11 00:00:00 Completed [facility] TDAP 2019-12-11 00:00:00 Completed [facility] TDAP 2019-12-11 00:00:00 Completed [facility] TDAP 2019-12-11 00:00:00 Completed [facility] TDAP 2019-12-11 00:00:00 Completed [facility] TDAP 2019-12-11 00:00:00 Completed [facility] TDAP 2019-12-11 00:00:00 Completed [facility] TDAP 2019-12-11 00:00:00 Completed [facility] TDAP 2019-12-11 00:00:00 Completed [facility] TDAP 2019-12-11 00:00:00 Completed [facility] TDAP 2019-12-11 00:00:00 Completed [facility] TDAP 2019-12-11 00:00:00 Completed [facility] TDAP 2019-12-11 00:00:00 Completed [facility] TDAP 2019-12-11 00:00:00 Completed [facility] TDAP 2019-12-11 00:00:00 Completed [facility] TDAP 2019-12-11 00:00:00 Completed [facility] TDAP 2019-12-11 00:00:00 Completed [facility] TDAP 2019-12-11 00:00:00 Completed [facility] TDAP 2019-12-11 00:00:00 Completed [facility] TDAP 2019-12-11 00:00:00 Completed [facility] TDAP 2019-12-11 00:00:00 Completed [facility] TDAP 2019-12-11 00:00:00 Completed [facility] TDAP 2019-12-11 00:00:00 Completed [facility] TDAP 2019-12-11 00:00:00 Completed [facility] TDAP 2019-12-11 00:00:00 Completed [facility] TDAP 2019-12-11 00:00:00 Completed [facility] TDAP 2019-12-11 00:00:00 Completed [facility] TDAP 2019-12-11 00:00:00 Completed [facility] TDAP 2019-12-11 00:00:00 Completed [facility] TDAP 2019-12-11 00:00:00 Completed [facility] TDAP 2019-12-11 00:00:00 Completed [facility] TDAP 2019-12-11 00:00:00 Completed [facility] TDAP 2019-12-11 00:00:00 Completed [facility] TDAP 2019-12-11 00:00:00 Completed [facility] TDAP 2019-12-11 00:00:00 Completed [facility] TDAP 2019-12-11 00:00:00 Completed [facility] TDAP 2019-12-11 00:00:00 Completed [facility] TDAP 2019-12-11 00:00:00 Completed [facility] TDAP 2019-12-11 00:00:00 Completed [facility] TDAP 2019-12-11 00:00:00 Completed [facility] TDAP 2019-12-11 00:00:00 Completed [facility] TDAP 2019-12-11 00:00:00 Completed [facility] TDAP 2019-12-11 00:00:00 Completed [facility] TDAP 2019-12-11 00:00:00 Completed [facility] TDAP 2019-12-11 00:00:00 Completed [facility] TDAP 2019-12-11 00:00:00 Completed [facility] TDAP 2019-12-11 00:00:00 Completed [facility] TDAP 2019-12-11 00:00:00 Completed [facility] TDAP 2019-12-11 00:00:00 Completed [facility] TDAP 2019-12-11 00:00:00 Completed [facility] TDAP 2019-12-11 00:00:00 Completed [facility] TDAP 2019-12-11 00:00:00 Completed [facility] TDAP 2019-12-11 00:00:00 Completed [facility] TDAP 2019-12-11 00:00:00 Completed [facility] TDAP 2019-12-11 00:00:00 Completed [facility] TDAP 2019-12-11 00:00:00 Completed [facility] TDAP 2019-12-11 00:00:00 Completed [facility] TDAP 2019-12-11 00:00:00 Completed [facility] TDAP 2019-12-11 00:00:00 Completed [facility] TDAP 2019-12-11 00:00:00 Completed [facility] TDAP 2019-12-11 00:00:00 Completed [facility] TDAP 2019-12-11 00:00:00 Completed [facility] TDAP 2019-12-11 00:00:00 Completed [facility] TDAP 2019-12-11 00:00:00 Completed [facility] TDAP 2019-12-11 00:00:00 Completed [facility] TDAP 2019-12-11 00:00:00 Completed [facility] TDAP 2019-12-11 00:00:00 Completed [facility] TDAP 2019-12-11 00:00:00 Completed [facility] TDAP 2019-12-11 00:00:00 Completed [facility] TDAP 2019-12-11 00:00:00 Completed [facility] TDAP 2019-12-11 00:00:00 Completed [facility] TDAP 2019-12-11 00:00:00 Completed [facility] TDAP 2019-12-11 00:00:00 Completed [facility] TDAP 2019-12-11 00:00:00 Completed [facility] Pneumococcal Polysaccharide, PPSV23 (PNEUMOVAX) 2013-01-08 00:00:00 Completed [facility] Pneumococcal Polysaccharide, PPSV23 (PNEUMOVAX) 2013-01-08 00:00:00 Completed TDAP Unknown Completed [facility] SARS-COV-2 COVID-19 PFIZER VACCINE Unknown Completed [facility] Influenza Virus Vaccine Quad IM, Preserv and ABX Free 6 MO-64 YRS (FLUCELVAX) Unknown Completed [facility] TDAP Unknown Completed [facility] SARS-COV-2 COVID-19 PFIZER VACCINE Unknown Completed [facility] Influenza Virus Vaccine Quad IM, Preserv and ABX Free 6 MO-64 YRS (FLUCELVAX) Unknown Completed [facility] TDAP Unknown Completed [facility] SARS-COV-2 COVID-19 PFIZER VACCINE Unknown Completed [facility] Influenza Virus Vaccine Quad IM, Preserv and ABX Free 6 MO-64 YRS (FLUCELVAX) Unknown Completed [facility] TDAP Unknown Completed [facility] SARS-COV-2 COVID-19 PFIZER VACCINE Unknown Completed [facility] Influenza Virus Vaccine Quad IM, Preserv and ABX Free 6 MO-64 YRS (FLUCELVAX) Unknown Completed [facility] TDAP Unknown Completed [facility] SARS-COV-2 COVID-19 PFIZER VACCINE Unknown Completed [facility] Influenza Virus Vaccine Quad IM, Preserv and ABX Free 6 MO-64 YRS (FLUCELVAX) Unknown Completed [facility] TDAP Unknown Completed [facility] SARS-COV-2 COVID-19 PFIZER VACCINE Unknown Completed [facility] Influenza Virus Vaccine Quad IM, Preserv and ABX Free 6 MO-64 YRS (FLUCELVAX) Unknown Completed [facility] TDAP Unknown Completed [facility] SARS-COV-2 COVID-19 PFIZER VACCINE Unknown Completed [facility] Influenza Virus Vaccine Quad IM, Preserv and ABX Free 6 MO-64 YRS (FLUCELVAX) Unknown Completed [facility] TDAP Unknown Completed [facility] SARS-COV-2 COVID-19 PFIZER VACCINE Unknown Completed [facility] Influenza Virus Vaccine Quad IM, Preserv and ABX Free 6 MO-64 YRS (FLUCELVAX) Unknown Completed [facility] TDAP Unknown Completed [facility] SARS-COV-2 COVID-19 PFIZER VACCINE Unknown Completed [facility] Influenza Virus Vaccine Quad IM, Preserv and ABX Free 6 MO-64 YRS (FLUCELVAX) Unknown Completed [facility] TDAP Unknown Completed [facility] SARS-COV-2 COVID-19 PFIZER VACCINE Unknown Completed [facility] Influenza Virus Vaccine Quad IM, Preserv and ABX Free 6 MO-64 YRS (FLUCELVAX) Unknown Completed [facility] TDAP Unknown Completed [facility] SARS-COV-2 COVID-19 PFIZER VACCINE Unknown Completed [facility] Influenza Virus Vaccine Quad IM, Preserv and ABX Free 6 MO-64 YRS (FLUCELVAX) Unknown Completed [facility] TDAP Unknown Completed [facility] SARS-COV-2 COVID-19 PFIZER VACCINE Unknown Completed [facility] Influenza Virus Vaccine Quad IM, Preserv and ABX Free 6 MO-64 YRS (FLUCELVAX) Unknown Completed [facility] TDAP Unknown Completed [facility] SARS-COV-2 COVID-19 PFIZER VACCINE Unknown Completed [facility] Influenza Virus Vaccine Quad IM, Preserv and ABX Free 6 MO-64 YRS (FLUCELVAX) Unknown Completed [facility] TDAP Unknown Completed [facility] SARS-COV-2 COVID-19 PFIZER VACCINE Unknown Completed [facility] Influenza Virus Vaccine Quad IM, Preserv and ABX Free 6 MO-64 YRS (FLUCELVAX) Unknown Completed [facility] TDAP Unknown Completed [facility] Influenza Virus Vaccine Quad IM, Preserv and ABX Free 6 MO-64 YRS (FLUCELVAX) Unknown Completed [facility] SARS-COV-2 COVID-19 PFIZER VACCINE Unknown Completed [facility] TDAP Unknown Completed [facility] SARS-COV-2 COVID-19 PFIZER VACCINE Unknown Completed [facility] Influenza Virus Vaccine Quad IM, Preserv and ABX Free 6 MO-64 YRS (FLUCELVAX) Unknown Completed [facility] TDAP Unknown Completed [facility] SARS-COV-2 COVID-19 PFIZER VACCINE Unknown Completed [facility] Influenza Virus Vaccine Quad IM, Preserv and ABX Free 6 MO-64 YRS (FLUCELVAX) Unknown Completed [facility] TDAP Unknown Completed [facility] SARS-COV-2 COVID-19 PFIZER VACCINE Unknown Completed [facility] Influenza Virus Vaccine Quad IM, Preserv and ABX Free 6 MO-64 YRS (FLUCELVAX) Unknown Completed [facility] TDAP Unknown Completed [facility] SARS-COV-2 COVID-19 PFIZER VACCINE Unknown Completed [facility] Influenza Virus Vaccine Quad IM, Preserv and ABX Free 6 MO-64 YRS (FLUCELVAX) Unknown Completed [facility] TDAP Unknown Completed [facility] SARS-COV-2 COVID-19 PFIZER VACCINE Unknown Completed [facility] Influenza Virus Vaccine Quad IM, Preserv and ABX Free 6 MO-64 YRS (FLUCELVAX) Unknown Completed [facility] TDAP Unknown Completed [facility] SARS-COV-2 COVID-19 PFIZER VACCINE Unknown Completed [facility] Influenza Virus Vaccine Quad IM, Preserv and ABX Free 6 MO-64 YRS (FLUCELVAX) Unknown Completed [facility] TDAP Unknown Completed [facility] Influenza Virus Vaccine Quad IM, Preserv and ABX Free 6 MO-64 YRS (FLUCELVAX) Unknown Completed [facility] SARS-COV-2 COVID-19 PFIZER VACCINE Unknown Completed [facility] TDAP Unknown Completed [facility] SARS-COV-2 COVID-19 PFIZER VACCINE Unknown Completed [facility] Influenza Virus Vaccine Quad IM, Preserv and ABX Free 6 MO-64 YRS (FLUCELVAX) Unknown Completed [facility] TDAP Unknown Completed [facility] Influenza Virus Vaccine Quad IM, Preserv and ABX Free 6 MO-64 YRS (FLUCELVAX) Unknown Completed [facility] SARS-COV-2 COVID-19 PFIZER VACCINE Unknown Completed [facility] TDAP Unknown Completed [facility] SARS-COV-2 COVID-19 PFIZER VACCINE Unknown Completed [facility] Influenza Virus Vaccine Quad IM, Preserv and ABX Free 6 MO-64 YRS (FLUCELVAX) Unknown Completed [facility] TDAP Unknown Completed [facility] Influenza Virus Vaccine Quad IM, Preserv and ABX Free 6 MO-64 YRS (FLUCELVAX) Unknown Completed [facility] SARS-COV-2 COVID-19 PFIZER VACCINE Unknown Completed [facility] TDAP Unknown Completed [facility] SARS-COV-2 COVID-19 PFIZER VACCINE Unknown Completed [facility] Influenza Virus Vaccine Quad IM, Preserv and ABX Free 6 MO-64 YRS (FLUCELVAX) Unknown Completed [facility] TDAP Unknown Completed [facility] SARS-COV-2 COVID-19 PFIZER VACCINE Unknown Completed [facility] Influenza Virus Vaccine Quad IM, Preserv and ABX Free 6 MO-64 YRS (FLUCELVAX) Unknown Completed [facility] TDAP Unknown Completed [facility] SARS-COV-2 COVID-19 PFIZER VACCINE Unknown Completed [facility] Influenza Virus Vaccine Quad IM, Preserv and ABX Free 6 MO-64 YRS (FLUCELVAX) Unknown Completed [facility] TDAP Unknown Completed [facility] SARS-COV-2 COVID-19 PFIZER VACCINE Unknown Completed [facility] Influenza Virus Vaccine Quad IM, Preserv and ABX Free 6 MO-64 YRS (FLUCELVAX) Unknown Completed [facility] TDAP Unknown Completed [facility] SARS-COV-2 COVID-19 PFIZER VACCINE Unknown Completed [facility] Influenza Virus Vaccine Quad IM, Preserv and ABX Free 6 MO-64 YRS (FLUCELVAX) Unknown Completed [facility] SARS-COV-2 COVID-19 VACCINE - (MODERNA) Unknown Completed [facility] Pneumococcal Polysaccharide, PPSV23 (PNEUMOVAX) Unknown Completed [facility] TDAP Unknown Completed [facility] Influenza Virus Vaccine Quad IM, Preserv and ABX Free 6 MO-64 YRS (FLUCELVAX) Unknown Completed [facility] SARS-COV-2 COVID-19 VACCINE - (MODERNA) Unknown Completed [facility] Pneumococcal Polysaccharide, PPSV23 (PNEUMOVAX) Unknown Completed [facility] SARS-COV-2 COVID-19 PFIZER VACCINE Unknown Completed [facility] TDAP Unknown Completed [facility] SARS-COV-2 COVID-19 PFIZER VACCINE Unknown Completed [facility] Influenza Virus Vaccine Quad IM, Preserv and ABX Free 6 MO-64 YRS (FLUCELVAX) Unknown Completed [facility] SARS-COV-2 COVID-19 VACCINE - (MODERNA) Unknown Completed [facility] Pneumococcal Polysaccharide, PPSV23 (PNEUMOVAX) Unknown Completed [facility] TDAP Unknown Completed [facility] Influenza Virus Vaccine Quad IM, Preserv and ABX Free 6 MO-64 YRS (FLUCELVAX) Unknown Completed [facility] SARS-COV-2 COVID-19 VACCINE - (MODERNA) Unknown Completed [facility] Pneumococcal Polysaccharide, PPSV23 (PNEUMOVAX) Unknown Completed [facility] TDAP Unknown Completed [facility] SARS-COV-2 COVID-19 PFIZER VACCINE Unknown Completed [facility] Influenza Virus Vaccine Quad IM, Preserv and ABX Free 6 MO-64 YRS (FLUCELVAX) Unknown Completed [facility] SARS-COV-2 COVID-19 VACCINE - (MODERNA) Unknown Completed [facility] Pneumococcal Polysaccharide, PPSV23 (PNEUMOVAX) Unknown Completed [facility] SARS-COV-2 COVID-19 PFIZER VACCINE Unknown Completed [facility] TDAP Unknown Completed [facility] SARS-COV-2 COVID-19 PFIZER VACCINE Unknown Completed [facility] Influenza Virus Vaccine Quad IM, Preserv and ABX Free 6 MO-64 YRS (FLUCELVAX) Unknown Completed [facility] SARS-COV-2 COVID-19 VACCINE - (MODERNA) Unknown Completed [facility] Pneumococcal Polysaccharide, PPSV23 (PNEUMOVAX) Unknown Completed [facility] TDAP Unknown Completed [facility] SARS-COV-2 COVID-19 PFIZER VACCINE Unknown Completed [facility] Influenza Virus Vaccine Quad IM, Preserv and ABX Free 6 MO-64 YRS (FLUCELVAX) Unknown Completed [facility] SARS-COV-2 COVID-19 VACCINE - (MODERNA) Unknown Completed [facility] Pneumococcal Polysaccharide, PPSV23 (PNEUMOVAX) Unknown Completed [facility] TDAP Unknown Completed [facility] SARS-COV-2 COVID-19 PFIZER VACCINE Unknown Completed [facility] Influenza Virus Vaccine Quad IM, Preserv and ABX Free 6 MO-64 YRS (FLUCELVAX) Unknown Completed [facility] SARS-COV-2 COVID-19 VACCINE - (MODERNA) Unknown Completed [facility] Pneumococcal Polysaccharide, PPSV23 (PNEUMOVAX) Unknown Completed [facility] TDAP Unknown Completed [facility] SARS-COV-2 COVID-19 PFIZER VACCINE Unknown Completed [facility] Influenza Virus Vaccine Quad IM, Preserv and ABX Free 6 MO-64 YRS (FLUCELVAX) Unknown Completed [facility] SARS-COV-2 COVID-19 VACCINE - (MODERNA) Unknown Completed [facility] Pneumococcal Polysaccharide, PPSV23 (PNEUMOVAX) [facility] SARS-COV-2 COVID-19 PFIZER VACCINE Unknown Completed [facility] Influenza Virus Vaccine Quad IM, Preserv and ABX Free 6 MO-64 YRS (FLUCELVAX) Unknown Completed [facility] SARS-COV-2 COVID-19 VACCINE - (MODERNA) Unknown Completed [facility] Pneumococcal Polysaccharide, PPSV23 (PNEUMOVAX) Unknown Completed [facility] TDAP Unknown Completed [facility] SARS-COV-2 COVID-19 PFIZER VACCINE Unknown Completed [facility] Influenza Virus Vaccine Quad IM, Preserv and ABX Free 6 MO-64 YRS (FLUCELVAX) Unknown Completed [facility] SARS-COV-2 COVID-19 VACCINE - (MODERNA) Unknown Completed [facility] Pneumococcal Polysaccharide, PPSV23 (PNEUMOVAX) Unknown Completed [facility] TDAP Unknown Completed [facility] SARS-COV-2 COVID-19 PFIZER VACCINE Unknown Completed [facility] Influenza Virus Vaccine Quad IM, Preserv and ABX Free 6 MO-64 YRS (FLUCELVAX) Unknown Completed [facility] SARS-COV-2 COVID-19 VACCINE - (MODERNA) Unknown Completed [facility] Pneumococcal Polysaccharide, PPSV23 (PNEUMOVAX) Unknown Completed [facility] TDAP Unknown Completed [facility] SARS-COV-2 COVID-19 PFIZER VACCINE Unknown Completed [facility] Influenza Virus Vaccine Quad IM, Preserv and ABX Free 6 MO-64 YRS (FLUCELVAX) Unknown Completed [facility] SARS-COV-2 COVID-19 VACCINE - (MODERNA) Unknown Completed [facility] Pneumococcal Polysaccharide, PPSV23 (PNEUMOVAX) Unknown Completed [facility] TDAP Unknown Completed [facility] SARS-COV-2 COVID-19 PFIZER VACCINE Unknown Completed [facility] Influenza Virus Vaccine Quad IM, Preserv and ABX Free 6 MO-64 YRS (FLUCELVAX) Unknown Completed [facility] SARS-COV-2 COVID-19 VACCINE - (MODERNA) Unknown Completed [facility] Pneumococcal Polysaccharide, PPSV23 (PNEUMOVAX) Unknown Completed [facility] TDAP Unknown Completed [facility] SARS-COV-2 COVID-19 PFIZER VACCINE Unknown Completed [facility] Influenza Virus Vaccine Quad IM, Preserv and ABX Free 6 MO-64 YRS (FLUCELVAX) Unknown Completed [facility] SARS-COV-2 COVID-19 VACCINE - (MODERNA) Unknown Completed [facility] Pneumococcal Polysaccharide, PPSV23 (PNEUMOVAX) Unknown Completed [facility] TDAP Unknown Completed [facility] SARS-COV-2 COVID-19 PFIZER VACCINE Unknown Completed [facility] Influenza Virus Vaccine Quad IM, Preserv and ABX Free 6 MO-64 YRS (FLUCELVAX) Unknown Completed [facility] SARS-COV-2 COVID-19 VACCINE - (MODERNA) Unknown Completed [facility] Pneumococcal Polysaccharide, PPSV23 (PNEUMOVAX) Unknown Completed [facility] TDAP Unknown Completed [facility] SARS-COV-2 COVID-19 PFIZER VACCINE Unknown Completed [facility] Influenza Virus Vaccine Quad IM, Preserv and ABX Free 6 MO-64 YRS (FLUCELVAX) Unknown Completed [facility] SARS-COV-2 COVID-19 VACCINE - (MODERNA) Unknown Completed [facility] Pneumococcal Polysaccharide, PPSV23 (PNEUMOVAX) Unknown Completed [facility] TDAP Unknown Completed [facility] SARS-COV-2 COVID-19 PFIZER VACCINE Unknown Completed [facility] Influenza Virus Vaccine Quad IM, Preserv and ABX Free 6 MO-64 YRS (FLUCELVAX) Unknown Completed [facility] SARS-COV-2 COVID-19 VACCINE - (MODERNA) Unknown Completed [facility] Pneumococcal Polysaccharide, PPSV23 (PNEUMOVAX) Unknown [facility] Completed [facility] SARS-COV-2 COVID-19 PFIZER VACCINE Unknown Completed [facility] Influenza Virus Vaccine Quad IM, Preserv and ABX Free 6 MO-64 YRS (FLUCELVAX) Unknown Completed [facility] SARS-COV-2 COVID-19 VACCINE - (MODERNA) Unknown Completed [facility] Pneumococcal Polysaccharide, PPSV23 (PNEUMOVAX) Unknown Completed [facility] TDAP Unknown Completed [facility] SARS-COV-2 COVID-19 PFIZER VACCINE Unknown Completed [facility] Influenza Virus Vaccine Quad IM, Preserv and ABX Free 6 MO-64 YRS (FLUCELVAX) Unknown Completed [facility] SARS-COV-2 COVID-19 VACCINE - (MODERNA) Unknown Completed [facility] Pneumococcal Polysaccharide, PPSV23 (PNEUMOVAX) Unknown Completed [facility] TDAP Unknown Completed [facility] SARS-COV-2 COVID-19 PFIZER VACCINE Unknown Completed [facility] Influenza Virus Vaccine Quad IM, Preserv and ABX Free 6 MO-64 YRS (FLUCELVAX) Unknown Completed [facility] SARS-COV-2 COVID-19 VACCINE - (MODERNA) Unknown Completed [facility] Pneumococcal Polysaccharide, PPSV23 (PNEUMOVAX) Unknown Completed [facility] TDAP Unknown Completed [facility] SARS-COV-2 COVID-19 PFIZER VACCINE Unknown Completed [facility] Influenza Virus Vaccine Quad IM, Preserv and ABX Free 6 MO-64 YRS (FLUCELVAX) Unknown Completed [facility] SARS-COV-2 COVID-19 VACCINE - (MODERNA) Unknown Completed [facility] Pneumococcal Polysaccharide, PPSV23 (PNEUMOVAX) Unknown Completed [facility] TDAP Unknown Completed [facility] SARS-COV-2 COVID-19 PFIZER VACCINE Unknown Completed [facility] Influenza Virus Vaccine Quad IM, Preserv and ABX Free 6 MO-64 YRS (FLUCELVAX) Unknown Completed [facility] SARS-COV-2 COVID-19 VACCINE - (MODERNA) Unknown Completed [facility] Pneumococcal Polysaccharide, PPSV23 (PNEUMOVAX) Unknown Completed [facility] COVID-19 Vaccine(Pfizer)(12y rs+) Unknown Completed Alejandra Valverde - External Influenza, Injectable, Mdck, Preservative Free, Quadrivalent Unknown Completed Alejandra Gilold - External FLUCELVAX TRIVALENT PF Unknown Completed Alejandra Valverde - External Tdap- (Boostrix, Adacel) Unknown Completed Alejandra Valverde - External Shingles IM (Shingrix) Unknown Completed Alejandra Valverde - External Vital Signs Vital Name Observation Time Observation Value Comments S ource Systolic blood pressure 2024-08-13 20:32:00 101 mm[Hg] [facility] Diastolic blood pressure 2024-08-13 20:32:00 73 mm[Hg] [facility] Heart rate 2024-08-13 20:32:00 68 /min [facility] Respiratory rate 2024-08-13 20:32:00 18 /min [facility] Body height 2024-08-13 20:32:00 157.5 cm [facility] Body weight 2024-08-13 20:32:00 65.828 kg [facility] BMI 2024-08-13 20:32:00 26.54 kg/m2 [facility] Oxygen saturation in Arterial blood by Pulse oximetry 2024-08-13 20:32:00 99 /min [facility] Systolic blood pressure 2024-05-02 21:16:00 135 mm[Hg] [facility] Diastolic blood pressure 2024-05-02 21:16:00 72 mm[Hg] [facility] Heart rate 2024-05-02 21:16:00 108 /min [facility] Body temperature 2024-05-02 21:16:00 36.72 Kimberly [facility] Body weight 2024-05-02 21:16:00 73.936 kg [facility] BMI 2024-05-02 21:16:00 29.81 kg/m2 [facility] Systolic blood pressure 2024-01-31 19:38:00 121 mm[Hg] Alejandra Gilo ld - External Diastolic blood pressure 2024-01-31 19:38:00 86 mm[Hg] Alejandra Gilo ld - External Heart rate 2024-01-31 19:38:00 103 /min Sarabjit Valverde - External Body temperature 2024-01-31 19:38:00 36.44 Kimberly Alejandra Avendanoybold - External Respiratory rate 2024-01-31 19:38:00 18 /min Alejandra Avendanoybold - External Body height 2024-01-31 19:38:00 157.5 cm Carly florence Seybold - External Body weight 2024-01-31 19:38:00 77.111 kg Carly ey Seybold - External BMI 2024-01-31 19:38:00 31.09 kg/m2 Carly ey ybold - External Oxygen saturation in Arterial blood by Pulse oximetry 2024-01-31 19:38:00 100 /min Alejandra Gilo ld - External Systolic blood pressure 2023-10-26 19:14:00 145 mm[Hg] [facility] Diastolic blood pressure 2023-10-26 19:14:00 90 mm[Hg] [facility] Heart rate 2023-10-26 19:13:00 109 /min [facility] Body temperature 2023-10-26 19:13:00 36.78 Kimberly [facility] Respiratory rate 2023-10-26 19:13:00 18 /min [facility] Body height 2023-10-26 19:13:00 157.5 cm [facility] Body weight 2023-10-26 19:13:00 77.111 kg [facility] BMI 2023-10-26 19:13:00 31.09 kg/m2 [facility] Oxygen saturation in Arterial blood by Pulse oximetry 2023-10-26 19:13:00 99 /min [facility] Systolic blood pressure 2023-10-03 19:20:00 115 mm[Hg] [facility] Diastolic blood pressure 2023-10-03 19:20:00 81 mm[Hg] [facility] Heart rate 2023-10-03 19:20:00 113 /min [facility] Body height 2023-10-03 19:20:00 157.5 cm [facility] Body weight 2023-10-03 19:20:00 71.442 kg [facility] BMI 2023-10-03 19:20:00 28.81 kg/m2 [facility] Oxygen saturation in Arterial blood by Pulse oximetry 2023-10-03 19:20:00 98 /min [facility] Systolic blood pressure 2023-08-19 16:14:00 78 mm[Hg] [facility] Diastolic blood pressure 2023-08-19 16:14:00 52 mm[Hg] [facility] Heart rate 2023-08-19 16:02:00 99 /min [facility] Body temperature 2023-08-19 16:02:00 36.89 Kimberly [facility] Body height 2023-08-19 16:02:00 157.5 cm [facility] Body weight 2023-08-19 16:02:00 72.303 kg [facility] BMI 2023-08-19 16:02:00 29.15 kg/m2 [facility] Oxygen saturation in Arterial blood by Pulse oximetry 2023-08-19 16:02:00 97 /min [facility] Systolic blood pressure 2023-07-20 14:56:00 101 mm[Hg] [facility] Diastolic blood pressure 2023-07-20 14:56:00 66 mm[Hg] [facility] Heart rate 2023-07-20 14:56:00 93 /min [facility] Body temperature 2023-07-20 14:56:00 36.72 Kimberly [facility] Body height 2023-07-20 14:56:00 157.5 cm [facility] Body weight 2023-07-20 14:56:00 74.844 kg [facility] BMI 2023-07-20 14:56:00 30.18 kg/m2 [facility] Systolic blood pressure 2023-05-04 19:34:00 144 mm[Hg] [facility] Diastolic blood pressure 2023-05-04 19:34:00 83 mm[Hg] [facility] Heart rate 2023-05-04 19:33:00 106 /min [facility] 2023-05-04 19:33:00 157[facility]5 [facility] 2023-05-04 19:33:00 73.029 [facility] 2023-05-04 19:33:00 29.45 kg/m2 [facility] Systolic blood pressure 2022-08-02 15:09:00 126 mm[Hg] [facility] Diastolic blood pressure 2022-08-02 15:09:00 82 mm[Hg] [facility] Heart rate 2022-08-02 15:09:00 114 /min [facility] 2022-08-02 15:09:00 157.5 cm [facility] Body weight 2022-08-02 15:09:00 74.844 kg [facility] BMI 2022-08-02 15:09:00 30.18 kg/m2 [facility] Systolic blood pressure 2022-03-31 19:09:00 96 mm[Hg] [facility] Diastolic blood pressure 2022-03-31 19:09:00 63 mm[Hg] [facility] Heart rate 2022-03-31 19:09:00 128 /min [facility] Body temperature 2022-03-31 19:09:00 37.39 Kimberly [facility] Body height 2022-03-31 19:09:00 157.5 cm [facility] Body weight 2022-03-31 19:09:00 79.833 kg [facility] BMI 2022-03-31 19:09:00 32.19 kg/m2 [facility] Systolic blood pressure 2022-02-26 18:01:00 118 mm[Hg] [facility] Diastolic blood pressure 2022-02-26 18:01:00 78 mm[Hg] [facility] Heart rate 2022-02-26 18:01:00 114 /min [facility] Body height 2022-02-26 18:01:00 157.5 cm [facility] Body weight 2022-02-26 18:01:00 85.367 kg [facility] BMI 2022-02-26 18:01:00 34.42 kg/m2 [facility] Oxygen saturation in Arterial blood by Pulse oximetry 2022-02-26 18:01:00 95 /min [facility] Systolic blood pressure 2022-01-12 20:02:00 143 mm[Hg] [facility] Diastolic blood pressure 2022-01-12 20:02:00 82 mm[Hg] [facility] Heart rate 2022-01-12 20:01:00 120 /min [facility] Body temperature 2022-01-12 20:01:00 37.22 Kimberly [facility] Body height 2022-01-12 20:01:00 157.5 cm [facility] Body weight 2022-01-12 20:01:00 86.637 kg [facility] BMI 2022-01-12 20:01:00 34.93 kg/m2 [facility] Systolic blood pressure 2024-05-02 21:16:00 135 mm[Hg] [facility] Diastolic blood pressure 2024-05-02 21:16:00 72 mm[Hg] [facility] Heart rate 2024-05-02 21:16:00 108 /[facility] Body temperature 2024-05-02 21:16:00 36.72 Kimberly [facility] Body weight 2024-05-02 21:16:00 73.936 kg [facility] BMI 2024-05-02 21:16:00 29.81 kg/m2 [facility] Systolic blood pressure 2023-10-26 19:14:00 145 mm[Hg] [facility] Diastolic blood pressure 2023-10-26 19:14:00 90 mm[Hg] [facility] Heart rate 2023-10-26 19:13:00 109 /min [facility] 2023-10-26 19:13:00 36.78 Kimberly [facility] Respiratory rate 2023-10-26 19:13:00 18 /min [facility] Body height 2023-10-26 19:13:00 157.5 cm [facility] Body weight 2023-10-26 19:13:00 77.111 kg [facility] BMI 2023-10-26 19:13:00 31.09 kg/m2 [facility] Oxygen saturation in Arterial blood by Pulse oximetry 2023-10-26 19:13:00 99 /min [facility] BP Systolic 2022-02-11 11:33:00 BP [...] Date / Time Performed Performing Clinician Source POCT HEMOGLOBIN A1C TEST 2024-08-13 20:33:00 Christiano Preston [facility] DME/SUPPLY JUSTIFICATION 2024-03-12 19:55:02 Doc tor Unassigned, [place] [facility] DME/SUPPLY JUSTIFICATION 2024-03-12 19:55:02 Doc tor Unassigned, [place] [facility] MICROALBUMIN URINE 2023-10-03 20:19:00 Val Preston [facility] LIPID PANEL (92171)(TOTAL CHOLESTEROL, TRIGLYCERIDES, HDL) 2023-10-03 20:19:00 Val Preston [facility] COMP. METABOLIC PANEL ([id number]) 2023-10-03 20:19:00 Val Preston [facility] CBC WITH DIFF 2023-10-03 20:19:00 Val Preston [facility] THYROID STIMULATING HORMONE 2023-10-03 20:19:00 Val Preston [facility] FREE T4 2023-10-03 20:19:00 Val Preston [facility] TRIIODOTHYRONINE 2023-10-03 20:19:00 Val Preston [facility] POCT HEMOGLOBIN A1C TEST 2023-10-03 19:22:00 Christiano Preston [facility] POCT HEMOGLOBIN A1C TEST 2023-10-03 19:22:00 Christiano Preston [facility] RADIOLOGY DOCUMENTATION 2023-08-24 18:33:28 Doct or Unassigned, [place] [facility] RADIOLOGY DOCUMENTATION 2023-08-24 18:33:28 Doct or Unassigned, [place] [facility] DME/SUPPLY JUSTIFICATION 2023-06-20 06:01:00 Doc tor Unassigned, [place] [facility] CONSENT/REFUSAL FOR DIAGNOSIS AND TREATMENT 2023-05-04 19:00:34 Doctor Unassigned, [place] [facility] MEDICATION CORRESPONDENCE 2023-04-01 06:01:00 Do ctor Unassigned, [place] [facility] MEDICAL RELEASE/CLEARANCE FORMS 2022-09-06 05:01:00 Doctor Unassigned, [place] [facility] PATIENT FINANCIAL POLICY 2022-08-02 15:01:15 Doctor Unassigned, [place] [facility] DME/SUPPLY JUSTIFICATION 2022-05-17 06:01:00 Doc tor Unassigned, [place] [facility] DME/SUPPLY JUSTIFICATION 2022-05-03 06:01:00 Doc tor Unassigned, [place] [facility] MEDICATION CORRESPONDENCE 2022-04-06 06:01:00 Do ctor Unassigned, [place] [facility] INSURANCE CORRESPONDENCE 2022-03-17 06:01:00 Doc tor Unassigned, [place] [facility] DME/SUPPLY JUSTIFICATION 2022-03-11 06:01:00 Doc tor Unassigned, [place] [facility] EXTERNAL PROVIDER RECORDS 2022-01-28 05:01:00 Do ctor Unassigned, [place] [facility] ASSIGNMENT OF BENEFITS 2022-01-12 19:46:51 Docto r Unassigned, [place] [facility] POCT HEMOGLOBIN A1C TEST 2022-01-12 00:00:00 Florecita Valentin [facility] INSURANCE CORRESPONDENCE 2021-11-12 05:01:00 Doc tor Unassigned, [place] [facility] EXTERNAL MAMMOGRAM 2016-11-30 13:00:00 Doctor Un assigned, [place] [facility] GALV ONLY - HIV TYPE 1 AND 2 ANTIBODY TESTING 2014-09-01 04:30:00 Britton Bains [facility] HCV ANTIBODY 2005-12-13 08:00:00 Kartik Velez [facility] Plan of Care Planned Activity Planned Date Details Comments Source Goal Plan of Care Note [code = 08170-8] Goal Plan of Care Note [code = 55115-1] Goal Plan of Care Note [code = 35172-6] Goal Plan of Care Note [code = 14481-5] Goal Plan of Care Note [code = 88302-9] Goal Plan of Care Note [code = 83293-0] Goal Plan of Care Note [code = 11910-5] Goal Plan of Care Note [code = 05466-9] Goal Plan of Care Note [code = 44788-7] Goal Plan of Care Note [code = 68566-6] Goal Plan of Care Note [code = 79854-0] Goal Plan of Care Note [code = 11286-5] Goal Plan of Care Note [code = 73336-7] Goal Plan of Care Note [code = 22075-8] Goal Plan of Care Note [code = 85762-7] Goal Plan of Care Note [code = 25785-8] Goal Plan of Care Note [code = 08791-5] Goal Plan of Care Note [code = 51650-4] Goal Plan of Care Note [code = 62989-9] Goal Plan of Care Note [code = 33713-9] Encounters Start Date/Time End Date/Time Encounter Type Admission Type Attending Clinicians Care Facility Care Department Encounter ID Source 2022-12-20 10:01:00 Outpatient MccallGabriel sánchezh [facility] [id number] [facility] 2022-12-17 16:40:00 Outpatient MccallGabriel sánchezh [facility] [id number] [facility] 2022-09-30 08:53:00 [facility] [id number] [facility] 2024-08-20 10:00:00 2024-08-20 10:00:00 Outpatient VAL SCOTT [facility] [id number] [facility] 2024-08-16 00:00:00 2024-08-16 13:55:25 Telephone Florecita Atkins [facility] OFF[facility] BU[facility] 1.2.840.114 350.1.13.10 4.2.7.2.686 [id number] [facility] 2024-08-13 16:15:00 2024-08-13 16:30:00 Land Classifier Visit Lab, Val Garsia Lab, Renzo Campos [facility] OFF[facility] BU[facility] 1.2.840.114 350.1.13.10 4.2.7.2.686 [id number] [facility] 2024-08-13 15:30:00 2024-08-13 16:00:00 Office Visit Val Preston [facility] OFF[facility] BU[facility] 1.2.840.114 350.1.13.10 4.2.7.2.686 [id number] [facility] 2024-08-13 15:30:00 2024-08-13 15:30:00 Outpatient R VAL PRESTON [facility] [id number] [facility] 2024-08-09 00:00:00 2024-08-09 10:40:13 Florecita Montoya [facility] 1.2.840.114 350.1.13.10 4.2.7.2.686 [id number] 044 [id number] [facility] 2024-08-08 00:00:00 2024-08-08 09:03:43 Florecita Montoya [facility] 1.2.840.114 350.1.13.10 4.2.7.2.686 [id number] [id number] [facility] 2024-07-31 10:45:44 2024-07-31 10:45:44 Outpatient [facility] [id number] Scott F Shaun 2024-07-26 00:00:00 2024-07-26 09:42:31 RefVincenzo Reynolds Dayanna [facility] JAYY?[facility] OFF[facility] BUILD[facility] 1.2.840.114 350.1.13.10 4.2.7.2.686 [id number] [facility] 2024-07-24 00:00:00 2024-07-24 16:50:13 Florecita Montoya [facility] 1.2.840.114 350.1.13.10 4.2.7.2.686 [id number] [facility] 2024-07-10 14:15:00 2024-07-10 14:15:00 Outpatient Vee MILLY FLORECITA [facility] [id number] [facility] 2024-07-02 12:02:23 2024-07-02 12:02:23 Outpatient [facility] [id number] Scott F Shaun 2024-06-25 17:06:34 2024-06-25 17:06:34 Outpatient [facility] [id number] Scott Erika Shaun 2024-03-12 00:00:00 2024-06-09 06:37:04 Orders Only Doctor Unassigned, [place] Doctor Unassigned, [place] [facility] 1.2.840.114 350.1.13.10 4.2.7.2.686 [id number] [facility] 2023-08-24 00:00:00 2024-06-09 02:07:29 Orders Only Doctor Unassigned, [place] Doctor Unassigned, [place] [facility] 1.2.840.114 350.1.13.10 4.2.7.2.686 [id number] [facility] 2024-05-21 00:00:00 2024-05-22 08:39:54 Florecita Montoya 1.2.840.1 00316.1.1 3.104.2.7 .3.797252 .8 [id number] [facility] 2024-05-17 00:00:00 2024-05-18 08:20:20 Vincenzo Dean 1.2.840.1 68367.1.1 3.104.2.7 .3.341009 .8 [id number] [facility] 2024-05-07 00:00:00 2024-05-07 10:16:02 Letter (Out) 1.2.840.1 26091.1.1 3.104.2.7 .3.290437 .8 [id number] [facility] 2024-05-03 00:00:00 2024-05-03 00:00:00 Florecita Montoya 1.2.840.1 94080.1.1 3.104.2.7 .3.930340 .8 [id number] [facility] 2024-05-02 15:00:00 2024-05-02 15:31:20 Outpatient FLORECITA LINCOLN [facility] [id number] [facility] 2024-05-02 15:00:00 2024-05-02 15:31:20 Office Visit LoraineFlorecita taylor 1.2.840.1 47087.1.1 3.104.2.7 .3.908363 .8 [id number] [facility] 2024-05-02 00:00:00 2024-05-02 00:00:00 Travel 1.2.840.1 79813.1.1 3.104.2.7 .3.842504 .8 1.2.840.114 350.1.13.10 4.2.7.3.698 084.8 [id number] [facility] 2024-05-01 14:47:45 2024-05-01 14:47:45 Outpatient [facility] [id number] Scott Dunn 2024-04-30 00:00:00 2024-04-30 12:33:11 Refill Florecita Atkins 1.2.840.1 42478.1.1 3.104.2.7 .3.944976 .8 [id number] [facility] 2024-04-30 00:00:00 2024-04-30 10:24:36 Refill Val Preston 1.2.840.1 32200.1.1 3.104.2.7 .3.434051 .8 [id number] [facility] 2024-04-30 00:00:00 2024-04-30 10:24:02 Refill Vincenzo Sanches 1.2.840.1 31194.1.1 3.104.2.7 .3.700610 .8 [id number] [facility] 2024-04-27 00:00:00 2024-04-27 15:47:07 RefVal Zee 1.2.840.1 26374.1.1 3.104.2.7 .3.688831 .8 [id number] [facility] 2024-04-20 15:00:00 2024-04-20 15:30:00 Office Visit Marin Mendenhalllie Sudha 1.2.840.1 48787.1.1 3.104.2.7 .3.052617 .8 [id number] [facility] 2024-04-20 15:00:00 2024-04-20 15:00:00 Outpatient R PLACIDO, NINI [facility] [id number] [facility] 2024-04-20 00:00:00 2024-04-20 00:00:00 Travel 1.2.840.1 68954.1.1 3.104.2.7 .3.385491 .8 1.2.840.114 350.1.13.10 4.2.7.3.698 084.8 [id number] [facility] 2024-04-11 16:44:26 2024-04-11 16:44:26 Outpatient [facility] [id number] [facility] Scott James Shaun 2024-04-09 00:00:00 2024-04-10 11:39:16 Florecita Montoya 1.2.840.1 43765.1.1 3.104.2.7 .3.994461 .8 [id number] [facility] 2024-04-07 00:00:00 2024-04-09 16:22:38 Florecita Montoya 1.2.840.1 76987.1.1 3.104.2.7 .3.387195 .8 [id number] [facility] 2024-04-06 00:00:00 2024-04-09 08:01:37 Florecita Montoya 1.2.840.1 02394.1.1 3.104.2.7 .3.001483 .8 [id number] [facility] 2024-04-04 00:00:00 2024-04-05 16:32:57 Florecita Montoya 1.2.840.1 13840.1.1 3.104.2.7 .3.397157 .8 [id number] [facility] 2024-04-02 00:00:00 2024-04-02 13:54:01 Florecita Montoya 1.2.840.1 14049.1.1 3.104.2.7 .3.318813 .8 [id number] [facility] 2024-03-13 00:00:00 2024-03-13 00:00:00 Outpatient TIM CLARKE [id number] Alejandra Valverde 2024-03-08 16:00:00 2024-03-08 16:00:00 Outpatient FLORECITA LINCOLN [facility] [id number] [facility] 2024-03-05 00:00:00 2024-03-07 07:41:18 Telephone Val Preston [facility] MED[facility] OFF[facility] BUILD[facility] 1..840.114 350.1.13.10 4.2.7.2.686 [id number] 220 [id number] [facility] 2024-03-05 00:00:00 2024-03-05 11:53:16 [facility] 1..840.114 350.1.13.10 4.2.7.2.686 [id number] 044 [id number] [facility] 2024-02-27 00:00:00 2024-02-27 16:51:47 Telephone Florecita Atkins [facility] JAYY?[facility] MED[facility] OFFICE BUILDING 1..840.114 350.1.13.10 4.2.7.2.686 [id number] 044 [id number] [facility] 2024-02-24 00:00:00 2024-02-24 12:33:18 Telephone Florecita Atkins [facility] J[facility] OFFICE BUILDING 1.2840.114 350.1.13.10 4.2.7.2.686 [id number] 044 [id number] [facility] 2024-02-17 00:00:00 2024-02-21 09:15:19 Florecita Montoya [facility] 1.2.840.114 350.1.13.10 4.2.7.2.686 [id number] 044 [id number] [facility] 2024-02-08 00:00:00 2024-02-08 00:00:00 Outpatient JERAD ORTEGA [id number] [facility] 2024-02-07 00:00:00 2024-02-07 00:00:00 Outpatient TIM CLARKE [id number] [facility] 2024-02-05 00:00:00 2024-02-06 08:12:49 Bob Atkins [facility] 1.2.840.114 350.1.13.10 4.2.7.2.686 [id number] [facility] 2024-01-31 15:00:00 2024-01-31 15:00:00 Outpatient TIM CLARKE [id number] [facility] 2024-01-31 14:00:00 2024-01-31 14:00:00 Outpatient TIM CLARKE [id number] [facility] 2024-01-25 00:00:00 2024-01-25 08:43:51 Bob Atkins [facility] 1.2.840.114 350.1.13.10 4.2.7.2.686 [id number] [facility] 2024-01-09 13:30:00 2024-01-09 13:30:00 Outpatient VAL SCOTT [facility] [id number] [facility] 2023-11-02 00:00:00 2024-01-06 11:07:54 Refill Florecita Atkins [facility] J[facility]Y?[facility] OFF[facility] BU[facility] 1.2.840.114 350.1.13.10 4.2.7.2.686 [id number] [id number] [facility] 2024-01-02 00:00:00 2024-01-04 08:14:53 Refill Florecita Atkins [facility] J[facility]Y?[facility] OFF[facility] BUILD[facility] 1.2.840.114 350.1.13.10 4.2.7.2.686 [id number] [id number] [facility] 2023-12-22 00:00:00 2023-12-23 09:04:38 Telephone Milly [facility] MEDICAL OFFICE BUILDING 1.2.840.114 350.1.13.10 4.2.7.2.686 [id number] 044 [id number] [facility] 2023-12-22 00:00:00 2023-12-22 17:18:51 Nurse Triage Bindu Juares Sharon [facility] 1.2.840.114 350.1.13.10 4.2.7.2.686 [id number] [facility] 2023-12-22 09:04:53 2023-12-22 09:04:53 Outpatient [facility] [id number] Scott Dunn 2023-12-20 00:00:00 2023-12-20 10:46:18 Refelkin Atkins [facility] MEDICAL OFFICE BUILDING 1.2.840.114 350.1.13.10 4.2.7.2.686 [id number] [id number] [facility] 2023-12-07 00:00:00 2023-12-07 13:14:22 Telephone Amarilys Jerez [facility] MED[facility] OFFICE BUILDING 1.2.840.114 350.1.13.10 4.2.7.2.686 [id number] [id number] [facility] 2023-12-06 00:00:00 2023-12-06 15:36:58 Telephone Val Preston [facility] J[facility] MED[facility] OFFICE BUILDING 1.2.840.114 350.1.13.10 4.2.7.2.686 [id number] 220 [id number] [facility] 2023-12-05 00:00:00 2023-12-06 08:51:14 Refill Vincenzo Sanches [facility] MED[facility] OFF[facility] BUILDING 1.2.840.114 350.1.13.10 4.2.7.2.686 [id number] [facility] 2023-11-24 00:00:00 2023-12-05 15:56:31 Refill SanchesVincenzo [facility] J[facility] MEDICAL OFFICE BUILDING 1.2.840.114 350.1.13.10 4.2.7.2.686 [id number] 220 [id number] [facility] 2023-11-28 00:00:00 2023-12-05 14:14:01 Refill Val Preston [facility] J[facility] MEDICAL OFFICE BUILDING 1.2.840.114 350.1.13.10 4.2.7.2.686 [id number] 220 [id number] [facility] 2023-11-28 00:00:00 2023-11-28 14:38:59 Refill Florecita Atkins [facility] OFF[facility] BU[facility] 1.2.840.114 350.1.13.10 4.2.7.2.686 [id number] 044 [id number] [facility] 2023-11-07 00:00:00 2023-11-09 08:54:21 Refill Val Preston [facility] MED[facility] OFFICE BUILD[facility] 1.2.840.114 350.1.13.10 4.2.7.2.686 [id number] 220 [id number] [facility] 2023-11-04 00:00:00 2023-11-04 10:01:16 Refill Val Preston [facility] J[facility] MED[facility] OFFICE BUILDING 1.2.840.114 350.1.13.10 4.2.7.2.686 [id number] 220 [id number] [facility] 2023-11-02 00:00:00 2023-11-03 07:45:22 Telephone Florecita Atkins [facility] J[facility] MED[facility] OFFICE BUILDING 1.2.840.114 350.1.13.10 4.2.7.2.686 [id number] [id number] [facility] 2023-11-02 00:00:00 2023-11-02 14:18:03 Refill Val Preston [facility] J[facility] MEDICAL OFFICE BUILDING 1.2.840.114 350.1.13.10 4.2.7.2.686 [id number] 220 [id number] [facility] 2023-11-02 00:00:00 2023-11-02 11:12:16 Refill [facility]arilys Jerez [facility] OFF[facility] BUILD[facility] 1.2.840.114 350.1.13.10 4.2.7.2.686 [id number] 044 [id number] [facility] 2023-10-28 00:00:00 2023-11-01 08:20:17 Refill Amarilys Jerez [facility] OFF[facility] BUILD[facility] 1.2.840.114 350.1.13.10 4.2.7.2.686 [id number] [id number] [facility] 2023-10-26 14:35:36 2023-10-26 23:59:00 Outpatient R AMARILYS JEREZ [facility] [id number] [facility] 2023-10-26 14:30:00 2023-10-26 14:31:48 Office Visit SolitarioRhiannonie 1.2.840.1 36400.1.1 3.104.2.7 .3.038504 .8 [id number] [facility] 2023-10-26 00:00:00 2023-10-26 00:00:00 Travel 1.2.840.1 05229.1.1 3.104.2.7 .3.902805 .8 1.2.840.114 350.1.13.10 4.2.7.3.698 084.8 [id number] [facility] 2023-10-10 00:00:00 2023-10-10 16:41:21 Vincenzo Dean 1.2.840.1 25610.1.1 3.104.2.7 .3.515348 .8 [id number] [facility] 2023-10-07 00:00:00 2023-10-10 09:02:22 Telephone Florecita Atkins 1.2.840.1 89151.1.1 3.104.2.7 .3.741013 .8 [id number] [facility] 2023-10-04 00:00:00 2023-10-04 15:37:19 Telephone Val Preston 1.2.840.1 19592.1.1 3.104.2.7 .3.098434 .8 [id number] [facility] 2023-10-03 15:15:00 2023-10-03 15:47:51 Land Classifier Visit Val Preston Lab, Ang - Db 1.2.840.1 01934.1.1 3.104.2.7 .3.926685 .8 [id number] [facility] 2023-10-03 14:30:00 2023-10-03 15:10:41 Outpatient R VAL PRESTON [facility] [id number] [facility] 2023-10-03 14:30:00 2023-10-03 15:10:41 Office Visit KaryVal B. 1.2.840.1 30422.1.1 3.104.2.7 .3.395995 .8 [id number] [facility] 2023-10-03 00:00:00 2023-10-03 00:00:00 Travel 1.2.840.1 60822.1.1 3.104.2.7 .3.553090 .8 1.2.840.114 350.1.13.10 4.2.7.3.698 084.8 [id number] [facility] 2023-09-28 00:00:00 2023-09-29 12:59:39 Telephone Amarilys Jerez 1.2.840.1 53972.1.1 3.104.2.7 .3.574539 .8 [id number] [facility] 2023-09-23 00:00:00 2023-09-23 08:41:46 Floreciat Montoya 1.2.840.1 83013.1.1 3.104.2.7 .3.921858 .8 [id number] [facility] 2023-09-16 00:00:00 2023-09-16 00:00:00 Florecita Montoya 1.2.840.1 52054.1.1 3.104.2.7 .3.856278 .8 [id number] [facility] 2023-08-29 00:00:00 2023-08-29 07:59:59 Florecita Montoya 1.2.840.1 07019.1.1 3.104.2.7 .3.096392 .8 [id number] [facility] 2023-08-23 00:00:00 2023-08-23 07:21:13 Refill Florecita Atkins 1.2.840.1 95160.1.1 3.104.2.7 .3.858454 .8 [id number] [facility] 2023-08-19 11:00:00 2023-08-19 11:19:59 Outpatient R NINI MENDENHALL [facility] [id number] [facility] 2023-08-19 11:00:00 2023-08-19 11:19:59 Office Visit Nini Mendenhall 1.2.840.1 69569.1.1 3.104.2.7 .3.045582 .8 [id number] [facility] 2023-08-19 00:00:00 2023-08-19 00:00:00 Travel 1.2.840.1 53497.1.1 3.104.2.7 .3.877192 .8 1.2.840.114 350.1.13.10 4.2.7.3.698 084.8 [id number] [facility] 2023-08-18 10:39:15 2023-08-18 10:39:15 Outpatient [facility] [id number] 0425 Scott Dunn 2023-08-15 00:00:00 2023-08-15 11:47:18 Telephone Florecita Atkins 1.2.840.1 34700.1.1 3.104.2.7 .3.813330 .8 [id number] [facility] 2023-08-15 00:00:00 2023-08-15 08:55:57 Telephone Val Preston 1.2.840.1 88400.1.1 3.104.2.7 .3.191375 .8 [id number] [facility] 2023-08-12 11:00:00 2023-08-12 11:00:00 Outpatient Vee SANCHES VINCENZO [facility] [id number] [facility] 2023-08-09 14:00:00 2023-08-09 14:00:00 Outpatient RAUL CLAUDIO [facility] [id number] [facility] 2023-07-28 00:00:00 2023-07-29 07:21:13 Refill Florecita Atkins 1..840.1 93729.1.1 3.104.2.7 .3.038613 .8 [id number] [facility] 2023-07-20 10:30:00 2023-07-20 11:00:00 Office Visit Florecita Atkins [facility] 1..840.114 350.1.13.10 4.2.7.2.686 [id number] [id number] [facility] 2023-07-20 10:30:00 2023-07-20 10:08:25 Outpatient FLORECITA LINCOLN [facility] [id number] [facility] 2023 10:08:57 2023 10:08:57 Outpatient AZAEL [facility] [id number] 0320 Scott Dunn 2023-07-07 10:30:00 2023-07-07 10:30:00 Outpatient FLORECITA LINCOLN [facility] [id number] [facility] 2023-06-21 09:00:00 2023-06-21 09:00:00 Outpatient RAUL CLAUDIO [facility] [id number] [facility] 2023-06-20 00:00:00 2023-06-20 00:00:00 Orders Only Doctor Unassigned, [place] [facility] 1.840.114 350.1.13.10 4.2.7.2.686 [id number] [facility] 2023-06-16 14:58:06 2023-06-16 14:58:06 Outpatient S[facility] [id number] Scott Dunn 2023-06-06 00:00:00 2023-06-06 00:00:00 Refill Vincenzo Sanches [facility] JAYY?[facility] 1.2.840.114 350.1.13.10 4.2.7.2.686 [id number] [facility] 2023-06-05 00:00:00 2023-06-05 00:00:00 Refill Vincenzo Sanches [facility] 1.2.840.114 350.1.13.10 4.2.7.2.686 [id number] [facility] 2023-06-03 00:00:00 2023-06-03 00:00:00 Refill Milly Florecita [facility] JAYY?[facility] 1.2.840.114 350.1.13.10 4.2.7.2.686 [id number] [facility] 2023-05-27 00:00:00 2023-05-27 00:00:00 Refill NewtonEduardo [facility] JAYY?[facility] 1.2.840.114 350.1.13.10 4.2.7.2.686 [id number] [facility] 2023-05-25 10:30:00 2023-05-25 10:30:00 Outpatient FLORECITA [facility] [id number] [facility] 2023-05-12 00:00:00 2023-05-12 00:00:00 Refelkin Atkins Florecita [facility] JAYY?[facility] 1.2.840.114 350.1.13.10 4.2.7.2.686 [id number] [facility] 2023-05-04 13:45:00 2023-05-04 14:00:00 Office Visit ThodilmaFlorecita [facility] JAYY?[facility] 1.114 350.1.13.10 4.2.7.2.686 [id number] [facility] 2023-05-04 13:45:00 2023-05-04 13:44:32 Outpatient R FLORECITA ATKINS [facility] [id number] [facility] 2023-05-04 00:00:00 2023-05-04 00:00:00 Orders Only Doctor Unassigned, [place] [facility] 1.114 350.1.13.10 4.2.7.2.686 [id number] [facility] 2023-04-26 10:00:00 2023-04-26 10:00:00 Outpatient R FLORECITA ATKINS [facility] [id number] [facility] 2023-04-26 00:00:00 2023-04-26 00:00:00 Telephone Florecita Atkins [facility] 1.2114 350.1.13.10 4.2.7.2.686 [id number] [facility] 2023-04-25 00:00:00 2023-04-25 00:00:00 Refill Vincenzo Sanches [facility] 1.2114 350.1.13.10 4.2.7.2.686 [id number] [facility] 2023-04-17 00:00:00 2023-04-17 00:00:00 Refill Tony Feldman [facility] 1.114 350.1.13.10 4.2.7.2.686 [id number] [facility] 2023-04-01 00:00:00 2023-04-01 00:00:00 Orders Only Doctor Unassigned, [place] [facility] 1.2840.114 350.1.13.10 4.2.7.2.686 [id number] [facility] 2023-03-31 00:00:00 2023-03-31 00:00:00 Telephone Florecita Atkins [facility] JAYY?[facility] 1.20.114 350.1.13.10 4.2.7.2.686 [id number] 044 [id number] [facility] 2023-03-25 00:00:00 2023-03-25 00:00:00 Refill Florecita Atkins [facility] JAYY?[facility] MEDICAL OFFICE BUILD[facility] 1.0.114 350.1.13.10 4.2.7.2.686 [id number] 044 [id number] [facility] 2023-03-04 00:00:00 2023-03-04 00:00:00 Refill Vincenzo Sanches [facility] JAYY?[facility] MEDICAL OFFICE BUILDING 1.284.114 350.1.13.10 4.2.7.2.686 [id number] 220 [id number] [facility] 2023-02-28 00:00:00 2023-02-28 00:00:00 Refill Florecita Atkins [facility] JAYY?[facility] MED[facility] OFF[facility] BUILD[facility] 1.840.114 350.1.13.10 4.2.7.2.686 [id number] 044 [id number] [facility] 2023-02-22 00:00:00 2023-02-22 00:00:00 Refill Florecita Atkins [facility] JAYY?[facility] MEDICAL OFFICE BUILDING 1.20.114 350.1.13.10 4.2.7.2.686 [id number] 044 [id number] [facility] 2023-02-21 12:00:00 2023-02-21 12:00:00 Outpatient TONY POTTS TONY FELDMAN [facility] [id number] [facility] 2023-02-21 00:00:00 2023-02-21 00:00:00 Outpatient GC_GCBZW_Ka diyala_S PRIV PRIV [id number] [facility] 2023-02-20 00:00:00 2023-02-20 00:00:00 Outpatient GC_GCBZW_Ka diyala_S PRIV PRIV [id number] [facility] 2023-02-08 00:00:00 2023-02-08 00:00:00 Refill Florecita Atkins [facility] MEDICAL OFFICE BUILDING 1.2.840.114 350.1.13.10 4.2.7.2.686 [id number] 044 [id number] [facility] 2023-01-24 00:00:00 2023-01-24 00:00:00 Refill Eduardo Newton [facility] MEDICAL OFFICE BUILDING 1.2.840.114 350.1.13.10 4.2.7.2.686 [id number] 044 [id number] [facility] 2023-01-12 00:00:00 2023-01-12 00:00:00 Refill Tony Feldman [facility] MEDICAL OFFICE BUILDING 1.2.840.114 350.1.13.10 4.2.7.2.686 [id number] 220 [id number] [facility] 2023-01-12 00:00:00 2023-01-12 00:00:00 Refill Vincenzo Sanches [facility] MEDICAL OFFICE BUILDING 1.2.840.114 350.1.13.10 4.2.7.2.686 [id number] 220 [id number] [facility] 2022-12-30 00:00:00 2022-12-30 00:00:00 Refill Florecita Atkins [facility] JAYY?[facility] MEDICAL OFFICE BUILDING 1.84.114 350.1.13.10 4.2.7.2.686 [id number] 044 [id number] [facility] 2022-12-28 00:00:00 2022-12-28 00:00:00 Telephone Florecita Atkins [facility] JAYY?[facility] MEDICAL OFFICE BUILDING 1.84.114 350.1.13.10 4.2.7.2.686 [id number] 044 [id number] [facility] 2022-12-22 00:00:00 2022-12-22 00:00:00 Telephone Florecita Atknis [facility] JAYY?[facility] MEDICAL OFFICE BUILDING 1.84.114 350.1.13.10 4.2.7.2.686 [id number] 044 [id number] [facility] 2022-12-22 00:00:00 2022-12-22 00:00:00 (TEL) [facility] [id number] [facility] 2022-11-22 13:30:00 2022-11-22 13:30:00 Outpatient TONY POTTS YU [facility] [id number] [facility] 2022-11-18 00:00:00 2022-11-18 00:00:00 Telephone Florecita Atkins [facility] JAYY?[facility] MEDICAL OFFICE BUILDING 1.84.114 350.1.13.10 4.2.7.2.686 [id number] 044 [id number] [facility] 2022-11-17 00:00:00 2022-11-17 00:00:00 Tony Lara [facility] JAYY?[facility] MEDICAL OFFICE BUILDING 1.84.114 350.1.13.10 4.2.7.2.686 [id number] 220 [id number] [facility] 2022-11-05 00:00:00 2022-11-05 00:00:00 [facility] MEDICAL OFF[facility] BUILDING 1.2.840.114 350.1.13.10 4.2.7.2.686 [id number] 044 [id number] [facility] 2022-10-30 00:00:00 2022-10-30 00:00:00 Refill Florecita Atkins [facility] JAYY?[facility] MEDICAL OFFICE BUILDING 1.2840.114 350.1.13.10 4.2.7.2.686 [id number] 044 [id number] [facility] 2022-10-13 00:00:00 2022-10-13 00:00:00 Refill Florecita Atkins [facility] JAYY?[facility] MEDICAL OFF[facility] BUILDING 1.840.114 350.1.13.10 4.2.7.2.686 [id number] 044 [id number] [facility] 2022-10-13 00:00:00 2022-10-13 00:00:00 Refill Florecita Atkins [facility] JAYY?[facility] MEDICAL OFFICE BUILDING 1.840.114 350.1.13.10 4.2.7.2.686 [id number] 220 [id number] [facility] 2022-09-29 00:00:00 2022-09-29 00:00:00 Refill Princess Lizarraga [facility] JAYY?[facility] MEDICAL OFFICE BUILDING 1.2840.114 350.1.13.10 4.2.7.2.686 [id number] 220 [id number] [facility] 2022-09-23 00:00:00 2022-09-23 00:00:00 Refill Eduardo Newton [facility] JAYY?[facility] MEDICAL OFFICE BUILDING 1.2.840.114 350.1.13.10 4.2.7.2.686 [id number] 044 [id number] [facility] 2022-09-06 00:00:00 2022-09-06 00:00:00 Orders Only Doctor Unassigned, [place] [facility] 1.2.840.114 350.1.13.10 4.2.7.2.686 [id number] [id number] [facility] 2022-09-04 00:00:00 2022-09-04 00:00:00 Refill Florecita Atkins [facility] JAYY?[facility] MEDICAL OFFICE BUILDING 1.2840.114 350.1.13.10 4.2.7.2.686 [id number] 044 [id number] [facility] 2022-09-03 00:00:00 2022-09-03 00:00:00 Telephone Florecita Atkins [facility] JAYY?[facility] MEDICAL OFFICE BUILDING 1.2840.114 350.1.13.10 4.2.7.2.686 [id number] 044 [id number] [facility] 2022-09-01 00:00:00 2022-09-01 00:00:00 Refill Florecita Atkins [facility] JAYY?[facility] MEDICAL OFFICE BUILDING 1.2840.114 350.1.13.10 4.2.7.2.686 [id number] 044 [id number] [facility] 2022-09-01 00:00:00 2022-09-01 00:00:00 Refill Florecita Atkins [facility] JAYY?[facility] MEDICAL OFFICE BUILDING 1.2.840.114 350.1.13.10 4.2.7.2.686 [id number] 044 [id number] [facility] 2022-09-01 00:00:00 2022-09-01 00:00:00 Refill Florecita Atkins [facility] JAYY?[facility] 1.2840.114 350.1.13.10 4.2.7.2.686 [id number] 044 [id number] [facility] 2022-09-01 00:00:00 2022-09-01 00:00:00 Telephone Florecita Atkins [facility] JAYY?[facility] 1.2840.114 350.1.13.10 4.2.7.2.686 [id number] 044 [id number] [facility] 2022-08-31 00:00:00 2022-08-31 00:00:00 Refill Florecita Atkins [facility] JAYY?[facility] 1.2840.114 350.1.13.10 4.2.7.2.686 [id number] 044 [id number] [facility] 2022-08-30 00:00:00 2022-08-30 00:00:00 Refill Florecita Atkins [facility] JAYY?[facility]ILD[facility] 1.2840.114 350.1.13.10 4.2.7.2.686 [id number] 044 [id number] [facility] 2022-08-29 00:00:00 2022-08-29 00:00:00 Refill Florecita Atkins [facility] JAYY?[facility] 1.2840.114 350.1.13.10 4.2.7.2.686 [id number] 044 [id number] [facility] 2022-08-23 00:00:00 2022-08-23 00:00:00 Refill Tony Feldman [facility] JAYY?[facility] MED[facility] OFF[facility] BUILD[facility] 1.2840.114 350.1.13.10 4.2.7.2.686 [id number] 220 [id number] [facility] 2022-08-20 00:00:00 2022-08-20 00:00:00 Telephone oTny Feldman [facility] JAYY?[facility] MEDICAL OFFICE BUILDING 1.2840.114 350.1.13.10 4.2.7.2.686 [id number] 220 [id number] [facility] 2022-08-19 00:00:00 2022-08-19 00:00:00 Refill Florecita Atkins [facility] JAYY?[facility] MEDICAL OFFICE BUILDING 1.2.840.114 350.1.13.10 4.2.7.2.686 [id number] 044 [id number] [facility] 2022-08-18 00:00:00 2022-08-18 00:00:00 Refill Florecita Atkins [facility] JAYY?[facility] MEDICAL OFFICE BUILDING 1.2840.114 350.1.13.10 4.2.7.2.686 [id number] 044 [id number] [facility] 2022-08-16 00:00:00 2022-08-16 00:00:00 Telephone Tony Feldman [facility] JAYY?[facility] MEDICAL OFFICE BUILDING 1.2840.114 350.1.13.10 4.2.7.2.686 [id number] 220 [id number] [facility] 2022-08-13 00:00:00 2022-08-13 00:00:00 Refill Vincenzo [facility] MEDICAL OFFICE BUILDING 1.2840.114 350.1.13.10 4.2.7.2.686 [id number] 220 [id number] [facility] 2022-08-12 00:00:00 2022-08-12 00:00:00 Refill Vincenzo Sanches [facility] 1.2.840.114 350.1.13.10 4.2.7.2.686 [id number] 220 [id number] [facility] 2022-08-12 00:00:00 2022-08-12 00:00:00 Telephone Tony Feldman [facility] JAYY?[facility] MEDICAL OFFICE BUILDING 1.84.114 350.1.13.10 4.2.7.2.686 [id number] 220 [id number] [facility] 2022-08-03 00:00:00 2022-08-03 00:00:00 Refill Florecita Atkins [facility] JAYY?[facility] 1.114 350.1.13.10 4.2.7.2.686 [id number] 044 [id number] [facility] 2022-08-03 00:00:00 2022-08-03 00:00:00 Refill Tony Feldman [facility] JAYY?[facility] MEDICAL OFFICE BUILDING 1..114 350.1.13.10 4.2.7.2.686 [id number] 220 [id number] [facility] 2022-08-02 10:21:39 2022-08-02 23:59:00 Outpatient R FLORECITA ATKINS [facility] [id number] [facility] 2022-08-02 10:15:00 2022-08-02 10:30:00 Office Visit Milly Florecita [facility] JAYY?[facility] MEDICAL OFFICE BUILDING 1.84.114 350.1.13.10 4.2.7.2.686 [id number] 044 [id number] [facility] 2022-08-02 00:00:00 2022-08-02 00:00:00 Orders Only Doctor Unassigned, [place] [facility] 1.114 350.1.13.10 4.2.7.2.686 [id number] [id number] [facility] 2022-08-02 00:00:00 2022-08-02 00:00:00 Telephone Florecita Atkins [facility] JAYY?[facility] MEDICAL OFFICE BUILDING 1..114 350.1.13.10 4.2.7.2.686 [id number] 044 [id number] [facility] 2022-07-25 00:00:00 2022-07-25 00:00:00 Refelkin LoraineFlorecita taylor [facility] JAYY?[facility]ILD[facility] 1.84.114 350.1.13.10 4.2.7.2.686 [id number] 044 [id number] [facility] 2022 15:00:00 2022 15:00:00 Outpatient FLORECITA LINCOLN [facility] [id number] [facility] 2022-07-12 13:45:00 2022-07-12 13:45:00 Outpatient FLORECITA LINCOLN [facility] [id number] [facility] 2022-06-27 00:00:00 2022-06-27 00:00:00 Refelkin LoraineFlorecita taylor [facility] JAYY?[facility]ILD[facility] 1.840.114 350.1.13.10 4.2.7.2.686 [id number] 044 [id number] [facility] 2022-06-03 00:00:00 2022-06-03 00:00:00 RefFlorecita Peace [facility] JAYY?[facility] MEDICAL OFFICE BUILDING 1.840.114 350.1.13.10 4.2.7.2.686 [id number] 044 [id number] [facility] 2022-06-03 00:00:00 2022-06-03 00:00:00 Telephone [facility]man [facility] MEDICAL OFFICE BUILDING 1.84.114 350.1.13.10 4.2.7.2.686 [id number] 220 [id number] [facility] 2022-06-03 00:00:00 2022-06-03 00:00:00 Princess Rivera [facility] JAYY?[facility] 1.2840.114 350.1.13.10 4.2.7.2.686 [id number] 220 [id number] [facility] 2022-05-19 00:00:00 2022-05-19 00:00:00 Telephone ThoFlorecita bermeo [facility] JAYY?[facility] MEDICAL OFFICE BUILDING 1.2840.114 350.1.13.10 4.2.7.2.686 [id number] 044 [id number] [facility] 2022-05-17 00:00:00 2022-05-17 00:00:00 [facility]cita [facility] MEDICAL OFFICE BUILDING 1.2840.114 350.1.13.10 4.2.7.2.686 [id number] 044 [id number] [facility] 2022-05-17 00:00:00 2022-05-17 00:00:00 Orders Only Doctor Unassigned, [place] [facility] 1.840.114 350.1.13.10 4.2.7.2.686 [id number] [id number] [facility] 2022-05-15 00:00:00 2022-05-15 00:00:00 Refill Milly Florecita [facility] JAYY?[facility] MEDICAL OFFICE BUILDING 1.84.114 350.1.13.10 4.2.7.2.686 [id number] 044 [id number] [facility] 2022-05-07 00:00:00 2022-05-07 00:00:00 Refill Florecita Atkins [facility] JAYY?[facility] MEDICAL OFFICE BUILDING 1.284.114 350.1.13.10 4.2.7.2.686 [id number] 044 [id number] [facility] 2022-05-03 00:00:00 2022-05-03 00:00:00 [facility]ill [facility] MEDICAL OFFICE BUILDING 1.2840.114 350.1.13.10 4.2.7.2.686 [id number] 220 [id number] [facility] 2022-05-03 00:00:00 2022-05-03 00:00:00 Orders Only Doctor Unassigned, [place] [facility] 1.2840.114 350.1.13.10 4.2.7.2.686 [id number] [id number] [facility] 2022-04-22 00:00:00 2022-04-22 00:00:00 Telephone Florecita Atkins [facility] MEDICAL OFFICE BUILDING 1.2840.114 350.1.13.10 4.2.7.2.686 [id number] 044 [id number] [facility] 2022-04-16 00:00:00 2022-04-16 00:00:00 Telephone AshelyTony [facility] MEDICAL OFFICE BUILDING 1.2840.114 350.1.13.10 4.2.7.2.686 [id number] 220 [id number] [facility] 2022-04-12 00:00:00 2022-04-12 00:00:00 Telephone Bernadine Callahan 1.840.114 350.1.13.10 4.2.7.2.686 [id number] 086 [id number] [facility] 2022-04-06 00:00:00 2022-04-06 00:00:00 Orders Only Doctor Unassigned, [place] [facility] 1.2840.114 350.1.13.10 4.2.7.2.686 [id number] 009 [id number] [facility] 2022-04-05 00:00:00 2022-04-05 00:00:00 Telephone [place] [facility] OFF[facility] BUILD[facility] 1.2840.114 350.1.13.10 4.2.7.2.686 [id number] 220 [id number] [facility] 2022-03-31 13:15:00 2022-03-31 13:30:00 Office Visit Florecita Atkins [facility] 1.2840.114 350.1.13.10 4.2.7.2.686 [id number] 044 [id number] [facility] 2022-03-31 13:15:00 2022-03-31 13:15:00 Outpatient R [facility] [id number] [facility] 2022-03-25 00:00:00 2022-03-25 00:00:00 Telephone Milly [facility] JAYY?[facility] 1.2840.114 350.1.13.10 4.2.7.2.686 [id number] 044 [id number] [facility] 2022-03-24 00:00:00 2022-03-24 00:00:00 Telephone Milly [facility] JAYY?[facility] 1.284.114 350.1.13.10 4.2.7.2.686 [id number] 044 [id number] [facility] 2022-03-23 00:00:00 2022-03-23 00:00:00 Telephone Jaycee Lizarraganna [facility] 1.2840.114 350.1.13.10 4.2.7.2.686 [id number] 220 [id number] [facility] 2022-03-19 00:00:00 2022-03-19 00:00:00 Telephone [facility] 1.2840.114 350.1.13.10 4.2.7.2.686 [id number] 044 [id number] [facility] 2022-03-17 00:00:00 2022-03-17 00:00:00 Telephone Florecita Atkins [facility] JAYY?[facility] 1.2840.114 350.1.13.10 4.2.7.2.686 [id number] 044 [id number] [facility] 2022-03-17 00:00:00 2022-03-17 00:00:00 Orders Only Doctor Unassigned, [place] [facility] 1.2840.114 350.1.13.10 4.2.7.2.686 [id number] [id number] [facility] 2022-03-15 00:00:00 2022-03-15 00:00:00 Refill Milly [facility] MEDICAL OFFICE BUILDING 1.840.114 350.1.13.10 4.2.7.2.686 [id number] 044 [id number] [facility] 2022-03-11 00:00:00 2022-03-11 00:00:00 Orders Only Doctor Unassigned, [place] [facility] 1.2840.114 350.1.13.10 4.2.7.2.686 [id number] 009 [id number] [facility] 2022-03-10 00:00:00 2022-03-10 00:00:00 Telephone Florecita Atkins [facility] JAYY?[facility] MEDICAL OFFICE BUILDING 1.2840.114 350.1.13.10 4.2.7.2.686 [id number] 044 [id number] [facility] 2022-03-08 00:00:00 2022-03-08 00:00:00 Telephone Florecita Atkins [facility] JAYY?[facility] MEDICAL OFFICE BUILDING 1.2840.114 350.1.13.10 4.2.7.2.686 [id number] 044 [id number] [facility] 2022-03-05 00:00:00 2022-03-05 00:00:00 Refill Florecita Atkins [facility] 1.2.840.114 350.1.13.10 4.2.7.2.686 [id number] 044 [id number] [facility] 2022-03-03 00:00:00 2022-03-03 00:00:00 Refill [place] [facility] 1..840.114 350.1.13.10 4.2.7.2.686 [id number] 220 [id number] [facility] 2022-02-26 13:30:00 2022-02-26 14:03:53 Outpatient R [facility] [id number] [facility] 2022-02-26 13:30:00 2022-02-26 14:03:53 Office Visit [place] [facility] MEDICAL OFF[facility] BUILD[facility] 1..840.114 350.1.13.10 4.2.7.2.686 [id number] 220 [id number] [facility] 2022-02-11 00:00:00 2022-02-11 00:00:00 Outpatient Visit [id number] 2022-02-03 00:00:00 2022-02-03 00:00:00 Refill Florceita Atkins [facility] MEDICAL OFFICE BUILD[facility] 1.2.840.114 350.1.13.10 4.2.7.2.686 [id number] 044 [id number] [facility] 2022-01-28 00:00:00 2022-01-28 00:00:00 Orders Only Doctor Unassigned, [place] [facility] 1.114 350.1.13.10 4.2.7.2.686 [id number] [id number] [facility] 2022-01-24 00:00:00 2022-01-24 00:00:00 Refill Lorainemaggie [facility] JAYY?[facility] 1.114 350.1.13.10 4.2.7.2.686 [id number] 044 [id number] [facility] 2022-01-18 00:00:00 2022-01-18 00:00:00 Telephone [place] [facility] 1.114 350.1.13.10 4.2.7.2.686 [id number] 220 [id number] [facility] 2022-01-17 00:00:00 2022-01-17 00:00:00 Refill Lorainemaggie [facility] 1.114 350.1.13.10 4.2.7.2.686 [id number] 044 [id number] [facility] 2022-01-15 14:30:00 2022-01-15 14:30:00 Outpatient [facility]ESS MONTIEL [facility] [id number] [facility] 2022-01-14 00:00:00 2022-01-14 00:00:00 Telephone Florecita Atkins [facility] JAYY?[facility] 1.114 350.1.13.10 4.2.7.2.686 [id number] [id number] [facility] 2022-01-13 00:00:00 2022-01-13 00:00:00 Refill Lorainemaggie [facility] JAYY?[facility] 1.2.840.114 350.1.13.10 4.2.7.2.686 [id number] [facility] 2022-01-12 15:15:00 2022-01-12 15:17:01 Outpatient R THODILMAFLORECITA [facility] [id number] [facility] 2022-01-12 15:15:00 2022-01-12 15:17:01 [facility] 1.284.114 350.1.13.10 4.2.7.2.686 [id number] [facility] 2022-01-12 00:00:00 2022-01-12 00:00:00 Orders Only Doctor Unassigned, [place] [facility] 1.840.114 350.1.13.10 4.2.7.2.686 [id number] [facility] 2022-01-09 00:00:00 2022-01-09 00:00:00 [facility] 1.84.114 350.1.13.10 4.2.7.2.686 [id number] [facility] 2022-01-06 00:00:00 2022-01-06 00:00:00 Telephone [place] [facility] 1.284.114 350.1.13.10 4.2.7.2.686 [id number] [facility] 2021-12-30 00:00:00 2021-12-30 00:00:00 Refill Florecita Atkins [facility] JAYY?[facility] 1.284.114 350.1.13.10 4.2.7.2.686 [id number] [facility] 2021-12-29 13:30:00 2021-12-29 13:30:00 Outpatient R FLORECITA ATKINS [facility] [id number] [facility] 2021-12-25 00:00:00 2021-12-25 00:00:00 Telephone Milly Florecita [facility] JAYY?[facility] 1.2.840.114 350.1.13.10 4.2.7.2.686 [id number] [facility] 2021-12-12 00:00:00 2021-12-12 00:00:00 Refelkin LoraineFlorecita taylor [facility] JAYY?[facility] 1.2.840.114 350.1.13.10 4.2.7.2.686 [id number] [facility] 2021-11-23 00:00:00 2021-11-23 00:00:00 Telephone Joselito Replaced by [facility] JAYY?[facility] 1..840.114 350.1.13.10 4.2.7.2.686 [id number] 220 [id number] [facility] 2021-11-17 00:00:00 2021-11-17 00:00:00 Telephone Joselito Replaced by [facility] JAYY?[facility] 1..840.114 350.1.13.10 4.2.7.2.686 [id number] [facility] 2021-11-16 00:00:00 2021-11-16 00:00:00 Telephone Joselito Replaced by [facility] JAYY?[facility] 1.2.840.114 350.1.13.10 4.2.7.2.686 [id number] 220 [id number] [facility] 2021-11-14 00:00:00 2021-11-14 00:00:00 Bob Atkins [facility] 1.2840.114 350.1.13.10 4.2.7.2.686 [id number] 044 [id number] [facility] 2021-11-12 00:00:00 2021-11-12 00:00:00 Orders Only Doctor Unassigned, [place] [facility] 1.20.114 350.1.13.10 4.2.7.2.686 [id number] [facility] 2021-11-01 00:00:00 2021-11-01 00:00:00 Bob Atkins [facility] 1.284114 350.1.13.10 4.2.7.2.686 [id number] [facility] 2021-10-31 00:00:00 2021-10-31 00:00:00 [facility] 1.84.114 350.1.13.10 4.2.7.2.686 [id number] [facility] 2021-10-29 00:00:00 2021-10-29 00:00:00 Bob Lorainegonzalodilma [facility] 1.84.114 350.1.13.10 4.2.7.2.686 [id number] 044 [id number] [facility] 2021-10-27 00:00:00 2021-10-27 00:00:00 [facility] 1.284.114 350.1.13.10 4.2.7.2.686 [id number] 044 [id number] [facility] 2021-10-22 00:00:00 2021-10-22 00:00:00 Refelkin Atkins [facility] JAYY?[facility] MEDICAL OFFICE BUILDING 1.84114 350.1.13.10 4.2.7.2.686 [id number] 044 [id number] [facility] 2021-10-21 00:00:00 2021-10-21 00:00:00 Refelkin Yee Replaced by [facility] JAYY?[facility] MED[facility] OFFICE BUILDING 1.114 350.1.13.10 4.2.7.2.686 [id number] 220 [id number] [facility] 2021-10-19 00:00:00 2021-10-19 00:00:00 Bob Atkins [facility] JAYY?[facility] MEDICAL OFFICE BUILDING 1.84.114 350.1.13.10 4.2.7.2.686 [id number] 044 [id number] [facility] 2021-10-05 14:30:00 2021-10-05 14:30:00 Outpatient R JOSELITO [facility] [id number] [facility] 2021-10-05 14:30:00 2021-10-05 14:30:00 Outpatient R JOSELITO [facility] [id number] [facility] 2021-09-28 00:00:00 2021-09-28 00:00:00 Orders Only Doctor Unassigned, [place] [facility] 1.114 350.1.13.10 4.2.7.2.686 [id number] [id number] [facility] 2021-09-27 00:00:00 2021-09-27 00:00:00 Refelkin Yee Replaced by [facility] JAYY?[facility] OFF[facility] BUILDING 1.84.114 350.1.13.10 4.2.7.2.686 [id number] 220 [id number] [facility] 2021-09-21 00:00:00 2021-09-21 00:00:00 Refill Florecita Atkins [facility] JAYY?[facility] OFFICE BUILDING 1.2.840.114 350.1.13.10 4.2.7.2.686 [id number] 044 [id number] [facility] 2021-09-10 00:00:00 2021-09-10 00:00:00 Orders Only Doctor Unassigned, [place] [facility] 1.2.840.114 350.1.13.10 4.2.7.2.686 [id number] 009 [id number] [facility] 2021-09-08 00:00:00 2021-09-08 00:00:00 Refill Florecita Atkins [facility] JAYY?[facility] OFF[facility] BUILDING 1.2.840.114 350.1.13.10 4.2.7.2.686 [id number] 044 [id number] [facility] 2021-09-08 00:00:00 2021-09-08 00:00:00 Refill Joselito Replaced by [facility] JAYY?[facility] MEDICAL OFFICE BUILDING 1.2.840.114 350.1.13.10 4.2.7.2.686 [id number] 220 [id number] [facility] 2021-09-08 00:00:00 2021-09-08 00:00:00 Telephone Joselito Replaced by [facility] JAYY?[facility] 1.2.840.114 350.1.13.10 4.2.7.2.686 [id number] 220 [id number] [facility] 2021-08-31 00:00:00 2021-08-31 00:00:00 Telephone [facility] OFF[facility] BU[facility] 1.2.840.114 350.1.13.10 4.2.7.2.686 [id number] 220 [id number] [facility] 2021-08-25 00:00:00 2021-08-25 00:00:00 Telephone Florecita Atkins [facility] JAYY?[facility] 1.2840.114 350.1.13.10 4.2.7.2.686 [id number] 044 [id number] [facility] 2021-08-24 00:00:00 2021-08-24 00:00:00 Refill Florecita Atkins [facility] JAYY?[facility] OFF[facility] BUILD[facility] 1.2840.114 350.1.13.10 4.2.7.2.686 [id number] 044 [id number] [facility] 2021-08-23 00:00:00 2021-08-23 00:00:00 Refill Florecita Atkins [facility] AJYY?[facility] MEDICAL OFFICE BUILDING 1.0.114 350.1.13.10 4.2.7.2.686 [id number] 044 [id number] [facility] 2021-08-18 00:00:00 2021-08-18 00:00:00 Telephone Joselito Replaced by [facility] JAYY?[facility] OFF[facility] BUILD[facility] 1.2840.114 350.1.13.10 4.2.7.2.686 [id number] 220 [id number] [facility] 2021-08-18 00:00:00 2021-08-18 00:00:00 Telephone [place] [facility] 1.2840.114 350.1.13.10 4.2.7.2.686 [id number] 220 [id number] [facility] 2021-08-18 00:00:00 2021-08-18 00:00:00 Orders Only Doctor Unassigned, [place] [facility] 1.2840.114 350.1.13.10 4.2.7.2.686 [id number] [id number] [facility] 2021-08-02 00:00:00 2021-08-02 00:00:00 Refill Florecita Atkins [facility] NAL BUILDING 1.2840.114 350.1.13.10 4.2.7.2.686 [id number] 044 [id number] [facility] 2021-07-30 00:00:00 2021-07-30 00:00:00 Refill Florecita Atkins [facility] OFFICE BUILDING ONE 1.20.114 350.1.13.10 4.2.7.2.686 [id number] 044 [id number] [facility] 2021-07-29 00:00:00 2021-07-29 00:00:00 RefFlorecita Peace [facility] JAYY?[facility] 1.2840.114 350.1.13.10 4.2.7.2.686 [id number] 044 [id number] [facility] 2021-07-29 00:00:00 2021-07-29 00:00:00 Telephone Joselito Replaced by [facility] JAYY?[facility] 1.2840.114 350.1.13.10 4.2.7.2.686 [id number] 220 [id number] [facility] 2021-07-27 00:00:00 2021-07-27 00:00:00 Telephone Joselito Replaced by [facility] JAYY?[facility] 1.2840.114 350.1.13.10 4.2.7.2.686 [id number] 220 [id number] [facility] 2021-07-23 00:00:00 2021-07-23 00:00:00 Refill Joselito Replaced by [facility] JAYY?[facility] 1.2840.114 350.1.13.10 4.2.7.2.686 [id number] 220 [id number] [facility] 2021-07-22 00:00:00 2021-07-22 00:00:00 Refill Joselito Replaced by [facility] JAYY?[facility] 1.840.114 350.1.13.10 4.2.7.2.686 [id number] 220 [id number] [facility] 2021-07-22 00:00:00 2021-07-22 00:00:00 Refill Joselito Replaced by [facility] JAYY?[facility] OFF[facility] BUILD[facility] 1.84.114 350.1.13.10 4.2.7.2.686 [id number] 220 [id number] [facility] 2021 00:00:00 2021 00:00:00 [facility] BUILD[facility] 1.84.114 350.1.13.10 4.2.7.2.686 [id number] 220 [id number] [facility] 2021-07-06 14:00:00 2021-07-06 14:00:00 Outpatient FLORECITA LINCOLN [facility] [id number] [facility] 2021-07-06 00:00:00 2021-07-06 00:00:00 Letter (Out) Doctor Unassigned, [place] [facility] 1.84.114 350.1.13.10 4.2.7.2.686 [id number] 044 [id number] [facility] 2021-07-02 00:00:00 2021-07-02 00:00:00 RefFlorecita Peace [facility] 1.84.114 350.1.13.10 4.2.7.2.686 [id number] [id number] [facility] 2021-06-19 11:30:00 2021-06-19 11:30:00 Outpatient R FLORECITA ATKINS [facility] [id number] [facility] 2021-05-24 00:00:00 2021-05-24 00:00:00 Telephone Javier Dillon [facility] 1..840.114 350.1.13.10 4.2.7.2.686 [id number] [facility] 2021-05-23 13:00:00 2021-05-23 13:32:55 Outpatient R AMIRA BALBUENA [facility] [id number] [facility] 2021-05-23 13:00:00 2021-05-23 13:20:00 Urgent Care [facility] 1..840.114 350.1.13.10 4.2.7.2.686 [id number] [facility] 2021-05-22 17:00:00 2021-05-22 17:00:00 Outpatient R [facility] [id number] [facility] 2021-05-06 00:00:00 2021-05-06 00:00:00 Bob Baronmaggie Flore[facility]ita [facility] OFFICE BUILDING ONE 1..840.114 350.1.13.10 4.2.7.2.686 [id number] [id number] [facility] 2021-05-05 11:30:00 2021-05-05 11:30:00 Outpatient R PRINCESS LIZARRAGA [facility] [id number] [facility] 2021-05-04 00:00:00 2021-05-04 00:00:00 Telephone Princess Lizarraga [facility] BUILDING 1..840.114 350.1.13.10 4.2.7.2.686 [id number] 220 [id number] [facility] 2021-04-03 00:00:00 2021-04-03 00:00:00 Telephone Joselito Replaced by [facility] JAYY?[facility] 1..840.114 350.1.13.10 4.2.7.2.686 [id number] 220 [id number] [facility] 2021-03-16 13:00:00 2021-03-16 14:14:20 Outpatient R JOSELITO [facility] [id number] [facility] 2021-03-16 12:59:42 2021-03-16 13:29:42 Office Visit Joselito Replaced by [facility] JAYY?[facility] 1.840.114 350.1.13.10 4.2.7.2.686 [id number] 220 [id number] [facility] 2021-03-16 13:00:00 2021-03-16 13:00:00 Outpatient R JOSELITO [facility] [id number] [facility] 2021-03-16 00:00:00 2021-03-16 00:00:00 Orders Only Doctor Unassigned, [place] [facility] 1.84.114 350.1.13.10 4.2.7.2.686 [id number] [id number] [facility] 2021-03-10 00:00:00 2021-03-10 00:00:00 [facility] 1..840.114 350.1.13.10 4.2.7.2.686 [id number] 220 [id number] [facility] 2021-03-05 00:00:00 2021-03-05 00:00:00 Telephone Joselito Replaced by [facility] JAYY?[facility] 1..840.114 350.1.13.10 4.2.7.2.686 [id number] 220 [id number] [facility] 2021-03-04 00:00:00 2021-03-04 00:00:00 Telephone Joselito [facility] NAL BUILDING 1.84.114 350.1.13.10 4.2.7.2.686 [id number] 220 [id number] [facility] 2021-02-16 15:21:19 2021-02-16 15:36:19 Land Classifier Visit Lab, Renzo Yee [facility] Office Building 1.84.114 350.1.13.10 4.2.7.2.686 [id number] [facility] 2021-02-16 14:17:09 2021-02-16 15:18:07 Office Visit Joselito [facility] Medical Office Building 1..114 350.1.13.10 4.2.7.2.686 [id number] 220 [id number] [facility] 2021-02-16 14:00:00 2021-02-16 15:18:07 Outpatient R JOSELITO [facility] [id number] [facility] 2021-02-16 00:00:00 2021-02-16 00:00:00 Orders Only Doctor Unassigned, [place] [facility] 1..114 350.1.13.10 4.2.7.2.686 [id number] [id number] [facility] 2021-02-12 00:00:00 2021-02-12 00:00:00 Telephone [facility] 1.114 350.1.13.10 4.2.7.2.686 [id number] 220 [id number] [facility] 2021-02-09 00:00:00 2021-02-09 00:00:00 [facility]ill [facility] 1.2840.114 350.1.13.10 4.2.7.2.686 [id number] 220 [id number] [facility] 2021-02-06 00:00:00 2021-02-06 00:00:00 Telephone Joselito [facility] 1.2840.114 350.1.13.10 4.2.7.2.686 [id number] 220 [id number] [facility] 2021-01-30 00:00:00 2021-01-30 00:00:00 Telephone [facility] 1.2840.114 350.1.13.10 4.2.7.2.686 [id number] [id number] [facility] 2021-01-30 00:00:00 2021-01-30 00:00:00 Orders Only Doctor Unassigned, [place] [facility] 1.2.840.114 350.1.13.10 4.2.7.2.686 [id number] [id number] [facility] 2021-01-28 00:00:00 2021-01-28 00:00:00 Telephone Tika Martinez [facility] 1.2840.114 350.1.13.10 4.2.7.2.686 [id number] [facility] 2021-01-26 09:30:00 2021-01-26 09:30:00 Outpatient R JOSELITO [facility] [id number] [facility] 2021-01-26 09:30:00 2021-01-26 09:30:00 Outpatient R JOSELITO [facility] [id number] [facility] 2021-01-26 09:30:00 2021-01-26 09:30:00 Outpatient Vee YEE [facility] [id number] [facility] 2021-01-23 00:00:00 2021-01-23 00:00:00 Telephone Florecita Atkins [facility] Office Building 1..840.114 350.1.13.10 4.2.7.2.686 [id number] [facility] 2021-01-19 00:00:00 2021-01-19 00:00:00 [facility] 1.840.114 350.1.13.10 4.2.7.2.686 [id number] 220 [id number] [facility] 2021-01-15 00:00:00 2021-01-15 00:00:00 [facility] 1.840.114 350.1.13.10 4.2.7.2.686 [id number] 220 [id number] [facility] 2020-12-24 08:04:37 2020-12-24 10:25:17 Office Visit Florecita Atkins [facility] Office Building 1..840.114 350.1.13.10 4.2.7.2.686 [id number] [id number] [facility] 2020-12-24 08:00:00 2020-12-24 08:00:00 Outpatient R LORAINEMAGGIEFLORECITA [facility] [id number] [facility] 2020-12-17 00:00:00 2020-12-17 00:00:00 Refill Milly [facility] Medical Office Building 1..840.114 350.1.13.10 4.2.7.2.686 [id number] [id number] [facility] 2020-12-17 00:00:00 2020-12-17 00:00:00 Telephone Joselito [facility] Office Building 1.2.840.114 350.1.13.10 4.2.7.2.686 [id number] 220 [id number] [facility] 2020-12-16 13:00:00 2020-12-16 14:14:34 Outpatient FLORECITA LINCOLN [facility] [id number] [facility] 2020-12-16 11:36:26 2020-12-16 11:51:26 Telemedici ne Visit Milly [facility] Office Building 1.2.840.114 350.1.13.10 4.2.7.2.686 [id number] 044 [id number] [facility] 2020-12-16 00:00:00 2020-12-16 00:00:00 Refill Florecita Atkins [facility] Building 1..840.114 350.1.13.10 4.2.7.2.686 [id number] [id number] [facility] 2020-12-12 00:00:00 2020-12-12 00:00:00 Refill Joselito [facility] Medical Office Building 1..840.114 350.1.13.10 4.2.7.2.686 [id number] 220 [id number] [facility] 2020-12-12 00:00:00 2020-12-12 00:00:00 Orders Only Doctor Unassigned, [place] [facility] 1.840.114 350.1.13.10 4.2.7.2.686 [id number] [id number] [facility] 2020-12-08 13:15:00 2020-12-08 13:15:00 Outpatient FLORECITA LINCOLN [facility] [id number] [facility] 2020-12-08 13:15:00 2020-12-08 13:15:00 Outpatient FLORECITA LINCOLN [facility] [id number] [facility] 2020-11-24 13:00:00 2020-11-24 13:00:00 Outpatient MODESTO DAVIES [facility] [id number] [facility] 2020-11-24 13:00:00 2020-11-24 13:00:00 Outpatient Vee YEE [facility] [id number] [facility] 2020-10-03 00:00:00 2020-10-03 00:00:00 Bob Atkins [facility] Office Building One 1..840.114 350.1.13.10 4.2.7.2.686 [id number] 044 [id number] 2020-09-24 00:00:00 2020-09-24 00:00:00 Orders Only Doctor Unassigned, [place] [facility] 1.2840.114 350.1.13.10 4.2.7.2.686 [id number] [id number] 2020-09-17 00:00:00 2020-09-17 00:00:00 Bob Atkins [facility] Office Building One 1..840.114 350.1.13.10 4.2.7.2.686 [id number] 044 [id number] 2020-09-14 00:00:00 2020-09-14 00:00:00 Bob Atkins [facility] Building 1..840.114 350.1.13.10 4.2.7.2.686 [id number] 044 [id number] 2020-09-04 09:00:00 2020-09-04 09:00:00 Outpatient FLORECITA LINCOLN [facility] [id number] [facility] 2020-09-04 07:01:14 2020-09-04 07:16:14 Telemedici ne Visit Florecita Atkins [facility] Office Building One 1..840.114 350.1.13.10 4.2.7.2.686 [id number] 2020-08-26 11:15:00 2020-08-26 11:15:00 Outpatient FLORECITA LINCOLN [facility] [id number] [facility] 2020-08-26 11:15:00 2020-08-26 11:15:00 Outpatient FLORECITA LINCOLN [facility] [id number] [facility] 2020-08-14 00:00:00 2020-08-14 00:00:00 Telephone Team, [facility] 1..840.114 350.1.13.10 4.2.7.2.686 [id number] 2020-07-28 12:00:00 2020-07-28 12:00:00 Outpatient MODESTO DAVIES [facility] [id number] [facility] 2020-07-15 00:00:00 2020-07-15 00:00:00 Refill Florecita Atkins [facility] Office Building One 1..840.114 350.1.13.10 4.2.7.2.686 [id number] [id number] 2020-07-15 00:00:00 2020-07-15 00:00:00 [facility] 1.2.840.114 350.1.13.10 4.2.7.2.686 [id number] 220 [id number] 2020-07-08 14:00:00 2020-07-08 14:00:00 Outpatient SOFÍA WYLIE [facility] [id number] [facility] 2020-06-30 15:00:00 2020-06-30 15:00:00 [id number] 2020-06-17 00:00:00 2020-06-17 00:00:00 Refill Milly [facility] Building 1..114 350.1.13.10 4.2.7.2.686 [id number] [id number] 2020-06-03 00:00:00 2020-06-03 00:00:00 Orders Only Doctor Unassigned, [place] [facility] 1..114 350.1.13.10 4.2.7.2.686 [id number] [id number] 2020-05-23 00:00:00 2020-05-23 00:00:00 Refill Milly [facility] Building 1..114 350.1.13.10 4.2.7.2.686 [id number] 044 [id number] 2020-05-23 00:00:00 2020-05-23 00:00:00 Telephone Joselito [facility] 1. 350.1.13.10 4.2.7.2.686 [id number] 220 [id number] 2020-05-22 09:00:00 2020-05-22 09:00:00 Outpatient R FLORECITA ATKINS [facility] [id number] [facility] 2020-05-22 07:35:33 2020-05-22 07:50:33 Telemedici ne Visit Milly [facility] Office Building One 1.114 350.1.13.10 4.2.7.2.686 [id number] 044 [id number] 2020-05-21 00:00:00 2020-05-21 00:00:00 Telephone Florecita Atkins [facility] Office Building One 1.114 350.1.13.10 4.2.7.2.686 [id number] 044 [id number] 2020-05-20 09:15:00 2020-05-20 09:15:00 Outpatient FLORECITA LINCOLN [facility] [id number] [facility] 2020-05-20 00:00:00 2020-05-20 00:00:00 Telephone [place] Yee [facility] Building 1.2.840.114 350.1.13.10 4.2.7.2.686 [id number] 220 [id number] 2020-05-19 00:00:00 2020-05-19 00:00:00 Orders Only Doctor Unassigned, [place] [facility] 1.2.840.114 350.1.13.10 4.2.7.2.686 [id number] 009 [id number] 2020-05-15 00:00:00 2020-05-15 00:00:00 Telephone Florecita Atkins [facility] Office Building One 1.2.840.114 350.1.13.10 4.2.7.2.686 [id number] 044 [id number] 2020-05-13 00:00:00 2020-05-13 00:00:00 Telephone Milly [facility] Office Building One 1.2.840.114 350.1.13.10 4.2.7.2.686 [id number] 044 [id number] 2020-05-09 00:00:00 2020-05-09 00:00:00 Telephone Milly [facility] Office Building One 1.2.840.114 350.1.13.10 4.2.7.2.686 [id number] 044 [id number] 2020-05-07 08:30:00 2020-05-07 08:30:00 Outpatient TEA MACKEY [facility] [id number] [facility] 2020-05-05 00:00:00 2020-05-05 00:00:00 Telephone [place] Yee [facility] Building 1.2.840.114 350.1.13.10 4.2.7.2.686 [id number] 220 [id number] 2020-04-14 00:00:00 2020-04-14 00:00:00 [facility] 1.2.840.114 350.1.13.10 4.2.7.2.686 [id number] 220 [id number] 2020-04-14 00:00:00 2020-04-14 00:00:00 Refill Joselito [facility] Building 1.2.840.114 350.1.13.10 4.2.7.2.686 [id number] 220 [id number] 2020-04-11 00:00:00 2020-04-11 00:00:00 Orders Only Doctor Unassigned, [place] [facility] 1.2.840.114 350.1.13.10 4.2.7.2.686 [id number] 2020-04-09 00:00:00 2020-04-09 00:00:00 [facility] 1.2.840.114 350.1.13.10 4.2.7.2.686 [id number] 220 [id number] 2020-04-08 00:00:00 2020-04-08 00:00:00 Telephone Florecita Atkins [facility] Office Building One 1.2.840.114 350.1.13.10 4.2.7.2.686 [id number] 044 [id number] 2020-04-01 00:00:00 2020-04-01 00:00:00 [facility] [id number] 350.1.13.10 4.2.7.2.686 [id number] 2020-03-31 14:30:00 2020-03-31 14:30:00 Outpatient R MODESTO YEE [facility] [id number] [facility] 2020-03-31 13:18:18 2020-03-31 14:18:48 Office Visit Clarisa [facility]eeena [facility] 1..840.114 350.1.13.10 4.2.7.2.686 [id number] 2020-03-31 00:00:00 2020-03-31 00:00:00 Orders Only Doctor Unassigned, [place] [facility] 1..840.114 350.1.13.10 4.2.7.2.686 [id number] 2020-02-20 14:15:00 2020-02-20 14:15:00 Outpatient FLORECITA LINCOLN [facility] [id number] [facility] 2020-02-14 08:00:00 2020-02-14 08:00:00 Outpatient FLORECITA LINCOLN [facility] [id number] [facility] 2020-02-11 13:00:00 2020-02-11 13:00:00 Outpatient V[facility] [id number] [facility] 2020-01-31 09:45:00 2020-01-31 09:45:00 Outpatient FLORECITA LINCOLN [facility] [id number] [facility] 2020-01-02 13:45:00 2020-01-02 13:45:00 Outpatient FLORECITA LINCOLN [facility] [id number] [facility] 2020-01-01 11:00:00 2020-01-01 11:00:00 Outpatient FLORECITA LINCOLN [facility] [id number] [facility] 2019-12-11 10:20:00 2019-12-11 10:20:00 Outpatient Vee [facility] [id number] [facility] 2019-10-08 11:00:00 2019-10-08 11:00:00 Outpatient R LEONARDOSIREDDY, MODESTO [facility] [id number] [facility] 2019-10-02 11:15:00 2019-10-02 11:15:00 Outpatient Vee NETTLESDILMA FLORECITA [facility] [id number] [facility] 2019-09-10 15:30:00 2019-09-10 15:30:00 Outpatient Vee YEE [facility] [id number] [facility] 2019-09-10 12:30:00 2019-09-10 12:30:00 Outpatient Vee YEE [facility] [id number] [facility] 2019-08-28 16:00:00 2019-08-28 16:00:00 Outpatient Vee NETTLESDILMAFLORECITA [facility] [id number] [facility] 2019-08-27 09:05:00 2019-08-27 09:05:00 Outpatient ROSALINDA COOPER [facility] [id number] [facility] 2019-06-11 14:45:00 2019-06-11 14:45:00 Outpatient Vee MCCARTHYOZZYEMERALD [facility] [id number] [facility] 2018-05-03 10:54:00 2018-05-03 10:54:00 [facility]patient [place] [facility] [place] [facility] [id number] [facility] Results Test Description Test Time Test Comments Results Result Co mments Source [facility] [id number] 19:55:02 Ordered by an unspecified provider.[facility] [id number] 08:29:26* Test Item Value Reference Range Interpretation Comme nts T3 (test code = 4361503180) 189.0 ng/dL 97.0-170.0 H Lab Interpretation (test cod e = 07003-6) Abnormal [facility] CenterThyroid Stimulating [id number] 03:41:26 * Test Item Value Reference Range Interpretation Comme nts TSH (test code = 3139224491) 0.45-4.70 L Lab Interpretation (test cod e = 77318-6) Abnormal [facility] with [id number] 03:27:58* Test Item Value Reference Range Interpretation [...] 32.4 g/dL 31.6-35.1 RDW-SD (test code = 05288-1) 43.8 fL 39.0-49.9 RDW-CV (test code = 788-0) 12.7 % 12.0-15.5 PLT (test code = 777-3) 208 166-358 MPV (test code = 78992-3) 11.5 fL 9.5-12.9 NRBC/100 WBC (test code = 2159651175) 0.0 0.0-10.0 NRBC x10^3 (test code = 2880588233) See_Comment [Automated messa ge] The system which generated this result transmitted reference range: 10*3/?L. The reference range was not used to interpret this result as normal/abnormal. GRAN MAT (NEUT) % (test code = 770-8) 50.1 % IMM GRAN % (test code = 0110780691) 0.20 % LYMPH % (test code = 736-9) 40.5 % MONO % (test code = 5905-5) 5.7 % EOS % (test code = 713-8) 2.6 % BASO % (test code = 706-2) 0.9 % GRAN MAT x10^3(ANC) (test code = 7863275065) 2.75 10*3/uL 1.88-7.09 IMM GRAN x10^3 (test code = 5331493789) 0.00-0.06 LYMPH x10^3 (test code = 731-0) 2.22 10*3/uL 1.32-3.29 MONO x10^3 (test code = 742-7) 0.31 10*3/uL 0.33-0.92 L EOS x10^3 (test code = 711-2) 0.14 10*3/uL 0.03-0.39 BASO x10^3 (test code = 704-7) 0.05 10*3/uL 0.01-0.07 Lab Interpretation (test code = 85847-8) [facility]normal [facility] CenterT4 [id number] 03:27:37* Test Item Value Reference Range Interpretation Comme nts FREE T4 (test code = 3580557830) 1.69 0.78-2.20 Lab Interpretation (test cod e = 74956-0) Normal [facility] Center[facility]id Panel (20724)(Total Cholesterol, Triglycerides, HDL)2023-10-04 03:14:28* Test Item Value Reference Range Interpretation Comme nts CHOL (test code = 3838693944) 188 mg/dL 120-200 HDL (test code = 8108265845) 75 mg/dL >=50 HDLC RATIO (test code = 8096579155) 2.5 <=4.5 TRIG (test code = 8864496705) 211 mg/dL 30-170 H LDL CHOL (test code = 70720-5) 71 mg/dL <=160 VLDL (test code = 4670984855) 42 mg/dL 5-60 Lab Interpretation (test cod e = 87508-2) Abnormal [facility] Center[facility]. Metabolic Panel (80828)2023-10-04 03:14:08* Test Item Value Reference Range Interpretation Comme nts NA (test code = 8495781451) 140 mmol/L 135-145 K (test code = 5615162409) 4.5 mmol/L 3.5-5.0 CL (test code = 0610993783) 103 mmol/L 98-108 CO2 TOTAL (test code = 2382366657) 31 mmol/L 23-31 AGAP (test code = 9108785098) 6 2-16 BUN (test code = 5820174881) 13 mg/dL 7-23 GLUCOSE (test code = 0230894602) 95 mg/dL 70-110 CREATININE (test code = 2160-0) 0.70 mg/dL 0.50-1.04 TOTAL BILI (test code = 9600518153) 0.5 mg/dL 0.1-1.1 CALCIUM (test code = 2071881811) 10.1 mg/dL 8.6-10.6 T PROTEIN (test code = 1137321958) 8.3 g/dL 6.3-8.2 H ALBUMIN (test code = 1481489412) 4.6 g/dL 3.5-5.0 ALK PHOS (test code = 4849434073) 104 U/L 34-122 ALTv (test code = 1742-6) 69 U/L 5-35 H AST(SGOT) (test code = 3326403633) 37 U/L 13-40 eGFR (test code = 71950-6) 102.9 mL/min/1.73m2 CKD-EPI eGFR (2020). Assuming creatinine has been stable day-to-day for at least three months, the eGFR indicates Category G1 (>= 90 mL/min/1.73 m2) Lab Interpretation (test code = 66747-1) Abnormal [facility] Hemoglobin A1C [id number] 19:22:00* Test Item Value Reference Range Interpretation Comme [facility] POCT HBA1C (test code = 4548-4) 11.1 % 4-6 A Lab Interpretation (test cod e = 66000-9) Abnormal [facility] Hemoglobin A1C [id number] 19:22:00* Test Item Value Reference Range Interpretation Comme [facility] POCT HBA1C (test code = 4548-4) 11.1 % 4-6 A Lab Interpretation (test cod e = 24844-9) Abnormal [facility] Hemoglobin A1C [id number] 19:22:00* Test Item Value Reference Range Interpretation Comme [facility] POCT HBA1C (test code = 4548-4) 11.1 % 4-6 A Lab Interpretation (test cod e = 89370-6) Abnormal [facility] CenterRADIOLOGY [id number] 18:33:28 Ordered by an unspecified provider.[facility] HEMOGLOBIN A1C [id number] 20:18:00* Test Item Value Reference Range Interpretation Comme [facility] POCT HBA1C (test code = 4548-4) 9.1 % 4-6 A Lab Interpretation (test cod e = 63824-8) Abnormal [facility] CenterPOSC HEMOGLOBIN A1C [id number] 20:18:00* Test Item Value Reference Range Interpretation Comme [facility] POCT HBA1C (test code = 4548-4) 9.1 % 4-6 A Lab Interpretation (test cod e = 45159-9) Abnormal [facility] CenterTSH, THIRD [id number] 04:16:21* Test Item Value Reference Range Interpretation Comme [facility] TSH, THIRD GENERATION (test code = 2821) <0.010 UIU/ML 0.400-4.100 L LIPID [id number] 03:38:28* Test Item Value Reference Range Interpretation [...] SPECIMENS. FOR MOREINFORMATION, SEE CLIENT ANNOUNCEMENT AT [email or web address] RISK RATIO LDL/HDL (test code = 2238) 1.96 RATIO <3.22 COMPREHENSIVE METABOLIC [id number] 03:38:28* Test Item Value Reference Range Interpretation Comme nts GLUCOSE (test code = 2217) 164 MG/DL 70-99 H BUN (test code = 2208) 10 MG/DL 6-20 CREATININE (test code = 2214) 0.77 MG/DL 0.60-1.30 eGFR (2020 CKD-EPI) (test code = 35302) 93 ML/MIN/1.73 >60 CALC BUN/CREAT (test code = 2235) 13 RATIO 6-28 SODIUM (test code = 223) 142 MEQ/L 133-146 POTASSIUM (test code = 2228) 4.3 MEQ/L 3.5-5.4 CHLORIDE (test code = 2215) 101 MEQ/L 95-107 CARBON DIOXIDE (test code = 2206) 25 MEQ/L 19-31 CALCIUM (test code = 2209) 9.7 MG/DL 8.5-10.5 PROTEIN, TOTAL (test code = 2229) 6.9 G/DL 6.1-8.3 ALBUMIN (test code = 2201) 4.0 G/DL 3.5-5.2 CALC GLOBULIN (test code [...] 5-40 UNLESS OTHERWISE INDICATED, ALL TESTING PERFORMED [facility] [address] [place] [address] CABIN MAN: SHIRA RESENDIZ M.D. CLIA NUMBER [id number] [facility] [place]. [id number] COMPREHENSIVE METABOLIC [id number] 00:00:00* Test Item Value Reference Range Interpretation Comme nts GLUCOSE (test code = 2217) 164 MG/DL BUN (test code = 2208) 10 MG/DL CREATININE (test code = 2214) 0.77 MG/DL eGFR (2020 CKD-EPI) (test co de = 74263) 93 ML/MIN/1.73 CALC BUN/CREAT (test code = [...] ALT (test code = 2219) 24 U/L [id number] 00:00:00* Test Item Value Reference Range Interpretation Comme nts TSH, THIRD GENERATION (test code = 2821) <0.010 UIU/ML LIPID [id number] 00:00:00* Test Item Value Reference Range Interpretation Comme nts CHOLESTEROL (test code = 2210) 183 MG/DL TRIGLYCERIDES (test code = 2232) 328 MG/DL HDL CHOLESTEROL (test code = 2220) 47 MG/DL CALC LDL CHOL (test code = 2237) 92 MG/DL RISK RATIO LDL/HDL (test cod e = 2238) 1.96 RATIO HEMOGLOBIN [id number] 03:17:10* Test Item Value Reference Range Interpretation Comme nts HEMOGLOBIN A1c (test code = 81202) 10.6 % 4.2-5.6 H [employer] GUIDELINES FOR HGB A1C: [...] CONSIDER ALTERNATE TESTING OR LABORATORY CONSULTATION. HEMOGLOBIN [id number] 00:00:00* Test Item Value Reference Range Interpretation Comme [facility] HEMOGLOBIN A1c (test code = 93350) 10.6 % HCV RNA, PCR QUANT [REFLEX]2018-06-05 00:00:00* Test Item Value Reference Range Interpretation Comme nts HCV RNA, PCR QUANT (test code = 4571) NOT DETEC IU/ML HCV VIRAL LOG (test code = 08014) NOT DETEC LOGIU/ML [id number] 00:00:00* Test Item Value Reference Range Interpretation Comme nts TSH, THIRD GENERATION (test code = 2821) <0.010 UIU/ML URINALYSIS W/REFLEX [id number] 00:00:00* Test Item Value Reference Range Interpretation [...] code = 1512) NEGATIVE MICROALBUMIN/CREATININE, RANDOM AND [id number] 00:00:00* Test Item Value Reference Range Interpretation Comme nts CREATININE, URINE, CONC. (te st code = 2072) 24.6 MG/DL ALBUMIN, URINE, RANDOM (test code = 99275) 0.4 MG/DL CALC ALBUMIN/CREAT, RND (mónica t code = 19391) 16 MG/G HEPATITIS PROFILE (A,B,C)2018-06-02 00:00:00* Test [...] 4675) REACTIVE HCV INDEX (test code = 32290) 10.17 INTERPRETATION HEPATITIS A: (test code = 2552) (NOTE) INTERPRETATION HEPATITIS B: (test code = 52276) (NOTE) INTERPRETATION HEPATITIS C: (test code = 22602) (NOTE) HIV AB/AG COMBO RFLX [id number] 00:00:00* Test Item Value Reference Range Interpretation Comme nts HIV 1/2 4TH GEN, RFLX CONF ( test code = 3514) NON-REACTIVE HEPATITIS C REFLEX [id number] 00:00:00* Test Item Value Reference Range Interpretation Comme nts HEPATITIS C ANTIBODY (test c ode = 4675) REACTIVE HCV INDEX (test code = 79299) 10.17 HEPATITIS A IgM [REFLEX]2018-06-02 00:00:00* Test Item Value Reference Range Interpretation Comme nts HEPATITIS A IgM (test code = 2728) NON-REACTIVE CBC W/AUTO [id number] 00:00:00* Test Item Value Reference Range Interpretation [...] COMMENTS (test code = 1016) (NOTE) HEMOGLOBIN [id number] 00:00:00* Test Item Value Reference Range Interpretation Comme nts HEMOGLOBIN A1c (test code = 52255) 10.0 % COMPREHENSIVE METABOLIC [id number] 00:00:00* Test Item Value Reference Range Interpretation Comme nts GLUCOSE (test code = 2217) 580 MG/DL BUN (test code = 2208) 16 MG/DL CREATININE (test code = 2214) 0.91 MG/DL eGFR AMER. (test cod e = 96735) 86 ML/MIN/1.73 eGFR NON- AMER. (test code = 93630) 75 ML/MIN/1.73 CALC BUN/CREAT (test code = [...] 15 U/L Notes Date/Time Note Provider Source 2024-08-16 11:02:37 Referral pending, please review and sign if appropriate [facility] 2024-08-16 10:15:40 Patient coming in 08/20 needs referall please assist Natalie Sanford [facility] 2024-08-13 16:15:00 Patient left without being seen Tracey Martinez [facility] 2024-07-26 10:24:58 [facility] to update pt on needing appt for refills and if any other concerns to f/u with PCP. Aileen Mobley [facility] 2024-07-26 09:40:36 JUAN 10/03/2023 Was supposed to fu 12/2023 Needs appt, routed to pss for appt Delia Scanlon RN [facility] 2024-05-18 08:20:10 Refill has been sent to pharmacy on file. MASTER CERTIFIED RV TECHNICIAN Delia Scanlon RN [facility] 2024-05-17 14:52:26 Roya Fitzpatrick is a 53 year old female is calling for a refill on her insulin degludec (TRESIBA FLEXTOUCH U-200) 200 unit/mL (3 mL) In and states she is out of this medication. Pt is asking for a refill since her next appt won't be until 08-13-24. Please advise the pt with any updates. Future Appointments Date Time Provider Department Center 08/13/2024 3:30 PM Val Preston MD [facility]/pharmacy #[id number] AT [place] [address] [facility] 2024-04-30 11:14:21 Recent Visits Date Type Provider Dept 10/26/23 [...] and meeting all other requirements Future Appointments Date Type Provider Dept 05/02/24 Appointment Florecita Atkins MD [facility] Showing future appointments within next 150 days with a meds authorizing provider and meeting all other requirements Last refill was Disp Refills Start End [facility] ZOLPIDEM 10 mg tablet 30 tablet 0 03/05/2024 -- No Disp Refills Start End [facility] methIMAzole 5 mg tablet 90 tablet 3 05/04/2023 Disp Refills Start End [facility] QUETIAPINE 300 mg tablet 180 tablet 3 03/25/2023 -- [facility] 2024-04-27 15:46:20 Refill has been sent to pharmacy on file. Recent Visits Date Type Provider Dept 10/26/23 Office Visit Amarilys Jerez FNP [facility] 10/03/23 Office Visit Val Preston MD [facility] 08/19/23 Office Visit Nini Mendenhall PA [facility] 07/20/23 Office Visit Florecita Atkins MD [facility] 05/04/23 Office Visit Florecita Atkins MD [facility] Showing recent visits within past 540 days with a meds authorizing provider and meeting all other requirements Future Appointments Date Type Provider Dept 05/02/24 Appointment Florecita Atkins MD [facility] 08/13/24 Appointment Val Preston MD [facility] Showing future appointments within next 150 days with a meds authorizing provider and meeting all other requirements [facility] Delia Scanlon RN [facility] 2024-04-10 09:47:10 Recent Visits Date Type Provider Dept 10/26/23 [...] meeting all other requirements Last refill was ZOLPIDEM 10 mg tablet 30 tablet 0 03/05/2024 -- No Sig: TAKE 1 TABLET BY MOUTH EVERY DAY AT BEDTIME NEEDED FOR INSOMNIA [facility] 2024-04-05 13:49:49 Images from the original note were not included. Notes: Name from pharmacy: METOCLOPRAMIDE 10 MG TABLET Will file in chart as: METOCLOPRAMIDE HCL 10 mg tablet Sig: TAKE 1 TABLET BY MOUTH IN THE MORNING AT NOON AND IN THE EVENING Disp: 90 tablet Refills: 0 (Pharmacy requested: Not specified) Start: 04/04/2024 Class: eRX For: Gastroesophageal reflux disease without esophagitis To pharmacy: DX Code Needed . Last ordered: 1 month ago (02/21/2024) by Florecita Atkins MD Last refill: 02/21/2024 Rx #: [id number] Anti-nausea Lliaze6504/04/2024 05:29 PM Protocol Details This refill cannot be delegated Manual Review: Women's Health providers only allowed to refill requests. Valid encounter within last 12 months To be filled at: [facility]/pharmacy #[id number] - [address] Recent Visits Date Type Provider Dept [...] authorizing provider and meeting all other requirements [facility] Bindu Villalobos MA [facility] 2024-03-07 16:22:17 Addended by: FLORECITA ATKINS MD on: 03/07/2024 04:22 PM Modules accepted: Orders [facility] 2024-03-07 14:44:57 Please forward to PCP [facility] 2024-03-07 07:40:22 Routed to provider for refill authorization. [facility] Delia Scanlon RN [facility] 2024-03-05 16:04:03 Images from the original note were not included. Liu [facility] 2024-03-05 11:51:14 Recent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
--- NOTE | 2024-08-26 16:08 | ER ---
Nurse's Notes [facility] Name: Roya Anne Age: 54 yrs Sex: Female : 1970 Arrival Date: 08/26/2024 Time: 15:21 Bed 16 Private MD: Diagnosis: Sebaceous cyst Presentation: 08/26 15:25 Chief complaint: Patient states: abscess to R anterior chest wall that began 4 days ss ago. Coronavirus screen: Client denies travel out of the [place] in the last 14 days. Ebola Screen: Patient denies exposure to infectious person. Patient denies travel to an Ebola-affected area in the 21 days before illness onset. Initial Sepsis Screen: Does the patient meet any 2 criteria? No. Patient's initial sepsis screen is negative. Does the patient have a suspected source of infection? No. Patient's initial sepsis screen is negative. Risk Assessment: Do you want to hurt yourself or someone else? Patient reports no desire to harm self or others. Onset of symptoms was August 23, 2024. 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 - Infectious Disease History:: Denies. - Social history:: Smoking status: Reported history of juuling and/or vaping. Screenin:20 [facility] ED Fall Risk Assessment (Adult) History of falling in the last 3 months, ll1 including since admission No falls in past 3 months (0 pts) Confusion or Disorientation No (0 pts) Intoxicated or Sedated No (0 pts) Impaired Gait No (0 pts) Mobility Assist Device Used No (0 pt) Altered Elimination No (0 pt) Score/Fall Risk Level 0 - 2 = Low Risk Maintained a safe environment, Hourly rounding (assess needs \T\ fall precautionary measures) done. Abuse screen: Denies threats or abuse. Nutritional screening: No deficits noted. Tuberculosis screening: No symptoms or risk factors identified. Assessment: 16:19 General: Appears in no apparent distress. Behavior is calm, cooperative, appropriate ll1 for age. Pain: Complains of pain in R chest Quality of pain is described as aching. Derm: Abscess located on R chest Reports. Vital Signs: 15:25 BP 90 / 56; Pulse 91; Resp 16; Temp 98.5(O); Pulse Ox 100% on R/A; Weight 65.32 kg; ss Height 5 ft. 2 in. ; Pain 10/10; 15:25 Body Mass Index 26.34 (65.32 kg, 157.48 cm) ss 15:25 Pain Scale: Adult ss ED Course: 15:22 Patient arrived in ED. mr 15:22 [facility]-C [facility] 15:22 Javier Anne MD is Attending Physician. dr5 15:26 Triage completed. ss 15:27 Arm band placed on right wrist. ss 16:04 Christelle Lau, RN is Primary Nurse. kj2 16:07 Julio C Bran MD is Referral Physician. dr5 16:21 Patient has correct armband on for positive identification. Provided Education on: ll1 return to ED for worsening symptoms, CAN STRIPER aware of vitals. 16:21 No provider procedures requiring assistance completed. Patient did not have IV access ll1 during this emergency room visit. Administered Medications: No medications were administered Medication: 16:21 VIS not applicable for this client. ll1 Outcome: 16:08 Discharge ordered by . dr5 16:21 Discharged to home ambulatory, ll1 16:21 Condition: stable 16:21 Discharge instructions given to patient, Instructed on discharge instructions, follow up and referral plans. medication usage, Demonstrated understanding of instructions, follow-up care, medications, Prescriptions given X 2, 16:22 Patient left the ED. ll1 Signatures: Hayley Ferreira, Reg Reg Louisa Malave, RN RN ss Stef Vega RN RN ll1 Christelle Lau RN RN kj2 Subhash Avila FNP-C FNP-Cdr5
--- NOTE | 2024-08-26 16:08 | EDPHYS ---
Physician Documentation [facility] Name: Roya Anne Age: 54 yrs Sex: Female : 1970 Arrival Date: 08/26/2024 Time: 15:21 Bed 16 Private MD: ED Javier Melendrez HPI: 08/26 17:03 This 54 yrs old Female presents to ER via Ambulatory with complaints of dr5 Abscess to right chest for the past three days. 17:03 The patient presents with cellulitis of the anterior aspect of right upper chest, the dr5 patient presents with a swollen area of the anterior aspect of right upper chest. Patient is a 54-year-old female with history of neuropathy, schizophrenia, and diabetes coming in with 3 days of quickly increasing right cellulitis on right chest. Patient denies fever and denies any drainage from wound.. 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 - Infectious Disease History:: Denies. - Social history:: Smoking status: Reported history of juuling and/or vaping. ROS: 17:03 Constitutional: as per hpi dr5 Exam: 17:03 Constitutional: This is a well developed, well nourished patient who is awake, alert, dr5 and in no acute distress. Head/Face: Normocephalic, atraumatic. Eyes: Pupils equal round and reactive to light, extra-ocular motions intact. Lids and lashes normal. Conjunctiva and sclera are non-icteric and not injected. Cornea within normal limits. Periorbital areas with no swelling, redness, or edema. Neck: Trachea midline, no thyromegaly or masses palpated, and no cervical lymphadenopathy. Supple, full range of motion without nuchal rigidity, or vertebral point tenderness. No Meningismus. Chest/axilla: Normal chest wall appearance and motion. Nontender with no deformity. No lesions are appreciated. Cardiovascular: Regular rate and rhythm with a normal S1 and S2. Normal PMI, no JVD. No pulse deficits. Respiratory: Lungs have equal breath sounds bilaterally, clear to auscultation. No rales, rhonchi or wheezes noted. No increased work of breathing, no retractions or nasal flaring. Back: No spinal tenderness. No costovertebral tenderness. Full range of motion. Skin: Warm, dry with normal turgor. Normal color with no rashes. Erythematous lesion / cyst noted to right chest with tenderness to palpation. MS/ Extremity: Pulses equal, no cyanosis. Neurovascular intact. Full, normal range of motion. Vital Signs: 15:25 BP 90 / 56; Pulse 91; Resp 16; Temp 98.5(O); Pulse Ox 100% on R/A; Weight 65.32 kg; ss Height 5 ft. 2 in. ; Pain 10/10; 15:25 Body Mass Index 26.34 (65.32 kg, 157.48 cm) ss 15:25 Pain Scale: Adult ss MDM: 15:23 Medical Screening Exam initiated dr5 17:06 Differential diagnosis: abscess, allergic reaction, cellulitis. Data reviewed: vital dr5 signs, nurses notes. Care significantly affected by the following chronic conditions: Diabetes, Neuropathy, Schizophrenia, DM. Care significantly affected by the following Social Determinants of Health: Poor access to healthcare and/or lack of insurance, Poor access to transportation, Problems related to employment. Counseling: I had a detailed discussion with the patient and/or guardian regarding the historical points, exam findings, and any diagnostic results supporting the discharge/admit diagnosis, the presence of at least one elevated blood pressure reading (>120/80) during this emergency department visit, the need for outpatient follow up, for definitive care, a family practitioner, a general surgeon, to return to the emergency department if symptoms worsen or persist or if there are any questions or concerns that arise at home. ED course: Likely infected sebaceous cyst - will cover with abx and have patient follow up with PCP / surgery for removal of sebaceous cyst after infection has resolved. Patient is agreeable plan and all questions answered. Strict ER precautions given. Recommend Tylenol and Motrin as here for pain.. Administered Medications: No medications were administered Disposition: 22:18 Co-signature as Attending Physician, Javier Anne MD I agree with the assessment and marianne plan of care. Disposition Summary: 08/26/24 16:08 Discharge Ordered Notes: Location: Home dr5 Condition: Stable dr5 Diagnosis - Sebaceous cyst dr5 Followup: dr5 - With: Emergency Department - When: As needed - Reason: Worsening of condition Followup: dr5 - With: Julio C Bran MD - When: 1 - 2 days - Reason: Recheck today's complaints, Continuance of care, Re-evaluation by your physician Discharge Instructions: - Discharge Summary Sheet dr5 - Epidermoid Cyst, [id number] dr5 Forms: - Medication Reconciliation Form dr5 - Antibiotic Education dr5 - Prescription Opioid Use dr5 - Patient Portal Instructions dr5 - Leadership Thank You Letter dr5 Prescriptions: - Cephalexin 500 mg Oral Capsule - take 1 capsule ORAL route every 12 hours for 10 days; 20 capsule; Refills: 0, dr5 Product Selection Permitted - Bactrim DS 800-160 mg Oral Tablet - take 1 tablet ORAL route every 12 hours for 7 days; 14 tablet; Refills: 0, dr5 Product Selection Permitted Signatures: Javier Anne MD MD cha Blanchard, Shelby RN RN ss Stef Vega RN RN ll1 Subhash Avila, FULL STACK ENGINEER-C FULL STACK ENGINEER-Cdr5 Corrections: (The following items were deleted from the chart) 17:07 17:03 Constitutional: This is a well developed, well nourished patient who is awake, dr5 alert, and in no acute distress. Head/Face: Normocephalic, atraumatic. Eyes: Pupils equal round and reactive to light, extra-ocular motions intact. Lids and lashes normal. Conjunctiva and sclera are non-icteric and not injected. Cornea within normal limits. Periorbital areas with no swelling, redness, or edema. Neck: Trachea midline, no thyromegaly or masses palpated, and no cervical lymphadenopathy. Supple, full range of motion without nuchal rigidity, or vertebral point tenderness. No Meningismus. Chest/axilla: Normal chest wall appearance and motion. Nontender with no deformity. No lesions are appreciated. Cardiovascular: Regular rate and rhythm with a normal S1 and S2. Normal PMI, no JVD. No pulse deficits. Respiratory: Lungs have equal breath sounds bilaterally, clear to auscultation. No rales, rhonchi or wheezes noted. No increased work of breathing, no retractions or nasal flaring. Back: No spinal tenderness. No costovertebral tenderness. Full range of motion. Skin: Warm, dry with normal turgor. Normal color with no rashes, no lesions, and no evidence of cellulitis. MS/ Extremity: Pulses equal, no cyanosis. Neurovascular intact. Full, normal range of motion. dr5
[2024-08-26 16:49] VITALS: BP 90/56; TEMP 98.5; O2SAT 100
== END 2024-08-26 16:22 | disposition home or self-care (01) ==
LOC: ER 15:21
DX: L72.3 Sebaceous cyst (principal)
CPT/HCPCS: 99283